=== PATIENT | male | born 1945 | race Caucasian/White ===

== ENCOUNTER → 2018-02-24 15:18 | Outpatient (CLI) | payer MEDICARE, OTHER, SELFPAY ==
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
== END ==
PROVIDERS: Family Provider Family Medicine; PCP Family Medicine; Visit Provider Surgery
DX: K22.70 Barrett's esophagus without dysplasia (principal)
CPT/HCPCS: 93005; 99213

== ENCOUNTER 2018-04-01 06:44 | Day surgery (SDC) | payer MEDICARE, OTHER, SELFPAY ==
[2018-04-01] VITALS (7 sets, daily range): BP systolic 104–139; BP diastolic 65–77; PULSE 68–78; RESP 12–16; TEMP 36.1–36.2; O2SAT 91–95; BMI 36.0
--- NOTE | 2018-04-01 | PATH_ITS ---
[facility] Accession Number: [id number] . 01 Material submitted: . PART A: ANTRUM PART B: GE JUNCTION PART C: ESOPHAGEAL LESION AT 18CM . 02 Diagnosis: A. Stomach, Antrum, Biopsy: Antral mucosa with no diagnostic abnormality. No evidence of Helicobacter on H/E stain. Negative for intestinal metaplasia. Negative for dysplasia and malignancy. . B. Gastroesophageal Junction, Biopsy: Squamocolumnar junctional mucosa with no diagnostic abnormality. Negative for intestinal metaplasia. Negative for dysplasia or malignancy. . C. Esophagus, Lesion at 18 CM, Biopsy: Squamocolumnar junctional mucosa with mild active inflammation. Negative for intestinal metaplasia. Negative for dysplasia and malignancy. [facility]/04/02/2018 . 02 Electronically signed: . Emma Lorenz MD, Pathologist NPI- [id number] . 01 Gross description: . Received are three formalin-filled containers, each labeled with the patient's name: . A. In a container labeled 1. Antrum, the specimen consists of four fragments of duran, soft tissue which range in size from less than 0.1 cm to 0.3 x 0.3 x 0.2 cm. All fragments are totally submitted in cassette A. B. In a container labeled GE junction #2, the specimen consists of multiple less than 0.1 cm to 0.3 cm portions of tissue, entirely submitted in cassette B. C. In a container labeled 3. Esophageal lesion 18 cm, the specimen consists of four pieces of tissue which range in size from 0.1 cm to 0.3 cm. The specimen is entirely submitted in cassette C. ([id number]) /FRR . 02 Pathologist provided ICD-10: R13.10 . 02 CPT . 814484, 582274, 695428 Performed at: 01 [facility] [address] [id number] MD Hipolito Estrada MD Phone: [phone] Performed at: 02 [facility] [address] [place], [place] [id number] MD Juaquin Caputo MD Phone: [phone]
--- NOTE | 2018-04-01 06:55 | P.HP_ITS ---
History of Present Illness Date Patient Seen: 04/01/18 Time Patient Seen: 06:51 Chief complaint: [id number] Narrative: 72-year-old male with history of Miller's esophagus and personal history of colon polyps now requiring surveillance for both. He was recently seen in the office on February 24, 2018. Please refer that history and physical examination as documented. It has not changed nor has his complaints. He presents now for planned EGD and colonoscopy under anesthesia. He requires anesthesia because of his significant comorbid medical conditions including significant anxiety disorder, chronic pain disorder requiring opioid dependence , and labile hypertension. Furthermore, he has failed attempts at conscious sedation in the past during endoscopy procedures. He denies any nausea or vomiting. No change in bowel habits. No melena, hematochezia, or bright red blood per rectum. Patient History Medical History Arthritis (Chronic Unknown) Chronic pain syndrome (Chronic Unknown) Depression (Chronic Unknown) Hypertension (Chronic Unknown) Impotence (Chronic Unknown) Migraines (Chronic Unknown) PTSD (post-traumatic stress disorder) (Chronic Unknown) Restless leg syndrome (Chronic Unknown) Hepatitis C (Resolved Unknown) Kidney stones (Resolved Unknown) Pneumonia (Resolved ~2018) Prostate cancer (Resolved Unknown) Skin cancer (Resolved Unknown) Surgical History History of carpal tunnel repair History of tonsillectomy Status post cholecystectomy Status post knee surgery Family & Social History Family History: Reviewed 04/01/18 by Silas Kincaid MD Tobacco & Substance use: Smoking Status Former smoker Meds Home Medications Medication Instructions Recorded Confirmed Type prednisone 20 mg PO PRN PRN #0 02/11/17 03/11/18 History ketoconazole [Nizoral] 1 [place] TOPICAL Q WEEK #120 ml 06/12/17 03/11/18 Rx albuterol sulfate 3 ml INH Q6HP PRN #90 ea 08/27/17 03/11/18 Rx fluticasone 1 spray INTRANASAL BID #1 bot 12/09/17 03/11/18 Rx benzonatate [Tessalon Perles] 100 mg PO TIDP PRN #30 cap 12/20/17 03/11/18 Rx losartan [Cozaar] 100 mg PO Q DAY #90 tab 01/21/18 03/11/18 Rx metoprolol succinate [Toprol XL] 100 mg PO QDAY #90 tab 01/21/18 03/11/18 Rx amlodipine 10 mg tablet 10 mg PO QDAY IN PM #90 tab 02/25/18 03/11/18 Rx fluoxetine 10 mg tablet 10 mg PO Q DAY #90 tab 03/11/18 Rx fluoxetine 20 mg capsule 20 mg PO QDAY #90 cap 03/11/18 Rx hydrochlorothiazide 12.5 mg capsule 12.5 mg PO DAILY #30 cap 03/11/18 Rx omeprazole 40 mg capsule,delayed 40 mg PO Q DAY #90 cap 03/11/18 Rx release oxycodone 10 mg tablet 10 mg PO Q6-8H PRN #120 tab 03/11/18 Rx beclomethasone diprop 80 1 puff INHALATION BID #10.6 gram 03/18/18 Rx mcg/actuation HFA breath activated aerosol lorazepam 1 mg tablet 0.5 - 1 mg PO BIDP PRN #30 tab 03/18/18 Rx methocarbamol 500 mg tablet 500 mg PO TIDP PRN #30 tab 03/18/18 Rx cyclobenzaprine 10 mg tablet 10 mg PO Q12H #60 tab 03/25/18 Rx Allergies Allergy/AdvReac Type Severity Reaction Status Date / Time acetaminophen [ACETAMINOPHEN] AdvReac Unknown Can't take Verified 03/11/18 15:56 r/t Hep C cyclobenzaprine AdvReac Unknown Dizziness Verified 03/11/18 15:56 [CYCLOBENZAPRINE] Review of Systems Review of Systems All systems reviewed & are unremarkable except as noted in HPI and below Exam Narrative Exam Narrative: Elderly male in no acute distress. Alert oriented x3. Moderately obese. Sclera nonicteric Chest clear to auscultation but diminished inspiratory effort Abdomen is obese but soft and nondistended Extremities show no clubbing or cyanosis Objective Labs Labs: No changes since his history physical examination of February 24, 2018 Assessment & Plan Plan: Assessment/Plan Narrative: 72-year-old male with history of Miller's esophagus and personal history of colon polyps requiring surveillance for both issues. EGD and colonoscopy are again recommended. Technical details of the procedures were discussed with the patient at length. Risks, benefits, and alternatives were reiterated. Again, these have been documented as of the history physical examination on the chart dated February 24, 2018. Bowel prep has been completed. Consent is on the chart. He requires anesthesia for the reasons given above. We will proceed today as planned.
--- NOTE | 2018-04-01 07:02 | PM.PREOP ---
Pre-operative Note Interval Note Pre-op Check: History & Physical Reviewed by Physician, Exam Performed and History & Physical exam performed today H&P completed within 30 days and has changed as indicated here:: Patient once again seen and examined. History and physical examination from February 24, 2018 has not changed. Document has been updated and placed on the chart today. Proceed with EGD and colonoscopy under anesthesia today as planned.
[2018-04-01] MEDS: LACTATED RINGERS 1,000 ML 42 ML IV (07:51)
[2018-04-01] MEDS: TETRACAINE/BENZOCAINE/BUTAMBEN (CETACAINE) BOTTLE 1 SPRAY TOP (08:11)
[2018-04-01] MEDS: LIDOCAINE 4% SOLN 50 ML TOP (08:13)
--- NOTE | 2018-04-01 09:11 | P.OP_ITS ---
Operative Date/Time/Diagnoses - Date of procedure: 04/01/18 Time of procedure: 09:05 Pre-op diagnosis: History of Miller's esophagus, progressive reflux symptoms, and personal history colon polyps requiring surveillance Post-op diagnosis: other (1. Mild gastritis and esophagitis 2. Normal colon and rectum) Procedure & Clinicians Procedure: 1. Esophagogastroduodenoscopy with cold forceps biopsies 2. Colonoscopy Same procedure as scheduled: Yes Indications: 72-year-old male with history of Miller's esophagus and reflux disease now with progressive heartburn symptoms. He also has a personal history of colon polyps. He was recommended to undergo surveillance for both issue since it has been a number of years from his prior examination. EGD and colonoscopy were recommended. Because of his significant comorbid medical conditions including chronic opioid dependence for pain syndrome and prior failure of conscious sedation he required anesthesia services for the procedure. Surgeon: Silas Kincaid Click Yes if Unassisted: Yes Anesthesia Type: General Operative Notes Findings: 1. Mild diffuse gastritis of the antrum and pyloric channel 2. Normal duodenum without ulcers, STRICTURE, OR DUODENITIS 3. Mild esophagitis at the gastroesophageal junction but no obvious neoplasm or Miller's esophagus 4. Z-line located at 38 cm from the incisors 5. Small superficially ulcerated lesion 18 cm from the incisors at the mid esophagus. Biopsies performed. 6. Very small hiatal hernia, clinically insignificant 7. Tortuous colon but otherwise normal without evidence of colitis, strictures , or neoplastic changes of any kind including polyps 8. Normal internal hemorrhoids on retroflexed view Closure Type: not applicable Specimen(s): other (1. Antral biopsies 2. Gastroesophageal junction biopsies 3. Esophageal lesion at 18 cm) Implants & Drains: None Estimated Blood Loss (mL): 5 Blood products transfused: none Procedure in detail: After obtaining informed consent the patient was brought to the operating room and left supine on the gurney. Anesthesia was performed. Please see their record for details. Patient was placed in left lateral decubitus position after the oropharynx was anesthetized and a bite block was inserted. Gastroscope was placed over the tongue to the oropharynx and the upper esophageal sphincter was identified and easily intubated. Under direct visualization of the esophageal lumen the scope was advanced into the stomach which was insufflated with air. Pylorus was grossly normal and widely patent. Duodenum was easily examined after intubating the pylorus. Scope was advanced to the distal 2nd portion. Scope was slowly withdrawn and the duodenum was meticulously and circumferentially examined. Scope was withdrawn back into the stomach where retroflexed view was performed. Findings are as above. Stomach was decompressed with suction as much as possible. Scope was withdrawn back into the esophagus which was meticulously and circumferentially examined as the scope was slowly withdrawn. Biopsies were taken as above. Hemostasis was verified. Scope was removed through the mouth and a bite block was removed as well. This portion of the procedure was terminated. Digital rectal examination revealed no masses. Colonoscope was inserted into the rectum and the bowel was insufflated with air. Under direct visualization of the colonic lumen the scope was advanced to the cecum where the appendiceal orifice and ileocecal valve were identified. Scope was slowly withdrawn and the bowel was meticulously and circumferentially examined. Bowel preparation was good. Findings are as above. Retroflexed view of the distal rectum and anus revealed no neoplasms. Scope was withdrawn and the procedure terminated. Patient taken recovery in stable condition. Complications: none Condition: stable Disposition: PACU Plan for aftercare: 1. Discharge to home 2. Follow up in surgery Clinic in 2 weeks to discuss findings and biopsy results
== END 2018-04-01 09:38 | disposition home or self-care (01) ==
PROVIDERS: Family Provider Family Medicine; PCP Family Medicine; Visit Provider Surgery
PROC: 0DJ08ZZ Inspection of Upper Intestinal Tract, Via Natural or Artificial Opening Endoscopic (ICD-10-PCS; CPT 43235; principal; 2018-04-01 07:45)
PROC: 0DJD8ZZ Inspection of Lower Intestinal Tract, Via Natural or Artificial Opening Endoscopic (ICD-10-PCS; CPT 45378; 2018-04-01 07:45)
DX: Z86.010 Personal history of colon polyps (principal); Z87.19 Personal history of other diseases of the digestive system; K29.70 Gastritis, unspecified, without bleeding; K44.9 Diaphragmatic hernia without obstruction or gangrene; K20.9 Esophagitis, unspecified; F11.20 Opioid dependence, uncomplicated; G89.4 Chronic pain syndrome
CPT/HCPCS: 43239; G0105; J2250; J2704; J3010

== ENCOUNTER → 2018-05-12 06:55 | Outpatient (CLI) | payer MEDICARE, OTHER, SELFPAY ==
[2018-05-12 09:30] LABS: Hemoglobin A1C% w Est Avg Glu 5.2 % (4.0-6.0)
[2018-05-12 09:34] LABS: Alanine Aminotransferase 30 IU/L (21-72); Albumin 4.2 g/dL (3.5-5.0); Albumin Globulin Ratio 1.7 (1.0-2.8); Alkaline Phosphatase 76 U/L (38-126); Aspartate Aminotransferase 26 IU/L (17-59); BUN Creatinine Ratio 18.8 (6-22); Bilirubin Total 0.4 mg/dL (0.2-1.3); Blood Urea Nitrogen 15 mg/dL (9-20); Carbon Dioxide 35 mmol/L (22-32); Chloride 98 mmol/L (98-107); Estimated Glomerular Filt Rate > 60.0 mL/min (>60); Globulin 2.5 g/dL (1.7-4.1); Glucose 98 mg/dL (80-110); HEMOLYSIS < 15 (0-50); Potassium 5.1 mmol/L (3.4-5.1); Sodium 140 mmol/L (137-145); Total Protein 6.7 g/dL (6.3-8.2)
== END ==
PROVIDERS: PCP Family Medicine; Visit Provider Family Medicine
DX: R73.9 Hyperglycemia, unspecified (principal)
CPT/HCPCS: 36415; 80053; 83036

== ENCOUNTER 2018-09-12 19:46 | Emergency (ER) | payer MEDICARE, OTHER, SELFPAY ==
[2018-09-12 19:56] VITALS: BP 117/71; PULSE 92; RESP 18; TEMP 36.3; O2SAT 94; BMI 36.0
[2018-09-12 22:06] VITALS: PULSE 72
--- NOTE | 2018-09-12 22:10 | PC.NURSE ---
Pt reports 30 year Hx of RA with multiple joint replacements. He states he went to RA clinic today and was refereed to urgent care. Urgent care states they don't do injections and returned to RA clinic. RA clinic refereed him to ER. He presents tearful and guarding left hand/wrist. Denies other symptoms at this time.
--- NOTE | 2018-09-12 22:29 | ED.EXTPRO ---
HPI - Extremity Problem General Chief complaint: Extremity Problem,Nontraumatic Stated complaint: RA PAIN LEFT HAND AND ARM Time Seen by Provider: 09/12/18 21:59 Source: patient Mode of arrival: ambulatory Limitations: no limitations History of Present Illness HPI Narrative: Patient is a 72-year-old male who presents with left hand pain. He has a history of rheumatoid arthritis right is. He says usually when he gets flares he takes prednisone for 5 days. He usually 20 mg however he only had a now for 1 and half days. His pain today is gotten significantly worse. He has no fever. He went to his rheumatology clinic today were unable to see him he was sent to the walk-in clinic for a wrist injection unfortunately they do not inject wrist or joints. He also all weaned himself off Suboxone 2 weeks ago. MD Complaint: extremity pain and extremity swelling Related Data Home Medications Medication Instructions Recorded Confirmed prednisone 20 mg PO PRN PRN #0 02/11/17 07/22/18 Previous Rx's Medication Instructions Recorded albuterol sulfate 3 ml INH Q6HP PRN #90 ea 08/27/17 benzonatate [Tessalon Perles] 100 mg PO TIDP PRN #30 cap 12/20/17 fluoxetine 10 mg tablet 10 mg PO Q DAY #90 tab 03/11/18 beclomethasone diprop 80 1 puff INHALATION BID #10.6 gram 03/18/18 mcg/actuation HFA breath activated aerosol fluticasone 50 mcg/actuation nasal 1 spray INTRANASAL BID #1 bot 06/09/18 spray,suspension ketoconazole 2 % shampoo 1 applictn TOPICAL Q WEEK #120 ml 06/09/18 losartan 100 mg tablet 100 mg PO Q DAY #90 tab 07/15/18 metoprolol succinate ER 100 mg 100 mg PO QDAY #90 tab 07/15/18 tablet,extended release 24 hr amlodipine 10 mg tablet 10 mg PO QDAY IN PM #90 tab 08/27/18 hydrochlorothiazide 12.5 mg capsule 12.5 mg PO DAILY #90 cap 08/27/18 fluoxetine 20 mg capsule 20 mg PO QDAY #90 cap 09/08/18 lorazepam 1 mg tablet 0.5 - 1 mg PO DAILY PRN #30 tab 09/08/18 methocarbamol 500 mg tablet 500 mg PO TIDP PRN #40 tab 09/08/18 omeprazole 40 mg capsule,delayed 40 mg PO Q DAY #90 cap 09/08/18 release oxycodone 10 mg tablet 10 mg PO Q6-8H PRN #120 tab 09/08/18 prednisone 20 mg PO DAILY #10 tab 09/12/18 Allergies Allergy/AdvReac Type Severity Reaction Status Date / Time cyclobenzaprine Allergy Verified 09/12/18 19:58 [From Flexeril] acetaminophen [ACETAMINOPHEN] AdvReac Unknown Can't take Verified 09/12/18 19:58 r/t Hep C Review of Systems Review of Systems All systems reviewed & are unremarkable except as noted in HPI and below Constitutional Denies chills, Denies fever(s), Denies lethargy and Denies weakness Cardiovascular Denies chest pain, Denies irregular heart rhythm, Denies lightheadedness, Denies palpitations, Denies dyspnea, Denies dyspnea on exertion and Denies orthopnea Respiratory Denies cough, Denies dyspnea, Denies dyspnea on exertion and Denies wheezing Musculoskeletal Reports as per HPI, Reports arthralgias, Reports joint swelling, Denies numbness and Reports stiffness Integumentary/Breasts Denies pruritus, Denies erythema, Denies rash and Denies wounds Neurologic Denies numbness and Denies weakness Endocrine Denies palpitations Allergic/Immunologic Denies wheezing [facility] Medical History Arthritis (Chronic Unknown) Chronic pain syndrome (Chronic Unknown) Depression (Chronic Unknown) Hypertension (Chronic Unknown) Impotence (Chronic Unknown) Migraines (Chronic Unknown) PTSD (post-traumatic stress disorder) (Chronic Unknown) Restless leg syndrome (Chronic Unknown) Hepatitis C (Resolved Unknown) Kidney stones (Resolved Unknown) Pneumonia (Resolved ~2017) Prostate cancer (Resolved Unknown) Skin cancer (Resolved Unknown) Surgical History History of back surgery (Resolved) History of lumbar fusion (Resolved) Hx of foot surgery (Resolved) Hx of joint replacement (Resolved) Hx of laminectomy (Resolved 10/2012) History of carpal tunnel repair History of tonsillectomy Status post cholecystectomy Status post knee surgery Family History Father Heart disease Mother No problems noted. Social History household members: spouse Smoking Status: Former smoker Tobacco: How many years used: 20 alcohol intake: never Exam Initial Vital Signs Initial Vital Signs: Vital Signs Temperature 97.3 F L 09/12/18 19:56 Pulse Rate 92 H 09/12/18 19:56 Respiratory Rate 18 09/12/18 19:56 Blood Pressure 117/71 09/12/18 19:56 Pulse Oximetry 94 09/12/18 19:56 GENERAL: Elderly male appears in pain HEENT: Head atraumatic,EOMI, pupils reactive, face symmetric, CARDIOVASCULAR: Regular rate and rhythm without murmurs, rubs or gallops. RESPIRATORY: Breath sounds equal bilaterally, no wheezes rales or rhonchi. ABDOMEN: Soft, nontender. Normoactive bowel sounds all 4 quadrants. No guarding or rebound. EXTREMITIES: Normal range of motion, no clubbing or edema. Neurovascularly intact Left hand joints are minimally swollen but not erythematous pain to light touch NEUROLOGICAL: Alert and oriented x4.Normal gait and speech. Cranial nerves II through XII grossly intact. SKIN: Warm, dry, no laceration, no petechiae, no rashes or lesions. Course Orders Ordered: Discontinued Medications Ketorolac Tromethamine (Toradol) 30 mg IM NOW ONE Stop: 09/12/18 22:29 Last Admin: 09/12/18 22:34 Dose: 30 mg Ketorolac Tromethamine (Toradol 10mg Prepack) 1 bottle MISC SEEINSTR ONE Stop: 09/12/18 22:56 Last Admin: 09/12/18 23:15 Dose: 1 bottle Prednisone (Deltasone) 20 mg PO NOW ONE Stop: 09/12/18 22:29 Last Admin: 09/12/18 22:34 Dose: 20 mg Vital Signs - 8 hr 09/12/18 19:56 09/12/18 22:06 09/12/18 23:32 Temperature 97.3 F L Pulse Rate 92 H 87 Pulse Rate [Left Radial] 72 Respiratory Rate 18 Blood Pressure 117/71 156/76 H Pulse Oximetry 94 95 MDM - Extremity (Nontraumatic) MDM Narrative Medical decision making narrative: Patient is not wanting any narcotic medication. That he has an clearly quite a bit of pain I suspect pain is increased also from recent termination of Suboxone use. He is wanting a Toradol to come home with. A do not believe of joint is septic it is non erythematous is no fever, this is likely rheumatoid arthritis flare. Discharge Plan Departure Patient Disposition: Home Clinical Impression: Rheumatoid arthritis flare Discharge Date/Time: 09/12/18 23:32 Interventions: ED Discharge Assessment Last Done: 09/12/18 23:32 Instructions: DI for Rheumatoid Arthritis Activity Restrictions/Additional Instructions: *You have been diagnosed with rheumatoid arthritis flare -prednisone and NSAIDs can be hard on her stomach be sure to take with food *Continue to take medications as directed FAXED TO [facility] Prednisone 20 mg once a day for 5 days KETOROLAC 10 MG EVERY 8 HR-DO NOT TAKE UNTIL 6:30 A.M. 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 *Return to ER if you should have fever, redness, increasing or any new, worsening or concerning symptoms Prescriptions: New prednisone 10 mg tablet 20 mg PO DAILY Qty: 10 RF: 0 No Action fluoxetine 10 mg tablet 10 mg PO Q DAY Qty: 90 RF: 3 prednisone 20 MG tablet 20 mg PO PRN PRN (Reason: dandruff) Qty: 0 RF: 0 albuterol sulfate 2.5 MG/3 ML solution for nebulization 3 ml INH Q6HP PRNQty: 90 RF: 1 benzonatate [Tessalon Perles] 100 MG capsule 100 mg PO TIDP PRNQty: 30 RF: 0 beclomethasone dipropionate [Qvar RediHaler] 80 mcg/actuation HFA aerosol breath activated 1 puff INHALATION BID Qty: 10.6 RF: 6 ketoconazole [Nizoral] 2 % shampoo 1 applictn Topical Q WEEK Qty: 120 RF: 1 fluticasone 50 mcg/actuation spray,suspension 1 spray Intranasal BID Qty: 1 RF: 3 metoprolol succinate [Toprol XL] 100 mg tablet extended release 24 hr 100 mg PO QDAY Qty: 90 RF: 0 losartan [Cozaar] 100 mg tablet 100 mg PO Q DAY Qty: 90 RF: 0 amlodipine 10 mg tablet 10 mg PO QDAY IN PM Qty: 90 RF: 1 hydrochlorothiazide 12.5 mg capsule 12.5 mg PO DAILY Qty: 90 RF: 1 omeprazole 40 mg capsule,delayed release(DR/EC) 40 mg PO Q DAY Qty: 90 RF: 1 fluoxetine 20 mg capsule 20 mg PO QDAY Qty: 90 RF: 1 methocarbamol 500 mg tablet 500 mg PO TIDP PRN (Reason: muscle spasm) Qty: 40 RF: 0 oxycodone 10 mg tablet 10 mg PO Q6-8H PRN (Reason: chronic pain) Qty: 120 RF: 0 lorazepam 1 mg tablet 0.5 - 1 mg PO DAILY PRN (Reason: anxiety) Qty: 30 RF: 0
[2018-09-12] MEDS: predniSONE 20 MG TABLET PO (22:34)
[2018-09-12] MEDS: KETOROLAC 60 MG/2 ML VIAL 30 MG IM (22:34)
[2018-09-12] MEDS: KETOROLAC 10MG PREPACK 1 BOTTLE MISC (23:15)
[2018-09-12 23:32] VITALS: BP 156/76; PULSE 87; O2SAT 95
== END 2018-09-12 23:32 | disposition home or self-care (01) ==
PROVIDERS: Emergency Provider Emergency Medicine; Family Provider Family Medicine; PCP Family Medicine
DX: M06.9 Rheumatoid arthritis, unspecified (principal)
CPT/HCPCS: 99282; 99283; J1885

== ENCOUNTER → 2018-10-24 12:35 | Outpatient (CLI) | payer MEDICARE, OTHER, SELFPAY ==
--- NOTE | 2018-10-24 12:37 | DI.RAD.S_ITS ---
PROCEDURE: XR CHEST 2V INDICATIONS: cough TECHNIQUE: 2 views of the chest were acquired. COMPARISON: [facility], CR, XR CHEST 2 VIEWS, 07/23/2018, 10:53. FINDINGS: Surgical changes and devices: Postoperative changes of the right shoulder are evident. Lungs and pleura: No pleural effusions or pneumothorax. Lungs are clear. There may be a calcified granuloma the right lung base, unchanged. Mediastinum: Mediastinal contours are normal. Heart size is normal. Bones and chest wall: No suspicious bony abnormalities. Soft tissues appear unremarkable. IMPRESSION: Stable chest. No acute cardiopulmonary process is evident. Dictated by: Jef Aguilar M.D. on 10/24/2018 at 12:34 Approved by: Jef Aguilar M.D. on 10/24/2018 at 12:34
== END ==
PROVIDERS: PCP Family Medicine; Visit Provider Physician Assistant
DX: R05 Cough (principal)
CPT/HCPCS: 71046

== ENCOUNTER → 2019-06-04 11:31 | Outpatient (CLI) | payer MEDICARE, OTHER, SELFPAY ==
--- NOTE | 2019-06-04 | DI.MRI.S_ITS ---
PROCEDURE: MR LUMBAR SPINE WO CON INDICATIONS: Low back pain TECHNIQUE: Noncontrast sagittal T1 spin echo and T2 fast echo, sagittal STIR, axial T1 and T2 fast spin echo through the lumbar spine. In cases with scoliosis, additional coronal T2 fast spin echo may be performed. COMPARISON: [facility], MR, L-SPINE W&WO CONTRAST, 12/03/2012, 13:52. [facility], MR, L-SPINE WITHOUT CONTRAST, 08/13/2012, 14:28. FINDINGS: Image quality: Excellent. Alignment and Curvature: There is grade I L1 on L2 retrolisthesis which is unchanged in extent when compared with the MRI dated 12/03/12. Bone Marrow: Marrow is of normal overall signal. Multiple intraoperative hemangiomas are redemonstrated within the lumbar spine. No acute vertebral body compression fractures. Spinal Cord: Conus medullaris terminates at the T12 level. Visualized cord demonstrates normal signal and size. Paraspinous Soft Tissues: No paravertebral masses. L1-L2: Severe disc desiccation and height loss. Retrolisthesis. Moderate facet and ligamentum flavum hypertrophy. Mild canal stenosis. Severe bilateral neuroforaminal narrowing. The extent of neuroforaminal stenosis is increased when compared with the prior MRI dated 12/03/12. L2-L3: Mild disc desiccation and height loss. Broad-based disc bulge. Broad-based right paracentral disc bulge which is unchanged. Mild canal stenosis. Mild bilateral neuroforaminal narrowing. These findings are similar to the prior comparison from 2012. Severe facet and ligamentum flavum hypertrophy. L3-L4: Moderate disc desiccation and height loss. Inferior L3 endplate Schmorl's node. Severe facet and ligamentum flavum hypertrophy. There is a 0.7 x 0.9 x 0.8 cm left paracentral disc protrusion. Mild narrowing of the left lateral recess. No canal stenosis. Mild bilateral neuroforaminal stenosis. L4-L5: Disc height is preserved. Broad-based disc bulge. Moderate facet and ligamentum flavum hypertrophy. No canal stenosis. Mild right foraminal narrowing. No left neuroforaminal stenosis. No interval change. L5-S1: Disc height is preserved. No canal stenosis. Severe facet and ligamentum flavum hypertrophy. Moderate right and severe left foraminal stenosis. These findings are similar to the prior study. IMPRESSION: 1. New subcentimeter left paracentral disc protrusion at L3-4 when compared with the prior MRI from 2013. There is mild narrowing of the left lateral recess. No canal stenosis. 2. Severe bilateral foraminal stenosis at L1-L2 which is increased when compared with the study from 2013. 3. Severe left foraminal stenosis at L5-S1 which is similar in extent to the prior study. 4. Mild canal stenosis at L1-2 and L2-3, similar in extent to the prior study secondary to broad-based disc bulges. Dictated by: Tari Chow M.D. on 06/04/2019 at 14:55 Approved by: Tari Chow M.D. on 06/04/2019 at 15:04
== END ==
PROVIDERS: Family Provider Family Medicine; PCP Family Medicine; Visit Provider Orthopaedic Surgery
DX: M48.061 Spinal stenosis, lumbar region without neurogenic claudication (principal)
CPT/HCPCS: 72148

== ENCOUNTER 2020-01-14 04:46 | Emergency (ER) | payer MEDICARE, OTHER, SELFPAY ==
[2020-01-14 04:55] VITALS: BP 159/71; PULSE 80; RESP 20; TEMP 36.6; O2SAT 97
[2020-01-14 05:12] VITALS: PULSE 82; RESP 20; O2SAT 96
[2020-01-14] MEDS: ALBUTEROL HFA 60 PUFF/8 GM INH 6 PUFF INH (05:13)
--- NOTE | 2020-01-14 05:14 | DI.RAD.S_ITS ---
PROCEDURE: XR CHEST 1V INDICATIONS: Shortness of breath TECHNIQUE: One view of the chest was acquired. COMPARISON: [facility], CT, CT CHEST WO CON, 01/14/2020, 5:48. [facility], CR, XR CHEST 2V, 10/24/2018, 12:40. [facility], CR, CHEST 2 VIEW, 11/21/2017, 9:30. FINDINGS: Surgical changes and devices: None. Lungs and pleura: Lungs are clear except for previously present small calcified granulomas within the right lower lobe and at the left lung base. No pleural effusions or pneumothorax. Mediastinum: Mediastinal contours appear normal. Heart size is normal. Bones and chest wall: No suspicious bony lesions. Overlying soft tissues appear unremarkable. IMPRESSION: Normal for age except for old calcified small granulomas bilaterally, source of current shortness of breath symptoms is not seen. Dictated by: Manjinder Rios M.D. on 01/14/2020 at 8:22 Approved by: Manjinder Rios M.D. on 01/14/2020 at 8:25
[2020-01-14 05:38] VITALS: BP 159/74; PULSE 81; RESP 20; O2SAT 98
--- NOTE | 2020-01-14 05:40 | DI.CT.S_ITS ---
PROCEDURE: CT CHEST WO CON INDICATIONS: Shortnessof breath, cough, fever, travel TECHNIQUE: Noncontrast 5 mm thick sections acquired from the pulmonary apices to the posterior costophrenic angles. 1 mm lung window, 5 mm thick coronal and sagittal and 7 mm axial MIP reformats were then acquired. For radiation dose reduction, the following was used: automated exposure control, adjustment of mA and/or kV according to patient size. COMPARISON: None. FINDINGS: Image quality: Excellent. Lungs and pleura: No acute air space opacities. There are several scattered bilateral calcified granulomas and no evidence of alveolitis or consolidative pneumonia. No pleural effusions or pneumothorax. Central and peripheral airways are patent and normal in caliber. Mediastinum: Heart size is normal. No pericardial effusion. No mediastinal adenopathy by size criteria. Old calcified granulomatous disease is present, mild to moderate in severity, within the mediastinal and hilar lymph nodes. Thoracic aorta and central pulmonary arteries are normal in size. Esophagus is normal in caliber. No hiatal hernia. Bones and chest wall: No suspicious bony lesions. No vertebral body compression fractures. No axillary or supraclavicular adenopathy by size criteria. Thyroid gland is not well seen by this noncontrast technique but appears normal where well visualized. Abdomen: Visualized upper abdominal solid organs and bowel loops appear normal in the absence of contrast except for scattered punctate calcified granulomas within the spleen. IMPRESSION: No sign of acute atypical pneumonia, consolidative focal pneumonia, or other such etiology of shortness of breath. Old granulomatous disease as noted. Dictated by: Manjinder Rios M.D. on 01/14/2020 at 8:29 Approved by: Manjinder Rios M.D. on 01/14/2020 at 8:32
[2020-01-14 05:55] LABS: Add Manual Diff / Slide Review NO; Basophils Absolute Auto 0 /uL (0-100); Basophils Percent Auto 0.5 % (0-2); Eosinophils Absolute Auto 300 /uL (0-450); Eosinophils Percent Auto 3.5 % (2-4); Hematocrit 33.2 % (41-53); Hemoglobin 11.2 g/dL (13.5-17.5); Lymphocytes Absolute Auto 1400 /uL (1100-4500); Lymphocytes Percent Auto 19.9 % (25-40); Mean Corpuscular HGB Conc 33.7 % (30-36); Mean Corpuscular Hemoglobin 28.5 PG (26-34); Mean Corpuscular Volume 84.4 fL (80-100); Monocytes Absolute Auto 1200 /uL (0-900); Monocytes Percent Auto 15.9 % (3-14); Neutrophils Absolute Auto 4400 /uL (1500-7000); Neutrophils Percent Auto 60.2 % (50-75); Platelet Count 212 X10^3/uL (150-400); Red Blood Cell Count 3.93 X10^6/uL (4.5-5.9); Red Cell Distribution Width 14.6 % (11.6-14.8); White Blood Cell Count 7.2 X10^3/uL (4.5-11.0)
[2020-01-14 06:07] LABS: BUN Creatinine Ratio 23.4 (6-22); Blood Urea Nitrogen 18 mg/dL (9-20); C-Reactive Protein Quant 3.6 mg/dL (<1.0); Calcium 8.8 mg/dL (8.4-10.2); Carbon Dioxide 31 mmol/L (22-32); Chloride 100 mmol/L (98-107); Estimated Glomerular Filt Rate > 60.0 mL/min (>60); Glucose 113 mg/dL (80-110); HEMOLYSIS < 15 (0-50); Potassium 3.6 mmol/L (3.4-5.1); Sodium 140 mmol/L (137-145)
--- NOTE | 2020-01-14 06:13 | ED_ITS ---
HPI - URI/Sore Throat General Chief Complaint: Upper Respiratory Symptoms Stated Complaint: chronic asthma Time Seen by Provider: 01/14/20 05:13 Source: patient Mode of arrival: Ambulatory Limitations: no limitations History of Present Illness HPI Narrative: [age] year old male, former smoker with history of hypertension and asthma presents with his in the chief complaint of worsening shortness of breath, wheeze, cough over the past few days. He states he had a fever about 1 week ago. He denies any ongoing fever or exposure to persons under a suspicion for COVID-19. He denies any headache, sore throat or chest pain. He has had no nausea, vomiting or diarrhea. He recently was on a long road trip in [place], [place]. Complaint: fever, cough and nasal congestion Onset (ago): day(s) Duration: constant Severity: moderate Relieving factors: nothing Exacerbating factors: nothing Description of mucous: yellow Able to tolerate fluids by mouth: Yes Context: recent travel Treatments prior to arrival: none Related Data Home Medications Medication Instructions Recorded Confirmed aspirin 81 mg tablet,delayed 81 mg PO DAILY 07/02/19 11/13/19 release Previous Rx's Medication Instructions Recorded adjuvant AS01B (PF)vial 1 of 2 0.5 ml IM ONCE #0.5 ml 09/29/18 albuterol sulfate 2.5 mg CONTINUOUS NEBULIZATION 11/16/19 Q6HP PRN #90 each amlodipine 10 mg tablet 10 mg PO QDAY IN PM #90 tab 11/16/19 fluticasone propionate 50 1 spray INTRANASAL BID #1 bot 11/16/19 mcg/actuation nasal spray,suspension hydrochlorothiazide 12.5 mg capsule 12.5 mg PO DAILY #90 cap 11/16/19 losartan 100 mg tablet 100 mg PO DAILY #90 tab 11/16/19 metoprolol succinate 100 mg See Rx Instructions .ROUTE 11/16/19 tablet,extended release 24 hr .COMPLEX #90 tablet omeprazole 40 mg capsule,delayed 40 mg PO Q DAY #90 cap 11/16/19 release albuterol sulfate 90 mcg/actuation 1 inh INHALATION Q4-6H PRN #18 gram 11/20/19 aerosol inhaler fluoxetine 10 mg capsule 10 mg PO DAILY #90 cap 01/08/20 fluoxetine 20 mg capsule 20 mg PO QDAY #90 cap 01/08/20 oxycodone 10 mg tablet 10 mg PO Q6-8H PRN #120 tab 01/08/20 pregabalin 50 mg capsule 50 mg PO BID #180 cap 01/08/20 azithromycin See Rx Instructions .ROUTE 01/14/20 .COMPLEX #6 tab Allergies Allergy/AdvReac Type Severity Reaction Status Date / Time cyclobenzaprine Allergy Verified 11/13/19 10:21 [From Flexeril] acetaminophen [ACETAMINOPHEN] AdvReac Unknown Can't take Verified 11/13/19 10:21 r/t Hep C Review of Systems Constitutional Constitutional: Denies chills, Denies fatigue, Reports fever(s), Denies frequent falls, Denies lethargy and Denies weakness Eyes Eyes: Denies change in vision, Denies eye discharge, Denies irritation and Denies loss of vision ENT Ears, Nose, Mouth, and Throat: Denies change in voice, Denies dizziness, Denies neck pain, Denies sore throat and Denies throat swelling Cardiovascular Cardiovascular: Denies chest pain, Denies irregular heart rhythm, Denies lightheadedness, Denies palpitations, Reports dyspnea, Reports dyspnea on exertion and Denies orthopnea Respiratory Respiratory: Reports cough, Reports dyspnea, Reports dyspnea on exertion and Reports wheezing Gastrointestinal Gastrointestinal: Denies abdominal pain, Denies change in bowel habits, Denies diarrhea, Denies nausea and Denies vomiting Genitourinary Genitourinary: Denies hematuria, Denies flank pain, Denies urinary incontinence and Denies urinary urgency Musculoskeletal Musculoskeletal: Denies back pain, Denies muscle weakness, Denies neck pain, Denies numbness and Denies tingling Integumentary/Breasts Skin/Breast: Denies pruritus, Denies erythema, Denies rash and Denies wounds Neurologic Neurologic: Denies behavioral changes, Denies confusion, Denies dizziness, Denies frequent falls, Denies loss of vision, Denies numbness, Denies tingling and Denies weakness Psychiatric Psychiatric: Denies anxiety, Denies behavioral changes, Denies confusion, Denies depression, Denies homicidal ideation and Denies suicidal ideation Endocrine Endocrine: Denies fatigue, Denies flushing and Denies palpitations Hematologic/Lymphatic Hematologic/Lymphatic: Denies easy bruising Allergic/Immunologic Allergic/Immunologic: Denies urticaria, Denies throat swelling and Reports wheezing Patient History Medical History Arthritis (Chronic Unknown) Chronic pain syndrome (Chronic Unknown) Depression (Chronic Unknown) Hepatitis C (Resolved Unknown) Hypertension (Chronic Unknown) Impotence (Chronic Unknown) Kidney stones (Resolved Unknown) Migraines (Chronic Unknown) Pneumonia (Resolved ~2018) Prostate cancer (Resolved Unknown) PTSD (post-traumatic stress disorder) (Chronic Unknown) Restless leg syndrome (Chronic Unknown) Skin cancer (Resolved Unknown) Surgical History History of back surgery (Resolved) History of carpal tunnel repair History of lumbar fusion (Resolved) History of tonsillectomy Hx of foot surgery (Resolved) Hx of joint replacement (Resolved) Hx of laminectomy (Resolved 10/2012) Status post cholecystectomy Status post knee surgery Family History Father Heart disease Mother No problems noted. Social History household members: spouse Smoking Status: Former smoker Tobacco: How many years used: 20 quit status: has quit before alcohol intake: former substance use type: former substance user and marijuana Smoking Status: Former smoker Substance Use Type: does not use Exam Narrative Exam Narrative: GENERAL: [74] year old patient appears stated age. Well- nourished, well-developed patient, in mild distress. HEAD: Atraumatic. Normocephalic. EYES: Pupils equal round and reactive. Extraocular motions intact. No scleral icterus. No injection or drainage. ENT: Nose without bleeding, purulent drainage. Throat without erythema, tonsillar hypertrophy or exudate. Airway patent. NECK: Trachea midline. Non tender CARDIOVASCULAR: Regular rate and rhythm without murmurs, gallops, or rubs. RESPIRATORY: Decreased breath sounds with bilateral expiratory wheeze, no crackles, no rhonchi GASTROINTESTINAL: Abdomen soft, non-tender, nondistended. EXTREMITIES: No edema or joint tenderness. BACK: Nontender without deformity or crepitance. No flank tenderness. NEURO: AOx3. SKIN: No rash or erythema of visible areas Initial Vital Signs Initial Vital Signs: Vital Signs Temperature 97.9 F 01/14/20 04:55 Pulse Rate 80 01/14/20 04:55 Respiratory Rate 20 01/14/20 04:55 Blood Pressure 159/71 H 01/14/20 04:55 Pulse Oximetry 97 01/14/20 04:55 Course Orders Ordered: Discontinued Medications Albuterol (Ventolin Hfa) 6 puff INH NOW ONE Stop: 01/14/20 05:11 Last Admin: 01/14/20 05:13 Dose: 6 puff Documented by: KENNY Reevaluation(s) Reevaluation #1: near complete resolution of symptoms after the above stated therapies Vital Signs Vital signs: Vital Signs - 8 hr 01/14/20 04:55 01/14/20 05:12 01/14/20 05:38 Temperature 97.9 F Pulse Rate 80 82 81 Respiratory Rate 20 20 20 Blood Pressure 159/71 H Blood Pressure [Left Arm] 159/74 H Pulse Oximetry 97 96 98 01/14/20 06:38 Temperature Pulse Rate 84 Respiratory Rate 18 Blood Pressure 159/69 H Blood Pressure [Left Arm] Pulse Oximetry 98 MDM - URI/Sore Throat Lab Data Result diagrams: 01/14/20 05:35 01/14/20 05:35 Labs: Lab Results 01/14/20 01/14/20 01/14/20 Range/Units 05:35 05:35 05:35 WBC 7.2 (4.5-11.0) X10^3/uL RBC 3.93 L (4.5-5.9) X10^6/uL Hgb 11.2 L (13.5-17.5) g/dL Hct 33.2 L (41-53) % MCV 84.4 (80-100) fL MCH 28.5 (26-34) PG MCHC 33.7 (30-36) % RDW 14.6 (11.6-14.8) % Plt Count 212 (150-400) X10^3/uL Neut % (Auto) 60.2 (50-75) % Lymph % (Auto) 19.9 L (25-40) % Archuleta % (Auto) 15.9 H (3-14) % Eos % (Auto) 3.5 (2-4) % Baso % (Auto) 0.5 (0-2) % Neut # (Auto) 4400 (0683-3241) /uL Lymph # (Auto) 1400 (9595-8146) /uL Archuleta # (Auto) 1200 H (0-900) /uL Eos # (Auto) 300 (0-450) /uL Baso # (Auto) 0 (0-100) /uL Sodium 140 (137-145) mmol/L Potassium 3.6 (3.4-5.1) mmol/L Chloride 100 (98-107) mmol/L Carbon Dioxide 31 (22-32) mmol/L BUN 18 (9-20) mg/dL Creatinine 0.77 (0.66-1.25) mg/dL Estimated GFR > 60.0 (>60) mL/min BUN/Creatinine Ratio 23.4 H (6-22) Glucose 113 H (80-110) mg/dL Calcium 8.8 (8.4-10.2) mg/dL Ferritin 31 (18-464) ng/mL C-Reactive Protein 3.6 H (<1.0) mg/dL Procalcitonin < 0.05 (<0.5) ng/mL Imaging Data Chest x-ray: Attestation: I personally reviewed and interpreted this imaging study as follows: My Impression: [facility] CT scan - chest: Radiologist's Impression: NAP Discharge Plan Departure Patient Disposition: Home Clinical Impression: Atypical pneumonia Asthma exacerbation Qualifiers: Asthma severity: mild Asthma persistence: intermittent Qualified Code(s): J45.21 - Mild intermittent asthma with (acute) exacerbation Discharge Date/Time: 01/14/20 06:40 Instructions: DI for Atypical Pneumonia Activity Restrictions/Additional Instructions: *You have been diagnosed with [ atypical pneumonia, which based on your symptoms, labs and imaging is suspicious for coronavirus] *What to do: *Take medications as directed: Your antibiotics [facility] to [facility] at your request * per recommendations from the CDC and the [facility] Department of Health * stay home except to get medical care. Restrict activities outside your home, except for getting medical care. Do not go to work, school, or public areas. Avoid using public transportation, ride sharing, or taxis. * separate yourself from other people in your home. * call ahead before visiting your doctor * Wear a facemask * Cover your coughs and sneezes * Clean your hands often * Avoid sharing household items * Clean all high-touch services every day * Monitor your symptoms and seek prompt medical attention if your illness is worsening, particularly with difficulty in breathing. Discussed continuing home isolation * for individuals with symptoms who are confirmed or suspected cases of COVID-19 and are directed to care for themselves at home, discontinue home isolation under the following conditions: 1. At least 72 hours have passed since recovery, defined as resolution of fever without the use of fever reducing medications, and improvement in respiratory symptoms (cough, shortness of breath) AND, 2. At least 7 days have passed since symptoms 1st appeared Individuals with laboratory confirmed COVID-19 who have not had any symptoms may discontinue home isolation when at least 7 days have passed since the date of their 1st COVID-19 diagnostic test and have had no subsequent illness Prescriptions: New azithromycin 250 mg tablet See Rx Instructions .ROUTE .COMPLEX Qty: 6 RF: 0 No Action adjuvant AS01B (PF)vial 1 of 2 [Shingrix Adjuvant Component-PF] suspension 0.5 ml IM ONCE Qty: 0.5 RF: 0 albuterol sulfate 2.5 mg /3 mL (0.083 %) solution for nebulization 2.5 mg Continuous Nebulization Q6HP PRN (Reason: shortness of breath or wheezing) Qty: 90 RF: 1 omeprazole 40 mg capsule,delayed release(DR/EC) 40 mg PO Q DAY Qty: 90 RF: 1 metoprolol succinate 100 mg tablet extended release 24 hr See Rx Instructions .ROUTE .COMPLEX Qty: 90 RF: 0 losartan 100 mg tablet 100 mg PO DAILY Qty: 90 RF: 0 fluticasone propionate 50 mcg/actuation spray,suspension 1 spray Intranasal BID Qty: 1 RF: 3 hydrochlorothiazide 12.5 mg capsule 12.5 mg PO DAILY Qty: 90 RF: 0 amlodipine 10 mg tablet 10 mg PO QDAY IN PM Qty: 90 RF: 0 albuterol sulfate 90 mcg/actuation HFA aerosol inhaler 1 inh INHALATION Q4-6H PRN (Reason: shortness of breath) Qty: 18 RF: 4 fluoxetine 20 mg capsule 20 mg PO QDAY Qty: 90 RF: 1 fluoxetine 10 mg capsule 10 mg PO DAILY Qty: 90 RF: 1 oxycodone 10 mg tablet 10 mg PO Q6-8H PRN (Reason: chronic pain) Qty: 120 RF: 0 pregabalin [Lyrica] 50 mg capsule 50 mg PO BID Qty: 180 RF: 1 aspirin 81 mg tablet,delayed release (DR/EC) 81 mg PO DAILY RF: 0 Referrals: Edilberto Snell, [Primary Care Provider] -
[2020-01-14 06:38] VITALS: BP 159/69; PULSE 84; RESP 18; O2SAT 98
[2020-01-14 06:39] LABS: Ferritin 31 ng/mL (18-464)
[2020-01-14 06:41] LABS: Procalcitonin < 0.05 ng/mL (<0.5)
[2020-01-15 23:25] LABS: COVID19 Sendout Not Detected (Not Detected)
== END 2020-01-14 06:40 | disposition home or self-care (01) ==
PROVIDERS: Emergency Provider Emergency Medicine; Family Provider Family Medicine; PCP Family Medicine
DX: J18.9 Pneumonia, unspecified organism (principal); J45.21 Mild intermittent asthma with (acute) exacerbation; I10 Essential (primary) hypertension
CPT/HCPCS: 36415; 71045; 71250; 80048; 82728; 84145; 85025; 86140; 87635; 94640; 99284

== ENCOUNTER → 2020-02-22 13:42 | Outpatient (CLI) | payer MEDICARE, OTHER, SELFPAY ==
[2020-02-22 16:18] LABS: Add Manual Diff / Slide Review NO; Basophils Absolute Auto 0 /uL (0-100); Basophils Percent Auto 0.5 % (0-2); Eosinophils Absolute Auto 100 /uL (0-450); Eosinophils Percent Auto 1.3 % (2-4); Hematocrit 41.9 % (41-53); Hemoglobin 14.1 g/dL (13.5-17.5); Lymphocytes Absolute Auto 1600 /uL (1100-4500); Lymphocytes Percent Auto 17.4 % (25-40); Mean Corpuscular HGB Conc 33.7 % (30-36); Mean Corpuscular Hemoglobin 28.1 PG (26-34); Mean Corpuscular Volume 83.4 fL (80-100); Monocytes Absolute Auto 900 /uL (0-900); Monocytes Percent Auto 9.8 % (3-14); Neutrophils Absolute Auto 6500 /uL (1500-7000); Platelet Count 321 X10^3/uL (150-400); Red Blood Cell Count 5.02 X10^6/uL (4.5-5.9); Red Cell Distribution Width 15.7 % (11.6-14.8); White Blood Cell Count 9.1 X10^3/uL (4.5-11.0)
[2020-02-22 16:34] LABS: Erythrocyte Sedimentation Rate 14 MM/HR (0-15)
[2020-02-22 16:56] LABS: Alanine Aminotransferase 20 IU/L (<50); Albumin 4.7 g/dL (3.5-5.0); Albumin Globulin Ratio 1.4 (1.0-2.8); Alkaline Phosphatase 73 U/L (38-126); Aspartate Aminotransferase 27 IU/L (17-59); BUN Creatinine Ratio 19.7 (6-22); Bilirubin Total 0.4 mg/dL (0.2-1.3); Blood Urea Nitrogen 15 mg/dL (9-20); Calcium 9.2 mg/dL (8.4-10.2); Carbon Dioxide 24 mmol/L (22-32); Chloride 104 mmol/L (98-107); Estimated Glomerular Filt Rate > 60.0 mL/min (>60); Globulin 3.3 g/dL (1.7-4.1); Glucose 102 mg/dL (80-110); HEMOLYSIS < 15 (0-50); Potassium 3.3 mmol/L (3.4-5.1); Sodium 141 mmol/L (137-145)
[2020-02-22 16:57] LABS: C-Reactive Protein Quant < 0.5 mg/dL (<1.0)
[2020-02-22 18:30] LABS: Cholesterol 151 mg/dL (140-199); HDL Cholesterol 36 mg/dL (40-60); LDL Cholesterol Calculated 73 mg/dL (<100); Triglycerides 209 mg/dL (35-150)
[2020-02-22 19:00] LABS: Prostate Specific Antigen Scrn < 0.064 ng/mL (0.1-4.0); TSH w/ Reflex to FT4 2.22 uIU/mL (0.47-4.68)
== END ==
PROVIDERS: Family Provider Family Medicine; PCP Family Medicine; Referring Provider Internal Medicine Rheumatology; Visit Provider Internal Medicine Rheumatology
DX: M05.79 Rheumatoid arthritis with rheumatoid factor of multiple sites without organ or systems involvement (principal); Z76.89 Persons encountering health services in other specified circumstances
CPT/HCPCS: 36415; 80053; 80061; 84443; 85025; 85651; 86140; G0103

== ENCOUNTER 2020-06-11 14:21 | Emergency (ER) | payer MEDICARE, OTHER, SELFPAY ==
[2020-06-11] VITALS (10 sets, daily range): BP systolic 142–148; BP diastolic 65–101; PULSE 76–93; RESP 16–24; TEMP 36.9–37.8; O2SAT 91–97; BMI 33.3
--- NOTE | 2020-06-11 15:03 | DI.RAD.S_ITS ---
PROCEDURE: XR CHEST 2V INDICATIONS: Productive cough TECHNIQUE: 2 views of the chest were acquired. COMPARISON: [facility], , XR CHEST 1V, 01/14/2020, 5:18. FINDINGS: Surgical changes and devices: None. Lungs and pleura: No acute airspace opacities. Multiple probable granulomas are redemonstrated bilaterally and are unchanged when compared with the plain film dated November 01, 2016. No pleural effusions or pneumothorax. Mediastinum: Mediastinal contours are normal. Heart size is normal. Bones and chest wall: No suspicious bony abnormalities. Soft tissues appear unremarkable. IMPRESSION: No acute cardiopulmonary findings. Dictated by: Tari Chow M.D. on 06/11/2020 at 14:15 Approved by: Tari Chow M.D. on 06/11/2020 at 14:16
--- NOTE | 2020-06-11 17:01 | ED.URI ---
HPI - URI/Sore Throat <Zenobia Damon PA-C - Last Filed: 06/11/20 22:12> General Chief Complaint: Upper Respiratory Symptoms Stated Complaint: Beginning of pneumonia Time Seen by Provider: 06/11/20 14:58 Source: patient Mode of arrival: Ambulatory Limitations: no limitations History of Present Illness HPI Narrative: 74-year-old patient with a history of pneumonia, ureteral stone, rheumatoid arthritis, lumbar radiculopathy, hepatitis C, asthma presents with productive cough since yesterday afternoon. He states he gets pneumonia multiple times per year and it always starts out like this, with a cough that is productive, states he has been hospitalized multiple times for pneumonia. 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 He is on chronic 5 mg of prednisone daily for his arthritis, he also takes Oxycodone for chronic pain. He has been checking his temperature regularly and has not noted any fever. He denies fever, chills, increased shortness of breath, sore throat, chest pain, abdominal pain, nausea, vomiting or any other symptoms. Related Data Home Medications Medication Instructions Recorded Confirmed aspirin 81 mg tablet,delayed 81 mg PO DAILY 07/02/19 02/16/20 release Previous Rx's Medication Instructions Recorded adjuvant AS01B (PF)vial 1 of 2 0.5 ml IM ONCE #0.5 ml 09/29/18 albuterol sulfate 90 mcg/actuation 1 inh INHALATION Q4-6H PRN #18 gram 11/20/19 aerosol inhaler fluoxetine 10 mg capsule 10 mg PO DAILY #90 cap 01/08/20 fluoxetine 20 mg capsule 20 mg PO QDAY #90 cap 01/08/20 azithromycin See Rx Instructions .ROUTE 01/14/20 .COMPLEX #6 tab hydrochlorothiazide 12.5 mg capsule 12.5 mg PO DAILY #90 cap 02/08/20 metoprolol succinate 100 mg See Rx Instructions .ROUTE 02/08/20 tablet,extended release 24 hr .COMPLEX #90 tablet omeprazole 40 mg capsule,delayed 40 mg PO Q DAY #90 cap 02/08/20 release albuterol sulfate 2.5 mg CONTINUOUS NEBULIZATION 02/16/20 Q6HP PRN #360 ml pregabalin 50 mg capsule 50 mg PO BID #180 cap 02/16/20 fluticasone propionate 50 1 spray INTRANASAL BID #1 bot 03/09/20 mcg/actuation nasal spray,suspension amlodipine 10 mg tablet 10 mg PO QDAY IN PM #90 tab 05/06/20 losartan 100 mg tablet 100 mg PO DAILY #90 tab 05/06/20 oxycodone 10 mg tablet 10 mg PO Q6-8H PRN #120 tab 06/07/20 azithromycin 250 mg PO DAILY 4 Days #4 tab 06/11/20 Allergies Allergy/AdvReac Type Severity Reaction Status Date / Time cyclobenzaprine Allergy Verified 06/11/20 14:56 [From Flexeril] acetaminophen [ACETAMINOPHEN] AdvReac Unknown Can't take Verified 06/11/20 14:56 r/t Hep C Review of Systems <Zenobia Damon PA-C - Last Filed: 06/11/20 22:12> Review of Systems Narrative: GENERAL: Denies chills, fatigue, malaise, fever, sweats. HEENT: Denies sinus pain, ear pain, sore throat, difficulty swallowing, dizziness. RESPIRATORY: Denies dyspnea, positive for cough, negative for wheezing, hemoptysis, positive for sputum. CARDIOVASCULAR: Denies chest pain, palpitations, orthopnea, edema, GASTROINTESTINAL: Denies nausea, vomiting, abdominal pain, diarrhea, constipation, melena. : Denies dysuria, frequency, incontinence, hematuria, urinary retention. MUSCULOSKELETAL: denies weakness, positive for chronic joint pain in wrists, and bony pain in his back SKIN: Denies rash, skin lesions, or other NEUROLOGIC: Denies weakness, headache, numbness, change in speech, confusion, seizures, incoordination. PSYCHIATRIC: No concerning psychosocial issues. 12 point review of systems is negative except for those stated above ROS Unobtainable: All systems reviewed & are unremarkable except as noted in HPI and below Patient History <Zenobia Damon PA-C - Last Filed: 06/11/20 22:12> Medical History (Updated 06/11/20 @ 19:15 by Zenobia Damon PA-C) Arthritis (Chronic Unknown) Chronic pain syndrome (Chronic Unknown) Depression (Chronic Unknown) Hepatitis C (Resolved Unknown) Hypertension (Chronic Unknown) Impotence (Chronic Unknown) Kidney stones (Resolved Unknown) Migraines (Chronic Unknown) Pneumonia (Resolved ~2018) Prostate cancer (Resolved Unknown) PTSD (post-traumatic stress disorder) (Chronic Unknown) Restless leg syndrome (Chronic Unknown) Skin cancer (Resolved Unknown) Surgical History History of back surgery (Resolved) History of carpal tunnel repair History of lumbar fusion (Resolved) History of tonsillectomy Hx of foot surgery (Resolved) Hx of joint replacement (Resolved) Hx of laminectomy (Resolved 10/2012) Status post cholecystectomy Status post knee surgery Family History Father Heart disease Mother No problems noted. Social History household members: spouse Smoking Status: Former smoker Tobacco: How many years used: 20 quit status: has quit before alcohol intake: former substance use type: former substance user and marijuana Smoking Status: Former smoker Substance Use Type: does not use Exam <Zenobia Damon PA-C - Last Filed: 06/11/20 22:12> Narrative Exam Narrative: GENERAL: 74 year old patient appears stated age. Well-nourished, well-developed patient, in moderate distress. HEAD: Atraumatic. Normocephalic. EYES: Pupils equal round and reactive. Extraocular motions intact. No scleral icterus. No injection or drainage. ENT: Nose without bleeding, purulent drainage. Throat without erythema, tonsillar hypertrophy or exudate. Airway patent. NECK: Trachea midline. Non tender CARDIOVASCULAR: Regular rate and rhythm without murmurs, gallops, or rubs. RESPIRATORY: Productive cough during exam, thick yellowish sputum, lungs with mild wheezing left side greater than right. Breath sounds equal bilaterally. No rales, or rhonchi. GASTROINTESTINAL: Abdomen soft, non-tender, protruberant, nondistended. EXTREMITIES: No edema or joint tenderness. BACK: Nontender without deformity or crepitance. No flank tenderness. NEURO: AOx3. SKIN: No rash or erythema of visible areas Initial Vital Signs Initial Vital Signs: Vital Signs Pulse Rate 76 06/11/20 14:57 Respiratory Rate 24 06/11/20 14:57 Blood Pressure 148/69 H 06/11/20 14:57 Pulse Oximetry 94 06/11/20 14:57 <Mirtha Jameson MD - Last Filed: 06/12/20 06:56> Initial Vital Signs Initial Vital Signs: Vital Signs Pulse Rate 76 06/11/20 14:57 Respiratory Rate 24 06/11/20 14:57 Blood Pressure 148/69 H 06/11/20 14:57 Pulse Oximetry 94 06/11/20 14:57 Scores <Zenobia Damon PA-C - Last Filed: 06/11/20 22:12> CURB-65 Confusion: No BUN >19mg/dL (>7mmol/L): No Respiratory rate greater or equal to 30: No SBP <90mmHg or DBP less or equal to 60mmHg: No Age 65 or Older: Yes CURB-65 Total: 1 Score 0-1 Outpatient care, Score 2 Inpt vs. Obs, Score 3 or over Inpt admit with ICU for score of 4-5 GCS [place] coma scale eye opening: Spontaneous [place] coma scale verbal response: Orientated [place] coma scale motor response: Obey commands [place] coma scale total score: 15 Course <Zenobia Damon PA-C - Last Filed: 06/11/20 22:12> Course Course Narrative: Patient states he does not want leave Against Medical Advice but he does note that he hopes he will be getting antibiotics today, does not understand why labs need to be drawn, he is uncomfortable and in pain due to his chronic pain. I did provide him with a dose of pain medicine the same that he takes every 6-8 hours. I explained to him that I need to look for signs of worsening infection, his chest ray x-ray looks similar to his previous chest x-ray, but he did have a slightly elevated temp today. 17:55 Patient does have a slight increase in his white count although he is chronically on prednisone. His lactate is unremarkable. Rechecking to ascertain if he has an increase in his temperature, plan to discharge with antibiotics. No fever. First dose antibiotics here in the emergency department, as patient's pharmacy is closed, part of the dose was dropped on the floor additional 250 mg Azithromycin was ordered in order to make up a total dose of 500mg administered in the ED. 19:41 Orders Ordered: Discontinued Medications Albuterol (Ventolin Hfa (Vent/Covid R/O)) 10 puff INH NOW ONE Stop: 06/11/20 17:25 Last Admin: 06/11/20 17:30 Dose: 10 puff Documented by: INA Azithromycin (Zithromax) 500 mg PO NOW ONE Stop: 06/11/20 19:23 Last Admin: 06/11/20 19:35 Dose: 250 mg Documented by: FAZAL Azithromycin (Zithromax) 250 mg PO NOW ONE Stop: 06/11/20 19:41 Last Admin: 06/11/20 19:44 Dose: 250 mg Documented by: FAZAL Oxycodone HCl (Percolone) 10 mg PO NOW ONE Stop: 06/11/20 17:54 Last Admin: 06/11/20 17:58 Dose: 10 mg Documented by: FAZAL Vital Signs Vital signs: Vital Signs - 8 hr 06/11/20 14:57 06/11/20 17:12 06/11/20 17:30 Temperature 100.0 F H Pulse Rate 76 79 80 Respiratory Rate 24 24 Blood Pressure 148/69 H 142/67 H Pulse Oximetry 94 94 96 06/11/20 17:31 06/11/20 17:34 06/11/20 17:52 Temperature Pulse Rate 80 82 92 H Respiratory Rate 16 Blood Pressure 142/101 H Pulse Oximetry 95 97 94 06/11/20 18:01 06/11/20 19:13 06/11/20 19:14 Temperature Pulse Rate 93 H Respiratory Rate Blood Pressure 144/67 H 147/65 H Pulse Oximetry 91 92 06/11/20 19:16 Temperature 98.4 F Pulse Rate 85 Respiratory Rate 16 Blood Pressure 147/65 H Pulse Oximetry 96 <Mirtha Jameson MD - Last Filed: 06/12/20 06:56> Orders Ordered: Discontinued Medications Albuterol (Ventolin Hfa (Vent/Covid R/O)) 10 puff INH NOW ONE Stop: 06/11/20 17:25 Last Admin: 06/11/20 17:30 Dose: 10 puff Documented by: INA Azithromycin (Zithromax) 500 mg PO NOW ONE Stop: 06/11/20 19:23 Last Admin: 06/11/20 19:35 Dose: 250 mg Documented by: FAZAL Azithromycin (Zithromax) 250 mg PO NOW ONE Stop: 06/11/20 19:41 Last Admin: 06/11/20 19:44 Dose: 250 mg Documented by: FAZAL Oxycodone HCl (Percolone) 10 mg PO NOW ONE Stop: 06/11/20 17:54 Last Admin: 06/11/20 17:58 Dose: 10 mg Documented by: FAZAL Vital Signs Vital signs: Vital Signs - 8 hr 06/11/20 14:57 06/11/20 17:12 06/11/20 17:30 Temperature 100.0 F H Pulse Rate 76 79 80 Respiratory Rate 24 24 Blood Pressure 148/69 H 142/67 H Pulse Oximetry 94 94 96 06/11/20 17:31 06/11/20 17:34 06/11/20 17:52 Temperature Pulse Rate 80 82 92 H Respiratory Rate 16 Blood Pressure 142/101 H Pulse Oximetry 95 97 94 06/11/20 18:01 06/11/20 19:13 06/11/20 19:14 Temperature Pulse Rate 93 H Respiratory Rate Blood Pressure 144/67 H 147/65 H Pulse Oximetry 91 92 06/11/20 19:16 Temperature 98.4 F Pulse Rate 85 Respiratory Rate 16 Blood Pressure 147/65 H Pulse Oximetry 96 MDM - URI/Sore Throat <Zenobia Damon PA-C - Last Filed: 06/11/20 22:12> Differential Diagnosis Differential diagnosis: Likely upper respiratory infection, viral infection, bronchitis and other (Atypical pneumonia) Medical Records Attestation: I reviewed the patient's medical records. Lab Data Attestation: I reviewed the patient's lab results. Result diagrams: 06/11/20 18:45 06/11/20 18:45 Labs: Lab Results 06/11/20 06/11/20 06/11/20 Range/Units 18:45 18:45 18:45 WBC 12.0 H (4.5-11.0) X10^3/uL RBC 4.05 L (4.5-5.9) X10^6/uL Hgb 11.0 L (13.5-17.5) g/dL Hct 32.6 L (41-53) % MCV 80.5 (80-100) fL MCH 27.1 (26-34) PG MCHC 33.7 (30-36) % RDW 14.2 (11.6-14.8) % Plt Count 205 (150-400) X10^3/uL Neut % (Auto) 82.3 H (50-75) % Lymph % (Auto) 7.0 L (25-40) % [place] % (Auto) 8.7 (3-14) % Eos % (Auto) 1.6 L (2-4) % Baso % (Auto) 0.4 (0-2) % Neut # (Auto) 9900 H (2009-6006) /uL Lymph # (Auto) 800 L (6886-3140) /uL [place] # (Auto) 1000 H (0-900) /uL Eos # (Auto) 200 (0-450) /uL Baso # (Auto) 100 (0-100) /uL Sodium 132 L (137-145) mmol/L Potassium 3.0 L (3.4-5.1) mmol/L Chloride 95 L (98-107) mmol/L Carbon Dioxide 32 (22-32) mmol/L BUN 11 (9-20) mg/dL Creatinine 0.64 L (0.66-1.25) mg/dL Estimated GFR > 60.0 (>60) mL/min BUN/Creatinine Ratio 17.2 (6-22) Glucose 111 H (80-110) mg/dL Lactate 1.4 (0.7-2.1) mmol/L Calcium 8.5 (8.4-10.2) mg/dL Total Bilirubin 0.7 (0.2-1.3) mg/dL AST 26 (17-59) IU/L ALT 18 (<50) IU/L Alkaline Phosphatase 82 (38-126) U/L Total Protein 6.8 (6.3-8.2) g/dL Albumin 3.9 (3.5-5.0) g/dL Globulin 2.9 (1.7-4.1) g/dL Albumin/Globulin Ratio 1.3 (1.0-2.8) Procalcitonin (<0.5) ng/mL 06/11/20 Range/Units 18:45 WBC (4.5-11.0) X10^3/uL RBC (4.5-5.9) X10^6/uL Hgb (13.5-17.5) g/dL Hct (41-53) % MCV (80-100) fL MCH (26-34) PG MCHC (30-36) % RDW (11.6-14.8) % Plt Count (150-400) X10^3/uL Neut % (Auto) (50-75) % Lymph % (Auto) (25-40) % [place] % (Auto) (3-14) % Eos % (Auto) (2-4) % Baso % (Auto) (0-2) % Neut # (Auto) (1963-2052) /uL Lymph # (Auto) (4139-9355) /uL [place] # (Auto) (0-900) /uL Eos # (Auto) (0-450) /uL Baso # (Auto) (0-100) /uL Sodium (137-145) mmol/L Potassium (3.4-5.1) mmol/L Chloride (98-107) mmol/L Carbon Dioxide (22-32) mmol/L BUN (9-20) mg/dL Creatinine (0.66-1.25) mg/dL Estimated GFR (>60) mL/min BUN/Creatinine Ratio (6-22) Glucose (80-110) mg/dL Lactate (0.7-2.1) mmol/L Calcium (8.4-10.2) mg/dL Total Bilirubin (0.2-1.3) mg/dL AST (17-59) IU/L ALT (<50) IU/L Alkaline Phosphatase (38-126) U/L Total Protein (6.3-8.2) g/dL Albumin (3.5-5.0) g/dL Globulin (1.7-4.1) g/dL Albumin/Globulin Ratio (1.0-2.8) Procalcitonin < 0.05 (<0.5) ng/mL Imaging Data Chest x-ray: Attestation: I personally reviewed and interpreted this imaging study as follows: Radiologist's Impression: [address] [address] XRay Report Signed Patient: Barrett Tam PMR#: [id number] : 5Acct:[id number] Age/Sex: 74 / MDate of Service: 06/11/20 Loc: ED Accession Number: [id number] Procedure: XR chest 2V Ordering Provider: Mirtha Jameson MD PROCEDURE: XR CHEST 2V INDICATIONS: Productive cough TECHNIQUE: 2 views of the chest were acquired. COMPARISON: [facility], CR, XR CHEST 1V, 01/14/2020, 5:18. FINDINGS: Surgical changes and devices: None. Lungs and pleura: No acute airspace opacities. Multiple probable granulomas are redemonstrated bilaterally and are unchanged when compared with the plain film dated November 01, 2016. No pleural effusions or pneumothorax. Mediastinum: Mediastinal contours are normal. Heart size is normal. Bones and chest wall: No suspicious bony abnormalities. Soft tissues appear unremarkable. IMPRESSION: No acute cardiopulmonary findings. Dictated by: Tari Chow M.D. on 06/11/2020 at 14:15 Approved by: Tari Chow M.D. on 06/11/2020 at 14:16 MDM Narrative Medical decision making narrative: Uncomfortable appearing 74-year-old with a history of asthma, pneumonia, depression, ureteral stone, hepatitis C chronic pain and arthritis presents with productive cough, and generally feeling under the weather as he does typically before he gets a bad infectious pneumonia. Patient has been hospitalized multiple times for pneumonia, he has granulomas in his lungs 2nd to ?[place] disease. He has used his inhalers multiple times this morning with limited improvement of his symptoms. He has no other concerns or complaints except for his chronic pain of his wrist and back. Patient initially had a slightly elevated temperature still less than 100.3, on recheck this was normalized. He did not have an elevated lactate, slight leukocytosis however he is on chronic prednisone daily for his arthritis, given history, exam chose to initiate antibiotic treatment for him as an outpatient. First dose of antibiotics in the emergency department today, we will continue course of antibiotics after picking him up from pharmacy tomorrow. Emergency return precautions provided, all questions answered. <Mirtha Jameson MD - Last Filed: 06/12/20 06:56> Lab Data Labs: Lab Results 06/11/20 06/11/20 06/11/20 Range/Units 18:45 18:45 18:45 WBC 12.0 H (4.5-11.0) X10^3/uL RBC 4.05 L (4.5-5.9) X10^6/uL Hgb 11.0 L (13.5-17.5) g/dL Hct 32.6 L (41-53) % MCV 80.5 (80-100) fL MCH 27.1 (26-34) PG MCHC 33.7 (30-36) % RDW 14.2 (11.6-14.8) % Plt Count 205 (150-400) X10^3/uL Neut % (Auto) 82.3 H (50-75) % Lymph % (Auto) 7.0 L (25-40) % [place] % (Auto) 8.7 (3-14) % Eos % (Auto) 1.6 L (2-4) % Baso % (Auto) 0.4 (0-2) % Neut # (Auto) 9900 H (9619-7328) /uL Lymph # (Auto) 800 L (9518-1285) /uL [place] # (Auto) 1000 H (0-900) /uL Eos # (Auto) 200 (0-450) /uL Baso # (Auto) 100 (0-100) /uL Sodium 132 L (137-145) mmol/L Potassium 3.0 L (3.4-5.1) mmol/L Chloride 95 L (98-107) mmol/L Carbon Dioxide 32 (22-32) mmol/L BUN 11 (9-20) mg/dL Creatinine 0.64 L (0.66-1.25) mg/dL Estimated GFR > 60.0 (>60) mL/min BUN/Creatinine Ratio 17.2 (6-22) Glucose 111 H (80-110) mg/dL Lactate 1.4 (0.7-2.1) mmol/L Calcium 8.5 (8.4-10.2) mg/dL Total Bilirubin 0.7 (0.2-1.3) mg/dL AST 26 (17-59) IU/L ALT 18 (<50) IU/L Alkaline Phosphatase 82 (38-126) U/L Total Protein 6.8 (6.3-8.2) g/dL Albumin 3.9 (3.5-5.0) g/dL Globulin 2.9 (1.7-4.1) g/dL Albumin/Globulin Ratio 1.3 (1.0-2.8) Procalcitonin (<0.5) ng/mL 06/11/20 Range/Units 18:45 WBC (4.5-11.0) X10^3/uL RBC (4.5-5.9) X10^6/uL Hgb (13.5-17.5) g/dL Hct (41-53) % MCV (80-100) fL MCH (26-34) PG MCHC (30-36) % RDW (11.6-14.8) % Plt Count (150-400) X10^3/uL Neut % (Auto) (50-75) % Lymph % (Auto) (25-40) % [place] % (Auto) (3-14) % Eos % (Auto) (2-4) % Baso % (Auto) (0-2) % Neut # (Auto) (8506-9329) /uL Lymph # (Auto) (0841-8832) /uL [place] # (Auto) (0-900) /uL Eos # (Auto) (0-450) /uL Baso # (Auto) (0-100) /uL Sodium (137-145) mmol/L Potassium (3.4-5.1) mmol/L Chloride (98-107) mmol/L Carbon Dioxide (22-32) mmol/L BUN (9-20) mg/dL Creatinine (0.66-1.25) mg/dL Estimated GFR (>60) mL/min BUN/Creatinine Ratio (6-22) Glucose (80-110) mg/dL Lactate (0.7-2.1) mmol/L Calcium (8.4-10.2) mg/dL Total Bilirubin (0.2-1.3) mg/dL AST (17-59) IU/L ALT (<50) IU/L Alkaline Phosphatase (38-126) U/L Total Protein (6.3-8.2) g/dL Albumin (3.5-5.0) g/dL Globulin (1.7-4.1) g/dL Albumin/Globulin Ratio (1.0-2.8) Procalcitonin < 0.05 (<0.5) ng/mL Discharge Plan Departure Patient Disposition: Home Clinical Impression: Atypical pneumonia Asthma Qualifiers: Asthma severity: moderate Asthma persistence: unspecified Asthma complication type: unspecified Qualified Code(s): J45.909 - Unspecified asthma, uncomplicated Discharge Date/Time: 06/11/20 19:47 Instructions: Asthma -- Adult, Atypical Pneumonia Activity Restrictions/Additional Instructions: Thank you for letting us be part of your care today in the emergency department. Her chest x-ray today did not show any significant changes from her previous chest x-ray, I think you may have been dealing with a little bit of an asthma exacerbation, as some of her symptoms did improve after we gave you a nebulizer in the emergency department. However am concerned that you did have initially a low-grade fever you have some wheezing, any have some productive sputum which were you typically initiate see or pneumonia symptoms. You also have a slightly elevated white count today and for this reason and went to prescribe antibiotics for you. The please pay very close attention to your symptoms, if you feel you are worsening rather than improving do not hesitate to seek medical care. Particularly if you develop any fevers, chills, nausea, vomiting, increasing shortness of breath or any other symptoms of concern. I have given you a prescription for antibiotics, this was sent to the 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 There is no evidence of an emergent or life threatening illness at this time, but follow up with your doctor in 1-2 days is recommended nonetheless to continue to rule out serious underlying causes of your symptoms. Please call the office for an appointment. Please return to the Emergency Department for any worsening or persistent symptoms. Please take medications as directed. Prescriptions: New azithromycin 250 mg tablet 250 mg PO DAILY 4 Days Qty: 4 RF: 0 No Action adjuvant AS01B (PF)vial 1 of 2 [Shingrix Adjuvant Component-PF] suspension 0.5 ml IM ONCE Qty: 0.5 RF: 0 albuterol sulfate 90 mcg/actuation HFA aerosol inhaler 1 inh INHALATION Q4-6H PRN (Reason: shortness of breath) Qty: 18 RF: 4 fluoxetine 20 mg capsule 20 mg PO QDAY Qty: 90 RF: 1 fluoxetine 10 mg capsule 10 mg PO DAILY Qty: 90 RF: 1 hydrochlorothiazide 12.5 mg capsule 12.5 mg PO DAILY Qty: 90 RF: 1 metoprolol succinate 100 mg tablet extended release 24 hr See Rx Instructions .ROUTE .COMPLEX Qty: 90 RF: 1 omeprazole 40 mg capsule,delayed release(DR/EC) 40 mg PO Q DAY Qty: 90 RF: 1 fluticasone propionate 50 mcg/actuation spray,suspension 1 spray Intranasal BID Qty: 1 RF: 3 losartan 100 mg tablet 100 mg PO DAILY Qty: 90 RF: 1 amlodipine 10 mg tablet 10 mg PO QDAY IN PM Qty: 90 RF: 0 oxycodone 10 mg tablet 10 mg PO Q6-8H PRN (Reason: chronic pain) Qty: 120 RF: 0 aspirin 81 mg tablet,delayed release (DR/EC) 81 mg PO DAILY RF: 0 albuterol sulfate 2.5 mg /3 mL (0.083 %) solution for nebulization 2.5 mg Continuous Nebulization Q6HP PRN (Reason: shortness of breath or wheezing) Qty: 360 RF: 1 pregabalin [Lyrica] 50 mg capsule 50 mg PO BID Qty: 180 RF: 3 azithromycin 250 mg tablet See Rx Instructions .ROUTE .COMPLEX Qty: 6 RF: 0 Referrals: Edilberto Snell DO [Primary Care Provider] - <Mirtha Jameson MD - Last Filed: 06/12/20 06:56> [facility] Att[facility]: I was immediately available in the department for consultation throughout this patient's visit. I agree with documentation as above. Mirtha Jameson MD
[2020-06-11] MEDS: ALBUTEROL HFA 200 PUFF/18 GM INH (COVID POS/VENT PTS) 10 PUFF INH (17:30)
[2020-06-11] MEDS: OXYCODONE IR 5 MG TABLET 10 MG PO (17:58)
[2020-06-11 18:56] LABS: Add Manual Diff / Slide Review NO; Basophils Absolute Auto 100 /uL (0-100); Basophils Percent Auto 0.4 % (0-2); Eosinophils Absolute Auto 200 /uL (0-450); Eosinophils Percent Auto 1.6 % (2-4); Hematocrit 32.6 % (41-53); Lymphocytes Absolute Auto 800 /uL (1100-4500); Mean Corpuscular HGB Conc 33.7 % (30-36); Mean Corpuscular Hemoglobin 27.1 PG (26-34); Mean Corpuscular Volume 80.5 fL (80-100); Monocytes Absolute Auto 1000 /uL (0-900); Monocytes Percent Auto 8.7 % (3-14); Neutrophils Absolute Auto 9900 /uL (1500-7000); Neutrophils Percent Auto 82.3 % (50-75); Platelet Count 205 X10^3/uL (150-400); Red Blood Cell Count 4.05 X10^6/uL (4.5-5.9); Red Cell Distribution Width 14.2 % (11.6-14.8)
[2020-06-11 19:05] LABS: Alanine Aminotransferase 18 IU/L (<50); Albumin 3.9 g/dL (3.5-5.0); Albumin Globulin Ratio 1.3 (1.0-2.8); Alkaline Phosphatase 82 U/L (38-126); Aspartate Aminotransferase 26 IU/L (17-59); BUN Creatinine Ratio 17.2 (6-22); Bilirubin Total 0.7 mg/dL (0.2-1.3); Blood Urea Nitrogen 11 mg/dL (9-20); Calcium 8.5 mg/dL (8.4-10.2); Carbon Dioxide 32 mmol/L (22-32); Chloride 95 mmol/L (98-107); Estimated Glomerular Filt Rate > 60.0 mL/min (>60); Globulin 2.9 g/dL (1.7-4.1); Glucose 111 mg/dL (80-110); HEMOLYSIS 16 (0-50); Sodium 132 mmol/L (137-145); Total Protein 6.8 g/dL (6.3-8.2)
[2020-06-11 19:06] LABS: Lactate (Lactic Acid) 1.4 mmol/L (0.7-2.1)
[2020-06-11 19:27] LABS: Procalcitonin < 0.05 ng/mL (<0.5)
[2020-06-11] MEDS: AZITHROMYCIN 250 MG TABLET 500 MG PO (19:35)
[2020-06-11] MEDS: AZITHROMYCIN 250 MG TABLET PO (19:44)
== END 2020-06-11 19:47 | disposition home or self-care (01) ==
PROVIDERS: Emergency Provider Student in an Organized Health Care Education/Training Program; Family Provider Family Medicine; PCP Family Medicine
DX: J18.9 Pneumonia, unspecified organism (principal); J45.909 Unspecified asthma, uncomplicated
CPT/HCPCS: 36415; 71046; 80053; 83605; 84145; 85025; 94640; 99283; 99284; A9270

== ENCOUNTER 2020-07-09 06:40 | Emergency (ER) | payer MEDICARE, OTHER, SELFPAY ==
[2020-07-09] VITALS (8 sets, daily range): BP systolic 157–158; BP diastolic 72–86; PULSE 62–88; RESP 16–22; TEMP 36.7; O2SAT 95–98; BMI 32.8
--- NOTE | 2020-07-09 07:05 | ED_ITS ---
HPI - SOB/Dyspnea General Chief Complaint: Shortness of Breath/Dyspnea Stated Complaint: Woke up throwing up, cough, SOB Time Seen by Provider: 07/09/20 06:55 Source: patient Mode of arrival: Family Vehicle Limitations: no limitations History of Present Illness HPI Narrative: 74M former smoker with history of asthma and HTN presents with a chief complaint of increasing shortness of breath and wheezing for the past day or 2. He has had no runny nose, sore throat or or chest pain. He has had no fever or chills. Additionally, the patient states he woke up at about 2:00 a.m. and had a few episodes of vomiting. He has been using his normal combination of bronchodilators and prednisone 5 mg daily. He denies any abdominal pain or distention. He denies dysuria, frequency or urgency. MD Complaint: shortness of breath and cough Onset (ago): day(s) Severity: moderate Consistency/Duration: constant Relieving factors: nothing Exacerbating factors: nothing Known history of: asthma Associated symptoms: denies other symptoms Treatment prior to arrival: bronchodilator Related Data Home oxygen amount: none Home Medications Medication Instructions Recorded Confirmed aspirin 81 mg tablet,delayed 81 mg PO DAILY 07/02/19 02/16/20 release Previous Rx's Medication Instructions Recorded adjuvant AS01B (PF)vial 1 of 2 0.5 ml IM ONCE #0.5 ml 09/29/18 albuterol sulfate 90 mcg/actuation 1 inh INHALATION Q4-6H PRN #18 gram 11/20/19 aerosol inhaler azithromycin See Rx Instructions .ROUTE 01/14/20 .COMPLEX #6 tab hydrochlorothiazide 12.5 mg capsule 12.5 mg PO DAILY #90 cap 02/08/20 metoprolol succinate 100 mg See Rx Instructions .ROUTE 02/08/20 tablet,extended release 24 hr .COMPLEX #90 tablet omeprazole 40 mg capsule,delayed 40 mg PO Q DAY #90 cap 02/08/20 release albuterol sulfate 2.5 mg CONTINUOUS NEBULIZATION 02/16/20 Q6HP PRN #360 ml pregabalin 50 mg capsule 50 mg PO BID #180 cap 02/16/20 fluticasone propionate 50 1 spray INTRANASAL BID #1 bot 03/09/20 mcg/actuation nasal spray,suspension amlodipine 10 mg tablet 10 mg PO QDAY IN PM #90 tab 05/06/20 losartan 100 mg tablet 100 mg PO DAILY #90 tab 05/06/20 fluoxetine 10 mg capsule 10 mg PO DAILY #90 cap 07/04/20 fluoxetine 20 mg capsule 20 mg PO QDAY #90 cap 07/04/20 oxycodone 10 mg tablet 10 mg PO Q6-8H PRN #120 tab 07/06/20 doxycycline hyclate 100 mg PO BID #20 tab 07/09/20 ondansetron 4 mg PO Q8H PRN #10 tab 07/09/20 prednisone See Rx Instructions .ROUTE 07/09/20 .COMPLEX #30 tab Allergies Allergy/AdvReac Type Severity Reaction Status Date / Time cyclobenzaprine Allergy Verified 06/11/20 14:56 [From Flexeril] acetaminophen [ACETAMINOPHEN] AdvReac Unknown Can't take Verified 06/11/20 14:56 r/t Hep C Review of Systems Constitutional Constitutional: Denies chills, Denies fatigue, Denies fever(s), Denies frequent falls, Denies lethargy and Denies weakness Eyes Eyes: Denies change in vision, Denies eye discharge, Denies irritation and Denies loss of vision ENT Ears, Nose, Mouth, and Throat: Denies change in voice, Denies dizziness, Denies neck pain, Denies sore throat and Denies throat swelling Cardiovascular Cardiovascular: Denies chest pain, Denies irregular heart rhythm, Denies lightheadedness, Denies palpitations, Reports dyspnea, Denies dyspnea on exertion and Denies orthopnea Respiratory Respiratory: Reports cough, Reports dyspnea, Denies dyspnea on exertion and Reports wheezing Gastrointestinal Gastrointestinal: Denies abdominal pain, Denies change in bowel habits, Denies diarrhea, Denies nausea and Denies vomiting Musculoskeletal Musculoskeletal: Denies neck pain and Denies numbness Integumentary/Breasts Skin/Breast: Denies pruritus, Denies erythema, Denies rash and Denies wounds Neurologic Neurologic: Denies behavioral changes, Denies confusion, Denies dizziness, Denies frequent falls, Denies loss of vision, Denies numbness and Denies weakness Psychiatric Psychiatric: Denies anxiety, Denies behavioral changes, Denies confusion, Denies depression, Denies homicidal ideation and Denies suicidal ideation Endocrine Endocrine: Denies fatigue, Denies flushing and Denies palpitations Hematologic/Lymphatic Hematologic/Lymphatic: Denies easy bruising Allergic/Immunologic Allergic/Immunologic: Denies urticaria, Denies throat swelling and Reports wheezing Patient History Medical History (Updated 07/09/20 @ 10:01 by Koby Cristina DO) Arthritis (Chronic Unknown) Chronic pain syndrome (Chronic Unknown) Depression (Chronic Unknown) Hepatitis C (Resolved Unknown) Hypertension (Chronic Unknown) Impotence (Chronic Unknown) Kidney stones (Resolved Unknown) Migraines (Chronic Unknown) Pneumonia (Resolved ~2018) Prostate cancer (Resolved Unknown) PTSD (post-traumatic stress disorder) (Chronic Unknown) Restless leg syndrome (Chronic Unknown) Skin cancer (Resolved Unknown) Surgical History History of back surgery (Resolved) History of carpal tunnel repair History of lumbar fusion (Resolved) History of tonsillectomy Hx of foot surgery (Resolved) Hx of joint replacement (Resolved) Hx of laminectomy (Resolved 10/2012) Status post cholecystectomy Status post knee surgery Family History Father Heart disease Mother No problems noted. Social History household members: spouse Smoking Status: Former smoker Tobacco: How many years used: 20 quit status: has quit before alcohol intake: former substance use type: former substance user and marijuana Smoking Status: Former smoker Substance Use Type: does not use and former substance user Exam Narrative Exam Narrative: GENERAL: [74] year old patient appears stated age. Well- nourished, well-developed patient, in moderate distress, noted wheezing HEAD: Atraumatic. Normocephalic. EYES: Pupils equal round and reactive. Extraocular motions intact. No scleral icterus. No injection or drainage. ENT: Nose without bleeding, purulent drainage. Throat without erythema, tonsillar hypertrophy or exudate. Airway patent. NECK: Trachea midline. Non tender CARDIOVASCULAR: Regular rate and rhythm without murmurs, gallops, or rubs. RESPIRATORY: Mild tachypnea with expiratory wheeze in all brown. No rales or rhonchi GASTROINTESTINAL: Abdomen soft, non-tender, nondistended. EXTREMITIES: No edema or joint tenderness. BACK: Nontender without deformity or crepitance. No flank tenderness. NEURO: AOx3. SKIN: No rash or erythema of visible areas Initial Vital Signs Initial Vital Signs: Vital Signs Pulse Rate 74 07/09/20 06:52 Pulse Oximetry 97 07/09/20 06:52 Course Orders Ordered: ED Orders 07/09/20 07:00 Basic Metabolic Panel Stat Complete Blood Count AUTO DIFF Stat 07/09/20 08:15 COVID19 -ED/INPAT/OR/L&D Stat 07/09/20 08:25 Troponin & CK Cardiac Panel Stat 07/09/20 08:54 XR acute abdomen series Stat Discontinued Medications Sodium Chloride (Normal Saline 0.9%) 1,000 mls @ 125 mls/hr IV CONT BENJAMÍN Last Infusion: 07/09/20 10:06 Dose: 125 mls/hr Documented by: Admin: 07/09/20 08:05 Dose: 125 mls/hr Documented by: JOSEPHINE Methylprednisolone (Solu-Medrol 125 Mg Vial) 125 mg IV NOW ONE Stop: 07/09/20 07:27 Last Admin: 07/09/20 08:06 Dose: 125 mg Documented by: JOSEPHINE Ondansetron HCl (Zofran) 4 mg IV NOW ONE Stop: 07/09/20 07:27 Last Admin: 07/09/20 08:06 Dose: 4 mg Documented by: JOSEPHINE Reevaluation(s) Reevaluation #1: Patient improving with above-stated therapies Vital Signs Vital signs: Vital Signs - 8 hr 07/09/20 06:52 07/09/20 06:55 07/09/20 06:59 Temperature 98.0 F Pulse Rate 74 62 88 Respiratory Rate 22 22 Blood Pressure 157/86 H Pulse Oximetry 97 96 98 07/09/20 07:00 07/09/20 07:30 07/09/20 08:00 Temperature Pulse Rate 73 74 74 Respiratory Rate Blood Pressure Pulse Oximetry 96 97 95 07/09/20 08:30 07/09/20 10:07 Temperature Pulse Rate 69 80 Respiratory Rate 16 Blood Pressure 158/72 H Pulse Oximetry 96 96 MDM - SOB/Dyspnea Lab Data Result diagrams: 07/09/20 07:00 07/09/20 07:00 Labs: Lab Results 07/09/20 07/09/20 07/09/20 Range/Units 07:00 07:00 08:15 WBC 8.0 (4.5-11.0) X10^3/uL RBC 4.39 L (4.5-5.9) X10^6/uL Hgb 11.7 L (13.5-17.5) g/dL Hct 35.2 L (41-53) % MCV 80.2 (80-100) fL MCH 26.6 (26-34) PG MCHC 33.2 (30-36) % RDW 14.9 H (11.6-14.8) % Plt Count 222 (150-400) X10^3/uL Neut % (Auto) 55.2 (50-75) % Lymph % (Auto) 23.3 L (25-40) % [place] % (Auto) 14.1 H (3-14) % Eos % (Auto) 6.1 H (2-4) % Baso % (Auto) 1.3 (0-2) % Neut # (Auto) 4400 (1813-1338) /uL Lymph # (Auto) 1900 (0597-0332) /uL [place] # (Auto) 1100 H (0-900) /uL Eos # (Auto) 500 H (0-450) /uL Baso # (Auto) 100 (0-100) /uL Sodium 138 (137-145) mmol/L Potassium 3.3 L (3.4-5.1) mmol/L Chloride 97 L (98-107) mmol/L Carbon Dioxide 30 (22-32) mmol/L BUN 17 (9-20) mg/dL Creatinine 0.73 (0.66-1.25) mg/dL Estimated GFR > 60.0 (>60) mL/min BUN/Creatinine Ratio 23.3 H (6-22) Glucose 131 H (80-110) mg/dL Calcium 8.9 (8.4-10.2) mg/dL Total Creatine Kinase (55-170) U/L CK-MB (CK-2) CK-MB (CK-2) Rel Index Troponin I (0.01-0.034) ng/mL COVID-19 PCR Negative (Negative) 07/09/20 Range/Units 08:25 WBC (4.5-11.0) X10^3/uL RBC (4.5-5.9) X10^6/uL Hgb (13.5-17.5) g/dL Hct (41-53) % MCV (80-100) fL MCH (26-34) PG MCHC (30-36) % RDW (11.6-14.8) % Plt Count (150-400) X10^3/uL Neut % (Auto) (50-75) % Lymph % (Auto) (25-40) % [place] % (Auto) (3-14) % Eos % (Auto) (2-4) % Baso % (Auto) (0-2) % Neut # (Auto) (5289-4564) /uL Lymph # (Auto) (1967-5731) /uL [place] # (Auto) (0-900) /uL Eos # (Auto) (0-450) /uL Baso # (Auto) (0-100) /uL Sodium (137-145) mmol/L Potassium (3.4-5.1) mmol/L Chloride (98-107) mmol/L Carbon Dioxide (22-32) mmol/L BUN (9-20) mg/dL Creatinine (0.66-1.25) mg/dL Estimated GFR (>60) mL/min BUN/Creatinine Ratio (6-22) Glucose (80-110) mg/dL Calcium (8.4-10.2) mg/dL Total Creatine Kinase 100 (55-170) U/L CK-MB (CK-2) TNP CK-MB (CK-2) Rel Index TNP Troponin I < 0.012 (0.01-0.034) ng/mL COVID-19 PCR (Negative) Discharge Plan Departure Patient Disposition: Home Clinical Impression: Atypical pneumonia Vomiting Qualifiers: Vomiting type: unspecified Vomiting Intractability: non-intractable Nausea presence: with nausea Qualified Code(s): R11.2 - Nausea with vomiting, unspecified Discharge Date/Time: 07/09/20 10:07 Instructions: DI for Atypical Pneumonia Activity Restrictions/Additional Instructions: *You have been diagnosed with [atypical pneumonia, asthma exacerbation, vomiting] *What to do: *Take medications as directed: Please take the extra steroid taper in place of your normal prednisone 5 mg per day, upon completion of the taper please resume your normal dosing regimen: Prescriptions sent to [facility] at your request *Follow up with your primary care provider in 2-3 days, call for an appointment. Let them know you were seen in the Emergency Department and that we ask that you be seen in follow up *Return to ER if you should have any new, worsening or concerning symptoms Prescriptions: New doxycycline hyclate 100 mg tablet 100 mg PO BID Qty: 20 RF: 0 prednisone 10 mg tablet See Rx Instructions .ROUTE .COMPLEX Qty: 30 RF: 0 ondansetron 4 mg tablet,disintegrating 4 mg PO Q8H PRN (Reason: nausea and vomiting) Qty: 10 RF: 0 No Action adjuvant AS01B (PF)vial 1 of 2 [Shingrix Adjuvant Component-PF] suspension 0.5 ml IM ONCE Qty: 0.5 RF: 0 albuterol sulfate 90 mcg/actuation HFA aerosol inhaler 1 inh INHALATION Q4-6H PRN (Reason: shortness of breath) Qty: 18 RF: 4 hydrochlorothiazide 12.5 mg capsule 12.5 mg PO DAILY Qty: 90 RF: 1 metoprolol succinate 100 mg tablet extended release 24 hr See Rx Instructions .ROUTE .COMPLEX Qty: 90 RF: 1 omeprazole 40 mg capsule,delayed release(DR/EC) 40 mg PO Q DAY Qty: 90 RF: 1 fluticasone propionate 50 mcg/actuation spray,suspension 1 spray Intranasal BID Qty: 1 RF: 3 losartan 100 mg tablet 100 mg PO DAILY Qty: 90 RF: 1 amlodipine 10 mg tablet 10 mg PO QDAY IN PM Qty: 90 RF: 0 fluoxetine 20 mg capsule 20 mg PO QDAY Qty: 90 RF: 1 fluoxetine 10 mg capsule 10 mg PO DAILY Qty: 90 RF: 1 oxycodone 10 mg tablet 10 mg PO Q6-8H PRN (Reason: chronic pain) Qty: 120 RF: 0 aspirin 81 mg tablet,delayed release (DR/EC) 81 mg PO DAILY RF: 0 albuterol sulfate 2.5 mg /3 mL (0.083 %) solution for nebulization 2.5 mg Continuous Nebulization Q6HP PRN (Reason: shortness of breath or wheezing) Qty: 360 RF: 1 pregabalin [Lyrica] 50 mg capsule 50 mg PO BID Qty: 180 RF: 3 azithromycin 250 mg tablet See Rx Instructions .ROUTE .COMPLEX Qty: 6 RF: 0 Referrals: Edilberto Snell, [Primary Care Provider] -
[2020-07-09 07:21] LABS: Add Manual Diff / Slide Review NO; Basophils Absolute Auto 100 /uL (0-100); Basophils Percent Auto 1.3 % (0-2); Eosinophils Absolute Auto 500 /uL (0-450); Eosinophils Percent Auto 6.1 % (2-4); Hematocrit 35.2 % (41-53); Hemoglobin 11.7 g/dL (13.5-17.5); Lymphocytes Absolute Auto 1900 /uL (1100-4500); Lymphocytes Percent Auto 23.3 % (25-40); Mean Corpuscular HGB Conc 33.2 % (30-36); Mean Corpuscular Hemoglobin 26.6 PG (26-34); Mean Corpuscular Volume 80.2 fL (80-100); Monocytes Absolute Auto 1100 /uL (0-900); Monocytes Percent Auto 14.1 % (3-14); Neutrophils Absolute Auto 4400 /uL (1500-7000); Neutrophils Percent Auto 55.2 % (50-75); Platelet Count 222 X10^3/uL (150-400); Red Blood Cell Count 4.39 X10^6/uL (4.5-5.9); Red Cell Distribution Width 14.9 % (11.6-14.8)
[2020-07-09 07:32] LABS: BUN Creatinine Ratio 23.3 (6-22); Blood Urea Nitrogen 17 mg/dL (9-20); Calcium 8.9 mg/dL (8.4-10.2); Carbon Dioxide 30 mmol/L (22-32); Chloride 97 mmol/L (98-107); Estimated Glomerular Filt Rate > 60.0 mL/min (>60); Glucose 131 mg/dL (80-110); HEMOLYSIS < 15 (0-50); Potassium 3.3 mmol/L (3.4-5.1); Sodium 138 mmol/L (137-145)
[2020-07-09] MEDS: SODIUM CHLORIDE 0.9% 1,000 ML 125 ML IV (08:05)
[2020-07-09] MEDS: methylPREDNISolone 125 MG/2 ML VIAL IV (08:06)
[2020-07-09] MEDS: ONDANSETRON 4 MG/2 ML INJ IV (08:06)
[2020-07-09 08:32] LABS: Creatine Kinase 100 U/L (55-170)
[2020-07-09 08:45] LABS: Troponin I < 0.012 ng/mL (0.01-0.034)
[2020-07-09 08:47] LABS: COVID19 -Nasal RAPID Negative (Negative)
--- NOTE | 2020-07-09 08:54 | DI.RAD.S_ITS ---
PROCEDURE: XR ACUTE ABDOMEN SERIES INDICATIONS: N/V, shortness of breath TECHNIQUE: One view chest and two views of the abdomen were acquired. COMPARISON: [facility], CT, ABDOMEN/PELVIS WITH CONTRAST, 02/11/2017, 15:57. [facility], CT, ABDOMEN/PELVIS WITH CONTRAST, 05/12/2015, 11:13. [facility], CT, CT CHEST WO CON, 01/14/2020, 5:48. [facility], CR, XR CHEST 1V, 01/14/2020, 5:18. [facility], CR, XR CHEST 2V, 06/11/2020, 14:02. FINDINGS: Surgical changes and devices: Right shoulder arthroplasty hardware is seen. Cholecystectomy clips are seen. Plate and screw fixation is seen of the pubis and the right iliac bone. Numerous pelvic clips are seen, which are attributed to lymph node dissection. Chest: Lungs are clear. The cardiac contours are within normal limits. The aorta demonstrates calcification and tortuosity. No pleural effusions. No pneumoperitoneum. Abdomen: Bowel gas pattern is normal. A moderate amount of stool is seen within the colon. No suspicious calcifications. Visualized solid organ contours appear normal. Bones: No suspicious bony lesions. Age-appropriate bony degenerative changes are seen. Mild levoconvex scoliotic curvature is noted. IMPRESSION: Clear lungs. There is a moderate amount of stool seen within the colon. Please correlate with an underlying history of constipation. Postoperative and degenerative changes are seen. Dictated by: Gregg Vásquez M.D. on 07/09/2020 at 8:51 Approved by: Gregg Vásquez M.D. on 07/09/2020 at 8:56
== END 2020-07-09 10:07 | disposition home or self-care (01) ==
PROVIDERS: Emergency Provider Emergency Medicine; Family Provider Family Medicine; PCP Family Medicine
DX: J18.9 Pneumonia, unspecified organism (principal); R11.2 Nausea with vomiting, unspecified
CPT/HCPCS: 36415; 74022; 80048; 82550; 84484; 85025; 87635; 96361; 96374; 96375; 99284; J2405; J2930

== ENCOUNTER → 2020-09-01 10:50 | Outpatient (CLI) | payer MEDICARE, OTHER, SELFPAY ==
[2020-09-01 11:32] LABS: COVID19 -Nasal RAPID Negative (Negative)
== END ==
PROVIDERS: Family Provider Family Medicine; PCP Family Medicine; Referring Provider Internal Medicine; Visit Provider Internal Medicine
DX: Z11.59 Encounter for screening for other viral diseases (principal)
CPT/HCPCS: 87635

== ENCOUNTER → 2020-09-21 10:01 | Outpatient (CLI) | payer MEDICARE, OTHER, SELFPAY ==
[2020-09-21 11:27] LABS: COVID19 -Nasal RAPID Negative (Negative)
== END ==
PROVIDERS: Family Provider Family Medicine; PCP Family Medicine; Referring Provider Internal Medicine; Visit Provider Internal Medicine
DX: Z11.59 Encounter for screening for other viral diseases (principal)
CPT/HCPCS: 87635; C9803

== ENCOUNTER → 2020-09-22 08:47 | Outpatient (CLI) | payer MEDICARE, OTHER, SELFPAY ==
--- NOTE | 2020-09-30 17:31 | PM.PFT.1 ---
Pulmonary Function Test Referral & Results Date Patient Seen: 09/22/20 Requesting provider: Kwame Mi Results: The spirometry demonstrates an FVC of 3.70 L which is 98% of predicted. The FEV1 was measured at 2.20 L which is 81% of predicted. The FEV1/FVC ratio was 60 which is 82% of predicted. Following the administration of bronchodilator there was a 17% improvement in FEV1 and a 64% improvement in FEF 25-75%. Lung volumes show an SVC of 3.54 L which is 87% of predicted. The diffusing capacity was measured at 24.38 which is 86% of predicted. The maximum voluntary ventilation was minimally reduced Interpretation: This study demonstrates mild obstructive lung disease based on reduction FEV1 and FEV1/FVC ratio. There is evidence of limited benefit following bronchodilator as above There is minimal reduction in lung volumes suggesting minimal restrictive lung disease There is also very minimal reduction in diffusing capacity suggesting the possibility of an element of disease at the capillary alveolar level as well Compared to PFTs performed in October 2017, current study is essentially unchanged
== END ==
PROVIDERS: Family Provider Family Medicine; PCP Family Medicine; Referring Provider Internal Medicine Critical Care Medicine; Visit Provider Internal Medicine Critical Care Medicine
DX: J45.41 Moderate persistent asthma with (acute) exacerbation (principal); Z87.891 Personal history of nicotine dependence
CPT/HCPCS: 94060; 94726; 94729

== ENCOUNTER → 2020-09-29 13:03 | Outpatient (CLI) | payer MEDICARE, OTHER, SELFPAY ==
--- NOTE | 2020-09-29 13:05 | DI.MRI.S_ITS ---
PROCEDURE: MR LUMBAR SPINE WO/W CON INDICATIONS: Progressive lower back pain with lower extremity radiculopat TECHNIQUE: Noncontrast sagittal T1 spin echo and T2 fast spin echo, CORONAL T2, sagittal STIR, axial T1 and T2 fast spin echo through the lumbar spine. After the administration of contrast, sagittal and axial T1 spin echo with fat saturation through the lumbar spine. COMPARISON: [facility], CR, SPINE LUMB 2 OR 3VW, 06/03/2017, 14:16. [facility], MR, L-SPINE W&WO CONTRAST, 06/10/2017, 9:17. FINDINGS: Image quality: Excellent. Alignment and curvature: 5 lumbar type vertebral bodies are present by plain film. There is mild leftward curvature of the mid/upper lumbar spine. Loss of normal lumbar lordosis is present. There is mild grade 1 retrolisthesis of L1 on L2 and L3 on L4. L2 hemangioma is present. Increased, moderate reactive signal within the endplates adjacent to the L1-L2 intervertebral disc. Mild reactive signal within the endplates adjacent to the L2-L3, L3-L4, L4-L5, and L5-S1 intervertebral discs. Marrow: Marrow is of normal overall signal. No acute vertebral body compression fractures. No suspicious marrow enhancement. Left hemilaminotomy at L1-L2. Spinal cord: Conus medullaris terminates at the mid L1 level. Visualized spinal cord demonstrates normal signal, without suspicious enhancement. Paraspinous soft tissues: No paravertebral masses or abnormal enhancement. L1-L2: Severe disc height loss and desiccation. Moderate diffuse disc bulge/osteophyte. Mild facet and ligamentum flavum hypertrophy. Moderate canal stenosis. Severe bilateral foraminal stenosis. Bilateral L1 nerve root compression. No change. L2-L3: Mild disc height loss. Moderate disc desiccation. Mild diffuse disc bulge with superimposed right paracentral protrusion. Mild facet hypertrophy bilaterally. Moderate canal stenosis. Moderate bilateral foraminal stenosis. No change. L3-L4: Moderate disc height loss and desiccation. Moderate diffuse disc bulge with superimposed central disc extrusion which extends inferiorly within the anterior epidural space, new since the prior examination. Mild bilateral facet hypertrophy. The increased, moderate canal stenosis. No change in moderate right and severe left foraminal stenosis. Left L3 nerve root compression is present, as before. L4-L5: Moderate disc desiccation. Mild diffuse disc bulge with superimposed broad-based right posterolateral protrusion, increased from the prior examination. Moderate bilateral facet hypertrophy. Mild canal stenosis. Moderate left and severe right foraminal stenosis. Right L4 nerve root compression, new since the prior examination. L5-S1: Mild disc height loss. Moderate disc desiccation. Moderate bilateral facet hypertrophy. Moderate canal stenosis. Moderate subarticular foraminal stenosis bilaterally, left greater than right. No change. IMPRESSION: 1. Multilevel degenerative disc and facet disease, as well as ligamentum flavum hypertrophy and epidural lipomatosis. 2. Multilevel canal stenoses, worst at L1-L2, L2-L3, L3-L4, and L5-S1, where there are moderate canal stenoses as described above. 3. Multilevel foraminal stenosis, worst at L1-L2, L3-L4, and L4-L5 where there is associated intraforaminal nerve root compression. Recommend correlation with clinical symptoms to ascertain relevance of these findings. 4. Postsurgical sequelae. Dictated by: Steve Clement M.D. on 09/29/2020 at 15:11 Approved by: Steve Clement M.D. on 09/29/2020 at 15:19
== END ==
PROVIDERS: Family Provider Family Medicine; PCP Family Medicine; Referring Provider Family Medicine; Visit Provider Family Medicine
DX: M51.16 Intervertebral disc disorders with radiculopathy, lumbar region (principal); M48.061 Spinal stenosis, lumbar region without neurogenic claudication; M48.07 Spinal stenosis, lumbosacral region; G60.3 Idiopathic progressive neuropathy; M54.5 Low back pain; G89.4 Chronic pain syndrome; E88.2 Lipomatosis, not elsewhere classified
CPT/HCPCS: 72158; A9579

== ENCOUNTER 2020-11-07 17:38 | Inpatient (IN) | payer MEDICARE, OTHER, SELFPAY ==
[2020-11-07] VITALS (13 sets, daily range): BP systolic 123–152; BP diastolic 58–74; PULSE 81–100; RESP 16–36; TEMP 36.1–39.1; O2SAT 91–97; BMI 35.3
--- NOTE | 2020-11-07 17:47 | DI.RAD.S_ITS ---
PROCEDURE: XR CHEST 1V INDICATIONS: short of breath TECHNIQUE: One view of the chest was acquired. COMPARISON: [facility], CT, CT CHEST WO CON, 01/14/2020, 5:48. [facility], CR, XR CHEST 2V, 06/11/2020, 14:02. [facility], CR, XR CHEST 1V, 01/14/2020, 5:18. FINDINGS: Surgical changes and devices: None. Lungs and pleura: Low lung volumes. No focal consolidation. Increased interstitial markings in both lungs, which may be a function of hypoinflation although mild pulmonary edema would appear similar. Hazy ground-glass opacity in the right mid lung and right lung base, nonspecific but compatible with either pulmonary edema or infection. No pleural effusion or pneumothorax. Mediastinum: Mediastinal contours appear normal. Heart size is normal. Bones and chest wall: No suspicious bony lesions. Overlying soft tissues appear unremarkable. IMPRESSION: Ground-glass opacity in the right mid lung and right lung base, nonspecific but potentially representing edema or infection. Increased interstitial markings in both lungs raise additional concern for pulmonary edema. Correlate with BNP and white blood cell count. Dictated by: Blake Brock M.D. on 11/07/2020 at 18:25 Approved by: Blake Brock M.D. on 11/07/2020 at 18:27
[2020-11-07] MEDS: LIDOCAINE 2% (UROJET) 5 ML GEL (18:09)
[2020-11-07] MEDS: HYDROMORPHONE 1 MG INJ (18:09)
[2020-11-07] MEDS: KETOROLAC 60 MG/2 ML VIAL 15 MG IV (18:14)
[2020-11-07] MEDS: METOCLOPRAMIDE 10 MG/2 ML INJ IV (18:14)
[2020-11-07 18:20] LABS: Add Manual Diff / Slide Review NO; Basophils Absolute Auto 0 /uL (0-100); Basophils Percent Auto 0.2 % (0-2); Eosinophils Absolute Auto 0 /uL (0-450); Hematocrit 35.4 % (41-53); Lymphocytes Absolute Auto 700 /uL (1100-4500); Lymphocytes Percent Auto 3.7 % (25-40); Mean Corpuscular HGB Conc 33.8 % (30-36); Mean Corpuscular Hemoglobin 27.2 PG (26-34); Mean Corpuscular Volume 80.6 fL (80-100); Monocytes Absolute Auto 1800 /uL (0-900); Monocytes Percent Auto 9.8 % (3-14); Neutrophils Absolute Auto 15600 /uL (1500-7000); Neutrophils Percent Auto 86.3 % (50-75); Platelet Count 191 X10^3/uL (150-400); Red Cell Distribution Width 14.8 % (11.6-14.8); White Blood Cell Count 18.1 X10^3/uL (4.5-11.0)
[2020-11-07 18:24] LABS: Fractionated Inspired Oxygen 32; HCO3 ABG 29 mmol/L (22-26); Oxygen Saturation ABG 97 % (95-100); PCO2 ABG 37.6 mmHg (35-45); PO2 ABG 84 mmHg (80-100); TCO2 ABG 30 mmol/L (21-31); pH ABG 7.49 (7.35-7.45)
[2020-11-07 18:28] LABS: INR 1.3 (0.9-1.3)
[2020-11-07 18:30] LABS: PTT Partial Thromboplastin Tim 30 SECONDS (26.4-36.2)
[2020-11-07 18:32] LABS: COVID19 -Nasal RAPID Negative (Negative)
[2020-11-07 18:34] LABS: Lactate (Lactic Acid) 2.3 mmol/L (0.7-2.1)
[2020-11-07 18:36] LABS: Alanine Aminotransferase 17 IU/L (<50); Albumin 3.9 g/dL (3.5-5.0); Albumin Globulin Ratio 1.5 (1.0-2.8); Alkaline Phosphatase 60 U/L (38-126); Aspartate Aminotransferase 24 IU/L (17-59); BUN Creatinine Ratio 22.1 (6-22); Bilirubin Total 0.8 mg/dL (0.2-1.3); Blood Urea Nitrogen 15 mg/dL (9-20); Calcium 8.3 mg/dL (8.4-10.2); Carbon Dioxide 31 mmol/L (22-32); Chloride 98 mmol/L (98-107); Creatine Kinase 96 U/L (55-170); Estimated Glomerular Filt Rate > 60.0 mL/min (>60); Globulin 2.6 g/dL (1.7-4.1); Glucose 130 mg/dL (80-110); HEMOLYSIS < 15 (0-50); Sodium 136 mmol/L (137-145); Total Protein 6.5 g/dL (6.3-8.2)
--- NOTE | 2020-11-07 18:36 | ED.GENADULT ---
HPI - General Adult General Chief complaint: Fever Stated complaint: lethargic/fever Time Seen by Provider: 11/07/20 17:47 Source: patient and EMS Mode of arrival: EMS History of Present Illness HPI narrative: 75-year-old gentleman with a history of coronary artery disease, hypertension, hepatitis-C, severe back pain and opioid dependent presents with 3 days of increasing cough, wheeze, noted sputum production beginning this morning, general malaise, increasing arthralgias, mild decrease in his overall mental status and alertness and this morning had some vomiting. He has not had any diarrhea. He does not complain of specific chest pain but does note that his chest feels tight from wheezing. He does complain of feeling short of breath. He has noted no increase in lower extremity edema and is not specifically noticing lower abdominal pain. Related Data Home Medications Medication Instructions Recorded Confirmed aspirin 81 mg tablet,delayed 81 mg PO DAILY 07/02/19 10/04/20 release adalimumab SUBCUT 07/11/20 10/04/20 Previous Rx's Medication Instructions Recorded adjuvant AS01B (PF)vial 1 of 2 0.5 ml IM ONCE #0.5 ml 09/29/18 albuterol sulfate 90 mcg/actuation 1 inh INHALATION Q4-6H PRN #18 gram 11/20/19 aerosol inhaler fluticasone propionate 50 1 spray INTRANASAL BID #1 bot 03/09/20 mcg/actuation nasal spray,suspension losartan 100 mg tablet 100 mg PO DAILY #90 tab 05/06/20 fluoxetine 10 mg capsule 10 mg PO DAILY #90 cap 07/04/20 fluoxetine 20 mg capsule 20 mg PO QDAY #90 cap 07/04/20 ondansetron 4 mg PO Q8H PRN #10 tab 07/09/20 amlodipine 10 mg tablet 10 mg PO QDAY IN PM #90 tab 08/05/20 hydrochlorothiazide 12.5 mg capsule 12.5 mg PO DAILY #90 cap 08/05/20 omeprazole 40 mg capsule,delayed 40 mg PO Q DAY #90 cap 08/05/20 release methocarbamol 500 mg tablet 500 mg PO TID PRN #90 tab 09/20/20 pregabalin 75 mg capsule 75 mg PO Q8H #270 cap 09/20/20 albuterol sulfate 2.5 mg CONTINUOUS NEBULIZATION 10/04/20 Q6HP PRN #360 ml metoprolol succinate 100 mg See Rx Instructions .ROUTE 10/12/20 tablet,extended release 24 hr .COMPLEX #90 tablet oxycodone 10 mg tablet 10 mg PO Q6-8H PRN #120 tab 10/31/20 Disabled [address]ing Permit #1 ea 11/01/20 Allergies Allergy/AdvReac Type Severity Reaction Status Date / Time cyclobenzaprine Allergy Verified 07/11/20 13:35 [From Flexeril] acetaminophen [ACETAMINOPHEN] AdvReac Unknown Can't take Verified 07/11/20 13:35 r/t Hep C Review of Systems Review of Systems Narrative: Remainder of review of systems including constitutional, ENT, cardiovascular, respiratory, GI, , musculoskeletal, skin, neurologic and psychiatric systems reviewed and are unremarkable except as noted in HPI. Patient History Medical History Acute exacerbation of chronic bronchitis Arthritis (Unknown) Chronic ankle pain, bilateral Chronic pain syndrome (Unknown) Depression (Unknown) Foraminal stenosis of lumbar region Hepatitis C (Unknown) Hypertension (Unknown) Impotence (Unknown) Kidney stones (Unknown) Migraines (Unknown) Peripheral neuropathy Pneumonia (~2017) Prostate cancer (Unknown) PTSD (post-traumatic stress disorder) (Unknown) Restless leg syndrome (Unknown) Rheumatoid arthritis Skin cancer (Unknown) Surgical History History of back surgery History of carpal tunnel repair History of lumbar fusion History of tonsillectomy Hx of foot surgery Hx of joint replacement Hx of laminectomy (10/2012) Status post cholecystectomy Status post knee surgery Family History Father Heart disease Mother No problems noted. Social History household members: spouse Smoking Status: Former smoker Tobacco: How many years used: 20 quit status: has quit before alcohol intake: former substance use type: former substance user and marijuana Smoking Status: Former smoker Substance Use Type: does not use and former substance user Exam Narrative Exam Narrative: General: Moderately ill appearing but in no acute distress. Slight confusion but able to participate in history. Well-nourished well-developed HEENT: Moist mucous membranes, normal sclera with reactive pupils, Neck: No JVD, supple Respiratory: Lungs with rhonchi in the right lower lobe and scattered wheeze in all lung brown.. Full and symmetrical air movement Cardiac: Regular rate and rhythm no murmurs no bruits Abdomen: Soft, nontender, good bowel tones, no flank pain Skin: Warm and dry, well perfused, no rashes Neurologic: Slightly slowed responses and mild confusion with no obvious asymmetries or abnormalities, global weakness Extremities: No trauma, well perfused Psych: Cooperative, mild confusion Initial Vital Signs Initial Vital Signs: Vital Signs Temperature 101.9 F H 11/07/20 17:38 Pulse Rate 100 H 11/07/20 17:38 Respiratory Rate 36 H 11/07/20 17:38 Blood Pressure 149/68 H 11/07/20 17:38 Pulse Oximetry 91 11/07/20 17:38 Course Orders Ordered: ED Orders 11/07/20 17:47 XR chest 1V Stat 11/07/20 17:50 COVID19 Stat Complete Blood Count AUTO DIFF Stat Comprehensive Metabolic Panel Stat Lactate (Lactic Acid) Stat NT-proBNP (BNP-Adult 18+) Stat Partial Thromboplastin Time Stat Procalcitonin Stat Prothrombin Time INR Stat Troponin & CK Cardiac Panel Stat 11/07/20 18:00 ABG [Arterial Blood Gas] Stat 11/07/20 18:05 Urinalysis and Microscopic Stat 11/07/20 18:30 Blood Culture Stat 11/07/20 19:58 Respiratory Panel (Film Array) Stat Sputum Culture Stat Sodium Chloride (Normal Saline 0.9%) 1,000 mls @ 200 mls/hr IV CONT BENJAMÍN Last Admin: 11/07/20 18:46 Dose: 200 mls/hr Documented by: Potassium Chloride 20 meq/ (Sodium Chloride) 260 mls @ 130 mls/hr IV NOW ONE Stop: 11/07/20 21:05 Last Admin: 11/07/20 19:29 Dose: 130 mls/hr Documented by: Discontinued Medications Albuterol/Ipratropium (Albuterol/Ipratropium 3 Ml Ampul) 3 ml INH NOW ONE Stop: 11/07/20 19:24 Last Admin: 11/07/20 19:42 Dose: 3 ml Documented by: Hydromorphone HCl (Hydromorphone 1 Mg Inj) 1 mg IV NOW ONE Stop: 11/07/20 18:39 Last Admin: 11/07/20 18:47 Dose: 1 mg Documented by: Cefepime HCl 2 gm/ Sodium (Chloride) 100 mls @ 200 mls/hr IV NOW ONE Stop: 11/07/20 18:39 Last Infusion: 11/07/20 19:24 Dose: Infused Documented by: Vancomycin HCl (Vancomycin) 1,000 mg in 200 mls @ 200 mls/hr IV NOW ONE Stop: 11/07/20 19:37 Last Infusion: 11/07/20 19:48 Dose: Infused Documented by: Ketorolac Tromethamine (Ketorolac 60 Mg/2 Ml Vial) 15 mg IV NOW ONE Stop: 11/07/20 18:08 Last Admin: 11/07/20 18:14 Dose: 15 mg Documented by: FILEMON Methylprednisolone (Methylprednisolone 125 Mg/2 Ml Vial) 125 mg IV NOW ONE Stop: 11/07/20 19:24 Last Admin: 11/07/20 19:34 Dose: 125 mg Documented by: Metoclopramide HCl (Metoclopramide 10 Mg/2 Ml Inj) 10 mg IV NOW ONE Stop: 11/07/20 18:08 Last Admin: 11/07/20 18:14 Dose: 10 mg Documented by: FILEMON Oxycodone HCl (Oxycodone Ir 5 Mg Tablet) 10 mg PO NOW ONE Stop: 11/07/20 19:35 Last Admin: 11/07/20 19:40 Dose: 10 mg Documented by: Oxycodone HCl (Oxycodone Ir 5 Mg Tablet) 5 mg PO NOW ONE Stop: 11/07/20 19:39 Last Admin: 11/07/20 19:42 Dose: Not Given Documented by: Potassium Chloride (Potassium Chloride 20 Meq/15 Ml Udc) 40 meq PO NOW ONE Stop: 11/07/20 19:07 Last Admin: 11/07/20 19:29 Dose: 40 meq Documented by: Vital Signs Vital signs: Vital Signs - 8 hr 11/07/20 17:38 11/07/20 18:14 11/07/20 18:35 Temperature 101.9 F H 101.9 F H 102.4 F H Pulse Rate 100 H 93 H Respiratory Rate 36 H 24 Blood Pressure 149/68 H Pulse Oximetry 91 97 11/07/20 18:45 11/07/20 19:00 11/07/20 19:15 Temperature 102.4 F H 102.2 F H 101.8 F H Pulse Rate 93 H 93 H 97 H Respiratory Rate 24 22 21 Blood Pressure 152/70 H 137/63 133/62 Pulse Oximetry 97 97 97 11/07/20 19:30 11/07/20 19:44 11/07/20 19:45 Temperature 101.3 F H 101.1 F H Pulse Rate 92 H 91 H Respiratory Rate 20 20 Blood Pressure 134/74 136/69 Pulse Oximetry 97 95 Medical Decision Making Medical Records Medical records reviewed: Yes I reviewed the patient's medical records. Lab Data Lab results reviewed: Yes I reviewed the patient's lab results. Result diagrams: 11/07/20 17:50 11/07/20 17:50 Labs: Lab Results 11/07/20 11/07/20 11/07/20 Range/Units 17:50 17:50 17:50 WBC 18.1 H (4.5-11.0) X10^3/uL RBC 4.40 L (4.5-5.9) X10^6/uL Hgb 12.0 L (13.5-17.5) g/dL Hct 35.4 L (41-53) % MCV 80.6 (80-100) fL MCH 27.2 (26-34) PG MCHC 33.8 (30-36) % RDW 14.8 (11.6-14.8) % Plt Count 191 (150-400) X10^3/uL Neut % (Auto) 86.3 H (50-75) % Lymph % (Auto) 3.7 L (25-40) % [place] % (Auto) 9.8 (3-14) % Eos % (Auto) 0.0 L (2-4) % Baso % (Auto) 0.2 (0-2) % Neut # (Auto) 40619 H (7299-6586) /uL Lymph # (Auto) 700 L (6604-0476) /uL [place] # (Auto) 1800 H (0-900) /uL Eos # (Auto) 0 (0-450) /uL Baso # (Auto) 0 (0-100) /uL PT 15.0 H (10.1-12.7) SECONDS INR 1.3 (0.9-1.3) APTT 30 (26.4-36.2) SECONDS ABG pH (7.35-7.45) ABG pCO2 (35-45) mmHg ABG pO2 (80-100) mmHg ABG HCO3 (22-26) mmol/L ABG Total CO2 (21-31) mmol/L ABG O2 Saturation (95-100) % ABG Base Excess (-2-2) mmol/L FiO2 Sodium 136 L (137-145) mmol/L Potassium 3.0 L (3.4-5.1) mmol/L Chloride 98 (98-107) mmol/L Carbon Dioxide 31 (22-32) mmol/L BUN 15 (9-20) mg/dL Creatinine 0.68 (0.66-1.25) mg/dL Estimated GFR > 60.0 (>60) mL/min BUN/Creatinine Ratio 22.1 H (6-22) Glucose 130 H (80-110) mg/dL Lactate (0.7-2.1) mmol/L Calcium 8.3 L (8.4-10.2) mg/dL Total Bilirubin 0.8 (0.2-1.3) mg/dL AST 24 (17-59) IU/L ALT 17 (<50) IU/L Alkaline Phosphatase 60 (38-126) U/L Total Creatine Kinase 96 (55-170) U/L CK-MB (CK-2) TNP CK-MB (CK-2) Rel Index TNP Troponin I 0.014 (0.01-0.034) ng/mL NT-Pro-B Natriuret Pep 829 H (<450) pg/mL Total Protein 6.5 (6.3-8.2) g/dL Albumin 3.9 (3.5-5.0) g/dL Globulin 2.6 (1.7-4.1) g/dL Albumin/Globulin Ratio 1.5 (1.0-2.8) Procalcitonin (<0.5) ng/mL Urine Color Urine Appearance Urine pH (4.5-8.0) Ur Specific [place] (1.000-1.035) Urine Protein (Negative) Urine Glucose (UA) (Negative) g/dL Urine Ketones (NEGATIVE) Urine Occult Blood (Negative) Urine Nitrate (Negative) Urine Bilirubin (NEGATIVE) Urine Urobilinogen (0.2) E.U./dL Ur Leukocyte Esterase (NEGATIVE) Urine RBC (0-5/HPF) Urine WBC (0-5/HPF) Ur Transition Epith Cell (0-5/HPF) Urine Bacteria (None) Ur Culture Indicated? SARS-CoV-2 (PCR) (Negative) 11/07/20 11/07/20 11/07/20 Range/Units 17:50 17:50 17:50 WBC (4.5-11.0) X10^3/uL RBC (4.5-5.9) X10^6/uL Hgb (13.5-17.5) g/dL Hct (41-53) % MCV (80-100) fL MCH (26-34) PG MCHC (30-36) % RDW (11.6-14.8) % Plt Count (150-400) X10^3/uL Neut % (Auto) (50-75) % Lymph % (Auto) (25-40) % [place] % (Auto) (3-14) % Eos % (Auto) (2-4) % Baso % (Auto) (0-2) % Neut # (Auto) (1907-9962) /uL Lymph # (Auto) (0439-3966) /uL [place] # (Auto) (0-900) /uL Eos # (Auto) (0-450) /uL Baso # (Auto) (0-100) /uL PT (10.1-12.7) SECONDS INR (0.9-1.3) APTT (26.4-36.2) SECONDS ABG pH (7.35-7.45) ABG pCO2 (35-45) mmHg ABG pO2 (80-100) mmHg ABG HCO3 (22-26) mmol/L ABG Total CO2 (21-31) mmol/L ABG O2 Saturation (95-100) % ABG Base Excess (-2-2) mmol/L FiO2 Sodium (137-145) mmol/L Potassium (3.4-5.1) mmol/L Chloride (98-107) mmol/L Carbon Dioxide (22-32) mmol/L BUN (9-20) mg/dL Creatinine (0.66-1.25) mg/dL Estimated GFR (>60) mL/min BUN/Creatinine Ratio (6-22) Glucose (80-110) mg/dL Lactate 2.3 H (0.7-2.1) mmol/L Calcium (8.4-10.2) mg/dL Total Bilirubin (0.2-1.3) mg/dL AST (17-59) IU/L ALT (<50) IU/L Alkaline Phosphatase (38-126) U/L Total Creatine Kinase (55-170) U/L CK-MB (CK-2) CK-MB (CK-2) Rel Index Troponin I (0.01-0.034) ng/mL NT-Pro-B Natriuret Pep (<450) pg/mL Total Protein (6.3-8.2) g/dL Albumin (3.5-5.0) g/dL Globulin (1.7-4.1) g/dL Albumin/Globulin Ratio (1.0-2.8) Procalcitonin 6.75 H (<0.5) ng/mL Urine Color Urine Appearance Urine pH (4.5-8.0) Ur Specific [place] (1.000-1.035) Urine Protein (Negative) Urine Glucose (UA) (Negative) g/dL Urine Ketones (NEGATIVE) Urine Occult Blood (Negative) Urine Nitrate (Negative) Urine Bilirubin (NEGATIVE) Urine Urobilinogen (0.2) E.U./dL Ur Leukocyte Esterase (NEGATIVE) Urine RBC (0-5/HPF) Urine WBC (0-5/HPF) Ur Transition Epith Cell (0-5/HPF) Urine Bacteria (None) Ur Culture Indicated? SARS-CoV-2 (PCR) Negative (Negative) 11/07/20 11/07/20 Range/Units 18:00 18:05 WBC (4.5-11.0) X10^3/uL RBC (4.5-5.9) X10^6/uL Hgb (13.5-17.5) g/dL Hct (41-53) % MCV (80-100) fL MCH (26-34) PG MCHC (30-36) % RDW (11.6-14.8) % Plt Count (150-400) X10^3/uL Neut % (Auto) (50-75) % Lymph % (Auto) (25-40) % [place] % (Auto) (3-14) % Eos % (Auto) (2-4) % Baso % (Auto) (0-2) % Neut # (Auto) (0911-7922) /uL Lymph # (Auto) (5834-5895) /uL [place] # (Auto) (0-900) /uL Eos # (Auto) (0-450) /uL Baso # (Auto) (0-100) /uL PT (10.1-12.7) SECONDS INR (0.9-1.3) APTT (26.4-36.2) SECONDS ABG pH 7.49 H (7.35-7.45) ABG pCO2 37.6 (35-45) mmHg ABG pO2 84 (80-100) mmHg ABG HCO3 29 H (22-26) mmol/L ABG Total CO2 30 (21-31) mmol/L ABG O2 Saturation 97 (95-100) % ABG Base Excess 6.0 H (-2-2) mmol/L FiO2 32 Sodium (137-145) mmol/L Potassium (3.4-5.1) mmol/L Chloride (98-107) mmol/L Carbon Dioxide (22-32) mmol/L BUN (9-20) mg/dL Creatinine (0.66-1.25) mg/dL Estimated GFR (>60) mL/min BUN/Creatinine Ratio (6-22) Glucose (80-110) mg/dL Lactate (0.7-2.1) mmol/L Calcium (8.4-10.2) mg/dL Total Bilirubin (0.2-1.3) mg/dL AST (17-59) IU/L ALT (<50) IU/L Alkaline Phosphatase (38-126) U/L Total Creatine Kinase (55-170) U/L CK-MB (CK-2) CK-MB (CK-2) Rel Index Troponin I (0.01-0.034) ng/mL NT-Pro-B Natriuret Pep (<450) pg/mL Total Protein (6.3-8.2) g/dL Albumin (3.5-5.0) g/dL Globulin (1.7-4.1) g/dL Albumin/Globulin Ratio (1.0-2.8) Procalcitonin (<0.5) ng/mL Urine Color Yellow Urine Appearance Clear Urine pH 7.0 (4.5-8.0) Ur Specific [place] <=1.005 (1.000-1.035) Urine Protein Negative (Negative) Urine Glucose (UA) Negative (Negative) g/dL Urine Ketones 1+ H (NEGATIVE) Urine Occult Blood Negative (Negative) Urine Nitrate Negative (Negative) Urine Bilirubin Negative (NEGATIVE) Urine Urobilinogen 0.2 (0.2) E.U./dL Ur Leukocyte Esterase Negative (NEGATIVE) Urine RBC 0-1/hpf (0-5/HPF) Urine WBC 0-1/hpf (0-5/HPF) Ur Transition Epith Cell 0-1/hpf (0-5/HPF) Urine Bacteria None seen (None) Ur Culture Indicated? Cult not indicated SARS-CoV-2 (PCR) (Negative) ECG Data Attestation: I personally reviewed and interpreted this ECG as follows: Interpretation: Sinus rhythm at a rate of 98 Normal intervals, normal axis No acute ischemic changes MDM Narrative Medical decision making narrative: 75-year-old gentleman with a right lower lobe bacterial pneumonia and exacerbation of his chronic bronchitis. Not hypotensive but slightly hypoxic in response to nasal cannula oxygen. His COVID test is negative. Chest x-ray is consistent with clinical exam with a right lower lobe pneumonia. Believe there is little congestive heart failure to complicate this. With significant alternate explanations for his symptoms, pulmonary embolism is less likely. There is no evidence of acute coronary syndrome. He is responding nicely to oxygen, antibiotics, fluids, nebulizer, steroids and pain medication for his chronic pain it is significantly exacerbated by myalgias as well as his cough. No impending respiratory distress and no signs of significant hypotension. Will be admitted to the hospitalist service for care of his right lower lobe pneumonia with developing sepsis Discharge Plan Departure Patient Disposition: Admitted As Inpatient Clinical Impression: Pneumonia Qualifiers: Pneumonia type: due to unspecified organism Laterality: right Lung location: lower lobe of lung Qualified Code(s): J18.9 - Pneumonia, unspecified organism Sepsis Qualifiers: Sepsis type: sepsis due to unspecified organism Sepsis acute organ dysfunction status: without acute organ dysfunction Qualified Code(s): A41.9 - Sepsis, unspecified organism
[2020-11-07 18:44] LABS: Bacteria Urine None Seen
[2020-11-07 18:45] LABS: NT-proBNP (BNP-Adult 18+) 829 pg/mL (<450); Troponin I 0.014 ng/mL (0.01-0.034)
[2020-11-07 18:45] LABS: Appearance Urine UA CLEAR; Bilirubin Urine UA NEGATIVE (NEGATIVE); Color Urine UA YELLOW; Glucose Urine UA NEGATIVE (Negative); Ketones Urine UA 1+ (NEGATIVE); Leukocyte Esterase Urine UA NEGATIVE (NEGATIVE); Nitrite Urine UA NEGATIVE (Negative); Occult Blood Urine UA NEGATIVE (Negative); Protein Urine UA NEGATIVE (Negative); Specific Gravity Urine UA <=1.005 (1.000-1.035); Urobilinogen Urine UA 0.2 E.U./dL (0.2)
[2020-11-07] MEDS: SODIUM CHLORIDE 0.9% 1,000 ML 200 ML IV ×2 (18:46→22:50)
[2020-11-07] MEDS: VANCOMYCIN 1,000 MG/200 ML PIGGYBACK 200 MG IV (18:46)
[2020-11-07] MEDS: HYDROMORPHONE 1 MG INJ IV (18:47)
[2020-11-07] MEDS: CEFEPIME 2 GM in SODIUM CHLORIDE 0.9% 100 ML 200 ML IV (18:51)
[2020-11-07 18:59] LABS: Procalcitonin 6.75 ng/mL (<0.5)
[2020-11-07 19:01] LABS: Culture Indicated Urine Cult Not Indicated; RBC Urine 0-1/HPF (0-5/HPF); Transitional Epi Cells Urine 0-1/HPF (0-5/HPF); WBC Urine 0-1/HPF (0-5/HPF)
[2020-11-07] MEDS: POTASSIUM CHLORIDE 20 MEQ in SODIUM CHLORIDE 0.9% 250 ML 130 ML IV (19:29)
[2020-11-07] MEDS: POTASSIUM CHLORIDE 20 MEQ/15 ML UDC 40 MEQ PO (19:29)
[2020-11-07] MEDS: methylPREDNISolone 125 MG/2 ML VIAL IV (19:34)
[2020-11-07] MEDS: OXYCODONE IR 5 MG TABLET 10 MG PO (19:40)
[2020-11-07] MEDS: ALBUTEROL/IPRATROPIUM 3 ML AMPUL INH (19:42)
[2020-11-07 20:11] LABS: Reflexed Lactate in 2 Hours Y
[2020-11-07 21:52] LABS: Lactate 2HR (Lactic Acid Rflx) 2.3 mmol/L (0.7-2.1)
[2020-11-07 22:05] LABS: C-Reactive Protein Quant 7.5 mg/dL (<1.0)
[2020-11-07] MEDS: PREGABALIN 75 MG CAPSULE PO (22:58)
[2020-11-07] MEDS: PANTOPRAZOLE 40 MG TABLET PO (22:58)
[2020-11-07] MEDS: VANCOMYCIN 1,000 MG/200 ML PIGGYBACK 167 MG IV (22:58)
[2020-11-07] MEDS: DOCUSATE 100 MG CAPSULE PO (22:58)
[2020-11-08] VITALS (14 sets, daily range): BP systolic 113–133; BP diastolic 57–73; PULSE 80–110; RESP 16–24; TEMP 36.3–37.7; O2SAT 91–98
[2020-11-08] MEDS: OXYCODONE IR 10 MG TABLET PO ×6 (00:59→20:16)
--- NOTE | 2020-11-08 02:02 | P.HP_ITS ---
History of Present Illness History of Present Illness Date Patient Seen: 11/07/20 Time Patient Seen: 20:49 Chief complaint: lethargic/fever Narrative: 75-year-old male Barrett Tam with a history of coronary artery disease, hypertension, hepatitis-C, severe chronic back pain, PTSD/depression, rheumatoid arthritis, peripheral neuropathy, prostate and skin cancer, and opioid dependent presents with 3 days of increasing cough, wheeze, noted sputum production beginning this morning, general malaise, increasing arthralgias, mild decrease in his overall mental status and alertness and this morning had some vomiting. In looking through the patient's chart I found that he had a ER visit for atypical pneumonia 07/09/2020, and a telemedicine visit with his primary care Dr. Snell on 10/04/2020 for acute bronchitis. He denies any diarrhea. He does not complain of specific chest pain but does note that his chest tightness that radiates into his back from coughing and wheezing. He does complain of feeling short of breath. He has noted no increase in lower extremity edema and is not specifically noticing lower abdominal pain. He states that his pain at this time is a 5/10, and a shortness of breath is improved since coming to the emergency room, he notes he uses no oxygen at home and that he has had a fever x3 days body aches chills and decreased appetite. Patient notes when he was transferred to the floor for admit he developed a headache with light sensitivity, he notes a history of migraines but no longer takes medication for management. Patient reports on admission that he has increased swelling of his hands and feet due to taking prednisone 5 mg once daily for a recent rheumatoid arthritis flare of which is now resolving. Patient notes that he lives with his walks independently at home occasionally uses a cane but is able to compl ete his ADLs independently and participate in the care of is home. Patient notes no neurological changes or exacerbation of his normal baseline of chronic back pain other than what is noted above. Patient's main complaint is pain at this time due to his chronic back condition, patient was due to see his neurosurgeon again regarding further discussion for future interventions. Upon admit patient's WBC 18.1 with a left shift, lactate 2.3, procalcitonin 6.75, proBNP 829, HGB 120, HCT 35.4, RBC 4.40, sodium 136, potassium 3.0, glucose 130, troponin was negative VBG site: PH 7.49, bicarb 29, base 6.0, FiO2 32. CXR:Ground-glass opacity in the right mid lung and right lung base, nonspecific but potentially representing edema or infection. Increased interstitial markings in both lungs raise additional concern for pulmonary edema. Correlate with BNP and white blood cell count. Vital signs: Temperature 100.6?, 124/58, HR 97, RR 20, O2 sat 95% on 3 L nasal cannula. Patient admitted for right lower lobe pneumonia rule out sepsis Patient History Medical History Acute exacerbation of chronic bronchitis Arthritis (Unknown) Chronic ankle pain, bilateral Chronic pain syndrome (Unknown) Depression (Unknown) Foraminal stenosis of lumbar region Hepatitis C (Unknown) Hypertension (Unknown) Impotence (Unknown) Kidney stones (Unknown) Migraines (Unknown) Peripheral neuropathy Pneumonia (~2017) Prostate cancer (Unknown) PTSD (post-traumatic stress disorder) (Unknown) Restless leg syndrome (Unknown) Rheumatoid arthritis Skin cancer (Unknown) Surgical History History of back surgery History of carpal tunnel repair History of lumbar fusion History of tonsillectomy Hx of foot surgery Hx of joint replacement Hx of laminectomy (10/2012) Status post cholecystectomy Status post knee surgery Family & Social History Family History Father Heart disease Mother No problems noted. Social History: household members spouse Safety & Behavioral: Feels Safe in Current Yes Environment Been Physically Hurt or No Threatened By a Person Suicidal Ideation Description None Suicide Plan Description No Plan Tobacco & Substance use: Smoking Status Former smoker alcohol intake former Substance Use Type does not use,former substance user Meds Home Medications and Allergies Home Medications Medication Instructions Recorded Confirmed Type adjuvant AS01B (PF)vial 1 of 2 0.5 ml IM ONCE #0.5 ml 09/29/18 10/04/20 Rx aspirin 81 mg tablet,delayed 81 mg PO DAILY 07/02/19 10/04/20 History release albuterol sulfate 90 mcg/actuation 1 inh INHALATION Q4-6H PRN #18 gram 11/20/19 10/04/20 Rx aerosol inhaler fluticasone propionate 50 1 spray INTRANASAL BID #1 bot 03/09/20 10/04/20 Rx mcg/actuation nasal spray,suspension losartan 100 mg tablet 100 mg PO DAILY #90 tab 05/06/20 10/04/20 Rx fluoxetine 10 mg capsule 10 mg PO DAILY #90 cap 07/04/20 10/04/20 Rx fluoxetine 20 mg capsule 20 mg PO QDAY #90 cap 07/04/20 10/04/20 Rx ondansetron 4 mg PO Q8H PRN #10 tab 07/09/20 10/04/20 Rx adalimumab SUBCUT 07/11/20 10/04/20 History amlodipine 10 mg tablet 10 mg PO QDAY IN PM #90 tab 08/05/20 10/04/20 Rx hydrochlorothiazide 12.5 mg capsule 12.5 mg PO DAILY #90 cap 08/05/20 10/04/20 Rx omeprazole 40 mg capsule,delayed 40 mg PO Q DAY #90 cap 08/05/20 10/04/20 Rx release methocarbamol 500 mg tablet 500 mg PO TID PRN #90 tab 09/20/20 10/04/20 Rx pregabalin 75 mg capsule 75 mg PO Q8H #270 cap 09/20/20 10/04/20 Rx albuterol sulfate 2.5 mg CONTINUOUS NEBULIZATION 10/04/20 10/04/20 Rx Q6HP PRN #360 ml metoprolol succinate 100 mg See Rx Instructions .ROUTE 10/12/20 Rx tablet,extended release 24 hr .COMPLEX #90 tablet oxycodone 10 mg tablet 10 mg PO Q6-8H PRN #120 tab 10/31/20 Rx Disabled Parking Permit #1 ea 11/01/20 11/01/20 Rx Allergies Allergy/AdvReac Type Severity Reaction Status Date / Time cyclobenzaprine Allergy Verified 07/11/20 13:35 [From Flexeril] acetaminophen [ACETAMINOPHEN] AdvReac Unknown Can't take Verified 07/11/20 13:35 r/t Hep C Review of Systems Review of Systems ROS: Yes All systems reviewed with the patient and are negative except as otherwise documented Constitutional Constitutional: Reports body ache(s), Reports chills, Reports excessive sweating, Reports fatigue, Reports fever(s), Reports headache(s), Reports poor appetite and Reports weakness Eyes Eyes: Reports system reviewed and no additional complaints, except as documented ENT Ears, Nose, Mouth, and Throat: Yes system reviewed and no additional complaints, except as documented and Yes headache(s) Cardiovascular Cardiovascular: Reports pedal edema, Reports dyspnea and Reports dyspnea on exertion Respiratory Respiratory: Reports system reviewed and no additional complaints, except as doc umented, Reports cough, Reports pain with cough, Reports dyspnea and Reports dyspnea on exertion Gastrointestinal Gastrointestinal: Reports system reviewed and no additional complaints, except as documented Genitourinary Genitourinary: Reports system reviewed and no additional complaints, except as documented Musculoskeletal Musculoskeletal: Reports back pain, Reports myalgias, Reports arthralgias and Reports stiffness Integumentary/Breasts Skin/Breast: Reports system reviewed and no additional complaints, except as documented Neurologic Neurologic: Reports headache(s) and Reports weakness Psychiatric Psychiatric: Reports system reviewed and no additional complaints, except as documented Endocrine Endocrine: Reports system reviewed and no additional complaints, except as documented, Reports excessive sweating and Reports fatigue Hematologic/Lymphatic Hematologic/Lymphatic: Reports system reviewed and no additional complaints, except as documented Allergic/Immunologic Allergic/Immunologic: Reports system reviewed and no additional complaints, except as documented Exam Vital Signs (past 8 hours): - 11/07/20 18:14 11/07/20 18:35 11/07/20 18:45 Temperature 101.9 F H 102.4 F H 102.4 F H Pulse Rate 93 H 93 H Respiratory Rate 24 24 Blood Pressure 152/70 H Pulse Oximetry 97 97 11/07/20 19:00 11/07/20 19:15 11/07/20 19:30 Temperature 102.2 F H 101.8 F H 101.3 F H Pulse Rate 93 H 97 H 92 H Respiratory Rate 22 21 20 Blood Pressure 137/63 133/62 134/74 Pulse Oximetry 97 97 97 11/07/20 19:44 11/07/20 19:45 11/07/20 20:00 Temperature 101.1 F H 101.1 F H 100.9 F H Pulse Rate 91 H 89 95 H Respiratory Rate 20 17 23 Blood Pressure 136/69 126/61 Pulse Oximetry 95 95 93 11/07/20 20:15 11/07/20 20:40 11/07/20 23:35 Temperature 100.6 F H 97.0 F L 97.3 F L Pulse Rate 97 H 93 H 81 Respiratory Rate 20 19 16 Blood Pressure 124/58 L 126/66 123/59 L Pulse Oximetry 95 93 97 Oxygen Delivery Method Nasal Cannula Oxygen Flow Rate 3 Narrative Exam Narrative: General: Patient is a well-developed, well-nourished male who was sleeping comfortably when I entered the room for exam, is mildly ill- appearing, in no distress at this time. Patient is able to provide a coherent an accurate history and speak in full sentences without any distress. HEENT: Normocephalic, atraumatic, extraocular muscles intact, oral pharynx is clear and mucous membranes are moist. Neck is supple and symmetric, trachea is midline, no adenopathy, no thyroid enlargement, nontender, no masses palpated. Negative for JVD Chest: Normal AP diameter and contour without kyphoscoliosis, no nasal flaring, retractions, or tachypneic labored Lungs: Auscultation of all lung brown with rhonchi in the right lower lobe and scattered wheeze in all lung brown, decreased but equal. Full and symmetrical air movement. Cardio: S1 & S2 with regular rate and rhythm without murmur, rubs, or gallops, no carotid bruit, no cardiac pulsations present. Abdomen: Patient had severe upper right quadrant pain with palpation without guarding or rebound, negative for organomegaly, or masses. Bowel sounds are present in all 4 quadrants, no CVA tenderness. Musculoskeletal: Muscle strength and tone are equal within normal limits, no deformity, crepitus, effusions, cyanosis, clubbing. Mild edema present to bilateral hands and feet nonpitting. Full range of motion intact radial and pedal pulses are normal. Skin: Warm dry and intact without rashes, ulcerations or petechiae. Neuro: Alert and orientated x3, strength is +5/5 in all extremities, sensation to touch intact, no gross deficits noted of cranial nerves. Psych: Patient has a well-kept appearance, appropriate affect, mental status attitude thought context and judgment are appropriate for age. Objective Labs Result Diagrams: 11/07/20 17:50 11/07/20 17:50 Labs: Laboratory Results - last 24 hr 11/07/20 11/07/20 11/07/20 17:50 17:50 17:50 WBC 18.1 H RBC 4.40 L Hgb 12.0 L Hct 35.4 L MCV 80.6 MCH 27.2 MCHC 33.8 RDW 14.8 Plt Count 191 Neut % (Auto) 86.3 H Lymph % (Auto) 3.7 L [place] % (Auto) 9.8 Eos % (Auto) 0.0 L Baso % (Auto) 0.2 Neut # (Auto) 96908 H Lymph # (Auto) 700 L [place] # (Auto) 1800 H Eos # (Auto) 0 Baso # (Auto) 0 PT 15.0 H INR 1.3 APTT 30 ABG pH ABG pCO2 ABG pO2 ABG HCO3 ABG Total CO2 ABG O2 Saturation ABG Base Excess FiO2 Sodium 136 L Potassium 3.0 L Chloride 98 Carbon Dioxide 31 BUN 15 Creatinine 0.68 Estimated GFR > 60.0 BUN/Creatinine Ratio 22.1 H Glucose 130 H Lactate Calcium 8.3 L Total Bilirubin 0.8 AST 24 ALT 17 Alkaline Phosphatase 60 Total Creatine Kinase 96 CK-MB (CK-2) TNP CK-MB (CK-2) Rel Index TNP Troponin I 0.014 C-Reactive Protein NT-Pro-B Natriuret Pep 829 H Total Protein 6.5 Albumin 3.9 Globulin 2.6 Albumin/Globulin Ratio 1.5 Procalcitonin Urine Color Urine Appearance Urine pH Ur Specific [place] Urine Protein Urine Glucose (UA) Urine Ketones Urine Occult Blood Urine Nitrate Urine Bilirubin Urine Urobilinogen Ur Leukocyte Esterase Urine RBC Urine WBC Ur Transition Epith Cell Urine Bacteria Ur Culture Indicated? SARS-CoV-2 (PCR) 11/07/20 11/07/20 11/07/20 17:50 17:50 17:50 WBC RBC Hgb Hct MCV MCH MCHC RDW Plt Count Neut % (Auto) Lymph % (Auto) [place] % (Auto) Eos % (Auto) Baso % (Auto) Neut # (Auto) Lymph # (Auto) [place] # (Auto) Eos # (Auto) Baso # (Auto) PT INR APTT ABG pH ABG pCO2 ABG pO2 ABG HCO3 ABG Total CO2 ABG O2 Saturation ABG Base Excess FiO2 Sodium Potassium Chloride Carbon Dioxide BUN Creatinine Estimated GFR BUN/Creatinine Ratio Glucose Lactate 2.3 H Calcium Total Bilirubin AST ALT Alkaline Phosphatase Total Creatine Kinase CK-MB (CK-2) CK-MB (CK-2) Rel Index Troponin I C-Reactive Protein NT-Pro-B Natriuret Pep Total Protein Albumin Globulin Albumin/Globulin Ratio Procalcitonin 6.75 H Urine Color Urine Appearance Urine pH Ur Specific [place] Urine Protein Urine Glucose (UA) Urine Ketones Urine Occult Blood Urine Nitrate Urine Bilirubin Urine Urobilinogen Ur Leukocyte Esterase Urine RBC Urine WBC Ur Transition Epith Cell Urine Bacteria Ur Culture Indicated? SARS-CoV-2 (PCR) Negative 11/07/20 11/07/20 11/07/20 17:50 18:00 18:05 WBC RBC Hgb Hct MCV MCH MCHC RDW Plt Count Neut % (Auto) Lymph % (Auto) [place] % (Auto) Eos % (Auto) Baso % (Auto) Neut # (Auto) Lymph # (Auto) [place] # (Auto) Eos # (Auto) Baso # (Auto) PT INR APTT ABG pH 7.49 H ABG pCO2 37.6 ABG pO2 84 ABG HCO3 29 H ABG Total CO2 30 ABG O2 Saturation 97 ABG Base Excess 6.0 H FiO2 32 Sodium Potassium Chloride Carbon Dioxide BUN Creatinine Estimated GFR BUN/Creatinine Ratio Glucose Lactate Calcium Total Bilirubin AST ALT Alkaline Phosphatase Total Creatine Kinase CK-MB (CK-2) CK-MB (CK-2) Rel Index Troponin I C-Reactive Protein 7.5 H NT-Pro-B Natriuret Pep Total Protein Albumin Globulin Albumin/Globulin Ratio Procalcitonin Urine Color Yellow Urine Appearance Clear Urine pH 7.0 Ur Specific [place] <=1.005 Urine Protein Negative Urine Glucose (UA) Negative Urine Ketones 1+ H Urine Occult Blood Negative Urine Nitrate Negative Urine Bilirubin Negative Urine Urobilinogen 0.2 Ur Leukocyte Esterase Negative Urine RBC 0-1/hpf Urine WBC 0-1/hpf Ur Transition Epith Cell 0-1/hpf Urine Bacteria None seen Ur Culture Indicated? Cult not indicated SARS-CoV-2 (PCR) 11/07/20 21:31 WBC RBC Hgb Hct MCV MCH MCHC RDW Plt Count Neut % (Auto) Lymph % (Auto) [place] % (Auto) Eos % (Auto) Baso % (Auto) Neut # (Auto) Lymph # (Auto) [place] # (Auto) Eos # (Auto) Baso # (Auto) PT INR APTT ABG pH ABG pCO2 ABG pO2 ABG HCO3 ABG Total CO2 ABG O2 Saturation ABG Base Excess FiO2 Sodium Potassium Chloride Carbon Dioxide BUN Creatinine Estimated GFR BUN/Creatinine Ratio Glucose Lactate 2.3 H Calcium Total Bilirubin AST ALT Alkaline Phosphatase Total Creatine Kinase CK-MB (CK-2) CK-MB (CK-2) Rel Index Troponin I C-Reactive Protein NT-Pro-B Natriuret Pep Total Protein Albumin Globulin Albumin/Globulin Ratio Procalcitonin Urine Color Urine Appearance Urine pH Ur Specific [place] Urine Protein Urine Glucose (UA) Urine Ketones Urine Occult Blood Urine Nitrate Urine Bilirubin Urine Urobilinogen Ur Leukocyte Esterase Urine RBC Urine WBC Ur Transition Epith Cell Urine Bacteria Ur Culture Indicated? SARS-CoV-2 (PCR) Assessment & Plan Assessment & Plan narrative: This patient requires acute care inpatient hospital management for right lower lobe pneumonia rule out sepsis. After failing outpatient management of acute bronchitis. The patient is at much higher risk for medical and surgical complications because of his history of hypertension, hepatitis-C, previous alcohol and tobacco abuse in remission, and steroid management of rheumatoid arthritis. These factors increase the difficulty and complexity of medical and surgical interventions and increases the chances of poor outcomes such as morbidity and mortality secondary to steroid induced immunocompromised. The patient's morbid obesity and history of tobacco abuse will impact his oxygenation, which will likely contribute to impaired recovery. 1. Acute right lower lobe pneumonia, community acquired, rule out sepsis Possible secondary a congestive heart failure-proBNP 829, will repeat Upon admit patient's WBC 18.1 with a left shift, lactate 2.3, procalcitonin 6.75, proBNP 829, HGB 120, HCT 35.4, RBC 4.40, sodium 136, potassium 3.0, glucose 130, troponin was negative VBG site: PH 7.49, bicarb 29, base 6.0, FiO2 32. CXR:Ground-glass opacity in the right mid lung and right lung base, nonspecific but potentially representing edema or infection. Increased interstitial markings in both lungs raise additional concern for pulmonary edema. Correlate with BNP and white blood cell count. Vital signs: Temperature 100.6?, 124/58, HR 97, RR 20, O2 sat 95% on 3 L nasal cannula.. initial SOFA Score- 2, curb 65 initial score-1 low risk - 06/2020 PFT's:study demonstrates mild obstructive lung disease based on reduction FEV1 and FEV1/FVC ratio. There is evidence of limited benefit following bronchodilator as above There is minimal reduction in lung volumes suggesting minimal restrictive lung disease, There is also very minimal reduction in diffusing capacity suggesting the possibility of an element of disease at the capillary alveolar level as well -patient to be monitored on tele medicine, vital signs q.4 hours,O2 sat 95% on 3 L nasal cannula(maintain O2 sat greater than 92%) intake and output monitored Q/HR with a goal of urinary output greater than or equal to 50 cc/hr, Barros catheter and place, weight measure daily, diet: Heart healthy -IV fluid: Initial Normal saline 200cc/hr sepsis protocol was completed fluid rehydration was ceased at midnight-due to concerns of fluid overload in the presence of pneumonia and no sepsis present, patient able to taking oral fluids. -if patient develops distress will implement oral prednisone daily and DuoNebs as needed q.4 hours as needed with respiratory consult -medications and IV fluids provided in the emergency room: Patient fluid resuscitation per sepsis bundle started in ER, started on vancomycin and Cefepime 2grams provided. respiratory panel negative in ER, cultures pending. -labs ordered: CMP CBC, Mag, A1c, amylase, lipase, thrombin time, troponin, proBNP, CRP, cortisol lactate Q 6 until resolving, blood cultures and sputum cultures pending. -due to lack demonstration of sepsis vancomycin and cefepime stopped will begin ceftriaxone 1 g q.day and azithromycin 500 mg q.day tomorrow -consults ordered physical therapy, occupational therapy. -prevention vaccine- Flu recommended 2. Essential Hypertension, chronic, well controlled, not present on admission -continue patient's home amlodipine, losartan, HCTZ, metoprolol 3. Chronic pain syndrome, secondary to foraminal stenosis of lumbar region, lumbar radiculopathy, peripheral neuropathy, and rheumatoid arthritis, acute on chronic, present on admission -continue patient's methocarbamol,pregabalin, oxycodone increased 10 mg Q 6 hours to q.4 hours for initial 24 hours of admission, will return to Q 6 as of 9:00 p.m. on 11/08/2019. 4. Morbid obesity, BMI 35.6, acute on chronic, present on admission -recommend dietary consult 5. PTSD/depression, chronic, not present on admission -patient verbalized no depression at this time or suicidal ideation -Continue patient's fluoxetine a total of 30 mg q.day Code status: Full Surrogate/plan of care: Spouse Paty BAUGH PCR: Negative VTE prophylaxis: Lovenox 40 mg q.day and SCD Scores GCS Alexander coma scale eye opening: Spontaneous [place] coma scale verbal response: Orientated [place] coma scale motor response: Obey commands Alexander coma scale total score: 15 SOFA PaO2/FIO2: < 300 mmHg Platelets: >= 150 Bilirubin: < 1.2 mg/dL Hypotension: MAP >= 70 mmHg Alexander Coma Scale: 15 Renal: < 1.2 mg/dL SOFA Score: 2 Wells' Criteria for PE Clinical signs and symptoms of DVT: No PE is #1 Dx or equally likely: No Heart rate > 100: No Immobilization at least 3 days or surg in previous 4 weeks: No History of PE or DVT: No Hemoptysis: No Malignancy w/Treatment within 6 months or palliative: No Wells' PE Score total: 0 Quality VTE Deep Vein Thrombosis/Pulmonary Embolism Present on Admission: No
--- NOTE | 2020-11-08 02:59 | PC.NURSE ---
Addendum entered by Marilu Larry R.N. 11/08/20 06:38: Medicated with Oxycodone earlier for chronic back pain and pain improved from 5/10 to 4/10 but now requesting Robaxin so medicated as requested. Up to BSC with 1 assist; having UE tremors which he states he gets intermittently when he is having pain. Sputum specimen obtained and sent to lab as was respiratory panel swab. SUPERVISOR DOCK informed of UOP of 45cc. Addendum entered by Marilu Larry R.N. 11/08/20 05:03: UOP at 0400 was 30cc and now at 0500 is 40cc. SHAMEKA Tim, was informed and 0400 and again now with no new orders. Original Note: Patient seen and assessed at 0022. Is alert and oriented; [place]. Breath sounds diminished with inspiratory crackles and expiratory rhonchi in right mid/lower lobes; on continuous oximetry. On oxygen at 3L/min per NC with sat of 97%; denies feeling SOB. HRR and telemetry reading was SR. Denies nausea. BT present and is passing flatus. Indwelling catheter is patent; urine output has been low (50cc at 2200, 20cc at 2300 and 50cc at 0000); Jermaine MYLES, made aware and states as long as UOP is at least 50cc/hour she does not need to be notified. Is able to turn himself in bed. Gait not assessed as not out of bed as yet this shift but previous RN reported he became quite SOB with transfer into bed when arriving from ER last evening. Complains of chronic back pain radiating down right leg and was medicated with scheduled Oxycodone. Chronic numbness reported in bilateral feet and right thigh. Patient diaphoretic and pale at start of shift and SUPERVISOR DOCK was in to see him at that time. Wearing bilateral calf SCD's. Fall risk score is moderate and bed alarm is activated. Patient currently asleep with sat of 97% so decreased oxygen to 2L/min and will monitor.
[2020-11-08 05:32] LABS: Add Manual Diff / Slide Review NO; Basophils Absolute Auto 0 /uL (0-100); Basophils Percent Auto 0.3 % (0-2); Eosinophils Absolute Auto 0 /uL (0-450); Hematocrit 31.7 % (41-53); Hemoglobin 10.4 g/dL (13.5-17.5); Lymphocytes Absolute Auto 500 /uL (1100-4500); Lymphocytes Percent Auto 3.5 % (25-40); Mean Corpuscular HGB Conc 32.9 % (30-36); Mean Corpuscular Hemoglobin 26.8 PG (26-34); Mean Corpuscular Volume 81.3 fL (80-100); Monocytes Absolute Auto 900 /uL (0-900); Neutrophils Absolute Auto 14100 /uL (1500-7000); Neutrophils Percent Auto 90.2 % (50-75); Platelet Count 177 X10^3/uL (150-400); Red Cell Distribution Width 15.2 % (11.6-14.8); White Blood Cell Count 15.6 X10^3/uL (4.5-11.0)
[2020-11-08] MEDS: ALBUTEROL 2.5 MG/3 ML NEB (ADULT) INH ×3 (05:35→18:51)
[2020-11-08 05:41] LABS: Lactate (Lactic Acid) 1.2 mmol/L (0.7-2.1)
[2020-11-08 05:43] LABS: Alanine Aminotransferase 15 IU/L (<50); Albumin 3.4 g/dL (3.5-5.0); Albumin Globulin Ratio 1.3 (1.0-2.8); Alkaline Phosphatase 46 U/L (38-126); Aspartate Aminotransferase 22 IU/L (17-59); BUN Creatinine Ratio 33.3 (6-22); Bilirubin Total 0.5 mg/dL (0.2-1.3); Blood Urea Nitrogen 20 mg/dL (9-20); Calcium 8.1 mg/dL (8.4-10.2); Carbon Dioxide 29 mmol/L (22-32); Chloride 102 mmol/L (98-107); Estimated Glomerular Filt Rate > 60.0 mL/min (>60); Globulin 2.7 g/dL (1.7-4.1); Glucose 139 mg/dL (80-110); HEMOLYSIS < 15 (0-50); Magnesium 1.9 mg/dL (1.6-2.3); Phosphorous 1.8 mg/dL (2.3-3.7); Potassium 3.4 mmol/L (3.4-5.1); Sodium 135 mmol/L (137-145); Total Protein 6.1 g/dL (6.3-8.2)
[2020-11-08 05:51] LABS: NT-proBNP (BNP-Adult 18+) 617 pg/mL (<450)
[2020-11-08 05:52] LABS: Hemoglobin A1C% w Est Avg Glu 5.4 % (4.0-6.0)
[2020-11-08 06:03] LABS: Procalcitonin 5.24 ng/mL (<0.5)
[2020-11-08 06:12] LABS: Cortisol AM (Before 10AM) 10.1 ug/dL (4.46-22.7)
[2020-11-08] MEDS: methocarbamoL 500 MG TABLET PO (06:24)
[2020-11-08] MEDS: PREGABALIN 75 MG CAPSULE PO ×3 (06:28→20:16)
[2020-11-08 07:09] LABS: C-Reactive Protein Quant 16.3 mg/dL (<1.0)
[2020-11-08 07:25] LABS: Adenovirus Not Detected (Not Detect); Bordetella pertussis Not Detected (Not Detect); Chlamydophila pneumoniae Not Detected (Not Detect); Coronavirus 229E Not Detected (Not Detect); Coronavirus HKU1 Not Detected (Not Detect); Coronavirus NL 63 Not Detected (Not Detect); Coronavirus OC43 Not Detected (Not Detect); Human Metapneumovirus Not Detected (Not Detect); Human Rhinovirus/Enterovirus Not Detected (Not Detect); Influenza A Not Detected (Not Detect); Influenza B Not Detected (Not Detect); Mycoplasma pneumoniae Not Detected (Not Detect); Parainfluenza Virus 1 Not Detected (Not Detect); Parainfluenza Virus 2 Not Detected (Not Detect); Parainfluenza Virus 3 Not Detected (Not Detect); Parainfluenza Virus 4 Not Detected (Not Detect); Respiratory Syncytial Virus Not Detected (Not Detect); SARS- CoV-2 Not Detected (Not Detecte)
[2020-11-08] MEDS: ENOXAPARIN 40 MG/0.4 ML SYRINGE SUBCUT (08:55)
[2020-11-08] MEDS: FLUoxetine 10 MG CAPSULE PO (08:55)
[2020-11-08] MEDS: CEFTRIAXONE 1 GM/50 ML FROZ.PIGGY IV (08:55)
[2020-11-08] MEDS: PANTOPRAZOLE 40 MG TABLET PO (08:55)
[2020-11-08] MEDS: LOSARTAN 50 MG TABLET 100 MG PO (08:55)
[2020-11-08] MEDS: FLUoxetine 20 MG CAPSULE PO (08:55)
[2020-11-08] MEDS: hydroCHLOROthiazide 12.5 MG CAPSULE PO (08:55)
[2020-11-08] MEDS: AZITHROMYCIN 250 MG TABLET 500 MG PO (08:55)
[2020-11-08] MEDS: ASPIRIN EC 81 MG TABLET PO (08:56)
[2020-11-08] MEDS: METOPROLOL ER 50 MG TABLET 100 MG PO (08:56)
[2020-11-08] MEDS: FOLIC ACID 1 MG TABLET PO (08:56)
--- NOTE | 2020-11-08 10:35 | PT.IIE ---
Surgical History (Last Reviewed 11/08/20 @ 02:28 [facility] History of back surgery History of carpal tunnel repair History of lumbar fusion History of tonsillectomy Hx of foot surgery Hx of joint replacement Hx of laminectomy (10/2012) Status post cholecystectomy Status post knee surgery Medical History (Last Reviewed 11/08/20 @ 02:28 [facility] Acute exacerbation of chronic bronchitis Arthritis (Unknown) Chronic ankle pain, bilateral Chronic pain syndrome (Unknown) Depression (Unknown) Foraminal stenosis of lumbar region Hepatitis C (Unknown) Hypertension (Unknown) Impotence (Unknown) Kidney stones (Unknown) Migraines (Unknown) Peripheral neuropathy Pneumonia (~2017) Prostate cancer (Unknown) PTSD (post-traumatic stress disorder) (Unknown) Restless leg syndrome (Unknown) Rheumatoid arthritis Skin cancer (Unknown) Physical Therapy Inpatient Evaluation/Re-Eval M1 PT/OT-IP Prior Functional Status Start: 11/08/20 09:04 Freq: NEEDED Status: Active Protocol: Document 11/08/20 10:35 AW (Rec: 11/08/20 11:05 AW [id number]) Medical Review Prior Functional Status Medical History Reviewed Yes Communication WNL. Pt is an effective verbal communicator. Mobility and Gait Pt typically cruises furniture at home and uses a SPC for limited community mobility. He has chronic back pain and peripheral neuropathy affecting sensation and strength in bilateral feet. Activities of Daily Living and IADL's Independent with all ADL's. Pt shares cooking responsibilities with his . He manages his own meds. 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 Prior Functional Level (Other details) Pt does not use O2 at home. He is opioid dependent, has RA, and history of prostate and skin cancer. Social History Household Members spouse Living Arrangements Mobile home Number of Floors (Floors) One Floor Number of Stairs To Enter/Railing? ramped entry Home Environment High Toilet,Walk in Shower, Built-In Shower Seat,Ramp Home Equipment Front Wheel Walker,Straight Cane,Crutches,Support Services Coordinator,Grab Bars In Shower Employment Status Retired Additional Social History Comment Pt's toilet has sink on the left side which he can use to assist with standing. He lives with his , Paty, who is retired and able to provide some assist. His closest child is a son who lives in [place] and occasionally assists with household projects. M2 PT-IP Current Condition Start: 11/08/20 09:04 Freq: NEEDED Status: Active Protocol: Document 11/08/20 10:35 AW (Rec: 11/08/20 11:05 AW [id number]) Physical Therapy Current Condition Current Condition Evaluation Date 11/08/20 Treatment Diagnosis RLL PNA; generalized weakness; difficulty in walking Onset Date 11/06/20 M3 PT-IP Subjective Start: 11/08/20 09:04 Freq: NEEDED Status: Active Protocol: Document 11/08/20 10:35 AW (Rec: 11/08/20 11:05 AW [id number]) Subjective Physical Therapy Visit Type Type Initial Evaluation Visit Start Time 10:06 Visit Stop Time 10:35 Total Visit Minutes 59 Physical Therapy Visit Comments Patient Comments Pt is willing to participate with PT Patient Goals Avoid SNF, regain strength, return to home with assist if needed. Therapy Pain Assessment Pain When Pain Assessed During Mobility Pain Present Pain Present Pain Reported Location Back Scale Used 4/10 at rest; inc with mobility Description Spasm Pain Behaviors Facial Grimacing,Moaning, Restlessness,Wincing Pain Management Techniques Re-positioning,Timing of Activity with Medications M4 PT-IP Mobility and Gait Start: 11/08/20 09:04 Freq: NEEDED Status: Active Protocol: Document 11/08/20 10:35 AW (Rec: 11/08/20 11:05 AW [id number]) PT-Bed Mobility Assessment Rolling Type of Rolling Roll to Right Level of Assist Standby Assistance Supine to Sit Supine to Sit Standby Assistance Sit to Supine Sit to Supine Standby Assistance Scooting Scooting to Edge of Bed Standby Assistance PT-Transfer Assessment Sit to and From Stand Sit to and from Stand Contact Guard Assistance,Use of Upper Extremities Equipment Transfer Assistive Device Gait Belt,Front Wheeled Walker Orthotic/Prosthetic Devices or Brace: No Transfers Transfer Destination Bed Transfer Technique Stand Step Pivot Transfer Ability Level of Assist Contact Guard Assistance Comments Mobility Comments Pt is in the bathroom with FURNISHINGS CONSERVATOR attending as PT arrives. PT took over as pt exited the bathroom. He ambulated with FWW CGA to the right side of the bed and sat CGA. Pt complains of limited sitting tolerance and refuses the chair. Pt completed sit <> supine via log roll SBA. BP was 126/48 HR 90 [id number]% on 1. 5L/min via NC. Once sitting again at EOB, pt stood from the bed in lowest position CGA using FWW. He ambulated a total of 100 feet with three standing rest breaks on room air with (+) SOB. SpO2 was maintained 93-95% throughout session. Pt returned to supine SBA and was positioned with call light and all needs in reach, bed alarm on for safety . Gait Assessment Gait Gait Assistance Required: Contact Guard Assist Distance (Feet) 100 Assistive Devices Assistive Device Gait Belt,Front Wheeled Walker Orthotic/Prosthetic Devices or Brace: No Gait Deviations General Gait Pattern Antalgic,Decreased Stride Length,Decreased Feet Clearance,Flexed Trunk,Step-to Gait Factors Limiting Gait Function Factors Limiting Gait Function Decreased Activity Tolerance, Decreased Sensation,Decreased Strength,Pain,Poor Balance, Poor Safety Awareness Comments Gait Comments Pt ambulated 100 feet with FWW CGA requiring 3 standing rest breaks due to sudden onset back pain. Cues needed for safe walker management as pt tends to push walker too far forward. Stair Climbing Assessment Comments Stair Climbing Comments No stairs at home. Not assessed. PT-Balance Assessment Sitting Balance and Reactions Static Sitting Balance Ability Good Dynamic Sitting Balance Ability Good Standing Balance and Reactions Static Standing Balance Ability Fair Dynamic Standing Balance Ability Fair Device Used FWW M5 PT-IP Objective Assessments Start: 11/08/20 09:04 Freq: NEEDED Status: Active Protocol: Document 11/08/20 10:35 AW (Rec: 11/08/20 11:05 AW [id number]) Orientation Orientation/Cognition Level of Alertness Alert Orientation Name,Month,Place,Situation Language Function Ability No Deficits Noted Safety Awareness Decreased Safety Awareness Gross Range of Motion Lower Extremity ROM Assessment Within Functional Limits Strength Lower Extremity Strength Assessment Bilaterally Impaired Hip 4-/5 Knee 4/5 Ankle 4-/5 Sensation Assessment Sensation Gross Sensation Right LE Impaired,Left LE Impaired Light Touch Impaired Sensation Description Numbness,Tingling Comments Sensation Comments Chronic peripheral neuropathy affecting sensation in bilateral feet Muscle Tone Muscle Tone WNL No Muscle Tone Location Right Upper Extremity Manifistation of Tone Intention Tremors Comments Muscle Tone Comments Pt states RUE tremor becomes more pronounced with increased pain. M6 PT-IP Treatment Start: 11/08/20 09:04 Freq: NEEDED Status: Active Protocol: Document 11/08/20 10:35 AW (Rec: 11/08/20 11:05 AW [id number]) Physical Therapy Treatment Education Education Provided Precautions,Safety M7 PT-IP Assessment and Plan Start: 11/08/20 09:04 Freq: NEEDED Status: Active Protocol: Document 11/08/20 10:35 AW (Rec: 11/08/20 11:05 AW [id number]) PT Summary Assessment and Plan Potential Rehabilitation Potential Good Status of Condition at Evaluation Evolving Summary Impairments Pain,Strength,Balance, Sensation,Cognition,Bed Mobility,Transfers,Gait, Activity Tolerance Assessment Summary Barrett is a 75yo man seen for PT evaluation with admitting diagnosis of RLL pneumonia. He is modified independent for short distance community mobility with SPC at baseline. In the home, he does not use an assistive device but admits to staying close to furniture or ag for intermittent support. On evaluation, pt tolerated 100 feet ambulation with FWW CGA and maintained SpO2 93-95% on room air. Pt reports current functional reserve is ~30% of normal. Pt will benefit from continued acute PT to address strength and activity tolerance deficits. He will likely need HH at discharge to continue working on mobility goals. Goals Bed Mobility Goal Independent Transfer Goal Independent,Front Wheeled Walker Gait Goal Independent,Front Wheel Walker Gait Distance 150 Other Goals - improve gait to 100 feet with LRAD or no AD Days to Meet Goals 5 Frequency of Treatment Frequency Of Treatment Once a Day Treatment Plan Physical Therapy Treatment Plan Bed Mobility Training,Transfer Training,Gait Training, Therapeutic Exercise,Balance Retraining,Discharge Planning, Hot or Cold Pack,Neuromuscular Re-ed Other Recommendations and Next Treatment gait with FWW or SPC; monitor Focus VS Recommendations To Nursing Amount of Assist Needed 1 Person Assist Discharge Recommendations PT Discharge Recommendations Home with Assistance,Home Health Transportation Needs at Discharge Private Vehicle
--- NOTE | 2020-11-08 11:24 | CM.DANOTE ---
DCP: Case received, EMR reviewed and met with patient. Introduced self and role. Was able to meet with patient and obtain information from patient regarding is baseline activity status prior to hospitalization, as well as current living situation. Agnieszka, physical therapist, was in the room getting ready to work with patient as well. Was also able to review her notes to complete DCP assessment. Patient is a 75 year old male who admitted yesterday evening to the care of the hospitalist team. PCP: Dr. Snell. Payer: confirmed: Medicare/[employer]. Patient came to the hospital via ambulance secondary to having increased shortness of breath, wheezing, and malaise. He was negative for COVID. He is noted to have right lower lobe bacterial pneumonia. Patient had recently been seen by his primary care provider for acute bronchitis. He has history of HTN, Hepatitis C, opiod dependent, as well as PTSD and depression. Patient is not on home oxygen. Met with patient in his room. He was sitting on the edge of the bed getting ready to work with P.T. He is alert and oriented. He resides here in [place] with his spouse, Lanette. Patient uses a cane occasionally, and uses furniture for stability in the home. He is still driving. P: DCP to continue to follow. P.T. mentioned home health, briefly mentioned this to patient, as long as he is home bound. Patient has supportive at home, should be able to go home when medically stable. Jessica Hernandez RN/Licensing Manager
--- NOTE | 2020-11-08 11:50 | OT.IP.TRT ---
Occupational Therapy Treatment Note M3 OT- IP Subjective and Pain Start: 11/08/20 11:55 Freq: Status: Active Protocol: Document 11/08/20 11:55 [facility] (Rec: 11/08/20 12:06 [facility] [id number]) OT- Subjective Occupational Therapy Visit Type Type Treatment Note Visit Start Time 11:35 Visit Stop Time 11:50 Total Visit Minutes 15 Occupational Therapy Visit Comments Patient Comments Pt note wanting to do OT eval but agreeable to talk to OT regarding energy conservation needs. Pt is insistent that he will be fine with all ADl and IADl needs once his PNA clears. Patient/Caregiver Goals To go home. M4 OT- IP ADL's Start: 11/08/20 11:55 Freq: Status: Active Protocol: Document 11/08/20 11:55 [facility] (Rec: 11/08/20 12:06 [facility] [id number]) OT ADL-Dressing Comments OT Dressing Comments Pt has a casey saw operator at home to use to assist. Able to over energy conservation information for all Adl and IADl needs and pt able to state good understanding for all needs. M9 OT- IP Assessment and Plan Start: 11/08/20 11:55 Freq: Status: Active Protocol: Document 11/08/20 11:55 [facility] (Rec: 11/08/20 12:06 [facility] [id number]) OT Summary Assessment and Plan Summary Assessment Summary Pt not wanting to do OT eval as pt states just wants to focus on the physical therapy but willing to go over energy conservation needs. Pt has a supportive [er pt that can assist him at home. Discharge from OT services. Discharge Recommendations OT Discharge Recommendations Home with Assistance Transportation Needs at Discharge Private Vehicle
--- NOTE | 2020-11-08 14:25 | P.PN_ITS ---
Subjective Subjective Date Patient Seen: 11/08/20 Time Patient Seen: 14:26 Interval history: 75-year-old male Barrett Tam with a history of coronary artery disease, hypertension, hepatitis-C, severe chronic back pain, PTSD/depression, R middle lobe syndrome, mild COPD, rheumatoid arthritis, peripheral neuropathy, prostate and skin cancer, and opioid dependent who was admitted for community- acquired pneumonia. He continues to have cough and chest pain with cough today, but overall he has more energy and is feeling improved today. His last fever was last night and he was able to be taken off of supplemental oxygen this afternoon. His white blood cell count has improved to 15.6 today and procalcitonin did decline slightly. Exam Vital Signs (past 8 hours): - 11/08/20 08:00 11/08/20 09:11 11/08/20 09:12 Temperature 97.4 F L Pulse Rate 110 H 94 H Respiratory Rate 24 Blood Pressure 124/59 L Pulse Oximetry 95 94 11/08/20 10:41 11/08/20 11:35 11/08/20 13:50 Temperature 99.1 F Pulse Rate 90 92 H Respiratory Rate 20 18 Blood Pressure 113/57 L Pulse Oximetry 94 92 92 Oxygen Delivery Method Room Air Oxygen Flow Rate 0 Narrative Exam Narrative: General: Patient is a well-developed, well-nourished male in no distress at this time. HEENT: Normocephalic, atraumatic, extraocular muscles intact, oral pharynx is clear and mucous membranes are moist. Neck is supple and symmetric, trachea is midline, no adenopathy, no thyroid enlargement, nontender, no masses palpated. Negative for JVD Chest: Normal AP diameter and contour without kyphoscoliosis Lungs: Auscultation of all lung brown with rhonchi in the right lower lobe. No wheezing. Full and symmetrical air movement. Cardio: S1 & S2 with regular rate and rhythm without murmur, rubs, or gallops, no carotid bruit, no cardiac pulsations present. Abdomen: Soft, non-tender, non-distended. Musculoskeletal: Muscle strength and tone are equal within normal limits, no deformity, crepitus, effusions, cyanosis, clubbing. Mild edema present to bilateral hands and feet nonpitting. Full range of motion intact radial and pedal pulses are normal. Skin: Warm dry and intact without rashes, ulcerations or petechiae. Neuro: Alert and orientated x3, strength is +5/5 in all extremities, sensation to touch intact, no gross deficits noted of cranial nerves. Psych: Patient has a well-kept appearance, appropriate affect, mental status attitude thought context and judgment are appropriate for age. Objective Labs Result Diagrams: 11/08/20 05:12 11/08/20 05:12 Labs: Laboratory Results - last 24 hr 11/07/20 11/07/20 11/07/20 17:50 17:50 17:50 WBC 18.1 H RBC 4.40 L Hgb 12.0 L Hct 35.4 L MCV 80.6 MCH 27.2 MCHC 33.8 RDW 14.8 Plt Count 191 Neut % (Auto) 86.3 H Lymph % (Auto) 3.7 L [place] % (Auto) 9.8 Eos % (Auto) 0.0 L Baso % (Auto) 0.2 Neut # (Auto) 40580 H Lymph # (Auto) 700 L [place] # (Auto) 1800 H Eos # (Auto) 0 Baso # (Auto) 0 PT 15.0 H INR 1.3 APTT 30 ABG pH ABG pCO2 ABG pO2 ABG HCO3 ABG Total CO2 ABG O2 Saturation ABG Base Excess FiO2 Sodium 136 L Potassium 3.0 L Chloride 98 Carbon Dioxide 31 BUN 15 Creatinine 0.68 Estimated GFR > 60.0 BUN/Creatinine Ratio 22.1 H Glucose 130 H Hemoglobin A1c Lactate Calcium 8.3 L Phosphorus Magnesium Total Bilirubin 0.8 AST 24 ALT 17 Alkaline Phosphatase 60 Total Creatine Kinase 96 CK-MB (CK-2) TNP CK-MB (CK-2) Rel Index TNP Troponin I 0.014 C-Reactive Protein C-React Prot High Sens NT-Pro-B Natriuret Pep 829 H Total Protein 6.5 Albumin 3.9 Globulin 2.6 Albumin/Globulin Ratio 1.5 Procalcitonin Cortisol AM Sample Urine Color Urine Appearance Urine pH Ur Specific [place] Urine Protein Urine Glucose (UA) Urine Ketones Urine Occult Blood Urine Nitrate Urine Bilirubin Urine Urobilinogen Ur Leukocyte Esterase Urine RBC Urine WBC Ur Transition Epith Cell Urine Bacteria Ur Culture Indicated? Chlamy pneumoniae PCR Adenovirus (PCR) B.parapertussis DNA PCR Coronavirus OC43 (PCR) Coronavirus HKU1 (PCR) Coronavirus 229E (PCR) SARS-CoV-2 (PCR) Coronavirus NL63 (PCR) Human Metapneumovir PCR Influenza Type A (PCR) Influenza Type B (PCR) M. pneumoniae (PCR) Parainfluenza 1 (PCR) Parainfluenza 2 (PCR) Parainfluenza 3 (PCR) Parainfluenza 4 (PCR) RSV (PCR) Entero/Rhino (PCR) 11/07/20 11/07/20 11/07/20 17:50 17:50 17:50 WBC RBC Hgb Hct MCV MCH MCHC RDW Plt Count Neut % (Auto) Lymph % (Auto) [place] % (Auto) Eos % (Auto) Baso % (Auto) Neut # (Auto) Lymph # (Auto) [place] # (Auto) Eos # (Auto) Baso # (Auto) PT INR APTT ABG pH ABG pCO2 ABG pO2 ABG HCO3 ABG Total CO2 ABG O2 Saturation ABG Base Excess FiO2 Sodium Potassium Chloride Carbon Dioxide BUN Creatinine Estimated GFR BUN/Creatinine Ratio Glucose Hemoglobin A1c Lactate 2.3 H Calcium Phosphorus Magnesium Total Bilirubin AST ALT Alkaline Phosphatase Total Creatine Kinase CK-MB (CK-2) CK-MB (CK-2) Rel Index Troponin I C-Reactive Protein C-React Prot High Sens NT-Pro-B Natriuret Pep Total Protein Albumin Globulin Albumin/Globulin Ratio Procalcitonin 6.75 H Cortisol AM Sample Urine Color Urine Appearance Urine pH Ur Specific [place] Urine Protein Urine Glucose (UA) Urine Ketones Urine Occult Blood Urine Nitrate Urine Bilirubin Urine Urobilinogen Ur Leukocyte Esterase Urine RBC Urine WBC Ur Transition Epith Cell Urine Bacteria Ur Culture Indicated? Chlamy pneumoniae PCR Adenovirus (PCR) B.parapertussis DNA PCR Coronavirus OC43 (PCR) Coronavirus HKU1 (PCR) Coronavirus 229E (PCR) SARS-CoV-2 (PCR) Negative Coronavirus NL63 (PCR) Human Metapneumovir PCR Influenza Type A (PCR) Influenza Type B (PCR) M. pneumoniae (PCR) Parainfluenza 1 (PCR) Parainfluenza 2 (PCR) Parainfluenza 3 (PCR) Parainfluenza 4 (PCR) RSV (PCR) Entero/Rhino (PCR) 11/07/20 11/07/20 11/07/20 17:50 18:00 18:05 WBC RBC Hgb Hct MCV MCH MCHC RDW Plt Count Neut % (Auto) Lymph % (Auto) [place] % (Auto) Eos % (Auto) Baso % (Auto) Neut # (Auto) Lymph # (Auto) [place] # (Auto) Eos # (Auto) Baso # (Auto) PT INR APTT ABG pH 7.49 H ABG pCO2 37.6 ABG pO2 84 ABG HCO3 29 H ABG Total CO2 30 ABG O2 Saturation 97 ABG Base Excess 6.0 H FiO2 32 Sodium Potassium Chloride Carbon Dioxide BUN Creatinine Estimated GFR BUN/Creatinine Ratio Glucose Hemoglobin A1c Lactate Calcium Phosphorus Magnesium Total Bilirubin AST ALT Alkaline Phosphatase Total Creatine Kinase CK-MB (CK-2) CK-MB (CK-2) Rel Index Troponin I C-Reactive Protein 7.5 H C-React Prot High Sens NT-Pro-B Natriuret Pep Total Protein Albumin Globulin Albumin/Globulin Ratio Procalcitonin Cortisol AM Sample Urine Color Yellow Urine Appearance Clear Urine pH 7.0 Ur Specific [place] <=1.005 Urine Protein Negative Urine Glucose (UA) Negative Urine Ketones 1+ H Urine Occult Blood Negative Urine Nitrate Negative Urine Bilirubin Negative Urine Urobilinogen 0.2 Ur Leukocyte Esterase Negative Urine RBC 0-1/hpf Urine WBC 0-1/hpf Ur Transition Epith Cell 0-1/hpf Urine Bacteria None seen Ur Culture Indicated? Cult not indicated Chlamy pneumoniae PCR Adenovirus (PCR) B.parapertussis DNA PCR Coronavirus OC43 (PCR) Coronavirus HKU1 (PCR) Coronavirus 229E (PCR) SARS-CoV-2 (PCR) Coronavirus NL63 (PCR) Human Metapneumovir PCR Influenza Type A (PCR) Influenza Type B (PCR) M. pneumoniae (PCR) Parainfluenza 1 (PCR) Parainfluenza 2 (PCR) Parainfluenza 3 (PCR) Parainfluenza 4 (PCR) RSV (PCR) Entero/Rhino (PCR) 11/07/20 11/08/20 11/08/20 21:31 05:12 05:12 WBC 15.6 H RBC 3.90 L Hgb 10.4 L Hct 31.7 L MCV 81.3 MCH 26.8 MCHC 32.9 RDW 15.2 H Plt Count 177 Neut % (Auto) 90.2 H Lymph % (Auto) 3.5 L [place] % (Auto) 6.0 Eos % (Auto) 0.0 L Baso % (Auto) 0.3 Neut # (Auto) 03040 H Lymph # (Auto) 500 L [place] # (Auto) 900 Eos # (Auto) 0 Baso # (Auto) 0 PT INR APTT ABG pH ABG pCO2 ABG pO2 ABG HCO3 ABG Total CO2 ABG O2 Saturation ABG Base Excess FiO2 Sodium Potassium Chloride Carbon Dioxide BUN Creatinine Estimated GFR BUN/Creatinine Ratio Glucose Hemoglobin A1c Lactate 2.3 H 1.2 Calcium Phosphorus Magnesium Total Bilirubin AST ALT Alkaline Phosphatase Total Creatine Kinase CK-MB (CK-2) CK-MB (CK-2) Rel Index Troponin I C-Reactive Protein C-React Prot High Sens NT-Pro-B Natriuret Pep Total Protein Albumin Globulin Albumin/Globulin Ratio Procalcitonin Cortisol AM Sample Urine Color Urine Appearance Urine pH Ur Specific [place] Urine Protein Urine Glucose (UA) Urine Ketones Urine Occult Blood Urine Nitrate Urine Bilirubin Urine Urobilinogen Ur Leukocyte Esterase Urine RBC Urine WBC Ur Transition Epith Cell Urine Bacteria Ur Culture Indicated? Chlamy pneumoniae PCR Adenovirus (PCR) B.parapertussis DNA PCR Coronavirus OC43 (PCR) Coronavirus HKU1 (PCR) Coronavirus 229E (PCR) SARS-CoV-2 (PCR) Coronavirus NL63 (PCR) Human Metapneumovir PCR Influenza Type A (PCR) Influenza Type B (PCR) M. pneumoniae (PCR) Parainfluenza 1 (PCR) Parainfluenza 2 (PCR) Parainfluenza 3 (PCR) Parainfluenza 4 (PCR) RSV (PCR) Entero/Rhino (PCR) 11/08/20 11/08/20 11/08/20 05:12 05:12 05:12 WBC RBC Hgb Hct MCV MCH MCHC RDW Plt Count Neut % (Auto) Lymph % (Auto) [place] % (Auto) Eos % (Auto) Baso % (Auto) Neut # (Auto) Lymph # (Auto) [place] # (Auto) Eos # (Auto) Baso # (Auto) PT INR APTT ABG pH ABG pCO2 ABG pO2 ABG HCO3 ABG Total CO2 ABG O2 Saturation ABG Base Excess FiO2 Sodium 135 L Potassium 3.4 Chloride 102 Carbon Dioxide 29 BUN 20 Creatinine 0.60 L Estimated GFR > 60.0 BUN/Creatinine Ratio 33.3 H Glucose 139 H Hemoglobin A1c Lactate Calcium 8.1 L Phosphorus 1.8 L Magnesium 1.9 Total Bilirubin 0.5 AST 22 ALT 15 Alkaline Phosphatase 46 Total Creatine Kinase CK-MB (CK-2) CK-MB (CK-2) Rel Index Troponin I C-Reactive Protein 16.3 H C-React Prot High Sens TNP NT-Pro-B Natriuret Pep 617 H Total Protein 6.1 L Albumin 3.4 L Globulin 2.7 Albumin/Globulin Ratio 1.3 Procalcitonin 5.24 H Cortisol AM Sample 10.1 Urine Color Urine Appearance Urine pH Ur Specific [place] Urine Protein Urine Glucose (UA) Urine Ketones Urine Occult Blood Urine Nitrate Urine Bilirubin Urine Urobilinogen Ur Leukocyte Esterase Urine RBC Urine WBC Ur Transition Epith Cell Urine Bacteria Ur Culture Indicated? Chlamy pneumoniae PCR Adenovirus (PCR) B.parapertussis DNA PCR Coronavirus OC43 (PCR) Coronavirus HKU1 (PCR) Coronavirus 229E (PCR) SARS-CoV-2 (PCR) Coronavirus NL63 (PCR) Human Metapneumovir PCR Influenza Type A (PCR) Influenza Type B (PCR) M. pneumoniae (PCR) Parainfluenza 1 (PCR) Parainfluenza 2 (PCR) Parainfluenza 3 (PCR) Parainfluenza 4 (PCR) RSV (PCR) Entero/Rhino (PCR) 11/08/20 11/08/20 05:12 06:22 WBC RBC Hgb Hct MCV MCH MCHC RDW Plt Count Neut % (Auto) Lymph % (Auto) [place] % (Auto) Eos % (Auto) Baso % (Auto) Neut # (Auto) Lymph # (Auto) [place] # (Auto) Eos # (Auto) Baso # (Auto) PT INR APTT ABG pH ABG pCO2 ABG pO2 ABG HCO3 ABG Total CO2 ABG O2 Saturation ABG Base Excess FiO2 Sodium Potassium Chloride Carbon Dioxide BUN Creatinine Estimated GFR BUN/Creatinine Ratio Glucose Hemoglobin A1c 5.4 Lactate Calcium Phosphorus Magnesium Total Bilirubin AST ALT Alkaline Phosphatase Total Creatine Kinase CK-MB (CK-2) CK-MB (CK-2) Rel Index Troponin I C-Reactive Protein C-React Prot High Sens NT-Pro-B Natriuret Pep Total Protein Albumin Globulin Albumin/Globulin Ratio Procalcitonin Cortisol AM Sample Urine Color Urine Appearance Urine pH Ur Specific [place] Urine Protein Urine Glucose (UA) Urine Ketones Urine Occult Blood Urine Nitrate Urine Bilirubin Urine Urobilinogen Ur Leukocyte Esterase Urine RBC Urine WBC Ur Transition Epith Cell Urine Bacteria Ur Culture Indicated? Chlamy pneumoniae PCR Not detected Adenovirus (PCR) Not detected B.parapertussis DNA PCR Not detected Coronavirus OC43 (PCR) Not detected Coronavirus HKU1 (PCR) Not detected Coronavirus 229E (PCR) Not detected SARS-CoV-2 (PCR) Not detected Coronavirus NL63 (PCR) Not detected Human Metapneumovir PCR Not detected Influenza Type A (PCR) Not detected Influenza Type B (PCR) Not detected M. pneumoniae (PCR) Not detected Parainfluenza 1 (PCR) Not detected Parainfluenza 2 (PCR) Not detected Parainfluenza 3 (PCR) Not detected Parainfluenza 4 (PCR) Not detected RSV (PCR) Not detected Entero/Rhino (PCR) Not detected PFSH Medical History Acute exacerbation of chronic bronchitis Arthritis (Unknown) Chronic ankle pain, bilateral Chronic pain syndrome (Unknown) Depression (Unknown) Foraminal stenosis of lumbar region Hepatitis C (Unknown) Hypertension (Unknown) Impotence (Unknown) Kidney stones (Unknown) Migraines (Unknown) Peripheral neuropathy Pneumonia (~2018) Prostate cancer (Unknown) PTSD (post-traumatic stress disorder) (Unknown) Restless leg syndrome (Unknown) Rheumatoid arthritis Skin cancer (Unknown) Surgical History History of back surgery History of carpal tunnel repair History of lumbar fusion History of tonsillectomy Hx of foot surgery Hx of joint replacement Hx of laminectomy (10/2012) Status post cholecystectomy Status post knee surgery Family History Father Heart disease Mother No problems noted. Social History household members: spouse Smoking Status: Former smoker Tobacco: How many years used: 20 quit status: has quit before alcohol intake: former substance use type: former substance user and marijuana Assessment & Plan Assessment & Plan narrative: 75-year-old male Kip Yonatan with a history of coronary artery disease, hypertension, hepatitis-C, severe chronic back pain, PTSD/depression, R middle lobe syndrome, mild COPD, rheumatoid arthritis, peripheral neuropathy, prostate and skin cancer, and opioid dependent who was admitted for community-acquired pneumonia. 1. Acute right lower lobe pneumonia, community acquired, rule out sepsis given broad spectrum antibiotics in the ER, narrowed to CAP treatment with ceftriaxone and azithromycin. -CXR with R middle and lower lobe conslidations, given history of R middle lobe syndrome that may account for some of the findings of CXR. -respiratory panel negative, including covid negative x2. -f/u sputum cultures 2. Acute hypoxemic respiratory therapy, resolved - patient able to be weaned off of supplemental O2 today, continue to follow and support as needed for SpO2 <90%. - RT eval and treatment appreciated - see above treatment for source, Community acquired pneumonia. 3. Essential Hypertension, chronic, well controlled, not present on admission -continue patient's home amlodipine, losartan, HCTZ, metoprolol 4. Chronic pain syndrome, secondary to foraminal stenosis of lumbar region, lumbar radiculopathy, peripheral neuropathy, and rheumatoid arthritis, acute on chronic, present on admission -continue patient's methocarbamol,pregabalin, oxycodone increased 10 mg Q 6 hours to q.4 hours for initial 24 hours of admission, will return to Q 6 as of 9:00 p.m. on 11/08/2019. 5. Morbid obesity, BMI 35.6, acute on chronic, present on admission -recommend dietary consult 6. PTSD/depression, chronic, not present on admission -patient verbalized no depression at this time or suicidal ideation -Continue patient's fluoxetine a total of 30 mg q.day 7. Mild COPD, chronic - continue home medications. Does not represent acute exacerbation. Code status: Full Surrogate/plan of care: Spouse Paty BAUGH PCR: Negative VTE prophylaxis: Lovenox 40 mg q.day and SCD Quality VTE Deep Vein Thrombosis/Pulmonary Embolism Present on Admission: No
[2020-11-08] MEDS: AMLODIPINE 5 MG TABLET 10 MG PO (20:16)
--- NOTE | 2020-11-08 22:19 | PC.NURSE ---
Patient complaining about pompa catheter bothering him. Spoke with Jean-Pierre MYLES and was given an verbal order to remove. Patient tolerated well.
[2020-11-09] MEDS: methocarbamoL 500 MG TABLET PO (00:48)
--- NOTE | 2020-11-09 01:01 | PC.NURSE ---
Addendum entered by Marilu Larry R.N. 11/09/20 06:10: Complains of headache so SHAMEKA Dean, informed and new order received for Toradol x 1 dose. Patient also complains of feeling SOB. Initially RA sat 90% but after resting in bed was up to 92%. RT called and gave patient neb Rx after which sat at 97%. Coughed up red sputum prior to Rx and now coughed up some green sputum. Addendum entered by Marilu Larry R.N. 11/09/20 02:28: States pain is now 6/10; medicated with Oxycodone and agreeable to trying an ice pack. Original Note: patient is alert and oriented. Audible expiratory wheezing and auscultated throughout; breath sounds very diminished especially in right LL. RA sat 93%. States he is still coughing up yellow/green sputum with blood streaks. HRR. Denies nausea. BT present and abdomen is soft. Catheter d'cd at 2200 and has not yet voided. Complaining of 6/10 achy back pain which becomes sharp with movement; pain is chronic. Medicated with Robaxin and SHAMEKA Dean, contacted to get new order for Oxycodone as old order at 2100 last noc. Is able to turn himself in bed. Evening RN reported he gets out of bed with walker and 1 assist. Chronic neuropathy/numbness in bilateral feet and right thigh. Calf SCD's applied to bilateral legs. Fall risk score is high and bed alarm is activated.
[2020-11-09] MEDS: OXYCODONE IR 10 MG TABLET PO ×3 (02:26→13:31)
[2020-11-09] MEDS: PREGABALIN 75 MG CAPSULE PO ×2 (05:47→12:59)
[2020-11-09 05:53] VITALS: BP 154/65; PULSE 93; RESP 18; TEMP 36.9; O2SAT 92
[2020-11-09 05:59] VITALS: PULSE 87; RESP 18; O2SAT 92
[2020-11-09 05:59] LABS: Add Manual Diff / Slide Review NO; Basophils Absolute Auto 0 /uL (0-100); Basophils Percent Auto 0.1 % (0-2); Eosinophils Absolute Auto 100 /uL (0-450); Eosinophils Percent Auto 0.5 % (2-4); Hemoglobin 9.8 g/dL (13.5-17.5); Lymphocytes Absolute Auto 1200 /uL (1100-4500); Lymphocytes Percent Auto 9.1 % (25-40); Mean Corpuscular HGB Conc 32.8 % (30-36); Mean Corpuscular Hemoglobin 26.6 PG (26-34); Mean Corpuscular Volume 80.9 fL (80-100); Monocytes Absolute Auto 1400 /uL (0-900); Monocytes Percent Auto 11.2 % (3-14); Neutrophils Absolute Auto 10100 /uL (1500-7000); Neutrophils Percent Auto 79.1 % (50-75); Platelet Count 184 X10^3/uL (150-400); Red Cell Distribution Width 15.3 % (11.6-14.8); White Blood Cell Count 12.8 X10^3/uL (4.5-11.0)
[2020-11-09] MEDS: ALBUTEROL 2.5 MG/3 ML NEB (ADULT) INH (05:59)
[2020-11-09 06:05] LABS: BUN Creatinine Ratio 30.6 (6-22); Blood Urea Nitrogen 19 mg/dL (9-20); Calcium 7.9 mg/dL (8.4-10.2); Carbon Dioxide 33 mmol/L (22-32); Chloride 101 mmol/L (98-107); Estimated Glomerular Filt Rate > 60.0 mL/min (>60); Glucose 105 mg/dL (80-110); HEMOLYSIS < 15 (0-50); Potassium 3.3 mmol/L (3.4-5.1); Sodium 134 mmol/L (137-145)
[2020-11-09] MEDS: KETOROLAC 10 MG TABLET PO (06:09)
[2020-11-09 06:38] LABS: Procalcitonin 3.59 ng/mL (<0.5)
[2020-11-09 07:45] VITALS: BP 141/57; PULSE 90; RESP 17; TEMP 37.7; O2SAT 94
[2020-11-09 08:32] VITALS: BP 141/57; PULSE 90
[2020-11-09] MEDS: LOSARTAN 50 MG TABLET 100 MG PO (08:32)
[2020-11-09 08:33] VITALS: BP 141/57; PULSE 90
[2020-11-09] MEDS: FLUoxetine 20 MG CAPSULE PO (08:33)
[2020-11-09] MEDS: METOPROLOL ER 50 MG TABLET 100 MG PO (08:33)
[2020-11-09] MEDS: PANTOPRAZOLE 40 MG TABLET PO (08:33)
[2020-11-09] MEDS: FOLIC ACID 1 MG TABLET PO (08:33)
[2020-11-09] MEDS: CEFTRIAXONE 1 GM/50 ML FROZ.PIGGY IV (08:34)
[2020-11-09] MEDS: ENOXAPARIN 40 MG/0.4 ML SYRINGE SUBCUT (08:34)
[2020-11-09] MEDS: AZITHROMYCIN 250 MG TABLET 500 MG PO (08:37)
[2020-11-09] MEDS: hydroCHLOROthiazide 12.5 MG CAPSULE PO (08:37)
[2020-11-09] MEDS: ASPIRIN EC 81 MG TABLET PO (08:38)
[2020-11-09] MEDS: FLUoxetine 10 MG CAPSULE PO (08:38)
[2020-11-09] MEDS: POTASSIUM CHLORIDE 20 MEQ TAB 40 MEQ PO (08:40)
--- NOTE | 2020-11-09 09:41 | PT.IPTN ---
Current Diagnoses Pneumonia, unspecified organism (11/07/20) Physical Therapy Treatment Note M2 PT-IP Current Condition Start: 11/08/20 09:04 Freq: NEEDED Status: Active Protocol: Document 11/08/20 10:35 AW (Rec: 11/08/20 11:05 AW [id number]) Physical Therapy Current Condition Current Condition Evaluation Date 11/08/20 Treatment Diagnosis RLL PNA; generalized weakness; difficulty in walking Onset Date 11/06/20 M3 PT-IP Subjective Start: 11/08/20 09:04 Freq: NEEDED Status: Active Protocol: Document 11/09/20 09:41 AB (Rec: 11/09/20 10:56 AB [id number]) Subjective Physical Therapy Visit Type Type Treatment Note Visit Start Time 09:41 Visit Stop Time 09:56 Total Visit Minutes 15 Number of TRASH COLLECTOR Visits 0 Physical Therapy Visit Comments Patient Comments pt is agreeable to do PT Therapy Pain Assessment Pain When Pain Assessed At Rest Pain Present Pain Present Pain Reported Location Back Intensity 4 Scale Used Numeric (0 - 10) Pain Management Techniques Re-positioning,Timing of Activity with Medications M4 PT-IP Mobility and Gait Start: 11/08/20 09:04 Freq: NEEDED Status: Active Protocol: Document 11/09/20 09:41 AB (Rec: 11/09/20 10:56 AB [id number]) PT-Bed Mobility Assessment Supine to Sit Supine to Sit Standby Assistance PT-Transfer Assessment Sit to and From Stand Sit to and from Stand Standby Assistance Equipment Transfer Assistive Device None,Gait Belt Orthotic/Prosthetic Devices or Brace: No Comments Mobility Comments completed supine to sit SBA, sit to stand SBA and ambulated in room ~ 50 ft without AD SBA to CGA with antalgic gait. c/o chronic back pain stated that initial ambulation is usually unsteady due to pain. agreed to ambulate in the hallway and completed 250 ft without AD SBA with on standing rest break. ambulated back to his room and agreed to sit up on chair. call light and table placed within reach. (+) SOB during and after ambulation. O2 sat checked: 93-94% at room air. Gait Assessment Gait Gait Assistance Required: Standby Assistance,Contact Guard Assist Distance (Feet) 250 Able to Maintain Weight Bearing Status Yes During Gait Assistive Devices Assistive Device None,Gait Belt Orthotic/Prosthetic Devices or Brace: No Gait Deviations General Gait Pattern Antalgic,Decreased Feet Clearance Factors Limiting Gait Function Factors Limiting Gait Function Decreased Activity Tolerance, Decreased Sensation,Decreased Strength,Limited Range of Motion,Pain,Poor Balance, Respiratory Distress Comments Gait Comments pls refer to mobility section for details M5 PT-IP Objective Assessments Start: 11/08/20 09:04 Freq: NEEDED Status: Active Protocol: Document 11/08/20 10:35 AW (Rec: 11/08/20 11:05 AW [id number]) Orientation Orientation/Cognition Level of Alertness Alert Orientation Name,Month,Place,Situation Language Function Ability No Deficits Noted Safety Awareness Decreased Safety Awareness Gross Range of Motion Lower Extremity ROM Assessment Within Functional Limits Strength Lower Extremity Strength Assessment Bilaterally Impaired Hip 4-/5 Knee 4/5 Ankle 4-/5 Sensation Assessment Sensation Gross Sensation Right LE Impaired,Left LE Impaired Light Touch Impaired Sensation Description Numbness,Tingling Comments Sensation Comments Chronic peripheral neuropathy affecting sensation in bilateral feet Muscle Tone Muscle Tone WNL No Muscle Tone Location Right Upper Extremity Manifistation of Tone Intention Tremors Comments Muscle Tone Comments Pt states RUE tremor becomes more pronounced with increased pain. M6 PT-IP Treatment Start: 11/08/20 09:04 Freq: NEEDED Status: Active Protocol: Document 11/09/20 09:41 AB (Rec: 11/09/20 10:56 AB [id number]) Physical Therapy Treatment Education Education Provided Safety M7 PT-IP Assessment and Plan Start: 11/08/20 09:04 Freq: NEEDED Status: Active Protocol: Document 11/09/20 09:41 AB (Rec: 11/09/20 10:56 AB [id number]) PT Summary Assessment and Plan Potential Rehabilitation Potential Good Summary Impairments Pain,ROM,Strength,Balance, Coordination,Sensation, Cognition,Bed Mobility, Transfers,Gait,Activity Tolerance Progress Towards Goals Progressing Toward Goals Assessment Summary pt is progressing with mobility and able to ambulate without AD SBA to initial CGA. pt plans to go home and spouse will be able to assist as needed. pt may go home when medically stable. Goals Bed Mobility Goal Independent Transfer Goal Independent Gait Goal Independent Gait Distance 150 Days to Meet Goals 5 Frequency of Treatment Frequency Of Treatment Once a Day Treatment Plan Physical Therapy Treatment Plan Bed Mobility Training,Transfer Training,Gait Training, Therapeutic Exercise,Balance Retraining,Discharge Planning, Hot or Cold Pack,Neuromuscular Re-ed Recommendations To Nursing Amount of Assist Needed 1 Person Assist Discharge Recommendations PT Discharge Recommendations Home with Assistance Transportation Needs at Discharge Private Vehicle
[2020-11-09 09:56] VITALS: O2SAT 94
--- NOTE | 2020-11-09 11:33 | P.DS_ITS ---
History of Present Illness History of Present Illness Date Patient Seen: 11/09/20 Time Patient Seen: 11:41 Chief complaint: lethargic/fever Narrative: As per KALPESH Roche-: 75-year-old male Barrett Tam with a history of coronary artery disease, hypertension, hepatitis-C, severe chronic back pain, PTSD/depression, rheumatoid arthritis, peripheral neuropathy, prostate and skin cancer, and opioid dependent presents with 3 days of increasing cough, wheeze, noted sputum production beginning this morning, general malaise, increasing arthralgias, mild decrease in his overall mental status and alertness and this morning had some vomiting. In looking through the patient's chart I found that he had a ER visit for atypical pneumonia 07/09/2020, and a telemedicine visit with his primary care Dr. Snell on 10/04/2020 for acute bronchitis. He denies any diarrhea. He does not complain of specific chest pain but does note that his chest tightness that radiates into his back from coughing and wheezing. He does complain of fee ling short of breath. He has noted no increase in lower extremity edema and is not specifically noticing lower abdominal pain. He states that his pain at this time is a 5/10, and a shortness of breath is improved since coming to the emergency room, he notes he uses no oxygen at home and that he has had a fever x3 days body aches chills and decreased appetite. Patient notes when he was transferred to the floor for admit he developed a headache with light sensitivity, he notes a history of migraines but no longer takes medication for management. Patient reports on admission that he has increased swelling of his hands and feet due to taking prednisone 5 mg once daily for a recent rheumatoid arthritis flare of which is now resolving. Patient notes that he lives with his walks independently at home occasionally uses a cane but is able to complete his ADLs independently and participate in the care of is home. Patient notes no neurological changes or exacerbation of his normal baseline of chronic back pain other than what is noted above. Patient's main complaint is pain at this time due to his chronic back condition, patient was due to see his neurosurgeon again regarding further discussion for future interventions. Upon admit patient's WBC 18.1 with a left shift, lactate 2.3, procalcitonin 6.75, proBNP 829, HGB 120, HCT 35.4, RBC 4.40, sodium 136, potassium 3.0, glucose 130, troponin was negative VBG site: PH 7.49, bicarb 29, base 6.0, FiO2 32. CXR:Ground-glass opacity in the right mid lung and right lung base, nonspecific but potentially representing edema or infection. Increased interstitial markings in both lungs raise additional concern for pulmonary edema. Correlate with BNP and white blood cell count. Vital signs: Temperature 100.6?, 124/58, HR 97, RR 20, O2 sat 95% on 3 L nasal cannula. Patient admitted for right lower lobe pneumonia rule out sepsis Discharge Providers Provider Date of admission: 11/07/20 20:08 Discharge Date: 11/09/20 Primary care physician: Edilberto Snell DO Consults: 11/07/20 21:29 Consult to Discharge Planning Routine Comment: Consult to Occupational Therapy Evaluate & Treat Comment: Physician Instructions: Evaluate and treat Consult to Physical Therapy Evaluate & Treat Comment: Physician Instructions: Evaluate and Treat 11/09/20 11:22 Consult to Home Health Routine Comment: Pneumonia community acquired, hypertension Reason For Exam: Set up HH RN/PT/OT for discharge home Discharge provider: Carlos Aragon DO Summary Hospital Course Discharge Diagnosis: 1. Acute right lower lobe pneumonia, community acquired, improved. 2. Essential Hypertension, chronic, well controlled, not present on admission 3. Chronic pain syndrome, secondary to foraminal stenosis of lumbar region, lumbar radiculopathy, peripheral neuropathy, and rheumatoid arthritis, acute on chronic, present on admission 4. Morbid obesity, BMI 35.6, acute on chronic, present on admission 5. PTSD/depression, chronic, not present on admission 6. Sepsis ruled out. 7. Acute hypoxemic respiratory failure, resolved. Hospital Course: Barrett Tam is a 75-year-old male with a past medical history of hypertension, obesity, PTSD and depression, and chronic pain who was admitted with a community-acquired pneumonia. He was started on antibiotics and continued on ceftriaxone and vancomycin. He was initially given cefepime and Vanco in the ER but this was narrowed to community-acquired pneumonia treatment upon arrival to the floor. He initially had a sofa score of 2 but primarily due to acute hypoxemic respiratory failure due to his pneumonia. He improved rather quickly and was off oxygen on hospital day 1. By hospital day 2 he was feeling well, and was able to ambulate around the nursing station. He was discharged home with home health on oral antibiotics to complete course for community- acquired pneumonia. No medication changes are recommended at this time and the patient can follow-up with his primary care provider as previously scheduled. Exam Vital Signs (past 8 hours): - 11/09/20 05:53 11/09/20 05:59 11/09/20 07:45 Temperature 98.5 F 99.9 F H Pulse Rate 93 H 87 90 Respiratory Rate 18 18 17 Blood Pressure 154/65 H 141/57 H Pulse Oximetry 92 92 94 11/09/20 08:32 11/09/20 08:33 11/09/20 09:56 Temperature Pulse Rate 90 90 Respiratory Rate Blood Pressure 141/57 H 141/57 H Pulse Oximetry 94 Oxygen Delivery Method Room Air Oxygen Flow Rate 0 Narrative Exam Narrative: General: Patient is a well-developed, well-nourished male in no distress at this time. HEENT: Normocephalic, atraumatic, extraocular muscles intact, oral pharynx is clear and mucous membranes are moist. Neck is supple and symmetric, trachea is midline, no adenopathy, no thyroid enlargement, nontender, no masses palpated. Negative for JVD Chest: Normal AP diameter and contour without kyphoscoliosis Lungs: Auscultation of all lung brown with rhonchi in the right lower lobe. No wheezing. Full and symmetrical air movement. Cardio: S1 & S2 with regular rate and rhythm without murmur, rubs, or gallops, no carotid bruit, no cardiac pulsations present. Abdomen: Soft, non-tender, non-distended. Musculoskeletal: Muscle strength and tone are equal within normal limits, no d eformity, crepitus, effusions, cyanosis, clubbing. Mild edema present to bilateral hands and feet nonpitting. Full range of motion intact radial and pedal pulses are normal. Skin: Warm dry and intact without rashes, ulcerations or petechiae. Neuro: Alert and orientated x3, strength is +5/5 in all extremities, sensation to touch intact, no gross deficits noted of cranial nerves. Psych: Patient has a well-kept appearance, appropriate affect, mental status attitude thought context and judgment are appropriate for age. Objective Labs Result Diagrams: 11/09/20 05:25 11/09/20 05:25 Labs: Laboratory Results - last 24 hr 11/09/20 11/09/20 11/09/20 05:25 05:25 05:25 WBC 12.8 H RBC 3.70 L Hgb 9.8 L Hct 30.0 L MCV 80.9 MCH 26.6 MCHC 32.8 RDW 15.3 H Plt Count 184 Neut % (Auto) 79.1 H Lymph % (Auto) 9.1 L Sunflower % (Auto) 11.2 Eos % (Auto) 0.5 L Baso % (Auto) 0.1 Neut # (Auto) 88308 H Lymph # (Auto) 1200 Sunflower # (Auto) 1400 H Eos # (Auto) 100 Baso # (Auto) 0 Sodium 134 L Potassium 3.3 L Chloride 101 Carbon Dioxide 33 H BUN 19 Creatinine 0.62 L Estimated GFR > 60.0 BUN/Creatinine Ratio 30.6 H Glucose 105 Calcium 7.9 L Procalcitonin 3.59 H PFSH Medical History Acute exacerbation of chronic bronchitis Arthritis (Unknown) Chronic ankle pain, bilateral Chronic pain syndrome (Unknown) Depression (Unknown) Foraminal stenosis of lumbar region Hepatitis C (Unknown) Hypertension (Unknown) Impotence (Unknown) Kidney stones (Unknown) Migraines (Unknown) Peripheral neuropathy Pneumonia (~2018) Prostate cancer (Unknown) PTSD (post-traumatic stress disorder) (Unknown) Restless leg syndrome (Unknown) Rheumatoid arthritis Skin cancer (Unknown) Surgical History History of back surgery History of carpal tunnel repair History of lumbar fusion History of tonsillectomy Hx of foot surgery Hx of joint replacement Hx of laminectomy (10/2012) Status post cholecystectomy Status post knee surgery Family History Father Heart disease Mother No problems noted. Social History household members: spouse Smoking Status: Former smoker Tobacco: How many years used: 20 quit status: has quit before alcohol intake: former substance use type: former substance user and marijuana Discharge Plan Discharge Plan Patient Disposition: Home Health Service Provider Discharge Comment: You were admitted to the hospital for pneumonia and improved with antibiotics. Please complete your course of antibiotic therapy at home, which will be another 3 days of medication. Discharge orders & Medications Prescriptions: New amoxicillin-pot clavulanate 875-125 mg tablet 1 tab PO BID 3 Days Qty: 6 RF: 0 Continued adjuvant AS01B (PF)vial 1 of 2 [Shingrix Adjuvant Component-PF] suspension 0.5 ml IM ONCE Qty: 0.5 RF: 0 albuterol sulfate 90 mcg/actuation HFA aerosol inhaler 1 inh INHALATION Q4-6H PRN (Reason: shortness of breath) Qty: 18 RF: 4 fluticasone propionate 50 mcg/actuation spray,suspension 1 spray Intranasal BID Qty: 1 RF: 3 losartan 100 mg tablet 100 mg PO DAILY Qty: 90 RF: 1 fluoxetine 20 mg capsule 20 mg PO QDAY Qty: 90 RF: 1 fluoxetine 10 mg capsule 10 mg PO DAILY Qty: 90 RF: 1 hydrochlorothiazide 12.5 mg capsule 12.5 mg PO DAILY Qty: 90 RF: 1 amlodipine 10 mg tablet 10 mg PO QDAY IN PM Qty: 90 RF: 1 omeprazole 40 mg capsule,delayed release(DR/EC) 40 mg PO Q DAY Qty: 90 RF: 1 metoprolol succinate 100 mg tablet extended release 24 hr See Rx Instructions .ROUTE .COMPLEX Qty: 90 RF: 1 oxycodone 10 mg tablet 10 mg PO Q6-8H PRN (Reason: chronic pain) Qty: 120 RF: 0 aspirin 81 mg tablet,delayed release (DR/EC) 81 mg PO DAILY RF: 0 albuterol sulfate 2.5 mg /3 mL (0.083 %) solution for nebulization 2.5 mg Continuous Nebulization Q6HP PRN (Reason: shortness of breath or wheezing) Qty: 360 RF: 1 pregabalin [Lyrica] 75 mg capsule 75 mg PO Q8H Qty: 270 RF: 1 methocarbamol 500 mg tablet 500 mg PO TID PRN (Reason: Back spasm) Qty: 90 RF: 1 ondansetron 4 mg tablet,disintegrating 4 mg PO Q8H PRN (Reason: nausea and vomiting) Qty: 10 RF: 0 Disabled Parking Permit 1 1 % SEEINSTR RF: 0 albuterol sulfate 2.5 mg /3 mL (0.083 %) solution for nebulization 2.5 mg inhalation PRN PRN (Reason: Shortness Of Breath) RF: 0 Follow up/Referrals: Edilberto Snell, [Primary Care Provider] - Diet/Activity/Treatments Diet: Diet as Tolerated Activity: As tolerated Discharge Data Primary Care Provider: Edilberto Snell Quality VTE Deep Vein Thrombosis/Pulmonary Embolism Present on Admission: No
--- NOTE | 2020-11-09 12:42 | CM.DPNOTE ---
Faxed face to face for [facility] along with clinicals and order on 11/09/20 per Jeanine. Fax confirmation received. Natalie Linda CM Asst.
--- NOTE | 2020-11-09 12:56 | CM.DPC ---
DCP Discharge Home with HH Per MD, pt likely stable for d/c home today and agreeable with HH and signed the F2F. Per PT/OT, recommending home with spouse assist and HH. SW met bedside with pt and explained role and pt confirms he feels much better and agreeable with d/c plan of home with spouse today who will be bedside around 1100. SW provided pt's Medicare Rights and he acknowledged understanding and gave verbal signature on his Medicare Message. SW discussed HH and pt acknowledges that he has utilized HH a few years ago when he had ankle surgery and felt they were helpful but cannot remember the agency he used. Pt reviewed the HH Choice List and no preference so SW made HH referral to [facility] based on Vendor Calendar. KASHIF Estrada faxed clinicals including F2F and MD orders and JAYCE called Nellie at [facility] with pt referral and likely d/c home today and they can accept. JAYCE provided [facility] brochure to pt to take home in his discharge instructions and JAYCE updated RN. Plan: Patient to d/c home later today via spouse POV and [facility] to follow after discharge. ROLAND Ravi
--- NOTE | 2020-11-09 13:11 | PC.NURSE ---
Pt education given, discussed- antibiotic therapy/medication safety, pneumonia, s/s of stroke, s/s of infection, reasons to seek medical attention, diet, activity, Home Health information. Pt dressed independently. IV's removed and intact. All belongings placed in bag and given to pt and . Pt left via w/c by [employer] accompanied by , to POV.
--- NOTE | 2020-11-10 05:50 | P.HP_ITS ---
History of Present Illness History of Present Illness Date Patient Seen: 11/09/20 Time Patient Seen: 22:00 Chief complaint: FEVER, CHILLS Narrative: Patient is a 75-year-old male Barrett Tam who was admitted and then subsequently discharged approximately 24 hours ago from this facility for diagnosis of pneumonia. He states that after he returned home this morning his symptoms seem to worsen knee became more short of breath and coughing and not feeling well. He became anxious about the symptoms insert return to the emergency department for further evaluation. He states that overall he does not feel very well. He does not feel any better them when he was admitted to the hospital. Upon admission examination patient complained of severe pain and swelling to the right side mandible joint area of face causing a radiating headache, this is an acute onset patient did not complain of this on previous hospitalization. Patient's vitals on admit 136/63, HR 89, RR 25, O2 saturation 91% on 3 L, temp 100.7?, WBC 11.1, hemoglobin 9.9, hematocrit 30.1, sodium 131, chloride 97, D-dimer 640, BUN creatinine ratio 22.1, CRP 8.9, procalcitonin 2.21, albumin 3.4, so for score of 1 Relatively prominent right midlung infiltrate is seen, which is clearly worse compared to the 11/07/2020 examination.Patient is fairly ill appearing. He was tachypneic and febrile and hypoxic to the low 90s. Chest x-ray reported by Radiology to be worsening from initial x-ray on 11/07/2020. Patient overall feels very poorly and was given antibiotics in ER. remained afebrile, patient readmitted for right lower lobe pneumonia. Hospital admit 11/07/2020- Discharge Diagnosis 11/09/2020 at 11:[address] Patel:Acute right lower lobe pneumonia, community acquired, improved, Essential Hypertension, Chronic pain syndrome, secondary to foraminal stenosis of lumbar region, lumbar radiculopathy, peripheral neuropathy, and rheumatoid arthritis, Morbid obesity,PTSD/depression,Sepsis ruled out, Acute hypoxemic respiratory failure, resolved. Hospital Course: Barrett Tam is a 75-year-old male with a past medical history of hypertension, obesity, PTSD and depression, and chronic pain who was admitted with a community-acquired pneumonia. He was started on antibiotics and continue d on ceftriaxone and vancomycin. He was initially given cefepime and Vanco in the ER but this was narrowed to community-acquired pneumonia treatment upon arrival to the floor. He initially had a sofa score of 2 but primarily due to acute hypoxemic respiratory failure due to his pneumonia. He improved rather quickly and was off oxygen on hospital day 1. By hospital day 2 he was feeling well, and was able to ambulate around the nursing station. He was discharged home with home health on oral antibiotics to complete course for community- acquired pneumonia. No medication changes are recommended at this time and the patient can follow-up with his primary care provider as previously scheduled. Patient History Medical History Acute exacerbation of chronic bronchitis Arthritis (Unknown) Chronic ankle pain, bilateral Chronic pain syndrome (Unknown) Depression (Unknown) Foraminal stenosis of lumbar region Hepatitis C (Unknown) Hypertension (Unknown) Impotence (Unknown) Kidney stones (Unknown) Migraines (Unknown) Peripheral neuropathy Pneumonia (~2017) Prostate cancer (Unknown) PTSD (post-traumatic stress disorder) (Unknown) Restless leg syndrome (Unknown) Rheumatoid arthritis Skin cancer (Unknown) Surgical History History of back surgery History of carpal tunnel repair History of lumbar fusion History of tonsillectomy Hx of foot surgery Hx of joint replacement Hx of laminectomy (10/2012) Status post cholecystectomy Status post knee surgery Family & Social History Family History Father Heart disease Mother No problems noted. Social History: household members spouse Prior Living Arrangements Mobile home Safety & Behavioral: Feels Safe in Current Yes Environment Been Physically Hurt or No Threatened By a Person Suicidal Ideation Description None Suicide Plan Description No Plan Tobacco & Substance use: Smoking Status Former smoker alcohol intake former Substance Use Type does not use,former substance user Meds Home Medications and Allergies Home Medications Medication Instructions Recorded Confirmed Type adjuvant AS01B (PF)vial 1 of 2 0.5 ml IM ONCE #0.5 ml 09/29/18 11/10/20 Rx aspirin 81 mg tablet,delayed 81 mg PO DAILY 07/02/19 11/10/20 History release albuterol sulfate 90 mcg/actuation 1 inh INHALATION Q4-6H PRN #18 gram 11/20/19 11/10/20 Rx aerosol inhaler fluticasone propionate 50 1 spray INTRANASAL BID #1 bot 03/09/20 11/10/20 Rx mcg/actuation nasal spray,suspension losartan 100 mg tablet 100 mg PO DAILY #90 tab 05/06/20 11/10/20 Rx fluoxetine 10 mg capsule 10 mg PO DAILY #90 cap 07/04/20 11/10/20 Rx fluoxetine 20 mg capsule 20 mg PO QDAY #90 cap 07/04/20 11/10/20 Rx amlodipine 10 mg tablet 10 mg PO QDAY IN PM #90 tab 08/05/20 11/10/20 Rx hydrochlorothiazide 12.5 mg capsule 12.5 mg PO DAILY #90 cap 08/05/20 11/10/20 Rx omeprazole 40 mg capsule,delayed 40 mg PO Q DAY #90 cap 08/05/20 11/10/20 Rx release methocarbamol 500 mg tablet 500 mg PO TID PRN #90 tab 09/20/20 11/10/20 Rx pregabalin 75 mg capsule 75 mg PO Q8H #270 cap 09/20/20 11/10/20 Rx albuterol sulfate 2.5 mg CONTINUOUS NEBULIZATION 10/04/20 11/10/20 Rx Q6HP PRN #360 ml metoprolol succinate 100 mg See Rx Instructions .ROUTE 10/12/20 11/10/20 Rx tablet,extended release 24 hr .COMPLEX #90 tablet oxycodone 10 mg tablet 10 mg PO Q6-8H PRN #120 tab 10/31/20 11/10/20 Rx Disabled Parking Permit 1 % SEEINSTR 11/08/20 11/10/20 History albuterol sulfate 2.5 mg INHALATION PRN PRN 11/08/20 11/10/20 History amoxicillin-pot clavulanate 1 tab PO BID 3 Days #6 tab 11/09/20 11/10/20 Rx Allergies Allergy/AdvReac Type Severity Reaction Status Date / Time cyclobenzaprine Allergy Verified 07/11/20 13:35 [From Flexeril] acetaminophen [ACETAMINOPHEN] AdvReac Unknown Can't take Verified 07/11/20 13:35 r/t Hep C Review of Systems Review of Systems ROS: Yes All systems reviewed with the patient and are negative except as otherwise documented Constitutional Constitutional: Reports body ache(s), Reports chills, Reports fatigue, Reports fever(s), Reports headache(s), Reports lethargy, Reports malaise and Reports po or appetite Eyes Eyes: Reports system reviewed and no additional complaints, except as documented ENT Ears, Nose, Mouth, and Throat: Yes facial pain (Right-sided jaw pain and swelling externally) and Yes headache(s) Cardiovascular Cardiovascular: Reports radiating jaw, neck or arm pain, Reports dyspnea, Reports dyspnea on exertion and Reports orthopnea Respiratory Respiratory: Reports chest congestion, Reports cough, Reports pain with cough, Reports dyspnea and Reports dyspnea on exertion Gastrointestinal Gastrointestinal: Reports system reviewed and no additional complaints, except as documented Genitourinary Genitourinary: Reports system reviewed and no additional complaints, except as documented Musculoskeletal Musculoskeletal: Reports system reviewed and no additional complaints, except as documented Integumentary/Breasts Skin/Breast: Reports system reviewed and no additional complaints, except as documented Neurologic Neurologic: Reports system reviewed and no additional complaints, except as documented and Reports headache(s) Psychiatric Psychiatric: Reports system reviewed and no additional complaints, except as documented Endocrine Endocrine: Reports system reviewed and no additional complaints, except as documented and Reports fatigue Hematologic/Lymphatic Hematologic/Lymphatic: Reports system reviewed and no additional complaints, except as documented Allergic/Immunologic Allergic/Immunologic: Reports system reviewed and no additional complaints, except as documented Exam Vital Signs (past 8 hours): - 11/09/20 22:15 11/09/20 22:43 11/09/20 23:10 Temperature Pulse Rate 99 H 89 Respiratory Rate 24 21 Blood Pressure 145/75 H Pulse Oximetry 94 95 96 11/09/20 23:12 11/09/20 23:18 11/10/20 00:05 Temperature 100.7 F H Pulse Rate 89 82 Respiratory Rate 25 H 22 Blood Pressure 136/63 Pulse Oximetry 95 92 11/10/20 00:30 11/10/20 04:39 Temperature 98.6 F 99.7 F H Pulse Rate 83 79 Respiratory Rate 24 22 Blood Pressure 121/54 L 137/62 Pulse Oximetry 94 91 Oxygen Delivery Method Nasal Cannula Oxygen Flow Rate 3 Narrative Exam Narrative: General: Patient is a well-developed, well-nourished male who appears moderately ill-appearing, in mild distress at this time. Patient is to presentation is deteriorated from previous admit on 11/07/2020, patient is unable to speak in complete sentences, and appears to be more agitated and more discomfort than prior admit exam. HEENT: Normocephalic, atraumatic, extraocular muscles intact, oral pharynx is clear and mucous membranes are dry. Neck is supple and symmetric, trachea is midline, no adenopathy, no thyroid enlargement, nontender, no masses palpated. Negative for JVD, patient reports pain and tenderness over right mandibular joint with palpation-no inflammation, warmth or lymphadenopathy palpated. Chest: Normal AP diameter and contour without kyphoscoliosis, no nasal flaring, retractions. Positive tachypneic labored work of breathing Lungs: Auscultation of all lung brown are grossly decreased airflow, decreased in bilateral bases over previous admit, gross diffuse wheezing. An occasional crackles. Full and symmetrical air movement. Cardio: S1 & S2 with regular rate and rhythm without murmur, rubs, or gallops, no carotid bruit, no cardiac pulsations present. Abdomen: Patient had severe upper right quadrant pain with palpation without guarding or rebound, negative for organomegaly, or masses. Bowel sounds are present in all 4 quadrants, no CVA tenderness. Musculoskeletal: Muscle strength and tone are equal within normal limits, no deformity, crepitus, effusions, cyanosis, clubbing. Mild edema present to bilateral hands and feet nonpitting. Full range of motion intact radial and pedal pulses are normal. Skin: Warm dry and intact without rashes, ulcerations or petechiae. Neuro: Alert and orientated x3, strength is +5/5 in all extremities, sensation to touch intact, no gross deficits noted of cranial nerves. Psych: Patient has a well-kept appearance, appropriate affect, mental status attitude thought context and judgment are appropriate for ag Objective Labs Result Diagrams: 11/09/20 20:10 11/09/20 20:10 Labs: Laboratory Results - last 24 hr 11/09/20 11/09/20 11/09/20 19:45 20:10 20:10 WBC 11.1 H RBC 3.67 L Hgb 9.9 L Hct 30.1 L MCV 81.8 MCH 26.9 MCHC 32.9 RDW 15.1 H Plt Count 181 Neut % (Auto) 82.4 H Lymph % (Auto) 4.6 L Mchenry % (Auto) 11.8 Eos % (Auto) 0.5 L Baso % (Auto) 0.7 Neut # (Auto) 9100 H Lymph # (Auto) 500 L Mchenry # (Auto) 1300 H Eos # (Auto) 100 Baso # (Auto) 100 PT 13.8 H INR 1.2 APTT 29 D-Dimer Sodium Potassium Chloride Carbon Dioxide BUN Creatinine Estimated GFR BUN/Creatinine Ratio Glucose Lactate Calcium Total Bilirubin AST ALT Alkaline Phosphatase C-Reactive Protein Total Protein Albumin Globulin Albumin/Globulin Ratio Lipase Procalcitonin SARS-CoV-2 (PCR) Negative 11/09/20 11/09/20 11/09/20 20:10 20:10 20:10 WBC RBC Hgb Hct MCV MCH MCHC RDW Plt Count Neut % (Auto) Lymph % (Auto) Mchenry % (Auto) Eos % (Auto) Baso % (Auto) Neut # (Auto) Lymph # (Auto) Mchenry # (Auto) Eos # (Auto) Baso # (Auto) PT INR APTT D-Dimer Sodium 131 L Potassium 3.6 Chloride 97 L Carbon Dioxide 32 BUN 15 Creatinine 0.68 Estimated GFR > 60.0 BUN/Creatinine Ratio 22.1 H Glucose 117 H Lactate 1.2 Calcium 7.8 L Total Bilirubin 0.5 AST 21 ALT 15 Alkaline Phosphatase 52 C-Reactive Protein Total Protein 6.1 L Albumin 3.4 L Globulin 2.7 Albumin/Globulin Ratio 1.3 Lipase 42 Procalcitonin 2.21 H SARS-CoV-2 (PCR) 11/09/20 11/09/20 20:10 20:10 WBC RBC Hgb Hct MCV MCH MCHC RDW Plt Count Neut % (Auto) Lymph % (Auto) Mchenry % (Auto) Eos % (Auto) Baso % (Auto) Neut # (Auto) Lymph # (Auto) Mchenry # (Auto) Eos # (Auto) Baso # (Auto) PT INR APTT D-Dimer 640 H Sodium Potassium Chloride Carbon Dioxide BUN Creatinine Estimated GFR BUN/Creatinine Ratio Glucose Lactate Calcium Total Bilirubin AST ALT Alkaline Phosphatase C-Reactive Protein 8.9 H Total Protein Albumin Globulin Albumin/Globulin Ratio Lipase Procalcitonin SARS-CoV-2 (PCR) Assessment & Plan Assessment & Plan narrative: This patient requires acute care readmit to inpatient hospital management for deteriorating right lower lobe pneumonia. After failing discharge within the same 24 hours. The patient is at much higher risk for medical and surgical complications because of his history of hypertension, hepatitis-C, previous alcohol and tobacco abuse in remission, and steroid management of rheumatoid arthritis. These factors increase the difficulty and complexity of medical and surgical interventions and increases the chances of poor outcomes such as morbidity and mortality secondary to steroid induced immunocompromised. The patient's morbid obesity and history of tobacco abuse will impact his oxygenation, which will likely contribute to impaired recovery. 1. Readmit for deteriorating- Acute right lower lobe pneumonia, community acquired, acute, present on admission -Patient's vitals on admit 136/63, HR 89, RR 25, O2 saturation 91% on 3 L, temp 100.7?, WBC 11.1, hemoglobin 9.9, hematocrit 30.1, sodium 131, chloride 97, D- dimer 640, BUN creatinine ratio 22.1, CRP 8.9, procalcitonin 2.21, albumin 3.4, so for score of 1 Relatively prominent right midlung infiltrate is seen, which is clearly worse compared to the 11/07/2020 examination.Patient is fairly ill appearing. He was tachypneic and febrile and hypoxic to the low 90s. Chest x- ray reported by Radiology to be worsening from initial x-ray on 11/07/2020. Patient overall feels very poorly and was given antibiotics in ER. remained afebrile, patient readmitted for right lower lobe pneumonia. Admit 11/07/2020 findings: proBNP 829, WBC 18.1 with a left shift, lactate 2.3, procalcitonin 6.75, proBNP 829, HGB 120, HCT 35.4, RBC 4.40, sodium 136, po tassium 3.0, glucose 130, troponin was negative VBG site: PH 7.49, bicarb 29, base 6.0, FiO2 32. CXR:Ground-glass opacity in the right mid lung and right lung base, nonspecific but potentially representing edema or infection. Increased interstitial markings in both lungs raise additional concern for pulmonary edema. Correlate with BNP and white blood cell count. Vital signs: Temperature 100.6?, 124/58, HR 97, RR 20, O2 sat 95% on 3 L nasal cannula.initial SOFA Score- 2, curb 65 initial score-1 low risk - 06/2020 PFT's:study demonstrates mild obstructive lung disease based on reduction FEV1 and FEV1/FVC ratio. There is evidence of limited benefit following bronchodilator as above There is minimal reduction in lung volumes suggesting minimal restrictive lung disease, There is also very minimal reduction in diffusing capacity suggesting the possibility of an element of disease at the capillary alveolar level as well -patient to be monitored on tele medicine, vital signs q.4 hours,O2 sat 91% on 3 L nasal cannula(maintain O2 sat greater than 92%) intake and output monitored Q/HR with a goal of urinary output greater than or equal to 50 cc/hr, weight measure daily, diet: Heart healthy -IV fluid: Initial Normal saline 60cc/hr -monitor for fluid overload in the presence of pneumonia and no sepsis present, patient able to taking oral fluids. -40mg prednisone PO Qday x 4days and DuoNebs provided as needed q.4 hours as needed with respiratory consult -labs ordered: CMP CBC, Mag, PT, troponin, proBNP, CRP, lactic acid Q 6 until resolving, blood cultures and sputum cultures pending.Urea ordered to complete Curb-65 score -due to decompensation and readmit for right lower lobe pneumonia will re- initiate vancomycin per pharmacy protocol and cefepime 2 g q.8 hours pt previously was on ceftriaxone 1 g q.day and azithromycin 500 mg q.day -consults ordered physical therapy, occupational therapy respiratory consult. -prevention vaccine- Flu recommended 2. Essential Hypertension, chronic, well controlled, not present on admission -continue patient's home amlodipine, losartan, HCTZ, metoprolol 3. Chronic pain syndrome, secondary to foraminal stenosis of lumbar region, lumb ar radiculopathy, peripheral neuropathy, and rheumatoid arthritis, acute on chronic, present on admission -continue patient's methocarbamol,pregabalin, oxycodone 10 mg q.4 hours. 4. Morbid obesity, BMI 35.6, acute on chronic, present on admission -recommend dietary consult 5. PTSD/depression, chronic, not present on admission -patient verbalized no depression at this time or suicidal ideation -Continue patient's fluoxetine a total of 30 mg q.day Code status: Full Surrogate/plan of care: Spouse Paty BAUGH PCR: Negative VTE prophylaxis: Lovenox 40 mg q.day and SCD Scores Wells' Criteria for PE Clinical signs and symptoms of DVT: No PE is #1 Dx or equally likely: No Heart rate > 100: No Immobilization at least 3 days or surg in previous 4 weeks: Yes History of PE or DVT: No Hemoptysis: No Malignancy w/Treatment within 6 months or palliative: No Wells' PE Score total: 1.5 Quality VTE Deep Vein Thrombosis/Pulmonary Embolism Present on Admission: No
--- NOTE | 2020-11-10 15:12 | P.PN_ITS ---
Subjective Subjective Date Patient Seen: 11/10/20 Time Patient Seen: 15:12 Interval history: 75-year-old male Barrett Tam with a history of coronary artery disease, hypertension, hepatitis-C, severe chronic back pain, PTSD/depression, R middle lobe syndrome, mild COPD, rheumatoid arthritis, peripheral neuropathy, prostate and skin cancer, and opioid dependent who was re-admitted for community-acquired pneumonia. He was discharged yesterday, but at home spiked a fever as high as 103 with worsening symptoms and fatigue and he decided to return to the emergency room. CT angiogram was performed this morning given his decline in respiratory status which was negative for pulmonary embolism but did show a moderate pneumonia in his right middle lobe. His coverage was broadened slightly with cefepime, vancomycin was added on admission but given overall improvement in his procalcitonin and leukocytosis a did not think that MRSA with highly likely and will not continue at this time. Patient again has fatigue and fever, but is generally feeling improved today. Exam Vital Signs (past 8 hours): - 11/10/20 08:00 11/10/20 10:23 11/10/20 11:09 Temperature 98.6 F Pulse Rate 78 78 77 Respiratory Rate 28 H 24 Blood Pressure 133/65 133/65 Pulse Oximetry 95 95 11/10/20 12:00 11/10/20 12:45 Temperature 98.1 F Pulse Rate 77 87 Respiratory Rate 20 Blood Pressure 131/85 131/85 Pulse Oximetry 93 Oxygen Delivery Method Room Air Oxygen Flow Rate 0 Narrative Exam Narrative: General: Patient is a well-developed, well-nourished male in no distress at this time but appears improved although much more acutely ill than on discharge day. HEENT: Normocephalic, atraumatic, extraocular muscles intact, oral pharynx is clear and mucous membranes are moist. Neck is supple and symmetric, trachea is midline, no adenopathy, no thyroid enlargement, nontender, no masses palpated. Negative for JVD Chest: Normal AP diameter and contour without kyphoscoliosis Lungs: Auscultation of all lung brown with rhonchi in the right lower lobe. minimal inspiratory wheezing with mildly diminished air movement. Cardio: S1 & S2 with regular rate and rhythm without murmur, rubs, or gallops, no carotid bruit, no cardiac pulsations present. Abdomen: Soft, non-tender, non-distended. Musculoskeletal: Muscle strength and tone are equal within normal limits, no deformity, crepitus, effusions, cyanosis, clubbing. Mild edema present to bilateral hands and feet nonpitting. Full range of motion intact radial and pedal pulses are normal. Skin: Warm dry and intact without rashes, ulcerations or petechiae. Neuro: Alert and orientated x3, strength is +5/5 in all extremities, sensation to touch intact, no gross deficits noted of cranial nerves. Psych: Patient has a well-kept appearance, appropriate affect, mental status attitude thought context and judgment are appropriate for age. Objective Labs Result Diagrams: 11/10/20 05:26 11/10/20 05:26 Labs: Laboratory Results - last 24 hr 11/09/20 11/09/20 11/09/20 19:45 20:10 20:10 WBC 11.1 H RBC 3.67 L Hgb 9.9 L Hct 30.1 L MCV 81.8 MCH 26.9 MCHC 32.9 RDW 15.1 H Plt Count 181 Neut % (Auto) 82.4 H Lymph % (Auto) 4.6 L [place] % (Auto) 11.8 Eos % (Auto) 0.5 L Baso % (Auto) 0.7 Neut # (Auto) 9100 H Lymph # (Auto) 500 L [place] # (Auto) 1300 H Eos # (Auto) 100 Baso # (Auto) 100 PT 13.8 H INR 1.2 APTT 29 D-Dimer Sodium Potassium Chloride Carbon Dioxide BUN Creatinine Estimated GFR BUN/Creatinine Ratio Glucose Lactate Calcium Magnesium Total Bilirubin AST ALT Alkaline Phosphatase C-Reactive Protein NT-Pro-B Natriuret Pep Total Protein Albumin Globulin Albumin/Globulin Ratio Lipase Procalcitonin SARS-CoV-2 (PCR) Negative 11/09/20 11/09/20 11/09/20 20:10 20:10 20:10 WBC RBC Hgb Hct MCV MCH MCHC RDW Plt Count Neut % (Auto) Lymph % (Auto) [place] % (Auto) Eos % (Auto) Baso % (Auto) Neut # (Auto) Lymph # (Auto) [place] # (Auto) Eos # (Auto) Baso # (Auto) PT INR APTT D-Dimer Sodium 131 L Potassium 3.6 Chloride 97 L Carbon Dioxide 32 BUN 15 Creatinine 0.68 Estimated GFR > 60.0 BUN/Creatinine Ratio 22.1 H Glucose 117 H Lactate 1.2 Calcium 7.8 L Magnesium Total Bilirubin 0.5 AST 21 ALT 15 Alkaline Phosphatase 52 C-Reactive Protein NT-Pro-B Natriuret Pep Total Protein 6.1 L Albumin 3.4 L Globulin 2.7 Albumin/Globulin Ratio 1.3 Lipase 42 Procalcitonin 2.21 H SARS-CoV-2 (PCR) 11/09/20 11/09/20 11/10/20 20:10 20:10 05:00 WBC RBC Hgb Hct MCV MCH MCHC RDW Plt Count Neut % (Auto) Lymph % (Auto) [place] % (Auto) Eos % (Auto) Baso % (Auto) Neut # (Auto) Lymph # (Auto) [place] # (Auto) Eos # (Auto) Baso # (Auto) PT INR APTT D-Dimer 640 H Sodium Potassium Chloride Carbon Dioxide BUN 12 Creatinine Estimated GFR BUN/Creatinine Ratio Glucose Lactate Calcium Magnesium Total Bilirubin AST ALT Alkaline Phosphatase C-Reactive Protein 8.9 H NT-Pro-B Natriuret Pep Total Protein Albumin Globulin Albumin/Globulin Ratio Lipase Procalcitonin SARS-CoV-2 (PCR) 11/10/20 11/10/20 11/10/20 05:26 05:26 05:26 WBC 10.4 RBC 3.55 L Hgb 9.6 L Hct 28.7 L MCV 80.9 MCH 27.0 MCHC 33.4 RDW 14.9 H Plt Count 180 Neut % (Auto) 72.3 Lymph % (Auto) 10.8 L [place] % (Auto) 15.3 H Eos % (Auto) 1.2 L Baso % (Auto) 0.4 Neut # (Auto) 7500 H Lymph # (Auto) 1100 [place] # (Auto) 1600 H Eos # (Auto) 100 Baso # (Auto) 0 PT INR APTT D-Dimer Sodium 132 L Potassium 3.2 L Chloride 100 Carbon Dioxide 32 BUN 12 Creatinine 0.55 L Estimated GFR > 60.0 BUN/Creatinine Ratio 21.8 Glucose 104 Lactate 0.8 Calcium 7.6 L Magnesium Total Bilirubin 0.6 AST 19 ALT 14 Alkaline Phosphatase 45 C-Reactive Protein NT-Pro-B Natriuret Pep Total Protein 5.7 L Albumin 3.1 L Globulin 2.6 Albumin/Globulin Ratio 1.2 Lipase Procalcitonin SARS-CoV-2 (PCR) 11/10/20 05:26 WBC RBC Hgb Hct MCV MCH MCHC RDW Plt Count Neut % (Auto) Lymph % (Auto) [place] % (Auto) Eos % (Auto) Baso % (Auto) Neut # (Auto) Lymph # (Auto) [place] # (Auto) Eos # (Auto) Baso # (Auto) PT INR APTT D-Dimer Sodium Potassium Chloride Carbon Dioxide BUN Creatinine Estimated GFR BUN/Creatinine Ratio Glucose Lactate Calcium Magnesium 1.8 Total Bilirubin AST ALT Alkaline Phosphatase C-Reactive Protein NT-Pro-B Natriuret Pep 1210 H Total Protein Albumin Globulin Albumin/Globulin Ratio Lipase Procalcitonin SARS-CoV-2 (PCR) [facility] Medical History Acute exacerbation of chronic bronchitis Arthritis (Unknown) Chronic ankle pain, bilateral Chronic pain syndrome (Unknown) Depression (Unknown) Foraminal stenosis of lumbar region Hepatitis C (Unknown) Hypertension (Unknown) Impotence (Unknown) Kidney stones (Unknown) Migraines (Unknown) Peripheral neuropathy Pneumonia (~2017) Prostate cancer (Unknown) PTSD (post-traumatic stress disorder) (Unknown) Restless leg syndrome (Unknown) Rheumatoid arthritis Skin cancer (Unknown) Surgical History History of back surgery History of carpal tunnel repair History of lumbar fusion History of tonsillectomy Hx of foot surgery Hx of joint replacement Hx of laminectomy (10/2012) Status post cholecystectomy Status post knee surgery Family History Father Heart disease Mother No problems noted. Social History household members: spouse Smoking Status: Former smoker Tobacco: How many years used: 20 quit status: has quit before alcohol intake: former substance use type: former substance user and marijuana Assessment & Plan Assessment & Plan narrative: 75-year-old male Barrett Tam with a history of coronary artery disease, hypertension, hepatitis-C, severe chronic back pain, seropositive RA, PTSD/depression, R middle lobe syndrome, mild COPD, rheumatoid arthritis, peripheral neuropathy, prostate and skin cancer, and opioid dependent who was re-admitted in <24 hours after being discharged recently for community- acquired pneumonia. Acute decompensation likely related in some part to COPD exacerbation. 1. Acute right lower lobe pneumonia, community acquired, rule out sepsis -CXR with R middle and lower lobe conslidations, given history of R middle lobe syndrome that may account for some of the findings of CXR. -respiratory panel negative on 1st admission, covid negative now x3. -continue cefepime given recurrence of fever despite previous response to azithro and ceftriaxone. okay to discontinue vanco as MRSA pneumonia highly unlikely. -CTA performed given worsening, negative for PE but persistent pneumonia noted. - if improved, consider discharge on cefdinir and azithro instead of augmentin, although he did not take any oral antibiotics at home. Recurrence of his fever at home is odd given overall improvement in labs and imaging performed today. - continue to follow CBC and procalcitonin. - consider alternative diagnosis if no improvement with history of RA including rheumatoid lung, although this would probably improve with steroid therapy for COPD exacerbation as well. 2. Acute hypoxemic respiratory therapy, resolved - patient able to be weaned off of supplemental O2 again today, continue to follow and support as needed for SpO2 <90%. - RT eval and treatment appreciated - decompensation after discharge likely related to both Community acquired pneumonia and COPD exacerbation. 3. COPD with exacerbation - continue prednisone 40 mg x5 days total. - appreciate repspiratory therapy assistance - continue duo-nebs as needed. 4. Essential Hypertension, chronic, well controlled, not present on admission -continue patient's home amlodipine, losartan, HCTZ, metoprolol 5. Chronic pain syndrome, secondary to foraminal stenosis of lumbar region, lumbar radiculopathy, peripheral neuropathy, and rheumatoid arthritis, acute on chronic, present on admission -continue patient's methocarbamol,pregabalin, oxycodone increased 10 mg Q 6 hours to q.4 hours for initial 24 hours of admission, will return to Q 6 as of 9:00 p.m. on 11/08/2019. 6. Morbid obesity, BMI 35.6, acute on chronic, present on admission -contributing to patients risk for pneumonia and respiratory failure. 7. PTSD/depression, chronic, not present on admission -patient verbalized no depression at this time or suicidal ideation -Continue patient's fluoxetine a total of 30 mg q.day. 8. history of rheumatoid arthritis - please see scanned note from rheumatology, has had previous few doses of Humira with improvement. Code status: Full Surrogate/plan of care: Spouse Paty BAUGH PCR: Negative VTE prophylaxis: Lovenox 40 mg q.day and SCD Quality VTE Deep Vein Thrombosis/Pulmonary Embolism Present on Admission: No
--- NOTE | 2020-11-11 16:00 | P.PN_ITS ---
Subjective Subjective Date Patient Seen: 11/11/20 Time Patient Seen: 14:00 Interval history: 75-year-old male Barrett Tam with a history of coronary artery disease, hypertension, hepatitis-C, severe chronic back pain, PTSD/depression, R middle lobe syndrome, mild COPD, rheumatoid arthritis, peripheral neuropathy, prostate and skin cancer, and opioid dependent who was re-admitted for community-acquired pneumonia. He was discharged on 11/09, but at home spiked a fever as high as 103 with worsening symptoms and fatigue and he decided to return to the emergency room. CT angiogram was performed yesterday given his decline in respiratory status which was negative for pulmonary embolism but did show a moderate pneumonia in his right middle lobe. His coverage was broadened slightly with cefepime, vancomycin was added on admission but given overall improvement in his procalcitonin and leukocytosis a did not think that MRSA with highly likely and was discontinued. He is seen again for follow-up today. He feels well and has been ambulating throughout the nursing station. His leukocytosis has returned to normal today. He denies complaints of chest pain or shortness of breath. He still has a cough which is minimally productive. Culture from previous admission grew yeast but no significant bacterial organisms. Exam Vital Signs (past 8 hours): - 11/11/20 08:50 11/11/20 08:51 11/11/20 09:08 Temperature Pulse Rate 72 72 77 Respiratory Rate 16 Blood Pressure 135/73 135/73 Pulse Oximetry 94 11/11/20 11:18 11/11/20 11:40 11/11/20 15:00 Temperature 98.7 F 96.6 F L Pulse Rate 94 H 94 H 73 Respiratory Rate 16 20 Blood Pressure 136/78 136/78 144/74 H Pulse Oximetry 92 92 Oxygen Delivery Method Room Air Oxygen Flow Rate 0 Narrative Exam Narrative: General: Patient is a well-developed, well-nourished male in no distress at this time but appears improved although much more acutely ill than on discharge day. HEENT: Normocephalic, atraumatic, extraocular muscles intact, oral pharynx is clear and mucous membranes are moist. Chest: Normal AP diameter and contour without kyphoscoliosis Lungs: Clear to auscultation bilaterally with no wheezing, rhonchi, or rales. Cardio: S1 & S2 with regular rate and rhythm without murmur, rubs, or gallops, no carotid bruit, no cardiac pulsations present. No lower extremity edema. Abdomen: Soft, non-tender, non-distended. Musculoskeletal: Muscle strength and tone are equal within normal limits, no deformity, crepitus, effusions, cyanosis, clubbing. Skin: Warm dry and intact without rashes, ulcerations or petechiae. Neuro: Alert and orientated x3, strength is +5/5 in all extremities, sensation to touch intact, no gross deficits noted of cranial nerves. Psych: Patient has a well-kept appearance, appropriate affect, mental status attitude thought context and judgment are appropriate for age. Objective Labs Result Diagrams: 11/11/20 08:35 11/11/20 08:35 Labs: Laboratory Results - last 24 hr 11/11/20 11/11/20 08:35 08:35 WBC 9.7 RBC 3.79 L Hgb 10.2 L Hct 30.6 L MCV 80.7 MCH 26.9 MCHC 33.3 RDW 14.9 H Plt Count 214 Neut % (Auto) 72.5 Lymph % (Auto) 12.9 L [place] % (Auto) 11.3 Eos % (Auto) 3.0 Baso % (Auto) 0.3 Neut # (Auto) 7000 Lymph # (Auto) 1300 [place] # (Auto) 1100 H Eos # (Auto) 300 Baso # (Auto) 0 Sodium 135 L Potassium 3.3 L Chloride 101 Carbon Dioxide 29 BUN 12 Creatinine 0.55 L Estimated GFR > 60.0 BUN/Creatinine Ratio 21.8 Glucose 136 H Calcium 8.2 L Total Bilirubin 0.4 AST 20 ALT 19 Alkaline Phosphatase 47 Total Protein 6.4 Albumin 3.4 L Globulin 3.0 Albumin/Globulin Ratio 1.1 [facility] Medical History (Reviewed 11/10/20 @ 06:16 by Lyndsay Tim [facility]) Acute exacerbation of chronic bronchitis Arthritis (Unknown) Chronic ankle pain, bilateral Chronic pain syndrome (Unknown) Depression (Unknown) Foraminal stenosis of lumbar region Hepatitis C (Unknown) Hypertension (Unknown) Impotence (Unknown) Kidney stones (Unknown) Migraines (Unknown) Peripheral neuropathy Pneumonia (~2018) Prostate cancer (Unknown) PTSD (post-traumatic stress disorder) (Unknown) Restless leg syndrome (Unknown) Rheumatoid arthritis Skin cancer (Unknown) Surgical History (Reviewed 11/10/20 @ 06:16 by Lyndsay Tim [facility]) History of back surgery History of carpal tunnel repair History of lumbar fusion History of tonsillectomy Hx of foot surgery Hx of joint replacement Hx of laminectomy (10/2012) Status post cholecystectomy Status post knee surgery Family History (Reviewed 11/10/20 @ 06:16 by Lyndsay Tim [facility]) Father Heart disease Mother No problems noted. Social History household members: spouse Smoking Status: Former smoker Tobacco: How many years used: 20 quit status: has quit before alcohol intake: former substance use type: former substance user and marijuana Assessment & Plan Assessment & Plan narrative: 5-year-old male Barrett Tam with a history of coronary artery disease, hypertension, hepatitis-C, severe chronic back pain, seropositive RA, PTSD/depression, R middle lobe syndrome, mild COPD, rheumatoid arthritis, peripheral neuropathy, prostate and skin cancer, and opioid dependent who was re-admitted in <24 hours after being discharged recently for community- acquired pneumonia. Acute decompensation likely related in some part to COPD exacerbation. 1. Acute right lower lobe pneumonia, community acquired, rule out sepsis -CXR with R middle and lower lobe conslidations, given history of R middle lobe syndrome that may account for some of the findings of CXR. -respiratory panel negative on 1st admission, covid negative now x3. -continue cefepime given recurrence of fever despite previous response to azithro and ceftriaxone. okay to discontinue vanco as MRSA pneumonia highly unlikely. -CTA performed given worsening, negative for PE but persistent pneumonia noted. - if improved, consider discharge on cefdinir and azithro instead of augmentin, although he did not take any oral antibiotics at home. Recurrence of his fever at home is odd given overall improvement in labs and imaging performed today. - continue to follow CBC and procalcitonin. - consider alternative diagnosis if no improvement with history of RA including rheumatoid lung, although this would probably improve with steroid therapy for COPD exacerbation as well. 2. Acute hypoxemic respiratory therapy, resolved - patient able to be weaned off of supplemental O2. continue to follow and support as needed for SpO2 <90%. - RT eval and treatment appreciated - decompensation after discharge likely related to both Community acquired pneumonia and COPD exacerbation. 3. COPD with exacerbation - continue prednisone 40 mg x5 days total. - appreciate repspiratory therapy assistance - continue duo-nebs as needed. 4. Essential Hypertension, chronic, well controlled, not present on admission -continue patient's home amlodipine, losartan, HCTZ, metoprolol 5. Chronic pain syndrome, secondary to foraminal stenosis of lumbar region, lumbar radiculopathy, peripheral neuropathy, and rheumatoid arthritis, acute on chronic, present on admission -continue patient's methocarbamol,pregabalin, oxycodone increased 10 mg Q 6 hour s to q.4 hours for initial 24 hours of admission, will return to Q 6 as of 9:00 p.m. on 11/08/2019. 6. Morbid obesity, BMI 35.6, acute on chronic, present on admission -contributing to patients risk for pneumonia and respiratory failure. 7. PTSD/depression, chronic, not present on admission -patient verbalized no depression at this time or suicidal ideation -Continue patient's fluoxetine a total of 30 mg q.day. 8. history of rheumatoid arthritis - please see scanned note from rheumatology, has had previous few doses of Humira with improvement. Continue hydroxychloroquine and sulfasalazine. Code status: Full Surrogate/plan of care: Spouse Paty BAUGH PCR: Negative VTE prophylaxis: Lovenox 40 mg q.day and SCD Quality VTE Deep Vein Thrombosis/Pulmonary Embolism Present on Admission: No
== END 2020-11-12 11:53 | disposition home or self-care (01) | DRG 193 ==
LOC: ED 19:58 → AC 20:09
PROVIDERS: Emergency Medicine; Internal Medicine; Admitting Provider Nurse Practitioner Family; Emergency Provider Emergency Medicine; Family Provider Family Medicine; PCP Family Medicine; Referring Provider Emergency Medicine; Visit Provider Nurse Practitioner Family
DX: J15.9 Unspecified bacterial pneumonia (principal); J96.01 Acute respiratory failure with hypoxia; J44.1 Chronic obstructive pulmonary disease with (acute) exacerbation; J44.0 Chronic obstructive pulmonary disease with (acute) lower respiratory infection; E66.01 Morbid (severe) obesity due to excess calories; Z68.35 Body mass index [BMI] 35.0-35.9, adult; G89.4 Chronic pain syndrome; Z79.891 Long term (current) use of opiate analgesic; I25.10 Atherosclerotic heart disease of native coronary artery without angina pectoris; I10 Essential (primary) hypertension; F32.9 Major depressive disorder, single episode, unspecified; F43.10 Post-traumatic stress disorder, unspecified; M06.9 Rheumatoid arthritis, unspecified; F10.11 Alcohol abuse, in remission; K21.9 Gastro-esophageal reflux disease without esophagitis; Z85.46 Personal history of malignant neoplasm of prostate; Z87.891 Personal history of nicotine dependence; Z79.52 Long term (current) use of systemic steroids
CPT/HCPCS: 36415; 36600; 51701; 71045; 71275; 80048; 80053; 81001; 81003; 82533; 82550; 82805; 83036; 83605; 83690; 83735; 83880; 84100; 84145; 84484; 84520; 85025; 85379; 85610; 85730; 86140; 87040; 87070; 87205; 87633; 87635; 93005; 94640; 94760; 94762; 96361; 96365; 96367; 96368; 96375; 96376; 97116; 97161; 97535; 99284; C9803; A9270; J0692; J1170; J1650; J1885; J2765; J2930; J3480; J7613

== ENCOUNTER 2021-03-14 06:16 | Day surgery (SDC) | payer MEDICARE, OTHER, SELFPAY ==
[2020-11-21 14:02] VITALS: BMI 33.5
[2021-03-09 11:38] VITALS: BMI 32.8
[2021-03-14 07:05] VITALS: BMI 32.8
[2021-03-14] MEDS: LACTATED RINGERS 1,000 ML 100 ML IV (07:08)
[2021-03-14 07:09] LABS: COVID19 -Nasal RAPID Negative (Negative)
[2021-03-14 07:27] VITALS: BP 176/82; PULSE 80; RESP 18; TEMP 36.9; O2SAT 96
--- NOTE | 2021-03-14 07:33 | PM.PREOP ---
Pre-operative Note Interval Note History & Physical reviewed/Exam performed by Physician: Yes Changes to H&P: No
[2021-03-14] MEDS: CEFAZOLIN 1 GM VIAL 2 GM IV (07:57)
--- NOTE | 2021-03-14 08:02 | SUR.OPER ---
Supine on padded OR bed, head on pillow, arms secured on padded arm boards at <90 degrees abduction, legs uncrossed, safety belt at thigh, tape over blanket over lower legs, gel pad under heels, pillow under knees.
[2021-03-14] MEDS: BUPIVACAINE 0.25% (PF) VIAL 30 ML INJ (08:05)
[2021-03-14 08:57] VITALS: BP 119/76; PULSE 72; RESP 12; TEMP 36.9; O2SAT 94
[2021-03-14] MEDS: fentaNYL 100 MCG/2 ML INJ IV ×4 (09:00→09:25)
[2021-03-14 09:08] VITALS: BP 138/74; PULSE 74; RESP 12; O2SAT 96
[2021-03-14] MEDS: LACTATED RINGERS 1,000 ML 42 ML IV (09:09)
--- NOTE | 2021-03-14 09:10 | P.OP_ITS ---
Operative Date/Time/Diagnoses Date of procedure: 03/14/21 Time of procedure: 09:10 Pre-op diagnosis: Left inguinal hernia Post-op diagnosis: same Procedure & Clinicians Procedure: Open left inguinal hernia repair with mesh Same procedure as scheduled: Yes Indications: Left inguinal hernia Surgeon: Matteo Mark Anesthesia Type: General Operative Notes Findings: Indirect inguinal hernia, Specimen(s): none sent Estimated Blood Loss (mL): 20 Procedure in detail: The patient was placed supine on the table and bilateral lower extremity compression devices were applied. Anesthesia was induced they were intubated with an LMA and received 2g of Ancef. A time-out was performed. They were prepped and draped in sterile fashion. The left external inguinal ring and the anterior superior iliac crest were identified and marked. 1 finger breath above the inguinal ligament the skin was infiltrated with 0.25% bupivacaine. The skin incision was made here and the subcutaneous tissues were divided with electrocautery exposing the external oblique aponeurosis which was then opened along the direction of its fibers. Using blunt dissection the internal oblique aporneurosis was from the external oblique upper leaflet to identify the iliohypogastric nerve. Using a kittner the cord was carefully dissected away from the inguinal canal adjacent to the pubic tubercle. The cord including the vas deferens, testicular bloody supply, ilioguinal and genital nerve were encircled with a Jagdish drain. No direct floor defect was identified. The cremasteric fibers surrounding the cord were divided using electrocautery adjacent to the internal ring.. The vas deferens and the testicular vessels were preserved and protected. There was a small indirect hernia on the anterior medial aspect of the cord which was skeletonized away from the vas deferens and testicular blood supply. The indirect hernia was skeletonized back to the internal ring and reduced spontaneously into the abdomen. The internal ring was rather large and so I placed a plug of mesh within the internal ring was secured in place with Vicryl suture to the internal oblique and the external oblique aponeurosis. I selected a 7x 15 cm lightweight Pro Loop hernia mesh. The inferior medial aspect of the mesh was anchored to insertion of the rectus muscle to the pubic tubercle such that there was approximately 2 cm of tubercle overlap with Ethibond and then was run continuously along the inferior edge of the mesh to the shelving edge of the i nguinal ligament. Interrupted 3 0 Vicryl suture was used to anchor the superior aspect of the mesh to the conjoined tendon in several places. The tails were then reapproximated loosely around the spermatic cord. The tails of the mesh were then tucked under the external oblique aponeurosis. The repair was checked for hemostasis. The wound was irrigated with sterile saline. The external oblique aponeurosis was reapproximated in a running fashion using 3 0 Vicryl. The subcutaneous tissues were reapproximated with 3 0 Vicryl skin closed with 4 0 Monocryl followed by the application of Dermabond. At the end of the operation I ensured that both testicles were within the scrotum. The sponge instrument count at the end operation was correct. The patient emerged from anesthesia was extubated and transferred to the postoperative care unit in stable condition. A total of 30 ml of of 0.25% bupivicaine was used to infiltrate the skin. Complications: none Post-operative Condition: stable Disposition: same day surgery
[2021-03-14 09:17] VITALS: BP 141/84; PULSE 72; RESP 13; O2SAT 97
[2021-03-14 09:23] VITALS: BP 153/84; PULSE 84; RESP 17; O2SAT 95
[2021-03-14] MEDS: OXYCODONE IR 5 MG TABLET PO (09:32)
[2021-03-14 09:36] VITALS: BP 135/84; PULSE 74; RESP 19; TEMP 37; O2SAT 96
== END 2021-03-14 10:04 | disposition home or self-care (01) ==
PROVIDERS: PCP Family Medicine; Referring Provider Surgery; Visit Provider Surgery
PROC: (CPT 49505; principal; 2021-03-14 07:45)
DX: K40.30 Unilateral inguinal hernia, with obstruction, without gangrene, not specified as recurrent (principal); I10 Essential (primary) hypertension; M06.9 Rheumatoid arthritis, unspecified; J44.9 Chronic obstructive pulmonary disease, unspecified; Z20.822 Contact with and (suspected) exposure to COVID-19
CPT/HCPCS: 49505; 87635; C1781; J0690; J1100; J1170; J2704; J3010

== ENCOUNTER 2021-07-06 14:00 | Emergency (ER) | payer MEDICARE, OTHER, SELFPAY ==
[2021-04-21 08:49] VITALS: BMI 33.5
[2021-07-06] VITALS (10 sets, daily range): BP systolic 115–131; BP diastolic 56–81; PULSE 73–93; RESP 12–31; TEMP 37.2; O2SAT 92–96; BMI 31.0
--- NOTE | 2021-07-06 14:26 | DI.RAD.S_ITS ---
PROCEDURE: XR CHEST 2V INDICATIONS: shortness of breath TECHNIQUE: 2 views of the chest were acquired. COMPARISON: [facility], CR, XR LUMBAR SPINE 2 OR 3 VIEWS, 01/30/2021, 9:17. [facility], CT, CT ANGIO CHEST PE PROTOCOL, 11/10/2020, 7:28. [facility], CR, XR CHEST 1V, 11/09/2020, 18:19. FINDINGS: Surgical changes and devices: None. Lungs and pleura: Lungs are clear. No pleural effusions or pneumothorax. Small calcified granulomas noted at both lung bases Mediastinum: Mediastinal contours are normal. Heart size is normal. Bones and chest wall: No suspicious bony abnormalities. Soft tissues appear unremarkable. Right shoulder hemiarthroplasty noted. IMPRESSION: No acute cardiopulmonary findings Approved by: Mario Henry M.D. on 07/06/2021 at 14:36
[2021-07-06 14:49] LABS: COVID19 -Nasal RAPID Negative (Negative)
[2021-07-06 15:08] LABS: Add Manual Diff / Slide Review NO; Basophils Absolute Auto 100 /uL (0-100); Basophils Percent Auto 0.5 % (0-2); Eosinophils Absolute Auto 200 /uL (0-450); Eosinophils Percent Auto 1.8 % (2-4); Hematocrit 32.2 % (41-53); Hemoglobin 10.8 g/dL (13.5-17.5); Lymphocytes Absolute Auto 800 /uL (1100-4500); Lymphocytes Percent Auto 7.1 % (25-40); Mean Corpuscular HGB Conc 33.6 % (30-36); Mean Corpuscular Hemoglobin 27.1 PG (26-34); Mean Corpuscular Volume 80.6 fL (80-100); Monocytes Absolute Auto 900 /uL (0-900); Monocytes Percent Auto 8.5 % (3-14); Neutrophils Absolute Auto 9200 /uL (1500-7000); Neutrophils Percent Auto 82.1 % (50-75); Platelet Count 194 X10^3/uL (150-400); Red Blood Cell Count 3.99 X10^6/uL (4.5-5.9); Red Cell Distribution Width 17.5 % (11.6-14.8); White Blood Cell Count 11.2 X10^3/uL (4.5-11.0)
[2021-07-06 15:20] LABS: Lactate (Lactic Acid) 0.9 mmol/L (0.7-2.1)
[2021-07-06 15:21] LABS: Alanine Aminotransferase 16 IU/L (<50); Albumin Globulin Ratio 1.4 (1.0-2.8); Alkaline Phosphatase 60 U/L (38-126); Aspartate Aminotransferase 24 IU/L (17-59); BUN Creatinine Ratio 18.5 (6-22); Bilirubin Total 0.6 mg/dL (0.2-1.3); Blood Urea Nitrogen 12 mg/dL (9-20); Calcium 8.6 mg/dL (8.4-10.2); Carbon Dioxide 33 mmol/L (22-32); Chloride 95 mmol/L (98-107); Estimated Glomerular Filt Rate > 60.0 mL/min (>60); Globulin 2.8 g/dL (1.7-4.1); Glucose 106 mg/dL (80-110); HEMOLYSIS < 15 (0-50); Potassium 3.3 mmol/L (3.4-5.1); Sodium 130 mmol/L (137-145); Total Protein 6.8 g/dL (6.3-8.2)
--- NOTE | 2021-07-06 15:32 | ED.GENADULT ---
HPI - General Adult General Chief complaint: Shortness of Breath/Dyspnea Stated complaint: Thinks Pneumonia Time Seen by Provider: 07/06/21 14:45 Source: patient Mode of arrival: Ambulatory Limitations: no limitations History of Present Illness HPI narrative: Gentleman with history of hypertension, asthma/chronic bronchitis, anxiety/PTSD, rheumatoid arthritis, depression, chronic pain and chronic headache presents with 3-4 days of increasing respiratory complaints. He notes that his nose is more plugged, he is wheezing, with his home nebulizer he is having increased brown/yellow/gold sputum. He reports that he feels spaced out? and notes that he is having a rheumatoid arthritis flare with increasing pain and synovitis in both hands. Most recent hospitalization was in October with a community-acquired middle lobe pneumonia. He describes low-grade sweats but has not measured an actual temperature, no vomiting or diarrhea, no abdominal pain. Related Data Home Medications Medication Instructions Recorded Confirmed aspirin 81 mg tablet,delayed 81 mg PO DAILY 07/02/19 03/29/21 release Disabled Parking Permit 1 % SEEINSTR 11/08/20 03/29/21 albuterol sulfate 2.5 mg INHALATION PRN PRN 11/08/20 03/29/21 hydroxychloroquine 200 mg tablet 200 mg PO DAILY 11/10/20 03/29/21 sulfasalazine 500 mg tablet 1,000 mg PO BID 11/10/20 03/29/21 fluoxetine 10 mg capsule 30 mg PO DAILY 03/14/21 03/29/21 prednisone 5 mg tablet 10 mg PO DAILY 03/14/21 03/29/21 Previous Rx's Medication Instructions Recorded adjuvant AS01B (PF)vial 1 of 2 0.5 ml IM ONCE #0.5 ml 09/29/18 (Shingrix Adjuvant Component-PF) albuterol sulfate 2.5 mg CONTINUOUS NEBULIZATION 11/29/20 Q6HP PRN #360 ml albuterol sulfate 90 mcg/actuation 1 inh INHALATION Q4-6H PRN #18 gram 01/02/21 aerosol inhaler omeprazole 40 mg capsule,delayed 40 mg PO Q DAY #90 cap 01/13/21 release amlodipine 10 mg tablet 10 mg PO QDAY IN PM #90 tab 02/21/21 hydrochlorothiazide 12.5 mg capsule 12.5 mg PO DAILY #90 cap 02/21/21 methocarbamol 500 mg tablet 500 mg PO TID PRN #90 tab 02/27/21 ibuprofen 200 mg tablet 400 mg PO Q6H #60 tab 03/14/21 docusate sodium 100 mg capsule 100 mg PO BID #30 cap 03/15/21 (Colace) metoprolol succinate 100 mg See Rx Instructions .ROUTE 04/03/21 tablet,extended release 24 hr .COMPLEX #90 tablet fluticasone propionate 50 1 spray INTRANASAL BID #1 bot 04/07/21 mcg/actuation nasal spray,suspension losartan 100 mg tablet See Rx Instructions .ROUTE 05/17/21 .COMPLEX #90 tab valacyclovir 1 gram tablet 1,000 mg PO Q8H #20 tab 06/08/21 oxycodone 10 mg tablet 10 mg PO Q6-8H PRN #120 tab 07/03/21 azithromycin 250 mg tablet See Rx Instructions .ROUTE 07/06/21 .COMPLEX #6 tab prednisone 20 mg tablet 20 mg PO DAILY #7 tab 07/06/21 Allergies Allergy/AdvReac Type Severity Reaction Status Date / Time cyclobenzaprine Allergy Verified 03/29/21 09:02 [From Flexeril] acetaminophen [ACETAMINOPHEN] AdvReac Unknown Can't take Verified 03/29/21 09:02 r/t Hep C Review of Systems Review of Systems Narrative: Remainder of complete review of systems is otherwise unremarkable except for that included in the HPI. Patient History Medical History Acute exacerbation of chronic bronchitis Anxiety Arthritis (Unknown) Chronic ankle pain, bilateral Chronic pain syndrome (Unknown) Depression (Unknown) Fibromyalgia Foraminal stenosis of lumbar region Hepatitis C (Unknown) Hypertension (Unknown) Impotence (Unknown) Kidney stones (Unknown) Migraines (Unknown) Peripheral neuropathy Pneumonia (~2018) Prostate cancer (Unknown) PTSD (post-traumatic stress disorder) (Unknown) Restless leg syndrome (Unknown) Rheumatoid arthritis Sinus drainage Skin cancer (Unknown) Surgical History History of back surgery History of carpal tunnel repair History of lumbar fusion History of tonsillectomy Hx of foot surgery Hx of joint replacement Hx of laminectomy (10/2012) Status post cholecystectomy Status post knee surgery Family History Father Heart disease Mother No problems noted. Social History marital status: household members: spouse occupational status: previously employed Smoking Status: Former smoker Tobacco: How many years used: 20 quit status: has quit before alcohol intake: former substance use type: former substance user and marijuana Smoking Status: Former smoker tobacco type: cigarettes Substance Use Type: does not use and former substance user Exam Narrative Exam Narrative: General: Chronically ill-appearing with mild respiratory distress. Able to give a complete and coherent history. HEENT: Moist mucous membranes, normal sclera with reactive pupils, Neck: No JVD, supple Respiratory: Audible wheezing when talking however Lungs are remarkably clear to auscultation with only minor wheezing in upper lung brown, no rales no rhonchi. Full and symmetrical air movement Cardiac: Regular rate and rhythm no murmurs no bruits Abdomen: Soft, nontender, good bowel tones, no flank pain Skin: Warm and dry, no rashes Neurologic: Globally weak but Grossly neurologically intact with no obvious asymmetries or abnormalities Extremities: No trauma, well perfused Psych: Cooperative, appropriate insight and affect Initial Vital Signs Initial Vital Signs: Vital Signs Temperature 99 F 07/06/21 14:17 Pulse Rate 77 07/06/21 14:17 Respiratory Rate 22 07/06/21 14:17 Blood Pressure 129/63 07/06/21 14:17 Pulse Oximetry 93 07/06/21 14:17 Course Orders Ordered: Discontinued Medications Albuterol (Albuterol 2.5 Mg/3 Ml Neb (Adult)) 2.5 mg INH NOW ONE Stop: 07/06/21 17:02 Last Admin: 07/06/21 17:17 Dose: 2.5 mg Documented by: WILLAM Hydrocortisone (Hydrocortisone 100 Mg/2 Ml Vial) 100 mg IV NOW ONE Stop: 07/06/21 16:31 Last Admin: 07/06/21 17:06 Dose: 100 mg Documented by: KAVON Sodium Chloride (Normal Saline 0.9%) 1,000 mls @ 1,000 mls/hr IV BOLUS ONE Stop: 07/06/21 17:29 Last Infusion: 07/06/21 19:18 Dose: 0 mls/hr Documented by: Admin: 07/06/21 17:10 Dose: 1,000 mls/hr Documented by: KAVON Ceftriaxone Sodium 2,000 mg/ (Sodium Chloride) 100 mls @ 200 mls/hr IV NOW ONE Stop: 07/06/21 16:33 Last Infusion: 07/06/21 17:45 Dose: 0 mls/hr Documented by: Admin: 07/06/21 17:15 Dose: 200 mls/hr Documented by: KAVON Azithromycin 500 mg/ Dextrose 250 mls @ 250 mls/hr IV NOW ONE Stop: 07/06/21 16:33 Last Infusion: 07/06/21 19:09 Dose: 0 mls/hr Documented by: Admin: 07/06/21 17:50 Dose: 250 mls/hr Documented by: SHILPA Ketorolac Tromethamine (Ketorolac 30 Mg/Ml Vial) 15 mg IV NOW ONE Stop: 07/06/21 16:31 Last Admin: 07/06/21 17:08 Dose: 15 mg Documented by: KAVON Methylprednisolone (Methylprednisolone 125 Mg/2 Ml Vial) 60 mg IV NOW ONE Stop: 07/06/21 16:31 Last Admin: 07/06/21 17:06 Dose: 60 mg Documented by: KAVON Oxycodone HCl (Oxycodone Ir 5 Mg Tablet) 10 mg PO NOW ONE Stop: 07/06/21 17:07 Last Admin: 07/06/21 17:12 Dose: 10 mg Documented by: KAVON Vital Signs Vital signs: Vital Signs - 8 hr 07/06/21 14:17 07/06/21 16:04 07/06/21 16:30 Temperature 99 F Pulse Rate 77 75 73 Respiratory Rate 22 22 17 Blood Pressure 129/63 128/61 116/58 L Pulse Oximetry 93 96 93 07/06/21 17:00 07/06/21 17:17 07/06/21 17:59 Temperature Pulse Rate 74 Respiratory Rate 25 H Blood Pressure 119/57 L Pulse Oximetry 95 94 96 Medical Decision Making Lab Data Result diagrams: 07/06/21 14:59 07/06/21 14:59 Labs: Lab Results 07/06/21 07/06/21 07/06/21 Range/Units 14:20 14:59 14:59 WBC 11.2 H (4.5-11.0) X10^3/uL RBC 3.99 L (4.5-5.9) X10^6/uL Hgb 10.8 L (13.5-17.5) g/dL Hct 32.2 L (41-53) % MCV 80.6 (80-100) fL MCH 27.1 (26-34) PG MCHC 33.6 (30-36) % RDW 17.5 H (11.6-14.8) % Plt Count 194 (150-400) X10^3/uL Neut % (Auto) 82.1 H (50-75) % Lymph % (Auto) 7.1 L (25-40) % [place] % (Auto) 8.5 (3-14) % Eos % (Auto) 1.8 L (2-4) % Baso % (Auto) 0.5 (0-2) % Neut # (Auto) 9200 H (4065-7874) /uL Lymph # (Auto) 800 L (6111-0744) /uL [place] # (Auto) 900 (0-900) /uL Eos # (Auto) 200 (0-450) /uL Baso # (Auto) 100 (0-100) /uL Sodium 130 L (137-145) mmol/L Potassium 3.3 L (3.4-5.1) mmol/L Chloride 95 L (98-107) mmol/L Carbon Dioxide 33 H (22-32) mmol/L BUN 12 (9-20) mg/dL Creatinine 0.65 L (0.66-1.25) mg/dL Estimated GFR > 60.0 (>60) mL/min BUN/Creatinine Ratio 18.5 (6-22) Glucose 106 (80-110) mg/dL Lactate (0.7-2.1) mmol/L Calcium 8.6 (8.4-10.2) mg/dL Total Bilirubin 0.6 (0.2-1.3) mg/dL AST 24 (17-59) IU/L ALT 16 (<50) IU/L Alkaline Phosphatase 60 (38-126) U/L Total Protein 6.8 (6.3-8.2) g/dL Albumin 4.0 (3.5-5.0) g/dL Globulin 2.8 (1.7-4.1) g/dL Albumin/Globulin Ratio 1.4 (1.0-2.8) Chlamy pneumoniae PCR (Not Detect) Adenovirus (PCR) (Not Detect) B. pertussis DNA (PCR) (Not Detecte) B.parapertussis DNA PCR (Not Detecte) Coronavirus OC43 (PCR) (Not Detect) Coronavirus HKU1 (PCR) (Not Detect) Coronavirus 229E (PCR) (Not Detect) SARS-CoV-2 (PCR) Negative (Negative) Coronavirus NL63 (PCR) (Not Detect) Human Metapneumovir PCR (Not Detect) Influenza Type A (PCR) (Not Detect) Influenza Type B (PCR) (Not Detect) M. pneumoniae (PCR) (Not Detect) Parainfluenza 1 (PCR) (Not Detect) Parainfluenza 2 (PCR) (Not Detect) Parainfluenza 3 (PCR) (Not Detect) Parainfluenza 4 (PCR) (Not Detect) RSV (PCR) (Not Detect) Entero/Rhino (PCR) (Not Detect) 07/06/21 07/06/21 Range/Units 14:59 17:15 WBC (4.5-11.0) X10^3/uL RBC (4.5-5.9) X10^6/uL Hgb (13.5-17.5) g/dL Hct (41-53) % MCV (80-100) fL MCH (26-34) PG MCHC (30-36) % RDW (11.6-14.8) % Plt Count (150-400) X10^3/uL Neut % (Auto) (50-75) % Lymph % (Auto) (25-40) % [place] % (Auto) (3-14) % Eos % (Auto) (2-4) % Baso % (Auto) (0-2) % Neut # (Auto) (4533-6075) /uL Lymph # (Auto) (2892-0704) /uL [place] # (Auto) (0-900) /uL Eos # (Auto) (0-450) /uL Baso # (Auto) (0-100) /uL Sodium (137-145) mmol/L Potassium (3.4-5.1) mmol/L Chloride (98-107) mmol/L Carbon Dioxide (22-32) mmol/L BUN (9-20) mg/dL Creatinine (0.66-1.25) mg/dL Estimated GFR (>60) mL/min BUN/Creatinine Ratio (6-22) Glucose (80-110) mg/dL Lactate 0.9 (0.7-2.1) mmol/L Calcium (8.4-10.2) mg/dL Total Bilirubin (0.2-1.3) mg/dL AST (17-59) IU/L ALT (<50) IU/L Alkaline Phosphatase (38-126) U/L Total Protein (6.3-8.2) g/dL Albumin (3.5-5.0) g/dL Globulin (1.7-4.1) g/dL Albumin/Globulin Ratio (1.0-2.8) Chlamy pneumoniae PCR Not detected (Not Detect) Adenovirus (PCR) Not detected (Not Detect) B. pertussis DNA (PCR) Not detected (Not Detecte) B.parapertussis DNA PCR Not detected (Not Detecte) Coronavirus OC43 (PCR) Not detected (Not Detect) Coronavirus HKU1 (PCR) Not detected (Not Detect) Coronavirus 229E (PCR) Not detected (Not Detect) SARS-CoV-2 (PCR) Not detected (Negative) Coronavirus NL63 (PCR) Not detected (Not Detect) Human Metapneumovir PCR Not detected (Not Detect) Influenza Type A (PCR) Not detected (Not Detect) Influenza Type B (PCR) Not detected (Not Detect) M. pneumoniae (PCR) Not detected (Not Detect) Parainfluenza 1 (PCR) Not detected (Not Detect) Parainfluenza 2 (PCR) Not detected (Not Detect) Parainfluenza 3 (PCR) Not detected (Not Detect) Parainfluenza 4 (PCR) Not detected (Not Detect) RSV (PCR) Not detected (Not Detect) Entero/Rhino (PCR) Not detected (Not Detect) Imaging Data Chest x-ray: Radiologist's Impression: FINDINGS: Surgical changes and devices: None. Lungs and pleura: Lungs are clear. No pleural effusions or pneumothorax. Small calcified granulomas noted at both lung bases Mediastinum: Mediastinal contours are normal. Heart size is normal. Bones and chest wall: No suspicious bony abnormalities. Soft tissues appear unremarkable. Right shoulder hemiarthroplasty noted. IMPRESSION: No acute cardiopulmonary findings Approved by: Mario Henry M.D. on 07/06/2021 at 14:36 ECG Data Interpretation: Sinus rhythm at a rate of 73 No acute ischemic changes Normal axis, normal intervals MDM Narrative Medical decision making narrative: 75-year-old gentleman presents with significant breathing complaints however his clinical exam is relatively benign. Room air saturations are at 96% and he is hemodynamically stable with blood pressure 128/61 and pulse of 75 Chest x-ray is relatively unremarkable without evidence of consolidated bacterial pneumonia or congestive heart failure. White blood cell count is slightly elevated 11, he describes significant change to sputum over the last 2 days concurrent with general malaise more consistent with a bacterial pneumonia developing. Clinical exam does not suggest severe consolidation. Lactic acid is not elevated to suggest sepsis. Respiratory panel is currently pending. With initial complaints, possibility of community-acquired pneumonia was entertained and ceftriaxone and azithromycin were started. He is on 10 mg of chronic prednisone for his rheumatoid arthritis and is given 100 mg of hydrocortisone as a stress dose. He is also given 60 mg of Solu-Medrol for asthma/COPD support. He had done a nebulizer at home and had not felt that it had made much of a change and with no significant wheezing in most of his lung brown additional nebulizers held at this time. He has no acute EKG changes nor elevated troponin to suggest acute coronary syndrome. 6pm re-evaluation. Patient was comfortable laughing about something on his phone with an acute onset of a chest discomfort, nausea became pale diaphoretic. He also had a brief run of sinus tachycardia just prior to this episode. He was not doing anything more active, simply sitting in bed. Findings and labs are reviewed with patient. At this point he is requesting home discharge and I think that that is appropriate. The respiratory panel has returned negative. With it sputum that he is producing I do think that he is developing a outpatient pneumonia and will continue him on an additional 5 days of azithromycin. I also think that there is a mild asthma exacerbation and steroid burst will also be appropriate for the next 7 days. He notes that he has a refill for 5 mg of prednisone for his chronic rheumatoid arthritis waiting for him hit [facility]. Asked him to pick that up as well but not started until after completing the 7 days of 20 mg. If he is worse he will need to return and that is clearly reviewed with both him and his . Discharge Plan Departure Patient Disposition: Home Clinical Impression: Community acquired pneumonia Qualifiers: Laterality: unspecified laterality Qualified Code(s): J18.9 - Pneumonia, unspecified organism Asthma exacerbation Qualifiers: Asthma severity: moderate Asthma persistence: persistent Qualified Code(s): J45.41 - Moderate persistent asthma with (acute) exacerbation Activity Restrictions/Additional Instructions: Thank you for coming in today I think that you are developing a pneumonia and I simply am not yet seeing it on the chest x-ray. You have been given antibiotics in the emergency department and I would like you to finish 5 additional days of azithromycin. I also think that you will benefit from 7 days of increased steroids at 20 mg a day. After you have completed this dose for your lungs, please start the 5 mg of prednisone daily from your forest scientist. Prescriptions were electronically transmitted to [facility] on [address]. With your workup today I did not see any evidence for collapsed lung, any respiratory viruses including COVID, no congestive heart failure and no evidence of heart attack or alternate explanation for the breathing difficulties. If you find that you are worse, please return. It is always good to see you again Prescriptions: New azithromycin 250 mg tablet See Rx Instructions .ROUTE .COMPLEX Qty: 6 RF: 0 prednisone 20 mg tablet 20 mg PO DAILY Qty: 7 RF: 0 No Action adjuvant AS01B (PF)vial 1 of 2 [Shingrix Adjuvant Component-PF] suspension 0.5 ml IM ONCE Qty: 0.5 RF: 0 albuterol sulfate 2.5 mg /3 mL (0.083 %) solution for nebulization 2.5 mg Continuous Nebulization Q6HP PRN (Reason: shortness of breath or wheezing) Qty: 360 RF: 2 albuterol sulfate 90 mcg/actuation HFA aerosol inhaler 1 inh INHALATION Q4-6H PRN (Reason: shortness of breath) Qty: 18 RF: 4 omeprazole 40 mg capsule,delayed release(DR/EC) 40 mg PO Q DAY Qty: 90 RF: 1 hydrochlorothiazide 12.5 mg capsule 12.5 mg PO DAILY Qty: 90 RF: 1 amlodipine 10 mg tablet 10 mg PO QDAY IN PM Qty: 90 RF: 1 methocarbamol 500 mg tablet 500 mg PO TID PRN (Reason: Back spasm) Qty: 90 RF: 1 docusate sodium [Colace] 100 mg capsule 100 mg PO BID Qty: 30 RF: 0 metoprolol succinate 100 mg tablet extended release 24 hr See Rx Instructions .ROUTE .COMPLEX Qty: 90 RF: 2 fluticasone propionate 50 mcg/actuation spray,suspension 1 spray Intranasal BID Qty: 1 RF: 3 losartan 100 mg tablet See Rx Instructions .ROUTE .COMPLEX Qty: 90 RF: 0 valacyclovir 1 gram tablet 1,000 mg PO Q8H Qty: 20 RF: 2 oxycodone 10 mg tablet 10 mg PO Q6-8H PRN (Reason: chronic pain) Qty: 120 RF: 0 aspirin 81 mg tablet,delayed release (DR/EC) 81 mg PO DAILY RF: 0 Disabled Parking Permit 1 1 % SEEINSTR RF: 0 albuterol sulfate 2.5 mg /3 mL (0.083 %) solution for nebulization 2.5 mg inhalation PRN PRN (Reason: Shortness Of Breath) RF: 0 sulfasalazine 500 mg tablet 1,000 mg PO BID RF: 0 hydroxychloroquine 200 mg tablet 200 mg PO DAILY RF: 0 ibuprofen 200 mg tablet 400 mg PO Q6H Qty: 60 RF: 0 fluoxetine 10 mg capsule 30 mg PO DAILY RF: 0 prednisone 5 mg tablet 10 mg PO DAILY RF: 0 Referrals: Edilberto Snell DO [Primary Care Provider] -
[2021-07-06] MEDS: HYDROCORTISONE 100 MG/2 ML VIAL IV (17:06)
[2021-07-06] MEDS: methylPREDNISolone 125 MG/2 ML VIAL 60 MG IV (17:06)
[2021-07-06] MEDS: KETOROLAC 30 MG/ML VIAL 15 MG IV (17:08)
[2021-07-06] MEDS: SODIUM CHLORIDE 0.9% 1,000 ML 1000 ML IV (17:10)
[2021-07-06] MEDS: OXYCODONE IR 5 MG TABLET 10 MG PO (17:12)
[2021-07-06] MEDS: cefTRIAXone 2,000 MG in SODIUM CHLORIDE 0.9% 100 ML 200 ML IV (17:15)
[2021-07-06] MEDS: ALBUTEROL 2.5 MG/3 ML NEB (ADULT) INH (17:17)
[2021-07-06] MEDS: AZITHROMYCIN 500 MG in DEXTROSE 5% IN WATER 250 ML IV (17:50)
--- NOTE | 2021-07-06 17:54 | PC.NURSE ---
Notified Dr Jameson that patient went from laughing at his phone to reporting I don't feel good. You're all blurry and then dropped his head to his chest and closed his eyes. Is arousable and alert and oriented. No new orders.
[2021-07-06 18:10] LABS: Adenovirus Not Detected (Not Detect); B. parapertussis Not Detected (Not Detecte); Bordetella pertussis Not Detected (Not Detecte); Chlamydophila pneumoniae Not Detected (Not Detect); Coronavirus 229E Not Detected (Not Detect); Coronavirus HKU1 Not Detected (Not Detect); Coronavirus NL 63 Not Detected (Not Detect); Coronavirus OC43 Not Detected (Not Detect); Human Metapneumovirus Not Detected (Not Detect); Human Rhinovirus/Enterovirus Not Detected (Not Detect); Influenza A Not Detected (Not Detect); Influenza B Not Detected (Not Detect); Mycoplasma pneumoniae Not Detected (Not Detect); Parainfluenza Virus 1 Not Detected (Not Detect); Parainfluenza Virus 2 Not Detected (Not Detect); Parainfluenza Virus 3 Not Detected (Not Detect); Parainfluenza Virus 4 Not Detected (Not Detect); Respiratory Syncytial Virus Not Detected (Not Detect); SARS- CoV-2 Not Detected (Not Detecte)
--- NOTE | 2021-07-06 18:17 | PC.NURSE ---
Pt ok to eat per Dr Jameson. Pt given sandwich, pudding, applesauce and water.
== END 2021-07-06 19:18 | disposition home or self-care (01) ==
PROVIDERS: Emergency Provider Emergency Medicine; PCP Family Medicine
DX: J18.9 Pneumonia, unspecified organism (principal); J45.41 Moderate persistent asthma with (acute) exacerbation; R07.9 Chest pain, unspecified; R00.0 Tachycardia, unspecified; R11.0 Nausea; Z20.822 Contact with and (suspected) exposure to COVID-19
CPT/HCPCS: 36415; 71046; 80053; 83605; 85025; 87040; 87633; 87635; 93005; 93010; 94150; 94640; 96361; 96365; 96368; 96375; 96376; 99284; C9803; J0696; J1720; J1885; J2930; J7613

== ENCOUNTER → 2021-07-18 11:23 | Outpatient (CLI) | payer MEDICARE, OTHER, SELFPAY ==
[2021-04-21 08:49] VITALS: BMI 33.5
[2021-07-18 12:14] LABS: Add Manual Diff / Slide Review NO; Basophils Absolute Auto 100 /uL (0-100); Basophils Percent Auto 0.6 % (0-2); Eosinophils Absolute Auto 400 /uL (0-450); Eosinophils Percent Auto 3.8 % (2-4); Lymphocytes Absolute Auto 1000 /uL (1100-4500); Lymphocytes Percent Auto 11.2 % (25-40); Mean Corpuscular HGB Conc 33.3 % (30-36); Mean Corpuscular Hemoglobin 27.3 PG (26-34); Mean Corpuscular Volume 82.1 fL (80-100); Monocytes Absolute Auto 1000 /uL (0-900); Monocytes Percent Auto 11.4 % (3-14); Neutrophils Absolute Auto 6700 /uL (1500-7000); Platelet Count 201 X10^3/uL (150-400); Red Blood Cell Count 4.39 X10^6/uL (4.5-5.9); Red Cell Distribution Width 16.9 % (11.6-14.8); White Blood Cell Count 9.2 X10^3/uL (4.5-11.0)
[2021-07-18 12:35] LABS: Erythrocyte Sedimentation Rate 15 MM/HR (0-15)
[2021-07-18 12:37] LABS: Alanine Aminotransferase 17 IU/L (<50); Albumin 4.3 g/dL (3.5-5.0); Albumin Globulin Ratio 1.5 (1.0-2.8); Alkaline Phosphatase 69 U/L (38-126); Aspartate Aminotransferase 24 IU/L (17-59); BUN Creatinine Ratio 23.2 (6-22); Bilirubin Total 0.3 mg/dL (0.2-1.3); Blood Urea Nitrogen 16 mg/dL (9-20); C-Reactive Protein Quant 0.9 mg/dL (<1.0); Calcium 8.9 mg/dL (8.4-10.2); Carbon Dioxide 30 mmol/L (22-32); Chloride 100 mmol/L (98-107); Estimated Glomerular Filt Rate > 60.0 mL/min (>60); Globulin 2.8 g/dL (1.7-4.1); Glucose 107 mg/dL (80-110); HEMOLYSIS < 15 (0-50); Potassium 3.6 mmol/L (3.4-5.1); Sodium 139 mmol/L (137-145); Total Protein 7.1 g/dL (6.3-8.2)
== END ==
PROVIDERS: PCP Family Medicine; Referring Provider Internal Medicine Rheumatology; Visit Provider Internal Medicine Rheumatology
DX: M05.79 Rheumatoid arthritis with rheumatoid factor of multiple sites without organ or systems involvement (principal)
CPT/HCPCS: 36415; 80053; 83520; 85025; 85651; 86140

== ENCOUNTER → 2022-02-17 10:51 | Outpatient (CLI) | payer MEDICARE, OTHER, SELFPAY ==
[2021-04-21 08:49] VITALS: BMI 33.5
--- NOTE | 2022-02-17 10:53 | DI.MRI.S_ITS ---
PROCEDURE: MR LUMBAR SPINE WO CON INDICATIONS: Spinal stenosis, lumbar region with neurogenic cla TECHNIQUE: Noncontrast sagittal T1 spin echo and T2 fast echo, coronal T2, sagittal STIR, and T2 fast spin echo through the lumbar spine. COMPARISON:. [facility], MR, MR LUMBAR SPINE WO/W CON, 09/29/2020, 13:09. Lipomatosis [facility], MR, MR LUMBAR SPINE WO CON, 06/04/2019, 12:07. [facility] [place], CR, XR LUMBAR SPINE FLEXION EXTENSION, 05/25/2019, 13:09. FINDINGS: Image quality: Excellent. Alignment and Curvature: 5 lumbar type vertebral bodies are present by plain film. Mild diffuse leftward curvature of the lumbar spine. Bone Marrow: Marrow is of normal overall signal. No acute vertebral body compression fractures. There is moderate reactive signal within the endplates adjacent to the L1-L2 intervertebral disc. Mild reactive signal adjacent to the remaining lumbar and lower thoracic intervertebral discs. L1 and L2 hemangiomata. L3-L4 hemilaminotomy. Spinal Cord: Conus medullaris terminates at the upper L1 level. Visualized cord demonstrates normal signal and size. Paraspinous Soft Tissues: No paravertebral masses. T12-L1: Mild disc height loss. Moderate disc desiccation. Mild diffuse disc bulge with superimposed broad-based left posterolateral protrusion. Mild facet and ligamentum flavum hypertrophy. Mild epidural lipomatosis. Mild canal stenosis. Moderate left and mild right foraminal stenosis. No significant change. L1-L2: Severe disc height loss and desiccation. Moderate diffuse disc bulge/osteophyte. Mild facet and ligamentum flavum hypertrophy. Mild epidural lipomatosis. Moderate canal stenosis. Severe bilateral foraminal stenosis. Bilateral L1 nerve root compression. No significant change. L2-L3: Mild disc height loss. Moderate disc desiccation. Mild diffuse disc bulge with superimposed right paracentral protrusion. Mild facet hypertrophy bilaterally. Mild canal stenosis. Moderate bilateral foraminal stenosis. No significant change. L3-L4: Moderate disc height loss and desiccation. Moderate diffuse disc bulge. Mild facet hypertrophy bilaterally. Resolved canal stenosis. No change in moderate right and severe left foraminal stenosis. Left L3 nerve root compression. L4-L5: Moderate disc desiccation. Mild diffuse disc bulge. Mild bilateral facet hypertrophy. Mild canal stenosis. Moderate left and moderate to severe right foraminal stenosis. Mild right L4 nerve root compression. No significant change. L5-S1: Moderate disc desiccation. Moderate bilateral facet hypertrophy. Mild canal stenosis. Moderate left and mild right foraminal stenosis. No significant change. IMPRESSION: 1. Multilevel degenerative disc and facet disease, as well as ligamentum flavum hypertrophy and epidural lipomatosis. 2. Multilevel canal stenoses, worst at L1-L2, where there is moderate canal stenosis. 3. Multilevel foraminal stenoses, worst at L1-L2, L3-L4, and L4-L5, where there is associated intraforaminal nerve root compression. 4. Postsurgical sequelae. Dictated by: Steve Clement M.D. on 02/19/2022 at 10:13 Approved by: Steve Clement M.D. on 02/19/2022 at 10:23
== END ==
PROVIDERS: PCP Family Medicine; Referring Provider Physician Assistant; Visit Provider Physician Assistant
DX: M48.062 Spinal stenosis, lumbar region with neurogenic claudication (principal); M51.36 Other intervertebral disc degeneration, lumbar region
CPT/HCPCS: 72148

== ENCOUNTER → 2022-03-08 16:15 | Outpatient (CLI) | payer MEDICARE, OTHER, SELFPAY ==
[2021-04-21 08:49] VITALS: BMI 33.5
--- NOTE | 2022-03-08 16:23 | DI.RAD.S_ITS ---
PROCEDURE: XR WRIST RT MIN 3V INDICATIONS: Pain and swelling after fall TECHNIQUE: 4 views of the wrist were acquired. COMPARISON: None. FINDINGS: Bones: Chronic ulnar styloid process fracture. No acute fractures or dislocations. No suspicious bony lesions. 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 There is possible prominence of the scapholunate interval in the scaphoid view. Scaphoid view: Scaphoid is intact. Soft tissues: No suspicious soft tissue calcifications. IMPRESSION: 1. No acute fracture. No acute osseous lesion. If symptoms and/or clinical suspicion for pathology persists, further assessment with repeat radiographs (7-10 days) or advanced imaging (e.g. CT, MRI or bone scan) should be considered. 2. Possible prominence of the scapholunate interval suspicious for ligamentous injury. If there is clinical concern for scapholunate ligament injury a MRI of the wrist should be obtained. Dictated by: Cassi Russ MD, PhD on 03/09/2022 at 11:36 Approved by: Cassi Russ MD, PhD on 03/09/2022 at 11:38
== END ==
PROVIDERS: PCP Family Medicine; Referring Provider Family Medicine; Visit Provider Family Medicine
DX: M18.11 Unilateral primary osteoarthritis of first carpometacarpal joint, right hand (principal); M19.031 Primary osteoarthritis, right wrist; M25.531 Pain in right wrist
CPT/HCPCS: 73110

== ENCOUNTER → 2022-04-04 17:26 | Outpatient (CLI) | payer MEDICARE, OTHER, SELFPAY ==
[2021-04-21 08:49] VITALS: BMI 33.5
--- NOTE | 2022-04-04 17:30 | DI.MRI.S_ITS ---
PROCEDURE: MR WRIST RT WO CON INDICATIONS: Right wrist injury. TECHNIQUE: Noncontrast coronal proton density fast spin echo and T2 fast spin echo with fat saturation; coronal 3-D gradient echo, axial T1 spin echo and T2 fast spin echo with fat saturation, sagittal T1 spin echo through the wrist. COMPARISON: [facility], CR, XR WRIST RT MIN 3V, 03/08/2022, 16:16. FINDINGS: Image quality: Excellent. Bones and cartilage: The carpal bones are normally aligned. There is mild ill-defined T2 signal elevation within the mid and distal scaphoid, as well as the ulnar aspect of the triquetral, consistent with contusion versus degenerative marrow edema. There is an ununited ulnar styloid fracture. Degenerative subchondral cysts within the trapezium, trapezoid, capitate, and lunate are present. No evidence for avascular necrosis. Overlying cartilage surfaces appear normal. Carpal ligaments: The scapholunate ligament demonstrates moderate internal T2 signal elevation. Lunatotriquetral ligament is intact. There is a possible small perforation of the volar aspect of the triangular fibrocartilage complex at the radial insertion. In the absence of intra-articular contrast, the extrinsic carpal ligaments are not well identified. On sagittal images, the pisohamate ligament appears intact. Triangular fibrocartilage complex: The triangular fibrocartilage appears intact. The adjacent meniscal homolog appears normal in the absence of intra-articular contrast. The extensor carpi ulnaris tendon is normal in location and morphology. Tendons and soft tissues: The carpal tunnel structures appear normal, including the median nerve. The ulnar nerve appears normal within Guyon's canal. All six extensor tendon compartments demonstrate normal morphology. There is a small amount of fluid surrounding the 3rd, 4th, and 5th extensor digitorum tendons. No soft tissue ganglion cysts. IMPRESSION: 1. Findings suggestive of scapholunate ligamentous injury as well as triangular fibrocartilage complex tearing. This could be further assessed with MRI arthrography, if clinically indicated. 2. Contusion versus degenerative marrow edema within the scaphoid and triquetral. 3. Osteoarthritis within the carpal joints. 4. Extensor tenosynovitis. 5. Ununited ulnar styloid fracture. Dictated by: Steve Clement M.D. on 04/05/2022 at 13:22 Approved by: Steve Clement M.D. on 04/05/2022 at 13:26
== END ==
PROVIDERS: PCP Family Medicine; Referring Provider Family Medicine; Visit Provider Family Medicine
DX: M25.531 Pain in right wrist (principal); S63.501D Unspecified sprain of right wrist, subsequent encounter; M19.031 Primary osteoarthritis, right wrist; M65.831 Other synovitis and tenosynovitis, right forearm; S52.611K Displaced fracture of right ulna styloid process, subsequent encounter for closed fracture with nonunion
CPT/HCPCS: 73221

== ENCOUNTER → 2022-05-26 15:43 | Outpatient (CLI) | payer MEDICARE, OTHER, SELFPAY ==
[2021-04-21 08:49] VITALS: BMI 33.5
--- NOTE | 2022-05-26 15:46 | DI.MRI.S_ITS ---
PROCEDURE: MR LUMBAR SPINE WO/W CON INDICATIONS: Radiculopathy, lumbar region TECHNIQUE: Noncontrast sagittal T1 spin echo and T2 fast spin echo, sagittal STIR, axial T1 and T2 fast spin echo through the lumbar spine. In cases with scoliosis, additional coronal T2 fast spin echo may be performed. After the administration of contrast, sagittal and axial T1 spin echo with fat saturation through the lumbar spine. COMPARISON: [facility], , MR LUMBAR SPINE WO/W CON, 09/29/2020, 13:09. FINDINGS: Image quality: Limited evaluation secondary to metallic artifact. Alignment and curvature: 5 lumbar type vertebral bodies are present by plain film. There is loss of normal lumbar lordosis. 3 mm of retrolisthesis of T12 on L1. 6 mm retrolisthesis of L1 on L2. 4 mm of retrolisthesis of L3 on L4. Marrow: Marrow is of normal overall signal. No acute vertebral body compression fractures. No suspicious marrow enhancement. There is posterior fusion hardware at T12-L4, new since the prior examination. Spinal cord: Conus medullaris terminates at the mid L1 level. Visualized spinal cord demonstrates normal signal, without suspicious enhancement. Paraspinous soft tissues: No paravertebral masses . Severe edema and a small amount of fluid within the posterior paraspinous soft tissues at the fused levels, compatible with postsurgical sequelae. T12-L1: Posterior fusion hardware Moderate disc height loss and desiccation. Mild diffuse disc bulge with superimposed left posterolateral protrusion/osteophyte. Mild epidural lipomatosis. Moderate canal stenosis, increased from the prior examination. Severe left and moderate right foraminal stenosis, increased from the prior examination. Left T12 nerve root compression. L1-L2: Posterior fusion hardware. Mild diffuse disc bulge with superimposed broad-based left posterolateral protrusion/osteophyte. Mild facet hypertrophy bilaterally. Decreased, mild canal stenosis. Suboptimal evaluation of the left neural foramen. No definite change in left sided neural foraminal stenosis with associated L1 nerve root compression. Resolved right L1-L2 foraminal stenosis. L2-L3: Posterior fusion hardware. Mild residual disc bulge. Mild bilateral facet hypertrophy. Decreased, mild canal stenosis. No definite change in moderate bilateral foraminal stenosis. L3-L4: Posterior fusion hardware. Mild residual disc bulge. Mild bilateral facet hypertrophy. Decreased, mild canal stenosis. No definite change in moderate subarticular foraminal stenosis bilaterally. L4-L5: Mild disc desiccation. Mild bilateral facet hypertrophy. Mild canal stenosis. No change in moderate left and moderate to severe right foraminal stenosis with right L4 nerve root compression. L5-S1: Moderate disc desiccation. Moderate bilateral facet hypertrophy. Mild canal stenosis. Mild right and moderate left foraminal stenosis. No significant change. IMPRESSION: 1. Postsurgical sequelae. 2. Multilevel degenerative disc and facet disease, as well as ligamentum flavum hypertrophy and epidural lipomatosis. 3. Multilevel canal stenoses, worst at T12-L1 where there is increased, moderate canal stenosis. 4. Multilevel foraminal stenoses, worst at T12-L1 and L4-L5 where there is associated intraforaminal nerve root compression. Recommend correlation with clinical symptoms to ascertain relevance of these findings. Dictated by: Steve Clement M.D. on 05/28/2022 at 9:26 Approved by: Steve Clement M.D. on 05/28/2022 at 9:35
== END ==
PROVIDERS: PCP Family Medicine; Referring Provider Physician Assistant; Visit Provider Physician Assistant
DX: M51.16 Intervertebral disc disorders with radiculopathy, lumbar region (principal); M51.17 Intervertebral disc disorders with radiculopathy, lumbosacral region; M47.26 Other spondylosis with radiculopathy, lumbar region; M47.27 Other spondylosis with radiculopathy, lumbosacral region; M48.061 Spinal stenosis, lumbar region without neurogenic claudication; M48.05 Spinal stenosis, thoracolumbar region; Z98.1 Arthrodesis status
CPT/HCPCS: 72158; A9579

== ENCOUNTER → 2022-06-12 16:09 | Outpatient (CLI) | payer MEDICARE, OTHER, SELFPAY ==
[2021-04-21 08:49] VITALS: BMI 33.5
[2022-06-12 17:31] LABS: Alanine Aminotransferase 13 IU/L (<50); Albumin 3.6 g/dL (3.5-5.0); Albumin Globulin Ratio 1.1 (1.0-2.8); Alkaline Phosphatase 109 U/L (38-126); Aspartate Aminotransferase 22 IU/L (17-59); BUN Creatinine Ratio 11.6 (6-22); Bilirubin Total 0.4 mg/dL (0.2-1.3); Blood Urea Nitrogen 10 mg/dL (9-20); Calcium 8.4 mg/dL (8.4-10.2); Carbon Dioxide 29 mmol/L (22-32); Chloride 95 mmol/L (98-107); Estimated Glomerular Filt Rate > 60 mL/min (>60); Globulin 3.4 g/dL (1.7-4.1); Glucose 119 mg/dL (80-110); HEMOLYSIS < 15 (0-50); Potassium 3.1 mmol/L (3.4-5.1); Sodium 133 mmol/L (137-145)
== END ==
PROVIDERS: PCP Family Medicine; Referring Provider Physician Assistant; Visit Provider Physician Assistant
DX: T81.49XA Infection following a procedure, other surgical site, initial encounter (principal)
CPT/HCPCS: 36415; 80053

== ENCOUNTER → 2022-06-21 09:48 | Outpatient (CLI) | payer MEDICARE, OTHER, SELFPAY ==
[2021-04-21 08:49] VITALS: BMI 33.5
[2022-06-21 11:36] LABS: Add Manual Diff / Slide Review NO; Basophils Absolute Auto 100 /uL (0-100); Basophils Percent Auto 0.7 % (0-2); Eosinophils Absolute Auto 200 /uL (0-450); Hematocrit 35.8 % (41-53); Hemoglobin 11.9 g/dL (13.5-17.5); Lymphocytes Absolute Auto 1100 /uL (1100-4500); Lymphocytes Percent Auto 11.6 % (25-40); Mean Corpuscular HGB Conc 33.1 % (30-36); Mean Corpuscular Hemoglobin 27.2 PG (26-34); Monocytes Absolute Auto 1500 /uL (0-900); Monocytes Percent Auto 15.5 % (3-14); Neutrophils Absolute Auto 6500 /uL (1500-7000); Neutrophils Percent Auto 70.2 % (50-75); Platelet Count 348 X10^3/uL (150-400); Red Blood Cell Count 4.37 X10^6/uL (4.5-5.9); Red Cell Distribution Width 15.6 % (11.6-14.8); White Blood Cell Count 9.3 X10^3/uL (4.5-11.0)
[2022-06-21 12:58] LABS: Alanine Aminotransferase 14 IU/L (<50); Albumin 4.3 g/dL (3.5-5.0); Albumin Globulin Ratio 1.2 (1.0-2.8); Alkaline Phosphatase 107 U/L (38-126); Aspartate Aminotransferase 22 IU/L (17-59); BUN Creatinine Ratio 11.9 (6-22); Bilirubin Total 0.4 mg/dL (0.2-1.3); Blood Urea Nitrogen 16 mg/dL (9-20); Calcium 8.5 mg/dL (8.4-10.2); Carbon Dioxide 22 mmol/L (22-32); Chloride 94 mmol/L (98-107); Estimated Glomerular Filt Rate 54 mL/min (>60); Globulin 3.7 g/dL (1.7-4.1); Glucose 90 mg/dL (80-110); HEMOLYSIS < 15 (0-50); Potassium 4.2 mmol/L (3.4-5.1); Sodium 130 mmol/L (137-145)
== END ==
PROVIDERS: PCP Family Medicine; Referring Provider Physician Assistant Medical; Visit Provider Physician Assistant Medical
DX: M86.28 Subacute osteomyelitis, other site (principal); A49.01 Methicillin susceptible Staphylococcus aureus infection, unspecified site; Z79.2 Long term (current) use of antibiotics
CPT/HCPCS: 36415; 80053; 85025

== ENCOUNTER 2022-06-25 09:49 | Emergency (ER) | payer MEDICARE, OTHER, SELFPAY ==
[2021-04-21 08:49] VITALS: BMI 33.5
[2022-06-25] VITALS (12 sets, daily range): BP systolic 140–168; BP diastolic 73–75; PULSE 64–83; RESP 14–25; TEMP 36.9; O2SAT 95–99; BMI 31.3
[2022-06-25 11:54] LABS: COVID19 -Nasal RAPID Negative (Negative)
--- NOTE | 2022-06-25 12:43 | DI.CT.S_ITS ---
PROCEDURE: CT ABDOMEN PELVIS W CON INDICATIONS: LUQ pain TECHNIQUE: After the administration of intravenous contrast, axial sections acquired from the lung bases to the pubic symphysis. Coronal and sagittal reformats were performed. For radiation dose reduction, the following was used: automated exposure control, adjustment of mA and/or kV according to patient size. COMPARISON: [facility], CT, ABDOMEN/PELVIS WITH CONTRAST, 02/11/2017, 15:57. FINDINGS: Image quality: Excellent. Lung bases: Unremarkable. Heart: No significant findings. ABDOMEN: Liver: Unremarkable. Gallbladder: Surgically absent Biliary ducts: Unremarkable. Pancreas: Unremarkable. Spleen: Multiple calcifications within the spleen. Adrenal Glands: Unremarkable. Kidneys and Ureters: Unremarkable. Stomach and Bowel: Stomach, small bowel loops, and colon are unremarkable. Normal appendix. Peritoneum: No abnormal intraperitoneal fluid. No free air. Ventral Wall: No hernias. Abdominal Nodes: No retroperitoneal or mesenteric adenopathy by size criteria. Vessels: Aorta and inferior vena cava are normal in size. PELVIS: Pelvic Organs: [employer] [place] within the right anterior pelvis. There is an ovoid low-density focus within the left anterior pelvis measuring roughly 26 mm, new since the prior examination which may represent sequelae of herniorrhaphy. Bladder: Unremarkable. Pelvic Nodes: No enlarged lymph nodes. Miscellaneous: No hernias are seen. Bones: Unremarkable. Thoracolumbar fusion hardware is present. ORIF of the symphysis pubis and right posterior iliac wing has been performed. IMPRESSION: 1. No acute process. 2. Normal appendix. 3. Possible postsurgical sequelae within the left anterior pelvis. Correlation with surgical history recommended. Dictated by: Steve Clement M.D. on 06/25/2022 at 14:58 Approved by: Steve Clement M.D. on 06/25/2022 at 15:01
[2022-06-25 12:45] LABS: Add Manual Diff / Slide Review NO; Basophils Absolute Auto 100 /uL (0-100); Basophils Percent Auto 0.4 % (0-2); Eosinophils Absolute Auto 100 /uL (0-450); Eosinophils Percent Auto 0.6 % (2-4); Hematocrit 35.4 % (41-53); Hemoglobin 11.9 g/dL (13.5-17.5); Lymphocytes Absolute Auto 1100 /uL (1100-4500); Lymphocytes Percent Auto 7.9 % (25-40); Mean Corpuscular HGB Conc 33.6 % (30-36); Mean Corpuscular Hemoglobin 27.4 PG (26-34); Mean Corpuscular Volume 81.5 fL (80-100); Monocytes Absolute Auto 1300 /uL (0-900); Monocytes Percent Auto 9.5 % (3-14); Neutrophils Absolute Auto 11200 /uL (1500-7000); Neutrophils Percent Auto 81.6 % (50-75); Platelet Count 349 X10^3/uL (150-400); Red Blood Cell Count 4.34 X10^6/uL (4.5-5.9); Red Cell Distribution Width 15.9 % (11.6-14.8); White Blood Cell Count 13.7 X10^3/uL (4.5-11.0)
[2022-06-25] MEDS: ONDANSETRON 4 MG ODT SL (12:45)
[2022-06-25] MEDS: SODIUM CHLORIDE 0.9% 1,000 ML 1000 ML IV (12:55)
[2022-06-25] MEDS: HYDROMORPHONE 1 MG INJ IV ×2 (12:55→15:08)
[2022-06-25 13:26] LABS: Lactate (Lactic Acid) 1.9 mmol/L (0.7-2.1)
--- NOTE | 2022-06-25 13:44 | ED_ITS ---
HPI - Abdominal Pain <Steve Gloria PA-C - Last Filed: 06/25/22 21:14> General Chief Complaint: Abdominal Pain Stated Complaint: Abd pain, coughing Time Seen by Provider: 06/25/22 12:06 Source: patient Mode of arrival: Wheelchair History of Present Illness HPI narrative: 76-year-old male with past medical history hypertension, chronic pain syndrome, status post lumbar fusion surgery presents to the emergency room with 3 days of nausea, vomiting, agitation, abdominal pain. Patient states that he has been on opioid pain medication for a long time, was on hydromorphone status post his lumbar surgery, he started rationing his doses over the last 3 days since he was running low on his supply, during which time he started experiencing signs of opiate withdrawal such as nausea, vomiting, agitation, coughing, sweating. Patient states he also started coughing, which is his baseline with postnasal drip, and yesterday when he was coughing particularly hard, he felt a sharp pain in his left upper quadrant, felt a large lump in the left upper quadrant, which he pushed back in. Patient states that he has continued to have the left upper quadrant pain since then. Patient endorses 7/10 pain in the lumbar region. Patient denies fever, chills, chest pain, shortness of breath, dysuria. Patient states that he does feel some flank pain, however not distinguishable from the lumbar symptoms. Denies urinary hesitancy, urinary incontinence, saddle paresthesias. Patient had a lumbar fusion done originally on May 10, following which he had postop problems with infection, had to go back in the OR for a washout, is on p.o. antibiotics currently. Patient is is unsure what antibiotics he is on. Patient states that he was scheduled to have his stitches removed today at [place] where he had his surgery, however he was unable to go there. Patient states he was able to talk to his surgeon on the phone, who suggested that he have his stitches removed in the ED, since they would not be able to see him for another 2 weeks. Related Data Home Medications Medication Instructions Recorded Confirmed Disabled Parking Permit 1 % SEEINSTR 11/08/20 06/13/22 albuterol sulfate 2.5 mg/3 mL 2.5 mg inhalation PRN PRN 11/08/20 06/13/22 (0.083 %) solution for nebulization Shortness Of Breath hydroxychloroquine 200 mg tablet 200 mg PO DAILY 11/10/20 06/13/22 sulfasalazine 500 mg tablet 1,000 mg PO BID 11/10/20 06/13/22 gabapentin 300 mg capsule 900 mg PO TID 05/24/22 06/13/22 hydromorphone 2 mg tablet 2 - 4 mg PO Q4H PRN 05/24/22 06/13/22 methocarbamol 750 mg tablet 375 mg PO BID 05/24/22 06/13/22 Previous Rx's Medication Instructions Recorded albuterol sulfate 2.5 mg/3 mL 2.5 mg (3 mL) continuous 11/29/20 (0.083 %) solution for nebulization nebulization Q6HP PRN shortness of breath or wheezing #360 mL albuterol sulfate 90 mcg/actuation 1 inh inhalation Q4-6H PRN 01/02/21 aerosol inhaler shortness of breath #18 grams docusate sodium 100 mg capsule 100 mg PO BID #30 caps 03/15/21 (Colace) fluticasone propionate 50 1 spray intranasal BID ##1 04/07/21 mcg/actuation nasal spray,suspension valacyclovir 1 gram tablet 1,000 mg PO Q8H #20 tabs 06/08/21 fluoxetine 20 mg capsule 20 mg PO DAILY #90 caps 08/07/21 fluoxetine 10 mg capsule See Rx Instructions .Route 01/29/22 .COMPLEX #90 caps amlodipine 5 mg tablet 5 mg PO BID #180 tabs 02/15/22 hydrochlorothiazide 25 mg tablet 25 mg PO QAM #90 tabs 02/15/22 metoprolol succinate 100 mg See Rx Instructions .Route 04/17/22 tablet,extended release 24 hr .COMPLEX #90 tabs oxycodone 10 mg tablet 10 mg PO Q4-6H PRN chronic pain 05/03/22 #150 tabs losartan 100 mg tablet See Rx Instructions .Route 05/08/22 .COMPLEX #90 tabs omeprazole 40 mg capsule,delayed See Rx Instructions .Route 05/08/22 release .COMPLEX #90 caps Allergies Allergy/AdvReac Type Severity Reaction Status Date / Time cyclobenzaprine Allergy Verified 06/13/22 12:14 [From Flexeril] acetaminophen [ACETAMINOPHEN] AdvReac Unknown Can't take Verified 06/13/22 12:14 r/t Hep C Review of Systems <Steve Gloria PA-C - Last Filed: 06/25/22 21:14> Review of Systems ROS Unobtainable: All systems reviewed & are unremarkable except as noted in HPI and below Constitutional Constitutional: Denies chills, Reports excessive sweating, Denies fatigue, Denies fever(s), Denies frequent falls, Denies lethargy and Denies weakness Eyes Eyes: Denies change in vision, Denies eye discharge, Denies irritation and Denies loss of vision ENT Ears, Nose, Mouth, and Throat: Denies change in voice, Denies dizziness, Denies neck pain, Denies sore throat and Denies throat swelling Cardiovascular Cardiovascular: Denies chest pain, Denies irregular heart rhythm, Denies lightheadedness, Denies palpitations, Denies dyspnea, Denies dyspnea on exertion and Denies orthopnea Respiratory Respiratory: Reports cough, Denies dyspnea, Denies dyspnea on exertion and Denies wheezing Gastrointestinal Gastrointestinal: Reports abdominal pain, Denies change in bowel habits, Denies diarrhea, Reports nausea and Reports vomiting Genitourinary Genitourinary: Denies hematuria, Denies flank pain, Denies urinary incontinence and Denies urinary urgency Musculoskeletal Musculoskeletal: Reports back pain, Denies muscle weakness, Denies neck pain, Denies numbness and Denies tingling Integumentary/Breasts Skin/Breast: Denies pruritus, Denies erythema, Denies rash and Denies wounds Neurologic Neurologic: Denies behavioral changes, Denies confusion, Denies dizziness, Denies frequent falls, Denies loss of vision, Denies numbness, Denies tingling and Denies weakness Psychiatric Psychiatric: Denies anxiety, Denies behavioral changes, Denies confusion, Denies depression, Denies homicidal ideation and Denies suicidal ideation Endocrine Endocrine: Reports excessive sweating, Denies fatigue, Denies flushing and Denies palpitations Hematologic/Lymphatic Hematologic/Lymphatic: Denies easy bruising Allergic/Immunologic Allergic/Immunologic: Denies urticaria, Denies throat swelling and Denies wheezing Patient History <Steve Gloria PA-C - Last Filed: 06/25/22 21:14> Medical History Acute exacerbation of chronic bronchitis Anxiety Arthritis (Unknown) Chronic ankle pain, bilateral Chronic pain syndrome (Unknown) Colles' fracture Depression (Unknown) Fibromyalgia Foraminal stenosis of lumbar region Hepatitis C (Unknown) Hypertension (Unknown) Impotence (Unknown) Kidney stones (Unknown) Left shoulder strain Migraines (Unknown) Oral lesion Peripheral neuropathy Pneumonia (~2018) Prostate cancer (Unknown) PTSD (post-traumatic stress disorder) (Unknown) Restless leg syndrome (Unknown) Rheumatoid arthritis Right wrist pain Right wrist sprain Sinus drainage Skin cancer (Unknown) Surgical History History of back surgery History of carpal tunnel repair History of lumbar fusion History of tonsillectomy Hx of foot surgery Hx of joint replacement Hx of laminectomy (10/2012) Status post cholecystectomy Status post knee surgery Family History Father Heart disease Mother No problems noted. Social History marital status: household members: spouse occupational status: previously employed Smoking Status: Former smoker Tobacco: How many years used: 20 quit status: has quit before alcohol intake: former substance use type: former substance user and marijuana Smoking Status: Former smoker tobacco type: cigarettes Substance Use Type: does not use and former substance user Exam <Steve Gloria PA-C - Last Filed: 06/25/22 21:14> Narrative Exam Narrative: Const General:?cooperative, healthy appearing and comfortable [facility] Head:?normal to inspection Ears:?hearing grossly normal bilaterally Nose:?external nose normal Face and sinus:?normal facial exam and sinuses nontender Mouth:?oral mucosae normal Throat:?posterior oropharynx normal Eyes General:?appearance normal, both eyes and all related structures Neck Neck:?normal visual inspection and no lymphadenopathy noted Resp Effort & Inspection:?normal respiratory effort Auscultation:?clear to auscultation bilaterally Cardio Rate:?regular rate Rhythm:?regular rhythm GI Abdomen is soft, nondistended. Abdomen is tender to palpation in the left upper quadrant, side. Integumentary Surgical incision from spine fusion surgery has healed well, with no overt signs of infection. Neuro General:?patient alert, patient awake and patient oriented x3 Initial Vital Signs Initial Vital Signs: Vital Signs Temperature 98.5 F 06/25/22 10:03 Pulse Rate 83 06/25/22 10:03 Respiratory Rate 18 06/25/22 10:03 Blood Pressure 140/74 06/25/22 10:03 Pulse Oximetry 98 06/25/22 10:03 Oxygen Delivery Method 06/25/22 10:03 <Carie Escalante DO - Last Filed: 06/26/22 08:06> Initial Vital Signs Initial Vital Signs: Vital Signs Temperature 98.5 F 06/25/22 10:03 Pulse Rate 83 06/25/22 10:03 Respiratory Rate 18 06/25/22 10:03 Blood Pressure 140/74 06/25/22 10:03 Pulse Oximetry 98 06/25/22 10:03 Oxygen Delivery Method 06/25/22 10:03 Course <Steve Gloria PA-C - Last Filed: 06/25/22 21:14> Orders Ordered: Discontinued Medications Hydromorphone HCl (Hydromorphone 1 Mg Inj) 1 mg IV NOW ONE Stop: 06/25/22 12:49 Last Admin: 06/25/22 12:55 Dose: 1 mg Documented By: SHAWNA Hydromorphone HCl (Hydromorphone 1 Mg Inj) 1 mg IV NOW ONE Stop: 06/25/22 15:02 Last Admin: 06/25/22 15:08 Dose: 1 mg Documented By: SHAWNA Hydromorphone HCl (Hydromorphone 1 Mg Inj) 1 mg IV NOW ONE Stop: 06/25/22 16:00 Sodium Chloride (Normal Saline 0.9%) 1,000 mls @ 1,000 mls/hr IV BOLUS ONE Stop: 06/25/22 13:48 Last Infusion: 06/25/22 16:27 Dose: 0 mls/hr Documented By: Admin: 06/25/22 12:55 Dose: 1,000 mls/hr Documented By: OW Ondansetron HCl (Ondansetron 4 Mg Odt) 4 mg SL NOW ONE Stop: 06/25/22 12:20 Last Admin: 06/25/22 12:45 Dose: 4 mg Documented By: OW Vital Signs Vital signs: Vital Signs - 8 hr 06/25/22 13:30 06/25/22 14:00 06/25/22 14:30 Pulse Rate 64 69 67 Respiratory Rate 24 25 H 17 Blood Pressure Pulse Oximetry 96 97 95 Oxygen Delivery Method 06/25/22 15:09 06/25/22 15:30 06/25/22 16:00 Pulse Rate 67 69 70 Respiratory Rate 14 19 22 Blood Pressure 168/73 H Pulse Oximetry 96 Oxygen Delivery Method Room Air 06/25/22 16:35 Pulse Rate 68 Respiratory Rate 20 Blood Pressure 142/75 H Pulse Oximetry 99 Oxygen Delivery Method Room Air <Carie Escalante DO - Last Filed: 06/26/22 08:06> Orders Ordered: Discontinued Medications Hydromorphone HCl (Hydromorphone 1 Mg Inj) 1 mg IV NOW ONE Stop: 06/25/22 12:49 Last Admin: 06/25/22 12:55 Dose: 1 mg Documented By: SHAWNA Hydromorphone HCl (Hydromorphone 1 Mg Inj) 1 mg IV NOW ONE Stop: 06/25/22 15:02 Last Admin: 06/25/22 15:08 Dose: 1 mg Documented By: SHAWNA Hydromorphone HCl (Hydromorphone 1 Mg Inj) 1 mg IV NOW ONE Stop: 06/25/22 16:00 Sodium Chloride (Normal Saline 0.9%) 1,000 mls @ 1,000 mls/hr IV BOLUS ONE Stop: 06/25/22 13:48 Last Infusion: 06/25/22 16:27 Dose: 0 mls/hr Documented By: Admin: 06/25/22 12:55 Dose: 1,000 mls/hr Documented By: SHAWNA Ondansetron HCl (Ondansetron 4 Mg Odt) 4 mg SL NOW ONE Stop: 06/25/22 12:20 Last Admin: 06/25/22 12:45 Dose: 4 mg Documented By: SHAWNA Vital Signs Vital signs: Vital Signs - 8 hr 06/25/22 13:30 06/25/22 14:00 06/25/22 14:30 Pulse Rate 64 69 67 Respiratory Rate 24 25 H 17 Blood Pressure Pulse Oximetry 96 97 95 Oxygen Delivery Method 06/25/22 15:09 06/25/22 15:30 06/25/22 16:00 Pulse Rate 67 69 70 Respiratory Rate 14 19 22 Blood Pressure 168/73 H Pulse Oximetry 96 Oxygen Delivery Method Room Air 09/12/22 16:35 Pulse Rate 68 Respiratory Rate 20 Blood Pressure 142/75 H Pulse Oximetry 99 Oxygen Delivery Method Room Air MDM - Abdominal Pain <Steve Gloria PA-C - Last Filed: 06/25/22 21:14> Lab Data Result diagrams: 06/25/22 12:30 06/25/22 13:55 Labs: Lab Results 06/25/22 06/25/22 06/25/22 Range/Units 10:00 12:30 12:30 WBC 13.7 H (4.5-11.0) X10^3/uL RBC 4.34 L (4.5-5.9) X10^6/uL Hgb 11.9 L (13.5-17.5) g/dL Hct 35.4 L (41-53) % MCV 81.5 (80-100) fL MCH 27.4 (26-34) PG MCHC 33.6 (30-36) % RDW 15.9 H (11.6-14.8) % Plt Count 349 (150-400) X10^3/uL Neut % (Auto) 81.6 H (50-75) % Lymph % (Auto) 7.9 L (25-40) % [place] % (Auto) 9.5 (3-14) % Eos % (Auto) 0.6 L (2-4) % Baso % (Auto) 0.4 (0-2) % Neut # (Auto) 09450 H (7850-8350) /uL Lymph # (Auto) 1100 (0468-2396) /uL [place] # (Auto) 1300 H (0-900) /uL Eos # (Auto) 100 (0-450) /uL Baso # (Auto) 100 (0-100) /uL Sodium (137-145) mmol/L Potassium (3.4-5.1) mmol/L Chloride (98-107) mmol/L Carbon Dioxide (22-32) mmol/L BUN (9-20) mg/dL Creatinine (0.66-1.25) mg/dL Estimated GFR (>60) mL/min BUN/Creatinine Ratio (6-22) Glucose (80-110) mg/dL Lactate 1.9 (0.7-2.1) mmol/L Calcium (8.4-10.2) mg/dL Total Bilirubin (0.2-1.3) mg/dL AST (17-59) IU/L ALT (<50) IU/L Alkaline Phosphatase (38-126) U/L Total Protein (6.3-8.2) g/dL Albumin (3.5-5.0) g/dL Globulin (1.7-4.1) g/dL Albumin/Globulin Ratio (1.0-2.8) Lipase (23-300) U/L Urine RBC (0-5/HPF) Urine WBC (0-5/HPF) Ur Squamous Epith Cells (0-5/HPF) Amorphous Sediment Urine Bacteria (None) Urine Mucus (Negative) Ur Culture Indicated? SARS-CoV-2 (PCR) Negative (Negative) 06/25/22 06/25/22 Range/Units 13:55 15:20 WBC (4.5-11.0) X10^3/uL RBC (4.5-5.9) X10^6/uL Hgb (13.5-17.5) g/dL Hct (41-53) % MCV (80-100) fL MCH (26-34) PG MCHC (30-36) % RDW (11.6-14.8) % Plt Count (150-400) X10^3/uL Neut % (Auto) (50-75) % Lymph % (Auto) (25-40) % [place] % (Auto) (3-14) % Eos % (Auto) (2-4) % Baso % (Auto) (0-2) % Neut # (Auto) (0158-4328) /uL Lymph # (Auto) (4437-2425) /uL [place] # (Auto) (0-900) /uL Eos # (Auto) (0-450) /uL Baso # (Auto) (0-100) /uL Sodium 135 L (137-145) mmol/L Potassium 3.9 (3.4-5.1) mmol/L Chloride 98 (98-107) mmol/L Carbon Dioxide 23 (22-32) mmol/L BUN 13 (9-20) mg/dL Creatinine 0.74 (0.66-1.25) mg/dL Estimated GFR > 60 (>60) mL/min BUN/Creatinine Ratio 17.6 (6-22) Glucose 128 H (80-110) mg/dL Lactate (0.7-2.1) mmol/L Calcium 8.7 (8.4-10.2) mg/dL Total Bilirubin 0.3 (0.2-1.3) mg/dL AST 21 (17-59) IU/L ALT 13 (<50) IU/L Alkaline Phosphatase 106 (38-126) U/L Total Protein 7.6 (6.3-8.2) g/dL Albumin 3.8 (3.5-5.0) g/dL Globulin 3.8 (1.7-4.1) g/dL Albumin/Globulin Ratio 1.0 (1.0-2.8) Lipase 88 (23-300) U/L Urine RBC 1-5/hpf (0-5/HPF) Urine WBC 1-5/hpf (0-5/HPF) Ur Squamous Epith Cells 0-1 /hpf (0-5/HPF) Amorphous Sediment 1+ Urine Bacteria Occasional (0-1) (None) Urine Mucus 2+ H (Negative) Ur Culture Indicated? Cult not indicated SARS-CoV-2 (PCR) (Negative) Point of care testing: Urine Dip Bedside Urine Glucose Negative Bedside Urine Bilirubin - Negative Bedside Urine Ketone - Negative Urine Specific Gerry 1.01 Bedside Urine Occult Blood - Negative Bedside Urine pH 7.5 Bedside Urine Protein + 30 Bedside Urine Urobilinogen - Negative Bedside Urine Nitrite - Negative Bedside Urine Leukocytes - Negative Esterase Imaging Data CT scan - abdomen/pelvis: Radiologist's Impression: PROCEDURE:? CT ABDOMEN PELVIS W CON ? INDICATIONS:? LUQ pain ? TECHNIQUE:? After the administration of intravenous contrast, axial sections acquired from the lung bases to the pubic symphysis.? Coronal and sagittal reformats were performed.? For radiation dose reduction, the following was used:? automated exposure control, adjustment of mA and/or kV according to patient size.? ? COMPARISON:? [facility], CT, ABDOMEN/PELVIS WITH CONTRAST, 02/11/2017, 15:57. ? FINDINGS:? Image quality:? Excellent.? ? Lung bases:? Unremarkable. Heart:? No significant findings. ? ABDOMEN: Liver:? Unremarkable.? ? Gallbladder:? Surgically absent? ? Biliary ducts:? Unremarkable.? ? Pancreas:? Unremarkable.? ? Spleen:? Multiple calcifications within the spleen. Adrenal Glands:? Unremarkable.? ? Kidneys and Ureters:? Unremarkable.? ? ? Stomach and Bowel:? Stomach, small bowel loops, and colon are unremarkable.? Normal appendix. Peritoneum:? No abnormal intraperitoneal fluid.? No free air.? ? Ventral Wall: ? No hernias.? Abdominal Nodes:? No retroperitoneal or mesenteric adenopathy by size criteria.? Vessels:? Aorta and inferior vena cava are normal in size.? ? PELVIS: Pelvic Organs:? Cricket within the right anterior pelvis.? There is an ovoid low-density focus within the left anterior pelvis measuring roughly 26 mm, new since the prior examination which may represent sequelae of herniorrhaphy. Bladder:? Unremarkable.? ? Pelvic Nodes: No enlarged lymph nodes.? Miscellaneous: No hernias are seen. ? ? ? Bones:? Unremarkable.? ? Thoracolumbar fusion hardware is present.? ORIF of the symphysis pubis and right posterior iliac wing has been performed. ? ? IMPRESSION:? 1. No acute process. 2. Normal appendix. 3. Possible postsurgical sequelae within the left anterior pelvis.? Correlation with surgical history recommended.? ? ? Dictated by: Steve Clement M.D. on 06/25/2022 at 14:58 ? ? Approved by: Steve Clement M.D. on 06/25/2022 at 15:01 ? MDM Narrative Medical decision making narrative: 76-year-old male with past medical history hypertension, chronic pain syndrome, status post lumbar fusion surgery presents to the emergency room with 3 days of nausea, vomiting, agitation, abdominal pain. Concern for hernia versus other intra-abdominal pathology versus UTI versus pyelonephritis versus opiate withdrawal versus other. Will obtain labs, UA, lactate, CT abdomen pelvis. Will give IV fluids, Dilaudid for symptoms. Will reassess. Labs within normal limits. Patient's symptoms improved with Dilaudid, IV fluids. CT shows some possible postsurgical sequelae in the left anterior pelvis, however no acute findings. Patient's sutures from the spinal fusion were removed without complications. The incision has healed well with no signs of infection. Patient agrees to follow up with his ortho surgeon as soon as possible for a follow-up as well as pain management. ED return precautions were discussed with patient. Patient verbalized understanding. <Carie Escalante, DO - Last Filed: 06/26/22 08:06> Lab Data Labs: Lab Results 06/25/22 06/25/22 06/25/22 Range/Units 10:00 12:30 12:30 WBC 13.7 H (4.5-11.0) X10^3/uL RBC 4.34 L (4.5-5.9) X10^6/uL Hgb 11.9 L (13.5-17.5) g/dL Hct 35.4 L (41-53) % MCV 81.5 (80-100) fL MCH 27.4 (26-34) PG MCHC 33.6 (30-36) % RDW 15.9 H (11.6-14.8) % Plt Count 349 (150-400) X10^3/uL Neut % (Auto) 81.6 H (50-75) % Lymph % (Auto) 7.9 L (25-40) % [place] % (Auto) 9.5 (3-14) % Eos % (Auto) 0.6 L (2-4) % Baso % (Auto) 0.4 (0-2) % Neut # (Auto) 44787 H (5260-9602) /uL Lymph # (Auto) 1100 (1068-1861) /uL [place] # (Auto) 1300 H (0-900) /uL Eos # (Auto) 100 (0-450) /uL Baso # (Auto) 100 (0-100) /uL Sodium (137-145) mmol/L Potassium (3.4-5.1) mmol/L Chloride (98-107) mmol/L Carbon Dioxide (22-32) mmol/L BUN (9-20) mg/dL Creatinine (0.66-1.25) mg/dL Estimated GFR (>60) mL/min BUN/Creatinine Ratio (6-22) Glucose (80-110) mg/dL Lactate 1.9 (0.7-2.1) mmol/L Calcium (8.4-10.2) mg/dL Total Bilirubin (0.2-1.3) mg/dL AST (17-59) IU/L ALT (<50) IU/L Alkaline Phosphatase (38-126) U/L Total Protein (6.3-8.2) g/dL Albumin (3.5-5.0) g/dL Globulin (1.7-4.1) g/dL Albumin/Globulin Ratio (1.0-2.8) Lipase (23-300) U/L Urine RBC (0-5/HPF) Urine WBC (0-5/HPF) Ur Squamous Epith Cells (0-5/HPF) Amorphous Sediment Urine Bacteria (None) Urine Mucus (Negative) Ur Culture Indicated? SARS-CoV-2 (PCR) Negative (Negative) 06/25/22 06/25/22 Range/Units 13:55 15:20 WBC (4.5-11.0) X10^3/uL RBC (4.5-5.9) X10^6/uL Hgb (13.5-17.5) g/dL Hct (41-53) % MCV (80-100) fL MCH (26-34) PG MCHC (30-36) % RDW (11.6-14.8) % Plt Count (150-400) X10^3/uL Neut % (Auto) (50-75) % Lymph % (Auto) (25-40) % [place] % (Auto) (3-14) % Eos % (Auto) (2-4) % Baso % (Auto) (0-2) % Neut # (Auto) (7522-0330) /uL Lymph # (Auto) (6743-6630) /uL [place] # (Auto) (0-900) /uL Eos # (Auto) (0-450) /uL Baso # (Auto) (0-100) /uL Sodium 135 L (137-145) mmol/L Potassium 3.9 (3.4-5.1) mmol/L Chloride 98 (98-107) mmol/L Carbon Dioxide 23 (22-32) mmol/L BUN 13 (9-20) mg/dL Creatinine 0.74 (0.66-1.25) mg/dL Estimated GFR > 60 (>60) mL/min BUN/Creatinine Ratio 17.6 (6-22) Glucose 128 H (80-110) mg/dL Lactate (0.7-2.1) mmol/L Calcium 8.7 (8.4-10.2) mg/dL Total Bilirubin 0.3 (0.2-1.3) mg/dL AST 21 (17-59) IU/L ALT 13 (<50) IU/L Alkaline Phosphatase 106 (38-126) U/L Total Protein 7.6 (6.3-8.2) g/dL Albumin 3.8 (3.5-5.0) g/dL Globulin 3.8 (1.7-4.1) g/dL Albumin/Globulin Ratio 1.0 (1.0-2.8) Lipase 88 (23-300) U/L Urine RBC 1-5/hpf (0-5/HPF) Urine WBC 1-5/hpf (0-5/HPF) Ur Squamous Epith Cells 0-1 /hpf (0-5/HPF) Amorphous Sediment 1+ Urine Bacteria Occasional (0-1) (None) Urine Mucus 2+ H (Negative) Ur Culture Indicated? Cult not indicated SARS-CoV-2 (PCR) (Negative) Point of care testing: Urine Dip Bedside Urine Glucose Negative Bedside Urine Bilirubin - Negative Bedside Urine Ketone - Negative Urine Specific Gerry 1.01 Bedside Urine Occult Blood - Negative Bedside Urine pH 7.5 Bedside Urine Protein + 30 Bedside Urine Urobilinogen - Negative Bedside Urine Nitrite - Negative Bedside Urine Leukocytes - Negative Esterase Discharge Plan Departure Patient Disposition: Home Clinical Impression: Abdominal pain Instructions: DI for Abdominal Pain-Adult Activity Restrictions/Additional Instructions: You were evaluated in the ED today for abdominal pain. Your labs, CT abdomen pelvis were without any acute findings. Your sutures from your lumbar fusion surgery were removed in the ED today. Your incision appears to have healed well without signs of infection. Please follow-up with your ortho surgeon at [facility] as scheduled. Please return to the ED if you have worsening symptoms, chest pain, shortness of breath, worsening abdominal pain, nausea, vomiting. Prescriptions: No Action albuterol sulfate 2.5 mg /3 mL (0.083 %) solution for nebulization 2.5 mg Continuous Nebulization Q6HP PRN (Reason: shortness of breath or wheezing) Qty: 360 2RF albuterol sulfate 90 mcg/actuation HFA aerosol inhaler 1 inh INHALATION Q4-6H PRN (Reason: shortness of breath) Qty: 18 4RF docusate sodium [Colace] 100 mg capsule 100 mg PO BID Qty: 30 0RF fluticasone propionate 50 mcg/actuation spray,suspension 1 spray Intranasal BID Qty: 1 3RF valacyclovir 1 gram tablet 1,000 mg PO Q8H Qty: 20 2RF fluoxetine 20 mg capsule 20 mg PO DAILY Qty: 90 3RF Rx Instructions: Take with 10 mg to complete 30 mg dose fluoxetine 10 mg capsule See Rx Instructions .ROUTE .COMPLEX Qty: 90 1RF Dose Instruction: take 1 capsule by mouth once daily WITH 20MG CAP DAILY TOTAL 30 MG DAILY Rx Instructions: take 1 capsule by mouth once daily WITH 20MG CAP DAILY TOTAL 30 MG DAILY metoprolol succinate 100 mg tablet extended release 24 hr See Rx Instructions .ROUTE .COMPLEX Qty: 90 0RF Dose Instruction: Take one tablet by mouth one time daily Rx Instructions: Take one tablet by mouth one time daily oxycodone 10 mg tablet 10 mg PO Q4-6H PRN (Reason: chronic pain) Qty: 150 0RF Rx Instructions: INcreased dosing regimen. Max 5 per day losartan 100 mg tablet See Rx Instructions .ROUTE .COMPLEX Qty: 90 2RF Dose Instruction: take 1 tablet by mouth once daily Rx Instructions: take 1 tablet by mouth once daily omeprazole 40 mg capsule,delayed release(DR/EC) See Rx Instructions .ROUTE .COMPLEX Qty: 90 0RF Dose Instruction: take 1 capsule by mouth once daily Rx Instructions: take 1 capsule by mouth once daily amlodipine 5 mg tablet 5 mg PO BID Qty: 180 3RF Label Comments: pt received dose in hospital 11/10/19 early AM admit to [facility] hydrochlorothiazide 25 mg tablet 25 mg PO QAM Qty: 90 3RF gabapentin 300 mg capsule 900 mg PO TID methocarbamol 750 mg tablet 375 mg PO BID hydromorphone 2 mg tablet 2 - 4 mg PO Q4H PRN Disabled Parking Permit 1 1 % SEEINSTR Rx Instructions: Valid for 5 years albuterol sulfate 2.5 mg /3 mL (0.083 %) solution for nebulization 2.5 mg inhalation PRN PRN (Reason: Shortness Of Breath) Label Comments: 2.5 MG (3 mL) Continuous Nebulization Q6HP As Needed for shortness ofbreath or wheezing sulfasalazine 500 mg tablet 1,000 mg PO BID hydroxychloroquine 200 mg tablet 200 mg PO DAILY Referrals: Edilberto Snell DO [Primary Care Provider] - Visit Report Forms: Patient Portal/API <Carie Escalante DO - Last Filed: 06/26/22 08:06> Cosign ED Attending Cosignature Attestation: I was immediately available in the department for consultation. Documentation has been reviewed.
[2022-06-25 14:35] LABS: Alanine Aminotransferase 13 IU/L (<50); Albumin 3.8 g/dL (3.5-5.0); Alkaline Phosphatase 106 U/L (38-126); Aspartate Aminotransferase 21 IU/L (17-59); BUN Creatinine Ratio 17.6 (6-22); Bilirubin Total 0.3 mg/dL (0.2-1.3); Blood Urea Nitrogen 13 mg/dL (9-20); Calcium 8.7 mg/dL (8.4-10.2); Carbon Dioxide 23 mmol/L (22-32); Chloride 98 mmol/L (98-107); Estimated Glomerular Filt Rate > 60 mL/min (>60); Globulin 3.8 g/dL (1.7-4.1); Glucose 128 mg/dL (80-110); HEMOLYSIS < 15 (0-50); Lipase 88 U/L (23-300); Potassium 3.9 mmol/L (3.4-5.1); Sodium 135 mmol/L (137-145); Total Protein 7.6 g/dL (6.3-8.2)
[2022-06-25 16:28] LABS: Amorphous Sediment Urine 1+; Bacteria Urine Occasional (0-1); Culture Indicated Urine Cult Not Indicated; Mucus Urine 2+ (Negative); RBC Urine 1-5/HPF (0-5/HPF); Squamous Epithelial Cell Urine 0-1 /HPF (0-5/HPF); WBC Urine 1-5/HPF (0-5/HPF)
== END 2022-06-25 16:35 | disposition home or self-care (01) ==
PROVIDERS: Emergency Medicine; Emergency Provider Student in an Organized Health Care Education/Training Program; PCP Family Medicine
DX: G89.18 Other acute postprocedural pain (principal); R10.32 Left lower quadrant pain; R11.2 Nausea with vomiting, unspecified; Z20.822 Contact with and (suspected) exposure to COVID-19; R05.9 Cough, unspecified
CPT/HCPCS: 36415; 74177; 80053; 81003; 81015; 83605; 83690; 85025; 87635; 93005; 96361; 96374; 96376; 99284; 99285; C9803; J1170; Q9967

== ENCOUNTER → 2022-07-05 13:37 | Outpatient (CLI) | payer MEDICARE, OTHER, SELFPAY ==
[2021-04-21 08:49] VITALS: BMI 33.5
[2022-07-05 14:33] LABS: Add Manual Diff / Slide Review NO; Basophils Absolute Auto 0 /uL (0-100); Basophils Percent Auto 0.2 % (0-2); Eosinophils Absolute Auto 200 /uL (0-450); Hematocrit 31.9 % (41-53); Hemoglobin 10.6 g/dL (13.5-17.5); Lymphocytes Absolute Auto 700 /uL (1100-4500); Lymphocytes Percent Auto 6.8 % (25-40); Mean Corpuscular HGB Conc 33.3 % (30-36); Mean Corpuscular Volume 80.9 fL (80-100); Monocytes Absolute Auto 800 /uL (0-900); Monocytes Percent Auto 7.2 % (3-14); Neutrophils Absolute Auto 9200 /uL (1500-7000); Neutrophils Percent Auto 83.8 % (50-75); Platelet Count 256 X10^3/uL (150-400); Red Blood Cell Count 3.94 X10^6/uL (4.5-5.9); Red Cell Distribution Width 15.7 % (11.6-14.8)
[2022-07-05 15:02] LABS: Alanine Aminotransferase 19 IU/L (<50); Albumin 3.8 g/dL (3.5-5.0); Albumin Globulin Ratio 1.1 (1.0-2.8); Alkaline Phosphatase 93 U/L (38-126); Aspartate Aminotransferase 24 IU/L (17-59); BUN Creatinine Ratio 15.5 (6-22); Bilirubin Total 0.2 mg/dL (0.2-1.3); Blood Urea Nitrogen 18 mg/dL (9-20); Calcium 8.5 mg/dL (8.4-10.2); Carbon Dioxide 27 mmol/L (22-32); Chloride 91 mmol/L (98-107); Estimated Glomerular Filt Rate > 60 mL/min (>60); Globulin 3.4 g/dL (1.7-4.1); Glucose 122 mg/dL (80-110); HEMOLYSIS < 15 (0-50); Potassium 3.7 mmol/L (3.4-5.1); Sodium 136 mmol/L (137-145); Total Protein 7.2 g/dL (6.3-8.2)
== END ==
PROVIDERS: PCP Family Medicine; Referring Provider Physician Assistant Medical; Visit Provider Physician Assistant Medical
DX: Z79.2 Long term (current) use of antibiotics (principal); A49.01 Methicillin susceptible Staphylococcus aureus infection, unspecified site
CPT/HCPCS: 36415; 80053; 85025

== ENCOUNTER → 2022-08-23 16:34 | Outpatient (CLI) | payer MEDICARE, OTHER, SELFPAY ==
[2021-04-21 08:49] VITALS: BMI 33.5
--- NOTE | 2022-08-23 16:37 | DI.RAD.S_ITS ---
PROCEDURE: XR SHOULDER LT MIN 2V INDICATIONS: Progressive left shoulder pain, adhesive capsulitis TECHNIQUE: 3 views of the shoulder were acquired. COMPARISON: None. FINDINGS: Bones: No fractures or dislocations. No suspicious bony lesions. Visualized ribs appear intact. Acromioclavicular and severe glenohumeral joint space narrowing with periarticular osteophyte formation. Soft tissues: Calcification seen along the superior lateral margin of the humeral head soft tissues. IMPRESSION: 1. Mild acromioclavicular and severe glenohumeral joint degeneration. 2. Mild tendinitis versus calcific bursitis. Dictated by: Sunday Barrera [facility] Interpreted: Kaci Calabrese MD on 08/23/2022 at 16:56 Transcribed by: CAYETANO on 08/23/2022 at 16:57 Approved by: Kaci Calabrese M.D. on 08/23/2022 at 17:33
== END ==
PROVIDERS: PCP Family Medicine; Referring Provider Family Medicine; Visit Provider Family Medicine
DX: M19.012 Primary osteoarthritis, left shoulder (principal); M75.00 Adhesive capsulitis of unspecified shoulder
CPT/HCPCS: 73030

== ENCOUNTER → 2022-09-11 12:24 | Outpatient (CLI) | payer MEDICARE, OTHER, SELFPAY ==
[2021-04-21 08:49] VITALS: BMI 33.5
--- NOTE | 2022-09-11 12:26 | DI.CT.S_ITS ---
PROCEDURE: CT UE LT WO CON INDICATIONS: Primary osteoarthritis, left shoulder TECHNIQUE: Noncontrast 1-1.5 mm thick sections acquired from the acromioclavicular joint to the inferior scapula, with coronal and sagittal reformatting. COMPARISON: [facility], CR, XR SHOULDER LT MIN 2V, 08/23/2022, 16:45. FINDINGS: Image quality: Excellent. Bones: There is moderate periarticular osteophyte formation at the left glenohumeral joint. There is ill-defined curvilinear lucency traversing the mid and posterior aspect of the bony glenoid. Mild periarticular osteophyte formation at the acromioclavicular joint is present. Soft tissues: Multiple calcified left hilar lymph nodes are present. Multiple mildly prominent left axillary lymph nodes are present, largest of which measures roughly 12 mm short axis. IMPRESSION: 1. Findings suggestive of a subacute glenoid fracture. This could be further assessed with MRI, if clinically indicated. 2. Acromioclavicular and glenohumeral joint osteoarthritis. 3. Remote granulomatous disease. 4. Left axillary adenopathy, which is indeterminate, with differential considerations including reactive adenopathy, metastatic disease, and lymphoma. Dictated by: Steve Clement M.D. on 09/11/2022 at 16:39 Transcribed by: KASEY on 09/11/2022 at 16:41 Approved by: Steve Clement M.D. on 09/11/2022 at 16:52
== END ==
PROVIDERS: PCP Family Medicine; Referring Provider Orthopaedic Surgery; Visit Provider Orthopaedic Surgery
DX: M19.012 Primary osteoarthritis, left shoulder (principal); R59.0 Localized enlarged lymph nodes
CPT/HCPCS: 73200

== ENCOUNTER → 2022-09-28 13:13 | Outpatient (CLI) | payer MEDICARE, OTHER, SELFPAY ==
[2021-04-21 08:49] VITALS: BMI 33.5
[2022-09-28 14:09] LABS: Add Manual Diff / Slide Review NO; Basophils Absolute Auto 100 /uL (0-100); Basophils Percent Auto 0.7 % (0-2); Eosinophils Absolute Auto 200 /uL (0-450); Eosinophils Percent Auto 2.5 % (2-4); Hematocrit 35.4 % (41-53); Hemoglobin 12.2 g/dL (13.5-17.5); Lymphocytes Absolute Auto 1400 /uL (1100-4500); Mean Corpuscular HGB Conc 34.5 % (30-36); Mean Corpuscular Volume 78.2 fL (80-100); Monocytes Absolute Auto 1000 /uL (0-900); Monocytes Percent Auto 12.5 % (3-14); Neutrophils Absolute Auto 5600 /uL (1500-7000); Neutrophils Percent Auto 67.3 % (50-75); Platelet Count 317 X10^3/uL (150-400); Red Blood Cell Count 4.53 X10^6/uL (4.5-5.9); Red Cell Distribution Width 16.7 % (11.6-14.8); White Blood Cell Count 8.3 X10^3/uL (4.5-11.0)
[2022-09-28 14:26] LABS: Blood Urea Nitrogen 10 mg/dL (9-20); Calcium 8.9 mg/dL (8.4-10.2); Carbon Dioxide 29 mmol/L (22-32); Chloride 100 mmol/L (98-107); Estimated Glomerular Filt Rate > 60 mL/min (>60); Glucose 120 mg/dL (80-110); HEMOLYSIS < 15 (0-50); Sodium 141 mmol/L (137-145)
[2022-09-28 14:42] LABS: Potassium 2.7 mmol/L (3.4-5.1)
[2022-09-28 14:58] LABS: Appearance Urine UA CLEAR; Bilirubin Urine UA 1+ (NEGATIVE); Color Urine UA YELLOW; Glucose Urine UA TRACE g/dL (Negative); Ketones Urine UA TRACE (NEGATIVE); Leukocyte Esterase Urine UA TRACE (NEGATIVE); Nitrite Urine UA NEGATIVE (Negative); Occult Blood Urine UA NEGATIVE (Negative); Protein Urine UA 2+ (Negative); Urobilinogen Urine UA 0.2 E.U./dL (0.2); pH Urine UA 5.5 (4.5-8.0)
[2022-09-28 16:01] LABS: Ictotest Urine Negative (Negative); RBC Urine None Seen (0-5/HPF)
[2022-09-28 16:02] LABS: Bacteria Urine None Seen; Culture Indicated Urine Specimen Cultured; Hyaline Casts Urine 1-5/LPF; Mucus Urine 3+ (Negative); Squamous Epithelial Cell Urine 1-5 /HPF (0-5/HPF); WBC Urine 1-5/HPF (0-5/HPF)
== END ==
PROVIDERS: PCP Family Medicine; Referring Provider Orthopaedic Surgery; Visit Provider Orthopaedic Surgery
DX: Z01.818 Encounter for other preprocedural examination (principal); Z01.812 Encounter for preprocedural laboratory examination; N39.0 Urinary tract infection, site not specified
CPT/HCPCS: 36415; 80048; 81001; 85025; 87086; 93005; 93010

== ENCOUNTER → 2022-10-06 12:32 | Outpatient (CLI) | payer MEDICARE, OTHER, SELFPAY ==
[2021-04-21 08:49] VITALS: BMI 33.5
[2022-10-06 13:13] LABS: BUN Creatinine Ratio 16.9 (6-22); Blood Urea Nitrogen 13 mg/dL (9-20); Calcium 8.6 mg/dL (8.4-10.2); Carbon Dioxide 30 mmol/L (22-32); Chloride 97 mmol/L (98-107); Estimated Glomerular Filt Rate > 60 mL/min (>60); Glucose 114 mg/dL (80-110); HEMOLYSIS < 15 (0-50); Potassium 3.3 mmol/L (3.4-5.1); Sodium 139 mmol/L (137-145)
== END ==
PROVIDERS: PCP Family Medicine; Referring Provider Orthopaedic Surgery; Visit Provider Orthopaedic Surgery
DX: Z01.812 Encounter for preprocedural laboratory examination (principal)
CPT/HCPCS: 36415; 80048

== ENCOUNTER 2022-11-15 06:24 | Inpatient (IN) | payer MEDICARE, OTHER, SELFPAY ==
[2022-10-16 15:16] VITALS: BMI 33.5
[2022-11-12 10:13] VITALS: BMI 30.4
[2022-11-15] VITALS (15 sets, daily range): BP systolic 85–112; BP diastolic 43–66; PULSE 83–98; RESP 12–20; TEMP 35.4–37.2; O2SAT 87–96; BMI 30.8
--- NOTE | 2022-11-15 06:00 | DI.RAD.S_ITS ---
PROCEDURE: XR SHOULDER LT MIN 2V INDICATIONS: L Reverse TSA TECHNIQUE: 2 views of the shoulder were acquired. COMPARISON: [facility], CT, CT UE LT WO CON, 09/11/2022, 12:46. [facility], CR, XR SHOULDER LT MIN 2V, 08/23/2022, 16:45. [facility], CR, SHOULDER MINIMUM 2VIEW RIGHT, 03/22/2016, 11:13. FINDINGS: Bones: Reverse left shoulder arthroplasty. Hardware projects in the expected location. No fractures or dislocations. No suspicious bony lesions. [id number] degenerative AC joint. Visualized ribs appear intact. Soft tissues: No suspicious soft tissue calcifications. IMPRESSION: Expected appearance of the reverse left shoulder arthroplasty. Dictated by: Arturo Shah M.D. on 11/15/2022 at 12:34 Approved by: Arturo Shha M.D. on 11/15/2022 at 12:39
--- NOTE | 2022-11-15 07:18 | PM.PREOP ---
Pre-operative Note Interval Note History & Physical reviewed/Exam performed by Physician: Yes Changes to H&P: No
[2022-11-15] MEDS: CELECOXIB 200 MG CAPSULE PO (07:20)
[2022-11-15] MEDS: LACTATED RINGERS 1,000 ML 42 ML IV (07:21)
[2022-11-15 07:54] LABS: COVID19 -Nasal RAPID Negative (Negative)
--- NOTE | 2022-11-15 08:02 | SUR.PREOP ---
Block start time 0745 with time out. Monitoring initiated and maintained throughout procedure. Oxygen and medications given per anesthesiologist instructions. Patient remained stable throughout procedure, no adverse reactions noted. Block end time 0755.
[2022-11-15] MEDS: CEFAZOLIN 2 GM/100 ML PREMIX 100 ML IV ×2 (08:38→18:00)
[2022-11-15] MEDS: TRANEXAMIC ACID 1,000 MG in SODIUM CHLORIDE 0.9% 100 ML 200 MG IV (08:40)
--- NOTE | 2022-11-15 08:50 | SUR.OPER ---
Beach chair with Fahad/Mino shoulder positioner. Lower body on padded OR bed. Head in foam padded head cradle, secured with straps. Non-operative arm secured <90 degrees abduction. Pillow under knees. Safety belt at thigh. Cloth tape over blanket over lower legs. Pt positioned per direction and supervision of Dr Sepulveda.
[2022-11-15] MEDS: BUPIVACAINE 0.25% (PF) 60 ML, EPINEPHrine 0.3 MG INJ (10:28)
--- NOTE | 2022-11-15 10:42 | PM.OP.1 ---
Operative Date/Time/Diagnoses Date of procedure: 11/15/22 Time of procedure: 10:42 Pre-op diagnosis: Left shoulder glenohumeral arthritis Post-op diagnosis: same Procedure & Clinicians Procedure: Left reverse total shoulder arthroplasty Same procedure as scheduled: Yes Indications: Indications: This is a 77-year-old male who has rotator cuff arthropathy. Symptoms have been present for years, insidious onset. Patient has failed conservative therapy including injections, physical therapy, anti-inflammatories and activity modification. After extensive discussion in clinic, they wished to go forward with surgery. Risks and benefits were described including the risk of infection, bleeding, damage to internal structures including nerves. We also discussed the risk of failure of surgery and the need for revision surgery as well as the risk of anesthesia. The patient expressed understanding with these risks and wished to go forward with surgery. Surgeon: Henrique Sepulveda Syrup Blender: Marta Trinidad Anesthesia Type: General Operative Notes Findings: Findings: Osteoarthritis of the glenoid and humeral head partially torn rotator cuff as noted on preoperative imaging and under direct visualization Closure Type: primary Specimen(s): none sent Prosthetic devices, grafts, tissues, transplants, or devices: [employer]plants Full wedge augmented base plate, 29 mm, 15 degree angle Standard glenosphere, 36 mm Perform humeral stem, size 4+ (135?) +3 mm polyethylene, symmetric Estimated Blood Loss (mL): 50 Blood products transfused: none Procedure in detail: Operative note: Patient was seen in the preoperative holding unit. The correct left shoulder was identified and marked with my initials. Again we discussed the risks and benefits of surgery and they wished to go forward with surgery. The patient was brought back to the operating room and placed supine on the operating table. He underwent smooth endotracheal intubation. All prominences were padded and they were placed into the beach chair position. Intravenous antibiotics were given. The left shoulder was then prepped with the standard sterile preparation and draping. A time-out was then performed in my initials were again identified on the correct shoulder. 1 g of IV tranexamic acid was given. A standard deltopectoral incision was made. Skin flaps were made. The cephalic vein was identified and retracted laterally. This was protected throughout the remainder of the case. Sharp dissection was made along the deltoid, subacromial and subcoracoid space to release adhesions. The conjoined tendon was identified and the axillary nerve was palpated and continuous using the tug test. It was protected throughout the remainder of the case. A brown retractor was placed underneath the deltoid muscle and a darach retractor underneath the conjoint tendon. The anterior circumflex artery and associated veins on the lower border of the subscapularis were identified and tied off using 0-Vicryl. The biceps tendon was identified in the bicipital groove. This was released from its sheath, and taken from its origin on the glenoid and tied into the pectoralis tendon for a solid tenodesis. We then began a subscapularis peel. The subscapularis was tagged with an Ethibond suture. A 360 degree circumferential release of the subscapularis was performed with protection of the axillary nerve. The coracohumeral ligament was released at the base of the coracoid. The coracoacromial ligament was left intact. The shoulder was then dislocated. Osteophytes were removed using combination of rongeur and osteotome. The rotator cuff was noted to be partially intact. An intramedullary guide was used set at version of 30?. Using an oscillating saw a conservative humeral head cut was made. Impaction reamers were reamed up to a size 4 stem set at angle 135 ?. A neck protector was placed. Attention was then turned to the glenoid. After retracting the humeral head posteriorly a circumferential release was performed of the capsule with protection of the axillary nerve. The labrum was then released starting at the biceps anchor and going around the rim a small amount of triceps was released from the inferior glenoid. A center guide pin was then placed using the guide, followed by Reamer. After adequate cartilage was removed the center drill hole was drilled and measured. The base plate was then implanted and screwed into place. The superior drill hole was drilled and filled in a nonlocking fashion, followed by the inferior and anterior holes in locking fashion. A 36 standard glenosphere was then selected and screwed into place onto the base plate. Turning back to the humerus, the humeral head was delivered and trialed with a +3 polyethylene. The arm was taken through range of motion and this was felt to be stable. The trial was then removed and a dilute Betadine wash was then performed with 1 L of sterile saline. Before placing the final implant, drill holes were made in the bicipital groove for the subscapularis repair, and sutures were passed through the drill holes. The final stem with high offset tray was then impacted into the humerus. The shoulder was then reduced and again brought through range of motion and was felt to be stable. The interval was then closed using 0-Vicryl. The subscapularis was then repaired using a modified racking hitch with nice loupes. The deltopectoral interval was then closed with #2 Ethibond. The skin was closed with 2-0 PDS and ariana followed by Aquacel dressing. Patient was awoken from anesthesia and brought back to the postoperative recovery unit without issue. They were placed into a sling. Assisting participation: This operation could not have been safely performed (without compromising the technical results or length of the procedure) without the assistance of a skilled cardiovascular surgical tech. The cardiovascular surgical tech was medically necessary for proper positioning, retraction and manipulation of instruments, proper exposure, graft prep, and manipulation of tissue. Complications: none Post-operative Condition: stable Disposition: PACU Plan for aftercare: Postoperative instructions: Sling to remain on for 6 weeks. No external rotation past neutral for 6 weeks. Okay for him to come off her shower. Okay to shower over the Aquacel dressing. If any water gets underneath the dressing, remove the dressing. First postoperative visit in 2 weeks.
--- NOTE | 2022-11-15 11:38 | SUR.PHASEI ---
Addendum entered by Mag Zhou R.N. 11/15/22 12:04: 1200: Report given to TINO Castro with time allowed for questions. Pt FLACC 0 and denied pain most of recovery, just prior to giving report started getting agitated and stating PAIN, PRN given pt stated that's not enough!, ice/elevation and distraction, and informed pt that the nurses on the floor will give excellent care and will continue to monitor and treat his pain as needed. Pt left unit with RN assist via bed to room 207 in stable condition and all personal belongings. Will transfer care now. Original Note: 1135: Pt A&Ox4, denies pain, VSS, and ready to transfer to room. RN busy at this time, will return call when available.
[2022-11-15] MEDS: OXYCODONE IR 5 MG TABLET PO (11:52)
[2022-11-15] MEDS: OXYCODONE IR 10 MG TABLET PO ×2 (14:43→20:02)
--- NOTE | 2022-11-15 14:55 | PT.IIE ---
Current Diagnoses Primary osteoarthritis, left shoulder (11/15/22) Surgery Performed Operation Date: 11/15/22 07:45 Actual Procedures p Reverse Total Shoulder Arthroplasty w/ biceps tenodesis(Left) - Henrique Sepulveda MD Surgical History (Last Updated 11/08/22 @ 11:59 by Sabrina Urban RN) History of ankle surgery History of back surgery History of carpal tunnel repair History of lumbar fusion History of lumbar fusion (05/10/22) History of prosthetic unicompartmental arthroplasty of right knee History of tonsillectomy History of total replacement of right shoulder joint Hx of foot surgery Hx of laminectomy (10/2012) Status post cholecystectomy Status post knee surgery Medical History (Last Updated 11/08/22 @ 18:58 by Edilberto Snell DO) Acute exacerbation of chronic bronchitis Adhesive capsulitis Anxiety Arthritis (Unknown) Chronic ankle pain, bilateral Chronic pain syndrome (Unknown) Colles' fracture Depression (Unknown) Fibromyalgia Foraminal stenosis of lumbar region Hepatitis C (Unknown) Hypertension (Unknown) Impotence (Unknown) Kidney stones (Unknown) Left lateral epicondylitis Left shoulder strain Migraines (Unknown) Oral lesion Peripheral neuropathy Pneumonia (~2017) Preoperative clearance Prostate cancer (Unknown) PTSD (post-traumatic stress disorder) (Unknown) Restless leg syndrome (Unknown) Rheumatoid arthritis Right wrist pain Right wrist sprain Sinus drainage Skin cancer (Unknown) Physical Therapy Inpatient Evaluation/Re-Eval M1 PT/OT-IP Prior Functional Status Start: 11/15/22 16:58 Freq: NEEDED Status: Active Protocol: Document 11/15/22 14:55 AB (Rec: 11/15/22 17:23 AB [id number]) Medical Review Prior Functional Status Medical History Reviewed Yes Communication able to make needs known; [place] Mobility and Gait pt stated that he is independent with all mobilities and ambulation without AD but occasionally uses a SPC depending on back pain. Social History Household Members spouse Living Arrangements Mobile home Number of Floors (Floors) One Floor Number of Stairs To Enter/Railing? ramp to enter Home Environment Standard Height Toilet,Walk in Shower,Built-In Shower Seat, Ramp Home Equipment Straight Cane,Hand Held Shower ,Grab Bars In Shower Additional Social History Comment pt stated that spouse will not be able to provide physical assistance pt stated that he has a wedge pillow that he uses to keep his head elevated M2 PT-IP Current Condition Start: 11/15/22 16:58 Freq: NEEDED Status: Active Protocol: Document 11/15/22 14:55 AB (Rec: 11/15/22 17:23 AB [id number]) Physical Therapy Current Condition Current Condition Evaluation Date 11/15/22 Treatment Diagnosis s/p L TSA reverse; difficulty in walking Onset Date 11/15/22 M3 PT-IP Subjective Start: 11/15/22 16:58 Freq: NEEDED Status: Active Protocol: Document 11/15/22 14:55 AB (Rec: 11/15/22 17:23 AB [id number]) Subjective Physical Therapy Visit Type Type Initial Evaluation Visit Start Time 14:55 Visit Stop Time 15:30 Total Visit Minutes 35 Number of LINING LAYER Visits 0 Physical Therapy Visit Comments Patient Comments agreeable to do PT Therapy Pain Assessment Pain When Pain Assessed At Rest Pain Present Pain Present Pain Reported Location LUE Intensity 4 Scale Used Numeric (0 - 10) Pain Management Techniques Distraction,Modification of Treatment,Re-positioning, Timing of Activity with Medications Back Intensity 6 Scale Used Numeric (0 - 10) Pain Management Techniques Distraction,Modification of Treatment,Re-positioning, Timing of Activity with Medications M4 PT-IP Mobility and Gait Start: 11/15/22 16:58 Freq: NEEDED Status: Active Protocol: Document 11/15/22 14:55 AB (Rec: 11/15/22 17:23 AB [id number]) PT-Bed Mobility Assessment Supine to Sit Supine to Sit Standby Assistance,Head of Bed Elevated Sit to Supine Sit to Supine Standby Assistance,Head of Bed Elevated PT-Transfer Assessment Sit to and From Stand Sit to and from Stand Standby Assistance,1 Person Assistance,Use of Upper Extremities Equipment Transfer Assistive Device None,Gait Belt Orthotic/Prosthetic Devices or Brace: Yes Comments Mobility Comments educated pt regarding shoulder precautions. pt completed supine to sit HOB elevated SBA . assisted pt with sling adjustment/management. educated on shoulder/elbow/ wrist exercises. pt completed sit to stand SBA and ambulated without AD ~ 100 ft SBA. unsteady waddling gait but without LOB. pt requested to go back to bed. completed sit to supine SBA. positioned pt in bed. call light and table placed within reach. initially, per PA, ortho doctor's protocol was no pendulum for reverse shoulder. Today, another PA clarified with PT that Dr. Villasenor's protocol for TSA for reverse is ok for pendulum exercises. will f/u with pt next tx session. Gait Assessment Gait Gait Assistance Required: Standby Assistance Distance (Feet) 100 Able to Maintain Weight Bearing Status Yes During Gait Assistive Devices Assistive Device None,Gait Belt Orthotic/Prosthetic Devices or Brace: Yes Gait Deviations General Gait Pattern Antalgic,Decreased Stride Length,Decreased Feet Clearance,Step-to Gait Factors Limiting Gait Function Factors Limiting Gait Function Decreased Activity Tolerance, Decreased Strength,Limited Range of Motion,Pain,Poor Balance PT-Balance Assessment Sitting Balance and Reactions Static Sitting Balance Ability Normal Dynamic Sitting Balance Ability Normal Standing Balance and Reactions Static Standing Balance Ability Good Dynamic Standing Balance Ability Fair Device Used without AD M5 PT-IP Objective Assessments Start: 11/15/22 16:58 Freq: NEEDED Status: Active Protocol: Document 11/15/22 14:55 AB (Rec: 11/15/22 17:23 AB [id number]) Orientation Orientation/Cognition Level of Alertness Alert Orientation Name,Situation Language Function Ability No Deficits Noted Safety Awareness Decreased Safety Awareness Memory Description No Deficits Noted Gross Range of Motion Lower Extremity ROM Assessment Within Functional Limits Strength Upper Extremity Strength Assessment Within Functional Limits Sensation Assessment Sensation Gross Sensation Left UE Impaired Sensation Description Numbness Comments Sensation Comments still has LUE numbness and no elbow motor control back yet at this time M6 PT-IP Treatment Start: 11/15/22 16:58 Freq: NEEDED Status: Active Protocol: Document 11/15/22 14:55 AB (Rec: 11/15/22 17:23 AB [id number]) Physical Therapy Treatment Exercises Exercises Elbow Flexion/Extension,Wrist ROM,Hand ROM Education Education Provided Precautions,Weight Bearing Status,Post-Op Packet,Safety Brace Education Sunil,Natan,Patient M7 PT-IP Assessment and Plan Start: 11/15/22 16:58 Freq: NEEDED Status: Active Protocol: Document 11/15/22 14:55 AB (Rec: 11/15/22 17:23 AB [email or web address]) PT Summary Assessment and Plan Potential Rehabilitation Potential Fair Status of Condition at Evaluation Evolving Summary Impairments Pain,ROM,Strength,Balance, Coordination,Sensation,Tone, Cognition,Bed Mobility, Transfers,Gait,Activity Tolerance Assessment Summary pt requiring SBA with mobility . pt plans to go home with spouse to assist as needed. will continue to assess progress. Goals Bed Mobility Goal Independent Transfer Goal Independent Gait Goal Independent Gait Distance 200 Days to Meet Goals 5 Frequency of Treatment Frequency Of Treatment Twice a Day Treatment Plan Physical Therapy Treatment Plan Bed Mobility Training,Transfer Training,Gait Training, Therapeutic Exercise,Balance Retraining,Post Op Education, Discharge Planning,Hot or Cold Pack,Neuromuscular Re-ed, Coordination Retraining,Manual Therapy Precautions Shoulder Precautions Sling,PROM,Internal Rotation to Body,No External Rotation, No Abduction,Forward Flexion to 90 degrees,Pendulums Weight Bearing Status Weight Bearing Status Non-Weight Bearing Allowed Weight Bearing Amount (enter % LUE NWB or #) (%) Recommendations To Nursing Amount of Assist Needed 1 Person Assist Discharge Recommendations PT Discharge Recommendations Home with Assistance, Outpatient PT Transportation Needs at Discharge Private Vehicle
--- NOTE | 2022-11-15 15:07 | PC.NURSE ---
Pt arrived from PACU Alert/drowsy Left shoulder aquacell dsg CDI. Med for discomfort at 1445 Call light w/in reach, bed alarm on for pt safety. Continue w/plan of care.
[2022-11-15] MEDS: AMLODIPINE 5 MG TABLET PO (20:05)
[2022-11-15] MEDS: sulfaSALAzine 500 MG TABLET 1000 MG PO (20:05)
[2022-11-15] MEDS: DOCUSATE 100 MG CAPSULE PO (20:05)
[2022-11-15] MEDS: HYDROMORPHONE 0.5 MG INJ IV (22:47)
[2022-11-15] MEDS: IBUPROFEN 400 MG TABLET PO (22:47)
[2022-11-16] MEDS: OXYCODONE IR 5 MG TABLET 15 MG PO ×4 (00:59→12:54)
[2022-11-16] MEDS: CEFAZOLIN 2 GM/100 ML PREMIX 100 ML IV (00:59)
[2022-11-16] MEDS: HYDROMORPHONE 0.5 MG INJ IV ×4 (01:42→13:28)
[2022-11-16 02:39] VITALS: BP 117/69; PULSE 93; RESP 14; O2SAT 92
[2022-11-16 03:47] LABS: Hematocrit 25.4 % (41-53); Hemoglobin 8.9 g/dL (13.5-17.5); Mean Corpuscular HGB Conc 34.9 % (30-36); Mean Corpuscular Hemoglobin 27.8 PG (26-34); Mean Corpuscular Volume 79.6 fL (80-100); Platelet Count 227 X10^3/uL (150-400); Red Blood Cell Count 3.19 X10^6/uL (4.5-5.9); Red Cell Distribution Width 15.5 % (11.6-14.8); White Blood Cell Count 11.1 X10^3/uL (4.5-11.0)
[2022-11-16] MEDS: PANTOPRAZOLE DR 40 MG TABLET PO (05:21)
[2022-11-16] MEDS: IBUPROFEN 400 MG TABLET PO (06:38)
[2022-11-16] MEDS: DOCUSATE 100 MG CAPSULE PO (08:59)
[2022-11-16] MEDS: hydroCHLOROthiazide 25 MG TABLET 12.5 MG PO (08:59)
[2022-11-16] MEDS: sulfaSALAzine 500 MG TABLET 1000 MG PO (08:59)
[2022-11-16] MEDS: polyethylene glycoL 3350 17 GM POWD.PACK PO (09:00)
[2022-11-16] MEDS: METOPROLOL ER 50 MG TABLET 100 MG PO (09:08)
[2022-11-16] MEDS: FLUoxetine 10 MG CAPSULE 30 MG PO (09:44)
[2022-11-16 09:46] VITALS: BP 129/74; PULSE 96; RESP 20; TEMP 35.8; O2SAT 93
--- NOTE | 2022-11-16 10:45 | PT.IPTN ---
Current Diagnoses Primary osteoarthritis, left shoulder (11/15/22) Surgery Performed Operation Date: 11/15/22 07:45 Actual Procedures p Reverse Total Shoulder Arthroplasty w/ biceps tenodesis(Left) - Henrique Sepulveda MD Physical Therapy Treatment Note M2 PT-IP Current Condition Start: 11/15/22 16:58 Freq: NEEDED Status: Active Protocol: Document 11/15/22 14:55 AB (Rec: 11/15/22 17:23 AB [id number]) Physical Therapy Current Condition Current Condition Evaluation Date 11/15/22 Treatment Diagnosis s/p L TSA reverse; difficulty in walking Onset Date 11/15/22 M3 PT-IP Subjective Start: 11/15/22 16:58 Freq: NEEDED Status: Active Protocol: Document 11/16/22 10:45 AB (Rec: 11/16/22 13:52 AB [id number]) Subjective Physical Therapy Visit Type Type Treatment Note Visit Start Time 10:45 Visit Stop Time 11:10 Total Visit Minutes 25 Number of SOLAR SALES REPRESENTATIVE AND ASSESSOR Visits 0 Physical Therapy Visit Comments Patient Comments agreeable to do PT Therapy Pain Assessment Pain When Pain Assessed At Rest Location Back Scale Used pain scale not stated M4 PT-IP Mobility and Gait Start: 11/15/22 16:58 Freq: NEEDED Status: Active Protocol: Document 11/16/22 10:45 AB (Rec: 11/16/22 13:52 AB [id number]) PT-Transfer Assessment Sit to and From Stand Sit to and from Stand Standby Assistance Equipment Orthotic/Prosthetic Devices or Brace: Yes Comments Mobility Comments pt in the hallway walking with NAC. PT took over. pt ambulated ~ 150 ft without AD back to his room. presents with wide KALLI and waddling gait. pt requested for sling to be adjusted. pt training for sling management, pendulum, L elbow/ hand/wrist exercises. pt was able to take sling off. performed pendulum but with cues, performed elbow/wrist/ hand exercises. pt able to put sling back on but with min A for hanna and cues for positioning. pt stated that spouse will be able to assist him with sling. pt without further concerns. Gait Assessment Gait Gait Assistance Required: Standby Assistance Distance (Feet) 150 Able to Maintain Weight Bearing Status Yes During Gait Assistive Devices Assistive Device None Orthotic/Prosthetic Devices or Brace: Yes Gait Deviations General Gait Pattern Decreased Stride Length, Decreased Feet Clearance,Wide Based Gait Factors Limiting Gait Function Factors Limiting Gait Function Decreased Strength,Limited Range of Motion,Pain,Poor Balance,Poor Safety Awareness M5 PT-IP Objective Assessments Start: 11/15/22 16:58 Freq: NEEDED Status: Active Protocol: Document 11/15/22 14:55 AB (Rec: 11/15/22 17:23 AB [id number]) Orientation Orientation/Cognition Level of Alertness Alert Orientation Name,Situation Language Function Ability No Deficits Noted Safety Awareness Decreased Safety Awareness Memory Description No Deficits Noted Gross Range of Motion Lower Extremity ROM Assessment Within Functional Limits Strength Upper Extremity Strength Assessment Within Functional Limits Sensation Assessment Sensation Gross Sensation Left UE Impaired Sensation Description Numbness Comments Sensation Comments still has LUE numbness and no elbow motor control back yet at this time M6 PT-IP Treatment Start: 11/15/22 16:58 Freq: NEEDED Status: Active Protocol: Document 11/16/22 10:45 AB (Rec: 11/16/22 13:52 AB [id number]) Physical Therapy Treatment Exercises Exercises Shoulder Pendulums,Elbow Flexion/Extension,Wrist ROM, Hand ROM Education Education Provided Precautions,Safety Brace Education [place],Patient M7 PT-IP Assessment and Plan Start: 11/15/22 16:58 Freq: NEEDED Status: Active Protocol: Document 11/16/22 10:45 AB (Rec: 11/16/22 13:52 AB [id number]) PT Summary Assessment and Plan Potential Rehabilitation Potential Fair Summary Impairments Pain,ROM,Strength,Balance, Coordination,Sensation,Tone, Cognition,Bed Mobility, Transfers,Gait,Activity Tolerance Progress Towards Goals Progressing Toward Goals Assessment Summary pt requiring SBA with mobility and plans to go home with spouse to assist him. pt will need outpt PT. Goals Bed Mobility Goal Independent Transfer Goal Independent Gait Goal Independent Gait Distance 200 Days to Meet Goals 5 Frequency of Treatment Frequency Of Treatment Twice a Day Treatment Plan Physical Therapy Treatment Plan Bed Mobility Training,Transfer Training,Gait Training, Therapeutic Exercise,Balance Retraining,Post Op Education, Discharge Planning,Hot or Cold Pack,Neuromuscular Re-ed, Coordination Retraining,Manual Therapy Precautions Shoulder Precautions Sling,PROM,Internal Rotation to Body,No External Rotation, No Abduction,Forward Flexion to 90 degrees,Pendulums Other Precautions clarification obtained from ortho PA Walker yesterday that per Dr. Villasenor's TSA or TSA reverse, pt is allowed to do pendulum, elbow/hand/wrist exercises. Weight Bearing Status Weight Bearing Status Non-Weight Bearing Allowed Weight Bearing Amount (enter % LUE NWB or #) (%) Recommendations To Nursing Amount of Assist Needed 1 Person Assist Discharge Recommendations PT Discharge Recommendations Home with Assistance, Outpatient PT Transportation Needs at Discharge Private Vehicle
--- NOTE | 2022-11-16 10:59 | CM.DANOTE ---
DCP: Case received, EMR reviewed and met with patient. Introduced self and role. Was able to obtain information regarding patient's baseline activity level at home prior to surgery. DCP assessment completed with information currently available. Patient is a 77 year old male who admitted yesterday morning to the care of the orthopedic team. PCP: Dr. Snell. Payer: confirmed: Medicare/[employer]. Patient came to the hospital via private vehicle for a surgical procedure. Patient had left reverse total shoulder arthroplasty. Patient has history of left shoulder glenohumeral arthritis. Met with patient in his room. He is alert and oriented, he was laying in bed, sling intact to left arm. Stated, he was having a lot of pain, nurse had given him pain meds. Patient resides here in [place] with spouse, Lanette. At his baseline, he drives, short distances, other times his spouse takes him to appointments. At his baseline, he uses no DME. P: DCP to continue to follow. Plan is home when deemed medically stable. Jessica Hernandez RN/In Home Caregiver Discharge Planning/Care Management CM Discharge Assessment Start: 11/16/22 10:57 Freq: Status: Active Protocol: Document 11/16/22 10:57 (Rec: 11/16/22 10:59 [id number]) Discharge Planning Assessment Assigned Cath Lab Tech Jessica Hernandez RN/In Home Caregiver Advance Directives? No History Provided By Patient,Significant Other, Medical Record Prior Living Arrangements Mobile home Household Members spouse Type of transporation used prior to Drives own vehicle admit Comment Patient was driving short distances. Independent with ADL's Yes Is patient alert and oriented? Yes Caregiver for Another No Barriers to Discharge No Discharge Plan Home Transportation Arrangement Spouse If patient plan is home with home health Not as of yet. : Has signed face to face form been completed? Whiteboard Updated in Patient Room with Yes name and ext. # of Cath Lab Tech Review Status In Process Next Review Type Continued Stay Review Pre-Anesthesia Assessment Start: 11/08/22 11:00 Freq: Status: Complete Protocol: Document 11/12/22 10:13 CAB (Rec: 11/08/22 12:01 CAB [id number]) Pre-Anesthesia Assessment Preferred Name Kip Patient Information Reviewed Via Phone Assessment Assessment Completed With Patient Diagnostic Results BMP/CMP,CBC,EKG Comment Labs/EKG @ 09/28/22, COVID screen @ [facility] 11/13/22 Primary Care Provider Edilberto Snell Medical Clearance Received Yes Seen Specialist in Last 12 Months Yes Specialist Seen Orthopedist,Other Comment PCP pre-op 11/08/22 and clearance scanned Primary Language Gibraltarian Preferred Language Gibraltarian Ent Consultant Required No Height 5 ft 7.5 in Weight 197 lb 0.011 oz Body Mass Index (BMI) 30.4 Hearing Ability Hearing Impaired,Use of Hearing Aid Visual Assist Glasses Dentition Type Full- Upper & Lower Barriers to Learning None Hx Anesthesia Reactions Yes: Awoke during mulitple surgeries Hx Family Anesthesia Reaction No Hx Malignant Hyperthermia No Hx Blood Transfusions Yes: 1969 Hx Blood Transfusion Reaction No Anesthesia Review Requested Yes: Surgeon office requested re: Head injury 8 years ago Vice President Of Academic Affairs No alcohol intake former Alcohol Intake Frequency Other: Sober since 1984 Smoking Status Former smoker Tobacco type cigarettes how long ago did patient quit smoking Quit 1984 Substance Use Type does not use,former substance user Pain Present Pain Reported Musculoskeletal Symptoms Abnormal Gait,Back Pain, Difficulty Walking,Joint Pain, Limited Range of Motion History of Falling (Recent or History of No ) Patient is completely paralyzed or No completely immobile Prosthesis or Orthotic Device Cane Mental Status Oriented to own ability Is patient on oxygen? No Does patient have EUGENE/SOB No Hx Sleep Apnea No CPAP/BIPAP use not prescribed Currently Taking a Beta Brittany Yes: Metoprolol Can You Climb a Flight of Stairs Without Yes SOB Hx Chest Pain No Hx SOB No Hx Syncope or Dizziness Yes: Dizziness Anti-Coagulant Therapy No Has a Art Gallery Director No Cardiac Testing No Hx Pacemaker/ICD No Pacemaker Rep Required? No Diet Type At Home Regular Dysphagia No Gastrointestinal Symptoms None Urinary Catheter Present No Hx Urinary Self Catheterization No Diabetes No Hx Drug Resistant Organism Yes: MRSA approx 6-7 years ago , pt does not remember where on the body Presence of External or Internal Medical Yes: Lumbar, ankle Devices Received a COVID vaccine? Yes Received all doses? Yes Marital Status Lives With spouse Current Living Arrangements Mobile home Support System Spouse Does the Patient Have Assistance After Yes Surgery Patient Discharge Plan Description Return Home Comment Pt advised 2 day length of stay per surgeon Feels Safe in Current Environment Yes Been Physically Hurt or Threatened By a No Person in Current Environment Do you have thoughts of harming yourself None or others? Are you currently considering suicide? No Do you have a plan to hurt yourself or No Plan others? Do You Have Any Spiritual Beliefs That No May Affect Your HC Choices? Do You Have Any Cultural Practices That No May Affect Your HC Choices? Comment Gnosticist Who Can We Speak to About Patient's Care Family, friends Identifying Code for Release of Patient Declines to issue Information Health Care Proxy/Next of Kin Lanette () Health Care Proxy Emergency Contact Name Lanette () Emergency Contact Advance Directives? No Power of Transformer Repairer No PAC Instructions Medications to take/avoid, Nasal antibiotic,No ETOH/ petroleum product on skin DOS, NPO,Sensory aids,Sturdy shoes/ comfortable clothes,Do not bring valuables and remove jewelry
--- NOTE | 2022-11-16 19:49 | PC.NURSE ---
Discharge: Pt feels ready to d/c to home. Pt spoke with both PA's at length about his medication. Pt will be going home with both dilaudid and oxy for pain control and may have an injection of dilaudid prior to leaving, this was done. He is voiding with out diff. Dressing to shoulder is c/d/i, has radial pulse present, brisk cap refill, can move fingers. Seen by PT and cleared. He is following his total shoulder precautions and is wearing his sling correctly. Tolerates diet w/out problems. Discharge instructions reviewed. Rx has been esent. Questions answered. Pt d/c to home via auto w/spouse.
--- NOTE | 2022-11-22 08:48 | PM.DS.1 ---
History of Present Illness History of Present Illness Date Patient Seen: 11/16/22 Time Patient Seen: 11:18 Chief complaint: Left TSA Reverse Narrative: see progress note Discharge Providers Provider Date of admission: 11/15/22 06:24 Discharge Date: 11/16/22 Primary care physician: Edilberto Snell DO Consults: 11/12/22 10:35 Consult to Anesthesiology Routine Comment: Consulting Provider: Anesthesiologist Reason for consultation: Surgeon office requeste re: Head injury 8 years ago 11/15/22 06:00 Consult to Anesthesiology Routine Comment: Consulting Provider: Anesthesiologist Reason for consultation: Regional block for post operative pain control 11/15/22 10:50 Consult to Discharge Planning Routine Comment: Consult to Physical Therapy Evaluate & Treat Comment: Physician Instructions: Evaluate and Treat Discharge provider: Tristan Singh PA-C Summary Hospital Course Discharge Diagnosis: Left shoulder glenohumeral arthritis Hospital Course: [address] [address] Operative Note Patient: Barrett Tam MR#: [id number] : 1945 Acct:[id number] Age/Sex: 77 / M ? Date of Service: 11/15/22 Provider:?Henrique Sepulveda MD Operative Date/Time/Diagnoses Date of procedure: 11/15/22 Time of procedure: 10:42 Pre-op diagnosis: Left shoulder glenohumeral arthritis Post-op diagnosis: same Procedure & Clinicians Procedure: Left reverse total shoulder arthroplasty Same procedure as scheduled: Yes Indications: Indications:? This is a 77-year-old male who has rotator cuff arthropathy.? Symptoms have been present for years, insidious onset.? Patient has failed conservative therapy including injections, physical therapy, anti-inflammatories and activity modification.? After extensive discussion in clinic, they wished to go forward with surgery.? Risks and benefits were described including the risk of infection, bleeding, damage to internal structures including nerves.? We also discussed the risk of failure of surgery and the need for revision surgery as well as the risk of anesthesia.? The patient expressed understanding with these risks and wished to go forward with surgery. Surgeon: Henrique Sepulveda Microelectronics Engineer: Marta Trinidad Anesthesia Type: General Status at Discharge Cognitive/behavioral status at discharge: oriented Exam Vital Signs (past 8 hours): Oxygen Delivery Method Room Air Oxygen Flow Rate 0 Narrative Exam Narrative: see progress note Const General: cooperative Objective Labs 11/16/22 03:35 PFS Medical History Acute exacerbation of chronic bronchitis Adhesive capsulitis Anxiety Arthritis (Unknown) Chronic ankle pain, bilateral Chronic pain syndrome (Unknown) Colles' fracture Depression (Unknown) Fibromyalgia Foraminal stenosis of lumbar region Hepatitis C (Unknown) Hypertension (Unknown) Impotence (Unknown) Kidney stones (Unknown) Left lateral epicondylitis Left shoulder strain Migraines (Unknown) Oral lesion Peripheral neuropathy Pneumonia (~2017) Preoperative clearance Prostate cancer (Unknown) PTSD (post-traumatic stress disorder) (Unknown) Restless leg syndrome (Unknown) Rheumatoid arthritis Right wrist pain Right wrist sprain Sinus drainage Skin cancer (Unknown) Surgical History History of ankle surgery History of back surgery History of carpal tunnel repair History of lumbar fusion History of lumbar fusion (05/10/22) History of prosthetic unicompartmental arthroplasty of right knee History of tonsillectomy History of total replacement of right shoulder joint Hx of foot surgery Hx of laminectomy (10/2012) Status post cholecystectomy Status post knee surgery Family History Father Heart disease Mother No problems noted. Social History marital status: household members: spouse occupational status: previously employed Smoking Status: Former smoker Tobacco: How many years used: 20 quit status: has quit before alcohol intake: former substance use type: former substance user and marijuana Discharge Assessment & Plan Assessment and Plan Assessment: stable Plan of Treatment: per protocol DC home today Discharge Plan Discharge Plan Patient Disposition: Home Discharge orders & Medications Prescriptions: New polyethylene glycol 3350 17 gram Powder In Packet 17 g PO DAILY Qty: 14 0RF ibuprofen 400 mg Tablet 400 mg PO Q4HR PRN (Reason: Pain, Mild (1-3)) Qty: 60 0RF oxycodone 5 mg Tablet 15 mg PO Q3HR PRN (Reason: Pain, Moderate (4-6)) Qty: 60 0RF hydromorphone [Dilaudid] 2 mg tablet 2 mg PO Q6H PRN (Reason: pain) Qty: 30 0RF Rx Instructions: Take 1 tablet every 6 hours as needed for breakthrough pain ondansetron 4 mg Tablet,Disintegrating 4 mg PO Q4HR PRN (Reason: Nausea And Vomiting) Qty: 20 0RF aspirin 81 mg capsule 81 mg PO BID Qty: 60 0RF Continued fluoxetine 10 mg capsule See Rx Instructions .ROUTE .COMPLEX Qty: 90 3RF Dose Instruction: take 1 capsule by mouth once daily WITH 20MG CAP DAILY TOTAL 30 MG DAILY Rx Instructions: take 1 capsule by mouth once daily WITH 20MG CAP DAILY TOTAL 30 MG DAILY fluoxetine 20 mg capsule 20 mg PO DAILY Qty: 90 3RF Rx Instructions: Take with 10 mg to complete 30 mg dose albuterol sulfate 2.5 mg /3 mL (0.083 %) solution for nebulization 2.5 mg Continuous Nebulization Q6HP PRN (Reason: shortness of breath or wheezing) Qty: 360 2RF meclizine 25 mg tablet 25 mg PO TID PRN (Reason: dizziness) Qty: 30 0RF Disabled Parking Permit 1 1 % SEEINSTR Rx Instructions: Valid for 5 years sulfasalazine 500 mg tablet 1,000 mg PO BID amlodipine 5 mg tablet 5 mg PO BEDTIME Label Comments: pt received dose in hospital 11/10/19 early AM admit to valacyclovir 1 gram tablet 1,000 mg PO Q8H PRN (Reason: Breakout) metoprolol succinate 100 mg tablet extended release 24 hr 100 mg PO DAILY omeprazole 40 mg capsule,delayed release(DR/EC) 40 mg PO DAILY Rx Instructions: take 1 capsule by mouth once daily hydrochlorothiazide 25 mg tablet 12.5 mg PO QAM losartan 100 mg tablet 100 mg PO DAILY Discontinued oxycodone 10 mg tablet 10 mg PO QID PRN (Reason: chronic pain) Qty: 120 0RF Rx Instructions: Max 4 per day ibuprofen 200 mg Tablet 400 mg PO DAILY PRN (Reason: Pain) Follow up/Referrals: Henrique Sepulveda MD [Physician] - As previously scheduled (Follow up w/ Dr Sepulveda on 11/26/2022 @ 3:50 pm at [facility] Edilberto Snell, DO [Primary Care Provider] - Diet/Activity/Treatments Diet: Diet as Tolerated Activity: Sling at all times. May have off to shower. Cold/Heat Therapy: Ice to shoulder as needed for pain. Skin/Wound/Dressing Care Report to your healthcare provider any signs of infection, such as:: chills, fever, night sweats, unusual drainage and unusual redness Dressing: May shower. Leave Aquacel dressing in place until follow up in office. No bathing or otherwise soaking incision. Call the office if the dressing becomes saturated inside. Visit Report/Discharge Packet Instructions: How to Use a Sling, DI for Constipation, How to Prevent Falls, DI for Prescription Opioid Use, DI for Shoulder Replacement Stand Alone Forms: Patient Portal/API, Stroke Signs & Symptoms, Surgery Discharge Discharge Data Primary Care Provider: Edilberto Snell Quality VTE Deep Vein Thrombosis/Pulmonary Embolism Present on Admission: No
== END 2022-11-16 13:55 | disposition home or self-care (01) | DRG 483 ==
PROVIDERS: Admitting Provider Orthopaedic Surgery; PCP Family Medicine; Referring Provider Orthopaedic Surgery; Visit Provider Orthopaedic Surgery
PROC: 0RRK00Z Replacement of Left Shoulder Joint with Reverse Ball and Socket Synthetic Substitute, Open Approach (ICD-10-PCS; CPT 23472; principal; 2022-11-15 07:45)
DX: M19.012 Primary osteoarthritis, left shoulder (principal); M75.112 Incomplete rotator cuff tear or rupture of left shoulder, not specified as traumatic; Z20.822 Contact with and (suspected) exposure to COVID-19; Z87.891 Personal history of nicotine dependence
CPT/HCPCS: 64415; 73030; 85027; 87635; 97162; 97530; C1776; C9803; J0171; J0690; J1100; J1170; J1885; J2250; J2405; J2704; J3010

== ENCOUNTER 2022-11-30 13:52 | Emergency (ER) | payer MEDICARE, OTHER, SELFPAY ==
[2022-11-15 12:10] VITALS: BMI 30.8
[2022-11-30 14:21] VITALS: BP 156/75; PULSE 71; RESP 16; TEMP 37.1; O2SAT 99; BMI 29.7
--- NOTE | 2022-11-30 14:29 | DI.RAD.S_ITS ---
PROCEDURE: XR SHOULDER LT MIN 2V INDICATIONS: fall out of bed/surgery t-14/ check hardware TECHNIQUE: To views of the shoulder were acquired. COMPARISON: [facility], CR, XR SHOULDER LT MIN 2V, 11/15/2022, 10:37. [facility], CR, XR SHOULDER LT MIN 2V, 08/23/2022, 16:45. FINDINGS: Bones: No acute fractures or dislocations but there is evidence of an old healed distal left clavicular fracture and also prior left total shoulder arthroplasty. There is no evidence of device loosening or disruption.. No suspicious bony lesions. Visualized ribs appear intact. Soft tissues: No suspicious soft tissue calcifications. Minimal postoperative gas is seen within the area of the deltoid musculature lateral left shoulder. IMPRESSION: Recent operative procedure of left total shoulder arthroplasty, showing no evidence of device loosening or disruption after fall from bed. Old healed distal clavicular fracture on the left again noted. Dictated by: Manjinder Rios M.D. on 11/30/2022 at 14:59 Approved by: Manjinder Rios M.D. on 11/30/2022 at 15:02
--- NOTE | 2022-11-30 14:30 | DI.CT.S_ITS ---
PROCEDURE: CT HEAD/BRAIN WO CON INDICATIONS: fall out of bed hit head recent surgery TECHNIQUE: Noncontrast 4.5 mm thick angled axial sections acquired from the foramen magnum to the vertex, with coronal and sagittal reformats. For radiation dose reduction, the following was used: automated exposure control, adjustment of mA and/or kV according to patient size. COMPARISON: [facility], CT, HEAD WITHOUT CONTRAST, 04/12/2015, 13:51. [facility], CT, HEAD WITHOUT CONTRAST, 02/07/2015, 12:34. FINDINGS: Image quality: Excellent. CSF spaces: Basal cisterns are patent. No extra-axial fluid collections. The ventricles are symmetric in size and shape. Brain: No intracranial bleeds or masses. There is cerebral volume loss for age, with resultant ventricular and sulcal prominence. There are periventricular and deep white matter chronic small vessel ischemic changes. There is intracranial internal carotid artery atherosclerosis. Skull and face: Calvarium and visualized facial bones appear intact, without suspicious lesions. Sinuses: Visualized sinuses and mastoids are clear. IMPRESSION: Normal for age, source of current pain after trauma symptoms is not seen. Dictated by: Manjinder Rios M.D. on 11/30/2022 at 14:51 Approved by: Manjinder Rios M.D. on 11/30/2022 at 14:52
--- NOTE | 2022-11-30 14:57 | ED_ITS ---
HPI - Back Pain/Injury <Zenobia Damon PA-C - Last Filed: 11/30/22 17:38> General Chief Complaint: Back Pain/Injury Stated Complaint: Fell out of bed, shoulder pain/L side Time Seen by Provider: 11/30/22 14:00 History of Present Illness HPI Narrative: 77-year-old male history of previous spinal surgery, lumbar foraminal stenosis, peripheral neuropathy, chronic pain on chronic opioid pain medicine with shoulder surgery in early October presents with concern for shoulder pain and low back pain in the setting of a fall out of bed this morning at around 6:00 a.m. patient is also endorsing that he is out of his pain medicines. He states he has not had any for 24-48 hours. He says he did talk to his regular doctor Dr. Snell about it but since he is supposed to have some left Dr. Snell told him he would just have to wait it out. Patient says he is missing about half a bottle and has been unable to find it he looks everywhere in the home and is not sure where it is. He did get increased meds prescribed recently after his surgery from the Orthopedics team but is out of these as well. Patient states he was rolling over in bed this morning got twisted up in the blankets and somehow ended up going onto the floor in a rolling motion. Says he landed on his chest and face and since then his shoulder has been hurting again more than usual and his low back. He states that despite not having pain meds for the last 24-48 hours he was ?doing okay?. But since his fall he feels like his pain has been worse. Denies saddle paresthesias, headache, vision change, dizziness, new numbness tingling or weakness of the lower extremities or any other symptoms. Related Data Home Medications Medication Instructions Recorded Confirmed Disabled Parking Permit 1 % SEEINSTR 11/08/20 11/28/22 sulfasalazine 500 mg tablet 1,000 mg PO BID 11/10/20 11/28/22 amlodipine 5 mg tablet 5 mg PO BEDTIME 11/08/22 11/28/22 valacyclovir 1 gram tablet 1,000 mg PO Q8H PRN Breakout 11/08/22 11/28/22 hydrochlorothiazide 25 mg tablet 12.5 mg PO QAM 11/15/22 11/28/22 losartan 100 mg tablet 100 mg PO DAILY 11/15/22 11/28/22 metoprolol succinate 100 mg 100 mg PO DAILY 11/15/22 11/28/22 tablet,extended release 24 hr omeprazole 40 mg capsule,delayed 40 mg PO DAILY 11/15/22 11/28/22 release Previous Rx's Medication Instructions Recorded fluoxetine 10 mg capsule See Rx Instructions .Route 08/14/22 .COMPLEX #90 caps fluoxetine 20 mg capsule 20 mg PO DAILY #90 caps 08/14/22 meclizine 25 mg tablet 25 mg PO TID PRN dizziness #30 tabs 10/16/22 albuterol sulfate 2.5 mg/3 mL 2.5 mg (3 mL) continuous 10/24/22 (0.083 %) solution for nebulization nebulization Q6HP PRN shortness of breath or wheezing #360 mL aspirin 81 mg capsule 81 mg PO BID #60 caps 11/16/22 hydromorphone 2 mg tablet 2 mg PO Q6H PRN pain #30 tabs 11/16/22 (Dilaudid) ibuprofen 400 mg tablet 400 mg PO Q4HR PRN Pain, Mild 11/16/22 (1-3) #60 tabs ondansetron 4 mg disintegrating 4 mg PO Q4HR PRN Nausea And 11/16/22 tablet Vomiting #20 tabs oxycodone 5 mg tablet 15 mg PO Q3HR PRN Pain, Moderate 11/16/22 (4-6) #60 tabs polyethylene glycol 3350 17 gram 17 g PO DAILY #14 ea 11/16/22 oral powder packet azithromycin 500 mg tablet See Rx Instructions PO .COMPLEX #6 11/28/22 tabs Allergies Allergy/AdvReac Type Severity Reaction Status Date / Time cyclobenzaprine Allergy Severe Dizziness, Verified 11/28/22 14:47 [From Flexeril] I bounce off ag acetaminophen [ACETAMINOPHEN] AdvReac Unknown Can't take Verified 11/28/22 14:47 r/t Hep C; upset stomach Review of Systems <Zenobia Damon PA-C - Last Filed: 11/30/22 17:38> Review of Systems Narrative: Unremarkable except as noted in the HPI Patient History <Zenobia Damon PA-C - Last Filed: 11/30/22 17:38> Medical History Acute exacerbation of chronic bronchitis Adhesive capsulitis Anxiety Arthritis (Unknown) Chronic ankle pain, bilateral Chronic pain syndrome (Unknown) Colles' fracture Depression (Unknown) Fibromyalgia Foraminal stenosis of lumbar region Hepatitis C (Unknown) Hypertension (Unknown) Impotence (Unknown) Kidney stones (Unknown) Left lateral epicondylitis Left shoulder strain Migraines (Unknown) Oral lesion Peripheral neuropathy Pneumonia (~2018) Preoperative clearance Prostate cancer (Unknown) PTSD (post-traumatic stress disorder) (Unknown) Restless leg syndrome (Unknown) Rheumatoid arthritis Right wrist pain Right wrist sprain Sinus drainage Skin cancer (Unknown) Surgical History History of ankle surgery History of back surgery History of carpal tunnel repair History of lumbar fusion History of lumbar fusion (05/10/22) History of prosthetic unicompartmental arthroplasty of right knee History of tonsillectomy History of total replacement of right shoulder joint Hx of foot surgery Hx of laminectomy (10/2012) Status post cholecystectomy Status post knee surgery Family History Father Heart disease Mother No problems noted. Social History marital status: household members: spouse occupational status: previously employed Smoking Status: Former smoker Tobacco: How many years used: 20 quit status: has quit before alcohol intake: former substance use type: former substance user and marijuana Smoking Status: Former smoker tobacco type: cigarettes Substance Use Type: does not use and former substance user Exam <Zenobia Damon PA-C - Last Filed: 11/30/22 17:38> Narrative Exam Narrative: GENERAL: 77 year old patient appears stated age. Well-developed patient, in mild-moderate distress, in a wheelchair, orthopedic shoulder sling on his left arm. HEAD: Atraumatic. Normocephalic. EYES: Pupils 4mm equal round and reactive. Extraocular motions intact. No scleral icterus. No injection or drainage. ENT: Nose without bleeding, purulent drainage. Airway patent. NECK: Trachea midline. Non tender CARDIOVASCULAR: Regular rate and rhythm without murmurs, gallops, or rubs. RESPIRATORY: Clear to auscultation. Breath sounds equal bilaterally. No wheezes, rales, or rhonchi. GASTROINTESTINAL: Abdomen nondistended. EXTREMITIES: Left shoulder is tender over the lateral trapezius, the triceps and also tender along the joint line anteriorly and posteriorly. There is a surgical scar on the anterior left shoulder that appears to be healing well without erythema drainage fluctuance. No edema or joint tenderness. BACK: No C-spine or T-spine deformity or stepoffs/tenderness. There is tenderness over the midline lumbar spine and paraspinal muscles. Otherwise Nontender without deformity or crepitance. No flank tenderness. NEURO: AOx3. SKIN: No rash or erythema of visible areas Initial Vital Signs Initial Vital Signs: Vital Signs Temperature 98.7 F 11/30/22 14:21 Pulse Rate 71 11/30/22 14:21 Respiratory Rate 16 11/30/22 14:21 Blood Pressure 156/75 H 11/30/22 14:21 Pulse Oximetry 99 11/30/22 14:21 Oxygen Delivery Method 11/30/22 14:21 <Sheila Rider DO - Last Filed: 12/01/22 08:07> Initial Vital Signs Initial Vital Signs: Vital Signs Temperature 98.7 F 11/30/22 14:21 Pulse Rate 71 11/30/22 14:21 Respiratory Rate 16 11/30/22 14:21 Blood Pressure 156/75 H 11/30/22 14:21 Pulse Oximetry 99 11/30/22 14:21 Oxygen Delivery Method 11/30/22 14:21 Course <Zenobia Damon PA-C - Last Filed: 11/30/22 17:38> Orders Ordered: Discontinued Medications Ketorolac Tromethamine (Ketorolac 30 Mg/Ml Vial) 30 mg IM NOW ONE Stop: 11/30/22 16:15 Last Admin: 11/30/22 16:42 Dose: 30 mg Documented By: ALEXA Oxycodone HCl (Oxycodone Ir 5 Mg Tablet) 15 mg PO NOW ONE Stop: 11/30/22 15:06 Last Admin: 11/30/22 15:11 Dose: 15 mg Documented By: NBA Vital Signs Vital signs: Vital Signs - 8 hr 11/30/22 14:21 Temperature 98.7 F Pulse Rate 71 Respiratory Rate 16 Blood Pressure 156/75 H Pulse Oximetry 99 Oxygen Delivery Method Room Air <Sheila Rider DO - Last Filed: 12/01/22 08:07> Orders Ordered: Discontinued Medications Ketorolac Tromethamine (Ketorolac 30 Mg/Ml Vial) 30 mg IM NOW ONE Stop: 11/30/22 16:15 Last Admin: 11/30/22 16:42 Dose: 30 mg Documented By: ALEXA Oxycodone HCl (Oxycodone Ir 5 Mg Tablet) 15 mg PO NOW ONE Stop: 11/30/22 15:06 Last Admin: 11/30/22 15:11 Dose: 15 mg Documented By: NBA Vital Signs Vital signs: Vital Signs - 8 hr 11/30/22 14:21 Temperature 98.7 F Pulse Rate 71 Respiratory Rate 16 Blood Pressure 156/75 H Pulse Oximetry 99 Oxygen Delivery Method Room Air MDM - Back Pain/Injury <Zenobia Damon PA-C - Last Filed: 11/30/22 17:38> Medical Records Attestation: I reviewed the patient's medical records. Imaging Data Extremity x-ray #1: Radiologist's Impression: [address] [address] [address] Scan Report Signed Patient: Barrett Tam MR#: [id number] : 1945 Acct:[id number] Age/Sex: 77 / M Date of Service: 11/30/22 Loc: ED [address] [address] XRay Report Signed Patient: Barrett Tam MR#: [id number] : 1945 Acct:[id number] Age/Sex: 77 / M Date of Service: 11/30/22 Loc: ED Accession Number: [id number] ?? Procedure: XR shoulder LT min 2V Ordering Provider: Sheila Rider D.O. PROCEDURE:? XR SHOULDER LT MIN 2V ? INDICATIONS:? fall out of bed/surgery t-14/ check hardware ? TECHNIQUE:? To views of the shoulder were acquired.? ? COMPARISON:? [facility], CR, XR SHOULDER LT MIN 2V, 11/15/2022, 10:37.? [facility], CR, XR SHOULDER LT MIN 2V, 08/23/2022, 16:45. ? FINDINGS:? ? Bones:? No acute fractures or dislocations but there is evidence of an old healed distal left clavicular fracture and also prior left total shoulder arthroplasty.? There is no evidence of device loosening or disruption..? No suspicious bony lesions.? Visualized ribs appear intact.? ? Soft tissues:? No suspicious soft tissue calcifications.? Minimal postoperative gas is seen within the area of the deltoid musculature lateral left shoulder. ? IMPRESSION:? Recent operative procedure of left total shoulder arthroplasty, showing no evidence of device loosening or disruption after fall from bed.? Old healed distal clavicular fracture on the left again noted. ? ? Dictated by: Manjinder Rios M.D. on 11/30/2022 at 14:59 ? ? Approved by: Manjinder Rios M.D. on 11/30/2022 at 15:02?? CT scan - head: Radiologist's Impression: [address] [address] [address] Scan Report Signed Patient: Barrett Tam MR#: [id number] : 1945 Acct:[id number] Age/Sex: 77 / M Date of Service: 11/30/22 Loc: ED Accession Number: [id number] ?? Procedure: CT head/brain wo con Ordering Provider: Sheila Rider D.O. PROCEDURE:? CT HEAD/BRAIN WO CON ? INDICATIONS:? fall out of bed hit head recent surgery ? TECHNIQUE:? Noncontrast 4.5 mm thick angled axial sections acquired from the foramen magnum to the vertex, with coronal and sagittal reformats.? For radiation dose reduction, the following was used:? automated exposure control, adjustment of mA and/or kV according to patient size.? ? COMPARISON:? [facility], CT, HEAD WITHOUT CONTRAST, 04/12/2015, 13:51.? [facility], CT, HEAD WITHOUT CONTRAST, 02/07/2015, 12:34. ? FINDINGS:? Image quality:? Excellent.? ? CSF spaces:? Basal cisterns are patent.? No extra-axial fluid collections.? The ventricles are symmetric in size and shape.? ? Brain:? No intracranial bleeds or masses.? There is cerebral volume loss for age, with resultant ventricular and sulcal prominence.? There are periventricular and deep white matter chronic small vessel ischemic changes.? There is intracranial internal carotid artery atherosclerosis.? ? Skull and face:? Calvarium and visualized facial bones appear intact, without suspicious lesions.? ? Sinuses:? Visualized sinuses and mastoids are clear.? ? IMPRESSION:? Normal for age, source of current pain after trauma symptoms is not seen. ? ? Dictated by: Manjinder Rios M.D. on 11/30/2022 at 14:51 ? ? Approved by: Manjinder Rios M.D. on 11/30/2022 at 14:52?? XR lumbar: Radiologist's Impression: [address] [address] XRay Report Signed Patient: Barrett Tam MR#: [id number] : 1945 Acct:[id number] Age/Sex: 77 / M Date of Service: 11/30/22 Loc: ED Accession Number: [id number] ?? Procedure: XR lumbar spine 2-3V Ordering Provider: Zenobia Damon P.A-C PROCEDURE:? XR LUMBAR SPINE 2-3V ? INDICATIONS:? acute on chronic LBP, fall out of bed ? TECHNIQUE:? 3 views of the lumbar spine were acquired.? ? COMPARISON:? [facility], CT, CT ABDOMEN PELVIS W CON, 06/25/2022, 14:45. ? FINDINGS:? ? Bones:? 5 [id number] vertebrae are present.? Prior posterior fusion procedure has been performed from T12 through L4, showing no evidence of device loosening or disruption.? Additionally, right iliac wing surgical fixation plate and 4 screws appear free of disruption.? There is normal bony alignment.? No vertebral body compression fractures.? No suspicious bony lesions.? ? Soft tissues:? Overlying bowel gas pattern is normal.? No suspicious soft tissue calcifications.? ? ? IMPRESSION:? No new trauma found.? Postsurgical changes as discussed including low thoracic-lumbosacral spine fusion and right iliac wing fracture fixation. ? ? Dictated by: Manjinder Rios M.D. on 11/30/2022 at 16:06 ? ? Approved by: Manjinder Rios M.D. on 11/30/2022 at 16:08?? MDM Narrative Medical decision making narrative: 69-year-old male with chronic pain on chronic opioid pain meds, peripheral ne uropathy, foraminal stenosis with previous lumbar surgery, left shoulder surgery in October 2022 presents with concern for a fall out of bed approximately 2 ft height today around 6:[address] scan of the head as well as x-ray shoulder obtained initially in triage. These return without concerning findings. Additional x-ray of lumbar spine is obtained after exam. This returns with no new changes. Patient notably is on all significant amount of opioids postop but has recently finished these prescriptions including hydromorphone 2 mg oral every 6 hours as needed prescribed on November 16 as well as oxycodone 15 mg every 3 hours as needed prescribed on November 16. Patient also endorses he has chronic pain prescription for many many years of oxycodone and that is his baseline meds prescribed by his PCP. He says he has been in and out of pain clinic management over the years but is not currently managed by a pain clinic. Patient is endorsing that he is missing about half a bottle of his oxycodone prescribed by his PCP and has been out for 24-48 hours. Patient is given 1 dose of 15 mg oxycodone today in the emergency department. On review of the patient's chart last historic meds he did receive a number of 30 day prescriptions of maximum 50 mg per day oxycodone from his PCP last year however this was not every month and last prescription appears to be in July. After discussion with the patient who advise him he is not taken any ibuprofen today and review of labs which shows good kidney function in September, do provide additional pain control of IM Toradol for him prior to discharge. Advising the patient to follow-up closely with his PCP, will also refer him for pain management. Return precautions provided, follow-up plan discussed, all questions answered. Discharge Plan Departure Patient Disposition: Home Clinical Impression: Fall, Chronic pain Activity Restrictions/Additional Instructions: Thank you for letting us be part of your care today in the emergency department. Unfortunately you in a difficult situation if you are unable to find your pain medications. We did give you 1 dose of oxycodone in the emergency department and also gave you Toradol which is ineffective but non opioid pain medicine. I reviewed your medication history and prescription history and it does look like you have been getting pain meds fairly frequently from your PCP and obviously also had new and increased pain meds after her shoulder surgery. Unfortunately we can not provide you with opioid pain medication from the emergency department for chronic pain. Your x-rays today did look okay. I am sure you have some muscle aches and pains associated with her fall out of bed this morning but this does not warrant additional opioid medications. You should talk to your primary care provider, I am also referring you to another provider who can potentially manage pain medications. There is no evidence of an emergent or life threatening illness at this time, but follow up with your doctor in 1-2 days is recommended nonetheless to continue to rule out serious underlying causes of your symptoms. Please call the office for an appointment. Please return to the Emergency Department for any worsening or persistent symptoms. Please take medications as directed. Prescriptions: No Action fluoxetine 10 mg capsule See Rx Instructions .ROUTE .COMPLEX Qty: 90 3RF Dose Instruction: take 1 capsule by mouth once daily WITH 20MG CAP DAILY TOTAL 30 MG DAILY Rx Instructions: take 1 capsule by mouth once daily WITH 20MG CAP DAILY TOTAL 30 MG DAILY fluoxetine 20 mg capsule 20 mg PO DAILY Qty: 90 3RF Rx Instructions: Take with 10 mg to complete 30 mg dose albuterol sulfate 2.5 mg /3 mL (0.083 %) solution for nebulization 2.5 mg Continuous Nebulization Q6HP PRN (Reason: shortness of breath or wheezing) Qty: 360 2RF azithromycin 500 mg tablet See Rx Instructions PO .COMPLEX Qty: 6 0RF Rx Instructions: For 250 mg dose pack: take 500 mg today (day 1), then 250 mg for 4 days (days 2-5) PO meclizine 25 mg tablet 25 mg PO TID PRN (Reason: dizziness) Qty: 30 0RF Disabled Parking Permit 1 1 % SEEINSTR Rx Instructions: Valid for 5 years sulfasalazine 500 mg tablet 1,000 mg PO BID amlodipine 5 mg tablet 5 mg PO BEDTIME Label Comments: pt received dose in hospital 11/10/19 early AM admit to [facility] valacyclovir 1 gram tablet 1,000 mg PO Q8H PRN (Reason: Breakout) metoprolol succinate 100 mg tablet extended release 24 hr 100 mg PO DAILY omeprazole 40 mg capsule,delayed release(DR/EC) 40 mg PO DAILY Rx Instructions: take 1 capsule by mouth once daily hydrochlorothiazide 25 mg tablet 12.5 mg PO QAM losartan 100 mg tablet 100 mg PO DAILY polyethylene glycol 3350 17 gram Powder In Packet 17 g PO DAILY Qty: 14 0RF ibuprofen 400 mg Tablet 400 mg PO Q4HR PRN (Reason: Pain, Mild (1-3)) Qty: 60 0RF oxycodone 5 mg Tablet 15 mg PO Q3HR PRN (Reason: Pain, Moderate (4-6)) Qty: 60 0RF hydromorphone [Dilaudid] 2 mg tablet 2 mg PO Q6H PRN (Reason: pain) Qty: 30 0RF Rx Instructions: Take 1 tablet every 6 hours as needed for breakthrough pain ondansetron 4 mg Tablet,Disintegrating 4 mg PO Q4HR PRN (Reason: Nausea And Vomiting) Qty: 20 0RF aspirin 81 mg capsule 81 mg PO BID Qty: 60 0RF Referrals: Jimenez Sow DO [Physician] - (chronic pain patient, needs management) Edilberto Snell DO [Primary Care Provider] - Stand Alone Forms: Patient Portal/API <Sheila Rider DO - Last Filed: 12/01/22 08:07> Cosign ED Attending Liliana Attestation: I was immediately available in the department for consultation. Documentation has been reviewed.
[2022-11-30] MEDS: OXYCODONE IR 5 MG TABLET 15 MG PO (15:11)
--- NOTE | 2022-11-30 15:36 | DI.RAD.S_ITS ---
PROCEDURE: XR LUMBAR SPINE 2-3V INDICATIONS: acute on chronic LBP, fall out of bed TECHNIQUE: 3 views of the lumbar spine were acquired. COMPARISON: [facility], CT, CT ABDOMEN PELVIS W CON, 06/25/2022, 14:45. FINDINGS: Bones: 5 [id number] vertebrae are present. Prior posterior fusion procedure has been performed from T12 through L4, showing no evidence of device loosening or disruption. Additionally, right iliac wing surgical fixation plate and 4 screws appear free of disruption. There is normal bony alignment. No vertebral body compression fractures. No suspicious bony lesions. Soft tissues: Overlying bowel gas pattern is normal. No suspicious soft tissue calcifications. IMPRESSION: No new trauma found. Postsurgical changes as discussed including low thoracic-lumbosacral spine fusion and right iliac wing fracture fixation. Dictated by: Manjinder Rios M.D. on 11/30/2022 at 16:06 Approved by: Manjinder Rios M.D. on 11/30/2022 at 16:08
[2022-11-30] MEDS: KETOROLAC 30 MG/ML VIAL IM (16:42)
== END 2022-11-30 16:51 | disposition home or self-care (01) ==
PROVIDERS: Emergency Provider Student in an Organized Health Care Education/Training Program; PCP Family Medicine
DX: G89.29 Other chronic pain (principal); S49.92XA Unspecified injury of left shoulder and upper arm, initial encounter; W06.XXXA Fall from bed, initial encounter
CPT/HCPCS: 70450; 72100; 73030; 96372; 99284; J1885

== ENCOUNTER 2022-12-11 16:34 | Emergency (ER) | payer MEDICARE, OTHER, SELFPAY ==
[2022-11-15 12:10] VITALS: BMI 30.8
[2022-12-11] VITALS (8 sets, daily range): BP systolic 126–168; BP diastolic 69–104; PULSE 69–86; RESP 16–19; TEMP 37.3; O2SAT 95–99
[2022-12-11 17:22] LABS: Add Manual Diff / Slide Review NO; Basophils Absolute Auto 100 /uL (0-100); Basophils Percent Auto 1.1 % (0-2); Eosinophils Absolute Auto 500 /uL (0-450); Eosinophils Percent Auto 5.4 % (2-4); Hematocrit 36.2 % (41-53); Hemoglobin 12.2 g/dL (13.5-17.5); Lymphocytes Absolute Auto 2000 /uL (1100-4500); Lymphocytes Percent Auto 20.5 % (25-40); Mean Corpuscular HGB Conc 33.7 % (30-36); Mean Corpuscular Volume 80.1 fL (80-100); Monocytes Absolute Auto 1500 /uL (0-900); Monocytes Percent Auto 15.2 % (3-14); Neutrophils Absolute Auto 5600 /uL (1500-7000); Neutrophils Percent Auto 57.8 % (50-75); Platelet Count 358 X10^3/uL (150-400); Red Blood Cell Count 4.52 X10^6/uL (4.5-5.9); Red Cell Distribution Width 15.1 % (11.6-14.8); White Blood Cell Count 9.8 X10^3/uL (4.5-11.0)
[2022-12-11 17:46] LABS: Creatine Kinase 43 U/L (55-170)
[2022-12-11 17:47] LABS: Alanine Aminotransferase 16 IU/L (<50); Albumin 4.2 g/dL (3.5-5.0); Albumin Globulin Ratio 1.2 (1.0-2.8); Alkaline Phosphatase 96 U/L (38-126); Aspartate Aminotransferase 29 IU/L (17-59); BUN Creatinine Ratio 25.8 (6-22); Bilirubin Total 0.4 mg/dL (0.2-1.3); Blood Urea Nitrogen 17 mg/dL (9-20); Calcium 8.8 mg/dL (8.4-10.2); Carbon Dioxide 26 mmol/L (22-32); Chloride 102 mmol/L (98-107); Estimated Glomerular Filt Rate > 60 mL/min (>60); Globulin 3.6 g/dL (1.7-4.1); Glucose 100 mg/dL (80-110); HEMOLYSIS 33 (0-50); Lipase 101 U/L (23-300); Potassium 3.7 mmol/L (3.4-5.1); Sodium 138 mmol/L (137-145); Total Protein 7.8 g/dL (6.3-8.2)
[2022-12-11 17:57] LABS: NT-proBNP (BNP-Adult 18+) 155 pg/mL (<450); Troponin I < 0.012 ng/mL (0.01-0.034)
--- NOTE | 2022-12-11 18:00 | DI.RAD.S_ITS ---
PROCEDURE: XR CHEST 1V INDICATIONS: Short of breath TECHNIQUE: One view of the chest was acquired. COMPARISON: [facility], CT, CT ANGIO CHEST PE PROTOCOL, 11/10/2020, 7:28. [facility], CT, CT ABDOMEN PELVIS W CON, 06/25/2022, 14:45. [facility], CR, XR CHEST 1V, 11/09/2020, 18:19. [facility], CR, XR CHEST 2V, 07/06/2021, 14:57. FINDINGS: Surgical changes and devices: Bilateral shoulder arthroplasty hardware is partially seen. Lumbar spine fixation hardware is also partially seen. Cholecystectomy clips are seen. Lungs and pleura: An incomplete inspiratory result is noted, causing a crowded appearance to the lung markings. No focal infiltrates are seen. No pneumothorax or significant pleural effusions are seen. Mediastinum: The cardiac contours are within normal limits. The aorta demonstrates calcification and tortuosity. There is faint visualization of the known calcified mediastinal lymph nodes. Bones and chest wall: No suspicious bony lesions. Age-appropriate bony degenerative changes are seen. Overlying soft tissues appear unremarkable. IMPRESSION: Low lung volumes, without an acute abnormality seen. Postoperative and degenerative changes are seen. Dictated by: Gregg Vásquez M.D. on 12/11/2022 at 17:30 Approved by: Gregg Vásquez M.D. on 12/11/2022 at 17:40
[2022-12-11 18:30] LABS: Bacteria Urine None Seen; Mucus Urine 1+ (Negative); RBC Urine 0-1/HPF (0-5/HPF); Squamous Epithelial Cell Urine 0-1 /HPF (0-5/HPF); WBC Urine 0-1/HPF (0-5/HPF)
[2022-12-11 18:31] LABS: Culture Indicated Urine Cult Not Indicated
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
--- NOTE | 2022-12-11 19:30 | DI.CT.S_ITS ---
PROCEDURE: CT ABDOMEN PELVIS W CON INDICATIONS: LLQ pain with nausea hx colectomy TECHNIQUE: After the administration of IV contrast, axial sections were acquired from the lung bases to the pubic symphysis. Coronal and sagittal reformats were performed. For radiation dose reduction, the following was used: automated exposure control, adjustment of mA and/or kV according to patient size. COMPARISON: [facility], CT, CT ABDOMEN PELVIS W CON, 06/25/2022, 14:45. FINDINGS: Image quality: There is metallic streak artifact secondary to patient's spinal and pelvic fixation hardware. Lung bases: There is mild dependent atelectasis. A few calcified nodules are demonstrated bilaterally within the lung bases consistent sequelae of old granulomatous disease. There also calcified right hilar lymph nodes noted consistent with sequelae of old granulomatous disease. Heart: Heart is normal in size. ABDOMEN: Liver: No mass lesion. Gallbladder: Surgically absent. Biliary ducts: No biliary ductal dilatation. Pancreas: Unremarkable. Spleen: Normal in size. Multiple calcifications are demonstrated throughout the spleen consistent with sequelae of old granulomatous disease. Adrenal Glands: No adrenal nodules. Kidneys and Ureters: No hydronephrosis. There is mild nonspecific perinephric stranding redemonstrated. Stomach and Bowel: Stomach, small bowel loops, and colon are normal in caliber and wall thickness. The appendix is normal in appearance. Peritoneum: No abnormal intraperitoneal fluid. No free air. Ventral Wall: No hernia. Abdominal Nodes: No retroperitoneal or mesenteric adenopathy by size criteria. Vessels: Aorta and inferior vena cava are normal in size. PELVIS: Pelvic Organs: Unremarkable. Bladder: Unremarkable. Pelvic Nodes: No enlarged lymph nodes. Miscellaneous: No inguinal hernias. There are bilateral fluid collections redemonstrated within the inguinal fossa bilaterally, measuring up to 3.6 x 3.2 cm on the right and 2.7 x 2.0 cm on the left. Findings are similar to the prior study. Multiple adjacent surgical clips are noted within the pelvis. Bones: There are postsurgical changes consistent with prior ORIF of the anterior bony pelvis and right ilium. Posterior fixation also demonstrated within the lumbar spine at T12 through L4 with associated intervertebral spaces at L1-L2, L2-L3, and L3-L4. The findings are similar to the prior study. Visualized osseous structures demonstrate no suspicious focal lesions. IMPRESSION: 1. No definite acute intra-abdominal abnormality. 2. Extensive postsurgical changes within the lumbar spine and bony pelvis as described. 3. Bilateral fluid collections redemonstrated within the inguinal fossae are nonspecific but suggestive of postsurgical collection such as seromas. Dictated by: Hipolito Willis M.D. on 12/11/2022 at 20:53 Approved by: Hipolito Willis M.D. on 12/11/2022 at 21:01
[2022-12-11 19:45] LABS: Lactate (Lactic Acid) 1.7 mmol/L (0.7-2.1)
[2022-12-11] MEDS: HYDROMORPHONE 1 MG INJ IV (19:46)
[2022-12-11] MEDS: SODIUM CHLORIDE 0.9% 1,000 ML 1000 ML IV (19:46)
[2022-12-11] MEDS: ONDANSETRON 4 MG ODT PREPACK 1 BOTTLE MISC (22:13)
[2022-12-11] MEDS: OXYCODONE/APAP 5/325 PREPACK 1 BOTTLE MISC (22:13)
== END 2022-12-11 22:46 | disposition home or self-care (01) ==
PROVIDERS: Emergency Medicine; Student in an Organized Health Care Education/Training Program; Emergency Provider Emergency Medicine; PCP Family Medicine
DX: R10.32 Left lower quadrant pain (principal); R06.02 Shortness of breath
CPT/HCPCS: 36415; 71045; 74177; 80053; 81003; 81015; 82550; 83605; 83690; 83880; 84484; 85025; 96374; 99284; J1170; Q9967

== ENCOUNTER → 2023-01-02 10:17 | Outpatient (CLI) | payer MEDICARE, OTHER, SELFPAY ==
[2022-11-15 12:10] VITALS: BMI 30.8
--- NOTE | 2023-01-02 10:19 | DI.US.S_ITS ---
PROCEDURE: US ABDOMEN LIMITED INDICATIONS: LLQ LUMP; POSSIBLE HERNIA TECHNIQUE: Real-time focused scanning was performed of the abdomen, with image documentation. COMPARISON: [facility], CT, CT ABDOMEN PELVIS W [facility], 12/11/2022, 19:33. FINDINGS: Scanning is performed at the area of clinical concern involving the left lower quadrant abdominal wall. No findings of hernia can be seen, including with Valsalva maneuver. No masses are seen. IMPRESSION: No hernia or mass can be seen at the site of clinical concern involving the left lower quadrant abdominal wall. Dictated by: Gregg Vásquez M.D. on 01/02/2023 at 11:46 Approved by: Gregg Vásquez M.D. on 01/02/2023 at 11:47
== END ==
PROVIDERS: PCP Family Medicine; Referring Provider Surgery; Visit Provider Surgery
DX: R10.9 Unspecified abdominal pain (principal); R19.04 Left lower quadrant abdominal swelling, mass and lump
CPT/HCPCS: 76705

== ENCOUNTER 2023-02-25 15:39 | Emergency (ER) | payer MEDICARE, OTHER, SELFPAY ==
[2022-11-15 12:10] VITALS: BMI 30.8
[2023-02-25 15:42] VITALS: BP 119/58; PULSE 77; RESP 18; TEMP 37.3; O2SAT 96
[2023-02-25 16:54] LABS: Ictotest Urine Negative (Negative)
[2023-02-25 16:55] LABS: Add Manual Diff / Slide Review NO; Basophils Absolute Auto 100 /uL (0-100); Basophils Percent Auto 0.9 % (0-2); Eosinophils Absolute Auto 200 /uL (0-450); Eosinophils Percent Auto 2.6 % (2-4); Hematocrit 32.2 % (41-53); Hemoglobin 11.3 g/dL (13.5-17.5); Lymphocytes Absolute Auto 1200 /uL (1100-4500); Lymphocytes Percent Auto 14.6 % (25-40); Mean Corpuscular HGB Conc 35.2 % (30-36); Mean Corpuscular Hemoglobin 27.5 PG (26-34); Mean Corpuscular Volume 77.9 fL (80-100); Monocytes Absolute Auto 700 /uL (0-900); Monocytes Percent Auto 8.4 % (3-14); Neutrophils Absolute Auto 6200 /uL (1500-7000); Neutrophils Percent Auto 73.5 % (50-75); Platelet Count 300 X10^3/uL (150-400); Red Blood Cell Count 4.13 X10^6/uL (4.5-5.9); Red Cell Distribution Width 15.9 % (11.6-14.8); White Blood Cell Count 8.4 X10^3/uL (4.5-11.0)
[2023-02-25 16:59] LABS: Alanine Aminotransferase 17 IU/L (<50); Albumin Globulin Ratio 1.2 (1.0-2.8); Alkaline Phosphatase 81 U/L (38-126); Aspartate Aminotransferase 20 IU/L (17-59); BUN Creatinine Ratio 15.5 (6-22); Bilirubin Total 0.7 mg/dL (0.2-1.3); Blood Urea Nitrogen 11 mg/dL (9-20); Calcium 8.7 mg/dL (8.4-10.2); Carbon Dioxide 30 mmol/L (22-32); Chloride 94 mmol/L (98-107); Estimated Glomerular Filt Rate > 60 mL/min (>60); Globulin 3.4 g/dL (1.7-4.1); Glucose 171 mg/dL (80-110); HEMOLYSIS 20 (0-50); Lipase 28 U/L (23-300); Potassium 2.8 mmol/L (3.4-5.1); Sodium 135 mmol/L (137-145); Total Protein 7.4 g/dL (6.3-8.2)
[2023-02-25 18:36] LABS: Magnesium 1.9 mg/dL (1.6-2.3)
[2023-02-25] MEDS: POTASSIUM CHLORIDE IN WATER 10 MEQ/100 ML PIGGYBACK 100 MEQ IV (18:48)
[2023-02-25] MEDS: POTASSIUM CHLORIDE 20 MEQ/15 ML UDC 40 MEQ PO (18:48)
[2023-02-25 18:50] VITALS: PULSE 68
[2023-02-25 18:52] VITALS: BP 134/63; PULSE 68; RESP 26; O2SAT 98
[2023-02-25 19:00] VITALS: BP 121/56; PULSE 67; RESP 26; O2SAT 98
[2023-02-25] MEDS: SODIUM CHLORIDE 0.9% 1,000 ML 150 ML IV (19:03)
--- NOTE | 2023-02-25 19:13 | DI.MRI.S_ITS ---
PROCEDURE: MR LUMBAR SPINE WO CON INDICATIONS: radicular back pain, loss of bowel TECHNIQUE: Noncontrast sagittal T1 spin echo and T2 fast echo, sagittal STIR, and T2 fast spin echo through the lumbar spine. In cases with scoliosis, additional coronal T2 fast spin echo may be performed. COMPARISON: MR, MR LUMBAR SPINE WO/W CON, 05/26/2022, 16:21. [facility], CR, XR LUMBAR SPINE 2-3V, 11/30/2022, 15:38. [facility], MR, MR LUMBAR SPINE WO CON, 02/17/2022, 11:07. FINDINGS: Image quality: There is magnetic susceptibility artifact secondary to patient's surgical hardware as well as motion artifact limiting evaluation. Alignment and Curvature: There is mild retrolisthesis at T12-L1, L1-L2, and L3-L4 which appear unchanged. Minimal anterolisthesis also demonstrated at T11-T12, similar to the prior study. Bone Marrow: Marrow is of normal overall signal. No acute vertebral body compression fractures. There are extensive postsurgical changes status post posterior fixation and fusion at T12 through L4 with bilateral pedicle screws and posterior fixation rods at these levels. Spinal Cord: Conus medullaris terminates at the L1 level. Visualized cord demonstrates grossly normal signal and size. Paraspinous Soft Tissues: No paravertebral masses. There is decrease in size of posterior paravertebral fluid collections in the surgical bed compatible with seromas. There is fatty atrophy of the paraspinous musculature. T12-L1: Mild loss of disc height with a small broad-based disc bulge as well as a left posterolateral protrusion. There is mild facet arthropathy. The findings contribute to moderate spinal canal narrowing with severe left and moderate right neural foraminal narrowing, similar to the prior study. L1-L2: Severe loss of disc height with a broad-based disc osteophyte complex. Status post posterior decompression and fusion. No spinal canal narrowing. There is suggestion of moderate left neural foraminal narrowing but evaluation is limited by magnetic susceptibility artifact. L2-L3: Status post intervertebral spacer placement with a small broad-based disc bulge. Postsurgical changes are demonstrated status post posterior decompression and fusion. No spinal canal narrowing. There is suspected mild bilateral neural foraminal narrowing with evaluation limited by magnetic susceptibility. L3-L4: Moderate loss of disc height status post intervertebral spacer placement with a small broad-based disc bulge. Status post posterior decompression and fusion. No spinal canal narrowing. There is moderate right neural foraminal narrowing and suspected moderate left neural foraminal narrowing with evaluation limited by magnetic susceptibility. L4-L5: Preserved disc height. There is moderate facet arthropathy. No spinal canal narrowing. There is moderate to severe right and moderate left neural foraminal narrowing which appears similar to the prior study. L5-S1: Mild disc desiccation and severe facet arthropathy. No spinal canal narrowing. There is moderate left and mild right neural foraminal narrowing which appears similar to the prior study. IMPRESSION: 1. Extensive postsurgical and multilevel degenerative changes in the lumbar spine redemonstrated. 2. No high-grade spinal canal narrowing. Moderate spinal canal narrowing at T12-L1 appears similar to the prior study. 3. Multilevel neural foraminal narrowing redemonstrated including severe narrowing on the left at T12-L1 as well as moderate to severe narrowing on the right at L4-5. Findings are similar to the prior study. Dictated by: Hipolito Willis M.D. on 02/25/2023 at 20:49 Approved by: Hipolito Willis M.D. on 02/25/2023 at 21:11
[2023-02-25 19:30] VITALS: BP 124/58; PULSE 71; RESP 23; O2SAT 98
[2023-02-25] MEDS: diazePAM 10 MG/2 ML SYRINGE 2 MG IV (19:30)
[2023-02-25] MEDS: DEXAMETHASONE 10 MG/ML VIAL 6 MG IV (19:30)
--- NOTE | 2023-02-25 19:33 | ED.GENADULT ---
HPI - General Adult General Chief complaint: Back Pain/Injury Stated complaint: Back Injury, Serious PAIN Time Seen by Provider: 02/25/23 15:56 Source: patient Mode of arrival: Wheelchair History of Present Illness HPI narrative: 77-year-old male former smoker with history of hypertension, kidney stones, pneumonia, posttraumatic stress disorder, prostate cancer presents with a chief complaint of upwards of 1 month of worsening low back pain with radiation down his left leg. He states for at least the past few days symptoms have been significantly worse. He states that he was straining on the toilet and felt a pop in his back and since then has had sufficient pain to warrant the use of crutches for ambulation. Motion makes it worse and rest improves his symptoms. He has had trouble starting a urine stream but denies any difficulty with moving his bowels. They states the pain is sharp and stabbing and radiates down his left leg and is associated with numbness and tingling and has even been giving out on him on occasion. He has been taking gabapentin and oxycodone. He denies any specific trauma. Has had no fever and does not take blood thinners. Related Data Home Medications Medication Instructions Recorded Confirmed Disabled Parking Permit 1 % SEEINSTR 11/08/20 02/08/23 sulfasalazine 500 mg tablet 1,000 mg PO BID 11/10/20 02/08/23 amlodipine 5 mg tablet 5 mg PO BEDTIME 11/08/22 02/08/23 valacyclovir 1 gram tablet 1,000 mg PO Q8H PRN Breakout 11/08/22 02/08/23 hydrochlorothiazide 25 mg tablet 12.5 mg PO QAM 11/15/22 02/08/23 losartan 100 mg tablet 100 mg PO DAILY 11/15/22 02/08/23 Previous Rx's Medication Instructions Recorded fluoxetine 10 mg capsule See Rx Instructions .Route 08/14/22 .COMPLEX #90 caps fluoxetine 20 mg capsule 20 mg PO DAILY #90 caps 08/14/22 meclizine 25 mg tablet 25 mg PO TID PRN dizziness #30 tabs 10/16/22 albuterol sulfate 2.5 mg/3 mL 2.5 mg (3 mL) continuous 10/24/22 (0.083 %) solution for nebulization nebulization Q6HP PRN shortness of breath or wheezing #360 mL aspirin 81 mg capsule 81 mg PO BID #60 caps 11/16/22 ibuprofen 400 mg tablet 400 mg PO Q4HR PRN Pain, Mild 11/16/22 (1-3) #60 tabs polyethylene glycol 3350 17 gram 17 g PO DAILY #14 ea 11/16/22 oral powder packet azithromycin 500 mg tablet See Rx Instructions PO .COMPLEX #6 11/28/22 tabs albuterol sulfate 90 mcg/actuation 1 inh inhalation Q4-6H PRN 12/27/22 aerosol inhaler shortness of breath #18 grams omeprazole 40 mg capsule,delayed 40 mg PO DAILY #90 caps 01/01/23 release lidocaine 5 % topical patch 2 patch topical DAILY #30 ea 01/08/23 metoprolol succinate 100 mg 100 mg PO DAILY #90 tabs 01/24/23 tablet,extended release 24 hr ketoconazole 2 % topical cream 1 applic topical BID #30 grams 02/08/23 methocarbamol 500 mg tablet 500 mg PO TID PRN muscle spasm #60 02/08/23 tabs oxycodone 10 mg tablet 10 mg PO QID PRN pain #120 tabs 02/08/23 diazepam 2 mg tablet (Valium) 2 mg PO BID-TID PRN muscle spasm 02/26/23 #10 tabs ketorolac 10 mg tablet 10 mg PO Q6H PRN pain #14 tabs 02/26/23 methylprednisolone 4 mg tablets in See Rx Instructions PO .COMPLEX 02/26/23 a dose pack (Medrol (Dennis)) #21 ea potassium chloride 20 mEq 20 meq PO BID #10 tabs 02/26/23 tablet,extended release Allergies Allergy/AdvReac Type Severity Reaction Status Date / Time cyclobenzaprine Allergy Severe Dizziness, Verified 02/25/23 15:46 [From Flexeril] I bounce off ag acetaminophen [ACETAMINOPHEN] AdvReac Unknown Can't take Verified 02/25/23 15:46 r/t Hep C; upset stomach Review of Systems Review of Systems Narrative: GENERAL: Denies chills, fatigue, malaise, fever, sweats. HEENT: Denies sinus pain, ear pain, sore throat, difficulty swallowing, dizziness. RESPIRATORY: Denies dyspnea, cough, wheezing, hemoptysis, sputum. CARDIOVASCULAR: Denies chest pain, palpitations, orthopnea, edema, GASTROINTESTINAL: Denies nausea, vomiting, abdominal pain, diarrhea, constipation, melena. : Denies dysuria, frequency, incontinence, hematuria, urinary retention. MUSCULOSKELETAL: See HPI SKIN: Denies rash, skin lesions, or other NEUROLOGIC: See HPI PSYCHIATRIC: No concerning psychosocial issues. 12 point review of systems is negative except for those stated above Patient History Medical History Abdominal wall pain in both lower quadrants Acute exacerbation of chronic bronchitis Adhesive capsulitis Aftercare following left shoulder joint replacement surgery Anxiety Arthritis (Unknown) Chronic ankle pain, bilateral Chronic pain syndrome (Unknown) Colles' fracture Constipation Depression (Unknown) Fibromyalgia Foraminal stenosis of lumbar region Hepatitis C (Unknown) Hypertension (Unknown) Impotence (Unknown) Kidney stones (Unknown) Left lateral epicondylitis Left shoulder strain Migraines (Unknown) Oral lesion Peripheral neuropathy Pneumonia (~2017) Preoperative clearance Prostate cancer (Unknown) PTSD (post-traumatic stress disorder) (Unknown) Restless leg syndrome (Unknown) Rheumatoid arthritis Right wrist pain Right wrist sprain Sinus drainage Skin cancer (Unknown) Tinea Surgical History History of ankle surgery History of back surgery History of carpal tunnel repair History of lumbar fusion History of lumbar fusion (05/10/22) History of prosthetic unicompartmental arthroplasty of right knee History of tonsillectomy History of total replacement of right shoulder joint Hx of foot surgery Hx of laminectomy (10/2012) Status post cholecystectomy Status post knee surgery Family History Father Heart disease Mother No problems noted. Social History marital status: household members: spouse lives independently: Yes occupational status: previously employed Smoking Status: Former smoker Tobacco: How many years used: 20 quit status: has quit before alcohol intake: former substance use type: former substance user and marijuana Smoking Status: Former smoker tobacco type: cigarettes Substance Use Type: does not use and former substance user Exam Narrative Exam Narrative: GENERAL: [] year old patient appears stated age. Well-developed patient, in mild distress. HEAD: Atraumatic. Normocephalic. EYES: Pupils equal round and reactive. Extraocular motions intact. No scleral icterus. No injection or drainage. ENT: Nose without bleeding, purulent drainage. Throat without erythema, tonsillar hypertrophy or exudate. Airway patent. NECK: Trachea midline. Non tender CARDIOVASCULAR: Regular rate and rhythm without murmurs, gallops, or rubs. RESPIRATORY: Clear to auscultation. Breath sounds equal bilaterally. No wheezes, rales, or rhonchi. GASTROINTESTINAL: Abdomen soft, non-tender, nondistended. EXTREMITIES: No edema or joint tenderness. BACK: Nontender without deformity or crepitance. No flank tenderness. NEURO: AOx3. SKIN: No rash or erythema of visible areas Initial Vital Signs Initial Vital Signs: Vital Signs Temperature 99.1 F 02/25/23 15:42 Pulse Rate 77 02/25/23 15:42 Respiratory Rate 18 02/25/23 15:42 Blood Pressure 119/58 L 02/25/23 15:42 Pulse Oximetry 96 02/25/23 15:42 Oxygen Delivery Method Room Air 02/25/23 15:42 Course Orders Ordered: ED Orders 02/25/23 19:13 MR lumbar spine wo con Stat 02/25/23 22:22 BMP [Basic Metabolic Panel] Stat Discontinued Medications Dexamethasone (Dexamethasone 10 Mg/Ml Vial) 6 mg IV NOW ONE Stop: 02/25/23 19:14 Last Admin: 02/25/23 19:30 Dose: 6 mg Documented By: PRISCILLA Diazepam (Diazepam 10 Mg/2 Ml Syringe) 2 mg IV NOW ONE Stop: 02/25/23 19:14 Last Admin: 02/25/23 19:30 Dose: 2 mg Documented By: PRISCILLA Hydromorphone HCl (Hydromorphone 1 Mg Inj) 1 mg IV NOW ONE Stop: 02/25/23 21:35 Last Admin: 02/25/23 21:42 Dose: 1 mg Documented By: PRISCILLA Hydromorphone HCl (Hydromorphone 1 Mg Inj) 1 mg IV NOW ONE Stop: 02/26/23 00:22 Last Admin: 02/26/23 00:32 Dose: 1 mg Documented By: GC POTASSIUM CHLORIDE IN WATER (Potassium Cl 10 Meq/100 Ml Majo) 10 meq in 100 mls @ 100 mls/hr IV Q1H BENJAMÍN Stop: 02/25/23 22:29 Last Infusion: 02/25/23 22:26 Dose: 0 mls/hr Documented By: Admin: 02/25/23 20:42 Dose: 66 mls/hr Documented By: Infusion: 02/25/23 20:42 Dose: 0 mls/hr Documented By: Infusion: 02/25/23 20:14 Dose: 60 mls/hr Documented By: Infusion: 02/25/23 19:37 Dose: 80 mls/hr Documented By: Admin: 02/25/23 18:48 Dose: 100 mls/hr Documented By: RB Sodium Chloride (Normal Saline 0.9%) 1,000 mls @ 150 mls/hr IV NOW ONE Stop: 02/26/23 01:39 Last Admin: 02/25/23 19:03 Dose: 150 mls/hr Documented By: NATI Oxycodone/Acetaminophen (Oxycodone/Apap 5/325 Prepack) 1 bottle MISC SEEINSTR ONE Stop: 02/26/23 00:07 Potassium Chloride (Potassium Chloride 20 Meq/15 Ml Udc) 40 meq PO NOW ONE Stop: 02/25/23 18:21 Last Admin: 02/25/23 18:48 Dose: 40 meq Documented By: NATI Vital Signs Vital signs: Vital Signs - 8 hr 02/25/23 19:30 02/25/23 19:30 02/26/23 00:49 Temperature 97.3 F L Pulse Rate 71 76 Respiratory Rate 23 20 Blood Pressure 124/58 L 144/82 H Pulse Oximetry 98 97 Oxygen Delivery Method Room Air Medical Decision Making Lab Data 02/25/23 16:35 02/25/23 22:22 Labs: Lab Results 02/25/23 02/25/23 02/25/23 Range/Units 16:35 16:35 16:35 WBC 8.4 (4.5-11.0) X10^3/uL RBC 4.13 L (4.5-5.9) X10^6/uL Hgb 11.3 L (13.5-17.5) g/dL Hct 32.2 L (41-53) % MCV 77.9 L (80-100) fL MCH 27.5 (26-34) PG MCHC 35.2 (30-36) % RDW 15.9 H (11.6-14.8) % Plt Count 300 (150-400) X10^3/uL Neut % (Auto) 73.5 (50-75) % Lymph % (Auto) 14.6 L (25-40) % [place] % (Auto) 8.4 (3-14) % Eos % (Auto) 2.6 (2-4) % Baso % (Auto) 0.9 (0-2) % Neut # (Auto) 6200 (6846-4750) /uL Lymph # (Auto) 1200 (2591-2144) /uL [place] # (Auto) 700 (0-900) /uL Eos # (Auto) 200 (0-450) /uL Baso # (Auto) 100 (0-100) /uL Sodium 135 L (137-145) mmol/L Potassium 2.8 L (3.4-5.1) mmol/L Chloride 94 L (98-107) mmol/L Carbon Dioxide 30 (22-32) mmol/L BUN 11 (9-20) mg/dL Creatinine 0.71 (0.66-1.25) mg/dL Estimated GFR > 60 (>60) mL/min BUN/Creatinine Ratio 15.5 (6-22) Glucose 171 H (80-110) mg/dL Calcium 8.7 (8.4-10.2) mg/dL Magnesium 1.9 (1.6-2.3) mg/dL Total Bilirubin 0.7 (0.2-1.3) mg/dL AST 20 (17-59) IU/L ALT 17 (<50) IU/L Alkaline Phosphatase 81 (38-126) U/L Total Protein 7.4 (6.3-8.2) g/dL Albumin 4.0 (3.5-5.0) g/dL Globulin 3.4 (1.7-4.1) g/dL Albumin/Globulin Ratio 1.2 (1.0-2.8) Lipase 28 (23-300) U/L Ur Bilirubin Confirm (Negative) 02/25/23 02/25/23 Range/Units 16:40 22:22 WBC (4.5-11.0) X10^3/uL RBC (4.5-5.9) X10^6/uL Hgb (13.5-17.5) g/dL Hct (41-53) % MCV (80-100) fL MCH (26-34) PG MCHC (30-36) % RDW (11.6-14.8) % Plt Count (150-400) X10^3/uL Neut % (Auto) (50-75) % Lymph % (Auto) (25-40) % [place] % (Auto) (3-14) % Eos % (Auto) (2-4) % Baso % (Auto) (0-2) % Neut # (Auto) (9616-7505) /uL Lymph # (Auto) (4585-0686) /uL [place] # (Auto) (0-900) /uL Eos # (Auto) (0-450) /uL Baso # (Auto) (0-100) /uL Sodium 134 L (137-145) mmol/L Potassium 4.0 D (3.4-5.1) mmol/L Chloride 98 (98-107) mmol/L Carbon Dioxide 31 (22-32) mmol/L BUN 13 (9-20) mg/dL Creatinine 0.65 L (0.66-1.25) mg/dL Estimated GFR > 60 (>60) mL/min BUN/Creatinine Ratio 20.0 (6-22) Glucose 129 H (80-110) mg/dL Calcium 8.4 (8.4-10.2) mg/dL Magnesium (1.6-2.3) mg/dL Total Bilirubin (0.2-1.3) mg/dL AST (17-59) IU/L ALT (<50) IU/L Alkaline Phosphatase (38-126) U/L Total Protein (6.3-8.2) g/dL Albumin (3.5-5.0) g/dL Globulin (1.7-4.1) g/dL Albumin/Globulin Ratio (1.0-2.8) Lipase (23-300) U/L Ur Bilirubin Confirm Negative (Negative) Urine Dip Bedside Urine Glucose Negative Bedside Urine Bilirubin + 1 Bedside Urine Ketone - Negative Urine Specific [place] 1.025 Bedside Urine Occult Blood - Negative Bedside Urine pH 6 Bedside Urine Protein +/- 15 Bedside Urine Urobilinogen - Negative Bedside Urine Nitrite - Negative Bedside Urine Leukocytes - Negative Esterase Point of care testing: Urine Dip Bedside Urine Glucose Negative Bedside Urine Bilirubin + 1 Bedside Urine Ketone - Negative Urine Specific [place] 1.025 Bedside Urine Occult Blood - Negative Bedside Urine pH 6 Bedside Urine Protein +/- 15 Bedside Urine Urobilinogen - Negative Bedside Urine Nitrite - Negative Bedside Urine Leukocytes - Negative Esterase MDM Narrative Medical decision making narrative: CC: 77M with severe low back pain and radiation down left leg with loss of control of bladder Complicating co-morbidities: Age, hypertension, prior prostate cancer Data collected from: Patient Medical records reviewed: Prior notes reviewed in our EMR Differential considered, but not limited to: Muscle spasm, lumbar radiculopathy, cauda equina, epidural abscess, hematoma, metastatic disease versus other Exam documented above, pertinent findings include: Midline lumbar tenderness to palpation, left lower extremity with decreased reflexes and sensation, pulses intact Lab Test results independently reviewed as above. Pertinent findings: No leukocytosis or left shift significant anemia. Testing 2.8, improved to 4 after replacement Independently reviewed EKG as above Imaging studies independently reviewed: Lumbar MRI obtained and shows no high-grade spinal stenosis however the severe left-sided foraminal narrowing Treatments: pain control, steroids, valium Re-evaluations: pain well controlled Discussion: Patient presents with severe left-sided radicular symptoms in the absence of fever or anticoagulants. He does have known, longstanding low back pain but given his complaint of worsening pain and possible urinary issues advanced imaging in the for so lumbar MRI was obtained which thankfully showed no signs of a neurosurgical emergency. During our visit his symptom was tremendously improved with above-stated therapies. He is given contact information for local [facility] orthopedist as and a few new prescriptions. Return precautions including worsening pain, weakness, bowel or bladder control problems, fever or other concerning symptoms Disposition: see below, along with detailed discharge instructions that have been reviewed with patient as well as indications for ED re-evaluation and additional outpatient follow up Discharge Plan Departure Patient Disposition: Home Clinical Impression: Acute lumbar radiculopathy, Acute hypokalemia Instructions: DI for Hypokalemia, DI for Lumbar Radiculopathy Activity Restrictions/Additional Instructions: *You have been diagnosed with [hypokalemia and lumbar radiculopathy] *What to do: *Please continue to take your regular medications as directed. [ x] New medication prescriptions sent to your pharmacy: [[facility] ] [ ] New medication written as a paper prescription [ ] No new medications given *Please follow up with your primary care provider in 2-3 days, call for an appointment. Let them know you were seen in the Emergency Department and that we ask that you be seen in follow up. We will electronically transmit a record of today's note if your PCP is in our system *If you do not have a primary care provider please contact the [facility] Resource line at [phone]. They will ask some questions about your medical history and help get you set up with a doctor in the community. *Return to Emergency Department if you should have any new, worsening or concerning symptoms, such as [fever greater than 101 F, shaking chills, worsening pain, persistent vomiting or other bothersome symptoms] You have been prescribed a short course of narcotic medications. These are potentially dangerous and addictive medications that should be used carefully. While on these medications you cannot drive or operate heavy machinery. Additionally, you cannot sign legal documents or perform any duties such as this. Many people get constipated on narcotic medications so it would be advisable to discuss stool softeners with the pharmacist when you shrimp picker your prescription. Please understand that we cannot provide further refills of narcotics or controlled substances through the ED and your pain management will need to be through your Primary Care Provider Prescriptions: New ketorolac 10 mg tablet 10 mg PO Q6H PRN (Reason: pain) Qty: 14 0RF diazepam [Valium] 2 mg tablet 2 mg PO BID-TID PRN (Reason: muscle spasm) Qty: 10 0RF methylprednisolone [Medrol (Dennis)] 4 mg tablets,dose pack See Rx Instructions .ROUTE .COMPLEX Qty: 21 0RF Rx Instructions: orally per package directions potassium chloride 20 mEq tablet extended release 20 meq PO BID Qty: 10 0RF No Action fluoxetine 10 mg capsule See Rx Instructions .ROUTE .COMPLEX Qty: 90 3RF Dose Instruction: take 1 capsule by mouth once daily WITH 20MG CAP DAILY TOTAL 30 MG DAILY Rx Instructions: take 1 capsule by mouth once daily WITH 20MG CAP DAILY TOTAL 30 MG DAILY fluoxetine 20 mg capsule 20 mg PO DAILY Qty: 90 3RF Rx Instructions: Take with 10 mg to complete 30 mg dose albuterol sulfate 2.5 mg /3 mL (0.083 %) solution for nebulization 2.5 mg Continuous Nebulization Q6HP PRN (Reason: shortness of breath or wheezing) Qty: 360 2RF albuterol sulfate 90 mcg/actuation HFA aerosol inhaler 1 inh INHALATION Q4-6H PRN (Reason: shortness of breath) Qty: 18 4RF omeprazole 40 mg capsule,delayed release(DR/EC) 40 mg PO DAILY Qty: 90 3RF Rx Instructions: take 1 capsule by mouth once daily lidocaine 5 % adhesive patch,medicated 2 patch topical DAILY Qty: 30 1RF Rx Instructions: leave on most painful area for up to 12 hrs metoprolol succinate 100 mg tablet extended release 24 hr 100 mg PO DAILY Qty: 90 1RF azithromycin 500 mg tablet See Rx Instructions PO .COMPLEX Qty: 6 0RF Rx Instructions: For 250 mg dose pack: take 500 mg today (day 1), then 250 mg for 4 days (days 2-5) PO meclizine 25 mg tablet 25 mg PO TID PRN (Reason: dizziness) Qty: 30 0RF ketoconazole 2 % cream 1 applic topical BID Qty: 30 1RF oxycodone 10 mg tablet 10 mg PO QID PRN (Reason: pain) Qty: 120 0RF methocarbamol 500 mg tablet 500 mg PO TID PRN (Reason: muscle spasm) Qty: 60 1RF Disabled Parking Permit 1 1 % SEEINSTR Rx Instructions: Valid for 5 years sulfasalazine 500 mg tablet 1,000 mg PO BID amlodipine 5 mg tablet 5 mg PO BEDTIME Patient Comments: pt received dose in hospital 11/10/19 early AM admit to [facility] valacyclovir 1 gram tablet 1,000 mg PO Q8H PRN (Reason: Breakout) hydrochlorothiazide 25 mg tablet 12.5 mg PO QAM losartan 100 mg tablet 100 mg PO DAILY polyethylene glycol 3350 17 gram Powder In Packet 17 g PO DAILY Qty: 14 0RF ibuprofen 400 mg Tablet 400 mg PO Q4HR PRN (Reason: Pain, Mild (1-3)) Qty: 60 0RF aspirin 81 mg capsule 81 mg PO BID Qty: 60 0RF Referrals: Edilberto Snell DO [Primary Care Provider] - Stand Alone Forms: Patient Portal/API
[2023-02-25] MEDS: POTASSIUM CHLORIDE IN WATER 10 MEQ/100 ML PIGGYBACK 66 MEQ IV (20:42)
[2023-02-25] MEDS: HYDROMORPHONE 1 MG INJ IV (21:42)
[2023-02-25 22:44] LABS: Blood Urea Nitrogen 13 mg/dL (9-20); Calcium 8.4 mg/dL (8.4-10.2); Carbon Dioxide 31 mmol/L (22-32); Chloride 98 mmol/L (98-107); Estimated Glomerular Filt Rate > 60 mL/min (>60); Glucose 129 mg/dL (80-110); HEMOLYSIS < 15 (0-50); Sodium 134 mmol/L (137-145)
--- NOTE | 2023-02-26 00:21 | PC.NURSE ---
Pt rx'd oxycodone/tylenol PP for DC. Pt stated tylenol causes him a severe rash & refused PP. PP returned.
[2023-02-26] MEDS: HYDROMORPHONE 1 MG INJ IV (00:32)
[2023-02-26 00:49] VITALS: BP 144/82; PULSE 76; RESP 20; TEMP 36.3; O2SAT 97
== END 2023-02-26 00:51 | disposition home or self-care (01) ==
PROVIDERS: Emergency Medicine; Emergency Provider Emergency Medicine; PCP Family Medicine
DX: M54.16 Radiculopathy, lumbar region (principal); E87.6 Hypokalemia
CPT/HCPCS: 36415; 72148; 80048; 80053; 81003; 83690; 83735; 85025; 96365; 96366; 96375; 96376; 99284; J1100; J1170; J3360

== ENCOUNTER 2023-03-06 10:35 | Emergency (ER) | payer MEDICARE, OTHER, SELFPAY ==
[2022-11-15 12:10] VITALS: BMI 30.8
[2023-03-06] VITALS (8 sets, daily range): BP systolic 94–148; BP diastolic 51–88; PULSE 65–79; RESP 16–24; TEMP 36.7; O2SAT 91–99
--- NOTE | 2023-03-06 10:45 | DI.RAD.S_ITS ---
PROCEDURE: XR CHEST 1V INDICATIONS: chest pain TECHNIQUE: One view of the chest was acquired. COMPARISON: [facility], CR, XR CHEST 1V, 12/11/2022, 18:13. FINDINGS: Surgical changes and devices: Postsurgical changes from bilateral shoulder arthroplasties. Lumbar spinal fusion hardware is partially imaged. Lungs and pleura: Probable benign calcified granulomas in both lungs. No acute pulmonary opacity. No pleural effusions or pneumothorax. Mediastinum: Mediastinal contours appear normal. Heart size is normal. Bones and chest wall: No suspicious bony lesions. Overlying soft tissues appear unremarkable. IMPRESSION: No acute cardiopulmonary abnormality. Approved by: Krishna Chavez M.D. on 03/06/2023 at 11:10
--- NOTE | 2023-03-06 10:59 | ED_ITS ---
HPI - Chest Pain General Chief Complaint: Chest Pain Stated Complaint: CHEST PAIN AT PT; EMS RECOMMENDED TO COME Time Seen by Provider: 03/06/23 10:37 Mode of arrival: Wheelchair Limitations: no limitations History of Present Illness HPI narrative: This a 77-year-old male with history of hypertension, depression, chronic back pain with multiple back surgeries and remote history of IV drug abuse. Patient presents with complaint of chest pain that occurred he states he got off the elevator to go to physical therapy for his shoulder. Had substernal chest pain without radiation for about 15 minutes. He states he felt short of breath, he got a little bit sweaty, he denies any radiation. He states it felt like pressure. Patient denies any syncope or lightheadedness. He did feel a little dizzy. He denies fevers or chills, no cough or congestion. He is had some chronic postnasal drainage longstanding. Denies any nausea or vomiting. He states he chronically has constipation that alternates with diarrhea. He denies any dysuria, urgency or frequency. No swelling in his extremities. Patient states he is on medication for hypertension he had 1 prior episode similar to this and was very hypertensive was hospitalized overnight for blood pressure management discharged home on blood pressure medications. No dyslipidemia, he used to take an aspirin what was told to stop. He takes same medication for depression longstanding and medication for chronic back pain. He states he is had 9 back surgeries, prior cholecystectomy. He had left shoulder surgery about 90 days ago, he is had a partial colectomy. Patient states he quit using tobacco, alcohol and recreational drugs including IV drugs about [address] Snell is his primary care. He has been following with Orthopedic surgery where his back and shoulder issues. Related Data Home Medications Medication Instructions Recorded Confirmed Disabled Parking Permit 1 % SEEINSTR 11/08/20 03/01/23 sulfasalazine 500 mg tablet 1,000 mg PO BID 11/10/20 03/01/23 amlodipine 5 mg tablet 5 mg PO BEDTIME 11/08/22 03/01/23 valacyclovir 1 gram tablet 1,000 mg PO Q8H PRN Breakout 11/08/22 03/01/23 hydrochlorothiazide 25 mg tablet 12.5 mg PO QAM 11/15/22 03/01/23 losartan 100 mg tablet 100 mg PO DAILY 11/15/22 03/01/23 Previous Rx's Medication Instructions Recorded fluoxetine 10 mg capsule See Rx Instructions .Route 08/14/22 .COMPLEX #90 caps fluoxetine 20 mg capsule 20 mg PO DAILY #90 caps 08/14/22 meclizine 25 mg tablet 25 mg PO TID PRN dizziness #30 tabs 10/16/22 albuterol sulfate 2.5 mg/3 mL 2.5 mg (3 mL) continuous 10/24/22 (0.083 %) solution for nebulization nebulization Q6HP PRN shortness of breath or wheezing #360 mL aspirin 81 mg capsule 81 mg PO BID #60 caps 11/16/22 ibuprofen 400 mg tablet 400 mg PO Q4HR PRN Pain, Mild 11/16/22 (1-3) #60 tabs polyethylene glycol 3350 17 gram 17 g PO DAILY #14 ea 11/16/22 oral powder packet azithromycin 500 mg tablet See Rx Instructions PO .COMPLEX #6 11/28/22 tabs albuterol sulfate 90 mcg/actuation 1 inh inhalation Q4-6H PRN 12/27/22 aerosol inhaler shortness of breath #18 grams omeprazole 40 mg capsule,delayed 40 mg PO DAILY #90 caps 01/01/23 release lidocaine 5 % topical patch 2 patch topical DAILY #30 ea 01/08/23 metoprolol succinate 100 mg 100 mg PO DAILY #90 tabs 01/24/23 tablet,extended release 24 hr ketoconazole 2 % topical cream 1 applic topical BID #30 grams 02/08/23 methocarbamol 500 mg tablet 500 mg PO TID PRN muscle spasm #60 02/08/23 tabs oxycodone 10 mg tablet 10 mg PO QID PRN pain #120 tabs 02/08/23 diazepam 2 mg tablet (Valium) 2 mg PO BID-TID PRN muscle spasm 02/26/23 #10 tabs ketorolac 10 mg tablet 10 mg PO Q6H PRN pain #14 tabs 02/26/23 methylprednisolone 4 mg tablets in See Rx Instructions PO .COMPLEX 02/26/23 a dose pack (Medrol (Dennis)) #21 ea potassium chloride 20 mEq 20 meq PO BID #10 tabs 02/26/23 tablet,extended release hydromorphone 2 mg tablet 2 mg PO Q6H PRN pain #60 tabs 03/01/23 (Dilaudid) potassium chloride 10 mEq 10 meq PO DAILY #30 caps 03/01/23 capsule,extended release Allergies Allergy/AdvReac Type Severity Reaction Status Date / Time cyclobenzaprine Allergy Severe Dizziness, Verified 03/06/23 10:44 [From Flexeril] I bounce off ag acetaminophen [ACETAMINOPHEN] AdvReac Unknown Can't take Verified 03/06/23 10:44 r/t Hep C; upset stomach Review of Systems Review of Systems ROS Unobtainable: All systems reviewed & are unremarkable except as noted in HPI and below Patient History Medical History Abdominal wall pain in both lower quadrants Acute exacerbation of chronic bronchitis Adhesive capsulitis Aftercare following left shoulder joint replacement surgery Anemia Anxiety Arthritis (Unknown) Chronic ankle pain, bilateral Chronic pain syndrome (Unknown) Colles' fracture Constipation Depression (Unknown) Fibromyalgia Foraminal stenosis of lumbar region Hepatitis C (Unknown) Hypertension (Unknown) Impotence (Unknown) Kidney stones (Unknown) Left lateral epicondylitis Left shoulder strain Migraines (Unknown) Oral lesion Peripheral neuropathy Pneumonia (~2017) Preoperative clearance Prostate cancer (Unknown) PTSD (post-traumatic stress disorder) (Unknown) Restless leg syndrome (Unknown) Rheumatoid arthritis Right wrist pain Right wrist sprain Sinus drainage Skin cancer (Unknown) Tinea Surgical History History of ankle surgery History of back surgery History of carpal tunnel repair History of lumbar fusion History of lumbar fusion (05/10/22) History of prosthetic unicompartmental arthroplasty of right knee History of tonsillectomy History of total replacement of right shoulder joint Hx of foot surgery Hx of laminectomy (10/2012) Status post cholecystectomy Status post knee surgery Family History Father Heart disease Mother No problems noted. Social History marital status: household members: spouse lives independently: Yes occupational status: previously employed Smoking Status: Former smoker Tobacco: How many years used: 20 quit status: has quit before alcohol intake: former substance use type: former substance user and marijuana Smoking Status: Former smoker tobacco type: cigarettes Substance Use Type: does not use, former substance user and IV drugs Exam Narrative Exam Narrative: GENERAL: Alert and oriented x three, well-nourished in mild distress HEENT: Head normocephalic, atraumatic, EOMI, pupils reactive, face symmetric, moist mucous membranes NECK: Supple, full range of motion CARDIOVASCULAR: Regular rate and rhythm without murmurs, rubs or gallop No JVD, no swelling lower extremity or upper extremities. No reproducible chest pain. RESPIRATORY: Breath sounds equal bilaterally, no wheezes rales or rhonchi. No t achypnea or accessory muscle use. ABDOMEN: Soft, nontender. Normoactive bowel sounds all 4 quadrants. No guarding or rebound, rigidity, no mass : No CVA tenderness EXTREMITIES: Normal range of motion, no clubbing or edema. 2+ pulses bilateral upper and lower extremities. Neurovascularly intact NEUROLOGICAL: Cranial nerves II through XII grossly intact. Moving all extremities SKIN: Warm, dry, no petechiae, no rashes or lesions. Initial Vital Signs Initial Vital Signs: Vital Signs Temperature 98.1 F 03/06/23 10:42 Pulse Rate 71 03/06/23 10:42 Respiratory Rate 18 03/06/23 10:42 Blood Pressure 148/88 H 03/06/23 10:42 Pulse Oximetry 99 03/06/23 10:42 Oxygen Delivery Method Room Air 03/06/23 10:42 Course Orders Ordered: ED Orders 03/06/23 10:45 XR chest 1V Stat 03/06/23 10:55 BNP [NT-proBNP (BNP-Adult 18+)] Stat Complete Blood Count AUTO DIFF Stat Comprehensive Metabolic Panel Stat Lipase Stat Magnesium Stat PTT Partial Thromboplastin Rao Stat Prothrombin Time INR Stat Troponin & CK Cardiac Panel Stat 03/06/23 11:33 D Dimer Stat 03/06/23 11:56 COVID19 -Nasal RAPID Stat 03/06/23 12:16 CT angio chest PE protocol Stat 03/06/23 12:55 Trop I [Troponin I] Stat Discontinued Medications Aspirin (Aspirin 81 Mg Chew Tab) 324 mg PO NOW ONE Stop: 03/06/23 10:46 Last Admin: 03/06/23 11:54 Dose: 324 mg Documented By: BS Hydromorphone HCl (Hydromorphone 2 Mg Tablet) 2 mg PO NOW ONE Stop: 03/06/23 13:15 Last Admin: 03/06/23 13:18 Dose: 2 mg Documented By: YARI Vital Signs Vital signs: Vital Signs - 8 hr 03/06/23 11:30 03/06/23 11:46 03/06/23 11:46 Pulse Rate 68 67 Respiratory Rate 16 24 Blood Pressure 94/61 Pulse Oximetry 96 91 Oxygen Delivery Method 03/06/23 12:14 03/06/23 12:16 03/06/23 12:16 Pulse Rate 79 67 Respiratory Rate 19 17 Blood Pressure 110/52 L Pulse Oximetry 97 Oxygen Delivery Method Room Air 03/06/23 13:00 03/06/23 13:52 03/06/23 14:01 Pulse Rate 65 Respiratory Rate 22 Blood Pressure 115/58 L 100/51 L Pulse Oximetry 99 Oxygen Delivery Method 03/06/23 14:01 Pulse Rate Respiratory Rate 18 Blood Pressure Pulse Oximetry 97 Oxygen Delivery Method Room Air MDM - Chest Pain Lab Data 03/06/23 10:55 03/06/23 10:55 Labs: Lab Results 03/06/23 03/06/23 03/06/23 Range/Units 10:55 10:55 10:55 WBC 7.2 (4.5-11.0) X10^3/uL RBC 3.60 L (4.5-5.9) X10^6/uL Hgb 10.0 L (13.5-17.5) g/dL Hct 28.8 L (41-53) % MCV 80.0 (80-100) fL MCH 27.6 (26-34) PG MCHC 34.6 (30-36) % RDW 16.0 H (11.6-14.8) % Plt Count 278 (150-400) X10^3/uL Neut % (Auto) 63.7 (50-75) % Lymph % (Auto) 12.8 L (25-40) % Antelope % (Auto) 19.8 H (3-14) % Eos % (Auto) 3.1 (2-4) % Baso % (Auto) 0.6 (0-2) % Neut # (Auto) 4600 (3953-2420) /uL Lymph # (Auto) 900 L (2200-1709) /uL Antelope # (Auto) 1400 H (0-900) /uL Eos # (Auto) 200 (0-450) /uL Baso # (Auto) 0 (0-100) /uL PT 13.6 H (10.1-12.7) SECONDS INR 1.2 (0.9-1.3) APTT 31 (26-36) SECONDS D-Dimer (<500) ng/ml Sodium 132 L (137-145) mmol/L Potassium 3.4 (3.4-5.1) mmol/L Chloride 93 L (98-107) mmol/L Carbon Dioxide 34 H (22-32) mmol/L BUN 12 (9-20) mg/dL Creatinine 0.75 (0.66-1.25) mg/dL Estimated GFR > 60 (>60) mL/min BUN/Creatinine Ratio 16.0 (6-22) Glucose 79 L (80-110) mg/dL Calcium 8.3 L (8.4-10.2) mg/dL Magnesium 1.9 (1.6-2.3) mg/dL Total Bilirubin 0.6 (0.2-1.3) mg/dL AST 25 (17-59) IU/L ALT 19 (<50) IU/L Alkaline Phosphatase 80 (38-126) U/L Total Creatine Kinase 164 (55-170) U/L CK-MB (CK-2) 1.39 (<2.37) ng/mL CK-MB (CK-2) Rel Index 0.8 L (1.5-5.0) % Troponin I < 0.012 (0.01-0.034) ng/mL NT-Pro-B Natriuret Pep (<450) pg/mL Total Protein 7.0 (6.3-8.2) g/dL Albumin 3.8 (3.5-5.0) g/dL Globulin 3.2 (1.7-4.1) g/dL Albumin/Globulin Ratio 1.2 (1.0-2.8) Lipase 20 L (23-300) U/L SARS-CoV-2 (PCR) (Negative) 03/06/23 03/06/23 03/06/23 Range/Units 10:55 11:33 11:56 WBC (4.5-11.0) X10^3/uL RBC (4.5-5.9) X10^6/uL Hgb (13.5-17.5) g/dL Hct (41-53) % MCV (80-100) fL MCH (26-34) PG MCHC (30-36) % RDW (11.6-14.8) % Plt Count (150-400) X10^3/uL Neut % (Auto) (50-75) % Lymph % (Auto) (25-40) % Antelope % (Auto) (3-14) % Eos % (Auto) (2-4) % Baso % (Auto) (0-2) % Neut # (Auto) (4032-9826) /uL Lymph # (Auto) (4662-1334) /uL Antelope # (Auto) (0-900) /uL Eos # (Auto) (0-450) /uL Baso # (Auto) (0-100) /uL PT (10.1-12.7) SECONDS INR (0.9-1.3) APTT (26-36) SECONDS D-Dimer 1928 H (<500) ng/ml Sodium (137-145) mmol/L Potassium (3.4-5.1) mmol/L Chloride (98-107) mmol/L Carbon Dioxide (22-32) mmol/L BUN (9-20) mg/dL Creatinine (0.66-1.25) mg/dL Estimated GFR (>60) mL/min BUN/Creatinine Ratio (6-22) Glucose (80-110) mg/dL Calcium (8.4-10.2) mg/dL Magnesium (1.6-2.3) mg/dL Total Bilirubin (0.2-1.3) mg/dL AST (17-59) IU/L ALT (<50) IU/L Alkaline Phosphatase (38-126) U/L Total Creatine Kinase (55-170) U/L CK-MB (CK-2) (<2.37) ng/mL CK-MB (CK-2) Rel Index (1.5-5.0) % Troponin I (0.01-0.034) ng/mL NT-Pro-B Natriuret Pep 301 (<450) pg/mL Total Protein (6.3-8.2) g/dL Albumin (3.5-5.0) g/dL Globulin (1.7-4.1) g/dL Albumin/Globulin Ratio (1.0-2.8) Lipase (23-300) U/L SARS-CoV-2 (PCR) Negative (Negative) 03/06/23 Range/Units 12:55 WBC (4.5-11.0) X10^3/uL RBC (4.5-5.9) X10^6/uL Hgb (13.5-17.5) g/dL Hct (41-53) % MCV (80-100) fL MCH (26-34) PG MCHC (30-36) % RDW (11.6-14.8) % Plt Count (150-400) X10^3/uL Neut % (Auto) (50-75) % Lymph % (Auto) (25-40) % Antelope % (Auto) (3-14) % Eos % (Auto) (2-4) % Baso % (Auto) (0-2) % Neut # (Auto) (3644-3465) /uL Lymph # (Auto) (1507-0204) /uL Antelope # (Auto) (0-900) /uL Eos # (Auto) (0-450) /uL Baso # (Auto) (0-100) /uL PT (10.1-12.7) SECONDS INR (0.9-1.3) APTT (26-36) SECONDS D-Dimer (<500) ng/ml Sodium (137-145) mmol/L Potassium (3.4-5.1) mmol/L Chloride (98-107) mmol/L Carbon Dioxide (22-32) mmol/L BUN (9-20) mg/dL Creatinine (0.66-1.25) mg/dL Estimated GFR (>60) mL/min BUN/Creatinine Ratio (6-22) Glucose (80-110) mg/dL Calcium (8.4-10.2) mg/dL Magnesium (1.6-2.3) mg/dL Total Bilirubin (0.2-1.3) mg/dL AST (17-59) IU/L ALT (<50) IU/L Alkaline Phosphatase (38-126) U/L Total Creatine Kinase (55-170) U/L CK-MB (CK-2) (<2.37) ng/mL CK-MB (CK-2) Rel Index (1.5-5.0) % Troponin I < 0.012 (0.01-0.034) ng/mL NT-Pro-B Natriuret Pep (<450) pg/mL Total Protein (6.3-8.2) g/dL Albumin (3.5-5.0) g/dL Globulin (1.7-4.1) g/dL Albumin/Globulin Ratio (1.0-2.8) Lipase (23-300) U/L SARS-CoV-2 (PCR) (Negative) Imaging Data Chest x-ray: Radiologist's Impression: [address] [address] XRay Report Signed Patient: Barrett Tam MR#: [id number] : 1945 Acct:[id number] Age/Sex: 77 / M Date of Service: 03/06/23 Loc: ED Accession Number: [id number] ?? Procedure: XR chest 1V Ordering Provider: Carie Escalante D.O. PROCEDURE:? XR CHEST 1V ? INDICATIONS:? chest pain ? TECHNIQUE:? One view of the chest was acquired.? ? COMPARISON:? [facility], , XR CHEST 1V, 12/11/2022, 18:13. ? FINDINGS:? ? Surgical changes and devices:? Postsurgical changes from bilateral shoulder arthroplasties.? Lumbar spinal fusion hardware is partially imaged. ? Lungs and pleura:? Probable benign calcified granulomas in both lungs.? No acute pulmonary opacity.? No pleural effusions or pneumothorax.? ? Mediastinum:? Mediastinal contours appear normal.? Heart size is normal.? ? Bones and chest wall:? No suspicious bony lesions.? Overlying soft tissues appear unremarkable.? ? IMPRESSION:? No acute cardiopulmonary abnormality. ? ? ? Approved by: Krishna Chavez M.D. on 03/06/2023 at 11:10? CT scan - chest: Radiologist's Impression: [address] [address] [address] Scan Report Signed Patient: Barrett Tam MR#: [id number] : 1945 Acct:[id number] Age/Sex: 77 / M Date of Service: 03/06/23 Loc: ED Accession Number: [id number] ?? Procedure: CT angio chest PE protocol Ordering Provider: Carie Escalante D.O. PROCEDURE:? CT ANGIO CHEST PE PROTOCOL ? INDICATIONS:? chest pain, substernal, improved, had sx 3 months ago ? TECHNIQUE:? After the administration of intravenous contrast, 2 mm thick sections acquired from the pulmonary apices to the posterior costophrenic angles.? 3-dimensional maximum intensity projection (MIP) coronal and sagittal reformats were then acquired through the thorax.? For radiation dose reduction, the following was used:? automated exposure control, adjustment of mA and/or kV according to patient size.? ? COMPARISON:? [facility], CT, CT ANGIO CHEST PE PROTOCOL, 11/10/2020, 7:28. ? FINDINGS:? Image quality:? Excellent.? ? Pulmonary arteries:? Pulmonary arteries are normal in size, and demonstrate no intraluminal filling defects to suggest central pulmonary embolism.? ? Lungs and pleura:? Lungs are clear.? No pleural effusions or pneumothorax.? Central and peripheral airways are patent.? Calcified granuloma. ? Mediastinum:? Heart size is normal, without pericardial effusion.? No mediastin al or hilar adenopathy.? Thoracic aorta is normal in caliber and enhancement.? Esophagus is normal in caliber, without hiatal hernia.? Calcified hilar nodes. ? Bones and chest wall:? No suspicious bony lesions.? Ribs and thoracic spine appear intact throughout.? Thyroid gland is unremarkable.? No axillary or supraclavicular adenopathy.? Bilateral shoulder arthroplasty. ? Abdomen:? Visualized upper abdominal solid organs appear normal in the early arterial phase of enhancement.? ? IMPRESSION:? No pulmonary embolus or findings to explain the patient's substernal pain. ? Sequela of prior granulomatous disease.? ? Dictated by: Jason Hdez M.D. on 03/06/2023 at 11:56 ? ? Approved by: Jason Hdez M.D. on 03/06/2023 at 11:59?? ECG Data Attestation: I personally reviewed and interpreted this ECG as follows: Prior ECG tracings: available for review Interpretation: Sinus rhythm rate of 72 SD 162 QRS 80 QTC 435. No acute ST changes appreciated. Patient has prior from 09/28/2023 which appears similar. EKG 2. Shows normal sinus rhythm rate of 65 SD 158 QRS 82 and QTC of 438. No acute ST elevation or depression noted. MDM Narrative Medical decision making narrative: This is a 77-year-old male who presents with complaint of substernal chest pressure, shortness of breath, some diaphoresis that lasted for about 15 minutes. Patient has a history of hypertension, states he had a similar episode where he was quite hypertensive several years ago. That was when he went on blood pressure medications he also states at that time he was low on his potassium. Blood pressure here is appropriate today. No acute EKG changes in comparison to September of 2023. Chest x-ray, CBC, CMP and troponin, lipase show sodium 132, CO2 of 34 normal renal function electrolytes glucose was 79. LFTs are normal. Lipase is negative. Hemoglobin is 10 was 11 to 12 in the past several months. Patient did have a recent surgery in the past 90 days were shoulder making blood clots less likely but not impossible D-dimer was obtained and is 1928 outside the age adjustment range so CT angio was obtained which is negative for blood clot or clear cause of his chest discomfort today. Repeat troponin is negative and EKG does not show acute change. Discussed with patient I would like to keep him for chest pain observation. He politely declines. We did discuss we have not ruled out cardiac causes. Patient states he will follow up with his physician he has had stress tests in the past he said they have never found anything but we discussed would be appropriate next step. I did recommend he continue with aspirin 81 mg and he can repeat at any time for your current evaluation. Discharge Plan Departure Patient Disposition: Home Clinical Impression: Chest pain Instructions: DI for Chest Pain Activity Restrictions/Additional Instructions: I would recommend observation in the hospital overnight for chest pain evaluation and stress testing. You were workup today did not show a heart attack at this moment but does not rule out a cardiac cause of your symptoms. Please call to set follow-up with your physician. Please continue your home medications as prescribed. I would recommend 81 mg aspirin daily until you follow-up with your physician. Please return for new or worsening chest pain, shortness of breath, lightheadedness or passing out, new swelling in her extremities or other new or concerning changes. Prescriptions: No Action fluoxetine 10 mg capsule See Rx Instructions .ROUTE .COMPLEX Qty: 90 3RF Dose Instruction: take 1 capsule by mouth once daily WITH 20MG CAP DAILY TOTAL 30 MG DAILY Rx Instructions: take 1 capsule by mouth once daily WITH 20MG CAP DAILY TOTAL 30 MG DAILY fluoxetine 20 mg capsule 20 mg PO DAILY Qty: 90 3RF Rx Instructions: Take with 10 mg to complete 30 mg dose albuterol sulfate 2.5 mg /3 mL (0.083 %) solution for nebulization 2.5 mg Continuous Nebulization Q6HP PRN (Reason: shortness of breath or wheezing) Qty: 360 2RF albuterol sulfate 90 mcg/actuation HFA aerosol inhaler 1 inh INHALATION Q4-6H PRN (Reason: shortness of breath) Qty: 18 4RF omeprazole 40 mg capsule,delayed release(DR/EC) 40 mg PO DAILY Qty: 90 3RF Rx Instructions: take 1 capsule by mouth once daily lidocaine 5 % adhesive patch,medicated 2 patch topical DAILY Qty: 30 1RF Rx Instructions: leave on most painful area for up to 12 hrs metoprolol succinate 100 mg tablet extended release 24 hr 100 mg PO DAILY Qty: 90 1RF azithromycin 500 mg tablet See Rx Instructions PO .COMPLEX Qty: 6 0RF Rx Instructions: For 250 mg dose pack: take 500 mg today (day 1), then 250 mg for 4 days (days 2-5) PO meclizine 25 mg tablet 25 mg PO TID PRN (Reason: dizziness) Qty: 30 0RF ketoconazole 2 % cream 1 applic topical BID Qty: 30 1RF oxycodone 10 mg tablet 10 mg PO QID PRN (Reason: pain) Qty: 120 0RF methocarbamol 500 mg tablet 500 mg PO TID PRN (Reason: muscle spasm) Qty: 60 1RF hydromorphone [Dilaudid] 2 mg tablet 2 mg PO Q6H PRN (Reason: pain) Qty: 60 0RF potassium chloride 10 mEq capsule, extended release 10 meq PO DAILY Qty: 30 1RF ketorolac 10 mg tablet 10 mg PO Q6H PRN (Reason: pain) Qty: 14 0RF diazepam [Valium] 2 mg tablet 2 mg PO BID-TID PRN (Reason: muscle spasm) Qty: 10 0RF methylprednisolone [Medrol (Dennis)] 4 mg tablets,dose pack See Rx Instructions .ROUTE .COMPLEX Qty: 21 0RF Rx Instructions: orally per package directions potassium chloride 20 mEq tablet extended release 20 meq PO BID Qty: 10 0RF Disabled Parking Permit 1 1 % SEEINSTR Rx Instructions: Valid for 5 years sulfasalazine 500 mg tablet 1,000 mg PO BID amlodipine 5 mg tablet 5 mg PO BEDTIME Patient Comments: pt received dose in hospital 11/10/19 early AM admit to AC valacyclovir 1 gram tablet 1,000 mg PO Q8H PRN (Reason: Breakout) hydrochlorothiazide 25 mg tablet 12.5 mg PO QAM losartan 100 mg tablet 100 mg PO DAILY polyethylene glycol 3350 17 gram Powder In Packet 17 g PO DAILY Qty: 14 0RF ibuprofen 400 mg Tablet 400 mg PO Q4HR PRN (Reason: Pain, Mild (1-3)) Qty: 60 0RF aspirin 81 mg capsule 81 mg PO BID Qty: 60 0RF Referrals: Edilberto Snell, [Primary Care Provider] - Stand Alone Forms: Patient Portal/API
[2023-03-06 11:09] LABS: Add Manual Diff / Slide Review NO; Basophils Absolute Auto 0 /uL (0-100); Basophils Percent Auto 0.6 % (0-2); Eosinophils Absolute Auto 200 /uL (0-450); Eosinophils Percent Auto 3.1 % (2-4); Hematocrit 28.8 % (41-53); Lymphocytes Absolute Auto 900 /uL (1100-4500); Lymphocytes Percent Auto 12.8 % (25-40); Mean Corpuscular HGB Conc 34.6 % (30-36); Mean Corpuscular Hemoglobin 27.6 PG (26-34); Monocytes Absolute Auto 1400 /uL (0-900); Monocytes Percent Auto 19.8 % (3-14); Neutrophils Absolute Auto 4600 /uL (1500-7000); Neutrophils Percent Auto 63.7 % (50-75); Platelet Count 278 X10^3/uL (150-400); White Blood Cell Count 7.2 X10^3/uL (4.5-11.0)
[2023-03-06 11:15] LABS: INR 1.2 (0.9-1.3); Prothrombin Time 13.6 SECONDS (10.1-12.7)
[2023-03-06 11:18] LABS: PTT Partial Thromboplastin Tim 31 SECONDS (26-36)
[2023-03-06 11:19] LABS: Alanine Aminotransferase 19 IU/L (<50); Albumin 3.8 g/dL (3.5-5.0); Albumin Globulin Ratio 1.2 (1.0-2.8); Alkaline Phosphatase 80 U/L (38-126); Aspartate Aminotransferase 25 IU/L (17-59); Bilirubin Total 0.6 mg/dL (0.2-1.3); Blood Urea Nitrogen 12 mg/dL (9-20); Calcium 8.3 mg/dL (8.4-10.2); Carbon Dioxide 34 mmol/L (22-32); Chloride 93 mmol/L (98-107); Creatine Kinase 164 U/L (55-170); Estimated Glomerular Filt Rate > 60 mL/min (>60); Globulin 3.2 g/dL (1.7-4.1); Glucose 79 mg/dL (80-110); HEMOLYSIS < 15 (0-50); Lipase 20 U/L (23-300); Magnesium 1.9 mg/dL (1.6-2.3); Potassium 3.4 mmol/L (3.4-5.1); Sodium 132 mmol/L (137-145)
[2023-03-06 11:28] LABS: NT-proBNP (BNP-Adult 18+) 301 pg/mL (<450)
[2023-03-06 11:31] LABS: Troponin I < 0.012 ng/mL (0.01-0.034)
[2023-03-06 11:34] LABS: CKMB % Relative Index 0.8 % (1.5-5.0); Creatine Kinase MB 1.39 ng/mL (<2.37)
[2023-03-06] MEDS: ASPIRIN 81 MG CHEW TAB 324 MG PO (11:54)
[2023-03-06 11:55] LABS: D Dimer 1928 ng/ml (<500)
--- NOTE | 2023-03-06 12:16 | DI.CT.S_ITS ---
PROCEDURE: CT ANGIO CHEST PE PROTOCOL INDICATIONS: chest pain, substernal, improved, had sx 3 months ago TECHNIQUE: After the administration of intravenous contrast, 2 mm thick sections acquired from the pulmonary apices to the posterior costophrenic angles. 3-dimensional maximum intensity projection (MIP) coronal and sagittal reformats were then acquired through the thorax. For radiation dose reduction, the following was used: automated exposure control, adjustment of mA and/or kV according to patient size. COMPARISON: [facility], CT, CT ANGIO CHEST PE PROTOCOL, 11/10/2020, 7:28. FINDINGS: Image quality: Excellent. Pulmonary arteries: Pulmonary arteries are normal in size, and demonstrate no intraluminal filling defects to suggest central pulmonary embolism. Lungs and pleura: Lungs are clear. No pleural effusions or pneumothorax. Central and peripheral airways are patent. Calcified granuloma. Mediastinum: Heart size is normal, without pericardial effusion. No mediastinal or hilar adenopathy. Thoracic aorta is normal in caliber and enhancement. Esophagus is normal in caliber, without hiatal hernia. Calcified hilar nodes. Bones and chest wall: No suspicious bony lesions. Ribs and thoracic spine appear intact throughout. Thyroid gland is unremarkable. No axillary or supraclavicular adenopathy. Bilateral shoulder arthroplasty. Abdomen: Visualized upper abdominal solid organs appear normal in the early arterial phase of enhancement. IMPRESSION: No pulmonary embolus or findings to explain the patient's substernal pain. Sequela of prior granulomatous disease. Dictated by: Jason Hdez M.D. on 03/06/2023 at 11:56 Approved by: Jason Hdez M.D. on 03/06/2023 at 11:59
[2023-03-06 12:17] LABS: COVID19 -Nasal RAPID Negative (Negative)
[2023-03-06] MEDS: HYDROMORPHONE 2 MG TABLET PO (13:18)
[2023-03-06 13:30] LABS: Troponin I < 0.012 ng/mL (0.01-0.034)
== END 2023-03-06 14:05 | disposition home or self-care (01) ==
PROVIDERS: Emergency Provider Emergency Medicine; PCP Family Medicine
DX: R07.9 Chest pain, unspecified (principal); I10 Essential (primary) hypertension; Z20.822 Contact with and (suspected) exposure to COVID-19
CPT/HCPCS: 36415; 71045; 71275; 80053; 82550; 82553; 83690; 83735; 83880; 84484; 85025; 85379; 85610; 85730; 87635; 93005; 93010; 99284; C9803; Q9967

== ENCOUNTER 2023-03-13 19:30 | Emergency (ER) | payer MEDICARE, OTHER, SELFPAY ==
[2022-11-15 12:10] VITALS: BMI 30.8
[2023-03-13] VITALS (7 sets, daily range): BP systolic 126–147; BP diastolic 63–80; PULSE 63–77; RESP 16–26; TEMP 36.8; O2SAT 95–98
--- NOTE | 2023-03-13 19:40 | DI.RAD.S_ITS ---
PROCEDURE: XR CHEST 1V INDICATIONS: chest pain TECHNIQUE: One view of the chest was acquired. COMPARISON: [facility], CR, XR CHEST 1V, 03/06/2023, 10:52. FINDINGS: Surgical changes and devices: Bilateral shoulder prostheses are redemonstrated.. Lungs and pleura: No acute consolidation. There are bilateral dense nodules consistent with calcified granuloma again noted. No pleural effusions or pneumothorax. Mediastinum: Mediastinal contours appear normal. Heart size is normal. Bones and chest wall: No suspicious bony lesions. Overlying soft tissues appear unremarkable. IMPRESSION: 1. No acute cardiopulmonary disease. Dictated by: Hipolito Willis M.D. on 03/13/2023 at 21:02 Approved by: Hipolito Willis M.D. on 03/13/2023 at 21:03
[2023-03-13 20:24] LABS: Add Manual Diff / Slide Review NO; Basophils Absolute Auto 100 /uL (0-100); Basophils Percent Auto 1.1 % (0-2); Eosinophils Absolute Auto 300 /uL (0-450); Eosinophils Percent Auto 4.1 % (2-4); Hematocrit 34.8 % (41-53); Hemoglobin 11.9 g/dL (13.5-17.5); Lymphocytes Absolute Auto 2200 /uL (1100-4500); Lymphocytes Percent Auto 25.7 % (25-40); Mean Corpuscular HGB Conc 34.3 % (30-36); Mean Corpuscular Hemoglobin 27.1 PG (26-34); Mean Corpuscular Volume 78.9 fL (80-100); Monocytes Absolute Auto 1000 /uL (0-900); Monocytes Percent Auto 11.7 % (3-14); Neutrophils Absolute Auto 4900 /uL (1500-7000); Neutrophils Percent Auto 57.4 % (50-75); Platelet Count 356 X10^3/uL (150-400); Red Cell Distribution Width 15.8 % (11.6-14.8); White Blood Cell Count 8.5 X10^3/uL (4.5-11.0)
[2023-03-13 20:31] LABS: INR 1.1 (0.9-1.3); Prothrombin Time 12.2 SECONDS (10.1-12.7)
[2023-03-13 20:34] LABS: PTT Partial Thromboplastin Tim 30 SECONDS (26-36)
--- NOTE | 2023-03-13 20:40 | ED_ITS ---
HPI - Chest Pain General Chief Complaint: Chest Pain Stated Complaint: back pain is really bad, chest pains Time Seen by Provider: 03/13/23 20:12 Source: patient Mode of arrival: Wheelchair Limitations: no limitations History of Present Illness HPI narrative: Patient is a 77-year-old male. Has a longstanding history of back discomfort. He states that he is having his normal back discomfort that is also radiating around to his chest. He does have pain medication at home but he is out of these medications. He has called to request a refill but they have not arrived yet. He received a 15 day supply of this medication approximately 15 days ago. He states that the discomfort that he is having is just like his prior discomfort. Related Data Home Medications Medication Instructions Recorded Confirmed Disabled Parking Permit 1 % SEEINSTR 11/08/20 03/01/23 sulfasalazine 500 mg tablet 1,000 mg PO BID 11/10/20 03/01/23 amlodipine 5 mg tablet 5 mg PO BEDTIME 11/08/22 03/01/23 valacyclovir 1 gram tablet 1,000 mg PO Q8H PRN Breakout 11/08/22 03/01/23 hydrochlorothiazide 25 mg tablet 12.5 mg PO QAM 11/15/22 03/01/23 losartan 100 mg tablet 100 mg PO DAILY 11/15/22 03/01/23 Previous Rx's Medication Instructions Recorded fluoxetine 10 mg capsule See Rx Instructions .Route 08/14/22 .COMPLEX #90 caps fluoxetine 20 mg capsule 20 mg PO DAILY #90 caps 08/14/22 meclizine 25 mg tablet 25 mg PO TID PRN dizziness #30 tabs 10/16/22 albuterol sulfate 2.5 mg/3 mL 2.5 mg (3 mL) continuous 10/24/22 (0.083 %) solution for nebulization nebulization Q6HP PRN shortness of breath or wheezing #360 mL aspirin 81 mg capsule 81 mg PO BID #60 caps 11/16/22 ibuprofen 400 mg tablet 400 mg PO Q4HR PRN Pain, Mild 11/16/22 (1-3) #60 tabs polyethylene glycol 3350 17 gram 17 g PO DAILY #14 ea 11/16/22 oral powder packet azithromycin 500 mg tablet See Rx Instructions PO .COMPLEX #6 11/28/22 tabs albuterol sulfate 90 mcg/actuation 1 inh inhalation Q4-6H PRN 12/27/22 aerosol inhaler shortness of breath #18 grams omeprazole 40 mg capsule,delayed 40 mg PO DAILY #90 caps 01/01/23 release lidocaine 5 % topical patch 2 patch topical DAILY #30 ea 01/08/23 metoprolol succinate 100 mg 100 mg PO DAILY #90 tabs 01/24/23 tablet,extended release 24 hr ketoconazole 2 % topical cream 1 applic topical BID #30 grams 02/08/23 methocarbamol 500 mg tablet 500 mg PO TID PRN muscle spasm #60 02/08/23 tabs oxycodone 10 mg tablet 10 mg PO QID PRN pain #120 tabs 02/08/23 diazepam 2 mg tablet (Valium) 2 mg PO BID-TID PRN muscle spasm 02/26/23 #10 tabs ketorolac 10 mg tablet 10 mg PO Q6H PRN pain #14 tabs 02/26/23 methylprednisolone 4 mg tablets in See Rx Instructions PO .COMPLEX 02/26/23 a dose pack (Medrol (Dennis)) #21 ea potassium chloride 20 mEq 20 meq PO BID #10 tabs 02/26/23 tablet,extended release hydromorphone 2 mg tablet 2 mg PO Q6H PRN pain #60 tabs 03/01/23 (Dilaudid) potassium chloride 10 mEq 10 meq PO DAILY #30 caps 03/01/23 capsule,extended release hydromorphone 2 mg tablet 2 mg PO Q8H PRN pain #10 tabs 03/13/23 Allergies Allergy/AdvReac Type Severity Reaction Status Date / Time cyclobenzaprine Allergy Severe Dizziness, Verified 03/06/23 10:44 [From Flexeril] I bounce off ag acetaminophen [ACETAMINOPHEN] AdvReac Unknown Can't take Verified 03/06/23 10:44 r/t Hep C; upset stomach Review of Systems Constitutional Constitutional: Reports system reviewed and no additional complaints, except as documented Cardiovascular Cardiovascular: Reports system reviewed and no additional complaints, except as documented Respiratory Respiratory: Reports system reviewed and no additional complaints, except as documented Gastrointestinal Gastrointestinal: Reports system reviewed and no additional complaints, except as documented Musculoskeletal Musculoskeletal: Reports system reviewed and no additional complaints, except as documented Integumentary/Breasts Skin/Breast: Reports system reviewed and no additional complaints, except as documented Neurologic Neurologic: Reports system reviewed and no additional complaints, except as documented Hematologic/Lymphatic On Anticoagulants: No Patient History Medical History Abdominal wall pain in both lower quadrants Acute exacerbation of chronic bronchitis Adhesive capsulitis Aftercare following left shoulder joint replacement surgery Anemia Anxiety Arthritis (Unknown) Chronic ankle pain, bilateral Chronic pain syndrome (Unknown) Colles' fracture Constipation Depression (Unknown) Fibromyalgia Foraminal stenosis of lumbar region Hepatitis C (Unknown) Hypertension (Unknown) Impotence (Unknown) Kidney stones (Unknown) Left lateral epicondylitis Left shoulder strain Migraines (Unknown) Oral lesion Peripheral neuropathy Pneumonia (~2017) Preoperative clearance Prostate cancer (Unknown) PTSD (post-traumatic stress disorder) (Unknown) Restless leg syndrome (Unknown) Rheumatoid arthritis Right wrist pain Right wrist sprain Sinus drainage Skin cancer (Unknown) Tinea Surgical History History of ankle surgery History of back surgery History of carpal tunnel repair History of lumbar fusion History of lumbar fusion (05/10/22) History of prosthetic unicompartmental arthroplasty of right knee History of tonsillectomy History of total replacement of right shoulder joint Hx of foot surgery Hx of laminectomy (10/2012) Status post cholecystectomy Status post knee surgery Family History Father Heart disease Mother No problems noted. Social History marital status: household members: spouse lives independently: Yes occupational status: previously employed Smoking Status: Former smoker Tobacco: How many years used: 20 quit status: has quit before alcohol intake: former substance use type: former substance user and marijuana Smoking Status: Former smoker tobacco type: cigarettes Substance Use Type: does not use, former substance user and IV drugs Exam Initial Vital Signs Initial Vital Signs: Vital Signs Temperature 98.2 F 03/13/23 19:32 Pulse Rate 77 03/13/23 19:32 Respiratory Rate 22 03/13/23 19:32 Blood Pressure 138/73 03/13/23 19:32 Pulse Oximetry 98 03/13/23 19:32 Oxygen Delivery Method Room Air 03/13/23 19:32 Const General: cooperative and No ill appearing HENMT Head: normal to inspection and normocephalic Resp Effort & Inspection: normal respiratory effort Cardio Rate: regular rate Back/Spine/Pelvis Thoracic/Lumbar Spine: thoracic and lumbar spine normal to inspection Skin General: no rashes or lesions noted Neuro General: patient alert and patient awake Extrem General: normal to inspection Course Orders Ordered: ED Orders 03/13/23 19:40 XR chest 1V Stat EKG-12 Lead Stat 03/13/23 20:15 Complete Blood Count AUTO DIFF Stat Comprehensive Metabolic Panel Stat Lipase Stat Magnesium Stat PTT Partial Thromboplastin Rao Stat Prothrombin Time INR Stat Troponin & CK Cardiac Panel Stat Discontinued Medications Aspirin (Aspirin 81 Mg Chew Tab) 324 mg PO NOW ONE Stop: 03/13/23 19:41 Last Admin: 03/13/23 20:26 Dose: Not Given Documented By: Hydromorphone HCl (Hydromorphone 1 Mg Inj) 1 mg IV NOW ONE Stop: 03/13/23 20:41 Last Admin: 03/13/23 20:46 Dose: 1 mg Documented By: Hydromorphone HCl (Hydromorphone 1 Mg Inj) 1 mg IV NOW ONE Stop: 03/13/23 21:27 Last Admin: 03/13/23 21:35 Dose: 1 mg Documented By: SPF Ketorolac Tromethamine (Ketorolac 30 Mg/Ml Vial) 30 mg IV NOW ONE Stop: 03/13/23 20:41 Last Admin: 03/13/23 20:47 Dose: 30 mg Documented By: Vital Signs Vital signs: Vital Signs - 8 hr 03/13/23 20:22 03/13/23 20:23 03/13/23 20:23 Pulse Rate 69 69 Respiratory Rate 16 22 Blood Pressure 147/75 H Pulse Oximetry 96 96 Oxygen Delivery Method Room Air 03/13/23 20:30 03/13/23 20:30 03/13/23 21:00 Pulse Rate 73 Respiratory Rate Blood Pressure 126/69 140/80 Pulse Oximetry 95 Oxygen Delivery Method 03/13/23 21:00 03/13/23 21:30 03/13/23 21:30 Pulse Rate 67 63 Respiratory Rate 26 H 18 Blood Pressure 131/63 Pulse Oximetry 95 95 Oxygen Delivery Method Room Air Room Air 03/13/23 22:00 03/13/23 22:00 Pulse Rate 66 Respiratory Rate 20 Blood Pressure 139/65 Pulse Oximetry 95 Oxygen Delivery Method MDM - Chest Pain Lab Data Attestation: I reviewed the patient's lab results. 03/13/23 20:15 03/13/23 20:15 Labs: Lab Results 03/13/23 03/13/23 03/13/23 Range/Units 20:15 20:15 20:15 WBC 8.5 (4.5-11.0) X10^3/uL RBC 4.40 L (4.5-5.9) X10^6/uL Hgb 11.9 L (13.5-17.5) g/dL Hct 34.8 L (41-53) % MCV 78.9 L (80-100) fL MCH 27.1 (26-34) PG MCHC 34.3 (30-36) % RDW 15.8 H (11.6-14.8) % Plt Count 356 (150-400) X10^3/uL Neut % (Auto) 57.4 (50-75) % Lymph % (Auto) 25.7 (25-40) % [place] % (Auto) 11.7 (3-14) % Eos % (Auto) 4.1 H (2-4) % Baso % (Auto) 1.1 (0-2) % Neut # (Auto) 4900 (6375-5054) /uL Lymph # (Auto) 2200 (3525-4028) /uL [place] # (Auto) 1000 H (0-900) /uL Eos # (Auto) 300 (0-450) /uL Baso # (Auto) 100 (0-100) /uL PT 12.2 (10.1-12.7) SECONDS INR 1.1 (0.9-1.3) APTT 30 (26-36) SECONDS Sodium 138 (137-145) mmol/L Potassium 3.8 (3.4-5.1) mmol/L Chloride 99 (98-107) mmol/L Carbon Dioxide 30 (22-32) mmol/L BUN 17 (9-20) mg/dL Creatinine 0.88 (0.66-1.25) mg/dL Estimated GFR > 60 (>60) mL/min BUN/Creatinine Ratio 19.3 (6-22) Glucose 102 (80-110) mg/dL Calcium 8.5 (8.4-10.2) mg/dL Magnesium 2.0 (1.6-2.3) mg/dL Total Bilirubin 0.4 (0.2-1.3) mg/dL AST 19 (17-59) IU/L ALT 18 (<50) IU/L Alkaline Phosphatase 96 (38-126) U/L Total Creatine Kinase 32 L (55-170) U/L CK-MB (CK-2) TNP CK-MB (CK-2) Rel Index TNP Troponin I < 0.012 (0.01-0.034) ng/mL Total Protein 7.8 (6.3-8.2) g/dL Albumin 4.2 (3.5-5.0) g/dL Globulin 3.6 (1.7-4.1) g/dL Albumin/Globulin Ratio 1.2 (1.0-2.8) Lipase 143 D (23-300) U/L Imaging Data Chest x-ray: Radiologist's Impression: PROCEDURE:? XR CHEST 1V ? INDICATIONS:? chest pain ? TECHNIQUE:? One view of the chest was acquired.? ? COMPARISON:? [facility], , XR CHEST 1V, 03/06/2023, 10:52. ? FINDINGS:? ? Surgical changes and devices:? Bilateral shoulder prostheses are redemonstrat ed..? ? Lungs and pleura:? No acute consolidation.? There are bilateral dense nodules consistent with calcified granuloma again noted.? No pleural effusions or pneumothorax.? ? Mediastinum:? Mediastinal contours appear normal.? Heart size is normal.? ? Bones and chest wall:? No suspicious bony lesions.? Overlying soft tissues appear unremarkable.? ? IMPRESSION:? ? 1.? No acute cardiopulmonary disease. ECG Data Attestation: I personally reviewed and interpreted this ECG as follows: Interpretation: Sinus rhythm Ventricular rate is 73 Normal axis Normal QRS Normal QTC No ST T wave changes MDM Narrative Medical decision making narrative: Improvement after medications here in the emergency department. Patient was informed that he needs to get his pain medication from 1 provider either primary doctor or a [facility] [employer]. There is no indication for radiologic studies today. Discharge Plan Departure Patient Disposition: Home Clinical Impression: Back pain Instructions: DI for Chronic Pain -- Adult Activity Restrictions/Additional Instructions: You do need to take all of your medications as directed. Any further pain medications for your chronic back pain will need to come from either your prima doctor or from a [facility]. I recommend that you contact your primary doctor tomorrow for a follow-up. Prescriptions: New hydromorphone 2 mg tablet 2 mg PO Q8H PRN (Reason: pain) Qty: 10 0RF No Action fluoxetine 10 mg capsule See Rx Instructions .ROUTE .COMPLEX Qty: 90 3RF Dose Instruction: take 1 capsule by mouth once daily WITH 20MG CAP DAILY TOTAL 30 MG DAILY Rx Instructions: take 1 capsule by mouth once daily WITH 20MG CAP DAILY TOTAL 30 MG DAILY fluoxetine 20 mg capsule 20 mg PO DAILY Qty: 90 3RF Rx Instructions: Take with 10 mg to complete 30 mg dose albuterol sulfate 2.5 mg /3 mL (0.083 %) solution for nebulization 2.5 mg Continuous Nebulization Q6HP PRN (Reason: shortness of breath or wheezing) Qty: 360 2RF albuterol sulfate 90 mcg/actuation HFA aerosol inhaler 1 inh INHALATION Q4-6H PRN (Reason: shortness of breath) Qty: 18 4RF omeprazole 40 mg capsule,delayed release(DR/EC) 40 mg PO DAILY Qty: 90 3RF Rx Instructions: take 1 capsule by mouth once daily lidocaine 5 % adhesive patch,medicated 2 patch topical DAILY Qty: 30 1RF Rx Instructions: leave on most painful area for up to 12 hrs metoprolol succinate 100 mg tablet extended release 24 hr 100 mg PO DAILY Qty: 90 1RF azithromycin 500 mg tablet See Rx Instructions PO .COMPLEX Qty: 6 0RF Rx Instructions: For 250 mg dose pack: take 500 mg today (day 1), then 250 mg for 4 days (days 2-5) PO meclizine 25 mg tablet 25 mg PO TID PRN (Reason: dizziness) Qty: 30 0RF ketoconazole 2 % cream 1 applic topical BID Qty: 30 1RF oxycodone 10 mg tablet 10 mg PO QID PRN (Reason: pain) Qty: 120 0RF methocarbamol 500 mg tablet 500 mg PO TID PRN (Reason: muscle spasm) Qty: 60 1RF hydromorphone [Dilaudid] 2 mg tablet 2 mg PO Q6H PRN (Reason: pain) Qty: 60 0RF potassium chloride 10 mEq capsule, extended release 10 meq PO DAILY Qty: 30 1RF ketorolac 10 mg tablet 10 mg PO Q6H PRN (Reason: pain) Qty: 14 0RF diazepam [Valium] 2 mg tablet 2 mg PO BID-TID PRN (Reason: muscle spasm) Qty: 10 0RF methylprednisolone [Medrol (Dennis)] 4 mg tablets,dose pack See Rx Instructions .ROUTE .COMPLEX Qty: 21 0RF Rx Instructions: orally per package directions potassium chloride 20 mEq tablet extended release 20 meq PO BID Qty: 10 0RF Disabled Parking Permit 1 1 % SEEINSTR Rx Instructions: Valid for 5 years sulfasalazine 500 mg tablet 1,000 mg PO BID amlodipine 5 mg tablet 5 mg PO BEDTIME Patient Comments: pt received dose in hospital 11/10/19 early AM admit to [facility] valacyclovir 1 gram tablet 1,000 mg PO Q8H PRN (Reason: Breakout) hydrochlorothiazide 25 mg tablet 12.5 mg PO QAM losartan 100 mg tablet 100 mg PO DAILY polyethylene glycol 3350 17 gram Powder In Packet 17 g PO DAILY Qty: 14 0RF ibuprofen 400 mg Tablet 400 mg PO Q4HR PRN (Reason: Pain, Mild (1-3)) Qty: 60 0RF aspirin 81 mg capsule 81 mg PO BID Qty: 60 0RF Referrals: Edilberto Snell DO [Primary Care Provider] - Stand Alone Forms: Patient Portal/API
[2023-03-13 20:41] LABS: Alanine Aminotransferase 18 IU/L (<50); Albumin 4.2 g/dL (3.5-5.0); Albumin Globulin Ratio 1.2 (1.0-2.8); Alkaline Phosphatase 96 U/L (38-126); Aspartate Aminotransferase 19 IU/L (17-59); BUN Creatinine Ratio 19.3 (6-22); Bilirubin Total 0.4 mg/dL (0.2-1.3); Blood Urea Nitrogen 17 mg/dL (9-20); Calcium 8.5 mg/dL (8.4-10.2); Carbon Dioxide 30 mmol/L (22-32); Chloride 99 mmol/L (98-107); Creatine Kinase 32 U/L (55-170); Estimated Glomerular Filt Rate > 60 mL/min (>60); Globulin 3.6 g/dL (1.7-4.1); Glucose 102 mg/dL (80-110); HEMOLYSIS < 15 (0-50); Lipase 143 U/L (23-300); Potassium 3.8 mmol/L (3.4-5.1); Sodium 138 mmol/L (137-145); Total Protein 7.8 g/dL (6.3-8.2)
[2023-03-13] MEDS: HYDROMORPHONE 1 MG INJ IV ×2 (20:46→21:35)
[2023-03-13] MEDS: KETOROLAC 30 MG/ML VIAL IV (20:47)
[2023-03-13 20:52] LABS: Troponin I < 0.012 ng/mL (0.01-0.034)
== END 2023-03-13 22:17 | disposition home or self-care (01) ==
PROVIDERS: Emergency Provider Emergency Medicine; PCP Family Medicine
DX: M54.9 Dorsalgia, unspecified (principal); R07.9 Chest pain, unspecified
CPT/HCPCS: 36415; 71045; 80053; 82550; 83690; 83735; 84484; 85025; 85610; 85730; 93005; 93010; 96374; 96375; 96376; 99284; J1170; J1885

== ENCOUNTER 2023-03-19 14:32 | Emergency (ER) | payer MEDICARE, OTHER, SELFPAY ==
[2022-11-15 12:10] VITALS: BMI 30.8
[2023-03-19 14:39] VITALS: BP 109/52; PULSE 68; RESP 22; TEMP 36.9; O2SAT 96
[2023-03-19 14:44] VITALS: PULSE 63; RESP 22; O2SAT 99
--- NOTE | 2023-03-19 14:44 | DI.RAD.S_ITS ---
PROCEDURE: XR CHEST 1V INDICATIONS: Shortness of breath TECHNIQUE: One view of the chest was acquired. COMPARISON: [facility], , XR CHEST 1V, 03/13/2023, 20:20. [facility], CR, XR CHEST 1V, 03/06/2023, 10:52. FINDINGS: Surgical changes and devices: Bilateral shoulder arthroplasties. Lower spine hardware. Lungs and pleura: No consolidation identified. A few calcified granulomas are seen. No pleural effusions or pneumothorax. Mediastinum: Mediastinal contours appear unchanged. Heart size is normal. Bones and chest wall: No suspicious bony lesions. Overlying soft tissues appear unremarkable. IMPRESSION: No acute cardiopulmonary abnormality. Dictated by: Arturo Shah M.D. on 03/19/2023 at 15:46 Approved by: Arturo Shah M.D. on 03/19/2023 at 15:47
[2023-03-19 15:21] LABS: Add Manual Diff / Slide Review NO; Basophils Absolute Auto 100 /uL (0-100); Basophils Percent Auto 0.8 % (0-2); Eosinophils Absolute Auto 500 /uL (0-450); Eosinophils Percent Auto 5.6 % (2-4); Hematocrit 26.6 % (41-53); Hemoglobin 9.3 g/dL (13.5-17.5); Lymphocytes Absolute Auto 1000 /uL (1100-4500); Lymphocytes Percent Auto 11.6 % (25-40); Mean Corpuscular HGB Conc 35.1 % (30-36); Mean Corpuscular Hemoglobin 28.1 PG (26-34); Monocytes Absolute Auto 1400 /uL (0-900); Monocytes Percent Auto 15.9 % (3-14); Neutrophils Absolute Auto 6000 /uL (1500-7000); Neutrophils Percent Auto 66.1 % (50-75); Platelet Count 228 X10^3/uL (150-400); Red Blood Cell Count 3.32 X10^6/uL (4.5-5.9); Red Cell Distribution Width 16.2 % (11.6-14.8)
[2023-03-19 15:24] LABS: Alanine Aminotransferase 15 IU/L (<50); Albumin 3.7 g/dL (3.5-5.0); Alkaline Phosphatase 87 U/L (38-126); Aspartate Aminotransferase 20 IU/L (17-59); BUN Creatinine Ratio 17.1 (6-22); Bilirubin Total 0.6 mg/dL (0.2-1.3); Blood Urea Nitrogen 13 mg/dL (9-20); Calcium 8.4 mg/dL (8.4-10.2); Carbon Dioxide 29 mmol/L (22-32); Chloride 95 mmol/L (98-107); Estimated Glomerular Filt Rate > 60 mL/min (>60); Globulin 3.1 g/dL (1.7-4.1); Glucose 105 mg/dL (80-110); HEMOLYSIS < 15 (0-50); Potassium 3.7 mmol/L (3.4-5.1); Sodium 131 mmol/L (137-145); Total Protein 6.8 g/dL (6.3-8.2)
[2023-03-19 15:25] LABS: Albumin Globulin Ratio 1.2 (1.0-2.8); Lactate (Lactic Acid) 1.1 mmol/L (0.7-2.1)
[2023-03-19 15:40] LABS: NT-proBNP (BNP-Adult 18+) 945 pg/mL (<450); Troponin I < 0.012 ng/mL (0.01-0.034)
[2023-03-19 16:29] VITALS: PULSE 64; RESP 22; O2SAT 95
[2023-03-19] MEDS: ALBUTEROL/IPRATROPIUM 3 ML AMPUL INH ×2 (16:29→16:44)
[2023-03-19 16:32] VITALS: PULSE 67; O2SAT 94
[2023-03-19] MEDS: predniSONE 20 MG TABLET 60 MG PO (16:35)
[2023-03-19 17:00] VITALS: PULSE 69; O2SAT 96
--- NOTE | 2023-03-19 17:17 | ED.SOB ---
HPI - SOB/Dyspnea <Steve Gloria PA-C - Last Filed: 03/19/23 17:25> General Chief Complaint: Shortness of Breath/Dyspnea Stated Complaint: sent from [facility] breathing problems Time Seen by Provider: 03/19/23 15:27 Source: patient Mode of arrival: Ambulatory Limitations: no limitations History of Present Illness HPI Narrative: 77-year-old male with past medical history anemia, hypertension, hep C, PTSD, rheumatoid arthritis presents to the ED with 4 days of shortness of breath, wheezing. Patient was seen earlier today at the walk-in clinic, sent over to the ED for further evaluation. Patient complains of a subjective low-grade fever. Patient denies chills, chest pain, nausea, vomiting, abdominal pain, lightheadedness, dizziness, syncope. Patient does endorse that he is coughing up some sputum. Patient denies any other upper respiratory symptoms. Patient denies any history of COPD or emphysema. Patient does endorse a history of asthma Related Data Home Medications Medication Instructions Recorded Confirmed Disabled Parking Permit 1 % SEEINSTR 11/08/20 03/19/23 sulfasalazine 500 mg tablet 1,000 mg PO BID 11/10/20 03/19/23 amlodipine 5 mg tablet 5 mg PO BEDTIME 11/08/22 03/19/23 valacyclovir 1 gram tablet 1,000 mg PO Q8H PRN Breakout 11/08/22 03/19/23 hydrochlorothiazide 25 mg tablet 12.5 mg PO QAM 11/15/22 03/19/23 losartan 100 mg tablet 100 mg PO DAILY 11/15/22 03/19/23 Previous Rx's Medication Instructions Recorded fluoxetine 10 mg capsule See Rx Instructions .Route 08/14/22 .COMPLEX #90 caps fluoxetine 20 mg capsule 20 mg PO DAILY #90 caps 08/14/22 meclizine 25 mg tablet 25 mg PO TID PRN dizziness #30 tabs 10/16/22 albuterol sulfate 2.5 mg/3 mL 2.5 mg (3 mL) continuous 10/24/22 (0.083 %) solution for nebulization nebulization Q6HP PRN shortness of breath or wheezing #360 mL aspirin 81 mg capsule 81 mg PO BID #60 caps 11/16/22 ibuprofen 400 mg tablet 400 mg PO Q4HR PRN Pain, Mild 11/16/22 (1-3) #60 tabs polyethylene glycol 3350 17 gram 17 g PO DAILY #14 ea 11/16/22 oral powder packet azithromycin 500 mg tablet See Rx Instructions PO .COMPLEX #6 11/28/22 tabs albuterol sulfate 90 mcg/actuation 1 inh inhalation Q4-6H PRN 12/27/22 aerosol inhaler shortness of breath #18 grams omeprazole 40 mg capsule,delayed 40 mg PO DAILY #90 caps 01/01/23 release lidocaine 5 % topical patch 2 patch topical DAILY #30 ea 01/08/23 metoprolol succinate 100 mg 100 mg PO DAILY #90 tabs 01/24/23 tablet,extended release 24 hr ketoconazole 2 % topical cream 1 applic topical BID #30 grams 02/08/23 methocarbamol 500 mg tablet 500 mg PO TID PRN muscle spasm #60 02/08/23 tabs diazepam 2 mg tablet (Valium) 2 mg PO BID-TID PRN muscle spasm 02/26/23 #10 tabs ketorolac 10 mg tablet 10 mg PO Q6H PRN pain #14 tabs 02/26/23 methylprednisolone 4 mg tablets in See Rx Instructions PO .COMPLEX 02/26/23 a dose pack (Medrol (Dennis)) #21 ea potassium chloride 20 mEq 20 meq PO BID #10 tabs 02/26/23 tablet,extended release hydromorphone 2 mg tablet 2 mg PO Q6H PRN pain #60 tabs 03/01/23 (Dilaudid) potassium chloride 10 mEq 10 meq PO DAILY #30 caps 03/01/23 capsule,extended release hydromorphone 2 mg tablet 2 mg PO Q8H PRN pain #10 tabs 03/13/23 oxycodone 10 mg tablet 10 mg PO QID PRN pain #120 tabs 03/15/23 ipratropium 0.5 mg-albuterol 3 mg 3 ml inhalation Q6H PRN shortness 03/19/23 (2.5 mg base)/3 mL nebulization of breath or wheezing #90 mL soln Allergies Allergy/AdvReac Type Severity Reaction Status Date / Time cyclobenzaprine Allergy Severe Dizziness, Verified 03/19/23 14:08 [From Flexeril] I bounce off ag acetaminophen [ACETAMINOPHEN] AdvReac Unknown Can't take Verified 03/19/23 14:08 r/t Hep C; upset stomach Review of Systems <Steve Gloria PA-C - Last Filed: 03/19/23 17:25> Review of Systems ROS Unobtainable: All systems reviewed & are unremarkable except as noted in HPI and below Constitutional Constitutional: Denies chills, Denies fatigue, Denies fever(s), Denies frequent falls, Denies lethargy and Denies weakness Eyes Eyes: Denies change in vision, Denies eye discharge, Denies irritation and Denies loss of vision ENT Ears, Nose, Mouth, and Throat: Denies change in voice, Denies dizziness, Denies neck pain, Denies sore throat and Denies throat swelling Cardiovascular Cardiovascular: Denies chest pain, Denies irregular heart rhythm, Denies lightheadedness, Denies palpitations, Reports dyspnea, Denies dyspnea on exertion and Denies orthopnea Respiratory Respiratory: Reports cough, Reports excessive phlegm production, Reports dyspnea, Denies dyspnea on exertion and Reports wheezing Gastrointestinal Gastrointestinal: Denies abdominal pain, Denies change in bowel habits, Denies diarrhea, Denies nausea and Denies vomiting Genitourinary Genitourinary: Denies hematuria, Denies flank pain, Denies urinary incontinence and Denies urinary urgency Musculoskeletal Musculoskeletal: Denies back pain, Denies muscle weakness, Denies neck pain, Denies numbness and Denies tingling Integumentary/Breasts Skin/Breast: Denies pruritus, Denies erythema, Denies rash and Denies wounds Neurologic Neurologic: Denies behavioral changes, Denies confusion, Denies dizziness, Denies frequent falls, Denies loss of vision, Denies numbness, Denies tingling and Denies weakness Psychiatric Psychiatric: Denies anxiety, Denies behavioral changes, Denies confusion, Denies depression, Denies homicidal ideation and Denies suicidal ideation Endocrine Endocrine: Denies fatigue, Denies flushing and Denies palpitations Hematologic/Lymphatic Hematologic/Lymphatic: Denies easy bruising Allergic/Immunologic Allergic/Immunologic: Denies urticaria, Denies throat swelling and Reports wheezing Patient History <Steve Gloria PA-C - Last Filed: 03/19/23 17:25> Medical History Abdominal wall pain in both lower quadrants Acute exacerbation of chronic bronchitis Adhesive capsulitis Aftercare following left shoulder joint replacement surgery Anemia Anxiety Arthritis (Unknown) Chronic ankle pain, bilateral Chronic pain syndrome (Unknown) Colles' fracture Constipation Depression (Unknown) Fibromyalgia Foraminal stenosis of lumbar region Hepatitis C (Unknown) Hypertension (Unknown) Impotence (Unknown) Kidney stones (Unknown) Left lateral epicondylitis Left shoulder strain Migraines (Unknown) Oral lesion Peripheral neuropathy Pneumonia (~2018) Preoperative clearance Prostate cancer (Unknown) PTSD (post-traumatic stress disorder) (Unknown) Restless leg syndrome (Unknown) Rheumatoid arthritis Right wrist pain Right wrist sprain Sinus drainage Skin cancer (Unknown) Tinea Surgical History History of ankle surgery History of back surgery History of carpal tunnel repair History of lumbar fusion History of lumbar fusion (05/10/22) History of prosthetic unicompartmental arthroplasty of right knee History of tonsillectomy History of total replacement of right shoulder joint Hx of foot surgery Hx of laminectomy (10/2012) Status post cholecystectomy Status post knee surgery Family History Father Heart disease Mother No problems noted. Social History marital status: household members: spouse lives independently: Yes occupational status: previously employed Smoking Status: Former smoker Tobacco: How many years used: 20 quit status: has quit before alcohol intake: former substance use type: former substance user and marijuana Smoking Status: Former smoker tobacco type: cigarettes Substance Use Type: does not use, former substance user and IV drugs Exam <Steve Gloria PA-C - Last Filed: 03/19/23 17:25> Narrative Exam Narrative: Const General:?cooperative, healthy appearing and comfortable [facility] Head:?normal to inspection Ears:?hearing grossly normal bilaterally Nose:?external nose normal Face and sinus:?normal facial exam and sinuses nontender Mouth:?oral mucosae normal Throat:?posterior oropharynx normal Eyes General:?appearance normal, both eyes and all related structures Neck Neck:?normal visual inspection and no lymphadenopathy noted Resp Effort & Inspection:?normal respiratory effort Auscultation:? Diffuse bilateral generalized wheezing Cardio Rate:?regular rate Rhythm:?regular rhythm Neuro General:?patient alert, patient awake and patient oriented x3 Initial Vital Signs Initial Vital Signs: Vital Signs Temperature 98.4 F 03/19/23 14:39 Pulse Rate 68 03/19/23 14:39 Respiratory Rate 22 03/19/23 14:39 Blood Pressure 109/52 L 03/19/23 14:39 Pulse Oximetry 96 03/19/23 14:39 Oxygen Delivery Method Room Air 03/19/23 14:39 <hSeila Rider DO - Last Filed: 03/25/23 18:35> Initial Vital Signs Initial Vital Signs: Vital Signs Temperature 98.4 F 03/19/23 14:39 Pulse Rate 68 03/19/23 14:39 Respiratory Rate 22 03/19/23 14:39 Blood Pressure 109/52 L 03/19/23 14:39 Pulse Oximetry 96 03/19/23 14:39 Oxygen Delivery Method Room Air 03/19/23 14:39 Course <Steve Gloria PA-C - Last Filed: 03/19/23 17:25> Orders Ordered: Discontinued Medications Albuterol/Ipratropium (Albuterol/Ipratropium 3 Ml Ampul) 3 ml INH NOW ONE Stop: 03/19/23 16:27 Last Admin: 03/19/23 16:29 Dose: 3 ml Documented By: CHELY Albuterol/Ipratropium (Albuterol/Ipratropium 3 Ml Ampul) 3 ml INH NOW ONE Stop: 03/19/23 16:42 Last Admin: 03/19/23 16:44 Dose: 3 ml Documented By: CHELY Prednisone (Prednisone 20 Mg Tablet) 60 mg PO NOW ONE Stop: 03/19/23 16:29 Last Admin: 03/19/23 16:35 Dose: 60 mg Documented By: SAVAGE Vital Signs Vital signs: Vital Signs - 8 hr 03/19/23 14:39 03/19/23 16:29 03/19/23 14:44 Temperature 98.4 F Pulse Rate 68 64 63 Respiratory Rate 22 22 22 Blood Pressure 109/52 L Pulse Oximetry 96 95 99 Oxygen Delivery Method Room Air Room Air Room Air Oxygen Flow Rate 0 0 Fraction of Inspired Oxygen 21 21 <Sheila Rider DO - Last Filed: 03/25/23 18:35> Orders Ordered: Discontinued Medications Albuterol/Ipratropium (Albuterol/Ipratropium 3 Ml Ampul) 3 ml INH NOW ONE Stop: 03/19/23 16:27 Last Admin: 03/19/23 16:29 Dose: 3 ml Documented By: CHELY Albuterol/Ipratropium (Albuterol/Ipratropium 3 Ml Ampul) 3 ml INH NOW ONE Stop: 03/19/23 16:42 Last Admin: 03/19/23 16:44 Dose: 3 ml Documented By: CHELY Prednisone (Prednisone 20 Mg Tablet) 60 mg PO NOW ONE Stop: 03/19/23 16:29 Last Admin: 03/19/23 16:35 Dose: 60 mg Documented By: SAVAGE Vital Signs Vital signs: Vital Signs - 8 hr 03/19/23 14:39 03/19/23 16:29 03/19/23 14:44 Temperature 98.4 F Pulse Rate 68 64 63 Respiratory Rate 22 22 22 Blood Pressure 109/52 L Pulse Oximetry 96 95 99 Oxygen Delivery Method Room Air Room Air Room Air Oxygen Flow Rate 0 0 Fraction of Inspired Oxygen 21 21 MDM - SOB/Dyspnea <Steve Gloria PA-C - Last Filed: 03/19/23 17:25> Lab Data 03/19/23 14:55 03/19/23 14:55 Labs: Lab Results 03/19/23 03/19/23 03/19/23 Range/Units 14:55 14:55 14:55 WBC 9.0 (4.5-11.0) X10^3/uL RBC 3.32 L (4.5-5.9) X10^6/uL Hgb 9.3 L (13.5-17.5) g/dL Hct 26.6 L (41-53) % MCV 80.0 (80-100) fL MCH 28.1 (26-34) PG MCHC 35.1 (30-36) % RDW 16.2 H (11.6-14.8) % Plt Count 228 (150-400) X10^3/uL Neut % (Auto) 66.1 (50-75) % Lymph % (Auto) 11.6 L (25-40) % [place] % (Auto) 15.9 H (3-14) % Eos % (Auto) 5.6 H (2-4) % Baso % (Auto) 0.8 (0-2) % Neut # (Auto) 6000 (5407-5467) /uL Lymph # (Auto) 1000 L (9524-1261) /uL [place] # (Auto) 1400 H (0-900) /uL Eos # (Auto) 500 H (0-450) /uL Baso # (Auto) 100 (0-100) /uL PT Cancelled INR Cancelled Sodium 131 L (137-145) mmol/L Potassium 3.7 (3.4-5.1) mmol/L Chloride 95 L (98-107) mmol/L Carbon Dioxide 29 (22-32) mmol/L BUN 13 (9-20) mg/dL Creatinine 0.76 (0.66-1.25) mg/dL Estimated GFR > 60 (>60) mL/min BUN/Creatinine Ratio 17.1 (6-22) Glucose 105 (80-110) mg/dL Lactate (0.7-2.1) mmol/L Calcium 8.4 (8.4-10.2) mg/dL Total Bilirubin 0.6 (0.2-1.3) mg/dL AST 20 (17-59) IU/L ALT 15 (<50) IU/L Alkaline Phosphatase 87 (38-126) U/L Troponin I < 0.012 (0.01-0.034) ng/mL NT-Pro-B Natriuret Pep 945 H (<450) pg/mL Total Protein 6.8 (6.3-8.2) g/dL Albumin 3.7 (3.5-5.0) g/dL Globulin 3.1 (1.7-4.1) g/dL Albumin/Globulin Ratio 1.2 (1.0-2.8) 03/19/23 Range/Units 14:55 WBC (4.5-11.0) X10^3/uL RBC (4.5-5.9) X10^6/uL Hgb (13.5-17.5) g/dL Hct (41-53) % MCV (80-100) fL MCH (26-34) PG MCHC (30-36) % RDW (11.6-14.8) % Plt Count (150-400) X10^3/uL Neut % (Auto) (50-75) % Lymph % (Auto) (25-40) % [place] % (Auto) (3-14) % Eos % (Auto) (2-4) % Baso % (Auto) (0-2) % Neut # (Auto) (0004-7228) /uL Lymph # (Auto) (5254-7216) /uL [place] # (Auto) (0-900) /uL Eos # (Auto) (0-450) /uL Baso # (Auto) (0-100) /uL PT INR Sodium (137-145) mmol/L Potassium (3.4-5.1) mmol/L Chloride (98-107) mmol/L Carbon Dioxide (22-32) mmol/L BUN (9-20) mg/dL Creatinine (0.66-1.25) mg/dL Estimated GFR (>60) mL/min BUN/Creatinine Ratio (6-22) Glucose (80-110) mg/dL Lactate 1.1 (0.7-2.1) mmol/L Calcium (8.4-10.2) mg/dL Total Bilirubin (0.2-1.3) mg/dL AST (17-59) IU/L ALT (<50) IU/L Alkaline Phosphatase (38-126) U/L Troponin I (0.01-0.034) ng/mL NT-Pro-B Natriuret Pep (<450) pg/mL Total Protein (6.3-8.2) g/dL Albumin (3.5-5.0) g/dL Globulin (1.7-4.1) g/dL Albumin/Globulin Ratio (1.0-2.8) MDM Narrative Medical decision making narrative: 77-year-old male with past medical history anemia, hypertension, hep C, PTSD, rheumatoid arthritis presents to the ED with 4 days of shortness of breath, wheezing. Concern for ACS versus asthma exacerbation versus pneumonia versus other. Obtained EKG, chest x-ray, labs, troponin. Workup was largely unremarkable. Patient was given 2 doses of albuterol with ipratropium, following which patient's wheezing resolved. Patient appeared more comfortable and breathing with normal effort. Patient was also given a dose of prednisone. Discussed asthma maintenance with patient. Prescribed albuterol with ipratropium and prednisone for continued home use. Recommend follow-up with PCP as soon as possible for further evaluation in maintenance medications. ED return precautions were discussed with patient. Patient verbalized understanding. Medical records reviewed: Yes <Sheila Tereso, DO - Last Filed: 03/25/23 18:35> Lab Data Labs: Lab Results 03/19/23 03/19/23 03/19/23 Range/Units 14:55 14:55 14:55 WBC 9.0 (4.5-11.0) X10^3/uL RBC 3.32 L (4.5-5.9) X10^6/uL Hgb 9.3 L (13.5-17.5) g/dL Hct 26.6 L (41-53) % MCV 80.0 (80-100) fL MCH 28.1 (26-34) PG MCHC 35.1 (30-36) % RDW 16.2 H (11.6-14.8) % Plt Count 228 (150-400) X10^3/uL Neut % (Auto) 66.1 (50-75) % Lymph % (Auto) 11.6 L (25-40) % [place] % (Auto) 15.9 H (3-14) % Eos % (Auto) 5.6 H (2-4) % Baso % (Auto) 0.8 (0-2) % Neut # (Auto) 6000 (3742-0240) /uL Lymph # (Auto) 1000 L (8235-8577) /uL [place] # (Auto) 1400 H (0-900) /uL Eos # (Auto) 500 H (0-450) /uL Baso # (Auto) 100 (0-100) /uL PT Cancelled INR Cancelled Sodium 131 L (137-145) mmol/L Potassium 3.7 (3.4-5.1) mmol/L Chloride 95 L (98-107) mmol/L Carbon Dioxide 29 (22-32) mmol/L BUN 13 (9-20) mg/dL Creatinine 0.76 (0.66-1.25) mg/dL Estimated GFR > 60 (>60) mL/min BUN/Creatinine Ratio 17.1 (6-22) Glucose 105 (80-110) mg/dL Lactate (0.7-2.1) mmol/L Calcium 8.4 (8.4-10.2) mg/dL Total Bilirubin 0.6 (0.2-1.3) mg/dL AST 20 (17-59) IU/L ALT 15 (<50) IU/L Alkaline Phosphatase 87 (38-126) U/L Troponin I < 0.012 (0.01-0.034) ng/mL NT-Pro-B Natriuret Pep 945 H (<450) pg/mL Total Protein 6.8 (6.3-8.2) g/dL Albumin 3.7 (3.5-5.0) g/dL Globulin 3.1 (1.7-4.1) g/dL Albumin/Globulin Ratio 1.2 (1.0-2.8) 03/19/23 Range/Units 14:55 WBC (4.5-11.0) X10^3/uL RBC (4.5-5.9) X10^6/uL Hgb (13.5-17.5) g/dL Hct (41-53) % MCV (80-100) fL MCH (26-34) PG MCHC (30-36) % RDW (11.6-14.8) % Plt Count (150-400) X10^3/uL Neut % (Auto) (50-75) % Lymph % (Auto) (25-40) % [place] % (Auto) (3-14) % Eos % (Auto) (2-4) % Baso % (Auto) (0-2) % Neut # (Auto) (9703-6015) /uL Lymph # (Auto) (7490-4348) /uL [place] # (Auto) (0-900) /uL Eos # (Auto) (0-450) /uL Baso # (Auto) (0-100) /uL PT INR Sodium (137-145) mmol/L Potassium (3.4-5.1) mmol/L Chloride (98-107) mmol/L Carbon Dioxide (22-32) mmol/L BUN (9-20) mg/dL Creatinine (0.66-1.25) mg/dL Estimated GFR (>60) mL/min BUN/Creatinine Ratio (6-22) Glucose (80-110) mg/dL Lactate 1.1 (0.7-2.1) mmol/L Calcium (8.4-10.2) mg/dL Total Bilirubin (0.2-1.3) mg/dL AST (17-59) IU/L ALT (<50) IU/L Alkaline Phosphatase (38-126) U/L Troponin I (0.01-0.034) ng/mL NT-Pro-B Natriuret Pep (<450) pg/mL Total Protein (6.3-8.2) g/dL Albumin (3.5-5.0) g/dL Globulin (1.7-4.1) g/dL Albumin/Globulin Ratio (1.0-2.8) ECG Data Interpretation: [place]: Normal sinus rhythm rate 71 NV interval 180 QRS [address] changes similar to previous EKGs Discharge Plan Departure Patient Disposition: Home Clinical Impression: Asthma exacerbation Instructions: DI for Asthma -- Adult Activity Restrictions/Additional Instructions: You were evaluated in the ED today for wheezing and shortness of breath. You were given 2 treatments of albuterol with ipratropium and prednisone after which your symptoms resolved. Your labs and workup were normal today. Your symptoms are due to a asthma exacerbation. You are being prescribed albuterol with ipratropium and prednisone. Please take those as prescribed. Return to the ED if you have chest pain, shortness of breath, worsening wheezing despite the medications. Please follow-up with your PCP as soon as possible for further evaluation and possible maintenance medications. Prescriptions: New ipratropium-albuterol 0.5 mg-3 mg(2.5 mg base)/3 mL solution for nebulization 3 ml inhalation Q6H PRN (Reason: shortness of breath or wheezing) Qty: 90 0RF No Action fluoxetine 10 mg capsule See Rx Instructions .ROUTE .COMPLEX Qty: 90 3RF Dose Instruction: take 1 capsule by mouth once daily WITH 20MG CAP DAILY TOTAL 30 MG DAILY Rx Instructions: take 1 capsule by mouth once daily WITH 20MG CAP DAILY TOTAL 30 MG DAILY fluoxetine 20 mg capsule 20 mg PO DAILY Qty: 90 3RF Rx Instructions: Take with 10 mg to complete 30 mg dose albuterol sulfate 2.5 mg /3 mL (0.083 %) solution for nebulization 2.5 mg Continuous Nebulization Q6HP PRN (Reason: shortness of breath or wheezing) Qty: 360 2RF albuterol sulfate 90 mcg/actuation HFA aerosol inhaler 1 inh INHALATION Q4-6H PRN (Reason: shortness of breath) Qty: 18 4RF omeprazole 40 mg capsule,delayed release(DR/EC) 40 mg PO DAILY Qty: 90 3RF Rx Instructions: take 1 capsule by mouth once daily lidocaine 5 % adhesive patch,medicated 2 patch topical DAILY Qty: 30 1RF Rx Instructions: leave on most painful area for up to 12 hrs metoprolol succinate 100 mg tablet extended release 24 hr 100 mg PO DAILY Qty: 90 1RF azithromycin 500 mg tablet See Rx Instructions PO .COMPLEX Qty: 6 0RF Rx Instructions: For 250 mg dose pack: take 500 mg today (day 1), then 250 mg for 4 days (days 2-5) PO oxycodone 10 mg tablet 10 mg PO QID PRN (Reason: pain) Qty: 120 0RF meclizine 25 mg tablet 25 mg PO TID PRN (Reason: dizziness) Qty: 30 0RF ketoconazole 2 % cream 1 applic topical BID Qty: 30 1RF methocarbamol 500 mg tablet 500 mg PO TID PRN (Reason: muscle spasm) Qty: 60 1RF hydromorphone [Dilaudid] 2 mg tablet 2 mg PO Q6H PRN (Reason: pain) Qty: 60 0RF potassium chloride 10 mEq capsule, extended release 10 meq PO DAILY Qty: 30 1RF ketorolac 10 mg tablet 10 mg PO Q6H PRN (Reason: pain) Qty: 14 0RF diazepam [Valium] 2 mg tablet 2 mg PO BID-TID PRN (Reason: muscle spasm) Qty: 10 0RF methylprednisolone [Medrol (Dennis)] 4 mg tablets,dose pack See Rx Instructions .ROUTE .COMPLEX Qty: 21 0RF Rx Instructions: orally per package directions potassium chloride 20 mEq tablet extended release 20 meq PO BID Qty: 10 0RF Disabled Parking Permit 1 1 % SEEINSTR Rx Instructions: Valid for 5 years sulfasalazine 500 mg tablet 1,000 mg PO BID amlodipine 5 mg tablet 5 mg PO BEDTIME Patient Comments: pt received dose in hospital 11/10/19 early AM admit to AC valacyclovir 1 gram tablet 1,000 mg PO Q8H PRN (Reason: Breakout) hydrochlorothiazide 25 mg tablet 12.5 mg PO QAM losartan 100 mg tablet 100 mg PO DAILY polyethylene glycol 3350 17 gram Powder In Packet 17 g PO DAILY Qty: 14 0RF ibuprofen 400 mg Tablet 400 mg PO Q4HR PRN (Reason: Pain, Mild (1-3)) Qty: 60 0RF aspirin 81 mg capsule 81 mg PO BID Qty: 60 0RF hydromorphone 2 mg tablet 2 mg PO Q8H PRN (Reason: pain) Qty: 10 0RF Referrals: Edilberto Snell DO [Primary Care Provider] - Stand Alone Forms: Patient Portal/API <Sheila Rider DO - Last Filed: 03/25/23 18:35> Cosign ED Attending Cosignature Attestation: I was immediately available in the department for consultation. Documentation has been reviewed.
[2023-03-19 17:25] VITALS: BP 133/64; PULSE 75; RESP 18; O2SAT 99
== END 2023-03-19 17:28 | disposition home or self-care (01) ==
PROVIDERS: Emergency Medicine; Emergency Provider Student in an Organized Health Care Education/Training Program; PCP Family Medicine
DX: J45.901 Unspecified asthma with (acute) exacerbation (principal); Z87.891 Personal history of nicotine dependence; R03.1 Nonspecific low blood-pressure reading
CPT/HCPCS: 36415; 71045; 80053; 83605; 83880; 84484; 85025; 93005; 93010; 94640; 99284

== ENCOUNTER 2023-04-04 15:58 | Emergency (ER) | payer MEDICARE, OTHER, SELFPAY ==
[2022-11-15 12:10] VITALS: BMI 30.8
[2023-04-04] VITALS (12 sets, daily range): BP systolic 158–191; BP diastolic 72–94; PULSE 62–94; RESP 18–20; TEMP 37; O2SAT 95–99; BMI 29.6
--- NOTE | 2023-04-04 16:17 | DI.RAD.S_ITS ---
PROCEDURE: XR LUMBAR SPINE 2-3V INDICATIONS: pain, midline, after fall TECHNIQUE: 3 views of the lumbar spine were acquired. COMPARISON: [facility], CR, XR LUMBAR SPINE 2-3V, 11/30/2022, 15:38. FINDINGS: Bones: 5 [id number] vertebrae are present. There is normal bony alignment. No vertebral body compression fractures. No suspicious bony lesions. Postsurgical changes reflecting fusion from T12 through L4 as well as sacral fusion are present. Hardware is intact without hardware fracture or periprosthetic lucency to suggest loosening. Intervertebral spacers are also present. Soft tissues: Overlying bowel gas pattern is normal. No suspicious soft tissue calcifications. IMPRESSION: Postsurgical changes are stable. No visualized acute fracture or dislocation. However, if clinical concern and/or pain persist, short interval imaging followup in 7-10 days is recommended, as occult injury cannot be definitively excluded. Dictated by: Kaci Calabrese M.D. on 04/04/2023 at 16:49 Approved by: Kaci Calabrese M.D. on 04/04/2023 at 16:50
--- NOTE | 2023-04-04 16:18 | DI.RAD.S_ITS ---
PROCEDURE: XR CHEST 1V INDICATIONS: chest pain, SOB TECHNIQUE: One view of the chest was acquired. COMPARISON: [facility], CR, XR CHEST 1V, 03/19/2023, 14:56. FINDINGS: Surgical changes and devices: Bilateral shoulder arthroplasties. Lungs and pleura: Lungs are clear. No pleural effusions or pneumothorax. Mediastinum: Mediastinal contours appear normal. Heart size is normal. Bones and chest wall: No suspicious bony lesions. Overlying soft tissues appear unremarkable. IMPRESSION: No acute pulmonary process. Dictated by: Kaci Calabrese M.D. on 04/04/2023 at 16:50 Approved by: Kaci Calabrese M.D. on 04/04/2023 at 16:50
--- NOTE | 2023-04-04 16:18 | DI.MRI.S_ITS ---
PROCEDURE: MR LUMBAR SPINE WO/W CON INDICATIONS: pain, legs gave out, bladder trouble TECHNIQUE: Noncontrast sagittal T1 spin echo and T2 fast spin echo, sagittal STIR, axial T1 and T2 fast spin echo through the lumbar spine. In cases with scoliosis, additional coronal T2 fast spin echo may be performed. After the administration of contrast, sagittal and axial T1 spin echo with fat saturation through the lumbar spine. COMPARISON: [facility], , MR LUMBAR SPINE WO CON, 02/25/2023, 19:33. [facility], , MR LUMBAR SPINE WO/W CON, 05/26/2022, 16:21. [facility], CR, XR LUMBAR SPINE 2-3V, 04/04/2023, 16:23. [facility], MR, MR LUMBAR SPINE WO CON, 02/17/2022, 11:07. [facility], , MR LUMBAR SPINE WO/W CON, 09/29/2020, 13:09. [facility], , MR LUMBAR SPINE WO CON, 06/04/2019, 12:07. FINDINGS: Image quality: There is artifact associated with the metallic hardware, particularly on the postcontrast images. Alignment and curvature: There is minimal retrolisthesis seen at T12-L1 and L1-L2.. Marrow: Marrow is of normal overall signal. No acute vertebral body compression fractures. No suspicious marrow enhancement. Spinal cord: Conus medullaris terminates at the L1 level. Visualized spinal cord demonstrates normal signal, without suspicious enhancement. Paraspinous soft tissues: No paravertebral masses or abnormal enhancement. Extensive postoperative changes are seen, with bilateral pedicle screws T12 through L4. Vertical fixation rods are seen. Disc spacers are seen at L1-L2, L2-L3, and L3-L4. T12-L1: The disc height and disk signal are relatively well-preserved. Mild generalized disc bulge is seen. Moderate bilateral neural foraminal narrowing is seen. Moderate central canal narrowing is seen. When comparison is made with the prior images, these findings are similar. L1-L2: At least moderate loss of disc height and disc signal can be seen. At least moderate disc bulge is seen, with a central disc protrusion. There is at least moderate bilateral neural foraminal narrowing seen. Mild central canal narrowing is seen. When comparison is made with the prior images, these findings are similar. L2-L3: Mild generalized disc bulge is seen. Moderate facet joint hypertrophy is seen. Moderate bilateral neural foraminal narrowing is seen. Moderate central canal narrowing is seen. No significant change from the prior. L3-L4: Moderate generalized disc bulge is seen. Moderate bilateral neural foraminal narrowing can be seen, right worse than left. No significant central canal narrowing is seen. Stable from the prior study. L4-L5: The disc height and disk signal are relatively well-preserved. Mild to moderate disc bulge is seen. Prominent facet hypertrophy is seen. Moderate to severe bilateral neural foraminal narrowing can be seen. There is a degree of compression seen upon the exiting nerve roots. Mild central canal narrowing is seen. When comparison is made with the prior images, these findings are similar. L5-S1: The disc height is well-preserved. Loss of disc signal is seen at this level. Mild generalized disc bulge is seen. There is moderate right-sided and moderate to prominent left-sided facet hypertrophy. There is at least moderate bilateral neural foraminal narrowing seen, left worse than right. There is a degree of compression seen upon the exiting nerve roots. Minimal central canal narrowing is seen. When comparison is made with the prior images, these findings are similar. IMPRESSION: No significant acute abnormality is seen to explain the patient's presenting symptoms. 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 No abnormal enhancement is seen. Dictated by: Gregg Vásquez M.D. on 04/04/2023 at 18:14 Approved by: Gregg Vásquez M.D. on 04/04/2023 at 18:19
--- NOTE | 2023-04-04 16:20 | ED.BACK ---
HPI - Back Pain/Injury <Koby Haman, DO - Last Filed: 04/09/23 04:21> General Chief Complaint: Back Pain/Injury Stated Complaint: back pain, legs gave out on him Time Seen by Provider: 04/04/23 15:59 History of Present Illness HPI Narrative: 77-year-old male former smoker with history of hypertension, kidney stones, pneumonia, PTSD, prostate cancer, prior back problems presents with a chief complaint of back pain that has been worsening over the past few days. He states that it has been sufficiently bad that he has been kept in bed due to the pain. Any motion makes the pain worse and rest seems to improve it. He denies any radiation of the pain. He denies numbness, tingling or weakness of lower extremities. He denies any loss of control of bowel or bladder. He was coming to the hospital today to be seen and when entering the hospital he states both of his legs gave out on him and he fell as a consequence. He denies ongoing lower extremity pain, weakness Related Data Home Medications Medication Instructions Recorded Confirmed Disabled Parking Permit 1 % SEEINSTR 11/08/20 03/28/23 sulfasalazine 500 mg tablet 1,000 mg PO BID 11/10/20 03/28/23 amlodipine 5 mg tablet 5 mg PO BEDTIME 11/08/22 03/28/23 valacyclovir 1 gram tablet 1,000 mg PO Q8H PRN Breakout 11/08/22 03/28/23 hydrochlorothiazide 25 mg tablet 12.5 mg PO QAM 11/15/22 03/28/23 losartan 100 mg tablet 100 mg PO DAILY 11/15/22 03/28/23 Previous Rx's Medication Instructions Recorded fluoxetine 10 mg capsule See Rx Instructions .Route 08/14/22 .COMPLEX #90 caps fluoxetine 20 mg capsule 20 mg PO DAILY #90 caps 08/14/22 meclizine 25 mg tablet 25 mg PO TID PRN dizziness #30 tabs 10/16/22 albuterol sulfate 2.5 mg/3 mL 2.5 mg (3 mL) continuous 10/24/22 (0.083 %) solution for nebulization nebulization Q6HP PRN shortness of breath or wheezing #360 mL aspirin 81 mg capsule 81 mg PO BID #60 caps 11/16/22 ibuprofen 400 mg tablet 400 mg PO Q4HR PRN Pain, Mild 11/16/22 (1-3) #60 tabs polyethylene glycol 3350 17 gram 17 g PO DAILY #14 ea 11/16/22 oral powder packet azithromycin 500 mg tablet See Rx Instructions PO .COMPLEX #6 11/28/22 tabs albuterol sulfate 90 mcg/actuation 1 inh inhalation Q4-6H PRN 12/27/22 aerosol inhaler shortness of breath #18 grams omeprazole 40 mg capsule,delayed 40 mg PO DAILY #90 caps 01/01/23 release lidocaine 5 % topical patch 2 patch topical DAILY #30 ea 01/08/23 metoprolol succinate 100 mg 100 mg PO DAILY #90 tabs 01/24/23 tablet,extended release 24 hr ketoconazole 2 % topical cream 1 applic topical BID #30 grams 02/08/23 methocarbamol 500 mg tablet 500 mg PO TID PRN muscle spasm #60 02/08/23 tabs diazepam 2 mg tablet (Valium) 2 mg PO BID-TID PRN muscle spasm 02/26/23 #10 tabs ketorolac 10 mg tablet 10 mg PO Q6H PRN pain #14 tabs 02/26/23 methylprednisolone 4 mg tablets in See Rx Instructions PO .COMPLEX 02/26/23 a dose pack (Medrol (Dennis)) #21 ea potassium chloride 20 mEq 20 meq PO BID #10 tabs 02/26/23 tablet,extended release hydromorphone 2 mg tablet 2 mg PO Q6H PRN pain #60 tabs 03/01/23 (Dilaudid) potassium chloride 10 mEq 10 meq PO DAILY #30 caps 03/01/23 capsule,extended release oxycodone 10 mg tablet 10 mg PO QID PRN pain #120 tabs 03/15/23 ipratropium 0.5 mg-albuterol 3 mg 3 ml inhalation Q6H PRN shortness 03/19/23 (2.5 mg base)/3 mL nebulization of breath or wheezing #90 mL soln hydromorphone 2 mg tablet 2 mg PO BEDTIME PRN pain #30 tabs 03/28/23 nitroglycerin 0.4 mg sublingual 0.4 mg sublingual Q5M PRN chest 03/28/23 tablet pain #20 tabs diazepam 5 mg tablet (Valium) 5 mg PO Q12HR PRN muscle spasm #10 04/04/23 tabs oxycodone 5 mg tablet 5 mg PO Q6H PRN pain #10 tabs 04/04/23 oxycodone-acetaminophen 5 mg-325 1 tab PO Q8H PRN pain #6 tabs 04/07/23 mg tablet (Percocet) prednisone 20 mg tablet 20 mg PO DAILY 6 days #6 tabs 04/07/23 Allergies Allergy/AdvReac Type Severity Reaction Status Date / Time cyclobenzaprine Allergy Severe Dizziness, Verified 03/28/23 09:28 [From Flexeril] I bounce off ag acetaminophen [ACETAMINOPHEN] AdvReac Unknown Can't take Verified 03/28/23 09:28 r/t Hep C; upset stomach Patient History <Koby Cristina DO - Last Filed: 04/09/23 04:21> Medical History Abdominal wall pain in both lower quadrants Acute exacerbation of chronic bronchitis Adhesive capsulitis Aftercare following left shoulder joint replacement surgery Anemia Anxiety Arthritis (Unknown) Chronic ankle pain, bilateral Chronic pain syndrome (Unknown) Colles' fracture Constipation Depression (Unknown) Dyspepsia Fibromyalgia Foraminal stenosis of lumbar region Hepatitis C (Unknown) Hypertension (Unknown) Impotence (Unknown) Kidney stones (Unknown) Left lateral epicondylitis Left shoulder strain Migraines (Unknown) Oral lesion Peripheral neuropathy Pneumonia (~2018) Preoperative clearance Prostate cancer (Unknown) PTSD (post-traumatic stress disorder) (Unknown) Restless leg syndrome (Unknown) Rheumatoid arthritis Right wrist pain Right wrist sprain Sinus drainage Skin cancer (Unknown) Tinea Surgical History History of ankle surgery History of back surgery History of carpal tunnel repair History of lumbar fusion History of lumbar fusion (05/10/22) History of prosthetic unicompartmental arthroplasty of right knee History of tonsillectomy History of total replacement of right shoulder joint Hx of foot surgery Hx of laminectomy (10/2012) Status post cholecystectomy Status post knee surgery Family History Father Heart disease Mother No problems noted. Social History marital status: household members: spouse lives independently: Yes occupational status: previously employed Smoking Status: Former smoker Tobacco: How many years used: 20 quit status: has quit before alcohol intake: former substance use type: former substance user and marijuana Smoking Status: Former smoker tobacco type: cigarettes alcohol intake frequency: 0-2 drinks per day Substance Use Type: does not use, former substance user and IV drugs Exam <Koby Cristina DO - Last Filed: 04/09/23 04:21> Narrative Exam Narrative: GENERAL: 77[] year old patient appears stated age. Well-developed patient, in mild distress. HEAD: Atraumatic. Normocephalic. EYES: Pupils equal round and reactive. Extraocular motions intact. No scleral icterus. No injection or drainage. ENT: Nose without bleeding, purulent drainage. Throat without erythema, tonsillar hypertrophy or exudate. Airway patent. NECK: Trachea midline. Non tender CARDIOVASCULAR: Regular rate and rhythm without murmurs, gallops, or rubs. RESPIRATORY: Clear to auscultation. Breath sounds equal bilaterally. No wheezes, rales, or rhonchi. GASTROINTESTINAL: Abdomen soft, non-tender, nondistended. EXTREMITIES: No edema or joint tenderness. BACK: molder machine tender but free of any obvious external abnormalities. Patient exam notes decreased range of motion and muscle spasm, but no CVA tenderness, or vertebral point tenderness. There are no symptoms of cauda equina such as saddle anesthesia, and decreased reflexes, decreased sensation or strength. NEURO: AOx3. SKIN: No rash or erythema of visible areas Initial Vital Signs Initial Vital Signs: Vital Signs Temperature 98.6 F 04/04/23 16:02 Pulse Rate 94 H 04/04/23 16:02 Respiratory Rate 18 04/04/23 16:02 Blood Pressure 168/88 H 04/04/23 16:02 Pulse Oximetry 99 04/04/23 16:02 Oxygen Delivery Method Room Air 04/04/23 16:02 <Sheila Rider DO - Last Filed: 04/05/23 01:35> Initial Vital Signs Initial Vital Signs: Vital Signs Temperature 98.6 F 04/04/23 16:02 Pulse Rate 94 H 04/04/23 16:02 Respiratory Rate 18 04/04/23 16:02 Blood Pressure 168/88 H 04/04/23 16:02 Pulse Oximetry 99 04/04/23 16:02 Oxygen Delivery Method Room Air 04/04/23 16:02 Course <Koby Cristina DO - Last Filed: 04/09/23 04:21> Orders Ordered: Discontinued Medications Dexamethasone (Dexamethasone 10 Mg/Ml Vial) 10 mg IV NOW ONE Stop: 04/04/23 16:19 Last Admin: 04/04/23 17:18 Dose: 10 mg Documented By: NR Diazepam (Diazepam 5 Mg Tablet) 5 mg PO NOW ONE Stop: 04/04/23 19:47 Last Admin: 04/04/23 19:57 Dose: 5 mg Documented By: SHAWNA Gabapentin (Gabapentin 300 Mg Capsule) 300 mg PO NOW ONE Stop: 04/04/23 16:19 Last Admin: 04/04/23 17:18 Dose: 300 mg Documented By: STEVEN Hydromorphone HCl (Hydromorphone 1 Mg Inj) 1 mg IV NOW ONE Stop: 04/04/23 16:18 Last Admin: 04/04/23 17:18 Dose: 1 mg Documented By: STEVEN Hydromorphone HCl (Hydromorphone 1 Mg Inj) 1 mg IV NOW ONE Stop: 04/04/23 18:04 Last Admin: 04/04/23 18:11 Dose: 1 mg Documented By: STEVEN Hydromorphone HCl (Hydromorphone 1 Mg Inj) 1 mg IV NOW ONE Stop: 04/04/23 19:47 Last Admin: 04/04/23 19:56 Dose: 1 mg Documented By: SHAWNA Vital Signs Vital signs: Vital Signs - 8 hr 04/04/23 18:00 04/04/23 18:00 04/04/23 19:10 Pulse Rate 75 79 Respiratory Rate 20 Blood Pressure 158/72 H 162/79 H Pulse Oximetry 96 97 Oxygen Delivery Method Room Air 04/04/23 19:30 04/04/23 20:14 04/04/23 20:14 Pulse Rate 72 73 Respiratory Rate 20 Blood Pressure 180/81 H 173/84 H Pulse Oximetry 97 96 Oxygen Delivery Method Room Air 04/04/23 20:23 Pulse Rate 76 Respiratory Rate 20 Blood Pressure 173/84 H Pulse Oximetry 96 Oxygen Delivery Method Room Air <Sheila Rider DO - Last Filed: 04/05/23 01:35> Orders Ordered: Discontinued Medications Dexamethasone (Dexamethasone 10 Mg/Ml Vial) 10 mg IV NOW ONE Stop: 04/04/23 16:19 Last Admin: 04/04/23 17:18 Dose: 10 mg Documented By: NR Diazepam (Diazepam 5 Mg Tablet) 5 mg PO NOW ONE Stop: 04/04/23 19:47 Last Admin: 04/04/23 19:57 Dose: 5 mg Documented By: OW Gabapentin (Gabapentin 300 Mg Capsule) 300 mg PO NOW ONE Stop: 04/04/23 16:19 Last Admin: 04/04/23 17:18 Dose: 300 mg Documented By: STEVEN Hydromorphone HCl (Hydromorphone 1 Mg Inj) 1 mg IV NOW ONE Stop: 04/04/23 16:18 Last Admin: 04/04/23 17:18 Dose: 1 mg Documented By: STEVEN Hydromorphone HCl (Hydromorphone 1 Mg Inj) 1 mg IV NOW ONE Stop: 04/04/23 18:04 Last Admin: 04/04/23 18:11 Dose: 1 mg Documented By: STEVEN Hydromorphone HCl (Hydromorphone 1 Mg Inj) 1 mg IV NOW ONE Stop: 04/04/23 19:47 Last Admin: 04/04/23 19:56 Dose: 1 mg Documented By: SHAWNA Vital Signs Vital signs: Vital Signs - 8 hr 04/04/23 18:00 04/04/23 18:00 04/04/23 19:10 Pulse Rate 75 79 Respiratory Rate 20 Blood Pressure 158/72 H 162/79 H Pulse Oximetry 96 97 Oxygen Delivery Method Room Air 04/04/23 19:30 04/04/23 20:14 04/04/23 20:14 Pulse Rate 72 73 Respiratory Rate 20 Blood Pressure 180/81 H 173/84 H Pulse Oximetry 97 96 Oxygen Delivery Method Room Air 04/04/23 20:23 Pulse Rate 76 Respiratory Rate 20 Blood Pressure 173/84 H Pulse Oximetry 96 Oxygen Delivery Method Room Air MDM - Back Pain/Injury <Koby Cristina DO - Last Filed: 04/09/23 04:21> Lab Data 04/04/23 16:56 04/04/23 16:56 Labs: Lab Results 04/04/23 04/04/23 04/04/23 Range/Units 16:56 16:56 16:56 WBC 11.3 H (4.5-11.0) X10^3/uL RBC 4.27 L (4.5-5.9) X10^6/uL Hgb 11.8 L (13.5-17.5) g/dL Hct 34.0 L (41-53) % MCV 79.8 L (80-100) fL MCH 27.6 (26-34) PG MCHC 34.5 (30-36) % RDW 15.8 H (11.6-14.8) % Plt Count 312 (150-400) X10^3/uL Neut % (Auto) 77.4 H (50-75) % Lymph % (Auto) 13.1 L (25-40) % [place] % (Auto) 8.5 (3-14) % Eos % (Auto) 0.4 L (2-4) % Baso % (Auto) 0.6 (0-2) % Neut # (Auto) 8800 H (8363-3149) /uL Lymph # (Auto) 1500 (9675-5191) /uL [place] # (Auto) 1000 H (0-900) /uL Eos # (Auto) 0 (0-450) /uL Baso # (Auto) 100 (0-100) /uL Sodium 137 (137-145) mmol/L Potassium 3.7 (3.4-5.1) mmol/L Chloride 101 (98-107) mmol/L Carbon Dioxide 28 (22-32) mmol/L BUN 15 (9-20) mg/dL Creatinine 0.74 (0.66-1.25) mg/dL Estimated GFR > 60 (>60) mL/min BUN/Creatinine Ratio 20.3 (6-22) Glucose 107 (80-110) mg/dL Calcium 8.5 (8.4-10.2) mg/dL Magnesium 2.0 (1.6-2.3) mg/dL Total Bilirubin 0.4 (0.2-1.3) mg/dL AST 22 (17-59) IU/L ALT 26 (<50) IU/L Alkaline Phosphatase 87 (38-126) U/L Total Creatine Kinase < 20 L (55-170) U/L CK-MB (CK-2) TNP CK-MB (CK-2) Rel Index TNP Troponin I < 0.012 (0.01-0.034) ng/mL Total Protein 7.3 (6.3-8.2) g/dL Albumin 4.1 (3.5-5.0) g/dL Globulin 3.2 (1.7-4.1) g/dL Albumin/Globulin Ratio 1.3 (1.0-2.8) Lipase 100 (23-300) U/L MDM Narrative Medical decision making narrative: [77] year old patient presents with fall with back pain Multiple etiologies for patient's symptoms considered including, but not limited to: [Fracture versus epidural abscess versus hematoma versus other] Prior Charts reviewed in our EMR Primary Historian: patient Labs reviewed and interpreted by myself: No significant lab abnormalities requiring specific or immediate intervention Imaging reviewed: Chest x-ray without acute findings. Lumbar x-ray with out acute findings. MRI pending Patient signed out to Dr. Rider for final disposition <Sheila Rider DO - Last Filed: 04/05/23 01:35> Lab Data Labs: Lab Results 04/04/23 04/04/23 04/04/23 Range/Units 16:56 16:56 16:56 WBC 11.3 H (4.5-11.0) X10^3/uL RBC 4.27 L (4.5-5.9) X10^6/uL Hgb 11.8 L (13.5-17.5) g/dL Hct 34.0 L (41-53) % MCV 79.8 L (80-100) fL MCH 27.6 (26-34) PG MCHC 34.5 (30-36) % RDW 15.8 H (11.6-14.8) % Plt Count 312 (150-400) X10^3/uL Neut % (Auto) 77.4 H (50-75) % Lymph % (Auto) 13.1 L (25-40) % [place] % (Auto) 8.5 (3-14) % Eos % (Auto) 0.4 L (2-4) % Baso % (Auto) 0.6 (0-2) % Neut # (Auto) 8800 H (9385-5525) /uL Lymph # (Auto) 1500 (9427-8829) /uL [place] # (Auto) 1000 H (0-900) /uL Eos # (Auto) 0 (0-450) /uL Baso # (Auto) 100 (0-100) /uL Sodium 137 (137-145) mmol/L Potassium 3.7 (3.4-5.1) mmol/L Chloride 101 (98-107) mmol/L Carbon Dioxide 28 (22-32) mmol/L BUN 15 (9-20) mg/dL Creatinine 0.74 (0.66-1.25) mg/dL Estimated GFR > 60 (>60) mL/min BUN/Creatinine Ratio 20.3 (6-22) Glucose 107 (80-110) mg/dL Calcium 8.5 (8.4-10.2) mg/dL Magnesium 2.0 (1.6-2.3) mg/dL Total Bilirubin 0.4 (0.2-1.3) mg/dL AST 22 (17-59) IU/L ALT 26 (<50) IU/L Alkaline Phosphatase 87 (38-126) U/L Total Creatine Kinase < 20 L (55-170) U/L CK-MB (CK-2) TNP CK-MB (CK-2) Rel Index TNP Troponin I < 0.012 (0.01-0.034) ng/mL Total Protein 7.3 (6.3-8.2) g/dL Albumin 4.1 (3.5-5.0) g/dL Globulin 3.2 (1.7-4.1) g/dL Albumin/Globulin Ratio 1.3 (1.0-2.8) Lipase 100 (23-300) U/L Imaging Data MR lumbar: Radiologist's Impression: PROCEDURE:? MR LUMBAR SPINE WO/W CON ? INDICATIONS:? pain, legs gave out, bladder trouble ? TECHNIQUE:? Noncontrast sagittal T1 spin echo and T2 fast spin echo, sagittal STIR, axial T1 and T2 fast spin echo through the lumbar spine.? In cases with scoliosis, additional coronal T2 fast spin echo may be performed.? After the administration of contrast, sagittal and axial T1 spin echo with fat saturation through the lumbar spine.? ? COMPARISON:? [facility], MR, MR LUMBAR SPINE WO CON, 02/25/2023, 19:33.? [facility], MR, MR LUMBAR SPINE WO/W CON, 05/26/2022, 16:21.? [facility], CR, XR LUMBAR SPINE 2-3V, 04/04/2023, 16:23.? [facility], MR, MR LUMBAR SPINE WO CON, 02/17/2022, 11:07.? [facility], MR, MR LUMBAR SPINE WO/W CON, 09/29/2020, 13:09.? [facility], MR, MR LUMBAR SPINE WO CON, 06/04/2019, 12:07. ? FINDINGS:? Image quality:? There is artifact associated with the metallic hardware, particularly on the postcontrast images. ? ? Alignment and curvature:? There is minimal retrolisthesis seen at T12-L1 and L1-L2..? ? Marrow:? Marrow is of normal overall signal.? No acute vertebral body compression fractures.? No suspicious marrow enhancement.? ? Spinal cord:? Conus medullaris terminates at the L1 level.? Visualized spinal cord demonstrates normal signal, without suspicious enhancement.? ? Paraspinous soft tissues:? No paravertebral masses or abnormal enhancement.? ? Extensive postoperative changes are seen, with bilateral pedicle screws T12 through L4.? Vertical fixation rods are seen.? Disc spacers are seen at L1-L2, L2-L3, and L3-L4. ? T12-L1:? The disc height and disk signal are relatively well-preserved.? Mild generalized disc bulge is seen.? Moderate bilateral neural foraminal narrowing is seen.? Moderate central canal narrowing is seen.? When comparison is made with the prior images, these findings are similar.? ? L1-L2:? At least moderate loss of disc height and disc signal can be seen.? At least moderate disc bulge is seen, with a central disc protrusion.? There is at least moderate bilateral neural foraminal narrowing seen.? Mild central canal narrowing is seen. When comparison is made with the prior images, these findings are similar.? ? L2-L3:? Mild generalized disc bulge is seen.? Moderate facet joint hypertrophy is seen. Moderate bilateral neural foraminal narrowing is seen.? Moderate central canal narrowing is seen.? No significant change from the prior.? ? L3-L4:? Moderate generalized disc bulge is seen.? Moderate bilateral neural foraminal narrowing can be seen, right worse than left.? No significant central canal narrowing is seen. Stable from the prior study.? ? L4-L5:? The disc height and disk signal are relatively well-preserved.? Mild to moderate disc bulge is seen.? Prominent facet hypertrophy is seen.? Moderate to severe bilateral neural foraminal narrowing can be seen.? There is a degree of compression seen upon the exiting nerve roots.? Mild central canal narrowing is seen.? When comparison is made with the prior images, these findings are similar.? ? L5-S1:? The disc height is well-preserved.? Loss of disc signal is seen at this level.? Mild generalized disc bulge is seen.? There is moderate right-sided and moderate to prominent left-sided facet hypertrophy.? There is at least moderate bilateral neural foraminal narrowing seen, left worse than right. There is a degree of compression seen upon the exiting nerve roots.? Minimal central canal narrowing is seen. When comparison is made with the prior images, these findings are similar.? ? ? IMPRESSION:? No significant acute abnormality is seen to explain the patient's presenting symptoms. ? 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 ? No abnormal enhancement is seen. ? ? Dictated by: Gregg Vásquez M.D. on 04/04/2023 at 18:14 ?? MDM Narrative Medical decision making narrative: [77] year old patient presents with fall with back pain Multiple etiologies for patient's symptoms considered including, but not limited to: [Fracture versus epidural abscess versus hematoma versus other] Prior Charts reviewed in our EMR Primary Historian: patient Labs reviewed and interpreted by myself: No significant lab abnormalities requiring specific or immediate intervention Imaging reviewed: Chest x-ray without acute findings. Lumbar x-ray with out acute findings. MRI pending Patient signed out to Dr. Rider for final disposition Patient signed out to me by Dr. Cristina and seen evaluated patient myself. He is acute on chronic pain with 2 falls today possible change in bladder. MR does not show any change from previous MRI. He is had multiple doses of Dilaudid. He reports that he has chronic pain level of 3-5 he is currently a 7 he is had couple doses of Dilaudid here in the ED. It seems to be a muscle spasm as he is having increased pain now. It is reproducible with palpation. Dissection was also considered but thought to be unlikely. It is non radiating this seems to be a worsening problem of his chronic back pain. He is on methocarbamol and oxycodone 10 mg. At this time changes carbon multi Valium to see if that helps. He is due to have a refill of his pain medication next week. He is feeling better after Valium and Dilaudid in the ED. Blood work is also overall reassuring without clinically significant abnormalities, leukocytosis 11.3 without signs or source of infection, no electrolyte abnormalities. At this time patient may be discharged home with outpatient follow-up. Discharge Plan Departure Patient Disposition: Home Clinical Impression: Acute exacerbation of chronic low back pain, Back spasm Instructions: DI for Low Back Pain, DI for Back Spasm Activity Restrictions/Additional Instructions: *You have been diagnosed with acute on chronic back pain, back spasm *What to do: *Continue to take medications as directed VAlium 5 mg every 12 hours if needed for back spasm, do not take with methocarbamol Oxycodone 5 mg as previously prescribed every 6 hours *Follow up with your primary care provider in 2-3 days or call [phone] *Return to ER if you should have increasing pain weakness or any new, worsening or concerning symptoms CONTROLLED SUBSTANCE DISCHARGE (Narcotoic/benzodiazepine/Flexeril/Phenergan) 1. You have been prescribed narcotic medications, it does have acetaminophen/Tylenol/paracetamol in it, DO NOT TAKE MORE THAN 4,00mg in 24 hours of Tylenol. TRAMADOL DOES NOT CONTAIN TYLENOL 2. Please understand that we cannot provide further refills of narcotics, benzodiazepines or controlled substances through the ED and her pain management will need to be through your provider. 3. While on these medications you cannot drive or operate heavy machinery. 4. You cannot sign legal documents or perform any duties such as this. 5. As long as you're taking opiate pain medications he should also be taking a stool softener such as Colace, Dulcolax, MiraLAX or prune juice, to help avoid constipation. Prescriptions: New diazepam [Valium] 5 mg tablet 5 mg PO Q12HR PRN (Reason: muscle spasm) Qty: 10 0RF oxycodone 5 mg tablet 5 mg PO Q6H PRN (Reason: pain) Qty: 10 0RF No Action fluoxetine 10 mg capsule See Rx Instructions .ROUTE .COMPLEX Qty: 90 3RF Dose Instruction: take 1 capsule by mouth once daily WITH 20MG CAP DAILY TOTAL 30 MG DAILY Rx Instructions: take 1 capsule by mouth once daily WITH 20MG CAP DAILY TOTAL 30 MG DAILY fluoxetine 20 mg capsule 20 mg PO DAILY Qty: 90 3RF Rx Instructions: Take with 10 mg to complete 30 mg dose albuterol sulfate 2.5 mg /3 mL (0.083 %) solution for nebulization 2.5 mg Continuous Nebulization Q6HP PRN (Reason: shortness of breath or wheezing) Qty: 360 2RF albuterol sulfate 90 mcg/actuation HFA aerosol inhaler 1 inh INHALATION Q4-6H PRN (Reason: shortness of breath) Qty: 18 4RF omeprazole 40 mg capsule,delayed release(DR/EC) 40 mg PO DAILY Qty: 90 3RF Rx Instructions: take 1 capsule by mouth once daily lidocaine 5 % adhesive patch,medicated 2 patch topical DAILY Qty: 30 1RF Rx Instructions: leave on most painful area for up to 12 hrs metoprolol succinate 100 mg tablet extended release 24 hr 100 mg PO DAILY Qty: 90 1RF azithromycin 500 mg tablet See Rx Instructions PO .COMPLEX Qty: 6 0RF Rx Instructions: For 250 mg dose pack: take 500 mg today (day 1), then 250 mg for 4 days (days 2-5) PO oxycodone 10 mg tablet 10 mg PO QID PRN (Reason: pain) Qty: 120 0RF meclizine 25 mg tablet 25 mg PO TID PRN (Reason: dizziness) Qty: 30 0RF ketoconazole 2 % cream 1 applic topical BID Qty: 30 1RF methocarbamol 500 mg tablet 500 mg PO TID PRN (Reason: muscle spasm) Qty: 60 1RF hydromorphone [Dilaudid] 2 mg tablet 2 mg PO Q6H PRN (Reason: pain) Qty: 60 0RF potassium chloride 10 mEq capsule, extended release 10 meq PO DAILY Qty: 30 1RF nitroglycerin 0.4 mg tablet, sublingual 0.4 mg sublingual Q5M PRN (Reason: chest pain) Qty: 20 1RF Rx Instructions: do not exceed 3 doses per episode hydromorphone 2 mg tablet 2 mg PO BEDTIME PRN (Reason: pain) Qty: 30 0RF ketorolac 10 mg tablet 10 mg PO Q6H PRN (Reason: pain) Qty: 14 0RF diazepam [Valium] 2 mg tablet 2 mg PO BID-TID PRN (Reason: muscle spasm) Qty: 10 0RF methylprednisolone [Medrol (Dennis)] 4 mg tablets,dose pack See Rx Instructions .ROUTE .COMPLEX Qty: 21 0RF Rx Instructions: orally per package directions potassium chloride 20 mEq tablet extended release 20 meq PO BID Qty: 10 0RF Disabled Parking Permit 1 1 % SEEINSTR Rx Instructions: Valid for 5 years sulfasalazine 500 mg tablet 1,000 mg PO BID amlodipine 5 mg tablet 5 mg PO BEDTIME Patient Comments: pt received dose in hospital 11/10/19 early AM admit to [facility] valacyclovir 1 gram tablet 1,000 mg PO Q8H PRN (Reason: Breakout) hydrochlorothiazide 25 mg tablet 12.5 mg PO QAM losartan 100 mg tablet 100 mg PO DAILY polyethylene glycol 3350 17 gram Powder In Packet 17 g PO DAILY Qty: 14 0RF ibuprofen 400 mg Tablet 400 mg PO Q4HR PRN (Reason: Pain, Mild (1-3)) Qty: 60 0RF aspirin 81 mg capsule 81 mg PO BID Qty: 60 0RF ipratropium-albuterol 0.5 mg-3 mg(2.5 mg base)/3 mL solution for nebulization 3 ml inhalation Q6H PRN (Reason: shortness of breath or wheezing) Qty: 90 0RF prednisone 20 mg tablet 20 mg PO DAILY 6 Days Qty: 6 0RF Rx Instructions: next dose 04/08/23 oxycodone-acetaminophen [Percocet] 5-325 mg tablet 1 tab PO Q8H PRN (Reason: pain) Qty: 6 0RF Referrals: Edilberto Snell DO [Primary Care Provider] - Stand Alone Forms: Patient Portal/API
[2023-04-04 17:12] LABS: Add Manual Diff / Slide Review NO; Basophils Absolute Auto 100 /uL (0-100); Basophils Percent Auto 0.6 % (0-2); Eosinophils Absolute Auto 0 /uL (0-450); Eosinophils Percent Auto 0.4 % (2-4); Hemoglobin 11.8 g/dL (13.5-17.5); Lymphocytes Absolute Auto 1500 /uL (1100-4500); Lymphocytes Percent Auto 13.1 % (25-40); Mean Corpuscular HGB Conc 34.5 % (30-36); Mean Corpuscular Hemoglobin 27.6 PG (26-34); Mean Corpuscular Volume 79.8 fL (80-100); Monocytes Absolute Auto 1000 /uL (0-900); Monocytes Percent Auto 8.5 % (3-14); Neutrophils Absolute Auto 8800 /uL (1500-7000); Neutrophils Percent Auto 77.4 % (50-75); Platelet Count 312 X10^3/uL (150-400); Red Blood Cell Count 4.27 X10^6/uL (4.5-5.9); Red Cell Distribution Width 15.8 % (11.6-14.8); White Blood Cell Count 11.3 X10^3/uL (4.5-11.0)
[2023-04-04 17:17] LABS: Alanine Aminotransferase 26 IU/L (<50); Albumin 4.1 g/dL (3.5-5.0); Albumin Globulin Ratio 1.3 (1.0-2.8); Alkaline Phosphatase 87 U/L (38-126); Aspartate Aminotransferase 22 IU/L (17-59); BUN Creatinine Ratio 20.3 (6-22); Bilirubin Total 0.4 mg/dL (0.2-1.3); Blood Urea Nitrogen 15 mg/dL (9-20); Calcium 8.5 mg/dL (8.4-10.2); Carbon Dioxide 28 mmol/L (22-32); Chloride 101 mmol/L (98-107); Creatine Kinase < 20 U/L (55-170); Estimated Glomerular Filt Rate > 60 mL/min (>60); Globulin 3.2 g/dL (1.7-4.1); Glucose 107 mg/dL (80-110); HEMOLYSIS < 15 (0-50); Lipase 100 U/L (23-300); Potassium 3.7 mmol/L (3.4-5.1); Sodium 137 mmol/L (137-145); Total Protein 7.3 g/dL (6.3-8.2)
[2023-04-04] MEDS: GABAPENTIN 300 MG CAPSULE PO (17:18)
[2023-04-04] MEDS: DEXAMETHASONE 10 MG/ML VIAL IV (17:18)
[2023-04-04] MEDS: HYDROMORPHONE 1 MG INJ IV ×3 (17:18→19:56)
[2023-04-04 17:29] LABS: Troponin I < 0.012 ng/mL (0.01-0.034)
[2023-04-04] MEDS: diazePAM 5 MG TABLET PO (19:57)
== END 2023-04-04 20:22 | disposition home or self-care (01) ==
PROVIDERS: Emergency Medicine; Emergency Provider Emergency Medicine; PCP Family Medicine
DX: M54.50 Low back pain, unspecified (principal); M62.830 Muscle spasm of back; R07.9 Chest pain, unspecified
CPT/HCPCS: 36415; 71045; 72100; 72158; 80053; 82550; 83690; 83735; 84484; 85025; 93005; 96374; 96375; 96376; 99284; A9579; J1100; J1170

== ENCOUNTER 2023-04-07 15:51 | Emergency (ER) | payer MEDICARE, OTHER, SELFPAY ==
[2022-11-15 12:10] VITALS: BMI 30.8
[2023-04-07 15:58] VITALS: BP 129/68; PULSE 84; RESP 20; TEMP 36.4; O2SAT 97; BMI 31.0
--- NOTE | 2023-04-07 16:00 | ED.GENADULT ---
HPI - General Adult General Chief complaint: Back Pain/Injury Stated complaint: Severe back pain, to lower leg pain Time Seen by Provider: 04/07/23 15:52 Source: patient Mode of arrival: Wheelchair Limitations: no limitations History of Present Illness HPI narrative: Patient is a 77-year-old male with a known history of low back issues and chronic low back pain. Is on chronic pain medication. Was seen here in the emergency department within the past week. Had an MRI performed which did show multilevel degenerative disease but not worse than prior MRIs. He states that last Saturday he went on a motorcycle ride. Afterwards he is had increasing discomfort to his lower back to the point where he has a hard time standing and walking. Pain is radiating down to his leg. No bowel or bladder changes. No fevers. No new specific trauma. Related Data Home Medications Medication Instructions Recorded Confirmed Disabled Parking Permit 1 % SEEINSTR 11/08/20 03/28/23 sulfasalazine 500 mg tablet 1,000 mg PO BID 11/10/20 03/28/23 amlodipine 5 mg tablet 5 mg PO BEDTIME 11/08/22 03/28/23 valacyclovir 1 gram tablet 1,000 mg PO Q8H PRN Breakout 11/08/22 03/28/23 hydrochlorothiazide 25 mg tablet 12.5 mg PO QAM 11/15/22 03/28/23 losartan 100 mg tablet 100 mg PO DAILY 11/15/22 03/28/23 Previous Rx's Medication Instructions Recorded fluoxetine 10 mg capsule See Rx Instructions .Route 08/14/22 .COMPLEX #90 caps fluoxetine 20 mg capsule 20 mg PO DAILY #90 caps 08/14/22 meclizine 25 mg tablet 25 mg PO TID PRN dizziness #30 tabs 10/16/22 albuterol sulfate 2.5 mg/3 mL 2.5 mg (3 mL) continuous 10/24/22 (0.083 %) solution for nebulization nebulization Q6HP PRN shortness of breath or wheezing #360 mL aspirin 81 mg capsule 81 mg PO BID #60 caps 11/16/22 ibuprofen 400 mg tablet 400 mg PO Q4HR PRN Pain, Mild 11/16/22 (1-3) #60 tabs polyethylene glycol 3350 17 gram 17 g PO DAILY #14 ea 11/16/22 oral powder packet azithromycin 500 mg tablet See Rx Instructions PO .COMPLEX #6 11/28/22 tabs albuterol sulfate 90 mcg/actuation 1 inh inhalation Q4-6H PRN 12/27/22 aerosol inhaler shortness of breath #18 grams omeprazole 40 mg capsule,delayed 40 mg PO DAILY #90 caps 01/01/23 release lidocaine 5 % topical patch 2 patch topical DAILY #30 ea 01/08/23 metoprolol succinate 100 mg 100 mg PO DAILY #90 tabs 01/24/23 tablet,extended release 24 hr ketoconazole 2 % topical cream 1 applic topical BID #30 grams 02/08/23 methocarbamol 500 mg tablet 500 mg PO TID PRN muscle spasm #60 02/08/23 tabs diazepam 2 mg tablet (Valium) 2 mg PO BID-TID PRN muscle spasm 02/26/23 #10 tabs ketorolac 10 mg tablet 10 mg PO Q6H PRN pain #14 tabs 02/26/23 methylprednisolone 4 mg tablets in See Rx Instructions PO .COMPLEX 02/26/23 a dose pack (Medrol (Dennis)) #21 ea potassium chloride 20 mEq 20 meq PO BID #10 tabs 02/26/23 tablet,extended release hydromorphone 2 mg tablet 2 mg PO Q6H PRN pain #60 tabs 03/01/23 (Dilaudid) potassium chloride 10 mEq 10 meq PO DAILY #30 caps 03/01/23 capsule,extended release oxycodone 10 mg tablet 10 mg PO QID PRN pain #120 tabs 03/15/23 ipratropium 0.5 mg-albuterol 3 mg 3 ml inhalation Q6H PRN shortness 03/19/23 (2.5 mg base)/3 mL nebulization of breath or wheezing #90 mL soln hydromorphone 2 mg tablet 2 mg PO BEDTIME PRN pain #30 tabs 03/28/23 nitroglycerin 0.4 mg sublingual 0.4 mg sublingual Q5M PRN chest 03/28/23 tablet pain #20 tabs diazepam 5 mg tablet (Valium) 5 mg PO Q12HR PRN muscle spasm #10 04/04/23 tabs oxycodone 5 mg tablet 5 mg PO Q6H PRN pain #10 tabs 04/04/23 oxycodone-acetaminophen 5 mg-325 1 tab PO Q8H PRN pain #6 tabs 04/07/23 mg tablet (Percocet) prednisone 20 mg tablet 20 mg PO DAILY 6 days #6 tabs 04/07/23 Allergies Allergy/AdvReac Type Severity Reaction Status Date / Time cyclobenzaprine Allergy Severe Dizziness, Verified 03/28/23 09:28 [From Flexeril] I bounce off ag acetaminophen [ACETAMINOPHEN] AdvReac Unknown Can't take Verified 03/28/23 09:28 r/t Hep C; upset stomach Review of Systems Constitutional Constitutional: Reports system reviewed and no additional complaints, except as documented Musculoskeletal Musculoskeletal: Reports system reviewed and no additional complaints, except as documented Integumentary/Breasts Skin/Breast: Reports system reviewed and no additional complaints, except as documented Neurologic Neurologic: Reports system reviewed and no additional complaints, except as documented Patient History Medical History Abdominal wall pain in both lower quadrants Acute exacerbation of chronic bronchitis Adhesive capsulitis Aftercare following left shoulder joint replacement surgery Anemia Anxiety Arthritis (Unknown) Chronic ankle pain, bilateral Chronic pain syndrome (Unknown) Colles' fracture Constipation Depression (Unknown) Dyspepsia Fibromyalgia Foraminal stenosis of lumbar region Hepatitis C (Unknown) Hypertension (Unknown) Impotence (Unknown) Kidney stones (Unknown) Left lateral epicondylitis Left shoulder strain Migraines (Unknown) Oral lesion Peripheral neuropathy Pneumonia (~2017) Preoperative clearance Prostate cancer (Unknown) PTSD (post-traumatic stress disorder) (Unknown) Restless leg syndrome (Unknown) Rheumatoid arthritis Right wrist pain Right wrist sprain Sinus drainage Skin cancer (Unknown) Tinea Surgical History History of ankle surgery History of back surgery History of carpal tunnel repair History of lumbar fusion History of lumbar fusion (05/10/22) History of prosthetic unicompartmental arthroplasty of right knee History of tonsillectomy History of total replacement of right shoulder joint Hx of foot surgery Hx of laminectomy (10/2012) Status post cholecystectomy Status post knee surgery Family History Father Heart disease Mother No problems noted. Social History marital status: household members: spouse lives independently: Yes occupational status: previously employed Smoking Status: Former smoker Tobacco: How many years used: 20 quit status: has quit before alcohol intake: former substance use type: former substance user and marijuana Smoking Status: Former smoker tobacco type: cigarettes alcohol intake frequency: 0-2 drinks per day Substance Use Type: does not use, former substance user and IV drugs Exam Initial Vital Signs Initial Vital Signs: Vital Signs Temperature 97.5 F L 04/07/23 15:58 Pulse Rate 84 04/07/23 15:58 Respiratory Rate 20 04/07/23 15:58 Blood Pressure 129/68 04/07/23 15:58 Pulse Oximetry 97 04/07/23 15:58 Oxygen Delivery Method Room Air 04/07/23 15:58 HENMT Head: normal to inspection and normocephalic Resp Effort & Inspection: normal respiratory effort Cardio Rate: regular rate Course Orders Ordered: Discontinued Medications Hydromorphone HCl (Hydromorphone 1 Mg Inj) 1 mg IM NOW ONE Stop: 04/07/23 16:00 Last Admin: 04/07/23 16:04 Dose: 1 mg Documented By: CARLA Prednisone (Prednisone 20 Mg Tablet) 20 mg PO NOW ONE Stop: 04/07/23 16:00 Last Admin: 04/07/23 16:04 Dose: 20 mg Documented By: CARLA Vital Signs Vital signs: Vital Signs - 8 hr 04/07/23 15:58 04/07/23 16:59 Temperature 97.5 F L 97.6 F Pulse Rate 84 79 Respiratory Rate 20 16 Blood Pressure 129/68 136/71 Pulse Oximetry 97 98 Oxygen Delivery Method Room Air Room Air Medical Decision Making [facility] Narrative Medical decision making narrative: Patient has recently saw his primary doctor. They have added Dilaudid onto his regimen that he takes at night. He is other pain medication at home. He recently has had an MRI. No fevers. No specific trauma. No indication for any further radiologic studies today. Will start the patient on steroids. He was given his 1st dose here in the ER. He does need to talk with his primary doctor about a refill of any pain medication. He also needs to talk with his primary doctor about referral to see pain management or physical therapy or spine specialty. Patient was informed that the emergency department will no longer provide refills to his chronic pain medication. Discharge Plan Departure Patient Disposition: Home Clinical Impression: Acute exacerbation of chronic low back pain Instructions: DI for Low Back Pain Activity Restrictions/Additional Instructions: It is important you continue to take all of your medications as directed. You will need to talk with your primary doctor about a refill of any of your chronic pain medication. You also need to talk with your primary doctor about a referral to see either physical therapy, pain management or a denial resolution specialist. Return to the emergency department for new symptoms. Prescriptions: New prednisone 20 mg tablet 20 mg PO DAILY 6 Days Qty: 6 0RF Rx Instructions: next dose 04/08/23 oxycodone-acetaminophen [Percocet] 5-325 mg tablet 1 tab PO Q8H PRN (Reason: pain) Qty: 6 0RF No Action fluoxetine 10 mg capsule See Rx Instructions .ROUTE .COMPLEX Qty: 90 3RF Dose Instruction: take 1 capsule by mouth once daily WITH 20MG CAP DAILY TOTAL 30 MG DAILY Rx Instructions: take 1 capsule by mouth once daily WITH 20MG CAP DAILY TOTAL 30 MG DAILY fluoxetine 20 mg capsule 20 mg PO DAILY Qty: 90 3RF Rx Instructions: Take with 10 mg to complete 30 mg dose albuterol sulfate 2.5 mg /3 mL (0.083 %) solution for nebulization 2.5 mg Continuous Nebulization Q6HP PRN (Reason: shortness of breath or wheezing) Qty: 360 2RF albuterol sulfate 90 mcg/actuation HFA aerosol inhaler 1 inh INHALATION Q4-6H PRN (Reason: shortness of breath) Qty: 18 4RF omeprazole 40 mg capsule,delayed release(DR/EC) 40 mg PO DAILY Qty: 90 3RF Rx Instructions: take 1 capsule by mouth once daily lidocaine 5 % adhesive patch,medicated 2 patch topical DAILY Qty: 30 1RF Rx Instructions: leave on most painful area for up to 12 hrs metoprolol succinate 100 mg tablet extended release 24 hr 100 mg PO DAILY Qty: 90 1RF azithromycin 500 mg tablet See Rx Instructions PO .COMPLEX Qty: 6 0RF Rx Instructions: For 250 mg dose pack: take 500 mg today (day 1), then 250 mg for 4 days (days 2-5) PO oxycodone 10 mg tablet 10 mg PO QID PRN (Reason: pain) Qty: 120 0RF meclizine 25 mg tablet 25 mg PO TID PRN (Reason: dizziness) Qty: 30 0RF ketoconazole 2 % cream 1 applic topical BID Qty: 30 1RF methocarbamol 500 mg tablet 500 mg PO TID PRN (Reason: muscle spasm) Qty: 60 1RF hydromorphone [Dilaudid] 2 mg tablet 2 mg PO Q6H PRN (Reason: pain) Qty: 60 0RF potassium chloride 10 mEq capsule, extended release 10 meq PO DAILY Qty: 30 1RF nitroglycerin 0.4 mg tablet, sublingual 0.4 mg sublingual Q5M PRN (Reason: chest pain) Qty: 20 1RF Rx Instructions: do not exceed 3 doses per episode hydromorphone 2 mg tablet 2 mg PO BEDTIME PRN (Reason: pain) Qty: 30 0RF ketorolac 10 mg tablet 10 mg PO Q6H PRN (Reason: pain) Qty: 14 0RF diazepam [Valium] 2 mg tablet 2 mg PO BID-TID PRN (Reason: muscle spasm) Qty: 10 0RF methylprednisolone [Medrol (Dennis)] 4 mg tablets,dose pack See Rx Instructions .ROUTE .COMPLEX Qty: 21 0RF Rx Instructions: orally per package directions potassium chloride 20 mEq tablet extended release 20 meq PO BID Qty: 10 0RF Disabled Parking Permit 1 1 % SEEINSTR Rx Instructions: Valid for 5 years sulfasalazine 500 mg tablet 1,000 mg PO BID amlodipine 5 mg tablet 5 mg PO BEDTIME Patient Comments: pt received dose in hospital 11/10/19 early AM admit to AC valacyclovir 1 gram tablet 1,000 mg PO Q8H PRN (Reason: Breakout) hydrochlorothiazide 25 mg tablet 12.5 mg PO QAM losartan 100 mg tablet 100 mg PO DAILY polyethylene glycol 3350 17 gram Powder In Packet 17 g PO DAILY Qty: 14 0RF ibuprofen 400 mg Tablet 400 mg PO Q4HR PRN (Reason: Pain, Mild (1-3)) Qty: 60 0RF aspirin 81 mg capsule 81 mg PO BID Qty: 60 0RF ipratropium-albuterol 0.5 mg-3 mg(2.5 mg base)/3 mL solution for nebulization 3 ml inhalation Q6H PRN (Reason: shortness of breath or wheezing) Qty: 90 0RF diazepam [Valium] 5 mg tablet 5 mg PO Q12HR PRN (Reason: muscle spasm) Qty: 10 0RF oxycodone 5 mg tablet 5 mg PO Q6H PRN (Reason: pain) Qty: 10 0RF Referrals: Edilberto Snell DO [Primary Care Provider] - Stand Alone Forms: Patient Portal/API
[2023-04-07] MEDS: predniSONE 20 MG TABLET PO (16:04)
[2023-04-07] MEDS: HYDROMORPHONE 1 MG INJ IM (16:04)
[2023-04-07 16:59] VITALS: BP 136/71; PULSE 79; RESP 16; TEMP 36.4; O2SAT 98
== END 2023-04-07 17:00 | disposition home or self-care (01) ==
PROVIDERS: Emergency Provider Emergency Medicine; PCP Family Medicine
DX: M54.50 Low back pain, unspecified (principal); G89.29 Other chronic pain
CPT/HCPCS: 96372; 99283; J1170

== ENCOUNTER 2023-06-09 13:25 | Emergency (ER) | payer MEDICARE, OTHER, SELFPAY ==
[2022-11-15 12:10] VITALS: BMI 30.8
[2023-06-09] VITALS (13 sets, daily range): BP systolic 159–227; BP diastolic 88–99; PULSE 64–95; RESP 17–29; TEMP 36.3; O2SAT 95–100; BMI 29.6
--- NOTE | 2023-06-09 13:48 | DI.RAD.S_ITS ---
PROCEDURE: XR CHEST 1V INDICATIONS: chest pain TECHNIQUE: One view of the chest was acquired. COMPARISON: [facility], CR, XR CHEST 1V, 04/04/2023, 16:23. FINDINGS: Surgical changes and devices: Bilateral shoulder arthroplasty hardware is partially seen. Lumbar spine fixation hardware is also partially seen. Lungs and pleura: Lungs are clear. No pleural effusions or pneumothorax. Mediastinum: The cardiac contours are within normal limits. The aorta demonstrates calcification and tortuosity. Bones and chest wall: No suspicious bony lesions. Age-appropriate bony degenerative changes are seen. Overlying soft tissues appear unremarkable. IMPRESSION: No acute cardiopulmonary process is seen. Postoperative and degenerative changes are seen. Dictated by: Gregg Vásquez M.D. on 06/09/2023 at 13:30 Approved by: Gregg Vásquez M.D. on 06/09/2023 at 13:30
--- NOTE | 2023-06-09 14:20 | PC.NURSE ---
Pt c/o acute exacerbation of chronic back pain. Also reports sudden onset midsternal CP this morning that improved to ongoing tightness after taking nitroglycerin at home.
--- NOTE | 2023-06-09 14:33 | PC.NURSE ---
RN attempting US IV start
[2023-06-09] MEDS: ASPIRIN 81 MG CHEW TAB 324 MG PO (14:39)
--- NOTE | 2023-06-09 14:51 | ED.CHESTPAIN ---
HPI - Chest Pain General Chief Complaint: Chest Pain Stated Complaint: back pain t-5/ chest pain Time Seen by Provider: 06/09/23 13:57 Source: patient Mode of arrival: Family Vehicle Limitations: no limitations History of Present Illness HPI narrative: 77-year-old male former smoker with history of hypertension, kidney stones, pneumonia, PTSD, prostate cancer, prior back problems presents with a chief complaint of back pain that seems likely to be his chronic pain but also started having some sharp and stabbing central chest pain this morning. He denies any trauma or injury. He states his pain seems to be worse when he moves and when he takes a deep breath. He denies radiation of this pain or associated symptoms such as dizziness, weakness or lightheadedness. He has no shortness of breath or cough. He denies fever or chills. He denies exertional symptoms or exercise intolerance. Related Data Home Medications Medication Instructions Recorded Confirmed Disabled Parking Permit 1 % SEEINSTR 11/08/20 04/26/23 sulfasalazine 500 mg tablet 1,000 mg PO BID 11/10/20 04/26/23 amlodipine 5 mg tablet 5 mg PO BEDTIME 11/08/22 04/26/23 valacyclovir 1 gram tablet 1,000 mg PO Q8H PRN Breakout 11/08/22 04/26/23 hydrochlorothiazide 25 mg tablet 12.5 mg PO QAM 11/15/22 04/26/23 losartan 100 mg tablet 100 mg PO DAILY 11/15/22 04/26/23 Previous Rx's Medication Instructions Recorded fluoxetine 10 mg capsule See Rx Instructions .Route 08/14/22 .COMPLEX #90 caps fluoxetine 20 mg capsule 20 mg PO DAILY #90 caps 08/14/22 albuterol sulfate 2.5 mg/3 mL 2.5 mg (3 mL) continuous 10/24/22 (0.083 %) solution for nebulization nebulization Q6HP PRN shortness of breath or wheezing #360 mL ibuprofen 400 mg tablet 400 mg PO Q4HR PRN Pain, Mild 11/16/22 (1-3) #60 tabs albuterol sulfate 90 mcg/actuation 1 inh inhalation Q4-6H PRN 12/27/22 aerosol inhaler shortness of breath #18 grams omeprazole 40 mg capsule,delayed 40 mg PO DAILY #90 caps 01/01/23 release lidocaine 5 % topical patch 2 patch topical DAILY #30 ea 01/08/23 metoprolol succinate 100 mg 100 mg PO DAILY #90 tabs 01/24/23 tablet,extended release 24 hr ketoconazole 2 % topical cream 1 applic topical BID #30 grams 02/08/23 potassium chloride 20 mEq 20 meq PO BID #10 tabs 02/26/23 tablet,extended release ipratropium 0.5 mg-albuterol 3 mg 3 ml inhalation Q6H PRN shortness 03/19/23 (2.5 mg base)/3 mL nebulization of breath or wheezing #90 mL soln nitroglycerin 0.4 mg sublingual 0.4 mg sublingual Q5M PRN chest 03/28/23 tablet pain #20 tabs oxycodone 10 mg tablet 10 mg PO QID PRN pain #120 tabs 05/27/23 hydromorphone 2 mg tablet 2 mg PO BEDTIME PRN pain #30 tabs 06/03/23 Allergies Allergy/AdvReac Type Severity Reaction Status Date / Time cyclobenzaprine Allergy Severe Dizziness, Verified 06/09/23 13:47 [From Flexeril] I bounce off ag acetaminophen [ACETAMINOPHEN] AdvReac Unknown Can't take Verified 06/09/23 13:47 r/t Hep C; upset stomach Review of Systems Review of Systems Narrative: GENERAL: Denies chills, fatigue, malaise, fever, sweats. HEENT: Denies sinus pain, ear pain, sore throat, difficulty swallowing, dizziness. RESPIRATORY: Denies dyspnea, cough, wheezing, hemoptysis, sputum. CARDIOVASCULAR: See HPI GASTROINTESTINAL: Denies nausea, vomiting, abdominal pain, diarrhea, constipation, melena. : Denies dysuria, frequency, incontinence, hematuria, urinary retention. MUSCULOSKELETAL: See HPI SKIN: Denies rash, skin lesions, or other NEUROLOGIC: Denies weakness, headache, numbness, change in speech, confusion, seizures, incoordination. PSYCHIATRIC: No concerning psychosocial issues. 12 point review of systems is negative except for those stated above Patient History Medical History Abdominal wall pain in both lower quadrants Acute exacerbation of chronic bronchitis Adhesive capsulitis Aftercare following left shoulder joint replacement surgery Anemia Anxiety Arthritis (Unknown) Chronic ankle pain, bilateral Chronic pain syndrome (Unknown) Colles' fracture Constipation Depression (Unknown) Dyspepsia Eustachian tube dysfunction Fibromyalgia Foraminal stenosis of lumbar region Hepatitis C (Unknown) Hypertension (Unknown) Impotence (Unknown) Kidney stones (Unknown) Left lateral epicondylitis Left shoulder strain Migraines (Unknown) Oral lesion Peripheral neuropathy Pneumonia (~2018) Preoperative clearance Prostate cancer (Unknown) PTSD (post-traumatic stress disorder) (Unknown) Restless leg syndrome (Unknown) Rheumatoid arthritis Right wrist pain Right wrist sprain Seasonal allergic rhinitis Sinus drainage Skin cancer (Unknown) Tinea Surgical History History of ankle surgery History of back surgery History of carpal tunnel repair History of lumbar fusion History of lumbar fusion (05/10/22) History of prosthetic unicompartmental arthroplasty of right knee History of tonsillectomy History of total replacement of right shoulder joint Hx of foot surgery Hx of laminectomy (10/2012) S/P lumbar fusion Status post cholecystectomy Status post knee surgery Family History Father Heart disease Mother No problems noted. Social History marital status: household members: spouse lives independently: Yes occupational status: previously employed Smoking Status: Former smoker Tobacco: How many years used: 20 quit status: has quit before alcohol intake: former substance use type: former substance user and marijuana Smoking Status: Former smoker tobacco type: cigarettes alcohol intake frequency: 0-2 drinks per day Substance Use Type: does not use, former substance user and IV drugs Exam Narrative Exam Narrative: GENERAL: [77] year old patient appears stated age. Well-developed patient, in mild distress. HEAD: Atraumatic. Normocephalic. EYES: Pupils equal round and reactive. Extraocular motions intact. No scleral icterus. No injection or drainage. ENT: Nose without bleeding, purulent drainage. Throat without erythema, tonsillar hypertrophy or exudate. Airway patent. NECK: Trachea midline. Non tender CARDIOVASCULAR: Regular rate and rhythm without murmurs, gallops, or rubs. RESPIRATORY: Clear to auscultation. Breath sounds equal bilaterally. No wheezes, rales, or rhonchi. GASTROINTESTINAL: Abdomen soft, non-tender, nondistended. EXTREMITIES: No edema or joint tenderness. BACK: Nontender without deformity or crepitance. No flank tenderness. NEURO: AOx3. SKIN: No rash or erythema of visible areas Initial Vital Signs Initial Vital Signs: Vital Signs Temperature 97.4 F L 06/09/23 13:30 Pulse Rate 95 H 06/09/23 13:30 Respiratory Rate 17 06/09/23 13:30 Blood Pressure 159/91 H 06/09/23 13:30 Pulse Oximetry 98 06/09/23 13:30 Oxygen Delivery Method Room Air 06/09/23 13:30 Course Orders Ordered: ED Orders 06/09/23 13:48 XR chest 1V Stat EKG-12 Lead Stat 06/09/23 15:29 Complete Blood Count AUTO DIFF Stat Comprehensive Metabolic Panel Stat D Dimer Stat Lipase Stat Magnesium Stat PTT Partial Thromboplastin Rao Stat Prothrombin Time INR Stat Troponin & CK Cardiac Panel Stat 06/09/23 16:10 CT angio chest PE protocol Stat Discontinued Medications Aspirin (Aspirin 81 Mg Chew Tab) 324 mg PO NOW ONE Stop: 06/09/23 13:49 Last Admin: 06/09/23 14:39 Dose: 324 mg Documented By: ST Hydromorphone HCl (Hydromorphone 1 Mg Inj) 1 mg IV NOW ONE Stop: 06/09/23 16:11 Last Admin: 06/09/23 16:17 Dose: 1 mg Documented By: GEORGE Hydromorphone HCl (Hydromorphone 1 Mg Inj) 1 mg IV NOW ONE Stop: 06/09/23 17:26 Last Admin: 06/09/23 17:34 Dose: 1 mg Documented By: ST Ketorolac Tromethamine (Ketorolac 30 Mg/Ml Vial) 15 mg IV NOW ONE Stop: 06/09/23 17:26 Last Admin: 06/09/23 17:34 Dose: 15 mg Documented By: ST Vital Signs Vital signs: Vital Signs - 8 hr 06/09/23 13:30 06/09/23 14:18 06/09/23 14:20 Temperature 97.4 F L Pulse Rate 95 H 94 H Respiratory Rate 17 Blood Pressure 159/91 H 180/99 H Pulse Oximetry 98 99 Oxygen Delivery Method Room Air 06/09/23 14:20 06/09/23 14:30 06/09/23 15:00 Temperature Pulse Rate 90 83 76 Respiratory Rate 23 26 H 26 H Blood Pressure Pulse Oximetry 99 95 100 Oxygen Delivery Method 06/09/23 15:30 06/09/23 16:00 06/09/23 16:30 Temperature Pulse Rate 77 73 70 Respiratory Rate 21 21 21 Blood Pressure Pulse Oximetry 99 99 Oxygen Delivery Method 06/09/23 16:33 06/09/23 16:33 06/09/23 17:00 Temperature Pulse Rate 68 64 Respiratory Rate 22 20 Blood Pressure 202/99 H Pulse Oximetry 100 100 Oxygen Delivery Method 06/09/23 17:01 06/09/23 17:01 06/09/23 17:30 Temperature Pulse Rate 66 Respiratory Rate 29 H Blood Pressure 199/88 H 227/98 H Pulse Oximetry 99 Oxygen Delivery Method 06/09/23 17:30 06/09/23 18:00 06/09/23 18:00 Temperature Pulse Rate 82 78 Respiratory Rate 24 17 Blood Pressure 195/93 H Pulse Oximetry 99 98 Oxygen Delivery Method MDM - Chest Pain Lab Data 06/09/23 15:29 06/09/23 15:29 Labs: Lab Results 06/09/23 06/09/23 06/09/23 Range/Units 15:29 15:29 15:29 WBC 9.9 (4.5-11.0) X10^3/uL RBC 4.18 L (4.5-5.9) X10^6/uL Hgb 11.3 L (13.5-17.5) g/dL Hct 33.3 L (41-53) % MCV 79.8 L (80-100) fL MCH 27.1 (26-34) PG MCHC 34.0 (30-36) % RDW 16.1 H (11.6-14.8) % Plt Count 246 (150-400) X10^3/uL Neut % (Auto) 68.9 (50-75) % Lymph % (Auto) 18.7 L (25-40) % [place] % (Auto) 10.3 (3-14) % Eos % (Auto) 1.5 L (2-4) % Baso % (Auto) 0.6 (0-2) % Neut # (Auto) 6900 (5352-6136) /uL Lymph # (Auto) 1900 (5295-5377) /uL [place] # (Auto) 1000 H (0-900) /uL Eos # (Auto) 200 (0-450) /uL Baso # (Auto) 100 (0-100) /uL PT 12.0 (10.1-12.7) SECONDS INR 1.0 (0.9-1.3) APTT 29 (26-36) SECONDS D-Dimer (<500) ng/ml Sodium 138 (137-145) mmol/L Potassium 3.8 (3.4-5.1) mmol/L Chloride 107 (98-107) mmol/L Carbon Dioxide 25 (22-32) mmol/L BUN 13 (9-20) mg/dL Creatinine 0.66 (0.66-1.25) mg/dL Estimated GFR > 60 (>60) mL/min BUN/Creatinine Ratio 19.7 (6-22) Glucose 86 (80-110) mg/dL Calcium 8.4 (8.4-10.2) mg/dL Magnesium 1.9 (1.6-2.3) mg/dL Total Bilirubin 0.3 (0.2-1.3) mg/dL AST 23 (17-59) IU/L ALT 20 (<50) IU/L Alkaline Phosphatase 76 (38-126) U/L Total Creatine Kinase 28 L (55-170) U/L Troponin I < 0.012 (0.01-0.034) ng/mL Total Protein 6.7 (6.3-8.2) g/dL Albumin 3.7 (3.5-5.0) g/dL Globulin 3.0 (1.7-4.1) g/dL Albumin/Globulin Ratio 1.2 (1.0-2.8) Lipase 115 (23-300) U/L 06/09/23 Range/Units 15:29 WBC (4.5-11.0) X10^3/uL RBC (4.5-5.9) X10^6/uL Hgb (13.5-17.5) g/dL Hct (41-53) % MCV (80-100) fL MCH (26-34) PG MCHC (30-36) % RDW (11.6-14.8) % Plt Count (150-400) X10^3/uL Neut % (Auto) (50-75) % Lymph % (Auto) (25-40) % [place] % (Auto) (3-14) % Eos % (Auto) (2-4) % Baso % (Auto) (0-2) % Neut # (Auto) (0870-2805) /uL Lymph # (Auto) (6617-7278) /uL [place] # (Auto) (0-900) /uL Eos # (Auto) (0-450) /uL Baso # (Auto) (0-100) /uL PT (10.1-12.7) SECONDS INR (0.9-1.3) APTT (26-36) SECONDS D-Dimer 885 H (<500) ng/ml Sodium (137-145) mmol/L Potassium (3.4-5.1) mmol/L Chloride (98-107) mmol/L Carbon Dioxide (22-32) mmol/L BUN (9-20) mg/dL Creatinine (0.66-1.25) mg/dL Estimated GFR (>60) mL/min BUN/Creatinine Ratio (6-22) Glucose (80-110) mg/dL Calcium (8.4-10.2) mg/dL Magnesium (1.6-2.3) mg/dL Total Bilirubin (0.2-1.3) mg/dL AST (17-59) IU/L ALT (<50) IU/L Alkaline Phosphatase (38-126) U/L Total Creatine Kinase (55-170) U/L Troponin I (0.01-0.034) ng/mL Total Protein (6.3-8.2) g/dL Albumin (3.5-5.0) g/dL Globulin (1.7-4.1) g/dL Albumin/Globulin Ratio (1.0-2.8) Lipase (23-300) U/L Urine Dip Bedside Urine Glucose Negative Bedside Urine Bilirubin - Negative Bedside Urine Ketone - Negative Urine Specific [place] 1.020 Bedside Urine Occult Blood - Negative Bedside Urine pH 6.0 Bedside Urine Protein - Negative Bedside Urine Urobilinogen - Negative Bedside Urine Nitrite - Negative Bedside Urine Leukocytes - Negative Esterase MDM Narrative Medical decision making narrative: CC: 77-year-old male with chest and back pain Complicating co-morbidities: Age, chronic back pain, hypertension, kidney stones, peripheral neuropathy, prostate cancer Data collected from: Patient Medical records reviewed: Prior notes reviewed in our EMR Differential considered, but not limited to: Cardiac ischemia versus pulmonary embolism versus pleurisy versus pericarditis versus myocarditis versus pancreatitis versus other Exam documented above, pertinent findings include: Heart rate is regular, lungs are clear, no labored breathing Lab Test results independently reviewed as above. Pertinent findings: No leukocytosis or left shift, no anemia, primary electrolytes, renal function, troponin negative, D-dimer is elevated, above age corrected cutoff Independently reviewed EKG as above Imaging studies independently reviewed: CTA shows no evidence PE or other abnormal finding Treatments: Dilaudid x2 Re-evaluations: Pain well controlled and patient requesting discharge Discussion: Patient with can atypical chest pain that is sharp and stabbing, pleuritic in nature, worse with deep breath and motion over the course of the day. He denies any shortness of breath. He is had no fever chills. Denies any cough or hemoptysis. Cardiac ischemia considered but thought unlikely given history and physical, negative troponin and lack of ischemic change on EKG. Pulmonary embolism considered given pleuritic nature, elevated D-dimer however imaging is reassuring and shows no evidence of PE, dissection or pericardial effusion. Disposition: see below, along with detailed discharge instructions that have been reviewed with patient as well as indications for ED re-evaluation and additional outpatient follow up Discharge Plan Departure Patient Disposition: Home Clinical Impression: Atypical chest pain, Chronic back pain Instructions: DI for Atypical Chest Pain Activity Restrictions/Additional Instructions: *You have been diagnosed with [atypical chest pain. As we discussed your history and physical exam are reassuring and there is no evidence of heart attack, blood clot or other significant diagnosis that requires a specific or immediate intervention] *What to do: *Please continue to take your regular medications as directed. [ ] New medication prescriptions sent to your pharmacy: [ ] [ ] New medication written as a paper prescription [ ] No new medications given *Please follow up with your primary care provider in 2-3 days, call for an appointment. Let them know you were seen in the Emergency Department and that we ask that you be seen in follow up. We will electronically transmit a record of today's note if your PCP is in our system *If you do not have a primary care provider please contact the [facility] Resource line at [phone]. They will ask some questions about your medical history and help get you set up with a doctor in the community. *Return to Emergency Department if you should have any new, worsening or concerning symptoms, such as [fever greater than 101 F, shaking chills, worsening pain, persistent vomiting or other bothersome symptoms] Prescriptions: No Action fluoxetine 10 mg capsule See Rx Instructions .ROUTE .COMPLEX Qty: 90 3RF Dose Instruction: take 1 capsule by mouth once daily WITH 20MG CAP DAILY TOTAL 30 MG DAILY Rx Instructions: take 1 capsule by mouth once daily WITH 20MG CAP DAILY TOTAL 30 MG DAILY fluoxetine 20 mg capsule 20 mg PO DAILY Qty: 90 3RF Rx Instructions: Take with 10 mg to complete 30 mg dose albuterol sulfate 2.5 mg /3 mL (0.083 %) solution for nebulization 2.5 mg Continuous Nebulization Q6HP PRN (Reason: shortness of breath or wheezing) Qty: 360 2RF albuterol sulfate 90 mcg/actuation HFA aerosol inhaler 1 inh INHALATION Q4-6H PRN (Reason: shortness of breath) Qty: 18 4RF omeprazole 40 mg capsule,delayed release(DR/EC) 40 mg PO DAILY Qty: 90 3RF Rx Instructions: take 1 capsule by mouth once daily lidocaine 5 % adhesive patch,medicated 2 patch topical DAILY Qty: 30 1RF Rx Instructions: leave on most painful area for up to 12 hrs metoprolol succinate 100 mg tablet extended release 24 hr 100 mg PO DAILY Qty: 90 1RF oxycodone 10 mg tablet 10 mg PO QID PRN (Reason: pain) Qty: 120 0RF Rx Instructions: to get you through until PCP is back from vacation. Do not take more than recommended. hydromorphone 2 mg tablet 2 mg PO BEDTIME PRN (Reason: pain) Qty: 30 0RF ketoconazole 2 % cream 1 applic topical BID Qty: 30 1RF nitroglycerin 0.4 mg tablet, sublingual 0.4 mg sublingual Q5M PRN (Reason: chest pain) Qty: 20 1RF Rx Instructions: do not exceed 3 doses per episode potassium chloride 20 mEq tablet extended release 20 meq PO BID Qty: 10 0RF Disabled Parking Permit 1 1 % SEEINSTR Rx Instructions: Valid for 5 years sulfasalazine 500 mg tablet 1,000 mg PO BID amlodipine 5 mg tablet 5 mg PO BEDTIME Patient Comments: pt received dose in hospital 11/10/19 early AM admit to AC valacyclovir 1 gram tablet 1,000 mg PO Q8H PRN (Reason: Breakout) hydrochlorothiazide 25 mg tablet 12.5 mg PO QAM losartan 100 mg tablet 100 mg PO DAILY ibuprofen 400 mg Tablet 400 mg PO Q4HR PRN (Reason: Pain, Mild (1-3)) Qty: 60 0RF ipratropium-albuterol 0.5 mg-3 mg(2.5 mg base)/3 mL solution for nebulization 3 ml inhalation Q6H PRN (Reason: shortness of breath or wheezing) Qty: 90 0RF Referrals: Edilberto Snell, [Primary Care Provider] - Stand Alone Forms: Patient Portal/API
--- NOTE | 2023-06-09 15:20 | PC.NURSE ---
Three nurses attempted IV starts in multiple locations with and without ultrasound with no success. Fourth RN attempting US now.
[2023-06-09 15:34] LABS: Add Manual Diff / Slide Review NO; Basophils Absolute Auto 100 /uL (0-100); Basophils Percent Auto 0.6 % (0-2); Eosinophils Absolute Auto 200 /uL (0-450); Eosinophils Percent Auto 1.5 % (2-4); Hematocrit 33.3 % (41-53); Hemoglobin 11.3 g/dL (13.5-17.5); Lymphocytes Absolute Auto 1900 /uL (1100-4500); Lymphocytes Percent Auto 18.7 % (25-40); Mean Corpuscular Hemoglobin 27.1 PG (26-34); Mean Corpuscular Volume 79.8 fL (80-100); Monocytes Absolute Auto 1000 /uL (0-900); Monocytes Percent Auto 10.3 % (3-14); Neutrophils Absolute Auto 6900 /uL (1500-7000); Neutrophils Percent Auto 68.9 % (50-75); Platelet Count 246 X10^3/uL (150-400); Red Blood Cell Count 4.18 X10^6/uL (4.5-5.9); Red Cell Distribution Width 16.1 % (11.6-14.8); White Blood Cell Count 9.9 X10^3/uL (4.5-11.0)
[2023-06-09 15:40] LABS: PTT Partial Thromboplastin Tim 29 SECONDS (26-36)
[2023-06-09 15:44] LABS: Alanine Aminotransferase 20 IU/L (<50); Albumin 3.7 g/dL (3.5-5.0); Albumin Globulin Ratio 1.2 (1.0-2.8); Alkaline Phosphatase 76 U/L (38-126); Aspartate Aminotransferase 23 IU/L (17-59); BUN Creatinine Ratio 19.7 (6-22); Bilirubin Total 0.3 mg/dL (0.2-1.3); Blood Urea Nitrogen 13 mg/dL (9-20); Calcium 8.4 mg/dL (8.4-10.2); Carbon Dioxide 25 mmol/L (22-32); Chloride 107 mmol/L (98-107); Creatine Kinase 28 U/L (55-170); Estimated Glomerular Filt Rate > 60 mL/min (>60); Glucose 86 mg/dL (80-110); HEMOLYSIS < 15 (0-50); Lipase 115 U/L (23-300); Magnesium 1.9 mg/dL (1.6-2.3); Potassium 3.8 mmol/L (3.4-5.1); Sodium 138 mmol/L (137-145); Total Protein 6.7 g/dL (6.3-8.2)
[2023-06-09 15:55] LABS: Troponin I < 0.012 ng/mL (0.01-0.034)
[2023-06-09 16:00] LABS: D Dimer 885 ng/ml (<500)
--- NOTE | 2023-06-09 16:10 | DI.CT.S_ITS ---
PROCEDURE: CT ANGIO CHEST PE PROTOCOL INDICATIONS: chest/back pain, elevated Dimer TECHNIQUE: After the administration of intravenous contrast, 2 mm thick sections acquired from the pulmonary apices to the posterior costophrenic angles. 3-dimensional maximum intensity projection (MIP) coronal and sagittal reformats were then acquired through the thorax. For radiation dose reduction, the following was used: automated exposure control, adjustment of mA and/or kV according to patient size. COMPARISON: [facility], CT, CT ANGIO CHEST PE PROTOCOL, 03/06/2023, 12:28. [facility], CR, XR CHEST 1V, 06/09/2023, 13:53. FINDINGS: Image quality: There is artifact associated with the metallic hardware. Pulmonary arteries: Pulmonary arteries are normal in size, and demonstrate no intraluminal filling defects to suggest central pulmonary embolism. Lungs and pleura: Lungs are clear. No pleural effusions or pneumothorax. Central and peripheral airways are patent. Bilateral shoulder arthroplasty hardware is seen. Mediastinum: Heart size is normal, without pericardial effusion. No mediastinal or hilar adenopathy. Calcified mediastinal lymph nodes are seen. Thoracic aorta is normal in caliber and enhancement. Esophagus is normal in caliber, without hiatal hernia. Bones and chest wall: No suspicious bony lesions. Ribs and thoracic spine appear intact throughout. Lumbar spine fixation hardware is partially seen. Thyroid gland demonstrates no significant abnormality. No axillary or supraclavicular adenopathy. Abdomen: Calcified granulomas can be seen within the spleen. Cholecystectomy clips are seen. The visualized portions of the upper abdominal structures are otherwise unremarkable for imaging technique. IMPRESSION: Negative for pulmonary embolism. Clear lungs. Additional findings: Bilateral shoulder arthroplasty hardware Lumbar spine fixation hardware Prior granulomatous exposure. Dictated by: Gregg Vásquez M.D. on 06/09/2023 at 16:10 Approved by: Gregg Vásquez M.D. on 06/09/2023 at 16:13
[2023-06-09] MEDS: HYDROMORPHONE 1 MG INJ IV ×2 (16:17→17:34)
[2023-06-09] MEDS: KETOROLAC 30 MG/ML VIAL 15 MG IV (17:34)
== END 2023-06-09 18:34 | disposition home or self-care (01) ==
PROVIDERS: Emergency Provider Emergency Medicine; PCP Family Medicine
DX: R07.89 Other chest pain (principal); M54.9 Dorsalgia, unspecified
CPT/HCPCS: 36415; 71045; 71275; 80053; 81003; 82550; 83690; 83735; 84484; 85025; 85379; 85610; 85730; 93005; 96374; 96375; 96376; 99284; J1170; J1885; Q9967

== ENCOUNTER 2023-06-10 15:59 | Emergency (ER) | payer MEDICARE, OTHER, SELFPAY ==
[2022-11-15 12:10] VITALS: BMI 30.8
[2023-06-10 16:22] VITALS: BP 161/76; PULSE 84; RESP 17; TEMP 36.8; O2SAT 98; BMI 29.6
--- NOTE | 2023-06-10 17:58 | PC.NURSE ---
Pt c/o severe pain with acute spasms of lumbar back r/t chronic pain, hx 9 back surgeries. Reports intermittent numbness of R foot with severe spasms. States he has been doubling his home oxycodone and PO Dilaudid, and he has run out with no refills available for another 4 days
--- NOTE | 2023-06-10 18:24 | ED_ITS ---
HPI - Back Pain/Injury General Chief Complaint: Back Pain/Injury Stated Complaint: back pain Time Seen by Provider: 06/10/23 18:06 Source: patient History of Present Illness HPI Narrative: 77-year-old gentleman with multiple chronic medical problems including chronic back pain post 9 surgeries on active pain management with 10 mg of oxycodone 4 times a day and 2 mg of hydrocodone at night to sleep managed by Dr. Snell, hypertension, PTSD, coronary artery disease, prostate cancer presents for the 2nd time and 48 hours complaining of severe back pain. He is out of his oxycodone and does not have a refill for approximately 4 days. He is confused and in obvious narcotic withdrawal at this time he is not sure of the time or date did not realize it was Saturday and he could have called Dr. Snell when asked why he did not: Saturday when he knew he was going to run out of medications, again he was simply confused. We discussed the inappropriate nature of return ER visits for chronic pain management. Because of his chronic medical issues, acute opioid withdrawal is, in fact, going to be a life- threatening issue for him so will help him with his acute issue this evening so he can get some sleep, give him a single dose of oxycodone for the morning and will make sure that he realizes he needs to talk to Dr. Snell for medication refill. He he describes his usual severe burning back pain with burning peripheral neuropathy. His is now available for interview. He does have an appointment with Dr. Snell tomorrow at 3:00 p.m. and was supposed to schedule follow-up with the neurosurgeon at [facility] for nerve conduction studies as he reports that his pain has been getting worse over the last number of months. Most recent imaging studies were an MRI done in March of this year that shows his fusion chronic changes and no acute findings. Related Data Home Medications Medication Instructions Recorded Confirmed Disabled Parking Permit 1 % SEEINSTR 11/08/20 04/26/23 sulfasalazine 500 mg tablet 1,000 mg PO BID 11/10/20 04/26/23 amlodipine 5 mg tablet 5 mg PO BEDTIME 11/08/22 04/26/23 valacyclovir 1 gram tablet 1,000 mg PO Q8H PRN Breakout 11/08/22 04/26/23 hydrochlorothiazide 25 mg tablet 12.5 mg PO QAM 02/02/23 07/14/23 losartan 100 mg tablet 100 mg PO DAILY 11/15/22 04/26/23 Previous Rx's Medication Instructions Recorded fluoxetine 10 mg capsule See Rx Instructions .Route 08/14/22 .COMPLEX #90 caps fluoxetine 20 mg capsule 20 mg PO DAILY #90 caps 08/14/22 albuterol sulfate 2.5 mg/3 mL 2.5 mg (3 mL) continuous 10/24/22 (0.083 %) solution for nebulization nebulization Q6HP PRN shortness of breath or wheezing #360 mL ibuprofen 400 mg tablet 400 mg PO Q4HR PRN Pain, Mild 11/16/22 (1-3) #60 tabs albuterol sulfate 90 mcg/actuation 1 inh inhalation Q4-6H PRN 12/27/22 aerosol inhaler shortness of breath #18 grams omeprazole 40 mg capsule,delayed 40 mg PO DAILY #90 caps 01/01/23 release lidocaine 5 % topical patch 2 patch topical DAILY #30 ea 01/08/23 metoprolol succinate 100 mg 100 mg PO DAILY #90 tabs 01/24/23 tablet,extended release 24 hr ketoconazole 2 % topical cream 1 applic topical BID #30 grams 02/08/23 potassium chloride 20 mEq 20 meq PO BID #10 tabs 02/26/23 tablet,extended release ipratropium 0.5 mg-albuterol 3 mg 3 ml inhalation Q6H PRN shortness 03/19/23 (2.5 mg base)/3 mL nebulization of breath or wheezing #90 mL soln nitroglycerin 0.4 mg sublingual 0.4 mg sublingual Q5M PRN chest 03/28/23 tablet pain #20 tabs oxycodone 10 mg tablet 10 mg PO QID PRN pain #120 tabs 05/27/23 hydromorphone 2 mg tablet 2 mg PO BEDTIME PRN pain #30 tabs 06/03/23 Allergies Allergy/AdvReac Type Severity Reaction Status Date / Time cyclobenzaprine Allergy Severe Dizziness, Verified 06/10/23 16:22 [From Flexeril] I bounce off ag acetaminophen [ACETAMINOPHEN] AdvReac Unknown Can't take Verified 06/10/23 16:22 r/t Hep C; upset stomach Review of Systems Review of Systems Narrative: Pertinent positive and negative findings as per HPI Patient History Medical History Abdominal wall pain in both lower quadrants Acute exacerbation of chronic bronchitis Adhesive capsulitis Aftercare following left shoulder joint replacement surgery Anemia Anxiety Arthritis (Unknown) Chronic ankle pain, bilateral Chronic pain syndrome (Unknown) Colles' fracture Constipation Depression (Unknown) Dyspepsia Eustachian tube dysfunction Fibromyalgia Foraminal stenosis of lumbar region Hepatitis C (Unknown) Hypertension (Unknown) Impotence (Unknown) Kidney stones (Unknown) Left lateral epicondylitis Left shoulder strain Migraines (Unknown) Oral lesion Peripheral neuropathy Pneumonia (~2018) Preoperative clearance Prostate cancer (Unknown) PTSD (post-traumatic stress disorder) (Unknown) Restless leg syndrome (Unknown) Rheumatoid arthritis Right wrist pain Right wrist sprain Seasonal allergic rhinitis Sinus drainage Skin cancer (Unknown) Tinea Surgical History History of ankle surgery History of back surgery History of carpal tunnel repair History of lumbar fusion History of lumbar fusion (05/10/22) History of prosthetic unicompartmental arthroplasty of right knee History of tonsillectomy History of total replacement of right shoulder joint Hx of foot surgery Hx of laminectomy (10/2012) S/P lumbar fusion Status post cholecystectomy Status post knee surgery Family History Father Heart disease Mother No problems noted. Social History marital status: household members: spouse lives independently: Yes occupational status: previously employed Smoking Status: Former smoker Tobacco: How many years used: 20 quit status: has quit before alcohol intake: former substance use type: former substance user and marijuana Smoking Status: Former smoker tobacco type: cigarettes alcohol intake frequency: 0-2 drinks per day Substance Use Type: does not use, former substance user and IV drugs Exam Initial Vital Signs Initial Vital Signs: Vital Signs Temperature 98.3 F 06/10/23 16:22 Pulse Rate 84 06/10/23 16:22 Respiratory Rate 17 06/10/23 16:22 Blood Pressure 161/76 H 06/10/23 16:22 Pulse Oximetry 98 06/10/23 16:22 Oxygen Delivery Method Room Air 06/10/23 16:22 General: Alert, pale diaphoretic, irritable, in obvious pain and mild opioid withdrawal Respiratory: Able to speak in full sentences, no obvious respiratory distress Skin: No obvious rashes, warm and dry Neurologic: Able to move all extremities, peripheral neuropathy with decreased sensation in both feet up to mid calf. No point tenderness along his lumbar spine and no obvious redness, fullness or fluctuation to suggest infection or abscess Psych: Confused and mildly agitated Course Vital Signs Vital signs: Vital Signs - 8 hr 06/10/23 16:22 Temperature 98.3 F Pulse Rate 84 Respiratory Rate 17 Blood Pressure 161/76 H Pulse Oximetry 98 Oxygen Delivery Method Room Air MDM - Back Pain/Injury MDM Narrative Medical decision making narrative: CC: Acute exacerbation of his chronic back pain with acute opioid withdrawal Complicating co-morbidities: Significant, please see HPI Data collected from: patient, His is now available for interview. He does have an appointment with Dr. Snell tomorrow at 3:00 p.m. and was supposed to schedule follow-up with the neurosurgeon at [facility] for nerve conduction studies as he reports that his pain has been getting worse over the last number of months. Most recent imaging studies were an MRI done in March of this year that shows his fusion chronic changes and no acute findings. Social determinants of health that may influence the patients condition: Access to care, severity of pain Medical records reviewed: Recent imaging studies, ER note from yesterday, family practice note from May 30 and April 26 reviewed Differential considered: Acute exacerbation of chronic back pain, opioid withdrawal, do not suspect epidural abscess, new trauma, metastatic lesions Exam documented above, pertinent findings include: Confusion, mild diaphoresis and radicular back pain Treatments: IM Toradol and Im Dilaudid Re-evaluations: After the Dilaudid patient is re-evaluated. His color and psychiatric tender are back to normal. He is much more alert and appropriate. Discussion: 77-year-old gentleman with chronic back pain multiple back surgeries, opioid dependent with recent flare of his pain with worsening radiculopathy symptoms. Out of oxycodone with PCP appointment tomorrow. Pain is addressed tonight and he is given a dose of oxycodone for the morning along with significant discussion with both he and his on the inappropriate use of the emergency department for chronic pain management. Both of them recognize this and will do their best to avoid using the ER in that manner in the future. Discharge Plan Departure Patient Disposition: Home Clinical Impression: Chronic back pain Qualifiers: Back pain location: low back pain Back pain laterality: bilateral Sciatica presence: with sciatica Sciatica laterality: bilateral sciatica Qualified Code(s): M54.42 - Lumbago with sciatica, left side Opioid dependence Qualifiers: Substance use status: uncomplicated Qualified Code(s): F11.20 - Opioid dependence, uncomplicated Activity Restrictions/Additional Instructions: I am sorry that you are suffering so much with this acute back pain exacerbation There does not appear to be new findings, this does look like it is all related to your chronic issues. You are given 3 mg of IM Dilaudid to help with the mild narcotic withdrawal symptoms as well as the severe pain. You have a dose of oxycodone to use in the morning and you need to keep your appointment at 3:00 p.m. tomorrow afternoon with Dr. Snell. Please discuss with Dr. Snell a plan for dealing with acute pain exacerbations so that you do not need to come to the emergency department or experience such severe exacerbations. Your most recent MRI was in March of this year and showed no significant new findings that time. Please keep all of your outpatient followups. I wish you the best Prescriptions: No Action fluoxetine 10 mg capsule See Rx Instructions .ROUTE .COMPLEX Qty: 90 3RF Dose Instruction: take 1 capsule by mouth once daily WITH 20MG CAP DAILY TOTAL 30 MG DAILY Rx Instructions: take 1 capsule by mouth once daily WITH 20MG CAP DAILY TOTAL 30 MG DAILY fluoxetine 20 mg capsule 20 mg PO DAILY Qty: 90 3RF Rx Instructions: Take with 10 mg to complete 30 mg dose albuterol sulfate 2.5 mg /3 mL (0.083 %) solution for nebulization 2.5 mg Continuous Nebulization Q6HP PRN (Reason: shortness of breath or wheezing) Qty: 360 2RF albuterol sulfate 90 mcg/actuation HFA aerosol inhaler 1 inh INHALATION Q4-6H PRN (Reason: shortness of breath) Qty: 18 4RF omeprazole 40 mg capsule,delayed release(DR/EC) 40 mg PO DAILY Qty: 90 3RF Rx Instructions: take 1 capsule by mouth once daily lidocaine 5 % adhesive patch,medicated 2 patch topical DAILY Qty: 30 1RF Rx Instructions: leave on most painful area for up to 12 hrs metoprolol succinate 100 mg tablet extended release 24 hr 100 mg PO DAILY Qty: 90 1RF oxycodone 10 mg tablet 10 mg PO QID PRN (Reason: pain) Qty: 120 0RF Rx Instructions: to get you through until PCP is back from vacation. Do not take more than recommended. hydromorphone 2 mg tablet 2 mg PO BEDTIME PRN (Reason: pain) Qty: 30 0RF ketoconazole 2 % cream 1 applic topical BID Qty: 30 1RF nitroglycerin 0.4 mg tablet, sublingual 0.4 mg sublingual Q5M PRN (Reason: chest pain) Qty: 20 1RF Rx Instructions: do not exceed 3 doses per episode potassium chloride 20 mEq tablet extended release 20 meq PO BID Qty: 10 0RF Disabled Parking Permit 1 1 % SEEINSTR Rx Instructions: Valid for 5 years sulfasalazine 500 mg tablet 1,000 mg PO BID amlodipine 5 mg tablet 5 mg PO BEDTIME Patient Comments: pt received dose in hospital 11/10/19 early AM admit to AC valacyclovir 1 gram tablet 1,000 mg PO Q8H PRN (Reason: Breakout) hydrochlorothiazide 25 mg tablet 12.5 mg PO QAM losartan 100 mg tablet 100 mg PO DAILY ibuprofen 400 mg Tablet 400 mg PO Q4HR PRN (Reason: Pain, Mild (1-3)) Qty: 60 0RF ipratropium-albuterol 0.5 mg-3 mg(2.5 mg base)/3 mL solution for nebulization 3 ml inhalation Q6H PRN (Reason: shortness of breath or wheezing) Qty: 90 0RF Referrals: Edilberto Snell DO [Primary Care Provider] - Stand Alone Forms: Patient Portal/API
[2023-06-10] MEDS: HYDROMORPHONE 1 MG INJ 3 MG IM (18:51)
[2023-06-10] MEDS: KETOROLAC 30 MG/ML VIAL IM (18:52)
[2023-06-10] MEDS: OXYCODONE IR 5 MG TABLET 10 MG PO (18:55)
[2023-06-10 18:59] VITALS: BP 181/91; PULSE 76; RESP 16; O2SAT 98
[2023-06-10 19:25] VITALS: BP 144/72; PULSE 66; RESP 16; O2SAT 96
== END 2023-06-10 19:25 | disposition home or self-care (01) ==
PROVIDERS: Emergency Provider Emergency Medicine; PCP Family Medicine
DX: M54.42 Lumbago with sciatica, left side (principal); F11.20 Opioid dependence, uncomplicated
CPT/HCPCS: 96372; 99283; J1170; J1885

== ENCOUNTER → 2023-06-28 08:13 | Outpatient (CLI) | payer MEDICARE, OTHER, SELFPAY ==
[2022-11-15 12:10] VITALS: BMI 30.8
--- NOTE | 2023-06-28 08:15 | DI.RAD.S_ITS ---
PROCEDURE: XR WRIST RT MIN 3V INDICATIONS: Wrist pain TECHNIQUE: 4 views of the wrist were acquired. COMPARISON: [facility], CR, XR WRIST RT MIN 3V, 03/08/2022, 16:16. FINDINGS: Bones: No acute abnormality. Degenerative changes with joint space narrowing, subchondral sclerosis, and osteophytes of the thumb IP joint, thumb metacarpophalangeal joint, thumb carpometacarpal joint, the triscaphe joint, and the radiocarpal joint. Remote radial styloid fracture. The scapholunate interval is widened with intervening calcifications. Soft tissues: No suspicious soft tissue calcifications. IMPRESSION: 1. Degenerative changes as detailed above consistent with osteoarthritis. 2. Widening of the scapholunate consistent with ligamentous injury Dictated by: Bradley Cox M.D. on 06/28/2023 at 10:05 Approved by: Bradley Cox M.D. on 06/28/2023 at 10:08
== END ==
PROVIDERS: PCP Family Medicine; Referring Provider Nurse Practitioner Family; Visit Provider Nurse Practitioner Family
DX: S69.91XA Unspecified injury of right wrist, hand and finger(s), initial encounter (principal)
CPT/HCPCS: 73110

== ENCOUNTER 2023-06-28 14:43 | Emergency (ER) | payer MEDICARE, OTHER, SELFPAY ==
[2022-11-15 12:10] VITALS: BMI 30.8
[2023-06-28 15:05] VITALS: BP 178/85; PULSE 82; RESP 18; TEMP 37.3; O2SAT 99; BMI 29.7
--- NOTE | 2023-06-28 17:15 | ED.GENADULT ---
HPI - General Adult General Chief complaint: Extremity Injury, Upper Stated complaint: RT WRIST INJURY Time Seen by Provider: 06/28/23 16:19 Source: patient Mode of arrival: Ambulatory Limitations: no limitations History of Present Illness HPI narrative: 77-year-old male who had a mechanical fall approximately 1 week ago where he landed on his right wrist. Has had pain in his wrist since then. Went to the walk-in clinic today. Had an x-ray performed. Was told that there was no fractures. Was placed in a removable splint. Because he was in such extreme pain he was sent to the emergency department for pain control. He is on chronic pain medication. Related Data Home Medications Medication Instructions Recorded Confirmed Disabled Parking Permit 1 % SEEINSTR 11/08/20 06/11/23 sulfasalazine 500 mg tablet 1,000 mg PO BID 11/10/20 06/11/23 amlodipine 5 mg tablet 5 mg PO BEDTIME 11/08/22 06/11/23 valacyclovir 1 gram tablet 1,000 mg PO Q8H PRN Breakout 11/08/22 06/11/23 hydrochlorothiazide 25 mg tablet 12.5 mg PO QAM 11/15/22 06/11/23 losartan 100 mg tablet 100 mg PO DAILY 11/15/22 06/11/23 Previous Rx's Medication Instructions Recorded fluoxetine 10 mg capsule See Rx Instructions .Route 08/14/22 .COMPLEX #90 caps fluoxetine 20 mg capsule 20 mg PO DAILY #90 caps 08/14/22 albuterol sulfate 2.5 mg/3 mL 2.5 mg (3 mL) continuous 10/24/22 (0.083 %) solution for nebulization nebulization Q6HP PRN shortness of breath or wheezing #360 mL ibuprofen 400 mg tablet 400 mg PO Q4HR PRN Pain, Mild 11/16/22 (1-3) #60 tabs albuterol sulfate 90 mcg/actuation 1 inh inhalation Q4-6H PRN 12/27/22 aerosol inhaler shortness of breath #18 grams omeprazole 40 mg capsule,delayed 40 mg PO DAILY #90 caps 01/01/23 release lidocaine 5 % topical patch 2 patch topical DAILY #30 ea 01/08/23 metoprolol succinate 100 mg 100 mg PO DAILY #90 tabs 01/24/23 tablet,extended release 24 hr ketoconazole 2 % topical cream 1 applic topical BID #30 grams 02/08/23 potassium chloride 20 mEq 20 meq PO BID #10 tabs 02/26/23 tablet,extended release ipratropium 0.5 mg-albuterol 3 mg 3 ml inhalation Q6H PRN shortness 03/19/23 (2.5 mg base)/3 mL nebulization of breath or wheezing #90 mL soln nitroglycerin 0.4 mg sublingual 0.4 mg sublingual Q5M PRN chest 03/28/23 tablet pain #20 tabs hydromorphone 2 mg tablet 2 mg PO BEDTIME PRN pain #30 tabs 06/03/23 oxycodone 10 mg tablet 10 mg PO TID PRN pain #84 tabs 06/11/23 Allergies Allergy/AdvReac Type Severity Reaction Status Date / Time cyclobenzaprine Allergy Severe Dizziness, Verified 06/28/23 15:10 [From Flexeril] I bounce off ag acetaminophen [ACETAMINOPHEN] AdvReac Unknown Can't take Verified 06/28/23 15:10 r/t Hep C; upset stomach Review of Systems Musculoskeletal Musculoskeletal: Reports system reviewed and no additional complaints, except as documented Integumentary/Breasts Skin/Breast: Reports system reviewed and no additional complaints, except as documented Patient History Medical History Abdominal wall pain in both lower quadrants Acute exacerbation of chronic bronchitis Adhesive capsulitis Aftercare following left shoulder joint replacement surgery Anemia Anxiety Arthritis (Unknown) Chronic ankle pain, bilateral Chronic pain syndrome (Unknown) Colles' fracture Constipation Depression (Unknown) Dyspepsia Eustachian tube dysfunction Fibromyalgia Foraminal stenosis of lumbar region Hepatitis C (Unknown) Hypertension (Unknown) Impotence (Unknown) Kidney stones (Unknown) Left lateral epicondylitis Left shoulder strain Migraines (Unknown) Oral lesion Peripheral neuropathy Pneumonia (~2018) Preoperative clearance Prostate cancer (Unknown) PTSD (post-traumatic stress disorder) (Unknown) Restless leg syndrome (Unknown) Rheumatoid arthritis Right wrist pain Right wrist sprain Seasonal allergic rhinitis Sinus drainage Skin cancer (Unknown) Tinea Surgical History History of ankle surgery History of back surgery History of carpal tunnel repair History of lumbar fusion History of lumbar fusion (05/10/22) History of prosthetic unicompartmental arthroplasty of right knee History of tonsillectomy History of total replacement of right shoulder joint Hx of foot surgery Hx of laminectomy (10/2012) S/P lumbar fusion Status post cholecystectomy Status post knee surgery Family History Father Heart disease Mother No problems noted. Social History marital status: household members: spouse lives independently: Yes occupational status: previously employed Smoking Status: Former smoker Tobacco: How many years used: 20 quit status: has quit before alcohol intake: former substance use type: former substance user and marijuana Smoking Status: Former smoker tobacco type: cigarettes alcohol intake frequency: 0-2 drinks per day Substance Use Type: does not use, former substance user and IV drugs Exam Initial Vital Signs Initial Vital Signs: Vital Signs Temperature 99.2 F 06/28/23 15:05 Pulse Rate 82 06/28/23 15:05 Respiratory Rate 18 06/28/23 15:05 Blood Pressure 178/85 H 06/28/23 15:05 Pulse Oximetry 99 06/28/23 15:05 Oxygen Delivery Method Room Air 06/28/23 15:05 Extrem Other: Removable splint right wrist Course Orders Ordered: Discontinued Medications Hydromorphone HCl (Hydromorphone 1 Mg Inj) 1 mg IM NOW ONE Stop: 06/28/23 17:17 Vital Signs Vital signs: Vital Signs - 8 hr 06/28/23 15:05 Temperature 99.2 F Pulse Rate 82 Respiratory Rate 18 Blood Pressure 178/85 H Pulse Oximetry 99 Oxygen Delivery Method Room Air Medical Decision Making MDM Narrative Medical decision making narrative: Patient has had a negative x-ray. He is splinted. He stated that the walk-in clinic made a referral for him to see orthopedic surgery. He is on chronic medications. Advised that he would get 1 dose of pain medication here in the emergency department but then he would need to follow-up with his primary doctor intake his medications as directed. Discharge Plan Departure Patient Disposition: Home Clinical Impression: Right wrist sprain Instructions: DI for Wrist Sprain Activity Restrictions/Additional Instructions: Continue to take all of your medications as directed. You will need to talk with your primary doctor to discuss further evaluation. I also recommend that you follow-up with a referral that the walk-in clinic placed for you as you may need to see orthopedic surgery to discuss potential further imaging if needed. Prescriptions: No Action fluoxetine 10 mg capsule See Rx Instructions .ROUTE .COMPLEX Qty: 90 3RF Dose Instruction: take 1 capsule by mouth once daily WITH 20MG CAP DAILY TOTAL 30 MG DAILY Rx Instructions: take 1 capsule by mouth once daily WITH 20MG CAP DAILY TOTAL 30 MG DAILY fluoxetine 20 mg capsule 20 mg PO DAILY Qty: 90 3RF Rx Instructions: Take with 10 mg to complete 30 mg dose albuterol sulfate 2.5 mg /3 mL (0.083 %) solution for nebulization 2.5 mg Continuous Nebulization Q6HP PRN (Reason: shortness of breath or wheezing) Qty: 360 2RF albuterol sulfate 90 mcg/actuation HFA aerosol inhaler 1 inh INHALATION Q4-6H PRN (Reason: shortness of breath) Qty: 18 4RF omeprazole 40 mg capsule,delayed release(DR/EC) 40 mg PO DAILY Qty: 90 3RF Rx Instructions: take 1 capsule by mouth once daily lidocaine 5 % adhesive patch,medicated 2 patch topical DAILY Qty: 30 1RF Rx Instructions: leave on most painful area for up to 12 hrs metoprolol succinate 100 mg tablet extended release 24 hr 100 mg PO DAILY Qty: 90 1RF hydromorphone 2 mg tablet 2 mg PO BEDTIME PRN (Reason: pain) Qty: 30 0RF oxycodone 10 mg tablet 10 mg PO TID PRN (Reason: pain) Qty: 84 0RF Rx Instructions: Must last 28 days from date of prescription ketoconazole 2 % cream 1 applic topical BID Qty: 30 1RF nitroglycerin 0.4 mg tablet, sublingual 0.4 mg sublingual Q5M PRN (Reason: chest pain) Qty: 20 1RF Rx Instructions: do not exceed 3 doses per episode potassium chloride 20 mEq tablet extended release 20 meq PO BID Qty: 10 0RF Disabled Parking Permit 1 1 % SEEINSTR Rx Instructions: Valid for 5 years sulfasalazine 500 mg tablet 1,000 mg PO BID amlodipine 5 mg tablet 5 mg PO BEDTIME Patient Comments: pt received dose in hospital 11/10/19 early AM admit to valacyclovir 1 gram tablet 1,000 mg PO Q8H PRN (Reason: Breakout) hydrochlorothiazide 25 mg tablet 12.5 mg PO QAM losartan 100 mg tablet 100 mg PO DAILY ibuprofen 400 mg Tablet 400 mg PO Q4HR PRN (Reason: Pain, Mild (1-3)) Qty: 60 0RF ipratropium-albuterol 0.5 mg-3 mg(2.5 mg base)/3 mL solution for nebulization 3 ml inhalation Q6H PRN (Reason: shortness of breath or wheezing) Qty: 90 0RF Referrals: Edilberto Snell, [Primary Care Provider] - Stand Alone Forms: Patient Portal/API
[2023-06-28] MEDS: HYDROMORPHONE 1 MG INJ IM (17:28)
[2023-06-28 17:33] VITALS: BP 134/70; PULSE 74; O2SAT 97
== END 2023-06-28 17:34 | disposition home or self-care (01) ==
PROVIDERS: Emergency Provider Emergency Medicine; PCP Family Medicine
DX: S63.501A Unspecified sprain of right wrist, initial encounter (principal); S69.91XA Unspecified injury of right wrist, hand and finger(s), initial encounter; W19.XXXA Unspecified fall, initial encounter
CPT/HCPCS: 73110; 96372; 99283; J1170

== ENCOUNTER → 2023-07-10 13:34 | Outpatient (CLI) | payer MEDICARE, OTHER, SELFPAY ==
[2022-11-15 12:10] VITALS: BMI 30.8
--- NOTE | 2023-07-10 13:36 | DI.RAD.S_ITS ---
PROCEDURE: XR WRIST LT MIN 3V INDICATIONS: Left wrist pain TECHNIQUE: 3 views of the wrist were acquired. COMPARISON: [facility], CR, XR WRIST RT MIN 3V, 06/28/2023, 8:19. FINDINGS: Bones: No acute fractures, dislocation, or pathologic subluxation. There are several scattered subcortical cystic changes in proximal and distal carpal row. Joint space loss and hypertrophic spurring at the 1st metacarpal phalangeal joint. No suspicious bone lesions. Soft tissues: No suspicious soft tissue calcifications. IMPRESSION: 1. 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 2. Focal prominent osteoarthritic change at the 1st MCP joint. Dictated by: Gabriella Mccormick M.D. on 07/10/2023 at 15:14 Approved by: Gabriella Mccormick M.D. on 07/10/2023 at 15:16
== END ==
PROVIDERS: PCP Family Medicine; Referring Provider Nurse Practitioner Family; Visit Provider Nurse Practitioner Family
DX: M25.532 Pain in left wrist (principal)
CPT/HCPCS: 73110

== ENCOUNTER 2023-07-10 13:48 | Emergency (ER) | payer MEDICARE, OTHER, SELFPAY ==
[2022-11-15 12:10] VITALS: BMI 30.8
[2023-07-10 13:57] VITALS: BP 163/81; PULSE 82; RESP 16; TEMP 36.6; O2SAT 99; BMI 29.7
[2023-07-10 14:36] VITALS: PULSE 86; RESP 28; O2SAT 98
[2023-07-10] MEDS: SODIUM CHLORIDE 0.9% 1,000 ML 1000 ML IV (14:44)
[2023-07-10 14:45] VITALS: BP 171/81; PULSE 81; RESP 25; O2SAT 99
--- NOTE | 2023-07-10 14:45 | ED.GENADULT ---
HPI - General Adult General Chief complaint: Weakness Stated complaint: both wrist hurt Time Seen by Provider: 07/10/23 14:34 Source: patient Mode of arrival: Wheelchair History of Present Illness HPI narrative: Patient here with complains of bilateral multiple joint pain neck pain. No recent illness other diarrhea. No fever chills. Patient seen recently for wrist injury secondary to a fall. Now both wrists hurt. Patient does have history of rheumatoid arthritis but usually resolves within 3 days. This set of symptoms started this past Saturday, 5 days ago. Denies any chest pain abdominal pain. Has neck pain ankle pain knee pain. Patient unsure if he fell Saturday night. was out of town. He does get up about 4 times at night to go the bathroom. He does not recall falling when he did go the bathroom. However he awoke Saturday morning feeling as if he did fall down. Is not recall waking up on the ground or getting himself up to walk back to the bedroom. He does not have history of sleep walking. No bruising seen on the face or back or arms. Or ankles Related Data Home Medications Medication Instructions Recorded Confirmed Disabled Parking Permit 1 % SEEINSTR 11/08/20 07/01/23 sulfasalazine 500 mg tablet 1,000 mg PO BID 11/10/20 07/01/23 amlodipine 5 mg tablet 5 mg PO BEDTIME 11/08/22 07/01/23 valacyclovir 1 gram tablet 1,000 mg PO Q8H PRN Breakout 11/08/22 07/01/23 hydrochlorothiazide 25 mg tablet 12.5 mg PO QAM 11/15/22 07/01/23 losartan 100 mg tablet 100 mg PO DAILY 11/15/22 07/01/23 Previous Rx's Medication Instructions Recorded fluoxetine 10 mg capsule See Rx Instructions .Route 08/14/22 .COMPLEX #90 caps fluoxetine 20 mg capsule 20 mg PO DAILY #90 caps 08/14/22 albuterol sulfate 2.5 mg/3 mL 2.5 mg (3 mL) continuous 10/24/22 (0.083 %) solution for nebulization nebulization Q6HP PRN shortness of breath or wheezing #360 mL ibuprofen 400 mg tablet 400 mg PO Q4HR PRN Pain, Mild 11/16/22 (1-3) #60 tabs albuterol sulfate 90 mcg/actuation 1 inh inhalation Q4-6H PRN 12/27/22 aerosol inhaler shortness of breath #18 grams omeprazole 40 mg capsule,delayed 40 mg PO DAILY #90 caps 01/01/23 release lidocaine 5 % topical patch 2 patch topical DAILY #30 ea 01/08/23 ketoconazole 2 % topical cream 1 applic topical BID #30 grams 02/08/23 potassium chloride 20 mEq 20 meq PO BID #10 tabs 02/26/23 tablet,extended release ipratropium 0.5 mg-albuterol 3 mg 3 ml inhalation Q6H PRN shortness 03/19/23 (2.5 mg base)/3 mL nebulization of breath or wheezing #90 mL soln nitroglycerin 0.4 mg sublingual 0.4 mg sublingual Q5M PRN chest 03/28/23 tablet pain #20 tabs hydromorphone 2 mg tablet 2 mg PO BEDTIME PRN pain #30 tabs 07/01/23 oxycodone 10 mg tablet 10 mg PO TID PRN pain #84 tabs 07/01/23 metoprolol succinate 100 mg 100 mg PO DAILY #90 tabs 07/11/23 tablet,extended release 24 hr prednisone 10 mg tablet 10 mg PO DAILY #30 tabs 07/13/23 Allergies Allergy/AdvReac Type Severity Reaction Status Date / Time cyclobenzaprine Allergy Severe Dizziness, Verified 07/11/23 18:37 [From Flexeril] I bounce off ag acetaminophen [ACETAMINOPHEN] AdvReac Unknown Can't take Verified 07/11/23 18:37 r/t Hep C; upset stomach Review of Systems Review of Systems Narrative: GENERAL: negative chills, fatigue, malaise, fever, sweats. HEENT: negative sinus pain, ear pain, sore throat RESPIRATORY: negative dyspnea, cough CARDIOVASCULAR: negative chest pain, palpitations GASTROINTESTINAL: negative nausea, vomiting, abdominal pain : negative dysuria, frequency, hematuria MUSCULOSKELETAL: Positive muscle or bony pain SKIN: negative rash, skin lesions NEUROLOGIC: negative weakness, numbness ROS Unobtainable: All systems reviewed & are unremarkable except as noted in HPI and below Patient History Medical History Abdominal wall pain in both lower quadrants Acute exacerbation of chronic bronchitis Adhesive capsulitis Aftercare following left shoulder joint replacement surgery Anemia Anxiety Arthritis (Unknown) Chronic ankle pain, bilateral Chronic pain syndrome (Unknown) Colles' fracture Constipation Depression (Unknown) Dyspepsia Eustachian tube dysfunction Fibromyalgia Foraminal stenosis of lumbar region Hepatitis C (Unknown) Hypertension (Unknown) Impotence (Unknown) Kidney stones (Unknown) Left lateral epicondylitis Left shoulder strain Migraines (Unknown) Oral lesion Peripheral neuropathy Pneumonia (~2018) Preoperative clearance Prostate cancer (Unknown) PTSD (post-traumatic stress disorder) (Unknown) Restless leg syndrome (Unknown) Rheumatoid arthritis Right wrist pain Right wrist sprain Seasonal allergic rhinitis Sinus drainage Skin cancer (Unknown) Tinea Surgical History History of ankle surgery History of back surgery History of carpal tunnel repair History of lumbar fusion History of lumbar fusion (05/10/22) History of prosthetic unicompartmental arthroplasty of right knee History of tonsillectomy History of total replacement of right shoulder joint Hx of foot surgery Hx of laminectomy (10/2012) S/P lumbar fusion Status post cholecystectomy Status post knee surgery Family History Father Heart disease Mother No problems noted. Social History marital status: household members: spouse lives independently: Yes occupational status: previously employed Smoking Status: Former smoker Tobacco: How many years used: 20 quit status: has quit before alcohol intake: former substance use type: former substance user and marijuana Smoking Status: Former smoker tobacco type: cigarettes alcohol intake frequency: 0-2 drinks per day Substance Use Type: does not use and former substance user Exam Narrative Exam Narrative: GENERAL: in no distress, not toxic not dyspneic HEAD: Normocephalic. EYES: Pupils equal round ENT: Mucous membranes moist. NECK: Trachea midline. Able to logroll patient. No midline tenderness or step-off of the cervical thoracic or lumbar spine. No bruising seen on the back. However has pain with any kind of movement in the neck as well as lower back. CARDIOVASCULAR: Regular rate and rhythm RESPIRATORY: Clear to auscultation. Breath sounds equal bilaterally. No wheezes, rales, or rhonchi. GASTROINTESTINAL: Abdomen soft, non-tender EXTREMITIES: No gross deformities. There is diffuse edema at bilateral wrists. Tender to touch bilateral shoulders elbows wrists knees and ankles. Complains of pain of any kind of movement in the bed with these joints. BACK: No flank tenderness. NEURO: AOx4. Clear speech, light touch intact bilateral face and hands. Able to butter grader but has pain in the wrists with butter grader SKIN: Warm and dry PSYCH: Not anxious, is cooperative Initial Vital Signs Initial Vital Signs: Vital Signs Temperature 97.8 F 07/10/23 13:57 Pulse Rate 82 07/10/23 13:57 Respiratory Rate 16 07/10/23 13:57 Blood Pressure 163/81 H 07/10/23 13:57 Pulse Oximetry 99 07/10/23 13:57 Oxygen Delivery Method Room Air 07/10/23 13:57 Course Orders Ordered: Discontinued Medications Sodium Chloride (Normal Saline 0.9%) 1,000 mls @ 1,000 mls/hr IV BOLUS ONE Stop: 07/10/23 15:25 Last Infusion: 07/10/23 15:50 Dose: Infused Documented By: Admin: 07/10/23 14:44 Dose: 1,000 mls/hr Documented By: COLIN Ketorolac Tromethamine (Ketorolac 30 Mg/Ml Vial) 15 mg IV NOW ONE Stop: 07/10/23 14:52 Last Admin: 07/10/23 15:12 Dose: 15 mg Documented By: RAIN Morphine Sulfate (Morphine 4 Mg/Ml Inj) 4 mg IV NOW ONE Stop: 07/10/23 16:37 Last Admin: 07/10/23 16:41 Dose: 4 mg Documented By: COLIN Ondansetron HCl (Ondansetron 4 Mg Odt) 4 mg PO NOW PRN PRN Reason: Nausea And Vomiting Ondansetron HCl (Ondansetron 4 Mg/2 Ml Inj) 4 mg IV NOW PRN PRN Reason: Nausea And Vomiting Oxycodone HCl (Oxycodone Er 10 Mg Tab) 10 mg PO NOW ONE Stop: 07/10/23 17:35 Last Admin: 07/10/23 17:54 Dose: 10 mg Documented By: COLIN Vital Signs Vital signs: Vital Signs - 8 hr 07/10/23 13:57 07/10/23 14:36 07/10/23 14:45 Temperature 97.8 F Pulse Rate 82 86 81 Respiratory Rate 16 28 H 25 H Blood Pressure 163/81 H 171/81 H Pulse Oximetry 99 98 99 Oxygen Delivery Method Room Air Medical Decision Making Lab Data 07/10/23 10:40 07/10/23 10:40 Labs: Lab Results 07/10/23 07/10/23 Range/Units 10:40 14:51 WBC 9.0 (4.5-11.0) X10^3/uL RBC 3.95 L (4.5-5.9) X10^6/uL Hgb 10.5 L (13.5-17.5) g/dL Hct 30.5 L (41-53) % MCV 77.1 L (80-100) fL MCH 26.6 (26-34) PG MCHC 34.6 (30-36) % RDW 15.4 H (11.6-14.8) % Plt Count 406 H (150-400) X10^3/uL Neut % (Auto) 68.6 (50-75) % Lymph % (Auto) 15.4 L (25-40) % Wilkes % (Auto) 12.7 (3-14) % Eos % (Auto) 1.9 L (2-4) % Baso % (Auto) 1.4 (0-2) % Neut # (Auto) 6100 (3286-9624) /uL Lymph # (Auto) 1400 (6409-9451) /uL Wilkes # (Auto) 1100 H (0-900) /uL Eos # (Auto) 200 (0-450) /uL Baso # (Auto) 100 (0-100) /uL PT 14.3 H (10.1-12.7) SECONDS INR 1.2 (0.9-1.3) Sodium 139 (137-145) mmol/L Potassium 3.3 L (3.4-5.1) mmol/L Chloride 102 (98-107) mmol/L Carbon Dioxide 25 (22-32) mmol/L BUN 8 L (9-20) mg/dL Creatinine 0.72 (0.66-1.25) mg/dL Estimated GFR > 60 (>60) mL/min BUN/Creatinine Ratio 11.1 (6-22) Glucose 99 (80-110) mg/dL Lactate 1.6 (0.7-2.1) mmol/L Calcium 9.1 (8.4-10.2) mg/dL Total Bilirubin 0.4 (0.2-1.3) mg/dL AST 25 (17-59) IU/L ALT 15 (<50) IU/L Alkaline Phosphatase 76 (38-126) U/L C-Reactive Protein 2.3 H (<1.0) mg/dL Total Protein 7.5 (6.3-8.2) g/dL Albumin 3.8 (3.5-5.0) g/dL Globulin 3.7 (1.7-4.1) g/dL Albumin/Globulin Ratio 1.0 (1.0-2.8) Lipase 81 (23-300) U/L Chlamy pneumoniae PCR Not detected (Not Detect) Adenovirus (PCR) Not detected (Not Detect) B. pertussis DNA (PCR) Not detected (Not Detecte) B.parapertussis DNA PCR Not detected (Not Detecte) Coronavirus OC43 (PCR) Not detected (Not Detect) Coronavirus HKU1 (PCR) Not detected (Not Detect) Coronavirus 229E (PCR) Not detected (Not Detect) SARS-CoV-2 (PCR) Cancelled Not detected Coronavirus NL63 (PCR) Not detected (Not Detect) Human Metapneumovir PCR Not detected (Not Detect) Influenza A (RT-PCR) Cancelled Influenza Type A (PCR) Not detected (Not Detect) Influenza B (RT-PCR) Cancelled Influenza Type B (PCR) Not detected (Not Detect) M. pneumoniae (PCR) Not detected (Not Detect) Parainfluenza 1 (PCR) Not detected (Not Detect) Parainfluenza 2 (PCR) Not detected (Not Detect) Parainfluenza 3 (PCR) Not detected (Not Detect) Parainfluenza 4 (PCR) Not detected (Not Detect) RSV (PCR) Cancelled Not detected Entero/Rhino (PCR) Not detected (Not Detect) Imaging Data CT - cervical spine: Radiologist's Impression: [address] [address] [address] Scan Report Signed Patient: Barrett Tam MR#: [id number] : 1945 Acct:[id number] Age/Sex: 77 / M Date of Service: 07/10/23 Loc: ED Accession Number: [id number] ?? Procedure: CT cervical spine wo con Ordering Provider: Bob Lugo MD PROCEDURE:? CT CERVICAL SPINE WO CON ? INDICATIONS:? Fall/injury ? TECHNIQUE:? Noncontrast 3 mm thick sections acquired from the skull base to the T4 level.? Sagittal and coronal reformats were then constructed.? For radiation dose reduction, the following was used:? automated exposure control, adjustment of mA and/or kV according to patient size.? ? COMPARISON:? None. ? FINDINGS:? Image quality:? Excellent.? ? Bones:? No fractures or dislocations.? Visualized superior ribs are intact.? Cervical spondylitic change with multilevel facet arthropathy, right greater than left, and multilevel uncovertebral joint hypertrophy resulting in foraminal stenosis.? There is a degree of canal stenosis at C6-C7.? ? Soft tissues:? Prevertebral soft tissues are normal in thickness.? No paravertebral hematomas.? No apical pneumothoraces.? ? ? IMPRESSION:? ? 1. No acute cervical fracture or dislocation. ? 2. Cervical spondylitic change. ? Dictated by: Manuel Ly M.D. on 07/10/2023 at 15:30 ? ? Approved by: Manuel Ly M.D. on 07/10/2023 at 15:32 ? CT scan - head: Radiologist's Impression: [place] [address] CT Scan Report Signed Patient: Barrett Tam MR#: [id number] : 1945 Acct:[id number] Age/Sex: 77 / M Date of Service: 07/10/23 Loc: ED Accession Number: [id number] ?? Procedure: CT head/brain wo con Ordering Provider: Bob Lugo MD PROCEDURE:? CT HEAD/BRAIN WO CON ? INDICATIONS:? Fall/injury ? TECHNIQUE:? Noncontrast 4.5 mm thick angled axial sections acquired from the foramen magnum to the vertex, with coronal and sagittal reformats.? For radiation dose reduction, the following was used:? automated exposure control, adjustment of mA and/or kV according to patient size.? ? COMPARISON:? [facility], CT, CT HEAD/BRAIN WO CON, 11/30/2022, 14:35. ? FINDINGS:? Image quality:? Excellent.? ? CSF spaces:? Basal cisterns are patent.? No extra-axial fluid collections.? Ventricles are normal in size and shape.? ? Brain:? No midline shift.? No intracranial masses or hemorrhage.? Villegas-white matter interface is normal.? ? Skull and face:? Calvarium and visualized facial bones are intact, without suspicious lesions.? ? Sinuses:? Visualized sinuses and mastoids are clear.? ? IMPRESSION:? No acute intracranial process. ? ? Dictated by: Manuel Ly M.D. on 07/10/2023 at 15:29 ? ? Approved by: Manuel Ly M.D. on 07/10/2023 at 15:30 ? Extremity x-ray #1: Radiologist's Impression: [address] [address] XRay Report Signed Patient: Barrett Tam MR#: [id number] : 1945 Acct:[id number] Age/Sex: 77 / M Date of Service: 07/10/23 Loc: RAD Accession Number: [id number] ?? Procedure: XR wrist LT min 3V Ordering Provider: Alyssa Cardenas PROCEDURE:? XR WRIST LT MIN 3V ? INDICATIONS: Left wrist pain ? TECHNIQUE:? 3 views of the wrist were acquired.? ? COMPARISON:? [facility], CR, XR WRIST RT MIN 3V, 06/28/2023, 8:19. ? FINDINGS:? ? Bones:? No acute fractures, dislocation, or pathologic subluxation.? There are several scattered subcortical cystic changes in proximal and distal carpal row.? Joint space loss and hypertrophic spurring at the 1st metacarpal phalangeal joint.? No suspicious bone lesions. ? Soft tissues:? No suspicious soft tissue calcifications.? ? IMPRESSION:? ? 1. 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 ? 2. 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 ? ? Dictated by: Gabriella Mccormick M.D. on 07/10/2023 at 15:14 ? ? Approved by: Gabriella Mccormick M.D. on 07/10/2023 at 15:16 ? MDM Narrative Medical decision making narrative: Patient here with complains of bilateral multiple joint pain neck pain. No recent illness other diarrhea. No fever chills. Patient seen recently for wrist injury secondary to a fall. Now both wrists hurt. Patient does have history of rheumatoid arthritis but usually resolves within 3 days. This set of symptoms started this past Saturday, 5 days ago. Denies any chest pain abdominal pain. Has neck pain ankle pain knee pain. Patient unsure if he fell Saturday night. was out of town. He does get up about 4 times at night to go the bathroom. He does not recall falling when he did go the bathroom. However he awoke Saturday morning feeling as if he did fall down. Is not recall waking up on the ground or getting himself up to walk back to the bedroom. He does not have history of sleep walking. No bruising seen on the face or back or arms. Or ankles After history and exam CT head CT cervical spine x-ray left wrist viral panel GI panel CBC CMP CRP lipase lactic acid EKG MDM CC: Multi joint pain Complicating co-morbidities: Rheumatoid arthritis Data collected from: Patient and Medical records reviewed: ER visit here June 28, 2023 Differential considered: Includes but not limited to viral syndrome rheumatoid arthritis Exam documented above, pertinent findings include: Tender bilateral multiple joints Lab Test results independently reviewed as above. Pertinent findings: WBC 9.0 hemoglobin 10.5 hematocrit 30.5 platelets 406 PT 14.3 INR 1.2 sodium 139 potassium 3.3 GFR greater than 60 AST 25 ALT 15 viral panel negative Independently reviewed EKG sinus rhythm rate [address] elevation or depression Imaging studies independently reviewed: CT cervical spine no acute process, CT head no acute process, x-ray left wrist suggesting polyarticular arthritis. Prominent osteoarthritic change at 1st MCP joint Consultations: None indicated Treatments: Normal saline ketorolac morphine oxycodone Zofran Re-evaluations: Patient does have high level of pain tolerance. Please see notes below regarding June 10, 1 month ago visit here. Regarding pain medication Discussion: Appropriate for discharge home. Patient laboratory studies imaging are reassuring. Patient does have history of high opiate tolerance. Please see notes below. He is on oxycodone 3 times a day. At this time laboratory studies and imaging are reassuring as well as exam. Return precautions reviewed with patient. is driving. Not toxic at discharge. Pain is controlled. Patient unable to provide urinalysis or GI stool panel. 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 No abdominal pain no urinary complaints Diagnosis: Rheumatoid arthritis Additional Information: Time Seen by Provider: 06/10/23 18:06 Source: patient History of Present Illness HPI Narrative: 77-year-old gentleman with multiple chronic medical problems including chronic back pain post 9 surgeries on active pain management with 10 mg of oxycodone 4 times a day and 2 mg of hydrocodone at night to sleep managed by Dr. Snell, hypertension, PTSD, coronary artery disease, prostate cancer presents for the 2nd time and 48 hours complaining of severe back pain.? He is out of his oxycodone and does not have a refill for approximately 4 days.? He is confused and in obvious narcotic withdrawal at this time he is not sure of the time or date did not realize it was Saturday and he could have called Dr. Snell when asked why he did not: Saturday when he knew he was going to run out of medications, again he was simply confused.? We discussed the inappropriate nature of return ER visits for chronic pain management.? Because of his chronic medical issues, acute opioid withdrawal is, in fact, going to be a life-threatening issue for him so will help him with his acute issue this evening so he can get some sleep, give him a single dose of oxycodone for the morning and will make sure that he realizes he needs to talk to Dr. Snell for medication refill. Discharge Plan Departure Patient Disposition: Home Clinical Impression: Rheumatoid arthritis Instructions: DI for Rheumatoid Arthritis Activity Restrictions/Additional Instructions: No driving operating machinery today or when taking prescribed pain medication. See your providers this week for re-evaluation. You may continue home medications. Return if worse if any questions or concerns. Today's laboratory studies and imaging are reassuring. Your pain is likely rheumatoid arthritis flare-up. Prescriptions: No Action fluoxetine 10 mg capsule See Rx Instructions .ROUTE .COMPLEX Qty: 90 3RF Dose Instruction: take 1 capsule by mouth once daily WITH 20MG CAP DAILY TOTAL 30 MG DAILY Rx Instructions: take 1 capsule by mouth once daily WITH 20MG CAP DAILY TOTAL 30 MG DAILY fluoxetine 20 mg capsule 20 mg PO DAILY Qty: 90 3RF Rx Instructions: Take with 10 mg to complete 30 mg dose albuterol sulfate 2.5 mg /3 mL (0.083 %) solution for nebulization 2.5 mg Continuous Nebulization Q6HP PRN (Reason: shortness of breath or wheezing) Qty: 360 2RF albuterol sulfate 90 mcg/actuation HFA aerosol inhaler 1 inh INHALATION Q4-6H PRN (Reason: shortness of breath) Qty: 18 4RF omeprazole 40 mg capsule,delayed release(DR/EC) 40 mg PO DAILY Qty: 90 3RF Rx Instructions: take 1 capsule by mouth once daily lidocaine 5 % adhesive patch,medicated 2 patch topical DAILY Qty: 30 1RF Rx Instructions: leave on most painful area for up to 12 hrs metoprolol succinate 100 mg tablet extended release 24 hr 100 mg PO DAILY Qty: 90 1RF hydromorphone 2 mg tablet 2 mg PO BEDTIME PRN (Reason: pain) Qty: 30 0RF Rx Instructions: Must last to July 29 2023 oxycodone 10 mg tablet 10 mg PO TID PRN (Reason: pain) Qty: 84 0RF Rx Instructions: Must last to July 29, 2023 ketoconazole 2 % cream 1 applic topical BID Qty: 30 1RF nitroglycerin 0.4 mg tablet, sublingual 0.4 mg sublingual Q5M PRN (Reason: chest pain) Qty: 20 1RF Rx Instructions: do not exceed 3 doses per episode potassium chloride 20 mEq tablet extended release 20 meq PO BID Qty: 10 0RF Disabled Parking Permit 1 1 % SEEINSTR Rx Instructions: Valid for 5 years sulfasalazine 500 mg tablet 1,000 mg PO BID amlodipine 5 mg tablet 5 mg PO BEDTIME Patient Comments: pt received dose in hospital 11/10/19 early AM admit to [facility] valacyclovir 1 gram tablet 1,000 mg PO Q8H PRN (Reason: Breakout) hydrochlorothiazide 25 mg tablet 12.5 mg PO QAM losartan 100 mg tablet 100 mg PO DAILY ibuprofen 400 mg Tablet 400 mg PO Q4HR PRN (Reason: Pain, Mild (1-3)) Qty: 60 0RF ipratropium-albuterol 0.5 mg-3 mg(2.5 mg base)/3 mL solution for nebulization 3 ml inhalation Q6H PRN (Reason: shortness of breath or wheezing) Qty: 90 0RF prednisone 10 mg tablet 10 mg PO DAILY Qty: 30 0RF Rx Instructions: day 1-3: 40 mg once a day day 4-6: 30 mg once a day day 7-9: 20 mg once a day day 10-12: 10 mg once a day Referrals: Edilberto Snell, [Primary Care Provider] - Stand Alone Forms: Patient Portal/API
--- NOTE | 2023-07-10 14:53 | DI.CT.S_ITS ---
PROCEDURE: CT HEAD/BRAIN WO CON INDICATIONS: Fall/injury TECHNIQUE: Noncontrast 4.5 mm thick angled axial sections acquired from the foramen magnum to the vertex, with coronal and sagittal reformats. For radiation dose reduction, the following was used: automated exposure control, adjustment of mA and/or kV according to patient size. COMPARISON: [facility], CT, CT HEAD/BRAIN WO CON, 11/30/2022, 14:35. FINDINGS: Image quality: Excellent. CSF spaces: Basal cisterns are patent. No extra-axial fluid collections. Ventricles are normal in size and shape. Brain: No midline shift. No intracranial masses or hemorrhage. Villegas-white matter interface is normal. Skull and face: Calvarium and visualized facial bones are intact, without suspicious lesions. Sinuses: Visualized sinuses and mastoids are clear. IMPRESSION: No acute intracranial process. Dictated by: Manuel Ly M.D. on 07/10/2023 at 15:29 Approved by: Manuel Ly M.D. on 07/10/2023 at 15:30
[2023-07-10 14:59] LABS: INR 1.2 (0.9-1.3); Prothrombin Time 14.3 SECONDS (10.1-12.7)
[2023-07-10 15:00] LABS: Add Manual Diff / Slide Review NO; Basophils Absolute Auto 100 /uL (0-100); Basophils Percent Auto 1.4 % (0-2); Eosinophils Absolute Auto 200 /uL (0-450); Eosinophils Percent Auto 1.9 % (2-4); Hematocrit 30.5 % (41-53); Hemoglobin 10.5 g/dL (13.5-17.5); Lymphocytes Absolute Auto 1400 /uL (1100-4500); Lymphocytes Percent Auto 15.4 % (25-40); Mean Corpuscular HGB Conc 34.6 % (30-36); Mean Corpuscular Hemoglobin 26.6 PG (26-34); Mean Corpuscular Volume 77.1 fL (80-100); Monocytes Absolute Auto 1100 /uL (0-900); Monocytes Percent Auto 12.7 % (3-14); Neutrophils Absolute Auto 6100 /uL (1500-7000); Neutrophils Percent Auto 68.6 % (50-75); Platelet Count 406 X10^3/uL (150-400); Red Blood Cell Count 3.95 X10^6/uL (4.5-5.9); Red Cell Distribution Width 15.4 % (11.6-14.8)
--- NOTE | 2023-07-10 15:05 | DI.CT.S_ITS ---
PROCEDURE: CT CERVICAL SPINE WO CON INDICATIONS: Fall/injury TECHNIQUE: Noncontrast 3 mm thick sections acquired from the skull base to the T4 level. Sagittal and coronal reformats were then constructed. For radiation dose reduction, the following was used: automated exposure control, adjustment of mA and/or kV according to patient size. COMPARISON: None. FINDINGS: Image quality: Excellent. Bones: No fractures or dislocations. Visualized superior ribs are intact. Cervical spondylitic change with multilevel facet arthropathy, right greater than left, and multilevel uncovertebral joint hypertrophy resulting in foraminal stenosis. There is a degree of canal stenosis at C6-C7. Soft tissues: Prevertebral soft tissues are normal in thickness. No paravertebral hematomas. No apical pneumothoraces. IMPRESSION: 1. No acute cervical fracture or dislocation. 2. Cervical spondylitic change. Dictated by: Manuel Ly M.D. on 07/10/2023 at 15:30 Approved by: Manuel Ly M.D. on 07/10/2023 at 15:32
[2023-07-10 15:06] LABS: Alanine Aminotransferase 15 IU/L (<50); Albumin 3.8 g/dL (3.5-5.0); Alkaline Phosphatase 76 U/L (38-126); Aspartate Aminotransferase 25 IU/L (17-59); BUN Creatinine Ratio 11.1 (6-22); Bilirubin Total 0.4 mg/dL (0.2-1.3); Blood Urea Nitrogen 8 mg/dL (9-20); Calcium 9.1 mg/dL (8.4-10.2); Carbon Dioxide 25 mmol/L (22-32); Chloride 102 mmol/L (98-107); Estimated Glomerular Filt Rate > 60 mL/min (>60); Globulin 3.7 g/dL (1.7-4.1); Glucose 99 mg/dL (80-110); HEMOLYSIS < 15 (0-50); Lipase 81 U/L (23-300); Potassium 3.3 mmol/L (3.4-5.1); Sodium 139 mmol/L (137-145); Total Protein 7.5 g/dL (6.3-8.2)
[2023-07-10 15:07] LABS: Lactate (Lactic Acid) 1.6 mmol/L (0.7-2.1)
[2023-07-10] MEDS: KETOROLAC 30 MG/ML VIAL 15 MG IV (15:12)
--- NOTE | 2023-07-10 15:58 | PC.NURSE ---
Pt complaining of pain and asking for additional pain medications. Dr. Lugo aware.
[2023-07-10 16:11] LABS: Adenovirus Not Detected (Not Detect); Coronavirus 229E Not Detected (Not Detect); Coronavirus HKU1 Not Detected (Not Detect); Coronavirus NL 63 Not Detected (Not Detect); Coronavirus OC43 Not Detected (Not Detect); Human Metapneumovirus Not Detected (Not Detect); Human Rhinovirus/Enterovirus Not Detected (Not Detect); SARS- CoV-2 Not Detected (Not Detecte)
[2023-07-10 16:12] LABS: B. parapertussis Not Detected (Not Detecte); Bordetella pertussis Not Detected (Not Detecte); Chlamydophila pneumoniae Not Detected (Not Detect); Influenza A Not Detected (Not Detect); Influenza B Not Detected (Not Detect); Mycoplasma pneumoniae Not Detected (Not Detect); Parainfluenza Virus 1 Not Detected (Not Detect); Parainfluenza Virus 2 Not Detected (Not Detect); Parainfluenza Virus 3 Not Detected (Not Detect); Parainfluenza Virus 4 Not Detected (Not Detect); Respiratory Syncytial Virus Not Detected (Not Detect)
[2023-07-10] MEDS: MORPHINE 4 MG/ML INJ IV (16:41)
[2023-07-10 17:30] VITALS: BP 155/71; PULSE 84; O2SAT 97
[2023-07-10 17:53] LABS: C-Reactive Protein Quant 2.3 mg/dL (<1.0)
[2023-07-10] MEDS: OXYCODONE ER 10 MG TAB PO (17:54)
== END 2023-07-10 17:40 | disposition home or self-care (01) ==
PROVIDERS: Emergency Provider Emergency Medicine; PCP Family Medicine
DX: M06.9 Rheumatoid arthritis, unspecified (principal); R10.9 Unspecified abdominal pain; M25.532 Pain in left wrist
CPT/HCPCS: 36415; 70450; 72125; 73110; 80053; 83605; 83690; 85025; 85610; 86140; 87633; 93005; 96361; 96374; 96375; 99284; J1885; J2270

== ENCOUNTER 2023-07-11 18:24 | Emergency (ER) | payer MEDICARE, OTHER, SELFPAY ==
[2022-11-15 12:10] VITALS: BMI 30.8
[2023-07-11] VITALS (9 sets, daily range): BP systolic 148–188; BP diastolic 67–86; PULSE 66–79; RESP 16–18; TEMP 36.8; O2SAT 97–98; BMI 29.7
--- NOTE | 2023-07-11 19:14 | ED.FALL ---
HPI - Fall General Chief Complaint: Fall Stated Complaint: fell in bathroom/pain in back knees gave out Time Seen by Provider: 07/11/23 18:30 Source: patient Mode of arrival: Wheelchair History of Present Illness HPI Narrative: 77-year-old male former smoker with history of hypertension, kidney stones, pneumonia, PTSD, prostate cancer, prior back problems presents with a chief complaint of back pain worsening today. He states that he was in his normal state of health and was in the bathroom and moved awkwardly and felt a twinge in his back that radiated down his left leg which is pretty typical for him but this caused him to fall forward into the toilet and he complains of bilateral shoulder pain, back pain, left knee and ankle pain. He denies any head or neck injury. He denies any prodromal symptoms such as dizziness, weakness or lightheadedness. He denies chest pain or shortness of breath. His shoulders hurt worse when he tries to move them but denies any numbness or tingling. His left knee hurts worse when he tries to stand, move on it or touch it as does his ankle. Again he denies any numbness, tingling or weakness. No loss of control of bowel or bladder. Related Data Home Medications Medication Instructions Recorded Confirmed Disabled Parking Permit 1 % SEEINSTR 11/08/20 07/01/23 sulfasalazine 500 mg tablet 1,000 mg PO BID 11/10/20 07/01/23 amlodipine 5 mg tablet 5 mg PO BEDTIME 11/08/22 07/01/23 valacyclovir 1 gram tablet 1,000 mg PO Q8H PRN Breakout 11/08/22 07/01/23 hydrochlorothiazide 25 mg tablet 12.5 mg PO QAM 11/15/22 07/01/23 losartan 100 mg tablet 100 mg PO DAILY 11/15/22 07/01/23 Previous Rx's Medication Instructions Recorded fluoxetine 10 mg capsule See Rx Instructions .Route 08/14/22 .COMPLEX #90 caps fluoxetine 20 mg capsule 20 mg PO DAILY #90 caps 08/14/22 albuterol sulfate 2.5 mg/3 mL 2.5 mg (3 mL) continuous 10/24/22 (0.083 %) solution for nebulization nebulization Q6HP PRN shortness of breath or wheezing #360 mL ibuprofen 400 mg tablet 400 mg PO Q4HR PRN Pain, Mild 11/16/22 (1-3) #60 tabs albuterol sulfate 90 mcg/actuation 1 inh inhalation Q4-6H PRN 12/27/22 aerosol inhaler shortness of breath #18 grams omeprazole 40 mg capsule,delayed 40 mg PO DAILY #90 caps 01/01/23 release lidocaine 5 % topical patch 2 patch topical DAILY #30 ea 01/08/23 ketoconazole 2 % topical cream 1 applic topical BID #30 grams 02/08/23 potassium chloride 20 mEq 20 meq PO BID #10 tabs 02/26/23 tablet,extended release ipratropium 0.5 mg-albuterol 3 mg 3 ml inhalation Q6H PRN shortness 03/19/23 (2.5 mg base)/3 mL nebulization of breath or wheezing #90 mL soln nitroglycerin 0.4 mg sublingual 0.4 mg sublingual Q5M PRN chest 03/28/23 tablet pain #20 tabs hydromorphone 2 mg tablet 2 mg PO BEDTIME PRN pain #30 tabs 07/01/23 oxycodone 10 mg tablet 10 mg PO TID PRN pain #84 tabs 07/01/23 metoprolol succinate 100 mg 100 mg PO DAILY #90 tabs 07/11/23 tablet,extended release 24 hr Allergies Allergy/AdvReac Type Severity Reaction Status Date / Time cyclobenzaprine Allergy Severe Dizziness, Verified 07/11/23 18:37 [From Flexeril] I bounce off ag acetaminophen [ACETAMINOPHEN] AdvReac Unknown Can't take Verified 07/11/23 18:37 r/t Hep C; upset stomach Review of Systems Review of Systems Narrative: GENERAL: Denies chills, fatigue, malaise, fever, sweats. HEENT: Denies sinus pain, ear pain, sore throat, difficulty swallowing, dizziness. RESPIRATORY: Denies dyspnea, cough, wheezing, hemoptysis, sputum. CARDIOVASCULAR: Denies chest pain, palpitations, orthopnea, edema, GASTROINTESTINAL: Denies nausea, vomiting, abdominal pain, diarrhea, constipation, melena. : Denies dysuria, frequency, incontinence, hematuria, urinary retention. MUSCULOSKELETAL: See HPI SKIN: Denies rash, skin lesions, or other NEUROLOGIC: See HPI PSYCHIATRIC: No concerning psychosocial issues. 12 point review of systems is negative except for those stated above Patient History Medical History Abdominal wall pain in both lower quadrants Acute exacerbation of chronic bronchitis Adhesive capsulitis Aftercare following left shoulder joint replacement surgery Anemia Anxiety Arthritis (Unknown) Chronic ankle pain, bilateral Chronic pain syndrome (Unknown) Colles' fracture Constipation Depression (Unknown) Dyspepsia Eustachian tube dysfunction Fibromyalgia Foraminal stenosis of lumbar region Hepatitis C (Unknown) Hypertension (Unknown) Impotence (Unknown) Kidney stones (Unknown) Left lateral epicondylitis Left shoulder strain Migraines (Unknown) Oral lesion Peripheral neuropathy Pneumonia (~2017) Preoperative clearance Prostate cancer (Unknown) PTSD (post-traumatic stress disorder) (Unknown) Restless leg syndrome (Unknown) Rheumatoid arthritis Right wrist pain Right wrist sprain Seasonal allergic rhinitis Sinus drainage Skin cancer (Unknown) Tinea Surgical History History of ankle surgery History of back surgery History of carpal tunnel repair History of lumbar fusion History of lumbar fusion (05/10/22) History of prosthetic unicompartmental arthroplasty of right knee History of tonsillectomy History of total replacement of right shoulder joint Hx of foot surgery Hx of laminectomy (10/2012) S/P lumbar fusion Status post cholecystectomy Status post knee surgery Family History Father Heart disease Mother No problems noted. Social History marital status: household members: spouse lives independently: Yes occupational status: previously employed Smoking Status: Former smoker Tobacco: How many years used: 20 quit status: has quit before alcohol intake: former substance use type: former substance user and marijuana Smoking Status: Former smoker tobacco type: cigarettes alcohol intake frequency: 0-2 drinks per day Substance Use Type: does not use Exam Narrative Exam Narrative: GENERAL: [77] year old patient appears stated age. Well-developed patient, in mild distress. HEAD: Atraumatic. Normocephalic. EYES: Pupils equal round and reactive. Extraocular motions intact. No scleral icterus. No injection or drainage. ENT: Nose without bleeding, purulent drainage. Throat without erythema, tonsillar hypertrophy or exudate. Airway patent. NECK: Trachea midline. Non tender CARDIOVASCULAR: Regular rate and rhythm without murmurs, gallops, or rubs. RESPIRATORY: Clear to auscultation. Breath sounds equal bilaterally. No wheezes, rales, or rhonchi. GASTROINTESTINAL: Abdomen soft, non-tender, nondistended. EXTREMITIES: Full but painful range of motion of bilateral shoulders, left knee and ankle, no obvious deformities, no ligamentous laxity, no neuro symptoms such as numbness, tingling or weakness, cap refill intact, sensation intact. BACK: spinning mule tender but free of any obvious external abnormalities. Patient exam notes decreased range of motion and muscle spasm, but no CVA tenderness, or vertebral point tenderness. There are no symptoms of cauda equina such as saddle anesthesia, and decreased reflexes, decreased sensation or strength. NEURO: AOx3. SKIN: No rash or erythema of visible areas Initial Vital Signs Initial Vital Signs: Vital Signs Temperature 98.3 F 07/11/23 18:24 Pulse Rate 79 07/11/23 18:24 Respiratory Rate 16 07/11/23 18:24 Blood Pressure 174/82 H 07/11/23 18:24 Pulse Oximetry 97 07/11/23 18:24 Oxygen Delivery Method Room Air 07/11/23 18:24 Course Orders Ordered: ED Orders 07/11/23 19:15 CT lumbar spine wo con Stat 07/11/23 19:57 XR ankle LT min 3V Stat XR knee LT 3V Stat XR shoulder LT min 2V Stat XR shoulder RT min 2V Stat Discontinued Medications Hydromorphone HCl (Hydromorphone 1 Mg Inj) 1 mg IM NOW ONE Stop: 07/11/23 21:06 Last Admin: 07/11/23 21:14 Dose: 1 mg Documented By: HUGH Oxycodone HCl (Oxycodone Ir 5 Mg Tablet) 10 mg PO NOW ONE Stop: 07/11/23 19:58 Last Admin: 07/11/23 20:12 Dose: 10 mg Documented By: NBA Vital Signs Vital signs: Vital Signs - 8 hr 07/11/23 19:00 07/11/23 19:32 07/11/23 19:33 Pulse Rate 72 66 Respiratory Rate 18 Blood Pressure 165/79 H Pulse Oximetry 98 98 07/11/23 19:33 07/11/23 20:00 07/11/23 20:00 Pulse Rate 69 78 Respiratory Rate Blood Pressure 148/67 H Pulse Oximetry 98 98 07/11/23 20:30 07/11/23 20:30 07/11/23 21:00 Pulse Rate 77 76 Respiratory Rate Blood Pressure 151/70 H Pulse Oximetry 98 98 07/11/23 21:01 07/11/23 21:01 Pulse Rate 77 Respiratory Rate 18 Blood Pressure 188/86 H Pulse Oximetry 97 MDM - Fall MDM Narrative Medical decision making narrative: [77] year old patient presents with fall with back, shoulder, ankle and knee pain Multiple etiologies for patient's symptoms considered including, but not limited to: [Lumbar fracture versus other orthopedic injury versus other] Prior Charts reviewed in our EMR Primary Historian: patient Imaging reviewed: CT L Spine without acute findings. Xrays without bony abnormality Patient's symptoms improved over duration of stay with above-stated therapies. Fall with minor injuries, no need for intervention, no prodromal symptoms, pain relatively controlled with above-stated therapies, no indication for further workup, ambulatory in the department Findings and discharge diagnosis discussed with patient/family followed by verbalization of understanding Return precautions discussed with patient/family whom verbalize understanding of diagnosis and plan Discharge Plan Departure Patient Disposition: Home Clinical Impression: Chronic back pain, Acute pain of both shoulders, Acute pain of left knee, Acute left ankle pain Instructions: How to Prevent Falls Activity Restrictions/Additional Instructions: *You have been diagnosed with [fall without any significant injury. As we discussed your imaging including lumbar spine CT and x-rays of shoulders, left knee and left ankle are without any acute findings] *What to do: *Please continue to take your regular medications as directed. [ ] New medication prescriptions sent to your pharmacy: [ ] [ ] New medication written as a paper prescription [ ] No new medications given *Please follow up with your primary care provider in 2-3 days, call for an appointment. Let them know you were seen in the Emergency Department and that we ask that you be seen in follow up. We will electronically transmit a record of today's note if your PCP is in our system *If you do not have a primary care provider please contact the [facility] Resource line at [phone]. They will ask some questions about your medical history and help get you set up with a doctor in the community. *Return to Emergency Department if you should have any new, worsening or concerning symptoms, such as [fever greater than 101 F, shaking chills, worsening pain, persistent vomiting or other bothersome symptoms] Prescriptions: No Action fluoxetine 10 mg capsule See Rx Instructions .ROUTE .COMPLEX Qty: 90 3RF Dose Instruction: take 1 capsule by mouth once daily WITH 20MG CAP DAILY TOTAL 30 MG DAILY Rx Instructions: take 1 capsule by mouth once daily WITH 20MG CAP DAILY TOTAL 30 MG DAILY fluoxetine 20 mg capsule 20 mg PO DAILY Qty: 90 3RF Rx Instructions: Take with 10 mg to complete 30 mg dose albuterol sulfate 2.5 mg /3 mL (0.083 %) solution for nebulization 2.5 mg Continuous Nebulization Q6HP PRN (Reason: shortness of breath or wheezing) Qty: 360 2RF albuterol sulfate 90 mcg/actuation HFA aerosol inhaler 1 inh INHALATION Q4-6H PRN (Reason: shortness of breath) Qty: 18 4RF omeprazole 40 mg capsule,delayed release(DR/EC) 40 mg PO DAILY Qty: 90 3RF Rx Instructions: take 1 capsule by mouth once daily lidocaine 5 % adhesive patch,medicated 2 patch topical DAILY Qty: 30 1RF Rx Instructions: leave on most painful area for up to 12 hrs metoprolol succinate 100 mg tablet extended release 24 hr 100 mg PO DAILY Qty: 90 1RF hydromorphone 2 mg tablet 2 mg PO BEDTIME PRN (Reason: pain) Qty: 30 0RF Rx Instructions: Must last to July 29 2023 oxycodone 10 mg tablet 10 mg PO TID PRN (Reason: pain) Qty: 84 0RF Rx Instructions: Must last to July 29, 2023 ketoconazole 2 % cream 1 applic topical BID Qty: 30 1RF nitroglycerin 0.4 mg tablet, sublingual 0.4 mg sublingual Q5M PRN (Reason: chest pain) Qty: 20 1RF Rx Instructions: do not exceed 3 doses per episode potassium chloride 20 mEq tablet extended release 20 meq PO BID Qty: 10 0RF Disabled Parking Permit 1 1 % SEEINSTR Rx Instructions: Valid for 5 years sulfasalazine 500 mg tablet 1,000 mg PO BID amlodipine 5 mg tablet 5 mg PO BEDTIME Patient Comments: pt received dose in hospital 11/10/19 early AM admit to [facility] valacyclovir 1 gram tablet 1,000 mg PO Q8H PRN (Reason: Breakout) hydrochlorothiazide 25 mg tablet 12.5 mg PO QAM losartan 100 mg tablet 100 mg PO DAILY ibuprofen 400 mg Tablet 400 mg PO Q4HR PRN (Reason: Pain, Mild (1-3)) Qty: 60 0RF ipratropium-albuterol 0.5 mg-3 mg(2.5 mg base)/3 mL solution for nebulization 3 ml inhalation Q6H PRN (Reason: shortness of breath or wheezing) Qty: 90 0RF Referrals: Edilberto Snell, [Primary Care Provider] - Stand Alone Forms: Patient Portal/API
--- NOTE | 2023-07-11 19:15 | DI.CT.S_ITS ---
PROCEDURE: CT LUMBAR SPINE WO CON INDICATIONS: back pain, fall TECHNIQUE: Noncontrast 3 mm thick sections acquired from the T12 level to the sacrum. Sagittal and coronal reformats were constructed. For radiation dose reduction, the following was used: automated exposure control. COMPARISON: None. FINDINGS: Image quality: Excellent. Bones: There is normal bony alignment. Posterior fusion hardware at T11-L4. Hardware is intact. No evidence of acute fracture. Multilevel degenerative disc and facet disease is present. No acute vertebral body compression fractures. No suspicious lytic or blastic bony lesions. No pars defects. Soft tissues: No retroperitoneal masses or hematomas. Visualized aorta is normal in caliber. IMPRESSION: 1. Postsurgical sequelae. 2. No acute fracture. No osseous lesion. If symptoms and/or clinical suspicion for pathology persist, further assessment with MRI or bone scan may be helpful for further assessment. Dictated by: Steve Clement M.D. on 07/11/2023 at 19:45 Approved by: Steve Clement M.D. on 07/11/2023 at 19:47
--- NOTE | 2023-07-11 19:57 | DI.RAD.S_ITS ---
PROCEDURE: XR ANKLE LT MIN 3V INDICATIONS: fall with pain TECHNIQUE: 3 views of the ankle were acquired. COMPARISON: [facility], , ANKLE 3 VIEWS RIGHT, 11/17/2007, 17:22. FINDINGS: Bones: No fractures or dislocations. Ankle mortise is normally aligned. No suspicious bony lesions. Soft tissues: No tibiotalar joint effusion. There is periarticular soft tissue swelling medially. Achilles tendon appears normal. IMPRESSION: 1. No fracture or dislocation. Dictated by: Hipolito Willis M.D. on 07/11/2023 at 21:28 Approved by: Hipolito Willis M.D. on 07/11/2023 at 21:35
--- NOTE | 2023-07-11 19:57 | DI.RAD.S_ITS ---
P or ROCEDURE: XR SHOULDER LT MIN 2V INDICATIONS: fall with pain TECHNIQUE: 2 views of the shoulder were acquired. COMPARISON: [facility], CR, XR SHOULDER LT MIN 2V, 11/30/2022, 14:35. FINDINGS: Bones: No acute fractures or dislocations. There is a left shoulder prosthesis redemonstrated. An old healed fracture of the left clavicular shaft is also again noted. No suspicious bony lesions. Visualized ribs appear intact. Soft tissues: No suspicious soft tissue calcifications. IMPRESSION: 1. No acute fracture or dislocation. Dictated by: Hipolito Willis M.D. on 07/11/2023 at 21:36 Approved by: Hipolito Willis M.D. on 07/11/2023 at 21:37
--- NOTE | 2023-07-11 19:57 | DI.RAD.S_ITS ---
PROCEDURE: XR SHOULDER RT MIN 2V INDICATIONS: fall with pain TECHNIQUE: 2 views of the shoulder were acquired. COMPARISON: [facility], CR, XR SHOULDER LT MIN 2V, 11/30/2022, 14:35. FINDINGS: Bones: No fractures or dislocations. There is a right shoulder prosthesis. No suspicious bony lesions. Visualized ribs appear intact. Soft tissues: No suspicious soft tissue calcifications. IMPRESSION: 1. No fracture or dislocation. Dictated by: Hipolito Willis M.D. on 07/11/2023 at 21:37 Approved by: Hipolito Willis M.D. on 07/11/2023 at 21:38
--- NOTE | 2023-07-11 19:57 | DI.RAD.S_ITS ---
PROCEDURE: XR KNEE LT 3V INDICATIONS: fal with lateral knee pain TECHNIQUE: 3 views of the knee were acquired. COMPARISON: [facility], , KNEE 3V RIGHT, 02/11/2013, 10:28. FINDINGS: Bones: No fractures or dislocations. No suspicious bony lesions. Soft tissues: There is a small joint effusion. No suspicious soft tissue calcifications. IMPRESSION: 1. No fracture or dislocation. Dictated by: Hipolito Willis M.D. on 07/11/2023 at 21:35 Approved by: Hipolito Willis M.D. on 07/11/2023 at 21:36
[2023-07-11] MEDS: OXYCODONE IR 5 MG TABLET 10 MG PO (20:12)
[2023-07-11] MEDS: HYDROMORPHONE 1 MG INJ IM (21:14)
== END 2023-07-11 22:00 | disposition home or self-care (01) ==
PROVIDERS: Emergency Provider Emergency Medicine; PCP Family Medicine
DX: M25.512 Pain in left shoulder (principal); M25.511 Pain in right shoulder; M25.562 Pain in left knee; M25.572 Pain in left ankle and joints of left foot; M54.9 Dorsalgia, unspecified; W18.30XA Fall on same level, unspecified, initial encounter
CPT/HCPCS: 72131; 73030; 73562; 73610; 96372; 99284; J1170

== ENCOUNTER 2023-07-13 16:37 | Emergency (ER) | payer MEDICARE, OTHER, SELFPAY ==
[2022-11-15 12:10] VITALS: BMI 30.8
[2023-07-13] VITALS (8 sets, daily range): BP systolic 135–186; BP diastolic 65–88; PULSE 70–77; RESP 18; TEMP 36.6; O2SAT 97–98; BMI 29.7
--- NOTE | 2023-07-13 16:44 | DI.RAD.S_ITS ---
PROCEDURE: XR FEMUR LT MIN 2V INDICATIONS: glf, pain TECHNIQUE: 4 views of the femur were acquired. COMPARISON: None. FINDINGS: Bones: No fractures or dislocations. No suspicious bony lesions. Partially visualized pubic fixation hardware with a fracture component. Soft tissues: No suspicious soft tissue calcifications or masses. Multiple surgical clips projecting over the partially visualized pelvis. IMPRESSION: No acute fracture or dislocation. Dictated by: Hebert San M.D. on 07/13/2023 at 18:09 Approved by: Hebert San M.D. on 07/13/2023 at 18:12
--- NOTE | 2023-07-13 16:44 | DI.RAD.S_ITS ---
PROCEDURE: XR HIP W PEL IF DONE LT 2V INDICATIONS: glf, pain TECHNIQUE: AP pelvis with lateral view(s) of the left hip(s). COMPARISON: None. FINDINGS: Bones: No fractures or dislocations. Pubic symphysis fixation hardware in place. There is a fracture of the plate hardware. Right iliac bone fixation appears intact. Partially visualized lumbar spinal fixation hardware. Possible lucency surrounding the right L4 pedicle screw. No suspicious bony lesions. Soft tissues: The visualized bowel gas pattern is normal. No suspicious soft tissue calcifications. IMPRESSION: 1. No acute fractures or dislocations. 2. Pubic symphysis fixation hardware with fracture of the plate component. 3. Partially visualized lumbar spinal hardware with possible lucency surrounding the right L4 pedicle screw. Dictated by: Hebert San M.D. on 07/13/2023 at 18:12 Approved by: Hebert San M.D. on 07/13/2023 at 18:14
--- NOTE | 2023-07-13 16:45 | ED.FALL ---
HPI - Fall <Carie Santana MD - Last Filed: 07/13/23 18:00> General Chief Complaint: Fall Stated Complaint: Fall back pain Time Seen by Provider: 07/13/23 16:38 History of Present Illness HPI Narrative: 77-year-old male very well known to this emergency department presents by EMS from home for left hip pain after a ground level fall. Patient has been seen numerous times in this ER in the last month for various complaints. Patient was seen 2 days prior for ankle pain and 3 days prior for joint pain. Patient states that he was walking down some stairs when his leg gave out. He has a chronically weak left leg and this is not new to the patient. He landed on his buttocks and then to the side. He states that his back pain is at its baseline, however his left hip is hurting him. Related Data Home Medications Medication Instructions Recorded Confirmed Disabled Parking Permit 1 % SEEINSTR 11/08/20 07/01/23 sulfasalazine 500 mg tablet 1,000 mg PO BID 11/10/20 07/01/23 amlodipine 5 mg tablet 5 mg PO BEDTIME 11/08/22 07/01/23 valacyclovir 1 gram tablet 1,000 mg PO Q8H PRN Breakout 11/08/22 07/01/23 hydrochlorothiazide 25 mg tablet 12.5 mg PO QAM 11/15/22 07/01/23 losartan 100 mg tablet 100 mg PO DAILY 11/15/22 07/01/23 Previous Rx's Medication Instructions Recorded fluoxetine 10 mg capsule See Rx Instructions .Route 08/14/22 .COMPLEX #90 caps fluoxetine 20 mg capsule 20 mg PO DAILY #90 caps 08/14/22 albuterol sulfate 2.5 mg/3 mL 2.5 mg (3 mL) continuous 10/24/22 (0.083 %) solution for nebulization nebulization Q6HP PRN shortness of breath or wheezing #360 mL ibuprofen 400 mg tablet 400 mg PO Q4HR PRN Pain, Mild 11/16/22 (1-3) #60 tabs albuterol sulfate 90 mcg/actuation 1 inh inhalation Q4-6H PRN 12/27/22 aerosol inhaler shortness of breath #18 grams omeprazole 40 mg capsule,delayed 40 mg PO DAILY #90 caps 01/01/23 release lidocaine 5 % topical patch 2 patch topical DAILY #30 ea 01/08/23 ketoconazole 2 % topical cream 1 applic topical BID #30 grams 02/08/23 potassium chloride 20 mEq 20 meq PO BID #10 tabs 02/26/23 tablet,extended release ipratropium 0.5 mg-albuterol 3 mg 3 ml inhalation Q6H PRN shortness 03/19/23 (2.5 mg base)/3 mL nebulization of breath or wheezing #90 mL soln nitroglycerin 0.4 mg sublingual 0.4 mg sublingual Q5M PRN chest 03/28/23 tablet pain #20 tabs hydromorphone 2 mg tablet 2 mg PO BEDTIME PRN pain #30 tabs 07/01/23 oxycodone 10 mg tablet 10 mg PO TID PRN pain #84 tabs 07/01/23 metoprolol succinate 100 mg 100 mg PO DAILY #90 tabs 07/11/23 tablet,extended release 24 hr prednisone 10 mg tablet 10 mg PO DAILY #30 tabs 07/13/23 Allergies Allergy/AdvReac Type Severity Reaction Status Date / Time cyclobenzaprine Allergy Severe Dizziness, Verified 07/11/23 18:37 [From Flexeril] I bounce off ag acetaminophen [ACETAMINOPHEN] AdvReac Unknown Can't take Verified 07/11/23 18:37 r/t Hep C; upset stomach Review of Systems <Carie Santana MD - Last Filed: 07/13/23 18:00> Review of Systems Narrative: CONSTITUTIONAL- Denies: fever, chills, fatigue HEENT- Denies: sore throat, nosebleed, vision changes RESPIRATORY- Denies: shortness of breath, cough, wheezing CARDIAC- Denies: chest pain, edema, orthopnea GI- Denies: abdominal pain, nausea, vomiting, constipation, diarrhea - Denies: frequency, dysuria, hematuria, flank pain MSK-reports: Left hip pain Denies: extremity pain, extremity swelling SKIN- Denies: rash, itching, burn, swelling NEUROLOGICAL- Denies: headache, numbness, weakness, dizziness PSYCHIATRIC- Denies: anxiety, depression, suicidal ideation, homicidal ideation Patient History <Carie Santana MD - Last Filed: 07/13/23 18:00> Medical History Abdominal wall pain in both lower quadrants Acute exacerbation of chronic bronchitis Adhesive capsulitis Aftercare following left shoulder joint replacement surgery Anemia Anxiety Arthritis (Unknown) Chronic ankle pain, bilateral Chronic pain syndrome (Unknown) Colles' fracture Constipation Depression (Unknown) Dyspepsia Eustachian tube dysfunction Fibromyalgia Foraminal stenosis of lumbar region Hepatitis C (Unknown) Hypertension (Unknown) Impotence (Unknown) Kidney stones (Unknown) Left lateral epicondylitis Left shoulder strain Migraines (Unknown) Oral lesion Peripheral neuropathy Pneumonia (~2018) Preoperative clearance Prostate cancer (Unknown) PTSD (post-traumatic stress disorder) (Unknown) Restless leg syndrome (Unknown) Rheumatoid arthritis Right wrist pain Right wrist sprain Seasonal allergic rhinitis Sinus drainage Skin cancer (Unknown) Tinea Surgical History History of ankle surgery History of back surgery History of carpal tunnel repair History of lumbar fusion History of lumbar fusion (05/10/22) History of prosthetic unicompartmental arthroplasty of right knee History of tonsillectomy History of total replacement of right shoulder joint Hx of foot surgery Hx of laminectomy (10/2012) S/P lumbar fusion Status post cholecystectomy Status post knee surgery Family History Father Heart disease Mother No problems noted. Social History marital status: household members: spouse lives independently: Yes occupational status: previously employed Smoking Status: Former smoker Tobacco: How many years used: 20 quit status: has quit before alcohol intake: former substance use type: former substance user and marijuana Smoking Status: Former smoker tobacco type: cigarettes alcohol intake frequency: 0-2 drinks per day Substance Use Type: does not use Exam <Carie Santana MD - Last Filed: 07/13/23 18:00> Initial Vital Signs Initial Vital Signs: Vital Signs Pulse Rate 77 07/13/23 16:38 Pulse Oximetry 98 07/13/23 16:38 Const: Awake, alert, debilitated, frail, chronically unwell appearing Eyes: PERRL, EOMI, conjunctiva normal ENT: Atraumatic, dentition normal, mucous membranes moist Cardiac: regular rate, regular rhythm RESP: unlabored, clear bilaterally, no wheezing GI: Atraumatic, soft, nontender, nondistended, no rebound, no guarding MSK: No obvious deformity, tenderness to palpation over trochanteric region Skin: Warm, Dry, intact, no rashes Neuro: AO x3, CN II-XII grossly intact, moves all extremities Psych: affect normal, mood normal, not suicidal, not homicidal <Sheila Rider DO - Last Filed: 07/13/23 20:23> Initial Vital Signs Initial Vital Signs: Vital Signs Pulse Rate 77 07/13/23 16:38 Pulse Oximetry 98 07/13/23 16:38 Course <Carie Santana MD - Last Filed: 07/13/23 18:00> Course Course Narrative: Slip and fall with left hip pain. Patient denies hitting his head, denies loss of consciousness, denies use of blood thinners. We will obtain x-ray imaging of the hip. Oral medications for pain ordered. Orders Ordered: ED Orders 07/13/23 16:44 XR femur LT min 2V Stat XR hip w pel if done LT 2V Stat Discontinued Medications Oxycodone HCl (Oxycodone Ir 5 Mg Tablet) 5 mg PO NOW ONE Stop: 07/13/23 17:03 Last Admin: 07/13/23 17:07 Dose: 5 mg Documented By: NBA Oxycodone HCl (Oxycodone Ir 5 Mg Tablet) 5 mg PO NOW ONE Stop: 07/13/23 18:39 Last Admin: 07/13/23 18:43 Dose: 5 mg Documented By: GITA Prednisone (Prednisone 20 Mg Tablet) 40 mg PO NOW ONE Stop: 07/13/23 18:38 Last Admin: 07/13/23 18:43 Dose: 40 mg Documented By: GITA Reevaluation(s) Reevaluation #1: Preliminary review of x-ray imaging shows no obvious acute pathology. Care of patient is signed out to Dr. Rider at 1800 Vital Signs Vital signs: Vital Signs - 8 hr 07/13/23 16:46 07/13/23 16:38 07/13/23 16:39 Temperature 97.9 F Pulse Rate 70 77 Respiratory Rate 18 Blood Pressure 169/88 H 169/88 H Pulse Oximetry 98 98 Oxygen Delivery Method Room Air 07/13/23 16:39 07/13/23 17:00 07/13/23 17:13 Temperature Pulse Rate 74 70 71 Respiratory Rate Blood Pressure 186/86 H Pulse Oximetry 98 98 98 Oxygen Delivery Method 07/13/23 17:13 07/13/23 17:21 07/13/23 17:21 Temperature Pulse Rate 71 Respiratory Rate Blood Pressure 186/86 H 140/65 Pulse Oximetry 98 Oxygen Delivery Method 07/13/23 17:42 07/13/23 18:55 Temperature 98 F Pulse Rate 71 74 Respiratory Rate 18 Blood Pressure 135/78 Pulse Oximetry 98 97 Oxygen Delivery Method Room Air <Sheila Rider, - Last Filed: 07/13/23 20:23> Orders Ordered: ED Orders 07/13/23 16:44 XR femur LT min 2V Stat XR hip w pel if done LT 2V Stat Discontinued Medications Oxycodone HCl (Oxycodone Ir 5 Mg Tablet) 5 mg PO NOW ONE Stop: 07/13/23 17:03 Last Admin: 07/13/23 17:07 Dose: 5 mg Documented By: NBA Oxycodone HCl (Oxycodone Ir 5 Mg Tablet) 5 mg PO NOW ONE Stop: 07/13/23 18:39 Last Admin: 07/13/23 18:43 Dose: 5 mg Documented By: GITA Prednisone (Prednisone 20 Mg Tablet) 40 mg PO NOW ONE Stop: 07/13/23 18:38 Last Admin: 07/13/23 18:43 Dose: 40 mg Documented By: GITA Vital Signs Vital signs: Vital Signs - 8 hr 07/13/23 16:46 07/13/23 16:38 07/13/23 16:39 Temperature 97.9 F Pulse Rate 70 77 Respiratory Rate 18 Blood Pressure 169/88 H 169/88 H Pulse Oximetry 98 98 Oxygen Delivery Method Room Air 07/13/23 16:39 07/13/23 17:00 07/13/23 17:13 Temperature Pulse Rate 74 70 71 Respiratory Rate Blood Pressure 186/86 H Pulse Oximetry 98 98 98 Oxygen Delivery Method 07/13/23 17:13 07/13/23 17:21 07/13/23 17:21 Temperature Pulse Rate 71 Respiratory Rate Blood Pressure 186/86 H 140/65 Pulse Oximetry 98 Oxygen Delivery Method 07/13/23 17:42 07/13/23 18:55 Temperature 98 F Pulse Rate 71 74 Respiratory Rate 18 Blood Pressure 135/78 Pulse Oximetry 98 97 Oxygen Delivery Method Room Air <Sheila Rider, DO - Last Filed: 07/13/23 20:23> Imaging Data Extremity x-ray #1: Radiologist's Impression: PROCEDURE:? XR FEMUR LT MIN 2V ? INDICATIONS:? glf, pain ? TECHNIQUE:? 4 views of the femur were acquired.? ? COMPARISON:? None. ? FINDINGS:? ? Bones:? No fractures or dislocations.? No suspicious bony lesions.? Partially visualized pubic fixation hardware with a fracture component.? ? Soft tissues:? No suspicious soft tissue calcifications or masses.? Multiple surgical clips projecting over the partially visualized pelvis. ? ? IMPRESSION:? No acute fracture or dislocation. ? ? Dictated by: Hebert San M.D. on 07/13/2023 at 18:09 ? ? Extremity x-ray #2: Radiologist's Impression: PROCEDURE:? XR HIP W PEL IF DONE LT 2V ? INDICATIONS:? glf, pain ? TECHNIQUE:? AP pelvis with lateral view(s) of the left hip(s).? ? COMPARISON:? None. ? FINDINGS:? ? Bones:? No fractures or dislocations.? Pubic symphysis fixation hardware in place.? There is a fracture of the plate hardware.? Right iliac bone fixation appears intact.? Partially visualized lumbar spinal fixation hardware.? Possible lucency surrounding the right L4 pedicle screw.? No suspicious bony lesions.? ? Soft tissues:? The visualized bowel gas pattern is normal.? No suspicious soft tissue calcifications.? ? ? IMPRESSION:? ? 1. No acute fractures or dislocations. 2. Pubic symphysis fixation hardware with fracture of the plate component. 3. Partially visualized lumbar spinal hardware with possible lucency surrounding the right L4 pedicle screw. ? Dictated by: Hebert San M.D. on 07/13/2023 at 18:12 ? ? Approved by: Hebert San M.D. on 07/13/2023 at 18:14 ? MDM Narrative Medical decision making narrative: Patient signed out to me by Dr. Santana seen evaluated patient myself. I have reviewed his chart multiple visits to the ED along with primary care right notes. He is chronic pain on oxycodone 10 mg 3 times daily he reports that he is down to 2 pills his prescription was just refilled in his supposed to last him until July 29. He reports that he does have a history of rheumatoid arthritis he is not currently taking prednisone. Today he reports that he went down a small step when his left knee gave out and he landed on his bottom. X-rays today are negative. He is good distal pedal pulse in his foot he is able to flex and extend his knee. He gets sharp shooting pain down his leg that come and go consistent with neuropathy. In the past 3 days he has had multiple CTs head lumbar spine cervical spine blood work viral panel significant workup without any sort of etiology. It all started when he 1st sprained his wrist June 28. He has chronic urinary incontinence secondary to prostatectomy. No concerning symptoms at this time for cauda equina X-rays today have been reviewed and are negative. He has been given oxycodone in the ED and started on prednisone. I have instructed him that if he needs more oxycodone he needs to follow-up with PCP prescription will not be given out here in the ER. The patient has cane and walker at home. He is offered a knee brace reports that he has 1 at home Discharge Plan Departure Patient Disposition: Home Clinical Impression: Acute exacerbation of chronic low back pain, Neuropathy Instructions: How to Prevent Falls Activity Restrictions/Additional Instructions: *You have been diagnosed with acute on chronic pain, neuropathy *What to do: At this time he will need to follow-up with your PCP in regards to more pain medication. However I think prednisone course may help you. *Continue to take medications as directed--> [facility] Prednisone 40 mg once daily for 3 days, 30 mg once daily for 3 days, 40 mg once daily was reduced, 10 mg once daily for 3 days *Follow up with your primary care provider in 2-3 days or call [phone] *Return to ER if you should have increasing numbness weakness, falling [or] any new, worsening or concerning symptoms Prescriptions: New prednisone 10 mg tablet 10 mg PO DAILY Qty: 30 0RF Rx Instructions: day 1-3: 40 mg once a day day 4-6: 30 mg once a day day 7-9: 20 mg once a day day 10-12: 10 mg once a day No Action fluoxetine 10 mg capsule See Rx Instructions .ROUTE .COMPLEX Qty: 90 3RF Dose Instruction: take 1 capsule by mouth once daily WITH 20MG CAP DAILY TOTAL 30 MG DAILY Rx Instructions: take 1 capsule by mouth once daily WITH 20MG CAP DAILY TOTAL 30 MG DAILY fluoxetine 20 mg capsule 20 mg PO DAILY Qty: 90 3RF Rx Instructions: Take with 10 mg to complete 30 mg dose albuterol sulfate 2.5 mg /3 mL (0.083 %) solution for nebulization 2.5 mg Continuous Nebulization Q6HP PRN (Reason: shortness of breath or wheezing) Qty: 360 2RF albuterol sulfate 90 mcg/actuation HFA aerosol inhaler 1 inh INHALATION Q4-6H PRN (Reason: shortness of breath) Qty: 18 4RF omeprazole 40 mg capsule,delayed release(DR/EC) 40 mg PO DAILY Qty: 90 3RF Rx Instructions: take 1 capsule by mouth once daily lidocaine 5 % adhesive patch,medicated 2 patch topical DAILY Qty: 30 1RF Rx Instructions: leave on most painful area for up to 12 hrs metoprolol succinate 100 mg tablet extended release 24 hr 100 mg PO DAILY Qty: 90 1RF hydromorphone 2 mg tablet 2 mg PO BEDTIME PRN (Reason: pain) Qty: 30 0RF Rx Instructions: Must last to July 29 2023 oxycodone 10 mg tablet 10 mg PO TID PRN (Reason: pain) Qty: 84 0RF Rx Instructions: Must last to July 29, 2023 ketoconazole 2 % cream 1 applic topical BID Qty: 30 1RF nitroglycerin 0.4 mg tablet, sublingual 0.4 mg sublingual Q5M PRN (Reason: chest pain) Qty: 20 1RF Rx Instructions: do not exceed 3 doses per episode potassium chloride 20 mEq tablet extended release 20 meq PO BID Qty: 10 0RF Disabled Parking Permit 1 1 % SEEINSTR Rx Instructions: Valid for 5 years sulfasalazine 500 mg tablet 1,000 mg PO BID amlodipine 5 mg tablet 5 mg PO BEDTIME Patient Comments: pt received dose in hospital 11/10/19 early AM admit to [facility] valacyclovir 1 gram tablet 1,000 mg PO Q8H PRN (Reason: Breakout) hydrochlorothiazide 25 mg tablet 12.5 mg PO QAM losartan 100 mg tablet 100 mg PO DAILY ibuprofen 400 mg Tablet 400 mg PO Q4HR PRN (Reason: Pain, Mild (1-3)) Qty: 60 0RF ipratropium-albuterol 0.5 mg-3 mg(2.5 mg base)/3 mL solution for nebulization 3 ml inhalation Q6H PRN (Reason: shortness of breath or wheezing) Qty: 90 0RF Referrals: Edilberto Snell DO [Primary Care Provider] - Stand Alone Forms: Patient Portal/API
[2023-07-13] MEDS: OXYCODONE IR 5 MG TABLET PO ×2 (17:07→18:43)
--- NOTE | 2023-07-13 17:16 | PC.NURSE ---
Pt states he takes 15mg Oxy 3x day. Last dose was roughly 4430-5879 today. Pt refused to go to xray without pain medicine. Pt given 5mg oxy to help with discomfort.
--- NOTE | 2023-07-13 17:48 | PC.NURSE ---
Patient used call light and states I'm still in pain. I take 10mg three times a day. This RN reassessed patient pain and informed provider. No new orders at this time.
[2023-07-13] MEDS: predniSONE 20 MG TABLET 40 MG PO (18:43)
== END 2023-07-13 18:56 | disposition home or self-care (01) ==
PROVIDERS: Emergency Provider Emergency Medicine; PCP Family Medicine
DX: M54.50 Low back pain, unspecified (principal); W18.30XA Fall on same level, unspecified, initial encounter; G62.9 Polyneuropathy, unspecified
CPT/HCPCS: 73502; 73552; 99283; 99284

== ENCOUNTER → 2023-07-23 10:53 | Outpatient (CLI) | payer MEDICARE, OTHER, SELFPAY ==
[2022-11-15 12:10] VITALS: BMI 30.8
[2023-07-23 11:51] LABS: Add Manual Diff / Slide Review NO; Basophils Absolute Auto 100 /uL (0-100); Basophils Percent Auto 0.8 % (0-2); Eosinophils Absolute Auto 100 /uL (0-450); Eosinophils Percent Auto 1.1 % (2-4); Hematocrit 31.5 % (41-53); Hemoglobin 10.9 g/dL (13.5-17.5); Lymphocytes Absolute Auto 1100 /uL (1100-4500); Lymphocytes Percent Auto 10.3 % (25-40); Mean Corpuscular HGB Conc 34.5 % (30-36); Mean Corpuscular Hemoglobin 26.7 PG (26-34); Mean Corpuscular Volume 77.5 fL (80-100); Monocytes Absolute Auto 800 /uL (0-900); Monocytes Percent Auto 7.9 % (3-14); Neutrophils Absolute Auto 8200 /uL (1500-7000); Neutrophils Percent Auto 79.9 % (50-75); Platelet Count 320 X10^3/uL (150-400); Red Blood Cell Count 4.07 X10^6/uL (4.5-5.9); Red Cell Distribution Width 15.6 % (11.6-14.8); White Blood Cell Count 10.3 X10^3/uL (4.5-11.0)
[2023-07-23 12:06] LABS: Alanine Aminotransferase 17 IU/L (<50); Albumin 3.9 g/dL (3.5-5.0); Albumin Globulin Ratio 1.2 (1.0-2.8); Alkaline Phosphatase 70 U/L (38-126); Aspartate Aminotransferase 22 IU/L (17-59); BUN Creatinine Ratio 23.2 (6-22); Bilirubin Total 0.6 mg/dL (0.2-1.3); Blood Urea Nitrogen 13 mg/dL (9-20); Calcium 9.2 mg/dL (8.4-10.2); Carbon Dioxide 27 mmol/L (22-32); Chloride 96 mmol/L (98-107); Estimated Glomerular Filt Rate > 60 mL/min (>60); Globulin 3.2 g/dL (1.7-4.1); Glucose 156 mg/dL (80-110); HEMOLYSIS < 15 (0-50); Potassium 3.6 mmol/L (3.4-5.1); Sodium 133 mmol/L (137-145); Total Protein 7.1 g/dL (6.3-8.2); Uric Acid 4.7 mg/dL (3.5-8.5)
[2023-07-23 12:21] LABS: HEMOLYSIS < 15 (0-50); Iron 29 ug/dL (49-181)
[2023-07-23 12:32] LABS: Percent Iron Saturation 9 % (20-50); Total Iron Binding Capacity 306 ug/dL (261-462); Transferrin 205 mg/dL (206-381)
[2023-07-23 12:52] LABS: Vitamin B12 200 pg/mL (239-931)
[2023-07-23 12:57] LABS: Erythrocyte Sedimentation Rate 1 MM/HR (0-15)
== END ==
PROVIDERS: PCP Family Medicine; Referring Provider Family Medicine; Visit Provider Family Medicine
DX: E87.6 Hypokalemia (principal); M54.16 Radiculopathy, lumbar region; D64.9 Anemia, unspecified; M79.89 Other specified soft tissue disorders; M06.9 Rheumatoid arthritis, unspecified; G62.9 Polyneuropathy, unspecified
CPT/HCPCS: 36415; 80053; 82607; 83540; 83550; 84550; 85025; 85651

== ENCOUNTER 2023-09-02 15:35 | Emergency (ER) | payer MEDICARE, OTHER, SELFPAY ==
[2022-11-15 12:10] VITALS: BMI 30.8
[2023-09-02] VITALS (15 sets, daily range): BP systolic 182–234; BP diastolic 88–114; PULSE 68–88; RESP 15–26; TEMP 37.1; O2SAT 95–100
--- NOTE | 2023-09-02 15:56 | DI.CT.S_ITS ---
PROCEDURE: CT ABDOMEN PELVIS W CON INDICATIONS: LUQ abdominal pain TECHNIQUE: After the administration of intravenous contrast, axial sections acquired from the lung bases to the pubic symphysis. Coronal and sagittal reformats were performed. For radiation dose reduction, the following was used: automated exposure control, adjustment of mA and/or kV according to patient size. COMPARISON: [facility], CT, CT ABDOMEN PELVIS W CON, 12/11/2022, 19:33. FINDINGS: Image quality: Good, but there is metallic artifact. Lower chest: Small pulmonary nodules again seen, partially visualized normal heart size. Solid organs: Possible hepatic steatosis. Cholecystectomy clips. No pathologic dilation of the biliary system or pancreatic duct. There are splenic granulomas. Possible small right adrenal nodule is again seen, versus thickening. No hydronephrosis. No solid renal mass requiring follow-up. Vessels and lymph nodes: The main portal vein appears patent. No abdominal aortic aneurysm or pathologic lymph nodes by size criteria. Bowel and peritoneum: No evidence of small bowel obstruction. No pathologic ascites or drainable abscess. The appendix is nondilated. Body wall: Postsurgical changes of the anterior abdominal wall. Pelvis: Again seen are noninflamed appearing fluid collections adjacent to the inguinal regions, similar to prior, probably lymphoceles or seromas. Bladder is unremarkable. Postsurgical changes partially seen of the reproductive organs. Bones: Postsurgical pelvic and lumbar spine changes. Degenerative findings. IMPRESSION: No acute changes compared to prior imaging. Other stable postsurgical, and incidental findings above. Dictated by: Todd Gage M.D. on 09/02/2023 at 17:30 Approved by: Todd Gage M.D. on 09/02/2023 at 17:36
[2023-09-02] MEDS: MORPHINE 4 MG/ML INJ IV (16:50)
[2023-09-02] MEDS: ONDANSETRON 4 MG/2 ML INJ IV (16:50)
[2023-09-02] MEDS: PANTOPRAZOLE 40 MG VIAL 20 MG IV (16:51)
[2023-09-02] MEDS: MAG HYDROX/ALUM/SIMETH 30 ML UDC PO (16:51)
[2023-09-02] MEDS: LIDOCAINE VISCOUS 2% 15 ML SOLUTION PO (16:51)
[2023-09-02 16:52] LABS: Add Manual Diff / Slide Review NO; Basophils Absolute Auto 100 /uL (0-100); Basophils Percent Auto 0.9 % (0-2); Eosinophils Absolute Auto 200 /uL (0-450); Eosinophils Percent Auto 1.9 % (2-4); Hematocrit 33.8 % (41-53); Hemoglobin 11.3 g/dL (13.5-17.5); Lymphocytes Absolute Auto 1400 /uL (1100-4500); Lymphocytes Percent Auto 17.6 % (25-40); Mean Corpuscular HGB Conc 33.6 % (30-36); Mean Corpuscular Hemoglobin 25.8 PG (26-34); Mean Corpuscular Volume 76.9 fL (80-100); Monocytes Absolute Auto 1000 /uL (0-900); Monocytes Percent Auto 13.2 % (3-14); Neutrophils Absolute Auto 5200 /uL (1500-7000); Neutrophils Percent Auto 66.4 % (50-75); Platelet Count 358 X10^3/uL (150-400); Red Blood Cell Count 4.39 X10^6/uL (4.5-5.9); Red Cell Distribution Width 16.6 % (11.6-14.8); White Blood Cell Count 7.8 X10^3/uL (4.5-11.0)
[2023-09-02 17:00] LABS: Alanine Aminotransferase 14 IU/L (<50); Albumin 4.2 g/dL (3.5-5.0); Albumin Globulin Ratio 1.1 (1.0-2.8); Alkaline Phosphatase 86 U/L (38-126); Aspartate Aminotransferase 23 IU/L (17-59); BUN Creatinine Ratio 14.1 (6-22); Bilirubin Total 0.5 mg/dL (0.2-1.3); Blood Urea Nitrogen 9 mg/dL (9-20); Calcium 9.4 mg/dL (8.4-10.2); Carbon Dioxide 28 mmol/L (22-32); Chloride 102 mmol/L (98-107); Estimated Glomerular Filt Rate > 60 mL/min (>60); Glucose 101 mg/dL (80-110); HEMOLYSIS < 15 (0-50); Lipase 80 U/L (23-300); Potassium 3.1 mmol/L (3.4-5.1); Sodium 138 mmol/L (137-145); Total Protein 8.2 g/dL (6.3-8.2)
[2023-09-02] MEDS: POTASSIUM CHLORIDE IN WATER 10 MEQ/100 ML PIGGYBACK 100 MEQ IV (17:45)
[2023-09-02] MEDS: SODIUM CHLORIDE 0.9% 1,000 ML 1000 ML IV (17:45)
[2023-09-02] MEDS: HYDROMORPHONE 1 MG INJ IV ×2 (18:00→19:24)
--- NOTE | 2023-09-02 18:07 | PC.NURSE ---
At 1755 pt developed 7/10 left sided chest pain, Systolic BP >200. Dr. Lugo aware, EKG and troponin ordered.
[2023-09-02 18:18] LABS: Creatine Kinase 49 U/L (55-170)
[2023-09-02 18:31] LABS: Troponin I 0.026 ng/mL (0.01-0.034)
--- NOTE | 2023-09-02 18:35 | ED.GENADULT ---
HPI - General Adult General Chief complaint: Abdominal Pain Stated complaint: sent by [facility], pain in L/side Time Seen by Provider: 09/02/23 15:48 Source: patient Mode of arrival: Ambulatory History of Present Illness HPI narrative: 77-year-old gentleman with multiple medical problems and significant chronic pain issues, hypertension, PTSD, coronary artery disease presents today complaining of left posterior flank pain that has been present for 4 days. He notes that he is had some watery diarrhea that seems worse than his chronic diarrhea concurrent with the onset of the left upper flank pain. He describes no fevers, cough, chest pain, palpitations. The pain is described as fairly superficial and even gentle touching to the skin seems to exacerbate the pain. Related Data Home Medications Medication Instructions Recorded Confirmed Disabled Parking Permit 1 % SEEINSTR 11/08/20 08/29/23 amlodipine 5 mg tablet 5 mg PO BEDTIME 11/08/22 08/29/23 valacyclovir 1 gram tablet 1,000 mg PO Q8H PRN Breakout 11/08/22 08/29/23 hydrochlorothiazide 25 mg tablet 12.5 mg PO QAM 11/15/22 08/29/23 losartan 100 mg tablet 100 mg PO DAILY 11/15/22 08/29/23 Previous Rx's Medication Instructions Recorded fluoxetine 10 mg capsule See Rx Instructions .Route 08/14/22 .COMPLEX #90 caps fluoxetine 20 mg capsule 20 mg PO DAILY #90 caps 08/14/22 albuterol sulfate 2.5 mg/3 mL 2.5 mg (3 mL) continuous 10/24/22 (0.083 %) solution for nebulization nebulization Q6HP PRN shortness of breath or wheezing #360 mL ibuprofen 400 mg tablet 400 mg PO Q4HR PRN Pain, Mild 11/16/22 (1-3) #60 tabs albuterol sulfate 90 mcg/actuation 1 inh inhalation Q4-6H PRN 12/27/22 aerosol inhaler shortness of breath #18 grams omeprazole 40 mg capsule,delayed 40 mg PO DAILY #90 caps 01/01/23 release lidocaine 5 % topical patch 2 patch topical DAILY #30 ea 01/08/23 ketoconazole 2 % topical cream 1 applic topical BID #30 grams 02/08/23 potassium chloride 20 mEq 20 meq PO BID #10 tabs 02/26/23 tablet,extended release ipratropium 0.5 mg-albuterol 3 mg 3 ml inhalation Q6H PRN shortness 03/19/23 (2.5 mg base)/3 mL nebulization of breath or wheezing #90 mL soln nitroglycerin 0.4 mg sublingual 0.4 mg sublingual Q5M PRN chest 03/28/23 tablet pain #20 tabs metoprolol succinate 100 mg 100 mg PO DAILY #90 tabs 07/11/23 tablet,extended release 24 hr prednisone 10 mg tablet 10 mg PO DAILY #30 tabs 07/13/23 prednisone 5 mg tablet 5 mg PO DAILY #5 tabs 07/23/23 sulfasalazine 500 mg tablet 1,000 mg (2 x 500 mg) PO BID #180 07/23/23 tabs hydromorphone 2 mg tablet 2 mg PO BEDTIME PRN pain #30 tabs 08/06/23 meloxicam 15 mg tablet 15 mg PO DAILY #30 tabs 08/13/23 methocarbamol 750 mg tablet 750 mg PO QID #56 tabs 08/13/23 oxycodone 10 mg tablet 10 mg PO TID PRN pain #90 tabs 08/27/23 lidocaine 5 % topical patch 1 patch topical DAILY #30 ea 09/02/23 oxycodone 10 mg tablet 10 mg PO Q8H PRN pain #10 tabs 09/02/23 valacyclovir 1 gram tablet 1,000 mg PO TID #30 tabs 09/02/23 Allergies Allergy/AdvReac Type Severity Reaction Status Date / Time cyclobenzaprine Allergy Severe Dizziness, Verified 09/02/23 16:00 [From Flexeril] I bounce off ag acetaminophen [ACETAMINOPHEN] AdvReac Unknown Can't take Verified 09/02/23 16:00 r/t Hep C; upset stomach Review of Systems Review of Systems Narrative: Pertinent positive and negative findings as per HPI Patient History Medical History Chronic diarrhea Eustachian tube dysfunction Seasonal allergic rhinitis Dyspepsia Anemia Tinea Abdominal wall pain in both lower quadrants Constipation Aftercare following left shoulder joint replacement surgery Preoperative clearance Left lateral epicondylitis Adhesive capsulitis Right wrist sprain Oral lesion Colles' fracture Right wrist pain Left shoulder strain Anxiety Fibromyalgia Sinus drainage Chronic ankle pain, bilateral Rheumatoid arthritis Acute exacerbation of chronic bronchitis Foraminal stenosis of lumbar region Peripheral neuropathy Pneumonia (~2018) Impotence (Unknown) Restless leg syndrome (Unknown) Arthritis (Unknown) Chronic pain syndrome (Unknown) Kidney stones (Unknown) Prostate cancer (Unknown) Skin cancer (Unknown) Hepatitis C (Unknown) Hypertension (Unknown) Migraines (Unknown) PTSD (post-traumatic stress disorder) (Unknown) Depression (Unknown) Surgical History S/P lumbar fusion History of lumbar fusion (05/10/22) History of ankle surgery 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 Social History marital status: household members: spouse lives independently: Yes occupational status: previously employed Smoking Status: Former smoker Tobacco: How many years used: 20 quit status: has quit before alcohol intake: former substance use type: former substance user and marijuana Smoking Status: Former smoker tobacco type: cigarettes alcohol intake frequency: 0-2 drinks per day Substance Use Type: does not use Exam Initial Vital Signs Initial Vital Signs: Vital Signs Temperature 98.7 F 09/02/23 15:47 Pulse Rate 88 09/02/23 15:47 Respiratory Rate 17 09/02/23 15:47 Blood Pressure 196/108 H 09/02/23 15:47 Pulse Oximetry 100 09/02/23 15:47 Oxygen Delivery Method Room Air 09/02/23 15:47 General: Chronically ill-appearing, mild distress secondary to pain Able to give a complete and coherent history. Well-nourished well-developed HEENT: Moist mucous membranes, normal sclera with reactive pupils, Respiratory: Lungs are clear to auscultation, no wheezing no rales no rhonchi. Full and symmetrical air movement Cardiac: Regular rate and rhythm no murmurs no bruits Thorax: With palpation along the thoracic spine there is no obvious point tenderness, redness or suggestion for infection Abdomen: Soft, nontender, specifically no tenderness to palpation in the pelvis deep left lower quadrant or left upper quadrant, good bowel tones. He has tenderness very superficially in a T7 distribution on the left side. This is higher than actual flank pain, it is not made worse with deep breathing any has no rhonchi or crackles in this area. Skin: Warm and dry, no rashes-particularly in the area of concern Neurologic: Grossly neurologically intact with no obvious asymmetries or abnormalities Extremities: No lower extremity edema Psych: Cooperative, appropriate insight and affect Course Orders Ordered: ED Orders 09/02/23 15:46 EKG-12 Lead Stat 09/02/23 15:56 CT abdomen pelvis w con Stat 09/02/23 16:35 Complete Blood Count AUTO DIFF Stat Comprehensive Metabolic Panel Stat Lipase Stat Troponin & CK Cardiac Panel Stat 09/02/23 18:07 EKG-12 Lead Stat POTASSIUM CHLORIDE IN WATER (Potassium Cl 10 Meq/100 Ml Majo) 10 meq in 100 mls @ 100 mls/hr IV Q1H BENJAMÍN Stop: 09/02/23 21:14 Last Admin: 09/02/23 17:45 Dose: 100 mls/hr Documented By: RAIN Ondansetron HCl (Ondansetron 4 Mg Odt) 4 mg PO NOW PRN PRN Reason: Nausea And Vomiting Ondansetron HCl (Ondansetron 4 Mg/2 Ml Inj) 4 mg IV NOW PRN PRN Reason: Nausea And Vomiting Discontinued Medications Al Hydrox/Mg Hydrox/Simethicone (Mag Hydrox/Alum/Simeth 30 Ml Udc) 30 ml PO NOW ONE Stop: 09/02/23 16:43 Last Admin: 09/02/23 16:51 Dose: 30 ml Documented By: JESUS Hydromorphone HCl (Hydromorphone 1 Mg Inj) 1 mg IV NOW ONE Stop: 09/02/23 17:57 Last Admin: 09/02/23 18:00 Dose: 1 mg Documented By: RAIN Sodium Chloride (Normal Saline 0.9%) 1,000 mls @ 1,000 mls/hr IV BOLUS ONE Stop: 09/02/23 18:05 Last Admin: 09/02/23 17:45 Dose: 1,000 mls/hr Documented By: RAIN Lidocaine HCl (Lidocaine Viscous 2% 15 Ml Solution) 15 ml PO NOW ONE Stop: 09/02/23 16:43 Last Admin: 09/02/23 16:51 Dose: 15 ml Documented By: ES Morphine Sulfate (Morphine 4 Mg/Ml Inj) 4 mg IV NOW ONE Stop: 09/02/23 16:43 Last Admin: 09/02/23 16:50 Dose: 4 mg Documented By: ES Ondansetron HCl (Ondansetron 4 Mg/2 Ml Inj) 4 mg IV NOW ONE Stop: 09/02/23 16:43 Last Admin: 09/02/23 16:50 Dose: 4 mg Documented By: ES Pantoprazole Sodium (Pantoprazole 40 Mg Vial) 20 mg IV NOW ONE Stop: 09/02/23 16:43 Last Admin: 09/02/23 16:51 Dose: 20 mg Documented By: JESUS Vital Signs Vital signs: Vital Signs - 8 hr 09/02/23 15:47 09/02/23 17:19 09/02/23 17:30 Temperature 98.7 F Pulse Rate 88 73 78 Respiratory Rate 17 Blood Pressure 196/108 H Pulse Oximetry 100 98 98 Oxygen Delivery Method Room Air 09/02/23 17:52 09/02/23 17:52 09/02/23 18:00 Temperature Pulse Rate 70 73 Respiratory Rate 26 H 23 Blood Pressure 182/88 H Pulse Oximetry 98 97 Oxygen Delivery Method 09/02/23 18:01 09/02/23 18:01 09/02/23 18:30 Temperature Pulse Rate 72 69 Respiratory Rate 26 H 15 Blood Pressure 202/95 H Pulse Oximetry 96 95 Oxygen Delivery Method 09/02/23 18:30 Temperature Pulse Rate Respiratory Rate Blood Pressure 197/88 H Pulse Oximetry Oxygen Delivery Method Medical Decision Making Lab Data 09/02/23 16:35 09/02/23 16:35 Labs: Lab Results 09/02/23 Range/Units 16:35 WBC 7.8 (4.5-11.0) X10^3/uL RBC 4.39 L (4.5-5.9) X10^6/uL Hgb 11.3 L (13.5-17.5) g/dL Hct 33.8 L (41-53) % MCV 76.9 L (80-100) fL MCH 25.8 L (26-34) PG MCHC 33.6 (30-36) % RDW 16.6 H (11.6-14.8) % Plt Count 358 (150-400) X10^3/uL Neut % (Auto) 66.4 (50-75) % Lymph % (Auto) 17.6 L (25-40) % Heard % (Auto) 13.2 (3-14) % Eos % (Auto) 1.9 L (2-4) % Baso % (Auto) 0.9 (0-2) % Neut # (Auto) 5200 (2544-5087) /uL Lymph # (Auto) 1400 (7828-3389) /uL Heard # (Auto) 1000 H (0-900) /uL Eos # (Auto) 200 (0-450) /uL Baso # (Auto) 100 (0-100) /uL Sodium 138 (137-145) mmol/L Potassium 3.1 L (3.4-5.1) mmol/L Chloride 102 (98-107) mmol/L Carbon Dioxide 28 (22-32) mmol/L BUN 9 (9-20) mg/dL Creatinine 0.64 L (0.66-1.25) mg/dL Estimated GFR > 60 (>60) mL/min BUN/Creatinine Ratio 14.1 (6-22) Glucose 101 (80-110) mg/dL Calcium 9.4 (8.4-10.2) mg/dL Total Bilirubin 0.5 (0.2-1.3) mg/dL AST 23 (17-59) IU/L ALT 14 (<50) IU/L Alkaline Phosphatase 86 (38-126) U/L Total Creatine Kinase 49 L (55-170) U/L Troponin I 0.026 (0.01-0.034) ng/mL Total Protein 8.2 (6.3-8.2) g/dL Albumin 4.2 (3.5-5.0) g/dL Globulin 4.0 (1.7-4.1) g/dL Albumin/Globulin Ratio 1.1 (1.0-2.8) Lipase 80 (23-300) U/L MDM Narrative Medical decision making narrative: CC: Left-sided abdominal pain with watery diarrhea, no blood Complicating co-morbidities: Chronic diarrhea, chronic pain, coronary artery disease history of prostate cancer hypertension PTSD Data collected from: patient, Medical records reviewed:Primary care notes with multiple visits over the last number of months are reviewed Differential considered: Zoster, zoster prodrome, colitis, retroperitoneal abscess, diskitis or epidural abscess, pneumonia, pancreatitis, splenic abscess or splenic infarct Exam documented above, pertinent findings include: Exquisite very superficial tenderness left side in the very dermatomal distribution with no underlying deeper abdominal organ tenderness with palpation. Lab Test results independently reviewed as above. Pertinent findings: CBC is unremarkable, white count is 7.8, H&H is actually on the high side of his baseline at 11.3 and 33.8 Chemistries are notable for mild hypokalemia at 3.1, normal renal function. Liver studies are reassuring Troponin is undetectable Lipase is reassuring Independently reviewed EKG sinus rhythm at a rate of 69 with no evidence of ischemia, normal intervals, normal axis Imaging studies independently reviewed: CT scan of the abdomen with contrast does not show any acute findings. Specifically no retroperitoneal abnormalities, no pancreatitis, no colitis, no diverticulitis and no left-sided masses or bowel obstruction Treatments: Parenteral fluids, parenteral Zofran, narcotics Discussion: 77-year-old gentleman with a history of chronic diarrhea acute exacerbation with mild hypokalemia and severe superficial left-sided upper flank pain. At this point with thorough workup indicating no evidence of cardiac disease, intra-abdominal abscess, normal-appearing spleen, lower portion of his lung, pancreas, colon all in the affected area this may be related to his diarrhea however he does not have any abdominal pain on palpation. There is no midline thoracic tenderness, warmth or redness to suggested diskitis or an epidural abscess. I suspect that this is a shingles prodrome. Careful exam of the skin does not show any obvious rashes however he is exquisitely tender to gentle touch over the skin in a T7 distribution. Given the significant pain, the complications for this gentleman should he develop severe zoster and the benign nature of antivirals, I am going to start him on acyclovir 1 g 3 times a day for the next 10 days with the assumption that this is shingles prodrome. Will ask him to very carefully watch for a rash. He will need follow up with his primary care doctor in the next couple of days. He currently does get 10 mg of immediate release oxycodone and has permission to use 3 a day with prescription from his primary care doctor Dr. Snell. With the increased pain from his presumed zoster I am going to give him an additional 10 pills of 10 mg immediate release oxycodone to use as needed over the next couple of days. Discharge Plan Departure Patient Disposition: Home Clinical Impression: Herpes zoster Qualifiers: Herpes zoster complications: without complications Qualified Code(s): B02.9 - Zoster without complications Instructions: DI for Shingles Activity Restrictions/Additional Instructions: So sorry you are suffering with this pain today With the extraordinarily superficial and very painful lancinating nature of the pain and a workup that does not show any signs of infection or internal organ abnormalities, I suspect that this is shingles. Shingles will often have a very painful prodrome in the few days before the rash develops. At this time, with no alternate explanation for this pain I am going to recommend that we begin valve acyclovir. This is an antiviral medication, it has very few side effects so there is no downside to beginning this before we actually see the rash. For pain I am going to give you a prescription for lidocaine patches, these need to go close to your spine where the nerve is coming out. I am going to give you an additional 10 mg of oxycodone to supplement the 3 per day that you can take for your chronic pain as prescribed by Dr. Snell. All prescriptions have been electronically transmitted to [facility] Your potassium was slightly low in the emergency department, this is likely due to your chronic diarrhea. For that I have given you a dose of Imodium in the emergency department as well as IV and oral potassium. I do not think that you need any additional outpatient treatment for this If you find that you are getting worse or develop any new symptoms, please feel free to return to the emergency department for further evaluation. Prescriptions: New lidocaine 5 % adhesive patch,medicated 1 patch topical DAILY Qty: 30 0RF Rx Instructions: against spine T9 level for shingles pain oxycodone 10 mg tablet 10 mg PO Q8H PRN (Reason: pain) Qty: 10 0RF Rx Instructions: to augment chronic TID dosing due to shingles pain valacyclovir 1 gram tablet 1,000 mg PO TID Qty: 30 0RF No Action fluoxetine 10 mg capsule See Rx Instructions .ROUTE .COMPLEX Qty: 90 3RF Dose Instruction: take 1 capsule by mouth once daily WITH 20MG CAP DAILY TOTAL 30 MG DAILY Rx Instructions: take 1 capsule by mouth once daily WITH 20MG CAP DAILY TOTAL 30 MG DAILY fluoxetine 20 mg capsule 20 mg PO DAILY Qty: 90 3RF Rx Instructions: Take with 10 mg to complete 30 mg dose albuterol sulfate 2.5 mg /3 mL (0.083 %) solution for nebulization 2.5 mg Continuous Nebulization Q6HP PRN (Reason: shortness of breath or wheezing) Qty: 360 2RF albuterol sulfate 90 mcg/actuation HFA aerosol inhaler 1 inh INHALATION Q4-6H PRN (Reason: shortness of breath) Qty: 18 4RF omeprazole 40 mg capsule,delayed release(DR/EC) 40 mg PO DAILY Qty: 90 3RF Rx Instructions: take 1 capsule by mouth once daily lidocaine 5 % adhesive patch,medicated 2 patch topical DAILY Qty: 30 1RF Rx Instructions: leave on most painful area for up to 12 hrs metoprolol succinate 100 mg tablet extended release 24 hr 100 mg PO DAILY Qty: 90 1RF oxycodone 10 mg tablet 10 mg PO TID PRN (Reason: pain) Qty: 90 0RF Rx Instructions: Supplement to monthly fill ketoconazole 2 % cream 1 applic topical BID Qty: 30 1RF nitroglycerin 0.4 mg tablet, sublingual 0.4 mg sublingual Q5M PRN (Reason: chest pain) Qty: 20 1RF Rx Instructions: do not exceed 3 doses per episode hydromorphone 2 mg tablet 2 mg PO BEDTIME PRN (Reason: pain) Qty: 30 0RF Rx Instructions: Must last to July 29 2023 sulfasalazine 500 mg tablet 1,000 mg PO BID Qty: 180 1RF prednisone 5 mg tablet 5 mg PO DAILY Qty: 5 0RF Rx Instructions: Take once a day for 5 days meloxicam 15 mg tablet 15 mg PO DAILY Qty: 30 0RF methocarbamol 750 mg tablet 750 mg PO QID Qty: 56 0RF potassium chloride 20 mEq tablet extended release 20 meq PO BID Qty: 10 0RF Disabled Parking Permit 1 1 % SEEINSTR Rx Instructions: Valid for 5 years amlodipine 5 mg tablet 5 mg PO BEDTIME Patient Comments: pt received dose in hospital 11/10/19 early AM admit to valacyclovir 1 gram tablet 1,000 mg PO Q8H PRN (Reason: Breakout) hydrochlorothiazide 25 mg tablet 12.5 mg PO QAM losartan 100 mg tablet 100 mg PO DAILY ibuprofen 400 mg Tablet 400 mg PO Q4HR PRN (Reason: Pain, Mild (1-3)) Qty: 60 0RF ipratropium-albuterol 0.5 mg-3 mg(2.5 mg base)/3 mL solution for nebulization 3 ml inhalation Q6H PRN (Reason: shortness of breath or wheezing) Qty: 90 0RF prednisone 10 mg tablet 10 mg PO DAILY Qty: 30 0RF Rx Instructions: day 1-3: 40 mg once a day day 4-6: 30 mg once a day day 7-9: 20 mg once a day day 10-12: 10 mg once a day Referrals: Edilberto Snell, [Primary Care Provider] - Stand Alone Forms: Patient Portal/API
[2023-09-02] MEDS: POTASSIUM CHLORIDE 20 MEQ TAB 40 MEQ PO (19:25)
[2023-09-02] MEDS: LOPERAMIDE 2 MG CAPSULE 4 MG PO (19:26)
[2023-09-02] MEDS: LIDOCAINE PATCH 1 EACH ADH..PATCH TOP (19:26)
[2023-09-02] MEDS: LABETALOL 20 MG/4 ML SYRINGE 10 MG IV (19:50)
[2023-09-02] MEDS: AMLODIPINE 5 MG TABLET PO (19:51)
== END 2023-09-02 20:16 | disposition home or self-care (01) ==
PROVIDERS: Emergency Medicine; Emergency Provider Emergency Medicine; PCP Family Medicine
DX: B02.9 Zoster without complications (principal); R19.7 Diarrhea, unspecified; I10 Essential (primary) hypertension; Z87.891 Personal history of nicotine dependence
CPT/HCPCS: 36415; 74177; 80053; 82550; 83690; 84484; 85025; 93005; 93010; 96374; 96375; 96376; 99284; C9113; J1170; J2270; J2405; Q9967

== ENCOUNTER 2023-09-09 13:12 | Emergency (ER) | payer MEDICARE, OTHER, SELFPAY ==
[2022-11-15 12:10] VITALS: BMI 30.8
[2023-09-09 13:15] VITALS: BP 214/97; PULSE 92; RESP 20; TEMP 36.8; O2SAT 100; BMI 31.0
--- NOTE | 2023-09-09 13:41 | DI.RAD.S_ITS ---
PROCEDURE: XR RIBS LT MIN 3V W CXR1V INDICATIONS: Fall TECHNIQUE: 5 views of the left ribs were acquired, along with a single view chest. COMPARISON: None. FINDINGS: Surgical changes and devices: Partially visualized bilateral shoulder arthroplasty and thoracolumbar fusion hardware. Bones and chest wall: No fractures or dislocations. No suspicious bony lesions. Overlying soft tissues appear unremarkable. Lungs and pleura: No pleural effusions or pneumothorax. Lungs appear clear. Mediastinum: Mediastinal contours appear normal. Heart size is normal. IMPRESSION: No displaced rib fracture or pneumothorax. Dictated by: Dustin Kelly M.D. on 09/09/2023 at 15:17 Approved by: Dustin Kelly M.D. on 09/09/2023 at 15:18
--- NOTE | 2023-09-09 13:41 | DI.RAD.S_ITS ---
PROCEDURE: XR HIP W PEL IF DONE LT 2V INDICATIONS: Fall TECHNIQUE: Two views of the hip were acquired. COMPARISON: [facility], CR, XR HIP W PEL IF DONE LT 2V, 07/13/2023, 17:02. FINDINGS: Bones: No fractures or dislocations. ORIF of right iliac wing and pubic symphysis appears similar to the prior exam with stable fractured plate of the pubic symphysis. No suspicious bony lesions. Partially visualized lumbar spine fusion hardware appears similar to prior. The visualized pelvic ring appears intact. Soft tissues: No suspicious soft tissue calcifications or masses. Surgical clips in the pelvis. IMPRESSION: 1. No acute fracture or dislocation. If there is high clinical suspicion for a radiographically occult fracture, consider CT for further evaluation. 2. Stable pubic symphysis fixation hardware with fracture of the plate. 3. Stable appearance of the partially visualized lumbar fusion hardware. Dictated by: Dustin Kelly M.D. on 09/09/2023 at 15:15 Approved by: Dustin Kelly M.D. on 09/09/2023 at 15:17
[2023-09-09] MEDS: KETOROLAC 30 MG/ML VIAL IM (13:48)
--- NOTE | 2023-09-09 13:57 | ED_ITS ---
HPI - Back Pain/Injury <Steve Gloria PA-C - Last Filed: 09/09/23 19:03> General Chief Complaint: Back Pain/Injury Stated Complaint: slipped out of bed and hit L side of buttocks Time Seen by Provider: 09/09/23 13:24 Source: patient History of Present Illness HPI Narrative: 77-year-old male with past medical history chronic pain syndrome, hypertension, PTSD, CAD, hep C, rheumatoid arthritis, anemia presents to the ED status post a mechanical fall sustained just prior to arrival. Patient states that he was trying to sit on the edge of his bed when he slipped, falling onto a metal la. Patient states that his bottom stuck the metal la, however his pain is in the left hip and left lower ribs. Patient denies any other injuries. Patient is not on blood thinners. Patient denies chest pain, shortness of breath. Related Data Home Medications Medication Instructions Recorded Confirmed Disabled Parking Permit 1 % SEEINSTR 11/08/20 08/29/23 amlodipine 5 mg tablet 5 mg PO BEDTIME 11/08/22 08/29/23 valacyclovir 1 gram tablet 1,000 mg PO Q8H PRN Breakout 11/08/22 08/29/23 hydrochlorothiazide 25 mg tablet 12.5 mg PO QAM 11/15/22 08/29/23 losartan 100 mg tablet 100 mg PO DAILY 11/15/22 08/29/23 Previous Rx's Medication Instructions Recorded fluoxetine 10 mg capsule See Rx Instructions .Route 08/14/22 .COMPLEX #90 caps fluoxetine 20 mg capsule 20 mg PO DAILY #90 caps 08/14/22 albuterol sulfate 2.5 mg/3 mL 2.5 mg (3 mL) continuous 10/24/22 (0.083 %) solution for nebulization nebulization Q6HP PRN shortness of breath or wheezing #360 mL ibuprofen 400 mg tablet 400 mg PO Q4HR PRN Pain, Mild 11/16/22 (1-3) #60 tabs albuterol sulfate 90 mcg/actuation 1 inh inhalation Q4-6H PRN 12/27/22 aerosol inhaler shortness of breath #18 grams omeprazole 40 mg capsule,delayed 40 mg PO DAILY #90 caps 01/01/23 release lidocaine 5 % topical patch 2 patch topical DAILY #30 ea 03/28/23 ketoconazole 2 % topical cream 1 applic topical BID #30 grams 02/08/23 potassium chloride 20 mEq 20 meq PO BID #10 tabs 02/26/23 tablet,extended release ipratropium 0.5 mg-albuterol 3 mg 3 ml inhalation Q6H PRN shortness 03/19/23 (2.5 mg base)/3 mL nebulization of breath or wheezing #90 mL soln nitroglycerin 0.4 mg sublingual 0.4 mg sublingual Q5M PRN chest 03/28/23 tablet pain #20 tabs metoprolol succinate 100 mg 100 mg PO DAILY #90 tabs 07/11/23 tablet,extended release 24 hr sulfasalazine 500 mg tablet 1,000 mg (2 x 500 mg) PO BID #180 07/23/23 tabs meloxicam 15 mg tablet 15 mg PO DAILY #30 tabs 08/13/23 methocarbamol 750 mg tablet 750 mg PO QID #56 tabs 08/13/23 lidocaine 5 % topical patch 1 patch topical DAILY #30 ea 09/02/23 oxycodone 10 mg tablet 10 mg PO Q8H PRN pain #10 tabs 09/02/23 valacyclovir 1 gram tablet 1,000 mg PO TID #30 tabs 09/02/23 hydromorphone 2 mg tablet 2 mg PO BEDTIME PRN pain #30 tabs 09/04/23 Allergies Allergy/AdvReac Type Severity Reaction Status Date / Time cyclobenzaprine Allergy Severe Dizziness, Verified 09/02/23 16:00 [From Flexeril] I bounce off ag acetaminophen [ACETAMINOPHEN] AdvReac Unknown Can't take Verified 09/02/23 16:00 r/t Hep C; upset stomach Review of Systems <Steve Gloria PA-C - Last Filed: 09/09/23 19:03> Constitutional Constitutional: Denies chills, Denies fatigue, Denies fever(s), Denies frequent falls, Denies lethargy and Denies weakness Eyes Eyes: Denies change in vision, Denies eye discharge, Denies irritation and Denies loss of vision ENT Ears, Nose, Mouth, and Throat: Denies change in voice, Denies dizziness, Denies neck pain, Denies sore throat and Denies throat swelling Cardiovascular Cardiovascular: Denies chest pain, Denies irregular heart rhythm, Denies lightheadedness, Denies palpitations, Denies dyspnea, Denies dyspnea on exertion and Denies orthopnea Respiratory Respiratory: Denies cough, Denies dyspnea, Denies dyspnea on exertion and Denies wheezing Gastrointestinal Gastrointestinal: Denies abdominal pain, Denies change in bowel habits, Denies diarrhea, Denies nausea and Denies vomiting Musculoskeletal Musculoskeletal: Denies neck pain and Denies numbness Comments: Left-sided lower rib and hip pain Integumentary/Breasts Skin/Breast: Denies pruritus, Denies erythema, Denies rash and Denies wounds Neurologic Neurologic: Denies behavioral changes, Denies confusion, Denies dizziness, Denies frequent falls, Denies loss of vision, Denies numbness and Denies weakness Psychiatric Psychiatric: Denies anxiety, Denies behavioral changes, Denies confusion, Denies depression, Denies homicidal ideation and Denies suicidal ideation Endocrine Endocrine: Denies fatigue, Denies flushing and Denies palpitations Hematologic/Lymphatic Hematologic/Lymphatic: Denies easy bruising Allergic/Immunologic Allergic/Immunologic: Denies urticaria, Denies throat swelling and Denies wheezing Patient History <Steve Gloria PA-C - Last Filed: 09/09/23 19:03> Medical History Chronic diarrhea Eustachian tube dysfunction Seasonal allergic rhinitis Dyspepsia Anemia Tinea Abdominal wall pain in both lower quadrants Constipation Aftercare following left shoulder joint replacement surgery Preoperative clearance Left lateral epicondylitis Adhesive capsulitis Right wrist sprain Oral lesion Colles' fracture Right wrist pain Left shoulder strain Anxiety Fibromyalgia Sinus drainage Chronic ankle pain, bilateral Rheumatoid arthritis Acute exacerbation of chronic bronchitis Foraminal stenosis of lumbar region Peripheral neuropathy Pneumonia (~2018) Impotence (Unknown) Restless leg syndrome (Unknown) Arthritis (Unknown) Chronic pain syndrome (Unknown) Kidney stones (Unknown) Prostate cancer (Unknown) Skin cancer (Unknown) Hepatitis C (Unknown) Hypertension (Unknown) Migraines (Unknown) PTSD (post-traumatic stress disorder) (Unknown) Depression (Unknown) Surgical History S/P lumbar fusion History of lumbar fusion (05/10/22) History of ankle surgery 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 Social History marital status: household members: spouse lives independently: Yes occupational status: previously employed Smoking Status: Former smoker Tobacco: How many years used: 20 quit status: has quit before alcohol intake: former substance use type: former substance user and marijuana Smoking Status: Former smoker tobacco type: cigarettes alcohol intake frequency: 0-2 drinks per day Substance Use Type: does not use Exam <Steve Gloria PA-C - Last Filed: 09/09/23 19:03> Narrative Exam Narrative: Const General:?cooperative, healthy appearing and comfortable HENMT Head:?normal to inspection Ears:?hearing grossly normal bilaterally Nose:?external nose normal Face and sinus:?normal facial exam and sinuses nontender Mouth:?oral mucosae normal Throat:?posterior oropharynx normal Eyes General:?appearance normal, both eyes and all related structures Neck Neck:?normal visual inspection and no lymphadenopathy noted Resp Effort & Inspection:?normal respiratory effort Auscultation:?clear to auscultation bilaterally Cardio Rate:?regular rate Rhythm:?regular rhythm GI Abdomen is soft, nondistended, nontender to palpation. Musculoskeletal Tenderness to palpation of the left hip, left lower ribs. No bruising. Neuro General:?patient alert, patient awake and patient oriented x3 Initial Vital Signs Initial Vital Signs: Vital Signs Temperature 98.2 F 09/09/23 13:15 Pulse Rate 92 H 09/09/23 13:15 Respiratory Rate 20 09/09/23 13:15 Blood Pressure 214/97 H 09/09/23 13:15 Pulse Oximetry 100 09/09/23 13:15 Oxygen Delivery Method Room Air 09/09/23 13:15 <Carie Santana MD - Last Filed: 09/10/23 07:03> Initial Vital Signs Initial Vital Signs: Vital Signs Temperature 98.2 F 09/09/23 13:15 Pulse Rate 92 H 09/09/23 13:15 Respiratory Rate 20 09/09/23 13:15 Blood Pressure 214/97 H 09/09/23 13:15 Pulse Oximetry 100 09/09/23 13:15 Oxygen Delivery Method Room Air 09/09/23 13:15 Course <Steve Gloria PA-C - Last Filed: 09/09/23 19:03> Orders Ordered: Discontinued Medications Hydromorphone HCl (Hydromorphone 1 Mg Inj) 1 mg IV NOW ONE Stop: 09/09/23 15:56 Last Admin: 09/09/23 16:25 Dose: 1 mg Documented By: SB Ketorolac Tromethamine (Ketorolac 30 Mg/Ml Vial) 30 mg IM NOW ONE Stop: 09/09/23 13:43 Last Admin: 09/09/23 13:48 Dose: 30 mg Documented By: SB Oxycodone HCl (Oxycodone Ir 5 Mg Tablet) 10 mg PO NOW ONE Stop: 09/09/23 14:38 Last Admin: 09/09/23 14:56 Dose: 10 mg Documented By: SB Oxycodone HCl (Oxycodone Ir 5 Mg Tablet) 5 mg PO NOW ONE Stop: 09/09/23 18:46 Last Admin: 09/09/23 19:03 Dose: 5 mg Documented By: SB Vital Signs Vital signs: Vital Signs - 8 hr 09/09/23 13:15 09/09/23 14:22 09/09/23 15:26 Temperature 98.2 F Pulse Rate 92 H 80 74 Respiratory Rate 20 22 22 Blood Pressure 214/97 H 218/100 H 197/88 H Pulse Oximetry 100 98 97 Oxygen Delivery Method Room Air Room Air Room Air 09/09/23 16:32 09/09/23 17:18 Temperature Pulse Rate 70 74 Respiratory Rate 18 22 Blood Pressure 215/56 H 181/113 H Pulse Oximetry 94 97 Oxygen Delivery Method Room Air Room Air <Carie Santana MD - Last Filed: 09/10/23 07:03> Orders Ordered: Discontinued Medications Hydromorphone HCl (Hydromorphone 1 Mg Inj) 1 mg IV NOW ONE Stop: 09/09/23 15:56 Last Admin: 09/09/23 16:25 Dose: 1 mg Documented By: SB Ketorolac Tromethamine (Ketorolac 30 Mg/Ml Vial) 30 mg IM NOW ONE Stop: 09/09/23 13:43 Last Admin: 09/09/23 13:48 Dose: 30 mg Documented By: SB Oxycodone HCl (Oxycodone Ir 5 Mg Tablet) 10 mg PO NOW ONE Stop: 09/09/23 14:38 Last Admin: 09/09/23 14:56 Dose: 10 mg Documented By: SB Oxycodone HCl (Oxycodone Ir 5 Mg Tablet) 5 mg PO NOW ONE Stop: 09/09/23 18:46 Last Admin: 09/09/23 19:03 Dose: 5 mg Documented By: SB Vital Signs Vital signs: Vital Signs - 8 hr 09/09/23 13:15 09/09/23 14:22 09/09/23 15:26 Temperature 98.2 F Pulse Rate 92 H 80 74 Respiratory Rate 20 22 22 Blood Pressure 214/97 H 218/100 H 197/88 H Pulse Oximetry 100 98 97 Oxygen Delivery Method Room Air Room Air Room Air 09/09/23 16:32 09/09/23 17:18 Temperature Pulse Rate 70 74 Respiratory Rate 18 22 Blood Pressure 215/56 H 181/113 H Pulse Oximetry 94 97 Oxygen Delivery Method Room Air Room Air MDM - Back Pain/Injury <Steve Gloria PA-C - Last Filed: 09/09/23 19:03> Lab Data 09/09/23 15:45 09/09/23 15:45 Labs: Lab Results 09/09/23 09/09/23 09/09/23 Range/Units 15:32 15:45 16:29 WBC 7.5 (4.5-11.0) X10^3/uL RBC 4.40 L (4.5-5.9) X10^6/uL Hgb 11.4 L (13.5-17.5) g/dL Hct 34.0 L (41-53) % MCV 77.4 L (80-100) fL MCH 25.9 L (26-34) PG MCHC 33.4 (30-36) % RDW 16.2 H (11.6-14.8) % Plt Count 360 (150-400) X10^3/uL Neut % (Auto) 65.0 (50-75) % Lymph % (Auto) 19.4 L (25-40) % [place] % (Auto) 13.4 (3-14) % Eos % (Auto) 1.2 L (2-4) % Baso % (Auto) 1.0 (0-2) % Neut # (Auto) 4900 (3988-8369) /uL Lymph # (Auto) 1500 (5350-2806) /uL [place] # (Auto) 1000 H (0-900) /uL Eos # (Auto) 100 (0-450) /uL Baso # (Auto) 100 (0-100) /uL Sodium 138 (137-145) mmol/L Potassium 3.1 L (3.4-5.1) mmol/L Chloride 103 (98-107) mmol/L Carbon Dioxide 27 (22-32) mmol/L BUN 8 L (9-20) mg/dL Creatinine 0.64 L (0.66-1.25) mg/dL Estimated GFR > 60 (>60) mL/min BUN/Creatinine Ratio 12.5 (6-22) Glucose 97 (80-110) mg/dL Calcium 9.1 (8.4-10.2) mg/dL Total Bilirubin 0.5 (0.2-1.3) mg/dL AST 19 (17-59) IU/L ALT 12 (<50) IU/L Alkaline Phosphatase 89 (38-126) U/L Total Creatine Kinase 32 L (55-170) U/L Troponin I 0.027 (0.01-0.034) ng/mL Total Protein 7.6 (6.3-8.2) g/dL Albumin 3.9 (3.5-5.0) g/dL Globulin 3.7 (1.7-4.1) g/dL Albumin/Globulin Ratio 1.1 (1.0-2.8) Lipase 62 (23-300) U/L Urine Color Yellow Urine Appearance Clear Urine pH 6.5 (4.5-8.0) Ur Specific [place] 1.010 (1.000-1.035) Urine Protein Negative (Negative) Urine Glucose (UA) Negative (Negative) g/dL Urine Ketones Negative (NEGATIVE) Urine Occult Blood Negative (Negative) Urine Nitrate Negative (Negative) Urine Bilirubin Negative (NEGATIVE) Urine Urobilinogen 0.2 (0.2) E.U./dL Ur Leukocyte Esterase Negative (NEGATIVE) Urine RBC 0-1/hpf (0-5/HPF) Urine WBC None seen (0-5/HPF) Ur Squamous Epith Cells 0-1 /hpf (0-5/HPF) Urine Bacteria None seen (None) Ur Culture Indicated? Cult not indicated MDM Narrative Medical decision making narrative: 77-year-old male with past medical history chronic pain syndrome, hypertension, PTSD, CAD, hep C, rheumatoid arthritis, anemia presents to the ED status post a mechanical fall sustained just prior to arrival. Concern for fracture/dislocation versus contusion versus musculoskeletal sprain/strain vs other. Will obtain x-rays, treat pain with ketorolac. Will reassess. Patient continued to have left-sided pain, repeat abdominal exam was positive for some left-sided abdominal tenderness. Obtained CT abdomen pelvis, UA, chest x-ray. Labs within normal limits. UA without UTI. CT abdomen pelvis without acute findings. Chest x-ray without acute findings. EKG is normal sinus rhythm, no acute ST-T changes, no axis deviation. Troponin within normal limits. Patient's pain was sufficiently controlled with oxycodone, ketorolac, Dilaudid. Recommend continuing the oxycodone and ibuprofen at home for relief. Recommend follow-up with PCP as soon as possible. ED return precautions discussed with patient. Patient verbalized understanding. Medical records reviewed: Yes <Carie Santana MD - Last Filed: 09/10/23 07:03> Lab Data Labs: Lab Results 09/09/23 09/09/23 09/09/23 Range/Units 15:32 15:45 16:29 WBC 7.5 (4.5-11.0) X10^3/uL RBC 4.40 L (4.5-5.9) X10^6/uL Hgb 11.4 L (13.5-17.5) g/dL Hct 34.0 L (41-53) % MCV 77.4 L (80-100) fL MCH 25.9 L (26-34) PG MCHC 33.4 (30-36) % RDW 16.2 H (11.6-14.8) % Plt Count 360 (150-400) X10^3/uL Neut % (Auto) 65.0 (50-75) % Lymph % (Auto) 19.4 L (25-40) % [place] % (Auto) 13.4 (3-14) % Eos % (Auto) 1.2 L (2-4) % Baso % (Auto) 1.0 (0-2) % Neut # (Auto) 4900 (3739-4676) /uL Lymph # (Auto) 1500 (1181-0857) /uL [place] # (Auto) 1000 H (0-900) /uL Eos # (Auto) 100 (0-450) /uL Baso # (Auto) 100 (0-100) /uL Sodium 138 (137-145) mmol/L Potassium 3.1 L (3.4-5.1) mmol/L Chloride 103 (98-107) mmol/L Carbon Dioxide 27 (22-32) mmol/L BUN 8 L (9-20) mg/dL Creatinine 0.64 L (0.66-1.25) mg/dL Estimated GFR > 60 (>60) mL/min BUN/Creatinine Ratio 12.5 (6-22) Glucose 97 (80-110) mg/dL Calcium 9.1 (8.4-10.2) mg/dL Total Bilirubin 0.5 (0.2-1.3) mg/dL AST 19 (17-59) IU/L ALT 12 (<50) IU/L Alkaline Phosphatase 89 (38-126) U/L Total Creatine Kinase 32 L (55-170) U/L Troponin I 0.027 (0.01-0.034) ng/mL Total Protein 7.6 (6.3-8.2) g/dL Albumin 3.9 (3.5-5.0) g/dL Globulin 3.7 (1.7-4.1) g/dL Albumin/Globulin Ratio 1.1 (1.0-2.8) Lipase 62 (23-300) U/L Urine Color Yellow Urine Appearance Clear Urine pH 6.5 (4.5-8.0) Ur Specific [place] 1.010 (1.000-1.035) Urine Protein Negative (Negative) Urine Glucose (UA) Negative (Negative) g/dL Urine Ketones Negative (NEGATIVE) Urine Occult Blood Negative (Negative) Urine Nitrate Negative (Negative) Urine Bilirubin Negative (NEGATIVE) Urine Urobilinogen 0.2 (0.2) E.U./dL Ur Leukocyte Esterase Negative (NEGATIVE) Urine RBC 0-1/hpf (0-5/HPF) Urine WBC None seen (0-5/HPF) Ur Squamous Epith Cells 0-1 /hpf (0-5/HPF) Urine Bacteria None seen (None) Ur Culture Indicated? Cult not indicated Discharge Plan Departure Patient Disposition: Home Clinical Impression: Rib pain Acute hip pain Qualifiers: Laterality: left Qualified Code(s): M25.552 - Pain in left hip Instructions: DI for Muscle Strain Activity Restrictions/Additional Instructions: You were evaluated in the ED today for left-sided rib and hip pain from a fall. Your EKG, x-rays and CT were normal. Your symptoms are likely due to a musculoskeletal sprain/strain and contusion from the fall. You were given oxycodone, ketorolac, dilaudid in the ED. You may continue taking your oxycodone as prescribed. You may also add ibuprofen 600 mg 3 times a day with food. Please follow-up with your PCP as soon as possible. Return to the ED if you have worsening symptoms, abdominal pain, chest pain, shortness of breath. Prescriptions: No Action fluoxetine 10 mg capsule See Rx Instructions .ROUTE .COMPLEX Qty: 90 3RF Dose Instruction: take 1 capsule by mouth once daily WITH 20MG CAP DAILY TOTAL 30 MG DAILY Rx Instructions: take 1 capsule by mouth once daily WITH 20MG CAP DAILY TOTAL 30 MG DAILY fluoxetine 20 mg capsule 20 mg PO DAILY Qty: 90 3RF Rx Instructions: Take with 10 mg to complete 30 mg dose albuterol sulfate 2.5 mg /3 mL (0.083 %) solution for nebulization 2.5 mg Continuous Nebulization Q6HP PRN (Reason: shortness of breath or wheezing) Qty: 360 2RF albuterol sulfate 90 mcg/actuation HFA aerosol inhaler 1 inh INHALATION Q4-6H PRN (Reason: shortness of breath) Qty: 18 4RF omeprazole 40 mg capsule,delayed release(DR/EC) 40 mg PO DAILY Qty: 90 3RF Rx Instructions: take 1 capsule by mouth once daily lidocaine 5 % adhesive patch,medicated 2 patch topical DAILY Qty: 30 1RF Rx Instructions: leave on most painful area for up to 12 hrs metoprolol succinate 100 mg tablet extended release 24 hr 100 mg PO DAILY Qty: 90 1RF hydromorphone 2 mg tablet 2 mg PO BEDTIME PRN (Reason: pain) Qty: 30 0RF Rx Instructions: Must last to July 29 2023 ketoconazole 2 % cream 1 applic topical BID Qty: 30 1RF nitroglycerin 0.4 mg tablet, sublingual 0.4 mg sublingual Q5M PRN (Reason: chest pain) Qty: 20 1RF Rx Instructions: do not exceed 3 doses per episode sulfasalazine 500 mg tablet 1,000 mg PO BID Qty: 180 1RF meloxicam 15 mg tablet 15 mg PO DAILY Qty: 30 0RF methocarbamol 750 mg tablet 750 mg PO QID Qty: 56 0RF potassium chloride 20 mEq tablet extended release 20 meq PO BID Qty: 10 0RF lidocaine 5 % adhesive patch,medicated 1 patch topical DAILY Qty: 30 0RF Rx Instructions: against spine T9 level for shingles pain oxycodone 10 mg tablet 10 mg PO Q8H PRN (Reason: pain) Qty: 10 0RF Rx Instructions: to augment chronic TID dosing due to shingles pain valacyclovir 1 gram tablet 1,000 mg PO TID Qty: 30 0RF Disabled Parking Permit 1 1 % SEEINSTR Rx Instructions: Valid for 5 years amlodipine 5 mg tablet 5 mg PO BEDTIME Patient Comments: pt received dose in hospital 11/10/19 early AM admit to AC valacyclovir 1 gram tablet 1,000 mg PO Q8H PRN (Reason: Breakout) hydrochlorothiazide 25 mg tablet 12.5 mg PO QAM losartan 100 mg tablet 100 mg PO DAILY ibuprofen 400 mg Tablet 400 mg PO Q4HR PRN (Reason: Pain, Mild (1-3)) Qty: 60 0RF ipratropium-albuterol 0.5 mg-3 mg(2.5 mg base)/3 mL solution for nebulization 3 ml inhalation Q6H PRN (Reason: shortness of breath or wheezing) Qty: 90 0RF Referrals: Edilberto Snell DO [Primary Care Provider] - Stand Alone Forms: Patient Portal/API ED Sign-out <Carie Santana MD - Last Filed: 09/10/23 07:03> Cosign ED Attending Cosignature Attestation: I did not see this patient. I was available all times for consultation.
[2023-09-09 14:22] VITALS: BP 218/100; PULSE 80; RESP 22; O2SAT 98
--- NOTE | 2023-09-09 14:31 | PC.NURSE ---
Pt reports taking 100mg metoprolol this morning for his blood pressure.
[2023-09-09] MEDS: OXYCODONE IR 5 MG TABLET 10 MG PO (14:56)
[2023-09-09 15:26] VITALS: BP 197/88; PULSE 74; RESP 22; O2SAT 97
--- NOTE | 2023-09-09 15:28 | DI.CT.S_ITS ---
PROCEDURE: CT ABDOMEN PELVIS W CON INDICATIONS: Fall TECHNIQUE: After the administration of oral and IV contrast, axial sections were acquired from the lung bases to the pubic symphysis. Coronal and sagittal reformats were performed. For radiation dose reduction, the following was used: automated exposure control, adjustment of mA and/or kV according to patient size. COMPARISON: [facility], CT, CT ABDOMEN PELVIS W CON, 09/02/2023, 17:08. FINDINGS: Image quality: Excellent. Lung bases: Calcified granuloma. Heart: No significant findings. ABDOMEN: Liver: No solid mass. Gallbladder: Absent. Biliary ducts: No intrahepatic or extrahepatic biliary dilation, accounting for a post cholecystectomy state. Pancreas: No ductal dilation. Spleen: Calcified granuloma. Adrenal Glands: No adrenal nodules. Kidneys and Ureters: No hydronephrosis. No solid mass. No complex renal cystic lesion which requires follow up. Stomach and Bowel: Normal colonic caliber, without significant wall thickening. Colonic diverticulosis without evidence of diverticulitis. Peritoneum: No abnormal intraperitoneal fluid. No free air. Ventral Wall: No hernia. Abdominal Nodes: No retroperitoneal or mesenteric adenopathy by size criteria. Vessels: Aorta and inferior vena cava are normal in size. PELVIS: Pelvic Organs: Prostatectomy. Prosthetic penile pump with reservoir in the right inguinal region. Bladder: Unremarkable. Pelvic Nodes: Pelvic lymph node dissection. Suspected hernia mesh in the left inguinal region. Miscellaneous: No inguinal hernias are seen. Bones: Posterior and interbody surgical fusion of the thoracolumbar spine. Screws within the right pelvic bone and arthrodesis of the pubic symphysis. IMPRESSION: No displaced fracture. Incidental findings as above. Dictated by: Jason Hdez M.D. on 09/09/2023 at 15:57 Approved by: Jason Hdez M.D. on 09/09/2023 at 16:00
--- NOTE | 2023-09-09 15:47 | DI.RAD.S_ITS ---
PROCEDURE: XR CHEST 1V INDICATIONS: Flu like symptoms TECHNIQUE: One view of the chest was acquired. COMPARISON: [facility], CR, XR CHEST 1V, 06/09/2023, 13:53. [facility], CR, XR CHEST 1V, 04/04/2023, 16:23. FINDINGS: Surgical changes and devices: None. Lungs and pleura: Lungs are clear. No pleural effusions or pneumothorax. Calcified granuloma. Mediastinum: Mediastinal contours appear normal. Heart size is normal. Bones and chest wall: No suspicious bony lesions. Overlying soft tissues appear unremarkable. IMPRESSION: No acute cardiopulmonary abnormality is seen. Dictated by: Jason Hdez M.D. on 09/09/2023 at 16:00 Approved by: Jason Hdez M.D. on 09/09/2023 at 16:00
[2023-09-09 15:51] LABS: Add Manual Diff / Slide Review NO; Basophils Absolute Auto 100 /uL (0-100); Eosinophils Absolute Auto 100 /uL (0-450); Eosinophils Percent Auto 1.2 % (2-4); Hemoglobin 11.4 g/dL (13.5-17.5); Lymphocytes Absolute Auto 1500 /uL (1100-4500); Lymphocytes Percent Auto 19.4 % (25-40); Mean Corpuscular HGB Conc 33.4 % (30-36); Mean Corpuscular Hemoglobin 25.9 PG (26-34); Mean Corpuscular Volume 77.4 fL (80-100); Monocytes Absolute Auto 1000 /uL (0-900); Monocytes Percent Auto 13.4 % (3-14); Neutrophils Absolute Auto 4900 /uL (1500-7000); Platelet Count 360 X10^3/uL (150-400); Red Cell Distribution Width 16.2 % (11.6-14.8); White Blood Cell Count 7.5 X10^3/uL (4.5-11.0)
[2023-09-09 16:17] LABS: Alanine Aminotransferase 12 IU/L (<50); Albumin 3.9 g/dL (3.5-5.0); Albumin Globulin Ratio 1.1 (1.0-2.8); Alkaline Phosphatase 89 U/L (38-126); Aspartate Aminotransferase 19 IU/L (17-59); BUN Creatinine Ratio 12.5 (6-22); Bilirubin Total 0.5 mg/dL (0.2-1.3); Blood Urea Nitrogen 8 mg/dL (9-20); Calcium 9.1 mg/dL (8.4-10.2); Carbon Dioxide 27 mmol/L (22-32); Chloride 103 mmol/L (98-107); Estimated Glomerular Filt Rate > 60 mL/min (>60); Globulin 3.7 g/dL (1.7-4.1); Glucose 97 mg/dL (80-110); HEMOLYSIS < 15 (0-50); Lipase 62 U/L (23-300); Potassium 3.1 mmol/L (3.4-5.1); Sodium 138 mmol/L (137-145); Total Protein 7.6 g/dL (6.3-8.2)
[2023-09-09] MEDS: HYDROMORPHONE 1 MG INJ IV (16:25)
[2023-09-09 16:32] VITALS: BP 215/56; PULSE 70; RESP 18; O2SAT 94
[2023-09-09 16:39] LABS: Appearance Urine UA CLEAR; Bilirubin Urine UA NEGATIVE (NEGATIVE); Color Urine UA YELLOW; Glucose Urine UA NEGATIVE (Negative); Ketones Urine UA NEGATIVE (NEGATIVE); Leukocyte Esterase Urine UA NEGATIVE (NEGATIVE); Nitrite Urine UA NEGATIVE (Negative); Occult Blood Urine UA NEGATIVE (Negative); Protein Urine UA NEGATIVE (Negative); Urobilinogen Urine UA 0.2 E.U./dL (0.2); pH Urine UA 6.5 (4.5-8.0)
[2023-09-09 16:54] LABS: Bacteria Urine None Seen; Culture Indicated Urine Cult Not Indicated; RBC Urine 0-1/HPF (0-5/HPF); Squamous Epithelial Cell Urine 0-1 /HPF (0-5/HPF); WBC Urine None Seen (0-5/HPF)
[2023-09-09 17:18] VITALS: BP 181/113; PULSE 74; RESP 22; O2SAT 97
[2023-09-09 17:41] LABS: Creatine Kinase 32 U/L (55-170)
--- NOTE | 2023-09-09 17:44 | PC.NURSE ---
Pt requesting more pain medications. Provider is aware. No new orders at this time.
[2023-09-09 17:54] LABS: Troponin I 0.027 ng/mL (0.01-0.034)
[2023-09-09] MEDS: OXYCODONE IR 5 MG TABLET PO (19:03)
[2023-09-09 19:10] VITALS: BP 191/100; PULSE 77; RESP 18; O2SAT 98
== END 2023-09-09 19:07 | disposition home or self-care (01) ==
PROVIDERS: Emergency Provider Student in an Organized Health Care Education/Training Program; PCP Family Medicine
DX: M25.552 Pain in left hip (principal); R07.81 Pleurodynia; G89.4 Chronic pain syndrome; M06.9 Rheumatoid arthritis, unspecified
CPT/HCPCS: 36415; 71045; 71101; 73502; 74177; 80053; 81001; 82550; 83690; 84484; 85025; 93005; 96372; 96374; 99285; J1170; J1885; Q9967

== ENCOUNTER 2023-09-16 11:53 | Emergency (ER) | payer MEDICARE, OTHER, SELFPAY ==
[2022-11-15 12:10] VITALS: BMI 30.8
[2023-09-16] VITALS (9 sets, daily range): BP systolic 113–149; BP diastolic 53–73; PULSE 61–66; RESP 11–26; TEMP 36.8; O2SAT 95–99; BMI 31.0
--- NOTE | 2023-09-16 12:53 | DI.RAD.S_ITS ---
PROCEDURE: XR CHEST 1V INDICATIONS: chest pain TECHNIQUE: One view of the chest was acquired. COMPARISON: [facility], CR, XR CHEST 1V, 09/09/2023, 15:48. [facility], CR, XR CHEST 1V, 04/04/2023, 16:23. FINDINGS: Surgical changes and devices: Bilateral shoulder arthroplasties. Lumbar spine hardware. Lungs and pleura: Lungs are clear. No pleural effusions or pneumothorax. Mediastinum: Mediastinal contours appear normal. Heart size is normal. Bones and chest wall: No suspicious bony lesions. Overlying soft tissues appear unremarkable. IMPRESSION: No acute cardiopulmonary abnormality is seen. Dictated by: Arturo Shah M.D. on 09/16/2023 at 13:33 Approved by: Arturo Shah M.D. on 09/16/2023 at 13:34
[2023-09-16 13:02] LABS: Add Manual Diff / Slide Review NO; Basophils Absolute Auto 0 /uL (0-100); Basophils Percent Auto 0.1 % (0-2); Eosinophils Absolute Auto 0 /uL (0-450); Hemoglobin 9.5 g/dL (13.5-17.5); Lymphocytes Absolute Auto 1100 /uL (1100-4500); Lymphocytes Percent Auto 8.6 % (25-40); Mean Corpuscular HGB Conc 32.6 % (30-36); Mean Corpuscular Hemoglobin 25.3 PG (26-34); Mean Corpuscular Volume 77.7 fL (80-100); Monocytes Absolute Auto 1300 /uL (0-900); Monocytes Percent Auto 10.2 % (3-14); Neutrophils Absolute Auto 10400 /uL (1500-7000); Neutrophils Percent Auto 81.1 % (50-75); Platelet Count 384 X10^3/uL (150-400); Prothrombin Time 11.5 SECONDS (9.4-12.5); Red Blood Cell Count 3.73 X10^6/uL (4.5-5.9); Red Cell Distribution Width 16.5 % (11.6-14.8); White Blood Cell Count 12.8 X10^3/uL (4.5-11.0)
[2023-09-16] MEDS: ASPIRIN 81 MG CHEW TAB 324 MG PO (13:02)
[2023-09-16 13:05] LABS: PTT Partial Thromboplastin Tim 27 SECONDS (25.1-36.5)
[2023-09-16 13:06] LABS: Alanine Aminotransferase 15 IU/L (<50); Albumin 3.7 g/dL (3.5-5.0); Albumin Globulin Ratio 1.1 (1.0-2.8); Alkaline Phosphatase 94 U/L (38-126); Aspartate Aminotransferase 20 IU/L (17-59); BUN Creatinine Ratio 30.8 (6-22); Bilirubin Total 0.4 mg/dL (0.2-1.3); Blood Urea Nitrogen 24 mg/dL (9-20); Calcium 8.9 mg/dL (8.4-10.2); Carbon Dioxide 28 mmol/L (22-32); Chloride 97 mmol/L (98-107); Creatine Kinase 45 U/L (55-170); Estimated Glomerular Filt Rate > 60 mL/min (>60); Globulin 3.3 g/dL (1.7-4.1); Glucose 114 mg/dL (80-110); HEMOLYSIS < 15 (0-50); Lipase 14 U/L (23-300); Magnesium 2.2 mg/dL (1.6-2.3); Potassium 4.5 mmol/L (3.4-5.1); Sodium 132 mmol/L (137-145)
[2023-09-16 13:17] LABS: Troponin I 0.014 ng/mL (0.01-0.034)
[2023-09-16] MEDS: OXYCODONE IR 5 MG TABLET 10 MG PO (14:16)
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
[2023-09-16 14:50] LABS: Troponin I 0.015 ng/mL (0.01-0.034)
== END 2023-09-16 15:17 | disposition home or self-care (01) ==
PROVIDERS: Emergency Provider Emergency Medicine; PCP Family Medicine
DX: R07.9 Chest pain, unspecified (principal); R42 Dizziness and giddiness
CPT/HCPCS: 36415; 71045; 80053; 82550; 83690; 83735; 84484; 85025; 85610; 85730; 93005; 99284

== ENCOUNTER → 2023-09-20 16:28 | Outpatient (CLI) | payer MEDICARE, OTHER, SELFPAY ==
[2022-11-15 12:10] VITALS: BMI 30.8
--- NOTE | 2023-09-20 16:30 | DI.RAD.S_ITS ---
PROCEDURE: XR KNEE LT 3V INDICATIONS: eval L knee pain TECHNIQUE: 3 views of the knee were acquired. COMPARISON: [facility], , XR KNEE LT 3V, 07/11/2023, 20:19. FINDINGS: Bones: No fractures or dislocations. No suspicious bony lesions. Minimal narrowing of the medial femoral tibial joint and mild tricompartmental periarticular osteophyte formation. Soft tissues: Trace joint effusion. No suspicious soft tissue calcifications. IMPRESSION: 1. Trace joint effusion and mild tricompartmental knee joint degeneration, most notably involving the medial femorotibial joint. Dictated by: Sunday Barrera [facility] Interpreted: Mohit Olivares MD on 09/20/2023 at 16:55 Transcribed by: SAE on 09/20/2023 at 16:56 Approved by: Mohit Olivares M.D. on 09/24/2023 at 8:57
--- NOTE | 2023-09-20 16:30 | DI.RAD.S_ITS ---
PROCEDURE: XR SHOULDER LT MIN 2V INDICATIONS: eval L shoulder pain TECHNIQUE: 3 views of the shoulder were acquired. COMPARISON: [facility], CR, XR SHOULDER LT MIN 2V, 07/11/2023, 20:19. [facility], CR, XR SHOULDER RT MIN 2V, 07/11/2023, 20:19. FINDINGS: Bones: Reverse left shoulder arthroplasty components are present. No visible periprosthetic fracture or surrounding lucency. Healing left clavicle fracture and similar degenerative changes at the acromioclavicular joint. Soft tissues: No suspicious soft tissue calcifications. IMPRESSION: 1. No acute findings. 2. Stable position of left arthroplasty components. Dictated by: Gabriella Mccormick M.D. on 09/20/2023 at 17:48 Approved by: Gabriella Mccormick M.D. on 09/20/2023 at 17:49
== END ==
PROVIDERS: PCP Family Medicine; Referring Provider Family Medicine; Visit Provider Family Medicine
DX: M25.562 Pain in left knee (principal); M25.512 Pain in left shoulder; M17.12 Unilateral primary osteoarthritis, left knee; Z96.612 Presence of left artificial shoulder joint; M25.462 Effusion, left knee
CPT/HCPCS: 73030; 73562

== ENCOUNTER 2023-09-20 19:59 | Emergency (ER) | payer MEDICARE, OTHER, SELFPAY ==
[2022-11-15 12:10] VITALS: BMI 30.8
[2023-09-20 20:06] VITALS: BP 140/99; PULSE 98; RESP 16; TEMP 36.8; O2SAT 98; BMI 30.5
--- NOTE | 2023-09-20 21:22 | ED.GENADULT ---
HPI - General Adult General Chief complaint: Extremity Injury, Upper Stated complaint: lt arm/shoulder pain s/p bedframe dropped on it Time Seen by Provider: 09/20/23 21:10 Source: patient Mode of arrival: Ambulatory History of Present Illness HPI narrative: Patient is a 77-year-old male here for evaluation of left arm and shoulder pain. He states that a couple days ago he was moving a mattress. He was holding it while his went to go use the restroom and the bed frame fell and landed on his left shoulder. Since that time he is had discomfort in his left shoulder down his left side to his left knee. He went to the walk-in clinic. Had x-rays performed. No fractures noted. He was sent to the emergency department for pain control. He is on oxycodone at home. He has been taking this without any improvement. Related Data Home Medications Medication Instructions Recorded Confirmed Disabled Parking Permit 1 % SEEINSTR 11/08/20 09/20/23 amlodipine 5 mg tablet 5 mg PO BEDTIME 11/08/22 09/20/23 valacyclovir 1 gram tablet 1,000 mg PO Q8H PRN Breakout 11/08/22 09/20/23 hydrochlorothiazide 25 mg tablet 12.5 mg PO QAM 11/15/22 09/20/23 losartan 100 mg tablet 100 mg PO DAILY 11/15/22 09/20/23 Previous Rx's Medication Instructions Recorded fluoxetine 10 mg capsule See Rx Instructions .Route 08/14/22 .COMPLEX #90 caps fluoxetine 20 mg capsule 20 mg PO DAILY #90 caps 08/14/22 albuterol sulfate 2.5 mg/3 mL 2.5 mg (3 mL) continuous 10/24/22 (0.083 %) solution for nebulization nebulization Q6HP PRN shortness of breath or wheezing #360 mL ibuprofen 400 mg tablet 400 mg PO Q4HR PRN Pain, Mild 11/16/22 (1-3) #60 tabs albuterol sulfate 90 mcg/actuation 1 inh inhalation Q4-6H PRN 12/27/22 aerosol inhaler shortness of breath #18 grams omeprazole 40 mg capsule,delayed 40 mg PO DAILY #90 caps 01/01/23 release lidocaine 5 % topical patch 2 patch topical DAILY #30 ea 01/08/23 ketoconazole 2 % topical cream 1 applic topical BID #30 grams 02/08/23 potassium chloride 20 mEq 20 meq PO BID #10 tabs 02/26/23 tablet,extended release ipratropium 0.5 mg-albuterol 3 mg 3 ml inhalation Q6H PRN shortness 03/19/23 (2.5 mg base)/3 mL nebulization of breath or wheezing #90 mL soln nitroglycerin 0.4 mg sublingual 0.4 mg sublingual Q5M PRN chest 03/28/23 tablet pain #20 tabs metoprolol succinate 100 mg 100 mg PO DAILY #90 tabs 07/11/23 tablet,extended release 24 hr sulfasalazine 500 mg tablet 1,000 mg (2 x 500 mg) PO BID #180 07/23/23 tabs meloxicam 15 mg tablet 15 mg PO DAILY #30 tabs 08/13/23 methocarbamol 750 mg tablet 750 mg PO QID #56 tabs 08/13/23 lidocaine 5 % topical patch 1 patch topical DAILY #30 ea 09/02/23 valacyclovir 1 gram tablet 1,000 mg PO TID #30 tabs 09/02/23 hydromorphone 2 mg tablet 2 mg PO BEDTIME PRN pain #30 tabs 09/04/23 oxycodone 10 mg tablet 10 mg PO Q8H PRN pain #84 tabs 09/12/23 prednisone 20 mg tablet 40 mg (2 x 20 mg) PO DAILY #10 tabs 09/12/23 oxycodone 10 mg tablet 10 mg PO BID PRN pain #10 tabs 09/20/23 oxycodone 10 mg tablet 10 mg PO Q8H PRN pain #10 tabs 09/20/23 Allergies Allergy/AdvReac Type Severity Reaction Status Date / Time cyclobenzaprine Allergy Severe Dizziness, Verified 09/20/23 15:47 [From Flexeril] I bounce off ag acetaminophen [ACETAMINOPHEN] AdvReac Unknown Can't take Verified 09/20/23 15:47 r/t Hep C; upset stomach Review of Systems Constitutional Constitutional: Reports system reviewed and no additional complaints, except as documented Musculoskeletal Musculoskeletal: Reports system reviewed and no additional complaints, except as documented Integumentary/Breasts Skin/Breast: Reports system reviewed and no additional complaints, except as documented Patient History Medical History Chronic diarrhea Eustachian tube dysfunction Seasonal allergic rhinitis Dyspepsia Anemia Tinea Abdominal wall pain in both lower quadrants Constipation Aftercare following left shoulder joint replacement surgery Preoperative clearance Left lateral epicondylitis Adhesive capsulitis Right wrist sprain Oral lesion Colles' fracture Right wrist pain Left shoulder strain Anxiety Fibromyalgia Sinus drainage Chronic ankle pain, bilateral Rheumatoid arthritis Acute exacerbation of chronic bronchitis Foraminal stenosis of lumbar region Peripheral neuropathy Pneumonia (~2018) Impotence (Unknown) Restless leg syndrome (Unknown) Arthritis (Unknown) Chronic pain syndrome (Unknown) Kidney stones (Unknown) Prostate cancer (Unknown) Skin cancer (Unknown) Hepatitis C (Unknown) Hypertension (Unknown) Migraines (Unknown) PTSD (post-traumatic stress disorder) (Unknown) Depression (Unknown) Surgical History S/P lumbar fusion History of lumbar fusion (05/10/22) History of ankle surgery 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 Social History marital status: household members: spouse lives independently: Yes occupational status: previously employed Smoking Status: Former smoker Tobacco: How many years used: 20 quit status: has quit before alcohol intake: former substance use type: former substance user and marijuana Smoking Status: Former smoker tobacco type: cigarettes alcohol intake frequency: 0-2 drinks per day Substance Use Type: does not use Exam Initial Vital Signs Initial Vital Signs: Vital Signs Temperature 98.2 F 09/20/23 20:06 Pulse Rate 98 H 09/20/23 20:06 Respiratory Rate 16 09/20/23 20:06 Blood Pressure 140/99 H 09/20/23 20:06 Pulse Oximetry 98 09/20/23 20:06 Oxygen Delivery Method Room Air 09/20/23 20:06 Skin General: no rashes or lesions noted Extrem Other: No gross deformities. He is able to move his left shoulder but with discomfort. His left elbow and left wrist unremarkable. Course Orders Ordered: Discontinued Medications Hydromorphone HCl (Hydromorphone 1 Mg Inj) 1 mg IM NOW ONE Stop: 09/20/23 21:24 Last Admin: 09/20/23 21:38 Dose: 1 mg Documented By: HUGH Vital Signs Vital signs: Vital Signs - 8 hr 09/20/23 21:42 Pulse Rate 75 Respiratory Rate 20 Blood Pressure 163/81 H Pulse Oximetry 98 Medical Decision Making MDM Narrative Medical decision making narrative: He is already had x-rays. No indication for repeat x-rays. He has been to the emergency department multiple times in the past 4 pain control issues. He was given 1 dose of pain medicine here in the emergency department. He stated that he was out of his home medicines. When I went to order a short-term refill it stated that he would filled 28 days worth of his oxycodone approximately 10 days ago. He was advised that I would not refill any of his chronic pain medications and that he needed to contact his primary doctor for this. Discharge Plan Departure Patient Disposition: Home Clinical Impression: Acute shoulder pain Instructions: How To Perform RICE (Rest, Ice, Compress, Elevate) Activity Restrictions/Additional Instructions: Continue to take all of your medications as directed. You will need to contact your primary doctor for refills of your chronic pain medication. No pain medications for sent to pharmacy. According to our records you had 84 tablets (28 days) filled on 09/12/2023. Prescriptions: New oxycodone 10 mg tablet 10 mg PO Q8H PRN (Reason: pain) Qty: 10 0RF oxycodone 10 mg tablet 10 mg PO BID PRN (Reason: pain) Qty: 10 0RF No Action fluoxetine 10 mg capsule See Rx Instructions .ROUTE .COMPLEX Qty: 90 3RF Dose Instruction: take 1 capsule by mouth once daily WITH 20MG CAP DAILY TOTAL 30 MG DAILY Rx Instructions: take 1 capsule by mouth once daily WITH 20MG CAP DAILY TOTAL 30 MG DAILY fluoxetine 20 mg capsule 20 mg PO DAILY Qty: 90 3RF Rx Instructions: Take with 10 mg to complete 30 mg dose albuterol sulfate 2.5 mg /3 mL (0.083 %) solution for nebulization 2.5 mg Continuous Nebulization Q6HP PRN (Reason: shortness of breath or wheezing) Qty: 360 2RF albuterol sulfate 90 mcg/actuation HFA aerosol inhaler 1 inh INHALATION Q4-6H PRN (Reason: shortness of breath) Qty: 18 4RF omeprazole 40 mg capsule,delayed release(DR/EC) 40 mg PO DAILY Qty: 90 3RF Rx Instructions: take 1 capsule by mouth once daily lidocaine 5 % adhesive patch,medicated 2 patch topical DAILY Qty: 30 1RF Rx Instructions: leave on most painful area for up to 12 hrs metoprolol succinate 100 mg tablet extended release 24 hr 100 mg PO DAILY Qty: 90 1RF hydromorphone 2 mg tablet 2 mg PO BEDTIME PRN (Reason: pain) Qty: 30 0RF Rx Instructions: Must last to July 29 2023 oxycodone 10 mg tablet 10 mg PO Q8H PRN (Reason: pain) Qty: 84 0RF Rx Instructions: to augment chronic TID dosing due to shingles pain prednisone 20 mg tablet 40 mg PO DAILY Qty: 10 0RF ketoconazole 2 % cream 1 applic topical BID Qty: 30 1RF nitroglycerin 0.4 mg tablet, sublingual 0.4 mg sublingual Q5M PRN (Reason: chest pain) Qty: 20 1RF Rx Instructions: do not exceed 3 doses per episode sulfasalazine 500 mg tablet 1,000 mg PO BID Qty: 180 1RF meloxicam 15 mg tablet 15 mg PO DAILY Qty: 30 0RF methocarbamol 750 mg tablet 750 mg PO QID Qty: 56 0RF potassium chloride 20 mEq tablet extended release 20 meq PO BID Qty: 10 0RF lidocaine 5 % adhesive patch,medicated 1 patch topical DAILY Qty: 30 0RF Rx Instructions: against spine T9 level for shingles pain valacyclovir 1 gram tablet 1,000 mg PO TID Qty: 30 0RF Disabled Parking Permit 1 1 % SEEINSTR Rx Instructions: Valid for 5 years amlodipine 5 mg tablet 5 mg PO BEDTIME Patient Comments: pt received dose in hospital 11/10/19 early AM admit to valacyclovir 1 gram tablet 1,000 mg PO Q8H PRN (Reason: Breakout) hydrochlorothiazide 25 mg tablet 12.5 mg PO QAM losartan 100 mg tablet 100 mg PO DAILY ibuprofen 400 mg Tablet 400 mg PO Q4HR PRN (Reason: Pain, Mild (1-3)) Qty: 60 0RF ipratropium-albuterol 0.5 mg-3 mg(2.5 mg base)/3 mL solution for nebulization 3 ml inhalation Q6H PRN (Reason: shortness of breath or wheezing) Qty: 90 0RF Referrals: Edilberto Snell, [Primary Care Provider] - Stand Alone Forms: Patient Portal/API
[2023-09-20] MEDS: HYDROMORPHONE 1 MG INJ IM (21:38)
[2023-09-20 21:42] VITALS: BP 163/81; PULSE 75; RESP 20; O2SAT 98
== END 2023-09-20 21:46 | disposition home or self-care (01) ==
PROVIDERS: Emergency Provider Emergency Medicine; PCP Family Medicine
DX: M25.512 Pain in left shoulder (principal); W20.8XXA Other cause of strike by thrown, projected or falling object, initial encounter; Y93.89 Activity, other specified; M25.562 Pain in left knee; M17.12 Unilateral primary osteoarthritis, left knee; Z96.612 Presence of left artificial shoulder joint; M25.462 Effusion, left knee
CPT/HCPCS: 73030; 73562; 96372; 99283; J1170

== ENCOUNTER 2023-09-25 14:31 | Emergency (ER) | payer MEDICARE, OTHER, SELFPAY ==
[2022-11-15 12:10] VITALS: BMI 30.8
[2023-09-25 14:40] VITALS: BP 157/89; PULSE 91; RESP 15; TEMP 37.1; O2SAT 98; BMI 28.1
--- NOTE | 2023-09-25 17:01 | ED.BACK ---
HPI - Back Pain/Injury <Zenobia Durbin PA-C - Last Filed: 09/25/23 18:41> General Chief Complaint: Back Pain/Injury Stated Complaint: RA Exacerbation Time Seen by Provider: 09/25/23 16:18 Source: patient History of Present Illness HPI Narrative: Patient is a 77-year-old male with a history of chronic pain and rheumatoid arthritis, PCP is Dr. Snell. Chart review shows patient has a history of misusing his prescribed opiates. Patient presents to the emergency room today in severe pain in left wrist and left knee, thinks it is due to a rheumatoid arthritis flare. 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 His appointment was rescheduled for next month. He denies fever or chills, abdominal pain but he is nauseous and retching in the emergency room. His chief complaint is swelling and pain of the left wrist and left MCP joints as well as swelling and pain of the left knee. He reports his knee is very painful and nearly hanna when he tries to stand on it. He reports taking his oxycodone 10 mg 3 times daily +2 mg of hydromorphone at bedtime. He last took these medications yesterday morning and is out of them. This is his 4th visit in the last month to the emergency room for pain related complaints, he also had 1 visit for chest pain. Related Data Home Medications Medication Instructions Recorded Confirmed Disabled Parking Permit 1 % SEEINSTR 11/08/20 09/20/23 amlodipine 5 mg tablet 5 mg PO BEDTIME 11/08/22 09/20/23 valacyclovir 1 gram tablet 1,000 mg PO Q8H PRN Breakout 11/08/22 09/20/23 hydrochlorothiazide 25 mg tablet 12.5 mg PO QAM 11/15/22 09/20/23 losartan 100 mg tablet 100 mg PO DAILY 11/15/22 09/20/23 Previous Rx's Medication Instructions Recorded fluoxetine 10 mg capsule See Rx Instructions .Route 08/14/22 .COMPLEX #90 caps fluoxetine 20 mg capsule 20 mg PO DAILY #90 caps 08/14/22 albuterol sulfate 2.5 mg/3 mL 2.5 mg (3 mL) continuous 10/24/22 (0.083 %) solution for nebulization nebulization Q6HP PRN shortness of breath or wheezing #360 mL ibuprofen 400 mg tablet 400 mg PO Q4HR PRN Pain, Mild 11/16/22 (1-3) #60 tabs albuterol sulfate 90 mcg/actuation 1 inh inhalation Q4-6H PRN 12/27/22 aerosol inhaler shortness of breath #18 grams omeprazole 40 mg capsule,delayed 40 mg PO DAILY #90 caps 01/01/23 release lidocaine 5 % topical patch 2 patch topical DAILY #30 ea 01/08/23 ketoconazole 2 % topical cream 1 applic topical BID #30 grams 02/08/23 potassium chloride 20 mEq 20 meq PO BID #10 tabs 02/26/23 tablet,extended release ipratropium 0.5 mg-albuterol 3 mg 3 ml inhalation Q6H PRN shortness 03/19/23 (2.5 mg base)/3 mL nebulization of breath or wheezing #90 mL soln nitroglycerin 0.4 mg sublingual 0.4 mg sublingual Q5M PRN chest 03/28/23 tablet pain #20 tabs metoprolol succinate 100 mg 100 mg PO DAILY #90 tabs 07/11/23 tablet,extended release 24 hr sulfasalazine 500 mg tablet 1,000 mg (2 x 500 mg) PO BID #180 07/23/23 tabs meloxicam 15 mg tablet 15 mg PO DAILY #30 tabs 08/13/23 methocarbamol 750 mg tablet 750 mg PO QID #56 tabs 08/13/23 lidocaine 5 % topical patch 1 patch topical DAILY #30 ea 09/02/23 valacyclovir 1 gram tablet 1,000 mg PO TID #30 tabs 09/02/23 hydromorphone 2 mg tablet 2 mg PO BEDTIME PRN pain #30 tabs 09/04/23 oxycodone 10 mg tablet 10 mg PO Q8H PRN pain #84 tabs 09/12/23 prednisone 20 mg tablet 40 mg (2 x 20 mg) PO DAILY #10 tabs 09/12/23 oxycodone 10 mg tablet 10 mg PO BID PRN pain #10 tabs 09/20/23 oxycodone 10 mg tablet 10 mg PO Q8H PRN pain #10 tabs 09/20/23 prednisone 10 mg tablet 10 mg PO DAILY #24 tabs 09/25/23 Allergies Allergy/AdvReac Type Severity Reaction Status Date / Time cyclobenzaprine Allergy Severe Dizziness, Verified 09/25/23 14:45 [From Flexeril] I bounce off ag acetaminophen [ACETAMINOPHEN] AdvReac Unknown Can't take Verified 09/25/23 14:45 r/t Hep C; upset stomach Review of Systems <Zenobia Durbin PA-C - Last Filed: 09/25/23 18:41> Review of Systems ROS Unobtainable: All systems reviewed & are unremarkable except as noted in HPI and below Patient History <Zenobia Durbin PA-C - Last Filed: 09/25/23 18:41> Medical History Left knee pain Chronic diarrhea Eustachian tube dysfunction Seasonal allergic rhinitis Dyspepsia Anemia Tinea Abdominal wall pain in both lower quadrants Constipation Aftercare following left shoulder joint replacement surgery Preoperative clearance Left lateral epicondylitis Adhesive capsulitis Right wrist sprain Oral lesion Colles' fracture Right wrist pain Left shoulder strain Anxiety Fibromyalgia Sinus drainage Chronic ankle pain, bilateral Rheumatoid arthritis Acute exacerbation of chronic bronchitis Foraminal stenosis of lumbar region Peripheral neuropathy Pneumonia (~2018) Impotence (Unknown) Restless leg syndrome (Unknown) Arthritis (Unknown) Chronic pain syndrome (Unknown) Kidney stones (Unknown) Prostate cancer (Unknown) Skin cancer (Unknown) Hepatitis C (Unknown) Hypertension (Unknown) Migraines (Unknown) PTSD (post-traumatic stress disorder) (Unknown) Depression (Unknown) Surgical History S/P lumbar fusion History of lumbar fusion (05/10/22) History of ankle surgery 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 Social History marital status: household members: spouse lives independently: Yes occupational status: previously employed Smoking Status: Former smoker Tobacco: How many years used: 20 quit status: has quit before alcohol intake: former substance use type: former substance user and marijuana Smoking Status: Former smoker tobacco type: cigarettes alcohol intake frequency: 0-2 drinks per day Substance Use Type: does not use Exam <Zenobia Durbin PA-C - Last Filed: 09/25/23 18:41> Narrative Exam Narrative: GENERAL: 77 year old patient appears stated age, moaning. NEURO: AOx3. HEAD: Atraumatic. Normocephalic. EYES: Pupils equal round and reactive. Extraocular motions intact. No scleral icterus. No injection or drainage. ENT: Nose without bleeding or purulent drainage. Airway patent. NECK: Trachea midline. Non tender CARDIOVASCULAR: Regular rate and rhythm without murmurs, gallops, or rubs. RESPIRATORY: Clear to auscultation. Breath sounds equal bilaterally. No wheezes, rales, or rhonchi. EXTREMITIES: Diffuse edema of the left wrist, left fingers. Areas very painful to touch, painful with passive range of motion. Left knee also edematous and tender. SKIN: No rash or erythema of visible areas Initial Vital Signs Initial Vital Signs: Vital Signs Temperature 98.7 F 09/25/23 14:40 Pulse Rate 91 H 09/25/23 14:40 Respiratory Rate 15 09/25/23 14:40 Blood Pressure 157/89 H 09/25/23 14:40 Pulse Oximetry 98 09/25/23 14:40 Oxygen Delivery Method Room Air 09/25/23 14:40 <Mirtha Jameson MD - Last Filed: 09/25/23 18:43> Initial Vital Signs Initial Vital Signs: Vital Signs Temperature 98.7 F 09/25/23 14:40 Pulse Rate 91 H 09/25/23 14:40 Respiratory Rate 15 09/25/23 14:40 Blood Pressure 157/89 H 09/25/23 14:40 Pulse Oximetry 98 09/25/23 14:40 Oxygen Delivery Method Room Air 09/25/23 14:40 Course <Zenobia Durbin PA-C - Last Filed: 09/25/23 18:41> Orders Ordered: Discontinued Medications Ketorolac Tromethamine (Ketorolac 30 Mg/Ml Vial) 30 mg IM NOW ONE Stop: 09/25/23 17:00 Last Admin: 09/25/23 17:10 Dose: 30 mg Documented By: HUGH Oxycodone HCl (Oxycodone Ir 5 Mg Tablet) 10 mg PO NOW ONE Stop: 09/25/23 17:00 Last Admin: 09/25/23 17:16 Dose: 10 mg Documented By: HUGH Prednisone (Prednisone 20 Mg Tablet) 60 mg PO NOW ONE Stop: 09/25/23 17:00 Last Admin: 09/25/23 17:10 Dose: 60 mg Documented By: HUGH Vital Signs Vital signs: Vital Signs - 8 hr 09/25/23 14:40 09/25/23 17:20 Temperature 98.7 F Pulse Rate 91 H 97 H Respiratory Rate 15 20 Blood Pressure 157/89 H 169/99 H Pulse Oximetry 98 99 Oxygen Delivery Method Room Air Room Air <Mirtha Jameson MD - Last Filed: 09/25/23 18:43> Orders Ordered: Discontinued Medications Ketorolac Tromethamine (Ketorolac 30 Mg/Ml Vial) 30 mg IM NOW ONE Stop: 09/25/23 17:00 Last Admin: 09/25/23 17:10 Dose: 30 mg Documented By: HUGH Oxycodone HCl (Oxycodone Ir 5 Mg Tablet) 10 mg PO NOW ONE Stop: 09/25/23 17:00 Last Admin: 09/25/23 17:16 Dose: 10 mg Documented By: HUGH Prednisone (Prednisone 20 Mg Tablet) 60 mg PO NOW ONE Stop: 09/25/23 17:00 Last Admin: 09/25/23 17:10 Dose: 60 mg Documented By: HUGH Vital Signs Vital signs: Vital Signs - 8 hr 09/25/23 14:40 09/25/23 17:20 Temperature 98.7 F Pulse Rate 91 H 97 H Respiratory Rate 15 20 Blood Pressure 157/89 H 169/99 H Pulse Oximetry 98 99 Oxygen Delivery Method Room Air Room Air MDM - Back Pain/Injury <Zenobia Durbin PA-C - Last Filed: 09/25/23 18:41> MDM Narrative Medical decision making narrative: Multiple etiologies for patient's symptoms considered including, but not limited to: Rheumatoid arthritis flare, misuse of prescribed opiate medications, opiate withdrawal, viral infection, septic arthritis. Patient's exam findings are consistent with a rheumatoid arthritis flare given edema and pain of the left wrist and hand and the left knee. I will treat in the emergency room with ketorolac IM, oxycodone and prednisone. We will discharge with a prednisone taper. Patient should follow up with his primary care Dr. Snell in regards to his pain medication. I am not able to refill his pain medication at this time. Patient is disgruntled in regards to this, briefly yelling at his in the emergency room. Patient discharged Patient's symptoms improved over duration of stay with above-stated therapies. Findings and discharge diagnosis discussed with patient/family followed by verbalization of understanding Return precautions discussed with patient/family whom verbalize understanding of diagnosis and plan Discharge Plan Departure Patient Disposition: Home Clinical Impression: Rheumatoid arthritis flare Chronic pain Qualifiers: Chronic pain type: other chronic pain Qualified Code(s): G89.29 - Other chronic pain Instructions: DI for Rheumatoid Arthritis Activity Restrictions/Additional Instructions: *You have been diagnosed with rheumatoid arthritis flare. I have prescribed a course of steroid medication that should help with your pain and swelling. I am unable to prescribe more opiate medications from the emergency room for your pain. Please follow up with Dr. Snell in regards to your chronic pain medications. *What to do: *Please continue to take your regular medications as directed. [x ] New medication prescriptions sent to your pharmacy: [[facility] ] [ ] New medication written as a paper prescription [ ] No new medications given *Please follow up with your primary care provider in 2-3 days, call for an appointment. Let them know you were seen in the Emergency Department and that we ask that you be seen in follow up. We will electronically transmit a record of today's note if your PCP is in our system *If you do not have a primary care provider please contact the [facility] Resource line at [phone]. They will ask some questions about your medical history and help get you set up with a doctor in the community. *Return to Emergency Department if you should have any new, worsening or concerning symptoms, such as [fever greater than 101 F, shaking chills, worsening pain, persistent vomiting or other concerning symptoms]. Prescriptions: New prednisone 10 mg tablet 10 mg PO DAILY Qty: 24 0RF Rx Instructions: 4 tabs daily x3 days, 3 tabs daily x2 days, 2 tabs daily x2 days, then 1 tab daily x2 days No Action fluoxetine 10 mg capsule See Rx Instructions .ROUTE .COMPLEX Qty: 90 3RF Dose Instruction: take 1 capsule by mouth once daily WITH 20MG CAP DAILY TOTAL 30 MG DAILY Rx Instructions: take 1 capsule by mouth once daily WITH 20MG CAP DAILY TOTAL 30 MG DAILY fluoxetine 20 mg capsule 20 mg PO DAILY Qty: 90 3RF Rx Instructions: Take with 10 mg to complete 30 mg dose albuterol sulfate 2.5 mg /3 mL (0.083 %) solution for nebulization 2.5 mg Continuous Nebulization Q6HP PRN (Reason: shortness of breath or wheezing) Qty: 360 2RF albuterol sulfate 90 mcg/actuation HFA aerosol inhaler 1 inh INHALATION Q4-6H PRN (Reason: shortness of breath) Qty: 18 4RF omeprazole 40 mg capsule,delayed release(DR/EC) 40 mg PO DAILY Qty: 90 3RF Rx Instructions: take 1 capsule by mouth once daily lidocaine 5 % adhesive patch,medicated 2 patch topical DAILY Qty: 30 1RF Rx Instructions: leave on most painful area for up to 12 hrs metoprolol succinate 100 mg tablet extended release 24 hr 100 mg PO DAILY Qty: 90 1RF hydromorphone 2 mg tablet 2 mg PO BEDTIME PRN (Reason: pain) Qty: 30 0RF Rx Instructions: Must last to July 29 2023 oxycodone 10 mg tablet 10 mg PO Q8H PRN (Reason: pain) Qty: 84 0RF Rx Instructions: to augment chronic TID dosing due to shingles pain prednisone 20 mg tablet 40 mg PO DAILY Qty: 10 0RF ketoconazole 2 % cream 1 applic topical BID Qty: 30 1RF nitroglycerin 0.4 mg tablet, sublingual 0.4 mg sublingual Q5M PRN (Reason: chest pain) Qty: 20 1RF Rx Instructions: do not exceed 3 doses per episode sulfasalazine 500 mg tablet 1,000 mg PO BID Qty: 180 1RF meloxicam 15 mg tablet 15 mg PO DAILY Qty: 30 0RF methocarbamol 750 mg tablet 750 mg PO QID Qty: 56 0RF potassium chloride 20 mEq tablet extended release 20 meq PO BID Qty: 10 0RF lidocaine 5 % adhesive patch,medicated 1 patch topical DAILY Qty: 30 0RF Rx Instructions: against spine T9 level for shingles pain valacyclovir 1 gram tablet 1,000 mg PO TID Qty: 30 0RF oxycodone 10 mg tablet 10 mg PO Q8H PRN (Reason: pain) Qty: 10 0RF oxycodone 10 mg tablet 10 mg PO BID PRN (Reason: pain) Qty: 10 0RF Disabled Parking Permit 1 1 % SEEINSTR Rx Instructions: Valid for 5 years amlodipine 5 mg tablet 5 mg PO BEDTIME Patient Comments: pt received dose in hospital 11/10/19 early AM admit to AC valacyclovir 1 gram tablet 1,000 mg PO Q8H PRN (Reason: Breakout) hydrochlorothiazide 25 mg tablet 12.5 mg PO QAM losartan 100 mg tablet 100 mg PO DAILY ibuprofen 400 mg Tablet 400 mg PO Q4HR PRN (Reason: Pain, Mild (1-3)) Qty: 60 0RF ipratropium-albuterol 0.5 mg-3 mg(2.5 mg base)/3 mL solution for nebulization 3 ml inhalation Q6H PRN (Reason: shortness of breath or wheezing) Qty: 90 0RF Referrals: Edilberto Snell, DO [Primary Care Provider] - Stand Alone Forms: Patient Portal/API ED Sign-out <Mirtha Jameson MD - Last Filed: 09/25/23 18:43> Cosign ED Attending Cosignature Attestation: I was immediately available in the department for consultation throughout this patient's visit. Mirtha Jameson MD
[2023-09-25] MEDS: predniSONE 20 MG TABLET 60 MG PO (17:10)
[2023-09-25] MEDS: KETOROLAC 30 MG/ML VIAL IM (17:10)
[2023-09-25] MEDS: OXYCODONE IR 5 MG TABLET 10 MG PO (17:16)
[2023-09-25 17:20] VITALS: BP 169/99; PULSE 97; RESP 20; O2SAT 99
== END 2023-09-25 17:52 | disposition home or self-care (01) ==
PROVIDERS: Emergency Provider Physician Assistant; PCP Family Medicine
DX: M06.9 Rheumatoid arthritis, unspecified (principal); Z87.891 Personal history of nicotine dependence
CPT/HCPCS: 96372; 99283; J1885

== ENCOUNTER 2023-09-30 14:13 | Emergency (ER) | payer MEDICARE, OTHER, SELFPAY ==
[2022-11-15 12:10] VITALS: BMI 30.8
[2023-09-30] VITALS (9 sets, daily range): BP systolic 139–171; BP diastolic 63–75; PULSE 62–73; RESP 18; TEMP 36.7; O2SAT 98–99; BMI 31.0
--- NOTE | 2023-09-30 15:40 | DI.RAD.S_ITS ---
PROCEDURE: XR KNEE LT 3V INDICATIONS: trauma TECHNIQUE: 3 views of the knee were acquired. COMPARISON: [facility], , XR KNEE LT 3V, 09/20/2023, 16:34. FINDINGS: Bones: No fractures or dislocations. No suspicious bony lesions. Mild tricompartmental degenerative changes of the left knee. Soft tissues: Small joint effusion. No suspicious soft tissue calcifications. IMPRESSION: Left knee without acute fracture or dislocation. Mild tricompartmental osteoarthrosis of the left knee. Small joint effusion. Dictated by: Tereso Parnell M.D. on 09/30/2023 at 16:29 Approved by: Tereso Parnell M.D. on 09/30/2023 at 16:29
--- NOTE | 2023-09-30 15:40 | DI.CT.S_ITS ---
PROCEDURE: CT HEAD/BRAIN WO CON INDICATIONS: trauma TECHNIQUE: Noncontrast 4.5 mm thick angled axial sections acquired from the foramen magnum to the vertex, with coronal and sagittal reformats. For radiation dose reduction, the following was used: automated exposure control, adjustment of mA and/or kV according to patient size. COMPARISON: [facility], CT, CT HEAD/BRAIN WO CON, 07/10/2023, 14:59. FINDINGS: Image quality: Diagnostic. CSF spaces: Basal cisterns are patent. No extra-axial fluid collections. The ventricles are symmetric in size and shape. Brain: No intracranial bleeds or masses. There is cerebral volume loss for age, with resultant ventricular and sulcal prominence. There are periventricular and deep white matter chronic small vessel ischemic changes. There is intracranial internal carotid artery atherosclerosis. Skull and face: Calvarium and visualized facial bones appear intact, without suspicious lesions. Sinuses: Visualized sinuses and mastoids are clear. IMPRESSION: No acute intracranial pathology. Dictated by: Hebert San M.D. on 09/30/2023 at 16:11 Approved by: Hebert San M.D. on 09/30/2023 at 16:15
--- NOTE | 2023-09-30 15:40 | DI.CT.S_ITS ---
PROCEDURE: CT CERVICAL SPINE WO CON INDICATIONS: trauma TECHNIQUE: Noncontrast 3 mm thick sections acquired from the skull base to the T4 level. Sagittal and coronal reformats were then constructed. For radiation dose reduction, the following was used: automated exposure control, adjustment of mA and/or kV according to patient size. COMPARISON: [facility], CT, CT CERVICAL SPINE WO CON, 07/10/2023, 14:59. FINDINGS: Image quality: Excellent. Bones: No fractures or dislocations. Multilevel degenerative changes. Grade 1 retrolisthesis of C6 on C7 and grade 1 anterolisthesis of C7 on T1. Visualized superior ribs are intact. Soft tissues: Prevertebral soft tissues are normal in thickness. No paravertebral hematomas. No apical pneumothoraces. Atherosclerotic vascular calcifications. IMPRESSION: No acute fracture or traumatic listhesis of the cervical spine. Dictated by: Hebert San M.D. on 09/30/2023 at 16:15 Approved by: Hebert San M.D. on 09/30/2023 at 16:18
--- NOTE | 2023-09-30 15:42 | ED_ITS ---
HPI - Fall General Chief Complaint: Fall Stated Complaint: passed out T-0/GLF/Lknee swollen sent by [facility] Time Seen by Provider: 09/30/23 15:11 Source: patient Mode of arrival: Wheelchair History of Present Illness HPI Narrative: Patient comes to the ED because of left knee pain. Last night he was up taking a routine medication at around 3 or 4 in the morning and the pill got stuck in his throat and he choked and passed out and woke up on the floor. He was sure he was only there for brief period of time and was able to get up off the floor on his own but since the fall really only able to bear his weight slightly on the left knee. He has significant headache and neck pain since the fall as well. Diffuse body pains elsewhere as well. Was not particularly ill prior to the fall nor does he have medical illness at this point rather just the pain from the fall. He does not believe he lost consciousness. Related Data Home Medications Medication Instructions Recorded Confirmed Disabled Parking Permit 1 % SEEINSTR 11/08/20 09/20/23 amlodipine 5 mg tablet 5 mg PO BEDTIME 11/08/22 09/20/23 valacyclovir 1 gram tablet 1,000 mg PO Q8H PRN Breakout 11/08/22 09/20/23 hydrochlorothiazide 25 mg tablet 12.5 mg PO QAM 11/15/22 09/20/23 losartan 100 mg tablet 100 mg PO DAILY 11/15/22 09/20/23 Previous Rx's Medication Instructions Recorded fluoxetine 10 mg capsule See Rx Instructions .Route 08/14/22 .COMPLEX #90 caps fluoxetine 20 mg capsule 20 mg PO DAILY #90 caps 08/14/22 albuterol sulfate 2.5 mg/3 mL 2.5 mg (3 mL) continuous 10/24/22 (0.083 %) solution for nebulization nebulization Q6HP PRN shortness of breath or wheezing #360 mL ibuprofen 400 mg tablet 400 mg PO Q4HR PRN Pain, Mild 11/16/22 (1-3) #60 tabs albuterol sulfate 90 mcg/actuation 1 inh inhalation Q4-6H PRN 12/27/22 aerosol inhaler shortness of breath #18 grams omeprazole 40 mg capsule,delayed 40 mg PO DAILY #90 caps 01/01/23 release lidocaine 5 % topical patch 2 patch topical DAILY #30 ea 01/08/23 ketoconazole 2 % topical cream 1 applic topical BID #30 grams 02/08/23 potassium chloride 20 mEq 20 meq PO BID #10 tabs 02/26/23 tablet,extended release ipratropium 0.5 mg-albuterol 3 mg 3 ml inhalation Q6H PRN shortness 03/19/23 (2.5 mg base)/3 mL nebulization of breath or wheezing #90 mL soln nitroglycerin 0.4 mg sublingual 0.4 mg sublingual Q5M PRN chest 03/28/23 tablet pain #20 tabs metoprolol succinate 100 mg 100 mg PO DAILY #90 tabs 07/11/23 tablet,extended release 24 hr sulfasalazine 500 mg tablet 1,000 mg (2 x 500 mg) PO BID #180 07/23/23 tabs meloxicam 15 mg tablet 15 mg PO DAILY #30 tabs 08/13/23 methocarbamol 750 mg tablet 750 mg PO QID #56 tabs 08/13/23 lidocaine 5 % topical patch 1 patch topical DAILY #30 ea 09/02/23 valacyclovir 1 gram tablet 1,000 mg PO TID #30 tabs 09/02/23 hydromorphone 2 mg tablet 2 mg PO BEDTIME PRN pain #30 tabs 09/04/23 oxycodone 10 mg tablet 10 mg PO Q8H PRN pain #84 tabs 09/12/23 prednisone 20 mg tablet 40 mg (2 x 20 mg) PO DAILY #10 tabs 09/12/23 oxycodone 10 mg tablet 10 mg PO BID PRN pain #10 tabs 09/20/23 oxycodone 10 mg tablet 10 mg PO Q8H PRN pain #10 tabs 09/20/23 prednisone 10 mg tablet 10 mg PO DAILY #24 tabs 09/25/23 Allergies Allergy/AdvReac Type Severity Reaction Status Date / Time cyclobenzaprine Allergy Severe Dizziness, Verified 09/30/23 14:21 [From Flexeril] I bounce off ag acetaminophen [ACETAMINOPHEN] AdvReac Unknown Can't take Verified 09/30/23 14:21 r/t Hep C; upset stomach Patient History Medical History Left knee pain Chronic diarrhea Eustachian tube dysfunction Seasonal allergic rhinitis Dyspepsia Anemia Tinea Abdominal wall pain in both lower quadrants Constipation Aftercare following left shoulder joint replacement surgery Preoperative clearance Left lateral epicondylitis Adhesive capsulitis Right wrist sprain Oral lesion Colles' fracture Right wrist pain Left shoulder strain Anxiety Fibromyalgia Sinus drainage Chronic ankle pain, bilateral Rheumatoid arthritis Acute exacerbation of chronic bronchitis Foraminal stenosis of lumbar region Peripheral neuropathy Pneumonia (~2018) Impotence (Unknown) Restless leg syndrome (Unknown) Arthritis (Unknown) Chronic pain syndrome (Unknown) Kidney stones (Unknown) Prostate cancer (Unknown) Skin cancer (Unknown) Hepatitis C (Unknown) Hypertension (Unknown) Migraines (Unknown) PTSD (post-traumatic stress disorder) (Unknown) Depression (Unknown) Surgical History S/P lumbar fusion History of lumbar fusion (05/10/22) History of ankle surgery 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 Social History marital status: household members: spouse lives independently: Yes occupational status: previously employed Smoking Status: Former smoker Tobacco: How many years used: 20 quit status: has quit before alcohol intake: former substance use type: former substance user and marijuana Smoking Status: Former smoker tobacco type: cigarettes alcohol intake frequency: 0-2 drinks per day Substance Use Type: does not use Exam Narrative Exam Narrative: GENERAL: Alert, cooperative and in no distress. HEAD: Atraumatic. Normocephalic. EYES: Sclera are clear without icterus. Extraocular movements are full. ENT: No rhinorrhea NECK: Supple. Full range of motion. Midline tenderness posteriorly. Full range of motion but pain with movement. CARDIOVASCULAR: Normal rate and rhythm without murmur gallop or rub. RESPIRATORY: Clear to auscultation. Breath sounds equal bilaterally. No wheezes, rales, or rhonchi. GASTROINTESTINAL: Abdomen soft, non-tender, nondistended. EXTREMITIES: No edema, full range of motion. No obvious trauma. Good range of motion of the upper and lower extremities with the exception of the left knee. He has good range of motion but pain with movement. No obvious trauma or contusion but he does have warmth to the knee and a little bit of swelling. BACK: Normal inspection, no CVA tenderness. NEURO: Nonfocal examination, normal speech SKIN: No rash or erythema of visible areas PSYCH: Normally oriented. Normal range of affect. Appropriate behavior Initial Vital Signs Initial Vital Signs: Vital Signs Temperature 98.1 F 09/30/23 14:21 Pulse Rate 72 09/30/23 14:21 Respiratory Rate 18 09/30/23 14:21 Blood Pressure 171/72 H 09/30/23 14:21 Pulse Oximetry 98 09/30/23 14:21 Oxygen Delivery Method Room Air 09/30/23 14:21 Course Orders Ordered: ED Orders 09/30/23 15:40 CT cervical spine wo con Stat CT head/brain wo con Stat XR knee LT 3V Stat 09/30/23 17:08 CT LE LT wo con Stat Discontinued Medications Acetaminophen (Acetaminophen 325 Mg Tablet) 975 mg PO NOW ONE Stop: 09/30/23 17:08 Last Admin: 09/30/23 17:16 Dose: 975 mg Documented By: JAMES Ibuprofen (Ibuprofen 400 Mg Tablet) 800 mg PO NOW ONE Stop: 09/30/23 17:08 Last Admin: 09/30/23 17:15 Dose: 800 mg Documented By: JAMES Oxycodone HCl (Oxycodone Ir 5 Mg Tablet) 5 mg PO NOW ONE Stop: 09/30/23 17:08 Last Admin: 09/30/23 17:15 Dose: 5 mg Documented By: JAMES Oxycodone HCl (Oxycodone Ir 5 Mg Tablet) 10 mg PO NOW ONE Stop: 09/30/23 17:51 Vital Signs Vital signs: Vital Signs - 8 hr 09/30/23 14:21 09/30/23 14:30 09/30/23 14:30 Temperature 98.1 F Pulse Rate 72 73 Respiratory Rate 18 Blood Pressure 171/72 H 156/75 H Pulse Oximetry 98 99 Oxygen Delivery Method Room Air 09/30/23 15:00 09/30/23 15:00 09/30/23 15:30 Temperature Pulse Rate 65 62 Respiratory Rate Blood Pressure 139/63 Pulse Oximetry 98 99 Oxygen Delivery Method 09/30/23 15:31 09/30/23 15:31 09/30/23 16:01 Temperature Pulse Rate 62 71 Respiratory Rate Blood Pressure 162/69 H Pulse Oximetry 99 99 Oxygen Delivery Method 09/30/23 16:30 09/30/23 17:00 Temperature Pulse Rate 68 68 Respiratory Rate Blood Pressure Pulse Oximetry 98 98 Oxygen Delivery Method MDM - Fall MDM Narrative Medical decision making narrative: Patient had a ground level fall on initial exam he has pains in lots of areas but I doubt fracture. After the imaging is done with plain films still has quite a bit of knee pain on the left. He has pain with medial stress and says he is really unable to bear weight at all so I will proceed with CT of the left knee to appreciate has never tibial plateau fracture. Will administer pain medication now. 1753 Patient is still in a lot of pain. CT shows no tibial plateau fracture. We will put him in a splint for comfort and stability. Discharge Plan Departure Patient Disposition: Home Clinical Impression: Fall, Contusion of knee, left, Contusion of back Activity Restrictions/Additional Instructions: After careful imaging and evaluation, no dangerous injuries are identified. I recommend follow-up with the clinic in a week if symptoms are not improved. I recommend Tylenol 1000 mg taken together with ibuprofen 600 mg every 6 hours. Ice can be helpful but do not use it for longer than 30 minutes at a time. Use the knee brace for stability. Crutch walking as needed. Follow-up right away for new or worsening symptoms. Prescriptions: No Action fluoxetine 10 mg capsule See Rx Instructions .ROUTE .COMPLEX Qty: 90 3RF Dose Instruction: take 1 capsule by mouth once daily WITH 20MG CAP DAILY TOTAL 30 MG DAILY Rx Instructions: take 1 capsule by mouth once daily WITH 20MG CAP DAILY TOTAL 30 MG DAILY fluoxetine 20 mg capsule 20 mg PO DAILY Qty: 90 3RF Rx Instructions: Take with 10 mg to complete 30 mg dose albuterol sulfate 2.5 mg /3 mL (0.083 %) solution for nebulization 2.5 mg Continuous Nebulization Q6HP PRN (Reason: shortness of breath or wheezing) Qty: 360 2RF albuterol sulfate 90 mcg/actuation HFA aerosol inhaler 1 inh INHALATION Q4-6H PRN (Reason: shortness of breath) Qty: 18 4RF omeprazole 40 mg capsule,delayed release(DR/EC) 40 mg PO DAILY Qty: 90 3RF Rx Instructions: take 1 capsule by mouth once daily lidocaine 5 % adhesive patch,medicated 2 patch topical DAILY Qty: 30 1RF Rx Instructions: leave on most painful area for up to 12 hrs metoprolol succinate 100 mg tablet extended release 24 hr 100 mg PO DAILY Qty: 90 1RF hydromorphone 2 mg tablet 2 mg PO BEDTIME PRN (Reason: pain) Qty: 30 0RF Rx Instructions: Must last to July 29 2023 oxycodone 10 mg tablet 10 mg PO Q8H PRN (Reason: pain) Qty: 84 0RF Rx Instructions: to augment chronic TID dosing due to shingles pain prednisone 20 mg tablet 40 mg PO DAILY Qty: 10 0RF ketoconazole 2 % cream 1 applic topical BID Qty: 30 1RF nitroglycerin 0.4 mg tablet, sublingual 0.4 mg sublingual Q5M PRN (Reason: chest pain) Qty: 20 1RF Rx Instructions: do not exceed 3 doses per episode sulfasalazine 500 mg tablet 1,000 mg PO BID Qty: 180 1RF meloxicam 15 mg tablet 15 mg PO DAILY Qty: 30 0RF methocarbamol 750 mg tablet 750 mg PO QID Qty: 56 0RF potassium chloride 20 mEq tablet extended release 20 meq PO BID Qty: 10 0RF lidocaine 5 % adhesive patch,medicated 1 patch topical DAILY Qty: 30 0RF Rx Instructions: against spine T9 level for shingles pain valacyclovir 1 gram tablet 1,000 mg PO TID Qty: 30 0RF oxycodone 10 mg tablet 10 mg PO Q8H PRN (Reason: pain) Qty: 10 0RF oxycodone 10 mg tablet 10 mg PO BID PRN (Reason: pain) Qty: 10 0RF Disabled Parking Permit 1 1 % SEEINSTR Rx Instructions: Valid for 5 years amlodipine 5 mg tablet 5 mg PO BEDTIME Patient Comments: pt received dose in hospital 11/10/19 early AM admit to valacyclovir 1 gram tablet 1,000 mg PO Q8H PRN (Reason: Breakout) hydrochlorothiazide 25 mg tablet 12.5 mg PO QAM losartan 100 mg tablet 100 mg PO DAILY ibuprofen 400 mg Tablet 400 mg PO Q4HR PRN (Reason: Pain, Mild (1-3)) Qty: 60 0RF ipratropium-albuterol 0.5 mg-3 mg(2.5 mg base)/3 mL solution for nebulization 3 ml inhalation Q6H PRN (Reason: shortness of breath or wheezing) Qty: 90 0RF prednisone 10 mg tablet 10 mg PO DAILY Qty: 24 0RF Rx Instructions: 4 tabs daily x3 days, 3 tabs daily x2 days, 2 tabs daily x2 days, then 1 tab daily x2 days Referrals: Edilberto Snell DO [Primary Care Provider] - Stand Alone Forms: Patient Portal/API
--- NOTE | 2023-09-30 17:03 | PC.NURSE ---
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 Gallagher aware, no new orders. pt states I need help and no one is helping me, reports I am not drug seeking, pt reports taking his last oxy this morning then I ran out and called my doctor but they told me to come here Dr. Gallagher at bedside now.
--- NOTE | 2023-09-30 17:08 | DI.CT.S_ITS ---
PROCEDURE: CT LE LT W CON INDICATIONS: trauma TECHNIQUE: Noncontrast 1-1.5 mm axial sections acquired from the mid-patella to the proximal tibia, with coronal and sagittal reformats. COMPARISON: Left knee radiographs 09/30/2023, 09/20/2023. FINDINGS: Image quality: Excellent. Bones: No acute fracture or dislocation of the left knee. Mild tricompartmental osteoarthrosis. Soft tissues: Small suprapatellar joint effusion. IMPRESSION: No acute osseous abnormality. Small suprapatellar joint effusion. If there is continued clinical concern for internal derangement further evaluation with MRI can be considered. Dictated by: Kaya Leigh M.D. on 09/30/2023 at 17:39 Approved by: Kaya Leigh M.D. on 09/30/2023 at 17:46
[2023-09-30] MEDS: OXYCODONE IR 5 MG TABLET PO (17:15)
[2023-09-30] MEDS: IBUPROFEN 400 MG TABLET 800 MG PO (17:15)
[2023-09-30] MEDS: ACETAMINOPHEN 325 MG TABLET 975 MG PO (17:16)
[2023-09-30] MEDS: OXYCODONE IR 5 MG TABLET 10 MG PO (17:56)
--- NOTE | 2023-09-30 18:11 | PC.NURSE ---
at time of d/c pt states why do these papers say tylenol on here, I didn't get tylenol, pt re-educated on orders from jah/dr. humphreys that he received during his time in ED. pt states that's why my stomach hurts! I am allergic to tylenol, attempted education on dr orders and allergic rx s/s. pt agitated, states i didn't know I was getting tylenol, pt educated on meds given, including ibuprofen, tylenol, and two separate doses of oxy. pt states i can;t believe this and requested to be taken out to car in wheelchair. pt alert, oriented, skin wnl, able to stand and transfer to wheelchair appropriately. no acute medical distress noted. pt escorted to vehicle without issue. left ed in nad w/ all belongings.
== END 2023-09-30 18:14 | disposition home or self-care (01) ==
PROVIDERS: Emergency Provider Family Medicine Addiction Medicine; PCP Family Medicine
DX: S80.02XA Contusion of left knee, initial encounter (principal); S30.0XXA Contusion of lower back and pelvis, initial encounter; R51.9 Headache, unspecified; M54.2 Cervicalgia; W19.XXXA Unspecified fall, initial encounter
CPT/HCPCS: 70450; 72125; 73562; 73700; 99284

== ENCOUNTER 2023-10-01 12:27 | Emergency (ER) | payer MEDICARE, OTHER, SELFPAY ==
[2022-11-15 12:10] VITALS: BMI 30.8
[2023-10-01 12:39] VITALS: BP 170/84; PULSE 77; RESP 18; TEMP 37.2; O2SAT 98; BMI 29.4
--- NOTE | 2023-10-01 12:42 | DI.RAD.S_ITS ---
PROCEDURE: XR WRIST RT MIN 3V INDICATIONS: fall TECHNIQUE: 4 views of the wrist were acquired. COMPARISON: [facility], CR, XR WRIST LT MIN 3V, 07/10/2023, 13:42. [facility], CR, XR WRIST RT MIN 3V, 06/28/2023, 8:19. FINDINGS: Bones: Increased subluxation of the scapholunate interval. Stable remote fracture of the ulnar styloid. Soft tissues: No suspicious soft tissue calcifications. IMPRESSION: Scapholunate dissociation, slightly increased from prior. No acute bony abnormality otherwise. Dictated by: Jason Hdez M.D. on 10/01/2023 at 13:28 Approved by: Jason Hdez M.D. on 10/01/2023 at 13:30
[2023-10-01 14:35] VITALS: BP 151/83; PULSE 73; RESP 20; O2SAT 99
--- NOTE | 2023-10-01 14:38 | ED.FALL ---
HPI - Fall <Jayshree Jarquin PA-C - Last Filed: 10/01/23 16:47> General Chief Complaint: Fall Stated Complaint: fell/lt knee inj Time Seen by Provider: 10/01/23 14:33 Source: patient Mode of arrival: Wheelchair History of Present Illness HPI Narrative: Patient is a 77-year-old male presenting for evaluation of right wrist pain after falling while going to the bathroom. He states he tripped and fell behind the couch. He reports pain in his left knee and over his right wrist. He denies hitting his head and denies taking any anticoagulants. He states that he is out of his pain medication, he would like medication to treat the pain in his right wrist. He also notes some back discomfort. He is uncertain if he further injured his left knee. He was seen 1 day ago on the in the ER after a fall. He was diagnosed with contusion of left knee and contusion of back. He received a CT of his tibia which did not show any tibial plateau fracture. He was given a brace and instructed to follow up if symptoms worsened. He states he was wearing his brace when he fell. Review of medication record shows that he was prescribed 2 mg of Dilaudid per day on September 04, 2023 and given a prescription for 10 mg of oxycodone 3 per day on September 12, 2023. He states that he is out of his medication. Related Data Home Medications Medication Instructions Recorded Confirmed Disabled Parking Permit 1 % SEEINSTR 11/08/20 09/20/23 amlodipine 5 mg tablet 5 mg PO BEDTIME 11/08/22 09/20/23 valacyclovir 1 gram tablet 1,000 mg PO Q8H PRN Breakout 11/08/22 09/20/23 hydrochlorothiazide 25 mg tablet 12.5 mg PO QAM 11/15/22 09/20/23 losartan 100 mg tablet 100 mg PO DAILY 11/15/22 09/20/23 Previous Rx's Medication Instructions Recorded fluoxetine 10 mg capsule See Rx Instructions .Route 08/14/22 .COMPLEX #90 caps fluoxetine 20 mg capsule 20 mg PO DAILY #90 caps 08/14/22 albuterol sulfate 2.5 mg/3 mL 2.5 mg (3 mL) continuous 10/24/22 (0.083 %) solution for nebulization nebulization Q6HP PRN shortness of breath or wheezing #360 mL ibuprofen 400 mg tablet 400 mg PO Q4HR PRN Pain, Mild 11/16/22 (1-3) #60 tabs albuterol sulfate 90 mcg/actuation 1 inh inhalation Q4-6H PRN 12/27/22 aerosol inhaler shortness of breath #18 grams omeprazole 40 mg capsule,delayed 40 mg PO DAILY #90 caps 01/01/23 release lidocaine 5 % topical patch 2 patch topical DAILY #30 ea 01/08/23 ketoconazole 2 % topical cream 1 applic topical BID #30 grams 02/08/23 potassium chloride 20 mEq 20 meq PO BID #10 tabs 02/26/23 tablet,extended release ipratropium 0.5 mg-albuterol 3 mg 3 ml inhalation Q6H PRN shortness 03/19/23 (2.5 mg base)/3 mL nebulization of breath or wheezing #90 mL soln nitroglycerin 0.4 mg sublingual 0.4 mg sublingual Q5M PRN chest 03/28/23 tablet pain #20 tabs metoprolol succinate 100 mg 100 mg PO DAILY #90 tabs 07/11/23 tablet,extended release 24 hr sulfasalazine 500 mg tablet 1,000 mg (2 x 500 mg) PO BID #180 07/23/23 tabs meloxicam 15 mg tablet 15 mg PO DAILY #30 tabs 08/13/23 methocarbamol 750 mg tablet 750 mg PO QID #56 tabs 08/13/23 lidocaine 5 % topical patch 1 patch topical DAILY #30 ea 09/02/23 valacyclovir 1 gram tablet 1,000 mg PO TID #30 tabs 09/02/23 hydromorphone 2 mg tablet 2 mg PO BEDTIME PRN pain #30 tabs 09/04/23 oxycodone 10 mg tablet 10 mg PO Q8H PRN pain #84 tabs 09/12/23 prednisone 20 mg tablet 40 mg (2 x 20 mg) PO DAILY #10 tabs 09/12/23 oxycodone 10 mg tablet 10 mg PO BID PRN pain #10 tabs 09/20/23 oxycodone 10 mg tablet 10 mg PO Q8H PRN pain #10 tabs 09/20/23 prednisone 10 mg tablet 10 mg PO DAILY #24 tabs 09/25/23 Allergies Allergy/AdvReac Type Severity Reaction Status Date / Time cyclobenzaprine Allergy Severe Dizziness, Verified 10/01/23 12:42 [From Flexeril] I bounce off ag acetaminophen [ACETAMINOPHEN] AdvReac Unknown Can't take Verified 10/01/23 12:42 r/t Hep C; upset stomach Patient History <Jayshree Jarquin PA-C - Last Filed: 10/01/23 16:47> Medical History Left knee pain Chronic diarrhea Eustachian tube dysfunction Seasonal allergic rhinitis Dyspepsia Anemia Tinea Abdominal wall pain in both lower quadrants Constipation Aftercare following left shoulder joint replacement surgery Preoperative clearance Left lateral epicondylitis Adhesive capsulitis Right wrist sprain Oral lesion Colles' fracture Right wrist pain Left shoulder strain Anxiety Fibromyalgia Sinus drainage Chronic ankle pain, bilateral Rheumatoid arthritis Acute exacerbation of chronic bronchitis Foraminal stenosis of lumbar region Peripheral neuropathy Pneumonia (~2017) Impotence (Unknown) Restless leg syndrome (Unknown) Arthritis (Unknown) Chronic pain syndrome (Unknown) Kidney stones (Unknown) Prostate cancer (Unknown) Skin cancer (Unknown) Hepatitis C (Unknown) Hypertension (Unknown) Migraines (Unknown) PTSD (post-traumatic stress disorder) (Unknown) Depression (Unknown) Surgical History S/P lumbar fusion History of lumbar fusion (05/10/22) History of ankle surgery 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 Social History marital status: household members: spouse lives independently: Yes occupational status: previously employed Smoking Status: Former smoker Tobacco: How many years used: 20 quit status: has quit before alcohol intake: former substance use type: former substance user and marijuana Smoking Status: Former smoker tobacco type: cigarettes alcohol intake frequency: 0-2 drinks per day Substance Use Type: does not use Exam <SAWYER Guzamn Last Filed: 10/01/23 16:47> Initial Vital Signs Initial Vital Signs: Vital Signs Temperature 98.9 F 10/01/23 12:39 Pulse Rate 77 10/01/23 12:39 Respiratory Rate 18 10/01/23 12:39 Blood Pressure 170/84 H 10/01/23 12:39 Pulse Oximetry 98 10/01/23 12:39 Oxygen Delivery Method Room Air 10/01/23 12:39 GENERAL:77year old patient appears stated age. Well-developed patient, in no acute distress. HEAD: Atraumatic. Normocephalic. EYES: Pupils equal round. NECK: Trachea midline. Non tender. CARDIOVASCULAR: Regular rate and rhythm without murmurs, gallops, or rubs. RESPIRATORY: Clear to auscultation. Breath sounds equal bilaterally. No wheezes, rales, or rhonchi. EXTREMITIES: Tender over palpation of left dorsal wrist across BACK: No deformity or crepitance palpated, tender to palpation of thoracic and lumbar spine, No flank tenderness. NEURO: AOx3. SKIN: No rash or erythema of visible areas <DO Glendy Raymond Last Filed: 10/01/23 17:29> Initial Vital Signs Initial Vital Signs: Vital Signs Temperature 98.9 F 10/01/23 12:39 Pulse Rate 77 10/01/23 12:39 Respiratory Rate 18 10/01/23 12:39 Blood Pressure 170/84 H 10/01/23 12:39 Pulse Oximetry 98 10/01/23 12:39 Oxygen Delivery Method Room Air 10/01/23 12:39 Course <Jayshree Jarquin PA-C - Last Filed: 10/01/23 16:47> Orders Ordered: ED Orders 10/01/23 12:42 XR wrist RT min 3V Stat Vital Signs Vital signs: Vital Signs - 8 hr 10/01/23 12:39 10/01/23 14:35 Temperature 98.9 F Pulse Rate 77 73 Respiratory Rate 18 20 Blood Pressure 170/84 H 151/83 H Pulse Oximetry 98 99 Oxygen Delivery Method Room Air Room Air <DO Glendy Raymond Last Filed: 10/01/23 17:29> Orders Ordered: ED Orders 10/01/23 12:42 XR wrist RT min 3V Stat Vital Signs Vital signs: Vital Signs - 8 hr 10/01/23 12:39 10/01/23 14:35 Temperature 98.9 F Pulse Rate 77 73 Respiratory Rate 18 20 Blood Pressure 170/84 H 151/83 H Pulse Oximetry 98 99 Oxygen Delivery Method Room Air Room Air MDM - Fall <Jayshree Jarquin PA-C - Last Filed: 10/01/23 16:47> Imaging Data wrist xray: Radiologist's Impression: PROCEDURE: XR WRIST RT MIN 3V INDICATIONS: fall TECHNIQUE: 4 views of the wrist were acquired. COMPARISON: [facility], CR, XR WRIST LT MIN 3V, 07/10/2023, 13:42. [facility], CR, XR WRIST RT MIN 3V, 06/28/2023, 8:19. FINDINGS: Bones: Increased subluxation of the scapholunate interval. Stable remote fracture of the ulnar styloid. Soft tissues: No suspicious soft tissue calcifications. IMPRESSION: Scapholunate dissociation, slightly increased from prior. No acute bony abnormality otherwise. Dictated by: Jason Hdez M.D. on 10/01/2023 at 13:28 Approved by: Jason Hdez M.D. on 10/01/2023 at 13:30 [facility] Narrative Medical decision making narrative: Discussion with Dr. Sidhu: instructed that patient should receive no opioids. Discussed with patient that we can offer him non opiate treatment options today. He states that he gets hives and stomach upset from Tylenol, and he reports he has a history of gastric ulcers. I advised him to call his primary care office to discuss his pain medication. Review of medication record shows that he received a month's prescription for 2 mg of Dilaudid daily on September 04, 2023 as well as a month's prescription of 10 mg oxycodone 3 times a day on 09/12/2023, so he should still have pain medication at home, and may discuss with his primary care provider further pain treatment options. Discussed results of right wrist x-ray with patient showing subluxation scapholunate with no fracture.. He is eager to go home, but is agreeable to receive a thumb spica splint, and he will plan to follow up with his primary care provider. Discussed with patient whether he wanted further evaluation of his left knee or his back, since he is uncertain if he hurt it further during his fall today. He states that he would like to go home and does not want any further workup. He has been given a splint prior to leaving. Recommend he follow up if he should develop any worsening symptoms or ability. Discharge Plan Departure Patient Disposition: Home Clinical Impression: Left wrist sprain Qualifiers: Encounter type: initial encounter Qualified Code(s): S63.502A - Unspecified sprain of left wrist, initial encounter Activity Restrictions/Additional Instructions: You were diagnosed today with a sprain of your left wrist. X-ray showed increased subluxation of scapholunate interval indicating that it seems to be that this is a worsening of the previous sprain that you have had in the past. X-ray also showed an old fracture on the pinky side of your forearm. I recommend that you apply ice, wear the splint for comfort and continue follow up with your primary care provider within the next week for evaluation of your left knee and right wrist. Please follow up for any worsening symptoms. Thank you for coming in today for your care. *What to do: *Please continue to take your regular medications as directed. [ x] No new medications given *Please follow up with your primary care provider in the next week, call for an appointment. Let them know you were seen in the Emergency Department and that we ask that you be seen in follow up. We will electronically transmit a record of today's note if your PCP is in our system *If you do not have a primary care provider please contact the [facility] Resource line at [phone]. They will ask some questions about your medical history and help get you set up with a doctor in the community. *Return to Emergency Department if you should have any new, worsening or concerning symptoms such as numbness, worsening pain in left knee or right wrist or other concerning signs or symptoms. Prescriptions: No Action fluoxetine 10 mg capsule See Rx Instructions .ROUTE .COMPLEX Qty: 90 3RF Dose Instruction: take 1 capsule by mouth once daily WITH 20MG CAP DAILY TOTAL 30 MG DAILY Rx Instructions: take 1 capsule by mouth once daily WITH 20MG CAP DAILY TOTAL 30 MG DAILY fluoxetine 20 mg capsule 20 mg PO DAILY Qty: 90 3RF Rx Instructions: Take with 10 mg to complete 30 mg dose albuterol sulfate 2.5 mg /3 mL (0.083 %) solution for nebulization 2.5 mg Continuous Nebulization Q6HP PRN (Reason: shortness of breath or wheezing) Qty: 360 2RF albuterol sulfate 90 mcg/actuation HFA aerosol inhaler 1 inh INHALATION Q4-6H PRN (Reason: shortness of breath) Qty: 18 4RF omeprazole 40 mg capsule,delayed release(DR/EC) 40 mg PO DAILY Qty: 90 3RF Rx Instructions: take 1 capsule by mouth once daily lidocaine 5 % adhesive patch,medicated 2 patch topical DAILY Qty: 30 1RF Rx Instructions: leave on most painful area for up to 12 hrs metoprolol succinate 100 mg tablet extended release 24 hr 100 mg PO DAILY Qty: 90 1RF hydromorphone 2 mg tablet 2 mg PO BEDTIME PRN (Reason: pain) Qty: 30 0RF Rx Instructions: Must last to July 29 2023 oxycodone 10 mg tablet 10 mg PO Q8H PRN (Reason: pain) Qty: 84 0RF Rx Instructions: to augment chronic TID dosing due to shingles pain prednisone 20 mg tablet 40 mg PO DAILY Qty: 10 0RF ketoconazole 2 % cream 1 applic topical BID Qty: 30 1RF nitroglycerin 0.4 mg tablet, sublingual 0.4 mg sublingual Q5M PRN (Reason: chest pain) Qty: 20 1RF Rx Instructions: do not exceed 3 doses per episode sulfasalazine 500 mg tablet 1,000 mg PO BID Qty: 180 1RF meloxicam 15 mg tablet 15 mg PO DAILY Qty: 30 0RF methocarbamol 750 mg tablet 750 mg PO QID Qty: 56 0RF potassium chloride 20 mEq tablet extended release 20 meq PO BID Qty: 10 0RF lidocaine 5 % adhesive patch,medicated 1 patch topical DAILY Qty: 30 0RF Rx Instructions: against spine T9 level for shingles pain valacyclovir 1 gram tablet 1,000 mg PO TID Qty: 30 0RF oxycodone 10 mg tablet 10 mg PO Q8H PRN (Reason: pain) Qty: 10 0RF oxycodone 10 mg tablet 10 mg PO BID PRN (Reason: pain) Qty: 10 0RF Disabled Parking Permit 1 1 % SEEINSTR Rx Instructions: Valid for 5 years amlodipine 5 mg tablet 5 mg PO BEDTIME Patient Comments: pt received dose in hospital 11/10/19 early AM admit to [facility] valacyclovir 1 gram tablet 1,000 mg PO Q8H PRN (Reason: Breakout) hydrochlorothiazide 25 mg tablet 12.5 mg PO QAM losartan 100 mg tablet 100 mg PO DAILY ibuprofen 400 mg Tablet 400 mg PO Q4HR PRN (Reason: Pain, Mild (1-3)) Qty: 60 0RF ipratropium-albuterol 0.5 mg-3 mg(2.5 mg base)/3 mL solution for nebulization 3 ml inhalation Q6H PRN (Reason: shortness of breath or wheezing) Qty: 90 0RF prednisone 10 mg tablet 10 mg PO DAILY Qty: 24 0RF Rx Instructions: 4 tabs daily x3 days, 3 tabs daily x2 days, 2 tabs daily x2 days, then 1 tab daily x2 days Referrals: Edilberto Snell DO [Primary Care Provider] - Stand Alone Forms: Patient Portal/API ED Sign-out <Geovanny Sidhu DO - Last Filed: 10/01/23 17:29> Cosign ED Attending Cosignature Attestation: Dr Sidhu Co-Sign Statement: I was available for consultation during this patient's emergency department visit. This chart is signed by myself for administrative purposes only. I did not have direct contact with this patient during this visit. They were seen independently by the [facility].
--- NOTE | 2023-10-01 15:11 | PC.NURSE ---
responded to call light, pt states i want to go home, there's not a lot you people can do for me. Provider made aware of pt's request to leave.
== END 2023-10-01 15:32 | disposition home or self-care (01) ==
PROVIDERS: Emergency Provider Physician Assistant; PCP Family Medicine
DX: S63.502A Unspecified sprain of left wrist, initial encounter (principal); W01.0XXA Fall on same level from slipping, tripping and stumbling without subsequent striking against object, initial encounter
CPT/HCPCS: 73110; 99283

== ENCOUNTER → 2023-10-22 12:30 | Outpatient (CLI) | payer MEDICARE, OTHER, SELFPAY ==
[2022-11-15 12:10] VITALS: BMI 30.8
[2023-10-22 13:17] LABS: Add Manual Diff / Slide Review NO; Basophils Absolute Auto 100 /uL (0-100); Eosinophils Absolute Auto 300 /uL (0-450); Eosinophils Percent Auto 2.8 % (2-4); Hematocrit 30.4 % (41-53); Hemoglobin 10.1 g/dL (13.5-17.5); Lymphocytes Absolute Auto 1700 /uL (1100-4500); Lymphocytes Percent Auto 18.3 % (25-40); Mean Corpuscular HGB Conc 33.3 % (30-36); Mean Corpuscular Hemoglobin 25.7 PG (26-34); Mean Corpuscular Volume 77.3 fL (80-100); Monocytes Absolute Auto 1400 /uL (0-900); Monocytes Percent Auto 15.1 % (3-14); Neutrophils Absolute Auto 5700 /uL (1500-7000); Neutrophils Percent Auto 62.8 % (50-75); Platelet Count 256 X10^3/uL (150-400); Red Blood Cell Count 3.93 X10^6/uL (4.5-5.9); Red Cell Distribution Width 16.3 % (11.6-14.8); White Blood Cell Count 9.1 X10^3/uL (4.5-11.0)
[2023-10-22 13:38] LABS: HEMOLYSIS < 15 (0-50); Iron 37 ug/dL (49-181)
[2023-10-22 13:40] LABS: Alanine Aminotransferase 15 IU/L (<50); Albumin 3.8 g/dL (3.5-5.0); Albumin Globulin Ratio 1.2 (1.0-2.8); Alkaline Phosphatase 84 U/L (38-126); Aspartate Aminotransferase 21 IU/L (17-59); BUN Creatinine Ratio 19.7 (6-22); Bilirubin Total 0.4 mg/dL (0.2-1.3); Blood Urea Nitrogen 14 mg/dL (9-20); Calcium 8.7 mg/dL (8.4-10.2); Carbon Dioxide 28 mmol/L (22-32); Chloride 97 mmol/L (98-107); Estimated Glomerular Filt Rate > 60 mL/min (>60); Globulin 3.3 g/dL (1.7-4.1); Glucose 118 mg/dL (80-110); HEMOLYSIS < 15 (0-50); Potassium 3.6 mmol/L (3.4-5.1); Sodium 134 mmol/L (137-145); Total Protein 7.1 g/dL (6.3-8.2)
[2023-10-22 13:49] LABS: Percent Iron Saturation 13 % (20-50); Total Iron Binding Capacity 280 ug/dL (261-462); Transferrin 228 mg/dL (206-381)
[2023-10-22 14:10] LABS: TSH w/ Reflex to FT4 3.53 uIU/mL (0.47-4.68)
[2023-10-22 14:27] LABS: Vitamin B12 194 pg/mL (239-931)
== END ==
PROVIDERS: PCP Family Medicine; Referring Provider Family Medicine; Visit Provider Family Medicine
DX: G89.4 Chronic pain syndrome (principal); G62.9 Polyneuropathy, unspecified; Z98.1 Arthrodesis status; Z79.891 Long term (current) use of opiate analgesic
CPT/HCPCS: 36415; 80053; 82607; 83540; 83550; 84443; 85025

== ENCOUNTER → 2023-10-30 16:52 | Outpatient (CLI) | payer MEDICARE, OTHER, SELFPAY ==
[2022-11-15 12:10] VITALS: BMI 30.8
--- NOTE | 2023-10-30 | DI.MRI.S_ITS ---
PROCEDURE: MR KNEE LT WO CON INDICATIONS: pain - left knee TECHNIQUE: Noncontrast sagittal PD fast spin echo and T2 fast spin echo with fat saturation, sagittal 3-D FLASH with fat saturation; coronal T1 spin echo and PD fast spin echo with fat saturation, and axial PD fast spin echo with fat saturation through the knee. COMPARISON: [facility], MR, KNEE WITHOUT CONTRAST, 06/23/2013, 17:25. FINDINGS: Image quality: Excellent. Menisci: There is peripheral displacement of medial meniscus bowing medial collateral ligament. Complex tear involving body and posterior horn of medial meniscus is seen extending to both superior and inferior articulating surfaces. Subtle oblique tear is seen involving posterior horn of lateral meniscus extending to inferior articulating surface. The meniscal root ligaments appear intact. Cruciate ligaments: The anterior cruciate ligament is mildly thickened. The posterior cruciate ligament is intact. Medial structures: The medial collateral ligament appears thickened with intrasubstance T2 hyperintense signal and extensive surrounding edema. Visualized portions of the pes anserinus tendons appear normal. No abnormal bursal fluid. Lateral structures: The lateral collateral ligament, long and short heads of the biceps femoris tendon appear thickened. The popliteus tendon is also thickened . Iliotibial band appears normal. Anterior structures: The quadriceps and patellar tendons appear intact. Patellar alignment is normal. No femoral trochlear dysplasia or ventral trochlear prominence. No edema in the infrapatellar fat pad. Bones and cartilage: Moderate tricompartmental osteoarthritis and chondromalacia is seen most notably in medial femoral tibial compartment. No fracture or dislocation. Joint space: There is small knee joint fluid. There is a 2.9 x 2.7 x 6.8 cm complex appearing Dunham's cyst. Normal appearing synovial plicae are incidentally noted. IMPRESSION: 1. Complex tear involving body and posterior horn of medial meniscus extending to both superior and inferior articulating surfaces. Complex oblique involving posterior horn of lateral meniscus extending to inferior articulating surface. 2. Low-grade ACL sprain. 3. Low to moderate grade MCL sprain/partial-thickness tear. Low-grade LCL sprain. Distal biceps femorals tendinosis. Popliteus tendinosis. 4. Moderate tricompartmental osteoarthritis and chondromalacia most notably in medial femoral tibial compartment. No fracture or dislocation. Small joint effusion and a complex appearing Dunham's cyst, no gross loose bodies. Dictated by: Mohit Olivares M.D. on 10/31/2023 at 9:40 Approved by: Mohit Olivares M.D. on 10/31/2023 at 10:03
--- NOTE | 2023-10-30 16:57 | DI.MRI.S_ITS ---
PROCEDURE: MR WRIST RT WO CON INDICATIONS: eval R wrist TECHNIQUE: Noncontrast coronal proton density fast spin echo and T2 fast spin echo with fat saturation; coronal 3-D gradient echo, axial T1 spin echo and T2 fast spin echo with fat saturation, sagittal T1 spin echo through the wrist. COMPARISON: [facility], MR, MR WRIST RT WO CON, 04/04/2022, 17:57. FINDINGS: Image quality: Excellent. Bones and cartilage: The carpal bones are normally aligned. Moderate to severe osteoarthritic changes throughout wrist joints are seen with joint space narrowing, subchondral sclerosis and marginal osteophyte formation. Extensive marrow edema throughout carpal bones and adjacent metacarpal bases are seen with subcortical cystic changes most likely represent changes secondary to osteoarthritis versus contusion. No acute fracture or dislocation. No evidence of avascular necrosis. Carpal ligaments: There is widening of scapholunate interval and rupture of the scapholunate ligament. The lunotriquetral ligament is intact. In the absence of intra-articular contrast, the extrinsic carpal ligaments are not well identified. On sagittal images, the pisohamate ligament appears intact. Triangular fibrocartilage complex: There is suggestion of complex triangular fibrocartilage tear in its mid portion and near its ulnar insertion. The extensor carpi ulnaris tendon is thickened with subtle intrasubstance T2 hyperintense signal at the level of ulnar styloid with adjacent a soft tissue edema. Tendons and soft tissues: The carpal tunnel structures appear normal, including the median nerve. The ulnar nerve appears normal within Guyon's canal. All six extensor tendon compartments demonstrate normal morphology, without pathologic tendon sheath fluid. Fluid is seen distending tendon sheath of flexor hallucis longus tendon at the level of 1st metacarpal shaft. 1.1 x 1.2 x 1 cm cystic structure over volar aspect of radial styloid is seen. Lobulated cystic structure over volar aspect of triquetrum is also noted measures up to 1.6 x 0.6 x 0.7 cm in size. IMPRESSION: 1. 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 No acute fracture or dislocation. Possible contusion versus changes related to osteoarthritis throughout carpal bones and metacarpal bases. No evidence of avascular necrosis. 2. Ruptured scapholunate ligament with widening of scapholunate interval. The lunotriquetral ligament is intact. 3. Suggestion of complex tear involving central and medial portion of triangular fibrocartilage complex near its ulnar insertion. 4. Tendinosis and low-grade intrasubstance partial-thickness tear involving extensor carpi ulnaris tendon at the level of ulnar styloid and triquetrum. 5. Moderate grade tenosynovitis involving flexor hallucis longus tendon at the level of 1st metacarpal shaft. 6. Likely ganglion cysts over volar aspect of radial and ulnar styloids as above. Dictated by: Mohit Olivares M.D. on 10/31/2023 at 11:34 Approved by: Mohit Olivares M.D. on 10/31/2023 at 11:41
--- NOTE | 2023-10-30 16:57 | DI.RAD.S_ITS ---
PROCEDURE: XR WRIST LT MIN 3V INDICATIONS: Acute left wrist pain, possibly from a fall TECHNIQUE: 4 views of the wrist were acquired. COMPARISON: None FINDINGS: Bones: No fractures or dislocations. No suspicious bony lesions. Soft tissues: No suspicious soft tissue calcifications. IMPRESSION: No acute osseous findings If clinical suspicion persists, MRI of the wrist may provide additional diagnostic benefit Dictated by: Malachi Fernandez M.D. on 10/31/2023 at 11:06 Approved by: Malachi Fernandez M.D. on 10/31/2023 at 11:18
== END ==
LOC: MRI 16:55
PROVIDERS: PCP Family Medicine; Referring Provider Family Medicine; Visit Provider Family Medicine
DX: S83.231A Complex tear of medial meniscus, current injury, right knee, initial encounter (principal); S83.271A Complex tear of lateral meniscus, current injury, right knee, initial encounter; S83.511A Sprain of anterior cruciate ligament of right knee, initial encounter; S83.411A Sprain of medial collateral ligament of right knee, initial encounter; S83.421A Sprain of lateral collateral ligament of right knee, initial encounter; M17.11 Unilateral primary osteoarthritis, right knee; M94.261 Chondromalacia, right knee; M25.461 Effusion, right knee; M71.21 Synovial cyst of popliteal space [Baker], right knee; M25.532 Pain in left wrist; M25.531 Pain in right wrist; M19.031 Primary osteoarthritis, right wrist; S63.391A Traumatic rupture of other ligament of right wrist, initial encounter; S66.811A Strain of other specified muscles, fascia and tendons at wrist and hand level, right hand, initial encounter; M65.831 Other synovitis and tenosynovitis, right forearm
CPT/HCPCS: 73110; 73221; 73721

== ENCOUNTER 2023-10-31 13:40 | Emergency (ER) | payer MEDICARE, OTHER, SELFPAY ==
[2022-11-15 12:10] VITALS: BMI 30.8
[2023-10-31 13:48] VITALS: BP 191/110; PULSE 77; RESP 18; TEMP 36.6; O2SAT 99; BMI 29.0
--- NOTE | 2023-10-31 13:53 | DI.RAD.S_ITS ---
PROCEDURE: XR CHEST 1V INDICATIONS: chest pain TECHNIQUE: One view of the chest was acquired. COMPARISON: [facility], CR, XR CHEST 1V, 09/16/2023, 12:55. FINDINGS: Surgical changes and devices: Partially visualized bilateral shoulder arthroplasties and thoracolumbar hardware at the ago and getting airway. Lungs and pleura: Lungs are clear. No pleural effusions or pneumothorax. Mediastinum: Heart and mediastinum are stable. Bones and chest wall: No suspicious bony lesions. Overlying soft tissues appear unremarkable. IMPRESSION: No acute cardiopulmonary process. Dictated by: Dustin Kelly M.D. on 10/31/2023 at 14:44 Approved by: Dustin Kelly M.D. on 10/31/2023 at 14:45
--- NOTE | 2023-10-31 14:08 | ED_ITS ---
HPI - Chest Pain General Chief Complaint: Chest Pain Stated Complaint: GLF, knee and chest pain, no blood thinners Time Seen by Provider: 10/31/23 13:59 Source: patient Mode of arrival: Wheelchair History of Present Illness HPI narrative: 77-year-old male presents for left knee pain and left-sided chest pain since earlier this morning. Patient states that he was walking when his left knee gave out and he fell to the ground. Denies hitting head, denies loss of consciousness. After he fell he noticed that he had left-sided, sharp, nonradiating chest pain. Denies hitting his chest or injuring his chest wall during the fall. Denies history of heart disease. Former smoker Related Data Home Medications Medication Instructions Recorded Confirmed Disabled Parking Permit 1 % SEEINSTR 11/08/20 10/22/23 amlodipine 5 mg tablet 5 mg PO BEDTIME 11/08/22 10/22/23 hydrochlorothiazide 25 mg tablet 12.5 mg PO QAM 11/15/22 10/22/23 losartan 100 mg tablet 100 mg PO DAILY 11/15/22 10/22/23 Previous Rx's Medication Instructions Recorded albuterol sulfate 2.5 mg/3 mL 2.5 mg (3 mL) continuous 10/24/22 (0.083 %) solution for nebulization nebulization Q6HP PRN shortness of breath or wheezing #360 mL ibuprofen 400 mg tablet 400 mg PO Q4HR PRN Pain, Mild 11/16/22 (1-3) #60 tabs albuterol sulfate 90 mcg/actuation 1 inh inhalation Q4-6H PRN 12/27/22 aerosol inhaler shortness of breath #18 grams omeprazole 40 mg capsule,delayed 40 mg PO DAILY #90 caps 01/01/23 release lidocaine 5 % topical patch 2 patch topical DAILY #30 ea 01/08/23 ketoconazole 2 % topical cream 1 applic topical BID #30 grams 02/08/23 potassium chloride 20 mEq 20 meq PO BID #10 tabs 02/26/23 tablet,extended release ipratropium 0.5 mg-albuterol 3 mg 3 ml inhalation Q6H PRN shortness 03/19/23 (2.5 mg base)/3 mL nebulization of breath or wheezing #90 mL soln metoprolol succinate 100 mg 100 mg PO DAILY #90 tabs 07/11/23 tablet,extended release 24 hr sulfasalazine 500 mg tablet 1,000 mg (2 x 500 mg) PO BID #180 07/23/23 tabs meloxicam 15 mg tablet 15 mg PO DAILY #30 tabs 08/13/23 lidocaine 5 % topical patch 1 patch topical DAILY #30 ea 09/02/23 valacyclovir 1 gram tablet 1,000 mg PO TID #30 tabs 09/02/23 prednisone 20 mg tablet 40 mg (2 x 20 mg) PO DAILY #10 tabs 09/12/23 oxycodone 10 mg tablet 10 mg PO BID PRN pain #10 tabs 09/20/23 oxycodone 10 mg tablet 10 mg PO Q8H PRN pain #10 tabs 09/20/23 nitroglycerin 0.4 mg sublingual 0.4 mg sublingual Q5M PRN chest 10/03/23 tablet pain #20 tabs oxycodone 10 mg tablet 10 mg PO Q8H PRN pain #84 tabs 10/03/23 fluoxetine 10 mg capsule See Rx Instructions .Route 10/08/23 .COMPLEX #90 caps fluoxetine 20 mg capsule 20 mg PO DAILY #90 caps 10/08/23 ferrous gluconate 324 mg (37.5 mg 324 mg PO DAILY #90 tabs 10/22/23 iron) tablet hydromorphone 2 mg tablet 2 mg PO BEDTIME PRN pain #30 tabs 11/01/23 methocarbamol 750 mg tablet 750 mg PO QID PRN pain, severe #56 11/01/23 tabs Allergies Allergy/AdvReac Type Severity Reaction Status Date / Time cyclobenzaprine Allergy Severe Dizziness, Verified 10/31/23 13:53 [From Flexeril] I bounce off ag acetaminophen [ACETAMINOPHEN] AdvReac Unknown Can't take Verified 10/31/23 13:53 r/t Hep C; upset stomach Review of Systems Review of Systems Narrative: Negative except as noted above Patient History Medical History Left knee pain Chronic diarrhea Eustachian tube dysfunction Seasonal allergic rhinitis Dyspepsia Anemia Tinea Abdominal wall pain in both lower quadrants Constipation Aftercare following left shoulder joint replacement surgery Preoperative clearance Left lateral epicondylitis Adhesive capsulitis Right wrist sprain Oral lesion Colles' fracture Right wrist pain Left shoulder strain Anxiety Fibromyalgia Sinus drainage Chronic ankle pain, bilateral Rheumatoid arthritis Acute exacerbation of chronic bronchitis Foraminal stenosis of lumbar region Peripheral neuropathy Pneumonia (~2018) Impotence (Unknown) Restless leg syndrome (Unknown) Arthritis (Unknown) Chronic pain syndrome (Unknown) Kidney stones (Unknown) Prostate cancer (Unknown) Skin cancer (Unknown) Hepatitis C (Unknown) Hypertension (Unknown) Migraines (Unknown) PTSD (post-traumatic stress disorder) (Unknown) Depression (Unknown) Surgical History S/P lumbar fusion History of lumbar fusion (05/10/22) History of ankle surgery 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 Social History marital status: household members: spouse lives independently: Yes occupational status: previously employed Smoking Status: Former smoker Tobacco: How many years used: 20 quit status: has quit before alcohol intake: former substance use type: former substance user and marijuana Smoking Status: Former smoker tobacco type: cigarettes alcohol intake frequency: 0-2 drinks per day Substance Use Type: does not use Exam Initial Vital Signs Initial Vital Signs: Vital Signs Temperature 98 F 10/31/23 13:48 Pulse Rate 77 10/31/23 13:48 Respiratory Rate 18 10/31/23 13:48 Blood Pressure 191/110 H 10/31/23 13:48 Pulse Oximetry 99 10/31/23 13:48 Oxygen Delivery Method Room Air 10/31/23 13:48 Const: Awake, alert, uncomfortable, frail Cardiac: regular rate, regular rhythm, reproducible tenderness to palpation over L pectoralis muscle RESP: unlabored, clear bilaterally, no wheezing GI: Atraumatic, soft, nontender MSK: no deformity, diffuse tenderness over L knee Skin: Warm, Dry, intact, no rashes Neuro: AO x3, CN II-XII grossly intact, moves all extremities Course Orders Ordered: Discontinued Medications Aspirin (Aspirin 81 Mg Chew Tab) 324 mg PO NOW ONE Stop: 10/31/23 13:54 Last Admin: 10/31/23 14:15 Dose: 324 mg Documented By: BS Oxycodone HCl (Oxycodone Ir 5 Mg Tablet) 10 mg PO NOW ONE Stop: 10/31/23 14:10 Last Admin: 10/31/23 14:16 Dose: 10 mg Documented By: YARI Vital Signs Vital signs: Vital Signs - 8 hr 10/31/23 13:48 10/31/23 14:34 Temperature 98 F Pulse Rate 77 88 Respiratory Rate 18 18 Blood Pressure 191/110 H Pulse Oximetry 99 98 Oxygen Delivery Method Room Air Room Air MDM - Chest Pain Differential Diagnosis Differential diagnosis: Likely fracture of rib, atypical chest pain and costochondritis Lab Data 10/31/23 14:46 10/31/23 14:46 Labs: Lab Results 10/31/23 Range/Units 14:46 WBC 7.5 (4.5-11.0) X10^3/uL RBC 4.25 L (4.5-5.9) X10^6/uL Hgb 10.7 L (13.5-17.5) g/dL Hct 32.2 L (41-53) % MCV 75.9 L (80-100) fL MCH 25.2 L (26-34) PG MCHC 33.2 (30-36) % RDW 16.3 H (11.6-14.8) % Plt Count 320 (150-400) X10^3/uL Neut % (Auto) 65.9 (50-75) % Lymph % (Auto) 16.3 L (25-40) % [place] % (Auto) 14.2 H (3-14) % Eos % (Auto) 3.1 (2-4) % Baso % (Auto) 0.5 (0-2) % Neut # (Auto) 5000 (0344-6177) /uL Lymph # (Auto) 1200 (5181-9207) /uL [place] # (Auto) 1100 H (0-900) /uL Eos # (Auto) 200 (0-450) /uL Baso # (Auto) 0 (0-100) /uL PT 13.1 H (9.4-12.5) SECONDS INR 1.1 (0.9-1.3) APTT 28 (25.1-36.5) SECONDS Sodium 136 L (137-145) mmol/L Potassium 3.8 (3.4-5.1) mmol/L Chloride 103 (98-107) mmol/L Carbon Dioxide 25 (22-32) mmol/L BUN 9 (9-20) mg/dL Creatinine 0.57 L (0.66-1.25) mg/dL Estimated GFR > 60 (>60) mL/min BUN/Creatinine Ratio 15.8 (6-22) Glucose 90 (80-110) mg/dL Calcium 8.9 (8.4-10.2) mg/dL Magnesium 2.0 (1.6-2.3) mg/dL Total Bilirubin 0.4 (0.2-1.3) mg/dL AST 28 (17-59) IU/L ALT 18 (<50) IU/L Alkaline Phosphatase 80 (38-126) U/L Total Creatine Kinase 29 L (55-170) U/L Troponin I 0.017 (0.01-0.034) ng/mL Total Protein 7.4 (6.3-8.2) g/dL Albumin 3.7 (3.5-5.0) g/dL Globulin 3.7 (1.7-4.1) g/dL Albumin/Globulin Ratio 1.0 (1.0-2.8) Lipase 81 (23-300) U/L ECG Data Interpretation: Normal sinus rhythm. No ST T wave changes, no STEMI MDM Narrative Medical decision making narrative: Musculoskeletal knee pain after a ground level fall, subsequently noticed left chest pain. Chest pain is reproducible to palpation and does not seem to be anginal in the patient's description of it. EKG sinus rhythm without ischemia. Patient had MRI performed earlier this week that shows meniscal tear on the left-hand side and osteoarthritis. No new fracture today on x-ray imaging. Cardiac workup is unremarkable, troponin is not detected, chest x-ray is negative for acute process. Patient counseled of all lab and imaging findings, he was given a dose of his usual pain medication here in the emergency department. Patient was counseled to continue follow up with Orthopedics and his primary care doctor for his ongoing knee issues and to see Cardiology if he continues to have chest pain. Discharge Plan Departure Patient Disposition: Home Clinical Impression: Chest pain, Left knee pain Instructions: DI for Meniscal Tear, DI for Chest Pain Activity Restrictions/Additional Instructions: Your EKG and heart lab work today was normal. Your x-ray of the knee showed no new injuries. I was able to review your MRI, it looks as though you have a medial meniscus tear, this can be further discussed with the primary care physician at your follow up appointment. Take her usual pain medications and try to avoid falling again if possible. Follow up with Cardiology for your chest pain, a referral has been provided. Prescriptions: No Action albuterol sulfate 2.5 mg /3 mL (0.083 %) solution for nebulization 2.5 mg Continuous Nebulization Q6HP PRN (Reason: shortness of breath or wheezing) Qty: 360 2RF albuterol sulfate 90 mcg/actuation HFA aerosol inhaler 1 inh INHALATION Q4-6H PRN (Reason: shortness of breath) Qty: 18 4RF omeprazole 40 mg capsule,delayed release(DR/EC) 40 mg PO DAILY Qty: 90 3RF Rx Instructions: take 1 capsule by mouth once daily lidocaine 5 % adhesive patch,medicated 2 patch topical DAILY Qty: 30 1RF Rx Instructions: leave on most painful area for up to 12 hrs metoprolol succinate 100 mg tablet extended release 24 hr 100 mg PO DAILY Qty: 90 1RF oxycodone 10 mg tablet 10 mg PO Q8H PRN (Reason: pain) Qty: 84 0RF Rx Instructions: to augment chronic TID dosing due to shingles pain nitroglycerin 0.4 mg tablet, sublingual 0.4 mg sublingual Q5M PRN (Reason: chest pain) Qty: 20 1RF Rx Instructions: do not exceed 3 doses per episode fluoxetine 10 mg capsule See Rx Instructions .ROUTE .COMPLEX Qty: 90 3RF Dose Instruction: take 1 capsule by mouth once daily WITH 20MG CAP DAILY TOTAL 30 MG DAILY Rx Instructions: take 1 capsule by mouth once daily WITH 20MG CAP DAILY TOTAL 30 MG DAILY fluoxetine 20 mg capsule 20 mg PO DAILY Qty: 90 3RF Rx Instructions: Take with 10 mg to complete 30 mg dose methocarbamol 750 mg tablet 750 mg PO QID PRN (Reason: pain, severe) Qty: 56 0RF hydromorphone 2 mg tablet 2 mg PO BEDTIME PRN (Reason: pain) Qty: 30 0RF Rx Instructions: Must last to December 03, 2023 prednisone 20 mg tablet 40 mg PO DAILY Qty: 10 0RF ketoconazole 2 % cream 1 applic topical BID Qty: 30 1RF sulfasalazine 500 mg tablet 1,000 mg PO BID Qty: 180 1RF meloxicam 15 mg tablet 15 mg PO DAILY Qty: 30 0RF ferrous gluconate 324 mg (37.5 mg iron) tablet 324 mg PO DAILY Qty: 90 2RF Rx Instructions: start taking daily, with food or juice potassium chloride 20 mEq tablet extended release 20 meq PO BID Qty: 10 0RF lidocaine 5 % adhesive patch,medicated 1 patch topical DAILY Qty: 30 0RF Rx Instructions: against spine T9 level for shingles pain valacyclovir 1 gram tablet 1,000 mg PO TID Qty: 30 0RF oxycodone 10 mg tablet 10 mg PO Q8H PRN (Reason: pain) Qty: 10 0RF oxycodone 10 mg tablet 10 mg PO BID PRN (Reason: pain) Qty: 10 0RF Disabled Parking Permit 1 1 % SEEINSTR Rx Instructions: Valid for 5 years amlodipine 5 mg tablet 5 mg PO BEDTIME Patient Comments: pt received dose in hospital 11/10/19 early AM admit to AC hydrochlorothiazide 25 mg tablet 12.5 mg PO QAM losartan 100 mg tablet 100 mg PO DAILY ibuprofen 400 mg Tablet 400 mg PO Q4HR PRN (Reason: Pain, Mild (1-3)) Qty: 60 0RF ipratropium-albuterol 0.5 mg-3 mg(2.5 mg base)/3 mL solution for nebulization 3 ml inhalation Q6H PRN (Reason: shortness of breath or wheezing) Qty: 90 0RF Referrals: Russel Holden MD [Physician] - Edilberto Snell DO [Primary Care Provider] - Stand Alone Forms: Patient Portal/API
--- NOTE | 2023-10-31 14:09 | DI.RAD.S_ITS ---
PROCEDURE: XR KNEE LT 3V INDICATIONS: GLF, KNEE PAIN TECHNIQUE: 3 views of the knee were acquired. COMPARISON: [facility], , XR KNEE LT 3V, 09/30/2023, 15:47. FINDINGS: Bones: No fractures or dislocations. Mild medial compartment and patellofemoral compartment joint space narrowing. No suspicious bony lesions. Soft tissues: Small joint effusion. No suspicious soft tissue calcifications. IMPRESSION: 1. No acute bony abnormality. Small joint effusion. 2. Mild medial and patellofemoral compartment osteoarthritis. Dictated by: Dustin Kelly M.D. on 10/31/2023 at 14:46 Approved by: Dustin Kelly M.D. on 10/31/2023 at 14:48
[2023-10-31] MEDS: ASPIRIN 81 MG CHEW TAB 324 MG PO (14:15)
[2023-10-31] MEDS: OXYCODONE IR 5 MG TABLET 10 MG PO (14:16)
[2023-10-31 14:34] VITALS: PULSE 88; RESP 18; O2SAT 98
[2023-10-31 14:54] LABS: Add Manual Diff / Slide Review NO; Basophils Absolute Auto 0 /uL (0-100); Basophils Percent Auto 0.5 % (0-2); Eosinophils Absolute Auto 200 /uL (0-450); Eosinophils Percent Auto 3.1 % (2-4); Hematocrit 32.2 % (41-53); Hemoglobin 10.7 g/dL (13.5-17.5); Lymphocytes Absolute Auto 1200 /uL (1100-4500); Lymphocytes Percent Auto 16.3 % (25-40); Mean Corpuscular HGB Conc 33.2 % (30-36); Mean Corpuscular Hemoglobin 25.2 PG (26-34); Mean Corpuscular Volume 75.9 fL (80-100); Monocytes Absolute Auto 1100 /uL (0-900); Monocytes Percent Auto 14.2 % (3-14); Neutrophils Absolute Auto 5000 /uL (1500-7000); Neutrophils Percent Auto 65.9 % (50-75); Platelet Count 320 X10^3/uL (150-400); Red Blood Cell Count 4.25 X10^6/uL (4.5-5.9); Red Cell Distribution Width 16.3 % (11.6-14.8); White Blood Cell Count 7.5 X10^3/uL (4.5-11.0)
[2023-10-31 15:00] VITALS: PULSE 75; O2SAT 98
[2023-10-31 15:05] LABS: INR 1.1 (0.9-1.3); Prothrombin Time 13.1 SECONDS (9.4-12.5)
[2023-10-31 15:07] LABS: PTT Partial Thromboplastin Tim 28 SECONDS (25.1-36.5)
[2023-10-31 15:09] LABS: Alanine Aminotransferase 18 IU/L (<50); Albumin 3.7 g/dL (3.5-5.0); Alkaline Phosphatase 80 U/L (38-126); Aspartate Aminotransferase 28 IU/L (17-59); BUN Creatinine Ratio 15.8 (6-22); Bilirubin Total 0.4 mg/dL (0.2-1.3); Blood Urea Nitrogen 9 mg/dL (9-20); Calcium 8.9 mg/dL (8.4-10.2); Carbon Dioxide 25 mmol/L (22-32); Chloride 103 mmol/L (98-107); Creatine Kinase 29 U/L (55-170); Estimated Glomerular Filt Rate > 60 mL/min (>60); Globulin 3.7 g/dL (1.7-4.1); Glucose 90 mg/dL (80-110); HEMOLYSIS < 15 (0-50); Lipase 81 U/L (23-300); Potassium 3.8 mmol/L (3.4-5.1); Sodium 136 mmol/L (137-145); Total Protein 7.4 g/dL (6.3-8.2)
[2023-10-31 15:21] LABS: Troponin I 0.017 ng/mL (0.01-0.034)
[2023-10-31 15:23] VITALS: BP 191/95; PULSE 81; O2SAT 97
[2023-10-31 15:30] VITALS: BP 163/85; PULSE 67; O2SAT 99
== END 2023-10-31 15:48 | disposition home or self-care (01) ==
PROVIDERS: Emergency Provider Emergency Medicine; PCP Family Medicine
DX: R07.9 Chest pain, unspecified (principal); M25.562 Pain in left knee; W18.30XA Fall on same level, unspecified, initial encounter; Z79.899 Other long term (current) drug therapy
CPT/HCPCS: 36415; 71045; 73562; 80053; 82550; 83690; 83735; 84484; 85025; 85610; 85730; 93005; 93010; 99284

== ENCOUNTER 2023-11-11 14:31 | Emergency (ER) | payer MEDICARE, OTHER, SELFPAY ==
[2022-11-15 12:10] VITALS: BMI 30.8
--- NOTE | 2023-11-11 14:38 | DI.RAD.S_ITS ---
PROCEDURE: XR KNEE RT 3V INDICATIONS: right knee pain/fall TECHNIQUE: 3 views of the knee were acquired. COMPARISON: [facility], CR, XR KNEE LT 3V, 10/31/2023, 14:14. FINDINGS: Bones: No fractures or dislocations. No suspicious bony lesions. Medial compartment arthroplasty has been performed. Soft tissues: No joint effusion. No suspicious soft tissue calcifications. IMPRESSION: Postsurgical sequelae. No acute fracture. No osseous lesion. If symptoms and/or clinical suspicion for pathology persist, further assessment with repeat, or advanced imaging (e.g., CT, MRI, or bone scan) may be helpful for further assessment. Dictated by: Steve Clement M.D. on 11/11/2023 at 15:19 Approved by: Steve Clement M.D. on 11/11/2023 at 15:19
[2023-11-11 15:24] VITALS: BP 139/67; PULSE 83; RESP 18; TEMP 36.3; O2SAT 97; BMI 29.4
--- NOTE | 2023-11-11 16:26 | ED.LOWEXIN ---
HPI - Extremity Injury (Lower) <Zenobia Damon PA-C - Last Filed: 11/11/23 20:54> General Chief Complaint: Extremity Injury, Lower Stated Complaint: Rt knee injury from FALL.. NO thinners Time Seen by Provider: 11/11/23 14:38 Source: patient Mode of arrival: Wheelchair History of Present Illness HPI Narrative: This is a 78-year-old male on chronic oxycodone daily with bilateral knee pain and previous instrumentation who presents in crutches with concern for right knee injury. Patient states that he twisted his knee on Saturday 2 days ago, his left knee is ?bad? and he reports is supposed to have surgery on it soon he recently had an MRI for this. He was trying to support all of his weight on the right to avoid injuring his left knee and ended up twisting his right knee and he said he felt a popping sensation to the side. He has been having pain on the sides of his right knee and in the front of his knee. He was not using crutches on it until yesterday. He states he also ran out of his oxycodone and can not get more until he sees his doctor on the . He advises that he does have a knee brace at home but has not used it yet. He denies numbness or tingling of the affected extremity or any other complaints or concerns. Related Data Home Medications Medication Instructions Recorded Confirmed Disabled Parking Permit 1 % SEEINSTR 11/08/20 10/22/23 amlodipine 5 mg tablet 5 mg PO BEDTIME 11/08/22 10/22/23 hydrochlorothiazide 25 mg tablet 12.5 mg PO QAM 11/15/22 10/22/23 losartan 100 mg tablet 100 mg PO DAILY 11/15/22 10/22/23 Previous Rx's Medication Instructions Recorded albuterol sulfate 2.5 mg/3 mL 2.5 mg (3 mL) continuous 10/24/22 (0.083 %) solution for nebulization nebulization Q6HP PRN shortness of breath or wheezing #360 mL ibuprofen 400 mg tablet 400 mg PO Q4HR PRN Pain, Mild 11/16/22 (1-3) #60 tabs albuterol sulfate 90 mcg/actuation 1 inh inhalation Q4-6H PRN 12/27/22 aerosol inhaler shortness of breath #18 grams omeprazole 40 mg capsule,delayed 40 mg PO DAILY #90 caps 01/01/23 release lidocaine 5 % topical patch 2 patch topical DAILY #30 ea 01/08/23 ketoconazole 2 % topical cream 1 applic topical BID #30 grams 02/08/23 potassium chloride 20 mEq 20 meq PO BID #10 tabs 02/26/23 tablet,extended release ipratropium 0.5 mg-albuterol 3 mg 3 ml inhalation Q6H PRN shortness 03/19/23 (2.5 mg base)/3 mL nebulization of breath or wheezing #90 mL soln metoprolol succinate 100 mg 100 mg PO DAILY #90 tabs 07/11/23 tablet,extended release 24 hr sulfasalazine 500 mg tablet 1,000 mg (2 x 500 mg) PO BID #180 07/23/23 tabs meloxicam 15 mg tablet 15 mg PO DAILY #30 tabs 08/13/23 lidocaine 5 % topical patch 1 patch topical DAILY #30 ea 09/02/23 valacyclovir 1 gram tablet 1,000 mg PO TID #30 tabs 09/02/23 prednisone 20 mg tablet 40 mg (2 x 20 mg) PO DAILY #10 tabs 09/12/23 nitroglycerin 0.4 mg sublingual 0.4 mg sublingual Q5M PRN chest 10/03/23 tablet pain #20 tabs fluoxetine 10 mg capsule See Rx Instructions .Route 10/08/23 .COMPLEX #90 caps fluoxetine 20 mg capsule 20 mg PO DAILY #90 caps 10/08/23 ferrous gluconate 324 mg (37.5 mg 324 mg PO DAILY #90 tabs 10/22/23 iron) tablet hydromorphone 2 mg tablet 2 mg PO BEDTIME PRN pain #30 tabs 11/01/23 methocarbamol 750 mg tablet 750 mg PO QID PRN pain, severe #56 11/01/23 tabs oxycodone 10 mg tablet 10 mg PO Q8H PRN pain #84 tabs 11/06/23 Allergies Allergy/AdvReac Type Severity Reaction Status Date / Time cyclobenzaprine Allergy Severe Dizziness, Verified 10/31/23 13:53 [From Flexeril] I bounce off ag acetaminophen [ACETAMINOPHEN] AdvReac Unknown Can't take Verified 10/31/23 13:53 r/t Hep C; upset stomach Review of Systems <Zenobia Damon PA-C - Last Filed: 11/11/23 20:54> Review of Systems Narrative: See HPI Patient History <Zenobia Damon PA-C - Last Filed: 11/11/23 20:54> Medical History Left knee pain Chronic diarrhea Eustachian tube dysfunction Seasonal allergic rhinitis Dyspepsia Anemia Tinea Abdominal wall pain in both lower quadrants Constipation Aftercare following left shoulder joint replacement surgery Preoperative clearance Left lateral epicondylitis Adhesive capsulitis Right wrist sprain Oral lesion Colles' fracture Right wrist pain Left shoulder strain Anxiety Fibromyalgia Sinus drainage Chronic ankle pain, bilateral Rheumatoid arthritis Acute exacerbation of chronic bronchitis Foraminal stenosis of lumbar region Peripheral neuropathy Pneumonia (~2017) Impotence (Unknown) Restless leg syndrome (Unknown) Arthritis (Unknown) Chronic pain syndrome (Unknown) Kidney stones (Unknown) Prostate cancer (Unknown) Skin cancer (Unknown) Hepatitis C (Unknown) Hypertension (Unknown) Migraines (Unknown) PTSD (post-traumatic stress disorder) (Unknown) Depression (Unknown) Surgical History S/P lumbar fusion History of lumbar fusion (05/10/22) History of ankle surgery 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 Social History marital status: household members: spouse lives independently: Yes occupational status: previously employed Smoking Status: Former smoker Tobacco: How many years used: 20 quit status: has quit before alcohol intake: former substance use type: former substance user and marijuana Smoking Status: Former smoker tobacco type: cigarettes alcohol intake frequency: 0-2 drinks per day Substance Use Type: does not use Exam <Zenobia Damon PA-C - Last Filed: 11/11/23 20:54> Narrative Exam Narrative: GENERAL: 78 year old patient appears stated age. Well-developed patient, in mild distress. HEAD: Atraumatic. Normocephalic. EYES: Pupils equal round and reactive. Extraocular motions intact. No scleral icterus. No injection or drainage. ENT: Nose without bleeding, purulent drainage. Airway patent. NECK: Trachea midline. Non tender CARDIOVASCULAR: Regular rate and rhythm RESPIRATORY: No increased work of breathing or respiratory distress EXTREMITIES: In the affected right lower extremity there is a strong dorsalis pedis and posterior tibialis pulse, patient helps in pain and endorses discomfort with palpation over the tibial tuberosity and medial and lateral joint lines, the knee is stable with anterior posterior drawer exam. There is no appreciable swelling on my exam. Nor is there bruising or heat. Patient states that he has to keep his leg straight for comfort and it hurts too much to bend it however immediately after seeing this he relaxes his leg to a bent position with no apparent discomfort. No edema or joint tenderness. NEURO: AOx3. SKIN: No rash or erythema of visible areas Initial Vital Signs Initial Vital Signs: Vital Signs Temperature 97.4 F L 11/11/23 15:24 Pulse Rate 83 11/11/23 15:24 Respiratory Rate 18 11/11/23 15:24 Blood Pressure 139/67 11/11/23 15:24 Pulse Oximetry 97 11/11/23 15:24 Oxygen Delivery Method Room Air 11/11/23 15:24 <Carie Escalante DO - Last Filed: 11/12/23 09:55> Initial Vital Signs Initial Vital Signs: Vital Signs Temperature 97.4 F L 11/11/23 15:24 Pulse Rate 83 11/11/23 15:24 Respiratory Rate 18 11/11/23 15:24 Blood Pressure 139/67 11/11/23 15:24 Pulse Oximetry 97 11/11/23 15:24 Oxygen Delivery Method Room Air 11/11/23 15:24 Course <Zenobia Damon PA-C - Last Filed: 11/11/23 20:54> Orders Ordered: Discontinued Medications Oxycodone HCl (Oxycodone Ir 5 Mg Tablet) 10 mg PO NOW ONE Stop: 11/11/23 17:06 Last Admin: 11/11/23 17:19 Dose: 10 mg Documented By: RAIN Vital Signs Vital signs: Vital Signs - 8 hr 11/11/23 15:24 Temperature 97.4 F L Pulse Rate 83 Respiratory Rate 18 Blood Pressure 139/67 Pulse Oximetry 97 Oxygen Delivery Method Room Air <Carie Escalante DO - Last Filed: 11/12/23 09:55> Orders Ordered: Discontinued Medications Oxycodone HCl (Oxycodone Ir 5 Mg Tablet) 10 mg PO NOW ONE Stop: 11/11/23 17:06 Last Admin: 11/11/23 17:19 Dose: 10 mg Documented By: RAIN Vital Signs Vital signs: Vital Signs - 8 hr 11/11/23 15:24 Temperature 97.4 F L Pulse Rate 83 Respiratory Rate 18 Blood Pressure 139/67 Pulse Oximetry 97 Oxygen Delivery Method Room Air MDM - Extremity Injury (Lower) <Zenobia Damon PA-C - Last Filed: 11/11/23 20:54> Differential Diagnosis Differential diagnosis: Likely acute internal derangement of knee and other (Mild sprain/strain of knee) Imaging Data Extremity x-ray #1: My Impression: Agree with Radiology interpretation Radiologist's Impression: [address] [address] XRay Report Signed Patient: Barrett Tam MR#: [id number] : 1945 Acct:[id number] Age/Sex: 78 / M Date of Service: 11/11/23 Loc: ED Accession Number: [id number] Procedure: XR knee RT 3V Ordering Provider: Zenobia Damon P.A-C PROCEDURE: XR KNEE RT 3V INDICATIONS: right knee pain/fall TECHNIQUE: 3 views of the knee were acquired. COMPARISON: [facility], , XR KNEE LT 3V, 10/31/2023, 14:14. FINDINGS: Bones: No fractures or dislocations. No suspicious bony lesions. Medial compartment arthroplasty has been performed. Soft tissues: No joint effusion. No suspicious soft tissue calcifications. IMPRESSION: Postsurgical sequelae. No acute fracture. No osseous lesion. If symptoms and/or clinical suspicion for pathology persist, further assessment with repeat, or advanced imaging (e.g., CT, MRI, or bone scan) may be helpful for further assessment. Dictated by: Steve Clement M.D. on 11/11/2023 at 15:19 Approved by: Steve Clement M.D. on 11/11/2023 at 15:19 Treatment and disposition Shared decision making:: Shared decision-making was used to determine the patient's plan for care and evaluation in the emergency department MDM Narrative Medical decision making narrative: This is a 78-year-old male with frequent emergency department visits and history of chronic knee pain with previous right knee surgery who presents with concern for 2 days of right knee pain after he twisted his knee accidentally on Saturday. Patient presents today in crutches requesting pain medication as he is out of his oxycodone. X-ray is obtained and does not show joint effusion or acute injury. His exam is nonspecific certainly possible he has sustained a sprain/strain that is mild or internal injury to the knee. He is advised to be nonweightbearing continue to use crutches and use a knee brace he declines a brace provided by the emergency department today stating that he has 1 at home. Is reasonable for him to use this and he is advised to do so. He does state he is seeing his doctor to evaluate MRI of the left knee on the in a few days' time and he is advised to discuss checking in on his right knee at that time as well. He is encouraged to see orthopedics if he does not have improvement of his right knee pain and symptoms in the next 10-14 days. 10 mg oxycodone is provided today for pain relief in the emergency department however no prescription pain medication is provided as he already has a provider for this Rest ice compression elevation are recommended. Return precautions provided, follow-up plan discussed, all questions answered. Discharge Plan Departure Patient Disposition: Home Clinical Impression: Acute pain of right knee Activity Restrictions/Additional Instructions: *You have been diagnosed with right knee pain *What to do: *Please continue to take your regular medications as directed. [ ] New medication prescriptions sent to your pharmacy: [ ] [ ] New medication written as a paper prescription [ X] No new medications given *Please follow up with your primary care provider in 2-3 days, call for an appointment. Let them know you were seen in the Emergency Department and that we ask that you be seen in follow up. We will electronically transmit a record of today's note if your PCP is in our system. You twisted her knee on Saturday and state that you heard a pop, the x-ray imaging today looks okay, I do recommend you continue to use the crutches and be nonweightbearing and use the brace that you have at home for your right leg to stabilize it. You should also continue with rest ice compression and elevation as much as possible to allow it to heal. I recommend [id number] pain medications for pain you can also try diclofenac gel and talk to your doctor about your next prescription for oxycodone. Please follow-up as planned regarding MRI of your left knee and if your right knee pain is not improving despite appropriate treatment and rest in the next 10-14 days you should talk to her primary care provider about possibly seeing a specialist or having more advanced imaging. *If you do not have a primary care provider please contact the [facility] Resource line at [phone]. They will ask some questions about your medical history and help get you set up with a doctor in the community. *Return to Emergency Department if you should have any new, worsening or concerning symptoms, such as [fever greater than 101 F, shaking chills, worsening pain, persistent vomiting or other bothersome symptoms] Prescriptions: No Action albuterol sulfate 2.5 mg /3 mL (0.083 %) solution for nebulization 2.5 mg Continuous Nebulization Q6HP PRN (Reason: shortness of breath or wheezing) Qty: 360 2RF albuterol sulfate 90 mcg/actuation HFA aerosol inhaler 1 inh INHALATION Q4-6H PRN (Reason: shortness of breath) Qty: 18 4RF omeprazole 40 mg capsule,delayed release(DR/EC) 40 mg PO DAILY Qty: 90 3RF Rx Instructions: take 1 capsule by mouth once daily lidocaine 5 % adhesive patch,medicated 2 patch topical DAILY Qty: 30 1RF Rx Instructions: leave on most painful area for up to 12 hrs metoprolol succinate 100 mg tablet extended release 24 hr 100 mg PO DAILY Qty: 90 1RF nitroglycerin 0.4 mg tablet, sublingual 0.4 mg sublingual Q5M PRN (Reason: chest pain) Qty: 20 1RF Rx Instructions: do not exceed 3 doses per episode fluoxetine 10 mg capsule See Rx Instructions .ROUTE .COMPLEX Qty: 90 3RF Dose Instruction: take 1 capsule by mouth once daily WITH 20MG CAP DAILY TOTAL 30 MG DAILY Rx Instructions: take 1 capsule by mouth once daily WITH 20MG CAP DAILY TOTAL 30 MG DAILY fluoxetine 20 mg capsule 20 mg PO DAILY Qty: 90 3RF Rx Instructions: Take with 10 mg to complete 30 mg dose methocarbamol 750 mg tablet 750 mg PO QID PRN (Reason: pain, severe) Qty: 56 0RF hydromorphone 2 mg tablet 2 mg PO BEDTIME PRN (Reason: pain) Qty: 30 0RF Rx Instructions: Must last to December 03, 2023 prednisone 20 mg tablet 40 mg PO DAILY Qty: 10 0RF oxycodone 10 mg tablet 10 mg PO Q8H PRN (Reason: pain) Qty: 84 0RF Rx Instructions: to augment chronic TID dosing due to shingles pain ketoconazole 2 % cream 1 applic topical BID Qty: 30 1RF sulfasalazine 500 mg tablet 1,000 mg PO BID Qty: 180 1RF meloxicam 15 mg tablet 15 mg PO DAILY Qty: 30 0RF ferrous gluconate 324 mg (37.5 mg iron) tablet 324 mg PO DAILY Qty: 90 2RF Rx Instructions: start taking daily, with food or juice potassium chloride 20 mEq tablet extended release 20 meq PO BID Qty: 10 0RF lidocaine 5 % adhesive patch,medicated 1 patch topical DAILY Qty: 30 0RF Rx Instructions: against spine T9 level for shingles pain valacyclovir 1 gram tablet 1,000 mg PO TID Qty: 30 0RF Disabled Parking Permit 1 1 % SEEINSTR Rx Instructions: Valid for 5 years amlodipine 5 mg tablet 5 mg PO BEDTIME Patient Comments: pt received dose in hospital 11/10/19 early AM admit to hydrochlorothiazide 25 mg tablet 12.5 mg PO QAM losartan 100 mg tablet 100 mg PO DAILY ibuprofen 400 mg Tablet 400 mg PO Q4HR PRN (Reason: Pain, Mild (1-3)) Qty: 60 0RF ipratropium-albuterol 0.5 mg-3 mg(2.5 mg base)/3 mL solution for nebulization 3 ml inhalation Q6H PRN (Reason: shortness of breath or wheezing) Qty: 90 0RF Referrals: Edilberto Snell DO [Primary Care Provider] - Stand Alone Forms: Patient Portal/API ED Sign-out <Carie Escalante DO - Last Filed: 11/12/23 09:55> Cosign ED Attending Cosignature Attestation: I was immediately available in the department for consultation.
[2023-11-11] MEDS: OXYCODONE IR 5 MG TABLET 10 MG PO (17:19)
== END 2023-11-11 17:36 | disposition home or self-care (01) ==
PROVIDERS: Emergency Provider Student in an Organized Health Care Education/Training Program; PCP Family Medicine
DX: M25.561 Pain in right knee (principal)
CPT/HCPCS: 73562; 99283

== ENCOUNTER 2023-11-15 15:15 | Emergency (ER) | payer MEDICARE, OTHER, SELFPAY ==
[2022-11-15 12:10] VITALS: BMI 30.8
[2023-11-15 15:26] VITALS: BP 176/84; PULSE 84; RESP 16; TEMP 37.1; O2SAT 98; BMI 29.9
--- NOTE | 2023-11-15 15:30 | ED.LOWEXIN ---
HPI - Extremity Injury (Lower) <Álvaro Knowles PA-C - Last Filed: 11/16/23 11:18> General Chief Complaint: Headache Stated Complaint: migrane/fell/knee pain Time Seen by Provider: 11/15/23 15:17 History of Present Illness HPI Narrative: This is a 78-year-old male presents emergency department due to bilateral knee pain. Patient reports standing up and falling to his knees with significant pain to his bilateral knees. Denies any numbness. He was also complaining of migraine onset earlier this morning she states it is very severe. She denies any unilateral weakness, slurred speech, or any other concerning signs or symptoms. During the interview patient began complaining of chest pain 02/20 which has had before. Denies any cardiac history. Related Data Home Medications Medication Instructions Recorded Confirmed Disabled Parking Permit 1 % SEEINSTR 11/08/20 11/13/23 amlodipine 5 mg tablet 5 mg PO BEDTIME 11/08/22 11/13/23 hydrochlorothiazide 25 mg tablet 12.5 mg PO QAM 11/15/22 11/13/23 losartan 100 mg tablet 100 mg PO DAILY 11/15/22 11/13/23 Previous Rx's Medication Instructions Recorded albuterol sulfate 2.5 mg/3 mL 2.5 mg (3 mL) continuous 10/24/22 (0.083 %) solution for nebulization nebulization Q6HP PRN shortness of breath or wheezing #360 mL ibuprofen 400 mg tablet 400 mg PO Q4HR PRN Pain, Mild 11/16/22 (1-3) #60 tabs albuterol sulfate 90 mcg/actuation 1 inh inhalation Q4-6H PRN 12/27/22 aerosol inhaler shortness of breath #18 grams omeprazole 40 mg capsule,delayed 40 mg PO DAILY #90 caps 01/01/23 release lidocaine 5 % topical patch 2 patch topical DAILY #30 ea 01/08/23 ketoconazole 2 % topical cream 1 applic topical BID #30 grams 02/08/23 potassium chloride 20 mEq 20 meq PO BID #10 tabs 02/26/23 tablet,extended release ipratropium 0.5 mg-albuterol 3 mg 3 ml inhalation Q6H PRN shortness 03/19/23 (2.5 mg base)/3 mL nebulization of breath or wheezing #90 mL soln metoprolol succinate 100 mg 100 mg PO DAILY #90 tabs 07/11/23 tablet,extended release 24 hr sulfasalazine 500 mg tablet 1,000 mg (2 x 500 mg) PO BID #180 07/23/23 tabs meloxicam 15 mg tablet 15 mg PO DAILY #30 tabs 08/13/23 lidocaine 5 % topical patch 1 patch topical DAILY #30 ea 09/02/23 valacyclovir 1 gram tablet 1,000 mg PO TID #30 tabs 09/02/23 prednisone 20 mg tablet 40 mg (2 x 20 mg) PO DAILY #10 tabs 09/12/23 nitroglycerin 0.4 mg sublingual 0.4 mg sublingual Q5M PRN chest 10/03/23 tablet pain #20 tabs fluoxetine 10 mg capsule See Rx Instructions .Route 10/08/23 .COMPLEX #90 caps fluoxetine 20 mg capsule 20 mg PO DAILY #90 caps 10/08/23 ferrous gluconate 324 mg (37.5 mg 324 mg PO DAILY #90 tabs 10/22/23 iron) tablet hydromorphone 2 mg tablet 2 mg PO BEDTIME PRN pain #30 tabs 11/01/23 methocarbamol 750 mg tablet 750 mg PO QID PRN pain, severe #56 11/01/23 tabs oxycodone 10 mg tablet 10 mg PO Q8H PRN pain #84 tabs 11/06/23 Allergies Allergy/AdvReac Type Severity Reaction Status Date / Time cyclobenzaprine Allergy Severe Dizziness, Verified 11/13/23 10:55 [From Flexeril] I bounce off ag acetaminophen [ACETAMINOPHEN] AdvReac Unknown Can't take Verified 11/13/23 10:55 r/t Hep C; upset stomach Review of Systems <Álvaro Knowles PA-C - Last Filed: 11/16/23 11:18> Review of Systems Narrative: GENERAL: Denies chills, fatigue, malaise, fever, sweats. HEENT: Reports headache, Denies sinus pain, ear pain, sore throat, difficulty swallowing, dizziness. RESPIRATORY: Denies dyspnea, cough, wheezing, hemoptysis, sputum. CARDIOVASCULAR: Reports chest pain Denies, palpitations, orthopnea, edema, GASTROINTESTINAL: Denies nausea, vomiting, abdominal pain, diarrhea, constipation, melena. : Denies dysuria, frequency, incontinence, hematuria, urinary retention. MUSCULOSKELETAL: Reports bilateral knee pain, denies weakness, joint pain, or bony pain SKIN: Denies rash, skin lesions, or other NEUROLOGIC: Denies weakness, headache, numbness, change in speech, confusion, seizures, incoordination. PSYCHIATRIC: No concerning psychosocial issues. 12 point review of systems is negative except for those stated above Patient History <Álvaro Knowles PA-C - Last Filed: 11/16/23 11:18> Medical History Left knee pain Chronic diarrhea Eustachian tube dysfunction Seasonal allergic rhinitis Dyspepsia Anemia Tinea Abdominal wall pain in both lower quadrants Constipation Aftercare following left shoulder joint replacement surgery Preoperative clearance Left lateral epicondylitis Adhesive capsulitis Right wrist sprain Oral lesion Colles' fracture Right wrist pain Left shoulder strain Anxiety Fibromyalgia Sinus drainage Chronic ankle pain, bilateral Rheumatoid arthritis Acute exacerbation of chronic bronchitis Foraminal stenosis of lumbar region Peripheral neuropathy Pneumonia (~2017) Impotence (Unknown) Restless leg syndrome (Unknown) Arthritis (Unknown) Chronic pain syndrome (Unknown) Kidney stones (Unknown) Prostate cancer (Unknown) Skin cancer (Unknown) Hepatitis C (Unknown) Hypertension (Unknown) Migraines (Unknown) PTSD (post-traumatic stress disorder) (Unknown) Depression (Unknown) Surgical History S/P lumbar fusion History of lumbar fusion (05/10/22) History of ankle surgery 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 Social History marital status: household members: spouse lives independently: Yes occupational status: previously employed Smoking Status: Former smoker Tobacco: How many years used: 20 quit status: has quit before alcohol intake: former substance use type: former substance user and marijuana Smoking Status: Former smoker tobacco type: cigarettes alcohol intake frequency: 0-2 drinks per day Substance Use Type: does not use Exam <SAWYER Julio Last Filed: 11/16/23 11:18> Narrative Exam Narrative: GENERAL: Well-developed patient, in mild distress. HEAD: Atraumatic. Normocephalic. EYES: Pupils equal round and reactive. Extraocular motions intact. No scleral icterus. No injection or drainage. ENT: Nose without bleeding, purulent drainage. Throat without erythema, tonsillar hypertrophy or exudate. Airway patent. NECK: Trachea midline. Non tender EXTREMITIES: Mild tenderness to palpation to bilateral knees NEURO: AOx3. Cranial nerves 2-12 intact SKIN: No rash or erythema of visible areas CARDIOVASCULAR: Regular rate and rhythm without murmurs, gallops, or rubs. RESPIRATORY: Clear to auscultation. Breath sounds equal bilaterally. No wheezes, rales, or rhonchi. GASTROINTESTINAL: Abdomen soft, non-tender, nondistended. BACK: Nontender without deformity or crepitance. No flank tenderness. Initial Vital Signs Initial Vital Signs: Vital Signs Temperature 98.8 F 11/15/23 15:26 Pulse Rate 84 11/15/23 15:26 Respiratory Rate 16 11/15/23 15:26 Blood Pressure 176/84 H 11/15/23 15:26 Pulse Oximetry 98 11/15/23 15:26 Oxygen Delivery Method Room Air 11/15/23 15:26 <Geovanny Sidhu DO - Last Filed: 11/16/23 13:53> Initial Vital Signs Initial Vital Signs: Vital Signs Temperature 98.8 F 11/15/23 15:26 Pulse Rate 84 11/15/23 15:26 Respiratory Rate 16 11/15/23 15:26 Blood Pressure 176/84 H 11/15/23 15:26 Pulse Oximetry 98 11/15/23 15:26 Oxygen Delivery Method Room Air 11/15/23 15:26 Course <Álvaro Knowles PA-C - Last Filed: 11/16/23 11:18> Orders Ordered: Discontinued Medications Dexamethasone (Dexamethasone 10 Mg/Ml Vial) 10 mg IV NOW ONE Stop: 11/15/23 15:44 Last Admin: 11/15/23 16:14 Dose: 10 mg Documented By: GEORGE Diphenhydramine HCl (Diphenhydramine 50 Mg/Ml Vial) 25 mg IV NOW ONE Stop: 11/15/23 15:42 Last Admin: 11/15/23 16:14 Dose: 25 mg Documented By: CTS Sodium Chloride (Normal Saline 0.9%) 1,000 mls @ 1,000 mls/hr IV BOLUS ONE Stop: 11/15/23 16:40 Last Infusion: 11/15/23 17:16 Dose: Infused Documented By: Admin: 11/15/23 16:14 Dose: 1,000 mls/hr Documented By: CTS Ketorolac Tromethamine (Ketorolac 30 Mg/Ml Vial) 15 mg IV NOW ONE Stop: 11/15/23 15:42 Last Admin: 11/15/23 16:20 Dose: 15 mg Documented By: CTS Vital Signs Vital signs: Vital Signs - 8 hr 11/15/23 15:26 11/15/23 15:47 11/15/23 17:23 Temperature 98.8 F Pulse Rate 84 78 76 Respiratory Rate 16 18 20 Blood Pressure 176/84 H 162/81 H 189/89 H Pulse Oximetry 98 98 98 Oxygen Delivery Method Room Air Room Air Room Air <Geovanny Sidhu DO - Last Filed: 11/16/23 13:53> Orders Ordered: Discontinued Medications Dexamethasone (Dexamethasone 10 Mg/Ml Vial) 10 mg IV NOW ONE Stop: 11/15/23 15:44 Last Admin: 11/15/23 16:14 Dose: 10 mg Documented By: CTS Diphenhydramine HCl (Diphenhydramine 50 Mg/Ml Vial) 25 mg IV NOW ONE Stop: 11/15/23 15:42 Last Admin: 11/15/23 16:14 Dose: 25 mg Documented By: CTS Sodium Chloride (Normal Saline 0.9%) 1,000 mls @ 1,000 mls/hr IV BOLUS ONE Stop: 11/15/23 16:40 Last Infusion: 11/15/23 17:16 Dose: Infused Documented By: Admin: 11/15/23 16:14 Dose: 1,000 mls/hr Documented By: CTS Ketorolac Tromethamine (Ketorolac 30 Mg/Ml Vial) 15 mg IV NOW ONE Stop: 11/15/23 15:42 Last Admin: 11/15/23 16:20 Dose: 15 mg Documented By: CTS Vital Signs Vital signs: Vital Signs - 8 hr 11/15/23 15:26 11/15/23 15:47 11/15/23 17:23 Temperature 98.8 F Pulse Rate 84 78 76 Respiratory Rate 16 18 20 Blood Pressure 176/84 H 162/81 H 189/89 H Pulse Oximetry 98 98 98 Oxygen Delivery Method Room Air Room Air Room Air MDM - Extremity Injury (Lower) <Álvaro Knowles PA-C - Last Filed: 11/16/23 11:18> Lab Data Labs: Lab Results 11/15/23 Range/Units 16:12 Total Creatine Kinase 35 L (55-170) U/L Troponin I 0.016 (0.01-0.034) ng/mL Imaging Data Extremity x-ray #1: Radiologist's Impression: [address] [address] XRay Report Signed Patient: Barrett Tam MR#: [id number] : 1945 Acct:[id number] Age/Sex: 78 / M Date of Service: 11/15/23 Loc: ED Accession Number: [id number] Procedure: XR knee LT 3V Ordering Provider: Álvaro Knowles P.A-C PROCEDURE: XR KNEE LT 3V INDICATIONS: L knee pain TECHNIQUE: 3 views of the knee were acquired. COMPARISON: [facility], CR, XR KNEE 4+ VIEWS LEFT, 10/28/2023, 16:45. [facility], MR, MR KNEE LT WO CON, 10/30/2023, 17:04. [facility], CR, XR KNEE LT 3V, 10/31/2023, 14:14. FINDINGS: Bones: No fractures or dislocations. No suspicious bony lesions. There is lucency in the medial aspect of the patella, probably subchondral cyst. Mild tricompartmental knee joint degeneration. Soft tissues: Small joint effusion. No suspicious soft tissue calcifications. IMPRESSION: 1. No acute bony abnormality or significant effusion. 2. Lucency in the medial aspect of patella, probably subchondral cyst. 3. Mild degenerative joint disease. 4. Small knee joint effusion. Dictated by: Rangel Husain M.D. on 11/15/2023 at 17:20 Approved by: Rangel Husain M.D. on 11/15/2023 at 17:22 Chest x-ray: Radiologist's Impression: [address] [address] XRay Report Signed Patient: Barrett Tam MR#: [id number] : 1945 Acct:[id number] Age/Sex: 78 / M Date of Service: 11/15/23 Loc: ED Accession Number: [id number] Procedure: XR chest 1V Ordering Provider: Álvaro Knowles P.A-C PROCEDURE: XR CHEST 1V INDICATIONS: chest pain TECHNIQUE: One view of the chest was acquired. COMPARISON: [facility], , XR CHEST 1V, 10/31/2023, 14:06. FINDINGS: Surgical changes and devices: None. Lungs and pleura: There are calcified granulomas in the right lower lung zone. Lungs are clear. No pleural effusions or pneumothorax. Mediastinum: Mediastinal contours appear normal. Heart size is normal. Bones and chest wall: Bilateral shoulder arthroplasties. No suspicious bony lesions. Overlying soft tissues appear unremarkable. IMPRESSION: No acute cardiopulmonary abnormality is seen. Dictated by: Rangel Husain M.D. on 11/15/2023 at 17:20 Approved by: Rangel Husain M.D. on 11/15/2023 at 17:20 Extremity x-ray #2: Radiologist's Impression: [address] [address] XRay Report Signed Patient: Barrett Tam MR#: [id number] : 1945 Acct:[id number] Age/Sex: 78 / M Date of Service: 11/15/23 Loc: ED Accession Number: [id number] Procedure: XR knee RT 3V Ordering Provider: Álvaro Knowles P.A-C PROCEDURE: XR KNEE RT 3V INDICATIONS: R knee pain TECHNIQUE: 3 views of the knee were acquired. COMPARISON: [facility], , XR KNEE RT 3V, 11/11/2023, 14:57. FINDINGS: Bones: Postsurgical changes with medial knee arthroplasty. No fractures or dislocations. No suspicious bony lesions. Moderate patellofemoral joint degeneration and lateral femorotibial joint degeneration. Soft tissues: Moderate joint effusion. No suspicious soft tissue calcifications. IMPRESSION: 1. No acute bony abnormality. 2. Medial knee arthroplasty. 3. Moderate degenerative joint disease. 4. Moderate knee joint effusion. Dictated by: Rangel Husain M.D. on 11/15/2023 at 17:27 Approved by: Rangel Husain M.D. on 11/15/2023 at 17:29 ECG Data Interpretation: EKG is normal sinus rhythm rate 72 and free of any signs of ischemia or ectopy. No ST segmental elevation or depression. No T wave inversions MDM Narrative Medical decision making narrative: ED course: This is a 78-year-old male with a very significant medical history including chronic pain complaining of bilateral knee pain after falling on the ground earlier today. He already was seen in emergency department 3 days ago due with a right knee injury and had establish with a primary care doctor to be seen for MRIs of bilateral knees. X-rays taken today were unremarkable for any new changes. We will follow up with primary care provider for long-term management. Also complaining of a migraine as patient has a history of migraines. Cranial nerves 2-12 intact and very reassuring neuro exam and very low suspicion for any kind of intracranial bleed. Patient given medications to help with the migraine pain. Strongly advised patient to follow up with the primary care provider as he was long-term pain management patient for possible narcotics. Kopperl through the encounter patient also began complaining of chest pain although does have these episodes in the past with unremarkable workup. Troponin, EKG, chest x-ray unremarkable. CC: Bilateral knee pain Complicating co-morbidities: History of chronic pain as well as knee pain Data collected from: Previous notes Medical records reviewed: Patient was seen here 3 days ago due to a right knee injury. History of bilateral knee pain. History of chronic oxycodone use. Twitches knee 2 days prior to being seen. History of left knee pain and was scheduled to have an MRI for. In up twisting his right knee has now complaining of pain.. Significant medical history. History of right knee surgery. X-rays were taken which showed no acute injury. Advised to be nonweightbearing. He stated that he would follow up with his primary care provider on the 1st start (yesterday). No pain medication prescribed Differential considered, but not limited to: Fracture, ischemic stroke, subarachnoid hemorrhage, sprain Exam documented above, pertinent findings include: No joint laxity in the knees. Cranial nerves 2-12 intact Lab Test results independently reviewed as above. Pertinent findings: No remarkable findings Imaging studies independently reviewed: Knee x-ray showed no new acute changes Scores Used: None MIPS Elements: None Consultations: None Treatments: Toradol, normal saline, Decadron, Benadryl Re-evaluations: None Discussion: Discussed plan with the patient was comfortable with the plan Diagnosis: Bilateral knee pain, migraine Disposition: see below, along with detailed discharge instructions that have been reviewed with patient as well as indications for ED re-evaluation and additional outpatient follow up <Geovanny Sidhu, - Last Filed: 11/16/23 13:53> Lab Data Labs: Lab Results 11/15/23 Range/Units 16:12 Total Creatine Kinase 35 L (55-170) U/L Troponin I 0.016 (0.01-0.034) ng/mL Discharge Plan Departure Patient Disposition: Home Clinical Impression: Headache Instructions: DI for Headache Activity Restrictions/Additional Instructions: Thank you for coming to the [facility] Emergency Department today. Your neuro exam was reassuring and I have a very low concern for any kind of intracranial bleed. Your cardiac workup was unremarkable. Your x-rays of your knee showed no new changes. Please follow up with the primary care provider for long-term pain control. Please return to the emergency department if you develop any slurred speech, significant weakness, or any other concerning signs or symptoms. I hope you feel better soon. Please follow up with your primary care provider within a week if your symptoms continue. If you do not have a primary care provider please contact the [facility] Resource line at [phone]. They will ask some questions about your medical history and help you get set up with a provider in the community. Prescriptions: No Action albuterol sulfate 2.5 mg /3 mL (0.083 %) solution for nebulization 2.5 mg Continuous Nebulization Q6HP PRN (Reason: shortness of breath or wheezing) Qty: 360 2RF albuterol sulfate 90 mcg/actuation HFA aerosol inhaler 1 inh INHALATION Q4-6H PRN (Reason: shortness of breath) Qty: 18 4RF omeprazole 40 mg capsule,delayed release(DR/EC) 40 mg PO DAILY Qty: 90 3RF Rx Instructions: take 1 capsule by mouth once daily lidocaine 5 % adhesive patch,medicated 2 patch topical DAILY Qty: 30 1RF Rx Instructions: leave on most painful area for up to 12 hrs metoprolol succinate 100 mg tablet extended release 24 hr 100 mg PO DAILY Qty: 90 1RF nitroglycerin 0.4 mg tablet, sublingual 0.4 mg sublingual Q5M PRN (Reason: chest pain) Qty: 20 1RF Rx Instructions: do not exceed 3 doses per episode fluoxetine 10 mg capsule See Rx Instructions .ROUTE .COMPLEX Qty: 90 3RF Dose Instruction: take 1 capsule by mouth once daily WITH 20MG CAP DAILY TOTAL 30 MG DAILY Rx Instructions: take 1 capsule by mouth once daily WITH 20MG CAP DAILY TOTAL 30 MG DAILY fluoxetine 20 mg capsule 20 mg PO DAILY Qty: 90 3RF Rx Instructions: Take with 10 mg to complete 30 mg dose methocarbamol 750 mg tablet 750 mg PO QID PRN (Reason: pain, severe) Qty: 56 0RF hydromorphone 2 mg tablet 2 mg PO BEDTIME PRN (Reason: pain) Qty: 30 0RF Rx Instructions: Must last to December 03, 2023 prednisone 20 mg tablet 40 mg PO DAILY Qty: 10 0RF oxycodone 10 mg tablet 10 mg PO Q8H PRN (Reason: pain) Qty: 84 0RF Rx Instructions: to augment chronic TID dosing due to shingles pain ketoconazole 2 % cream 1 applic topical BID Qty: 30 1RF sulfasalazine 500 mg tablet 1,000 mg PO BID Qty: 180 1RF meloxicam 15 mg tablet 15 mg PO DAILY Qty: 30 0RF ferrous gluconate 324 mg (37.5 mg iron) tablet 324 mg PO DAILY Qty: 90 2RF Rx Instructions: start taking daily, with food or juice potassium chloride 20 mEq tablet extended release 20 meq PO BID Qty: 10 0RF lidocaine 5 % adhesive patch,medicated 1 patch topical DAILY Qty: 30 0RF Rx Instructions: against spine T9 level for shingles pain valacyclovir 1 gram tablet 1,000 mg PO TID Qty: 30 0RF Disabled Parking Permit 1 1 % SEEINSTR Rx Instructions: Valid for 5 years amlodipine 5 mg tablet 5 mg PO BEDTIME Patient Comments: pt received dose in hospital 11/10/19 early AM admit to hydrochlorothiazide 25 mg tablet 12.5 mg PO QAM losartan 100 mg tablet 100 mg PO DAILY ibuprofen 400 mg Tablet 400 mg PO Q4HR PRN (Reason: Pain, Mild (1-3)) Qty: 60 0RF ipratropium-albuterol 0.5 mg-3 mg(2.5 mg base)/3 mL solution for nebulization 3 ml inhalation Q6H PRN (Reason: shortness of breath or wheezing) Qty: 90 0RF Referrals: Edilberto Snell DO [Primary Care Provider] - Stand Alone Forms: Patient Portal/API ED Sign-out <Geovanny Sidhu DO - Last Filed: 11/16/23 13:53> [facility]: Dr Sidhu Co-Sign Statement: I was available for consultation during this patient's emergency department visit. This chart is signed by myself for administrative purposes only. I did not have direct contact with this patient during this visit. They were seen independently by the APC.
--- NOTE | 2023-11-15 15:46 | DI.RAD.S_ITS ---
PROCEDURE: XR CHEST 1V INDICATIONS: chest pain TECHNIQUE: One view of the chest was acquired. COMPARISON: [facility], CR, XR CHEST 1V, 10/31/2023, 14:06. FINDINGS: Surgical changes and devices: None. Lungs and pleura: There are calcified granulomas in the right lower lung zone. Lungs are clear. No pleural effusions or pneumothorax. Mediastinum: Mediastinal contours appear normal. Heart size is normal. Bones and chest wall: Bilateral shoulder arthroplasties. No suspicious bony lesions. Overlying soft tissues appear unremarkable. IMPRESSION: No acute cardiopulmonary abnormality is seen. Dictated by: Rangel Husain M.D. on 11/15/2023 at 17:20 Approved by: Rangel Husain M.D. on 11/15/2023 at 17:20
--- NOTE | 2023-11-15 15:46 | PC.NURSE ---
Pt reporting 5/10 chest pain at this time. Benson JACQUES made aware. RT called for EKG.
[2023-11-15 15:47] VITALS: BP 162/81; PULSE 78; RESP 18; O2SAT 98
--- NOTE | 2023-11-15 15:47 | DI.RAD.S_ITS ---
PROCEDURE: XR KNEE RT 3V INDICATIONS: R knee pain TECHNIQUE: 3 views of the knee were acquired. COMPARISON: [facility], , XR KNEE RT 3V, 11/11/2023, 14:57. FINDINGS: Bones: Postsurgical changes with medial knee arthroplasty. No fractures or dislocations. No suspicious bony lesions. Moderate patellofemoral joint degeneration and lateral femorotibial joint degeneration. Soft tissues: Moderate joint effusion. No suspicious soft tissue calcifications. IMPRESSION: 1. No acute bony abnormality. 2. Medial knee arthroplasty. 3. Moderate degenerative joint disease. 4. Moderate knee joint effusion. Dictated by: Rangel Husain M.D. on 11/15/2023 at 17:27 Approved by: Rangel Husain M.D. on 11/15/2023 at 17:29
--- NOTE | 2023-11-15 15:47 | DI.RAD.S_ITS ---
PROCEDURE: XR KNEE LT 3V INDICATIONS: L knee pain TECHNIQUE: 3 views of the knee were acquired. COMPARISON: [facility], CR, XR KNEE 4+ VIEWS LEFT, 10/28/2023, 16:45. [facility], MR, MR KNEE LT WO CON, 10/30/2023, 17:04. [facility], CR, XR KNEE LT 3V, 10/31/2023, 14:14. FINDINGS: Bones: No fractures or dislocations. No suspicious bony lesions. There is lucency in the medial aspect of the patella, probably subchondral cyst. Mild tricompartmental knee joint degeneration. Soft tissues: Small joint effusion. No suspicious soft tissue calcifications. IMPRESSION: 1. No acute bony abnormality or significant effusion. 2. Lucency in the medial aspect of patella, probably subchondral cyst. 3. Mild degenerative joint disease. 4. Small knee joint effusion. Dictated by: Rangel Husain M.D. on 11/15/2023 at 17:20 Approved by: Rangel Husain M.D. on 11/15/2023 at 17:22
[2023-11-15] MEDS: DEXAMETHASONE 10 MG/ML VIAL IV (16:14)
[2023-11-15] MEDS: SODIUM CHLORIDE 0.9% 1,000 ML 1000 ML IV (16:14)
[2023-11-15] MEDS: diphenhydrAMINE 50 MG/ML VIAL 25 MG IV (16:14)
[2023-11-15] MEDS: KETOROLAC 30 MG/ML VIAL 15 MG IV (16:20)
[2023-11-15 16:36] LABS: Creatine Kinase 35 U/L (55-170)
[2023-11-15 16:49] LABS: Troponin I 0.016 ng/mL (0.01-0.034)
--- NOTE | 2023-11-15 17:20 | PC.NURSE ---
Pt requesting pain medication within 10 min of administering meds per DEC. Advised meds will take some time to work. Records show hydromorphone 2mg tabs were filled on 11/01/23. Pt claims he has not picked them up. Advised by FIORDALIZA Julio that he will not be receiving narcotic pain medication in ED. Advised he needs to case picker his medications at the pharmacy. Pt started coughing violently in attempt to make himself vomit. Requesting water. Given. Vitals taken by HRIS COORDINATOR. When asking patient if there is anything else RN can provide for him, he states no i want to go home this place is a waste of time and money. IV removed. Awaiting DC paperwork.
[2023-11-15 17:23] VITALS: BP 189/89; PULSE 76; RESP 20; O2SAT 98
== END 2023-11-15 17:23 | disposition home or self-care (01) ==
PROVIDERS: Emergency Provider Physician Assistant Medical; PCP Family Medicine
DX: R51.9 Headache, unspecified (principal); M25.562 Pain in left knee; M25.561 Pain in right knee; R07.9 Chest pain, unspecified; W18.30XA Fall on same level, unspecified, initial encounter; Z79.899 Other long term (current) drug therapy
CPT/HCPCS: 36415; 71045; 73562; 82550; 84484; 93005; 96361; 96374; 96375; 99284; J1100; J1200; J1885

== ENCOUNTER 2023-11-20 16:44 | Emergency (ER) | payer MEDICARE, OTHER, SELFPAY ==
[2022-11-15 12:10] VITALS: BMI 30.8
[2023-11-20] VITALS (7 sets, daily range): BP systolic 150–181; BP diastolic 70–84; PULSE 71–76; RESP 19–33; TEMP 36.4; O2SAT 96–99; BMI 29.4
--- NOTE | 2023-11-20 17:16 | DI.RAD.S_ITS ---
PROCEDURE: XR KNEE LT 1TO2V INDICATIONS: GLF/KNEE PAIN TECHNIQUE: 2 views of the knee were acquired. COMPARISON: None. FINDINGS: Bones: No fractures or dislocations. No suspicious bony lesions. Soft tissues: Question small joint effusion. No suspicious soft tissue calcifications. IMPRESSION: 1. No acute bony abnormality 2. Question small knee joint effusion. Dictated by: Rangel Husain M.D. on 11/20/2023 at 18:05 Approved by: Rangel Husain M.D. on 11/20/2023 at 18:06
--- NOTE | 2023-11-20 17:16 | DI.RAD.S_ITS ---
PROCEDURE: XR CHEST 1V INDICATIONS: chest pain TECHNIQUE: One view of the chest was acquired. COMPARISON: [facility], CR, XR CHEST 1V, 10/31/2023, 14:06. [facility], CR, XR CHEST 1V, 11/15/2023, 15:53. FINDINGS: Surgical changes and devices: None. Lungs and pleura: Lungs are clear. No pleural effusions or pneumothorax. There are calcified granuloma is in right lung. Mediastinum: Mediastinal contours appear normal. Heart size is normal. Bones and chest wall: Bilateral shoulder arthroplasties. Old left distal clavicular shaft fracture. No suspicious bony lesions. Overlying soft tissues appear unremarkable. IMPRESSION: 1. No acute cardiopulmonary abnormality is seen. 2. Remote granulomatous disease. Dictated by: Rangel Husain M.D. on 11/20/2023 at 17:43 Approved by: Rangel Husain M.D. on 11/20/2023 at 17:44
--- NOTE | 2023-11-20 17:17 | ED.FALL ---
HPI - Fall <Carie Santana MD - Last Filed: 11/22/23 07:08> General Chief Complaint: Fall Stated Complaint: legs giving out on him, chest pain Time Seen by Provider: 11/20/23 16:49 Source: patient Mode of arrival: Wheelchair History of Present Illness HPI Narrative: 78-year-old male with history of arthritis, chronic pain, history of hep C, multiple presentations to the emergency department presents by private vehicle from home for a fall with knee pain. Multiple presentations for similar. Patient states that his left knee gave out and he fell, landing on his knee. He did not hit his head, he did not lose consciousness, he is not on blood thinners. He states that after his knee pain began he felt left-sided chest pain and a migraine start. Related Data Home Medications Medication Instructions Recorded Confirmed Disabled Parking Permit 1 % SEEINSTR 11/08/20 11/21/23 amlodipine 5 mg tablet 5 mg PO BEDTIME 11/08/22 11/21/23 hydrochlorothiazide 25 mg tablet 12.5 mg PO QAM 11/15/22 11/21/23 losartan 100 mg tablet 100 mg PO DAILY 11/15/22 11/21/23 Previous Rx's Medication Instructions Recorded albuterol sulfate 2.5 mg/3 mL 2.5 mg (3 mL) continuous 10/24/22 (0.083 %) solution for nebulization nebulization Q6HP PRN shortness of breath or wheezing #360 mL ibuprofen 400 mg tablet 400 mg PO Q4HR PRN Pain, Mild 11/16/22 (1-3) #60 tabs albuterol sulfate 90 mcg/actuation 1 inh inhalation Q4-6H PRN 12/27/22 aerosol inhaler shortness of breath #18 grams omeprazole 40 mg capsule,delayed 40 mg PO DAILY #90 caps 01/01/23 release lidocaine 5 % topical patch 2 patch topical DAILY #30 ea 01/08/23 ketoconazole 2 % topical cream 1 applic topical BID #30 grams 02/08/23 potassium chloride 20 mEq 20 meq PO BID #10 tabs 02/26/23 tablet,extended release ipratropium 0.5 mg-albuterol 3 mg 3 ml inhalation Q6H PRN shortness 03/19/23 (2.5 mg base)/3 mL nebulization of breath or wheezing #90 mL soln metoprolol succinate 100 mg 100 mg PO DAILY #90 tabs 07/11/23 tablet,extended release 24 hr sulfasalazine 500 mg tablet 1,000 mg (2 x 500 mg) PO BID #180 07/23/23 tabs meloxicam 15 mg tablet 15 mg PO DAILY #30 tabs 08/13/23 lidocaine 5 % topical patch 1 patch topical DAILY #30 ea 09/02/23 valacyclovir 1 gram tablet 1,000 mg PO TID #30 tabs 09/02/23 nitroglycerin 0.4 mg sublingual 0.4 mg sublingual Q5M PRN chest 10/03/23 tablet pain #20 tabs fluoxetine 10 mg capsule See Rx Instructions .Route 10/08/23 .COMPLEX #90 caps fluoxetine 20 mg capsule 20 mg PO DAILY #90 caps 10/08/23 ferrous gluconate 324 mg (37.5 mg 324 mg PO DAILY #90 tabs 10/22/23 iron) tablet hydromorphone 2 mg tablet 2 mg PO BEDTIME PRN pain #30 tabs 11/01/23 methocarbamol 750 mg tablet 750 mg PO QID PRN pain, severe #56 11/01/23 tabs oxycodone 10 mg tablet 10 mg PO Q8H PRN pain #84 tabs 11/06/23 Allergies Allergy/AdvReac Type Severity Reaction Status Date / Time cyclobenzaprine Allergy Severe Dizziness, Verified 11/21/23 11:23 [From Flexeril] I bounce off ag acetaminophen [ACETAMINOPHEN] AdvReac Unknown Can't take Verified 11/21/23 11:23 r/t Hep C; upset stomach Review of Systems <Carie Santana MD - Last Filed: 11/22/23 07:08> Review of Systems Narrative: Negative except as noted above Patient History <Carie Santana MD - Last Filed: 11/22/23 07:08> Medical History Left knee pain Chronic diarrhea Eustachian tube dysfunction Seasonal allergic rhinitis Dyspepsia Anemia Tinea Abdominal wall pain in both lower quadrants Constipation Aftercare following left shoulder joint replacement surgery Preoperative clearance Left lateral epicondylitis Adhesive capsulitis Right wrist sprain Oral lesion Colles' fracture Right wrist pain Left shoulder strain Anxiety Fibromyalgia Sinus drainage Chronic ankle pain, bilateral Rheumatoid arthritis Acute exacerbation of chronic bronchitis Foraminal stenosis of lumbar region Peripheral neuropathy Pneumonia (~2018) Impotence (Unknown) Restless leg syndrome (Unknown) Arthritis (Unknown) Chronic pain syndrome (Unknown) Kidney stones (Unknown) Prostate cancer (Unknown) Skin cancer (Unknown) Hepatitis C (Unknown) Hypertension (Unknown) Migraines (Unknown) PTSD (post-traumatic stress disorder) (Unknown) Depression (Unknown) Surgical History S/P lumbar fusion History of lumbar fusion (05/10/22) History of ankle surgery 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 Social History marital status: household members: spouse lives independently: Yes occupational status: previously employed Smoking Status: Former smoker Tobacco: How many years used: 20 quit status: has quit before alcohol intake: former substance use type: former substance user and marijuana Smoking Status: Former smoker tobacco type: cigarettes alcohol intake frequency: 0-2 drinks per day Substance Use Type: does not use Exam <Carie Santana MD - Last Filed: 11/22/23 07:08> Initial Vital Signs Initial Vital Signs: Vital Signs Temperature 97.6 F 11/20/23 16:50 Pulse Rate 73 11/20/23 16:50 Respiratory Rate 22 11/20/23 16:50 Blood Pressure 181/84 H 11/20/23 16:50 Pulse Oximetry 98 11/20/23 16:50 Oxygen Delivery Method Room Air 11/20/23 16:50 Const: Awake, alert, appears chronically unwell, holding his head Cardiac: regular rate, regular rhythm RESP: unlabored, clear bilaterally, no wheezing GI: Atraumatic, soft, nontender, nondistended, no rebound, no guarding MSK: Atraumatic, full range of motion, pulses equal Skin: Warm, Dry, intact, no rashes Neuro: AO x3, CN II-XII grossly intact, moves all extremities <Geovanny Sidhu DO - Last Filed: 11/20/23 19:15> Initial Vital Signs Initial Vital Signs: Vital Signs Temperature 97.6 F 11/20/23 16:50 Pulse Rate 73 11/20/23 16:50 Respiratory Rate 22 11/20/23 16:50 Blood Pressure 181/84 H 11/20/23 16:50 Pulse Oximetry 98 11/20/23 16:50 Oxygen Delivery Method Room Air 11/20/23 16:50 Course <Carie Santana MD - Last Filed: 11/22/23 07:08> Orders Ordered: Discontinued Medications Diphenhydramine HCl (Diphenhydramine 50 Mg/Ml Vial) 50 mg IV NOW ONE Stop: 11/20/23 17:16 Last Admin: 11/20/23 17:38 Dose: Not Given Documented By: GEORGE Diphenhydramine HCl (Diphenhydramine 50 Mg/Ml Vial) 50 mg IM NOW ONE Stop: 11/20/23 17:37 Last Admin: 11/20/23 17:40 Dose: 50 mg Documented By: HUGH Ketorolac Tromethamine (Ketorolac 30 Mg/Ml Vial) 15 mg IV NOW ONE Stop: 11/20/23 17:16 Last Admin: 11/20/23 17:38 Dose: Not Given Documented By: GEORGE Ketorolac Tromethamine (Ketorolac 30 Mg/Ml Vial) 15 mg IM NOW ONE Stop: 11/20/23 17:37 Last Admin: 11/20/23 17:40 Dose: 15 mg Documented By: HUGH Metoclopramide HCl (Metoclopramide 10 Mg/2 Ml Inj) 10 mg IV NOW ONE Stop: 11/20/23 17:16 Last Admin: 11/20/23 17:38 Dose: Not Given Documented By: GEORGE Metoclopramide HCl (Metoclopramide 10 Mg/2 Ml Inj) 10 mg IM NOW ONE Stop: 11/20/23 17:38 Last Admin: 11/20/23 17:40 Dose: 10 mg Documented By: HUGH Vital Signs Vital signs: Vital Signs - 8 hr 11/20/23 16:50 11/20/23 17:09 11/20/23 17:30 Temperature 97.6 F Pulse Rate 73 71 76 Respiratory Rate 22 Blood Pressure 181/84 H Pulse Oximetry 98 98 96 Oxygen Delivery Method Room Air 11/20/23 18:00 11/20/23 18:17 11/20/23 18:17 Temperature Pulse Rate 71 72 Respiratory Rate 22 23 Blood Pressure 150/70 H Pulse Oximetry 99 98 Oxygen Delivery Method <Geovanny Sidhu, - Last Filed: 11/20/23 19:15> Orders Ordered: Discontinued Medications Diphenhydramine HCl (Diphenhydramine 50 Mg/Ml Vial) 50 mg IV NOW ONE Stop: 11/20/23 17:16 Last Admin: 11/20/23 17:38 Dose: Not Given Documented By: GEORGE Diphenhydramine HCl (Diphenhydramine 50 Mg/Ml Vial) 50 mg IM NOW ONE Stop: 11/20/23 17:37 Last Admin: 11/20/23 17:40 Dose: 50 mg Documented By: HUGH Ketorolac Tromethamine (Ketorolac 30 Mg/Ml Vial) 15 mg IV NOW ONE Stop: 11/20/23 17:16 Last Admin: 11/20/23 17:38 Dose: Not Given Documented By: GEORGE Ketorolac Tromethamine (Ketorolac 30 Mg/Ml Vial) 15 mg IM NOW ONE Stop: 11/20/23 17:37 Last Admin: 11/20/23 17:40 Dose: 15 mg Documented By: HUGH Metoclopramide HCl (Metoclopramide 10 Mg/2 Ml Inj) 10 mg IV NOW ONE Stop: 11/20/23 17:16 Last Admin: 11/20/23 17:38 Dose: Not Given Documented By: GEORGE Metoclopramide HCl (Metoclopramide 10 Mg/2 Ml Inj) 10 mg IM NOW ONE Stop: 11/20/23 17:38 Last Admin: 11/20/23 17:40 Dose: 10 mg Documented By: HUGH Vital Signs Vital signs: Vital Signs - 8 hr 11/20/23 16:50 11/20/23 17:09 11/20/23 17:30 Temperature 97.6 F Pulse Rate 73 71 76 Respiratory Rate 22 Blood Pressure 181/84 H Pulse Oximetry 98 98 96 Oxygen Delivery Method Room Air 11/20/23 18:00 11/20/23 18:17 11/20/23 18:17 Temperature Pulse Rate 71 72 Respiratory Rate 22 23 Blood Pressure 150/70 H Pulse Oximetry 99 98 Oxygen Delivery Method MDM - Fall <Carie Santana MD - Last Filed: 11/22/23 07:08> Lab Data 11/20/23 17:05 11/20/23 17:05 Labs: Lab Results 11/20/23 11/20/23 Range/Units 17:05 18:30 WBC 9.9 (4.5-11.0) X10^3/uL RBC 4.50 (4.5-5.9) X10^6/uL Hgb 11.1 L (13.5-17.5) g/dL Hct 34.1 L (41-53) % MCV 75.7 L (80-100) fL MCH 24.7 L (26-34) PG MCHC 32.7 (30-36) % RDW 16.5 H (11.6-14.8) % Plt Count 417 H (150-400) X10^3/uL Neut % (Auto) 69.8 (50-75) % Lymph % (Auto) 15.5 L (25-40) % Haskell % (Auto) 9.9 (3-14) % Eos % (Auto) 3.5 (2-4) % Baso % (Auto) 1.3 (0-2) % Neut # (Auto) 6900 (3936-5785) /uL Lymph # (Auto) 1500 (0764-2006) /uL Haskell # (Auto) 1000 H (0-900) /uL Eos # (Auto) 300 (0-450) /uL Baso # (Auto) 100 (0-100) /uL Sodium 137 (137-145) mmol/L Potassium 3.6 (3.4-5.1) mmol/L Chloride 103 (98-107) mmol/L Carbon Dioxide 27 (22-32) mmol/L BUN 13 (9-20) mg/dL Creatinine 0.58 L (0.66-1.25) mg/dL Estimated GFR > 60 (>60) mL/min BUN/Creatinine Ratio 22.4 H (6-22) Glucose 97 (80-110) mg/dL Calcium 8.7 (8.4-10.2) mg/dL Total Bilirubin 0.4 (0.2-1.3) mg/dL AST 21 (17-59) IU/L ALT 14 (<50) IU/L Alkaline Phosphatase 75 (38-126) U/L Total Creatine Kinase 39 L (55-170) U/L Troponin I 0.018 0.018 (0.01-0.034) ng/mL Total Protein 7.6 (6.3-8.2) g/dL Albumin 3.9 (3.5-5.0) g/dL Globulin 3.7 (1.7-4.1) g/dL Albumin/Globulin Ratio 1.1 (1.0-2.8) MDM Narrative Medical decision making narrative: Chest pain and migraine that happened after patient's left knee gave out and he fell to the ground. Patient states that his primary concern coming here was making sure that his knee was not further injured. Patient has seen numerous times in our emergency department for knee pain and falls after his leg gives out. Patient states that he feels safe at home and uses a walker. He has an appointment with his orthopedic surgeon tomorrow. Patient has very extensive pain management contract, there is no indication for narcotics at this time as patient has both oxycodone and hydromorphone at home. Medications for migraine control ordered for patient. He states this is typical of his migraine headache. Patient has had CT imaging as recently as 09/30/2023, he did not hit his head during this incident and so at this time no indication for repeat head CT imaging. Initial troponin negative. EKG negative for acute ischemia. Patient continuing to complain of chest pain. We will order 2 hour troponin. Care of patient signed to Dr. Sidhu at 1815 Dr sidhu: Received turned over. Review patient's workup up to this point. 2 hour troponin is negative. Nonischemic EKG. Will discharge patient home with instructions to talk with his primary provider about pain management. <Geovanny Sidhu, DO - Last Filed: 11/20/23 19:15> Lab Data Labs: Lab Results 11/20/23 11/20/23 Range/Units 17:05 18:30 WBC 9.9 (4.5-11.0) X10^3/uL RBC 4.50 (4.5-5.9) X10^6/uL Hgb 11.1 L (13.5-17.5) g/dL Hct 34.1 L (41-53) % MCV 75.7 L (80-100) fL MCH 24.7 L (26-34) PG MCHC 32.7 (30-36) % RDW 16.5 H (11.6-14.8) % Plt Count 417 H (150-400) X10^3/uL Neut % (Auto) 69.8 (50-75) % Lymph % (Auto) 15.5 L (25-40) % Haskell % (Auto) 9.9 (3-14) % Eos % (Auto) 3.5 (2-4) % Baso % (Auto) 1.3 (0-2) % Neut # (Auto) 6900 (0086-7336) /uL Lymph # (Auto) 1500 (5239-8981) /uL Haskell # (Auto) 1000 H (0-900) /uL Eos # (Auto) 300 (0-450) /uL Baso # (Auto) 100 (0-100) /uL Sodium 137 (137-145) mmol/L Potassium 3.6 (3.4-5.1) mmol/L Chloride 103 (98-107) mmol/L Carbon Dioxide 27 (22-32) mmol/L BUN 13 (9-20) mg/dL Creatinine 0.58 L (0.66-1.25) mg/dL Estimated GFR > 60 (>60) mL/min BUN/Creatinine Ratio 22.4 H (6-22) Glucose 97 (80-110) mg/dL Calcium 8.7 (8.4-10.2) mg/dL Total Bilirubin 0.4 (0.2-1.3) mg/dL AST 21 (17-59) IU/L ALT 14 (<50) IU/L Alkaline Phosphatase 75 (38-126) U/L Total Creatine Kinase 39 L (55-170) U/L Troponin I 0.018 0.018 (0.01-0.034) ng/mL Total Protein 7.6 (6.3-8.2) g/dL Albumin 3.9 (3.5-5.0) g/dL Globulin 3.7 (1.7-4.1) g/dL Albumin/Globulin Ratio 1.1 (1.0-2.8) ECG Data Interpretation: Sinus rhythm Ventricular rate is [address] T wave changes MDM Narrative Medical decision making narrative: Chest pain and migraine that happened after patient's left knee gave out and he fell to the ground. Patient states that his primary concern coming here was making sure that his knee was not further injured. Patient has seen numerous times in our emergency department for knee pain and falls after his leg gives out. Patient states that he feels safe at home and uses a walker. He has an appointment with his orthopedic surgeon tomorrow. Patient has very extensive pain management contract, there is no indication for narcotics at this time as patient has both oxycodone and hydromorphone at home. Initial troponin negative. EKG negative for acute ischemia. Patient continuing to complain of chest pain. We will order 2 hour troponin. Care of patient signed to Dr. Sidhu at 1815 Dr sidhu: Received turned over. Review patient's workup up to this point. 2 hour troponin is negative. Nonischemic EKG. Will discharge patient home with instructions to talk with his primary provider about pain management. Discharge Plan Departure Patient Disposition: Home Clinical Impression: Chest pain, Left knee pain, Headache Instructions: How to Prevent Falls Activity Restrictions/Additional Instructions: You have been seen numerous times for falls after leg gives out. I recommend discussing with your orthopedic surgeon the possibility of using a wheelchair or going to rehab to strengthen your legs. Prescriptions: No Action albuterol sulfate 2.5 mg /3 mL (0.083 %) solution for nebulization 2.5 mg Continuous Nebulization Q6HP PRN (Reason: shortness of breath or wheezing) Qty: 360 2RF albuterol sulfate 90 mcg/actuation HFA aerosol inhaler 1 inh INHALATION Q4-6H PRN (Reason: shortness of breath) Qty: 18 4RF omeprazole 40 mg capsule,delayed release(DR/EC) 40 mg PO DAILY Qty: 90 3RF Rx Instructions: take 1 capsule by mouth once daily lidocaine 5 % adhesive patch,medicated 2 patch topical DAILY Qty: 30 1RF Rx Instructions: leave on most painful area for up to 12 hrs metoprolol succinate 100 mg tablet extended release 24 hr 100 mg PO DAILY Qty: 90 1RF nitroglycerin 0.4 mg tablet, sublingual 0.4 mg sublingual Q5M PRN (Reason: chest pain) Qty: 20 1RF Rx Instructions: do not exceed 3 doses per episode fluoxetine 10 mg capsule See Rx Instructions .ROUTE .COMPLEX Qty: 90 3RF Dose Instruction: take 1 capsule by mouth once daily WITH 20MG CAP DAILY TOTAL 30 MG DAILY Rx Instructions: take 1 capsule by mouth once daily WITH 20MG CAP DAILY TOTAL 30 MG DAILY fluoxetine 20 mg capsule 20 mg PO DAILY Qty: 90 3RF Rx Instructions: Take with 10 mg to complete 30 mg dose methocarbamol 750 mg tablet 750 mg PO QID PRN (Reason: pain, severe) Qty: 56 0RF hydromorphone 2 mg tablet 2 mg PO BEDTIME PRN (Reason: pain) Qty: 30 0RF Rx Instructions: Must last to December 03, 2023 oxycodone 10 mg tablet 10 mg PO Q8H PRN (Reason: pain) Qty: 84 0RF Rx Instructions: to augment chronic TID dosing due to shingles pain ketoconazole 2 % cream 1 applic topical BID Qty: 30 1RF sulfasalazine 500 mg tablet 1,000 mg PO BID Qty: 180 1RF meloxicam 15 mg tablet 15 mg PO DAILY Qty: 30 0RF ferrous gluconate 324 mg (37.5 mg iron) tablet 324 mg PO DAILY Qty: 90 2RF Rx Instructions: start taking daily, with food or juice potassium chloride 20 mEq tablet extended release 20 meq PO BID Qty: 10 0RF lidocaine 5 % adhesive patch,medicated 1 patch topical DAILY Qty: 30 0RF Rx Instructions: against spine T9 level for shingles pain valacyclovir 1 gram tablet 1,000 mg PO TID Qty: 30 0RF Disabled Parking Permit 1 1 % SEEINSTR Rx Instructions: Valid for 5 years amlodipine 5 mg tablet 5 mg PO BEDTIME Patient Comments: pt received dose in hospital 11/10/19 early AM admit to [facility] hydrochlorothiazide 25 mg tablet 12.5 mg PO QAM losartan 100 mg tablet 100 mg PO DAILY ibuprofen 400 mg Tablet 400 mg PO Q4HR PRN (Reason: Pain, Mild (1-3)) Qty: 60 0RF ipratropium-albuterol 0.5 mg-3 mg(2.5 mg base)/3 mL solution for nebulization 3 ml inhalation Q6H PRN (Reason: shortness of breath or wheezing) Qty: 90 0RF Referrals: Edilberto Snell, DO [Primary Care Provider] - Stand Alone Forms: Patient Portal/API
[2023-11-20 17:26] LABS: Add Manual Diff / Slide Review NO; Basophils Absolute Auto 100 /uL (0-100); Basophils Percent Auto 1.3 % (0-2); Eosinophils Absolute Auto 300 /uL (0-450); Eosinophils Percent Auto 3.5 % (2-4); Hematocrit 34.1 % (41-53); Hemoglobin 11.1 g/dL (13.5-17.5); Lymphocytes Absolute Auto 1500 /uL (1100-4500); Lymphocytes Percent Auto 15.5 % (25-40); Mean Corpuscular HGB Conc 32.7 % (30-36); Mean Corpuscular Hemoglobin 24.7 PG (26-34); Mean Corpuscular Volume 75.7 fL (80-100); Monocytes Absolute Auto 1000 /uL (0-900); Monocytes Percent Auto 9.9 % (3-14); Neutrophils Absolute Auto 6900 /uL (1500-7000); Neutrophils Percent Auto 69.8 % (50-75); Platelet Count 417 X10^3/uL (150-400); Red Cell Distribution Width 16.5 % (11.6-14.8); White Blood Cell Count 9.9 X10^3/uL (4.5-11.0)
[2023-11-20 17:27] LABS: Creatine Kinase 39 U/L (55-170)
[2023-11-20 17:28] LABS: Alanine Aminotransferase 14 IU/L (<50); Albumin 3.9 g/dL (3.5-5.0); Albumin Globulin Ratio 1.1 (1.0-2.8); Alkaline Phosphatase 75 U/L (38-126); Aspartate Aminotransferase 21 IU/L (17-59); BUN Creatinine Ratio 22.4 (6-22); Bilirubin Total 0.4 mg/dL (0.2-1.3); Blood Urea Nitrogen 13 mg/dL (9-20); Calcium 8.7 mg/dL (8.4-10.2); Carbon Dioxide 27 mmol/L (22-32); Chloride 103 mmol/L (98-107); Estimated Glomerular Filt Rate > 60 mL/min (>60); Globulin 3.7 g/dL (1.7-4.1); Glucose 97 mg/dL (80-110); HEMOLYSIS 15 (0-50); Potassium 3.6 mmol/L (3.4-5.1); Sodium 137 mmol/L (137-145); Total Protein 7.6 g/dL (6.3-8.2)
[2023-11-20 17:39] LABS: Troponin I 0.018 ng/mL (0.01-0.034)
[2023-11-20] MEDS: diphenhydrAMINE 50 MG/ML VIAL IM (17:40)
[2023-11-20] MEDS: METOCLOPRAMIDE 10 MG/2 ML INJ IM (17:40)
[2023-11-20] MEDS: KETOROLAC 30 MG/ML VIAL 15 MG IM (17:40)
[2023-11-20 19:10] LABS: Troponin I 0.018 ng/mL (0.01-0.034)
== END 2023-11-20 19:20 | disposition home or self-care (01) ==
PROVIDERS: Emergency Medicine; Emergency Provider Emergency Medicine; PCP Family Medicine
DX: M25.562 Pain in left knee (principal); R07.9 Chest pain, unspecified; R51.9 Headache, unspecified
CPT/HCPCS: 36415; 71045; 73560; 80053; 82550; 84484; 85025; 93005; 93010; 96372; 99283; 99284; J1200; J1885; J2765

== ENCOUNTER → 2023-11-21 22:28 | Outpatient (ROUT) | payer MEDICARE, OTHER, SELFPAY ==
[2022-11-15 12:10] VITALS: BMI 30.8
== END ==
PROVIDERS: PCP Family Medicine; Visit Provider Family Medicine
DX: G89.4 Chronic pain syndrome (principal); Z79.891 Long term (current) use of opiate analgesic
CPT/HCPCS: 80307

== ENCOUNTER 2023-11-27 16:35 | Emergency (ER) | payer MEDICARE, OTHER, SELFPAY ==
[2022-11-15 12:10] VITALS: BMI 30.8
[2023-11-27 16:37] VITALS: BP 151/90; PULSE 91; RESP 20; TEMP 37.2; O2SAT 98; BMI 29.6
--- NOTE | 2023-11-27 18:14 | DI.RAD.S_ITS ---
PROCEDURE: XR SHOULDER LT MIN 2V INDICATIONS: fall TECHNIQUE: 3 views of the shoulder were acquired. COMPARISON: [facility], CR, XR SHOULDER LT MIN 2V, 09/20/2023, 16:34. FINDINGS: Bones: There is prior left shoulder reverse arthroplasty with stable anatomic left shoulder alignment. No gross hardware loosening or failure. No fractures or dislocations. No suspicious bony lesions. Visualized ribs appear intact. Soft tissues: No suspicious soft tissue calcifications. IMPRESSION: No acute shoulder fracture or dislocation. Prior left shoulder reverse arthroplasty with stable anatomic shoulder alignment. No gross hardware loosening or failure. No gross soft tissue abnormalities. Dictated by: Mohit Olivares M.D. on 11/27/2023 at 19:02 Approved by: Mohit Olivares M.D. on 11/27/2023 at 19:03
[2023-11-27] MEDS: METOCLOPRAMIDE 10 MG/2 ML INJ IV (19:01)
[2023-11-27] MEDS: diphenhydrAMINE 50 MG/ML VIAL IV (19:02)
[2023-11-27] MEDS: KETOROLAC 30 MG/ML VIAL 15 MG IV (19:03)
[2023-11-27] MEDS: DEXAMETHASONE 10 MG/ML VIAL IV (19:03)
[2023-11-27 19:11] VITALS: BP 189/93; PULSE 96; RESP 22; O2SAT 97
[2023-11-27 19:12] VITALS: BP 189/93; PULSE 96; O2SAT 97
--- NOTE | 2023-11-27 19:17 | PC.NURSE ---
Pt came to the emergency dept today because was having left shoulder pain s/p fall yesterday. Pt reports that he was getting out of bed, lost his balance and fell, hitting his shoulder on his dresser. Pt also states that he has been experiencing a migraine for the past 3 days and this is the worst he has ever had. Pt reports that the migraine developed gradually, similar to how his migraines have developed in the past. Pt denies hitting his head when he fell. A&Ox4 and answers all questions appropriately.
--- NOTE | 2023-11-27 19:26 | ED.GENADULT ---
HPI - General Adult General Chief complaint: Headache Stated complaint: Migraine X 3days + GLF today Time Seen by Provider: 11/27/23 18:14 Source: patient Mode of arrival: Family Vehicle History of Present Illness HPI narrative: 78-year-old gentleman with a complex medical history can suggesting of chronic pain, multi joint arthritis, hepatitis-C, coronary artery disease, hypertension, asthma, chronic migraine and increasing cognitive decline who presents complaining of a fall yesterday where he landed on his left shoulder with increasing pain. He has had a shoulder replacement surgery. That pain has made his 3 day migraine, which he describes as his typical severe migraine that has not responded to medications at home, worse. He comes in for further evaluation. He has towel over his eyes along with sunglasses. He is attempting to be cooperative. He is nontoxic-appearing and moving all extremities. He does not complain of fever, cough, chills. He has not had abdominal pain, nausea vomiting or diarrhea. He has not noticing increasing weakness pain or paresthesias beyond his baseline Related Data Home Medications Medication Instructions Recorded Confirmed Disabled Parking Permit 1 % SEEINSTR 11/08/20 11/21/23 amlodipine 5 mg tablet 5 mg PO BEDTIME 11/08/22 11/21/23 hydrochlorothiazide 25 mg tablet 12.5 mg PO QAM 11/15/22 11/21/23 losartan 100 mg tablet 100 mg PO DAILY 11/15/22 11/21/23 Previous Rx's Medication Instructions Recorded albuterol sulfate 2.5 mg/3 mL 2.5 mg (3 mL) continuous 10/24/22 (0.083 %) solution for nebulization nebulization Q6HP PRN shortness of breath or wheezing #360 mL ibuprofen 400 mg tablet 400 mg PO Q4HR PRN Pain, Mild 11/16/22 (1-3) #60 tabs albuterol sulfate 90 mcg/actuation 1 inh inhalation Q4-6H PRN 12/27/22 aerosol inhaler shortness of breath #18 grams omeprazole 40 mg capsule,delayed 40 mg PO DAILY #90 caps 01/01/23 release lidocaine 5 % topical patch 2 patch topical DAILY #30 ea 01/08/23 ketoconazole 2 % topical cream 1 applic topical BID #30 grams 02/08/23 potassium chloride 20 mEq 20 meq PO BID #10 tabs 02/26/23 tablet,extended release ipratropium 0.5 mg-albuterol 3 mg 3 ml inhalation Q6H PRN shortness 03/19/23 (2.5 mg base)/3 mL nebulization of breath or wheezing #90 mL soln metoprolol succinate 100 mg 100 mg PO DAILY #90 tabs 07/11/23 tablet,extended release 24 hr sulfasalazine 500 mg tablet 1,000 mg (2 x 500 mg) PO BID #180 07/23/23 tabs meloxicam 15 mg tablet 15 mg PO DAILY #30 tabs 08/13/23 lidocaine 5 % topical patch 1 patch topical DAILY #30 ea 09/02/23 valacyclovir 1 gram tablet 1,000 mg PO TID #30 tabs 09/02/23 nitroglycerin 0.4 mg sublingual 0.4 mg sublingual Q5M PRN chest 10/03/23 tablet pain #20 tabs fluoxetine 10 mg capsule See Rx Instructions .Route 10/08/23 .COMPLEX #90 caps fluoxetine 20 mg capsule 20 mg PO DAILY #90 caps 10/08/23 ferrous gluconate 324 mg (37.5 mg 324 mg PO DAILY #90 tabs 10/22/23 iron) tablet hydromorphone 2 mg tablet 2 mg PO BEDTIME PRN pain #30 tabs 11/01/23 methocarbamol 750 mg tablet 750 mg PO QID PRN pain, severe #56 11/01/23 tabs oxycodone 10 mg tablet 10 mg PO Q8H PRN pain #84 tabs 11/06/23 Allergies Allergy/AdvReac Type Severity Reaction Status Date / Time cyclobenzaprine Allergy Severe Dizziness, Verified 11/27/23 16:46 [From Flexeril] I bounce off ag acetaminophen [ACETAMINOPHEN] AdvReac Unknown Can't take Verified 11/27/23 16:46 r/t Hep C; upset stomach Review of Systems Review of Systems Narrative: Pertinent positive and negative findings as per HPI Patient History Medical History Left knee pain Chronic diarrhea Eustachian tube dysfunction Seasonal allergic rhinitis Dyspepsia Anemia Tinea Abdominal wall pain in both lower quadrants Constipation Aftercare following left shoulder joint replacement surgery Preoperative clearance Left lateral epicondylitis Adhesive capsulitis Right wrist sprain Oral lesion Colles' fracture Right wrist pain Left shoulder strain Anxiety Fibromyalgia Sinus drainage Chronic ankle pain, bilateral Rheumatoid arthritis Acute exacerbation of chronic bronchitis Foraminal stenosis of lumbar region Peripheral neuropathy Pneumonia (~2018) Impotence (Unknown) Restless leg syndrome (Unknown) Arthritis (Unknown) Chronic pain syndrome (Unknown) Kidney stones (Unknown) Prostate cancer (Unknown) Skin cancer (Unknown) Hepatitis C (Unknown) Hypertension (Unknown) Migraines (Unknown) PTSD (post-traumatic stress disorder) (Unknown) Depression (Unknown) Surgical History S/P lumbar fusion History of lumbar fusion (05/10/22) History of ankle surgery 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 Social History marital status: household members: spouse lives independently: Yes occupational status: previously employed Smoking Status: Former smoker Tobacco: How many years used: 20 quit status: has quit before alcohol intake: former substance use type: former substance user and marijuana Smoking Status: Former smoker tobacco type: cigarettes alcohol intake frequency: 0-2 drinks per day Substance Use Type: does not use Exam Initial Vital Signs Initial Vital Signs: Vital Signs Temperature 99.0 F 11/27/23 16:37 Pulse Rate 91 H 11/27/23 16:37 Respiratory Rate 20 11/27/23 16:37 Blood Pressure 151/90 H 11/27/23 16:37 Pulse Oximetry 98 11/27/23 16:37 Oxygen Delivery Method Room Air 11/27/23 16:37 General: Older appearing, chronically ill, holding his left shoulder in place with sunglasses on able to speak in complete sentences HEENT: Moist mucous membranes, normal sclera with reactive pupils, Respiratory: Lungs are clear to auscultation, no wheezing no rales no rhonchi. Full and symmetrical air movement Cardiac: Regular rate and rhythm no murmurs no bruits Neurologic: Complaining of headache but otherwise Grossly neurologically intact with no obvious asymmetries or abnormalities Extremities: Left shoulder is tender to the touch around the entire shoulder. There is no bruising or acute redness. Full range of motion is limited by pain. He does have some internal and external rotation, abduction is more painful. He is neurovascularly intact distally Psych: Cooperative, appropriate insight and affect Course Orders Ordered: ED Orders 11/27/23 18:14 XR shoulder LT min 2V Stat Discontinued Medications Dexamethasone (Dexamethasone 10 Mg/Ml Vial) 10 mg IV NOW ONE Stop: 11/27/23 18:17 Last Admin: 11/27/23 19:03 Dose: 10 mg Documented By: OW Diphenhydramine HCl (Diphenhydramine 50 Mg/Ml Vial) 50 mg IV NOW ONE Stop: 11/27/23 18:17 Last Admin: 11/27/23 19:02 Dose: 50 mg Documented By: OW Ketorolac Tromethamine (Ketorolac 30 Mg/Ml Vial) 15 mg IV NOW ONE Stop: 11/27/23 18:17 Last Admin: 11/27/23 19:03 Dose: 15 mg Documented By: OW Metoclopramide HCl (Metoclopramide 10 Mg/2 Ml Inj) 10 mg IV NOW ONE Stop: 11/27/23 18:17 Last Admin: 11/27/23 19:01 Dose: 10 mg Documented By: OW Vital Signs Vital signs: Vital Signs - 8 hr 11/27/23 16:37 11/27/23 19:11 11/27/23 19:12 Temperature 99.0 F Pulse Rate 91 H 96 H 96 H Respiratory Rate 20 22 Blood Pressure 151/90 H 189/93 H Pulse Oximetry 98 97 97 Oxygen Delivery Method Room Air Room Air 11/27/23 19:12 11/27/23 19:30 11/27/23 19:30 Temperature Pulse Rate 91 H Respiratory Rate 27 H Blood Pressure 189/93 H 153/97 H Pulse Oximetry 96 Oxygen Delivery Method 11/27/23 20:00 11/27/23 20:00 Temperature Pulse Rate 89 Respiratory Rate 13 Blood Pressure 140/81 Pulse Oximetry 96 Oxygen Delivery Method Room Air Medical Decision Making Medical Records Medical records narrative: MDM Narrative Medical decision making narrative: CC: Left shoulder pain and recurrent migraine Complicating co-morbidities: Complex medical history with chronic pain, chronic opioid use, chronic migraines increasing gait instability and fall landing on his left arm yesterday Data collected from: patient Medical records reviewed: Prior medical records from ER visits well as primary care reviewed Differential considered: Chronic migraine exacerbation, stroke, intracranial mass. For shoulder pain dislocation, rotator cuff tear, proximal humeral fracture Exam documented above, pertinent findings include: Patient appears to be at his neurologic baseline, actually a bit more alert cognitively than he has been in the past. He is protecting his left arm and shoulder. Imaging studies independently reviewed: Shoulder x-ray shows replaced joint, no periprosthetic fractures, no dislocation Treatments: Toradol, dexamethasone, IV Reglan, IV Benadryl and a mg of IV Dilaudid. Procedure: Left sling placed by nursing staff. He is neurovascularly intact pre and post placement. After placed does find that the left shoulder pain is slightly more tolerable. Discussion: 78-year-old gentleman with longstanding chronic pain multiple joints. The fall that he describes was catching himself with his left arm. He did not hurt any other part of his body more hit his head. He is worried that he is broken something. Reviewed negative x-rays and help with sling. He currently has pain management in place and no additional medication recommendations were given. Regarding his migraine headache he feels that since October they have dramatically increased. He did have a normal head CT scan on September 30, 2023. He will be following up with his primary car care doctor and may benefit from neurologic consultation at this point, there is no evidence that there is infection, tumors masses or alternate explanations for his migraine that would require additional lab work or imaging today. All findings were discussed, he will follow up with his primary care doctor. He is safe for discharge Discharge Plan Departure Patient Disposition: Home Clinical Impression: Acute pain of left shoulder Migraine Qualifiers: Migraine type: unspecified Status migrainosus presence: without status migrainosus Intractability: not intractable Qualified Code(s): G43.909 - Migraine, unspecified, not intractable, without status migrainosus Fall Qualifiers: Encounter type: initial encounter Qualified Code(s): W19.XXXA - Unspecified fall, initial encounter Chronic pain Qualifiers: Chronic pain type: chronic pain syndrome Qualified Code(s): G89.4 - Chronic pain syndrome Instructions: DI for Migraine, DI for Shoulder Pain Activity Restrictions/Additional Instructions: Kip, I am sorry that you are continuing to suffer so much with all of these issues I gave you a combination of Benadryl, Reglan, Toradol and dexamethasone for your headache. Hopefully the dexamethasone will help with the inflammatory process so that you are feeling a bit better in the morning Regarding your shoulder, there are no fractures and no injuries to the shoulder prosthesis. I have given you a sling that you can use as long as it is providing comfort. If you continue to have pain you will need follow up with your primary care doctor regarding the shoulder issues. You were given mg of IV Dilaudid to help control the shoulder pain so hopefully you are able to get some sleep. Again, I suspect the dexamethasone we will help with some of the inflammatory processes so that you are not hurting quite so much tomorrow Prescriptions: No Action albuterol sulfate 2.5 mg /3 mL (0.083 %) solution for nebulization 2.5 mg Continuous Nebulization Q6HP PRN (Reason: shortness of breath or wheezing) Qty: 360 2RF albuterol sulfate 90 mcg/actuation HFA aerosol inhaler 1 inh INHALATION Q4-6H PRN (Reason: shortness of breath) Qty: 18 4RF omeprazole 40 mg capsule,delayed release(DR/EC) 40 mg PO DAILY Qty: 90 3RF Rx Instructions: take 1 capsule by mouth once daily lidocaine 5 % adhesive patch,medicated 2 patch topical DAILY Qty: 30 1RF Rx Instructions: leave on most painful area for up to 12 hrs metoprolol succinate 100 mg tablet extended release 24 hr 100 mg PO DAILY Qty: 90 1RF nitroglycerin 0.4 mg tablet, sublingual 0.4 mg sublingual Q5M PRN (Reason: chest pain) Qty: 20 1RF Rx Instructions: do not exceed 3 doses per episode fluoxetine 10 mg capsule See Rx Instructions .ROUTE .COMPLEX Qty: 90 3RF Dose Instruction: take 1 capsule by mouth once daily WITH 20MG CAP DAILY TOTAL 30 MG DAILY Rx Instructions: take 1 capsule by mouth once daily WITH 20MG CAP DAILY TOTAL 30 MG DAILY fluoxetine 20 mg capsule 20 mg PO DAILY Qty: 90 3RF Rx Instructions: Take with 10 mg to complete 30 mg dose methocarbamol 750 mg tablet 750 mg PO QID PRN (Reason: pain, severe) Qty: 56 0RF hydromorphone 2 mg tablet 2 mg PO BEDTIME PRN (Reason: pain) Qty: 30 0RF Rx Instructions: Must last to December 03, 2023 oxycodone 10 mg tablet 10 mg PO Q8H PRN (Reason: pain) Qty: 84 0RF Rx Instructions: to augment chronic TID dosing due to shingles pain ketoconazole 2 % cream 1 applic topical BID Qty: 30 1RF sulfasalazine 500 mg tablet 1,000 mg PO BID Qty: 180 1RF meloxicam 15 mg tablet 15 mg PO DAILY Qty: 30 0RF ferrous gluconate 324 mg (37.5 mg iron) tablet 324 mg PO DAILY Qty: 90 2RF Rx Instructions: start taking daily, with food or juice potassium chloride 20 mEq tablet extended release 20 meq PO BID Qty: 10 0RF lidocaine 5 % adhesive patch,medicated 1 patch topical DAILY Qty: 30 0RF Rx Instructions: against spine T9 level for shingles pain valacyclovir 1 gram tablet 1,000 mg PO TID Qty: 30 0RF Disabled Parking Permit 1 1 % SEEINSTR Rx Instructions: Valid for 5 years amlodipine 5 mg tablet 5 mg PO BEDTIME Patient Comments: pt received dose in hospital 11/10/19 early AM admit to AC hydrochlorothiazide 25 mg tablet 12.5 mg PO QAM losartan 100 mg tablet 100 mg PO DAILY ibuprofen 400 mg Tablet 400 mg PO Q4HR PRN (Reason: Pain, Mild (1-3)) Qty: 60 0RF ipratropium-albuterol 0.5 mg-3 mg(2.5 mg base)/3 mL solution for nebulization 3 ml inhalation Q6H PRN (Reason: shortness of breath or wheezing) Qty: 90 0RF Referrals: Edilberto Snell, [Primary Care Provider] - Stand Alone Forms: Patient Portal/API
[2023-11-27 19:30] VITALS: BP 153/97; PULSE 91; RESP 27; O2SAT 96
[2023-11-27 20:00] VITALS: BP 140/81; PULSE 89; RESP 13; O2SAT 96
[2023-11-27] MEDS: HYDROMORPHONE 1 MG INJ IV (20:45)
== END 2023-11-27 21:01 | disposition home or self-care (01) ==
PROVIDERS: Emergency Provider Emergency Medicine; PCP Family Medicine
DX: M25.512 Pain in left shoulder (principal); G43.909 Migraine, unspecified, not intractable, without status migrainosus; W18.30XA Fall on same level, unspecified, initial encounter; Z79.899 Other long term (current) drug therapy
CPT/HCPCS: 36415; 73030; 96374; 96375; 99284; J1100; J1170; J1200; J1885; J2765

== ENCOUNTER → 2023-12-12 15:19 | Outpatient (CLI) | payer MEDICARE, OTHER, SELFPAY ==
[2022-11-15 12:10] VITALS: BMI 30.8
[2023-12-12 16:30] LABS: Add Manual Diff / Slide Review NO; Basophils Absolute Auto 100 /uL (0-100); Basophils Percent Auto 0.8 % (0-2); Eosinophils Absolute Auto 200 /uL (0-450); Eosinophils Percent Auto 2.9 % (2-4); Hematocrit 32.2 % (41-53); Hemoglobin 10.7 g/dL (13.5-17.5); Lymphocytes Absolute Auto 1400 /uL (1100-4500); Lymphocytes Percent Auto 17.4 % (25-40); Mean Corpuscular HGB Conc 33.1 % (30-36); Mean Corpuscular Hemoglobin 24.8 PG (26-34); Mean Corpuscular Volume 74.9 fL (80-100); Monocytes Absolute Auto 1300 /uL (0-900); Monocytes Percent Auto 16.4 % (3-14); Neutrophils Absolute Auto 4800 /uL (1500-7000); Neutrophils Percent Auto 62.5 % (50-75); Platelet Count 324 X10^3/uL (150-400); Red Blood Cell Count 4.31 X10^6/uL (4.5-5.9); Red Cell Distribution Width 16.2 % (11.6-14.8); White Blood Cell Count 7.8 X10^3/uL (4.5-11.0)
[2023-12-12 17:11] LABS: Erythrocyte Sedimentation Rate 50 MM/HR (0-15)
[2023-12-12 18:17] LABS: HEMOLYSIS < 15 (0-50); Iron 45 ug/dL (49-181)
[2023-12-12 18:28] LABS: Percent Iron Saturation 17 % (20-50); Total Iron Binding Capacity 272 ug/dL (261-462); Transferrin 210 mg/dL (206-381)
[2023-12-12 18:35] LABS: Vitamin D 25 Hydroxy (D3) 16.1 ng/mL (30.0-100.0)
[2023-12-13 12:55] LABS: Ferritin 20 ng/mL (18-464)
[2023-12-17 18:08] LABS: CCP Antibodies IgG/IgA >250 units (0-19)
== END ==
PROVIDERS: PCP Family Medicine; Referring Provider Physician Assistant; Visit Provider Physician Assistant
DX: M06.9 Rheumatoid arthritis, unspecified (principal); D64.9 Anemia, unspecified; E53.8 Deficiency of other specified B group vitamins; G89.4 Chronic pain syndrome
CPT/HCPCS: 36415; 82306; 82728; 83540; 83550; 85025; 85651; 86200; 86430

== ENCOUNTER 2023-12-13 13:24 | Emergency (ER) | payer MEDICARE, OTHER, SELFPAY ==
[2022-11-15 12:10] VITALS: BMI 30.8
[2023-12-13 13:31] VITALS: BP 166/81; PULSE 76; RESP 14; TEMP 36.2; O2SAT 98; BMI 29.7
--- NOTE | 2023-12-13 14:20 | ED_ITS ---
<Statement entered by Johnathon Bradford MD - 12/13/23 18:18> I was available for consultation for this patient while they were in the ER but not consulted. My review of this note is my first interaction with this patient's chart. HPI - Headache General Chief Complaint: Headache Stated Complaint: severe migrane Time Seen by Provider: 12/13/23 13:34 Mode of arrival: Ambulatory History of Present Illness HPI Narrative: This is a 78-year-old male presenting to emergency department due to a worsening migraine over the last couple of days. History of chronic migraines. Denies any facial drooping, slurred speech, weakness. Pain is primarily affecting the right forehead. Denies any vision changes. Reports some nausea. History of chronic migraines and this feels similar for the patient. On a pain contract. Related Data Home Medications Medication Instructions Recorded Confirmed Disabled Parking Permit 1 % SEEINSTR 11/08/20 12/12/23 amlodipine 5 mg tablet 5 mg PO BEDTIME 11/08/22 12/12/23 hydrochlorothiazide 25 mg tablet 12.5 mg PO QAM 11/15/22 12/12/23 losartan 100 mg tablet 100 mg PO DAILY 11/15/22 12/12/23 Previous Rx's Medication Instructions Recorded albuterol sulfate 2.5 mg/3 mL 2.5 mg (3 mL) continuous 10/24/22 (0.083 %) solution for nebulization nebulization Q6HP PRN shortness of breath or wheezing #360 mL ibuprofen 400 mg tablet 400 mg PO Q4HR PRN Pain, Mild 11/16/22 (1-3) #60 tabs albuterol sulfate 90 mcg/actuation 1 inh inhalation Q4-6H PRN 12/27/22 aerosol inhaler shortness of breath #18 grams omeprazole 40 mg capsule,delayed 40 mg PO DAILY #90 caps 01/01/23 release lidocaine 5 % topical patch 2 patch topical DAILY #30 ea 01/08/23 ketoconazole 2 % topical cream 1 applic topical BID #30 grams 02/08/23 potassium chloride 20 mEq 20 meq PO BID #10 tabs 02/26/23 tablet,extended release ipratropium 0.5 mg-albuterol 3 mg 3 ml inhalation Q6H PRN shortness 03/19/23 (2.5 mg base)/3 mL nebulization of breath or wheezing #90 mL soln metoprolol succinate 100 mg 100 mg PO DAILY #90 tabs 07/11/23 tablet,extended release 24 hr meloxicam 15 mg tablet 15 mg PO DAILY #30 tabs 08/13/23 lidocaine 5 % topical patch 1 patch topical DAILY #30 ea 09/02/23 valacyclovir 1 gram tablet 1,000 mg PO TID #30 tabs 09/02/23 nitroglycerin 0.4 mg sublingual 0.4 mg sublingual Q5M PRN chest 10/03/23 tablet pain #20 tabs fluoxetine 10 mg capsule See Rx Instructions .Route 10/08/23 .COMPLEX #90 caps fluoxetine 20 mg capsule 20 mg PO DAILY #90 caps 10/08/23 ferrous gluconate 324 mg (37.5 mg 324 mg PO DAILY #90 tabs 10/22/23 iron) tablet methocarbamol 750 mg tablet 750 mg PO QID PRN pain, severe #56 11/01/23 tabs hydromorphone 2 mg tablet 2 mg PO BEDTIME PRN pain #30 tabs 11/28/23 oxycodone 10 mg tablet 10 mg PO Q8H PRN pain #90 tabs 11/28/23 sulfasalazine 500 mg tablet 1,000 mg (2 x 500 mg) PO BID #180 11/28/23 tabs prednisone 10 mg tablet 10 mg PO DIRECTED #65 tabs 12/12/23 ascorbic acid (vitamin C) 500 mg 500 mg PO DAILY #90 tabs 12/13/23 tablet cholecalciferol (vitamin D3) 1,250 1,250 mcg PO QWEEK #12 caps 12/13/23 mcg (50,000 unit) capsule ferrous sulfate 325 mg (65 mg 325 mg PO DAILY #90 tabs 12/13/23 iron) tablet (Iron (ferrous sulfate)) Allergies Allergy/AdvReac Type Severity Reaction Status Date / Time cyclobenzaprine Allergy Severe Dizziness, Verified 12/13/23 13:31 [From Flexeril] I bounce off ag acetaminophen [ACETAMINOPHEN] AdvReac Unknown Can't take Verified 12/13/23 13:31 r/t Hep C; upset stomach Review of Systems Review of Systems Narrative: GENERAL: Denies chills, fatigue, malaise, fever, sweats. HEENT: Reports headache, Denies sinus pain, ear pain, sore throat, difficulty swallowing, dizziness. RESPIRATORY: Denies dyspnea, cough, wheezing, hemoptysis, sputum. CARDIOVASCULAR: Denies chest pain, palpitations, orthopnea, edema, GASTROINTESTINAL: Denies nausea, vomiting, abdominal pain, diarrhea, constipation, melena. : Denies dysuria, frequency, incontinence, hematuria, urinary retention. MUSCULOSKELETAL: denies weakness, joint pain, or bony pain SKIN: Denies rash, skin lesions, or other NEUROLOGIC: Denies weakness, headache, numbness, change in speech, confusion, seizures, incoordination. PSYCHIATRIC: No concerning psychosocial issues. 12 point review of systems is negative except for those stated above Patient History Medical History Left knee pain Chronic diarrhea Eustachian tube dysfunction Seasonal allergic rhinitis Dyspepsia Anemia Tinea Abdominal wall pain in both lower quadrants Constipation Aftercare following left shoulder joint replacement surgery Preoperative clearance Left lateral epicondylitis Adhesive capsulitis Right wrist sprain Oral lesion Colles' fracture Right wrist pain Left shoulder strain Anxiety Fibromyalgia Sinus drainage Chronic ankle pain, bilateral Rheumatoid arthritis Acute exacerbation of chronic bronchitis Foraminal stenosis of lumbar region Peripheral neuropathy Pneumonia (~2018) Impotence (Unknown) Restless leg syndrome (Unknown) Arthritis (Unknown) Chronic pain syndrome (Unknown) Kidney stones (Unknown) Prostate cancer (Unknown) Skin cancer (Unknown) Hepatitis C (Unknown) Hypertension (Unknown) Migraines (Unknown) PTSD (post-traumatic stress disorder) (Unknown) Depression (Unknown) Surgical History S/P lumbar fusion History of lumbar fusion (05/10/22) History of ankle surgery 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 Social History marital status: household members: spouse lives independently: Yes occupational status: previously employed Smoking Status: Former smoker Tobacco: How many years used: 20 quit status: has quit before alcohol intake: former substance use type: former substance user and marijuana Smoking Status: Former smoker tobacco type: cigarettes alcohol intake frequency: holidays/special occasions only Substance Use Type: does not use Exam Narrative Exam Narrative: GENERAL: Well-developed patient, in mild distress. HEAD: Atraumatic. Normocephalic. EYES: Pupils equal round and reactive. Extraocular motions intact. No scleral icterus. No injection or drainage. ENT: Nose without bleeding, purulent drainage. Throat without erythema, tonsillar hypertrophy or exudate. Airway patent. NECK: Trachea midline. Non tender EXTREMITIES: No edema or joint tenderness. NEURO: AOx3. Cranial nerves 2-12 intact SKIN: No rash or erythema of visible areas Initial Vital Signs Initial Vital Signs: Vital Signs Temperature 97.1 F L 12/13/23 13:31 Pulse Rate 76 12/13/23 13:31 Respiratory Rate 14 12/13/23 13:31 Blood Pressure 166/81 H 12/13/23 13:31 Pulse Oximetry 98 12/13/23 13:31 Oxygen Delivery Method Room Air 12/13/23 13:31 Course Orders Ordered: Discontinued Medications Dexamethasone (Dexamethasone 10 Mg/Ml Vial) 10 mg IV NOW ONE Stop: 12/13/23 14:55 Last Admin: 12/13/23 15:01 Dose: Not Given Documented By: RB Dexamethasone (Dexamethasone 10 Mg/Ml Vial) 10 mg IM NOW ONE Stop: 12/13/23 15:01 Last Admin: 12/13/23 15:10 Dose: 10 mg Documented By: RB Diphenhydramine HCl (Diphenhydramine 50 Mg/Ml Vial) 25 mg IV NOW ONE Stop: 12/13/23 14:55 Last Admin: 12/13/23 15:01 Dose: Not Given Documented By: RB Diphenhydramine HCl (Diphenhydramine 50 Mg/Ml Vial) 25 mg IM NOW ONE Stop: 12/13/23 15:01 Last Admin: 12/13/23 15:10 Dose: 25 mg Documented By: RB Hydromorphone HCl (Hydromorphone 1 Mg Inj) 1 mg IM NOW ONE Stop: 12/13/23 16:29 Last Admin: 12/13/23 16:35 Dose: 1 mg Documented By: RB Sodium Chloride (Normal Saline 0.9%) 1,000 mls @ 1,000 mls/hr IV BOLUS ONE Stop: 12/13/23 15:53 Last Admin: 12/13/23 15:02 Dose: Not Given Documented By: RB Ketorolac Tromethamine (Ketorolac 30 Mg/Ml Vial) 15 mg IV NOW ONE Stop: 12/13/23 14:55 Last Admin: 12/13/23 15:01 Dose: Not Given Documented By: RB Ketorolac Tromethamine (Ketorolac 30 Mg/Ml Vial) 15 mg IM NOW ONE Stop: 12/13/23 15:01 Last Admin: 12/13/23 15:11 Dose: 15 mg Documented By: RB Metoclopramide HCl (Metoclopramide 10 Mg/2 Ml Inj) 10 mg IM NOW ONE Stop: 12/13/23 16:04 Last Admin: 12/13/23 16:12 Dose: 10 mg Documented By: RB Ondansetron HCl (Ondansetron 4 Mg Odt) 4 mg SL NOW ONE Stop: 12/13/23 15:04 Last Admin: 12/13/23 15:11 Dose: 4 mg Documented By: RB Vital Signs Vital signs: Vital Signs - 8 hr 12/13/23 13:31 12/13/23 16:43 Temperature 97.1 F L 98.1 F Pulse Rate 76 65 Respiratory Rate 14 18 Blood Pressure 166/81 H 165/82 H Pulse Oximetry 98 96 Oxygen Delivery Method Room Air Room Air MDM - Headache MDM Narrative Medical decision making narrative: ED course: This is a 78-year-old male presents emergency department due to an acute migraine. History of chronic migraines. Complete migraine cocktail was given without any significant relief. Unable to obtain IV due to patient's veins. Strongly recommended patient follow up with the primary care provider for long-term pain management but he states he had not be able to until next week. Reassuring neuro exam and no concerns for any kind of intracranial hemorrhage or ischemic stroke. Patient began yelling as well as crying saying his head hurt although patient has a history of this. Strongly recommend he follow up with his primary care provider but he began to pull up the note from his last visit to this emergency department strongly requesting mg of Dilaudid as he would received in the past. This was given to him. Patient's pain was reported to be better and he was discharged. CC: Headache Complicating co-morbidities: As below Data collected from: Previous notes Medical records reviewed: Patient was a complex medical history of chronic pain, multi joint arthritis, hepatitis-C, coronary artery disease, hypertension, asthma, chronic migraines, cognitive decline. Was last seen approximately 2 weeks ago due to a severe migraine that has not improved with medications at home. On a pain contract. Patient was normal head CT approximately 3 months ago. Was instructed to follow up with the primary care. Differential considered, but not limited to: Migraine, headache, hemorrhagic stroke, ischemic stroke Exam documented above, pertinent findings include: Reassuring neuro exam Lab Test results independently reviewed as above. Pertinent findings: None obtained Imaging studies independently reviewed: None obtained Scores Used: None MIPS Elements: None Consultations: None Treatments: IM Toradol, Compazine, Decadron, Benadryl, Dilaudid Re-evaluations: Patient is reports pain feeling much better Discussion: Discussed plan with the patient was comfortable with the plan Diagnosis: Headache Disposition: see below, along with detailed discharge instructions that have been reviewed with patient as well as indications for ED re-evaluation and additional outpatient follow up Discharge Plan Departure Patient Disposition: Home Clinical Impression: Headache Activity Restrictions/Additional Instructions: Thank you for coming to the [facility] Emergency Department today. I am glad that we are at help with your pain. As we discussed I strongly recommend he follow up with the primary care provider for increased pain management help as we will be unable to provide continued doses of narcotic pain medication. Please return to the emergency department if you develop any slurred speech, facial drooping, weakness, or any other concerning signs or symptoms. I hope you feel better soon. Please follow up with your primary care provider within a week if your symptoms continue. If you do not have a primary care provider please contact the [facility] Resource line at [phone]. They will ask some questions about your medical history and help you get set up with a provider in the community. Prescriptions: No Action albuterol sulfate 2.5 mg /3 mL (0.083 %) solution for nebulization 2.5 mg Continuous Nebulization Q6HP PRN (Reason: shortness of breath or wheezing) Qty: 360 2RF albuterol sulfate 90 mcg/actuation HFA aerosol inhaler 1 inh INHALATION Q4-6H PRN (Reason: shortness of breath) Qty: 18 4RF omeprazole 40 mg capsule,delayed release(DR/EC) 40 mg PO DAILY Qty: 90 3RF Rx Instructions: take 1 capsule by mouth once daily lidocaine 5 % adhesive patch,medicated 2 patch topical DAILY Qty: 30 1RF Rx Instructions: leave on most painful area for up to 12 hrs metoprolol succinate 100 mg tablet extended release 24 hr 100 mg PO DAILY Qty: 90 1RF nitroglycerin 0.4 mg tablet, sublingual 0.4 mg sublingual Q5M PRN (Reason: chest pain) Qty: 20 1RF Rx Instructions: do not exceed 3 doses per episode fluoxetine 10 mg capsule See Rx Instructions .ROUTE .COMPLEX Qty: 90 3RF Dose Instruction: take 1 capsule by mouth once daily WITH 20MG CAP DAILY TOTAL 30 MG DAILY Rx Instructions: take 1 capsule by mouth once daily WITH 20MG CAP DAILY TOTAL 30 MG DAILY fluoxetine 20 mg capsule 20 mg PO DAILY Qty: 90 3RF Rx Instructions: Take with 10 mg to complete 30 mg dose methocarbamol 750 mg tablet 750 mg PO QID PRN (Reason: pain, severe) Qty: 56 0RF oxycodone 10 mg tablet 10 mg PO Q8H PRN (Reason: pain) Qty: 90 0RF Rx Instructions: MAY REFILL ON DEC 02, 2023 sulfasalazine 500 mg tablet 1,000 mg PO BID Qty: 180 1RF hydromorphone 2 mg tablet 2 mg PO BEDTIME PRN (Reason: pain) Qty: 30 0RF Rx Instructions: May refill on Dec 02, 2023 cholecalciferol (vitamin D3) 1,250 mcg (50,000 unit) capsule 1,250 mcg PO QWEEK Qty: 12 0RF ferrous sulfate [Iron (ferrous sulfate)] 325 mg (65 mg iron) tablet 325 mg PO DAILY Qty: 90 0RF Rx Instructions: Take with Vitamin C ascorbic acid (vitamin C) 500 mg tablet 500 mg PO DAILY Qty: 90 0RF Rx Instructions: Take with iron prednisone 10 mg tablet 10 mg PO DIRECTED Qty: 65 0RF Rx Instructions: Start with 60 mg daily divided bid and reduce by 10mg every 3 days ketoconazole 2 % cream 1 applic topical BID Qty: 30 1RF meloxicam 15 mg tablet 15 mg PO DAILY Qty: 30 0RF ferrous gluconate 324 mg (37.5 mg iron) tablet 324 mg PO DAILY Qty: 90 2RF Rx Instructions: start taking daily, with food or juice potassium chloride 20 mEq tablet extended release 20 meq PO BID Qty: 10 0RF lidocaine 5 % adhesive patch,medicated 1 patch topical DAILY Qty: 30 0RF Rx Instructions: against spine T9 level for shingles pain valacyclovir 1 gram tablet 1,000 mg PO TID Qty: 30 0RF Disabled Parking Permit 1 1 % SEEINSTR Rx Instructions: Valid for 5 years amlodipine 5 mg tablet 5 mg PO BEDTIME Patient Comments: pt received dose in hospital 11/10/19 early AM admit to AC hydrochlorothiazide 25 mg tablet 12.5 mg PO QAM losartan 100 mg tablet 100 mg PO DAILY ibuprofen 400 mg Tablet 400 mg PO Q4HR PRN (Reason: Pain, Mild (1-3)) Qty: 60 0RF ipratropium-albuterol 0.5 mg-3 mg(2.5 mg base)/3 mL solution for nebulization 3 ml inhalation Q6H PRN (Reason: shortness of breath or wheezing) Qty: 90 0RF Referrals: Edilberto Snell, [Primary Care Provider] - Stand Alone Forms: Patient Portal/API
[2023-12-13] MEDS: diphenhydrAMINE 50 MG/ML VIAL 25 MG IM (15:10)
[2023-12-13] MEDS: DEXAMETHASONE 10 MG/ML VIAL IM (15:10)
[2023-12-13] MEDS: KETOROLAC 30 MG/ML VIAL 15 MG IM (15:11)
[2023-12-13] MEDS: ONDANSETRON 4 MG ODT SL (15:11)
[2023-12-13] MEDS: METOCLOPRAMIDE 10 MG/2 ML INJ IM (16:12)
[2023-12-13] MEDS: HYDROMORPHONE 1 MG INJ IM (16:35)
[2023-12-13 16:43] VITALS: BP 165/82; PULSE 65; RESP 18; TEMP 36.7; O2SAT 96
== END 2023-12-13 17:29 | disposition home or self-care (01) ==
PROVIDERS: Emergency Provider Physician Assistant Medical; PCP Family Medicine
DX: R51.9 Headache, unspecified (principal); Z79.899 Other long term (current) drug therapy
CPT/HCPCS: 96372; 99283; J1100; J1170; J1200; J1885; J2765

== ENCOUNTER 2023-12-16 16:25 | Emergency (ER) | payer MEDICARE, OTHER, SELFPAY ==
[2022-11-15 12:10] VITALS: BMI 30.8
[2023-12-16 17:12] VITALS: BP 181/86; PULSE 66; RESP 16; TEMP 37.2; O2SAT 97; BMI 29.6
[2023-12-16] MEDS: KETOROLAC 30 MG/ML VIAL IM (20:31)
[2023-12-16] MEDS: ONDANSETRON 4 MG ODT SL (20:31)
[2023-12-16 21:40] VITALS: PULSE 63; O2SAT 99
[2023-12-16 22:00] VITALS: PULSE 62; O2SAT 98
[2023-12-16 22:30] VITALS: PULSE 62; O2SAT 98
[2023-12-16] MEDS: HYDROMORPHONE 1 MG INJ 2 MG IM (22:36)
[2023-12-16 23:00] VITALS: PULSE 63; O2SAT 97
[2023-12-16 23:30] VITALS: PULSE 63; O2SAT 97
[2023-12-17] VITALS: PULSE 60; O2SAT 97
[2023-12-17 00:18] VITALS: BP 198/91; PULSE 60; O2SAT 97
[2023-12-17 00:30] VITALS: BP 185/90; PULSE 65; O2SAT 96
--- NOTE | 2023-12-17 00:59 | ED_ITS ---
HPI - Headache General Chief Complaint: Headache Stated Complaint: Migraine Time Seen by Provider: 12/16/23 19:18 Mode of arrival: Wheelchair History of Present Illness HPI Narrative: 78-year-old gentleman with a complex medical history, recurrent intrusive migrai yokasta, chronic pain syndrome, opioid habituation who presents with complaints of a migraine. He states that the pain is intolerable has been increasing over the last day or so. Is requesting help with additional management. He does not describe fevers, cough, chills. He notes that he has been under increasing stress recently not complaining of chest pain, dyspnea or any acute neurologic changes Related Data Home Medications Medication Instructions Recorded Confirmed Disabled Parking Permit 1 % SEEINSTR 11/08/20 12/12/23 amlodipine 5 mg tablet 5 mg PO BEDTIME 11/08/22 12/12/23 hydrochlorothiazide 25 mg tablet 12.5 mg PO QAM 11/15/22 12/12/23 losartan 100 mg tablet 100 mg PO DAILY 11/15/22 12/12/23 Previous Rx's Medication Instructions Recorded albuterol sulfate 2.5 mg/3 mL 2.5 mg (3 mL) continuous 10/24/22 (0.083 %) solution for nebulization nebulization Q6HP PRN shortness of breath or wheezing #360 mL ibuprofen 400 mg tablet 400 mg PO Q4HR PRN Pain, Mild 11/16/22 (1-3) #60 tabs albuterol sulfate 90 mcg/actuation 1 inh inhalation Q4-6H PRN 12/27/22 aerosol inhaler shortness of breath #18 grams omeprazole 40 mg capsule,delayed 40 mg PO DAILY #90 caps 01/01/23 release lidocaine 5 % topical patch 2 patch topical DAILY #30 ea 01/08/23 ketoconazole 2 % topical cream 1 applic topical BID #30 grams 02/08/23 potassium chloride 20 mEq 20 meq PO BID #10 tabs 02/26/23 tablet,extended release ipratropium 0.5 mg-albuterol 3 mg 3 ml inhalation Q6H PRN shortness 03/19/23 (2.5 mg base)/3 mL nebulization of breath or wheezing #90 mL soln metoprolol succinate 100 mg 100 mg PO DAILY #90 tabs 07/11/23 tablet,extended release 24 hr meloxicam 15 mg tablet 15 mg PO DAILY #30 tabs 10/31/23 lidocaine 5 % topical patch 1 patch topical DAILY #30 ea 09/02/23 valacyclovir 1 gram tablet 1,000 mg PO TID #30 tabs 09/02/23 nitroglycerin 0.4 mg sublingual 0.4 mg sublingual Q5M PRN chest 10/03/23 tablet pain #20 tabs fluoxetine 10 mg capsule See Rx Instructions .Route 10/08/23 .COMPLEX #90 caps fluoxetine 20 mg capsule 20 mg PO DAILY #90 caps 10/08/23 ferrous gluconate 324 mg (37.5 mg 324 mg PO DAILY #90 tabs 10/22/23 iron) tablet methocarbamol 750 mg tablet 750 mg PO QID PRN pain, severe #56 11/01/23 tabs hydromorphone 2 mg tablet 2 mg PO BEDTIME PRN pain #30 tabs 11/28/23 oxycodone 10 mg tablet 10 mg PO Q8H PRN pain #90 tabs 11/28/23 sulfasalazine 500 mg tablet 1,000 mg (2 x 500 mg) PO BID #180 11/28/23 tabs prednisone 10 mg tablet 10 mg PO DIRECTED #65 tabs 12/12/23 ascorbic acid (vitamin C) 500 mg 500 mg PO DAILY #90 tabs 12/13/23 tablet cholecalciferol (vitamin D3) 1,250 1,250 mcg PO QWEEK #12 caps 12/13/23 mcg (50,000 unit) capsule ferrous sulfate 325 mg (65 mg 325 mg PO DAILY #90 tabs 12/13/23 iron) tablet (Iron (ferrous sulfate)) Allergies Allergy/AdvReac Type Severity Reaction Status Date / Time cyclobenzaprine Allergy Severe Dizziness, Verified 12/13/23 13:31 [From Flexeril] I bounce off ag acetaminophen [ACETAMINOPHEN] AdvReac Unknown Can't take Verified 12/13/23 13:31 r/t Hep C; upset stomach Review of Systems Review of Systems Narrative: Pertinent positive and negative findings as per HPI Patient History Medical History Left knee pain Chronic diarrhea Eustachian tube dysfunction Seasonal allergic rhinitis Dyspepsia Anemia Tinea Abdominal wall pain in both lower quadrants Constipation Aftercare following left shoulder joint replacement surgery Preoperative clearance Left lateral epicondylitis Adhesive capsulitis Right wrist sprain Oral lesion Colles' fracture Right wrist pain Left shoulder strain Anxiety Fibromyalgia Sinus drainage Chronic ankle pain, bilateral Rheumatoid arthritis Acute exacerbation of chronic bronchitis Foraminal stenosis of lumbar region Peripheral neuropathy Pneumonia (~2018) Impotence (Unknown) Restless leg syndrome (Unknown) Arthritis (Unknown) Chronic pain syndrome (Unknown) Kidney stones (Unknown) Prostate cancer (Unknown) Skin cancer (Unknown) Hepatitis C (Unknown) Hypertension (Unknown) Migraines (Unknown) PTSD (post-traumatic stress disorder) (Unknown) Depression (Unknown) Surgical History S/P lumbar fusion History of lumbar fusion (05/10/22) History of ankle surgery 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 Social History marital status: household members: spouse lives independently: Yes occupational status: previously employed Smoking Status: Former smoker Tobacco: How many years used: 20 quit status: has quit before alcohol intake: former substance use type: former substance user and marijuana Smoking Status: Former smoker tobacco type: cigarettes alcohol intake frequency: holidays/special occasions only Substance Use Type: does not use Exam Initial Vital Signs Initial Vital Signs: Vital Signs Temperature 98.9 F 12/16/23 17:12 Pulse Rate 66 12/16/23 17:12 Respiratory Rate 16 12/16/23 17:12 Blood Pressure 181/86 H 12/16/23 17:12 Pulse Oximetry 97 12/16/23 17:12 Oxygen Delivery Method Room Air 12/16/23 17:12 General: Alert, covering his eyes but pupils are equal and appropriate. Respiratory: Able to speak in full sentences, no obvious respiratory distress Skin: No obvious rashes, warm and dry Neurologic: Grossly intact no obvious asymmetries or abnormalities Psych: appropriate insight and affect, cooperative Course Orders Ordered: Discontinued Medications Hydromorphone HCl (Hydromorphone 1 Mg Inj) 2 mg IM NOW ONE Stop: 12/16/23 22:19 Last Admin: 12/16/23 22:36 Dose: 2 mg Documented By: JESUS Ketorolac Tromethamine (Ketorolac 30 Mg/Ml Vial) 30 mg IM NOW ONE Stop: 12/16/23 19:19 Last Admin: 12/16/23 20:31 Dose: 30 mg Documented By: JESUS Ondansetron HCl (Ondansetron 4 Mg Odt) 4 mg SL NOW ONE Stop: 12/16/23 20:27 Last Admin: 12/16/23 20:31 Dose: 4 mg Documented By: JESUS Vital Signs Vital signs: Vital Signs - 8 hr 12/16/23 17:12 12/16/23 21:40 12/16/23 22:00 Temperature 98.9 F Pulse Rate 66 63 62 Respiratory Rate 16 Blood Pressure 181/86 H Pulse Oximetry 97 99 98 Oxygen Delivery Method Room Air 12/16/23 22:30 12/16/23 23:00 12/16/23 23:30 Temperature Pulse Rate 62 63 63 Respiratory Rate Blood Pressure Pulse Oximetry 98 97 97 Oxygen Delivery Method 12/17/23 00:00 12/17/23 00:18 12/17/23 00:18 Temperature Pulse Rate 60 60 Respiratory Rate Blood Pressure 198/91 H Pulse Oximetry 97 97 Oxygen Delivery Method MDM - Headache MDM Narrative Medical decision making narrative: CC: Recurrent migraine Complicating co-morbidities: History chronic migraine, chronic pain syndrome, arthritis, depression, anxiety, increased psychosocial stressors, opioid habituation Data collected from: patient Medical records reviewed: Medical records from previous ER visits and primary care notes reviewed. Differential considered: Migraine, stroke, meningitis, viral infection Exam documented above, pertinent findings include: On exam he appears to be at his baseline with photophobia and complaining of acute headache. No other acute neurologic findings or changes Treatments: He is given IM Toradol 15 mg, ODT Zofran and 2 mg of IM hydromorphone Re-evaluations: Patient states that the pain is improved, he is still photophobic. He would like additional pain medications. Explained to him that after the 2 mg of IM hydromorphone, that pain effect would continue and additional narcotics were not indicated. Discussion: 78-year-old gentleman with chronic pain, chronic headaches who continues to have worsening pain, headaches, stress and is overall miserable. At this point there is no sign of infection, acute stroke. This does appear to be his chronic migraine/pain. Symptoms have improved enough with the medications given that he is requesting discharge home and feels that he can go to sleep. At this point I believe that is safe and appropriate Discharge Plan Departure Patient Disposition: Home Clinical Impression: Migraine Qualifiers: Migraine type: unspecified Status migrainosus presence: without status migrainosus Intractability: not intractable Qualified Code(s): G43.909 - Migraine, unspecified, not intractable, without status migrainosus Instructions: DI for Migraine Activity Restrictions/Additional Instructions: I am sorry that you are continuing to suffer with this migraine. You were given a shot of Toradol, 2 mg of Dilaudid as a shot and Zofran orally. There was no sign of stroke, infection or alternate explanation that would require further workup, lab work imaging studies or hospitalization today. I hope that you are able to get some sleep this evening Prescriptions: No Action albuterol sulfate 2.5 mg /3 mL (0.083 %) solution for nebulization 2.5 mg Continuous Nebulization Q6HP PRN (Reason: shortness of breath or wheezing) Qty: 360 2RF albuterol sulfate 90 mcg/actuation HFA aerosol inhaler 1 inh INHALATION Q4-6H PRN (Reason: shortness of breath) Qty: 18 4RF omeprazole 40 mg capsule,delayed release(DR/EC) 40 mg PO DAILY Qty: 90 3RF Rx Instructions: take 1 capsule by mouth once daily lidocaine 5 % adhesive patch,medicated 2 patch topical DAILY Qty: 30 1RF Rx Instructions: leave on most painful area for up to 12 hrs metoprolol succinate 100 mg tablet extended release 24 hr 100 mg PO DAILY Qty: 90 1RF nitroglycerin 0.4 mg tablet, sublingual 0.4 mg sublingual Q5M PRN (Reason: chest pain) Qty: 20 1RF Rx Instructions: do not exceed 3 doses per episode fluoxetine 10 mg capsule See Rx Instructions .ROUTE .COMPLEX Qty: 90 3RF Dose Instruction: take 1 capsule by mouth once daily WITH 20MG CAP DAILY TOTAL 30 MG DAILY Rx Instructions: take 1 capsule by mouth once daily WITH 20MG CAP DAILY TOTAL 30 MG DAILY fluoxetine 20 mg capsule 20 mg PO DAILY Qty: 90 3RF Rx Instructions: Take with 10 mg to complete 30 mg dose methocarbamol 750 mg tablet 750 mg PO QID PRN (Reason: pain, severe) Qty: 56 0RF oxycodone 10 mg tablet 10 mg PO Q8H PRN (Reason: pain) Qty: 90 0RF Rx Instructions: MAY REFILL ON DEC 02, 2023 sulfasalazine 500 mg tablet 1,000 mg PO BID Qty: 180 1RF hydromorphone 2 mg tablet 2 mg PO BEDTIME PRN (Reason: pain) Qty: 30 0RF Rx Instructions: May refill on Dec 02, 2023 cholecalciferol (vitamin D3) 1,250 mcg (50,000 unit) capsule 1,250 mcg PO QWEEK Qty: 12 0RF ferrous sulfate [Iron (ferrous sulfate)] 325 mg (65 mg iron) tablet 325 mg PO DAILY Qty: 90 0RF Rx Instructions: Take with Vitamin C ascorbic acid (vitamin C) 500 mg tablet 500 mg PO DAILY Qty: 90 0RF Rx Instructions: Take with iron prednisone 10 mg tablet 10 mg PO DIRECTED Qty: 65 0RF Rx Instructions: Start with 60 mg daily divided bid and reduce by 10mg every 3 days ketoconazole 2 % cream 1 applic topical BID Qty: 30 1RF meloxicam 15 mg tablet 15 mg PO DAILY Qty: 30 0RF ferrous gluconate 324 mg (37.5 mg iron) tablet 324 mg PO DAILY Qty: 90 2RF Rx Instructions: start taking daily, with food or juice potassium chloride 20 mEq tablet extended release 20 meq PO BID Qty: 10 0RF lidocaine 5 % adhesive patch,medicated 1 patch topical DAILY Qty: 30 0RF Rx Instructions: against spine T9 level for shingles pain valacyclovir 1 gram tablet 1,000 mg PO TID Qty: 30 0RF Disabled Parking Permit 1 1 % SEEINSTR Rx Instructions: Valid for 5 years amlodipine 5 mg tablet 5 mg PO BEDTIME Patient Comments: pt received dose in hospital 11/10/19 early AM admit to hydrochlorothiazide 25 mg tablet 12.5 mg PO QAM losartan 100 mg tablet 100 mg PO DAILY ibuprofen 400 mg Tablet 400 mg PO Q4HR PRN (Reason: Pain, Mild (1-3)) Qty: 60 0RF ipratropium-albuterol 0.5 mg-3 mg(2.5 mg base)/3 mL solution for nebulization 3 ml inhalation Q6H PRN (Reason: shortness of breath or wheezing) Qty: 90 0RF Referrals: Edilberto Snell DO [Primary Care Provider] - Stand Alone Forms: Patient Portal/API
[2023-12-17 01:00] VITALS: BP 209/96; PULSE 61; O2SAT 95
== END 2023-12-17 01:20 | disposition home or self-care (01) ==
PROVIDERS: Emergency Provider Emergency Medicine; PCP Family Medicine
DX: G43.909 Migraine, unspecified, not intractable, without status migrainosus (principal); Z79.899 Other long term (current) drug therapy
CPT/HCPCS: 36415; 96372; 99283; 99284; J1170; J1885

== ENCOUNTER 2023-12-30 17:48 | Emergency (ER) | payer MEDICARE, OTHER, SELFPAY ==
[2022-11-15 12:10] VITALS: BMI 30.8
[2023-12-30 17:58] VITALS: BP 140/67; PULSE 75; RESP 18; TEMP 36.6; O2SAT 98; BMI 29.6
--- NOTE | 2023-12-30 18:02 | DI.RAD.S_ITS ---
PROCEDURE: XR RIBS BI 3V INDICATIONS: fell off deck TECHNIQUE: 2 views each of the left and right ribs were acquired along with a single view chest. COMPARISON: None. FINDINGS: Surgical changes and devices: Bilateral shoulder arthroplasties. Lumbar spine fixation hardware. Right upper quadrant cholecystectomy clips. Bones and chest wall: No acute displaced rib fracture. No suspicious bony lesions. Overlying soft tissues appear unremarkable. Lungs and pleura: The visualized lung appears clear. No pleural effusions or pneumothorax are visible. IMPRESSION: No acute displaced rib fracture. No pneumothorax. Approved by: Krishna Chavez M.D. on 12/30/2023 at 20:32
--- NOTE | 2023-12-30 18:02 | DI.RAD.S_ITS ---
PROCEDURE: XR SHOULDER LT MIN 2V INDICATIONS: fell off deck TECHNIQUE: 3 views of the shoulder were acquired. COMPARISON: [facility], CR, XR SHOULDER LT MIN 2V, 11/27/2023, 18:36. [facility], CR, XR SHOULDER LT MIN 2V, 09/20/2023, 16:34. FINDINGS: Bones: Postsurgical changes again seen from a reversed total shoulder arthroplasty. Hardware components are in stable positions. No acute osseous fracture is seen. Questionable remote healed clavicular shaft fracture. Soft tissues: No suspicious soft tissue calcifications. IMPRESSION: 1. No acute osseous abnormality. If there is continued clinical concern or persistent symptoms, repeat radiographs or cross-sectional imaging (e.g. CT, MRI) may be helpful for further evaluation. 2. Postsurgical changes from reversed total shoulder arthroplasty. Approved by: Krishna Chavez M.D. on 12/30/2023 at 20:29
--- NOTE | 2023-12-30 18:02 | DI.RAD.S_ITS ---
PROCEDURE: XR WRIST LT MIN 3V INDICATIONS: fell off deck TECHNIQUE: 4 views of the wrist were acquired. COMPARISON: [facility], CR, XR WRIST LT MIN 3V, 10/30/2023, 17:02. [facility], CR, XR WRIST RT MIN 3V, 10/01/2023, 13:09. FINDINGS: Bones: No acute fractures or dislocations. No suspicious bony lesions. Severe joint space narrowing at the 1st metacarpophalangeal joint and triscaphe joint. Soft tissues: No suspicious soft tissue calcifications. IMPRESSION: No acute osseous abnormality. If there is continued clinical concern or persistent symptoms, repeat radiographs or cross-sectional imaging (e.g. CT, MRI) may be helpful for further evaluation. Approved by: Krishna Chavez M.D. on 12/30/2023 at 20:33
--- NOTE | 2023-12-30 18:03 | DI.RAD.S_ITS ---
PROCEDURE: XR KNEE LT 3V INDICATIONS: fall off deck TECHNIQUE: 3 views of the knee were acquired. COMPARISON: [facility], CR, XR KNEE LT 1TO2V, 11/20/2023, 17:20. [facility], CR, XR KNEE LT 3V, 11/15/2023, 15:53. FINDINGS: Bones: No acute fractures or dislocations. No suspicious bony lesions. Moderate joint space narrowing of the medial femorotibial compartment. Soft tissues: Small joint effusion. No suspicious soft tissue calcifications. IMPRESSION: No acute osseous abnormality. If there is continued clinical concern or persistent symptoms, repeat radiographs or cross-sectional imaging (e.g. CT, MRI) may be helpful for further evaluation. Approved by: Krishna Chavez M.D. on 12/30/2023 at 20:34
--- NOTE | 2023-12-30 21:32 | ED.FALL ---
HPI - Fall General Chief Complaint: Fall Stated Complaint: fall off deck, whole body hurts Time Seen by Provider: 12/30/23 21:20 Source: patient Mode of arrival: Wheelchair History of Present Illness HPI Narrative: Patient is a 78-year-old male who is here for evaluation of injuries that he sustained when he states he was walking out of the back door of his house. He states he tripped and fell and landed on his left side due could his left shoulder in his left hip. He then states he rolled off the deck onto the ground. Did not hit his head. Is currently having left shoulder pain left hip pain left wrist pain some soreness to his left elbow. No loss of consciousness. Is not on anticoagulation. Related Data Home Medications Medication Instructions Recorded Confirmed Disabled Parking Permit 1 % SEEINSTR 11/08/20 12/17/23 amlodipine 5 mg tablet 5 mg PO BEDTIME 11/08/22 12/17/23 hydrochlorothiazide 25 mg tablet 12.5 mg PO QAM 11/15/22 12/17/23 losartan 100 mg tablet 100 mg PO DAILY 11/15/22 12/17/23 Previous Rx's Medication Instructions Recorded albuterol sulfate 2.5 mg/3 mL 2.5 mg (3 mL) continuous 10/24/22 (0.083 %) solution for nebulization nebulization Q6HP PRN shortness of breath or wheezing #360 mL ibuprofen 400 mg tablet 400 mg PO Q4HR PRN Pain, Mild 11/16/22 (1-3) #60 tabs albuterol sulfate 90 mcg/actuation 1 inh inhalation Q4-6H PRN 12/27/22 aerosol inhaler shortness of breath #18 grams omeprazole 40 mg capsule,delayed 40 mg PO DAILY #90 caps 01/01/23 release lidocaine 5 % topical patch 2 patch topical DAILY #30 ea 01/08/23 ketoconazole 2 % topical cream 1 applic topical BID #30 grams 02/08/23 potassium chloride 20 mEq 20 meq PO BID #10 tabs 02/26/23 tablet,extended release ipratropium 0.5 mg-albuterol 3 mg 3 ml inhalation Q6H PRN shortness 03/19/23 (2.5 mg base)/3 mL nebulization of breath or wheezing #90 mL soln metoprolol succinate 100 mg 100 mg PO DAILY #90 tabs 07/11/23 tablet,extended release 24 hr meloxicam 15 mg tablet 15 mg PO DAILY #30 tabs 08/13/23 lidocaine 5 % topical patch 1 patch topical DAILY #30 ea 09/02/23 valacyclovir 1 gram tablet 1,000 mg PO TID #30 tabs 09/02/23 nitroglycerin 0.4 mg sublingual 0.4 mg sublingual Q5M PRN chest 10/03/23 tablet pain #20 tabs fluoxetine 10 mg capsule See Rx Instructions .Route 10/08/23 .COMPLEX #90 caps fluoxetine 20 mg capsule 20 mg PO DAILY #90 caps 10/08/23 ferrous gluconate 324 mg (37.5 mg 324 mg PO DAILY #90 tabs 10/22/23 iron) tablet methocarbamol 750 mg tablet 750 mg PO QID PRN pain, severe #56 11/01/23 tabs sulfasalazine 500 mg tablet 1,000 mg (2 x 500 mg) PO BID #180 11/28/23 tabs prednisone 10 mg tablet 10 mg PO DIRECTED #65 tabs 12/12/23 ascorbic acid (vitamin C) 500 mg 500 mg PO DAILY #90 tabs 12/13/23 tablet cholecalciferol (vitamin D3) 1,250 1,250 mcg PO QWEEK #12 caps 12/13/23 mcg (50,000 unit) capsule ferrous sulfate 325 mg (65 mg 325 mg PO DAILY #90 tabs 12/13/23 iron) tablet (Iron (ferrous sulfate)) nortriptyline 10 mg capsule 10 mg PO BEDTIME #30 caps 12/17/23 ondansetron 8 mg disintegrating 8 mg PO Q8H PRN nausea and 12/17/23 tablet vomiting #30 tabs prochlorperazine 25 mg rectal 25 mg OK BID PRN nausea and 12/17/23 suppository (Compazine) vomiting #12 ea zolmitriptan 5 mg tablet (Zomig) See Rx Instructions PO .COMPLEX 12/17/23 #10 tabs hydromorphone 2 mg tablet 2 mg PO BEDTIME PRN pain #30 tabs 12/30/23 oxycodone 10 mg tablet 10 mg PO Q8H PRN pain #90 tabs 12/30/23 Allergies Allergy/AdvReac Type Severity Reaction Status Date / Time cyclobenzaprine Allergy Severe Dizziness, Verified 12/17/23 11:36 [From Flexeril] I bounce off ag acetaminophen [ACETAMINOPHEN] AdvReac Unknown Can't take Verified 12/17/23 11:36 r/t Hep C; upset stomach Review of Systems Constitutional Constitutional: Reports system reviewed and no additional complaints, except as documented Cardiovascular Cardiovascular: Reports system reviewed and no additional complaints, except as documented Respiratory Respiratory: Reports system reviewed and no additional complaints, except as documented Gastrointestinal Gastrointestinal: Reports system reviewed and no additional complaints, except as documented Musculoskeletal Musculoskeletal: Reports system reviewed and no additional complaints, except as documented Integumentary/Breasts Skin/Breast: Reports system reviewed and no additional complaints, except as documented Neurologic Neurologic: Reports system reviewed and no additional complaints, except as documented Hematologic/Lymphatic On Anticoagulants: No Patient History Medical History Left knee pain Chronic diarrhea Eustachian tube dysfunction Seasonal allergic rhinitis Dyspepsia Anemia Tinea Abdominal wall pain in both lower quadrants Constipation Aftercare following left shoulder joint replacement surgery Preoperative clearance Left lateral epicondylitis Adhesive capsulitis Right wrist sprain Oral lesion Colles' fracture Right wrist pain Left shoulder strain Anxiety Fibromyalgia Sinus drainage Chronic ankle pain, bilateral Rheumatoid arthritis Acute exacerbation of chronic bronchitis Foraminal stenosis of lumbar region Peripheral neuropathy Pneumonia (~2018) Impotence (Unknown) Restless leg syndrome (Unknown) Arthritis (Unknown) Chronic pain syndrome (Unknown) Kidney stones (Unknown) Prostate cancer (Unknown) Skin cancer (Unknown) Hepatitis C (Unknown) Hypertension (Unknown) Migraines (Unknown) PTSD (post-traumatic stress disorder) (Unknown) Depression (Unknown) Surgical History S/P lumbar fusion History of lumbar fusion (05/10/22) History of ankle surgery 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 Social History (Reviewed 12/31/23 @ 03:15 by IDRIS Raymond marital status: household members: spouse lives independently: Yes occupational status: previously employed Smoking Status: Former smoker Tobacco: How many years used: 20 quit status: has quit before alcohol intake: former substance use type: former substance user and marijuana Smoking Status: Former smoker tobacco type: cigarettes alcohol intake frequency: holidays/special occasions only Substance Use Type: does not use Exam Initial Vital Signs Initial Vital Signs: Vital Signs Temperature 97.9 F 12/30/23 17:58 Pulse Rate 75 12/30/23 17:58 Respiratory Rate 18 12/30/23 17:58 Blood Pressure 140/67 12/30/23 17:58 Pulse Oximetry 98 12/30/23 17:58 Oxygen Delivery Method Room Air 12/30/23 17:58 Const General: cooperative and comfortable HENMT Head: normal to inspection and normocephalic Resp Effort & Inspection: normal respiratory effort Cardio Rate: regular rate Skin General: no rashes or lesions noted Neuro General: patient alert and patient awake Extrem General: normal to inspection Other: Patient does have discomfort to palpation of his left shoulder in the lateral aspect of the left hip. No gross deformities. Range of motion limited because of discomfort. Course Orders Ordered: Discontinued Medications Tramadol HCl (Tramadol 50 Mg Tablet) 50 mg PO NOW ONE Stop: 12/30/23 21:34 Last Admin: 12/30/23 21:40 Dose: 50 mg Documented By: SAVAGE Vital Signs Vital signs: Vital Signs - 8 hr 12/30/23 17:58 Temperature 97.9 F Pulse Rate 75 Respiratory Rate 18 Blood Pressure 140/67 Pulse Oximetry 98 Oxygen Delivery Method Room Air MDM - Fall Imaging Data rib x-ray: Radiologist's Impression: PROCEDURE: XR RIBS BI 3V INDICATIONS: fell off deck TECHNIQUE: 2 views each of the left and right ribs were acquired along with a single view chest. COMPARISON: None. FINDINGS: Surgical changes and devices: Bilateral shoulder arthroplasties. Lumbar spine fixation hardware. Right upper quadrant cholecystectomy clips. Bones and chest wall: No acute displaced rib fracture. No suspicious bony lesions. Overlying soft tissues appear unremarkable. Lungs and pleura: The visualized lung appears clear. No pleural effusions or pneumothorax are visible. IMPRESSION: No acute displaced rib fracture. No pneumothorax. Extremity x-ray #1: Radiologist's Impression: PROCEDURE: XR SHOULDER LT MIN 2V INDICATIONS: fell off deck TECHNIQUE: 3 views of the shoulder were acquired. COMPARISON: [facility], CR, XR SHOULDER LT MIN 2V, 11/27/2023, 18:36. [facility], CR, XR SHOULDER LT MIN 2V, 09/20/2023, 16:34. FINDINGS: Bones: Postsurgical changes again seen from a reversed total shoulder arthroplasty. Hardware components are in stable positions. No acute osseous fracture is seen. Questionable remote healed clavicular shaft fracture. Soft tissues: No suspicious soft tissue calcifications. IMPRESSION: 1. No acute osseous abnormality. If there is continued clinical concern or persistent symptoms, repeat radiographs or cross-sectional imaging (e.g. CT, MRI) may be helpful for further evaluation. 2. Postsurgical changes from reversed total shoulder arthroplasty. Extremity x-ray #2: Radiologist's Impression: PROCEDURE: XR WRIST LT MIN 3V INDICATIONS: fell off deck TECHNIQUE: 4 views of the wrist were acquired. COMPARISON: [facility], , XR WRIST LT MIN 3V, 10/30/2023, 17:02. [facility], CR, XR WRIST RT MIN 3V, 10/01/2023, 13:09. FINDINGS: Bones: No acute fractures or dislocations. No suspicious bony lesions. Severe joint space narrowing at the 1st metacarpophalangeal joint and triscaphe joint. Soft tissues: No suspicious soft tissue calcifications. IMPRESSION: No acute osseous abnormality. If there is continued clinical concern or persistent symptoms, repeat radiographs or cross-sectional imaging (e.g. CT, MRI) may be helpful for further evaluation. Extremity x-ray #3: Radiologist's Impression: PROCEDURE: XR KNEE LT 3V INDICATIONS: fall off deck TECHNIQUE: 3 views of the knee were acquired. COMPARISON: [facility], CR, XR KNEE LT 1TO2V, 11/20/2023, 17:20. [facility], CR, XR KNEE LT 3V, 11/15/2023, 15:53. FINDINGS: Bones: No acute fractures or dislocations. No suspicious bony lesions. Moderate joint space narrowing of the medial femorotibial compartment. Soft tissues: Small joint effusion. No suspicious soft tissue calcifications. IMPRESSION: No acute osseous abnormality. If there is continued clinical concern or persistent symptoms, repeat radiographs or cross-sectional imaging (e.g. CT, MRI) may be helpful for further evaluation. MDM Narrative Medical decision making narrative: This was a mechanical fall. X-ray show no acute pathology. Patient does receive chronic pain medications from his primary care doctor. He stated that he is out of those medications and can not get his refill until tomorrow. He was given 1 Ultram here in the ER and was told that he needed to fill the prescription provided by his primary doctor and take it as directed. No further workup required here in the emergency department. Discharge Plan Departure Patient Disposition: Home Clinical Impression: Left shoulder pain, Knee pain, left Instructions: How To Perform RICE (Rest, Ice, Compress, Elevate) Activity Restrictions/Additional Instructions: Continue to take all of your medications as directed. You will need to fill your pain medications prescribed by your primary doctor when the pharmacy opens tomorrow. Return to the emergency department for new symptoms. Prescriptions: No Action albuterol sulfate 2.5 mg /3 mL (0.083 %) solution for nebulization 2.5 mg Continuous Nebulization Q6HP PRN (Reason: shortness of breath or wheezing) Qty: 360 2RF albuterol sulfate 90 mcg/actuation HFA aerosol inhaler 1 inh INHALATION Q4-6H PRN (Reason: shortness of breath) Qty: 18 4RF omeprazole 40 mg capsule,delayed release(DR/EC) 40 mg PO DAILY Qty: 90 3RF Rx Instructions: take 1 capsule by mouth once daily lidocaine 5 % adhesive patch,medicated 2 patch topical DAILY Qty: 30 1RF Rx Instructions: leave on most painful area for up to 12 hrs metoprolol succinate 100 mg tablet extended release 24 hr 100 mg PO DAILY Qty: 90 1RF nitroglycerin 0.4 mg tablet, sublingual 0.4 mg sublingual Q5M PRN (Reason: chest pain) Qty: 20 1RF Rx Instructions: do not exceed 3 doses per episode fluoxetine 10 mg capsule See Rx Instructions .ROUTE .COMPLEX Qty: 90 3RF Dose Instruction: take 1 capsule by mouth once daily WITH 20MG CAP DAILY TOTAL 30 MG DAILY Rx Instructions: take 1 capsule by mouth once daily WITH 20MG CAP DAILY TOTAL 30 MG DAILY fluoxetine 20 mg capsule 20 mg PO DAILY Qty: 90 3RF Rx Instructions: Take with 10 mg to complete 30 mg dose methocarbamol 750 mg tablet 750 mg PO QID PRN (Reason: pain, severe) Qty: 56 0RF sulfasalazine 500 mg tablet 1,000 mg PO BID Qty: 180 1RF cholecalciferol (vitamin D3) 1,250 mcg (50,000 unit) capsule 1,250 mcg PO QWEEK Qty: 12 0RF ferrous sulfate [Iron (ferrous sulfate)] 325 mg (65 mg iron) tablet 325 mg PO DAILY Qty: 90 0RF Rx Instructions: Take with Vitamin C ascorbic acid (vitamin C) 500 mg tablet 500 mg PO DAILY Qty: 90 0RF Rx Instructions: Take with iron hydromorphone 2 mg tablet 2 mg PO BEDTIME PRN (Reason: pain) Qty: 30 0RF Rx Instructions: May refill on Dec 02, 2023 oxycodone 10 mg tablet 10 mg PO Q8H PRN (Reason: pain) Qty: 90 0RF Rx Instructions: MAY REFILL ON DEC 02, 2023 prednisone 10 mg tablet 10 mg PO DIRECTED Qty: 65 0RF Rx Instructions: Start with 60 mg daily divided bid and reduce by 10mg every 3 days ketoconazole 2 % cream 1 applic topical BID Qty: 30 1RF meloxicam 15 mg tablet 15 mg PO DAILY Qty: 30 0RF ferrous gluconate 324 mg (37.5 mg iron) tablet 324 mg PO DAILY Qty: 90 2RF Rx Instructions: start taking daily, with food or juice prochlorperazine [Compazine] 25 mg suppository 25 mg OK BID PRN (Reason: nausea and vomiting) Qty: 12 1RF nortriptyline 10 mg capsule 10 mg PO BEDTIME Qty: 30 1RF ondansetron 8 mg tablet,disintegrating 8 mg PO Q8H PRN (Reason: nausea and vomiting) Qty: 30 1RF zolmitriptan [Zomig] 5 mg tablet See Rx Instructions PO .COMPLEX Qty: 10 1RF Rx Instructions: take 1 tab at onset of headache; if no relief, may repeat 1 tab after at least 2 hrs; max = 2 tabs/24 hrs PO potassium chloride 20 mEq tablet extended release 20 meq PO BID Qty: 10 0RF lidocaine 5 % adhesive patch,medicated 1 patch topical DAILY Qty: 30 0RF Rx Instructions: against spine T9 level for shingles pain valacyclovir 1 gram tablet 1,000 mg PO TID Qty: 30 0RF Disabled Parking Permit 1 1 % SEEINSTR Rx Instructions: Valid for 5 years amlodipine 5 mg tablet 5 mg PO BEDTIME Patient Comments: pt received dose in hospital 11/10/19 early AM admit to AC hydrochlorothiazide 25 mg tablet 12.5 mg PO QAM losartan 100 mg tablet 100 mg PO DAILY ibuprofen 400 mg Tablet 400 mg PO Q4HR PRN (Reason: Pain, Mild (1-3)) Qty: 60 0RF ipratropium-albuterol 0.5 mg-3 mg(2.5 mg base)/3 mL solution for nebulization 3 ml inhalation Q6H PRN (Reason: shortness of breath or wheezing) Qty: 90 0RF Referrals: Edilberto Snell DO [Primary Care Provider] - Stand Alone Forms: Patient Portal/API
[2023-12-30] MEDS: TRAMADOL 50 MG TABLET PO (21:40)
== END 2023-12-30 21:44 | disposition home or self-care (01) ==
PROVIDERS: Emergency Provider Emergency Medicine; PCP Family Medicine
DX: M25.512 Pain in left shoulder (principal); M25.562 Pain in left knee; M25.552 Pain in left hip; M25.532 Pain in left wrist; R07.81 Pleurodynia; W01.0XXA Fall on same level from slipping, tripping and stumbling without subsequent striking against object, initial encounter; Z79.899 Other long term (current) drug therapy
CPT/HCPCS: 71110; 73030; 73110; 73562; 99283

== ENCOUNTER 2024-01-10 17:44 | Emergency (ER) | payer MEDICARE, OTHER, SELFPAY ==
[2022-11-15 12:10] VITALS: BMI 30.8
[2024-01-10 17:57] VITALS: BP 162/80; PULSE 79; RESP 18; TEMP 37.4; O2SAT 98; BMI 26.3
--- NOTE | 2024-01-10 18:04 | DI.RAD.S_ITS ---
PROCEDURE: XR SHOULDER LT MIN 2V INDICATIONS: fall TECHNIQUE: 3 views of the shoulder were acquired. COMPARISON: [facility], CR, XR SHOULDER LT MIN 2V, 12/30/2023, 18:04. [facility], CR, XR SHOULDER LT MIN 2V, 11/27/2023, 18:36. FINDINGS: Bones: No fractures or dislocations. Stable appearance of left shoulder arthroplasty. The hardware appears intact without surrounding fracture or lucency. No suspicious bony lesions. Visualized ribs appear intact. Soft tissues: No suspicious soft tissue calcifications. IMPRESSION: Stable appearance of left shoulder arthroplasty without evidence of interval complication. No acute osseous abnormalities. Dictated by: Hebert San M.D. on 01/10/2024 at 18:56 Approved by: Hebert San M.D. on 01/10/2024 at 18:57
--- NOTE | 2024-01-10 18:04 | DI.RAD.S_ITS ---
PROCEDURE: XR KNEE LT 3V INDICATIONS: fall yesterday on left side TECHNIQUE: 3 views of the knee were acquired. COMPARISON: [facility], CR, XR KNEE LT 3V, 12/30/2023, 18:04. [facility], CR, XR KNEE LT 1TO2V, 11/20/2023, 17:20. FINDINGS: Bones: No fractures or dislocations. No suspicious bony lesions. Redemonstration of degenerative changes of the knee. Soft tissues: Small joint effusion. No suspicious soft tissue calcifications. IMPRESSION: No acute osseous abnormality. If pain persists with conservative management, consider repeat x-ray in 10-14 days or cross-sectional imaging. Dictated by: Hebert San M.D. on 01/10/2024 at 18:58 Approved by: Hebert San M.D. on 01/10/2024 at 18:58
--- NOTE | 2024-01-10 19:41 | ED_ITS ---
HPI - Fall General Chief Complaint: Fall Stated Complaint: fall, shoulder and back pain Time Seen by Provider: 01/10/24 19:29 Source: patient Mode of arrival: Ambulatory History of Present Illness HPI Narrative: Patient is a 78-year-old male. Here in the emergency department for evaluation of injuries that he sustained when he states that his left knee gave out on him and he fell held his back door onto his deck. Landed on his left side. Injured his left shoulder in his left knee. No other injuries from the event. He states that his pain medication prescribed by his primary doctor ran out yesterday. No neck pain. Related Data Home Medications Medication Instructions Recorded Confirmed Disabled Parking Permit 1 % SEEINSTR 11/08/20 12/17/23 amlodipine 5 mg tablet 5 mg PO BEDTIME 11/08/22 12/17/23 hydrochlorothiazide 25 mg tablet 12.5 mg PO QAM 11/15/22 12/17/23 losartan 100 mg tablet 100 mg PO DAILY 11/15/22 12/17/23 Previous Rx's Medication Instructions Recorded albuterol sulfate 2.5 mg/3 mL 2.5 mg (3 mL) continuous 10/24/22 (0.083 %) solution for nebulization nebulization Q6HP PRN shortness of breath or wheezing #360 mL ibuprofen 400 mg tablet 400 mg PO Q4HR PRN Pain, Mild 11/16/22 (1-3) #60 tabs albuterol sulfate 90 mcg/actuation 1 inh inhalation Q4-6H PRN 12/27/22 aerosol inhaler shortness of breath #18 grams omeprazole 40 mg capsule,delayed 40 mg PO DAILY #90 caps 01/01/23 release lidocaine 5 % topical patch 2 patch topical DAILY #30 ea 01/08/23 ketoconazole 2 % topical cream 1 applic topical BID #30 grams 02/08/23 potassium chloride 20 mEq 20 meq PO BID #10 tabs 02/26/23 tablet,extended release ipratropium 0.5 mg-albuterol 3 mg 3 ml inhalation Q6H PRN shortness 03/19/23 (2.5 mg base)/3 mL nebulization of breath or wheezing #90 mL soln metoprolol succinate 100 mg 100 mg PO DAILY #90 tabs 07/11/23 tablet,extended release 24 hr meloxicam 15 mg tablet 15 mg PO DAILY #30 tabs 10/31/23 lidocaine 5 % topical patch 1 patch topical DAILY #30 ea 09/02/23 valacyclovir 1 gram tablet 1,000 mg PO TID #30 tabs 09/02/23 nitroglycerin 0.4 mg sublingual 0.4 mg sublingual Q5M PRN chest 10/03/23 tablet pain #20 tabs fluoxetine 10 mg capsule See Rx Instructions .Route 10/08/23 .COMPLEX #90 caps fluoxetine 20 mg capsule 20 mg PO DAILY #90 caps 10/08/23 ferrous gluconate 324 mg (37.5 mg 324 mg PO DAILY #90 tabs 10/22/23 iron) tablet methocarbamol 750 mg tablet 750 mg PO QID PRN pain, severe #56 11/01/23 tabs sulfasalazine 500 mg tablet 1,000 mg (2 x 500 mg) PO BID #180 11/28/23 tabs prednisone 10 mg tablet 10 mg PO DIRECTED #65 tabs 12/12/23 ascorbic acid (vitamin C) 500 mg 500 mg PO DAILY #90 tabs 12/13/23 tablet cholecalciferol (vitamin D3) 1,250 1,250 mcg PO QWEEK #12 caps 12/13/23 mcg (50,000 unit) capsule ferrous sulfate 325 mg (65 mg 325 mg PO DAILY #90 tabs 12/13/23 iron) tablet (Iron (ferrous sulfate)) nortriptyline 10 mg capsule 10 mg PO BEDTIME #30 caps 12/17/23 ondansetron 8 mg disintegrating 8 mg PO Q8H PRN nausea and 12/17/23 tablet vomiting #30 tabs prochlorperazine 25 mg rectal 25 mg NM BID PRN nausea and 12/17/23 suppository (Compazine) vomiting #12 ea zolmitriptan 5 mg tablet (Zomig) See Rx Instructions PO .COMPLEX 12/17/23 #10 tabs hydromorphone 2 mg tablet 2 mg PO BEDTIME PRN pain #30 tabs 12/30/23 oxycodone 10 mg tablet 10 mg PO Q8H PRN pain #90 tabs 12/30/23 Allergies Allergy/AdvReac Type Severity Reaction Status Date / Time cyclobenzaprine Allergy Severe Dizziness, Verified 12/17/23 11:36 [From Flexeril] I bounce off ag acetaminophen [ACETAMINOPHEN] AdvReac Unknown Can't take Verified 12/17/23 11:36 r/t Hep C; upset stomach Review of Systems Constitutional Constitutional: Reports system reviewed and no additional complaints, except as documented Musculoskeletal Musculoskeletal: Reports system reviewed and no additional complaints, except as documented Integumentary/Breasts Skin/Breast: Reports system reviewed and no additional complaints, except as documented Neurologic Neurologic: Reports system reviewed and no additional complaints, except as documented Patient History Medical History Left knee pain Chronic diarrhea Eustachian tube dysfunction Seasonal allergic rhinitis Dyspepsia Anemia Tinea Abdominal wall pain in both lower quadrants Constipation Aftercare following left shoulder joint replacement surgery Preoperative clearance Left lateral epicondylitis Adhesive capsulitis Right wrist sprain Oral lesion Colles' fracture Right wrist pain Left shoulder strain Anxiety Fibromyalgia Sinus drainage Chronic ankle pain, bilateral Rheumatoid arthritis Acute exacerbation of chronic bronchitis Foraminal stenosis of lumbar region Peripheral neuropathy Pneumonia (~2017) Impotence (Unknown) Restless leg syndrome (Unknown) Arthritis (Unknown) Chronic pain syndrome (Unknown) Kidney stones (Unknown) Prostate cancer (Unknown) Skin cancer (Unknown) Hepatitis C (Unknown) Hypertension (Unknown) Migraines (Unknown) PTSD (post-traumatic stress disorder) (Unknown) Depression (Unknown) Surgical History S/P lumbar fusion History of lumbar fusion (05/10/22) History of ankle surgery 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 Social History marital status: household members: spouse lives independently: Yes occupational status: previously employed Smoking Status: Former smoker Tobacco: How many years used: 20 quit status: has quit before alcohol intake: former substance use type: former substance user and marijuana Smoking Status: Former smoker tobacco type: cigarettes alcohol intake frequency: holidays/special occasions only Substance Use Type: does not use Exam Initial Vital Signs Initial Vital Signs: Vital Signs Temperature 99.3 F 01/10/24 17:57 Pulse Rate 79 01/10/24 17:57 Respiratory Rate 18 01/10/24 17:57 Blood Pressure 162/80 H 01/10/24 17:57 Pulse Oximetry 98 01/10/24 17:57 Oxygen Delivery Method Room Air 01/10/24 17:57 Neuro General: patient alert and patient awake Extrem Other: Potentially a small effusion. Otherwise unremarkable left knee exam. Ligaments intact. Discomfort with movement of the left shoulder. He was comfort with palpation throughout the left shoulder. Course Orders Ordered: ED Orders 01/10/24 18:04 XR knee LT 3V Stat XR shoulder LT min 2V Stat Discontinued Medications Tramadol HCl (Tramadol 50 Mg Tablet) 50 mg PO NOW ONE Stop: 01/10/24 19:43 Last Admin: 01/10/24 19:46 Dose: 50 mg Documented By: NBA Vital Signs Vital signs: Vital Signs - 8 hr 01/10/24 17:57 01/10/24 19:56 Temperature 99.3 F Pulse Rate 79 71 Respiratory Rate 18 18 Blood Pressure 162/80 H 195/95 H Pulse Oximetry 98 98 Oxygen Delivery Method Room Air MDM - Fall Imaging Data Extremity x-ray #1: Radiologist's Impression: PROCEDURE: XR KNEE LT 3V INDICATIONS: fall yesterday on left side TECHNIQUE: 3 views of the knee were acquired. COMPARISON: [facility] , XR KNEE LT 3V, 12/30/2023, 18:04. [facility] , XR KNEE LT 1TO2V, 11/20/2023, 17:20. FINDINGS: Bones: No fractures or dislocations. No suspicious bony lesions. Redemonstration of degenerative changes of the knee. Soft tissues: Small joint effusion. No suspicious soft tissue calcifications. IMPRESSION: No acute osseous abnormality. If pain persists with conservative management, consider repeat x-ray in 10-14 days or cross-sectional imaging. Extremity x-ray #2: Radiologist's Impression: PROCEDURE: XR SHOULDER LT MIN 2V INDICATIONS: fall TECHNIQUE: 3 views of the shoulder were acquired. COMPARISON: [facility], , XR SHOULDER LT MIN 2V, 12/30/2023, 18:04. [facility], , XR SHOULDER LT MIN 2V, 11/27/2023, 18:36. FINDINGS: Bones: No fractures or dislocations. Stable appearance of left shoulder arthroplasty. The hardware appears intact without surrounding fracture or lucency. No suspicious bony lesions. Visualized ribs appear intact. Soft tissues: No suspicious soft tissue calcifications. IMPRESSION: Stable appearance of left shoulder arthroplasty without evidence of interval complication. No acute osseous abnormalities. MDM Narrative Medical decision making narrative: Patient has been seen here in the emergency department multiple times for relatively the same stated complaint when he falls onto his back deck. It always seems to be on Saturday evenings and he also states that his pain medications of just run out. His x-ray show no signs of fractures. He was given 1 dose of tramadol here in the ER and was instructed that he was going to have to talk with his primary doctor about refilling any of his pain medic ations. No further workup required during this visit. Discharge Plan Departure Patient Disposition: Home Clinical Impression: Left shoulder pain, Knee pain, left Instructions: How To Perform RICE (Rest, Ice, Compress, Elevate) Activity Restrictions/Additional Instructions: Continue to take all of your medications as directed. There were no fractures noted on the x-rays today. You are going to need to talk with your primary care doctor about a refill of your pain medication. Return to the emergency department for new symptoms. Prescriptions: No Action albuterol sulfate 2.5 mg /3 mL (0.083 %) solution for nebulization 2.5 mg Continuous Nebulization Q6HP PRN (Reason: shortness of breath or wheezing) Qty: 360 2RF albuterol sulfate 90 mcg/actuation HFA aerosol inhaler 1 inh INHALATION Q4-6H PRN (Reason: shortness of breath) Qty: 18 4RF omeprazole 40 mg capsule,delayed release(DR/EC) 40 mg PO DAILY Qty: 90 3RF Rx Instructions: take 1 capsule by mouth once daily lidocaine 5 % adhesive patch,medicated 2 patch topical DAILY Qty: 30 1RF Rx Instructions: leave on most painful area for up to 12 hrs metoprolol succinate 100 mg tablet extended release 24 hr 100 mg PO DAILY Qty: 90 1RF nitroglycerin 0.4 mg tablet, sublingual 0.4 mg sublingual Q5M PRN (Reason: chest pain) Qty: 20 1RF Rx Instructions: do not exceed 3 doses per episode fluoxetine 10 mg capsule See Rx Instructions .ROUTE .COMPLEX Qty: 90 3RF Dose Instruction: take 1 capsule by mouth once daily WITH 20MG CAP DAILY TOTAL 30 MG DAILY Rx Instructions: take 1 capsule by mouth once daily WITH 20MG CAP DAILY TOTAL 30 MG DAILY fluoxetine 20 mg capsule 20 mg PO DAILY Qty: 90 3RF Rx Instructions: Take with 10 mg to complete 30 mg dose methocarbamol 750 mg tablet 750 mg PO QID PRN (Reason: pain, severe) Qty: 56 0RF sulfasalazine 500 mg tablet 1,000 mg PO BID Qty: 180 1RF cholecalciferol (vitamin D3) 1,250 mcg (50,000 unit) capsule 1,250 mcg PO QWEEK Qty: 12 0RF ferrous sulfate [Iron (ferrous sulfate)] 325 mg (65 mg iron) tablet 325 mg PO DAILY Qty: 90 0RF Rx Instructions: Take with Vitamin C ascorbic acid (vitamin C) 500 mg tablet 500 mg PO DAILY Qty: 90 0RF Rx Instructions: Take with iron hydromorphone 2 mg tablet 2 mg PO BEDTIME PRN (Reason: pain) Qty: 30 0RF Rx Instructions: May refill on Dec 02, 2023 oxycodone 10 mg tablet 10 mg PO Q8H PRN (Reason: pain) Qty: 90 0RF Rx Instructions: MAY REFILL ON DEC 02, 2023 prednisone 10 mg tablet 10 mg PO DIRECTED Qty: 65 0RF Rx Instructions: Start with 60 mg daily divided bid and reduce by 10mg every 3 days ketoconazole 2 % cream 1 applic topical BID Qty: 30 1RF meloxicam 15 mg tablet 15 mg PO DAILY Qty: 30 0RF ferrous gluconate 324 mg (37.5 mg iron) tablet 324 mg PO DAILY Qty: 90 2RF Rx Instructions: start taking daily, with food or juice prochlorperazine [Compazine] 25 mg suppository 25 mg NM BID PRN (Reason: nausea and vomiting) Qty: 12 1RF nortriptyline 10 mg capsule 10 mg PO BEDTIME Qty: 30 1RF ondansetron 8 mg tablet,disintegrating 8 mg PO Q8H PRN (Reason: nausea and vomiting) Qty: 30 1RF zolmitriptan [Zomig] 5 mg tablet See Rx Instructions PO .COMPLEX Qty: 10 1RF Rx Instructions: take 1 tab at onset of headache; if no relief, may repeat 1 tab after at least 2 hrs; max = 2 tabs/24 hrs PO potassium chloride 20 mEq tablet extended release 20 meq PO BID Qty: 10 0RF lidocaine 5 % adhesive patch,medicated 1 patch topical DAILY Qty: 30 0RF Rx Instructions: against spine T9 level for shingles pain valacyclovir 1 gram tablet 1,000 mg PO TID Qty: 30 0RF Disabled Parking Permit 1 1 % SEEINSTR Rx Instructions: Valid for 5 years amlodipine 5 mg tablet 5 mg PO BEDTIME Patient Comments: pt received dose in hospital 11/10/19 early AM admit to AC hydrochlorothiazide 25 mg tablet 12.5 mg PO QAM losartan 100 mg tablet 100 mg PO DAILY ibuprofen 400 mg Tablet 400 mg PO Q4HR PRN (Reason: Pain, Mild (1-3)) Qty: 60 0RF ipratropium-albuterol 0.5 mg-3 mg(2.5 mg base)/3 mL solution for nebulization 3 ml inhalation Q6H PRN (Reason: shortness of breath or wheezing) Qty: 90 0RF Referrals: Edilberto Snell, [Primary Care Provider] - Stand Alone Forms: Patient Portal/API
[2024-01-10] MEDS: TRAMADOL 50 MG TABLET PO (19:46)
[2024-01-10 19:56] VITALS: BP 195/95; PULSE 71; RESP 18; O2SAT 98
== END 2024-01-10 19:59 | disposition home or self-care (01) ==
PROVIDERS: Emergency Provider Emergency Medicine; PCP Family Medicine
DX: M25.562 Pain in left knee (principal); M25.512 Pain in left shoulder; Z79.899 Other long term (current) drug therapy; W18.30XA Fall on same level, unspecified, initial encounter
CPT/HCPCS: 73030; 73562; 99283

== ENCOUNTER 2024-01-18 18:02 | Emergency (ER) | payer MEDICARE, OTHER, SELFPAY ==
[2022-11-15 12:10] VITALS: BMI 30.8
[2024-01-18 18:06] VITALS: BP 154/96; PULSE 84; RESP 16; TEMP 36.6; O2SAT 98; BMI 29.4
--- NOTE | 2024-01-18 18:10 | DI.RAD.S_ITS ---
PROCEDURE: XR WRIST LT MIN 3V INDICATIONS: FOOSH TECHNIQUE: 3 views of the wrist were acquired. COMPARISON: [facility], , XR WRIST LT MIN 3V, 12/30/2023, 18:04. FINDINGS: Bones: No fractures or dislocations. No suspicious bony lesions. Mild degenerative changes Soft tissues: No suspicious soft tissue calcifications. IMPRESSION: Mild degenerative changes. No fracture. Osteopenia Approved by: Mario Henry M.D. on 01/18/2024 at 17:53
--- NOTE | 2024-01-18 18:10 | DI.RAD.S_ITS ---
PROCEDURE: XR WRIST RT MIN 3V INDICATIONS: FOOSH TECHNIQUE: 4 views of the wrist were acquired. COMPARISON: [facility], CR, XR WRIST LT MIN 3V, 12/30/2023, 18:04. FINDINGS: Bones: No fractures or dislocations. No suspicious bony lesions. Generalized decreased osseous mineralization noted. Old ununited ulnar styloid fracture. Degenerative radiocarpal and intercarpal changes Soft tissues: No suspicious soft tissue calcifications. IMPRESSION: Degenerative changes without fracture or foreign body. Osteopenia Approved by: Mario Henry M.D. on 01/18/2024 at 17:55
--- NOTE | 2024-01-18 18:14 | ED.FALL ---
HPI - Fall General Chief Complaint: Fall Stated Complaint: GLF, wrist, shoulder hand pain, no blood thinners Time Seen by Provider: 01/18/24 18:07 Source: patient Mode of arrival: Wheelchair History of Present Illness HPI Narrative: 78 with history of chronic pain on chronic narcotics, depression, hypertension, COPD with asthma, migraines presents for diffuse joint pain after reportedly falling at home. Numerous, numerous visits in our ER for same. Patient was seen on 01/14/2024 at the walk-in clinic for similar story. He told them that he was out of his chronically prescribed pain medications 1 week prior to a refill and left when he was told that they would not refill his pain medication. Patient states his left knee gave out and he landed on his wrists. He reports pain in all of his joints particularly his wrists and left knee. Denies hitting his head, denies loss of consciousness, denies use of blood thinners. Related Data Home Medications Medication Instructions Recorded Confirmed Disabled Parking Permit 1 % SEEINSTR 11/08/20 01/14/24 amlodipine 5 mg tablet 5 mg PO BEDTIME 11/08/22 01/14/24 hydrochlorothiazide 25 mg tablet 12.5 mg PO QAM 11/15/22 01/14/24 losartan 100 mg tablet 100 mg PO DAILY 11/15/22 01/14/24 Previous Rx's Medication Instructions Recorded albuterol sulfate 2.5 mg/3 mL 2.5 mg (3 mL) continuous 10/24/22 (0.083 %) solution for nebulization nebulization Q6HP PRN shortness of breath or wheezing #360 mL ibuprofen 400 mg tablet 400 mg PO Q4HR PRN Pain, Mild 11/16/22 (1-3) #60 tabs albuterol sulfate 90 mcg/actuation 1 inh inhalation Q4-6H PRN 12/27/22 aerosol inhaler shortness of breath #18 grams omeprazole 40 mg capsule,delayed 40 mg PO DAILY #90 caps 01/01/23 release lidocaine 5 % topical patch 2 patch topical DAILY #30 ea 01/08/23 ketoconazole 2 % topical cream 1 applic topical BID #30 grams 02/08/23 potassium chloride 20 mEq 20 meq PO BID #10 tabs 02/26/23 tablet,extended release ipratropium 0.5 mg-albuterol 3 mg 3 ml inhalation Q6H PRN shortness 03/19/23 (2.5 mg base)/3 mL nebulization of breath or wheezing #90 mL soln metoprolol succinate 100 mg 100 mg PO DAILY #90 tabs 07/11/23 tablet,extended release 24 hr meloxicam 15 mg tablet 15 mg PO DAILY #30 tabs 08/13/23 lidocaine 5 % topical patch 1 patch topical DAILY #30 ea 09/02/23 valacyclovir 1 gram tablet 1,000 mg PO TID #30 tabs 09/02/23 nitroglycerin 0.4 mg sublingual 0.4 mg sublingual Q5M PRN chest 10/03/23 tablet pain #20 tabs fluoxetine 10 mg capsule See Rx Instructions .Route 10/08/23 .COMPLEX #90 caps fluoxetine 20 mg capsule 20 mg PO DAILY #90 caps 10/08/23 ferrous gluconate 324 mg (37.5 mg 324 mg PO DAILY #90 tabs 10/22/23 iron) tablet methocarbamol 750 mg tablet 750 mg PO QID PRN pain, severe #56 11/01/23 tabs sulfasalazine 500 mg tablet 1,000 mg (2 x 500 mg) PO BID #180 11/28/23 tabs prednisone 10 mg tablet 10 mg PO DIRECTED #65 tabs 12/12/23 ascorbic acid (vitamin C) 500 mg 500 mg PO DAILY #90 tabs 12/13/23 tablet cholecalciferol (vitamin D3) 1,250 1,250 mcg PO QWEEK #12 caps 12/13/23 mcg (50,000 unit) capsule ferrous sulfate 325 mg (65 mg 325 mg PO DAILY #90 tabs 12/13/23 iron) tablet (Iron (ferrous sulfate)) nortriptyline 10 mg capsule 10 mg PO BEDTIME #30 caps 12/17/23 ondansetron 8 mg disintegrating 8 mg PO Q8H PRN nausea and 12/17/23 tablet vomiting #30 tabs prochlorperazine 25 mg rectal 25 mg NM BID PRN nausea and 12/17/23 suppository (Compazine) vomiting #12 ea zolmitriptan 5 mg tablet (Zomig) See Rx Instructions PO .COMPLEX 12/17/23 #10 tabs hydromorphone 2 mg tablet 2 mg PO BEDTIME PRN pain #30 tabs 12/30/23 oxycodone 10 mg tablet 10 mg PO Q8H PRN pain #90 tabs 12/30/23 Allergies Allergy/AdvReac Type Severity Reaction Status Date / Time cyclobenzaprine Allergy Severe Dizziness, Verified 01/18/24 18:06 [From Flexeril] I bounce off ag acetaminophen [ACETAMINOPHEN] AdvReac Unknown Can't take Verified 01/18/24 18:06 r/t Hep C; upset stomach Review of Systems Review of Systems Narrative: See HPI Patient History Medical History Left knee pain Chronic diarrhea Eustachian tube dysfunction Seasonal allergic rhinitis Dyspepsia Anemia Tinea Abdominal wall pain in both lower quadrants Constipation Aftercare following left shoulder joint replacement surgery Preoperative clearance Left lateral epicondylitis Adhesive capsulitis Right wrist sprain Oral lesion Colles' fracture Right wrist pain Left shoulder strain Anxiety Fibromyalgia Sinus drainage Chronic ankle pain, bilateral Rheumatoid arthritis Acute exacerbation of chronic bronchitis Foraminal stenosis of lumbar region Peripheral neuropathy Pneumonia (~2017) Impotence (Unknown) Restless leg syndrome (Unknown) Arthritis (Unknown) Chronic pain syndrome (Unknown) Kidney stones (Unknown) Prostate cancer (Unknown) Skin cancer (Unknown) Hepatitis C (Unknown) Hypertension (Unknown) Migraines (Unknown) PTSD (post-traumatic stress disorder) (Unknown) Depression (Unknown) Surgical History S/P lumbar fusion History of lumbar fusion (05/10/22) History of ankle surgery 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 Social History marital status: household members: spouse lives independently: Yes occupational status: previously employed Smoking Status: Former smoker Tobacco: How many years used: 20 quit status: has quit before alcohol intake: former substance use type: former substance user and marijuana Smoking Status: Former smoker tobacco type: cigarettes alcohol intake frequency: holidays/special occasions only Substance Use Type: does not use Exam Initial Vital Signs Initial Vital Signs: Vital Signs Temperature 98 F 01/18/24 18:06 Pulse Rate 84 01/18/24 18:06 Respiratory Rate 16 01/18/24 18:06 Blood Pressure 154/96 H 01/18/24 18:06 Pulse Oximetry 98 01/18/24 18:06 Oxygen Delivery Method Room Air 01/18/24 18:06 Const: Awake, alert, debilitated, frail Cardiac: regular rate, regular rhythm RESP: unlabored, clear bilaterally, no wheezing MSK: No deformity, full range of motion, pulses equal Skin: Warm, Dry, intact, no rashes Neuro: AO x3, CN II-XII grossly intact, moves all extremities Course Orders Ordered: ED Orders 01/18/24 18:10 XR wrist LT min 3V Stat XR wrist RT min 3V Stat 01/18/24 18:28 XR knee LT 3V Stat Discontinued Medications Acetaminophen (Acetaminophen 325 Mg Tablet) 975 mg PO NOW ONE Stop: 01/18/24 18:09 Last Admin: 01/18/24 18:40 Dose: Not Given Documented By: SRINATH Ibuprofen (Ibuprofen 400 Mg Tablet) 800 mg PO NOW ONE Stop: 01/18/24 18:09 Last Admin: 01/18/24 18:41 Dose: Not Given Documented By: SRINATH Vital Signs Vital signs: Vital Signs - 8 hr 01/18/24 18:06 Temperature 98 F Pulse Rate 84 Respiratory Rate 16 Blood Pressure 154/96 H Pulse Oximetry 98 Oxygen Delivery Method Room Air MDM - Fall Differential Diagnosis Differential diagnosis: Likely syncope, dislocation of shoulder region and fracture of wrist MDM Narrative Medical decision making narrative: Ground level mechanical fall, multiple visits for similar. Patient does have drug-seeking behavior and frequently runs out of his pain medications requesting opiates in the emergency department. Patient told walk-in clinic several days ago that he had already run out of his prescription 1 week prior to a refill. I suspect patient was here for drug-seeking behavior at this time. X-ray imaging negative for fracture or acute abnormalities. Patient very upset when told that he would not be getting a refill of his pain medications early stating that he was going to merle everyone Discharge Plan Departure Patient Disposition: Home Clinical Impression: Left knee pain, Bilateral wrist pain Instructions: How to Prevent Falls Activity Restrictions/Additional Instructions: FOLLOW UP WITH YOUR PRIMARY CARE PHYSICIAN. YOU HAVE OVERUSED YOUR PAIN MEDICATIONS AND I CAN NOT PRESCRIBE ANYMORE FOR YOU TODAY. I HIGHLY RECOMMEND FOLLOWING UP WITH PHYSICAL THERAPY TO PREVENT FURTHER FALLS. Prescriptions: No Action albuterol sulfate 2.5 mg /3 mL (0.083 %) solution for nebulization 2.5 mg Continuous Nebulization Q6HP PRN (Reason: shortness of breath or wheezing) Qty: 360 2RF albuterol sulfate 90 mcg/actuation HFA aerosol inhaler 1 inh INHALATION Q4-6H PRN (Reason: shortness of breath) Qty: 18 4RF omeprazole 40 mg capsule,delayed release(DR/EC) 40 mg PO DAILY Qty: 90 3RF Rx Instructions: take 1 capsule by mouth once daily lidocaine 5 % adhesive patch,medicated 2 patch topical DAILY Qty: 30 1RF Rx Instructions: leave on most painful area for up to 12 hrs metoprolol succinate 100 mg tablet extended release 24 hr 100 mg PO DAILY Qty: 90 1RF nitroglycerin 0.4 mg tablet, sublingual 0.4 mg sublingual Q5M PRN (Reason: chest pain) Qty: 20 1RF Rx Instructions: do not exceed 3 doses per episode fluoxetine 10 mg capsule See Rx Instructions .ROUTE .COMPLEX Qty: 90 3RF Dose Instruction: take 1 capsule by mouth once daily WITH 20MG CAP DAILY TOTAL 30 MG DAILY Rx Instructions: take 1 capsule by mouth once daily WITH 20MG CAP DAILY TOTAL 30 MG DAILY fluoxetine 20 mg capsule 20 mg PO DAILY Qty: 90 3RF Rx Instructions: Take with 10 mg to complete 30 mg dose methocarbamol 750 mg tablet 750 mg PO QID PRN (Reason: pain, severe) Qty: 56 0RF sulfasalazine 500 mg tablet 1,000 mg PO BID Qty: 180 1RF cholecalciferol (vitamin D3) 1,250 mcg (50,000 unit) capsule 1,250 mcg PO QWEEK Qty: 12 0RF ferrous sulfate [Iron (ferrous sulfate)] 325 mg (65 mg iron) tablet 325 mg PO DAILY Qty: 90 0RF Rx Instructions: Take with Vitamin C ascorbic acid (vitamin C) 500 mg tablet 500 mg PO DAILY Qty: 90 0RF Rx Instructions: Take with iron hydromorphone 2 mg tablet 2 mg PO BEDTIME PRN (Reason: pain) Qty: 30 0RF Rx Instructions: May refill on Dec 02, 2023 oxycodone 10 mg tablet 10 mg PO Q8H PRN (Reason: pain) Qty: 90 0RF Rx Instructions: MAY REFILL ON DEC 02, 2023 prednisone 10 mg tablet 10 mg PO DIRECTED Qty: 65 0RF Rx Instructions: Start with 60 mg daily divided bid and reduce by 10mg every 3 days ketoconazole 2 % cream 1 applic topical BID Qty: 30 1RF meloxicam 15 mg tablet 15 mg PO DAILY Qty: 30 0RF ferrous gluconate 324 mg (37.5 mg iron) tablet 324 mg PO DAILY Qty: 90 2RF Rx Instructions: start taking daily, with food or juice prochlorperazine [Compazine] 25 mg suppository 25 mg NM BID PRN (Reason: nausea and vomiting) Qty: 12 1RF nortriptyline 10 mg capsule 10 mg PO BEDTIME Qty: 30 1RF ondansetron 8 mg tablet,disintegrating 8 mg PO Q8H PRN (Reason: nausea and vomiting) Qty: 30 1RF zolmitriptan [Zomig] 5 mg tablet See Rx Instructions PO .COMPLEX Qty: 10 1RF Rx Instructions: take 1 tab at onset of headache; if no relief, may repeat 1 tab after at least 2 hrs; max = 2 tabs/24 hrs PO potassium chloride 20 mEq tablet extended release 20 meq PO BID Qty: 10 0RF lidocaine 5 % adhesive patch,medicated 1 patch topical DAILY Qty: 30 0RF Rx Instructions: against spine T9 level for shingles pain valacyclovir 1 gram tablet 1,000 mg PO TID Qty: 30 0RF Disabled Parking Permit 1 1 % SEEINSTR Rx Instructions: Valid for 5 years amlodipine 5 mg tablet 5 mg PO BEDTIME Patient Comments: pt received dose in hospital 11/10/19 early AM admit to hydrochlorothiazide 25 mg tablet 12.5 mg PO QAM losartan 100 mg tablet 100 mg PO DAILY ibuprofen 400 mg Tablet 400 mg PO Q4HR PRN (Reason: Pain, Mild (1-3)) Qty: 60 0RF ipratropium-albuterol 0.5 mg-3 mg(2.5 mg base)/3 mL solution for nebulization 3 ml inhalation Q6H PRN (Reason: shortness of breath or wheezing) Qty: 90 0RF Referrals: Edilberto Snell, [Primary Care Provider] - Stand Alone Forms: Patient Portal/API
--- NOTE | 2024-01-18 18:28 | DI.RAD.S_ITS ---
PROCEDURE: XR KNEE LT 3V INDICATIONS: GLF, KNEE PAIN TECHNIQUE: 3 views of the knee were acquired. COMPARISON: [facility], , XR KNEE LT 3V, 01/10/2024, 18:10. FINDINGS: Bones: No fractures or dislocations. No suspicious bony lesions. Mild medial compartment joint space narrowing Soft tissues: Moderate joint effusion. No suspicious soft tissue calcifications. IMPRESSION: Medial compartment osteoarthritis. No fracture or foreign body. Moderate joint effusion Approved by: Mario Henry M.D. on 01/18/2024 at 17:57
== END 2024-01-18 19:27 | disposition home or self-care (01) ==
PROVIDERS: Emergency Provider Emergency Medicine; PCP Family Medicine
DX: M25.532 Pain in left wrist (principal); M25.531 Pain in right wrist; M25.562 Pain in left knee
CPT/HCPCS: 73110; 73562; 99283

== ENCOUNTER 2024-01-23 12:52 | Emergency (ER) | payer MEDICARE, OTHER, SELFPAY ==
[2022-11-15 12:10] VITALS: BMI 30.8
[2024-01-23 13:05] VITALS: BP 122/65; PULSE 69; RESP 16; TEMP 36.6; O2SAT 96; BMI 31.4
--- NOTE | 2024-01-23 13:08 | DI.RAD.S_ITS ---
PROCEDURE: XR CHEST 1V INDICATIONS: chest pain TECHNIQUE: One view of the chest was acquired. COMPARISON: [facility], CR, XR CHEST 1V, 11/20/2023, 17:20. [facility], CR, XR CHEST 1V, 11/15/2023, 15:53. FINDINGS: Surgical changes and devices: Bilateral shoulder arthroplasties are partially visualized. Lumbar spine hardware is partially visualized. Right upper quadrant surgical clips. Lungs and pleura: Lungs are clear. Calcified granuloma in the right lung are noted. No pleural effusions or pneumothorax. Mediastinum: Mediastinal contours appear normal. Heart size is normal. Bones and chest wall: No suspicious bony lesions. Overlying soft tissues appear unremarkable. IMPRESSION: No acute cardiopulmonary abnormality is seen. Dictated by: Hebert San M.D. on 01/23/2024 at 15:00 Approved by: Hebert San M.D. on 01/23/2024 at 15:01
[2024-01-23 13:57] LABS: INR 1.1 (0.9-1.3); Prothrombin Time 12.8 SECONDS (9.4-12.5)
[2024-01-23 14:00] LABS: PTT Partial Thromboplastin Tim 32 SECONDS (25.1-36.5)
[2024-01-23 14:03] LABS: Add Manual Diff / Slide Review NO; Basophils Absolute Auto 100 /uL (0-100); Basophils Percent Auto 0.7 % (0-2); Eosinophils Absolute Auto 200 /uL (0-450); Eosinophils Percent Auto 2.5 % (2-4); Hematocrit 30.4 % (41-53); Lymphocytes Absolute Auto 900 /uL (1100-4500); Lymphocytes Percent Auto 9.7 % (25-40); Mean Corpuscular Hemoglobin 25.3 PG (26-34); Mean Corpuscular Volume 76.6 fL (80-100); Monocytes Absolute Auto 1100 /uL (0-900); Monocytes Percent Auto 12.3 % (3-14); Neutrophils Absolute Auto 6800 /uL (1500-7000); Neutrophils Percent Auto 74.8 % (50-75); Platelet Count 274 X10^3/uL (150-400); Red Blood Cell Count 3.97 X10^6/uL (4.5-5.9); Red Cell Distribution Width 16.4 % (11.6-14.8)
[2024-01-23 14:06] LABS: Alanine Aminotransferase 11 IU/L (<50); Albumin 3.8 g/dL (3.5-5.0); Albumin Globulin Ratio 1.2 (1.0-2.8); Alkaline Phosphatase 68 U/L (38-126); Aspartate Aminotransferase 24 IU/L (17-59); BUN Creatinine Ratio 21.3 (6-22); Bilirubin Total 0.7 mg/dL (0.2-1.3); Blood Urea Nitrogen 19 mg/dL (9-20); Calcium 8.9 mg/dL (8.4-10.2); Carbon Dioxide 27 mmol/L (22-32); Chloride 101 mmol/L (98-107); Creatine Kinase 107 U/L (55-170); Estimated Glomerular Filt Rate > 60 mL/min (>60); Globulin 3.3 g/dL (1.7-4.1); Glucose 107 mg/dL (80-110); HEMOLYSIS 28 (0-50); Lipase 19 U/L (23-300); Potassium 3.9 mmol/L (3.4-5.1); Sodium 134 mmol/L (137-145); Total Protein 7.1 g/dL (6.3-8.2)
[2024-01-23 14:17] LABS: Troponin I 0.026 ng/mL (0.01-0.034)
[2024-01-23 14:41] VITALS: PULSE 69; RESP 22; O2SAT 96
[2024-01-23 14:43] VITALS: BP 131/74; PULSE 75; RESP 20
[2024-01-23 15:00] VITALS: BP 106/53; PULSE 67; RESP 23; O2SAT 95
--- NOTE | 2024-01-23 15:26 | ED_ITS ---
HPI - Dizziness General Chief Complaint: Dizziness Stated Complaint: vomiting, feeling woozy Time Seen by Provider: 01/23/24 15:26 History of Present Illness HPI Narrative: This is a 78-year-old male with complaint of feeling dizzy the last several days he describes this on and off nothing seems to make it worse. He feels better when he lies down. Moving his head quickly does not seem to worsen anything. He states no syncope. He states the room is not spinning. He states he has had similar symptoms in the past and been prescribed something for dizziness but could not find it. Denies any fevers or chills, no vision changes, no headaches, no difficulty with speech, no numbness tingling or weakness. He states no significant changes with balance he sometimes uses a walker has been using it intermittently lately. Denies any chest pain or shortness of breath. Threw up 1 time today, has not had any other nausea or vomiting he states feels normal currently. Denies issues with bowel movements. Denies new issues with urination but states he is some chronic urinary incontinence. Related Data Home Medications Medication Instructions Recorded Confirmed Disabled Parking Permit 1 % SEEINSTR 11/08/20 01/14/24 amlodipine 5 mg tablet 5 mg PO BEDTIME 11/08/22 01/14/24 hydrochlorothiazide 25 mg tablet 12.5 mg PO QAM 11/15/22 01/14/24 losartan 100 mg tablet 100 mg PO DAILY 11/15/22 01/14/24 Previous Rx's Medication Instructions Recorded albuterol sulfate 2.5 mg/3 mL 2.5 mg (3 mL) continuous 10/24/22 (0.083 %) solution for nebulization nebulization Q6HP PRN shortness of breath or wheezing #360 mL ibuprofen 400 mg tablet 400 mg PO Q4HR PRN Pain, Mild 11/16/22 (1-3) #60 tabs albuterol sulfate 90 mcg/actuation 1 inh inhalation Q4-6H PRN 12/27/22 aerosol inhaler shortness of breath #18 grams omeprazole 40 mg capsule,delayed 40 mg PO DAILY #90 caps 01/01/23 release lidocaine 5 % topical patch 2 patch topical DAILY #30 ea 01/08/23 ketoconazole 2 % topical cream 1 applic topical BID #30 grams 02/08/23 potassium chloride 20 mEq 20 meq PO BID #10 tabs 05/16/23 tablet,extended release ipratropium 0.5 mg-albuterol 3 mg 3 ml inhalation Q6H PRN shortness 03/19/23 (2.5 mg base)/3 mL nebulization of breath or wheezing #90 mL soln metoprolol succinate 100 mg 100 mg PO DAILY #90 tabs 07/11/23 tablet,extended release 24 hr meloxicam 15 mg tablet 15 mg PO DAILY #30 tabs 08/13/23 lidocaine 5 % topical patch 1 patch topical DAILY #30 ea 09/02/23 valacyclovir 1 gram tablet 1,000 mg PO TID #30 tabs 09/02/23 nitroglycerin 0.4 mg sublingual 0.4 mg sublingual Q5M PRN chest 10/03/23 tablet pain #20 tabs fluoxetine 10 mg capsule See Rx Instructions .Route 10/08/23 .COMPLEX #90 caps fluoxetine 20 mg capsule 20 mg PO DAILY #90 caps 10/08/23 ferrous gluconate 324 mg (37.5 mg 324 mg PO DAILY #90 tabs 10/22/23 iron) tablet methocarbamol 750 mg tablet 750 mg PO QID PRN pain, severe #56 11/01/23 tabs sulfasalazine 500 mg tablet 1,000 mg (2 x 500 mg) PO BID #180 11/28/23 tabs prednisone 10 mg tablet 10 mg PO DIRECTED #65 tabs 12/12/23 ascorbic acid (vitamin C) 500 mg 500 mg PO DAILY #90 tabs 12/13/23 tablet cholecalciferol (vitamin D3) 1,250 1,250 mcg PO QWEEK #12 caps 12/13/23 mcg (50,000 unit) capsule ferrous sulfate 325 mg (65 mg 325 mg PO DAILY #90 tabs 12/13/23 iron) tablet (Iron (ferrous sulfate)) nortriptyline 10 mg capsule 10 mg PO BEDTIME #30 caps 12/17/23 ondansetron 8 mg disintegrating 8 mg PO Q8H PRN nausea and 12/17/23 tablet vomiting #30 tabs prochlorperazine 25 mg rectal 25 mg AL BID PRN nausea and 12/17/23 suppository (Compazine) vomiting #12 ea zolmitriptan 5 mg tablet (Zomig) See Rx Instructions PO .COMPLEX 12/17/23 #10 tabs hydromorphone 2 mg tablet 2 mg PO BEDTIME PRN pain #30 tabs 12/30/23 oxycodone 10 mg tablet 10 mg PO Q8H PRN pain #90 tabs 12/30/23 meclizine 25 mg tablet 25 mg PO TID PRN dizziness #10 tabs 01/23/24 Allergies Allergy/AdvReac Type Severity Reaction Status Date / Time cyclobenzaprine Allergy Severe Dizziness, Verified 01/18/24 18:06 [From Flexeril] I bounce off ag acetaminophen [ACETAMINOPHEN] AdvReac Unknown Can't take Verified 01/18/24 18:06 r/t Hep C; upset stomach Review of Systems Review of Systems ROS Unobtainable: All systems reviewed & are unremarkable except as noted in HPI and below Patient History Medical History Left knee pain Chronic diarrhea Eustachian tube dysfunction Seasonal allergic rhinitis Dyspepsia Anemia Tinea Abdominal wall pain in both lower quadrants Constipation Aftercare following left shoulder joint replacement surgery Preoperative clearance Left lateral epicondylitis Adhesive capsulitis Right wrist sprain Oral lesion Colles' fracture Right wrist pain Left shoulder strain Anxiety Fibromyalgia Sinus drainage Chronic ankle pain, bilateral Rheumatoid arthritis Acute exacerbation of chronic bronchitis Foraminal stenosis of lumbar region Peripheral neuropathy Pneumonia (~2018) Impotence (Unknown) Restless leg syndrome (Unknown) Arthritis (Unknown) Chronic pain syndrome (Unknown) Kidney stones (Unknown) Prostate cancer (Unknown) Skin cancer (Unknown) Hepatitis C (Unknown) Hypertension (Unknown) Migraines (Unknown) PTSD (post-traumatic stress disorder) (Unknown) Depression (Unknown) Surgical History S/P lumbar fusion History of lumbar fusion (05/10/22) History of ankle surgery 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 Social History marital status: household members: spouse lives independently: Yes occupational status: previously employed Smoking Status: Former smoker Tobacco: How many years used: 20 quit status: has quit before alcohol intake: former substance use type: former substance user and marijuana Smoking Status: Former smoker tobacco type: cigarettes alcohol intake frequency: holidays/special occasions only Substance Use Type: does not use Exam Narrative Exam Narrative: GEN: well nourished, well appearing male, alert and oriented x 3, patient appears to be in mild distress. HEENT: Atraumatic, pupils are equal round reactive to light, extraocular movements are intact, no nystagmus, nares are clear, TMs are clear with no fluid, there is no conjunctival pallor. Throat is clear without any exudates, erythema, tonsillar enlargement or uvular deviation, no facial droop. HEART: Regular rate and rhythm without murmur, clicks, rubs. No carotid bruits, pulses are equal in upper and lower extremities LUNGS:Lungs clear to auscultation, no wheezes, rales, crackles, chest moves symmetrically ABD:bowel sounds normal, soft, non-tender, no guarding, rebound, rigidity, no masses noted, no hepatosplenomegaly :No CVA tenderness MSCL: Non-tender, no muscle atrophy, muscles strength 5/5 upper and lower extremities, full range of motion. NEURO:CN 2-12 intact, sensation normal, finger nose finger test normal, heel english test normal Initial Vital Signs Initial Vital Signs: Vital Signs Temperature 97.9 F 01/23/24 13:05 Pulse Rate 69 01/23/24 13:05 Respiratory Rate 16 01/23/24 13:05 Blood Pressure 122/65 01/23/24 13:05 Pulse Oximetry 96 01/23/24 13:05 Oxygen Delivery Method Room Air 01/23/24 13:05 Course Orders Ordered: ED Orders 01/23/24 13:08 XR chest 1V Stat EKG-12 Lead Stat 01/23/24 13:42 Complete Blood Count AUTO DIFF Stat Comprehensive Metabolic Panel Stat Lipase Stat Magnesium Stat PTT Partial Thromboplastin Rao Stat Prothrombin Time INR Stat Troponin & CK Cardiac Panel Stat Discontinued Medications Meclizine HCl (Meclizine Hcl 12.5 Mg Tablet) 25 mg PO NOW ONE Stop: 01/23/24 16:14 Last Admin: 01/23/24 16:20 Dose: 25 mg Documented By: TYLER Vital Signs Vital signs: Vital Signs - 8 hr 01/23/24 13:05 01/23/24 14:41 01/23/24 14:43 Temperature 97.9 F Pulse Rate 69 69 75 Respiratory Rate 16 22 20 Blood Pressure 122/65 Pulse Oximetry 96 96 Oxygen Delivery Method Room Air Room Air 01/23/24 14:43 01/23/24 15:00 01/23/24 15:00 Temperature Pulse Rate 67 Respiratory Rate 23 Blood Pressure 131/74 106/53 L Pulse Oximetry 95 Oxygen Delivery Method 01/23/24 15:30 01/23/24 15:31 01/23/24 15:31 Temperature Pulse Rate 64 65 Respiratory Rate 23 23 Blood Pressure 146/66 H Pulse Oximetry 98 98 Oxygen Delivery Method Room Air MDM - Dizziness Lab Data 01/23/24 13:42 01/23/24 13:42 Labs: Lab Results 01/23/24 Range/Units 13:42 WBC 9.0 (4.5-11.0) X10^3/uL RBC 3.97 L (4.5-5.9) X10^6/uL Hgb 10.0 L (13.5-17.5) g/dL Hct 30.4 L (41-53) % MCV 76.6 L (80-100) fL MCH 25.3 L (26-34) PG MCHC 33.0 (30-36) % RDW 16.4 H (11.6-14.8) % Plt Count 274 (150-400) X10^3/uL Neut % (Auto) 74.8 (50-75) % Lymph % (Auto) 9.7 L (25-40) % [place] % (Auto) 12.3 (3-14) % Eos % (Auto) 2.5 (2-4) % Baso % (Auto) 0.7 (0-2) % Neut # (Auto) 6800 (9564-4048) /uL Lymph # (Auto) 900 L (8422-0383) /uL [place] # (Auto) 1100 H (0-900) /uL Eos # (Auto) 200 (0-450) /uL Baso # (Auto) 100 (0-100) /uL PT 12.8 H (9.4-12.5) SECONDS INR 1.1 (0.9-1.3) APTT 32 (25.1-36.5) SECONDS Sodium 134 L (137-145) mmol/L Potassium 3.9 (3.4-5.1) mmol/L Chloride 101 (98-107) mmol/L Carbon Dioxide 27 (22-32) mmol/L BUN 19 (9-20) mg/dL Creatinine 0.89 (0.66-1.25) mg/dL Estimated GFR > 60 (>60) mL/min BUN/Creatinine Ratio 21.3 (6-22) Glucose 107 (80-110) mg/dL Calcium 8.9 (8.4-10.2) mg/dL Magnesium 2.0 (1.6-2.3) mg/dL Total Bilirubin 0.7 (0.2-1.3) mg/dL AST 24 (17-59) IU/L ALT 11 (<50) IU/L Alkaline Phosphatase 68 (38-126) U/L Total Creatine Kinase 107 (55-170) U/L Troponin I 0.026 (0.01-0.034) ng/mL Total Protein 7.1 (6.3-8.2) g/dL Albumin 3.8 (3.5-5.0) g/dL Globulin 3.3 (1.7-4.1) g/dL Albumin/Globulin Ratio 1.2 (1.0-2.8) Lipase 19 L (23-300) U/L Imaging Data Chest x-ray: Radiologist's Impression: Barrett Tam??78??M??1945 ? Allergy/Adv: cyclobenzaprine, acetaminophen (More??) Close Chest X-Ray (Signed) San,Hebert - 01/23/24 Knee X-Ray (Signed) Henry,Mario - 01/18/24 Wrist X-Ray (Signed) Henry,Mario - 01/18/24 Wrist X-Ray (Signed) Henry,Mario - 01/18/24 Shoulder X-Ray (Signed) San,Hebert - 01/10/24 Knee X-Ray (Signed) San,Hebert - 01/10/24 Knee X-Ray (Signed) Krishna Chavez - 12/30/23 Wrist X-Ray (Signed) ChavezKrishna hernandez - 12/30/23 Wrist X-Ray (Cancelled) 12/30/23 Shoulder X-Ray (Signed) Krishna Chavez - 12/30/23 Ribs X-Ray (Signed) Krishna Chavez - 12/30/23 Shoulder X-Ray (Signed) Mohit Olivares - 11/27/23 Knee X-Ray (Signed) Lisha,Kandaceu - 11/20/23 Chest X-Ray (Signed) Lisha,y - 11/20/23 Knee X-Ray (Signed) Lisha,yu - 11/15/23 Knee X-Ray (Signed) Lisha, - 11/15/23 Chest X-Ray (Signed) Lisha, - 11/15/23 Knee X-Ray (Signed) Steve Clement - 11/11/23 Knee X-Ray (Signed) Dustin Kelly - 10/31/23 Chest X-Ray (Signed) Dustin Kelly - 10/31/23 Wrist X-Ray (Signed) Malachi Fernandez - 10/30/23 Wrist MRI (Signed) Mohit Olivares - 10/30/23 Knee MRI (Signed) Mohit Olivares - 10/30/23 Wrist X-Ray (Signed) Jason Hdez - 10/01/[address] (Signed) Kaya Leigh - 09/30/23 Knee X-Ray (Signed) Tereso Parnell - 09/30/[address] (Signed) SanHebert - 09/30/[address] (Signed) MenaHebert - 09/30/23 Shoulder X-Ray (Signed) Gabriella Mccormick - 09/20/23 Knee X-Ray (Signed) Mohit Olivares - 09/20/23 Chest X-Ray (Signed) Arturo Shah - 09/16/23 Chest X-Ray (Signed) Jason Hdez - 09/09/23 Abdomen/Pelvis CT (Signed) Jason Hdez - 09/09/23 Ribs X-Ray (Signed) Dustin Kelly - 09/09/23 Hip X-Ray (Signed) Dustin Kelly - 09/09/23 Abdomen/Pelvis CT (Signed) Todd Gage - 09/02/23 Hip X-Ray (Signed) SanShauny - 07/13/23 Femur X-Ray (Signed) San,Hebert - 07/13/23 Shoulder X-Ray (Signed) Willis,Hipolito - 07/11/23 Shoulder X-Ray (Signed) Willis,Hipolito - 07/11/23 Knee X-Ray (Signed) Willis,Hipolito - 07/11/23 Ankle X-Ray (Signed) Willis,Hipolito - 07/11/[address] (Signed) Steve Clement - 07/11/[address] (Signed) Manuel Ly - 07/10/[address] (Signed) Manuel Ly - 07/10/23 Wrist X-Ray (Signed) Gabriella Mccormick - 07/10/23 Wrist X-Ray (Signed) Bradley Cox - 06/28/23 Chest CTA (Signed) Gregg Vásquez - 06/09/23 Chest X-Ray (Signed) Gregg Vásquez - 06/09/23 Lumbar Spine MRI (Signed) Gregg Vásquez - 04/04/23 Chest X-Ray (Signed) Kaci Calabrese - 04/04/23 Lumbar Spine X-Ray (Signed) Kaci Calabrese - 04/04/23 Chest X-Ray (Signed) Arturo Shah - 03/19/23 Chest X-Ray (Signed) Hipolito Willis - 03/13/23 Chest CTA (Signed) Jason Hdez - 03/06/23 Chest X-Ray (Signed) Krishna Chavez - 03/06/23 Lumbar Spine MRI (Signed) WillisHipolito vargas - 02/25/23 Abdomen Ultrasound (Signed) Gregg Vásquez - 01/02/[address] [address] XRay Report Signed Patient: Barrett Tam MR#: [id number] : 1945 Acct:[id number] Age/Sex: 78 / M Date of Service: 01/23/24 Loc: ED Accession Number: [id number] Procedure: XR chest 1V Ordering Provider: Carie Escalante D.O. PROCEDURE: XR CHEST 1V INDICATIONS: chest pain TECHNIQUE: One view of the chest was acquired. COMPARISON: [facility], CR, XR CHEST 1V, 11/20/2023, 17:20. [facility], CR, XR CHEST 1V, 11/15/2023, 15:53. FINDINGS: Surgical changes and devices: Bilateral shoulder arthroplasties are partially visualized. Lumbar spine hardware is partially visualized. Right upper quadrant surgical clips. Lungs and pleura: Lungs are clear. Calcified granuloma in the right lung are noted. No pleural effusions or pneumothorax. Mediastinum: Mediastinal contours appear normal. Heart size is normal. Bones and chest wall: No suspicious bony lesions. Overlying soft tissues appear unremarkable. IMPRESSION: No acute cardiopulmonary abnormality is seen. Dictated by: Hebert San M.D. on 01/23/2024 at 15:00 Approved by: Hebert San M.D. on 01/23/2024 at 15:01 ECG Data Attestation: I personally reviewed and interpreted this ECG as follows: Prior ECG tracings: available for review Interpretation: Sinus rhythm rate of 67 AL 156 QRS 86 QTC [address] No acute ST elevation. No acute ST elevation or depression. Patient has prior from 11/20/[address] changes appreciated appears similar to prior. MDM Narrative Medical decision making narrative: 78-year-old male with complaint feeling dizzy. Patient states he feels better currently. He has had similar symptoms in the past has been prescribed something in the past for this states the room isn't spinning but it is better when he lays down. He has ambulated to the bathroom without issue. Patient has no acute neurologic changes on exam ambulating without issue with no other red flag changes currently. Patient has a white count of 9, hemoglobin of 10, this appears stable compared to priors from the past year ranging from 10.7-11.4. Patient's platelets are 274. Sodium is 134 potassium 3 9, creatinine 0.89 with a BUN 19 and a glucose of 107, CK is 107 with a troponin of 0.026 Chest x-ray shows no acute change EKG shows sinus rhythm. Patient's appears stable for discharge home. We will give a script for meclizine, he believes this was medication he had in the past. Does not have any acute neurologic changes or red flag symptoms necessitating further workup this time. Discussed return precautions all questions answered. Patient feels comfortable with this plan. Discharge Plan Departure Patient Disposition: Home Clinical Impression: Dizziness Activity Restrictions/Additional Instructions: Follow up with your primary care physician as needed. Make sure you are drinking plenty of fluids and staying hydrated. You may take meclizine 1 tablet every 8 hours as needed for dizziness or spinning symptoms. Prescription sent to [facility]. Please return for recurrent episodes, passing out, new vision changes, difficulty with speech, facial droop, numbness weakness or difficulty with movement, new chest pain or shortness of breath, persistent vomiting or other new or concerning changes. Prescriptions: New meclizine 25 mg tablet 25 mg PO TID PRN (Reason: dizziness) Qty: 10 0RF No Action albuterol sulfate 2.5 mg /3 mL (0.083 %) solution for nebulization 2.5 mg Continuous Nebulization Q6HP PRN (Reason: shortness of breath or wheezing) Qty: 360 2RF albuterol sulfate 90 mcg/actuation HFA aerosol inhaler 1 inh INHALATION Q4-6H PRN (Reason: shortness of breath) Qty: 18 4RF omeprazole 40 mg capsule,delayed release(DR/EC) 40 mg PO DAILY Qty: 90 3RF Rx Instructions: take 1 capsule by mouth once daily lidocaine 5 % adhesive patch,medicated 2 patch topical DAILY Qty: 30 1RF Rx Instructions: leave on most painful area for up to 12 hrs metoprolol succinate 100 mg tablet extended release 24 hr 100 mg PO DAILY Qty: 90 1RF nitroglycerin 0.4 mg tablet, sublingual 0.4 mg sublingual Q5M PRN (Reason: chest pain) Qty: 20 1RF Rx Instructions: do not exceed 3 doses per episode fluoxetine 10 mg capsule See Rx Instructions .ROUTE .COMPLEX Qty: 90 3RF Dose Instruction: take 1 capsule by mouth once daily WITH 20MG CAP DAILY TOTAL 30 MG DAILY Rx Instructions: take 1 capsule by mouth once daily WITH 20MG CAP DAILY TOTAL 30 MG DAILY fluoxetine 20 mg capsule 20 mg PO DAILY Qty: 90 3RF Rx Instructions: Take with 10 mg to complete 30 mg dose methocarbamol 750 mg tablet 750 mg PO QID PRN (Reason: pain, severe) Qty: 56 0RF sulfasalazine 500 mg tablet 1,000 mg PO BID Qty: 180 1RF cholecalciferol (vitamin D3) 1,250 mcg (50,000 unit) capsule 1,250 mcg PO QWEEK Qty: 12 0RF ferrous sulfate [Iron (ferrous sulfate)] 325 mg (65 mg iron) tablet 325 mg PO DAILY Qty: 90 0RF Rx Instructions: Take with Vitamin C ascorbic acid (vitamin C) 500 mg tablet 500 mg PO DAILY Qty: 90 0RF Rx Instructions: Take with iron hydromorphone 2 mg tablet 2 mg PO BEDTIME PRN (Reason: pain) Qty: 30 0RF Rx Instructions: May refill on Dec 02, 2023 oxycodone 10 mg tablet 10 mg PO Q8H PRN (Reason: pain) Qty: 90 0RF Rx Instructions: MAY REFILL ON DEC 02, 2023 prednisone 10 mg tablet 10 mg PO DIRECTED Qty: 65 0RF Rx Instructions: Start with 60 mg daily divided bid and reduce by 10mg every 3 days ketoconazole 2 % cream 1 applic topical BID Qty: 30 1RF meloxicam 15 mg tablet 15 mg PO DAILY Qty: 30 0RF ferrous gluconate 324 mg (37.5 mg iron) tablet 324 mg PO DAILY Qty: 90 2RF Rx Instructions: start taking daily, with food or juice prochlorperazine [Compazine] 25 mg suppository 25 mg AL BID PRN (Reason: nausea and vomiting) Qty: 12 1RF nortriptyline 10 mg capsule 10 mg PO BEDTIME Qty: 30 1RF ondansetron 8 mg tablet,disintegrating 8 mg PO Q8H PRN (Reason: nausea and vomiting) Qty: 30 1RF zolmitriptan [Zomig] 5 mg tablet See Rx Instructions PO .COMPLEX Qty: 10 1RF Rx Instructions: take 1 tab at onset of headache; if no relief, may repeat 1 tab after at least 2 hrs; max = 2 tabs/24 hrs PO potassium chloride 20 mEq tablet extended release 20 meq PO BID Qty: 10 0RF lidocaine 5 % adhesive patch,medicated 1 patch topical DAILY Qty: 30 0RF Rx Instructions: against spine T9 level for shingles pain valacyclovir 1 gram tablet 1,000 mg PO TID Qty: 30 0RF Disabled Parking Permit 1 1 % SEEINSTR Rx Instructions: Valid for 5 years amlodipine 5 mg tablet 5 mg PO BEDTIME Patient Comments: pt received dose in hospital 11/10/19 early AM admit to AC hydrochlorothiazide 25 mg tablet 12.5 mg PO QAM losartan 100 mg tablet 100 mg PO DAILY ibuprofen 400 mg Tablet 400 mg PO Q4HR PRN (Reason: Pain, Mild (1-3)) Qty: 60 0RF ipratropium-albuterol 0.5 mg-3 mg(2.5 mg base)/3 mL solution for nebulization 3 ml inhalation Q6H PRN (Reason: shortness of breath or wheezing) Qty: 90 0RF Referrals: Edilberto Snell DO [Primary Care Provider] - Stand Alone Forms: Patient Portal/API
[2024-01-23 15:30] VITALS: PULSE 64; RESP 23; O2SAT 98
[2024-01-23 15:31] VITALS: BP 146/66; PULSE 65; RESP 23; O2SAT 98
[2024-01-23] MEDS: MECLIZINE HCL 12.5 MG TABLET 25 MG PO (16:20)
== END 2024-01-23 16:30 | disposition home or self-care (01) ==
PROVIDERS: Emergency Provider Emergency Medicine; PCP Family Medicine
DX: R42 Dizziness and giddiness (principal); R07.9 Chest pain, unspecified
CPT/HCPCS: 36415; 71045; 80053; 82550; 83690; 83735; 84484; 85025; 85610; 85730; 93005; 93010; 99284

== ENCOUNTER 2024-02-02 01:00 | Inpatient (IN) | payer MEDICARE, OTHER, SELFPAY ==
[2022-11-15 12:10] VITALS: BMI 30.8
[2024-02-02] VITALS (11 sets, daily range): BP systolic 127–158; BP diastolic 61–75; PULSE 85–105; RESP 18–26; TEMP 37.9–38.9; O2SAT 94–99; BMI 29.4
--- NOTE | 2024-02-02 00:59 | ED_ITS ---
HPI - Nausea/Vomiting/Diarrhea General Chief complaint: Nausea/Vomiting/Diarrhea Stated complaint: n/v 2days Time Seen by Provider: 02/02/24 01:03 Source: patient, EMS, RN notes reviewed and old records reviewed Mode of arrival: EMS Limitations: no limitations History of Present Illness HPI Narrative: 78-year-old with history with history of seropositive rheumatoid arthritis in multiple joints, hepatitis-C, coronary artery disease, hypertension, asthma, chronic migraine who presents with complaint of all over body pain, abdominal pain and nausea vomiting and diarrhea for the past 1 to 2 days. Patient states no headache, he states he hurts everywhere even touching his arms his painful. Patient denies any recent falls or injuries. He was seen here on the for dizziness. Patient states no chest pain, he does feel short of breath he states he has been coughing it has been nonproductive although he coughed up some sputum here in the department. He does feel like his chest has been chunky. Patient states he has had nausea and vomiting as well he states no discoloration such as black or blood. He has also had multiple episodes of diarrhea today. He describes some abdominal pain little bit of bilateral low back pain. Patient states no urinary symptoms. No rashes or skin changes elsewhere. Patient states he has had multiple surgeries in the past including cholecystectomy. He states allergies to Tylenol and ibuprofen but has had Toradol here without issue, also has adverse reaction to Flexeril. Former smoker, occasional alcohol, no recreational drugs. Dr. Snell is his primary care physician. He is on multiple medications including Plaquenil and Arava (leflunomide, and on a medrol taper. Related Data Home Medications Medication Instructions Recorded Confirmed Disabled Parking Permit 1 % SEEINSTR 11/08/20 01/14/24 amlodipine 5 mg tablet 5 mg PO DAILY 11/08/22 02/02/24 hydrochlorothiazide 25 mg tablet 12.5 mg PO QAM 11/15/22 02/02/24 Previous Rx's Medication Instructions Recorded albuterol sulfate 2.5 mg/3 mL 2.5 mg (3 mL) continuous 10/24/22 (0.083 %) solution for nebulization nebulization Q6HP PRN shortness of breath or wheezing #360 mL albuterol sulfate 90 mcg/actuation 1 inh inhalation Q4-6H PRN 12/27/22 aerosol inhaler shortness of breath #18 grams omeprazole 40 mg capsule,delayed 40 mg PO DAILY #90 caps 01/01/23 release lidocaine 5 % topical patch 2 patch topical DAILY #30 ea 01/08/23 potassium chloride 20 mEq 20 meq PO BID #10 tabs 02/26/23 tablet,extended release ipratropium 0.5 mg-albuterol 3 mg 3 ml inhalation Q6H PRN shortness 03/19/23 (2.5 mg base)/3 mL nebulization of breath or wheezing #90 mL soln metoprolol succinate 100 mg 100 mg PO DAILY #90 tabs 07/11/23 tablet,extended release 24 hr valacyclovir 1 gram tablet 1,000 mg PO TID #30 tabs 09/02/23 nitroglycerin 0.4 mg sublingual 0.4 mg sublingual Q5M PRN chest 10/03/23 tablet pain #20 tabs fluoxetine 10 mg capsule See Rx Instructions .Route 10/08/23 .COMPLEX #90 caps fluoxetine 20 mg capsule 20 mg PO DAILY #90 caps 10/08/23 ferrous gluconate 324 mg (37.5 mg 324 mg PO DAILY #90 tabs 10/22/23 iron) tablet methocarbamol 750 mg tablet 750 mg PO QID PRN pain, severe #56 11/01/23 tabs sulfasalazine 500 mg tablet 1,000 mg (2 x 500 mg) PO BID #180 11/28/23 tabs prednisone 10 mg tablet 10 mg PO DIRECTED #65 tabs 12/12/23 ascorbic acid (vitamin C) 500 mg 500 mg PO DAILY #90 tabs 12/13/23 tablet cholecalciferol (vitamin D3) 1,250 1,250 mcg PO QWEEK #12 caps 12/13/23 mcg (50,000 unit) capsule ferrous sulfate 325 mg (65 mg 325 mg PO DAILY #90 tabs 12/13/23 iron) tablet (Iron (ferrous sulfate)) nortriptyline 10 mg capsule 10 mg PO BEDTIME #30 caps 12/17/23 ondansetron 8 mg disintegrating 8 mg PO Q8H PRN nausea and 12/17/23 tablet vomiting #30 tabs zolmitriptan 5 mg tablet (Zomig) See Rx Instructions PO .COMPLEX 12/17/23 #10 tabs meclizine 25 mg tablet 25 mg PO TID PRN dizziness #10 tabs 01/23/24 hydromorphone 2 mg tablet 2 mg PO BEDTIME PRN pain #30 tabs 01/31/24 oxycodone 10 mg tablet 10 mg PO Q8H PRN pain #90 tabs 01/31/24 Allergies Allergy/AdvReac Type Severity Reaction Status Date / Time cyclobenzaprine Allergy Severe Dizziness, Verified 01/18/24 18:06 [From Flexeril] I bounce off ag ibuprofen AdvReac Intermediate Redness of Verified 02/02/24 01:13 Skin acetaminophen [ACETAMINOPHEN] AdvReac Unknown Can't take Verified 01/18/24 18:06 r/t Hep C; upset stomach Review of Systems Review of Systems ROS Unobtainable: All systems reviewed & are unremarkable except as noted in HPI and below Patient History Medical History Left knee pain Chronic diarrhea Eustachian tube dysfunction Seasonal allergic rhinitis Dyspepsia Anemia Tinea Abdominal wall pain in both lower quadrants Constipation Aftercare following left shoulder joint replacement surgery Preoperative clearance Left lateral epicondylitis Adhesive capsulitis Right wrist sprain Oral lesion Colles' fracture Right wrist pain Left shoulder strain Anxiety Fibromyalgia Sinus drainage Chronic ankle pain, bilateral Rheumatoid arthritis Acute exacerbation of chronic bronchitis Foraminal stenosis of lumbar region Peripheral neuropathy Pneumonia (~2018) Impotence (Unknown) Restless leg syndrome (Unknown) Arthritis (Unknown) Chronic pain syndrome (Unknown) Kidney stones (Unknown) Prostate cancer (Unknown) Skin cancer (Unknown) Hepatitis C (Unknown) Hypertension (Unknown) Migraines (Unknown) PTSD (post-traumatic stress disorder) (Unknown) Depression (Unknown) Surgical History S/P lumbar fusion History of lumbar fusion (05/10/22) History of ankle surgery 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 Social History marital status: household members: spouse lives independently: Yes occupational status: previously employed Smoking Status: Former smoker Tobacco: How many years used: 20 quit status: has quit before alcohol intake: former substance use type: former substance user and marijuana Exam Narrative Exam Narrative: GEN: Elderly appearing male, alert and oriented x 3, patient appears to be in moderate distress. Patient appears to have some rigors HEENT: Atraumatic, pupils are equal round reactive to light, extraocular movements are intact, nares are clear, there is no conjunctival pallor. Throat is clear without any exudates, erythema, tonsillar enlargement or uvular deviation HEART: Regular rate and rhythm without murmur, clicks, rubs. No carotid bruits, pulses are equal in upper and lower extremities LUNGS:Lungs breath sounds bilaterally, no wheezes, rales, patient does have some rhonchi bilaterally, no crackles, chest moves symmetrically, mild tachypnea. Patient had some clear productive sputum. Has a wet cough on examination. ABD:bowel sounds normal, soft, positive right upper quadrant tenderness, no guarding, rebound, rigidity, no masses noted, no hepatosplenomegaly :No CVA tenderness MSCL: Non-tender, no muscle atrophy, muscles strength 5/5 upper and lower extremities, full range of motion, normal gait NEURO:CN 2-12 intact, sensation normal SKIN: No rash, erythema or other skin changes. Initial Vital Signs Initial Vital Signs: Vital Signs Temperature 102.1 F H 02/02/24 01:05 Pulse Rate 98 H 02/02/24 01:05 Respiratory Rate 20 02/02/24 01:05 Blood Pressure 158/68 H 02/02/24 01:05 Pulse Oximetry 99 02/02/24 01:05 Oxygen Delivery Method Room Air 02/02/24 01:05 Course Orders Ordered: ED Orders 02/02/24 01:11 XR chest 1V Stat EKG-12 Lead Stat 02/02/24 01:14 Respiratory Panel (Film Array) Stat 02/02/24 01:23 Complete Blood Count AUTO DIFF Stat Comprehensive Metabolic Panel Stat Lactate (Lactic Acid) Stat NT-proBNP (BNP-Adult 18+) Stat PTT Partial Thromboplastin Rao Stat Procalcitonin Stat Prothrombin Time INR Stat Troponin & CK Cardiac Panel Stat 02/02/24 01:34 Blood Culture Stat 02/02/24 01:45 CT chest abd pel w con Stat 02/02/24 02:12 Lipase Stat 02/02/24 02:30 Ictotest Urine Stat Urinalysis and Microscopic Stat Albuterol (Albuterol 2.5 Mg/3 Ml Neb (Adult)) 2.5 mg INH RTQ4HR PRN PRN Reason: Shortness Of Breath Or Wheezing Albuterol/Ipratropium (Albuterol/Ipratropium 3 Ml Ampul) 3 ml INH RTQ6HR PRN PRN Reason: Shortness Of Breath Or Wheezing Amlodipine Besylate (Amlodipine 5 Mg Tablet) 5 mg PO BEDTIME BENJAMÍN Ascorbic Acid (Ascorbic Acid 500 Mg Tablet) 500 mg PO DAILY BENJAMÍN Ferrous Sulfate (Ferrous Sulfate 325 Mg Tablet) 325 mg PO DAILY BENJAMÍN Fluoxetine HCl (Fluoxetine 10 Mg Capsule) 0 mg PO .COMPLEX BENJAMÍN Fluoxetine HCl (Fluoxetine 20 Mg Capsule) 20 mg PO DAILY BENJAMÍN Hydralazine HCl (Hydralazine 20 Mg/Ml Vial) 10 mg IV Q6HR PRN PRN Reason: SBP>= 160 or DBP >=110 Hydromorphone HCl (Hydromorphone 2 Mg Tablet) 2 mg PO BEDTIME PRN PRN Reason: pain Hydromorphone HCl (Hydromorphone 0.5 Mg Inj) 0.5 mg IV Q2H PRN PRN Reason: Pain, Severe (7-10) Last Admin: 02/02/24 04:04 Dose: 0.5 mg Documented By: AT Sodium Chloride (Normal Saline 0.9%) 1,000 mls @ 150 mls/hr IV CONT BENJAMÍN Last Admin: 02/02/24 03:16 Dose: 150 mls/hr Documented By: CF Sodium Chloride (Normal Saline 0.9%) 1,000 mls @ 100 mls/hr IV CONT BENJAMÍN Last Admin: 02/02/24 04:05 Dose: 100 mls/hr Documented By: AT Piperacillin Sod/Tazobactam (Sod 3.375 gm/ Sodium Chloride) 100 mls @ 25 mls/hr IV Q8H BENJAMÍN Lidocaine (Lidocaine 5% Patch) 2 each TOP DAILY BENJAMÍN Losartan Potassium (Losartan 50 Mg Tablet) 100 mg PO DAILY BENJAMÍN Meclizine HCl (Meclizine Hcl 12.5 Mg Tablet) 25 mg PO TID PRN PRN Reason: dizziness Melatonin (Melatonin 3 Mg Tablet) 9 mg PO BEDTIME PRN PRN Reason: insomnia Methocarbamol (Methocarbamol 500 Mg Tablet) 750 mg PO QID PRN PRN Reason: pain, severe Metoprolol Succinate (Metoprolol Er 50 Mg Tablet) 100 mg PO DAILY [facility] Naloxone HCl (Naloxone 0.4 Mg/Ml Vial) 0.2 mg IV Q2MIN PRN PRN Reason: Opiate Reversal Non-Formulary Medication (Cholecalciferol (Vitamin D3)) 1,250 mcg PO WEEKLY [facility] Non-Formulary Medication (Prednisone) 10 mg PO DIRECTED [facility] Non-Formulary Medication (Prochlorperazine [Compazine]) 25 mg MT BID PRN PRN Reason: nausea and vomiting Non-Formulary Medication (Sulfasalazine) 1,000 mg PO BID [facility] Nortriptyline HCl (Nortriptyline 10 Mg Capsule) 10 mg PO BEDTIME [facility] Ondansetron HCl (Ondansetron 4 Mg Odt) 8 mg PO Q8H PRN PRN Reason: nausea and vomiting Ondansetron HCl (Ondansetron 4 Mg/2 Ml Inj) 4 mg IV Q8HR PRN PRN Reason: Nausea And Vomiting Oxycodone HCl (Oxycodone Ir 10 Mg Tablet) 10 mg PO Q8H PRN PRN Reason: pain Pantoprazole Sodium (Pantoprazole Dr 40 Mg Tablet) 40 mg PO DAILY [facility] Potassium Chloride (Potassium Chloride 20 Meq Tab) 20 meq PO BID BENJAMÍN Discontinued Medications Albuterol (Albuterol Hfa Mdi 60 Puff/8 Gm Inhaler) 1 puff INH Q4-6H PRN PRN Reason: shortness of breath Sodium Chloride (Normal Saline 0.9%) 1,000 mls @ 1,000 mls/hr IV BOLUS ONE Stop: 02/02/24 02:12 Last Admin: 02/02/24 02:30 Dose: 1,000 mls/hr Documented By: SB Piperacillin Sod/Tazobactam (Sod 4.5 gm/ Sodium Chloride) 100 mls @ 200 mls/hr IV NOW ONE Stop: 02/02/24 03:03 Last Admin: 02/02/24 03:17 Dose: 200 mls/hr Documented By: CF Ketorolac Tromethamine (Ketorolac 30 Mg/Ml Vial) 15 mg IV NOW ONE Stop: 02/02/24 01:13 Last Admin: 02/02/24 01:53 Dose: 15 mg Documented By: SB Oxycodone HCl (Oxycodone Ir 10 Mg Tablet) 10 mg PO NOW ONE Stop: 02/02/24 01:57 Last Admin: 02/02/24 02:31 Dose: 10 mg Documented By: CF Vital Signs Vital signs: Vital Signs - 8 hr 02/02/24 01:05 02/02/24 01:05 02/02/24 01:06 Temperature 102.1 F H Pulse Rate 98 H 103 H Respiratory Rate 20 Blood Pressure 158/68 H 158/66 H Pulse Oximetry 99 97 Oxygen Delivery Method Room Air 02/02/24 01:06 02/02/24 01:30 02/02/24 02:27 Temperature Pulse Rate 102 H 105 H Respiratory Rate 23 23 Blood Pressure 146/68 H Pulse Oximetry 96 95 Oxygen Delivery Method 02/02/24 02:29 02/02/24 02:29 02/02/24 02:30 Temperature 100.2 F H Pulse Rate 100 H 96 H Respiratory Rate 18 22 Blood Pressure 144/61 H Pulse Oximetry 96 96 Oxygen Delivery Method Room Air 02/02/24 02:30 02/02/24 03:00 02/02/24 03:00 Temperature Pulse Rate 100 H Respiratory Rate 26 H Blood Pressure 141/65 H 135/62 Pulse Oximetry 95 Oxygen Delivery Method Room Air MDM - Nausea/Vomiting/Diarrhea Lab Data 02/02/24 01:23 02/02/24 01:23 Labs: Lab Results 02/02/24 02/02/24 02/02/24 Range/Units 01:14 01:23 02:12 WBC 17.3 H (4.5-11.0) X10^3/uL RBC 4.01 L (4.5-5.9) X10^6/uL Hgb 9.9 L (13.5-17.5) g/dL Hct 29.8 L (41-53) % MCV 74.3 L (80-100) fL MCH 24.6 L (26-34) PG MCHC 33.1 (30-36) % RDW 16.5 H (11.6-14.8) % Plt Count 334 (150-400) X10^3/uL Neut % (Auto) 89.9 H (50-75) % Lymph % (Auto) 2.7 L (25-40) % [place] % (Auto) 6.8 (3-14) % Eos % (Auto) 0.2 L (2-4) % Baso % (Auto) 0.4 (0-2) % Neut # (Auto) 33815 H (8133-5627) /uL Lymph # (Auto) 500 L (5816-2629) /uL [place] # (Auto) 1200 H (0-900) /uL Eos # (Auto) 0 (0-450) /uL Baso # (Auto) 100 (0-100) /uL PT 15.0 H (9.4-12.5) SECONDS INR 1.3 (0.9-1.3) APTT 34 (25.1-36.5) SECONDS Sodium 132 L (137-145) mmol/L Potassium 3.7 (3.4-5.1) mmol/L Chloride 99 (98-107) mmol/L Carbon Dioxide 27 (22-32) mmol/L BUN 15 (9-20) mg/dL Creatinine 0.74 (0.66-1.25) mg/dL Estimated GFR > 60 (>60) mL/min BUN/Creatinine Ratio 20.3 (6-22) Glucose 122 H (80-110) mg/dL Lactate 1.5 (0.7-2.1) mmol/L Calcium 8.8 (8.4-10.2) mg/dL Total Bilirubin 0.8 (0.2-1.3) mg/dL AST 41 (17-59) IU/L ALT 28 (<50) IU/L Alkaline Phosphatase 80 (38-126) U/L Total Creatine Kinase 61 (55-170) U/L Troponin I 0.038 H (0.01-0.034) ng/mL NT-Pro-B Natriuret Pep 542 H (<450) pg/mL Total Protein 7.5 (6.3-8.2) g/dL Albumin 4.1 (3.5-5.0) g/dL Globulin 3.4 (1.7-4.1) g/dL Albumin/Globulin Ratio 1.2 (1.0-2.8) Lipase 21 L (23-300) U/L Procalcitonin 0.37 (<0.5) ng/mL Urine Color Urine Appearance Urine pH (4.5-8.0) Ur Specific [place] (1.000-1.035) Urine Protein (Negative) Urine Glucose (UA) (Negative) g/dL Urine Ketones (NEGATIVE) Urine Occult Blood (Negative) Urine Nitrate (Negative) Urine Bilirubin (NEGATIVE) Ur Bilirubin Confirm (Negative) Urine Urobilinogen (0.2) E.U./dL Ur Leukocyte Esterase (NEGATIVE) Urine RBC (0-5/HPF) Urine WBC (0-5/HPF) Ur Squamous Epith Cells (0-5/HPF) Urine Bacteria (None) Ur Culture Indicated? Vol Urine Centrifuged Chlamy pneumoniae PCR Not detected (Not Detect) Adenovirus (PCR) Not detected (Not Detect) B.parapertussis DNA PCR Not detected (Not Detecte) Coronavirus OC43 (PCR) Not detected (Not Detect) Coronavirus HKU1 (PCR) Not detected (Not Detect) Coronavirus 229E (PCR) Not detected (Not Detect) SARS-CoV-2 (PCR) Not detected (Not Detecte) Coronavirus NL63 (PCR) Not detected (Not Detect) Human Metapneumovir PCR Not detected (Not Detect) Influenza Type A (PCR) Not detected (Not Detect) Influenza Type B (PCR) Not detected (Not Detect) M. pneumoniae (PCR) Not detected (Not Detect) Parainfluenza 1 (PCR) Not detected (Not Detect) Parainfluenza 2 (PCR) Not detected (Not Detect) Parainfluenza 3 (PCR) Not detected (Not Detect) Parainfluenza 4 (PCR) Not detected (Not Detect) RSV (PCR) Not detected (Not Detect) Entero/Rhino (PCR) Not detected (Not Detect) 02/02/24 Range/Units 02:30 WBC (4.5-11.0) X10^3/uL RBC (4.5-5.9) X10^6/uL Hgb (13.5-17.5) g/dL Hct (41-53) % MCV (80-100) fL MCH (26-34) PG MCHC (30-36) % RDW (11.6-14.8) % Plt Count (150-400) X10^3/uL Neut % (Auto) (50-75) % Lymph % (Auto) (25-40) % [place] % (Auto) (3-14) % Eos % (Auto) (2-4) % Baso % (Auto) (0-2) % Neut # (Auto) (2873-6321) /uL Lymph # (Auto) (1939-4220) /uL [place] # (Auto) (0-900) /uL Eos # (Auto) (0-450) /uL Baso # (Auto) (0-100) /uL PT (9.4-12.5) SECONDS INR (0.9-1.3) APTT (25.1-36.5) SECONDS Sodium (137-145) mmol/L Potassium (3.4-5.1) mmol/L Chloride (98-107) mmol/L Carbon Dioxide (22-32) mmol/L BUN (9-20) mg/dL Creatinine (0.66-1.25) mg/dL Estimated GFR (>60) mL/min BUN/Creatinine Ratio (6-22) Glucose (80-110) mg/dL Lactate (0.7-2.1) mmol/L Calcium (8.4-10.2) mg/dL Total Bilirubin (0.2-1.3) mg/dL AST (17-59) IU/L ALT (<50) IU/L Alkaline Phosphatase (38-126) U/L Total Creatine Kinase (55-170) U/L Troponin I (0.01-0.034) ng/mL NT-Pro-B Natriuret Pep (<450) pg/mL Total Protein (6.3-8.2) g/dL Albumin (3.5-5.0) g/dL Globulin (1.7-4.1) g/dL Albumin/Globulin Ratio (1.0-2.8) Lipase (23-300) U/L Procalcitonin (<0.5) ng/mL Urine Color Yellow Urine Appearance Clear Urine pH 5.5 (4.5-8.0) Ur Specific [place] 1.020 (1.000-1.035) Urine Protein Trace H (Negative) Urine Glucose (UA) Negative (Negative) g/dL Urine Ketones 1+ H (NEGATIVE) Urine Occult Blood Negative (Negative) Urine Nitrate Negative (Negative) Urine Bilirubin 1+ H (NEGATIVE) Ur Bilirubin Confirm Negative (Negative) Urine Urobilinogen 0.2 (0.2) E.U./dL Ur Leukocyte Esterase Negative (NEGATIVE) Urine RBC None seen (0-5/HPF) Urine WBC None seen (0-5/HPF) Ur Squamous Epith Cells 0-1 /hpf (0-5/HPF) Urine Bacteria None seen (None) Ur Culture Indicated? Cult not indicated Vol Urine Centrifuged 10ml (spun) Chlamy pneumoniae PCR (Not Detect) Adenovirus (PCR) (Not Detect) B.parapertussis DNA PCR (Not Detecte) Coronavirus OC43 (PCR) (Not Detect) Coronavirus HKU1 (PCR) (Not Detect) Coronavirus 229E (PCR) (Not Detect) SARS-CoV-2 (PCR) (Not Detecte) Coronavirus NL63 (PCR) (Not Detect) Human Metapneumovir PCR (Not Detect) Influenza Type A (PCR) (Not Detect) Influenza Type B (PCR) (Not Detect) M. pneumoniae (PCR) (Not Detect) Parainfluenza 1 (PCR) (Not Detect) Parainfluenza 2 (PCR) (Not Detect) Parainfluenza 3 (PCR) (Not Detect) Parainfluenza 4 (PCR) (Not Detect) RSV (PCR) (Not Detect) Entero/Rhino (PCR) (Not Detect) Imaging Data Chest x-ray: Radiologist's Impression: [address] [address] XRay Report Signed Patient: Barrett Tam MR#: [id number] : 1945 Acct:[id number] Age/Sex: 78 / M Date of Service: 02/02/24 Loc: ED Accession Number: [id number] Procedure: XR chest 1V Ordering Provider: Carie Escalante D.O. PROCEDURE: XR CHEST 1V INDICATIONS: fever, cough, n/v/d TECHNIQUE: One view of the chest was acquired. [facility], 13:39. FINDINGS: Surgical changes and devices: Bilateral shoulder arthroplasty Lungs and pleura: Lungs are clear. No pleural effusions or pneumothorax. Calcified granulomas Mediastinum: Mediastinal contours appear normal. Heart size is normal. Bones and chest wall: No suspicious bony lesions. Overlying soft tissues appear unremarkable. IMPRESSION: No acute cardiopulmonary abnormality is seen. Approved by: Mario Henry M.D. on 02/02/2024 at 1:25 chest/abd/pelvis CT : Radiologist's Impression: Lungs show calcified granuloma does both lungs calcified hilar mediastinal lymph nodes heart size normal great vessels unremarkable no infiltrate or effusion no pulmonary edema. Prior cholecystectomy no biliary obstruction, atherosclerosis calcification of the aorta without aneurysm. Wall thickening of the ascending proximal transverse colon suspected pneumatosis of the cecum and proximal ascending portion of the colon. Penile implant and noted with small bulb in the right side of the penis. ECG Data Attestation: I personally reviewed and interpreted this ECG as follows: Prior ECG tracings: available for review Interpretation: Sinus tachycardia rate of 101 MT 138 QRS 82 QTC [address] No acute ST changes patient has prior from 01/23/2024 which appears overall similar. MDM Narrative Medical decision making narrative: 78-year-old male who presents with complaint of rigors, nausea vomiting diarrhea, some abdominal pain but also congestion in his chest and productive cough. Patient is tachycardic febrile 96% on room air no hypotension. Not significantly tachypneic but very mildly. Labs show white count of 17, procalcitonin 0.37, normal lactate. Patient's hemoglobin is 9.9 he has been in the 10 range pretty consistently for the past several months. Platelets are 334 with a predominance of neutrophils. INR is 1.3 sodium is 132 with potassium of 3 7, chloride 99 CO2 of 27 BUN of 15 with a creatinine of 0.74, glucose is 122 lactate is negative at 1.5 calcium is 8.8 with normal bilirubin, AST ALT and negative lipase. Troponin was indeterminate patient has not any chest pain or pressure. BNP is 542. Respiratory panel is negative UA shows Initial chest x-ray is negative EKG shows some sinus tach but otherwise no acute ST changes. CT chest abdomen pelvis was obtained as patient had some right upper quadrant tenderness as he has prior cholecystectomy with GI symptoms but also respiratory symptoms. CT chest abdomen pelvis shows calcified granulomas both lungs calcified hilar and mediastinal lymph nodes probably cholecystectomy patient has wall thickening ascending and proximal transverse colon suspected pneumatosis cecum and proximal ascending portion of the colon and penile implant noted. Blood cultures are pending Patient received a L bolus and then fluids at 150 mL/hour. Patient did not receive a 30 cc/kilos bolus as he has not been hypotensive, tachycardia has been slowly improving and based on patient's age and medical history was felt not appropriate for such a large fluid bolus. Was started on Zosyn. Spoke with Dr. Laguerre, plan for admission IV antibiotics she will evaluate patient is tender but not exquisitely so his pain is relatively controlled he did meet septic criteria but has been improving discussed if she would like repeat lactate she states to hold off. We will contact hospitalist for admission to medicine. Spoke with Dr. Mayorga, hospitalist: Accepts for inpatient admission. Discharge Plan Departure Patient Disposition: Admitted As Inpatient Clinical Impression: Colitis, Sepsis Admit Date/Time: 02/02/24 03:24 Admit Provider: Troy Mayorga
--- NOTE | 2024-02-02 01:11 | DI.RAD.S_ITS ---
PROCEDURE: XR CHEST 1V INDICATIONS: fever, cough, n/v/d TECHNIQUE: One view of the chest was acquired. COMPARISON: [facility], CR, XR CHEST 1V, 01/23/2024, 13:39. FINDINGS: Surgical changes and devices: Bilateral shoulder arthroplasty Lungs and pleura: Lungs are clear. No pleural effusions or pneumothorax. Calcified granulomas Mediastinum: Mediastinal contours appear normal. Heart size is normal. Bones and chest wall: No suspicious bony lesions. Overlying soft tissues appear unremarkable. IMPRESSION: No acute cardiopulmonary abnormality is seen. Approved by: Mairo Henry M.D. on 02/02/2024 at 1:25
[2024-02-02 01:42] LABS: Add Manual Diff / Slide Review NO; Basophils Absolute Auto 100 /uL (0-100); Basophils Percent Auto 0.4 % (0-2); Eosinophils Absolute Auto 0 /uL (0-450); Eosinophils Percent Auto 0.2 % (2-4); Hematocrit 29.8 % (41-53); Hemoglobin 9.9 g/dL (13.5-17.5); Lymphocytes Absolute Auto 500 /uL (1100-4500); Lymphocytes Percent Auto 2.7 % (25-40); Mean Corpuscular HGB Conc 33.1 % (30-36); Mean Corpuscular Hemoglobin 24.6 PG (26-34); Mean Corpuscular Volume 74.3 fL (80-100); Monocytes Absolute Auto 1200 /uL (0-900); Monocytes Percent Auto 6.8 % (3-14); Neutrophils Absolute Auto 15500 /uL (1500-7000); Neutrophils Percent Auto 89.9 % (50-75); Platelet Count 334 X10^3/uL (150-400); Red Blood Cell Count 4.01 X10^6/uL (4.5-5.9); Red Cell Distribution Width 16.5 % (11.6-14.8); White Blood Cell Count 17.3 X10^3/uL (4.5-11.0)
--- NOTE | 2024-02-02 01:45 | DI.CT.S_ITS ---
PROCEDURE: CT CHEST ABD PEL W CON INDICATIONS: fever, rhonichi, cough, RUQ pain, N/V/D x 1 days TECHNIQUE: After the administration of intravenous contrast, 5 mm thick sections acquired from the lung apices to the symphysis. 5 mm coronal and sagittal reformats were performed, with additional 7 mm MIP reformats through the lungs. For radiation dose reduction, the following was used: automated exposure control, adjustment of mA and/or kV according to patient size. COMPARISON: None. FINDINGS: Image quality: Excellent. CHEST: Lower Neck: No enlarged lymph nodes. Thyroid: No thyroid nodules which require sonographic follow up, per consensus guidelines. Axillae: No enlarged lymph nodes. Chest Wall: Unremarkable. Lungs and Pleura: No pneumothorax or pleural effusions. Scattered 4-5 mm pulmonary nodules throughout the bilateral lungs with additional granulomas. Centrilobular ground-glass opacities within the basilar aspect of the right upper lobe and within the right middle lobe. No consolidation or suspicious nodules. Heart: Heart size is normal. No pericardial effusion. Thoracic Vessels: The aorta and pulmonary arteries demonstrate normal size. Mediastinum and Patt: No enlarged lymph nodes. Multiple calcified mediastinal lymph nodes. Esophagus: No wall thickening. No hiatal hernia. ABDOMEN: Liver: No solid mass. Gallbladder: Surgically absent. Biliary ducts: No abnormal biliary dilation. Pancreas: No ductal dilation. Spleen: Size is within normal limits. Adrenal Glands: No adrenal nodules. Kidneys and Ureters: No hydronephrosis. No solid mass. No complex renal cystic lesion which requires follow up. Stomach and Bowel: Within the hepatic flexure and transverse colon there is diffuse wall thickening for a long segment of colon with surrounding fatty infiltration of the mesentery. Note the cecum is up within this right upper quadrant and is immediately adjacent to the segment of bowel described above. The bowel gas pattern within the cecum is slightly peripheral in both the gravity dependent and nondependent surfaces. It is difficult to discern whether not this is intraluminal or within the mural wall thickening. Peritoneum: No abnormal intraperitoneal fluid. No free air. Ventral Wall: No significant ventral hernia. Abdominal Nodes: No retroperitoneal or mesenteric adenopathy by size criteria. Vessels: Aorta and inferior vena cava are normal in size. PELVIS: Pelvic Organs: Prostate is absent.. Bladder: No bladder wall thickening, accounting for underdistention. Pelvic Nodes: No enlarged lymph nodes. Miscellaneous: No inguinal hernias are seen. Bones: No aggressive osseous abnormality. Right sacral all are screws. Posterior lumbar fixation with intervertebral disc spacers. Plate and screw fixation of the pubis. Penile prosthesis is present. IMPRESSION: 1. Diffuse wall thickening of the ascending and transverse colon within the hepatic flexure with questionable air which may be enteric versus within the wall raising concern for possible pneumatosis. This may be colitis, diverticulitis, or ischemic in origin. 2. Sequela of prior granulomatous disease. 3. Small 4-6 mm pulmonary nodules. If the patient has risk for lung cancer consider reimaging in 1 year. 4. Centrilobular ground-glass opacities may be atypical infectious in nature, mucous plugging, or sequela of fibrosis. Interpretation is concordant with overnight read. Dictated by: Bob Brock M.D. on 02/02/2024 at 8:38 Approved by: Bob Brock M.D. on 02/02/2024 at 8:50
[2024-02-02 01:49] LABS: INR 1.3 (0.9-1.3)
[2024-02-02 01:52] LABS: Alanine Aminotransferase 28 IU/L (<50); Albumin 4.1 g/dL (3.5-5.0); Albumin Globulin Ratio 1.2 (1.0-2.8); Alkaline Phosphatase 80 U/L (38-126); Aspartate Aminotransferase 41 IU/L (17-59); BUN Creatinine Ratio 20.3 (6-22); Bilirubin Total 0.8 mg/dL (0.2-1.3); Blood Urea Nitrogen 15 mg/dL (9-20); Calcium 8.8 mg/dL (8.4-10.2); Carbon Dioxide 27 mmol/L (22-32); Chloride 99 mmol/L (98-107); Creatine Kinase 61 U/L (55-170); Estimated Glomerular Filt Rate > 60 mL/min (>60); Globulin 3.4 g/dL (1.7-4.1); Glucose 122 mg/dL (80-110); HEMOLYSIS < 15 (0-50); PTT Partial Thromboplastin Tim 34 SECONDS (25.1-36.5); Potassium 3.7 mmol/L (3.4-5.1); Sodium 132 mmol/L (137-145); Total Protein 7.5 g/dL (6.3-8.2)
[2024-02-02 01:53] LABS: Lactate (Lactic Acid) 1.5 mmol/L (0.7-2.1)
[2024-02-02] MEDS: KETOROLAC 30 MG/ML VIAL 15 MG IV (01:53)
[2024-02-02 02:05] LABS: NT-proBNP (BNP-Adult 18+) 542 pg/mL (<450); Troponin I 0.038 ng/mL (0.01-0.034)
[2024-02-02 02:10] LABS: Procalcitonin 0.37 ng/mL (<0.5)
[2024-02-02 02:18] LABS: Adenovirus Not Detected (Not Detect); B. parapertussis Not Detected (Not Detecte); Bordetella pertussis Not Detected (Not Detect); Chlamydophila pneumoniae Not Detected (Not Detect); Coronavirus 229E Not Detected (Not Detect); Coronavirus HKU1 Not Detected (Not Detect); Coronavirus NL 63 Not Detected (Not Detect); Coronavirus OC43 Not Detected (Not Detect); Human Metapneumovirus Not Detected (Not Detect); Human Rhinovirus/Enterovirus Not Detected (Not Detect); Influenza A Not Detected (Not Detect); Influenza B Not Detected (Not Detect); Mycoplasma pneumoniae Not Detected (Not Detect); Parainfluenza Virus 1 Not Detected (Not Detect); Parainfluenza Virus 2 Not Detected (Not Detect); Parainfluenza Virus 3 Not Detected (Not Detect); Parainfluenza Virus 4 Not Detected (Not Detect); Respiratory Syncytial Virus Not Detected (Not Detect); SARS- CoV-2 Not Detected (Not Detecte)
[2024-02-02 02:23] LABS: Lipase 21 U/L (23-300)
[2024-02-02] MEDS: SODIUM CHLORIDE 0.9% 1,000 ML 1000 ML IV (02:30)
[2024-02-02] MEDS: OXYCODONE IR 10 MG TABLET PO ×3 (02:31→11:05)
[2024-02-02 02:38] LABS: Appearance Urine UA CLEAR; Bilirubin Urine UA 1+ (NEGATIVE); Color Urine UA YELLOW; Glucose Urine UA NEGATIVE (Negative); Ketones Urine UA 1+ (NEGATIVE); Leukocyte Esterase Urine UA NEGATIVE (NEGATIVE); Nitrite Urine UA NEGATIVE (Negative); Occult Blood Urine UA NEGATIVE (Negative); Protein Urine UA TRACE (Negative); Urobilinogen Urine UA 0.2 E.U./dL (0.2); pH Urine UA 5.5 (4.5-8.0)
[2024-02-02] MEDS: SODIUM CHLORIDE 0.9% 1,000 ML 150 ML IV (03:16)
[2024-02-02] MEDS: PIPERACILLIN/TAZO 4.5 GM in SODIUM CHLORIDE 0.9% 100 ML IV (03:17)
[2024-02-02 03:18] LABS: Bacteria Urine None Seen; Ictotest Urine Negative (Negative); RBC Urine None Seen (0-5/HPF); Squamous Epithelial Cell Urine 0-1 /HPF (0-5/HPF); Urine Volume 10mL (spun); WBC Urine None Seen (0-5/HPF)
[2024-02-02 03:19] LABS: Culture Indicated Urine Cult Not Indicated
[2024-02-02] MEDS: HYDROMORPHONE 0.5 MG INJ IV ×2 (04:04→06:02)
[2024-02-02] MEDS: SODIUM CHLORIDE 0.9% 1,000 ML 100 ML IV (04:05)
--- NOTE | 2024-02-02 04:48 | P.HP_ITS ---
History of Present Illness History of Present Illness Chief complaint: n/v 2days Narrative: 78 years old male with history of seropositive rheumatoid arthritis in multiple joints on steroids, hep C, coronary artery disease, hypertension, chronic migraine, asthma, presented to the ER with fever, diffuse abdominal pain, nausea vomiting and diarrhea in the last couple of days. He also reports some joint pain and muscle pain requiring pain medications. He had 3-4 bowel movements per day with loose stools. Denies any hematemesis or melena. Denies any chest pain, palpitations or dysuria. Laboratory shows WBC 17, procalcitonin 0.37, normal lactic acid, sodium 132, potassium 3.7, creatinine 0.74, blood sugar 122, LFT negative, troponin undetermined, BNP 542. Respiratory panel negative, UA negative, chest x-ray negative. EKG shows sinus tachycardia. CT of the abdomen shows wall thickening of ascending and proximal transverse colon suspected pneumatosis cecum and proximal ascending portion of the colon. He was given fluid bolus, Toradol and Zosyn. Surgery was consulted over the phone and will see the patient in the morning. [facility] Medical History Left knee pain Chronic diarrhea Eustachian tube dysfunction Seasonal allergic rhinitis Dyspepsia Anemia Tinea Abdominal wall pain in both lower quadrants Constipation Aftercare following left shoulder joint replacement surgery Preoperative clearance Left lateral epicondylitis Adhesive capsulitis Right wrist sprain Oral lesion Colles' fracture Right wrist pain Left shoulder strain Anxiety Fibromyalgia Sinus drainage Chronic ankle pain, bilateral Rheumatoid arthritis Acute exacerbation of chronic bronchitis Foraminal stenosis of lumbar region Peripheral neuropathy Pneumonia (~2018) Impotence (Unknown) Restless leg syndrome (Unknown) Arthritis (Unknown) Chronic pain syndrome (Unknown) Kidney stones (Unknown) Prostate cancer (Unknown) Skin cancer (Unknown) Hepatitis C (Unknown) Hypertension (Unknown) Migraines (Unknown) PTSD (post-traumatic stress disorder) (Unknown) Depression (Unknown) Surgical History S/P lumbar fusion History of lumbar fusion (05/10/22) History of ankle surgery 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 Social History marital status: household members: spouse lives independently: Yes occupational status: previously employed Smoking Status: Former smoker Tobacco: How many years used: 20 quit status: has quit before alcohol intake: former substance use type: former substance user and marijuana Meds Home Medications and Allergies Home Medications Medication Instructions Recorded Confirmed Type Disabled Parking Permit 1 % SEEINSTR 11/08/20 01/14/24 History albuterol sulfate 2.5 mg/3 mL 2.5 mg (3 mL) continuous 10/24/22 01/14/24 Rx (0.083 %) solution for nebulization nebulization Q6HP PRN shortness of breath or wheezing #360 mL amlodipine 5 mg tablet 5 mg PO DAILY 11/08/22 02/02/24 History hydrochlorothiazide 25 mg tablet 12.5 mg PO QAM 11/15/22 02/02/24 History albuterol sulfate 90 mcg/actuation 1 inh inhalation Q4-6H PRN 12/27/22 01/14/24 Rx aerosol inhaler shortness of breath #18 grams omeprazole 40 mg capsule,delayed 40 mg PO DAILY #90 caps 01/01/23 01/14/24 Rx release lidocaine 5 % topical patch 2 patch topical DAILY #30 ea 01/08/23 02/02/24 Rx potassium chloride 20 mEq 20 meq PO BID #10 tabs 02/26/23 01/14/24 Rx tablet,extended release ipratropium 0.5 mg-albuterol 3 mg 3 ml inhalation Q6H PRN shortness 03/19/23 02/02/24 Rx (2.5 mg base)/3 mL nebulization of breath or wheezing #90 mL soln metoprolol succinate 100 mg 100 mg PO DAILY #90 tabs 07/11/23 02/02/24 Rx tablet,extended release 24 hr valacyclovir 1 gram tablet 1,000 mg PO TID #30 tabs 09/02/23 01/14/24 Rx nitroglycerin 0.4 mg sublingual 0.4 mg sublingual Q5M PRN chest 10/03/23 01/14/24 Rx tablet pain #20 tabs fluoxetine 10 mg capsule See Rx Instructions .Route 10/08/23 01/14/24 Rx .COMPLEX #90 caps fluoxetine 20 mg capsule 20 mg PO DAILY #90 caps 10/08/23 01/14/24 Rx ferrous gluconate 324 mg (37.5 mg 324 mg PO DAILY #90 tabs 10/22/23 02/02/24 Rx iron) tablet methocarbamol 750 mg tablet 750 mg PO QID PRN pain, severe #56 11/01/23 02/02/24 Rx tabs sulfasalazine 500 mg tablet 1,000 mg (2 x 500 mg) PO BID #180 11/28/23 02/02/24 Rx tabs prednisone 10 mg tablet 10 mg PO DIRECTED #65 tabs 12/12/23 02/02/24 Rx ascorbic acid (vitamin C) 500 mg 500 mg PO DAILY #90 tabs 12/13/23 02/02/24 Rx tablet cholecalciferol (vitamin D3) 1,250 1,250 mcg PO QWEEK #12 caps 12/13/23 02/02/24 Rx mcg (50,000 unit) capsule ferrous sulfate 325 mg (65 mg 325 mg PO DAILY #90 tabs 12/13/23 02/02/24 Rx iron) tablet (Iron (ferrous sulfate)) nortriptyline 10 mg capsule 10 mg PO BEDTIME #30 caps 12/17/23 01/14/24 Rx ondansetron 8 mg disintegrating 8 mg PO Q8H PRN nausea and 12/17/23 01/14/24 Rx tablet vomiting #30 tabs zolmitriptan 5 mg tablet (Zomig) See Rx Instructions PO .COMPLEX 12/17/23 01/14/24 Rx #10 tabs meclizine 25 mg tablet 25 mg PO TID PRN dizziness #10 tabs 01/23/24 02/02/24 Rx hydromorphone 2 mg tablet 2 mg PO BEDTIME PRN pain #30 tabs 01/31/24 02/02/24 Rx oxycodone 10 mg tablet 10 mg PO Q8H PRN pain #90 tabs 01/31/24 02/02/24 Rx Allergies Allergy/AdvReac Type Severity Reaction Status Date / Time cyclobenzaprine Allergy Severe Dizziness, Verified 01/18/24 18:06 [From Flexeril] I bounce off ag ibuprofen AdvReac Intermediate Redness of Verified 02/02/24 01:13 Skin acetaminophen [ACETAMINOPHEN] AdvReac Unknown Can't take Verified 01/18/24 18:06 r/t Hep C; upset stomach Review of Systems Review of Systems ROS: Yes All systems reviewed with the patient and are negative except as otherwise documented Constitutional Constitutional: Reports as per HPI and Reports system reviewed and no additional complaints, except as documented Eyes Eyes: Reports as per HPI and Reports system reviewed and no additional complaints, except as documented ENT Ears, Nose, Mouth, and Throat: Yes as per HPI and Yes system reviewed and no additional complaints, except as documented Cardiovascular Cardiovascular: Reports system reviewed and no additional complaints, except as documented Respiratory Respiratory: Reports system reviewed and no additional complaints, except as documented Gastrointestinal Gastrointestinal: Reports system reviewed and no additional complaints, except as documented Genitourinary Genitourinary: Reports system reviewed and no additional complaints, except as documented Musculoskeletal Musculoskeletal: Reports system reviewed and no additional complaints, except as documented, Reports abnormal gait and Reports numbness Neurologic Neurologic: Reports system reviewed and no additional complaints, except as documented, Reports abnormal gait, Reports confusion and Reports numbness Psychiatric Psychiatric: Reports system reviewed and no additional complaints, except as documented and Reports confusion Exam Vital Signs (past 8 hours): - 02/02/24 01:05 02/02/24 01:05 02/02/24 01:06 Temperature 102.1 F H Pulse Rate 98 H 103 H Respiratory Rate 20 Blood Pressure 158/68 H 158/66 H Pulse Oximetry 99 97 Oxygen Delivery Method Room Air Oxygen Flow Rate 02/02/24 01:06 02/02/24 01:30 02/02/24 02:27 Temperature Pulse Rate 102 H 105 H Respiratory Rate 23 23 Blood Pressure 146/68 H Pulse Oximetry 96 95 Oxygen Delivery Method Oxygen Flow Rate 02/02/24 02:29 02/02/24 02:29 02/02/24 02:30 Temperature 100.2 F H Pulse Rate 100 H 96 H Respiratory Rate 18 22 Blood Pressure 144/61 H Pulse Oximetry 96 96 Oxygen Delivery Method Room Air Oxygen Flow Rate 02/02/24 02:30 02/02/24 03:00 02/02/24 03:00 Temperature Pulse Rate 100 H Respiratory Rate 26 H Blood Pressure 141/65 H 135/62 Pulse Oximetry 95 Oxygen Delivery Method Room Air Oxygen Flow Rate 02/02/24 03:30 02/02/24 03:30 02/02/24 03:50 Temperature 100.3 F H Pulse Rate 97 H 97 H Respiratory Rate 24 18 Blood Pressure 143/65 H 136/61 Pulse Oximetry 95 94 Oxygen Delivery Method Room Air Oxygen Flow Rate 0 Oxygen Delivery Method Room Air Oxygen Flow Rate 0 Const General: cooperative, comfortable and well developed Orientation: alert and oriented x3 HENMT Head: normal to inspection, normocephalic and atraumatic Face and sinus: normal facial exam Mouth: oral mucosae normal and moist mucous membranes Throat: posterior oropharynx normal Eyes General: appearance normal, both eyes and all related structures Pupils: PERRL EOM: EOM intact bilaterally Neck Neck: normal visual inspection and full ROM Chest Chest: normal inspection of the chest Resp Effort & Inspection: normal respiratory effort and able to speak in complete sentences Auscultation: clear to auscultation bilaterally Cardio Palpation: normal PMI Rate: regular rate Rhythm: regular rhythm Heart Sounds: S1 normal and S2 normal GI Inspection: normal to inspection Palpation: soft and no hepatosplenomegaly Auscultation: normal bowel sounds Skin General: no rashes or lesions noted Lesions: no lesions Rashes: no rashes Trauma: no lacerations or abrasions Neuro General: patient alert, patient awake, patient oriented x3 and no focal motor deficits Cranial Nerves: CN's II-XI intact bilaterally Cognition: normal cognition Speech: speech normal Gait: normal gait Motor: muscle tone normal throughout Sensory Exam: no sensory deficits noted Extrem General: full ROM and no calf tenderness Psych Appearance: grossly normal Mental Status: mental status grossly normal Speech and Movement: speech and movement normal Objective Labs 02/02/24 01:23 02/02/24 01:23 Labs: Laboratory Results - last 24 hr 02/02/24 02/02/24 02/02/24 01:14 01:23 02:12 WBC 17.3 H RBC 4.01 L Hgb 9.9 L Hct 29.8 L MCV 74.3 L MCH 24.6 L MCHC 33.1 RDW 16.5 H Plt Count 334 Neut % (Auto) 89.9 H Lymph % (Auto) 2.7 L Mccreary % (Auto) 6.8 Eos % (Auto) 0.2 L Baso % (Auto) 0.4 Neut # (Auto) 68128 H Lymph # (Auto) 500 L Mccreary # (Auto) 1200 H Eos # (Auto) 0 Baso # (Auto) 100 PT 15.0 H INR 1.3 APTT 34 Sodium 132 L Potassium 3.7 Chloride 99 Carbon Dioxide 27 BUN 15 Creatinine 0.74 Estimated GFR > 60 BUN/Creatinine Ratio 20.3 Glucose 122 H Lactate 1.5 Calcium 8.8 Total Bilirubin 0.8 AST 41 ALT 28 Alkaline Phosphatase 80 Total Creatine Kinase 61 Troponin I 0.038 H NT-Pro-B Natriuret Pep 542 H Total Protein 7.5 Albumin 4.1 Globulin 3.4 Albumin/Globulin Ratio 1.2 Lipase 21 L Procalcitonin 0.37 Urine Color Urine Appearance Urine pH Ur Specific [place] Urine Protein Urine Glucose (UA) Urine Ketones Urine Occult Blood Urine Nitrate Urine Bilirubin Ur Bilirubin Confirm Urine Urobilinogen Ur Leukocyte Esterase Urine RBC Urine WBC Ur Squamous Epith Cells Urine Bacteria Ur Culture Indicated? Vol Urine Centrifuged Chlamy pneumoniae PCR Not detected Adenovirus (PCR) Not detected B.parapertussis DNA PCR Not detected Coronavirus OC43 (PCR) Not detected Coronavirus HKU1 (PCR) Not detected Coronavirus 229E (PCR) Not detected SARS-CoV-2 (PCR) Not detected Coronavirus NL63 (PCR) Not detected Human Metapneumovir PCR Not detected Influenza Type A (PCR) Not detected Influenza Type B (PCR) Not detected M. pneumoniae (PCR) Not detected Parainfluenza 1 (PCR) Not detected Parainfluenza 2 (PCR) Not detected Parainfluenza 3 (PCR) Not detected Parainfluenza 4 (PCR) Not detected RSV (PCR) Not detected Entero/Rhino (PCR) Not detected 02/02/24 02:30 WBC RBC Hgb Hct MCV MCH MCHC RDW Plt Count Neut % (Auto) Lymph % (Auto) Mccreary % (Auto) Eos % (Auto) Baso % (Auto) Neut # (Auto) Lymph # (Auto) Mccreary # (Auto) Eos # (Auto) Baso # (Auto) PT INR APTT Sodium Potassium Chloride Carbon Dioxide BUN Creatinine Estimated GFR BUN/Creatinine Ratio Glucose Lactate Calcium Total Bilirubin AST ALT Alkaline Phosphatase Total Creatine Kinase Troponin I NT-Pro-B Natriuret Pep Total Protein Albumin Globulin Albumin/Globulin Ratio Lipase Procalcitonin Urine Color Yellow Urine Appearance Clear Urine pH 5.5 Ur Specific [place] 1.020 Urine Protein Trace H Urine Glucose (UA) Negative Urine Ketones 1+ H Urine Occult Blood Negative Urine Nitrate Negative Urine Bilirubin 1+ H Ur Bilirubin Confirm Negative Urine Urobilinogen 0.2 Ur Leukocyte Esterase Negative Urine RBC None seen Urine WBC None seen Ur Squamous Epith Cells 0-1 /hpf Urine Bacteria None seen Ur Culture Indicated? Cult not indicated Vol Urine Centrifuged 10ml (spun) Chlamy pneumoniae PCR Adenovirus (PCR) B.parapertussis DNA PCR Coronavirus OC43 (PCR) Coronavirus HKU1 (PCR) Coronavirus 229E (PCR) SARS-CoV-2 (PCR) Coronavirus NL63 (PCR) Human Metapneumovir PCR Influenza Type A (PCR) Influenza Type B (PCR) M. pneumoniae (PCR) Parainfluenza 1 (PCR) Parainfluenza 2 (PCR) Parainfluenza 3 (PCR) Parainfluenza 4 (PCR) RSV (PCR) Entero/Rhino (PCR) Assessment & Plan Assessment & Plan narrative: Acute colitis ascending and proximal transverse colon with pneumatosis. Sepsis. -Continue Zosyn IV -Keep n.p.o. -Antiemetics and pain medications as needed -IV fluids -Surgery consult -Hold his hydrochlorothiazide for now Seropositive rheumatoid arthritis. -Increase prednisone to 20 mg daily during hospital stay -Restart his home medications Hypertension. Restart amlodipine and metoprolol Asthma/COPD. Restart albuterol and DuoNeb as needed GERD. Restart omeprazole Chronic anemia. Restart vitamin C and iron supplement. Time Spent With Patient Time with patient: 50 to 69 minutes with 50% spent counseling/coordinating care Quality VTE Deep Vein Thrombosis/Pulmonary Embolism Present on Admission: No MIPS - Admit I confirm the patient?s Advance Care Plan is present, Code status is documented, Surrogate decision maker is in patient?s record [If Yes, STOP here]: Yes MIPS - Meds 'Current medications' to include all prescriptions, [id number] products, herbals, cannabis/cannabidiol products, and vitamin/mineral/dietary (nutritional) supplements. I have utilized all available resources to obtain, update, or review the patient?s current medications. [If Yes, STOP here]: Yes
[2024-02-02] MEDS: methocarbamoL 500 MG TABLET 750 MG PO ×2 (05:02→11:05)
--- NOTE | 2024-02-02 07:22 | PM.HP.1 ---
History of Present Illness History of Present Illness Chief complaint: n/v 2days Narrative: From overnight provider: 78 years old male with history of seropositive rheumatoid arthritis in multiple joints on steroids, hep C, coronary artery disease, hypertension, chronic migraine, asthma, presented to the ER with fever, diffuse abdominal pain, nausea vomiting and diarrhea in the last couple of days. He also reports some joint pain and muscle pain requiring pain medications. He had 3-4 bowel movements per day with loose stools. Denies any hematemesis or melena. Denies any chest pain, palpitations or dysuria. Laboratory shows WBC 17, procalcitonin 0.37, normal lactic acid, sodium 132, potassium 3.7, creatinine 0.74, blood sugar 122, LFT negative, troponin undetermined, BNP 542. Respiratory panel negative, UA negative, chest x-ray negative. EKG shows sinus tachycardia. CT of the abdomen shows wall thickening of ascending and proximal transverse colon suspected pneumatosis cecum and proximal ascending portion of the colon. He was given fluid bolus, Toradol and Zosyn. Surgery was consulted over the phone and will see the patient in the morning. [facility] Medical History Left knee pain Chronic diarrhea Eustachian tube dysfunction Seasonal allergic rhinitis Dyspepsia Anemia Tinea Abdominal wall pain in both lower quadrants Constipation Aftercare following left shoulder joint replacement surgery Preoperative clearance Left lateral epicondylitis Adhesive capsulitis Right wrist sprain Oral lesion Colles' fracture Right wrist pain Left shoulder strain Anxiety Fibromyalgia Sinus drainage Chronic ankle pain, bilateral Rheumatoid arthritis Acute exacerbation of chronic bronchitis Foraminal stenosis of lumbar region Peripheral neuropathy Pneumonia (~2018) Impotence (Unknown) Restless leg syndrome (Unknown) Arthritis (Unknown) Chronic pain syndrome (Unknown) Kidney stones (Unknown) Prostate cancer (Unknown) Skin cancer (Unknown) Hepatitis C (Unknown) Hypertension (Unknown) Migraines (Unknown) PTSD (post-traumatic stress disorder) (Unknown) Depression (Unknown) Surgical History S/P lumbar fusion History of lumbar fusion (05/10/22) History of ankle surgery 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 Social History marital status: household members: spouse lives independently: Yes occupational status: previously employed Smoking Status: Former smoker Tobacco: How many years used: 20 quit status: has quit before alcohol intake: former substance use type: former substance user and marijuana Meds Home Medications and Allergies Home Medications Medication Instructions Recorded Confirmed Type Disabled Parking Permit 1 % SEEINSTR 11/08/20 01/14/24 History albuterol sulfate 2.5 mg/3 mL 2.5 mg (3 mL) continuous 10/24/22 01/14/24 Rx (0.083 %) solution for nebulization nebulization Q6HP PRN shortness of breath or wheezing #360 mL amlodipine 5 mg tablet 5 mg PO DAILY 11/08/22 02/02/24 History hydrochlorothiazide 25 mg tablet 12.5 mg PO QAM 11/15/22 02/02/24 History albuterol sulfate 90 mcg/actuation 1 inh inhalation Q4-6H PRN 12/27/22 01/14/24 Rx aerosol inhaler shortness of breath #18 grams omeprazole 40 mg capsule,delayed 40 mg PO DAILY #90 caps 01/01/23 01/14/24 Rx release lidocaine 5 % topical patch 2 patch topical DAILY #30 ea 01/08/23 02/02/24 Rx potassium chloride 20 mEq 20 meq PO BID #10 tabs 02/26/23 01/14/24 Rx tablet,extended release ipratropium 0.5 mg-albuterol 3 mg 3 ml inhalation Q6H PRN shortness 03/19/23 02/02/24 Rx (2.5 mg base)/3 mL nebulization of breath or wheezing #90 mL soln metoprolol succinate 100 mg 100 mg PO DAILY #90 tabs 07/11/23 02/02/24 Rx tablet,extended release 24 hr valacyclovir 1 gram tablet 1,000 mg PO TID #30 tabs 09/02/23 01/14/24 Rx nitroglycerin 0.4 mg sublingual 0.4 mg sublingual Q5M PRN chest 10/03/23 01/14/24 Rx tablet pain #20 tabs fluoxetine 10 mg capsule See Rx Instructions .Route 10/08/23 01/14/24 Rx .COMPLEX #90 caps fluoxetine 20 mg capsule 20 mg PO DAILY #90 caps 10/08/23 01/14/24 Rx ferrous gluconate 324 mg (37.5 mg 324 mg PO DAILY #90 tabs 10/22/23 02/02/24 Rx iron) tablet methocarbamol 750 mg tablet 750 mg PO QID PRN pain, severe #56 11/01/23 02/02/24 Rx tabs sulfasalazine 500 mg tablet 1,000 mg (2 x 500 mg) PO BID #180 11/28/23 02/02/24 Rx tabs prednisone 10 mg tablet 10 mg PO DIRECTED #65 tabs 12/12/23 02/02/24 Rx ascorbic acid (vitamin C) 500 mg 500 mg PO DAILY #90 tabs 12/13/23 02/02/24 Rx tablet cholecalciferol (vitamin D3) 1,250 1,250 mcg PO QWEEK #12 caps 12/13/23 02/02/24 Rx mcg (50,000 unit) capsule ferrous sulfate 325 mg (65 mg 325 mg PO DAILY #90 tabs 12/13/23 02/02/24 Rx iron) tablet (Iron (ferrous sulfate)) nortriptyline 10 mg capsule 10 mg PO BEDTIME #30 caps 12/17/23 01/14/24 Rx ondansetron 8 mg disintegrating 8 mg PO Q8H PRN nausea and 12/17/23 01/14/24 Rx tablet vomiting #30 tabs zolmitriptan 5 mg tablet (Zomig) See Rx Instructions PO .COMPLEX 12/17/23 01/14/24 Rx #10 tabs meclizine 25 mg tablet 25 mg PO TID PRN dizziness #10 tabs 01/23/24 02/02/24 Rx hydromorphone 2 mg tablet 2 mg PO BEDTIME PRN pain #30 tabs 01/31/24 02/02/24 Rx oxycodone 10 mg tablet 10 mg PO Q8H PRN pain #90 tabs 01/31/24 02/02/24 Rx amoxicillin 875 mg-potassium 1 tab PO BID 7 days #14 tabs 02/02/24 Rx clavulanate 125 mg tablet Allergies Allergy/AdvReac Type Severity Reaction Status Date / Time cyclobenzaprine Allergy Severe Dizziness, Verified 01/18/24 18:06 [From Flexeril] I bounce off ag ibuprofen AdvReac Intermediate Redness of Verified 02/02/24 01:13 Skin acetaminophen [ACETAMINOPHEN] AdvReac Unknown Can't take Verified 01/18/24 18:06 r/t Hep C; upset stomach Review of Systems Musculoskeletal Musculoskeletal: Reports abnormal gait and Reports numbness Neurologic Neurologic: Reports abnormal gait, Reports confusion and Reports numbness Psychiatric Psychiatric: Reports confusion Exam Vital Signs (past 8 hours): - 02/02/24 01:05 02/02/24 01:05 02/02/24 01:06 Temperature 102.1 F H Pulse Rate 98 H 103 H Respiratory Rate 20 Blood Pressure 158/68 H 158/66 H Pulse Oximetry 99 97 Oxygen Delivery Method Room Air Oxygen Flow Rate 02/02/24 01:06 02/02/24 01:30 02/02/24 02:27 Temperature Pulse Rate 102 H 105 H Respiratory Rate 23 23 Blood Pressure 146/68 H Pulse Oximetry 96 95 Oxygen Delivery Method Oxygen Flow Rate 02/02/24 02:29 02/02/24 02:29 02/02/24 02:30 Temperature 100.2 F H Pulse Rate 100 H 96 H Respiratory Rate 18 22 Blood Pressure 144/61 H Pulse Oximetry 96 96 Oxygen Delivery Method Room Air Oxygen Flow Rate 02/02/24 02:30 02/02/24 03:00 02/02/24 03:00 Temperature Pulse Rate 100 H Respiratory Rate 26 H Blood Pressure 141/65 H 135/62 Pulse Oximetry 95 Oxygen Delivery Method Room Air Oxygen Flow Rate 02/02/24 03:27 02/02/24 03:30 02/02/24 03:30 Temperature Pulse Rate 97 H Respiratory Rate 24 Blood Pressure 143/65 H Pulse Oximetry 95 Oxygen Delivery Method Room Air Room Air Oxygen Flow Rate 02/02/24 03:50 Temperature 100.3 F H Pulse Rate 97 H Respiratory Rate 18 Blood Pressure 136/61 Pulse Oximetry 94 Oxygen Delivery Method Oxygen Flow Rate 0 Oxygen Delivery Method Room Air Oxygen Flow Rate 0 Narrative Exam Narrative: GEN: no acute distress HEENT: moist mucous membranes, PERRL NECK: trachea midline, no JVD CV: regular rate and rhythm, no murmurs PULM: clear bilaterally ABD: soft, nontender, nondistended, no organomegaly EXT: warm and well perfused with no edema NEURO: awake, alert, oriented, no focal deficits Objective Labs 02/02/24 08:25 02/02/24 08:25 Labs: Laboratory Results - last 24 hr 02/02/24 02/02/24 02/02/24 01:14 01:23 02:12 WBC 17.3 H RBC 4.01 L Hgb 9.9 L Hct 29.8 L MCV 74.3 L MCH 24.6 L MCHC 33.1 RDW 16.5 H Plt Count 334 Neut % (Auto) 89.9 H Lymph % (Auto) 2.7 L [place] % (Auto) 6.8 Eos % (Auto) 0.2 L Baso % (Auto) 0.4 Neut # (Auto) 55069 H Lymph # (Auto) 500 L [place] # (Auto) 1200 H Eos # (Auto) 0 Baso # (Auto) 100 PT 15.0 H INR 1.3 APTT 34 Sodium 132 L Potassium 3.7 Chloride 99 Carbon Dioxide 27 BUN 15 Creatinine 0.74 Estimated GFR > 60 BUN/Creatinine Ratio 20.3 Glucose 122 H Lactate 1.5 Calcium 8.8 Total Bilirubin 0.8 AST 41 ALT 28 Alkaline Phosphatase 80 Total Creatine Kinase 61 Troponin I 0.038 H NT-Pro-B Natriuret Pep 542 H Total Protein 7.5 Albumin 4.1 Globulin 3.4 Albumin/Globulin Ratio 1.2 Lipase 21 L Procalcitonin 0.37 Urine Color Urine Appearance Urine pH Ur Specific [place] Urine Protein Urine Glucose (UA) Urine Ketones Urine Occult Blood Urine Nitrate Urine Bilirubin Ur Bilirubin Confirm Urine Urobilinogen Ur Leukocyte Esterase Urine RBC Urine WBC Ur Squamous Epith Cells Urine Bacteria Ur Culture Indicated? Vol Urine Centrifuged Chlamy pneumoniae PCR Not detected Adenovirus (PCR) Not detected B.parapertussis DNA PCR Not detected Coronavirus OC43 (PCR) Not detected Coronavirus HKU1 (PCR) Not detected Coronavirus 229E (PCR) Not detected SARS-CoV-2 (PCR) Not detected Coronavirus NL63 (PCR) Not detected Human Metapneumovir PCR Not detected Influenza Type A (PCR) Not detected Influenza Type B (PCR) Not detected M. pneumoniae (PCR) Not detected Parainfluenza 1 (PCR) Not detected Parainfluenza 2 (PCR) Not detected Parainfluenza 3 (PCR) Not detected Parainfluenza 4 (PCR) Not detected RSV (PCR) Not detected Entero/Rhino (PCR) Not detected 02/02/24 02:30 WBC RBC Hgb Hct MCV MCH MCHC RDW Plt Count Neut % (Auto) Lymph % (Auto) [place] % (Auto) Eos % (Auto) Baso % (Auto) Neut # (Auto) Lymph # (Auto) [place] # (Auto) Eos # (Auto) Baso # (Auto) PT INR APTT Sodium Potassium Chloride Carbon Dioxide BUN Creatinine Estimated GFR BUN/Creatinine Ratio Glucose Lactate Calcium Total Bilirubin AST ALT Alkaline Phosphatase Total Creatine Kinase Troponin I NT-Pro-B Natriuret Pep Total Protein Albumin Globulin Albumin/Globulin Ratio Lipase Procalcitonin Urine Color Yellow Urine Appearance Clear Urine pH 5.5 Ur Specific [place] 1.020 Urine Protein Trace H Urine Glucose (UA) Negative Urine Ketones 1+ H Urine Occult Blood Negative Urine Nitrate Negative Urine Bilirubin 1+ H Ur Bilirubin Confirm Negative Urine Urobilinogen 0.2 Ur Leukocyte Esterase Negative Urine RBC None seen Urine WBC None seen Ur Squamous Epith Cells 0-1 /hpf Urine Bacteria None seen Ur Culture Indicated? Cult not indicated Vol Urine Centrifuged 10ml (spun) Chlamy pneumoniae PCR Adenovirus (PCR) B.parapertussis DNA PCR Coronavirus OC43 (PCR) Coronavirus HKU1 (PCR) Coronavirus 229E (PCR) SARS-CoV-2 (PCR) Coronavirus NL63 (PCR) Human Metapneumovir PCR Influenza Type A (PCR) Influenza Type B (PCR) M. pneumoniae (PCR) Parainfluenza 1 (PCR) Parainfluenza 2 (PCR) Parainfluenza 3 (PCR) Parainfluenza 4 (PCR) RSV (PCR) Entero/Rhino (PCR) Assessment & Plan Assessment & Plan narrative: Acute colitis ascending and proximal transverse colon with pneumatosis. Sepsis. -Continue Zosyn IV -Now tolerating diet -Antiemetics and pain medications as needed -IV fluids -Surgery consulted and recommended abx alone -Hold his hydrochlorothiazide for now Seropositive rheumatoid arthritis. -Increase prednisone to 20 mg daily during hospital stay -Restart his home medications Hypertension. -Restart amlodipine and metoprolol Asthma/COPD. -Restart albuterol and DuoNeb as needed GERD. -Restart omeprazole Chronic anemia. -Restart vitamin C and iron supplement. Code status is full code. DVT prophylaxis with SCDs. Proxy is Lanette. I have reviewed home meds and used all available resources to reconcile the home meds. Case discussed with ED physician/APC and patient will be admitted to the hospitalist service for further workup and management. This patient will be admitted as inpatient and will require greater than 2 midnights of hospital time to treat sepsis and colitis. Time Spent With Patient Time with patient: 50 to 69 minutes with 50% spent counseling/coordinating care Quality VTE Deep Vein Thrombosis/Pulmonary Embolism Present on Admission: No
[2024-02-02] MEDS: FERROUS SULFATE 325 MG TABLET PO (08:21)
[2024-02-02] MEDS: PANTOPRAZOLE DR 40 MG TABLET PO (08:21)
[2024-02-02] MEDS: FLUoxetine 10 MG CAPSULE 30 MG PO (08:21)
[2024-02-02] MEDS: predniSONE 20 MG TABLET PO (08:21)
[2024-02-02] MEDS: POTASSIUM CHLORIDE 20 MEQ TAB PO (08:21)
[2024-02-02] MEDS: ASCORBIC ACID 500 MG TABLET PO (08:22)
[2024-02-02] MEDS: PIPERACILLIN/TAZO 3.375 GM in SODIUM CHLORIDE 0.9% 100 ML IV (08:23)
[2024-02-02] MEDS: LOSARTAN 50 MG TABLET 100 MG PO (08:24)
[2024-02-02] MEDS: METOPROLOL ER 50 MG TABLET 100 MG PO (08:24)
[2024-02-02] MEDS: LIDOCAINE 5% PATCH 2 EACH TOP (08:24)
[2024-02-02 08:48] LABS: Alanine Aminotransferase 22 IU/L (<50); Albumin 3.1 g/dL (3.5-5.0); Albumin Globulin Ratio 1.1 (1.0-2.8); Alkaline Phosphatase 64 U/L (38-126); Aspartate Aminotransferase 32 IU/L (17-59); BUN Creatinine Ratio 21.1 (6-22); Bilirubin Total 0.8 mg/dL (0.2-1.3); Blood Urea Nitrogen 15 mg/dL (9-20); Calcium 7.8 mg/dL (8.4-10.2); Carbon Dioxide 28 mmol/L (22-32); Chloride 102 mmol/L (98-107); Estimated Glomerular Filt Rate > 60 mL/min (>60); Globulin 2.8 g/dL (1.7-4.1); Glucose 94 mg/dL (80-110); HEMOLYSIS < 15 (0-50); Magnesium 1.8 mg/dL (1.6-2.3); Potassium 3.4 mmol/L (3.4-5.1); Sodium 132 mmol/L (137-145); Total Protein 5.9 g/dL (6.3-8.2)
[2024-02-02] MEDS: HYDROMORPHONE 0.5 MG INJ 1 MG IV (09:48)
--- NOTE | 2024-02-02 09:55 | PM.HP.1 ---
History of Present Illness History of Present Illness Date Patient Seen: 02/02/24 Time Patient Seen: 09:55 Chief complaint: n/v 2days Narrative: Reported to me 4 days of discomfort with progressive diarrhea, vomiting, right sided abdominal pain. No exposure to others that are ill. Now on antibiotics and the diarrhea has stopped. I am plugged now. H/o chronic diarrhea and constipation, chronic pain, Hep C. PFSH Medical History Left knee pain Chronic diarrhea Eustachian tube dysfunction Seasonal allergic rhinitis Dyspepsia Anemia Tinea Abdominal wall pain in both lower quadrants Constipation Aftercare following left shoulder joint replacement surgery Preoperative clearance Left lateral epicondylitis Adhesive capsulitis Right wrist sprain Oral lesion Colles' fracture Right wrist pain Left shoulder strain Anxiety Fibromyalgia Sinus drainage Chronic ankle pain, bilateral Rheumatoid arthritis Acute exacerbation of chronic bronchitis Foraminal stenosis of lumbar region Peripheral neuropathy Pneumonia (~2017) Impotence (Unknown) Restless leg syndrome (Unknown) Arthritis (Unknown) Chronic pain syndrome (Unknown) Kidney stones (Unknown) Prostate cancer (Unknown) Skin cancer (Unknown) Hepatitis C (Unknown) Hypertension (Unknown) Migraines (Unknown) PTSD (post-traumatic stress disorder) (Unknown) Depression (Unknown) Surgical History S/P lumbar fusion History of lumbar fusion (05/10/22) History of ankle surgery 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 Social History marital status: household members: spouse lives independently: Yes occupational status: previously employed Smoking Status: Former smoker Tobacco: How many years used: 20 quit status: has quit before alcohol intake: former substance use type: former substance user and marijuana Meds Home Medications and Allergies Home Medications Medication Instructions Recorded Confirmed Type Disabled Parking Permit 1 % SEEINSTR 11/08/20 01/14/24 History albuterol sulfate 2.5 mg/3 mL 2.5 mg (3 mL) continuous 10/24/22 01/14/24 Rx (0.083 %) solution for nebulization nebulization Q6HP PRN shortness of breath or wheezing #360 mL amlodipine 5 mg tablet 5 mg PO DAILY 11/08/22 02/02/24 History hydrochlorothiazide 25 mg tablet 12.5 mg PO QAM 11/15/22 02/02/24 History albuterol sulfate 90 mcg/actuation 1 inh inhalation Q4-6H PRN 12/27/22 01/14/24 Rx aerosol inhaler shortness of breath #18 grams omeprazole 40 mg capsule,delayed 40 mg PO DAILY #90 caps 01/01/23 01/14/24 Rx release lidocaine 5 % topical patch 2 patch topical DAILY #30 ea 01/08/23 02/02/24 Rx potassium chloride 20 mEq 20 meq PO BID #10 tabs 02/26/23 01/14/24 Rx tablet,extended release ipratropium 0.5 mg-albuterol 3 mg 3 ml inhalation Q6H PRN shortness 03/19/23 02/02/24 Rx (2.5 mg base)/3 mL nebulization of breath or wheezing #90 mL soln metoprolol succinate 100 mg 100 mg PO DAILY #90 tabs 07/11/23 02/02/24 Rx tablet,extended release 24 hr valacyclovir 1 gram tablet 1,000 mg PO TID #30 tabs 09/02/23 01/14/24 Rx nitroglycerin 0.4 mg sublingual 0.4 mg sublingual Q5M PRN chest 10/03/23 01/14/24 Rx tablet pain #20 tabs fluoxetine 10 mg capsule See Rx Instructions .Route 10/08/23 01/14/24 Rx .COMPLEX #90 caps fluoxetine 20 mg capsule 20 mg PO DAILY #90 caps 10/08/23 01/14/24 Rx ferrous gluconate 324 mg (37.5 mg 324 mg PO DAILY #90 tabs 10/22/23 02/02/24 Rx iron) tablet methocarbamol 750 mg tablet 750 mg PO QID PRN pain, severe #56 11/01/23 02/02/24 Rx tabs sulfasalazine 500 mg tablet 1,000 mg (2 x 500 mg) PO BID #180 11/28/23 02/02/24 Rx tabs prednisone 10 mg tablet 10 mg PO DIRECTED #65 tabs 12/12/23 02/02/24 Rx ascorbic acid (vitamin C) 500 mg 500 mg PO DAILY #90 tabs 12/13/23 02/02/24 Rx tablet cholecalciferol (vitamin D3) 1,250 1,250 mcg PO QWEEK #12 caps 12/13/23 02/02/24 Rx mcg (50,000 unit) capsule ferrous sulfate 325 mg (65 mg 325 mg PO DAILY #90 tabs 12/13/23 02/02/24 Rx iron) tablet (Iron (ferrous sulfate)) nortriptyline 10 mg capsule 10 mg PO BEDTIME #30 caps 12/17/23 01/14/24 Rx ondansetron 8 mg disintegrating 8 mg PO Q8H PRN nausea and 12/17/23 01/14/24 Rx tablet vomiting #30 tabs zolmitriptan 5 mg tablet (Zomig) See Rx Instructions PO .COMPLEX 12/17/23 01/14/24 Rx #10 tabs meclizine 25 mg tablet 25 mg PO TID PRN dizziness #10 tabs 01/23/24 02/02/24 Rx hydromorphone 2 mg tablet 2 mg PO BEDTIME PRN pain #30 tabs 01/31/24 02/02/24 Rx oxycodone 10 mg tablet 10 mg PO Q8H PRN pain #90 tabs 01/31/24 02/02/24 Rx Allergies Allergy/AdvReac Type Severity Reaction Status Date / Time cyclobenzaprine Allergy Severe Dizziness, Verified 01/18/24 18:06 [From Flexeril] I bounce off ag ibuprofen AdvReac Intermediate Redness of Verified 02/02/24 01:13 Skin acetaminophen [ACETAMINOPHEN] AdvReac Unknown Can't take Verified 01/18/24 18:06 r/t Hep C; upset stomach Review of Systems Review of Systems ROS: Yes All systems reviewed with the patient and are negative except as otherwise documented Exam Vital Signs (past 8 hours): - 02/02/24 02:27 02/02/24 02:29 02/02/24 02:29 Temperature Pulse Rate 105 H 100 H Respiratory Rate 23 18 Blood Pressure 144/61 H Pulse Oximetry 95 96 Oxygen Delivery Method Oxygen Flow Rate 02/02/24 02:30 02/02/24 02:30 02/02/24 03:00 Temperature 100.2 F H Pulse Rate 96 H 100 H Respiratory Rate 22 26 H Blood Pressure 141/65 H Pulse Oximetry 96 95 Oxygen Delivery Method Room Air Room Air Oxygen Flow Rate 02/02/24 03:00 02/02/24 03:27 02/02/24 03:30 Temperature Pulse Rate 97 H Respiratory Rate 24 Blood Pressure 135/62 Pulse Oximetry 95 Oxygen Delivery Method Room Air Room Air Oxygen Flow Rate 02/02/24 03:30 02/02/24 03:50 02/02/24 08:24 Temperature 100.3 F H Pulse Rate 97 H 85 Respiratory Rate 18 Blood Pressure 143/65 H 136/61 127/75 Pulse Oximetry 94 Oxygen Delivery Method Oxygen Flow Rate 0 02/02/24 08:24 02/02/24 09:52 Temperature Pulse Rate 85 85 Respiratory Rate Blood Pressure 127/75 Pulse Oximetry Oxygen Delivery Method Oxygen Flow Rate Oxygen Delivery Method Room Air Oxygen Flow Rate 0 Const General: No cooperative, No acute distress and No frail appearing Nutritional Appearance: average body habitus Orientation: alert, awake and oriented x3 HENMT Head: normocephalic and atraumatic Ears: hearing grossly impaired Eyes General: appearance normal, both eyes and all related structures Sclera: sclerae normal Neck Neck: No no meningeal signs and trachea midline Resp Effort & Inspection: normal respiratory effort and able to speak in complete sentences Cardio Rate: regular rate Rhythm: regular rhythm GI Inspection: normal to inspection Palpation: soft, No guarding and tender (mild generalized tenderness) Skin General: atrophy Neuro General: patient alert, patient awake and patient oriented x3 Cognition: normal cognition Psych Mental Status: mental status grossly normal Affect: irritable affect Judgment: fair Other: Stubborn and demanding Objective Labs 02/02/24 01:23 02/02/24 08:25 Labs: Laboratory Results - last 24 hr 02/02/24 02/02/24 02/02/24 01:14 01:23 02:12 WBC 17.3 H RBC 4.01 L Hgb 9.9 L Hct 29.8 L MCV 74.3 L MCH 24.6 L MCHC 33.1 RDW 16.5 H Plt Count 334 Neut % (Auto) 89.9 H Lymph % (Auto) 2.7 L [place] % (Auto) 6.8 Eos % (Auto) 0.2 L Baso % (Auto) 0.4 Neut # (Auto) 96598 H Lymph # (Auto) 500 L [place] # (Auto) 1200 H Eos # (Auto) 0 Baso # (Auto) 100 PT 15.0 H INR 1.3 APTT 34 Sodium 132 L Potassium 3.7 Chloride 99 Carbon Dioxide 27 BUN 15 Creatinine 0.74 Estimated GFR > 60 BUN/Creatinine Ratio 20.3 Glucose 122 H Lactate 1.5 Calcium 8.8 Magnesium Total Bilirubin 0.8 AST 41 ALT 28 Alkaline Phosphatase 80 Total Creatine Kinase 61 Troponin I 0.038 H NT-Pro-B Natriuret Pep 542 H Total Protein 7.5 Albumin 4.1 Globulin 3.4 Albumin/Globulin Ratio 1.2 Lipase 21 L Procalcitonin 0.37 Urine Color Urine Appearance Urine pH Ur Specific [place] Urine Protein Urine Glucose (UA) Urine Ketones Urine Occult Blood Urine Nitrate Urine Bilirubin Ur Bilirubin Confirm Urine Urobilinogen Ur Leukocyte Esterase Urine RBC Urine WBC Ur Squamous Epith Cells Urine Bacteria Ur Culture Indicated? Vol Urine Centrifuged Chlamy pneumoniae PCR Not detected Adenovirus (PCR) Not detected B.parapertussis DNA PCR Not detected Coronavirus OC43 (PCR) Not detected Coronavirus HKU1 (PCR) Not detected Coronavirus 229E (PCR) Not detected SARS-CoV-2 (PCR) Not detected Coronavirus NL63 (PCR) Not detected Human Metapneumovir PCR Not detected Influenza Type A (PCR) Not detected Influenza Type B (PCR) Not detected M. pneumoniae (PCR) Not detected Parainfluenza 1 (PCR) Not detected Parainfluenza 2 (PCR) Not detected Parainfluenza 3 (PCR) Not detected Parainfluenza 4 (PCR) Not detected RSV (PCR) Not detected Entero/Rhino (PCR) Not detected 02/02/24 02/02/24 02:30 08:25 WBC RBC Hgb Hct MCV MCH MCHC RDW Plt Count Neut % (Auto) Lymph % (Auto) [place] % (Auto) Eos % (Auto) Baso % (Auto) Neut # (Auto) Lymph # (Auto) [place] # (Auto) Eos # (Auto) Baso # (Auto) PT INR APTT Sodium 132 L Potassium 3.4 Chloride 102 Carbon Dioxide 28 BUN 15 Creatinine 0.71 Estimated GFR > 60 BUN/Creatinine Ratio 21.1 Glucose 94 Lactate Calcium 7.8 L Magnesium 1.8 Total Bilirubin 0.8 AST 32 ALT 22 Alkaline Phosphatase 64 Total Creatine Kinase Troponin I NT-Pro-B Natriuret Pep Total Protein 5.9 L Albumin 3.1 L Globulin 2.8 Albumin/Globulin Ratio 1.1 Lipase Procalcitonin Urine Color Yellow Urine Appearance Clear Urine pH 5.5 Ur Specific [place] 1.020 Urine Protein Trace H Urine Glucose (UA) Negative Urine Ketones 1+ H Urine Occult Blood Negative Urine Nitrate Negative Urine Bilirubin 1+ H Ur Bilirubin Confirm Negative Urine Urobilinogen 0.2 Ur Leukocyte Esterase Negative Urine RBC None seen Urine WBC None seen Ur Squamous Epith Cells 0-1 /hpf Urine Bacteria None seen Ur Culture Indicated? Cult not indicated Vol Urine Centrifuged 10ml (spun) Chlamy pneumoniae PCR Adenovirus (PCR) B.parapertussis DNA PCR Coronavirus OC43 (PCR) Coronavirus HKU1 (PCR) Coronavirus 229E (PCR) SARS-CoV-2 (PCR) Coronavirus NL63 (PCR) Human Metapneumovir PCR Influenza Type A (PCR) Influenza Type B (PCR) M. pneumoniae (PCR) Parainfluenza 1 (PCR) Parainfluenza 2 (PCR) Parainfluenza 3 (PCR) Parainfluenza 4 (PCR) RSV (PCR) Entero/Rhino (PCR) Assessment & Plan Assessment & Plan narrative: Right sided colitis, infectious most likely. No acute abdomen. Plan: Medical management, antibiotics, hydration, restart diet. Time Spent With Patient Time with patient: less than 30 minutes Quality VTE Deep Vein Thrombosis/Pulmonary Embolism Present on Admission: No
[2024-02-02 10:49] LABS: Add Manual Diff / Slide Review NO; Basophils Absolute Auto 0 /uL (0-100); Basophils Percent Auto 0.4 % (0-2); Eosinophils Absolute Auto 100 /uL (0-450); Eosinophils Percent Auto 0.7 % (2-4); Hemoglobin 8.3 g/dL (13.5-17.5); Lymphocytes Absolute Auto 900 /uL (1100-4500); Lymphocytes Percent Auto 6.9 % (25-40); Mean Corpuscular HGB Conc 33.3 % (30-36); Mean Corpuscular Hemoglobin 24.7 PG (26-34); Mean Corpuscular Volume 74.2 fL (80-100); Monocytes Absolute Auto 1400 /uL (0-900); Monocytes Percent Auto 11.1 % (3-14); Neutrophils Absolute Auto 10100 /uL (1500-7000); Neutrophils Percent Auto 80.9 % (50-75); Platelet Count 243 X10^3/uL (150-400); Red Blood Cell Count 3.36 X10^6/uL (4.5-5.9); Red Cell Distribution Width 16.2 % (11.6-14.8); White Blood Cell Count 12.4 X10^3/uL (4.5-11.0)
--- NOTE | 2024-02-02 11:10 | P.DS_ITS ---
History of Present Illness <Maylin Pike Last Filed: 02/02/24 11:20> History of Present Illness Chief complaint: n/v 2days Narrative: Reported to me 4 days of discomfort with progressive diarrhea, vomiting, right sided abdominal pain. No exposure to others that are ill. Now on antibiotics and the diarrhea has stopped. I am plugged now. H/o chronic diarrhea and constipation, chronic pain, Hep C. <Grabiel Valle DO - Last Filed: 02/02/24 11:30> History of Present Illness Narrative: 78 years old male with history of seropositive rheumatoid arthritis in multiple joints on steroids, hep C, coronary artery disease, hypertension, chronic migraine, asthma, presented to the ER with fever, diffuse abdominal pain, nausea vomiting and diarrhea in the last couple of days. He also reports some joint pain and muscle pain requiring pain medications. He had 3-4 bowel movements per day with loose stools. Denies any hematemesis or melena. Denies any chest pain, palpitations or dysuria. Laboratory shows WBC 17, procalcitonin 0.37, normal lactic acid, sodium 132, potassium 3.7, creatinine 0.74, blood sugar 122, LFT negative, troponin undetermined, BNP 542. Respiratory panel negative, UA negative, chest x-ray negative. EKG shows sinus tachycardia. CT of the abdomen shows wall thickening of ascending and proximal transverse colon suspected pneumatosis cecum and proximal ascending portion of the colon. He was given fluid bolus, Toradol and Zosyn. Surgery was consulted over the phone and will see the patient in the morning. Discharge Providers <Maylin Lucas Filed: 02/02/24 11:20> Provider Date of admission: 02/02/24 03:24 Primary care physician: Edilberto Snell DO Consults: 02/02/24 10:09 Consult to Physical Therapy Evaluate & Treat Comment: Physician Instructions: Evaluate and Treat Discharge provider: Maylin Rosario <Grabiel Valle DO - Last Filed: 02/02/24 11:30> Provider Discharge Date: 02/02/24 Summary <Maylin Lucas Filed: 02/02/24 11:20> Hospital Course Discharge Diagnosis: Right sided colitis, infectious most likely. No acute abdomen. Plan: Medical management, antibiotics, hydration, restart diet Hospital Course: pt was admitted due to nasuea, vomiting and diarrhea. His CT scan showed colitis with pneumatosis. His white count was 17,300 and he had a fever of 101. He was started on zosyn and surgery was consulted. Surgery recommends no intervention at this time. His RA has also flared up during this episode so his prednisone dose was increased to 20mg and he was given pain medication. This morning his white count has decreased to 12,400 and he is afebrile. With surgeon's clearance he can be discharged and begin Augmentin for 1 week. <Grabiel Valle DO - Last Filed: 02/02/24 11:30> Hospital Course Discharge Diagnosis: Acute colitis ascending and proximal transverse colon with pneumatosis. Sepsis. -CT with findings above, patient had diarrhea which then resolved -Started on Zosyn IV -Now tolerating diet -Antiemetics and pain medications as needed -IV fluids -Surgery consulted and recommended abx alone -Hold his hydrochlorothiazide for now Seropositive rheumatoid arthritis. -Increase prednisone to 20 mg daily during hospital stay -Restart his home medications Hypertension. -Restart amlodipine and metoprolol Asthma/COPD. -Restart albuterol and DuoNeb as needed GERD. -Restart omeprazole Chronic anemia. -Restart vitamin C and iron supplement. Hospital Course: Patient was admitted due to nasuea, vomiting and diarrhea. His CT scan showed colitis with pneumatosis. His white count was 17,300 and he had a fever of 101. He was started on zosyn and surgery was consulted. Surgery recommended no intervention at this time. His RA has also flared up during this episode so his prednisone dose was increased to 20mg and he was given pain medication. This morning his white count has decreased to 12,400 and he is afebrile. With surgeon's clearance he was discharged and started Augmentin for 1 week. Exam <Maylin Rosario - Last Filed: 02/02/24 11:20> Vital Signs (past 8 hours): - 02/02/24 03:27 02/02/24 03:30 02/02/24 03:30 Temperature Pulse Rate 97 H Respiratory Rate 24 Blood Pressure 143/65 H Pulse Oximetry 95 Oxygen Delivery Method Room Air Room Air Oxygen Flow Rate 02/02/24 03:50 02/02/24 08:24 02/02/24 08:24 Temperature 100.3 F H Pulse Rate 97 H 85 85 Respiratory Rate 18 Blood Pressure 136/61 127/75 127/75 Pulse Oximetry 94 Oxygen Delivery Method Oxygen Flow Rate 0 02/02/24 09:52 Temperature Pulse Rate 85 Respiratory Rate Blood Pressure Pulse Oximetry Oxygen Delivery Method Oxygen Flow Rate Oxygen Delivery Method Room Air Oxygen Flow Rate 0 Const General: No cooperative, No acute distress and No frail appearing Nutritional Appearance: average body habitus Orientation: alert, awake and oriented x3 HENCA Head: normocephalic and atraumatic Ears: hearing grossly impaired Eyes General: appearance normal, both eyes and all related structures Sclera: sclerae normal Neck Neck: No no meningeal signs and trachea midline Resp Effort & Inspection: normal respiratory effort and able to speak in complete sentences Cardio Rate: regular rate Rhythm: regular rhythm GI Inspection: normal to inspection Palpation: soft, No guarding and tender (mild generalized tenderness) Skin General: atrophy Neuro General: patient alert, patient awake and patient oriented x3 Cognition: normal cognition Psych Mental Status: mental status grossly normal Affect: irritable affect Judgment: fair Other: Stubborn and demanding Objective <[facility] - Last Filed: 02/02/24 11:20> Labs 02/02/24 08:25 02/02/24 08:25 Labs: Laboratory Results - last 24 hr 02/02/24 02/02/24 02/02/24 01:14 01:23 02:12 WBC 17.3 H RBC 4.01 L Hgb 9.9 L Hct 29.8 L MCV 74.3 L MCH 24.6 L MCHC 33.1 RDW 16.5 H Plt Count 334 Neut % (Auto) 89.9 H Lymph % (Auto) 2.7 L [place] % (Auto) 6.8 Eos % (Auto) 0.2 L Baso % (Auto) 0.4 Neut # (Auto) 47201 H Lymph # (Auto) 500 L [place] # (Auto) 1200 H Eos # (Auto) 0 Baso # (Auto) 100 PT 15.0 H INR 1.3 APTT 34 Sodium 132 L Potassium 3.7 Chloride 99 Carbon Dioxide 27 BUN 15 Creatinine 0.74 Estimated GFR > 60 BUN/Creatinine Ratio 20.3 Glucose 122 H Lactate 1.5 Calcium 8.8 Magnesium Total Bilirubin 0.8 AST 41 ALT 28 Alkaline Phosphatase 80 Total Creatine Kinase 61 Troponin I 0.038 H NT-Pro-B Natriuret Pep 542 H Total Protein 7.5 Albumin 4.1 Globulin 3.4 Albumin/Globulin Ratio 1.2 Lipase 21 L Procalcitonin 0.37 Urine Color Urine Appearance Urine pH Ur Specific [place] Urine Protein Urine Glucose (UA) Urine Ketones Urine Occult Blood Urine Nitrate Urine Bilirubin Ur Bilirubin Confirm Urine Urobilinogen Ur Leukocyte Esterase Urine RBC Urine WBC Ur Squamous Epith Cells Urine Bacteria Ur Culture Indicated? Vol Urine Centrifuged Chlamy pneumoniae PCR Not detected Adenovirus (PCR) Not detected B.parapertussis DNA PCR Not detected Coronavirus OC43 (PCR) Not detected Coronavirus HKU1 (PCR) Not detected Coronavirus 229E (PCR) Not detected SARS-CoV-2 (PCR) Not detected Coronavirus NL63 (PCR) Not detected Human Metapneumovir PCR Not detected Influenza Type A (PCR) Not detected Influenza Type B (PCR) Not detected M. pneumoniae (PCR) Not detected Parainfluenza 1 (PCR) Not detected Parainfluenza 2 (PCR) Not detected Parainfluenza 3 (PCR) Not detected Parainfluenza 4 (PCR) Not detected RSV (PCR) Not detected Entero/Rhino (PCR) Not detected 02/02/24 02/02/24 02:30 08:25 WBC 12.4 H RBC 3.36 L Hgb 8.3 L Hct 25.0 L MCV 74.2 L MCH 24.7 L MCHC 33.3 RDW 16.2 H Plt Count 243 Neut % (Auto) 80.9 H Lymph % (Auto) 6.9 L [place] % (Auto) 11.1 Eos % (Auto) 0.7 L Baso % (Auto) 0.4 Neut # (Auto) 73003 H Lymph # (Auto) 900 L [place] # (Auto) 1400 H Eos # (Auto) 100 Baso # (Auto) 0 PT INR APTT Sodium 132 L Potassium 3.4 Chloride 102 Carbon Dioxide 28 BUN 15 Creatinine 0.71 Estimated GFR > 60 BUN/Creatinine Ratio 21.1 Glucose 94 Lactate Calcium 7.8 L Magnesium 1.8 Total Bilirubin 0.8 AST 32 ALT 22 Alkaline Phosphatase 64 Total Creatine Kinase Troponin I 0.040 H NT-Pro-B Natriuret Pep Total Protein 5.9 L Albumin 3.1 L Globulin 2.8 Albumin/Globulin Ratio 1.1 Lipase Procalcitonin Urine Color Yellow Urine Appearance Clear Urine pH 5.5 Ur Specific [place] 1.020 Urine Protein Trace H Urine Glucose (UA) Negative Urine Ketones 1+ H Urine Occult Blood Negative Urine Nitrate Negative Urine Bilirubin 1+ H Ur Bilirubin Confirm Negative Urine Urobilinogen 0.2 Ur Leukocyte Esterase Negative Urine RBC None seen Urine WBC None seen Ur Squamous Epith Cells 0-1 /hpf Urine Bacteria None seen Ur Culture Indicated? Cult not indicated Vol Urine Centrifuged 10ml (spun) Chlamy pneumoniae PCR Adenovirus (PCR) B.parapertussis DNA PCR Coronavirus OC43 (PCR) Coronavirus HKU1 (PCR) Coronavirus 229E (PCR) SARS-CoV-2 (PCR) Coronavirus NL63 (PCR) Human Metapneumovir PCR Influenza Type A (PCR) Influenza Type B (PCR) M. pneumoniae (PCR) Parainfluenza 1 (PCR) Parainfluenza 2 (PCR) Parainfluenza 3 (PCR) Parainfluenza 4 (PCR) RSV (PCR) Entero/Rhino (PCR) [facility] <[facility] - Last Filed: 02/02/24 11:20> Medical History Left knee pain Chronic diarrhea Eustachian tube dysfunction Seasonal allergic rhinitis Dyspepsia Anemia Tinea Abdominal wall pain in both lower quadrants Constipation Aftercare following left shoulder joint replacement surgery Preoperative clearance Left lateral epicondylitis Adhesive capsulitis Right wrist sprain Oral lesion Colles' fracture Right wrist pain Left shoulder strain Anxiety Fibromyalgia Sinus drainage Chronic ankle pain, bilateral Rheumatoid arthritis Acute exacerbation of chronic bronchitis Foraminal stenosis of lumbar region Peripheral neuropathy Pneumonia (~2018) Impotence (Unknown) Restless leg syndrome (Unknown) Arthritis (Unknown) Chronic pain syndrome (Unknown) Kidney stones (Unknown) Prostate cancer (Unknown) Skin cancer (Unknown) Hepatitis C (Unknown) Hypertension (Unknown) Migraines (Unknown) PTSD (post-traumatic stress disorder) (Unknown) Depression (Unknown) Surgical History S/P lumbar fusion History of lumbar fusion (05/10/22) History of ankle surgery 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 Social History marital status: household members: spouse lives independently: Yes occupational status: previously employed Smoking Status: Former smoker Tobacco: How many years used: 20 quit status: has quit before alcohol intake: former substance use type: former substance user and marijuana Discharge Plan Discharge Plan Patient Disposition: Home Provider Discharge Comment: Please take twice daily augmentin for 1 week to treat your colitis. Discharge orders & Medications Prescriptions: New amoxicillin-pot clavulanate 875-125 mg tablet 1 tab PO BID 7 Days Qty: 14 0RF Continued albuterol sulfate 2.5 mg /3 mL (0.083 %) solution for nebulization 2.5 mg Continuous Nebulization Q6HP PRN (Reason: shortness of breath or wheezing) Qty: 360 2RF albuterol sulfate 90 mcg/actuation HFA aerosol inhaler 1 inh INHALATION Q4-6H PRN (Reason: shortness of breath) Qty: 18 4RF omeprazole 40 mg capsule,delayed release(DR/EC) 40 mg PO DAILY Qty: 90 3RF Rx Instructions: take 1 capsule by mouth once daily lidocaine 5 % adhesive patch,medicated 2 patch topical DAILY Qty: 30 1RF Rx Instructions: leave on most painful area for up to 12 hrs metoprolol succinate 100 mg tablet extended release 24 hr 100 mg PO DAILY Qty: 90 1RF nitroglycerin 0.4 mg tablet, sublingual 0.4 mg sublingual Q5M PRN (Reason: chest pain) Qty: 20 1RF Rx Instructions: do not exceed 3 doses per episode fluoxetine 10 mg capsule See Rx Instructions .ROUTE .COMPLEX Qty: 90 3RF Dose Instruction: take 1 capsule by mouth once daily WITH 20MG CAP DAILY TOTAL 30 MG DAILY Rx Instructions: take 1 capsule by mouth once daily WITH 20MG CAP DAILY TOTAL 30 MG DAILY fluoxetine 20 mg capsule 20 mg PO DAILY Qty: 90 3RF Rx Instructions: Take with 10 mg to complete 30 mg dose methocarbamol 750 mg tablet 750 mg PO QID PRN (Reason: pain, severe) Qty: 56 0RF sulfasalazine 500 mg tablet 1,000 mg PO BID Qty: 180 1RF cholecalciferol (vitamin D3) 1,250 mcg (50,000 unit) capsule 1,250 mcg PO QWEEK Qty: 12 0RF ferrous sulfate [Iron (ferrous sulfate)] 325 mg (65 mg iron) tablet 325 mg PO DAILY Qty: 90 0RF Rx Instructions: Take with Vitamin C ascorbic acid (vitamin C) 500 mg tablet 500 mg PO DAILY Qty: 90 0RF Rx Instructions: Take with iron oxycodone 10 mg tablet 10 mg PO Q8H PRN (Reason: pain) Qty: 90 0RF Rx Instructions: MAY REFILL ON DEC 02, 2023 hydromorphone 2 mg tablet 2 mg PO BEDTIME PRN (Reason: pain) Qty: 30 0RF Rx Instructions: May refill on Dec 02, 2023 prednisone 10 mg tablet 10 mg PO DIRECTED Qty: 65 0RF Rx Instructions: Start with 60 mg daily divided bid and reduce by 10mg every 3 days ferrous gluconate 324 mg (37.5 mg iron) tablet 324 mg PO DAILY Qty: 90 2RF Rx Instructions: start taking daily, with food or juice nortriptyline 10 mg capsule 10 mg PO BEDTIME Qty: 30 1RF ondansetron 8 mg tablet,disintegrating 8 mg PO Q8H PRN (Reason: nausea and vomiting) Qty: 30 1RF zolmitriptan [Zomig] 5 mg tablet See Rx Instructions PO .COMPLEX Qty: 10 1RF Rx Instructions: take 1 tab at onset of headache; if no relief, may repeat 1 tab after at least 2 hrs; max = 2 tabs/24 hrs PO potassium chloride 20 mEq tablet extended release 20 meq PO BID Qty: 10 0RF valacyclovir 1 gram tablet 1,000 mg PO TID Qty: 30 0RF meclizine 25 mg tablet 25 mg PO TID PRN (Reason: dizziness) Qty: 10 0RF Disabled Parking Permit 1 1 % SEEINSTR Rx Instructions: Valid for 5 years amlodipine 5 mg tablet 5 mg PO DAILY Patient Comments: pt received dose in hospital 11/10/19 early AM admit to hydrochlorothiazide 25 mg tablet 12.5 mg PO QAM ipratropium-albuterol 0.5 mg-3 mg(2.5 mg base)/3 mL solution for nebulization 3 ml inhalation Q6H PRN (Reason: shortness of breath or wheezing) Qty: 90 0RF Follow up/Referrals: Edilberto Snell DO [Primary Care Provider] - 2 Weeks Visit Report/Discharge Packet Instructions: Amoxicillin Stand Alone Forms: Patient Portal/API, Stroke Signs & Symptoms Discharge Data Primary Care Provider: Edilberto Snell Quality <[facility] - Last Filed: 02/02/24 11:20> VTE Deep Vein Thrombosis/Pulmonary Embolism Present on Admission: No
--- NOTE | 2024-02-02 11:12 | PT.IIE ---
Surgical History (Last Reviewed 02/02/24 @ 01:20 by Carie Escalante DO) History of ankle surgery History of back surgery History of carpal tunnel repair History of lumbar fusion History of lumbar fusion (05/10/22) History of prosthetic unicompartmental arthroplasty of right knee History of tonsillectomy History of total replacement of right shoulder joint Hx of foot surgery Hx of laminectomy (10/2012) S/P lumbar fusion Status post cholecystectomy Status post knee surgery Medical History (Last Reviewed 02/02/24 @ 01:20 by Carie Escalante DO) Abdominal wall pain in both lower quadrants Acute exacerbation of chronic bronchitis Adhesive capsulitis Aftercare following left shoulder joint replacement surgery Anemia Anxiety Arthritis (Unknown) Chronic ankle pain, bilateral Chronic diarrhea Chronic pain syndrome (Unknown) Colles' fracture Constipation Depression (Unknown) Dyspepsia Eustachian tube dysfunction Fibromyalgia Foraminal stenosis of lumbar region Hepatitis C (Unknown) Hypertension (Unknown) Impotence (Unknown) Kidney stones (Unknown) Left knee pain Left lateral epicondylitis Left shoulder strain Migraines (Unknown) Oral lesion Peripheral neuropathy Pneumonia (~2017) Preoperative clearance Prostate cancer (Unknown) PTSD (post-traumatic stress disorder) (Unknown) Restless leg syndrome (Unknown) Rheumatoid arthritis Right wrist pain Right wrist sprain Seasonal allergic rhinitis Sinus drainage Skin cancer (Unknown) Tinea Physical Therapy Inpatient Evaluation/Re-Eval M1 PT/OT-IP Prior Functional Status Start: 02/02/24 10:16 Freq: NEEDED Status: Active Protocol: Document 02/02/24 10:42 MB (Rec: 02/02/24 11:12 JOSEF [id number]) Medical Review Prior Functional Status Medical History Reviewed Yes Diet/Fluid Consistency Regular Communication WNLs, pt is [place] Mobility and Gait I to mod I with cane or RW Activities of Daily Living and IADL's Mod I with use of hand candy dipper, increased time Social History Household Members spouse Living Arrangements House Number of Floors (Floors) One Floor Number of Stairs To Enter/Railing? Ramped entrance Home Environment Standard Height Toilet,Walk in Shower,Built-In Shower Seat Home Equipment Front Wheel Walker,Straight Cane,Hand Held Shower,Discharge Planner, Grab Bars Near Toilet,Grab Bars In Shower Employment Status Retired M2 PT-IP Current Condition Start: 02/02/24 10:16 Freq: NEEDED Status: Active Protocol: Document 02/02/24 10:42 MB (Rec: 02/02/24 11:12 MB [id number]) Physical Therapy Current Condition Current Condition Evaluation Date 02/02/24 Treatment Diagnosis N/V M3 PT-IP Subjective Start: 02/02/24 10:16 Freq: NEEDED Status: Active Protocol: Document 02/02/24 10:42 MB (Rec: 02/02/24 11:12 MB [id number]) Subjective Physical Therapy Visit Type Type Initial Evaluation Visit Start Time 10:42 Visit Stop Time 10:59 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 Therapy Pain Assessment Pain When Pain Assessed At Rest Pain Present Pain Present Pain Reported Location Generalized Intensity 9 Scale Used Numeric (0 - 10) Pain Behaviors Calling Out,Crying,Facial Grimacing,Guarding,Holding Area,Moaning Pain Management Techniques Apply Cold,Distraction, Modification of Treatment,Re- positioning,Timing of Activity with Medications M4 PT-IP Mobility and Gait Start: 02/02/24 10:16 Freq: NEEDED Status: Active Protocol: Document 02/02/24 10:42 MB (Rec: 02/02/24 11:12 MB [id number]) PT-Bed Mobility Assessment Supine to Sit Supine to Sit Standby Assistance,1 Person Assistance,Head of Bed Elevated,Bedrails Scooting Scooting to Edge of Bed Standby Assistance PT-Transfer Assessment Sit to and From Stand Sit to and from Stand Standby Assistance,1 Person Assistance,Use of Upper Extremities Equipment Transfer Assistive Device Gait Belt,Front Wheeled Walker Orthotic/Prosthetic Devices or Brace: No Transfers Transfer Destination Chair Transfer Technique Stepping Transfer Ability Level of Assist Standby Assistance,1 Person Assistance,Use of Upper Extremities Comments Mobility Comments Pt moves slowly and rubs his knees and c/o B knee swelling and that his knees are really bothering him today. He pushes walker out in front and pushes up from bed and locked chair Gait Assessment Gait Gait Assistance Required: Standby Assistance Distance (Feet) 1 Able to Maintain Weight Bearing Status Yes During Gait Assistive Devices Assistive Device Gait Belt,Front Wheeled Walker Orthotic/Prosthetic Devices or Brace: No Gait Deviations General Gait Pattern Antalgic,Decreased Stride Length,Decreased Feet Clearance,Festinating,Flexed Trunk,Wide Based Gait Factors Limiting Gait Function Factors Limiting Gait Function Decreased Activity Tolerance, Decreased Strength,Limited Range of Motion,Pain,Poor Balance,Poor Safety Awareness Comments Gait Comments Pt cries out with all mobility and only takes a few steps to the chair today. PT-Balance Assessment Sitting Balance and Reactions Static Sitting Balance Ability Good Dynamic Sitting Balance Ability Good Standing Balance and Reactions Static Standing Balance Ability Fair Dynamic Standing Balance Ability Fair Device Used RW M5 PT-IP Objective Assessments Start: 02/02/24 10:16 Freq: NEEDED Status: Active Protocol: Document 02/02/24 10:42 MB (Rec: 02/02/24 11:12 MB [id number]) Orientation Orientation/Cognition Level of Alertness Alert Orientation Name,Birthday Language Function Ability Hard of Hearing Safety Awareness Decreased Safety Awareness Memory Description No Deficits Noted Gross Range of Motion Upper Extremity ROM Impairments Defer to OT, limited AROM all joints and pt reports RA is bad today Lower Extremity ROM Assessment Bilaterally Impaired Impairments Limited all joints d/t RA flare today and pt is hesitant for any ROM or MMT Strength Upper Extremity Strength Assessment Bilaterally Impaired Lower Extremity Strength Assessment Bilaterally Impaired Comments Strength Comments See ROM comments above M6 PT-IP Treatment Start: 02/02/24 10:16 Freq: NEEDED Status: Active Protocol: Document 02/02/24 10:42 MB (Rec: 02/02/24 11:12 MB [id number]) Physical Therapy Treatment Education Education Provided Safety M7 PT-IP Assessment and Plan Start: 02/02/24 10:16 Freq: NEEDED Status: Active Protocol: Document 02/02/24 10:42 MB (Rec: 02/02/24 11:12 MB [id number]) PT Summary Assessment and Plan Potential Rehabilitation Potential Fair Status of Condition at Evaluation Evolving Summary Impairments Pain,ROM,Strength,Balance,Bed Mobility,Transfers,Gait, Activity Tolerance Progress Towards Goals Slow Progress due to Pain Assessment Summary Pt is a 69 y/o male with reports of 9/10 pain in multiple joints and worse in knees and wrists today. He states today is a bad RA day. He is asking about pain medication and states that he also wants to go home today and PT speaks with benjamin and MD after evaluation. Pt mobilizes in bed with SBA, increased time, HOB increased and use of rail. He has most crying out with WB with standing and preparing to take a few steps with RW to the chair. Left up in chair and encouraged pt to moves his joints gently in sitting. He declines having his legs elevated. Ed pt to use call freeman for nsg help before moving and he verbalizes understanding. Pain is biggest barrier to further mobility assessment today. Goals Bed Mobility Goal Independent Transfer Goal Independent,Front Wheeled Walker Gait Goal Independent,Front Wheel Walker Gait Distance 100 Days to Meet Goals 5 Frequency of Treatment Frequency Of Treatment Once a Day Treatment Plan Physical Therapy Treatment Plan Bed Mobility Training,Transfer Training,Gait Training, Therapeutic Exercise,Balance Retraining,Discharge Planning, Hot or Cold Pack,Neuromuscular Re-ed,Coordination Retraining ,Manual Therapy Precautions Other Precautions Contact concern for possible c -diff, falls, high pain Weight Bearing Status Weight Bearing Status Weight Bear as Tolerated Recommendations To Nursing Amount of Assist Needed 1 Person Assist Discharge Recommendations PT Discharge Recommendations Home with 24/ Assist Available Transportation Needs at Discharge Private Vehicle
--- NOTE | 2024-02-02 12:29 | CM.DANOTE ---
Patient is a 78 yo male who was admitted INPT on 02/02/24 early today for Acute Colitis. Pt has MCR and PRE DIM for insurance and his PCP is Dr. Edilberto Snell. EMR was reviewed. Per MD, pt with hx of rheumatoid arthritis, Hep C and admitted for abdominal pain with n/v and Acute Colitis with fever and increased white count. Per Surgeon Consult, plan is conservative tx with abx and hydration and can have general diet. No surgical intervention at this time as pt has had formed stool. Per MD, pt improved faster than anticipated and medically stable to d/c home today on po meds. Per PT, pt having pain due to bad rheumatoid arthritis flare today which limited his mobility but recommending home with spouse assist and pt could benefit from outpt PT. SW met bedside with pt and explained role and he confirms he lives in [place] with his and is mostly independent with ADLs unless he is having increased pain from RA and less mobile during those times. Pt has a cane for mobility and sometimes uses a walker. Pt denies any hx of HH or SNF in the past few years and states he would like outpt PT and requesting list of local [place] PT clinics. Pt denies any further discharge needs at this time and preference is home today and confirms his spouse is on her way into the hospital to provide transport home. SW printed list of outpt PT clinics in [place] and updated RN. Plan: Patient to discharge home today via spouse POV and outpt PT clinics provided and no further SW needs at this time. ROLAND Ravi Discharge Planning/Care Management CM Discharge Assessment Start: 02/02/24 12:27 Freq: Status: Active Protocol: Document 02/02/24 12:27 BF (Rec: 02/02/24 12:29 [id number]) Discharge Planning Assessment Assigned Real Estate Sales Agent ROLAND Solorzano DPOA/Assigned Designee Name informally spouse Lanette Contact Information [phone] Advance Directives? No Advance Directives on File No History Provided By Patient,Significant Other, Medical Record Has Patient been admitted in last 30 No days? Prior Living Arrangements House Household Members spouse Type of transporation used prior to Relies on Others admit Independent with ADL's Yes: mostly unless having RA flareup Is patient alert and oriented? Yes Needs Assistance With Home Chores / Shopping Caregiver for Another No DME Already Rented / Owned Cane Patient/Family Preference OP PT Therapy Barriers to Discharge No Discharge Plan Home Community Services Physical Therapy Transportation Arrangement Spouse Additional Comment Patient agreeable with outpt PT, provided printed list of local PT Whiteboard Updated in Patient Room with Yes name and ext. # of Real Estate Sales Agent Review Status In Process Please Provide Date Initial DC 02/02/24 Assessment Was Performed Next Review Type Continued Stay Review
== END 2024-02-02 12:45 | disposition home or self-care (01) | DRG 872 ==
LOC: ED 03:23 → AC 03:24
PROVIDERS: Student in an Organized Health Care Education/Training Program; Admitting Provider Internal Medicine; Emergency Provider Emergency Medicine; PCP Family Medicine; Referring Provider Emergency Medicine; Visit Provider Internal Medicine
DX: A41.9 Sepsis, unspecified organism (principal); A09 Infectious gastroenteritis and colitis, unspecified; M05.9 Rheumatoid arthritis with rheumatoid factor, unspecified; I10 Essential (primary) hypertension; J44.9 Chronic obstructive pulmonary disease, unspecified; K21.9 Gastro-esophageal reflux disease without esophagitis; D64.89 Other specified anemias; K63.89 Other specified diseases of intestine; Z87.891 Personal history of nicotine dependence; Z79.52 Long term (current) use of systemic steroids
CPT/HCPCS: 36415; 71045; 71260; 74177; 80053; 81001; 82550; 83605; 83690; 83735; 83880; 84145; 84484; 85025; 85610; 85730; 87040; 87633; 93005; 96374; 96375; 97161; 99284; 99285; J1170; J1885; J2543; Q9967

== ENCOUNTER → 2024-02-10 12:46 | Outpatient (CLI) | payer MEDICARE, OTHER, SELFPAY ==
[2024-02-02 03:27] VITALS: BMI 29.4
[2024-02-10 14:31] LABS: HEMOLYSIS 16 (0-50); Iron 47 ug/dL (49-181)
[2024-02-10 14:44] LABS: Percent Iron Saturation 15 % (20-50); Total Iron Binding Capacity 304 ug/dL (261-462); Transferrin 223 mg/dL (206-381)
[2024-02-10 15:21] LABS: Vitamin B12 270 pg/mL (239-931)
== END ==
PROVIDERS: Physician Assistant; PCP Family Medicine; Referring Provider Family Medicine; Visit Provider Family Medicine
DX: E53.8 Deficiency of other specified B group vitamins (principal); F11.20 Opioid dependence, uncomplicated; F19.20 Other psychoactive substance dependence, uncomplicated; K52.9 Noninfective gastroenteritis and colitis, unspecified; E55.9 Vitamin D deficiency, unspecified; D64.9 Anemia, unspecified; R10.13 Epigastric pain; F32.9 Major depressive disorder, single episode, unspecified; M06.9 Rheumatoid arthritis, unspecified; Z98.1 Arthrodesis status
CPT/HCPCS: 36415; 82607; 83540; 83550

== ENCOUNTER → 2024-02-17 11:40 | Outpatient (CLI) | payer MEDICARE, OTHER, SELFPAY ==
[2024-02-02 03:27] VITALS: BMI 29.4
[2024-02-17 13:29] LABS: Alanine Aminotransferase 16 IU/L (<50); Albumin Globulin Ratio 1.4 (1.0-2.8); Alkaline Phosphatase 83 U/L (38-126); Aspartate Aminotransferase 22 IU/L (17-59); BUN Creatinine Ratio 28.6 (6-22); Bilirubin Total 0.3 mg/dL (0.2-1.3); Blood Urea Nitrogen 16 mg/dL (9-20); C-Reactive Protein Quant < 0.5 mg/dL (<1.0); Calcium 8.5 mg/dL (8.4-10.2); Carbon Dioxide 25 mmol/L (22-32); Chloride 106 mmol/L (98-107); Estimated Glomerular Filt Rate > 60 mL/min (>60); Globulin 2.9 g/dL (1.7-4.1); Glucose 125 mg/dL (80-110); HEMOLYSIS 19 (0-50); Potassium 3.6 mmol/L (3.4-5.1); Sodium 139 mmol/L (137-145); Total Protein 6.9 g/dL (6.3-8.2)
[2024-02-17 13:32] LABS: Erythrocyte Sedimentation Rate 19 MM/HR (0-15)
== END ==
PROVIDERS: PCP Family Medicine; Referring Provider Internal Medicine Rheumatology; Visit Provider Internal Medicine Rheumatology
DX: Z11.59 Encounter for screening for other viral diseases (principal); M05.79 Rheumatoid arthritis with rheumatoid factor of multiple sites without organ or systems involvement
CPT/HCPCS: 36415; 80053; 85651; 86140; 86480; 86704

== ENCOUNTER → 2024-03-05 12:37 | Outpatient (CLI) | payer MEDICARE, OTHER, SELFPAY ==
[2024-02-02 03:27] VITALS: BMI 29.4
[2024-03-05 13:40] LABS: Influenza A - CEPHEID Flu A NEGATIVE (NEGATIVE); Influenza B - CEPHEID Flu B NEGATIVE (NEGATIVE); Respiratory Syncytial Virus Negative (Negative)
[2024-03-05 13:41] LABS: COVID-19 CEPHEID 4-PLEX PCR Negative (Negative)
== END ==
PROVIDERS: PCP Family Medicine; Visit Provider Physician Assistant Surgical
DX: R52 Pain, unspecified (principal); R05.9 Cough, unspecified; R50.9 Fever, unspecified
CPT/HCPCS: 0241U

== ENCOUNTER 2024-04-10 19:21 | Emergency (ER) | payer MEDICARE, OTHER, SELFPAY ==
[2024-02-02 03:27] VITALS: BMI 29.4
[2024-04-10 19:22] VITALS: BP 156/87; PULSE 101; RESP 16; TEMP 37.1; O2SAT 97; BMI 28.3
[2024-04-10] MEDS: methocarbamoL 500 MG TABLET 750 MG PO (21:44)
--- NOTE | 2024-04-10 22:16 | ED.BACK ---
HPI - Back Pain/Injury General Chief Complaint: Back Pain/Injury Stated Complaint: Ricki, injured back Time Seen by Provider: 04/10/24 21:35 Source: patient History of Present Illness HPI Narrative: 78-year-old male with chronic back pain, numerous prior low back surgeries, was walking down a step, took a step, jolted his back, did not fall, but has upper back discomfort now that is new. No tingling or numbness to his legs, no weakness to his legs. No incontinence to urine or stool. He did not strike his head or neck or extremities, no other areas of discomfort. Denies chest pain or shortness of breath. Related Data Home Medications Medication Instructions Recorded Confirmed Disabled Parking Permit 1 % SEEINSTR 11/08/20 03/05/24 amlodipine 5 mg tablet 5 mg PO DAILY 11/08/22 03/05/24 hydrochlorothiazide 25 mg tablet 12.5 mg PO QAM 11/15/22 03/05/24 Previous Rx's Medication Instructions Recorded albuterol sulfate 2.5 mg/3 mL 2.5 mg (3 mL) continuous 10/24/22 (0.083 %) solution for nebulization nebulization Q6HP PRN shortness of breath or wheezing #360 mL albuterol sulfate 90 mcg/actuation 1 inh inhalation Q4-6H PRN 12/27/22 aerosol inhaler shortness of breath #18 grams omeprazole 40 mg capsule,delayed 40 mg PO DAILY #90 caps 01/01/23 release lidocaine 5 % topical patch 2 patch topical DAILY #30 ea 01/08/23 potassium chloride 20 mEq 20 meq PO BID #10 tabs 02/26/23 tablet,extended release ipratropium 0.5 mg-albuterol 3 mg 3 ml inhalation Q6H PRN shortness 03/19/23 (2.5 mg base)/3 mL nebulization of breath or wheezing #90 mL soln metoprolol succinate 100 mg 100 mg PO DAILY #90 tabs 07/11/23 tablet,extended release 24 hr valacyclovir 1 gram tablet 1,000 mg PO TID #30 tabs 09/02/23 nitroglycerin 0.4 mg sublingual 0.4 mg sublingual Q5M PRN chest 10/03/23 tablet pain #20 tabs fluoxetine 10 mg capsule See Rx Instructions .Route 10/08/23 .COMPLEX #90 caps fluoxetine 20 mg capsule 20 mg PO DAILY #90 caps 10/08/23 ferrous gluconate 324 mg (37.5 mg 324 mg PO DAILY #90 tabs 10/22/23 iron) tablet sulfasalazine 500 mg tablet 1,000 mg (2 x 500 mg) PO BID #180 11/28/23 tabs ascorbic acid (vitamin C) 500 mg 500 mg PO DAILY #90 tabs 12/13/23 tablet cholecalciferol (vitamin D3) 1,250 1,250 mcg PO QWEEK #12 caps 12/13/23 mcg (50,000 unit) capsule ferrous sulfate 325 mg (65 mg 325 mg PO DAILY #90 tabs 12/13/23 iron) tablet (Iron (ferrous sulfate)) nortriptyline 10 mg capsule 10 mg PO BEDTIME #30 caps 12/17/23 ondansetron 8 mg disintegrating 8 mg PO Q8H PRN nausea and 12/17/23 tablet vomiting #30 tabs zolmitriptan 5 mg tablet (Zomig) See Rx Instructions PO .COMPLEX 12/17/23 #10 tabs meclizine 25 mg tablet 25 mg PO TID PRN dizziness #10 tabs 01/23/24 mecobalamin (vitamin B12) 1,000 1,000 mcg PO DAILY #90 tabs 02/11/24 mcg chewable tablet (B12 Active) benzonatate 200 mg capsule 200 mg PO BID PRN cough #30 caps 03/05/24 ipratropium bromide 21 mcg (0.03 2 spray intranasal BID PRN 03/05/24 %) nasal spray Rhinorrhea #30 mL hydromorphone 2 mg tablet 2 mg PO BEDTIME PRN pain #30 tabs 03/30/24 methocarbamol 750 mg tablet 750 mg PO QID PRN pain, severe #56 04/02/24 tabs oxycodone 10 mg tablet 10 mg PO Q8H PRN pain #90 tabs 04/03/24 methocarbamol 500 mg tablet 500 mg PO TID rhomboid muscle 04/10/24 strain 7 days #21 tabs Allergies Allergy/AdvReac Type Severity Reaction Status Date / Time cyclobenzaprine Allergy Severe Dizziness, Verified 04/10/24 19:30 [From Flexeril] I bounce off ag ibuprofen AdvReac Intermediate Redness of Verified 04/10/24 19:30 Skin acetaminophen [ACETAMINOPHEN] AdvReac Unknown Can't take Verified 04/10/24 19:30 r/t Hep C; upset stomach Review of Systems Review of Systems Narrative: Per HPI Patient History Medical History Left knee pain Chronic diarrhea Eustachian tube dysfunction Seasonal allergic rhinitis Dyspepsia Anemia Tinea Abdominal wall pain in both lower quadrants Constipation Aftercare following left shoulder joint replacement surgery Preoperative clearance Left lateral epicondylitis Adhesive capsulitis Right wrist sprain Oral lesion Colles' fracture Right wrist pain Left shoulder strain Anxiety Fibromyalgia Sinus drainage Chronic ankle pain, bilateral Rheumatoid arthritis Acute exacerbation of chronic bronchitis Foraminal stenosis of lumbar region Peripheral neuropathy Pneumonia (~2017) Impotence (Unknown) Restless leg syndrome (Unknown) Arthritis (Unknown) Chronic pain syndrome (Unknown) Kidney stones (Unknown) Prostate cancer (Unknown) Skin cancer (Unknown) Hepatitis C (Unknown) Hypertension (Unknown) Migraines (Unknown) PTSD (post-traumatic stress disorder) (Unknown) Depression (Unknown) Surgical History S/P lumbar fusion History of lumbar fusion (05/10/22) History of ankle surgery 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 Social History marital status: household members: spouse lives independently: Yes occupational status: previously employed Smoking Status: Former smoker Tobacco: How many years used: 20 quit status: has quit before alcohol intake: former substance use type: former substance user and marijuana Smoking Status: Former smoker tobacco type: cigarettes alcohol intake frequency: holidays/special occasions only Substance Use Type: does not use Exam Narrative Exam Narrative: GENERAL: Well-developed patient, in mild distress. HEAD: Atraumatic. Normocephalic. EYES: Pupils equal round and reactive. Extraocular motions intact. No scleral icterus. No injection or drainage. ENT: Nose without bleeding, purulent drainage. Throat without erythema, tonsillar hypertrophy or exudate. Airway patent. NECK: Trachea midline. Non tender CARDIOVASCULAR: Regular rate and rhythm without murmurs, gallops, or rubs. RESPIRATORY: Clear to auscultation. Breath sounds equal bilaterally. No wheezes, rales, or rhonchi. GASTROINTESTINAL: Abdomen soft, non-tender, nondistended. EXTREMITIES: No edema or joint tenderness. BACK: Well-healed low lumbar spine midline scar, extending to lower thoracic area. No tenderness to mid upper or lower midline thoracic spine, no tenderness paraspinous musculature. No skin rash or vesicles or redness or erythema. NEURO: AOx3. SKIN: No rash or erythema of visible areas Initial Vital Signs Initial Vital Signs: Vital Signs Temperature 98.7 F 04/10/24 19:22 Pulse Rate 101 H 04/10/24 19:22 Respiratory Rate 16 04/10/24 19:22 Blood Pressure 156/87 H 04/10/24 19:22 Pulse Oximetry 97 04/10/24 19:22 Oxygen Delivery Method Room Air 04/10/24 19:22 Course Orders Ordered: Discontinued Medications Hydromorphone HCl (Hydromorphone 1 Mg Inj) 1 mg IM NOW ONE Stop: 04/10/24 23:17 Last Admin: 04/10/24 23:30 Dose: 1 mg Documented By: Methocarbamol (Methocarbamol 500 Mg Tablet) 750 mg PO NOW ONE Stop: 04/10/24 21:39 Last Admin: 04/10/24 21:44 Dose: 750 mg Documented By: HUGH Tramadol HCl (Tramadol 50 Mg Prepack) 1 bottle MISC DIRECTED ONE Stop: 04/10/24 23:16 Last Admin: 04/10/24 23:30 Dose: 1 bottle Documented By: AB Vital Signs Vital signs: Vital Signs - 8 hr 04/10/24 23:24 04/10/24 23:24 04/10/24 23:30 Pulse Rate 90 90 Blood Pressure 146/83 H Pulse Oximetry 96 96 04/10/24 23:30 Pulse Rate Blood Pressure 152/85 H Pulse Oximetry MDM - Back Pain/Injury MDM Narrative Medical decision making narrative: 78-year-old male with chronic back pain, numerous prior lower back surgeries, jolted his upper back with walking when he took a missed step, no blunt trauma, no ground level fall. Not responsive so far to his usual chronic pain medications. He would like pain relief. Nonfocal neuro exam. IM Dilaudid dose, p.o. methocarbamol, prescription for methocarbamol for discharge. Advised recheck with his PCP on Saturday morning. Return precautions discussed. Home with family. Discharge Plan Departure Patient Disposition: Home Clinical Impression: Chronic back pain, Strain of thoracic spine Instructions: DI for Muscle Strain, DI for Back Strain or Sprain Activity Restrictions/Additional Instructions: Chronic low back pain, numerous prior low back surgeries, jolt miss step today causing upper back discomfort, no neurological complications obvious, intramuscular Dilaudid dose given, prescription for muscle relaxant Robaxin to use if needed. Recheck with your regular provider on Saturday. Return to this/nearest emergency department for any change worsening symptoms or any concerns prior Prescriptions: New methocarbamol 500 mg tablet 500 mg PO TID 7 Days Qty: 21 0RF No Action benzonatate 200 mg capsule 200 mg PO BID PRN (Reason: cough) Qty: 30 0RF ipratropium bromide 21 mcg (0.03 %) spray,non-aerosol 2 spray intranasal BID PRN (Reason: Rhinorrhea) Qty: 30 0RF Rx Instructions: administer into each nostril albuterol sulfate 2.5 mg /3 mL (0.083 %) solution for nebulization 2.5 mg Continuous Nebulization Q6HP PRN (Reason: shortness of breath or wheezing) Qty: 360 2RF albuterol sulfate 90 mcg/actuation HFA aerosol inhaler 1 inh INHALATION Q4-6H PRN (Reason: shortness of breath) Qty: 18 4RF omeprazole 40 mg capsule,delayed release(DR/EC) 40 mg PO DAILY Qty: 90 3RF Rx Instructions: take 1 capsule by mouth once daily lidocaine 5 % adhesive patch,medicated 2 patch topical DAILY Qty: 30 1RF Rx Instructions: leave on most painful area for up to 12 hrs metoprolol succinate 100 mg tablet extended release 24 hr 100 mg PO DAILY Qty: 90 1RF nitroglycerin 0.4 mg tablet, sublingual 0.4 mg sublingual Q5M PRN (Reason: chest pain) Qty: 20 1RF Rx Instructions: do not exceed 3 doses per episode fluoxetine 10 mg capsule See Rx Instructions .ROUTE .COMPLEX Qty: 90 3RF Dose Instruction: take 1 capsule by mouth once daily WITH 20MG CAP DAILY TOTAL 30 MG DAILY Rx Instructions: take 1 capsule by mouth once daily WITH 20MG CAP DAILY TOTAL 30 MG DAILY fluoxetine 20 mg capsule 20 mg PO DAILY Qty: 90 3RF Rx Instructions: Take with 10 mg to complete 30 mg dose sulfasalazine 500 mg tablet 1,000 mg PO BID Qty: 180 1RF cholecalciferol (vitamin D3) 1,250 mcg (50,000 unit) capsule 1,250 mcg PO QWEEK Qty: 12 0RF ferrous sulfate [Iron (ferrous sulfate)] 325 mg (65 mg iron) tablet 325 mg PO DAILY Qty: 90 0RF Rx Instructions: Take with Vitamin C ascorbic acid (vitamin C) 500 mg tablet 500 mg PO DAILY Qty: 90 0RF Rx Instructions: Take with iron mecobalamin (vitamin B12) [B12 Active] 1,000 mcg tablet,chewable 1,000 mcg PO DAILY Qty: 90 3RF hydromorphone 2 mg tablet 2 mg PO BEDTIME PRN (Reason: pain) Qty: 30 0RF Rx Instructions: May refill on Dec 02, 2023 methocarbamol 750 mg tablet 750 mg PO QID PRN (Reason: pain, severe) Qty: 56 0RF oxycodone 10 mg tablet 10 mg PO Q8H PRN (Reason: pain) Qty: 90 0RF Rx Instructions: MAY REFILL ON DEC 02, 2023 ferrous gluconate 324 mg (37.5 mg iron) tablet 324 mg PO DAILY Qty: 90 2RF Rx Instructions: start taking daily, with food or juice nortriptyline 10 mg capsule 10 mg PO BEDTIME Qty: 30 1RF ondansetron 8 mg tablet,disintegrating 8 mg PO Q8H PRN (Reason: nausea and vomiting) Qty: 30 1RF zolmitriptan [Zomig] 5 mg tablet See Rx Instructions PO .COMPLEX Qty: 10 1RF Rx Instructions: take 1 tab at onset of headache; if no relief, may repeat 1 tab after at least 2 hrs; max = 2 tabs/24 hrs PO potassium chloride 20 mEq tablet extended release 20 meq PO BID Qty: 10 0RF valacyclovir 1 gram tablet 1,000 mg PO TID Qty: 30 0RF meclizine 25 mg tablet 25 mg PO TID PRN (Reason: dizziness) Qty: 10 0RF Disabled Parking Permit 1 1 % SEEINSTR Rx Instructions: Valid for 5 years amlodipine 5 mg tablet 5 mg PO DAILY Patient Comments: pt received dose in hospital 11/10/19 early AM admit to AC hydrochlorothiazide 25 mg tablet 12.5 mg PO QAM ipratropium-albuterol 0.5 mg-3 mg(2.5 mg base)/3 mL solution for nebulization 3 ml inhalation Q6H PRN (Reason: shortness of breath or wheezing) Qty: 90 0RF Referrals: Edilberto Snell, [Primary Care Provider] - Stand Alone Forms: Patient Portal/API
[2024-04-10 23:24] VITALS: BP 146/83; PULSE 90; O2SAT 96
[2024-04-10 23:30] VITALS: BP 152/85; PULSE 90; O2SAT 96
[2024-04-10] MEDS: HYDROMORPHONE 1 MG INJ IM (23:30)
[2024-04-10] MEDS: TRAMADOL 50 MG PREPACK 1 BOTTLE MISC (23:30)
== END 2024-04-10 23:36 | disposition home or self-care (01) ==
PROVIDERS: Emergency Provider Emergency Medicine; PCP Family Medicine
DX: S39.012A Strain of muscle, fascia and tendon of lower back, initial encounter (principal); X58.XXXA Exposure to other specified factors, initial encounter; Y93.01 Activity, walking, marching and hiking
CPT/HCPCS: 96372; 99283; J1170

== ENCOUNTER 2024-04-17 21:58 | Emergency (ER) | payer MEDICARE, OTHER, SELFPAY ==
[2024-02-02 03:27] VITALS: BMI 29.4
[2024-04-17 22:16] VITALS: BP 195/107; PULSE 95; RESP 16; TEMP 36.8; O2SAT 97; BMI 28.8
[2024-04-18] VITALS (11 sets, daily range): BP systolic 192–204; BP diastolic 77–102; PULSE 81–97; RESP 19–25; O2SAT 96–98
--- NOTE | 2024-04-18 02:15 | PC.NURSE ---
Pt BP noted to have HTN on arrival at room 12. Pt endorsing CP but stating that it is not chest pain. Pt then states that the pain is crossing from one side of his chest to the other. ELVIE Anderson advised. USIV placement needed.
--- NOTE | 2024-04-18 03:31 | DI.RAD.S_ITS ---
PROCEDURE: XR CHEST 1V INDICATIONS: chest pain TECHNIQUE: One view of the chest was acquired. COMPARISON: [facility], CR, XR CHEST 1V, 02/02/2024, 1:21. FINDINGS: Surgical changes and devices: Shoulder arthroplasties Lungs and pleura: Minimal bibasilar opacities the right. Mediastinum: Mediastinal contours appear normal. Heart size is normal. Bones and chest wall: No suspicious bony lesions. Overlying soft tissues appear unremarkable. IMPRESSION: Bibasilar opacities slightly more prominent right base suggestive of dependent change versus developing pneumonia. Dictated by: Kaci Calabrese M.D. on 04/18/2024 at 7:52 Approved by: Kaci Calabrese M.D. on 04/18/2024 at 7:52
[2024-04-18 03:38] LABS: Add Manual Diff / Slide Review NO; Basophils Absolute Auto 100 /uL (0-100); Basophils Percent Auto 1.1 % (0-2); Eosinophils Absolute Auto 200 /uL (0-450); Eosinophils Percent Auto 1.4 % (2-4); Hematocrit 36.1 % (41-53); Hemoglobin 11.9 g/dL (13.5-17.5); Lymphocytes Absolute Auto 2200 /uL (1100-4500); Lymphocytes Percent Auto 18.3 % (25-40); Mean Corpuscular HGB Conc 32.9 % (30-36); Mean Corpuscular Hemoglobin 26.3 PG (26-34); Mean Corpuscular Volume 80.1 fL (80-100); Monocytes Absolute Auto 1200 /uL (0-900); Neutrophils Absolute Auto 8200 /uL (1500-7000); Neutrophils Percent Auto 69.2 % (50-75); Platelet Count 266 X10^3/uL (150-400); Prothrombin Time 11.6 SECONDS (9.4-12.5); Red Blood Cell Count 4.51 X10^6/uL (4.5-5.9); Red Cell Distribution Width 18.5 % (11.6-14.8); White Blood Cell Count 11.9 X10^3/uL (4.5-11.0)
[2024-04-18 03:41] LABS: PTT Partial Thromboplastin Tim 30 SECONDS (25.1-36.5)
[2024-04-18 03:44] LABS: Alanine Aminotransferase 35 IU/L (<50); Albumin 4.1 g/dL (3.5-5.0); Albumin Globulin Ratio 1.3 (1.0-2.8); Alkaline Phosphatase 77 U/L (38-126); Aspartate Aminotransferase 23 IU/L (17-59); Bilirubin Total 0.5 mg/dL (0.2-1.3); Blood Urea Nitrogen 13 mg/dL (9-20); Calcium 8.5 mg/dL (8.4-10.2); Carbon Dioxide 27 mmol/L (22-32); Chloride 105 mmol/L (98-107); Creatine Kinase 39 U/L (55-170); Estimated Glomerular Filt Rate > 60 mL/min (>60); Globulin 3.1 g/dL (1.7-4.1); Glucose 90 mg/dL (80-110); HEMOLYSIS 22 (0-50); Lipase 117 U/L (23-300); Magnesium 2.2 mg/dL (1.6-2.3); Potassium 3.5 mmol/L (3.4-5.1); Sodium 138 mmol/L (137-145); Total Protein 7.2 g/dL (6.3-8.2)
[2024-04-18 03:56] LABS: NT-proBNP (BNP-Adult 18+) 165 pg/mL (<450); Troponin I 0.023 ng/mL (0.01-0.034)
--- NOTE | 2024-04-18 04:01 | EKG_ITS ---
[address] [address] Test Date: 2024-04-18 Pat Name: Barrett Tam Department: Room: Gender: Male Passenger Service Manager: MARLIN : 1945 Requested By: Order Number: [id number] Reading MD: Carlos Aragon Measurements Intervals [place] Rate: 85 P: 31 MN: 150 QRS: 33 QRSD: 84 T: 55 QT: 396 QTc: 471 Interpretive Statements Sinus rhythm with premature supraventricular complexes Increased R/S ratio in V1, consider early transition or posterior infarct Electronically Signed On 04-21-2024 9:00:17 PDT by Carlos Aragon
--- NOTE | 2024-04-18 04:46 | PC.NURSE ---
Addendum entered by Eris Jones R.N. 04/18/24 05:27: Pt yelling in a phone conversation about his wait time. Pt asked if he was staying or leaving. Pt states that he wants to see the [facility] doctor. Pt advised that EMD will be in as soon as possible. Pt reiterates his wait time. This RN asks the pt to remove his IV, so that he could leave. Pt states to this RN If you touch me it'll be the last thing you ever do. Pt advised that verbal abuse will not be tolerated nor will life threats. Pt advised that police will be advised if necessary.More staff to beside after threats. Original Note: Pt yelling in a phone conversation about his wait time. Pt asked if he was staying or leaving. Pt states that he wants to see the [facility] doctor. Pt advised that EMD will be in as soon as possible. Pt reiterates his wait time. This RN asks the pt to remove his IV, pt states If you touch me it'll be the last thing you ever do. Pt advised that verbal abuse will not be tolerated nor will life threats. Pt advised that police will be advised if necessary.More staff to beside after threats.
--- NOTE | 2024-04-18 04:50 | ED.BACK ---
HPI - Back Pain/Injury General Chief Complaint: Back Pain/Injury Stated Complaint: back pain so bad can't hardly breathe Time Seen by Provider: 04/18/24 03:31 Source: patient History of Present Illness HPI Narrative: 78-year-old male with chronic back pain, numerous previous back surgeries, complains of mid upper back pain. Seen by me 04/11/2024 with the same symptoms, treated at that time with IM Dilaudid dose and also prescription for Robaxin. He feels that the muscle relaxant was helpful, but ran out of that medication. No injury or trauma. Denies cough or anterior chest pain. No lifting blunt trauma or new activities. He denies numbness tingling to legs. He denies incontinence urine or stool. He denies painful urination. Denies nausea vomiting, denies loose stools, denies black or red stools. Related Data Home Medications Medication Instructions Recorded Confirmed Disabled Parking Permit 1 % SEEINSTR 11/08/20 03/05/24 amlodipine 5 mg tablet 5 mg PO DAILY 11/08/22 03/05/24 hydrochlorothiazide 25 mg tablet 12.5 mg PO QAM 11/15/22 03/05/24 Previous Rx's Medication Instructions Recorded albuterol sulfate 2.5 mg/3 mL 2.5 mg (3 mL) continuous 10/24/22 (0.083 %) solution for nebulization nebulization Q6HP PRN shortness of breath or wheezing #360 mL albuterol sulfate 90 mcg/actuation 1 inh inhalation Q4-6H PRN 12/27/22 aerosol inhaler shortness of breath #18 grams omeprazole 40 mg capsule,delayed 40 mg PO DAILY #90 caps 01/01/23 release lidocaine 5 % topical patch 2 patch topical DAILY #30 ea 01/08/23 potassium chloride 20 mEq 20 meq PO BID #10 tabs 02/26/23 tablet,extended release ipratropium 0.5 mg-albuterol 3 mg 3 ml inhalation Q6H PRN shortness 03/19/23 (2.5 mg base)/3 mL nebulization of breath or wheezing #90 mL soln metoprolol succinate 100 mg 100 mg PO DAILY #90 tabs 07/11/23 tablet,extended release 24 hr valacyclovir 1 gram tablet 1,000 mg PO TID #30 tabs 09/02/23 nitroglycerin 0.4 mg sublingual 0.4 mg sublingual Q5M PRN chest 10/03/23 tablet pain #20 tabs fluoxetine 10 mg capsule See Rx Instructions .Route 10/08/23 .COMPLEX #90 caps fluoxetine 20 mg capsule 20 mg PO DAILY #90 caps 10/08/23 ferrous gluconate 324 mg (37.5 mg 324 mg PO DAILY #90 tabs 10/22/23 iron) tablet sulfasalazine 500 mg tablet 1,000 mg (2 x 500 mg) PO BID #180 11/28/23 tabs ascorbic acid (vitamin C) 500 mg 500 mg PO DAILY #90 tabs 12/13/23 tablet cholecalciferol (vitamin D3) 1,250 1,250 mcg PO QWEEK #12 caps 12/13/23 mcg (50,000 unit) capsule ferrous sulfate 325 mg (65 mg 325 mg PO DAILY #90 tabs 12/13/23 iron) tablet (Iron (ferrous sulfate)) nortriptyline 10 mg capsule 10 mg PO BEDTIME #30 caps 12/17/23 ondansetron 8 mg disintegrating 8 mg PO Q8H PRN nausea and 12/17/23 tablet vomiting #30 tabs zolmitriptan 5 mg tablet (Zomig) See Rx Instructions PO .COMPLEX 12/17/23 #10 tabs meclizine 25 mg tablet 25 mg PO TID PRN dizziness #10 tabs 01/23/24 mecobalamin (vitamin B12) 1,000 1,000 mcg PO DAILY #90 tabs 02/11/24 mcg chewable tablet (B12 Active) benzonatate 200 mg capsule 200 mg PO BID PRN cough #30 caps 03/05/24 ipratropium bromide 21 mcg (0.03 2 spray intranasal BID PRN 03/05/24 %) nasal spray Rhinorrhea #30 mL hydromorphone 2 mg tablet 2 mg PO BEDTIME PRN pain #30 tabs 03/30/24 methocarbamol 750 mg tablet 750 mg PO QID PRN pain, severe #56 04/02/24 tabs oxycodone 10 mg tablet 10 mg PO Q8H PRN pain #90 tabs 04/03/24 levofloxacin 500 mg tablet 500 mg PO DAILY #10 tabs 04/18/24 methocarbamol 500 mg tablet 500 mg PO TID 14 days #42 tabs 04/18/24 Allergies Allergy/AdvReac Type Severity Reaction Status Date / Time cyclobenzaprine Allergy Severe Dizziness, Verified 04/10/24 19:30 [From Flexeril] I bounce off ag ibuprofen AdvReac Intermediate Redness of Verified 04/10/24 19:30 Skin acetaminophen [ACETAMINOPHEN] AdvReac Unknown Can't take Verified 04/10/24 19:30 r/t Hep C; upset stomach Review of Systems Review of Systems Narrative: per HPI Patient History Medical History Left knee pain Chronic diarrhea Eustachian tube dysfunction Seasonal allergic rhinitis Dyspepsia Anemia Tinea Abdominal wall pain in both lower quadrants Constipation Aftercare following left shoulder joint replacement surgery Preoperative clearance Left lateral epicondylitis Adhesive capsulitis Right wrist sprain Oral lesion Colles' fracture Right wrist pain Left shoulder strain Anxiety Fibromyalgia Sinus drainage Chronic ankle pain, bilateral Rheumatoid arthritis Acute exacerbation of chronic bronchitis Foraminal stenosis of lumbar region Peripheral neuropathy Pneumonia (~2017) Impotence (Unknown) Restless leg syndrome (Unknown) Arthritis (Unknown) Chronic pain syndrome (Unknown) Kidney stones (Unknown) Prostate cancer (Unknown) Skin cancer (Unknown) Hepatitis C (Unknown) Hypertension (Unknown) Migraines (Unknown) PTSD (post-traumatic stress disorder) (Unknown) Depression (Unknown) Surgical History S/P lumbar fusion History of lumbar fusion (05/10/22) History of ankle surgery 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 Social History marital status: household members: spouse lives independently: Yes occupational status: previously employed Smoking Status: Former smoker Tobacco: How many years used: 20 quit status: has quit before alcohol intake: former substance use type: former substance user and marijuana Smoking Status: Former smoker tobacco type: cigarettes alcohol intake frequency: holidays/special occasions only Substance Use Type: does not use Exam Narrative Exam Narrative: GENERAL: Well-developed patient, in mild distress. HEAD: Atraumatic. Normocephalic. EYES: Pupils equal round and reactive. Extraocular motions intact. No scleral icterus. No injection or drainage. ENT: Nose without bleeding, purulent drainage. Throat without erythema, tonsillar hypertrophy or exudate. Airway patent. NECK: Trachea midline. Non tender CARDIOVASCULAR: Regular rate and rhythm without murmurs, gallops, or rubs. RESPIRATORY: Clear to auscultation. Breath sounds equal bilaterally. No wheezes, rales, or rhonchi. GASTROINTESTINAL: Abdomen soft, non-tender, nondistended. EXTREMITIES: No edema or joint tenderness. BACK: Nontender without deformity or crepitance. No flank tenderness. Well-healed scars predominantly low midline lumbar, no tenderness redness or vesicles changes to the upper back, no tenderness paraspinal or midline thoracic or upper lumbar, nor lower lumbar. NEURO: AOx3. SKIN: No rash or erythema of visible areas Initial Vital Signs Initial Vital Signs: Vital Signs Temperature 98.2 F 04/17/24 22:16 Pulse Rate 95 H 04/17/24 22:16 Respiratory Rate 16 04/17/24 22:16 Blood Pressure 195/107 H 04/17/24 22:16 Pulse Oximetry 97 04/17/24 22:16 Oxygen Delivery Method Room Air 04/17/24 22:16 Course Orders Ordered: Discontinued Medications Hydromorphone HCl (Hydromorphone 1 Mg Inj) 1 mg IM NOW ONE Stop: 04/18/24 04:57 Last Admin: 04/18/24 05:02 Dose: 1 mg Documented By: TYLER Methocarbamol (Methocarbamol 500 Mg Tablet) 500 mg PO NOW ONE Stop: 04/18/24 04:53 Last Admin: 04/18/24 05:02 Dose: 500 mg Documented By: TYLER Vital Signs Vital signs: Vital Signs - 8 hr 04/18/24 01:00 04/18/24 01:59 04/18/24 02:00 Pulse Rate 94 H 97 H 88 Respiratory Rate 22 Blood Pressure 204/101 H Pulse Oximetry 96 97 98 Oxygen Delivery Method Room Air Room Air 04/18/24 02:30 04/18/24 02:40 04/18/24 02:40 Pulse Rate 84 82 Respiratory Rate 19 25 H Blood Pressure 192/102 H Pulse Oximetry 98 97 Oxygen Delivery Method 04/18/24 03:00 04/18/24 03:11 04/18/24 03:11 Pulse Rate 83 81 Respiratory Rate 23 23 Blood Pressure 194/77 H Pulse Oximetry 98 96 Oxygen Delivery Method 04/18/24 03:30 04/18/24 03:30 04/18/24 04:00 Pulse Rate 82 87 Respiratory Rate 24 24 Blood Pressure 202/86 H Pulse Oximetry 98 98 Oxygen Delivery Method 04/18/24 04:30 04/18/24 04:31 04/18/24 04:31 Pulse Rate 84 91 H Respiratory Rate 21 25 H Blood Pressure 198/93 H Pulse Oximetry 97 96 Oxygen Delivery Method MDM - Back Pain/Injury Lab Data Attestation: I reviewed the patient's lab results. 04/18/24 03:10 04/18/24 03:10 Labs: Lab Results 04/18/24 Range/Units 03:10 WBC 11.9 H (4.5-11.0) X10^3/uL RBC 4.51 (4.5-5.9) X10^6/uL Hgb 11.9 L (13.5-17.5) g/dL Hct 36.1 L (41-53) % MCV 80.1 (80-100) fL MCH 26.3 (26-34) PG MCHC 32.9 (30-36) % RDW 18.5 H (11.6-14.8) % Plt Count 266 (150-400) X10^3/uL Neut % (Auto) 69.2 (50-75) % Lymph % (Auto) 18.3 L (25-40) % [place] % (Auto) 10.0 (3-14) % Eos % (Auto) 1.4 L (2-4) % Baso % (Auto) 1.1 (0-2) % Neut # (Auto) 8200 H (5050-0810) /uL Lymph # (Auto) 2200 (2529-5896) /uL [place] # (Auto) 1200 H (0-900) /uL Eos # (Auto) 200 (0-450) /uL Baso # (Auto) 100 (0-100) /uL PT 11.6 (9.4-12.5) SECONDS INR 1.0 (0.9-1.3) APTT 30 (25.1-36.5) SECONDS Sodium 138 (137-145) mmol/L Potassium 3.5 (3.4-5.1) mmol/L Chloride 105 (98-107) mmol/L Carbon Dioxide 27 (22-32) mmol/L BUN 13 (9-20) mg/dL Creatinine 0.62 L (0.66-1.25) mg/dL Estimated GFR > 60 (>60) mL/min BUN/Creatinine Ratio 21.0 (6-22) Glucose 90 (80-110) mg/dL Calcium 8.5 (8.4-10.2) mg/dL Magnesium 2.2 (1.6-2.3) mg/dL Total Bilirubin 0.5 (0.2-1.3) mg/dL AST 23 (17-59) IU/L ALT 35 (<50) IU/L Alkaline Phosphatase 77 (38-126) U/L Total Creatine Kinase 39 L (55-170) U/L Troponin I 0.023 (0.01-0.034) ng/mL NT-Pro-B Natriuret Pep 165 (<450) pg/mL Total Protein 7.2 (6.3-8.2) g/dL Albumin 4.1 (3.5-5.0) g/dL Globulin 3.1 (1.7-4.1) g/dL Albumin/Globulin Ratio 1.3 (1.0-2.8) Lipase 117 (23-300) U/L ECG Data Attestation: I personally reviewed and interpreted this ECG as follows: Interpretation: Normal sinus rhythm with premature supraventricular complexes, no obvious ST segment elevation or depression. WI 150, QRS 84, QTC 471. MDM Narrative Medical decision making narrative: 78-year-old male with chronic low back pain, complains of mid upper back pain, worse with inspiration, recent evaluation for similar symptoms 04/11/1994, treated then with IM Dilaudid and prescription for Robaxin. He thought that Robaxin was helpful and would like a refill. History of NSAID allergy noted, we will avoid Toradol for now. IM Dilaudid dose. P.o. methocarbamol dose, prescription sent to his pharmacy. Patient informed he has repeated visits for chronic back pain, emergency department is not appropriate place for management of chronic pain syndromes, this will be the last time I will prescribe opiate pain medication for this indication, and will only prescribe non opiate therapies in the future. This was reflected in his discharge records. Addendum: Late entry, later arriving teleradiology CXR ordered from triage, I had not seen his chest x-ray, he had clear lungs to my exam, no fever and no elevated WBC, no respiratory distress and normal room air saturation. Chest x-ray teleradiology reading, impression: Multifocal bilateral pulmonary infiltrates. Follow up chest radiograph after appropriate treatment to document resolution. See teleradiology report. This likely explains why he has upper back pain and no tenderness on exam. He did not seem to have an oxygen requirement, before or after IM Dilaudid. We will contact patient to let him know of additional chest x-ray finding, could consider COVID testing, and relay need for starting oral antibiotics. I sent e-prescription for antibiotic course to the same pharmacy where his Robaxin was sent, Levaquin 500 mg 1 tablet daily for 10 day course. Patient to be advised to follow up with his regular doctor on Saturday to listen to lungs. ED charge nurse to contact patient with updated information. Discharge Plan Departure Patient Disposition: Home Clinical Impression: Back pain, Chronic back pain, Pneumonia Activity Restrictions/Additional Instructions: Chronic back pain, 2nd visit for similar symptoms after 04/11/2024 when you saw me for the same problem, some reported relief further Robaxin muscle relaxant, refill sent to your pharmacy. Intramuscular Dilaudid dose given again today. This will be the last opiate I will prescribe for you for this chronic back pain problem. Chronic pain should not be managed in the emergency department, and should be managed by your primary care provider or a painter decorator. Follow up with your regular provider for further chronic back pain and otehr chronic pain management. Prescriptions: New methocarbamol 500 mg tablet 500 mg PO TID 14 Days Qty: 42 0RF levofloxacin 500 mg tablet 500 mg PO DAILY Qty: 10 0RF No Action benzonatate 200 mg capsule 200 mg PO BID PRN (Reason: cough) Qty: 30 0RF ipratropium bromide 21 mcg (0.03 %) spray,non-aerosol 2 spray intranasal BID PRN (Reason: Rhinorrhea) Qty: 30 0RF Rx Instructions: administer into each nostril albuterol sulfate 2.5 mg /3 mL (0.083 %) solution for nebulization 2.5 mg Continuous Nebulization Q6HP PRN (Reason: shortness of breath or wheezing) Qty: 360 2RF albuterol sulfate 90 mcg/actuation HFA aerosol inhaler 1 inh INHALATION Q4-6H PRN (Reason: shortness of breath) Qty: 18 4RF omeprazole 40 mg capsule,delayed release(DR/EC) 40 mg PO DAILY Qty: 90 3RF Rx Instructions: take 1 capsule by mouth once daily lidocaine 5 % adhesive patch,medicated 2 patch topical DAILY Qty: 30 1RF Rx Instructions: leave on most painful area for up to 12 hrs metoprolol succinate 100 mg tablet extended release 24 hr 100 mg PO DAILY Qty: 90 1RF nitroglycerin 0.4 mg tablet, sublingual 0.4 mg sublingual Q5M PRN (Reason: chest pain) Qty: 20 1RF Rx Instructions: do not exceed 3 doses per episode fluoxetine 10 mg capsule See Rx Instructions .ROUTE .COMPLEX Qty: 90 3RF Dose Instruction: take 1 capsule by mouth once daily WITH 20MG CAP DAILY TOTAL 30 MG DAILY Rx Instructions: take 1 capsule by mouth once daily WITH 20MG CAP DAILY TOTAL 30 MG DAILY fluoxetine 20 mg capsule 20 mg PO DAILY Qty: 90 3RF Rx Instructions: Take with 10 mg to complete 30 mg dose sulfasalazine 500 mg tablet 1,000 mg PO BID Qty: 180 1RF cholecalciferol (vitamin D3) 1,250 mcg (50,000 unit) capsule 1,250 mcg PO QWEEK Qty: 12 0RF ferrous sulfate [Iron (ferrous sulfate)] 325 mg (65 mg iron) tablet 325 mg PO DAILY Qty: 90 0RF Rx Instructions: Take with Vitamin C ascorbic acid (vitamin C) 500 mg tablet 500 mg PO DAILY Qty: 90 0RF Rx Instructions: Take with iron mecobalamin (vitamin B12) [B12 Active] 1,000 mcg tablet,chewable 1,000 mcg PO DAILY Qty: 90 3RF hydromorphone 2 mg tablet 2 mg PO BEDTIME PRN (Reason: pain) Qty: 30 0RF Rx Instructions: May refill on Dec 02, 2023 methocarbamol 750 mg tablet 750 mg PO QID PRN (Reason: pain, severe) Qty: 56 0RF oxycodone 10 mg tablet 10 mg PO Q8H PRN (Reason: pain) Qty: 90 0RF Rx Instructions: MAY REFILL ON DEC 02, 2023 ferrous gluconate 324 mg (37.5 mg iron) tablet 324 mg PO DAILY Qty: 90 2RF Rx Instructions: start taking daily, with food or juice nortriptyline 10 mg capsule 10 mg PO BEDTIME Qty: 30 1RF ondansetron 8 mg tablet,disintegrating 8 mg PO Q8H PRN (Reason: nausea and vomiting) Qty: 30 1RF zolmitriptan [Zomig] 5 mg tablet See Rx Instructions PO .COMPLEX Qty: 10 1RF Rx Instructions: take 1 tab at onset of headache; if no relief, may repeat 1 tab after at least 2 hrs; max = 2 tabs/24 hrs PO potassium chloride 20 mEq tablet extended release 20 meq PO BID Qty: 10 0RF valacyclovir 1 gram tablet 1,000 mg PO TID Qty: 30 0RF meclizine 25 mg tablet 25 mg PO TID PRN (Reason: dizziness) Qty: 10 0RF Disabled Parking Permit 1 1 % SEEINSTR Rx Instructions: Valid for 5 years amlodipine 5 mg tablet 5 mg PO DAILY Patient Comments: pt received dose in hospital 11/10/19 early AM admit to [facility] hydrochlorothiazide 25 mg tablet 12.5 mg PO QAM ipratropium-albuterol 0.5 mg-3 mg(2.5 mg base)/3 mL solution for nebulization 3 ml inhalation Q6H PRN (Reason: shortness of breath or wheezing) Qty: 90 0RF Referrals: Edilberto Snell DO [Primary Care Provider] - Stand Alone Forms: Patient Portal/API
--- NOTE | 2024-04-18 04:54 | PC.NURSE ---
Pt stripping off all monitoring equipment following a conversation w ELVIE Anderson.
[2024-04-18] MEDS: HYDROMORPHONE 1 MG INJ IM (05:02)
[2024-04-18] MEDS: methocarbamoL 500 MG TABLET PO (05:02)
--- NOTE | 2024-04-18 05:42 | PC.NURSE ---
Left message for pt to call back regarding results. Per verbal confirmation from provider pt has Pneumonia and he will send antibiotics to [facility] to be picked up later with his Tkaxin.
== END 2024-04-18 05:09 | disposition home or self-care (01) ==
PROVIDERS: Emergency Provider Emergency Medicine; PCP Family Medicine
DX: J18.9 Pneumonia, unspecified organism (principal); M54.6 Pain in thoracic spine; R07.9 Chest pain, unspecified; Z79.899 Other long term (current) drug therapy
CPT/HCPCS: 36415; 71045; 80053; 82550; 83690; 83735; 83880; 84484; 85025; 85610; 85730; 93005; 96372; 99284; J1170

== ENCOUNTER 2024-05-09 21:07 | Emergency (ER) | payer MEDICARE, OTHER, SELFPAY ==
[2024-02-02 03:27] VITALS: BMI 29.4
[2024-05-09] VITALS (9 sets, daily range): BP systolic 165–228; BP diastolic 78–104; PULSE 75–91; RESP 18; TEMP 35.7–36.9; O2SAT 96–98; BMI 31.0
[2024-05-09 22:27] LABS: Add Manual Diff / Slide Review NO; Basophils Absolute Auto 100 /uL (0-100); Eosinophils Absolute Auto 200 /uL (0-450); Eosinophils Percent Auto 2.9 % (2-4); Hemoglobin 10.8 g/dL (13.5-17.5); Lymphocytes Absolute Auto 1200 /uL (1100-4500); Lymphocytes Percent Auto 15.7 % (25-40); Mean Corpuscular HGB Conc 33.8 % (30-36); Mean Corpuscular Hemoglobin 27.1 PG (26-34); Mean Corpuscular Volume 80.2 fL (80-100); Monocytes Absolute Auto 1000 /uL (0-900); Monocytes Percent Auto 12.6 % (3-14); Neutrophils Absolute Auto 5200 /uL (1500-7000); Neutrophils Percent Auto 67.8 % (50-75); Platelet Count 249 X10^3/uL (150-400); Red Blood Cell Count 3.99 X10^6/uL (4.5-5.9); Red Cell Distribution Width 16.9 % (11.6-14.8); White Blood Cell Count 7.7 X10^3/uL (4.5-11.0)
--- NOTE | 2024-05-09 22:27 | ED.BACK ---
HPI - Back Pain/Injury General Chief Complaint: Back Pain/Injury Stated Complaint: pain in back on left side and rib cage Time Seen by Provider: 05/09/24 21:22 Source: patient Mode of arrival: Ambulatory Limitations: no limitations History of Present Illness HPI Narrative: Patient is a 78-year-old male. Has been seen multiple times in this emergency department for chronic pain issues. Is here for evaluation of pain on his left flank, left side and under his left rib cage. Somewhat worse with palpation and movement. No urinary symptoms. No history of kidney stones. No change in bowel habits. No vomiting. No fevers. Related Data Home Medications Medication Instructions Recorded Confirmed Disabled Parking Permit 1 % SEEINSTR 11/08/20 04/30/24 amlodipine 5 mg tablet 5 mg PO DAILY 11/08/22 04/30/24 hydrochlorothiazide 25 mg tablet 12.5 mg PO QAM 11/15/22 04/30/24 Previous Rx's Medication Instructions Recorded albuterol sulfate 2.5 mg/3 mL 2.5 mg (3 mL) continuous 10/24/22 (0.083 %) solution for nebulization nebulization Q6HP PRN shortness of breath or wheezing #360 mL albuterol sulfate 90 mcg/actuation 1 inh inhalation Q4-6H PRN 12/27/22 aerosol inhaler shortness of breath #18 grams omeprazole 40 mg capsule,delayed 40 mg PO DAILY #90 caps 01/01/23 release lidocaine 5 % topical patch 2 patch topical DAILY #30 ea 01/08/23 potassium chloride 20 mEq 20 meq PO BID #10 tabs 02/26/23 tablet,extended release ipratropium 0.5 mg-albuterol 3 mg 3 ml inhalation Q6H PRN shortness 03/19/23 (2.5 mg base)/3 mL nebulization of breath or wheezing #90 mL soln valacyclovir 1 gram tablet 1,000 mg PO TID #30 tabs 09/02/23 nitroglycerin 0.4 mg sublingual 0.4 mg sublingual Q5M PRN chest 10/03/23 tablet pain #20 tabs ferrous gluconate 324 mg (37.5 mg 324 mg PO DAILY #90 tabs 10/22/23 iron) tablet sulfasalazine 500 mg tablet 1,000 mg (2 x 500 mg) PO BID #180 11/28/23 tabs ascorbic acid (vitamin C) 500 mg 500 mg PO DAILY #90 tabs 12/13/23 tablet cholecalciferol (vitamin D3) 1,250 1,250 mcg PO QWEEK #12 caps 12/13/23 mcg (50,000 unit) capsule nortriptyline 10 mg capsule 10 mg PO BEDTIME #30 caps 12/17/23 ondansetron 8 mg disintegrating 8 mg PO Q8H PRN nausea and 12/17/23 tablet vomiting #30 tabs zolmitriptan 5 mg tablet (Zomig) See Rx Instructions PO .COMPLEX 12/17/23 #10 tabs meclizine 25 mg tablet 25 mg PO TID PRN dizziness #10 tabs 01/23/24 mecobalamin (vitamin B12) 1,000 1,000 mcg PO DAILY #90 tabs 02/11/24 mcg chewable tablet (B12 Active) ipratropium bromide 21 mcg (0.03 2 spray intranasal BID PRN 03/05/24 %) nasal spray Rhinorrhea #30 mL methocarbamol 750 mg tablet 750 mg PO QID PRN pain, severe #56 04/02/24 tabs fluoxetine 10 mg capsule See Rx Instructions .Route 04/20/24 .COMPLEX #90 caps fluoxetine 20 mg capsule 20 mg PO DAILY #90 caps 04/20/24 metoprolol succinate 100 mg 100 mg PO DAILY #90 tabs 04/20/24 tablet,extended release 24 hr hydromorphone 2 mg tablet 2 mg PO BEDTIME PRN pain #30 tabs 04/28/24 oxycodone 10 mg tablet 10 mg PO Q8H PRN pain #90 tabs 04/28/24 Allergies Allergy/AdvReac Type Severity Reaction Status Date / Time cyclobenzaprine Allergy Severe Dizziness, Verified 04/30/24 14:14 [From Flexeril] I bounce off ag ibuprofen AdvReac Intermediate Redness of Verified 04/30/24 14:14 Skin acetaminophen [ACETAMINOPHEN] AdvReac Unknown Can't take Verified 04/30/24 14:14 r/t Hep C; upset stomach Review of Systems Review of Systems Narrative: See HPI Gastrointestinal Gastrointestinal: Reports system reviewed and no additional complaints, except as documented Patient History Medical History Left knee pain Chronic diarrhea Eustachian tube dysfunction Seasonal allergic rhinitis Dyspepsia Anemia Tinea Abdominal wall pain in both lower quadrants Constipation Aftercare following left shoulder joint replacement surgery Preoperative clearance Left lateral epicondylitis Adhesive capsulitis Right wrist sprain Oral lesion Colles' fracture Right wrist pain Left shoulder strain Anxiety Fibromyalgia Sinus drainage Chronic ankle pain, bilateral Rheumatoid arthritis Acute exacerbation of chronic bronchitis Foraminal stenosis of lumbar region Peripheral neuropathy Pneumonia (~2018) Impotence (Unknown) Restless leg syndrome (Unknown) Arthritis (Unknown) Chronic pain syndrome (Unknown) Kidney stones (Unknown) Prostate cancer (Unknown) Skin cancer (Unknown) Hepatitis C (Unknown) Hypertension (Unknown) Migraines (Unknown) PTSD (post-traumatic stress disorder) (Unknown) Depression (Unknown) Surgical History S/P lumbar fusion History of lumbar fusion (05/10/22) History of ankle surgery 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 Social History marital status: household members: spouse lives independently: Yes occupational status: previously employed Smoking Status: Former smoker Tobacco: How many years used: 20 quit status: has quit before alcohol intake: former substance use type: former substance user and marijuana Smoking Status: Former smoker tobacco type: cigarettes alcohol intake frequency: holidays/special occasions only Substance Use Type: does not use Exam Initial Vital Signs Initial Vital Signs: Vital Signs Temperature 96.2 F L 05/09/24 21:10 Pulse Rate 88 05/09/24 21:10 Respiratory Rate 18 05/09/24 21:10 Blood Pressure 187/92 H 05/09/24 21:10 Pulse Oximetry 97 05/09/24 21:10 Oxygen Delivery Method Room Air 05/09/24 21:10 HENMT Head: normal to inspection and normocephalic Resp Effort & Inspection: normal respiratory effort Auscultation: clear to auscultation bilaterally Cardio Rate: regular rate Rhythm: regular rhythm GI Inspection: normal to inspection and non-distended Palpation: soft, No firm, No guarding and tender Skin General: no rashes or lesions noted Neuro General: patient alert, patient awake, patient oriented x3 and moves all extremities Extrem General: capillary refill normal Course Orders Ordered: ED Orders 05/09/24 22:15 Complete Blood Count AUTO DIFF Stat Comprehensive Metabolic Panel Stat Lipase Stat 05/09/24 22:27 CT kidney ureter bladder (KUB) Stat Discontinued Medications Ketorolac Tromethamine (Ketorolac 30 Mg/Ml Vial) 30 mg IV NOW ONE Stop: 05/09/24 22:29 Last Admin: 05/09/24 22:39 Dose: 30 mg Documented By: Vital Signs Vital signs: Vital Signs - 8 hr 05/09/24 21:10 05/09/24 21:47 05/09/24 22:00 Temperature 96.2 F L Pulse Rate 88 91 H 90 Respiratory Rate 18 Blood Pressure 187/92 H Pulse Oximetry 97 98 97 Oxygen Delivery Method Room Air 05/09/24 22:30 05/09/24 22:55 05/09/24 22:55 Temperature Pulse Rate 85 87 Respiratory Rate Blood Pressure 228/104 H Pulse Oximetry 98 98 Oxygen Delivery Method 05/09/24 23:00 05/09/24 23:00 05/09/24 23:30 Temperature Pulse Rate 78 80 Respiratory Rate Blood Pressure 214/97 H Pulse Oximetry 98 96 Oxygen Delivery Method 05/09/24 23:30 05/09/24 23:36 Temperature 97.5 F L Pulse Rate 75 Respiratory Rate 18 Blood Pressure 165/80 H 165/78 H Pulse Oximetry 97 Oxygen Delivery Method Room Air MDM - Back Pain/Injury Lab Data Attestation: I reviewed the patient's lab results. 05/09/24 22:15 05/09/24 22:15 Labs: Lab Results 05/09/24 Range/Units 22:15 WBC 7.7 (4.5-11.0) X10^3/uL RBC 3.99 L (4.5-5.9) X10^6/uL Hgb 10.8 L (13.5-17.5) g/dL Hct 32.0 L (41-53) % MCV 80.2 (80-100) fL MCH 27.1 (26-34) PG MCHC 33.8 (30-36) % RDW 16.9 H (11.6-14.8) % Plt Count 249 (150-400) X10^3/uL Neut % (Auto) 67.8 (50-75) % Lymph % (Auto) 15.7 L (25-40) % [place] % (Auto) 12.6 (3-14) % Eos % (Auto) 2.9 (2-4) % Baso % (Auto) 1.0 (0-2) % Neut # (Auto) 5200 (1778-6194) /uL Lymph # (Auto) 1200 (1844-3447) /uL [place] # (Auto) 1000 H (0-900) /uL Eos # (Auto) 200 (0-450) /uL Baso # (Auto) 100 (0-100) /uL Sodium 137 (137-145) mmol/L Potassium 3.6 (3.4-5.1) mmol/L Chloride 107 (98-107) mmol/L Carbon Dioxide 27 (22-32) mmol/L BUN 16 (9-20) mg/dL Creatinine 0.64 L (0.66-1.25) mg/dL Estimated GFR > 60 (>60) mL/min BUN/Creatinine Ratio 25.0 H (6-22) Glucose 92 (80-110) mg/dL Calcium 7.9 L (8.4-10.2) mg/dL Total Bilirubin 0.3 (0.2-1.3) mg/dL AST 27 (17-59) IU/L ALT 20 (<50) IU/L Alkaline Phosphatase 76 (38-126) U/L Total Protein 6.3 (6.3-8.2) g/dL Albumin 3.3 L (3.5-5.0) g/dL Globulin 3.0 (1.7-4.1) g/dL Albumin/Globulin Ratio 1.1 (1.0-2.8) Lipase 131 (23-300) U/L Urine Dip Bedside Urine Glucose Negative Bedside Urine Bilirubin - Negative Bedside Urine Ketone - Negative Urine Specific [place] 1.010 Bedside Urine Occult Blood - Negative Bedside Urine pH 7.0 Bedside Urine Protein - Negative Bedside Urine Urobilinogen +/- 1mg Bedside Urine Nitrite - Negative Bedside Urine Leukocytes - Negative Esterase Imaging Data CT scan - abdomen/pelvis: Radiologist's Impression: PROCEDURE: CT KIDNEY URETER BLADDER (KUB) INDICATIONS: l flank pain eval for stone TECHNIQUE: Axial sections were acquired from the lung bases to the pubic symphysis. Coronal and sagittal reformats were performed. For radiation dose reduction, the following was used: automated exposure control, adjustment of mA and/or kV according to patient size. COMPARISON: [facility], CT, KIDNEY/ URETER/BLADDER, 12/18/2016, 7:15. [facility], CT, CT CHEST ABD PEL W CON, 02/02/2024, 1:50. FINDINGS: Image quality: There is artifact associated with the metallic hardware. Artifact from the metallic hardware is reduced by metal reconstruction algorithm. Lower Chest: Minimal likely atelectasis can be seen involving the right lower lung. URINARY: Right Kidney: No stones or hydronephrosis. Right Ureter: No hydroureter. Left Kidney: No stones or hydronephrosis. Left Ureter: No hydroureter. Bladder: Normal wall thickness. No stones. ABDOMEN: Liver: No contour-deforming solid mass. Gallbladder: Cholecystectomy. Biliary ducts: No biliary dilation. Pancreas: No ductal dilation. Spleen: Size is within normal limits. Calcified granulomas can be seen within the spleen. Adrenal Glands: No adrenal nodules. Stomach and Bowel: Normal colonic caliber, without significant wall thickening. No significant colonic abnormality is seen. No dilated loops of small bowel are seen. A normal appendix is noted. Peritoneum: No abnormal intraperitoneal fluid. No free air. Ventral Wall: No hernia. Abdominal Nodes: No enlarged retroperitoneal or mesenteric lymph nodes. Vessels: Aorta and inferior vena cava are normal in size. Atherosclerotic calcification is noted. PELVIS: Pelvic Organs: Prostatectomy. Penile implant postoperative change, with a right-sided reservoir. Pelvic Nodes: Unremarkable. Miscellaneous: No inguinal hernias are seen. Bones: Extensive spinal fixation hardware. Plain screw fixation can also be seen of the pelvis. Remote trauma and degenerative changes are seen. IMPRESSION: No obstructing stones or hydronephrosis. No nonobstructing stone can be seen involving either kidney. Additional findings: Cholecystectomy Prior granulomatous exposure. Normal appendix Spinal fixation hardware Plate and screw fixation of the pelvis Prostatectomy Penile implant MDM Narrative Medical decision making narrative: Labs unremarkable. Urinalysis unremarkable. CT scan unremarkable. No skin changes concerning for zoster. Unsure of the exact etiology of the patient's symptoms however does not appear to be an emergent/surgical/infectious process. Did discuss this with the patient. Advised him that he would have to take the pain medication that he was prescribed at home for his chronic pain. Patient was given return precautions. He expressed understanding and agreement. Discharge Plan Departure Patient Disposition: Home Clinical Impression: Left flank pain Instructions: DI for Flank Pain Activity Restrictions/Additional Instructions: Your workup here in the emergency department is very reassuring although we do not have an exact cause of your discomfort. I recommend that you continue to take your home medications as directed to include your pain medication. Contact your primary care doctor for follow-up. Prescriptions: No Action ipratropium bromide 21 mcg (0.03 %) spray,non-aerosol 2 spray intranasal BID PRN (Reason: Rhinorrhea) Qty: 30 0RF Rx Instructions: administer into each nostril albuterol sulfate 2.5 mg /3 mL (0.083 %) solution for nebulization 2.5 mg Continuous Nebulization Q6HP PRN (Reason: shortness of breath or wheezing) Qty: 360 2RF albuterol sulfate 90 mcg/actuation HFA aerosol inhaler 1 inh INHALATION Q4-6H PRN (Reason: shortness of breath) Qty: 18 4RF omeprazole 40 mg capsule,delayed release(DR/EC) 40 mg PO DAILY Qty: 90 3RF Rx Instructions: take 1 capsule by mouth once daily lidocaine 5 % adhesive patch,medicated 2 patch topical DAILY Qty: 30 1RF Rx Instructions: leave on most painful area for up to 12 hrs nitroglycerin 0.4 mg tablet, sublingual 0.4 mg sublingual Q5M PRN (Reason: chest pain) Qty: 20 1RF Rx Instructions: do not exceed 3 doses per episode sulfasalazine 500 mg tablet 1,000 mg PO BID Qty: 180 1RF cholecalciferol (vitamin D3) 1,250 mcg (50,000 unit) capsule 1,250 mcg PO QWEEK Qty: 12 0RF ascorbic acid (vitamin C) 500 mg tablet 500 mg PO DAILY Qty: 90 0RF Rx Instructions: Take with iron mecobalamin (vitamin B12) [B12 Active] 1,000 mcg tablet,chewable 1,000 mcg PO DAILY Qty: 90 3RF methocarbamol 750 mg tablet 750 mg PO QID PRN (Reason: pain, severe) Qty: 56 0RF metoprolol succinate 100 mg tablet extended release 24 hr 100 mg PO DAILY Qty: 90 1RF fluoxetine 20 mg capsule 20 mg PO DAILY Qty: 90 3RF Rx Instructions: Take with 10 mg to complete 30 mg dose fluoxetine 10 mg capsule See Rx Instructions .ROUTE .COMPLEX Qty: 90 3RF Dose Instruction: take 1 capsule by mouth once daily WITH 20MG CAP DAILY TOTAL 30 MG DAILY Rx Instructions: take 1 capsule by mouth once daily WITH 20MG CAP DAILY TOTAL 30 MG DAILY oxycodone 10 mg tablet 10 mg PO Q8H PRN (Reason: pain) Qty: 90 0RF Rx Instructions: MAY REFILL ON DEC 02, 2023 hydromorphone 2 mg tablet 2 mg PO BEDTIME PRN (Reason: pain) Qty: 30 0RF Rx Instructions: May refill on Dec 02, 2023 ferrous gluconate 324 mg (37.5 mg iron) tablet 324 mg PO DAILY Qty: 90 2RF Rx Instructions: start taking daily, with food or juice nortriptyline 10 mg capsule 10 mg PO BEDTIME Qty: 30 1RF ondansetron 8 mg tablet,disintegrating 8 mg PO Q8H PRN (Reason: nausea and vomiting) Qty: 30 1RF zolmitriptan [Zomig] 5 mg tablet See Rx Instructions PO .COMPLEX Qty: 10 1RF Rx Instructions: take 1 tab at onset of headache; if no relief, may repeat 1 tab after at least 2 hrs; max = 2 tabs/24 hrs PO potassium chloride 20 mEq tablet extended release 20 meq PO BID Qty: 10 0RF valacyclovir 1 gram tablet 1,000 mg PO TID Qty: 30 0RF meclizine 25 mg tablet 25 mg PO TID PRN (Reason: dizziness) Qty: 10 0RF Disabled Parking Permit 1 1 % SEEINSTR Rx Instructions: Valid for 5 years amlodipine 5 mg tablet 5 mg PO DAILY Patient Comments: pt received dose in hospital 11/10/19 early AM admit to hydrochlorothiazide 25 mg tablet 12.5 mg PO QAM ipratropium-albuterol 0.5 mg-3 mg(2.5 mg base)/3 mL solution for nebulization 3 ml inhalation Q6H PRN (Reason: shortness of breath or wheezing) Qty: 90 0RF Referrals: Edilberto Snell DO [Primary Care Provider] - Stand Alone Forms: Patient Portal/API
[2024-05-09] MEDS: KETOROLAC 30 MG/ML VIAL IV (22:39)
[2024-05-09 22:46] LABS: Alanine Aminotransferase 20 IU/L (<50); Albumin 3.3 g/dL (3.5-5.0); Albumin Globulin Ratio 1.1 (1.0-2.8); Alkaline Phosphatase 76 U/L (38-126); Aspartate Aminotransferase 27 IU/L (17-59); Bilirubin Total 0.3 mg/dL (0.2-1.3); Blood Urea Nitrogen 16 mg/dL (9-20); Calcium 7.9 mg/dL (8.4-10.2); Carbon Dioxide 27 mmol/L (22-32); Chloride 107 mmol/L (98-107); Estimated Glomerular Filt Rate > 60 mL/min (>60); Glucose 92 mg/dL (80-110); HEMOLYSIS 44 (0-50); Lipase 131 U/L (23-300); Potassium 3.6 mmol/L (3.4-5.1); Sodium 137 mmol/L (137-145); Total Protein 6.3 g/dL (6.3-8.2)
== END 2024-05-09 23:52 | disposition home or self-care (01) ==
PROVIDERS: Emergency Provider Emergency Medicine; PCP Family Medicine
DX: R10.9 Unspecified abdominal pain (principal); Z79.899 Other long term (current) drug therapy
CPT/HCPCS: 36415; 74176; 80053; 81003; 83690; 85025; 96374; 99284; J1885

== ENCOUNTER 2024-05-10 17:22 | Emergency (ER) | payer MEDICARE, OTHER, SELFPAY ==
[2024-02-02 03:27] VITALS: BMI 29.4
[2024-05-10] VITALS (10 sets, daily range): BP systolic 171–213; BP diastolic 79–114; PULSE 82–94; RESP 18; TEMP 36.5; O2SAT 96–98; BMI 30.8
--- NOTE | 2024-05-10 23:19 | ED.ABDPAIN ---
HPI - Abdominal Pain General Chief Complaint: Abdominal Pain Stated Complaint: returning, side px, SOB Time Seen by Provider: 05/10/24 22:14 Mode of arrival: Ambulatory History of Present Illness HPI narrative: 78-year-old male well known to this emergency department presents for left lower abdominal pain. Patient is seen in the emergency department yesterday for this complaint. He underwent negative labs and imaging at that time. Patient states that he was still in pain. Of note, when I walked into the exam room patient was chatting comfortably on the phone with his . After he hung up he began to clutching his left side and moan in pain Related Data Home Medications Medication Instructions Recorded Confirmed Disabled Parking Permit 1 % SEEINSTR 11/08/20 04/30/24 amlodipine 5 mg tablet 5 mg PO DAILY 11/08/22 04/30/24 hydrochlorothiazide 25 mg tablet 12.5 mg PO QAM 11/15/22 04/30/24 Previous Rx's Medication Instructions Recorded albuterol sulfate 2.5 mg/3 mL 2.5 mg (3 mL) continuous 10/24/22 (0.083 %) solution for nebulization nebulization Q6HP PRN shortness of breath or wheezing #360 mL albuterol sulfate 90 mcg/actuation 1 inh inhalation Q4-6H PRN 12/27/22 aerosol inhaler shortness of breath #18 grams omeprazole 40 mg capsule,delayed 40 mg PO DAILY #90 caps 01/01/23 release lidocaine 5 % topical patch 2 patch topical DAILY #30 ea 01/08/23 potassium chloride 20 mEq 20 meq PO BID #10 tabs 02/26/23 tablet,extended release ipratropium 0.5 mg-albuterol 3 mg 3 ml inhalation Q6H PRN shortness 03/19/23 (2.5 mg base)/3 mL nebulization of breath or wheezing #90 mL soln valacyclovir 1 gram tablet 1,000 mg PO TID #30 tabs 09/02/23 nitroglycerin 0.4 mg sublingual 0.4 mg sublingual Q5M PRN chest 10/03/23 tablet pain #20 tabs ferrous gluconate 324 mg (37.5 mg 324 mg PO DAILY #90 tabs 10/22/23 iron) tablet sulfasalazine 500 mg tablet 1,000 mg (2 x 500 mg) PO BID #180 11/28/23 tabs ascorbic acid (vitamin C) 500 mg 500 mg PO DAILY #90 tabs 12/13/23 tablet cholecalciferol (vitamin D3) 1,250 1,250 mcg PO QWEEK #12 caps 12/13/23 mcg (50,000 unit) capsule nortriptyline 10 mg capsule 10 mg PO BEDTIME #30 caps 12/17/23 ondansetron 8 mg disintegrating 8 mg PO Q8H PRN nausea and 12/17/23 tablet vomiting #30 tabs zolmitriptan 5 mg tablet (Zomig) See Rx Instructions PO .COMPLEX 12/17/23 #10 tabs meclizine 25 mg tablet 25 mg PO TID PRN dizziness #10 tabs 01/23/24 mecobalamin (vitamin B12) 1,000 1,000 mcg PO DAILY #90 tabs 02/11/24 mcg chewable tablet (B12 Active) ipratropium bromide 21 mcg (0.03 2 spray intranasal BID PRN 03/05/24 %) nasal spray Rhinorrhea #30 mL methocarbamol 750 mg tablet 750 mg PO QID PRN pain, severe #56 04/02/24 tabs fluoxetine 10 mg capsule See Rx Instructions .Route 04/20/24 .COMPLEX #90 caps fluoxetine 20 mg capsule 20 mg PO DAILY #90 caps 04/20/24 metoprolol succinate 100 mg 100 mg PO DAILY #90 tabs 04/20/24 tablet,extended release 24 hr hydromorphone 2 mg tablet 2 mg PO BEDTIME PRN pain #30 tabs 04/28/24 oxycodone 10 mg tablet 10 mg PO Q8H PRN pain #90 tabs 04/28/24 Allergies Allergy/AdvReac Type Severity Reaction Status Date / Time cyclobenzaprine Allergy Severe Dizziness, Verified 05/10/24 18:05 [From Flexeril] I bounce off ag ibuprofen AdvReac Intermediate Redness of Verified 05/10/24 18:05 Skin acetaminophen [ACETAMINOPHEN] AdvReac Unknown Can't take Verified 05/10/24 18:05 r/t Hep C; upset stomach Patient History Medical History Left knee pain Chronic diarrhea Eustachian tube dysfunction Seasonal allergic rhinitis Dyspepsia Anemia Tinea Abdominal wall pain in both lower quadrants Constipation Aftercare following left shoulder joint replacement surgery Preoperative clearance Left lateral epicondylitis Adhesive capsulitis Right wrist sprain Oral lesion Colles' fracture Right wrist pain Left shoulder strain Anxiety Fibromyalgia Sinus drainage Chronic ankle pain, bilateral Rheumatoid arthritis Acute exacerbation of chronic bronchitis Foraminal stenosis of lumbar region Peripheral neuropathy Pneumonia (~2018) Impotence (Unknown) Restless leg syndrome (Unknown) Arthritis (Unknown) Chronic pain syndrome (Unknown) Kidney stones (Unknown) Prostate cancer (Unknown) Skin cancer (Unknown) Hepatitis C (Unknown) Hypertension (Unknown) Migraines (Unknown) PTSD (post-traumatic stress disorder) (Unknown) Depression (Unknown) Surgical History S/P lumbar fusion History of lumbar fusion (05/10/22) History of ankle surgery 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 Social History marital status: household members: spouse lives independently: Yes occupational status: previously employed Smoking Status: Former smoker Tobacco: How many years used: 20 quit status: has quit before alcohol intake: former substance use type: former substance user and marijuana Smoking Status: Former smoker tobacco type: cigarettes alcohol intake frequency: holidays/special occasions only Substance Use Type: does not use Exam Initial Vital Signs Initial Vital Signs: Vital Signs Temperature 97.7 F 05/10/24 18:02 Pulse Rate 91 H 05/10/24 18:02 Respiratory Rate 18 05/10/24 18:02 Blood Pressure 182/100 H 05/10/24 18:02 Pulse Oximetry 98 05/10/24 18:02 Oxygen Delivery Method Room Air 05/10/24 18:02 Const: Awake, alert, appears chronically unwell Cardiac: regular rate, regular rhythm RESP: unlabored, clear bilaterally, no wheezing GI: Soft, LLQ tenderness to deep palpation Skin: Warm, Dry, intact, no rashes Neuro: AO x3, CN II-XII grossly intact, moves all extremities Course Orders Ordered: Discontinued Medications Acetaminophen (Ofirmev) 1,000 mg in 100 mls @ 400 mls/hr IV NOW ONE Stop: 05/10/24 23:31 Last Infusion: 05/11/24 00:58 Dose: Infused Documented By: Admin: 05/11/24 00:43 Dose: 400 mls/hr Documented By: Ketorolac Tromethamine (Ketorolac 30 Mg/Ml Vial) 15 mg IV NOW ONE Stop: 05/10/24 23:18 Last Admin: 05/11/24 00:42 Dose: 15 mg Documented By: Vital Signs Vital signs: Vital Signs - 8 hr 05/10/24 18:02 05/10/24 21:40 05/10/24 22:12 Temperature 97.7 F Pulse Rate 91 H 93 H 94 H Respiratory Rate 18 18 Blood Pressure 182/100 H 187/114 H Pulse Oximetry 98 98 98 Oxygen Delivery Method Room Air Room Air 05/10/24 22:13 05/10/24 22:13 05/10/24 22:30 Temperature Pulse Rate 91 H 82 Respiratory Rate Blood Pressure 213/100 H Pulse Oximetry 97 97 Oxygen Delivery Method 05/10/24 22:31 05/10/24 22:31 05/10/24 23:00 Temperature Pulse Rate 84 82 Respiratory Rate Blood Pressure 171/79 H Pulse Oximetry 96 96 Oxygen Delivery Method 05/10/24 23:01 05/10/24 23:01 05/10/24 23:30 Temperature Pulse Rate 82 94 H Respiratory Rate Blood Pressure 197/88 H Pulse Oximetry 98 97 Oxygen Delivery Method 05/10/24 23:31 05/10/24 23:31 05/11/24 00:00 Temperature Pulse Rate 88 84 Respiratory Rate Blood Pressure 184/89 H Pulse Oximetry 97 97 Oxygen Delivery Method 05/11/24 00:00 05/11/24 00:32 05/11/24 00:33 Temperature Pulse Rate 75 Respiratory Rate Blood Pressure 193/85 H Pulse Oximetry 90 L 98 Oxygen Delivery Method Room Air 05/11/24 00:33 Temperature Pulse Rate Respiratory Rate Blood Pressure 225/104 H Pulse Oximetry Oxygen Delivery Method MDM - Abdominal Pain Lab Data 05/10/24 00:30 05/10/24 00:30 Labs: Lab Results 07/28/24 Range/Units 00:30 WBC 7.6 (4.5-11.0) X10^3/uL RBC 4.41 L (4.5-5.9) X10^6/uL Hgb 11.9 L (13.5-17.5) g/dL Hct 35.7 L (41-53) % MCV 80.8 (80-100) fL MCH 27.0 (26-34) PG MCHC 33.5 (30-36) % RDW 17.2 H (11.6-14.8) % Plt Count 60 L (150-400) X10^3/uL Neut % (Auto) 64.2 (50-75) % Lymph % (Auto) 20.3 L (25-40) % [place] % (Auto) 11.7 (3-14) % Eos % (Auto) 2.4 (2-4) % Baso % (Auto) 1.4 (0-2) % Neut # (Auto) 4900 (3480-1332) /uL Lymph # (Auto) 1500 (9676-8411) /uL [place] # (Auto) 900 (0-900) /uL Eos # (Auto) 200 (0-450) /uL Baso # (Auto) 100 (0-100) /uL Sodium 136 L (137-145) mmol/L Potassium 4.3 (3.4-5.1) mmol/L Chloride 107 (98-107) mmol/L Carbon Dioxide 25 (22-32) mmol/L BUN 11 (9-20) mg/dL Creatinine 0.57 L (0.66-1.25) mg/dL Estimated GFR > 60 (>60) mL/min BUN/Creatinine Ratio 19.3 (6-22) Glucose 83 (80-110) mg/dL Calcium 8.0 L (8.4-10.2) mg/dL Total Bilirubin 0.8 (0.2-1.3) mg/dL AST 38 (17-59) IU/L ALT 20 (<50) IU/L Alkaline Phosphatase 56 (38-126) U/L Total Protein 6.7 (6.3-8.2) g/dL Albumin 3.8 (3.5-5.0) g/dL Globulin 2.9 (1.7-4.1) g/dL Albumin/Globulin Ratio 1.3 (1.0-2.8) Point of care testing: Urine Dip Bedside Urine Glucose Negative Bedside Urine Bilirubin - Negative Bedside Urine Ketone - Negative Urine Specific [place] 1.015 Bedside Urine Occult Blood - Negative Bedside Urine pH 6.0 Bedside Urine Protein - Negative Bedside Urine Urobilinogen - Negative Bedside Urine Nitrite - Negative Bedside Urine Leukocytes - Negative Esterase MDM Narrative Medical decision making narrative: Patient presenting again for left-sided pain. Seen yesterday with unremarkable labs and imaging. Abdomen soft, no peritoneal signs. Results from yesterday ordered. Since patient states that the symptoms are the same as yesterday I see little indication to repeat CT scan at this time, however we will order repeat laboratory work. If there are any gross abnormalities then can reconsider CT imaging. Delay in obtaining lab work due to difficult IV access. No significant change in labs compared to yesterday. After being in the emergency department for several hours patient told nursing staff that he would like to go home. Discharge Plan Departure Patient Disposition: Home Clinical Impression: Pain Instructions: DI for Abdominal Pain-Adult Activity Restrictions/Additional Instructions: Take your home pain medications as prescribed. Follow up with the primary care doctor if you continue to have pain. Prescriptions: No Action ipratropium bromide 21 mcg (0.03 %) spray,non-aerosol 2 spray intranasal BID PRN (Reason: Rhinorrhea) Qty: 30 0RF Rx Instructions: administer into each nostril albuterol sulfate 2.5 mg /3 mL (0.083 %) solution for nebulization 2.5 mg Continuous Nebulization Q6HP PRN (Reason: shortness of breath or wheezing) Qty: 360 2RF albuterol sulfate 90 mcg/actuation HFA aerosol inhaler 1 inh INHALATION Q4-6H PRN (Reason: shortness of breath) Qty: 18 4RF omeprazole 40 mg capsule,delayed release(DR/EC) 40 mg PO DAILY Qty: 90 3RF Rx Instructions: take 1 capsule by mouth once daily lidocaine 5 % adhesive patch,medicated 2 patch topical DAILY Qty: 30 1RF Rx Instructions: leave on most painful area for up to 12 hrs nitroglycerin 0.4 mg tablet, sublingual 0.4 mg sublingual Q5M PRN (Reason: chest pain) Qty: 20 1RF Rx Instructions: do not exceed 3 doses per episode sulfasalazine 500 mg tablet 1,000 mg PO BID Qty: 180 1RF cholecalciferol (vitamin D3) 1,250 mcg (50,000 unit) capsule 1,250 mcg PO QWEEK Qty: 12 0RF ascorbic acid (vitamin C) 500 mg tablet 500 mg PO DAILY Qty: 90 0RF Rx Instructions: Take with iron mecobalamin (vitamin B12) [B12 Active] 1,000 mcg tablet,chewable 1,000 mcg PO DAILY Qty: 90 3RF methocarbamol 750 mg tablet 750 mg PO QID PRN (Reason: pain, severe) Qty: 56 0RF metoprolol succinate 100 mg tablet extended release 24 hr 100 mg PO DAILY Qty: 90 1RF fluoxetine 20 mg capsule 20 mg PO DAILY Qty: 90 3RF Rx Instructions: Take with 10 mg to complete 30 mg dose fluoxetine 10 mg capsule See Rx Instructions .ROUTE .COMPLEX Qty: 90 3RF Dose Instruction: take 1 capsule by mouth once daily WITH 20MG CAP DAILY TOTAL 30 MG DAILY Rx Instructions: take 1 capsule by mouth once daily WITH 20MG CAP DAILY TOTAL 30 MG DAILY oxycodone 10 mg tablet 10 mg PO Q8H PRN (Reason: pain) Qty: 90 0RF Rx Instructions: MAY REFILL ON DEC 02, 2023 hydromorphone 2 mg tablet 2 mg PO BEDTIME PRN (Reason: pain) Qty: 30 0RF Rx Instructions: May refill on Dec 02, 2023 ferrous gluconate 324 mg (37.5 mg iron) tablet 324 mg PO DAILY Qty: 90 2RF Rx Instructions: start taking daily, with food or juice nortriptyline 10 mg capsule 10 mg PO BEDTIME Qty: 30 1RF ondansetron 8 mg tablet,disintegrating 8 mg PO Q8H PRN (Reason: nausea and vomiting) Qty: 30 1RF zolmitriptan [Zomig] 5 mg tablet See Rx Instructions PO .COMPLEX Qty: 10 1RF Rx Instructions: take 1 tab at onset of headache; if no relief, may repeat 1 tab after at least 2 hrs; max = 2 tabs/24 hrs PO potassium chloride 20 mEq tablet extended release 20 meq PO BID Qty: 10 0RF valacyclovir 1 gram tablet 1,000 mg PO TID Qty: 30 0RF meclizine 25 mg tablet 25 mg PO TID PRN (Reason: dizziness) Qty: 10 0RF Disabled Parking Permit 1 1 % SEEINSTR Rx Instructions: Valid for 5 years amlodipine 5 mg tablet 5 mg PO DAILY Patient Comments: pt received dose in hospital 11/10/19 early AM admit to [facility] hydrochlorothiazide 25 mg tablet 12.5 mg PO QAM ipratropium-albuterol 0.5 mg-3 mg(2.5 mg base)/3 mL solution for nebulization 3 ml inhalation Q6H PRN (Reason: shortness of breath or wheezing) Qty: 90 0RF Referrals: Edilberto Snell, [Primary Care Provider] - Stand Alone Forms: Patient Portal/API
[2024-05-11] VITALS: BP 193/85; PULSE 84; O2SAT 97
[2024-05-11 00:32] VITALS: O2SAT 90
[2024-05-11 00:33] VITALS: BP 225/104; PULSE 75; O2SAT 98
[2024-05-11] MEDS: KETOROLAC 30 MG/ML VIAL 15 MG IV (00:42)
[2024-05-11] MEDS: ACETAMINOPHEN IV 1,000 MG/100 ML VIAL 400 MG IV (00:43)
[2024-05-11 01:00] VITALS: BP 174/88; PULSE 86; RESP 16; TEMP 36.6; O2SAT 96
[2024-05-11 01:00] LABS: Add Manual Diff / Slide Review NO; Basophils Absolute Auto 100 /uL (0-100); Basophils Percent Auto 1.4 % (0-2); Eosinophils Absolute Auto 200 /uL (0-450); Eosinophils Percent Auto 2.4 % (2-4); Hematocrit 35.7 % (41-53); Hemoglobin 11.9 g/dL (13.5-17.5); Lymphocytes Absolute Auto 1500 /uL (1100-4500); Lymphocytes Percent Auto 20.3 % (25-40); Mean Corpuscular HGB Conc 33.5 % (30-36); Mean Corpuscular Volume 80.8 fL (80-100); Monocytes Absolute Auto 900 /uL (0-900); Monocytes Percent Auto 11.7 % (3-14); Neutrophils Absolute Auto 4900 /uL (1500-7000); Neutrophils Percent Auto 64.2 % (50-75); Platelet Count 60 X10^3/uL (150-400); Red Blood Cell Count 4.41 X10^6/uL (4.5-5.9); Red Cell Distribution Width 17.2 % (11.6-14.8); White Blood Cell Count 7.6 X10^3/uL (4.5-11.0)
[2024-05-11 01:14] LABS: Alanine Aminotransferase 20 IU/L (<50); Albumin 3.8 g/dL (3.5-5.0); Albumin Globulin Ratio 1.3 (1.0-2.8); Alkaline Phosphatase 56 U/L (38-126); Aspartate Aminotransferase 38 IU/L (17-59); BUN Creatinine Ratio 19.3 (6-22); Bilirubin Total 0.8 mg/dL (0.2-1.3); Blood Urea Nitrogen 11 mg/dL (9-20); Carbon Dioxide 25 mmol/L (22-32); Chloride 107 mmol/L (98-107); Estimated Glomerular Filt Rate > 60 mL/min (>60); Globulin 2.9 g/dL (1.7-4.1); Glucose 83 mg/dL (80-110); Potassium 4.3 mmol/L (3.4-5.1); Sodium 136 mmol/L (137-145); Total Protein 6.7 g/dL (6.3-8.2)
[2024-05-11 01:15] LABS: HEMOLYSIS 147 (0-50)
== END 2024-05-11 01:14 | disposition home or self-care (01) ==
PROVIDERS: Emergency Provider Emergency Medicine; PCP Family Medicine
DX: R10.32 Left lower quadrant pain (principal)
CPT/HCPCS: 36415; 80053; 81003; 85025; 96374; 96375; 99284; J0136; J1885

== ENCOUNTER 2024-05-21 09:44 | Emergency (ER) | payer MEDICARE, OTHER, SELFPAY ==
[2024-02-02 03:27] VITALS: BMI 29.4
[2024-05-21 10:02] VITALS: BP 167/118; PULSE 95; RESP 18; TEMP 36.6; O2SAT 95; BMI 31.1
[2024-05-21 10:18] VITALS: PULSE 59; O2SAT 97
[2024-05-21 10:19] VITALS: BP 223/112; PULSE 70; O2SAT 96
--- NOTE | 2024-05-21 10:27 | DI.CT.S_ITS ---
PROCEDURE: CT ABDOMEN PELVIS W CON INDICATIONS: worsening L sided flank pain TECHNIQUE: After the administration of intravenous contrast, axial sections acquired from the lung bases to the pubic symphysis. Coronal and sagittal reformats were performed. For radiation dose reduction, the following was used: automated exposure control, adjustment of mA and/or kV according to patient size. COMPARISON: None. FINDINGS: Image quality: Diagnostic. Lower Chest: No significant findings. Bibasilar lung calcified granulomas. ABDOMEN: Liver: No solid mass. Gallbladder: Gallbladder is surgically absent. Biliary ducts: No biliary dilation. Pancreas: No ductal dilation. Spleen: Size is within normal limits. Punctate calcifications in the spleen consistent with prior granulomatous disease. Adrenal Glands: No adrenal nodules. Kidneys and Ureters: No hydronephrosis. No solid mass. No complex renal cystic lesion which requires follow up. Stomach and Bowel: Normal colonic caliber, without significant wall thickening. The appendix is normal. Peritoneum: No abnormal intraperitoneal fluid. No free air. Ventral Wall: No significant ventral hernia. Abdominal Nodes: No retroperitoneal or mesenteric adenopathy by size criteria. Vessels: Aorta and inferior vena cava are normal in size. Scattered atherosclerotic calcifications involving the abdominal and pelvic vasculature. PELVIS: Pelvic Organs: Unremarkable. Bladder: No bladder wall thickening, accounting for underdistention. Pelvic Nodes: No enlarged lymph nodes. Miscellaneous: No inguinal hernias are seen. Penile implant with reservoir in the right groin Bones: Spine degenerative disc disease and facet arthropathy. T12-L4 fixation hardware. Pubic symphysis and right iliac bone fixation hardware. IMPRESSION: No acute disease process. Dictated by: Cassi Russ MD, PhD on 05/21/2024 at 10:55 Approved by: Cassi Russ MD, PhD on 05/21/2024 at 11:01
[2024-05-21 10:30] VITALS: PULSE 97; O2SAT 95
[2024-05-21 10:44] LABS: Add Manual Diff / Slide Review NO; Basophils Absolute Auto 100 /uL (0-100); Basophils Percent Auto 0.8 % (0-2); Eosinophils Absolute Auto 200 /uL (0-450); Eosinophils Percent Auto 2.4 % (2-4); Hematocrit 38.8 % (41-53); Hemoglobin 12.9 g/dL (13.5-17.5); Lymphocytes Absolute Auto 1400 /uL (1100-4500); Lymphocytes Percent Auto 14.9 % (25-40); Mean Corpuscular HGB Conc 33.1 % (30-36); Mean Corpuscular Hemoglobin 27.2 PG (26-34); Mean Corpuscular Volume 82.2 fL (80-100); Monocytes Absolute Auto 1200 /uL (0-900); Monocytes Percent Auto 12.5 % (3-14); Neutrophils Absolute Auto 6500 /uL (1500-7000); Neutrophils Percent Auto 69.4 % (50-75); Platelet Count 309 X10^3/uL (150-400); Red Blood Cell Count 4.72 X10^6/uL (4.5-5.9); Red Cell Distribution Width 16.8 % (11.6-14.8); White Blood Cell Count 9.4 X10^3/uL (4.5-11.0)
[2024-05-21 10:45] VITALS: BP 208/102; PULSE 93; O2SAT 96
[2024-05-21 11:01] LABS: Alanine Aminotransferase 18 IU/L (<50); Albumin 4.1 g/dL (3.5-5.0); Albumin Globulin Ratio 1.3 (1.0-2.8); Alkaline Phosphatase 85 U/L (38-126); Aspartate Aminotransferase 22 IU/L (17-59); BUN Creatinine Ratio 15.4 (6-22); Bilirubin Total 0.5 mg/dL (0.2-1.3); Blood Urea Nitrogen 10 mg/dL (9-20); Calcium 8.6 mg/dL (8.4-10.2); Carbon Dioxide 27 mmol/L (22-32); Chloride 107 mmol/L (98-107); Estimated Glomerular Filt Rate > 60 mL/min (>60); Globulin 3.2 g/dL (1.7-4.1); Glucose 90 mg/dL (80-110); HEMOLYSIS < 15 (0-50); Lipase 80 U/L (23-300); Potassium 3.9 mmol/L (3.4-5.1); Sodium 139 mmol/L (137-145); Total Protein 7.3 g/dL (6.3-8.2)
--- NOTE | 2024-05-21 11:13 | ED_ITS ---
HPI - General Adult General Chief complaint: Abdominal Pain Stated complaint: l side abd pain Time Seen by Provider: 05/21/24 10:26 Source: patient Mode of arrival: Ambulatory History of Present Illness HPI narrative: 78-year-old male who is here for evaluation of left-sided flank/abdominal pain. He has had this discomfort in the past and has been evaluated by myself here in this emergency department but he states that last night the symptoms returned and are actually worsening. Does have chronic pain issues. No fevers. No vomiting. He contacted his primary doctor told him to go to the walk-in clinic. The walk-in clinic sent him here in the emergency department. Related Data Home Medications Medication Instructions Recorded Confirmed Disabled Parking Permit 1 % SEEINSTR 11/08/20 05/21/24 amlodipine 5 mg tablet 5 mg PO DAILY 11/08/22 05/21/24 hydrochlorothiazide 25 mg tablet 12.5 mg PO QAM 11/15/22 05/21/24 Previous Rx's Medication Instructions Recorded albuterol sulfate 2.5 mg/3 mL 2.5 mg (3 mL) continuous 10/24/22 (0.083 %) solution for nebulization nebulization Q6HP PRN shortness of breath or wheezing #360 mL albuterol sulfate 90 mcg/actuation 1 inh inhalation Q4-6H PRN 12/27/22 aerosol inhaler shortness of breath #18 grams omeprazole 40 mg capsule,delayed 40 mg PO DAILY #90 caps 01/01/23 release lidocaine 5 % topical patch 2 patch topical DAILY #30 ea 01/08/23 potassium chloride 20 mEq 20 meq PO BID #10 tabs 02/26/23 tablet,extended release ipratropium 0.5 mg-albuterol 3 mg 3 ml inhalation Q6H PRN shortness 03/19/23 (2.5 mg base)/3 mL nebulization of breath or wheezing #90 mL soln valacyclovir 1 gram tablet 1,000 mg PO TID #30 tabs 09/02/23 nitroglycerin 0.4 mg sublingual 0.4 mg sublingual Q5M PRN chest 10/03/23 tablet pain #20 tabs ferrous gluconate 324 mg (37.5 mg 324 mg PO DAILY #90 tabs 10/22/23 iron) tablet sulfasalazine 500 mg tablet 1,000 mg (2 x 500 mg) PO BID #180 11/28/23 tabs ascorbic acid (vitamin C) 500 mg 500 mg PO DAILY #90 tabs 12/13/23 tablet cholecalciferol (vitamin D3) 1,250 1,250 mcg PO QWEEK #12 caps 12/13/23 mcg (50,000 unit) capsule nortriptyline 10 mg capsule 10 mg PO BEDTIME #30 caps 12/17/23 ondansetron 8 mg disintegrating 8 mg PO Q8H PRN nausea and 12/17/23 tablet vomiting #30 tabs zolmitriptan 5 mg tablet (Zomig) See Rx Instructions PO .COMPLEX 12/17/23 #10 tabs meclizine 25 mg tablet 25 mg PO TID PRN dizziness #10 tabs 01/23/24 mecobalamin (vitamin B12) 1,000 1,000 mcg PO DAILY #90 tabs 02/11/24 mcg chewable tablet (B12 Active) ipratropium bromide 21 mcg (0.03 2 spray intranasal BID PRN 03/05/24 %) nasal spray Rhinorrhea #30 mL methocarbamol 750 mg tablet 750 mg PO QID PRN pain, severe #56 04/02/24 tabs fluoxetine 10 mg capsule See Rx Instructions .Route 04/20/24 .COMPLEX #90 caps fluoxetine 20 mg capsule 20 mg PO DAILY #90 caps 04/20/24 metoprolol succinate 100 mg 100 mg PO DAILY #90 tabs 04/20/24 tablet,extended release 24 hr hydromorphone 2 mg tablet 2 mg PO BEDTIME PRN pain #30 tabs 04/28/24 oxycodone 10 mg tablet 10 mg PO Q8H PRN pain #90 tabs 05/12/24 Allergies Allergy/AdvReac Type Severity Reaction Status Date / Time cyclobenzaprine Allergy Severe Dizziness, Verified 05/21/24 09:20 [From Flexeril] I bounce off ag ibuprofen AdvReac Intermediate Redness of Verified 05/21/24 09:20 Skin acetaminophen [ACETAMINOPHEN] AdvReac Unknown Can't take Verified 05/21/24 09:20 r/t Hep C; upset stomach Review of Systems Review of Systems ROS Unobtainable: All systems reviewed & are unremarkable except as noted in HPI and below Patient History Medical History Left knee pain Chronic diarrhea Eustachian tube dysfunction Seasonal allergic rhinitis Dyspepsia Anemia Tinea Abdominal wall pain in both lower quadrants Constipation Aftercare following left shoulder joint replacement surgery Preoperative clearance Left lateral epicondylitis Adhesive capsulitis Right wrist sprain Oral lesion Colles' fracture Right wrist pain Left shoulder strain Anxiety Fibromyalgia Sinus drainage Chronic ankle pain, bilateral Rheumatoid arthritis Acute exacerbation of chronic bronchitis Foraminal stenosis of lumbar region Peripheral neuropathy Pneumonia (~2017) Impotence (Unknown) Restless leg syndrome (Unknown) Arthritis (Unknown) Chronic pain syndrome (Unknown) Kidney stones (Unknown) Prostate cancer (Unknown) Skin cancer (Unknown) Hepatitis C (Unknown) Hypertension (Unknown) Migraines (Unknown) PTSD (post-traumatic stress disorder) (Unknown) Depression (Unknown) Surgical History S/P lumbar fusion History of lumbar fusion (05/10/22) History of ankle surgery 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 Social History marital status: household members: spouse lives independently: Yes occupational status: previously employed Smoking Status: Former smoker Tobacco: How many years used: 20 quit status: has quit before alcohol intake: former substance use type: former substance user and marijuana Smoking Status: Former smoker tobacco type: cigarettes alcohol intake frequency: holidays/special occasions only Substance Use Type: does not use Exam Initial Vital Signs Initial Vital Signs: Vital Signs Temperature 97.8 F 05/21/24 10:02 Pulse Rate 95 H 05/21/24 10:02 Respiratory Rate 18 05/21/24 10:02 Blood Pressure 167/118 H 05/21/24 10:02 Pulse Oximetry 95 05/21/24 10:02 Oxygen Delivery Method Room Air 05/21/24 10:02 Const General: cooperative, comfortable and No ill appearing HENNH Head: normal to inspection and normocephalic GI Inspection: normal to inspection and non-distended Palpation: soft, No firm, No guarding and tender Back/Spine/Pelvis Back: CVA tenderness left Skin General: no rashes or lesions noted Course Orders Ordered: ED Orders 05/21/24 10:27 CT abdomen pelvis w con Stat 05/21/24 10:36 Complete Blood Count AUTO DIFF Stat Comprehensive Metabolic Panel Stat Lipase Stat Vital Signs Vital signs: Vital Signs - 8 hr 05/21/24 10:02 05/21/24 10:18 05/21/24 10:19 Temperature 97.8 F Pulse Rate 95 H 59 L Respiratory Rate 18 Blood Pressure 167/118 H 223/112 H Pulse Oximetry 95 97 Oxygen Delivery Method Room Air 05/21/24 10:19 05/21/24 10:30 05/21/24 10:45 Temperature Pulse Rate 70 97 H 93 H Respiratory Rate Blood Pressure Pulse Oximetry 96 95 96 Oxygen Delivery Method 05/21/24 10:45 Temperature Pulse Rate Respiratory Rate Blood Pressure 208/102 H Pulse Oximetry Oxygen Delivery Method Medical Decision Making Medical Records Medical records reviewed: Yes I reviewed the patient's medical records. Lab Data Lab results reviewed: Yes I reviewed the patient's lab results. 05/21/24 10:36 05/21/24 10:36 Labs: Lab Results 05/21/24 Range/Units 10:36 WBC 9.4 (4.5-11.0) X10^3/uL RBC 4.72 (4.5-5.9) X10^6/uL Hgb 12.9 L (13.5-17.5) g/dL Hct 38.8 L (41-53) % MCV 82.2 (80-100) fL MCH 27.2 (26-34) PG MCHC 33.1 (30-36) % RDW 16.8 H (11.6-14.8) % Plt Count 309 (150-400) X10^3/uL Neut % (Auto) 69.4 (50-75) % Lymph % (Auto) 14.9 L (25-40) % [place] % (Auto) 12.5 (3-14) % Eos % (Auto) 2.4 (2-4) % Baso % (Auto) 0.8 (0-2) % Neut # (Auto) 6500 (2632-2466) /uL Lymph # (Auto) 1400 (9281-8319) /uL [place] # (Auto) 1200 H (0-900) /uL Eos # (Auto) 200 (0-450) /uL Baso # (Auto) 100 (0-100) /uL Sodium 139 (137-145) mmol/L Potassium 3.9 (3.4-5.1) mmol/L Chloride 107 (98-107) mmol/L Carbon Dioxide 27 (22-32) mmol/L BUN 10 (9-20) mg/dL Creatinine 0.65 L (0.66-1.25) mg/dL Estimated GFR > 60 (>60) mL/min BUN/Creatinine Ratio 15.4 (6-22) Glucose 90 (80-110) mg/dL Calcium 8.6 (8.4-10.2) mg/dL Total Bilirubin 0.5 (0.2-1.3) mg/dL AST 22 (17-59) IU/L ALT 18 (<50) IU/L Alkaline Phosphatase 85 (38-126) U/L Total Protein 7.3 (6.3-8.2) g/dL Albumin 4.1 (3.5-5.0) g/dL Globulin 3.2 (1.7-4.1) g/dL Albumin/Globulin Ratio 1.3 (1.0-2.8) Lipase 80 (23-300) U/L Imaging Data CT scan - abdomen/pelvis: Radiologist's Impression: PROCEDURE: CT ABDOMEN PELVIS W CON INDICATIONS: worsening L sided flank pain TECHNIQUE: After the administration of intravenous contrast, axial sections acquired from the lung bases to the pubic symphysis. Coronal and sagittal reformats were performed. For radiation dose reduction, the following was used: automated exposure control, adjustment of mA and/or kV according to patient size. COMPARISON: None. FINDINGS: Image quality: Diagnostic. Lower Chest: No significant findings. Bibasilar lung calcified granulomas. ABDOMEN: Liver: No solid mass. Gallbladder: Gallbladder is surgically absent. Biliary ducts: No biliary dilation. Pancreas: No ductal dilation. Spleen: Size is within normal limits. Punctate calcifications in the spleen consistent with prior granulomatous disease. Adrenal Glands: No adrenal nodules. Kidneys and Ureters: No hydronephrosis. No solid mass. No complex renal cystic lesion which requires follow up. Stomach and Bowel: Normal colonic caliber, without significant wall thickening. The appendix is normal. Peritoneum: No abnormal intraperitoneal fluid. No free air. Ventral Wall: No significant ventral hernia. Abdominal Nodes: No retroperitoneal or mesenteric adenopathy by size criteria. Vessels: Aorta and inferior vena cava are normal in size. Scattered atherosclerotic calcifications involving the abdominal and pelvic vasculature. PELVIS: Pelvic Organs: Unremarkable. Bladder: No bladder wall thickening, accounting for underdistention. Pelvic Nodes: No enlarged lymph nodes. Miscellaneous: No inguinal hernias are seen. Penile implant with reservoir in the right groin Bones: Spine degenerative disc disease and facet arthropathy. T12-L4 fixation hardware. Pubic symphysis and right iliac bone fixation hardware. IMPRESSION: No acute disease process. MDM Narrative Medical decision making narrative: Patient has had this discomfort in the past in his had a negative workup. Again here today his workup is negative as well. No skin changes concerning for zoster. No other urinary symptoms. No fevers. No further workup required in the emergency department. Recommended that he contact his primary doctor for a follow-up. Discharge Plan Departure Patient Disposition: Home Clinical Impression: Flank pain Instructions: DI for Abdominal Pain-Adult Activity Restrictions/Additional Instructions: Continue to take all of your medications as directed. Contact your primary care doctor for a follow-up. Prescriptions: No Action ipratropium bromide 21 mcg (0.03 %) spray,non-aerosol 2 spray intranasal BID PRN (Reason: Rhinorrhea) Qty: 30 0RF Rx Instructions: administer into each nostril albuterol sulfate 2.5 mg /3 mL (0.083 %) solution for nebulization 2.5 mg Continuous Nebulization Q6HP PRN (Reason: shortness of breath or wheezing) Qty: 360 2RF albuterol sulfate 90 mcg/actuation HFA aerosol inhaler 1 inh INHALATION Q4-6H PRN (Reason: shortness of breath) Qty: 18 4RF omeprazole 40 mg capsule,delayed release(DR/EC) 40 mg PO DAILY Qty: 90 3RF Rx Instructions: take 1 capsule by mouth once daily lidocaine 5 % adhesive patch,medicated 2 patch topical DAILY Qty: 30 1RF Rx Instructions: leave on most painful area for up to 12 hrs nitroglycerin 0.4 mg tablet, sublingual 0.4 mg sublingual Q5M PRN (Reason: chest pain) Qty: 20 1RF Rx Instructions: do not exceed 3 doses per episode sulfasalazine 500 mg tablet 1,000 mg PO BID Qty: 180 1RF cholecalciferol (vitamin D3) 1,250 mcg (50,000 unit) capsule 1,250 mcg PO QWEEK Qty: 12 0RF ascorbic acid (vitamin C) 500 mg tablet 500 mg PO DAILY Qty: 90 0RF Rx Instructions: Take with iron mecobalamin (vitamin B12) [B12 Active] 1,000 mcg tablet,chewable 1,000 mcg PO DAILY Qty: 90 3RF methocarbamol 750 mg tablet 750 mg PO QID PRN (Reason: pain, severe) Qty: 56 0RF metoprolol succinate 100 mg tablet extended release 24 hr 100 mg PO DAILY Qty: 90 1RF fluoxetine 20 mg capsule 20 mg PO DAILY Qty: 90 3RF Rx Instructions: Take with 10 mg to complete 30 mg dose fluoxetine 10 mg capsule See Rx Instructions .ROUTE .COMPLEX Qty: 90 3RF Dose Instruction: take 1 capsule by mouth once daily WITH 20MG CAP DAILY TOTAL 30 MG DAILY Rx Instructions: take 1 capsule by mouth once daily WITH 20MG CAP DAILY TOTAL 30 MG DAILY hydromorphone 2 mg tablet 2 mg PO BEDTIME PRN (Reason: pain) Qty: 30 0RF Rx Instructions: May refill on Dec 02, 2023 oxycodone 10 mg tablet 10 mg PO Q8H PRN (Reason: pain) Qty: 90 0RF ferrous gluconate 324 mg (37.5 mg iron) tablet 324 mg PO DAILY Qty: 90 2RF Rx Instructions: start taking daily, with food or juice nortriptyline 10 mg capsule 10 mg PO BEDTIME Qty: 30 1RF ondansetron 8 mg tablet,disintegrating 8 mg PO Q8H PRN (Reason: nausea and vomiting) Qty: 30 1RF zolmitriptan [Zomig] 5 mg tablet See Rx Instructions PO .COMPLEX Qty: 10 1RF Rx Instructions: take 1 tab at onset of headache; if no relief, may repeat 1 tab after at least 2 hrs; max = 2 tabs/24 hrs PO potassium chloride 20 mEq tablet extended release 20 meq PO BID Qty: 10 0RF valacyclovir 1 gram tablet 1,000 mg PO TID Qty: 30 0RF meclizine 25 mg tablet 25 mg PO TID PRN (Reason: dizziness) Qty: 10 0RF Disabled Parking Permit 1 1 % SEEINSTR Rx Instructions: Valid for 5 years amlodipine 5 mg tablet 5 mg PO DAILY Patient Comments: pt received dose in hospital 11/10/19 early AM admit to [facility] hydrochlorothiazide 25 mg tablet 12.5 mg PO QAM ipratropium-albuterol 0.5 mg-3 mg(2.5 mg base)/3 mL solution for nebulization 3 ml inhalation Q6H PRN (Reason: shortness of breath or wheezing) Qty: 90 0RF Referrals: Edilberto Snell, [Primary Care Provider] - Stand Alone Forms: Patient Portal/API
[2024-05-21 11:42] VITALS: BP 187/101; PULSE 87; RESP 18; O2SAT 99
== END 2024-05-21 11:36 | disposition home or self-care (01) ==
PROVIDERS: Emergency Provider Emergency Medicine; PCP Family Medicine
DX: R10.9 Unspecified abdominal pain (principal)
CPT/HCPCS: 36415; 74177; 80053; 83690; 85025; 99283; 99284; Q9967

== ENCOUNTER 2024-06-10 14:27 | Emergency (ER) | payer MEDICARE, OTHER, SELFPAY ==
[2024-02-02 03:27] VITALS: BMI 29.4
[2024-06-10 14:38] VITALS: BP 157/98; PULSE 1; RESP 18; TEMP 36.7; O2SAT 97; BMI 30.4
--- NOTE | 2024-06-10 14:43 | DI.RAD.S_ITS ---
PROCEDURE: XR HAND RT MIN 3V INDICATIONS: fall TECHNIQUE: 3 views of the hand(s) acquired. COMPARISON: None. FINDINGS: Bones: No acute fractures or dislocations. Degenerative changes throughout the hand and wrist, severe involving the radiocarpal joint. Chronic appearing ulnar styloid fracture. Carpal bones are normally aligned. No suspicious bony lesions. Soft tissues: No suspicious soft tissue calcifications. IMPRESSION: No acute fractures are seen. Chronic appearing ulnar styloid fracture. Degenerative changes throughout the hand. Dictated by: Hebert San M.D. on 06/10/2024 at 16:20 Approved by: Hebert San M.D. on 06/10/2024 at 16:21
--- NOTE | 2024-06-10 14:46 | ED_ITS ---
HPI - Fall <Cathy Jarquin PA-C - Last Filed: 06/10/24 19:19> General Chief Complaint: Fall Stated Complaint: fall Time Seen by Provider: 06/10/24 14:46 Source: patient Mode of arrival: Family Vehicle History of Present Illness HPI Narrative: 78-year-old male presents today for a fall that occurred yesterday afternoon. He states he was walking up a ramp stepped on a slug and slipped. He impacted with his right hand which is his chief complaint mainly the right thumb and index finger. He denied any popping or clicking sensations today it has a little swollen and hurts more than it did yesterday. He is also describing some low back soreness and some shoulder pain as well. He reports no precipitating events, he recalls the incident quite clearly. His dropped him off, he does have a history of multiple visits here the most recent was on May 21 for flank pain and a negative workup. No treatment tried, no ice, no pain killers, all other systems are reviewed and are negative. He takes no blood thinners. Related Data Home Medications Medication Instructions Recorded Confirmed Disabled Parking Permit 1 % SEEINS 11/08/20 06/22/24 amlodipine 5 mg tablet 5 mg PO DAILY 11/08/22 06/22/24 hydrochlorothiazide 25 mg tablet 12.5 mg PO QAM 11/15/22 06/22/24 Previous Rx's Medication Instructions Recorded albuterol sulfate 2.5 mg/3 mL 2.5 mg (3 mL) continuous 10/24/22 (0.083 %) solution for nebulization nebulization Q6HP PRN shortness of breath or wheezing #360 mL albuterol sulfate 90 mcg/actuation 1 inh inhalation Q4-6H PRN 12/27/22 aerosol inhaler shortness of breath #18 grams omeprazole 40 mg capsule,delayed 40 mg PO DAILY #90 caps 01/01/23 release lidocaine 5 % topical patch 2 patch topical DAILY #30 ea 01/08/23 potassium chloride 20 mEq 20 meq PO BID #10 tabs 02/26/23 tablet,extended release ipratropium 0.5 mg-albuterol 3 mg 3 ml inhalation Q6H PRN shortness 03/19/23 (2.5 mg base)/3 mL nebulization of breath or wheezing #90 mL soln valacyclovir 1 gram tablet 1,000 mg PO TID #30 tabs 09/02/23 nitroglycerin 0.4 mg sublingual 0.4 mg sublingual Q5M PRN chest 10/03/23 tablet pain #20 tabs ferrous gluconate 324 mg (37.5 mg 324 mg PO DAILY #90 tabs 10/22/23 iron) tablet sulfasalazine 500 mg tablet 1,000 mg (2 x 500 mg) PO BID #180 11/28/23 tabs ascorbic acid (vitamin C) 500 mg 500 mg PO DAILY #90 tabs 12/13/23 tablet cholecalciferol (vitamin D3) 1,250 1,250 mcg PO QWEEK #12 caps 12/13/23 mcg (50,000 unit) capsule nortriptyline 10 mg capsule 10 mg PO BEDTIME #30 caps 12/17/23 ondansetron 8 mg disintegrating 8 mg PO Q8H PRN nausea and 12/17/23 tablet vomiting #30 tabs zolmitriptan 5 mg tablet (Zomig) See Rx Instructions PO .COMPLEX 12/17/23 #10 tabs meclizine 25 mg tablet 25 mg PO TID PRN dizziness #10 tabs 01/23/24 mecobalamin (vitamin B12) 1,000 1,000 mcg PO DAILY #90 tabs 02/11/24 mcg chewable tablet (B12 Active) ipratropium bromide 21 mcg (0.03 2 spray intranasal BID PRN 03/05/24 %) nasal spray Rhinorrhea #30 mL methocarbamol 750 mg tablet 750 mg PO QID PRN pain, severe #56 04/02/24 tabs fluoxetine 10 mg capsule See Rx Instructions .Route 04/20/24 .COMPLEX #90 caps fluoxetine 20 mg capsule 20 mg PO DAILY #90 caps 04/20/24 metoprolol succinate 100 mg 100 mg PO DAILY #90 tabs 04/20/24 tablet,extended release 24 hr lidocaine 5 % topical patch 1 patch topical DAILY #15 ea 05/21/24 methocarbamol 500 mg tablet 500 mg PO TID Back pain/spasms #20 06/19/24 tabs hydromorphone 2 mg tablet 2 mg PO BEDTIME PRN pain #30 tabs 06/22/24 oxycodone 10 mg tablet 10 mg PO Q8H PRN pain #90 tabs 06/22/24 prednisone 5 mg tablet 5 mg PO DAILY #30 tabs 06/22/24 Allergies Allergy/AdvReac Type Severity Reaction Status Date / Time cyclobenzaprine Allergy Severe Dizziness, Verified 06/28/24 15:18 [From Flexeril] I bounce off ag ibuprofen AdvReac Intermediate Redness of Verified 06/28/24 15:18 Skin acetaminophen [ACETAMINOPHEN] AdvReac Unknown Can't take Verified 06/28/24 15:18 r/t Hep C; upset stomach Review of Systems <Cathy Jarquin PA-C - Last Filed: 06/10/24 19:19> Review of Systems Narrative: All other systems reviewed and are negative. Patient History <Cathy Jarquin PA-C - Last Filed: 06/10/24 19:19> Medical History Impaired cognition Left knee pain Chronic diarrhea Eustachian tube dysfunction Seasonal allergic rhinitis Dyspepsia Anemia Tinea Abdominal wall pain in both lower quadrants Constipation Aftercare following left shoulder joint replacement surgery Preoperative clearance Left lateral epicondylitis Adhesive capsulitis Right wrist sprain Oral lesion Colles' fracture Right wrist pain Left shoulder strain Anxiety Fibromyalgia Sinus drainage Chronic ankle pain, bilateral Rheumatoid arthritis Acute exacerbation of chronic bronchitis Foraminal stenosis of lumbar region Peripheral neuropathy Pneumonia (~2018) Impotence (Unknown) Restless leg syndrome (Unknown) Arthritis (Unknown) Chronic pain syndrome (Unknown) Kidney stones (Unknown) Prostate cancer (Unknown) Skin cancer (Unknown) Hepatitis C (Unknown) Hypertension (Unknown) Migraines (Unknown) PTSD (post-traumatic stress disorder) (Unknown) Depression (Unknown) Surgical History S/P lumbar fusion History of lumbar fusion (05/10/22) History of ankle surgery 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 Social History marital status: household members: spouse lives independently: Yes occupational status: previously employed Smoking Status: Former smoker Tobacco: How many years used: 20 quit status: has quit before alcohol intake: former substance use type: former substance user and marijuana Smoking Status: Former smoker tobacco type: cigarettes alcohol intake frequency: holidays/special occasions only Substance Use Type: does not use Exam <Cathy Jarquin PA-C - Last Filed: 06/10/24 19:19> Initial Vital Signs Initial Vital Signs: Vital Signs Temperature 98.0 F 06/10/24 14:38 Pulse Rate 1 L 06/10/24 14:38 Respiratory Rate 18 06/10/24 14:38 Blood Pressure 157/98 H 06/10/24 14:38 Pulse Oximetry 97 06/10/24 14:38 Oxygen Delivery Method Room Air 06/10/24 14:38 Reviewed and are normal except for elevated blood pressure reading today. Const Other: Smiling, seated, no distress. Work of breathing is normal. HENMT Head: normal to inspection, normocephalic and atraumatic Eyes Pupils: PERRL Neck Neck: normal visual inspection and full ROM Other: No focal bony midline tenderness. Active range of motion intact for his age. Chest Chest: normal inspection of the chest Resp Effort & Inspection: normal respiratory effort Auscultation: clear to auscultation bilaterally, no rales, no rhonchi and no wheezes Cardio Rate: regular rate Rhythm: regular rhythm Back/Spine/Pelvis Other: No focal bony midline tenderness, no swelling or discoloration. He has tenderness along the right paraspinous tissues in the thoracic region without guarding. Limited range of motion due to his discomfort but he is able to stand from a seated position without assistance. Slightly flexed from the waist which he states is his baseline. Pain is reproduced with lateral bending to the left greater than the right side. No issues identified with the hips or lower extremities. Skin General: no rashes or lesions noted, elasticity normal, turgor normal, No ecchymosis and No erythema Neuro Cognition: normal cognition Speech: speech normal Other: Distal neurovascular is grossly intact, deep tendon reflexes are equal with the knee jerk and ankle jerk. Plantar are downward. Strength is intact against resistance to his lower extremities with flexion extension abduction and a adduction. Extrem Other: Atraumatic lower extremities. Right upper shoulder slightly tender but he demonstrates full range of motion without guarding. He has focal tenderness overlying his dorsal right hand primarily the index finger MCP joint as well as the thumb MCP joint there is no discoloration or breaks in the skin. Joints are consistent with osteoarthritis with Heberden's nodes. He is able to demonstrate the letter C with pinch mechanism but this does cause pain primarily to his index finger. 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 It just causes pain. He is noted to have a slight contusion with faint purple discoloration over the index finger MCP joint on the right dorsal hand. No issues identified with the palm. No snuffbox tenderness. No ulnar tenderness. <Mirtha Jameson MD - Last Filed: 07/02/24 03:52> Initial Vital Signs Initial Vital Signs: Vital Signs Temperature 98.0 F 06/10/24 14:38 Pulse Rate 1 L 06/10/24 14:38 Respiratory Rate 18 06/10/24 14:38 Blood Pressure 157/98 H 06/10/24 14:38 Pulse Oximetry 97 06/10/24 14:38 Oxygen Delivery Method Room Air 06/10/24 14:38 Course <Cathy Jarquin PA-C - Last Filed: 06/10/24 19:19> Course Course Narrative: He was treated with oxycodone 5 mg tablet by mouth. He has had this medication in the past he has not drug naive. He did have some relief with this medication. Orders Ordered: Discontinued Medications Oxycodone HCl (Oxycodone Ir 5 Mg Tablet) 5 mg PO NOW ONE Stop: 06/10/24 16:47 Last Admin: 06/10/24 16:53 Dose: 5 mg Documented By: COLIN Vital Signs Vital signs: Vital Signs - 8 hr 06/10/24 14:38 06/10/24 17:22 Temperature 98.0 F 97.5 F L Pulse Rate 1 L 78 Respiratory Rate 18 16 Blood Pressure 157/98 H 202/107 H Pulse Oximetry 97 98 Oxygen Delivery Method Room Air Room Air <Mirtha Jameson MD - Last Filed: 07/02/24 03:52> Orders Ordered: Discontinued Medications Oxycodone HCl (Oxycodone Ir 5 Mg Tablet) 5 mg PO NOW ONE Stop: 06/10/24 16:47 Last Admin: 06/10/24 16:53 Dose: 5 mg Documented By: MPO Vital Signs Vital signs: Vital Signs - 8 hr 06/10/24 14:38 06/10/24 17:22 Temperature 98.0 F 97.5 F L Pulse Rate 1 L 78 Respiratory Rate 18 16 Blood Pressure 157/98 H 202/107 H Pulse Oximetry 97 98 Oxygen Delivery Method Room Air Room Air MDM - Fall <Cathy Jarquin PA-C - Last Filed: 06/10/24 19:19> Imaging Data Extremity x-ray #1: My Impression: Degenerative changes throughout his metacarpophalangeal joints particularly the thumb and index. Deferred to radiologist interpretation. Radiologist's Impression: PROCEDURE: XR HAND RT MIN 3V INDICATIONS: fall TECHNIQUE: 3 views of the hand(s) acquired. COMPARISON: None. FINDINGS: Bones: No acute fractures or dislocations. Degenerative changes throughout the hand and wrist, severe involving the radiocarpal joint. Chronic appearing ulnar styloid fracture. Carpal bones are normally aligned. No suspicious bony lesions. Soft tissues: No suspicious soft tissue calcifications. IMPRESSION: No acute fractures are seen. Chronic appearing ulnar styloid fracture. Degenerative changes throughout the hand. Dictated by: Hebert San M.D. on 06/10/2024 at 16:20 Approved by: Hebert San M.D. on 06/10/2024 at 16:21 [facility] Narrative Medical decision making narrative: No acute fracture, he has chronic degenerative changes and a chronic ulnar styloid fracture he has no pain in his wrist however his main complaint is his index and thumb MCP joints he is noted to have contusions here. He also has some paraspinous tissue discomfort in the thoracic and upper lumbar right greater than left, no focal midline tenderness. Likely a strain versus sprain. He is used oxycodone in the past, he denies any alcohol usage. He is allergic to Tylenol. Discussed risks associated with narcotic analgesia, his will drive him home. Discussed fall risk in the future, highly recommended that he follow up with his primary care provider to make sure he is having good interval healing. Discussed the use of an ice pack for his hand. He was splinted with a Velcro thumb spica splint he feels comfortable. His x-ray did show a chronic ulnar styloid fracture but again he has no pain in this area. Red flag warning signs reviewed in detail. He will seek medical attention if anything worsens, he develops any new worrisome symptoms, has any issues with voiding develops any numbness or tingling or weakness, or pain that does not respond to his medication. Discharge Plan Departure Patient Disposition: Home Clinical Impression: Fall, Strain of thoracic back region, Contusion of hand with skin surface intact Instructions: DI for Contusion, DI for Thoracic Back Pain Activity Restrictions/Additional Instructions: Please follow-up with your primary care provider as previously scheduled. Try to use some ice over your hand, I have prescribed oxycodone please use caution with this medication as it can cause drowsiness, no driving, you are a fall risk while taking this medication so please use extra caution. Your back strain we will also respond to ice and or heat such as a heating pad, consider an non s teroidal anti-inflammatory of choice for your pain please take with food. Please return to the emergency department if you have any worsening symptoms or new symptoms. Prescriptions: No Action ipratropium bromide 21 mcg (0.03 %) spray,non-aerosol 2 spray intranasal BID PRN (Reason: Rhinorrhea) Qty: 30 0RF Rx Instructions: administer into each nostril albuterol sulfate 2.5 mg /3 mL (0.083 %) solution for nebulization 2.5 mg Continuous Nebulization Q6HP PRN (Reason: shortness of breath or wheezing) Qty: 360 2RF albuterol sulfate 90 mcg/actuation HFA aerosol inhaler 1 inh INHALATION Q4-6H PRN (Reason: shortness of breath) Qty: 18 4RF omeprazole 40 mg capsule,delayed release(DR/EC) 40 mg PO DAILY Qty: 90 3RF Rx Instructions: take 1 capsule by mouth once daily lidocaine 5 % adhesive patch,medicated 2 patch topical DAILY Qty: 30 1RF Rx Instructions: leave on most painful area for up to 12 hrs nitroglycerin 0.4 mg tablet, sublingual 0.4 mg sublingual Q5M PRN (Reason: chest pain) Qty: 20 1RF Rx Instructions: do not exceed 3 doses per episode sulfasalazine 500 mg tablet 1,000 mg PO BID Qty: 180 1RF cholecalciferol (vitamin D3) 1,250 mcg (50,000 unit) capsule 1,250 mcg PO QWEEK Qty: 12 0RF ascorbic acid (vitamin C) 500 mg tablet 500 mg PO DAILY Qty: 90 0RF Rx Instructions: Take with iron mecobalamin (vitamin B12) [B12 Active] 1,000 mcg tablet,chewable 1,000 mcg PO DAILY Qty: 90 3RF methocarbamol 750 mg tablet 750 mg PO QID PRN (Reason: pain, severe) Qty: 56 0RF metoprolol succinate 100 mg tablet extended release 24 hr 100 mg PO DAILY Qty: 90 1RF fluoxetine 20 mg capsule 20 mg PO DAILY Qty: 90 3RF Rx Instructions: Take with 10 mg to complete 30 mg dose fluoxetine 10 mg capsule See Rx Instructions .ROUTE .COMPLEX Qty: 90 3RF Dose Instruction: take 1 capsule by mouth once daily WITH 20MG CAP DAILY TOTAL 30 MG DAILY Rx Instructions: take 1 capsule by mouth once daily WITH 20MG CAP DAILY TOTAL 30 MG DAILY prednisone 5 mg tablet 5 mg PO DAILY Qty: 30 5RF Rx Instructions: start taking every day hydromorphone 2 mg tablet 2 mg PO BEDTIME PRN (Reason: pain) Qty: 30 0RF Rx Instructions: May refill on Dec 02, 2023 oxycodone 10 mg tablet 10 mg PO Q8H PRN (Reason: pain) Qty: 90 0RF ferrous gluconate 324 mg (37.5 mg iron) tablet 324 mg PO DAILY Qty: 90 2RF Rx Instructions: start taking daily, with food or juice nortriptyline 10 mg capsule 10 mg PO BEDTIME Qty: 30 1RF ondansetron 8 mg tablet,disintegrating 8 mg PO Q8H PRN (Reason: nausea and vomiting) Qty: 30 1RF zolmitriptan [Zomig] 5 mg tablet See Rx Instructions PO .COMPLEX Qty: 10 1RF Rx Instructions: take 1 tab at onset of headache; if no relief, may repeat 1 tab after at least 2 hrs; max = 2 tabs/24 hrs PO potassium chloride 20 mEq tablet extended release 20 meq PO BID Qty: 10 0RF valacyclovir 1 gram tablet 1,000 mg PO TID Qty: 30 0RF meclizine 25 mg tablet 25 mg PO TID PRN (Reason: dizziness) Qty: 10 0RF lidocaine 5 % adhesive patch,medicated 1 patch topical DAILY Qty: 15 0RF Rx Instructions: leave on most painful area for up to 12 hrs Disabled [address]ing Permit 1 1 % SEEINSTR Rx Instructions: Valid for 5 years amlodipine 5 mg tablet 5 mg PO DAILY Patient Comments: pt received dose in hospital 11/10/19 early AM admit to [facility] hydrochlorothiazide 25 mg tablet 12.5 mg PO QAM ipratropium-albuterol 0.5 mg-3 mg(2.5 mg base)/3 mL solution for nebulization 3 ml inhalation Q6H PRN (Reason: shortness of breath or wheezing) Qty: 90 0RF methocarbamol 500 mg tablet 500 mg PO TID Qty: 20 0RF Rx Instructions: Take 1 tablet 3 times a day by mouth for 3 days, and then as needed. Referrals: Edilberto Snell, DO [Primary Care Provider] - Stand Alone Forms: Patient Portal/API ED Sign-out <Mirtha Jameson MD - Last Filed: 07/02/24 03:52> Cosign ED Attending Cosignature Attestation: I was immediately available in the department for consultation throughout this patient's visit. Mirtha Jameson MD
[2024-06-10] MEDS: OXYCODONE IR 5 MG TABLET PO (16:53)
[2024-06-10 17:22] VITALS: BP 202/107; PULSE 78; RESP 16; TEMP 36.4; O2SAT 98
== END 2024-06-10 17:24 | disposition home or self-care (01) ==
PROVIDERS: Emergency Provider Physician Assistant Medical; PCP Family Medicine
DX: S29.012A Strain of muscle and tendon of back wall of thorax, initial encounter (principal); S60.221A Contusion of right hand, initial encounter; W01.0XXA Fall on same level from slipping, tripping and stumbling without subsequent striking against object, initial encounter
CPT/HCPCS: 73130; 99283

== ENCOUNTER 2024-06-19 15:24 | Emergency (ER) | payer MEDICARE, OTHER, SELFPAY ==
[2024-02-02 03:27] VITALS: BMI 29.4
[2024-06-19 15:32] VITALS: BP 131/72; PULSE 82; RESP 16; TEMP 36.3; O2SAT 95; BMI 30.5
[2024-06-19] MEDS: KETOROLAC 30 MG/ML VIAL IM (16:18)
--- NOTE | 2024-06-19 16:18 | ED.BACK ---
HPI - Back Pain/Injury <Geovanny AntonioSHAMEKA mars - Last Filed: 06/19/24 16:50> General Chief Complaint: Back Pain/Injury Stated Complaint: low back pain, rt leg pain Time Seen by Provider: 06/19/24 15:46 History of Present Illness HPI Narrative: 78-year-old male returns to the emergency department with back pain. Patient also endorses frequent urination, which is not normal for him. Patient reports that the pain starts in his right lower back and radiates down his right buttock down the back of his leg all the way to his ankle. Pain worsens with stretching his right leg. Patient reports frequent spasming of his lower back. Home treatment has included Tylenol 1000 mg 2-3 times daily. This is the patient's 30th visit to the emergency department this year and has resulted in multiple CT scans and blood draws. Related Data Home Medications Medication Instructions Recorded Confirmed Disabled Parking Permit 1 % SEEINSTR 11/08/20 05/21/24 amlodipine 5 mg tablet 5 mg PO DAILY 11/08/22 05/21/24 hydrochlorothiazide 25 mg tablet 12.5 mg PO QAM 11/15/22 05/21/24 Previous Rx's Medication Instructions Recorded albuterol sulfate 2.5 mg/3 mL 2.5 mg (3 mL) continuous 10/24/22 (0.083 %) solution for nebulization nebulization Q6HP PRN shortness of breath or wheezing #360 mL albuterol sulfate 90 mcg/actuation 1 inh inhalation Q4-6H PRN 12/27/22 aerosol inhaler shortness of breath #18 grams omeprazole 40 mg capsule,delayed 40 mg PO DAILY #90 caps 01/01/23 release lidocaine 5 % topical patch 2 patch topical DAILY #30 ea 01/08/23 potassium chloride 20 mEq 20 meq PO BID #10 tabs 02/26/23 tablet,extended release ipratropium 0.5 mg-albuterol 3 mg 3 ml inhalation Q6H PRN shortness 03/19/23 (2.5 mg base)/3 mL nebulization of breath or wheezing #90 mL soln valacyclovir 1 gram tablet 1,000 mg PO TID #30 tabs 09/02/23 nitroglycerin 0.4 mg sublingual 0.4 mg sublingual Q5M PRN chest 10/03/23 tablet pain #20 tabs ferrous gluconate 324 mg (37.5 mg 324 mg PO DAILY #90 tabs 10/22/23 iron) tablet sulfasalazine 500 mg tablet 1,000 mg (2 x 500 mg) PO BID #180 11/28/23 tabs ascorbic acid (vitamin C) 500 mg 500 mg PO DAILY #90 tabs 12/13/23 tablet cholecalciferol (vitamin D3) 1,250 1,250 mcg PO QWEEK #12 caps 12/13/23 mcg (50,000 unit) capsule nortriptyline 10 mg capsule 10 mg PO BEDTIME #30 caps 12/17/23 ondansetron 8 mg disintegrating 8 mg PO Q8H PRN nausea and 12/17/23 tablet vomiting #30 tabs zolmitriptan 5 mg tablet (Zomig) See Rx Instructions PO .COMPLEX 12/17/23 #10 tabs meclizine 25 mg tablet 25 mg PO TID PRN dizziness #10 tabs 01/23/24 mecobalamin (vitamin B12) 1,000 1,000 mcg PO DAILY #90 tabs 02/11/24 mcg chewable tablet (B12 Active) ipratropium bromide 21 mcg (0.03 2 spray intranasal BID PRN 03/05/24 %) nasal spray Rhinorrhea #30 mL methocarbamol 750 mg tablet 750 mg PO QID PRN pain, severe #56 04/02/24 tabs fluoxetine 10 mg capsule See Rx Instructions .Route 04/20/24 .COMPLEX #90 caps fluoxetine 20 mg capsule 20 mg PO DAILY #90 caps 04/20/24 metoprolol succinate 100 mg 100 mg PO DAILY #90 tabs 04/20/24 tablet,extended release 24 hr lidocaine 5 % topical patch 1 patch topical DAILY #15 ea 05/21/24 hydromorphone 2 mg tablet 2 mg PO BEDTIME PRN pain #30 tabs 05/27/24 oxycodone 10 mg tablet 10 mg PO Q8H PRN pain #90 tabs 05/27/24 oxycodone 5 mg tablet 5 mg PO Q8H PRN pain #10 tabs 06/10/24 methocarbamol 500 mg tablet 500 mg PO TID Back pain/spasms #20 06/19/24 tabs oxycodone 5 mg tablet 5 mg PO Q6H PRN pain #10 tabs 06/19/24 Allergies Allergy/AdvReac Type Severity Reaction Status Date / Time cyclobenzaprine Allergy Severe Dizziness, Verified 06/10/24 14:44 [From Flexeril] I bounce off ag ibuprofen AdvReac Intermediate Redness of Verified 06/10/24 14:44 Skin acetaminophen [ACETAMINOPHEN] AdvReac Unknown Can't take Verified 06/10/24 14:44 r/t Hep C; upset stomach Review of Systems <SHAMEKA Hoffman - Last Filed: 06/19/24 16:50> Review of Systems Narrative: Narrative: See HPI. GENERAL: Denies chills, fatigue, fever, sweats. HEENT: Denies sinus pain, ear pain, sore throat, difficulty swallowing, dizziness. RESPIRATORY: Denies dyspnea, cough, wheezing, sputum. CARDIOVASCULAR: Denies chest pain, palpitations, edema. GASTROINTESTINAL: Denies nausea, vomiting, abdominal pain, diarrhea, constipation. : Denies dysuria, incontinence, hematuria, urinary retention, flank pain. Endorses urinary frequency. MSK: Denies weakness, joint pain, or bony pain. Endorses right-sided low back pain. SKIN: Denies rash, skin lesions, or pruritis. NEUROLOGIC: Denies weakness, dizziness, headache, numbness, confusion. Patient History <SHAMEKA Hoffman - Last Filed: 06/19/24 16:50> Medical History Left knee pain Chronic diarrhea Eustachian tube dysfunction Seasonal allergic rhinitis Dyspepsia Anemia Tinea Abdominal wall pain in both lower quadrants Constipation Aftercare following left shoulder joint replacement surgery Preoperative clearance Left lateral epicondylitis Adhesive capsulitis Right wrist sprain Oral lesion Colles' fracture Right wrist pain Left shoulder strain Anxiety Fibromyalgia Sinus drainage Chronic ankle pain, bilateral Rheumatoid arthritis Acute exacerbation of chronic bronchitis Foraminal stenosis of lumbar region Peripheral neuropathy Pneumonia (~2018) Impotence (Unknown) Restless leg syndrome (Unknown) Arthritis (Unknown) Chronic pain syndrome (Unknown) Kidney stones (Unknown) Prostate cancer (Unknown) Skin cancer (Unknown) Hepatitis C (Unknown) Hypertension (Unknown) Migraines (Unknown) PTSD (post-traumatic stress disorder) (Unknown) Depression (Unknown) Surgical History S/P lumbar fusion History of lumbar fusion (05/10/22) History of ankle surgery 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 Social History marital status: household members: spouse lives independently: Yes occupational status: previously employed Smoking Status: Former smoker Tobacco: How many years used: 20 quit status: has quit before alcohol intake: former substance use type: former substance user and marijuana Smoking Status: Former smoker tobacco type: cigarettes alcohol intake frequency: holidays/special occasions only Substance Use Type: does not use Exam <SHAMEKA Hoffman - Last Filed: 06/19/24 16:50> Narrative Exam Narrative: Exam Narrative: GENERAL: This is a well-nourished, well-developed patient, in no acute distress. HEAD: Atraumatic. Normocephalic. EYES: Pupils equal round and reactive. Extraocular motions intact. No scleral icterus, injection or drainage. ENT: Nose without bleeding, purulent drainage. Airway patent. NECK: Trachea midline. No JVD. CARDIOVASCULAR: Regular rate and rhythm without murmurs, peripheral pulses intact, cap refill <2 sec. RESPIRATORY: Breath sounds equal and clear bilaterally. No wheezes, rales, or rhonchi. No cough. No increased respiratory effort. No accessory muscle use. GASTROINTESTINAL: Abdomen soft, non-tender, nondistended without guarding or rebound. No suprapubic pain. MSK: Moves all extremities. Normal range of motion, no clubbing or edema. Neurovascularly intact. NEURO: A&O x 3. SKIN: Warm, dry, no rashes or lesions noted. BACK filter tank tender but free of any obvious external abnormalities. There is no asymmetry, swelling, bruising or wound. There is no paraspinal tenderness or CVA tenderness. SI joints nontender. No pain over spinous processes. No symptoms of cauda equina such as saddle anesthesia. Sensation is grossly intact. ROM is limited due to pain. SLE is positive on the right side Reflexes 2-3 at patella and achilles bilaterally. Resistive strengths are within normal limits Gait is antalgic. Initial Vital Signs Initial Vital Signs: Vital Signs Temperature 97.4 F L 06/19/24 15:32 Pulse Rate 82 06/19/24 15:32 Respiratory Rate 16 06/19/24 15:32 Blood Pressure 131/72 06/19/24 15:32 Pulse Oximetry 95 06/19/24 15:32 Oxygen Delivery Method Room Air 06/19/24 15:32 Reviewed <Marlon Anderson MD - Last Filed: 06/19/24 22:01> Initial Vital Signs Initial Vital Signs: Vital Signs Temperature 97.4 F L 06/19/24 15:32 Pulse Rate 82 06/19/24 15:32 Respiratory Rate 16 06/19/24 15:32 Blood Pressure 131/72 06/19/24 15:32 Pulse Oximetry 95 06/19/24 15:32 Oxygen Delivery Method Room Air 06/19/24 15:32 Course <SHAMEKA Hoffman - Last Filed: 06/19/24 16:50> Orders Ordered: ED Orders 06/19/24 16:08 Ictotest Urine Stat Urine Culture Stat Urine Microscopic Stat Discontinued Medications Ketorolac Tromethamine (Ketorolac 30 Mg/Ml Vial) 30 mg IM NOW ONE Stop: 06/19/24 16:03 Last Admin: 06/19/24 16:18 Dose: 30 mg Documented By: QUAN Vital Signs Vital signs: Vital Signs - 8 hr 06/19/24 15:32 06/19/24 17:01 Temperature 97.4 F L Pulse Rate 82 Respiratory Rate 16 16 Blood Pressure 131/72 Pulse Oximetry 95 Oxygen Delivery Method Room Air <Marlon Anderson MD - Last Filed: 06/19/24 22:01> Orders Ordered: ED Orders 06/19/24 16:08 Ictotest Urine Stat Urine Culture Stat Urine Microscopic Stat Discontinued Medications Ketorolac Tromethamine (Ketorolac 30 Mg/Ml Vial) 30 mg IM NOW ONE Stop: 06/19/24 16:03 Last Admin: 06/19/24 16:18 Dose: 30 mg Documented By: QUAN Vital Signs Vital signs: Vital Signs - 8 hr 06/19/24 15:32 06/19/24 17:01 Temperature 97.4 F L Pulse Rate 82 Respiratory Rate 16 16 Blood Pressure 131/72 Pulse Oximetry 95 Oxygen Delivery Method Room Air MDM - Back Pain/Injury <SHAMEKA Hoffman - Last Filed: 06/19/24 16:50> Differential Diagnosis Differential diagnosis: Likely lumbar radiculopathy, sciatica, strain of lumbar region and other (UTI) Lab Data Labs: Lab Results 06/19/24 Range/Units 16:08 Ur Bilirubin Confirm Negative (Negative) Urine RBC 0-1/hpf (0-5/HPF) Urine WBC 0-1/hpf (0-5/HPF) Ur Squamous Epith Cells 0-1 /hpf (0-5/HPF) Urine Bacteria Occasional (0-1) (None) Urine Mucus 3+ H D (Negative) Ur Culture Indicated? Cult not indicated Vol Urine Centrifuged Low vol <10ml (spun) A Urine Dip Bedside Urine Glucose Negative Bedside Urine Bilirubin + 1 Bedside Urine Ketone ++ 40 Urine Specific [place] 1.030 Bedside Urine Occult Blood - Negative Bedside Urine pH 6.0 Bedside Urine Protein ++ 100 Bedside Urine Urobilinogen - Negative Bedside Urine Nitrite - Negative Bedside Urine Leukocytes +/- 15 Esterase MDM Narrative Medical decision making narrative: 78-year-old male with low back pain. Assessment and clinical findings were suggestive low back spasms and right-sided sciatica. Point of care urine dip was not consistent with a UTI. Will provide a single dose of Toradol. Discussed a nonsedating muscle relaxer such as methocarbamol, as he has a allergy to Flexeril. Recommended patient continue with the Tylenol 1000 mg 3 times a day, Voltaren gel and warm compresses and will provide a very short course of pain medication. Discussed plan of care and return precautions with patient, who verbalized understanding and was agreeable with course of action. <Marlon Anderson MD - Last Filed: 06/19/24 22:01> Lab Data Labs: Lab Results 06/19/24 Range/Units 16:08 Ur Bilirubin Confirm Negative (Negative) Urine RBC 0-1/hpf (0-5/HPF) Urine WBC 0-1/hpf (0-5/HPF) Ur Squamous Epith Cells 0-1 /hpf (0-5/HPF) Urine Bacteria Occasional (0-1) (None) Urine Mucus 3+ H D (Negative) Ur Culture Indicated? Cult not indicated Vol Urine Centrifuged Low vol <10ml (spun) A Urine Dip Bedside Urine Glucose Negative Bedside Urine Bilirubin + 1 Bedside Urine Ketone ++ 40 Urine Specific [place] 1.030 Bedside Urine Occult Blood - Negative Bedside Urine pH 6.0 Bedside Urine Protein ++ 100 Bedside Urine Urobilinogen - Negative Bedside Urine Nitrite - Negative Bedside Urine Leukocytes +/- 15 Esterase Discharge Plan Departure Patient Disposition: Home Clinical Impression: Spasm of muscle of lower back Sciatica Qualifiers: Laterality: right Qualified Code(s): M54.31 - Sciatica, right side Instructions: DI for Back Pain With Sciatica, DI for Back Spasm Activity Restrictions/Additional Instructions: *You have been diagnosed with low back spasms and sciatica. Your urine test was normal and not consistent with urinary tract infection. We have given you a single dose Toradol, which should help with some of your discomfort. I will prescribe a muscle relaxer for your back spasms and a short course of pain medication for breakthrough pain. You should continue taking 1000 mg of Tylenol 3 times a day as a baseline for your pain, and use the pain medication only for the most severe pain. As we discussed, you have been using a significant amount of pain medication, which is not good. *What to do: *Please continue to take your regular medications as directed. [ x] New medication prescriptions sent to your pharmacy: [[facility]] [ ] New medication written as a paper prescription [ ] No new medications given *Please follow up with your primary care provider in 2-3 days, call for an appointment. Let them know you were seen in the Emergency Department and that we ask that you be seen in follow up. We will electronically transmit a record of today's note if your PCP is in our system *If you do not have a primary care provider please contact the [facility] Resource line at [phone]. They will ask some questions about your medical history and help get you set up with a doctor in the community. ? Return to ER if you should have any new, worsening or concerning symptoms, such as worsening pain, severe headache, confusion, chest pain, difficulty breathing, fever greater than 101 F, shaking chills, persistent vomiting to the point that you cannot drink fluids, or other new or worsening symptoms. Prescriptions: New methocarbamol 500 mg tablet 500 mg PO TID Qty: 20 0RF Rx Instructions: Take 1 tablet 3 times a day by mouth for 3 days, and then as needed. oxycodone 5 mg tablet 5 mg PO Q6H PRN (Reason: pain) Qty: 10 0RF No Action ipratropium bromide 21 mcg (0.03 %) spray,non-aerosol 2 spray intranasal BID PRN (Reason: Rhinorrhea) Qty: 30 0RF Rx Instructions: administer into each nostril albuterol sulfate 2.5 mg /3 mL (0.083 %) solution for nebulization 2.5 mg Continuous Nebulization Q6HP PRN (Reason: shortness of breath or wheezing) Qty: 360 2RF albuterol sulfate 90 mcg/actuation HFA aerosol inhaler 1 inh INHALATION Q4-6H PRN (Reason: shortness of breath) Qty: 18 4RF omeprazole 40 mg capsule,delayed release(DR/EC) 40 mg PO DAILY Qty: 90 3RF Rx Instructions: take 1 capsule by mouth once daily lidocaine 5 % adhesive patch,medicated 2 patch topical DAILY Qty: 30 1RF Rx Instructions: leave on most painful area for up to 12 hrs nitroglycerin 0.4 mg tablet, sublingual 0.4 mg sublingual Q5M PRN (Reason: chest pain) Qty: 20 1RF Rx Instructions: do not exceed 3 doses per episode sulfasalazine 500 mg tablet 1,000 mg PO BID Qty: 180 1RF cholecalciferol (vitamin D3) 1,250 mcg (50,000 unit) capsule 1,250 mcg PO QWEEK Qty: 12 0RF ascorbic acid (vitamin C) 500 mg tablet 500 mg PO DAILY Qty: 90 0RF Rx Instructions: Take with iron mecobalamin (vitamin B12) [B12 Active] 1,000 mcg tablet,chewable 1,000 mcg PO DAILY Qty: 90 3RF methocarbamol 750 mg tablet 750 mg PO QID PRN (Reason: pain, severe) Qty: 56 0RF metoprolol succinate 100 mg tablet extended release 24 hr 100 mg PO DAILY Qty: 90 1RF fluoxetine 20 mg capsule 20 mg PO DAILY Qty: 90 3RF Rx Instructions: Take with 10 mg to complete 30 mg dose fluoxetine 10 mg capsule See Rx Instructions .ROUTE .COMPLEX Qty: 90 3RF Dose Instruction: take 1 capsule by mouth once daily WITH 20MG CAP DAILY TOTAL 30 MG DAILY Rx Instructions: take 1 capsule by mouth once daily WITH 20MG CAP DAILY TOTAL 30 MG DAILY oxycodone 10 mg tablet 10 mg PO Q8H PRN (Reason: pain) Qty: 90 0RF hydromorphone 2 mg tablet 2 mg PO BEDTIME PRN (Reason: pain) Qty: 30 0RF Rx Instructions: May refill on Dec 02, 2023 ferrous gluconate 324 mg (37.5 mg iron) tablet 324 mg PO DAILY Qty: 90 2RF Rx Instructions: start taking daily, with food or juice nortriptyline 10 mg capsule 10 mg PO BEDTIME Qty: 30 1RF ondansetron 8 mg tablet,disintegrating 8 mg PO Q8H PRN (Reason: nausea and vomiting) Qty: 30 1RF zolmitriptan [Zomig] 5 mg tablet See Rx Instructions PO .COMPLEX Qty: 10 1RF Rx Instructions: take 1 tab at onset of headache; if no relief, may repeat 1 tab after at least 2 hrs; max = 2 tabs/24 hrs PO potassium chloride 20 mEq tablet extended release 20 meq PO BID Qty: 10 0RF valacyclovir 1 gram tablet 1,000 mg PO TID Qty: 30 0RF meclizine 25 mg tablet 25 mg PO TID PRN (Reason: dizziness) Qty: 10 0RF lidocaine 5 % adhesive patch,medicated 1 patch topical DAILY Qty: 15 0RF Rx Instructions: leave on most painful area for up to 12 hrs oxycodone 5 mg tablet 5 mg PO Q8H PRN (Reason: pain) Qty: 10 0RF Disabled Parking Permit 1 1 % SEEINSTR Rx Instructions: Valid for 5 years amlodipine 5 mg tablet 5 mg PO DAILY Patient Comments: pt received dose in hospital 11/10/19 early AM admit to AC hydrochlorothiazide 25 mg tablet 12.5 mg PO QAM ipratropium-albuterol 0.5 mg-3 mg(2.5 mg base)/3 mL solution for nebulization 3 ml inhalation Q6H PRN (Reason: shortness of breath or wheezing) Qty: 90 0RF Referrals: Edilberto Snell DO [Primary Care Provider] - Stand Alone Forms: Patient Portal/API ED Sign-out <Marlon Anderson MD - Last Filed: 06/19/24 22:01> Cosign ED Attending Cosnickature Attestation: I was immediately available in the department for consultation. This documentation has been reviewed and I agree with assessment and plan. Supervised by Marlon Anderson MD
[2024-06-19 16:28] LABS: Bacteria Urine Occasional (0-1); Culture Indicated Urine Cult Not Indicated; Ictotest Urine Negative (Negative); Mucus Urine 3+ (Negative); RBC Urine 0-1/HPF (0-5/HPF); Squamous Epithelial Cell Urine 0-1 /HPF (0-5/HPF); Urine Volume Low Vol <10mL (spun); WBC Urine 0-1/HPF (0-5/HPF)
--- NOTE | 2024-06-19 16:59 | PC.NURSE ---
Pt ambulated out of department w/o issue
--- NOTE | 2024-06-19 16:59 | PC.NURSE ---
right sided back pain and right leg pain. No deformity. Pt states he took a small dose of ibuprofen this morning. Pt able to ambulate w/n department.
[2024-06-19 17:01] VITALS: RESP 16
== END 2024-06-19 17:01 | disposition home or self-care (01) ==
PROVIDERS: Emergency Provider Registered Nurse; PCP Family Medicine
DX: M62.830 Muscle spasm of back (principal); M54.31 Sciatica, right side
CPT/HCPCS: 81003; 81015; 87086; 96372; 99283; J1885

== ENCOUNTER 2024-06-28 15:06 | Emergency (ER) | payer MEDICARE, OTHER, SELFPAY ==
[2024-02-02 03:27] VITALS: BMI 29.4
[2024-06-28] VITALS (7 sets, daily range): BP systolic 134–169; BP diastolic 64–84; PULSE 67–80; RESP 17–24; TEMP 36.8; O2SAT 91–96; BMI 31.8
--- NOTE | 2024-06-28 15:15 | DI.RAD.S_ITS ---
PROCEDURE: XR CHEST 1V INDICATIONS: COUGH, WHEEZING X 2 DAYS TECHNIQUE: One view of the chest was acquired. COMPARISON: [facility], CR, XR CHEST 1V, 04/18/2024, 3:55. FINDINGS: Surgical changes and devices: Bilateral shoulder arthroplasty. Partially imaged lumbar fusion hardware. Lungs and pleura: Mild diffuse interstitial prominence. Patchy right basilar opacities not significantly changed. Stable subcentimeter pulmonary nodule in the right lower lung zone. No dense consolidation. No pleural effusions or pneumothorax. Mediastinum: Mediastinal contours appear normal. Heart size is normal. Bones and chest wall: No suspicious bony lesions. Overlying soft tissues appear unremarkable. IMPRESSION: Mild diffuse interstitial prominence and patchy right basilar opacity which may represent an infectious or inflammatory process. No dense consolidations. Dictated by: Tereso Parnell M.D. on 06/28/2024 at 15:07 Approved by: Tereso Parnell M.D. on 06/28/2024 at 15:09
[2024-06-28] MEDS: ALBUTEROL/IPRATROPIUM 3 ML AMPUL INH (15:23)
--- NOTE | 2024-06-28 15:25 | ED.URI ---
HPI - URI/Sore Throat General Chief Complaint: Upper Respiratory Symptoms Stated Complaint: Coughing, Low Fever, Dizzyness Time Seen by Provider: 06/28/24 15:14 Source: patient and family Mode of arrival: Ambulatory History of Present Illness HPI Narrative: 78-year-old male very well known to this emergency department presents for nonproductive cough, reported fever at home for 2 days. states that today the cough moved ?into his chest? and so he was here for evaluation. Related Data Home Medications Medication Instructions Recorded Confirmed Disabled Parking Permit 1 % SEEINSTR 11/08/20 06/22/24 amlodipine 5 mg tablet 5 mg PO DAILY 11/08/22 06/22/24 hydrochlorothiazide 25 mg tablet 12.5 mg PO QAM 11/15/22 06/22/24 Previous Rx's Medication Instructions Recorded albuterol sulfate 2.5 mg/3 mL 2.5 mg (3 mL) continuous 10/24/22 (0.083 %) solution for nebulization nebulization Q6HP PRN shortness of breath or wheezing #360 mL albuterol sulfate 90 mcg/actuation 1 inh inhalation Q4-6H PRN 12/27/22 aerosol inhaler shortness of breath #18 grams omeprazole 40 mg capsule,delayed 40 mg PO DAILY #90 caps 01/01/23 release lidocaine 5 % topical patch 2 patch topical DAILY #30 ea 01/08/23 potassium chloride 20 mEq 20 meq PO BID #10 tabs 02/26/23 tablet,extended release ipratropium 0.5 mg-albuterol 3 mg 3 ml inhalation Q6H PRN shortness 03/19/23 (2.5 mg base)/3 mL nebulization of breath or wheezing #90 mL soln valacyclovir 1 gram tablet 1,000 mg PO TID #30 tabs 09/02/23 nitroglycerin 0.4 mg sublingual 0.4 mg sublingual Q5M PRN chest 10/03/23 tablet pain #20 tabs ferrous gluconate 324 mg (37.5 mg 324 mg PO DAILY #90 tabs 10/22/23 iron) tablet sulfasalazine 500 mg tablet 1,000 mg (2 x 500 mg) PO BID #180 11/28/23 tabs ascorbic acid (vitamin C) 500 mg 500 mg PO DAILY #90 tabs 03/01/24 tablet cholecalciferol (vitamin D3) 1,250 1,250 mcg PO QWEEK #12 caps 12/13/23 mcg (50,000 unit) capsule nortriptyline 10 mg capsule 10 mg PO BEDTIME #30 caps 12/17/23 ondansetron 8 mg disintegrating 8 mg PO Q8H PRN nausea and 12/17/23 tablet vomiting #30 tabs zolmitriptan 5 mg tablet (Zomig) See Rx Instructions PO .COMPLEX 12/17/23 #10 tabs meclizine 25 mg tablet 25 mg PO TID PRN dizziness #10 tabs 01/23/24 mecobalamin (vitamin B12) 1,000 1,000 mcg PO DAILY #90 tabs 02/11/24 mcg chewable tablet (B12 Active) ipratropium bromide 21 mcg (0.03 2 spray intranasal BID PRN 03/05/24 %) nasal spray Rhinorrhea #30 mL methocarbamol 750 mg tablet 750 mg PO QID PRN pain, severe #56 04/02/24 tabs fluoxetine 10 mg capsule See Rx Instructions .Route 04/20/24 .COMPLEX #90 caps fluoxetine 20 mg capsule 20 mg PO DAILY #90 caps 04/20/24 metoprolol succinate 100 mg 100 mg PO DAILY #90 tabs 04/20/24 tablet,extended release 24 hr lidocaine 5 % topical patch 1 patch topical DAILY #15 ea 05/21/24 methocarbamol 500 mg tablet 500 mg PO TID Back pain/spasms #20 06/19/24 tabs hydromorphone 2 mg tablet 2 mg PO BEDTIME PRN pain #30 tabs 06/22/24 oxycodone 10 mg tablet 10 mg PO Q8H PRN pain #90 tabs 06/22/24 prednisone 5 mg tablet 5 mg PO DAILY #30 tabs 06/22/24 Allergies Allergy/AdvReac Type Severity Reaction Status Date / Time cyclobenzaprine Allergy Severe Dizziness, Verified 06/28/24 15:18 [From Flexeril] I bounce off ag ibuprofen AdvReac Intermediate Redness of Verified 06/28/24 15:18 Skin acetaminophen [ACETAMINOPHEN] AdvReac Unknown Can't take Verified 06/28/24 15:18 r/t Hep C; upset stomach Patient History Medical History Impaired cognition Left knee pain Chronic diarrhea Eustachian tube dysfunction Seasonal allergic rhinitis Dyspepsia Anemia Tinea Abdominal wall pain in both lower quadrants Constipation Aftercare following left shoulder joint replacement surgery Preoperative clearance Left lateral epicondylitis Adhesive capsulitis Right wrist sprain Oral lesion Colles' fracture Right wrist pain Left shoulder strain Anxiety Fibromyalgia Sinus drainage Chronic ankle pain, bilateral Rheumatoid arthritis Acute exacerbation of chronic bronchitis Foraminal stenosis of lumbar region Peripheral neuropathy Pneumonia (~2018) Impotence (Unknown) Restless leg syndrome (Unknown) Arthritis (Unknown) Chronic pain syndrome (Unknown) Kidney stones (Unknown) Prostate cancer (Unknown) Skin cancer (Unknown) Hepatitis C (Unknown) Hypertension (Unknown) Migraines (Unknown) PTSD (post-traumatic stress disorder) (Unknown) Depression (Unknown) Surgical History S/P lumbar fusion History of lumbar fusion (05/10/22) History of ankle surgery 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 Social History marital status: household members: spouse lives independently: Yes occupational status: previously employed Smoking Status: Former smoker Tobacco: How many years used: 20 quit status: has quit before alcohol intake: former substance use type: former substance user and marijuana Smoking Status: Former smoker tobacco type: cigarettes alcohol intake frequency: holidays/special occasions only Substance Use Type: does not use Exam Initial Vital Signs Initial Vital Signs: Vital Signs Temperature 98.3 F 06/28/24 15:08 Pulse Rate 74 06/28/24 15:08 Respiratory Rate 24 06/28/24 15:08 Blood Pressure 150/84 H 06/28/24 15:08 Pulse Oximetry 93 06/28/24 15:08 Oxygen Delivery Method Room Air 06/28/24 15:08 Const: Awake, alert, no acute distress, nontoxic appearing Cardiac: regular rate, regular rhythm RESP: unlabored, faint expiratory wheezes upper lung brown Skin: Warm, Dry, intact, no rashes Neuro: AO x3, CN II-XII grossly intact, moves all extremities Course Orders Ordered: ED Orders 06/28/24 15:15 XR chest 1V Stat Respiratory Panel (Film Array) Stat 06/28/24 15:20 CBC Auto Diff [Complete Blood Count AUTO DIFF] Stat CMP [Comprehensive Metabolic Panel] Stat Discontinued Medications Albuterol/Ipratropium (Albuterol/Ipratropium 3 Ml Ampul) 3 ml INH NOW ONE Stop: 06/28/24 15:19 Albuterol/Ipratropium (Albuterol/Ipratropium 3 Ml Ampul) 3 ml INH NOW ONE Stop: 06/28/24 15:16 Last Admin: 06/28/24 15:23 Dose: 3 ml Documented By: ANNE Vital Signs Vital signs: Vital Signs - 8 hr 06/28/24 15:08 06/28/24 15:10 06/28/24 15:12 Temperature 98.3 F Pulse Rate 74 80 72 Respiratory Rate 24 Blood Pressure 150/84 H Pulse Oximetry 93 91 96 Oxygen Delivery Method Room Air Fraction of Inspired Oxygen 06/28/24 15:12 06/28/24 15:14 06/28/24 15:14 Temperature Pulse Rate 69 Respiratory Rate 17 Blood Pressure 169/76 H 150/84 H Pulse Oximetry 96 Oxygen Delivery Method Fraction of Inspired Oxygen 06/28/24 15:26 Temperature Pulse Rate 67 Respiratory Rate 18 Blood Pressure Pulse Oximetry 96 Oxygen Delivery Method Room Air Fraction of Inspired Oxygen 20 MDM - URI/Sore Throat Lab Data 06/28/24 15:20 06/28/24 15:20 Labs: Lab Results 06/28/24 06/28/24 Range/Units 15:15 15:20 WBC 6.3 (4.5-11.0) X10^3/uL RBC 3.46 L (4.5-5.9) X10^6/uL Hgb 9.6 L (13.5-17.5) g/dL Hct 28.6 L (41-53) % MCV 82.6 (80-100) fL MCH 27.8 (26-34) PG MCHC 33.7 (30-36) % RDW 15.5 H (11.6-14.8) % Plt Count 178 (150-400) X10^3/uL Neut % (Auto) 74.1 (50-75) % Lymph % (Auto) 7.9 L (25-40) % Rich % (Auto) 14.9 H (3-14) % Eos % (Auto) 2.8 (2-4) % Baso % (Auto) 0.3 (0-2) % Neut # (Auto) 4700 (4466-2663) /uL Lymph # (Auto) 500 L (2014-7068) /uL Rich # (Auto) 900 (0-900) /uL Eos # (Auto) 200 (0-450) /uL Baso # (Auto) 0 (0-100) /uL Sodium 129 L (137-145) mmol/L Potassium 4.3 (3.4-5.1) mmol/L Chloride 94 L (98-107) mmol/L Carbon Dioxide 33 H (22-32) mmol/L BUN 9 (9-20) mg/dL Creatinine 0.75 (0.66-1.25) mg/dL Estimated GFR > 60 (>60) mL/min BUN/Creatinine Ratio 12.0 (6-22) Glucose 107 (80-110) mg/dL Calcium 8.5 (8.4-10.2) mg/dL Total Bilirubin 0.3 (0.2-1.3) mg/dL AST 22 (17-59) IU/L ALT 15 (<50) IU/L Alkaline Phosphatase 66 (38-126) U/L Total Protein 6.3 (6.3-8.2) g/dL Albumin 3.4 L (3.5-5.0) g/dL Globulin 2.9 (1.7-4.1) g/dL Albumin/Globulin Ratio 1.2 (1.0-2.8) Chlamy pneumoniae PCR Not detected (Not Detect) Adenovirus (PCR) Not detected (Not Detect) B.parapertussis DNA PCR Not detected (Not Detecte) Coronavirus OC43 (PCR) Not detected (Not Detect) Coronavirus HKU1 (PCR) Not detected (Not Detect) Coronavirus 229E (PCR) Not detected (Not Detect) SARS-CoV-2 (PCR) Detected H (Not Detecte) Coronavirus NL63 (PCR) Not detected (Not Detect) Human Metapneumovir PCR Not detected (Not Detect) Influenza Type A (PCR) Not detected (Not Detect) Influenza Type B (PCR) Not detected (Not Detect) M. pneumoniae (PCR) Not detected (Not Detect) Parainfluenza 1 (PCR) Not detected (Not Detect) Parainfluenza 2 (PCR) Not detected (Not Detect) Parainfluenza 3 (PCR) Not detected (Not Detect) Parainfluenza 4 (PCR) Not detected (Not Detect) RSV (PCR) Not detected (Not Detect) Entero/Rhino (PCR) Not detected (Not Detect) Imaging Data Chest x-ray: Radiologist's Impression: PROCEDURE: XR CHEST 1V INDICATIONS: COUGH, WHEEZING X 2 DAYS TECHNIQUE: One view of the chest was acquired. COMPARISON: [facility], , XR CHEST 1V, 04/18/2024, 3:55. FINDINGS: Surgical changes and devices: Bilateral shoulder arthroplasty. Partially imaged lumbar fusion hardware. Lungs and pleura: Mild diffuse interstitial prominence. Patchy right basilar opacities not significantly changed. Stable subcentimeter pulmonary nodule in the right lower lung zone. No dense consolidation. No pleural effusions or pneumothorax. Mediastinum: Mediastinal contours appear normal. Heart size is normal. Bones and chest wall: No suspicious bony lesions. Overlying soft tissues appear unremarkable. IMPRESSION: Mild diffuse interstitial prominence and patchy right basilar opacity which may represent an infectious or inflammatory process. No dense consolidations. Dictated by: Tereso Parnell M.D. on 06/28/2024 at 15:07 Approved by: Tereso Parnell M.D. on 06/28/2024 at 15:09 [facility] Narrative Medical decision making narrative: Cough, reported fever at home. Patient afebrile at this time. Faint wheezes heard in the upper lung brown, Respiratory therapy paged to administer nebulizer treatment. Laboratory work and x-ray imaging ordered. Laboratory work reviewed, consistent with the patient's baseline. Chest x-ray shows mild patchy right basilar opacity, however this has been seen on previous chest x-ray from April, do not suspect acute infectious process at this time based on no leukocytosis and respiratory panel positive for COVID-19, which would explain patient's symptoms. In addition a CT obtained in May of 2024 showed that patient has bibasilar calcified granulomas, which may also be causing the abnormal chest x-ray findings. Patient counseled on lab and imaging findings, recommended close PCP follow up. Patient requested a shot of IV Dilaudid for his chronic back pain, patient was instructed to take his normal home medications. Discharge Plan Departure Patient Disposition: Home Clinical Impression: COVID-19 Instructions: DI for COVID-19 (Suspected or Confirmed ) Activity Restrictions/Additional Instructions: YOU TESTED positive for COVID-19, which is likely the cause of your symptoms. Continue to take all of your normal medications as prescribed, you may take low-dose Tylenol for fever, which should not affect your liver badly. Follow up as needed with your primary care doctor. Prescriptions: No Action ipratropium bromide 21 mcg (0.03 %) spray,non-aerosol 2 spray intranasal BID PRN (Reason: Rhinorrhea) Qty: 30 0RF Rx Instructions: administer into each nostril albuterol sulfate 2.5 mg /3 mL (0.083 %) solution for nebulization 2.5 mg Continuous Nebulization Q6HP PRN (Reason: shortness of breath or wheezing) Qty: 360 2RF albuterol sulfate 90 mcg/actuation HFA aerosol inhaler 1 inh INHALATION Q4-6H PRN (Reason: shortness of breath) Qty: 18 4RF omeprazole 40 mg capsule,delayed release(DR/EC) 40 mg PO DAILY Qty: 90 3RF Rx Instructions: take 1 capsule by mouth once daily lidocaine 5 % adhesive patch,medicated 2 patch topical DAILY Qty: 30 1RF Rx Instructions: leave on most painful area for up to 12 hrs nitroglycerin 0.4 mg tablet, sublingual 0.4 mg sublingual Q5M PRN (Reason: chest pain) Qty: 20 1RF Rx Instructions: do not exceed 3 doses per episode sulfasalazine 500 mg tablet 1,000 mg PO BID Qty: 180 1RF cholecalciferol (vitamin D3) 1,250 mcg (50,000 unit) capsule 1,250 mcg PO QWEEK Qty: 12 0RF ascorbic acid (vitamin C) 500 mg tablet 500 mg PO DAILY Qty: 90 0RF Rx Instructions: Take with iron mecobalamin (vitamin B12) [B12 Active] 1,000 mcg tablet,chewable 1,000 mcg PO DAILY Qty: 90 3RF methocarbamol 750 mg tablet 750 mg PO QID PRN (Reason: pain, severe) Qty: 56 0RF metoprolol succinate 100 mg tablet extended release 24 hr 100 mg PO DAILY Qty: 90 1RF fluoxetine 20 mg capsule 20 mg PO DAILY Qty: 90 3RF Rx Instructions: Take with 10 mg to complete 30 mg dose fluoxetine 10 mg capsule See Rx Instructions .ROUTE .COMPLEX Qty: 90 3RF Dose Instruction: take 1 capsule by mouth once daily WITH 20MG CAP DAILY TOTAL 30 MG DAILY Rx Instructions: take 1 capsule by mouth once daily WITH 20MG CAP DAILY TOTAL 30 MG DAILY prednisone 5 mg tablet 5 mg PO DAILY Qty: 30 5RF Rx Instructions: start taking every day hydromorphone 2 mg tablet 2 mg PO BEDTIME PRN (Reason: pain) Qty: 30 0RF Rx Instructions: May refill on Dec 02, 2023 oxycodone 10 mg tablet 10 mg PO Q8H PRN (Reason: pain) Qty: 90 0RF ferrous gluconate 324 mg (37.5 mg iron) tablet 324 mg PO DAILY Qty: 90 2RF Rx Instructions: start taking daily, with food or juice nortriptyline 10 mg capsule 10 mg PO BEDTIME Qty: 30 1RF ondansetron 8 mg tablet,disintegrating 8 mg PO Q8H PRN (Reason: nausea and vomiting) Qty: 30 1RF zolmitriptan [Zomig] 5 mg tablet See Rx Instructions PO .COMPLEX Qty: 10 1RF Rx Instructions: take 1 tab at onset of headache; if no relief, may repeat 1 tab after at least 2 hrs; max = 2 tabs/24 hrs PO potassium chloride 20 mEq tablet extended release 20 meq PO BID Qty: 10 0RF valacyclovir 1 gram tablet 1,000 mg PO TID Qty: 30 0RF meclizine 25 mg tablet 25 mg PO TID PRN (Reason: dizziness) Qty: 10 0RF lidocaine 5 % adhesive patch,medicated 1 patch topical DAILY Qty: 15 0RF Rx Instructions: leave on most painful area for up to 12 hrs Disabled Parking Permit 1 1 % SEEINSTR Rx Instructions: Valid for 5 years amlodipine 5 mg tablet 5 mg PO DAILY Patient Comments: pt received dose in hospital 11/10/19 early AM admit to hydrochlorothiazide 25 mg tablet 12.5 mg PO QAM ipratropium-albuterol 0.5 mg-3 mg(2.5 mg base)/3 mL solution for nebulization 3 ml inhalation Q6H PRN (Reason: shortness of breath or wheezing) Qty: 90 0RF methocarbamol 500 mg tablet 500 mg PO TID Qty: 20 0RF Rx Instructions: Take 1 tablet 3 times a day by mouth for 3 days, and then as needed. Referrals: Edilberto Snell, [Primary Care Provider] - Stand Alone Forms: Patient Portal/API
[2024-06-28 15:31] LABS: Add Manual Diff / Slide Review NO; Basophils Absolute Auto 0 /uL (0-100); Basophils Percent Auto 0.3 % (0-2); Eosinophils Absolute Auto 200 /uL (0-450); Eosinophils Percent Auto 2.8 % (2-4); Hematocrit 28.6 % (41-53); Hemoglobin 9.6 g/dL (13.5-17.5); Lymphocytes Absolute Auto 500 /uL (1100-4500); Lymphocytes Percent Auto 7.9 % (25-40); Mean Corpuscular HGB Conc 33.7 % (30-36); Mean Corpuscular Hemoglobin 27.8 PG (26-34); Mean Corpuscular Volume 82.6 fL (80-100); Monocytes Absolute Auto 900 /uL (0-900); Monocytes Percent Auto 14.9 % (3-14); Neutrophils Absolute Auto 4700 /uL (1500-7000); Neutrophils Percent Auto 74.1 % (50-75); Platelet Count 178 X10^3/uL (150-400); Red Blood Cell Count 3.46 X10^6/uL (4.5-5.9); Red Cell Distribution Width 15.5 % (11.6-14.8); White Blood Cell Count 6.3 X10^3/uL (4.5-11.0)
[2024-06-28 15:43] LABS: Alanine Aminotransferase 15 IU/L (<50); Albumin 3.4 g/dL (3.5-5.0); Albumin Globulin Ratio 1.2 (1.0-2.8); Alkaline Phosphatase 66 U/L (38-126); Aspartate Aminotransferase 22 IU/L (17-59); Bilirubin Total 0.3 mg/dL (0.2-1.3); Blood Urea Nitrogen 9 mg/dL (9-20); Calcium 8.5 mg/dL (8.4-10.2); Carbon Dioxide 33 mmol/L (22-32); Chloride 94 mmol/L (98-107); Estimated Glomerular Filt Rate > 60 mL/min (>60); Globulin 2.9 g/dL (1.7-4.1); Glucose 107 mg/dL (80-110); HEMOLYSIS < 15 (0-50); Potassium 4.3 mmol/L (3.4-5.1); Sodium 129 mmol/L (137-145); Total Protein 6.3 g/dL (6.3-8.2)
[2024-06-28 16:11] LABS: Adenovirus Not Detected (Not Detect); B. parapertussis Not Detected (Not Detecte); Bordetella pertussis Not Detected (Not Detect); Chlamydophila pneumoniae Not Detected (Not Detect); Coronavirus 229E Not Detected (Not Detect); Coronavirus HKU1 Not Detected (Not Detect); Coronavirus NL 63 Not Detected (Not Detect); Coronavirus OC43 Not Detected (Not Detect); Human Metapneumovirus Not Detected (Not Detect); Human Rhinovirus/Enterovirus Not Detected (Not Detect); Influenza A Not Detected (Not Detect); Influenza B Not Detected (Not Detect); Mycoplasma pneumoniae Not Detected (Not Detect); Parainfluenza Virus 1 Not Detected (Not Detect); Parainfluenza Virus 2 Not Detected (Not Detect); Parainfluenza Virus 3 Not Detected (Not Detect); Parainfluenza Virus 4 Not Detected (Not Detect); Respiratory Syncytial Virus Not Detected (Not Detect)
[2024-06-28 16:16] LABS: SARS- CoV-2 Detected (Not Detecte)
== END 2024-06-28 16:34 | disposition home or self-care (01) ==
PROVIDERS: Emergency Provider Emergency Medicine; PCP Family Medicine
DX: U07.1 COVID-19 (principal)
CPT/HCPCS: 36415; 71045; 80053; 85025; 87633; 99283; 99284

== ENCOUNTER 2024-07-02 17:38 | Emergency (ER) | payer MEDICARE, OTHER, SELFPAY ==
[2024-02-02 03:27] VITALS: BMI 29.4
[2024-07-02 17:42] VITALS: BP 150/99; PULSE 80; RESP 18; TEMP 36.6; O2SAT 98; BMI 30.7
--- NOTE | 2024-07-02 17:45 | DI.RAD.S_ITS ---
PROCEDURE: XR CLAVICLE LT INDICATIONS: fall/pain TECHNIQUE: 2 views of the clavicle were acquired. COMPARISON: None. FINDINGS: Bones: No fractures or dislocations. No suspicious bony lesions. Soft tissues: No suspicious soft tissue calcifications. IMPRESSION: No acute bony abnormality. Approved by: Kaya Leigh M.D.,Ph.D. on 07/02/2024 at 18:36
--- NOTE | 2024-07-02 17:45 | DI.RAD.S_ITS ---
PROCEDURE: XR SHOULDER LT MIN 2V INDICATIONS: fall/pain TECHNIQUE: 3 views of the shoulder were acquired. COMPARISON: [facility], , XR SHOULDER LT MIN 2V, 01/10/2024, 18:10. FINDINGS: Bones: Status post left shoulder total arthroplasty. Prosthetic elements appear to be in appropriate position. No fractures or dislocations. No suspicious bony lesions. Visualized ribs appear intact. Soft tissues: No suspicious soft tissue calcifications. IMPRESSION: No acute bony abnormality. Stable postoperative appearance of left shoulder arthroplasty. Approved by: Kaya Leigh M.D.,Ph.D. on 07/02/2024 at 18:36
== END 2024-07-02 22:20 | disposition left against medical advice (07) ==
PROVIDERS: Emergency Provider Emergency Medicine; PCP Family Medicine
DX: M25.512 Pain in left shoulder (principal); W19.XXXA Unspecified fall, initial encounter
CPT/HCPCS: 73000; 73030; 99281

== ENCOUNTER 2024-07-15 17:08 | Emergency (ER) | payer MEDICARE, OTHER, SELFPAY ==
[2024-02-02 03:27] VITALS: BMI 29.4
[2024-07-15 17:13] VITALS: BP 165/77; PULSE 71; RESP 22; TEMP 36.6; O2SAT 99; BMI 30.8
--- NOTE | 2024-07-15 17:21 | ED.BACK ---
HPI - Back Pain/Injury <Cathy Jarquin PA-C - Last Filed: 07/15/24 18:29> General Chief Complaint: Back Pain/Injury Stated Complaint: back pain Time Seen by Provider: 07/15/24 17:20 Source: patient History of Present Illness HPI Narrative: 78-year-old male known to me presents today with acute mid-back pain radiating down his right side. He states this has happened several times in the past and this feels similar. His pain began a couple of days ago when it went out, which he describes actually as spasms and twitches occurring above my surgery site. He denies any fall, any new numbness or tingling of his lower extremities, no foot drop. He took his last oxycodone 10 mg tablet this morning and then ran out. He normally takes 3 times a day for maintenance and pain management, but when the pain is severe he has to take an extra tablet apparently. He does take Dilaudid at bedtime only and his last dose was last night. Other medication tried was 600 mg of ibuprofen at approximately 10:00 a.m. today. He is currently wearing a lidocaine patch but does not find much relief from this. He is denying any issues with bowel or bladder, but reports, ?I could not make it in time due to the pain and spasm earlier today. Today's pain travels down the right midback lower back buttock to his thigh. He is denying any new or unusual symptoms, no abdominal pain flank/kidney pain. His last visit at the emergency department was June 28 for AMAURI, prior to that on June 19 he was treated for sciatica. At that time he was prescribed Robaxin muscle relaxant which he states works very little, he no longer uses Voltaren topical, generally wears a lidocaine patch daily. He denies any fever, or changes in his overall health. His dropped him off here today. All other systems are reviewed and are negative. Related Data Home Medications Medication Instructions Recorded Confirmed Disabled Parking Permit 1 % SEEINSTR 11/08/20 06/22/24 amlodipine 5 mg tablet 5 mg PO DAILY 11/08/22 06/22/24 hydrochlorothiazide 25 mg tablet 12.5 mg PO QAM 11/15/22 06/22/24 Previous Rx's Medication Instructions Recorded albuterol sulfate 2.5 mg/3 mL 2.5 mg (3 mL) continuous 10/24/22 (0.083 %) solution for nebulization nebulization Q6HP PRN shortness of breath or wheezing #360 mL albuterol sulfate 90 mcg/actuation 1 inh inhalation Q4-6H PRN 12/27/22 aerosol inhaler shortness of breath #18 grams omeprazole 40 mg capsule,delayed 40 mg PO DAILY #90 caps 01/01/23 release lidocaine 5 % topical patch 2 patch topical DAILY #30 ea 01/08/23 potassium chloride 20 mEq 20 meq PO BID #10 tabs 02/26/23 tablet,extended release ipratropium 0.5 mg-albuterol 3 mg 3 ml inhalation Q6H PRN shortness 03/19/23 (2.5 mg base)/3 mL nebulization of breath or wheezing #90 mL soln valacyclovir 1 gram tablet 1,000 mg PO TID #30 tabs 09/02/23 nitroglycerin 0.4 mg sublingual 0.4 mg sublingual Q5M PRN chest 10/03/23 tablet pain #20 tabs ferrous gluconate 324 mg (37.5 mg 324 mg PO DAILY #90 tabs 10/22/23 iron) tablet sulfasalazine 500 mg tablet 1,000 mg (2 x 500 mg) PO BID #180 11/28/23 tabs ascorbic acid (vitamin C) 500 mg 500 mg PO DAILY #90 tabs 12/13/23 tablet cholecalciferol (vitamin D3) 1,250 1,250 mcg PO QWEEK #12 caps 12/13/23 mcg (50,000 unit) capsule nortriptyline 10 mg capsule 10 mg PO BEDTIME #30 caps 12/17/23 ondansetron 8 mg disintegrating 8 mg PO Q8H PRN nausea and 12/17/23 tablet vomiting #30 tabs zolmitriptan 5 mg tablet (Zomig) See Rx Instructions PO .COMPLEX 12/17/23 #10 tabs meclizine 25 mg tablet 25 mg PO TID PRN dizziness #10 tabs 01/23/24 mecobalamin (vitamin B12) 1,000 1,000 mcg PO DAILY #90 tabs 02/11/24 mcg chewable tablet (B12 Active) ipratropium bromide 21 mcg (0.03 2 spray intranasal BID PRN 03/05/24 %) nasal spray Rhinorrhea #30 mL methocarbamol 750 mg tablet 750 mg PO QID PRN pain, severe #56 04/02/24 tabs fluoxetine 10 mg capsule See Rx Instructions .Route 04/20/24 .COMPLEX #90 caps fluoxetine 20 mg capsule 20 mg PO DAILY #90 caps 04/20/24 metoprolol succinate 100 mg 100 mg PO DAILY #90 tabs 04/20/24 tablet,extended release 24 hr lidocaine 5 % topical patch 1 patch topical DAILY #15 ea 05/21/24 methocarbamol 500 mg tablet 500 mg PO TID Back pain/spasms #20 06/19/24 tabs hydromorphone 2 mg tablet 2 mg PO BEDTIME PRN pain #30 tabs 06/22/24 oxycodone 10 mg tablet 10 mg PO Q8H PRN pain #90 tabs 06/22/24 prednisone 5 mg tablet 5 mg PO DAILY #30 tabs 06/22/24 methocarbamol 750 mg tablet 750 mg PO QID #30 tabs 07/15/24 Allergies Allergy/AdvReac Type Severity Reaction Status Date / Time cyclobenzaprine Allergy Severe Dizziness, Verified 06/28/24 15:18 [From Flexeril] I bounce off [place] ibuprofen AdvReac Intermediate Redness of Verified 06/28/24 15:18 Skin acetaminophen [ACETAMINOPHEN] AdvReac Unknown Can't take Verified 06/28/24 15:18 r/t Hep C; upset stomach Review of Systems <Cathy Jarquin PA-C - Last Filed: 07/15/24 18:29> Review of Systems Narrative: All other systems reviewed and are negative. Patient History <Cathy Jarquin PA-C - Last Filed: 07/15/24 18:29> Medical History Impaired cognition Left knee pain Chronic diarrhea Eustachian tube dysfunction Seasonal allergic rhinitis Dyspepsia Anemia Tinea Abdominal wall pain in both lower quadrants Constipation Aftercare following left shoulder joint replacement surgery Preoperative clearance Left lateral epicondylitis Adhesive capsulitis Right wrist sprain Oral lesion Colles' fracture Right wrist pain Left shoulder strain Anxiety Fibromyalgia Sinus drainage Chronic ankle pain, bilateral Rheumatoid arthritis Acute exacerbation of chronic bronchitis Foraminal stenosis of lumbar region Peripheral neuropathy Pneumonia (~2018) Impotence (Unknown) Restless leg syndrome (Unknown) Arthritis (Unknown) Chronic pain syndrome (Unknown) Kidney stones (Unknown) Prostate cancer (Unknown) Skin cancer (Unknown) Hepatitis C (Unknown) Hypertension (Unknown) Migraines (Unknown) PTSD (post-traumatic stress disorder) (Unknown) Depression (Unknown) Surgical History S/P lumbar fusion History of lumbar fusion (05/10/22) History of ankle surgery 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 Social History marital status: household members: spouse lives independently: Yes occupational status: previously employed Smoking Status: Former smoker Tobacco: How many years used: 20 quit status: has quit before alcohol intake: former substance use type: former substance user and marijuana Smoking Status: Former smoker tobacco type: cigarettes alcohol intake frequency: holidays/special occasions only Substance Use Type: does not use Exam <Cathy Jarquin PA-C - Last Filed: 07/15/24 18:29> Initial Vital Signs Initial Vital Signs: Vital Signs Temperature 97.9 F 07/15/24 17:13 Pulse Rate 71 07/15/24 17:13 Respiratory Rate 22 07/15/24 17:13 Blood Pressure 165/77 H 07/15/24 17:13 Pulse Oximetry 99 07/15/24 17:13 Oxygen Delivery Method Room Air 07/15/24 17:13 Const Other: He was brought in by wheelchair, he has in no obvious distress but occasionally has the spasms that cause him to seize up and grit his teeth. He is alert and oriented x4. He points to his mid right back. Neck Other: No focal bony midline tenderness, full range of motion of the neck. Resp Auscultation: clear to auscultation bilaterally, no rales, no rhonchi and no wheezes Cardio Rate: regular rate Rhythm: regular rhythm GI Inspection: normal to inspection Palpation: soft and no hepatosplenomegaly Auscultation: normal bowel sounds Back/Spine/Pelvis Back: normal to inspection, back tenderness, No CVA tenderness, No erythema, No mass, No sacral edema and No warmth Thoracic/Lumbar Spine: thoracic and lumbar spine normal to inspection, surgical scar(s) present, pain with thoraco-lumbar ROM, paraspinal tenderness, thoraco-lumbar ROM limited, thoraco-lumbar spasm, No thoracic spinal tenderness and No lumbar spinal tenderness Sacroiliac Joints: nontender Skin Other: Normal color, turgor and temperature. Neuro Other: No focal neurologic deficits, no foot drop. Sensory is intact bilaterally lower extremities. Extrem Other: No focal deficits, sensory is intact to baseline. Strength is intact against resistance <Carie Santana MD - Last Filed: 07/15/24 20:35> Initial Vital Signs Initial Vital Signs: Vital Signs Temperature 97.9 F 07/15/24 17:13 Pulse Rate 71 07/15/24 17:13 Respiratory Rate 22 07/15/24 17:13 Blood Pressure 165/77 H 07/15/24 17:13 Pulse Oximetry 99 07/15/24 17:13 Oxygen Delivery Method Room Air 07/15/24 17:13 Course <Cathy Jarquin PA-C - Last Filed: 07/15/24 18:29> Course Course Narrative: No fall, no trauma, he has chronic back issues, urinalysis was performed which was normal. He was able to stand and use a urinal in the exam room without difficulty starting or stopping his stream. He was treated with Dilaudid 1 mg intramuscularly as well as oral disintegrating Zofran. Marked improvement, he is more relaxed, no more sudden shooting pains. He endorses ?feeling better now.? Orders Ordered: ED Orders 07/15/24 18:00 Urinalysis and Microscopic Stat Discontinued Medications Hydromorphone HCl (Hydromorphone 1 Mg Inj) 1 mg IM NOW ONE Stop: 07/15/24 17:43 Last Admin: 07/15/24 17:56 Dose: 1 mg Documented By: FROYLAN Ondansetron HCl (Ondansetron 4 Mg Odt) 4 mg SL NOW ONE Stop: 07/15/24 17:43 Last Admin: 07/15/24 17:57 Dose: 4 mg Documented By: RL Vital Signs Vital signs: Vital Signs - 8 hr 07/15/24 17:13 07/15/24 18:33 Temperature 97.9 F Pulse Rate 71 71 Respiratory Rate 22 16 Blood Pressure 165/77 H 143/88 H Pulse Oximetry 99 96 Oxygen Delivery Method Room Air Room Air <Carie Santana MD - Last Filed: 07/15/24 20:35> Orders Ordered: ED Orders 07/15/24 18:00 Urinalysis and Microscopic Stat Discontinued Medications Hydromorphone HCl (Hydromorphone 1 Mg Inj) 1 mg IM NOW ONE Stop: 07/15/24 17:43 Last Admin: 07/15/24 17:56 Dose: 1 mg Documented By: FROYLAN Ondansetron HCl (Ondansetron 4 Mg Odt) 4 mg SL NOW ONE Stop: 07/15/24 17:43 Last Admin: 07/15/24 17:57 Dose: 4 mg Documented By: FROYLAN Vital Signs Vital signs: Vital Signs - 8 hr 07/15/24 17:13 07/15/24 18:33 Temperature 97.9 F Pulse Rate 71 71 Respiratory Rate 22 16 Blood Pressure 165/77 H 143/88 H Pulse Oximetry 99 96 Oxygen Delivery Method Room Air Room Air MDM - Back Pain/Injury <Cathy Jarquin PA-C - Last Filed: 07/15/24 18:29> Lab Data Lab results narrative: Urinalysis was performed, it is normal. Labs: Lab Results 07/15/24 Range/Units 18:00 Urine Color Yellow Urine Appearance Clear Urine pH 6.0 (4.5-8.0) Ur Specific [place] 1.010 (1.000-1.035) Urine Protein Negative (Negative) Urine Glucose (UA) Negative (Negative) g/dL Urine Ketones Negative (NEGATIVE) Urine Occult Blood Negative (Negative) Urine Nitrate Negative (Negative) Urine Bilirubin Negative (NEGATIVE) Urine Urobilinogen 0.2 (0.2) E.U./dL Ur Leukocyte Esterase Negative (NEGATIVE) Urine RBC None seen (0-5/HPF) Urine WBC None seen (0-5/HPF) Ur Squamous Epith Cells 0-1 /hpf (0-5/HPF) Urine Bacteria Occasional (0-1) (None) Ur Culture Indicated? Cult not indicated Vol Urine Centrifuged 10ml (spun) MDM Narrative Medical decision making narrative: 78-year-old male with chronic back issues, presents with spasms, he has had no fall or new injury. He responded rather quickly to intramuscularly Dilaudid. His urinalysis was normal. There were no worrisome clinical findings on examination to suggest cauda equina, kidney stone, abdominal process, his spasm was palpable and pain was reproducible with palpation and back range of motion. He had significant improvement following intramuscularly Dilaudid. Reviewed red flag warning signs in detail. His will drive him home. I have asked him to contact his pain management provider as he is early for his monthly refill. I have prescribed him Robaxin as he did have spasms and he did get some relief last time in June with this medication, he has lidocaine patches, and he can continue his anti-inflammatory 600-800 mg of ibuprofen every 8 hours with food. Red flag warning signs reviewed in detail. He will seek medical attention if he has any new or worrisome symptoms. <Carie Santana MD - Last Filed: 07/15/24 20:35> Lab Data Labs: Lab Results 07/15/24 Range/Units 18:00 Urine Color Yellow Urine Appearance Clear Urine pH 6.0 (4.5-8.0) Ur Specific [place] 1.010 (1.000-1.035) Urine Protein Negative (Negative) Urine Glucose (UA) Negative (Negative) g/dL Urine Ketones Negative (NEGATIVE) Urine Occult Blood Negative (Negative) Urine Nitrate Negative (Negative) Urine Bilirubin Negative (NEGATIVE) Urine Urobilinogen 0.2 (0.2) E.U./dL Ur Leukocyte Esterase Negative (NEGATIVE) Urine RBC None seen (0-5/HPF) Urine WBC None seen (0-5/HPF) Ur Squamous Epith Cells 0-1 /hpf (0-5/HPF) Urine Bacteria Occasional (0-1) (None) Ur Culture Indicated? Cult not indicated Vol Urine Centrifuged 10ml (spun) Discharge Plan Departure Patient Disposition: Home Clinical Impression: Spasm of back muscles Instructions: DI for Back Spasm Activity Restrictions/Additional Instructions: Kip, I am sorry you are having persistent back spasms I hope you find some relief with the treatment we gave you today. You need to contact your pain management doctor regarding your prescription renewal, your early at this point, please do take additional ibuprofen with food 600 mg to 800 mg 3 times daily that is every 8 hours, you really should try some ice directly on your area of pain, this will numb the area it is temporary but it will give you some basic relief. Continue with the lidocaine patches, consider restarting your Robaxin as it is a muscle relaxant. I have placed a new prescription for this. If you have any new symptoms or worsening recurrent pain please do not hesitate to return to the emergency department. Prescriptions: New methocarbamol 750 mg tablet 750 mg PO QID Qty: 30 0RF No Action ipratropium bromide 21 mcg (0.03 %) spray,non-aerosol 2 spray intranasal BID PRN (Reason: Rhinorrhea) Qty: 30 0RF Rx Instructions: administer into each nostril albuterol sulfate 2.5 mg /3 mL (0.083 %) solution for nebulization 2.5 mg Continuous Nebulization Q6HP PRN (Reason: shortness of breath or wheezing) Qty: 360 2RF albuterol sulfate 90 mcg/actuation HFA aerosol inhaler 1 inh INHALATION Q4-6H PRN (Reason: shortness of breath) Qty: 18 4RF omeprazole 40 mg capsule,delayed release(DR/EC) 40 mg PO DAILY Qty: 90 3RF Rx Instructions: take 1 capsule by mouth once daily lidocaine 5 % adhesive patch,medicated 2 patch topical DAILY Qty: 30 1RF Rx Instructions: leave on most painful area for up to 12 hrs nitroglycerin 0.4 mg tablet, sublingual 0.4 mg sublingual Q5M PRN (Reason: chest pain) Qty: 20 1RF Rx Instructions: do not exceed 3 doses per episode sulfasalazine 500 mg tablet 1,000 mg PO BID Qty: 180 1RF cholecalciferol (vitamin D3) 1,250 mcg (50,000 unit) capsule 1,250 mcg PO QWEEK Qty: 12 0RF ascorbic acid (vitamin C) 500 mg tablet 500 mg PO DAILY Qty: 90 0RF Rx Instructions: Take with iron mecobalamin (vitamin B12) [B12 Active] 1,000 mcg tablet,chewable 1,000 mcg PO DAILY Qty: 90 3RF methocarbamol 750 mg tablet 750 mg PO QID PRN (Reason: pain, severe) Qty: 56 0RF metoprolol succinate 100 mg tablet extended release 24 hr 100 mg PO DAILY Qty: 90 1RF fluoxetine 20 mg capsule 20 mg PO DAILY Qty: 90 3RF Rx Instructions: Take with 10 mg to complete 30 mg dose fluoxetine 10 mg capsule See Rx Instructions .ROUTE .COMPLEX Qty: 90 3RF Dose Instruction: take 1 capsule by mouth once daily WITH 20MG CAP DAILY TOTAL 30 MG DAILY Rx Instructions: take 1 capsule by mouth once daily WITH 20MG CAP DAILY TOTAL 30 MG DAILY prednisone 5 mg tablet 5 mg PO DAILY Qty: 30 5RF Rx Instructions: start taking every day hydromorphone 2 mg tablet 2 mg PO BEDTIME PRN (Reason: pain) Qty: 30 0RF Rx Instructions: May refill on Dec 02, 2023 oxycodone 10 mg tablet 10 mg PO Q8H PRN (Reason: pain) Qty: 90 0RF ferrous gluconate 324 mg (37.5 mg iron) tablet 324 mg PO DAILY Qty: 90 2RF Rx Instructions: start taking daily, with food or juice nortriptyline 10 mg capsule 10 mg PO BEDTIME Qty: 30 1RF ondansetron 8 mg tablet,disintegrating 8 mg PO Q8H PRN (Reason: nausea and vomiting) Qty: 30 1RF zolmitriptan [Zomig] 5 mg tablet See Rx Instructions PO .COMPLEX Qty: 10 1RF Rx Instructions: take 1 tab at onset of headache; if no relief, may repeat 1 tab after at least 2 hrs; max = 2 tabs/24 hrs PO potassium chloride 20 mEq tablet extended release 20 meq PO BID Qty: 10 0RF valacyclovir 1 gram tablet 1,000 mg PO TID Qty: 30 0RF meclizine 25 mg tablet 25 mg PO TID PRN (Reason: dizziness) Qty: 10 0RF lidocaine 5 % adhesive patch,medicated 1 patch topical DAILY Qty: 15 0RF Rx Instructions: leave on most painful area for up to 12 hrs Disabled Parking Permit 1 1 % SEEINSTR Rx Instructions: Valid for 5 years amlodipine 5 mg tablet 5 mg PO DAILY Patient Comments: pt received dose in hospital 11/10/19 early AM admit to hydrochlorothiazide 25 mg tablet 12.5 mg PO QAM ipratropium-albuterol 0.5 mg-3 mg(2.5 mg base)/3 mL solution for nebulization 3 ml inhalation Q6H PRN (Reason: shortness of breath or wheezing) Qty: 90 0RF methocarbamol 500 mg tablet 500 mg PO TID Qty: 20 0RF Rx Instructions: Take 1 tablet 3 times a day by mouth for 3 days, and then as needed. Referrals: Edilberto Snell DO [Primary Care Provider] - Stand Alone Forms: Patient Portal/API ED Sign-out <Carie Santana MD - Last Filed: 07/15/24 20:35> Cosign ED Attending Cosnickature Attestation: I did not see this patient. I was available all times for consultation.
[2024-07-15] MEDS: HYDROMORPHONE 1 MG INJ IM (17:56)
[2024-07-15] MEDS: ONDANSETRON 4 MG ODT SL (17:57)
[2024-07-15 18:12] LABS: Appearance Urine UA CLEAR; Bilirubin Urine UA NEGATIVE (NEGATIVE); Color Urine UA YELLOW; Glucose Urine UA NEGATIVE (Negative); Ketones Urine UA NEGATIVE (NEGATIVE); Leukocyte Esterase Urine UA NEGATIVE (NEGATIVE); Nitrite Urine UA NEGATIVE (Negative); Occult Blood Urine UA NEGATIVE (Negative); Protein Urine UA NEGATIVE (Negative); Urobilinogen Urine UA 0.2 E.U./dL (0.2)
[2024-07-15 18:24] LABS: Bacteria Urine Occasional (0-1); Culture Indicated Urine Cult Not Indicated; RBC Urine None Seen (0-5/HPF); Squamous Epithelial Cell Urine 0-1 /HPF (0-5/HPF); Urine Volume 10mL (spun); WBC Urine None Seen (0-5/HPF)
[2024-07-15 18:33] VITALS: BP 143/88; PULSE 71; RESP 16; O2SAT 96
== END 2024-07-15 18:33 | disposition home or self-care (01) ==
PROVIDERS: Emergency Provider Physician Assistant Medical; PCP Family Medicine
DX: M62.830 Muscle spasm of back (principal); Z86.16 Personal history of COVID-19
CPT/HCPCS: 81001; 96372; 99283; J1170

== ENCOUNTER → 2024-07-23 12:16 | Outpatient (CLI) | payer MEDICARE, OTHER, SELFPAY ==
[2024-02-02 03:27] VITALS: BMI 29.4
--- NOTE | 2024-07-23 12:18 | DI.RAD.S_ITS ---
PROCEDURE: XR LUMBAR SPINE 6V W BENDING INDICATIONS: eval chronic lower back pain TECHNIQUE: 7 views of the lumbar spine acquired, including flexion and extension views. COMPARISON: [facility], CR, XR LUMBAR SPINE 2-3V, 04/04/2023, 16:23. [facility], CR, XR LUMBAR SPINE 2-3V, 11/30/2022, 15:38. FINDINGS: Diffuse osseous demineralization. Five non rib-bearing lumbar vertebrae are present. There has been prior T12-L4 posterior fusion with intervertebral disc spacer placement and right sacroiliac fusion. No hardware complication. The vertebral body heights are preserved. No dynamic instability on flexion-extension views. Multilevel facet arthropathy with heterotopic ossification at the posterior segments of the lumbar vertebral bodies. Aortic vascular calcifications. Right upper quadrant surgical clips. IMPRESSION: 1. No acute radiographic abnormality of the lumbar spine. 2. Status post thoracolumbar fusion without hardware complication. Dictated by: Hernando Mcpherson M.D. on 07/24/2024 at 9:09 Approved by: Hernando Mcpherson M.D. on 07/24/2024 at 9:16
--- NOTE | 2024-07-23 12:18 | DI.RAD.S_ITS ---
PROCEDURE: XR THORACIC SPINE 3V INDICATIONS: acute on chronic pain x 5 days w/ right side sciatica TECHNIQUE: 3 views of the thoracic spine were acquired. COMPARISON: None. FINDINGS: The thoracic vertebral body heights are preserved. Partially identified lumbar fusion hardware, reverse total shoulder arthroplasty hardware and right upper quadrant surgical clips. Multilevel intervertebral disc height loss. IMPRESSION: No acute thoracic vertebral body compression fractures. Dictated by: Hernando Mcpherson M.D. on 07/23/2024 at 17:18 Approved by: Hernando Mcpherson M.D. on 07/23/2024 at 17:19
== END ==
PROVIDERS: PCP Family Medicine; Referring Provider Family Medicine; Visit Provider Family Medicine
DX: M54.16 Radiculopathy, lumbar region (principal); M54.50 Low back pain, unspecified; M54.9 Dorsalgia, unspecified; G89.29 Other chronic pain; Z98.1 Arthrodesis status
CPT/HCPCS: 72072; 72114

== ENCOUNTER 2024-08-05 15:50 | Emergency (ER) | payer MEDICARE, OTHER, SELFPAY ==
[2024-02-02 03:27] VITALS: BMI 29.4
[2024-08-05 15:53] VITALS: BP 152/82; PULSE 73; RESP 18; TEMP 36.6; O2SAT 95
--- NOTE | 2024-08-05 16:22 | ED.RECABL ---
HPI - Recheck/Abnormal Lab/Rx <Emma Romano PA-C - Last Filed: 08/06/24 10:51> General Chief Complaint: Recheck/Abnormal Lab/Rx Stated Complaint: may have OD'd Time Seen by Provider: 08/05/24 16:22 Source: patient Mode of arrival: Ambulatory History of Present Illness HPI narrative: Patient is a very pleasant 78-year-old male that presents to the emergency room department today concerning for possible overdose on his pain medications and muscle relaxers. Patient has a history of chronic pain, my understanding is that he is a frequent visitor to this institution, at points in times he is become aggressive, verbally due to dissatisfaction with his treatment and care. He presents to the emergency room department today because he concerned that possibly his overdosed on his pain medications. He has an extremely poor historian, I have reviewed his medical history, I have reviewed his med list, he is brought his medications with him and I have reviewed those as well. I have also reviewed his p.m. P. Currently at this time on July 28 he picked up 30 tablets of Dilaudid 2 mg piece, currently at this time he has 7 tablets left over, it looks like he is taking 4 tablets a day which is 8 mg of Dilaudid daily. He did not bring his bottle oxycodone which on July 22 he picked up 90 tablets of 10 mg IR. The patient is having a difficult time telling me how much oxycodone he is currently taking, he then also has multiple bottles of 750 mg Robaxin. Currently at this time he does not have any refills of his Dilaudid, he is cared for by a physician here at [facility] Dr. Snell. As you can see by his medical history below it is extensive, he has a chronic pain syndrome, currently it sounds like he has not been referred to a pain specialist, his primary care doctor's currently addressing his pain related issues. Currently does not have any Narcan at home, he complains of also some minor nausea why he is here. During his stay here in the fast track area he is complaining of right-sided muscle spasms in the right lower extremity, he states that he is fallen multiple times at home, I have asked him if he would like to speak to social work he states that he does not he does not feel that they are going to be able to help him, he states that he can take care of himself at home and does not need anybody to come into the home he has a who can help him. I have discussed with him that if he is concerned about an OD that the only medication that would help him with Narcan, he states he does not want Narcan because he understands that Narcan we will completely bottom out and he does not want to feel bad and he knows that withdrawal is even worse than how he is currently feeling. So we have decided that we will do no Narcan here in the emergency room department for his concerned OD. Currently I have a low suspicion for an OD at this point in time due to the fact the patient is interactive, he is alert, in his at baseline per the nursing staff, and he is able to interact, he is able to answer questions, at this point in time he is able to delineate that he is having discomfort, and he is having pain, and that he is nauseated, and he is requesting drink and food Related Data Home Medications Medication Instructions Recorded Confirmed Disabled Parking Permit 1 % SEEINSTR 11/08/20 07/23/24 amlodipine 5 mg tablet 5 mg PO DAILY 11/08/22 07/23/24 hydrochlorothiazide 25 mg tablet 12.5 mg PO QAM 11/15/22 07/23/24 Previous Rx's Medication Instructions Recorded albuterol sulfate 2.5 mg/3 mL 2.5 mg (3 mL) continuous 10/24/22 (0.083 %) solution for nebulization nebulization Q6HP PRN shortness of breath or wheezing #360 mL albuterol sulfate 90 mcg/actuation 1 inh inhalation Q4-6H PRN 12/27/22 aerosol inhaler shortness of breath #18 grams omeprazole 40 mg capsule,delayed 40 mg PO DAILY #90 caps 01/01/23 release lidocaine 5 % topical patch 2 patch topical DAILY #30 ea 01/08/23 potassium chloride 20 mEq 20 meq PO BID #10 tabs 02/26/23 tablet,extended release ipratropium 0.5 mg-albuterol 3 mg 3 ml inhalation Q6H PRN shortness 03/19/23 (2.5 mg base)/3 mL nebulization of breath or wheezing #90 mL soln valacyclovir 1 gram tablet 1,000 mg PO TID #30 tabs 09/02/23 nitroglycerin 0.4 mg sublingual 0.4 mg sublingual Q5M PRN chest 10/03/23 tablet pain #20 tabs ferrous gluconate 324 mg (37.5 mg 324 mg PO DAILY #90 tabs 10/22/23 iron) tablet sulfasalazine 500 mg tablet 1,000 mg (2 x 500 mg) PO BID #180 11/28/23 tabs ascorbic acid (vitamin C) 500 mg 500 mg PO DAILY #90 tabs 12/13/23 tablet cholecalciferol (vitamin D3) 1,250 1,250 mcg PO QWEEK #12 caps 12/13/23 mcg (50,000 unit) capsule nortriptyline 10 mg capsule 10 mg PO BEDTIME #30 caps 12/17/23 ondansetron 8 mg disintegrating 8 mg PO Q8H PRN nausea and 12/17/23 tablet vomiting #30 tabs zolmitriptan 5 mg tablet (Zomig) See Rx Instructions PO .COMPLEX 12/17/23 #10 tabs meclizine 25 mg tablet 25 mg PO TID PRN dizziness #10 tabs 01/23/24 mecobalamin (vitamin B12) 1,000 1,000 mcg PO DAILY #90 tabs 02/11/24 mcg chewable tablet (B12 Active) ipratropium bromide 21 mcg (0.03 2 spray intranasal BID PRN 03/05/24 %) nasal spray Rhinorrhea #30 mL fluoxetine 10 mg capsule See Rx Instructions .Route 04/20/24 .COMPLEX #90 caps fluoxetine 20 mg capsule 20 mg PO DAILY #90 caps 04/20/24 metoprolol succinate 100 mg 100 mg PO DAILY #90 tabs 04/20/24 tablet,extended release 24 hr lidocaine 5 % topical patch 1 patch topical DAILY #15 ea 05/21/24 prednisone 5 mg tablet 5 mg PO DAILY #30 tabs 06/22/24 methocarbamol 750 mg tablet 750 mg PO QID #30 tabs 07/15/24 hydromorphone 2 mg tablet 2 mg PO BEDTIME PRN pain #30 tabs 07/20/24 oxycodone 10 mg tablet 10 mg PO Q8H PRN pain #90 tabs 07/20/24 prednisone 20 mg tablet 20 mg PO DAILY #7 tabs 10/10/24 naloxone 4 mg/actuation nasal 1 spray intranasal Q2M #2 ea 08/05/24 spray (Narcan) ondansetron HCl 4 mg tablet 4 mg PO Q6H PRN nausea and 08/05/24 vomiting #10 tabs Allergies Allergy/AdvReac Type Severity Reaction Status Date / Time cyclobenzaprine Allergy Severe Dizziness, Verified 07/23/24 11:39 [From Flexeril] I bounce off ag ibuprofen AdvReac Intermediate Redness of Verified 07/23/24 11:39 Skin acetaminophen [ACETAMINOPHEN] AdvReac Unknown Can't take Verified 07/23/24 11:39 r/t Hep C; upset stomach Review of Systems <Emma Romano PA-C - Last Filed: 08/06/24 10:51> Review of Systems Narrative: Negative except as above Gastrointestinal Comments: Nausea Endocrine Comments: Concern for possible narcotic overdose Patient History <Emma Romano PA-C - Last Filed: 08/06/24 10:51> Medical History Impaired cognition Left knee pain Chronic diarrhea Eustachian tube dysfunction Seasonal allergic rhinitis Dyspepsia Anemia Tinea Abdominal wall pain in both lower quadrants Constipation Aftercare following left shoulder joint replacement surgery Preoperative clearance Left lateral epicondylitis Adhesive capsulitis Right wrist sprain Oral lesion Colles' fracture Right wrist pain Left shoulder strain Anxiety Fibromyalgia Sinus drainage Chronic ankle pain, bilateral Rheumatoid arthritis Acute exacerbation of chronic bronchitis Foraminal stenosis of lumbar region Peripheral neuropathy Pneumonia (~2018) Impotence (Unknown) Restless leg syndrome (Unknown) Arthritis (Unknown) Chronic pain syndrome (Unknown) Kidney stones (Unknown) Prostate cancer (Unknown) Skin cancer (Unknown) Hepatitis C (Unknown) Hypertension (Unknown) Migraines (Unknown) PTSD (post-traumatic stress disorder) (Unknown) Depression (Unknown) Surgical History S/P lumbar fusion History of lumbar fusion (05/10/22) History of ankle surgery 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 Social History marital status: household members: spouse lives independently: Yes occupational status: previously employed Smoking Status: Former smoker Tobacco: How many years used: 20 quit status: has quit before alcohol intake: former substance use type: former substance user and marijuana Smoking Status: Former smoker tobacco type: cigarettes alcohol intake frequency: holidays/special occasions only Substance Use Type: does not use Exam <Emma Romano PA-C - Last Filed: 08/06/24 10:51> Initial Vital Signs Initial Vital Signs: Vital Signs Temperature 98 F 08/05/24 15:53 Pulse Rate 73 08/05/24 15:53 Respiratory Rate 18 08/05/24 15:53 Blood Pressure 152/82 H 08/05/24 15:53 Pulse Oximetry 95 08/05/24 15:53 Oxygen Delivery Method Room Air 08/05/24 15:53 Const General: cooperative, well groomed, in distress (Ongoing chronic pain related issues), frail appearing and intoxicated appearing (It is obvious the patient is under the influence of narcotics) Eyes General: Yes appearance normal, both eyes and all related structures Pupils: PERRL and pupil size (3-4 reactive but sluggish) Cardio Rate: regular rate Rhythm: regular rhythm Heart Sounds: S1 normal and S2 normal Skin Other: Warm pink and dry Neuro Other: Cranial nerves are grossly intact cognition is impaired due to his chronic narcotic abuse and usage, speech is not impaired, his gait is not impaired, he keeps moving his right leg and jerking his right leg seems to be causing him spasm and discomfort and pain, patient is a poor historian I think he is unable to really tell me how much he is taken or what he is taken which is difficult though he did bring his bottles which allows me to kind of review what he is possibly taken and I have reviewed his ERP TECHNICAL LEAD Extrem Other: Patient ambulates in under his own power, range of motion, strength, power, cap refill is preserved in the upper and lower extremities. While examining the patient and talking with the patient the patient keeps kind of yelling out has a right leg kind of kicked out as if it is spasming, and he keeps complaining of right leg discomfort and pain and spasm. It is really difficult to tell because of his has a hard time expressing himself. Psych Other: Patient is dressed well he is clean, his mental status per the nursing staff who sees this patient on a regular basis kind of baseline. His beaches intact though he is slightly confused, movement is normal he ambulates underneath his own power, his mood per the nurse's is baseline affect per the nurse's baseline attitude he is polite he does interact with me appropriately is not verbally aggressive or physically aggressive, his thought process and his thought content are definitely impaired due to his chronic narcotic usage, I feel like his judgment is probably mildly impaired as well. <Mirtha Jameson MD - Last Filed: 08/06/24 18:43> Initial Vital Signs Initial Vital Signs: Vital Signs Temperature 98 F 08/05/24 15:53 Pulse Rate 73 08/05/24 15:53 Respiratory Rate 18 08/05/24 15:53 Blood Pressure 152/82 H 08/05/24 15:53 Pulse Oximetry 95 08/05/24 15:53 Oxygen Delivery Method Room Air 08/05/24 15:53 Scores <Emma Romano PA-C - Last Filed: 08/06/24 10:51> GCS Citation: 15 Course <Emma Romano PA-C - Last Filed: 08/06/24 10:51> Orders Ordered: Discontinued Medications Ondansetron HCl (Ondansetron 4 Mg Odt) 4 mg SL NOW ONE Stop: 08/05/24 16:40 Last Admin: 08/05/24 16:46 Dose: 4 mg Documented By: KW Vital Signs Vital signs: Vital Signs - 8 hr 08/05/24 15:53 08/05/24 17:05 Temperature 98 F Pulse Rate 73 86 Respiratory Rate 18 16 Blood Pressure 152/82 H Pulse Oximetry 95 96 Oxygen Delivery Method Room Air Room Air Reviewed <Mirtha Jameson MD - Last Filed: 08/06/24 18:43> Orders Ordered: Discontinued Medications Ondansetron HCl (Ondansetron 4 Mg Odt) 4 mg SL NOW ONE Stop: 08/05/24 16:40 Last Admin: 08/05/24 16:46 Dose: 4 mg Documented By: QUAN Vital Signs Vital signs: Vital Signs - 8 hr 08/05/24 15:53 08/05/24 17:05 Temperature 98 F Pulse Rate 73 86 Respiratory Rate 18 16 Blood Pressure 152/82 H Pulse Oximetry 95 96 Oxygen Delivery Method Room Air Room Air MDM - Recheck/Abnormal Lab/Rx <Emma Romano PA-C - Last Filed: 08/06/24 10:51> SHELL Narrative Medical decision making narrative: Patient is a pleasant 78-year-old male well known to this institution this my 1st interaction with him. My understanding is this patient has chronic pain related issues, chronic narcotic usage, who presents usually for pain related issues. Today the patient presents because he is concerned that possibly he is taken too many of his opioids today, the patient has a prescription for Dilaudid, is also a prescription for oxycodone, on July 28 the patient picked up 30 tablets of Dilaudid 2 mg each, the bottle that he brings in today shows that he has 7 tablets left. On July 22 the patient picked up oxycodone 10 mg IR, quantity of 90, the patient did not bring his oxycodone bottle in so I have no idea how much oxycodone he is taken. I have explained to the patient it looks like currently is taking about 8 mg of Dilaudid a day. Per his ERP TECHNICAL LEAD it looks like he is taking 55 MME per day but this is really unconfirmed his primary care doctor is currently prescribing his medications for him. However it appears that the patient is quite uncomfortable, and it does not appears of the medications are actually working, because he continues to come to the emergency department complaining of pain. As now appearing to self medicate him most likely not associated with the prescription directions. He also does not have any Narcan at home, he is concerned about it OD today in his that is why he is here however he is appropriate and I have discussed with him that if we give him Narcan here in the emergency department is completely going to bought him out and he does not want to be bottomed out he does not want to feel the way that he feels when he has had Narcan in the past he understands exactly how he is going to feel if I give him Narcan here in the emergency department. I have told him that unfortunately it appears as if he is taking his medications I do not know if he is taking them as prescribed or he is taking them as he feels that he needs to take them so it is really hard to say what he is doing. Unfortunately did not bring his oxycodone with him so I do not know how much oxycodone he is taking, he also has multiple prescriptions with him for Robaxin which has a strong muscle relaxer in combination with the Dilaudid in the oxycodone this is increase chance of fall huge risk for fall him becoming over-sedated him possibly falling and breaking a long bone or hitting his head and having an intracranial bleed. Reviewing his medication list it looks like the oxycodone is supposed to be taken every 8 hours as needed as needed for discomfort and pain, looks like the Dilaudid is supposed to be taken only at bedtime as needed. So I do not think that the patient is currently taking his medications as prescribed, I think he is taking them as he feels necessary for his discomfort and pain. I have suggested that the patient make an appointment with his primary care doctor to discuss the fact that the current medications he is taking does not seem to be helping with the discomfort and pain that he is having and perhaps it might be time for re-evaluation of the current medications that he is being prescribed and possibly a change in either the treatment plan, possible referral to a pain management clinic, or a re-evaluation of the medications and possible changes in the treatment plan to see if he can get better control over his pain, perhaps something it has a little bit safer for the patient with his advanced age. I did prescribe him some Narcan, I did prescribe him some Zofran because he was very nauseous here in the emergency room department had kind of some dry heaves. I did give him sublingual Zofran here in the emergency department to kind of calm his stomach. I did explain to him that I would like him to please be careful with the amount of narcotics he is currently taking. I did give him supportive therapy education, ED precautions, I did give him reasons to call 911. I did explain to him and give him direction on how to actually use the intranasal Narcan in case of overdose, and how to instruct his to provide him with the intranasal Narcan in case of overdose. The patient understands information education given in the ED. And he is discharged in stable condition. Differential diagnosis chronic opioid usage, chronic pain, concerns for possible overdose, Discharge Plan Departure Patient Disposition: Home Clinical Impression: Narcotic dependency, continuous, Nausea Chronic pain Qualifiers: Chronic pain type: other chronic pain Qualified Code(s): G89.29 - Other chronic pain Activity Restrictions/Additional Instructions: Please make an appointment to follow up with the primary care doctor To prescriptions have been sent to your pharmacy Please use the Zofran for nausea Currently at this time it looks like taking about 8 mg of Dilaudid a day Unfortunately her not able to tell me how much oxycodone currently taking I would suggest that you discuss with your primary care doctor referral to pain Clinic it does not appears if the Dilaudid in the oxycodone are currently taking care of your medical issues in your pain Currently I sent a prescription for Narcan as well I spoke with Juan she is Dr. Snell's nurse she is going to call you tomorrow to make arrangements for you to have a follow up appointment to see Dr. Snell to discuss her ongoing issues Prescriptions: New ondansetron HCl 4 mg tablet 4 mg PO Q6H PRN (Reason: nausea and vomiting) Qty: 10 0RF naloxone [Narcan] 4 mg/actuation spray,non-aerosol 1 spray intranasal Q2M Qty: 2 0RF Rx Instructions: spray 1 dose into ONE nostril; alternate nostrils w each dose until help arrives No Action ipratropium bromide 21 mcg (0.03 %) spray,non-aerosol 2 spray intranasal BID PRN (Reason: Rhinorrhea) Qty: 30 0RF Rx Instructions: administer into each nostril albuterol sulfate 2.5 mg /3 mL (0.083 %) solution for nebulization 2.5 mg Continuous Nebulization Q6HP PRN (Reason: shortness of breath or wheezing) Qty: 360 2RF albuterol sulfate 90 mcg/actuation HFA aerosol inhaler 1 inh INHALATION Q4-6H PRN (Reason: shortness of breath) Qty: 18 4RF omeprazole 40 mg capsule,delayed release(DR/EC) 40 mg PO DAILY Qty: 90 3RF Rx Instructions: take 1 capsule by mouth once daily lidocaine 5 % adhesive patch,medicated 2 patch topical DAILY Qty: 30 1RF Rx Instructions: leave on most painful area for up to 12 hrs nitroglycerin 0.4 mg tablet, sublingual 0.4 mg sublingual Q5M PRN (Reason: chest pain) Qty: 20 1RF Rx Instructions: do not exceed 3 doses per episode sulfasalazine 500 mg tablet 1,000 mg PO BID Qty: 180 1RF cholecalciferol (vitamin D3) 1,250 mcg (50,000 unit) capsule 1,250 mcg PO QWEEK Qty: 12 0RF ascorbic acid (vitamin C) 500 mg tablet 500 mg PO DAILY Qty: 90 0RF Rx Instructions: Take with iron mecobalamin (vitamin B12) [B12 Active] 1,000 mcg tablet,chewable 1,000 mcg PO DAILY Qty: 90 3RF metoprolol succinate 100 mg tablet extended release 24 hr 100 mg PO DAILY Qty: 90 1RF fluoxetine 20 mg capsule 20 mg PO DAILY Qty: 90 3RF Rx Instructions: Take with 10 mg to complete 30 mg dose fluoxetine 10 mg capsule See Rx Instructions .ROUTE .COMPLEX Qty: 90 3RF Dose Instruction: take 1 capsule by mouth once daily WITH 20MG CAP DAILY TOTAL 30 MG DAILY Rx Instructions: take 1 capsule by mouth once daily WITH 20MG CAP DAILY TOTAL 30 MG DAILY hydromorphone 2 mg tablet 2 mg PO BEDTIME PRN (Reason: pain) Qty: 30 0RF Rx Instructions: May refill on Dec 02, 2023 oxycodone 10 mg tablet 10 mg PO Q8H PRN (Reason: pain) Qty: 90 0RF prednisone 5 mg tablet 5 mg PO DAILY Qty: 30 5RF Rx Instructions: start taking every day ferrous gluconate 324 mg (37.5 mg iron) tablet 324 mg PO DAILY Qty: 90 2RF Rx Instructions: start taking daily, with food or juice nortriptyline 10 mg capsule 10 mg PO BEDTIME Qty: 30 1RF ondansetron 8 mg tablet,disintegrating 8 mg PO Q8H PRN (Reason: nausea and vomiting) Qty: 30 1RF zolmitriptan [Zomig] 5 mg tablet See Rx Instructions PO .COMPLEX Qty: 10 1RF Rx Instructions: take 1 tab at onset of headache; if no relief, may repeat 1 tab after at least 2 hrs; max = 2 tabs/24 hrs PO prednisone 20 mg tablet 20 mg PO DAILY Qty: 7 0RF Rx Instructions: take for one week potassium chloride 20 mEq tablet extended release 20 meq PO BID Qty: 10 0RF valacyclovir 1 gram tablet 1,000 mg PO TID Qty: 30 0RF meclizine 25 mg tablet 25 mg PO TID PRN (Reason: dizziness) Qty: 10 0RF lidocaine 5 % adhesive patch,medicated 1 patch topical DAILY Qty: 15 0RF Rx Instructions: leave on most painful area for up to 12 hrs Disabled [address]ing Permit 1 1 % SEEINSTR Rx Instructions: Valid for 5 years amlodipine 5 mg tablet 5 mg PO DAILY Patient Comments: pt received dose in hospital 11/10/19 early AM admit to AC hydrochlorothiazide 25 mg tablet 12.5 mg PO QAM ipratropium-albuterol 0.5 mg-3 mg(2.5 mg base)/3 mL solution for nebulization 3 ml inhalation Q6H PRN (Reason: shortness of breath or wheezing) Qty: 90 0RF methocarbamol 750 mg tablet 750 mg PO QID Qty: 30 0RF Referrals: Edilberto Snell, [Primary Care Provider] - Stand Alone Forms: Patient Portal/API ED Sign-out <Mirtha Jameson MD - Last Filed: 08/06/24 18:43> Cosign ED Attending Cosignature Attestation: I was immediately available in the department for consultation throughout this patient's visit. Mirtha Jameson MD
[2024-08-05] MEDS: ONDANSETRON 4 MG ODT SL (16:46)
[2024-08-05 17:05] VITALS: PULSE 86; RESP 16; O2SAT 96
== END 2024-08-05 17:06 | disposition home or self-care (01) ==
PROVIDERS: Emergency Provider Physician Assistant; PCP Family Medicine
DX: G89.29 Other chronic pain (principal); F11.20 Opioid dependence, uncomplicated; R11.0 Nausea; Z79.899 Other long term (current) drug therapy
CPT/HCPCS: 99283

== ENCOUNTER 2024-08-10 16:03 | Emergency (ER) | payer MEDICARE, OTHER, SELFPAY ==
[2024-02-02 03:27] VITALS: BMI 29.4
[2024-08-10 16:09] VITALS: BP 124/57; PULSE 78; RESP 20; TEMP 37; O2SAT 96; BMI 30.7
--- NOTE | 2024-08-10 16:48 | DI.RAD.S_ITS ---
PROCEDURE: XR LUMBAR SPINE 2-3V INDICATIONS: fall TECHNIQUE: Three views of the lumbar spine were acquired. COMPARISON: [facility], CR, XR LUMBAR SPINE 6V W BENDING, 07/23/2024, 12:25. FINDINGS: Bones: Five [id number] vertebrae are present. There is intact posterior fusion hardware from T12 through L4. Intact right SI joint hardware. Disc spacers at multiple levels. No vertebral body compression fractures. No suspicious bony lesions. Soft tissues: Overlying bowel gas pattern is normal. No suspicious soft tissue calcifications. Surgical clips in the pelvis and gallbladder fossa. Moderate to heavy aortic atherosclerotic calcification. IMPRESSION: No acute hardware or osseous fracture. Dictated by: Gabriella Mccormick M.D. on 08/10/2024 at 17:17 Approved by: Gabriella Mccormick M.D. on 08/10/2024 at 17:19
--- NOTE | 2024-08-10 17:49 | ED_ITS ---
HPI - Back Pain/Injury <Steve Gloria PA-C - Last Filed: 08/11/24 15:39> General Chief Complaint: Back Pain/Injury Stated Complaint: fall, lower back px x1 Time Seen by Provider: 08/10/24 16:41 Source: patient History of Present Illness HPI Narrative: 78-year-old male with chronic pain issues, chronic back pain presents to the ED with an acute on chronic exacerbation of the back pain due to a recent fall. Patient states that he was in the process of sitting down in a chair, when he missed, causing him to fall to the floor. Patient is complaining of lower back pain with some radiation to the left leg. Patient denies numbness, tingling, weakness, urinary hesitancy, fever, chills. When asked if patient took his usual opioid medications today, he states that he is out of his medications. Related Data Home Medications Medication Instructions Recorded Confirmed Disabled Parking Permit 1 % SEEINSTR 11/08/20 07/23/24 amlodipine 5 mg tablet 5 mg PO DAILY 11/08/22 07/23/24 hydrochlorothiazide 25 mg tablet 12.5 mg PO QAM 11/15/22 07/23/24 Previous Rx's Medication Instructions Recorded albuterol sulfate 2.5 mg/3 mL 2.5 mg (3 mL) continuous 10/24/22 (0.083 %) solution for nebulization nebulization Q6HP PRN shortness of breath or wheezing #360 mL albuterol sulfate 90 mcg/actuation 1 inh inhalation Q4-6H PRN 12/27/22 aerosol inhaler shortness of breath #18 grams omeprazole 40 mg capsule,delayed 40 mg PO DAILY #90 caps 01/01/23 release lidocaine 5 % topical patch 2 patch topical DAILY #30 ea 01/08/23 potassium chloride 20 mEq 20 meq PO BID #10 tabs 02/26/23 tablet,extended release ipratropium 0.5 mg-albuterol 3 mg 3 ml inhalation Q6H PRN shortness 03/19/23 (2.5 mg base)/3 mL nebulization of breath or wheezing #90 mL soln valacyclovir 1 gram tablet 1,000 mg PO TID #30 tabs 09/02/23 nitroglycerin 0.4 mg sublingual 0.4 mg sublingual Q5M PRN chest 10/03/23 tablet pain #20 tabs ferrous gluconate 324 mg (37.5 mg 324 mg PO DAILY #90 tabs 10/22/23 iron) tablet sulfasalazine 500 mg tablet 1,000 mg (2 x 500 mg) PO BID #180 11/28/23 tabs ascorbic acid (vitamin C) 500 mg 500 mg PO DAILY #90 tabs 12/13/23 tablet cholecalciferol (vitamin D3) 1,250 1,250 mcg PO QWEEK #12 caps 12/13/23 mcg (50,000 unit) capsule nortriptyline 10 mg capsule 10 mg PO BEDTIME #30 caps 12/17/23 ondansetron 8 mg disintegrating 8 mg PO Q8H PRN nausea and 12/17/23 tablet vomiting #30 tabs zolmitriptan 5 mg tablet (Zomig) See Rx Instructions PO .COMPLEX 12/17/23 #10 tabs meclizine 25 mg tablet 25 mg PO TID PRN dizziness #10 tabs 01/23/24 mecobalamin (vitamin B12) 1,000 1,000 mcg PO DAILY #90 tabs 02/11/24 mcg chewable tablet (B12 Active) ipratropium bromide 21 mcg (0.03 2 spray intranasal BID PRN 03/05/24 %) nasal spray Rhinorrhea #30 mL fluoxetine 10 mg capsule See Rx Instructions .Route 04/20/24 .COMPLEX #90 caps fluoxetine 20 mg capsule 20 mg PO DAILY #90 caps 04/20/24 metoprolol succinate 100 mg 100 mg PO DAILY #90 tabs 04/20/24 tablet,extended release 24 hr lidocaine 5 % topical patch 1 patch topical DAILY #15 ea 05/21/24 prednisone 5 mg tablet 5 mg PO DAILY #30 tabs 06/22/24 methocarbamol 750 mg tablet 750 mg PO QID #30 tabs 07/15/24 hydromorphone 2 mg tablet 2 mg PO BEDTIME PRN pain #30 tabs 07/20/24 oxycodone 10 mg tablet 10 mg PO Q8H PRN pain #90 tabs 07/20/24 prednisone 20 mg tablet 20 mg PO DAILY #7 tabs 07/23/24 naloxone 4 mg/actuation nasal 1 spray intranasal Q2M #2 ea 08/05/24 spray (Narcan) ondansetron HCl 4 mg tablet 4 mg PO Q6H PRN nausea and 08/05/24 vomiting #10 tabs cyclobenzaprine 10 mg tablet 10 mg PO TID PRN muscle spasm 3 08/10/24 days #10 tabs Allergies Allergy/AdvReac Type Severity Reaction Status Date / Time cyclobenzaprine Allergy Severe Dizziness, Verified 07/23/24 11:39 [From Flexeril] I bounce off ag ibuprofen AdvReac Intermediate Redness of Verified 07/23/24 11:39 Skin acetaminophen [ACETAMINOPHEN] AdvReac Unknown Can't take Verified 07/23/24 11:39 r/t Hep C; upset stomach Review of Systems <Steve Gloria PA-C - Last Filed: 08/11/24 15:39> Constitutional Constitutional: Denies chills, Denies fatigue, Denies fever(s), Denies frequent falls, Denies lethargy and Denies weakness Eyes Eyes: Denies change in vision, Denies eye discharge, Denies irritation and Denies loss of vision ENT Ears, Nose, Mouth, and Throat: Denies change in voice, Denies dizziness, Denies neck pain, Denies sore throat and Denies throat swelling Cardiovascular Cardiovascular: Denies chest pain, Denies irregular heart rhythm, Denies lightheadedness, Denies palpitations, Denies dyspnea, Denies dyspnea on exertion and Denies orthopnea Respiratory Respiratory: Denies cough, Denies dyspnea, Denies dyspnea on exertion and Denies wheezing Gastrointestinal Gastrointestinal: Denies abdominal pain, Denies change in bowel habits, Denies diarrhea, Denies nausea and Denies vomiting Musculoskeletal Musculoskeletal: Reports back pain, Denies neck pain, Denies numbness and Reports radiating pain into limb Integumentary/Breasts Skin/Breast: Denies pruritus, Denies erythema, Denies rash and Denies wounds Neurologic Neurologic: Denies behavioral changes, Denies confusion, Denies dizziness, Denies frequent falls, Denies loss of vision, Denies numbness and Denies weakness Psychiatric Psychiatric: Denies anxiety, Denies behavioral changes, Denies confusion, Denies depression, Denies homicidal ideation and Denies suicidal ideation Endocrine Endocrine: Denies fatigue, Denies flushing and Denies palpitations Hematologic/Lymphatic Hematologic/Lymphatic: Denies easy bruising Allergic/Immunologic Allergic/Immunologic: Denies urticaria, Denies throat swelling and Denies wheezing Patient History <Steve Gloria PA-C - Last Filed: 08/11/24 15:39> Medical History Impaired cognition Left knee pain Chronic diarrhea Eustachian tube dysfunction Seasonal allergic rhinitis Dyspepsia Anemia Tinea Abdominal wall pain in both lower quadrants Constipation Aftercare following left shoulder joint replacement surgery Preoperative clearance Left lateral epicondylitis Adhesive capsulitis Right wrist sprain Oral lesion Colles' fracture Right wrist pain Left shoulder strain Anxiety Fibromyalgia Sinus drainage Chronic ankle pain, bilateral Rheumatoid arthritis Acute exacerbation of chronic bronchitis Foraminal stenosis of lumbar region Peripheral neuropathy Pneumonia (~2018) Impotence (Unknown) Restless leg syndrome (Unknown) Arthritis (Unknown) Chronic pain syndrome (Unknown) Kidney stones (Unknown) Prostate cancer (Unknown) Skin cancer (Unknown) Hepatitis C (Unknown) Hypertension (Unknown) Migraines (Unknown) PTSD (post-traumatic stress disorder) (Unknown) Depression (Unknown) Surgical History S/P lumbar fusion History of lumbar fusion (05/10/22) History of ankle surgery 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 Social History marital status: household members: spouse lives independently: Yes occupational status: previously employed Smoking Status: Former smoker Tobacco: How many years used: 20 quit status: has quit before alcohol intake: former substance use type: former substance user and marijuana Smoking Status: Former smoker tobacco type: cigarettes alcohol intake frequency: holidays/special occasions only Substance Use Type: does not use Exam <Steve Gloria PA-C - Last Filed: 08/11/24 15:39> Narrative Exam Narrative: Const General:?cooperative, healthy appearing and comfortable HENIL Head:?normal to inspection Ears:?hearing grossly normal bilaterally Nose:?external nose normal Face and sinus:?normal facial exam and sinuses nontender Mouth:?oral mucosae normal Throat:?posterior oropharynx normal Eyes General:?appearance normal, both eyes and all related structures Neck Neck:?normal visual inspection and no lymphadenopathy noted Resp Effort & Inspection:?normal respiratory effort Auscultation:?clear to auscultation bilaterally Cardio Rate:?regular rate Rhythm:?regular rhythm Musculoskeletal There is some midline tenderness to palpation in the lumbar region. Patient is able to bear weight and walk. Neurovascularly intact. Neuro General:?patient alert, patient awake and patient oriented x3 Initial Vital Signs Initial Vital Signs: Vital Signs Temperature 98.6 F 08/10/24 16:09 Pulse Rate 78 08/10/24 16:09 Respiratory Rate 20 08/10/24 16:09 Blood Pressure 124/57 L 08/10/24 16:09 Pulse Oximetry 96 08/10/24 16:09 Oxygen Delivery Method Room Air 08/10/24 16:09 <DO Glendy Up Last Filed: 08/12/24 18:09> Initial Vital Signs Initial Vital Signs: Vital Signs Temperature 98.6 F 08/10/24 16:09 Pulse Rate 78 08/10/24 16:09 Respiratory Rate 20 08/10/24 16:09 Blood Pressure 124/57 L 08/10/24 16:09 Pulse Oximetry 96 08/10/24 16:09 Oxygen Delivery Method Room Air 08/10/24 16:09 Course <Steve Gloria PA-C - Last Filed: 08/11/24 15:39> Orders Ordered: ED Orders 08/10/24 16:48 XR lumbar spine 2-3V Stat Vital Signs Vital signs: Vital Signs - 8 hr 08/10/24 16:09 Temperature 98.6 F Pulse Rate 78 Respiratory Rate 20 Blood Pressure 124/57 L Pulse Oximetry 96 Oxygen Delivery Method Room Air <DO Glendy Up Last Filed: 08/12/24 18:09> Orders Ordered: ED Orders 08/10/24 16:48 XR lumbar spine 2-3V Stat Vital Signs Vital signs: Vital Signs - 8 hr 08/10/24 16:09 Temperature 98.6 F Pulse Rate 78 Respiratory Rate 20 Blood Pressure 124/57 L Pulse Oximetry 96 Oxygen Delivery Method Room Air MDM - Back Pain/Injury <Steve Gloria PA-C - Last Filed: 08/11/24 15:39> [facility] Narrative Medical decision making narrative: 78-year-old male with chronic pain issues, chronic back pain presents to the ED with an acute on chronic exacerbation of the back pain due to a recent fall. Obtained a lumbar x-ray to rule out fractures. X-ray with no acute hardware or osseous fracture. Patient is able to walk. Prescribed muscle relaxants. Recommend follow-up with PCP as soon as possible. ED return precautions discussed with patient. Patient verbalized understanding. Medical records reviewed: Yes Discharge Plan Departure Patient Disposition: Home Clinical Impression: Back pain Qualifiers: Back pain location: low back pain Chronicity: chronic Back pain laterality: unspecified Sciatica presence: with sciatica Sciatica laterality: sciatica laterality unspecified Qualified Code(s): M54.40 - Lumbago with sciatica, unspecified side Instructions: DI for Back Pain With Sciatica Activity Restrictions/Additional Instructions: You were evaluated in the ED today after a fall. Your x-ray was negative. You are being prescribed some muscle relaxants to help with the pain. Please follow-up with your PCP as soon as possible. Return to the ED if you have worsening symptoms. Prescriptions: New cyclobenzaprine 10 mg tablet 10 mg PO TID PRN (Reason: muscle spasm) 3 Days Qty: 10 0RF No Action ipratropium bromide 21 mcg (0.03 %) spray,non-aerosol 2 spray intranasal BID PRN (Reason: Rhinorrhea) Qty: 30 0RF Rx Instructions: administer into each nostril albuterol sulfate 2.5 mg /3 mL (0.083 %) solution for nebulization 2.5 mg Continuous Nebulization Q6HP PRN (Reason: shortness of breath or wheezing) Qty: 360 2RF albuterol sulfate 90 mcg/actuation HFA aerosol inhaler 1 inh INHALATION Q4-6H PRN (Reason: shortness of breath) Qty: 18 4RF omeprazole 40 mg capsule,delayed release(DR/EC) 40 mg PO DAILY Qty: 90 3RF Rx Instructions: take 1 capsule by mouth once daily lidocaine 5 % adhesive patch,medicated 2 patch topical DAILY Qty: 30 1RF Rx Instructions: leave on most painful area for up to 12 hrs nitroglycerin 0.4 mg tablet, sublingual 0.4 mg sublingual Q5M PRN (Reason: chest pain) Qty: 20 1RF Rx Instructions: do not exceed 3 doses per episode sulfasalazine 500 mg tablet 1,000 mg PO BID Qty: 180 1RF cholecalciferol (vitamin D3) 1,250 mcg (50,000 unit) capsule 1,250 mcg PO QWEEK Qty: 12 0RF ascorbic acid (vitamin C) 500 mg tablet 500 mg PO DAILY Qty: 90 0RF Rx Instructions: Take with iron mecobalamin (vitamin B12) [B12 Active] 1,000 mcg tablet,chewable 1,000 mcg PO DAILY Qty: 90 3RF metoprolol succinate 100 mg tablet extended release 24 hr 100 mg PO DAILY Qty: 90 1RF fluoxetine 20 mg capsule 20 mg PO DAILY Qty: 90 3RF Rx Instructions: Take with 10 mg to complete 30 mg dose fluoxetine 10 mg capsule See Rx Instructions .ROUTE .COMPLEX Qty: 90 3RF Dose Instruction: take 1 capsule by mouth once daily WITH 20MG CAP DAILY TOTAL 30 MG DAILY Rx Instructions: take 1 capsule by mouth once daily WITH 20MG CAP DAILY TOTAL 30 MG DAILY hydromorphone 2 mg tablet 2 mg PO BEDTIME PRN (Reason: pain) Qty: 30 0RF Rx Instructions: May refill on Dec 02, 2023 oxycodone 10 mg tablet 10 mg PO Q8H PRN (Reason: pain) Qty: 90 0RF prednisone 5 mg tablet 5 mg PO DAILY Qty: 30 5RF Rx Instructions: start taking every day ferrous gluconate 324 mg (37.5 mg iron) tablet 324 mg PO DAILY Qty: 90 2RF Rx Instructions: start taking daily, with food or juice nortriptyline 10 mg capsule 10 mg PO BEDTIME Qty: 30 1RF ondansetron 8 mg tablet,disintegrating 8 mg PO Q8H PRN (Reason: nausea and vomiting) Qty: 30 1RF zolmitriptan [Zomig] 5 mg tablet See Rx Instructions PO .COMPLEX Qty: 10 1RF Rx Instructions: take 1 tab at onset of headache; if no relief, may repeat 1 tab after at least 2 hrs; max = 2 tabs/24 hrs PO prednisone 20 mg tablet 20 mg PO DAILY Qty: 7 0RF Rx Instructions: take for one week potassium chloride 20 mEq tablet extended release 20 meq PO BID Qty: 10 0RF valacyclovir 1 gram tablet 1,000 mg PO TID Qty: 30 0RF meclizine 25 mg tablet 25 mg PO TID PRN (Reason: dizziness) Qty: 10 0RF lidocaine 5 % adhesive patch,medicated 1 patch topical DAILY Qty: 15 0RF Rx Instructions: leave on most painful area for up to 12 hrs ondansetron HCl 4 mg tablet 4 mg PO Q6H PRN (Reason: nausea and vomiting) Qty: 10 0RF naloxone [Narcan] 4 mg/actuation spray,non-aerosol 1 spray intranasal Q2M Qty: 2 0RF Rx Instructions: spray 1 dose into ONE nostril; alternate nostrils w each dose until help arrives Disabled Parking Permit 1 1 % SEEINSTR Rx Instructions: Valid for 5 years amlodipine 5 mg tablet 5 mg PO DAILY Patient Comments: pt received dose in hospital 11/10/19 early AM admit to hydrochlorothiazide 25 mg tablet 12.5 mg PO QAM ipratropium-albuterol 0.5 mg-3 mg(2.5 mg base)/3 mL solution for nebulization 3 ml inhalation Q6H PRN (Reason: shortness of breath or wheezing) Qty: 90 0RF methocarbamol 750 mg tablet 750 mg PO QID Qty: 30 0RF Referrals: Edilberto Snell DO [Primary Care Provider] - Stand Alone Forms: Patient Portal/API/Survey ED Sign-out <Carie Escalante DO - Last Filed: 08/12/24 18:09> Cosign ED Attending Liliana Attestation: I was immediately available in the department for consultation.
== END 2024-08-10 17:49 | disposition home or self-care (01) ==
PROVIDERS: Emergency Provider Student in an Organized Health Care Education/Training Program; PCP Family Medicine
DX: M54.42 Lumbago with sciatica, left side (principal)
CPT/HCPCS: 72100; 99283

== ENCOUNTER 2024-08-18 08:59 | Emergency (ER) | payer MEDICARE, OTHER, SELFPAY ==
[2024-02-02 03:27] VITALS: BMI 29.4
[2024-08-18] VITALS (19 sets, daily range): BP systolic 119–175; BP diastolic 58–125; PULSE 68–97; RESP 16–33; TEMP 36.4; O2SAT 91–99; BMI 30.8
--- NOTE | 2024-08-18 09:02 | EKG_ITS ---
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
--- NOTE | 2024-08-18 09:02 | DI.RAD.S_ITS ---
PROCEDURE: XR CHEST 1V INDICATIONS: chest pain TECHNIQUE: One view of the chest was acquired. COMPARISON: [facility], CR, XR CHEST 1V, 06/28/2024, 15:47. FINDINGS: Surgical changes and devices: Bilateral shoulder arthroplasties, lumbar fusion hardware Lungs and pleura: Lungs are clear. No pleural effusions or pneumothorax. . Multiple calcified right-sided granulomata. Mediastinum: Mediastinal contours appear normal. Heart size is normal. Calcified mediastinal lymph nodes consistent with chronic granulomatous involvement. Bones and chest wall: No suspicious bony lesions. Overlying soft tissues appear unremarkable. IMPRESSION: No acute cardiopulmonary abnormality is seen. Dictated by: Manuel Ly M.D. on 08/18/2024 at 9:35 Approved by: Manuel Ly M.D. on 08/18/2024 at 9:35
--- NOTE | 2024-08-18 09:48 | ED_ITS ---
HPI - Chest Pain General Chief Complaint: Chest Pain Stated Complaint: chest pain Time Seen by Provider: 08/18/24 09:08 Source: patient Mode of arrival: Family Vehicle Limitations: no limitations History of Present Illness HPI narrative: 78-year-old male history of chronic pain, chronic back pain, rheumatoid arthritis, COPD, hypertension who presents with complaint of substernal epigastric chest pain started about 20 minutes prior to arrival. Patient states came on fairly abruptly radiates up towards his neck little bit towards his back. He states sort of waxes and wanes in intensity has not resolved. Does feel short of breath with it. Denies fevers or chills. States he got sweaty when it occurred felt sort of confused. States he had some nausea but no vomiting. Denies any issues with bowel movements or urination. Denies any issues with swelling of extremities. Patient states his primary care physician recently added Flexeril and some pain medication he has had a flare of his rheumatoid recently. Reports allergies to cyclobenzaprine, ibuprofen and Tylenol. Former smoker, occasional alcohol, denies any recreational drugs. Dr. Snell as his primary care physician. He has seen Cardiology once before [facility] several years ago had stress test and workup which was negative at that time. Related Data Home Medications Medication Instructions Recorded Confirmed Disabled Parking Permit 1 % SEEINSTR 11/08/20 08/17/24 amlodipine 5 mg tablet 5 mg PO DAILY 11/08/22 08/17/24 hydrochlorothiazide 25 mg tablet 12.5 mg PO QAM 11/15/22 08/17/24 Previous Rx's Medication Instructions Recorded albuterol sulfate 2.5 mg/3 mL 2.5 mg (3 mL) continuous 10/24/22 (0.083 %) solution for nebulization nebulization Q6HP PRN shortness of breath or wheezing #360 mL albuterol sulfate 90 mcg/actuation 1 inh inhalation Q4-6H PRN 12/27/22 aerosol inhaler shortness of breath #18 grams omeprazole 40 mg capsule,delayed 40 mg PO DAILY #90 caps 01/01/23 release lidocaine 5 % topical patch 2 patch topical DAILY #30 ea 01/08/23 potassium chloride 20 mEq 20 meq PO BID #10 tabs 02/26/23 tablet,extended release ipratropium 0.5 mg-albuterol 3 mg 3 ml inhalation Q6H PRN shortness 06/06/23 (2.5 mg base)/3 mL nebulization of breath or wheezing #90 mL soln valacyclovir 1 gram tablet 1,000 mg PO TID #30 tabs 09/02/23 nitroglycerin 0.4 mg sublingual 0.4 mg sublingual Q5M PRN chest 10/03/23 tablet pain #20 tabs ferrous gluconate 324 mg (37.5 mg 324 mg PO DAILY #90 tabs 10/22/23 iron) tablet sulfasalazine 500 mg tablet 1,000 mg (2 x 500 mg) PO BID #180 11/28/23 tabs ascorbic acid (vitamin C) 500 mg 500 mg PO DAILY #90 tabs 12/13/23 tablet cholecalciferol (vitamin D3) 1,250 1,250 mcg PO QWEEK #12 caps 12/13/23 mcg (50,000 unit) capsule nortriptyline 10 mg capsule 10 mg PO BEDTIME #30 caps 12/17/23 ondansetron 8 mg disintegrating 8 mg PO Q8H PRN nausea and 12/17/23 tablet vomiting #30 tabs zolmitriptan 5 mg tablet (Zomig) See Rx Instructions PO .COMPLEX 12/17/23 #10 tabs meclizine 25 mg tablet 25 mg PO TID PRN dizziness #10 tabs 01/23/24 mecobalamin (vitamin B12) 1,000 1,000 mcg PO DAILY #90 tabs 02/11/24 mcg chewable tablet (B12 Active) ipratropium bromide 21 mcg (0.03 2 spray intranasal BID PRN 03/05/24 %) nasal spray Rhinorrhea #30 mL fluoxetine 10 mg capsule See Rx Instructions .Route 04/20/24 .COMPLEX #90 caps fluoxetine 20 mg capsule 20 mg PO DAILY #90 caps 04/20/24 metoprolol succinate 100 mg 100 mg PO DAILY #90 tabs 04/20/24 tablet,extended release 24 hr lidocaine 5 % topical patch 1 patch topical DAILY #15 ea 05/21/24 prednisone 5 mg tablet 5 mg PO DAILY #30 tabs 06/22/24 naloxone 4 mg/actuation nasal 1 spray intranasal Q2M #2 ea 08/05/24 spray (Narcan) ondansetron HCl 4 mg tablet 4 mg PO Q6H PRN nausea and 08/05/24 vomiting #10 tabs hydromorphone 2 mg tablet 2 mg PO BEDTIME PRN pain #30 tabs 08/17/24 methocarbamol 750 mg tablet 750 mg PO QID 30 days #120 tabs 08/17/24 oxycodone 10 mg tablet 10 mg PO Q8H PRN pain #90 tabs 08/17/24 prednisone 20 mg tablet 20 mg PO DAILY #7 tabs 08/17/24 aspirin 81 mg tablet,delayed 81 mg PO DAILY #30 tabs 08/18/24 release (Enteric Coated Aspirin) nitroglycerin 0.4 mg sublingual 0.4 mg sublingual Q5M PRN chest 08/18/24 tablet pain #10 tabs Allergies Allergy/AdvReac Type Severity Reaction Status Date / Time cyclobenzaprine Allergy Severe Dizziness, Verified 08/18/24 09:11 [From Flexeril] I bounce off ag ibuprofen AdvReac Intermediate Redness of Verified 08/18/24 09:11 Skin acetaminophen [ACETAMINOPHEN] AdvReac Unknown Can't take Verified 08/18/24 09:11 r/t Hep C; upset stomach Review of Systems Review of Systems ROS Unobtainable: All systems reviewed & are unremarkable except as noted in HPI and below Patient History Medical History Bronchitis Impaired cognition Left knee pain Chronic diarrhea Eustachian tube dysfunction Seasonal allergic rhinitis Dyspepsia Anemia Tinea Abdominal wall pain in both lower quadrants Constipation Aftercare following left shoulder joint replacement surgery Preoperative clearance Left lateral epicondylitis Adhesive capsulitis Right wrist sprain Oral lesion Colles' fracture Right wrist pain Left shoulder strain Anxiety Fibromyalgia Sinus drainage Chronic ankle pain, bilateral Rheumatoid arthritis Acute exacerbation of chronic bronchitis Foraminal stenosis of lumbar region Peripheral neuropathy Pneumonia (~2018) Impotence (Unknown) Restless leg syndrome (Unknown) Arthritis (Unknown) Chronic pain syndrome (Unknown) Kidney stones (Unknown) Prostate cancer (Unknown) Skin cancer (Unknown) Hepatitis C (Unknown) Hypertension (Unknown) Migraines (Unknown) PTSD (post-traumatic stress disorder) (Unknown) Depression (Unknown) Surgical History S/P lumbar fusion History of lumbar fusion (05/10/22) History of ankle surgery 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 Social History marital status: household members: spouse lives independently: Yes occupational status: previously employed Smoking Status: Former smoker Tobacco: How many years used: 20 quit status: has quit before alcohol intake: former substance use type: former substance user and marijuana Smoking Status: Former smoker tobacco type: cigarettes alcohol intake frequency: holidays/special occasions only Substance Use Type: does not use Exam Narrative Exam Narrative: GENERAL: Alert and oriented x three, male in mild distress. No diaphoresis. HEENT: Head normocephalic, atraumatic, EOMI, pupils reactive, face symmetric, moist mucous membranes NECK: Supple, full range of motion CARDIOVASCULAR: Regular rate and rhythm without murmurs, rubs or gallops. No JVD. No edema bilateral lower extremities. RESPIRATORY: Breath sounds equal bilaterally, no wheezes rales or rhonchi. ABDOMEN: Soft, nontender. Normoactive bowel sounds all 4 quadrants. No guarding or rebound, rigidity, no mass, no pulsatile mass : No CVA tenderness EXTREMITIES: Normal range of motion, no clubbing or edema. Neurovascularly intact NEUROLOGICAL: Cranial nerves II through XII grossly intact. Moving all extremities SKIN: Warm, dry, no petechiae, no rashes or lesions. Initial Vital Signs Initial Vital Signs: Vital Signs Temperature 97.5 F L 08/18/24 09:08 Pulse Rate 75 08/18/24 09:08 Respiratory Rate 18 08/18/24 09:08 Blood Pressure 175/98 H 08/18/24 09:08 Pulse Oximetry 95 08/18/24 09:08 Oxygen Delivery Method Room Air 08/18/24 09:08 Course Orders Ordered: ED Orders 08/18/24 09:02 XR chest 1V Stat EKG-12 Lead Stat 08/18/24 09:39 Complete Blood Count AUTO DIFF Stat Comprehensive Metabolic Panel Stat Lipase Stat Magnesium Stat NT-proBNP (BNP-Adult 18+) Stat PTT Partial Thromboplastin Rao Stat Prothrombin Time INR Stat Troponin & CK Cardiac Panel Stat 08/18/24 10:44 CT angio chest abdomen pelvis Stat 08/18/24 11:50 Trop I [Troponin I] Stat EKG-12 Lead Routine Discontinued Medications Aspirin (Aspirin 81 Mg Chew Tab) 324 mg PO NOW ONE Stop: 08/18/24 09:02 Last Admin: 08/18/24 10:12 Dose: 324 mg Documented By: NBA Nitroglycerin (Nitroglycerin 0.4 Mg Sl Tab) 0.4 mg SL [id number] PRN PRN Reason: Chest Pain Last Admin: 08/18/24 11:36 Dose: 0.4 mg Documented By: CAMILLA Oxycodone HCl (Oxycodone Ir 10 Mg Tablet) 10 mg PO NOW ONE Stop: 08/18/24 13:03 Oxycodone HCl (Oxycodone Ir 5 Mg Tablet) 10 mg PO NOW ONE Stop: 08/18/24 13:16 Last Admin: 08/18/24 13:11 Dose: 10 mg Documented By: CAMILLA Vital Signs Vital signs: Vital Signs - 8 hr 08/18/24 09:08 08/18/24 09:16 08/18/24 09:30 Temperature 97.5 F L Pulse Rate 75 74 70 Respiratory Rate 18 33 H 28 H Blood Pressure 175/98 H Pulse Oximetry 95 96 96 Oxygen Delivery Method Room Air 08/18/24 09:31 08/18/24 09:31 08/18/24 10:00 Temperature Pulse Rate 72 72 Respiratory Rate 23 21 Blood Pressure 152/87 H Pulse Oximetry 95 96 Oxygen Delivery Method Room Air 08/18/24 10:00 08/18/24 10:22 08/18/24 10:22 Temperature Pulse Rate 71 Respiratory Rate Blood Pressure 157/78 H 151/125 H Pulse Oximetry 99 Oxygen Delivery Method 08/18/24 10:30 08/18/24 11:04 08/18/24 11:04 Temperature Pulse Rate 72 70 Respiratory Rate 21 Blood Pressure 144/76 H Pulse Oximetry 97 91 Oxygen Delivery Method 08/18/24 11:21 08/18/24 11:21 08/18/24 11:30 Temperature Pulse Rate 73 77 Respiratory Rate Blood Pressure 135/63 Pulse Oximetry 97 94 Oxygen Delivery Method 08/18/24 11:36 08/18/24 11:36 08/18/24 11:36 Temperature Pulse Rate 82 78 Respiratory Rate Blood Pressure 135/63 121/59 L Pulse Oximetry 92 Oxygen Delivery Method 08/18/24 11:41 08/18/24 11:41 08/18/24 11:56 Temperature Pulse Rate 76 71 Respiratory Rate Blood Pressure 129/58 L Pulse Oximetry 93 94 Oxygen Delivery Method 08/18/24 11:56 08/18/24 12:00 08/18/24 12:00 Temperature Pulse Rate 73 Respiratory Rate Blood Pressure 119/69 126/71 Pulse Oximetry 94 Oxygen Delivery Method 08/18/24 12:10 08/18/24 12:10 08/18/24 12:20 Temperature Pulse Rate 69 97 H Respiratory Rate 20 Blood Pressure 130/72 Pulse Oximetry 96 93 Oxygen Delivery Method 08/18/24 12:20 08/18/24 12:30 08/18/24 12:41 Temperature Pulse Rate 68 Respiratory Rate 19 Blood Pressure 146/67 H 131/61 Pulse Oximetry 96 Oxygen Delivery Method 08/18/24 12:41 08/18/24 13:00 08/18/24 13:00 Temperature Pulse Rate 68 71 Respiratory Rate 16 24 Blood Pressure 134/61 Pulse Oximetry 97 97 Oxygen Delivery Method MDM - Chest Pain Lab Data 08/18/24 09:39 08/18/24 09:39 Labs: Lab Results 08/18/24 08/18/24 Range/Units 09:39 11:50 WBC 10.4 (4.5-11.0) X10^3/uL RBC 4.27 L (4.5-5.9) X10^6/uL Hgb 12.0 L (13.5-17.5) g/dL Hct 36.2 L (41-53) % MCV 84.9 (80-100) fL MCH 28.1 (26-34) PG MCHC 33.1 (30-36) % RDW 16.5 H (11.6-14.8) % Plt Count 217 (150-400) X10^3/uL Neut % (Auto) 76.0 H (50-75) % Lymph % (Auto) 9.9 L (25-40) % [place] % (Auto) 11.7 (3-14) % Eos % (Auto) 1.8 L (2-4) % Baso % (Auto) 0.6 (0-2) % Neut # (Auto) 7900 H (7715-1030) /uL Lymph # (Auto) 1000 L (3237-1943) /uL [place] # (Auto) 1200 H (0-900) /uL Eos # (Auto) 200 (0-450) /uL Baso # (Auto) 100 (0-100) /uL PT 11.5 (9.4-12.5) SECONDS INR 1.0 (0.9-1.3) APTT 30 (25.1-36.5) SECONDS Sodium 134 L (137-145) mmol/L Potassium 4.0 (3.4-5.1) mmol/L Chloride 101 (98-107) mmol/L Carbon Dioxide 25 (22-32) mmol/L BUN 17 (9-20) mg/dL Creatinine 1.10 (0.66-1.25) mg/dL Estimated GFR > 60 (>60) mL/min BUN/Creatinine Ratio 15.5 (6-22) Glucose 102 (80-110) mg/dL Calcium 8.6 (8.4-10.2) mg/dL Magnesium 1.7 (1.6-2.3) mg/dL Total Bilirubin 0.6 (0.2-1.3) mg/dL AST 30 (17-59) IU/L ALT 19 (<50) IU/L Alkaline Phosphatase 73 (38-126) U/L Total Creatine Kinase 113 (55-170) U/L Troponin I 0.019 0.018 (0.01-0.034) ng/mL NT-Pro-B Natriuret Pep 603 H (<450) pg/mL Total Protein 7.5 (6.3-8.2) g/dL Albumin 4.4 (3.5-5.0) g/dL Globulin 3.1 (1.7-4.1) g/dL Albumin/Globulin Ratio 1.4 (1.0-2.8) Lipase 38 (23-300) U/L Imaging Data Chest x-ray: Radiologist's Impression: Close Chest X-Ray (Signed) Manuel Ly - 08/18/24 Lumbar Spine X-Ray (Signed) Gabriella Mccormick - 08/10/24 Thoracic Spine X-Ray (Signed) Hernando Mcpherson - 07/23/24 Lumbar Spine X-Ray (Signed) Ky,Hernando - 07/23/24 Shoulder X-Ray (Signed) Reese,Kaya - 07/02/24 Clavicle X-Ray (Signed) Reese,Kaya - 07/02/24 Chest X-Ray (Signed) Tereso Parnell - 06/28/24 Hand X-Ray (Signed) San,Hebert - 06/10/24 Abdomen/Pelvis CT (Signed) PetronaCassi - 05/21/24 Abdomen/Pelvis CT (Signed) FahadHollie delgadoe - 05/09/24 Chest X-Ray (Signed) Kaci Calabrese - 04/18/24 Chest/Abdomen/Pelvis CT (Signed) Bob Brock - 02/02/24 Chest X-Ray (Signed) Henry,Mario - 02/02/24 Chest X-Ray (Signed) San,Hebert - 01/23/24 Knee X-Ray (Signed) Henry,Mario - 01/18/24 Wrist X-Ray (Signed) Henry,Mario - 01/18/24 Wrist X-Ray (Signed) Henry,Mario - 01/18/24 Shoulder X-Ray (Signed) San,Hebert - 01/10/24 Knee X-Ray (Signed) San,Hebert - 01/10/24 Knee X-Ray (Signed) Krishna Chavez - 12/30/23 Wrist X-Ray (Signed) Krishna Chavez - 12/30/23 Wrist X-Ray (Cancelled) 12/30/23 Shoulder X-Ray (Signed) Krishna Chavez - 12/30/23 Ribs X-Ray (Signed) Krishna Chavez - 12/30/23 Shoulder X-Ray (Signed) Mohit Olivares - 11/27/23 Knee X-Ray (Signed) Lisha,Feiyu - 11/20/23 Chest X-Ray (Signed) Lisha,Feiyu - 11/20/23 Knee X-Ray (Signed) Lisha,Feiyu - 11/15/23 Knee X-Ray (Signed) Lisha,Feiyu - 11/15/23 Chest X-Ray (Signed) Lisha,Feiyu - 11/15/23 Knee X-Ray (Signed) Leonel Clementeer - 11/11/23 Knee X-Ray (Signed) Jeyakamrit,Dustin - 10/31/23 Chest X-Ray (Signed) Leticia,Arthie - 10/31/23 Wrist X-Ray (Signed) Malachi Fernandez - 10/30/23 Wrist MRI (Signed) Mohit Olivares - 10/30/23 Knee MRI (Signed) Mohit Olivares - 10/30/23 Wrist X-Ray (Signed) Jason Hdez - 10/01/[address] (Signed) Kaya Leigh - 09/30/23 Knee X-Ray (Signed) Tereso Parnell - 09/30/[address] (Signed) San,Hebert - 09/30/[address] (Signed) San,Hebert - 09/30/23 Shoulder X-Ray (Signed) Gabriella Mccormick - 09/20/23 Knee X-Ray (Signed) Mohit Olivares - 09/20/23 Chest X-Ray (Signed) Arturo Shah - 09/16/23 Chest X-Ray (Signed) Jason Hdez - 09/09/23 Abdomen/Pelvis CT (Signed) Jason Hdez - 09/09/23 Ribs X-Ray (Signed) HennykDustin marcus - 09/09/23 Hip X-Ray (Signed) Jemauri,Arthie - 09/09/23 Abdomen/Pelvis CT (Signed) Todd Gage - 09/02/23 Hip X-Ray (Signed) San,Hebert - 07/13/23 Femur X-Ray (Signed) San,Hebert - 07/13/23 Shoulder X-Ray (Signed) Willis,Hipolito - 07/11/23 Shoulder X-Ray (Signed) Willis,Hipolito - 07/11/23 Knee X-Ray (Signed) Willis,Hipolito - 07/11/23 Ankle X-Ray (Signed) Willis,Hipolito - 07/11/[address] (Signed) Racquel,Steve - 07/11/[address] (Signed) Manuel Ly - 07/10/[address] (Signed) Manuel Ly - 07/10/23 Wrist X-Ray (Signed) Gabriella Mccormick - 07/10/23 Launch?Image [address] [address] XRay Report Signed Patient: Barrett Tam MR#: [id number] : 1945 Acct:[id number] Age/Sex: 78 / M Date of Service: 08/18/24 Loc: ED Accession Number: [id number] Procedure: XR chest 1V Ordering Provider: Carie Escalante D.O. PROCEDURE: XR CHEST 1V INDICATIONS: chest pain TECHNIQUE: One view of the chest was acquired. COMPARISON: [facility], , XR CHEST 1V, 06/28/2024, 15:47. FINDINGS: Surgical changes and devices: Bilateral shoulder arthroplasties, lumbar fusion hardware Lungs and pleura: Lungs are clear. No pleural effusions or pneumothorax. . Multiple calcified right-sided granulomata. Mediastinum: Mediastinal contours appear normal. Heart size is normal. Calcified mediastinal lymph nodes consistent with chronic granulomatous involvement. Bones and chest wall: No suspicious bony lesions. Overlying soft tissues appear unremarkable. IMPRESSION: No acute cardiopulmonary abnormality is seen. Dictated by: Manuel Ly M.D. on 08/18/2024 at 9:35 Approved by: Manuel Ly M.D. on 08/18/2024 at 9:35 CTA chest/abd/pelvis: Radiologist's Impression: Diagnostics Reports Barrett Tam??78??M??1945 ? Allergy/Adv: cyclobenzaprine, ibuprofen, acetaminophen (More??) Close Chest/Abdomen/Pelvis CTA (Signed) Manuel Ly - 08/18/24 Chest X-Ray (Signed) Manuel Ly - 08/18/24 Lumbar Spine X-Ray (Signed) Gabriella Mccormick - 08/10/24 Thoracic Spine X-Ray (Signed) Hernando Mcpherson - 07/23/24 Lumbar Spine X-Ray (Signed) Hernando Mcpherson - 07/23/24 Shoulder X-Ray (Signed) Reese,Kaya - 07/02/24 Clavicle X-Ray (Signed) Reese,Kaya - 07/02/24 Chest X-Ray (Signed) Tereso Parnell - 06/28/24 Hand X-Ray (Signed) San,Hebert - 06/10/24 Abdomen/Pelvis CT (Signed) PetronaCassi tse - 05/21/24 Abdomen/Pelvis CT (Signed) Ruben Vásquezsse - 05/09/24 Chest X-Ray (Signed) Kaci Calabrese - 04/18/24 Chest/Abdomen/Pelvis CT (Signed) Bob Brock - 02/02/24 Chest X-Ray (Signed) HenryMario - 02/02/24 Chest X-Ray (Signed) San,Hebert - 01/23/24 Knee X-Ray (Signed) Henry,Mario - 01/18/24 Wrist X-Ray (Signed) Henry,Mario - 01/18/24 Wrist X-Ray (Signed) Henry,Mario - 01/18/24 Shoulder X-Ray (Signed) San,Hebert - 01/10/24 Knee X-Ray (Signed) San,Hebert - 01/10/24 Knee X-Ray (Signed) Krishna Chavez - 12/30/23 Wrist X-Ray (Signed) Krishna Chavez - 12/30/23 Wrist X-Ray (Cancelled) 12/30/23 Shoulder X-Ray (Signed) Krishna Chavez - 12/30/23 Ribs X-Ray (Signed) Krishna Chavez - 12/30/23 Shoulder X-Ray (Signed) Mohit Olivares - 11/27/23 Knee X-Ray (Signed) Lisha,Feiyu - 11/20/23 Chest X-Ray (Signed) Lisha,Feiyu - 11/20/23 Knee X-Ray (Signed) Lisha,Feiyu - 11/15/23 Knee X-Ray (Signed) Lisha,Feiyu - 11/15/23 Chest X-Ray (Signed) Lisha,Feiyu - 11/15/23 Knee X-Ray (Signed) Steve Clement - 11/11/23 Knee X-Ray (Signed) Dustin Kelly - 10/31/23 Chest X-Ray (Signed) Dustin Kelly - 10/31/23 Wrist X-Ray (Signed) Malachi Fernandez - 10/30/23 Wrist MRI (Signed) Mohit Olivares - 10/30/23 Knee MRI (Signed) Mohit Olivares - 10/30/23 Wrist X-Ray (Signed) Jason Hdez - 10/01/[address] (Signed) Mini Leighe - 09/30/23 Knee X-Ray (Signed) Tereso Parnell - 09/30/[address] (Signed) San,Hebert - 09/30/[address] (Signed) San,Hebert - 09/30/23 Shoulder X-Ray (Signed) Gabriella Mccormick - 09/20/23 Knee X-Ray (Signed) Mohit Olivares - 09/20/23 Chest X-Ray (Signed) Arturo Shah - 09/16/23 Chest X-Ray (Signed) Jason Hdez - 09/09/23 Abdomen/Pelvis CT (Signed) Jason Hdez - 09/09/23 Ribs X-Ray (Signed) Dustin Kelly - 09/09/23 Hip X-Ray (Signed) Dustin Kelly - 09/09/23 Abdomen/Pelvis CT (Signed) Todd Gage - 09/02/23 Hip X-Ray (Signed) San,Hebert - 07/13/23 Femur X-Ray (Signed) San,Hebert - 07/13/23 Shoulder X-Ray (Signed) Willis,Hipolito - 07/11/23 Shoulder X-Ray (Signed) Willis,Hipolito - 07/11/23 Knee X-Ray (Signed) WillisHipolito - 07/11/23 Ankle X-Ray (Signed) WillisHipolito vargas - 07/11/[address] (Signed) Steve Clement - 07/11/[address] (Signed) Manuel Ly - 07/10/23 [place] [address] CT Scan Report Signed Patient: Barrett Tam MR#: [id number] : 1945 Acct:[id number] Age/Sex: 78 / M Date of Service: 08/18/24 Loc: ED Accession Number: [id number] Procedure: CT angio chest abdomen pelvis Ordering Provider: Carie Escalante D.O. PROCEDURE: CT ANGIO CHEST ABDOMEN PELVIS INDICATIONS: chest/epigastric pain, radiates to back, htn TECHNIQUE: Precontrast 5 mm thick sections acquired from the lung apices to the iliac crests. After the administration of intravenous contrast, 2.5 mm thick sections again acquired from the lung apices to the iliac crests. Maximum intensity projection (MIP) oblique sagittal and coronal reformats were then acquired. For radiation dose reduction, the following was used: automated exposure control. COMPARISON: [facility], CT, CT CHEST ABD PEL W CON, 02/02/2024, 1:50. [facility], CT, CT ABDOMEN PELVIS W CON, 05/21/2024, 10:38. FINDINGS: Image quality: Diagnostic. AORTA and its attachments: Ascending and descending thoracic aorta and abdominal aorta are of normal caliber without aneurysm or dissection or significant stenosis. Classic three-vessel arch anatomy. Great vessel origins are widely patent. SMA, celiac, and ANABELLA are widely patent. Bilateral common iliacs and external iliacs are widely patent. Common femorals are widely patent. Pulmonary tree: Normal caliber. No pulmonary emboli. CHEST: Lower Neck: No enlarged lymph nodes. Thyroid: No thyroid nodules which require sonographic evaluation. Axillae: No enlarged lymph nodes. Chest Wall: Unremarkable. Lungs and Pleura: No pneumothorax or pleural effusions. No consolidation or suspicious nodules. Multiple calcified granulomata bilaterally. In it the is a the Heart: Heart size is normal. No pericardial effusion. Thoracic Vessels: Pulmonary arteries demonstrate normal size. Mediastinum and Patt: No enlarged lymph nodes. Esophagus: No wall thickening. No hiatal hernia. ABDOMEN: Liver: No solid mass. Gallbladder: Surgically absent. Biliary ducts: No biliary dilation. Pancreas: No ductal dilation. Spleen: Size is within normal limits. Adrenal Glands: No adrenal nodules. Kidneys and Ureters: No hydronephrosis. No solid mass. No complex renal cystic lesion which requires follow up. Stomach and Bowel: Normal colonic caliber, without significant wall thickening. Peritoneum: No abnormal intraperitoneal fluid. No free air. Ventral Wall: No hernia. Abdominal Nodes: No retroperitoneal or mesenteric adenopathy by size criteria. Vessels: Inferior vena cava is normal in size. PELVIS: Pelvic Organs: Prostate is surgically absent. Penile prosthesis.. Bladder: Unremarkable. Pelvic Nodes: No enlarged lymph nodes. Miscellaneous: No inguinal hernias are seen. Bones: Total left shoulder arthroplasty. Lumbar posterior decompression and posterior lateral la and pedicle screw fixation. Remote ORIF of the medial right iliac and the symphysis pubis. Lumbar degenerative change. No lytic or blastic bony lesions. IMPRESSION: 1. Unremarkable thoracic and abdominal aorta. 2. No pulmonary emboli. 3. No acute process noted in the chest, abdomen, and pelvis. 4. Chronic granulomatous disease. 5. Remote cholecystectomy and prostatectomy. Dictated by: Manuel Ly M.D. on 08/18/2024 at 11:34 Approved by: Manuel Ly M.D. on 08/18/2024 at 11:44 ECG Data Attestation: I personally reviewed and interpreted this ECG as follows: Prior ECG tracings: available for review Interpretation: Normal sinus rhythm rate of 71 SD 166 QRS is 70 QTC of 428, no acute ST changes. Patient has prior from 04/18/2024 which appears similar. EKG 2. Shows no acute changes, sinus rhythm PVC. Rate of 68 SD 158 QRS 80 QTC 455, no acute ST changes. Your similar to prior earlier today. MDM Narrative Medical decision making narrative: 78-year-old male with complaint of substernal/epigastric pain that radiates up towards his neck, states different than his usual pain issues. No acute EKG changes troponin initial is negative. Chest x-ray is clear. Patient has had some CTs in the past but White count of 10.4, hemoglobin of 12 patient has ranged between 9 and 12 in the past. Platelets are 217. Coags are negative Sodium is 134 potassium is 4 chloride 101 CO2 is 25 with a BUN 17 creatinine of 0.1 0.1, glucose of 102 LFTs are negative, troponin 0.019. BNP is 603. Repeat troponin is 0.018 Chest x-ray negative for acute change. EKG shows sinus rhythm, no acute ST changes, patient has prior from 04/18/2024 which appears similar. Patient complains of chest pain radiating up towards his neck little bit towards his back, does have a history of hypertension is hypertensive here in the department no reproducible pain had CT angio of chest abdomen pelvis was unremarkable thoracic and abdominal aorta no PE, no acute process noted chronic granulomatous disease remote cholecystectomy and prostatectomy imaging. Patient had aspirin 324 mg, patient was given nitro sublingual, on re-evaluation Patient did note he did not take his metoprolol or amlodipine this morning. Discussed findings from today patient's symptoms have resolved after aspirin and nitro SL. Discussed with patient would like to keep for chest pain arms he prefers to return home. Encouraged him to take an aspirin 81 mg daily and he asked for tablets of nitro sublingual he will return if he is recurrent episodes. He has recently seen primary care Dr. Snell we will reach out to try to set him up for outpatient stress testing but discussed concern for potential cardiac event. Patient did request his regular dose of oral pain medication as he is 8 hours since his last dose. Spoke with Dr. Snell, we will set up short term follow up and follow up with the patient. Did just see him yesterday. Discharge Plan Departure Patient Disposition: Home Clinical Impression: Chest pain Instructions: DI for Chest Pain Activity Restrictions/Additional Instructions: Follow up with Dr. Snell, please reach out to the office do think he would benefit from having stress testing and for further workup of your chest pain. Please take an aspirin 81 mg daily. You can take nitro sublingual, 1 tablet sublingually q.5h minutes x3 for chest pain. If you develop recurrent chest pain you should return to the ER for evaluation. Prescription was sent to [facility]. Please return for new chest pain, shortness of breath, lightheadedness or passing out, new swelling of your extremities, persistent vomiting, fevers or other new or concerning changes. Prescriptions: New aspirin [Enteric Coated Aspirin] 81 mg tablet,delayed release (DR/EC) 81 mg PO DAILY Qty: 30 0RF nitroglycerin 0.4 mg tablet, sublingual 0.4 mg sublingual Q5M PRN (Reason: chest pain) Qty: 10 0RF Rx Instructions: do not exceed 3 doses per episode No Action ipratropium bromide 21 mcg (0.03 %) spray,non-aerosol 2 spray intranasal BID PRN (Reason: Rhinorrhea) Qty: 30 0RF Rx Instructions: administer into each nostril albuterol sulfate 2.5 mg /3 mL (0.083 %) solution for nebulization 2.5 mg Continuous Nebulization Q6HP PRN (Reason: shortness of breath or wheezing) Qty: 360 2RF albuterol sulfate 90 mcg/actuation HFA aerosol inhaler 1 inh INHALATION Q4-6H PRN (Reason: shortness of breath) Qty: 18 4RF omeprazole 40 mg capsule,delayed release(DR/EC) 40 mg PO DAILY Qty: 90 3RF Rx Instructions: take 1 capsule by mouth once daily lidocaine 5 % adhesive patch,medicated 2 patch topical DAILY Qty: 30 1RF Rx Instructions: leave on most painful area for up to 12 hrs nitroglycerin 0.4 mg tablet, sublingual 0.4 mg sublingual Q5M PRN (Reason: chest pain) Qty: 20 1RF Rx Instructions: do not exceed 3 doses per episode sulfasalazine 500 mg tablet 1,000 mg PO BID Qty: 180 1RF cholecalciferol (vitamin D3) 1,250 mcg (50,000 unit) capsule 1,250 mcg PO QWEEK Qty: 12 0RF ascorbic acid (vitamin C) 500 mg tablet 500 mg PO DAILY Qty: 90 0RF Rx Instructions: Take with iron mecobalamin (vitamin B12) [B12 Active] 1,000 mcg tablet,chewable 1,000 mcg PO DAILY Qty: 90 3RF metoprolol succinate 100 mg tablet extended release 24 hr 100 mg PO DAILY Qty: 90 1RF fluoxetine 20 mg capsule 20 mg PO DAILY Qty: 90 3RF Rx Instructions: Take with 10 mg to complete 30 mg dose fluoxetine 10 mg capsule See Rx Instructions .ROUTE .COMPLEX Qty: 90 3RF Dose Instruction: take 1 capsule by mouth once daily WITH 20MG CAP DAILY TOTAL 30 MG DAILY Rx Instructions: take 1 capsule by mouth once daily WITH 20MG CAP DAILY TOTAL 30 MG DAILY methocarbamol 750 mg tablet 750 mg PO QID 30 Days Qty: 120 2RF prednisone 5 mg tablet 5 mg PO DAILY Qty: 30 5RF Rx Instructions: start taking every day ferrous gluconate 324 mg (37.5 mg iron) tablet 324 mg PO DAILY Qty: 90 2RF Rx Instructions: start taking daily, with food or juice nortriptyline 10 mg capsule 10 mg PO BEDTIME Qty: 30 1RF ondansetron 8 mg tablet,disintegrating 8 mg PO Q8H PRN (Reason: nausea and vomiting) Qty: 30 1RF zolmitriptan [Zomig] 5 mg tablet See Rx Instructions PO .COMPLEX Qty: 10 1RF Rx Instructions: take 1 tab at onset of headache; if no relief, may repeat 1 tab after at least 2 hrs; max = 2 tabs/24 hrs PO prednisone 20 mg tablet 20 mg PO DAILY Qty: 7 0RF Rx Instructions: take for one week oxycodone 10 mg tablet 10 mg PO Q8H PRN (Reason: pain) Qty: 90 0RF hydromorphone 2 mg tablet 2 mg PO BEDTIME PRN (Reason: pain) Qty: 30 0RF Rx Instructions: May refill on Dec 02, 2023 potassium chloride 20 mEq tablet extended release 20 meq PO BID Qty: 10 0RF valacyclovir 1 gram tablet 1,000 mg PO TID Qty: 30 0RF meclizine 25 mg tablet 25 mg PO TID PRN (Reason: dizziness) Qty: 10 0RF lidocaine 5 % adhesive patch,medicated 1 patch topical DAILY Qty: 15 0RF Rx Instructions: leave on most painful area for up to 12 hrs ondansetron HCl 4 mg tablet 4 mg PO Q6H PRN (Reason: nausea and vomiting) Qty: 10 0RF naloxone [Narcan] 4 mg/actuation spray,non-aerosol 1 spray intranasal Q2M Qty: 2 0RF Rx Instructions: spray 1 dose into ONE nostril; alternate nostrils w each dose until help arrives Disabled Parking Permit 1 1 % SEEINSTR Rx Instructions: Valid for 5 years amlodipine 5 mg tablet 5 mg PO DAILY Patient Comments: pt received dose in hospital 11/10/19 early AM admit to hydrochlorothiazide 25 mg tablet 12.5 mg PO QAM ipratropium-albuterol 0.5 mg-3 mg(2.5 mg base)/3 mL solution for nebulization 3 ml inhalation Q6H PRN (Reason: shortness of breath or wheezing) Qty: 90 0RF Referrals: Edilberto Snell, [Primary Care Provider] - Stand Alone Forms: Patient Portal/API/Survey
[2024-08-18 09:51] LABS: Add Manual Diff / Slide Review NO; Basophils Absolute Auto 100 /uL (0-100); Basophils Percent Auto 0.6 % (0-2); Eosinophils Absolute Auto 200 /uL (0-450); Eosinophils Percent Auto 1.8 % (2-4); Hematocrit 36.2 % (41-53); Lymphocytes Absolute Auto 1000 /uL (1100-4500); Lymphocytes Percent Auto 9.9 % (25-40); Mean Corpuscular HGB Conc 33.1 % (30-36); Mean Corpuscular Hemoglobin 28.1 PG (26-34); Mean Corpuscular Volume 84.9 fL (80-100); Monocytes Absolute Auto 1200 /uL (0-900); Monocytes Percent Auto 11.7 % (3-14); Neutrophils Absolute Auto 7900 /uL (1500-7000); Platelet Count 217 X10^3/uL (150-400); Red Blood Cell Count 4.27 X10^6/uL (4.5-5.9); Red Cell Distribution Width 16.5 % (11.6-14.8); White Blood Cell Count 10.4 X10^3/uL (4.5-11.0)
[2024-08-18 09:57] LABS: Prothrombin Time 11.5 SECONDS (9.4-12.5)
[2024-08-18 10:00] LABS: PTT Partial Thromboplastin Tim 30 SECONDS (25.1-36.5)
[2024-08-18 10:04] LABS: Alanine Aminotransferase 19 IU/L (<50); Albumin 4.4 g/dL (3.5-5.0); Albumin Globulin Ratio 1.4 (1.0-2.8); Alkaline Phosphatase 73 U/L (38-126); Aspartate Aminotransferase 30 IU/L (17-59); BUN Creatinine Ratio 15.5 (6-22); Bilirubin Total 0.6 mg/dL (0.2-1.3); Blood Urea Nitrogen 17 mg/dL (9-20); Calcium 8.6 mg/dL (8.4-10.2); Carbon Dioxide 25 mmol/L (22-32); Chloride 101 mmol/L (98-107); Creatine Kinase 113 U/L (55-170); Estimated Glomerular Filt Rate > 60 mL/min (>60); Globulin 3.1 g/dL (1.7-4.1); Glucose 102 mg/dL (80-110); Lipase 38 U/L (23-300); Magnesium 1.7 mg/dL (1.6-2.3); Sodium 134 mmol/L (137-145); Total Protein 7.5 g/dL (6.3-8.2)
[2024-08-18] MEDS: ASPIRIN 81 MG CHEW TAB 324 MG PO (10:12)
[2024-08-18 10:15] LABS: Troponin I 0.019 ng/mL (0.01-0.034)
--- NOTE | 2024-08-18 10:44 | DI.CT.S_ITS ---
PROCEDURE: CT ANGIO CHEST ABDOMEN PELVIS INDICATIONS: chest/epigastric pain, radiates to back, htn TECHNIQUE: Precontrast 5 mm thick sections acquired from the lung apices to the iliac crests. After the administration of intravenous contrast, 2.5 mm thick sections again acquired from the lung apices to the iliac crests. Maximum intensity projection (MIP) oblique sagittal and coronal reformats were then acquired. For radiation dose reduction, the following was used: automated exposure control. COMPARISON: [facility], CT, CT CHEST ABD PEL W CON, 02/02/2024, 1:50. [facility], CT, CT ABDOMEN PELVIS W CON, 05/21/2024, 10:38. FINDINGS: Image quality: Diagnostic. AORTA and its attachments: Ascending and descending thoracic aorta and abdominal aorta are of normal caliber without aneurysm or dissection or significant stenosis. Classic three-vessel arch anatomy. Great vessel origins are widely patent. SMA, celiac, and ANABELLA are widely patent. Bilateral common iliacs and external iliacs are widely patent. Common femorals are widely patent. Pulmonary tree: Normal caliber. No pulmonary emboli. CHEST: Lower Neck: No enlarged lymph nodes. Thyroid: No thyroid nodules which require sonographic evaluation. Axillae: No enlarged lymph nodes. Chest Wall: Unremarkable. Lungs and Pleura: No pneumothorax or pleural effusions. No consolidation or suspicious nodules. Multiple calcified granulomata bilaterally. In it the is a the Heart: Heart size is normal. No pericardial effusion. Thoracic Vessels: Pulmonary arteries demonstrate normal size. Mediastinum and Patt: No enlarged lymph nodes. Esophagus: No wall thickening. No hiatal hernia. ABDOMEN: Liver: No solid mass. Gallbladder: Surgically absent. Biliary ducts: No biliary dilation. Pancreas: No ductal dilation. Spleen: Size is within normal limits. Adrenal Glands: No adrenal nodules. Kidneys and Ureters: No hydronephrosis. No solid mass. No complex renal cystic lesion which requires follow up. Stomach and Bowel: Normal colonic caliber, without significant wall thickening. Peritoneum: No abnormal intraperitoneal fluid. No free air. Ventral Wall: No hernia. Abdominal Nodes: No retroperitoneal or mesenteric adenopathy by size criteria. Vessels: Inferior vena cava is normal in size. PELVIS: Pelvic Organs: Prostate is surgically absent. Penile prosthesis.. Bladder: Unremarkable. Pelvic Nodes: No enlarged lymph nodes. Miscellaneous: No inguinal hernias are seen. Bones: Total left shoulder arthroplasty. Lumbar posterior decompression and posterior lateral la and pedicle screw fixation. Remote ORIF of the medial right iliac and the symphysis pubis. Lumbar degenerative change. No lytic or blastic bony lesions. IMPRESSION: 1. Unremarkable thoracic and abdominal aorta. 2. No pulmonary emboli. 3. No acute process noted in the chest, abdomen, and pelvis. 4. Chronic granulomatous disease. 5. Remote cholecystectomy and prostatectomy. Dictated by: Manuel Ly M.D. on 08/18/2024 at 11:34 Approved by: Manuel Ly M.D. on 08/18/2024 at 11:44
[2024-08-18 10:46] LABS: HEMOLYSIS 83 (0-50); NT-proBNP (BNP-Adult 18+) 603 pg/mL (<450)
[2024-08-18] MEDS: NITROGLYCERIN 0.4 MG SL TAB SL (11:36)
--- NOTE | 2024-08-18 11:50 | EKG_ITS ---
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
[2024-08-18 12:26] LABS: Troponin I 0.018 ng/mL (0.01-0.034)
[2024-08-18] MEDS: OXYCODONE IR 5 MG TABLET 10 MG PO (13:11)
--- NOTE | 2024-08-18 13:19 | PC.NURSE ---
Chest pain resolved at this time
== END 2024-08-18 13:20 | disposition home or self-care (01) ==
PROVIDERS: Emergency Provider Emergency Medicine; PCP Family Medicine
DX: R07.9 Chest pain, unspecified (principal); I10 Essential (primary) hypertension; R11.0 Nausea; R10.13 Epigastric pain
CPT/HCPCS: 36415; 71045; 71275; 74174; 80053; 82550; 83690; 83735; 83880; 84484; 85025; 85610; 85730; 93005; 93010; 99284; Q9967

== ENCOUNTER 2024-09-24 17:12 | Emergency (ER) | payer MEDICARE, OTHER, SELFPAY ==
[2024-02-02 03:27] VITALS: BMI 29.4
[2024-09-24 17:22] VITALS: BP 140/86; PULSE 85; RESP 18; TEMP 36.9; O2SAT 95; BMI 27.2
--- NOTE | 2024-09-24 18:20 | ED.BACK ---
HPI - Back Pain/Injury General Chief Complaint: Back Pain/Injury Stated Complaint: back px Time Seen by Provider: 09/24/24 18:20 Source: patient History of Present Illness HPI Narrative: 78-year-old male with history of chronic back pain, multiple prior remote back surgeries, takes chronic oxycodone for this pain, states that he had a missed step couple of days ago, wrenched his back, complains of worse pain in the left lumbar area. He is able to walk around, drove himself to the hospital. No incontinence of urine or stool. No perineal area numbness. No weakness to legs, able to ambulate and operate his vehicle. When asked he states that he has had improvement if symptoms in the past with muscle relaxants, and steroids. Related Data Home Medications Medication Instructions Recorded Confirmed Disabled Parking Permit 1 % SEEINSTR 11/08/20 08/17/24 amlodipine 5 mg tablet 5 mg PO DAILY 11/08/22 08/17/24 hydrochlorothiazide 25 mg tablet 12.5 mg PO QAM 11/15/22 08/17/24 Previous Rx's Medication Instructions Recorded albuterol sulfate 2.5 mg/3 mL 2.5 mg (3 mL) continuous 10/24/22 (0.083 %) solution for nebulization nebulization Q6HP PRN shortness of breath or wheezing #360 mL albuterol sulfate 90 mcg/actuation 1 inh inhalation Q4-6H PRN 12/27/22 aerosol inhaler shortness of breath #18 grams omeprazole 40 mg capsule,delayed 40 mg PO DAILY #90 caps 01/01/23 release potassium chloride 20 mEq 20 meq PO BID #10 tabs 02/26/23 tablet,extended release ipratropium 0.5 mg-albuterol 3 mg 3 ml inhalation Q6H PRN shortness 03/19/23 (2.5 mg base)/3 mL nebulization of breath or wheezing #90 mL soln valacyclovir 1 gram tablet 1,000 mg PO TID #30 tabs 09/02/23 ferrous gluconate 324 mg (37.5 mg 324 mg PO DAILY #90 tabs 10/22/23 iron) tablet sulfasalazine 500 mg tablet 1,000 mg (2 x 500 mg) PO BID #180 11/28/23 tabs ascorbic acid (vitamin C) 500 mg 500 mg PO DAILY #90 tabs 12/13/23 tablet cholecalciferol (vitamin D3) 1,250 1,250 mcg PO QWEEK #12 caps 12/13/23 mcg (50,000 unit) capsule nortriptyline 10 mg capsule 10 mg PO BEDTIME #30 caps 12/17/23 zolmitriptan 5 mg tablet (Zomig) See Rx Instructions PO .COMPLEX 12/17/23 #10 tabs meclizine 25 mg tablet 25 mg PO TID PRN dizziness #10 tabs 01/23/24 mecobalamin (vitamin B12) 1,000 1,000 mcg PO DAILY #90 tabs 02/11/24 mcg chewable tablet (B12 Active) ipratropium bromide 21 mcg (0.03 2 spray intranasal BID PRN 03/05/24 %) nasal spray Rhinorrhea #30 mL fluoxetine 10 mg capsule See Rx Instructions .Route 04/20/24 .COMPLEX #90 caps fluoxetine 20 mg capsule 20 mg PO DAILY #90 caps 04/20/24 metoprolol succinate 100 mg 100 mg PO DAILY #90 tabs 04/20/24 tablet,extended release 24 hr lidocaine 5 % topical patch 1 patch topical DAILY #15 ea 05/21/24 prednisone 5 mg tablet 5 mg PO DAILY #30 tabs 06/22/24 naloxone 4 mg/actuation nasal 1 spray intranasal Q2M #2 ea 08/05/24 spray (Narcan) ondansetron HCl 4 mg tablet 4 mg PO Q6H PRN nausea and 08/05/24 vomiting #10 tabs methocarbamol 750 mg tablet 750 mg PO QID 30 days #120 tabs 08/17/24 aspirin 81 mg tablet,delayed 81 mg PO DAILY #30 tabs 08/18/24 release (Enteric Coated Aspirin) nitroglycerin 0.4 mg sublingual 0.4 mg sublingual Q5M PRN chest 08/18/24 tablet pain #10 tabs duloxetine 30 mg capsule,delayed 30 mg PO DAILY #30 caps 09/15/24 release (Cymbalta) prednisone 20 mg tablet 40 mg (2 x 20 mg) PO DAILY #14 tabs 09/15/24 hydromorphone 2 mg tablet 2 mg PO BEDTIME PRN pain #30 tabs 09/17/24 oxycodone 10 mg tablet 10 mg PO Q8H PRN pain #90 tabs 09/17/24 methocarbamol 500 mg tablet 500 mg PO TID 7 days #21 tabs 09/24/24 prednisone 20 mg tablet 40 mg (2 x 20 mg) PO DAILY 5 days 09/24/24 #10 tabs Allergies Allergy/AdvReac Type Severity Reaction Status Date / Time cyclobenzaprine Allergy Severe Dizziness, Verified 09/24/24 17:24 [From Flexeril] I bounce off ag ibuprofen AdvReac Intermediate Redness of Verified 09/24/24 17:24 Skin acetaminophen [ACETAMINOPHEN] AdvReac Unknown Can't take Verified 09/24/24 17:24 r/t Hep C; upset stomach Review of Systems Review of Systems Narrative: See HPI Patient History Medical History (Updated 09/24/24 @ 18:33 by Marlon Anderson MD) Bronchitis Impaired cognition Left knee pain Chronic diarrhea Eustachian tube dysfunction Seasonal allergic rhinitis Dyspepsia Anemia Tinea Abdominal wall pain in both lower quadrants Constipation Aftercare following left shoulder joint replacement surgery Preoperative clearance Left lateral epicondylitis Adhesive capsulitis Right wrist sprain Oral lesion Colles' fracture Right wrist pain Left shoulder strain Anxiety Fibromyalgia Sinus drainage Chronic ankle pain, bilateral Rheumatoid arthritis Acute exacerbation of chronic bronchitis Foraminal stenosis of lumbar region Peripheral neuropathy Pneumonia (~2018) Impotence (Unknown) Restless leg syndrome (Unknown) Arthritis (Unknown) Chronic pain syndrome (Unknown) Kidney stones (Unknown) Prostate cancer (Unknown) Skin cancer (Unknown) Hepatitis C (Unknown) Hypertension (Unknown) Migraines (Unknown) PTSD (post-traumatic stress disorder) (Unknown) Depression (Unknown) Surgical History S/P lumbar fusion History of lumbar fusion (05/10/22) History of ankle surgery 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 Social History marital status: household members: spouse lives independently: Yes occupational status: previously employed Smoking Status: Former smoker Tobacco: How many years used: 20 quit status: has quit before alcohol intake: former substance use type: former substance user and marijuana Smoking Status: Former smoker tobacco type: cigarettes alcohol intake frequency: holidays/special occasions only Exam Narrative Exam Narrative: GENERAL: Well-developed patient, in mild distress. HEAD: Atraumatic. Normocephalic. EYES: Pupils equal round and reactive. Extraocular motions intact. No scleral icterus. No injection or drainage. ENT: Nose without bleeding, purulent drainage. Throat without erythema, tonsillar hypertrophy or exudate. Airway patent. NECK: Trachea midline. Non tender CARDIOVASCULAR: Regular rate and rhythm without murmurs, gallops, or rubs. RESPIRATORY: Clear to auscultation. Breath sounds equal bilaterally. No wheezes, rales, or rhonchi. GASTROINTESTINAL: Abdomen soft, non-tender, nondistended. EXTREMITIES: No edema or joint tenderness. BACK: Midline well-healed lumbar scar, minimal tenderness inconsistent left mid lumbar paraspinal musculature. NEURO: AOx3. Motor functions grossly nonfocal. Straight leg raise left 30?, fair effort. Straight leg raise right leg 45?. SKIN: No rash or erythema of visible areas Initial Vital Signs Initial Vital Signs: Vital Signs Temperature 98.4 F 09/24/24 17:22 Pulse Rate 85 09/24/24 17:22 Respiratory Rate 18 09/24/24 17:22 Blood Pressure 140/86 09/24/24 17:22 Pulse Oximetry 95 09/24/24 17:22 Oxygen Delivery Method Room Air 09/24/24 17:22 Course Orders Ordered: Discontinued Medications Ketorolac Tromethamine (Ketorolac 30 Mg/Ml Vial) 30 mg IM NOW ONE Stop: 09/24/24 18:25 Last Admin: 09/24/24 18:33 Dose: 30 mg Documented By: NBA Methocarbamol (Methocarbamol 500 Mg Tablet) 500 mg PO NOW ONE Stop: 09/24/24 18:25 Last Admin: 09/24/24 18:33 Dose: 500 mg Documented By: NBA Prednisone (Prednisone 20 Mg Tablet) 40 mg PO NOW ONE Stop: 09/24/24 18:26 Last Admin: 09/24/24 18:33 Dose: 40 mg Documented By: NBA Vital Signs Vital signs: Vital Signs - 8 hr 09/24/24 17:22 09/24/24 18:46 Temperature 98.4 F Pulse Rate 85 78 Respiratory Rate 18 16 Blood Pressure 140/86 Pulse Oximetry 95 95 Oxygen Delivery Method Room Air Room Air MDM - Back Pain/Injury MDM Narrative Medical decision making narrative: 78-year-old male with numerous back surgeries, chronic back pain, taking oxycodone, recent back strain symptoms left-sided, equivocal exam regarding tenderness left paraspinal musculature, we discussed non opiate therapies in the emergency department. We will give IM Toradol, oral Robaxin, oral prednisone. Prescriptions for further Robaxin and prednisone sent to his pharmacy. Continue his chronic oxycodone, he has current supply. Discharged home, follow up with PCP advised. Return precautions discussed. Discharge Plan Departure Patient Disposition: Home Clinical Impression: Lumbar strain, Chronic low back pain Instructions: DI for Back Strain or Sprain Activity Restrictions/Additional Instructions: Chronic low back pain, prior remote surgeries, taking oxycodone by your chronic pain team. Recent back strain symptoms left-sided, mid left lumbar paraspinal muscle tenderness, well-healed old scars noted on examination. You were able to drive here with your own vehicle and had been walking around. Intramuscular injection Toradol given, oral dose Robaxin/methocarbamol muscle relaxant given, oral dose prednisone steroid given. Further doses of methocarbamol muscle relaxant and prednisone steroid sent to your pharmacy to use. Consider use of anti-inflammatory medicine such as ibuprofen or naproxen [id number], if not already taking them. Recheck with your chronic pain management care team early next week. Return to this/nearest emergency department for any change worsening symptoms or any concerns prior Prescriptions: New prednisone 20 mg tablet 40 mg PO DAILY 5 Days Qty: 10 0RF methocarbamol 500 mg tablet 500 mg PO TID 7 Days Qty: 21 0RF No Action prednisone 20 mg tablet 40 mg PO DAILY Qty: 14 0RF Rx Instructions: Take 5-7 days duloxetine [Cymbalta] 30 mg capsule,delayed release(DR/EC) 30 mg PO DAILY Qty: 30 1RF ipratropium bromide 21 mcg (0.03 %) spray,non-aerosol 2 spray intranasal BID PRN (Reason: Rhinorrhea) Qty: 30 0RF Rx Instructions: administer into each nostril albuterol sulfate 2.5 mg /3 mL (0.083 %) solution for nebulization 2.5 mg Continuous Nebulization Q6HP PRN (Reason: shortness of breath or wheezing) Qty: 360 2RF albuterol sulfate 90 mcg/actuation HFA aerosol inhaler 1 inh INHALATION Q4-6H PRN (Reason: shortness of breath) Qty: 18 4RF omeprazole 40 mg capsule,delayed release(DR/EC) 40 mg PO DAILY Qty: 90 3RF Rx Instructions: take 1 capsule by mouth once daily sulfasalazine 500 mg tablet 1,000 mg PO BID Qty: 180 1RF cholecalciferol (vitamin D3) 1,250 mcg (50,000 unit) capsule 1,250 mcg PO QWEEK Qty: 12 0RF ascorbic acid (vitamin C) 500 mg tablet 500 mg PO DAILY Qty: 90 0RF Rx Instructions: Take with iron mecobalamin (vitamin B12) [B12 Active] 1,000 mcg tablet,chewable 1,000 mcg PO DAILY Qty: 90 3RF metoprolol succinate 100 mg tablet extended release 24 hr 100 mg PO DAILY Qty: 90 1RF fluoxetine 20 mg capsule 20 mg PO DAILY Qty: 90 3RF Rx Instructions: Take with 10 mg to complete 30 mg dose fluoxetine 10 mg capsule See Rx Instructions .ROUTE .COMPLEX Qty: 90 3RF Dose Instruction: take 1 capsule by mouth once daily WITH 20MG CAP DAILY TOTAL 30 MG DAILY Rx Instructions: take 1 capsule by mouth once daily WITH 20MG CAP DAILY TOTAL 30 MG DAILY methocarbamol 750 mg tablet 750 mg PO QID 30 Days Qty: 120 2RF hydromorphone 2 mg tablet 2 mg PO BEDTIME PRN (Reason: pain) Qty: 30 0RF Rx Instructions: May refill on Dec 02, 2023 oxycodone 10 mg tablet 10 mg PO Q8H PRN (Reason: pain) Qty: 90 0RF prednisone 5 mg tablet 5 mg PO DAILY Qty: 30 5RF Rx Instructions: start taking every day ferrous gluconate 324 mg (37.5 mg iron) tablet 324 mg PO DAILY Qty: 90 2RF Rx Instructions: start taking daily, with food or juice nortriptyline 10 mg capsule 10 mg PO BEDTIME Qty: 30 1RF zolmitriptan [Zomig] 5 mg tablet See Rx Instructions PO .COMPLEX Qty: 10 1RF Rx Instructions: take 1 tab at onset of headache; if no relief, may repeat 1 tab after at least 2 hrs; max = 2 tabs/24 hrs PO potassium chloride 20 mEq tablet extended release 20 meq PO BID Qty: 10 0RF valacyclovir 1 gram tablet 1,000 mg PO TID Qty: 30 0RF meclizine 25 mg tablet 25 mg PO TID PRN (Reason: dizziness) Qty: 10 0RF lidocaine 5 % adhesive patch,medicated 1 patch topical DAILY Qty: 15 0RF Rx Instructions: leave on most painful area for up to 12 hrs ondansetron HCl 4 mg tablet 4 mg PO Q6H PRN (Reason: nausea and vomiting) Qty: 10 0RF naloxone [Narcan] 4 mg/actuation spray,non-aerosol 1 spray intranasal Q2M Qty: 2 0RF Rx Instructions: spray 1 dose into ONE nostril; alternate nostrils w each dose until help arrives Disabled Parking Permit 1 1 % SEEINSTR Rx Instructions: Valid for 5 years amlodipine 5 mg tablet 5 mg PO DAILY Patient Comments: pt received dose in hospital 11/10/19 early AM admit to AC hydrochlorothiazide 25 mg tablet 12.5 mg PO QAM ipratropium-albuterol 0.5 mg-3 mg(2.5 mg base)/3 mL solution for nebulization 3 ml inhalation Q6H PRN (Reason: shortness of breath or wheezing) Qty: 90 0RF aspirin [Enteric Coated Aspirin] 81 mg tablet,delayed release (DR/EC) 81 mg PO DAILY Qty: 30 0RF nitroglycerin 0.4 mg tablet, sublingual 0.4 mg sublingual Q5M PRN (Reason: chest pain) Qty: 10 0RF Rx Instructions: do not exceed 3 doses per episode Referrals: Edilberto Snell DO [Primary Care Provider] - Stand Alone Forms: Patient Portal/API/Survey
[2024-09-24] MEDS: predniSONE 20 MG TABLET 40 MG PO (18:33)
[2024-09-24] MEDS: methocarbamoL 500 MG TABLET PO (18:33)
[2024-09-24] MEDS: KETOROLAC 30 MG/ML VIAL IM (18:33)
[2024-09-24 18:46] VITALS: PULSE 78; RESP 16; O2SAT 95
== END 2024-09-24 18:47 | disposition home or self-care (01) ==
PROVIDERS: Emergency Provider Emergency Medicine; PCP Family Medicine
DX: S39.012A Strain of muscle, fascia and tendon of lower back, initial encounter (principal); X58.XXXA Exposure to other specified factors, initial encounter
CPT/HCPCS: 96372; 99283; 99284; J1885

== ENCOUNTER 2024-10-01 13:08 | Emergency (ER) | payer MEDICARE, OTHER, SELFPAY ==
[2024-02-02 03:27] VITALS: BMI 29.4
[2024-10-01 13:16] VITALS: BP 127/65; PULSE 85; RESP 16; TEMP 36.7; O2SAT 96; BMI 29.7
--- NOTE | 2024-10-01 13:33 | DI.RAD.S_ITS ---
PROCEDURE: XR KNEE LT 3V INDICATIONS: fall pain TECHNIQUE: 3 views of the knee were acquired. COMPARISON: [facility], CR, XR KNEE LT 3V, 01/18/2024, 18:37. FINDINGS: Bones: No fractures or dislocations. No suspicious bony lesions. Small tricompartment osteophytes. Soft tissues: No joint effusion. No suspicious soft tissue calcifications. IMPRESSION: No evidence acute bony abnormality. Mild degenerative change. If clinical suspicion and/or symptoms persist, further assessment with repeat plain films, or advanced imaging (e.g., CT, MRI, or bone scan) may be helpful for further assessment. Dictated by: Manuel Ly M.D. on 10/01/2024 at 15:28 Approved by: Manuel Ly M.D. on 10/01/2024 at 15:30
--- NOTE | 2024-10-01 14:08 | ED.FALL ---
HPI - Fall General Chief Complaint: Fall Stated Complaint: fall Time Seen by Provider: 10/01/24 13:56 Source: patient Mode of arrival: Wheelchair History of Present Illness HPI Narrative: This is a 78-year-old male presents emergency department due to Related Data Home Medications Medication Instructions Recorded Confirmed Disabled Parking Permit 1 % SEEINSTR 11/08/20 09/29/24 amlodipine 5 mg tablet 5 mg PO DAILY 11/08/22 09/29/24 hydrochlorothiazide 25 mg tablet 12.5 mg PO QAM 11/15/22 09/29/24 Previous Rx's Medication Instructions Recorded albuterol sulfate 2.5 mg/3 mL 2.5 mg (3 mL) continuous 10/24/22 (0.083 %) solution for nebulization nebulization Q6HP PRN shortness of breath or wheezing #360 mL albuterol sulfate 90 mcg/actuation 1 inh inhalation Q4-6H PRN 12/27/22 aerosol inhaler shortness of breath #18 grams omeprazole 40 mg capsule,delayed 40 mg PO DAILY #90 caps 01/01/23 release potassium chloride 20 mEq 20 meq PO BID #10 tabs 02/26/23 tablet,extended release ipratropium 0.5 mg-albuterol 3 mg 3 ml inhalation Q6H PRN shortness 03/19/23 (2.5 mg base)/3 mL nebulization of breath or wheezing #90 mL soln valacyclovir 1 gram tablet 1,000 mg PO TID #30 tabs 09/02/23 ferrous gluconate 324 mg (37.5 mg 324 mg PO DAILY #90 tabs 10/22/23 iron) tablet sulfasalazine 500 mg tablet 1,000 mg (2 x 500 mg) PO BID #180 11/28/23 tabs ascorbic acid (vitamin C) 500 mg 500 mg PO DAILY #90 tabs 12/13/23 tablet cholecalciferol (vitamin D3) 1,250 1,250 mcg PO QWEEK #12 caps 12/13/23 mcg (50,000 unit) capsule nortriptyline 10 mg capsule 10 mg PO BEDTIME #30 caps 12/17/23 zolmitriptan 5 mg tablet (Zomig) See Rx Instructions PO .COMPLEX 12/17/23 #10 tabs meclizine 25 mg tablet 25 mg PO TID PRN dizziness #10 tabs 01/23/24 mecobalamin (vitamin B12) 1,000 1,000 mcg PO DAILY #90 tabs 02/11/24 mcg chewable tablet (B12 Active) ipratropium bromide 21 mcg (0.03 2 spray intranasal BID PRN 03/05/24 %) nasal spray Rhinorrhea #30 mL fluoxetine 10 mg capsule See Rx Instructions .Route 04/20/24 .COMPLEX #90 caps fluoxetine 20 mg capsule 20 mg PO DAILY #90 caps 04/20/24 metoprolol succinate 100 mg 100 mg PO DAILY #90 tabs 04/20/24 tablet,extended release 24 hr prednisone 5 mg tablet 5 mg PO DAILY #30 tabs 06/22/24 naloxone 4 mg/actuation nasal 1 spray intranasal Q2M #2 ea 08/05/24 spray (Narcan) ondansetron HCl 4 mg tablet 4 mg PO Q6H PRN nausea and 08/05/24 vomiting #10 tabs methocarbamol 750 mg tablet 750 mg PO QID 30 days #120 tabs 08/17/24 aspirin 81 mg tablet,delayed 81 mg PO DAILY #30 tabs 08/18/24 release (Enteric Coated Aspirin) nitroglycerin 0.4 mg sublingual 0.4 mg sublingual Q5M PRN chest 08/18/24 tablet pain #10 tabs duloxetine 30 mg capsule,delayed 30 mg PO DAILY #30 caps 09/15/24 release (Cymbalta) prednisone 20 mg tablet 40 mg (2 x 20 mg) PO DAILY #14 tabs 09/15/24 hydromorphone 2 mg tablet 2 mg PO BEDTIME PRN pain #30 tabs 09/17/24 oxycodone 10 mg tablet 10 mg PO Q8H PRN pain #90 tabs 09/17/24 lidocaine 5 % topical patch 1 patch topical DAILY #15 ea 09/29/24 Allergies Allergy/AdvReac Type Severity Reaction Status Date / Time cyclobenzaprine Allergy Severe Dizziness, Verified 09/29/24 11:33 [From Flexeril] I bounce off ag ibuprofen AdvReac Intermediate Redness of Verified 09/29/24 11:33 Skin acetaminophen [ACETAMINOPHEN] AdvReac Unknown Can't take Verified 09/29/24 11:33 r/t Hep C; upset stomach Review of Systems Review of Systems Narrative: GENERAL: Denies chills, fatigue, malaise, fever, sweats. HEENT: Denies sinus pain, ear pain, sore throat, difficulty swallowing, dizziness. RESPIRATORY: Denies dyspnea, cough, wheezing, hemoptysis, sputum. CARDIOVASCULAR: Denies chest pain, palpitations, orthopnea, edema, GASTROINTESTINAL: Denies nausea, vomiting, abdominal pain, diarrhea, constipation, melena. : Denies dysuria, frequency, incontinence, hematuria, urinary retention. MUSCULOSKELETAL: denies weakness, joint pain, or bony pain SKIN: Denies rash, skin lesions, or other NEUROLOGIC: Denies weakness, headache, numbness, change in speech, confusion, seizures, incoordination. PSYCHIATRIC: No concerning psychosocial issues. 12 point review of systems is negative except for those stated above Patient History Medical History Hyponatremia Bronchitis Impaired cognition Left knee pain Chronic diarrhea Eustachian tube dysfunction Seasonal allergic rhinitis Dyspepsia Anemia Tinea Abdominal wall pain in both lower quadrants Constipation Aftercare following left shoulder joint replacement surgery Preoperative clearance Left lateral epicondylitis Adhesive capsulitis Right wrist sprain Oral lesion Colles' fracture Right wrist pain Left shoulder strain Anxiety Fibromyalgia Sinus drainage Chronic ankle pain, bilateral Rheumatoid arthritis Acute exacerbation of chronic bronchitis Foraminal stenosis of lumbar region Peripheral neuropathy Pneumonia (~2018) Impotence (Unknown) Restless leg syndrome (Unknown) Arthritis (Unknown) Chronic pain syndrome (Unknown) Kidney stones (Unknown) Prostate cancer (Unknown) Skin cancer (Unknown) Hepatitis C (Unknown) Hypertension (Unknown) Migraines (Unknown) PTSD (post-traumatic stress disorder) (Unknown) Depression (Unknown) Surgical History S/P lumbar fusion History of lumbar fusion (05/10/22) History of ankle surgery 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 Social History marital status: household members: spouse lives independently: Yes occupational status: previously employed Smoking Status: Former smoker Tobacco: How many years used: 20 quit status: has quit before alcohol intake: former substance use type: former substance user and marijuana Smoking Status: Former smoker tobacco type: cigarettes alcohol intake frequency: holidays/special occasions only Exam Narrative Exam Narrative: GENERAL: Well-developed patient, in mild distress. HEAD: Atraumatic. Normocephalic. EYES: Pupils equal round and reactive. Extraocular motions intact. No scleral icterus. No injection or drainage. ENT: Nose without bleeding, purulent drainage. Throat without erythema, tonsillar hypertrophy or exudate. Airway patent. NECK: Trachea midline. Non tender EXTREMITIES: No edema or joint tenderness. NEURO: AOx3. SKIN: No rash or erythema of visible areas Initial Vital Signs Initial Vital Signs: Vital Signs Temperature 98.0 F 10/01/24 13:16 Pulse Rate 85 10/01/24 13:16 Respiratory Rate 16 10/01/24 13:16 Blood Pressure 127/65 10/01/24 13:16 Pulse Oximetry 96 10/01/24 13:16 Oxygen Delivery Method Room Air 10/01/24 13:16 Course Orders Ordered: ED Orders 10/01/24 13:33 XR knee LT 3V Stat Vital Signs Vital signs: Vital Signs - 8 hr 10/01/24 13:16 Temperature 98.0 F Pulse Rate 85 Respiratory Rate 16 Blood Pressure 127/65 Pulse Oximetry 96 Oxygen Delivery Method Room Air MDM - Fall MDM Narrative Medical decision making narrative: ED course: [ ] CC: [ ] Complicating co-morbidities: [ ] Data collected from: Previous notes Medical records reviewed: Patient was last seen in this emergency department 7 days ago due to chronic lower back pain. Takes chronic oxycodone for the pain. States ice misstep and had worsening pain in his lumbar area. Extensive medical history, history of fibromyalgia, rheumatoid arthritis, arthritis, chronic pain syndrome. History of arthroplasty right knee. Patient was has been here 4 to 5 times a month for the last 12 months. Differential considered, but not limited to: [ ] Exam documented above, pertinent findings include: [ ] Lab Test results independently reviewed as above. Pertinent findings: [ ] Imaging studies independently reviewed: [ ] Scores Used: None MIPS Elements: None Consultations: None Treatments: [ ] Re-evaluations: [ ] Discussion: Discussed plan with the patient was comfortable with the plan Diagnosis: [ ] Disposition: see below, along with detailed discharge instructions that have been reviewed with patient as well as indications for ED re-evaluation and additional outpatient follow up Discharge Plan Departure Prescriptions: No Action prednisone 20 mg tablet 40 mg PO DAILY Qty: 14 0RF Rx Instructions: Take 5-7 days duloxetine [Cymbalta] 30 mg capsule,delayed release(DR/EC) 30 mg PO DAILY Qty: 30 1RF ipratropium bromide 21 mcg (0.03 %) spray,non-aerosol 2 spray intranasal BID PRN (Reason: Rhinorrhea) Qty: 30 0RF Rx Instructions: administer into each nostril albuterol sulfate 2.5 mg /3 mL (0.083 %) solution for nebulization 2.5 mg Continuous Nebulization Q6HP PRN (Reason: shortness of breath or wheezing) Qty: 360 2RF albuterol sulfate 90 mcg/actuation HFA aerosol inhaler 1 inh INHALATION Q4-6H PRN (Reason: shortness of breath) Qty: 18 4RF omeprazole 40 mg capsule,delayed release(DR/EC) 40 mg PO DAILY Qty: 90 3RF Rx Instructions: take 1 capsule by mouth once daily sulfasalazine 500 mg tablet 1,000 mg PO BID Qty: 180 1RF cholecalciferol (vitamin D3) 1,250 mcg (50,000 unit) capsule 1,250 mcg PO QWEEK Qty: 12 0RF ascorbic acid (vitamin C) 500 mg tablet 500 mg PO DAILY Qty: 90 0RF Rx Instructions: Take with iron mecobalamin (vitamin B12) [B12 Active] 1,000 mcg tablet,chewable 1,000 mcg PO DAILY Qty: 90 3RF metoprolol succinate 100 mg tablet extended release 24 hr 100 mg PO DAILY Qty: 90 1RF fluoxetine 20 mg capsule 20 mg PO DAILY Qty: 90 3RF Rx Instructions: Take with 10 mg to complete 30 mg dose fluoxetine 10 mg capsule See Rx Instructions .ROUTE .COMPLEX Qty: 90 3RF Dose Instruction: take 1 capsule by mouth once daily WITH 20MG CAP DAILY TOTAL 30 MG DAILY Rx Instructions: take 1 capsule by mouth once daily WITH 20MG CAP DAILY TOTAL 30 MG DAILY methocarbamol 750 mg tablet 750 mg PO QID 30 Days Qty: 120 2RF hydromorphone 2 mg tablet 2 mg PO BEDTIME PRN (Reason: pain) Qty: 30 0RF Rx Instructions: May refill on Dec 02, 2023 oxycodone 10 mg tablet 10 mg PO Q8H PRN (Reason: pain) Qty: 90 0RF prednisone 5 mg tablet 5 mg PO DAILY Qty: 30 5RF Rx Instructions: start taking every day ferrous gluconate 324 mg (37.5 mg iron) tablet 324 mg PO DAILY Qty: 90 2RF Rx Instructions: start taking daily, with food or juice nortriptyline 10 mg capsule 10 mg PO BEDTIME Qty: 30 1RF zolmitriptan [Zomig] 5 mg tablet See Rx Instructions PO .COMPLEX Qty: 10 1RF Rx Instructions: take 1 tab at onset of headache; if no relief, may repeat 1 tab after at least 2 hrs; max = 2 tabs/24 hrs PO lidocaine 5 % adhesive patch,medicated 1 patch topical DAILY Qty: 15 2RF Rx Instructions: leave on most painful area for up to 12 hrs potassium chloride 20 mEq tablet extended release 20 meq PO BID Qty: 10 0RF valacyclovir 1 gram tablet 1,000 mg PO TID Qty: 30 0RF meclizine 25 mg tablet 25 mg PO TID PRN (Reason: dizziness) Qty: 10 0RF ondansetron HCl 4 mg tablet 4 mg PO Q6H PRN (Reason: nausea and vomiting) Qty: 10 0RF naloxone [Narcan] 4 mg/actuation spray,non-aerosol 1 spray intranasal Q2M Qty: 2 0RF Rx Instructions: spray 1 dose into ONE nostril; alternate nostrils w each dose until help arrives Disabled Parking Permit 1 1 % SEEINSTR Rx Instructions: Valid for 5 years amlodipine 5 mg tablet 5 mg PO DAILY Patient Comments: pt received dose in hospital 11/10/19 early AM admit to hydrochlorothiazide 25 mg tablet 12.5 mg PO QAM ipratropium-albuterol 0.5 mg-3 mg(2.5 mg base)/3 mL solution for nebulization 3 ml inhalation Q6H PRN (Reason: shortness of breath or wheezing) Qty: 90 0RF aspirin [Enteric Coated Aspirin] 81 mg tablet,delayed release (DR/EC) 81 mg PO DAILY Qty: 30 0RF nitroglycerin 0.4 mg tablet, sublingual 0.4 mg sublingual Q5M PRN (Reason: chest pain) Qty: 10 0RF Rx Instructions: do not exceed 3 doses per episode Referrals: Edilberto Snell, [Primary Care Provider] -
== END 2024-10-01 15:15 | disposition left against medical advice (07) ==
PROVIDERS: PCP Family Medicine
DX: M25.562 Pain in left knee (principal)
CPT/HCPCS: 73562; 99281

== ENCOUNTER 2024-10-10 14:20 | Emergency (ER) | payer MEDICARE, OTHER, SELFPAY ==
[2024-02-02 03:27] VITALS: BMI 29.4
[2024-10-10 15:07] VITALS: BP 154/78; PULSE 76; RESP 16; TEMP 36.5; O2SAT 97; BMI 30.5
--- NOTE | 2024-10-10 15:11 | DI.RAD.S_ITS ---
PROCEDURE: XR KNEE LT 3V INDICATIONS: fall TECHNIQUE: 3 views of the knee were acquired. COMPARISON: [facility], , XR KNEE LT 3V, 10/01/2024, 14:26. [facility], CR, XR KNEE LT 3V, 01/18/2024, 18:37. FINDINGS: Bones: Patellar enthesopathy. [id number] arthrosis. No acute displaced fracture. No dislocation. Soft tissues: Possible mild peripatellar soft tissue swelling. IMPRESSION: [id number] arthrosis without acute radiographic abnormality. If there is high concern for occult injury, consider repeat radiography or cross-sectional imaging. Dictated by: Todd Gage M.D. on 10/10/2024 at 15:19 Approved by: Todd Gage M.D. on 10/10/2024 at 15:20
[2024-10-10 18:25] VITALS: BP 189/96; PULSE 74; RESP 18; TEMP 37.6; O2SAT 97
--- NOTE | 2024-10-10 19:06 | PC.NURSE ---
Pt moved to Room 3A area. He independently stood out of wheelchair and walked approximately 5 steps to recliner chair with use of his personal cane. Patient reported pain and weakness in his L knee. Patient now resting in recliner chair and awaiting MD evaluation. XR of L knee was completed while awaiting room in [facility].
--- NOTE | 2024-10-10 19:56 | ED.FALL ---
HPI - Fall General Chief Complaint: Fall Stated Complaint: Fall, knee px, no blood thinners Time Seen by Provider: 10/10/24 19:27 Source: patient Mode of arrival: Wheelchair History of Present Illness HPI Narrative: 78-year-old male. Well known to myself. Has a chronic pain condition. Gets his pain medication from his primary provider. Is here for evaluation of left knee pain. He states he tripped while going up some stairs and landed directly on his left knee. Has a difficulty walking since then. Describes pain the front of his knee. No other injuries from the event. Related Data Home Medications Medication Instructions Recorded Confirmed Disabled Parking Permit 1 % SEEINSTR 11/08/20 09/29/24 amlodipine 5 mg tablet 5 mg PO DAILY 11/08/22 09/29/24 hydrochlorothiazide 25 mg tablet 12.5 mg PO QAM 11/15/22 09/29/24 Previous Rx's Medication Instructions Recorded albuterol sulfate 2.5 mg/3 mL 2.5 mg (3 mL) continuous 10/24/22 (0.083 %) solution for nebulization nebulization Q6HP PRN shortness of breath or wheezing #360 mL albuterol sulfate 90 mcg/actuation 1 inh inhalation Q4-6H PRN 12/27/22 aerosol inhaler shortness of breath #18 grams omeprazole 40 mg capsule,delayed 40 mg PO DAILY #90 caps 01/01/23 release potassium chloride 20 mEq 20 meq PO BID #10 tabs 02/26/23 tablet,extended release ipratropium 0.5 mg-albuterol 3 mg 3 ml inhalation Q6H PRN shortness 03/19/23 (2.5 mg base)/3 mL nebulization of breath or wheezing #90 mL soln valacyclovir 1 gram tablet 1,000 mg PO TID #30 tabs 09/02/23 ferrous gluconate 324 mg (37.5 mg 324 mg PO DAILY #90 tabs 10/22/23 iron) tablet sulfasalazine 500 mg tablet 1,000 mg (2 x 500 mg) PO BID #180 11/28/23 tabs ascorbic acid (vitamin C) 500 mg 500 mg PO DAILY #90 tabs 12/13/23 tablet cholecalciferol (vitamin D3) 1,250 1,250 mcg PO QWEEK #12 caps 12/13/23 mcg (50,000 unit) capsule nortriptyline 10 mg capsule 10 mg PO BEDTIME #30 caps 12/17/23 zolmitriptan 5 mg tablet (Zomig) See Rx Instructions PO .COMPLEX 12/17/23 #10 tabs meclizine 25 mg tablet 25 mg PO TID PRN dizziness #10 tabs 01/23/24 mecobalamin (vitamin B12) 1,000 1,000 mcg PO DAILY #90 tabs 02/11/24 mcg chewable tablet (B12 Active) ipratropium bromide 21 mcg (0.03 2 spray intranasal BID PRN 03/05/24 %) nasal spray Rhinorrhea #30 mL fluoxetine 10 mg capsule See Rx Instructions .Route 04/20/24 .COMPLEX #90 caps fluoxetine 20 mg capsule 20 mg PO DAILY #90 caps 04/20/24 metoprolol succinate 100 mg 100 mg PO DAILY #90 tabs 04/20/24 tablet,extended release 24 hr prednisone 5 mg tablet 5 mg PO DAILY #30 tabs 06/22/24 naloxone 4 mg/actuation nasal 1 spray intranasal Q2M #2 ea 08/05/24 spray (Narcan) ondansetron HCl 4 mg tablet 4 mg PO Q6H PRN nausea and 08/05/24 vomiting #10 tabs methocarbamol 750 mg tablet 750 mg PO QID 30 days #120 tabs 08/17/24 aspirin 81 mg tablet,delayed 81 mg PO DAILY #30 tabs 08/18/24 release (Enteric Coated Aspirin) nitroglycerin 0.4 mg sublingual 0.4 mg sublingual Q5M PRN chest 08/18/24 tablet pain #10 tabs duloxetine 30 mg capsule,delayed 30 mg PO DAILY #30 caps 09/15/24 release (Cymbalta) prednisone 20 mg tablet 40 mg (2 x 20 mg) PO DAILY #14 tabs 09/15/24 hydromorphone 2 mg tablet 2 mg PO BEDTIME PRN pain #30 tabs 09/17/24 oxycodone 10 mg tablet 10 mg PO Q8H PRN pain #90 tabs 09/17/24 lidocaine 5 % topical patch 1 patch topical DAILY #15 ea 09/29/24 Allergies Allergy/AdvReac Type Severity Reaction Status Date / Time cyclobenzaprine Allergy Severe Dizziness, Verified 10/10/24 15:06 [From Flexeril] I bounce off ag ibuprofen AdvReac Intermediate Redness of Verified 10/10/24 15:06 Skin acetaminophen [ACETAMINOPHEN] AdvReac Unknown Can't take Verified 10/10/24 15:06 r/t Hep C; upset stomach Review of Systems Constitutional Constitutional: Reports system reviewed and no additional complaints, except as documented Musculoskeletal Musculoskeletal: Reports system reviewed and no additional complaints, except as documented Integumentary/Breasts Skin/Breast: Reports system reviewed and no additional complaints, except as documented Neurologic Neurologic: Reports system reviewed and no additional complaints, except as documented Patient History Medical History Hyponatremia Bronchitis Impaired cognition Left knee pain Chronic diarrhea Eustachian tube dysfunction Seasonal allergic rhinitis Dyspepsia Anemia Tinea Abdominal wall pain in both lower quadrants Constipation Aftercare following left shoulder joint replacement surgery Preoperative clearance Left lateral epicondylitis Adhesive capsulitis Right wrist sprain Oral lesion Colles' fracture Right wrist pain Left shoulder strain Anxiety Fibromyalgia Sinus drainage Chronic ankle pain, bilateral Rheumatoid arthritis Acute exacerbation of chronic bronchitis Foraminal stenosis of lumbar region Peripheral neuropathy Pneumonia (~2017) Impotence (Unknown) Restless leg syndrome (Unknown) Arthritis (Unknown) Chronic pain syndrome (Unknown) Kidney stones (Unknown) Prostate cancer (Unknown) Skin cancer (Unknown) Hepatitis C (Unknown) Hypertension (Unknown) Migraines (Unknown) PTSD (post-traumatic stress disorder) (Unknown) Depression (Unknown) Surgical History S/P lumbar fusion History of lumbar fusion (05/10/22) History of ankle surgery 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 Social History marital status: household members: spouse lives independently: Yes occupational status: previously employed Smoking Status: Former smoker Tobacco: How many years used: 20 quit status: has quit before alcohol intake: former substance use type: former substance user and marijuana Smoking Status: Former smoker tobacco type: cigarettes alcohol intake frequency: holidays/special occasions only Exam Initial Vital Signs Initial Vital Signs: Vital Signs Temperature 97.7 F 10/10/24 15:07 Pulse Rate 76 10/10/24 15:07 Respiratory Rate 16 10/10/24 15:07 Blood Pressure 154/78 H 10/10/24 15:07 Pulse Oximetry 97 10/10/24 15:07 Oxygen Delivery Method Room Air 10/10/24 15:07 Const General: cooperative, comfortable and No ill appearing Skin General: no rashes or lesions noted Neuro Sensory Exam: no sensory deficits noted Extrem Other: Discomfort with palpation of both the medial and lateral aspect of the anterior knee. Patellar tendon is intact. Quadriceps tendon is intact. Course Orders Ordered: Discontinued Medications Oxycodone HCl (Oxycodone 5 Mg/5 Ml Oral Solution) 10 mg PO NOW ONE Stop: 10/10/24 20:15 Last Admin: 10/10/24 20:34 Dose: 10 mg Documented By: SB Vital Signs Vital signs: Vital Signs - 8 hr 10/10/24 15:07 10/10/24 18:25 Temperature 97.7 F 99.7 F H Pulse Rate 76 74 Respiratory Rate 16 18 Blood Pressure 154/78 H 189/96 H Pulse Oximetry 97 97 Oxygen Delivery Method Room Air Room Air [facility] - Fall Imaging Data Extremity x-ray #1: Radiologist's Impression: PROCEDURE: XR KNEE LT 3V INDICATIONS: fall TECHNIQUE: 3 views of the knee were acquired. COMPARISON: [facility], XR KNEE LT 3V, 10/01/2024, 14:26. [facility], XR KNEE LT 3V, 01/18/2024, 18:37. FINDINGS: Bones: Patellar enthesopathy. [id number] arthrosis. No acute displaced fracture. No dislocation. Soft tissues: Possible mild peripatellar soft tissue swelling. IMPRESSION: [id number] arthrosis without acute radiographic abnormality. If there is high concern for occult injury, consider repeat radiography or cross-sectional imaging. [facility] Narrative Medical decision making narrative: X-ray shows no acute pathology. Exam is benign. He was given 1 dose of pain medication. Ambulated in the emergency department. Advised that the patient needs to follow up with his primary doctor to discuss his chronic pain management. Discharge Plan Departure Patient Disposition: Home Clinical Impression: Acute knee pain Instructions: How To Perform RICE (Rest, Ice, Compress, Elevate) Activity Restrictions/Additional Instructions: Continue to take all of your medications as directed. Contact your primary care doctor for a follow-up. Prescriptions: No Action prednisone 20 mg tablet 40 mg PO DAILY Qty: 14 0RF Rx Instructions: Take 5-7 days duloxetine [Cymbalta] 30 mg capsule,delayed release(DR/EC) 30 mg PO DAILY Qty: 30 1RF ipratropium bromide 21 mcg (0.03 %) spray,non-aerosol 2 spray intranasal BID PRN (Reason: Rhinorrhea) Qty: 30 0RF Rx Instructions: administer into each nostril albuterol sulfate 2.5 mg /3 mL (0.083 %) solution for nebulization 2.5 mg Continuous Nebulization Q6HP PRN (Reason: shortness of breath or wheezing) Qty: 360 2RF albuterol sulfate 90 mcg/actuation HFA aerosol inhaler 1 inh INHALATION Q4-6H PRN (Reason: shortness of breath) Qty: 18 4RF omeprazole 40 mg capsule,delayed release(DR/EC) 40 mg PO DAILY Qty: 90 3RF Rx Instructions: take 1 capsule by mouth once daily sulfasalazine 500 mg tablet 1,000 mg PO BID Qty: 180 1RF cholecalciferol (vitamin D3) 1,250 mcg (50,000 unit) capsule 1,250 mcg PO QWEEK Qty: 12 0RF ascorbic acid (vitamin C) 500 mg tablet 500 mg PO DAILY Qty: 90 0RF Rx Instructions: Take with iron mecobalamin (vitamin B12) [B12 Active] 1,000 mcg tablet,chewable 1,000 mcg PO DAILY Qty: 90 3RF metoprolol succinate 100 mg tablet extended release 24 hr 100 mg PO DAILY Qty: 90 1RF fluoxetine 20 mg capsule 20 mg PO DAILY Qty: 90 3RF Rx Instructions: Take with 10 mg to complete 30 mg dose fluoxetine 10 mg capsule See Rx Instructions .ROUTE .COMPLEX Qty: 90 3RF Dose Instruction: take 1 capsule by mouth once daily WITH 20MG CAP DAILY TOTAL 30 MG DAILY Rx Instructions: take 1 capsule by mouth once daily WITH 20MG CAP DAILY TOTAL 30 MG DAILY methocarbamol 750 mg tablet 750 mg PO QID 30 Days Qty: 120 2RF hydromorphone 2 mg tablet 2 mg PO BEDTIME PRN (Reason: pain) Qty: 30 0RF Rx Instructions: May refill on Dec 02, 2023 oxycodone 10 mg tablet 10 mg PO Q8H PRN (Reason: pain) Qty: 90 0RF prednisone 5 mg tablet 5 mg PO DAILY Qty: 30 5RF Rx Instructions: start taking every day ferrous gluconate 324 mg (37.5 mg iron) tablet 324 mg PO DAILY Qty: 90 2RF Rx Instructions: start taking daily, with food or juice nortriptyline 10 mg capsule 10 mg PO BEDTIME Qty: 30 1RF zolmitriptan [Zomig] 5 mg tablet See Rx Instructions PO .COMPLEX Qty: 10 1RF Rx Instructions: take 1 tab at onset of headache; if no relief, may repeat 1 tab after at least 2 hrs; max = 2 tabs/24 hrs PO lidocaine 5 % adhesive patch,medicated 1 patch topical DAILY Qty: 15 2RF Rx Instructions: leave on most painful area for up to 12 hrs potassium chloride 20 mEq tablet extended release 20 meq PO BID Qty: 10 0RF valacyclovir 1 gram tablet 1,000 mg PO TID Qty: 30 0RF meclizine 25 mg tablet 25 mg PO TID PRN (Reason: dizziness) Qty: 10 0RF ondansetron HCl 4 mg tablet 4 mg PO Q6H PRN (Reason: nausea and vomiting) Qty: 10 0RF naloxone [Narcan] 4 mg/actuation spray,non-aerosol 1 spray intranasal Q2M Qty: 2 0RF Rx Instructions: spray 1 dose into ONE nostril; alternate nostrils w each dose until help arrives Disabled Parking Permit 1 1 % SEEINSTR Rx Instructions: Valid for 5 years amlodipine 5 mg tablet 5 mg PO DAILY Patient Comments: pt received dose in hospital 11/10/19 early AM admit to hydrochlorothiazide 25 mg tablet 12.5 mg PO QAM ipratropium-albuterol 0.5 mg-3 mg(2.5 mg base)/3 mL solution for nebulization 3 ml inhalation Q6H PRN (Reason: shortness of breath or wheezing) Qty: 90 0RF aspirin [Enteric Coated Aspirin] 81 mg tablet,delayed release (DR/EC) 81 mg PO DAILY Qty: 30 0RF nitroglycerin 0.4 mg tablet, sublingual 0.4 mg sublingual Q5M PRN (Reason: chest pain) Qty: 10 0RF Rx Instructions: do not exceed 3 doses per episode Referrals: Edilberto Snell DO [Primary Care Provider] - Stand Alone Forms: Patient Portal/API/Survey
[2024-10-10] MEDS: OXYCODONE 5 MG/5 ML ORAL SOLUTION 10 MG PO (20:34)
== END 2024-10-10 20:44 | disposition home or self-care (01) ==
PROVIDERS: Emergency Provider Emergency Medicine; PCP Family Medicine
DX: M25.562 Pain in left knee (principal)
CPT/HCPCS: 73562; 99283

== ENCOUNTER → 2024-10-12 13:55 | Outpatient (CLI) | payer MEDICARE, OTHER, SELFPAY ==
[2024-02-02 03:27] VITALS: BMI 29.4
[2024-10-12 15:09] LABS: COVID-19 CEPHEID 4-PLEX PCR Negative (Negative); Influenza A - CEPHEID Flu A NEGATIVE (NEGATIVE); Influenza B - CEPHEID Flu B NEGATIVE (NEGATIVE); Respiratory Syncytial Virus Negative (Negative)
== END ==
PROVIDERS: PCP Family Medicine; Visit Provider Physician Assistant
DX: R05.1 Acute cough (principal)
CPT/HCPCS: 0241U

== ENCOUNTER → 2024-11-03 15:04 | Outpatient (CLI) | payer MEDICARE, OTHER, SELFPAY ==
[2024-02-02 03:27] VITALS: BMI 29.4
[2024-11-03 15:31] LABS: Add Manual Diff / Slide Review NO; Basophils Absolute Auto 0 /uL (0-100); Basophils Percent Auto 0.5 % (0-2); Eosinophils Absolute Auto 300 /uL (0-450); Eosinophils Percent Auto 3.6 % (2-4); Hematocrit 33.9 % (41-53); Hemoglobin 11.7 g/dL (13.5-17.5); Lymphocytes Absolute Auto 1700 /uL (1100-4500); Lymphocytes Percent Auto 21.9 % (25-40); Mean Corpuscular HGB Conc 34.7 % (30-36); Mean Corpuscular Hemoglobin 28.6 PG (26-34); Mean Corpuscular Volume 82.6 fL (80-100); Monocytes Absolute Auto 900 /uL (0-900); Neutrophils Absolute Auto 4900 /uL (1500-7000); Platelet Count 267 X10^3/uL (150-400); Red Cell Distribution Width 15.8 % (11.6-14.8); White Blood Cell Count 7.8 X10^3/uL (4.5-11.0)
[2024-11-03 15:47] LABS: HEMOLYSIS < 15 (0-50); Iron 48 ug/dL (49-181)
[2024-11-03 15:56] LABS: Percent Iron Saturation 19 % (20-50); Total Iron Binding Capacity 258 ug/dL (261-462); Transferrin 223 mg/dL (206-381)
[2024-11-03 16:37] LABS: Vitamin B12 204 pg/mL (239-931)
== END ==
PROVIDERS: PCP Family Medicine; Referring Provider Family Medicine; Visit Provider Family Medicine
DX: E53.8 Deficiency of other specified B group vitamins (principal); M06.9 Rheumatoid arthritis, unspecified; I10 Essential (primary) hypertension
CPT/HCPCS: 36415; 82607; 83540; 83550; 85025

== ENCOUNTER 2024-11-05 14:49 | Emergency (ER) | payer MEDICARE, OTHER, SELFPAY ==
[2024-02-02 03:27] VITALS: BMI 29.4
[2024-11-05 14:52] VITALS: BP 165/71; PULSE 69; RESP 14; TEMP 36.4; O2SAT 97; BMI 31.3
--- NOTE | 2024-11-05 15:12 | ED_ITS ---
HPI - Fall General Chief Complaint: Fall Stated Complaint: back and lft knee px Time Seen by Provider: 11/05/24 15:12 Source: patient Mode of arrival: Ambulatory History of Present Illness HPI Narrative: 78-year-old male history of chronic pain to his low back, takes chronic oxycodone for this comes into the ED from home for evaluation of fall. He states that yesterday at around noon he was trying to sit on a chair missed it landed on his butt/left side of his body. States that since then he has been having left back rib pain and left knee pain, states that he has had pain in these places before which is now an exacerbation of this pain. He denies head strike denies LOC not on any blood thinners. States that he has been able to stand ambulate but slowed secondary to increased pain to his left knee. Denies any other trauma. Related Data Home Medications Medication Instructions Recorded Confirmed Disabled Parking Permit 1 % SEEINSTR 11/08/20 11/03/24 amlodipine 5 mg tablet 5 mg PO DAILY 11/08/22 11/03/24 hydrochlorothiazide 25 mg tablet 12.5 mg PO QAM 11/15/22 11/03/24 Previous Rx's Medication Instructions Recorded albuterol sulfate 2.5 mg/3 mL 2.5 mg (3 mL) continuous 10/24/22 (0.083 %) solution for nebulization nebulization Q6HP PRN shortness of breath or wheezing #360 mL potassium chloride 20 mEq 20 meq PO BID #10 tabs 02/26/23 tablet,extended release ipratropium 0.5 mg-albuterol 3 mg 3 ml inhalation Q6H PRN shortness 03/19/23 (2.5 mg base)/3 mL nebulization of breath or wheezing #90 mL soln valacyclovir 1 gram tablet 1,000 mg PO TID #30 tabs 09/02/23 sulfasalazine 500 mg tablet 1,000 mg (2 x 500 mg) PO BID #180 11/28/23 tabs ascorbic acid (vitamin C) 500 mg 500 mg PO DAILY #90 tabs 12/13/23 tablet cholecalciferol (vitamin D3) 1,250 1,250 mcg PO QWEEK #12 caps 12/13/23 mcg (50,000 unit) capsule nortriptyline 10 mg capsule 10 mg PO BEDTIME #30 caps 12/17/23 zolmitriptan 5 mg tablet (Zomig) See Rx Instructions PO .COMPLEX 12/17/23 #10 tabs meclizine 25 mg tablet 25 mg PO TID PRN dizziness #10 tabs 01/23/24 mecobalamin (vitamin B12) 1,000 1,000 mcg PO DAILY #90 tabs 02/11/24 mcg chewable tablet (B12 Active) fluoxetine 10 mg capsule See Rx Instructions .Route 04/20/24 .COMPLEX #90 caps fluoxetine 20 mg capsule 20 mg PO DAILY #90 caps 04/20/24 prednisone 5 mg tablet 5 mg PO DAILY #30 tabs 06/22/24 naloxone 4 mg/actuation nasal 1 spray intranasal Q2M #2 ea 08/05/24 spray (Narcan) ondansetron HCl 4 mg tablet 4 mg PO Q6H PRN nausea and 08/05/24 vomiting #10 tabs methocarbamol 750 mg tablet 750 mg PO QID 30 days #120 tabs 08/17/24 aspirin 81 mg tablet,delayed 81 mg PO DAILY #30 tabs 08/18/24 release (Enteric Coated Aspirin) nitroglycerin 0.4 mg sublingual 0.4 mg sublingual Q5M PRN chest 08/18/24 tablet pain #10 tabs duloxetine 30 mg capsule,delayed 30 mg PO DAILY #30 caps 09/15/24 release (Cymbalta) prednisone 20 mg tablet 40 mg (2 x 20 mg) PO DAILY #14 tabs 09/15/24 lidocaine 5 % topical patch 1 patch topical DAILY #15 ea 09/29/24 albuterol sulfate 90 mcg/actuation 2 puff inhalation Q4-6H PRN 10/12/24 aerosol inhaler shortness of breath or wheezing #6.7 grams ipratropium bromide 17 2 puff inhalation QID #12.9 grams 10/12/24 mcg/actuation HFA aerosol inhaler metoprolol succinate 100 mg 100 mg PO DAILY #90 tabs 10/15/24 tablet,extended release 24 hr hydromorphone 2 mg tablet 2 mg PO BEDTIME PRN pain #30 tabs 10/19/24 oxycodone 10 mg tablet 10 mg PO Q8H PRN pain #90 tabs 10/19/24 cephalexin 500 mg capsule 500 mg PO TID #21 caps 11/03/24 clotrimazole 10 mg tracy 10 mg mucous membrane 5XD #30 tabs 11/03/24 ferrous gluconate 324 mg (37.5 mg 324 mg PO DAILY #90 tabs 11/03/24 iron) tablet omeprazole 40 mg capsule,delayed 40 mg PO DAILY #90 caps 11/03/24 release triamcinolone acetonide 0.5 % 1 applic topical BID #15 grams 11/03/24 topical cream Allergies Allergy/AdvReac Type Severity Reaction Status Date / Time cyclobenzaprine Allergy Severe Dizziness, Verified 11/03/24 16:41 [From Flexeril] I bounce off ag ibuprofen AdvReac Intermediate Redness of Verified 11/03/24 16:41 Skin acetaminophen [ACETAMINOPHEN] AdvReac Unknown Can't take Verified 11/03/24 16:41 r/t Hep C; upset stomach Review of Systems Review of Systems Narrative: General: Ground level fall, Denies fever, chills, weight loss HEENT: Denies headache, eye drainage, eye irritation, head trauma, sore throat, voice change Cardiovascular: Denies any chest pain, palpitations, shortness of breath, tachy cardia Respiratory: Denies any shortness of breath, cough, wheeze, stridor GI/: Denies any abdominal pain, nausea, vomiting, diarrhea, bright red blood per rectum, melanotic stools, urinary frequency, urinary retention, dysuria, hematuria MSK: Left-sided chest and left knee pain Skin: Denies any rashes, lesions, discoloration Neuro: Denies any headache, lightheadedness, dizziness, fainting, weakness Psych: Denies SI/HI Patient History Medical History (Updated 11/05/24 @ 17:15 by Carlos Encinas DO) Folliculitis Thrush GERD (gastroesophageal reflux disease) Hyponatremia Bronchitis Impaired cognition Left knee pain Chronic diarrhea Eustachian tube dysfunction Seasonal allergic rhinitis Dyspepsia Anemia Tinea Abdominal wall pain in both lower quadrants Constipation Aftercare following left shoulder joint replacement surgery Preoperative clearance Left lateral epicondylitis Adhesive capsulitis Right wrist sprain Oral lesion Colles' fracture Right wrist pain Left shoulder strain Anxiety Fibromyalgia Sinus drainage Chronic ankle pain, bilateral Rheumatoid arthritis Acute exacerbation of chronic bronchitis Foraminal stenosis of lumbar region Peripheral neuropathy Pneumonia (~2018) Impotence (Unknown) Restless leg syndrome (Unknown) Arthritis (Unknown) Chronic pain syndrome (Unknown) Kidney stones (Unknown) Prostate cancer (Unknown) Skin cancer (Unknown) Hepatitis C (Unknown) Hypertension (Unknown) Migraines (Unknown) PTSD (post-traumatic stress disorder) (Unknown) Depression (Unknown) Surgical History S/P lumbar fusion History of lumbar fusion (05/10/22) History of ankle surgery 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 Social History marital status: household members: spouse lives independently: Yes occupational status: previously employed Smoking Status: Former smoker Tobacco: How many years used: 20 quit status: has quit before alcohol intake: former substance use type: former substance user and marijuana Smoking Status: Former smoker tobacco type: cigarettes alcohol intake frequency: holidays/special occasions only Exam Narrative Exam Narrative: General: Cooperative, comfortable, well-developed, not in acute distress HEENT: Normocephalic, atraumatic, PERRLA, normal sclera, eyelids normal, Neck: Active full range of motion, atraumatic Chest: Normal to inspection, negative crepitus, no overlying erythema ecchymosis Respiratory: Normal respiratory effort, not in acute respiratory distress, clear to auscultation bilaterally negative cough, wheeze, tachypnea, rhonchi, rales Cardiology: Regular rate rhythm negative gallop, murmur, rubs GI/: Normal to inspection, soft, nonrigid, no tenderness to palpation, exam deferred MSK: Full range of active range of motion of all 4 extremities, atraumatic, mild tenderness to palpation over the left posterior ribs, mild tenderness to palpation of the left knee, however no overlying gross deformity Skin: No rashes lesions noted Neuro: Alert awake oriented x3, moves all 4 extremities spontaneously, cranial nerves intact, able to answer all questions appropriately follows commands appropriately Psych: Cooperative, negative suicidal or homicidal ideations Initial Vital Signs Initial Vital Signs: Vital Signs Temperature 97.5 F L 11/05/24 14:52 Pulse Rate 69 11/05/24 14:52 Respiratory Rate 14 11/05/24 14:52 Blood Pressure 165/71 H 11/05/24 14:52 Pulse Oximetry 97 11/05/24 14:52 Oxygen Delivery Method Room Air 11/05/24 14:52 Course Orders Ordered: ED Orders 11/05/24 15:34 CT chest wo con Stat XR knee LT 3V Stat Discontinued Medications Ketorolac Tromethamine (Ketorolac 30 Mg/Ml Vial) 15 mg IM NOW ONE Stop: 11/05/24 15:35 Last Admin: 11/05/24 16:01 Dose: 15 mg Documented By: NBA Oxycodone HCl (Oxycodone 5 Mg/5 Ml Oral Solution) 5 mg PO NOW ONE Stop: 11/05/24 17:15 Vital Signs Vital signs: Vital Signs - 8 hr 11/05/24 14:52 11/05/24 16:08 Temperature 97.5 F L 98 F Pulse Rate 69 69 Respiratory Rate 14 16 Blood Pressure 165/71 H 145/67 H Pulse Oximetry 97 98 Oxygen Delivery Method Room Air Room Air MDM - Fall Differential Diagnosis Differential diagnosis: Likely other (Chest wall contusion, left knee fracture, rib fracture) Imaging Data Extremity x-ray #1: Radiologist's Impression: [place] [address] XRay Report Signed Patient: Barrett Tam MR#: [id number] : 1945 Acct:[id number] Age/Sex: 78 / M Date of Service: 11/05/24 Loc: ED Accession Number: [id number] Procedure: XR knee LT 3V Ordering Provider: Carlos Encinas D.O. PROCEDURE: XR KNEE LT 3V INDICATIONS: pain s/p fall TECHNIQUE: 3 views of the knee were acquired. COMPARISON: [facility], , XR KNEE LT 3V, 10/10/2024, 15:21. [facility], , XR KNEE LT 3V, 10/01/2024, 14:26. FINDINGS: Bones: No fractures or dislocations. No suspicious bony lesions. Tricompartmental joint space narrowing with associated osteophytosis. Soft tissues: No joint effusion. No suspicious soft tissue calcifications. IMPRESSION: No acute bony abnormality or significant effusion. CT scan - chest: Radiologist's Impression: [address] [address] [address] Scan Report Signed Patient: Barrett Tam MR#: [id number] : 1945 Acct:[id number] Age/Sex: 78 / M Date of Service: 11/05/24 Loc: ED Accession Number: [id number] Procedure: CT chest wo con Ordering Provider: Carlos Encinas D.O. PROCEDURE: CT CHEST WO CON INDICATIONS: fall, left posterior rib pain TECHNIQUE: Noncontrast 5 mm thick sections acquired from the pulmonary apices to the posterior costophrenic angles. 1 mm lung window, 5 mm thick coronal and sagittal and 7 mm axial MIP reformats were then acquired. For radiation dose reduction, the following was used: automated exposure control, adjustment of mA and/or kV according to patient size. COMPARISON: [facility], CT, CT CHEST WO CON, 01/14/2020, 5:48. FINDINGS: Image quality: Diagnostic. Lower Neck: No enlarged lymph nodes. Thyroid: No thyroid nodules which require sonographic follow up, per consensus guidelines. Axillae: No enlarged lymph nodes. Chest Wall: Unremarkable. Bones: Shoulder arthroplasties. Surgical fusion of the lumbar spine, partially visualized. No displaced fracture. Lungs and Pleura: No pneumothorax or pleural effusions. Calcified pulmonary nodules and a few scattered noncalcified pulmonary micro nodules, index noncalcified nodules are present in the right lower lobe (series 3, image 193). Heart: Heart size is normal. No pericardial effusion. Thoracic Vessels: The aorta and pulmonary arteries demonstrate normal size. Mediastinum and Patt: No enlarged lymph nodes. Calcified hilar and mediastinal lymph nodes. Esophagus: No wall thickening. No hiatal hernia. Upper Abdomen: Visualized upper abdomen solid organs and bowel loops appear normal. IMPRESSION: No displaced fracture or pneumothorax. No chest contusion. Pulmonary micronodules, not present on prior. Consider 12 month follow-up if at high risk for developing lung cancer, per Fleischner Society guidelines. MDM Narrative Medical decision making narrative: 78-year-old male history of chronic pain to his lumbar region and left knee comes into the ED after mechanical fall, states that earlier today he was attempting to sit down on a chair missed it landed onto the left buttock/left chest wall region. Patient states he was able to stand bear weight ambulate immediately after but had worsening pain to his left knee and left rib region therefore decided come into the ED for further evaluation treatment. Patient was able to stand bear weight ambulate unassisted here in the emergency department. CT scan of the chest did not show any displaced fractures or pneumothorax, x-ray unremarkable. Patient was instructed to follow up with primary care in outpatient setting strict return precautions given he verbalized understanding of this and agrees to being discharged home with outpatient follow up Discharge Plan Departure Patient Disposition: Home Clinical Impression: Contusion of left chest wall, Contusion of knee, left Activity Restrictions/Additional Instructions: Please read the discharge instructions sheet carefully and bring all papers to all doctor follow-up visits, as it may contain information that your doctor may want to see. Disease processes change and evolve, if your symptoms worsen or if you develop any new symptoms that are concerning to you please return for evaluation. Your evaluation today does not show any evidence of any life- threatening/serious illnesses requiring admission to the hospital or surgery. Please follow-up with your doctor for re-evaluation in approximately 1 day. Seek immediate medical attention for any worrisome symptoms. *If you do not have a primary care provider please contact the [facility] Resource line at [phone]. They will ask some questions about your medical history and help get you set up with a doctor in the community. Prescriptions: No Action prednisone 20 mg tablet 40 mg PO DAILY Qty: 14 0RF Rx Instructions: Take 5-7 days duloxetine [Cymbalta] 30 mg capsule,delayed release(DR/EC) 30 mg PO DAILY Qty: 30 1RF albuterol sulfate 90 mcg/actuation HFA aerosol inhaler 2 puff inhalation Q4-6H PRN (Reason: shortness of breath or wheezing) Qty: 6.7 0RF ipratropium bromide 17 mcg/actuation HFA aerosol inhaler 2 puff inhalation QID Qty: 12.9 0RF albuterol sulfate 2.5 mg /3 mL (0.083 %) solution for nebulization 2.5 mg Continuous Nebulization Q6HP PRN (Reason: shortness of breath or wheezing) Qty: 360 2RF sulfasalazine 500 mg tablet 1,000 mg PO BID Qty: 180 1RF cholecalciferol (vitamin D3) 1,250 mcg (50,000 unit) capsule 1,250 mcg PO QWEEK Qty: 12 0RF ascorbic acid (vitamin C) 500 mg tablet 500 mg PO DAILY Qty: 90 0RF Rx Instructions: Take with iron mecobalamin (vitamin B12) [B12 Active] 1,000 mcg tablet,chewable 1,000 mcg PO DAILY Qty: 90 3RF fluoxetine 20 mg capsule 20 mg PO DAILY Qty: 90 3RF Rx Instructions: Take with 10 mg to complete 30 mg dose fluoxetine 10 mg capsule See Rx Instructions .ROUTE .COMPLEX Qty: 90 3RF Dose Instruction: take 1 capsule by mouth once daily WITH 20MG CAP DAILY TOTAL 30 MG DAILY Rx Instructions: take 1 capsule by mouth once daily WITH 20MG CAP DAILY TOTAL 30 MG DAILY methocarbamol 750 mg tablet 750 mg PO QID 30 Days Qty: 120 2RF metoprolol succinate 100 mg tablet extended release 24 hr 100 mg PO DAILY Qty: 90 3RF oxycodone 10 mg tablet 10 mg PO Q8H PRN (Reason: pain) Qty: 90 0RF hydromorphone 2 mg tablet 2 mg PO BEDTIME PRN (Reason: pain) Qty: 30 0RF Rx Instructions: May refill on Dec 02, 2023 prednisone 5 mg tablet 5 mg PO DAILY Qty: 30 5RF Rx Instructions: start taking every day ferrous gluconate 324 mg (37.5 mg iron) tablet 324 mg PO DAILY Qty: 90 2RF Rx Instructions: start taking daily, with food or juice omeprazole 40 mg capsule,delayed release(DR/EC) 40 mg PO DAILY Qty: 90 3RF Rx Instructions: take 1 capsule by mouth once daily clotrimazole 10 mg tracy 10 mg mucous membrane 5XD Qty: 30 1RF triamcinolone acetonide 0.5 % cream 1 applic topical BID Qty: 15 0RF Rx Instructions: Applied to affected areas cephalexin 500 mg capsule 500 mg PO TID Qty: 21 0RF nortriptyline 10 mg capsule 10 mg PO BEDTIME Qty: 30 1RF zolmitriptan [Zomig] 5 mg tablet See Rx Instructions PO .COMPLEX Qty: 10 1RF Rx Instructions: take 1 tab at onset of headache; if no relief, may repeat 1 tab after at least 2 hrs; max = 2 tabs/24 hrs PO lidocaine 5 % adhesive patch,medicated 1 patch topical DAILY Qty: 15 2RF Rx Instructions: leave on most painful area for up to 12 hrs potassium chloride 20 mEq tablet extended release 20 meq PO BID Qty: 10 0RF valacyclovir 1 gram tablet 1,000 mg PO TID Qty: 30 0RF meclizine 25 mg tablet 25 mg PO TID PRN (Reason: dizziness) Qty: 10 0RF ondansetron HCl 4 mg tablet 4 mg PO Q6H PRN (Reason: nausea and vomiting) Qty: 10 0RF naloxone [Narcan] 4 mg/actuation spray,non-aerosol 1 spray intranasal Q2M Qty: 2 0RF Rx Instructions: spray 1 dose into ONE nostril; alternate nostrils w each dose until help arrives Disabled Parking Permit 1 1 % SEEINSTR Rx Instructions: Valid for 5 years amlodipine 5 mg tablet 5 mg PO DAILY Patient Comments: pt received dose in hospital 11/10/19 early AM admit to hydrochlorothiazide 25 mg tablet 12.5 mg PO QAM ipratropium-albuterol 0.5 mg-3 mg(2.5 mg base)/3 mL solution for nebulization 3 ml inhalation Q6H PRN (Reason: shortness of breath or wheezing) Qty: 90 0RF aspirin [Enteric Coated Aspirin] 81 mg tablet,delayed release (DR/EC) 81 mg PO DAILY Qty: 30 0RF nitroglycerin 0.4 mg tablet, sublingual 0.4 mg sublingual Q5M PRN (Reason: chest pain) Qty: 10 0RF Rx Instructions: do not exceed 3 doses per episode Referrals: Edilberto Snell DO [Primary Care Provider] - Stand Alone Forms: Patient Portal/API/Survey
--- NOTE | 2024-11-05 15:34 | DI.RAD.S_ITS ---
PROCEDURE: XR KNEE LT 3V INDICATIONS: pain s/p fall TECHNIQUE: 3 views of the knee were acquired. COMPARISON: [facility], CR, XR KNEE LT 3V, 10/10/2024, 15:21. [facility], CR, XR KNEE LT 3V, 10/01/2024, 14:26. FINDINGS: Bones: No fractures or dislocations. No suspicious bony lesions. Tricompartmental joint space narrowing with associated osteophytosis. Soft tissues: No joint effusion. No suspicious soft tissue calcifications. IMPRESSION: No acute bony abnormality or significant effusion. Dictated by: Jason Hdez M.D. on 11/05/2024 at 16:46 Approved by: Jason Hdez M.D. on 11/05/2024 at 16:47
--- NOTE | 2024-11-05 15:34 | DI.CT.S_ITS ---
PROCEDURE: CT CHEST WO CON INDICATIONS: fall, left posterior rib pain TECHNIQUE: Noncontrast 5 mm thick sections acquired from the pulmonary apices to the posterior costophrenic angles. 1 mm lung window, 5 mm thick coronal and sagittal and 7 mm axial MIP reformats were then acquired. For radiation dose reduction, the following was used: automated exposure control, adjustment of mA and/or kV according to patient size. COMPARISON: [facility], CT, CT CHEST WO CON, 01/14/2020, 5:48. FINDINGS: Image quality: Diagnostic. Lower Neck: No enlarged lymph nodes. Thyroid: No thyroid nodules which require sonographic follow up, per consensus guidelines. Axillae: No enlarged lymph nodes. Chest Wall: Unremarkable. Bones: Shoulder arthroplasties. Surgical fusion of the lumbar spine, partially visualized. No displaced fracture. Lungs and Pleura: No pneumothorax or pleural effusions. Calcified pulmonary nodules and a few scattered noncalcified pulmonary micro nodules, index noncalcified nodules are present in the right lower lobe (series 3, image 193). Heart: Heart size is normal. No pericardial effusion. Thoracic Vessels: The aorta and pulmonary arteries demonstrate normal size. Mediastinum and Patt: No enlarged lymph nodes. Calcified hilar and mediastinal lymph nodes. Esophagus: No wall thickening. No hiatal hernia. Upper Abdomen: Visualized upper abdomen solid organs and bowel loops appear normal. IMPRESSION: No displaced fracture or pneumothorax. No chest contusion. Pulmonary micronodules, not present on prior. Consider 12 month follow-up if at high risk for developing lung cancer, per Fleischner Society guidelines. Dictated by: Jason Hdez M.D. on 11/05/2024 at 15:56 Approved by: Jason Hdez M.D. on 11/05/2024 at 16:00
[2024-11-05] MEDS: KETOROLAC 30 MG/ML VIAL 15 MG IM (16:01)
[2024-11-05 16:08] VITALS: BP 145/67; PULSE 69; RESP 16; TEMP 36.6; O2SAT 98
[2024-11-05] MEDS: OXYCODONE IR 5 MG TABLET PO (17:32)
== END 2024-11-05 17:40 | disposition home or self-care (01) ==
PROVIDERS: Emergency Provider Student in an Organized Health Care Education/Training Program; PCP Family Medicine
DX: S20.212A Contusion of left front wall of thorax, initial encounter (principal); S80.02XA Contusion of left knee, initial encounter; W07.XXXA Fall from chair, initial encounter
CPT/HCPCS: 71250; 73562; 96372; 99284; J1885

== ENCOUNTER 2024-11-10 15:39 | Emergency (ER) | payer MEDICARE, OTHER, SELFPAY ==
[2024-02-02 03:27] VITALS: BMI 29.4
[2024-11-10 16:00] VITALS: BP 141/72; PULSE 61; RESP 18; TEMP 36.9; O2SAT 97; BMI 30.5
[2024-11-10 22:16] VITALS: RESP 20; O2SAT 98
[2024-11-10 22:18] VITALS: PULSE 77; O2SAT 97
[2024-11-10 22:19] VITALS: BP 139/82
--- NOTE | 2024-11-10 22:52 | ED.BACK ---
HPI - Back Pain/Injury General Chief Complaint: Back Pain/Injury Stated Complaint: back pain Time Seen by Provider: 11/10/24 22:20 Source: patient History of Present Illness HPI Narrative: 79-year-old male with history of chronic/recurrent low back pain, was climbing up and down a ladder recently now with recurrence of low back pain. No fall injury. No lifting injury. No incontinence of urine or stool. Reports history of Motrin intolerance, causes upset stomach. Reports allergy to ibuprofen and acetaminophen and cyclobenzaprine. Previously has been treated with methocarbamol muscle relaxant. Related Data Home Medications Medication Instructions Recorded Confirmed Disabled Parking Permit 1 % SEEINSTR 11/08/20 11/03/24 amlodipine 5 mg tablet 5 mg PO DAILY 11/08/22 11/03/24 hydrochlorothiazide 25 mg tablet 12.5 mg PO QAM 11/15/22 11/03/24 Previous Rx's Medication Instructions Recorded albuterol sulfate 2.5 mg/3 mL 2.5 mg (3 mL) continuous 10/24/22 (0.083 %) solution for nebulization nebulization Q6HP PRN shortness of breath or wheezing #360 mL potassium chloride 20 mEq 20 meq PO BID #10 tabs 02/26/23 tablet,extended release ipratropium 0.5 mg-albuterol 3 mg 3 ml inhalation Q6H PRN shortness 03/19/23 (2.5 mg base)/3 mL nebulization of breath or wheezing #90 mL soln valacyclovir 1 gram tablet 1,000 mg PO TID #30 tabs 09/02/23 sulfasalazine 500 mg tablet 1,000 mg (2 x 500 mg) PO BID #180 11/28/23 tabs ascorbic acid (vitamin C) 500 mg 500 mg PO DAILY #90 tabs 12/13/23 tablet cholecalciferol (vitamin D3) 1,250 1,250 mcg PO QWEEK #12 caps 12/13/23 mcg (50,000 unit) capsule nortriptyline 10 mg capsule 10 mg PO BEDTIME #30 caps 12/17/23 zolmitriptan 5 mg tablet (Zomig) See Rx Instructions PO .COMPLEX 12/17/23 #10 tabs meclizine 25 mg tablet 25 mg PO TID PRN dizziness #10 tabs 01/23/24 mecobalamin (vitamin B12) 1,000 1,000 mcg PO DAILY #90 tabs 02/11/24 mcg chewable tablet (B12 Active) fluoxetine 10 mg capsule See Rx Instructions .Route 04/20/24 .COMPLEX #90 caps fluoxetine 20 mg capsule 20 mg PO DAILY #90 caps 04/20/24 prednisone 5 mg tablet 5 mg PO DAILY #30 tabs 06/22/24 naloxone 4 mg/actuation nasal 1 spray intranasal Q2M #2 ea 08/05/24 spray (Narcan) ondansetron HCl 4 mg tablet 4 mg PO Q6H PRN nausea and 08/05/24 vomiting #10 tabs methocarbamol 750 mg tablet 750 mg PO QID 30 days #120 tabs 08/17/24 aspirin 81 mg tablet,delayed 81 mg PO DAILY #30 tabs 08/18/24 release (Enteric Coated Aspirin) nitroglycerin 0.4 mg sublingual 0.4 mg sublingual Q5M PRN chest 08/18/24 tablet pain #10 tabs prednisone 20 mg tablet 40 mg (2 x 20 mg) PO DAILY #14 tabs 09/15/24 lidocaine 5 % topical patch 1 patch topical DAILY #15 ea 09/29/24 albuterol sulfate 90 mcg/actuation 2 puff inhalation Q4-6H PRN 10/12/24 aerosol inhaler shortness of breath or wheezing #6.7 grams ipratropium bromide 17 2 puff inhalation QID #12.9 grams 10/12/24 mcg/actuation HFA aerosol inhaler metoprolol succinate 100 mg 100 mg PO DAILY #90 tabs 10/15/24 tablet,extended release 24 hr hydromorphone 2 mg tablet 2 mg PO BEDTIME PRN pain #30 tabs 10/19/24 oxycodone 10 mg tablet 10 mg PO Q8H PRN pain #90 tabs 10/19/24 cephalexin 500 mg capsule 500 mg PO TID #21 caps 11/03/24 clotrimazole 10 mg tracy 10 mg mucous membrane 5XD #30 tabs 11/03/24 ferrous gluconate 324 mg (37.5 mg 324 mg PO DAILY #90 tabs 11/03/24 iron) tablet omeprazole 40 mg capsule,delayed 40 mg PO DAILY #90 caps 11/03/24 release triamcinolone acetonide 0.5 % 1 applic topical BID #15 grams 11/03/24 topical cream duloxetine 30 mg capsule,delayed 30 mg PO DAILY #30 caps 11/10/24 release (Cymbalta) methocarbamol 750 mg tablet 750 mg PO TID #14 tabs 11/10/24 Allergies Allergy/AdvReac Type Severity Reaction Status Date / Time cyclobenzaprine Allergy Severe Dizziness, Verified 11/03/24 16:41 [From Flexeril] I bounce off ag ibuprofen AdvReac Intermediate Redness of Verified 11/03/24 16:41 Skin acetaminophen [ACETAMINOPHEN] AdvReac Unknown Can't take Verified 11/03/24 16:41 r/t Hep C; upset stomach Patient History Medical History (Updated 11/10/24 @ 23:18 by Marlon Anderson MD) Folliculitis Thrush GERD (gastroesophageal reflux disease) Hyponatremia Bronchitis Impaired cognition Left knee pain Chronic diarrhea Eustachian tube dysfunction Seasonal allergic rhinitis Dyspepsia Anemia Tinea Abdominal wall pain in both lower quadrants Constipation Aftercare following left shoulder joint replacement surgery Preoperative clearance Left lateral epicondylitis Adhesive capsulitis Right wrist sprain Oral lesion Colles' fracture Right wrist pain Left shoulder strain Anxiety Fibromyalgia Sinus drainage Chronic ankle pain, bilateral Rheumatoid arthritis Acute exacerbation of chronic bronchitis Foraminal stenosis of lumbar region Peripheral neuropathy Pneumonia (~2018) Impotence (Unknown) Restless leg syndrome (Unknown) Arthritis (Unknown) Chronic pain syndrome (Unknown) Kidney stones (Unknown) Prostate cancer (Unknown) Skin cancer (Unknown) Hepatitis C (Unknown) Hypertension (Unknown) Migraines (Unknown) PTSD (post-traumatic stress disorder) (Unknown) Depression (Unknown) Surgical History S/P lumbar fusion History of lumbar fusion (05/10/22) History of ankle surgery 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 Social History marital status: household members: spouse lives independently: Yes occupational status: previously employed Smoking Status: Former smoker Tobacco: How many years used: 20 quit status: has quit before alcohol intake: former substance use type: former substance user and marijuana Smoking Status: Former smoker tobacco type: cigarettes alcohol intake frequency: holidays/special occasions only Exam Narrative Exam Narrative: GENERAL: Well-developed patient, in mild distress. HEAD: Atraumatic. Normocephalic. EYES: Pupils equal round and reactive. Extraocular motions intact. No scleral icterus. No injection or drainage. ENT: Nose without bleeding, purulent drainage. Throat without erythema, tonsillar hypertrophy or exudate. Airway patent. NECK: Trachea midline. Non tender CARDIOVASCULAR: Regular rate and rhythm without murmurs, gallops, or rubs. RESPIRATORY: Clear to auscultation. Breath sounds equal bilaterally. No wheezes, rales, or rhonchi. GASTROINTESTINAL: Abdomen soft, non-tender, nondistended. EXTREMITIES: No edema or joint tenderness. BACK: Bilateral low paraspinous lumbar tenderness. No skin changes, bruising, vesicles, erythema. No flank tenderness. No midline or paraspinal muscle tenderness lumbar. No skin changes or rashes or vesicles. NEURO: AOx3. Motor functions grossly nonfocal. Straight leg raise left leg 30?, right leg 15? with poor effort. SKIN: No rash or erythema of visible areas Initial Vital Signs Initial Vital Signs: Vital Signs Temperature 98.5 F 11/10/24 16:00 Pulse Rate 61 11/10/24 16:00 Respiratory Rate 18 11/10/24 16:00 Blood Pressure 141/72 H 11/10/24 16:00 Pulse Oximetry 97 11/10/24 16:00 Oxygen Delivery Method Room Air 11/10/24 16:00 Course Orders Ordered: Discontinued Medications Hydromorphone HCl (Hydromorphone 1 Mg Inj) 1 mg IM NOW ONE Stop: 11/11/24 00:10 Last Admin: 11/11/24 00:20 Dose: 1 mg Documented By: FAM Ketorolac Tromethamine (Ketorolac 30 Mg/Ml Vial) 30 mg IM NOW ONE Stop: 11/11/24 00:08 Last Admin: 11/11/24 00:25 Dose: 30 mg Documented By: FAM Methocarbamol (Methocarbamol 500 Mg Tablet) 750 mg PO NOW ONE Stop: 11/10/24 23:13 Last Admin: 11/10/24 23:17 Dose: 750 mg Documented By: FAM Silver Nitrate/Potassium Nitrate (Silver Nitrate Stick) 1 each TOP NOW ONE Stop: 11/11/24 00:21 Last Admin: 11/11/24 00:24 Dose: Not Given Documented By: FAM Vital Signs Vital signs: Vital Signs - 8 hr 11/10/24 22:16 11/10/24 22:18 11/10/24 22:19 Pulse Rate 77 Respiratory Rate 20 Blood Pressure 139/82 Pulse Oximetry 98 97 Oxygen Delivery Method 11/11/24 00:36 11/11/24 00:37 11/11/24 00:37 Pulse Rate 72 Respiratory Rate 19 Blood Pressure 141/85 H Pulse Oximetry 97 96 Oxygen Delivery Method Room Air MDM - Back Pain/Injury MDM Narrative Medical decision making narrative: 79-year-old male with chronic recurrent low back pain, known to me from prior visits with similar presentations, alleged allergies to acetaminophen and ibuprofen and cyclobenzaprine. Previously he has been prescribed oxycodone. Previously he has responded to methocarbamol. Worse low back pain after recent climbing up and down a ladder, no fall from the ladder. Poor effort on slight leg raise testing. IM Toradol, which he had tolerated before in September 2024. IM Dilaudid. Oral dose methocarbamol, we will send methocarbamol prescription to his pharmacy. Symptoms improved, ambulatory. Home with . Return precautions discussed Discharge Plan Departure Patient Disposition: Home Clinical Impression: Low back pain Activity Restrictions/Additional Instructions: Chronic low back pain, prior lumbar surgeries, recent activity up and down a ladder, no falls but some twisting, with worsening chronic low back pain. Intramuscular Toradol given, which had. Intramuscular Dilaudid dose also given. Oral muscle relaxant methocarbamol/Robaxin also given, with prescription sent to pharmacy. Take muscle relaxant as directed. Recheck with your regular doctor in the next couple of days. Continue taking your chronic medications for now. Return to this/nearest emergency department for any change worsening symptoms or any concerns prior Prescriptions: New methocarbamol 750 mg tablet 750 mg PO TID Qty: 14 0RF No Action prednisone 20 mg tablet 40 mg PO DAILY Qty: 14 0RF Rx Instructions: Take 5-7 days albuterol sulfate 90 mcg/actuation HFA aerosol inhaler 2 puff inhalation Q4-6H PRN (Reason: shortness of breath or wheezing) Qty: 6.7 0RF ipratropium bromide 17 mcg/actuation HFA aerosol inhaler 2 puff inhalation QID Qty: 12.9 0RF albuterol sulfate 2.5 mg /3 mL (0.083 %) solution for nebulization 2.5 mg Continuous Nebulization Q6HP PRN (Reason: shortness of breath or wheezing) Qty: 360 2RF sulfasalazine 500 mg tablet 1,000 mg PO BID Qty: 180 1RF cholecalciferol (vitamin D3) 1,250 mcg (50,000 unit) capsule 1,250 mcg PO QWEEK Qty: 12 0RF ascorbic acid (vitamin C) 500 mg tablet 500 mg PO DAILY Qty: 90 0RF Rx Instructions: Take with iron mecobalamin (vitamin B12) [B12 Active] 1,000 mcg tablet,chewable 1,000 mcg PO DAILY Qty: 90 3RF fluoxetine 20 mg capsule 20 mg PO DAILY Qty: 90 3RF Rx Instructions: Take with 10 mg to complete 30 mg dose fluoxetine 10 mg capsule See Rx Instructions .ROUTE .COMPLEX Qty: 90 3RF Dose Instruction: take 1 capsule by mouth once daily WITH 20MG CAP DAILY TOTAL 30 MG DAILY Rx Instructions: take 1 capsule by mouth once daily WITH 20MG CAP DAILY TOTAL 30 MG DAILY methocarbamol 750 mg tablet 750 mg PO QID 30 Days Qty: 120 2RF metoprolol succinate 100 mg tablet extended release 24 hr 100 mg PO DAILY Qty: 90 3RF oxycodone 10 mg tablet 10 mg PO Q8H PRN (Reason: pain) Qty: 90 0RF hydromorphone 2 mg tablet 2 mg PO BEDTIME PRN (Reason: pain) Qty: 30 0RF Rx Instructions: May refill on Dec 02, 2023 duloxetine [Cymbalta] 30 mg capsule,delayed release(DR/EC) 30 mg PO DAILY Qty: 30 1RF prednisone 5 mg tablet 5 mg PO DAILY Qty: 30 5RF Rx Instructions: start taking every day ferrous gluconate 324 mg (37.5 mg iron) tablet 324 mg PO DAILY Qty: 90 2RF Rx Instructions: start taking daily, with food or juice omeprazole 40 mg capsule,delayed release(DR/EC) 40 mg PO DAILY Qty: 90 3RF Rx Instructions: take 1 capsule by mouth once daily clotrimazole 10 mg tracy 10 mg mucous membrane 5XD Qty: 30 1RF triamcinolone acetonide 0.5 % cream 1 applic topical BID Qty: 15 0RF Rx Instructions: Applied to affected areas cephalexin 500 mg capsule 500 mg PO TID Qty: 21 0RF nortriptyline 10 mg capsule 10 mg PO BEDTIME Qty: 30 1RF zolmitriptan [Zomig] 5 mg tablet See Rx Instructions PO .COMPLEX Qty: 10 1RF Rx Instructions: take 1 tab at onset of headache; if no relief, may repeat 1 tab after at least 2 hrs; max = 2 tabs/24 hrs PO lidocaine 5 % adhesive patch,medicated 1 patch topical DAILY Qty: 15 2RF Rx Instructions: leave on most painful area for up to 12 hrs potassium chloride 20 mEq tablet extended release 20 meq PO BID Qty: 10 0RF valacyclovir 1 gram tablet 1,000 mg PO TID Qty: 30 0RF meclizine 25 mg tablet 25 mg PO TID PRN (Reason: dizziness) Qty: 10 0RF ondansetron HCl 4 mg tablet 4 mg PO Q6H PRN (Reason: nausea and vomiting) Qty: 10 0RF naloxone [Narcan] 4 mg/actuation spray,non-aerosol 1 spray intranasal Q2M Qty: 2 0RF Rx Instructions: spray 1 dose into ONE nostril; alternate nostrils w each dose until help arrives Disabled Parking Permit 1 1 % SEEINSTR Rx Instructions: Valid for 5 years amlodipine 5 mg tablet 5 mg PO DAILY Patient Comments: pt received dose in hospital 11/10/19 early AM admit to hydrochlorothiazide 25 mg tablet 12.5 mg PO QAM ipratropium-albuterol 0.5 mg-3 mg(2.5 mg base)/3 mL solution for nebulization 3 ml inhalation Q6H PRN (Reason: shortness of breath or wheezing) Qty: 90 0RF aspirin [Enteric Coated Aspirin] 81 mg tablet,delayed release (DR/EC) 81 mg PO DAILY Qty: 30 0RF nitroglycerin 0.4 mg tablet, sublingual 0.4 mg sublingual Q5M PRN (Reason: chest pain) Qty: 10 0RF Rx Instructions: do not exceed 3 doses per episode Referrals: Edilberto Snell DO [Primary Care Provider] - Stand Alone Forms: Patient Portal/API/Survey
[2024-11-10] MEDS: methocarbamoL 500 MG TABLET 750 MG PO (23:17)
[2024-11-11] MEDS: HYDROMORPHONE 1 MG INJ IM (00:20)
[2024-11-11] MEDS: KETOROLAC 30 MG/ML VIAL IM (00:25)
[2024-11-11 00:36] VITALS: O2SAT 97
[2024-11-11 00:37] VITALS: BP 141/85; PULSE 72; RESP 19; O2SAT 96
== END 2024-11-11 00:54 | disposition home or self-care (01) ==
PROVIDERS: Emergency Provider Emergency Medicine; PCP Family Medicine
DX: M54.50 Low back pain, unspecified (principal); G89.29 Other chronic pain; Z88.6 Allergy status to analgesic agent
CPT/HCPCS: 96372; 99283; 99284; J1171; J1885

== ENCOUNTER 2024-11-29 17:12 | Emergency (ER) | payer MEDICARE, OTHER, SELFPAY ==
[2024-02-02 03:27] VITALS: BMI 29.4
[2024-11-29 17:31] VITALS: BP 171/79; PULSE 65; RESP 18; TEMP 36.4; O2SAT 96; BMI 30.5
== END 2024-11-29 18:01 | disposition left against medical advice (07) ==
PROVIDERS: Emergency Provider Emergency Medicine; PCP Family Medicine
DX: M79.89 Other specified soft tissue disorders (principal)
CPT/HCPCS: 99281

== ENCOUNTER 2024-12-07 20:46 | Emergency (ER) | payer MEDICARE, OTHER, SELFPAY ==
[2024-02-02 03:27] VITALS: BMI 29.4
[2024-12-07 21:02] VITALS: BP 146/93; PULSE 96; RESP 16; TEMP 37.2; O2SAT 95; BMI 29.7
== END 2024-12-07 21:40 | disposition left against medical advice (07) ==
PROVIDERS: Emergency Provider Student in an Organized Health Care Education/Training Program; PCP Family Medicine
CPT/HCPCS: 99281

== ENCOUNTER 2024-12-24 17:26 | Emergency (ER) | payer MEDICARE, OTHER, SELFPAY ==
[2024-02-02 03:27] VITALS: BMI 29.4
[2024-12-24 17:36] VITALS: BP 169/102; PULSE 76; RESP 18; TEMP 37; O2SAT 99
--- NOTE | 2024-12-24 20:29 | PC.NURSE ---
pt here for itching and rash. denies SOB, fevers, chest pain, and no trouble swallowing. has small red dots all over body and has been referred to dermatology. was given anti histamine, steroid cream, oral steroids, and states also abx for flare up. The stated it was unspecified dermatitis. He stats that he does not know when he last used his medication that was prescribed.
--- NOTE | 2024-12-24 21:09 | ED.SKABFB ---
HPI - Skin/Abscess/Foreign Bdy General Chief complaint: Skin/Abscess/Foreign Body Stated complaint: breaking out all over, itching Time Seen by Provider: 12/24/24 20:29 Source: patient Mode of arrival: EMS Limitations: no limitations History of Present Illness HPI narrative: Patient is a 79-year-old male presents for persistent diffuse itchiness. He states that he has been having whole-body itchiness/rash ongoing persistent for the past several weeks to months. He states that he was recently seen by his primary care doctor as well as a research and development manager had improvement of his symptoms after taking medications that they prescribed him but he states that he does not know where these medications are currently and states that he i having flare-up of his itchiness. He states that it starts on his bilateral arms and goes to his chest and back. But he denies any other systemic symptoms such as headache visual disturbances chest pain shortness of breath fever chills nausea vomiting abdominal pain or any other GI/ symptoms at this time. He states that he can not recall when he last took any of these medications. Related Data Home Medications Medication Instructions Recorded Confirmed Disabled Parking Permit 1 % SEEINSTR 11/08/20 12/11/24 amlodipine 5 mg tablet 5 mg PO DAILY 11/08/22 12/11/24 hydrochlorothiazide 25 mg tablet 12.5 mg PO QAM 11/15/22 12/11/24 clobetasol 0.05 % scalp solution topical BID 12/11/24 12/11/24 Previous Rx's Medication Instructions Recorded albuterol sulfate 2.5 mg/3 mL 2.5 mg (3 mL) continuous 10/24/22 (0.083 %) solution for nebulization nebulization Q6HP PRN shortness of breath or wheezing #360 mL potassium chloride 20 mEq 20 meq PO BID #10 tabs 02/26/23 tablet,extended release ipratropium 0.5 mg-albuterol 3 mg 3 ml inhalation Q6H PRN shortness 03/19/23 (2.5 mg base)/3 mL nebulization of breath or wheezing #90 mL soln valacyclovir 1 gram tablet 1,000 mg PO TID #30 tabs 09/02/23 sulfasalazine 500 mg tablet 1,000 mg (2 x 500 mg) PO BID #180 11/28/23 tabs ascorbic acid (vitamin C) 500 mg 500 mg PO DAILY #90 tabs 12/13/23 tablet cholecalciferol (vitamin D3) 1,250 1,250 mcg PO QWEEK #12 caps 12/13/23 mcg (50,000 unit) capsule nortriptyline 10 mg capsule 10 mg PO BEDTIME #30 caps 12/17/23 zolmitriptan 5 mg tablet (Zomig) See Rx Instructions PO .COMPLEX 12/17/23 #10 tabs meclizine 25 mg tablet 25 mg PO TID PRN dizziness #10 tabs 01/23/24 mecobalamin (vitamin B12) 1,000 1,000 mcg PO DAILY #90 tabs 02/11/24 mcg chewable tablet (B12 Active) fluoxetine 10 mg capsule See Rx Instructions .Route 04/20/24 .COMPLEX #90 caps fluoxetine 20 mg capsule 20 mg PO DAILY #90 caps 04/20/24 prednisone 5 mg tablet 5 mg PO DAILY #30 tabs 06/22/24 naloxone 4 mg/actuation nasal 1 spray intranasal Q2M #2 ea 08/05/24 spray (Narcan) ondansetron HCl 4 mg tablet 4 mg PO Q6H PRN nausea and 08/05/24 vomiting #10 tabs methocarbamol 750 mg tablet 750 mg PO QID 30 days #120 tabs 08/17/24 aspirin 81 mg tablet,delayed 81 mg PO DAILY #30 tabs 08/18/24 release (Enteric Coated Aspirin) nitroglycerin 0.4 mg sublingual 0.4 mg sublingual Q5M PRN chest 08/18/24 tablet pain #10 tabs lidocaine 5 % topical patch 1 patch topical DAILY #15 ea 09/29/24 albuterol sulfate 90 mcg/actuation 2 puff inhalation Q4-6H PRN 10/12/24 aerosol inhaler shortness of breath or wheezing #6.7 grams ipratropium bromide 17 2 puff inhalation QID #12.9 grams 10/12/24 mcg/actuation HFA aerosol inhaler metoprolol succinate 100 mg 100 mg PO DAILY #90 tabs 10/15/24 tablet,extended release 24 hr cephalexin 500 mg capsule 500 mg PO TID #21 caps 11/03/24 clotrimazole 10 mg tracy 10 mg mucous membrane 5XD #30 tabs 11/03/24 ferrous gluconate 324 mg (37.5 mg 324 mg PO DAILY #90 tabs 11/03/24 iron) tablet omeprazole 40 mg capsule,delayed 40 mg PO DAILY #90 caps 11/03/24 release duloxetine 30 mg capsule,delayed 30 mg PO DAILY #30 caps 11/10/24 release (Cymbalta) mupirocin 2 % topical ointment 1 applic topical BID #22 grams 12/04/24 triamcinolone acetonide 0.5 % 1 applic topical BID #15 grams 12/04/24 topical cream hydromorphone 2 mg tablet 2 mg PO BEDTIME PRN pain #30 tabs 12/11/24 oxycodone 10 mg tablet 10 mg PO Q8H PRN pain #90 tabs 12/11/24 prednisone 50 mg tablet 50 mg PO DAILY #10 tabs 12/11/24 mupirocin 2 % topical ointment 1 applic topical BID #22 grams 12/24/24 triamcinolone acetonide 0.5 % 1 applic topical BID #15 grams 12/24/24 topical ointment Allergies Allergy/AdvReac Type Severity Reaction Status Date / Time cyclobenzaprine Allergy Severe Dizziness, Verified 12/24/24 17:41 [From Flexeril] I bounce off ag ibuprofen AdvReac Intermediate Redness of Verified 12/24/24 17:41 Skin acetaminophen [ACETAMINOPHEN] AdvReac Unknown Can't take Verified 12/24/24 17:41 r/t Hep C; upset stomach Review of Systems Review of Systems Narrative: General: Denies fever, chills, weight loss HEENT: Denies headache, eye drainage, eye irritation, head trauma, sore throat, voice change Cardiovascular: Denies any chest pain, palpitations, tachycardia Respiratory: Denies any shortness of breath, cough, wheeze, stridor GI/: Denies any abdominal pain, nausea, vomiting, diarrhea, bright red blood per rectum, melanotic stools, urinary frequency, urinary retention, dysuria, hematuria MSK: Denies any joint pain, muscle pains, swelling Skin: Positive rash/itchiness Neuro: Denies any headache, lightheadedness, dizziness, fainting, weakness Psych: Denies SI/HI Patient History Medical History Dermatitis Folliculitis Thrush GERD (gastroesophageal reflux disease) Hyponatremia Bronchitis Impaired cognition Left knee pain Chronic diarrhea Eustachian tube dysfunction Seasonal allergic rhinitis Dyspepsia Anemia Tinea Abdominal wall pain in both lower quadrants Constipation Aftercare following left shoulder joint replacement surgery Preoperative clearance Left lateral epicondylitis Adhesive capsulitis Right wrist sprain Oral lesion Colles' fracture Right wrist pain Left shoulder strain Anxiety Fibromyalgia Sinus drainage Chronic ankle pain, bilateral Rheumatoid arthritis Acute exacerbation of chronic bronchitis Foraminal stenosis of lumbar region Peripheral neuropathy Pneumonia (~2018) Impotence (Unknown) Restless leg syndrome (Unknown) Arthritis (Unknown) Chronic pain syndrome (Unknown) Kidney stones (Unknown) Prostate cancer (Unknown) Skin cancer (Unknown) Hepatitis C (Unknown) Hypertension (Unknown) Migraines (Unknown) PTSD (post-traumatic stress disorder) (Unknown) Depression (Unknown) Surgical History S/P lumbar fusion History of lumbar fusion (05/10/22) History of ankle surgery 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 Social History marital status: household members: spouse lives independently: Yes occupational status: previously employed Smoking Status: Former smoker Tobacco: How many years used: 20 quit status: has quit before alcohol intake: former substance use type: former substance user and marijuana Smoking Status: Former smoker tobacco type: cigarettes alcohol intake frequency: holidays/special occasions only Exam Narrative Exam Narrative: General: Cooperative, comfortable, well-developed, not in acute distress HEENT: Normocephalic, atraumatic, PERRLA, normal sclera, eyelids normal, Neck: Active full range of motion, atraumatic Chest: Normal to inspection, negative crepitus, no overlying erythema ecchymosis Respiratory: Normal respiratory effort, not in acute respiratory distress, clear to auscultation bilaterally negative cough, wheeze, tachypnea, rhonchi, rales Cardiology: Regular rate rhythm negative gallop, murmur, rubs GI/: Normal to inspection, soft, nonrigid, no tenderness to palpation, exam deferred MSK: Full range of active range of motion of all 4 extremities, atraumatic Skin: No obvious rashes noted but there does appear to be scattered dry spots noted to patient's bilateral upper extremity and chest and trunk, there is no involvement of the mucosal membrane palms of the hands or soles of the feet Neuro: Alert awake oriented x3, moves all 4 extremities spontaneously, cranial nerves intact, able to answer all questions appropriately follows commands appropriately Psych: Cooperative, negative suicidal or homicidal ideations Initial Vital Signs Initial Vital Signs: Vital Signs Temperature 98.6 F 12/24/24 17:36 Pulse Rate 76 12/24/24 17:36 Respiratory Rate 18 12/24/24 17:36 Blood Pressure 169/102 H 12/24/24 17:36 Pulse Oximetry 99 12/24/24 17:36 Oxygen Delivery Method Room Air 12/24/24 17:36 Course Vital Signs Vital signs: Vital Signs - 8 hr 12/24/24 17:36 Temperature 98.6 F Pulse Rate 76 Respiratory Rate 18 Blood Pressure 169/102 H Pulse Oximetry 99 Oxygen Delivery Method Room Air MDM - Skin/Abscess/Foreign Bdy Differential Diagnosis Differential diagnosis: Likely viral exanthem, urticaria, cellulitis, contact dermatitis and other (Atopic dermatitis) MDM Narrative Medical decision making narrative: 79-year-old male presenting for recurrent dry skin/rash/itchiness to his extremities and his trunk states it has been ongoing intermittent for the past several months did see his primary care doctor and research and development manager a few weeks ago had improvement of the symptoms after taking these medications however he states that he has run out/can not find them he states that today his symptoms were unbearable and decided come into the ED for further evaluation treatment. On exam there is no appreciable rash but dry spots noted to his extremities as well as his truncal region there is no involvement of the mucosal membrane palms of the hands or soles of the feet. I did review patient's paperwork of his research and development manager, Dr. Snell. Patient with diagnosis of folliculitis and eczema, he was discharged home with triamcinoline acetonide 0.5%, mupirocin 2%, antihistamines steroids for his symptoms. I will give patient dose of antihistamines steroids here we will send him home with new prescription for mupirocin and triamcinolone, I instructed patient to follow up with his primary care doctor in his research and development manager again for continued treatment of his symptoms he verbalized understanding of this and agrees with being discharged home with outpatient follow up Discharge Plan Departure Patient Disposition: Home Clinical Impression: Generalized pruritus Activity Restrictions/Additional Instructions: Please follow up with your primary care doctor and research and development manager Please read the discharge instructions sheet carefully and bring all papers to all doctor follow-up visits, as it may contain information that your doctor may want to see. Disease processes change and evolve, if your symptoms worsen or if you develop any new symptoms that are concerning to you please return for evaluation. Your evaluation today does not show any evidence of any life-threatening/serious illnesses requiring admission to the hospital or surgery. Please follow-up with your doctor for re-evaluation in approximately 1 day. Seek immediate medical attention for any worrisome symptoms. *If you do not have a primary care provider please contact the [facility] Resource line at [phone]. They will ask some questions about your medical history and help get you set up with a doctor in the community. Prescriptions: New mupirocin 2 % ointment 1 applic topical BID Qty: 22 0RF triamcinolone acetonide 0.5 % ointment 1 applic topical BID Qty: 15 0RF No Action albuterol sulfate 90 mcg/actuation HFA aerosol inhaler 2 puff inhalation Q4-6H PRN (Reason: shortness of breath or wheezing) Qty: 6.7 0RF ipratropium bromide 17 mcg/actuation HFA aerosol inhaler 2 puff inhalation QID Qty: 12.9 0RF albuterol sulfate 2.5 mg /3 mL (0.083 %) solution for nebulization 2.5 mg Continuous Nebulization Q6HP PRN (Reason: shortness of breath or wheezing) Qty: 360 2RF sulfasalazine 500 mg tablet 1,000 mg PO BID Qty: 180 1RF cholecalciferol (vitamin D3) 1,250 mcg (50,000 unit) capsule 1,250 mcg PO QWEEK Qty: 12 0RF ascorbic acid (vitamin C) 500 mg tablet 500 mg PO DAILY Qty: 90 0RF Rx Instructions: Take with iron mecobalamin (vitamin B12) [B12 Active] 1,000 mcg tablet,chewable 1,000 mcg PO DAILY Qty: 90 3RF fluoxetine 20 mg capsule 20 mg PO DAILY Qty: 90 3RF Rx Instructions: Take with 10 mg to complete 30 mg dose fluoxetine 10 mg capsule See Rx Instructions .ROUTE .COMPLEX Qty: 90 3RF Dose Instruction: take 1 capsule by mouth once daily WITH 20MG CAP DAILY TOTAL 30 MG DAILY Rx Instructions: take 1 capsule by mouth once daily WITH 20MG CAP DAILY TOTAL 30 MG DAILY methocarbamol 750 mg tablet 750 mg PO QID 30 Days Qty: 120 2RF metoprolol succinate 100 mg tablet extended release 24 hr 100 mg PO DAILY Qty: 90 3RF duloxetine [Cymbalta] 30 mg capsule,delayed release(DR/EC) 30 mg PO DAILY Qty: 30 1RF prednisone 5 mg tablet 5 mg PO DAILY Qty: 30 5RF Rx Instructions: start taking every day ferrous gluconate 324 mg (37.5 mg iron) tablet 324 mg PO DAILY Qty: 90 2RF Rx Instructions: start taking daily, with food or juice omeprazole 40 mg capsule,delayed release(DR/EC) 40 mg PO DAILY Qty: 90 3RF Rx Instructions: take 1 capsule by mouth once daily clotrimazole 10 mg tracy 10 mg mucous membrane 5XD Qty: 30 1RF cephalexin 500 mg capsule 500 mg PO TID Qty: 21 0RF clobetasol 0.05 % solution topical BID prednisone 50 mg tablet 50 mg PO DAILY Qty: 10 0RF hydromorphone 2 mg tablet 2 mg PO BEDTIME PRN (Reason: pain) Qty: 30 0RF Rx Instructions: Must last 30 days until December 13, 2024 oxycodone 10 mg tablet 10 mg PO Q8H PRN (Reason: pain) Qty: 90 0RF Rx Instructions: Must last 30 days, December 13 2024 nortriptyline 10 mg capsule 10 mg PO BEDTIME Qty: 30 1RF zolmitriptan [Zomig] 5 mg tablet See Rx Instructions PO .COMPLEX Qty: 10 1RF Rx Instructions: take 1 tab at onset of headache; if no relief, may repeat 1 tab after at least 2 hrs; max = 2 tabs/24 hrs PO lidocaine 5 % adhesive patch,medicated 1 patch topical DAILY Qty: 15 2RF Rx Instructions: leave on most painful area for up to 12 hrs mupirocin 2 % ointment 1 applic topical BID Qty: 22 1RF triamcinolone acetonide 0.5 % cream 1 applic topical BID Qty: 15 1RF Rx Instructions: Applied to affected areas potassium chloride 20 mEq tablet extended release 20 meq PO BID Qty: 10 0RF valacyclovir 1 gram tablet 1,000 mg PO TID Qty: 30 0RF meclizine 25 mg tablet 25 mg PO TID PRN (Reason: dizziness) Qty: 10 0RF ondansetron HCl 4 mg tablet 4 mg PO Q6H PRN (Reason: nausea and vomiting) Qty: 10 0RF naloxone [Narcan] 4 mg/actuation spray,non-aerosol 1 spray intranasal Q2M Qty: 2 0RF Rx Instructions: spray 1 dose into ONE nostril; alternate nostrils w each dose until help arrives Disabled Parking Permit 1 1 % SEEINSTR Rx Instructions: Valid for 5 years amlodipine 5 mg tablet 5 mg PO DAILY Patient Comments: pt received dose in hospital 11/10/19 early AM admit to AC hydrochlorothiazide 25 mg tablet 12.5 mg PO QAM ipratropium-albuterol 0.5 mg-3 mg(2.5 mg base)/3 mL solution for nebulization 3 ml inhalation Q6H PRN (Reason: shortness of breath or wheezing) Qty: 90 0RF aspirin [Enteric Coated Aspirin] 81 mg tablet,delayed release (DR/EC) 81 mg PO DAILY Qty: 30 0RF nitroglycerin 0.4 mg tablet, sublingual 0.4 mg sublingual Q5M PRN (Reason: chest pain) Qty: 10 0RF Rx Instructions: do not exceed 3 doses per episode Referrals: Edilberto Snell, [Primary Care Provider] - Stand Alone Forms: Patient Portal/API/Survey
[2024-12-24] MEDS: predniSONE 20 MG TABLET PO (21:23)
[2024-12-24] MEDS: diphenhydrAMINE 25 MG TABLET PO (21:23)
[2024-12-24 21:29] VITALS: BP 163/96; PULSE 74; RESP 16; O2SAT 98
== END 2024-12-24 21:32 | disposition home or self-care (01) ==
PROVIDERS: Emergency Provider Student in an Organized Health Care Education/Training Program; PCP Family Medicine
DX: L29.9 Pruritus, unspecified (principal)
CPT/HCPCS: 99283

== ENCOUNTER → 2024-12-25 12:48 | Outpatient (CLI) | payer MEDICARE, OTHER, SELFPAY ==
[2024-02-02 03:27] VITALS: BMI 29.4
[2024-12-25 13:45] LABS: Add Manual Diff / Slide Review NO; Basophils Absolute Auto 100 /uL (0-100); Basophils Percent Auto 0.9 % (0-2); Eosinophils Absolute Auto 300 /uL (0-450); Eosinophils Percent Auto 2.5 % (2-4); Hematocrit 36.6 % (41-53); Hemoglobin 12.5 g/dL (13.5-17.5); Lymphocytes Absolute Auto 1900 /uL (1100-4500); Lymphocytes Percent Auto 18.4 % (25-40); Mean Corpuscular HGB Conc 34.1 % (30-36); Mean Corpuscular Volume 84.9 fL (80-100); Monocytes Absolute Auto 1000 /uL (0-900); Neutrophils Absolute Auto 7100 /uL (1500-7000); Neutrophils Percent Auto 68.2 % (50-75); Platelet Count 255 X10^3/uL (150-400); Red Blood Cell Count 4.31 X10^6/uL (4.5-5.9); White Blood Cell Count 10.4 X10^3/uL (4.5-11.0)
[2024-12-25 14:09] LABS: Alanine Aminotransferase 21 IU/L (<50); Albumin 3.7 g/dL (3.5-5.0); Albumin Globulin Ratio 1.4 (1.0-2.8); Alkaline Phosphatase 87 U/L (38-126); Aspartate Aminotransferase 30 IU/L (17-59); BUN Creatinine Ratio 16.7 (6-22); Bilirubin Total 0.4 mg/dL (0.2-1.3); Blood Urea Nitrogen 11 mg/dL (9-20); Calcium 8.5 mg/dL (8.4-10.2); Carbon Dioxide 23 mmol/L (22-32); Chloride 101 mmol/L (98-107); Estimated Glomerular Filt Rate > 60 mL/min (>60); Globulin 2.6 g/dL (1.7-4.1); Glucose 123 mg/dL (80-110); HEMOLYSIS 16 (0-50); Sodium 137 mmol/L (137-145); Total Protein 6.3 g/dL (6.3-8.2)
[2024-12-25 14:25] LABS: Free T4, Direct Thyroxine 1.04 ng/dL (0.78-2.19)
[2024-12-25 14:39] LABS: Thyroid Stimulating Hormone 1.17 uIU/mL (0.47-4.68)
[2024-12-28 14:36] LABS: Albumin 3.4 g/dL (2.9-4.4); Alpha-1-Globulin 0.3 g/dL (0.0-0.4); Alpha-2-Globulin 0.8 g/dL (0.4-1.0); Gamma Globulin 1.1 g/dL (0.4-1.8); Globulin Total 3.1 g/dL (2.2-3.9); Protein, Total 6.5 g/dL (6.0-8.5)
[2024-12-29 12:36] LABS: ANA Screen, IFA Negative (.)
== END ==
PROVIDERS: PCP Family Medicine; Referring Provider Dermatology; Visit Provider Dermatology
DX: R21 Rash and other nonspecific skin eruption (principal)
CPT/HCPCS: 36415; 80053; 84155; 84165; 84439; 84443; 85025; 86038

== ENCOUNTER 2024-12-28 15:03 | Emergency (ER) | payer MEDICARE, OTHER, SELFPAY ==
[2024-02-02 03:27] VITALS: BMI 29.4
[2024-12-28 15:22] VITALS: BP 136/59; PULSE 69; RESP 20; TEMP 36.5; O2SAT 98; BMI 29.7
--- NOTE | 2024-12-28 15:51 | ED_ITS ---
HPI - Headache <Steve Gloria PA-C - Last Filed: 12/28/24 17:25> General Chief Complaint: Headache Stated Complaint: Migraine, nausea Time Seen by Provider: 12/28/24 15:35 Mode of arrival: Wheelchair History of Present Illness HPI Narrative: 79-year-old male presents to the ED with a severe migraine for 2 hours. Patient does have a history of migraines. Patient also endorses nausea. No vomiting. No vision changes. Patient states that his headache is similar to his prior migraines, just very severe. No chest pain, shortness of breath, fever, chills, lightheadedness, dizziness, syncope. Patient has not taken any medications for the headache. Related Data Home Medications Medication Instructions Recorded Confirmed Disabled Parking Permit 1 % SEEINSTR 11/08/20 12/11/24 amlodipine 5 mg tablet 5 mg PO DAILY 11/08/22 12/11/24 hydrochlorothiazide 25 mg tablet 12.5 mg PO QAM 11/15/22 12/11/24 clobetasol 0.05 % scalp solution topical BID 12/11/24 12/11/24 Previous Rx's Medication Instructions Recorded albuterol sulfate 2.5 mg/3 mL 2.5 mg (3 mL) continuous 10/24/22 (0.083 %) solution for nebulization nebulization Q6HP PRN shortness of breath or wheezing #360 mL potassium chloride 20 mEq 20 meq PO BID #10 tabs 02/26/23 tablet,extended release ipratropium 0.5 mg-albuterol 3 mg 3 ml inhalation Q6H PRN shortness 03/19/23 (2.5 mg base)/3 mL nebulization of breath or wheezing #90 mL soln valacyclovir 1 gram tablet 1,000 mg PO TID #30 tabs 09/02/23 sulfasalazine 500 mg tablet 1,000 mg (2 x 500 mg) PO BID #180 11/28/23 tabs ascorbic acid (vitamin C) 500 mg 500 mg PO DAILY #90 tabs 12/13/23 tablet cholecalciferol (vitamin D3) 1,250 1,250 mcg PO QWEEK #12 caps 12/13/23 mcg (50,000 unit) capsule nortriptyline 10 mg capsule 10 mg PO BEDTIME #30 caps 12/17/23 zolmitriptan 5 mg tablet (Zomig) See Rx Instructions PO .COMPLEX 12/17/23 #10 tabs meclizine 25 mg tablet 25 mg PO TID PRN dizziness #10 tabs 01/23/24 mecobalamin (vitamin B12) 1,000 1,000 mcg PO DAILY #90 tabs 02/11/24 mcg chewable tablet (B12 Active) fluoxetine 10 mg capsule See Rx Instructions .Route 04/20/24 .COMPLEX #90 caps fluoxetine 20 mg capsule 20 mg PO DAILY #90 caps 04/20/24 prednisone 5 mg tablet 5 mg PO DAILY #30 tabs 06/22/24 naloxone 4 mg/actuation nasal 1 spray intranasal Q2M #2 ea 08/05/24 spray (Narcan) ondansetron HCl 4 mg tablet 4 mg PO Q6H PRN nausea and 08/05/24 vomiting #10 tabs methocarbamol 750 mg tablet 750 mg PO QID 30 days #120 tabs 08/17/24 aspirin 81 mg tablet,delayed 81 mg PO DAILY #30 tabs 08/18/24 release (Enteric Coated Aspirin) nitroglycerin 0.4 mg sublingual 0.4 mg sublingual Q5M PRN chest 08/18/24 tablet pain #10 tabs lidocaine 5 % topical patch 1 patch topical DAILY #15 ea 09/29/24 albuterol sulfate 90 mcg/actuation 2 puff inhalation Q4-6H PRN 10/12/24 aerosol inhaler shortness of breath or wheezing #6.7 grams ipratropium bromide 17 2 puff inhalation QID #12.9 grams 10/12/24 mcg/actuation HFA aerosol inhaler metoprolol succinate 100 mg 100 mg PO DAILY #90 tabs 10/15/24 tablet,extended release 24 hr cephalexin 500 mg capsule 500 mg PO TID #21 caps 11/03/24 clotrimazole 10 mg tracy 10 mg mucous membrane 5XD #30 tabs 11/03/24 ferrous gluconate 324 mg (37.5 mg 324 mg PO DAILY #90 tabs 11/03/24 iron) tablet omeprazole 40 mg capsule,delayed 40 mg PO DAILY #90 caps 11/03/24 release duloxetine 30 mg capsule,delayed 30 mg PO DAILY #30 caps 11/10/24 release (Cymbalta) mupirocin 2 % topical ointment 1 applic topical BID #22 grams 12/04/24 triamcinolone acetonide 0.5 % 1 applic topical BID #15 grams 12/04/24 topical cream hydromorphone 2 mg tablet 2 mg PO BEDTIME PRN pain #30 tabs 12/11/24 oxycodone 10 mg tablet 10 mg PO Q8H PRN pain #90 tabs 12/11/24 prednisone 50 mg tablet 50 mg PO DAILY #10 tabs 12/11/24 mupirocin 2 % topical ointment 1 applic topical BID #22 grams 12/24/24 triamcinolone acetonide 0.5 % 1 applic topical BID #15 grams 12/24/24 topical ointment Allergies Allergy/AdvReac Type Severity Reaction Status Date / Time cyclobenzaprine Allergy Severe Dizziness, Verified 12/24/24 17:41 [From Flexeril] I bounce off ag ibuprofen AdvReac Intermediate Redness of Verified 12/24/24 17:41 Skin acetaminophen [ACETAMINOPHEN] AdvReac Unknown Can't take Verified 12/24/24 17:41 r/t Hep C; upset stomach Review of Systems <Steve Gloria PA-C - Last Filed: 12/28/24 17:25> Constitutional Constitutional: Denies chills, Denies fatigue, Denies fever(s), Denies frequent falls, Reports headache(s), Denies lethargy and Denies weakness Eyes Eyes: Denies change in vision, Denies eye discharge, Denies irritation and Denies loss of vision ENT Ears, Nose, Mouth, and Throat: Denies change in voice, Denies dizziness, Reports headache(s), Denies neck pain, Denies sore throat and Denies throat swelling Cardiovascular Cardiovascular: Denies chest pain, Denies irregular heart rhythm, Denies lightheadedness, Denies palpitations, Denies dyspnea, Denies dyspnea on exertion and Denies orthopnea Respiratory Respiratory: Denies cough, Denies dyspnea, Denies dyspnea on exertion and Denies wheezing Gastrointestinal Gastrointestinal: Denies abdominal pain, Denies change in bowel habits, Denies diarrhea, Reports nausea and Denies vomiting Musculoskeletal Musculoskeletal: Denies neck pain and Denies numbness Integumentary/Breasts Skin/Breast: Denies pruritus, Denies erythema, Denies rash and Denies wounds Neurologic Neurologic: Denies behavioral changes, Denies confusion, Denies dizziness, Denies frequent falls, Reports headache(s), Denies loss of vision, Denies numbness and Denies weakness Psychiatric Psychiatric: Denies anxiety, Denies behavioral changes, Denies confusion, Denies depression, Denies homicidal ideation and Denies suicidal ideation Endocrine Endocrine: Denies fatigue, Denies flushing and Denies palpitations Hematologic/Lymphatic Hematologic/Lymphatic: Denies easy bruising Allergic/Immunologic Allergic/Immunologic: Denies urticaria, Denies throat swelling and Denies wheezing Patient History <Steve Gloria PA-C - Last Filed: 12/28/24 17:25> Medical History Dermatitis Folliculitis Thrush GERD (gastroesophageal reflux disease) Hyponatremia Bronchitis Impaired cognition Left knee pain Chronic diarrhea Eustachian tube dysfunction Seasonal allergic rhinitis Dyspepsia Anemia Tinea Abdominal wall pain in both lower quadrants Constipation Aftercare following left shoulder joint replacement surgery Preoperative clearance Left lateral epicondylitis Adhesive capsulitis Right wrist sprain Oral lesion Colles' fracture Right wrist pain Left shoulder strain Anxiety Fibromyalgia Sinus drainage Chronic ankle pain, bilateral Rheumatoid arthritis Acute exacerbation of chronic bronchitis Foraminal stenosis of lumbar region Peripheral neuropathy Pneumonia (~2018) Impotence (Unknown) Restless leg syndrome (Unknown) Arthritis (Unknown) Chronic pain syndrome (Unknown) Kidney stones (Unknown) Prostate cancer (Unknown) Skin cancer (Unknown) Hepatitis C (Unknown) Hypertension (Unknown) Migraines (Unknown) PTSD (post-traumatic stress disorder) (Unknown) Depression (Unknown) Surgical History S/P lumbar fusion History of lumbar fusion (05/10/22) History of ankle surgery 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 Social History marital status: household members: spouse lives independently: Yes occupational status: previously employed Smoking Status: Former smoker Tobacco: How many years used: 20 quit status: has quit before alcohol intake: former substance use type: former substance user and marijuana Smoking Status: Former smoker tobacco type: cigarettes alcohol intake frequency: holidays/special occasions only Exam <Steve Gloria PA-C - Last Filed: 12/28/24 17:25> Narrative Exam Narrative: Const General:?cooperative, healthy appearing and comfortable [facility] Head:?normal to inspection Ears:?hearing grossly normal bilaterally Nose:?external nose normal Face and sinus:?normal facial exam and sinuses nontender Mouth:?oral mucosae normal Throat:?posterior oropharynx normal Eyes General:?appearance normal, both eyes and all related structures Neck Neck:?normal visual inspection and no lymphadenopathy noted Resp Effort & Inspection:?normal respiratory effort Auscultation:?clear to auscultation bilaterally Cardio Rate:?regular rate Rhythm:?regular rhythm Neuro General:?patient alert, patient awake and patient oriented x3; PERLLA; CN 2-12 intact bilaterally; Neurologically intact Initial Vital Signs Initial Vital Signs: Vital Signs Temperature 97.7 F 12/28/24 15:22 Pulse Rate 69 12/28/24 15:22 Respiratory Rate 20 12/28/24 15:22 Blood Pressure 136/59 L 12/28/24 15:22 Pulse Oximetry 98 12/28/24 15:22 Oxygen Delivery Method Room Air 12/28/24 15:22 <Marlon Anderson MD - Last Filed: 12/28/24 21:15> Initial Vital Signs Initial Vital Signs: Vital Signs Temperature 97.7 F 12/28/24 15:22 Pulse Rate 69 12/28/24 15:22 Respiratory Rate 20 12/28/24 15:22 Blood Pressure 136/59 L 12/28/24 15:22 Pulse Oximetry 98 12/28/24 15:22 Oxygen Delivery Method Room Air 12/28/24 15:22 Course <Steve Gloria PA-C - Last Filed: 12/28/24 17:25> Orders Ordered: Discontinued Medications Diphenhydramine HCl (Diphenhydramine 50 Mg/Ml Vial) 25 mg IV NOW ONE Stop: 12/28/24 15:36 Last Admin: 12/28/24 16:37 Dose: 25 mg Documented By: RB Sodium Chloride (Normal Saline 0.9%) 1,000 mls @ 1,000 mls/hr IV BOLUS ONE Stop: 12/28/24 16:34 Last Infusion: 12/28/24 17:20 Dose: Infused Documented By: Admin: 12/28/24 16:37 Dose: 1,000 mls/hr Documented By: RB Acetaminophen (Ofirmev) 1,000 mg in 100 mls @ 400 mls/hr IV NOW ONE Stop: 12/28/24 15:53 Last Infusion: 12/28/24 17:05 Dose: Infused Documented By: Admin: 12/28/24 16:37 Dose: 400 mls/hr Documented By: RB Ketorolac Tromethamine (Ketorolac 30 Mg/Ml Vial) 15 mg IV NOW ONE Stop: 12/28/24 15:36 Last Admin: 12/28/24 16:36 Dose: 15 mg Documented By: RB Metoclopramide HCl (Metoclopramide 10 Mg/2 Ml Inj) 10 mg IV NOW ONE Stop: 12/28/24 15:36 Last Admin: 12/28/24 16:36 Dose: 10 mg Documented By: RB Vital Signs Vital signs: Vital Signs - 8 hr 12/28/24 15:22 12/28/24 17:33 Temperature 97.7 F 98.1 F Pulse Rate 69 80 Respiratory Rate 20 20 Blood Pressure 136/59 L 134/64 Pulse Oximetry 98 96 Oxygen Delivery Method Room Air Room Air <Marlon Anderson MD - Last Filed: 12/28/24 21:15> Orders Ordered: Discontinued Medications Diphenhydramine HCl (Diphenhydramine 50 Mg/Ml Vial) 25 mg IV NOW ONE Stop: 12/28/24 15:36 Last Admin: 12/28/24 16:37 Dose: 25 mg Documented By: RB Sodium Chloride (Normal Saline 0.9%) 1,000 mls @ 1,000 mls/hr IV BOLUS ONE Stop: 12/28/24 16:34 Last Infusion: 12/28/24 17:20 Dose: Infused Documented By: Admin: 12/28/24 16:37 Dose: 1,000 mls/hr Documented By: RB Acetaminophen (Ofirmev) 1,000 mg in 100 mls @ 400 mls/hr IV NOW ONE Stop: 12/28/24 15:53 Last Infusion: 12/28/24 17:05 Dose: Infused Documented By: Admin: 12/28/24 16:37 Dose: 400 mls/hr Documented By: RB Ketorolac Tromethamine (Ketorolac 30 Mg/Ml Vial) 15 mg IV NOW ONE Stop: 12/28/24 15:36 Last Admin: 12/28/24 16:36 Dose: 15 mg Documented By: RB Metoclopramide HCl (Metoclopramide 10 Mg/2 Ml Inj) 10 mg IV NOW ONE Stop: 12/28/24 15:36 Last Admin: 12/28/24 16:36 Dose: 10 mg Documented By: RB Vital Signs Vital signs: Vital Signs - 8 hr 12/28/24 15:22 12/28/24 17:33 Temperature 97.7 F 98.1 F Pulse Rate 69 80 Respiratory Rate 20 20 Blood Pressure 136/59 L 134/64 Pulse Oximetry 98 96 Oxygen Delivery Method Room Air Room Air MDM - Headache <Steve Gloria PA-C - Last Filed: 12/28/24 17:25> MDM Narrative Medical decision making narrative: 79-year-old male presents to the ED with a severe migraine for 2 hours. Patient does have a history of migraines. Physical exam is reassuring, patient is neurologically intact. Concern for primary headache. Will give medications, reassess. Patient had significant relief from the medications. Safe for discharge. ED return precautions discussed with patient. Patient verbalized understanding. Medical records reviewed: Yes Discharge Plan Departure Patient Disposition: Home Clinical Impression: Headache Qualifiers: Headache type: unspecified Headache chronicity pattern: acute headache Intractability: not intractable Qualified Code(s): R51.9 - Headache, unspecified Instructions: DI for Headache Activity Restrictions/Additional Instructions: You were evaluated in the emergency department for a headache. You were given some medications which improved your headache. Please continue to drink lots of water. Please follow-up with your primary care doctor as soon as possible. Return to the ED if you have worsening symptoms. Prescriptions: No Action albuterol sulfate 90 mcg/actuation HFA aerosol inhaler 2 puff inhalation Q4-6H PRN (Reason: shortness of breath or wheezing) Qty: 6.7 0RF ipratropium bromide 17 mcg/actuation HFA aerosol inhaler 2 puff inhalation QID Qty: 12.9 0RF albuterol sulfate 2.5 mg /3 mL (0.083 %) solution for nebulization 2.5 mg Continuous Nebulization Q6HP PRN (Reason: shortness of breath or wheezing) Qty: 360 2RF sulfasalazine 500 mg tablet 1,000 mg PO BID Qty: 180 1RF cholecalciferol (vitamin D3) 1,250 mcg (50,000 unit) capsule 1,250 mcg PO QWEEK Qty: 12 0RF ascorbic acid (vitamin C) 500 mg tablet 500 mg PO DAILY Qty: 90 0RF Rx Instructions: Take with iron mecobalamin (vitamin B12) [B12 Active] 1,000 mcg tablet,chewable 1,000 mcg PO DAILY Qty: 90 3RF fluoxetine 20 mg capsule 20 mg PO DAILY Qty: 90 3RF Rx Instructions: Take with 10 mg to complete 30 mg dose fluoxetine 10 mg capsule See Rx Instructions .ROUTE .COMPLEX Qty: 90 3RF Dose Instruction: take 1 capsule by mouth once daily WITH 20MG CAP DAILY TOTAL 30 MG DAILY Rx Instructions: take 1 capsule by mouth once daily WITH 20MG CAP DAILY TOTAL 30 MG DAILY methocarbamol 750 mg tablet 750 mg PO QID 30 Days Qty: 120 2RF metoprolol succinate 100 mg tablet extended release 24 hr 100 mg PO DAILY Qty: 90 3RF duloxetine [Cymbalta] 30 mg capsule,delayed release(DR/EC) 30 mg PO DAILY Qty: 30 1RF prednisone 5 mg tablet 5 mg PO DAILY Qty: 30 5RF Rx Instructions: start taking every day ferrous gluconate 324 mg (37.5 mg iron) tablet 324 mg PO DAILY Qty: 90 2RF Rx Instructions: start taking daily, with food or juice omeprazole 40 mg capsule,delayed release(DR/EC) 40 mg PO DAILY Qty: 90 3RF Rx Instructions: take 1 capsule by mouth once daily clotrimazole 10 mg tracy 10 mg mucous membrane 5XD Qty: 30 1RF cephalexin 500 mg capsule 500 mg PO TID Qty: 21 0RF clobetasol 0.05 % solution topical BID prednisone 50 mg tablet 50 mg PO DAILY Qty: 10 0RF hydromorphone 2 mg tablet 2 mg PO BEDTIME PRN (Reason: pain) Qty: 30 0RF Rx Instructions: Must last 30 days until December 13, 2024 oxycodone 10 mg tablet 10 mg PO Q8H PRN (Reason: pain) Qty: 90 0RF Rx Instructions: Must last 30 days, December 13 2024 nortriptyline 10 mg capsule 10 mg PO BEDTIME Qty: 30 1RF zolmitriptan [Zomig] 5 mg tablet See Rx Instructions PO .COMPLEX Qty: 10 1RF Rx Instructions: take 1 tab at onset of headache; if no relief, may repeat 1 tab after at least 2 hrs; max = 2 tabs/24 hrs PO lidocaine 5 % adhesive patch,medicated 1 patch topical DAILY Qty: 15 2RF Rx Instructions: leave on most painful area for up to 12 hrs mupirocin 2 % ointment 1 applic topical BID Qty: 22 1RF triamcinolone acetonide 0.5 % cream 1 applic topical BID Qty: 15 1RF Rx Instructions: Applied to affected areas potassium chloride 20 mEq tablet extended release 20 meq PO BID Qty: 10 0RF valacyclovir 1 gram tablet 1,000 mg PO TID Qty: 30 0RF meclizine 25 mg tablet 25 mg PO TID PRN (Reason: dizziness) Qty: 10 0RF ondansetron HCl 4 mg tablet 4 mg PO Q6H PRN (Reason: nausea and vomiting) Qty: 10 0RF naloxone [Narcan] 4 mg/actuation spray,non-aerosol 1 spray intranasal Q2M Qty: 2 0RF Rx Instructions: spray 1 dose into ONE nostril; alternate nostrils w each dose until help arrives mupirocin 2 % ointment 1 applic topical BID Qty: 22 0RF triamcinolone acetonide 0.5 % ointment 1 applic topical BID Qty: 15 0RF Disabled Parking Permit 1 1 % SEEINSTR Rx Instructions: Valid for 5 years amlodipine 5 mg tablet 5 mg PO DAILY Patient Comments: pt received dose in hospital 11/10/19 early AM admit to hydrochlorothiazide 25 mg tablet 12.5 mg PO QAM ipratropium-albuterol 0.5 mg-3 mg(2.5 mg base)/3 mL solution for nebulization 3 ml inhalation Q6H PRN (Reason: shortness of breath or wheezing) Qty: 90 0RF aspirin [Enteric Coated Aspirin] 81 mg tablet,delayed release (DR/EC) 81 mg PO DAILY Qty: 30 0RF nitroglycerin 0.4 mg tablet, sublingual 0.4 mg sublingual Q5M PRN (Reason: chest pain) Qty: 10 0RF Rx Instructions: do not exceed 3 doses per episode Referrals: Edilberto Snell DO [Primary Care Provider] - Stand Alone Forms: Patient Portal/API/Survey ED Sign-out <Marlon Anderson MD - Last Filed: 12/28/24 21:15> Cosign ED Attending Cosignature Attestation: I was immediately available in the department for consultation. This documentation has been reviewed and I agree with assessment and plan. Supervised by Marlon Anderson MD
[2024-12-28] MEDS: KETOROLAC 30 MG/ML VIAL 15 MG IV (16:36)
[2024-12-28] MEDS: METOCLOPRAMIDE 10 MG/2 ML INJ IV (16:36)
[2024-12-28] MEDS: SODIUM CHLORIDE 0.9% 1,000 ML 1000 ML IV (16:37)
[2024-12-28] MEDS: diphenhydrAMINE 50 MG/ML VIAL 25 MG IV (16:37)
[2024-12-28] MEDS: ACETAMINOPHEN IV 1,000 MG/100 ML VIAL 400 MG IV (16:37)
[2024-12-28 17:33] VITALS: BP 134/64; PULSE 80; RESP 20; TEMP 36.7; O2SAT 96
== END 2024-12-28 17:34 | disposition home or self-care (01) ==
PROVIDERS: Emergency Provider Student in an Organized Health Care Education/Training Program; PCP Family Medicine
DX: R51.9 Headache, unspecified (principal)
CPT/HCPCS: 36415; 96365; 96375; 99284; J0131; J1200; J1885; J2765

== ENCOUNTER 2024-12-29 16:29 | Emergency (ER) | payer MEDICARE, OTHER, SELFPAY ==
[2024-02-02 03:27] VITALS: BMI 29.4
[2024-12-29 16:31] VITALS: BP 188/89; PULSE 90; RESP 18; TEMP 36.1; O2SAT 98; BMI 29.7
--- NOTE | 2024-12-29 16:34 | DI.RAD.S_ITS ---
PROCEDURE: XR KNEE LT 3V INDICATIONS: fall onto left knee, felt a pop TECHNIQUE: 3 views of the knee were acquired. COMPARISON: [facility], CR, XR KNEE LT 3V, 11/05/2024, 15:34. [facility], CR, XR KNEE LT 3V, 10/10/2024, 15:21. FINDINGS: Bones: No fractures or dislocations. No suspicious bony lesions. Tricompartmental joint space narrowing with associated osteophytosis. Soft tissues: No joint effusion. No suspicious soft tissue calcifications. IMPRESSION: No acute bony abnormality or significant effusion. Dictated by: Jason Hdez M.D. on 12/29/2024 at 17:07 Approved by: Jason Hdez M.D. on 12/29/2024 at 17:08
--- NOTE | 2024-12-29 17:42 | ED.FALL ---
HPI - Fall <Steve Gloria PA-C - Last Filed: 12/29/24 17:53> General Chief Complaint: Fall Stated Complaint: Fall, leg px Time Seen by Provider: 12/29/24 17:13 History of Present Illness HPI Narrative: 79-year-old male presents to the ED status post a left knee injury sustained just prior to arrival. Patient fell on the [address] entrance to the hospital while he was coming into pay the bills. It was a trip and fall accident, when he accidentally tripped on a step. Patient struck his left knee. No loss of consciousness. Patient complains of left knee pain and no other injuries. No numbness, tingling, weakness. Related Data Home Medications Medication Instructions Recorded Confirmed Disabled Parking Permit 1 % SEEINSTR 11/08/20 12/11/24 amlodipine 5 mg tablet 5 mg PO DAILY 11/08/22 12/11/24 hydrochlorothiazide 25 mg tablet 12.5 mg PO QAM 11/15/22 12/11/24 clobetasol 0.05 % scalp solution topical BID 12/11/24 12/11/24 Previous Rx's Medication Instructions Recorded albuterol sulfate 2.5 mg/3 mL 2.5 mg (3 mL) continuous 10/24/22 (0.083 %) solution for nebulization nebulization Q6HP PRN shortness of breath or wheezing #360 mL potassium chloride 20 mEq 20 meq PO BID #10 tabs 02/26/23 tablet,extended release ipratropium 0.5 mg-albuterol 3 mg 3 ml inhalation Q6H PRN shortness 03/19/23 (2.5 mg base)/3 mL nebulization of breath or wheezing #90 mL soln valacyclovir 1 gram tablet 1,000 mg PO TID #30 tabs 09/02/23 sulfasalazine 500 mg tablet 1,000 mg (2 x 500 mg) PO BID #180 11/28/23 tabs ascorbic acid (vitamin C) 500 mg 500 mg PO DAILY #90 tabs 12/13/23 tablet cholecalciferol (vitamin D3) 1,250 1,250 mcg PO QWEEK #12 caps 12/13/23 mcg (50,000 unit) capsule nortriptyline 10 mg capsule 10 mg PO BEDTIME #30 caps 12/17/23 zolmitriptan 5 mg tablet (Zomig) See Rx Instructions PO .COMPLEX 12/17/23 #10 tabs meclizine 25 mg tablet 25 mg PO TID PRN dizziness #10 tabs 01/23/24 mecobalamin (vitamin B12) 1,000 1,000 mcg PO DAILY #90 tabs 02/11/24 mcg chewable tablet (B12 Active) fluoxetine 10 mg capsule See Rx Instructions .Route 04/20/24 .COMPLEX #90 caps fluoxetine 20 mg capsule 20 mg PO DAILY #90 caps 04/20/24 prednisone 5 mg tablet 5 mg PO DAILY #30 tabs 06/22/24 naloxone 4 mg/actuation nasal 1 spray intranasal Q2M #2 ea 08/05/24 spray (Narcan) ondansetron HCl 4 mg tablet 4 mg PO Q6H PRN nausea and 08/05/24 vomiting #10 tabs methocarbamol 750 mg tablet 750 mg PO QID 30 days #120 tabs 08/17/24 aspirin 81 mg tablet,delayed 81 mg PO DAILY #30 tabs 08/18/24 release (Enteric Coated Aspirin) nitroglycerin 0.4 mg sublingual 0.4 mg sublingual Q5M PRN chest 08/18/24 tablet pain #10 tabs lidocaine 5 % topical patch 1 patch topical DAILY #15 ea 09/29/24 albuterol sulfate 90 mcg/actuation 2 puff inhalation Q4-6H PRN 10/12/24 aerosol inhaler shortness of breath or wheezing #6.7 grams ipratropium bromide 17 2 puff inhalation QID #12.9 grams 10/12/24 mcg/actuation HFA aerosol inhaler metoprolol succinate 100 mg 100 mg PO DAILY #90 tabs 10/15/24 tablet,extended release 24 hr cephalexin 500 mg capsule 500 mg PO TID #21 caps 11/03/24 clotrimazole 10 mg tracy 10 mg mucous membrane 5XD #30 tabs 11/03/24 ferrous gluconate 324 mg (37.5 mg 324 mg PO DAILY #90 tabs 11/03/24 iron) tablet omeprazole 40 mg capsule,delayed 40 mg PO DAILY #90 caps 11/03/24 release duloxetine 30 mg capsule,delayed 30 mg PO DAILY #30 caps 11/10/24 release (Cymbalta) mupirocin 2 % topical ointment 1 applic topical BID #22 grams 12/04/24 triamcinolone acetonide 0.5 % 1 applic topical BID #15 grams 12/04/24 topical cream hydromorphone 2 mg tablet 2 mg PO BEDTIME PRN pain #30 tabs 12/11/24 oxycodone 10 mg tablet 10 mg PO Q8H PRN pain #90 tabs 12/11/24 prednisone 50 mg tablet 50 mg PO DAILY #10 tabs 12/11/24 mupirocin 2 % topical ointment 1 applic topical BID #22 grams 12/24/24 triamcinolone acetonide 0.5 % 1 applic topical BID #15 grams 12/24/24 topical ointment Allergies Allergy/AdvReac Type Severity Reaction Status Date / Time cyclobenzaprine Allergy Severe Dizziness, Verified 12/24/24 17:41 [From Flexeril] I bounce off ag ibuprofen AdvReac Intermediate Redness of Verified 12/24/24 17:41 Skin acetaminophen [ACETAMINOPHEN] AdvReac Unknown Can't take Verified 12/24/24 17:41 r/t Hep C; upset stomach Review of Systems <Steve Gloria PA-C - Last Filed: 12/29/24 17:53> Constitutional Constitutional: Denies chills, Denies fatigue, Denies fever(s), Denies frequent falls, Denies lethargy and Denies weakness Eyes Eyes: Denies change in vision, Denies eye discharge, Denies irritation and Denies loss of vision ENT Ears, Nose, Mouth, and Throat: Denies change in voice, Denies dizziness, Denies neck pain, Denies sore throat and Denies throat swelling Cardiovascular Cardiovascular: Denies chest pain, Denies irregular heart rhythm, Denies lightheadedness, Denies palpitations, Denies dyspnea, Denies dyspnea on exertion and Denies orthopnea Respiratory Respiratory: Denies cough, Denies dyspnea, Denies dyspnea on exertion and Denies wheezing Gastrointestinal Gastrointestinal: Denies abdominal pain, Denies change in bowel habits, Denies diarrhea, Denies nausea and Denies vomiting Musculoskeletal Musculoskeletal: Denies neck pain and Denies numbness Comments: Left knee pain Integumentary/Breasts Skin/Breast: Denies pruritus, Denies erythema, Denies rash and Denies wounds Neurologic Neurologic: Denies behavioral changes, Denies confusion, Denies dizziness, Denies frequent falls, Denies loss of vision, Denies numbness and Denies weakness Psychiatric Psychiatric: Denies anxiety, Denies behavioral changes, Denies confusion, Denies depression, Denies homicidal ideation and Denies suicidal ideation Endocrine Endocrine: Denies fatigue, Denies flushing and Denies palpitations Hematologic/Lymphatic Hematologic/Lymphatic: Denies easy bruising Allergic/Immunologic Allergic/Immunologic: Denies urticaria, Denies throat swelling and Denies wheezing Patient History <Steve Gloria PA-C - Last Filed: 12/29/24 17:53> Medical History Dermatitis Folliculitis Thrush GERD (gastroesophageal reflux disease) Hyponatremia Bronchitis Impaired cognition Left knee pain Chronic diarrhea Eustachian tube dysfunction Seasonal allergic rhinitis Dyspepsia Anemia Tinea Abdominal wall pain in both lower quadrants Constipation Aftercare following left shoulder joint replacement surgery Preoperative clearance Left lateral epicondylitis Adhesive capsulitis Right wrist sprain Oral lesion Colles' fracture Right wrist pain Left shoulder strain Anxiety Fibromyalgia Sinus drainage Chronic ankle pain, bilateral Rheumatoid arthritis Acute exacerbation of chronic bronchitis Foraminal stenosis of lumbar region Peripheral neuropathy Pneumonia (~2018) Impotence (Unknown) Restless leg syndrome (Unknown) Arthritis (Unknown) Chronic pain syndrome (Unknown) Kidney stones (Unknown) Prostate cancer (Unknown) Skin cancer (Unknown) Hepatitis C (Unknown) Hypertension (Unknown) Migraines (Unknown) PTSD (post-traumatic stress disorder) (Unknown) Depression (Unknown) Surgical History S/P lumbar fusion History of lumbar fusion (05/10/22) History of ankle surgery 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 Social History marital status: household members: spouse lives independently: Yes occupational status: previously employed Smoking Status: Former smoker Tobacco: How many years used: 20 quit status: has quit before alcohol intake: former substance use type: former substance user and marijuana Smoking Status: Former smoker tobacco type: cigarettes alcohol intake frequency: holidays/special occasions only Exam <Steve Gloria PA-C - Last Filed: 12/29/24 17:53> Narrative Exam Narrative: Const General:?cooperative, healthy appearing and comfortable HENMT Head:?normal to inspection Ears:?hearing grossly normal bilaterally Nose:?external nose normal Face and sinus:?normal facial exam and sinuses nontender Mouth:?oral mucosae normal Throat:?posterior oropharynx normal Eyes General:?appearance normal, both eyes and all related structures Neck Neck:?normal visual inspection and no lymphadenopathy noted Resp Effort & Inspection:?normal respiratory effort Auscultation:?clear to auscultation bilaterally Cardio Rate:?regular rate Rhythm:?regular rhythm Musculoskeletal There is tenderness to palpation of the left patellar region. No swelling, erythema, bruising. Full range of motion. Neurovascularly intact. Neuro General:?patient alert, patient awake and patient oriented x3 Initial Vital Signs Initial Vital Signs: Vital Signs Temperature 96.9 F L 12/29/24 16:31 Pulse Rate 90 12/29/24 16:31 Respiratory Rate 18 12/29/24 16:31 Blood Pressure 188/89 H 12/29/24 16:31 Pulse Oximetry 98 12/29/24 16:31 Oxygen Delivery Method Room Air 12/29/24 16:31 <Bob Lugo MD - Last Filed: 12/30/24 07:52> Initial Vital Signs Initial Vital Signs: Vital Signs Temperature 96.9 F L 12/29/24 16:31 Pulse Rate 90 12/29/24 16:31 Respiratory Rate 18 12/29/24 16:31 Blood Pressure 188/89 H 12/29/24 16:31 Pulse Oximetry 98 12/29/24 16:31 Oxygen Delivery Method Room Air 12/29/24 16:31 Course <Steve Gloria PA-C - Last Filed: 12/29/24 17:53> Orders Ordered: ED Orders 12/29/24 16:34 XR knee LT 3V Stat Vital Signs Vital signs: Vital Signs - 8 hr 12/29/24 16:31 Temperature 96.9 F L Pulse Rate 90 Respiratory Rate 18 Blood Pressure 188/89 H Pulse Oximetry 98 Oxygen Delivery Method Room Air <Bob Lugo MD - Last Filed: 12/30/24 07:52> Orders Ordered: ED Orders 12/29/24 16:34 XR knee LT 3V Stat Vital Signs Vital signs: Vital Signs - 8 hr 12/29/24 16:31 Temperature 96.9 F L Pulse Rate 90 Respiratory Rate 18 Blood Pressure 188/89 H Pulse Oximetry 98 Oxygen Delivery Method Room Air MDM - Fall <Steve Gloria PA-C - Last Filed: 12/29/24 17:53> MDM Narrative Medical decision making narrative: 79-year-old male presents to the ED status post a left knee injury sustained just prior to arrival. X-ray was obtained which shows no acute fractures or dislocations. Patient's symptoms likely due to a contusion versus musculoskeletal sprain/strain versus other. Recommend supportive treatment with RICE, Tylenol, ibuprofen. Recommend follow-up with PCP as soon as possible. ED return precautions discussed with patient. Patient verbalized understanding. Medical records reviewed: Yes Discharge Plan Departure Patient Disposition: Home Clinical Impression: Injury of knee Qualifiers: Encounter type: initial encounter Laterality: left Qualified Code(s): S89.92XA - Unspecified injury of left lower leg, initial encounter Instructions: How to Prevent Falls Activity Restrictions/Additional Instructions: You were evaluated in the ED today for a knee injury. Your x-ray did not show any fractures or dislocations. Your symptoms are likely due to a contusion or musculoskeletal sprain/strain. You may continue to ice the injury, elevate your leg. You may also take Tylenol and ibuprofen for the pain. Please follow-up with your PCP as soon as possible. Return to the ED if you have worsening symptoms, numbness, tingling, weakness. Prescriptions: No Action albuterol sulfate 90 mcg/actuation HFA aerosol inhaler 2 puff inhalation Q4-6H PRN (Reason: shortness of breath or wheezing) Qty: 6.7 0RF ipratropium bromide 17 mcg/actuation HFA aerosol inhaler 2 puff inhalation QID Qty: 12.9 0RF albuterol sulfate 2.5 mg /3 mL (0.083 %) solution for nebulization 2.5 mg Continuous Nebulization Q6HP PRN (Reason: shortness of breath or wheezing) Qty: 360 2RF sulfasalazine 500 mg tablet 1,000 mg PO BID Qty: 180 1RF cholecalciferol (vitamin D3) 1,250 mcg (50,000 unit) capsule 1,250 mcg PO QWEEK Qty: 12 0RF ascorbic acid (vitamin C) 500 mg tablet 500 mg PO DAILY Qty: 90 0RF Rx Instructions: Take with iron mecobalamin (vitamin B12) [B12 Active] 1,000 mcg tablet,chewable 1,000 mcg PO DAILY Qty: 90 3RF fluoxetine 20 mg capsule 20 mg PO DAILY Qty: 90 3RF Rx Instructions: Take with 10 mg to complete 30 mg dose fluoxetine 10 mg capsule See Rx Instructions .ROUTE .COMPLEX Qty: 90 3RF Dose Instruction: take 1 capsule by mouth once daily WITH 20MG CAP DAILY TOTAL 30 MG DAILY Rx Instructions: take 1 capsule by mouth once daily WITH 20MG CAP DAILY TOTAL 30 MG DAILY methocarbamol 750 mg tablet 750 mg PO QID 30 Days Qty: 120 2RF metoprolol succinate 100 mg tablet extended release 24 hr 100 mg PO DAILY Qty: 90 3RF duloxetine [Cymbalta] 30 mg capsule,delayed release(DR/EC) 30 mg PO DAILY Qty: 30 1RF prednisone 5 mg tablet 5 mg PO DAILY Qty: 30 5RF Rx Instructions: start taking every day ferrous gluconate 324 mg (37.5 mg iron) tablet 324 mg PO DAILY Qty: 90 2RF Rx Instructions: start taking daily, with food or juice omeprazole 40 mg capsule,delayed release(DR/EC) 40 mg PO DAILY Qty: 90 3RF Rx Instructions: take 1 capsule by mouth once daily clotrimazole 10 mg tracy 10 mg mucous membrane 5XD Qty: 30 1RF cephalexin 500 mg capsule 500 mg PO TID Qty: 21 0RF clobetasol 0.05 % solution topical BID prednisone 50 mg tablet 50 mg PO DAILY Qty: 10 0RF hydromorphone 2 mg tablet 2 mg PO BEDTIME PRN (Reason: pain) Qty: 30 0RF Rx Instructions: Must last 30 days until December 13, 2024 oxycodone 10 mg tablet 10 mg PO Q8H PRN (Reason: pain) Qty: 90 0RF Rx Instructions: Must last 30 days, December 13 2024 nortriptyline 10 mg capsule 10 mg PO BEDTIME Qty: 30 1RF zolmitriptan [Zomig] 5 mg tablet See Rx Instructions PO .COMPLEX Qty: 10 1RF Rx Instructions: take 1 tab at onset of headache; if no relief, may repeat 1 tab after at least 2 hrs; max = 2 tabs/24 hrs PO lidocaine 5 % adhesive patch,medicated 1 patch topical DAILY Qty: 15 2RF Rx Instructions: leave on most painful area for up to 12 hrs mupirocin 2 % ointment 1 applic topical BID Qty: 22 1RF triamcinolone acetonide 0.5 % cream 1 applic topical BID Qty: 15 1RF Rx Instructions: Applied to affected areas potassium chloride 20 mEq tablet extended release 20 meq PO BID Qty: 10 0RF valacyclovir 1 gram tablet 1,000 mg PO TID Qty: 30 0RF meclizine 25 mg tablet 25 mg PO TID PRN (Reason: dizziness) Qty: 10 0RF ondansetron HCl 4 mg tablet 4 mg PO Q6H PRN (Reason: nausea and vomiting) Qty: 10 0RF naloxone [Narcan] 4 mg/actuation spray,non-aerosol 1 spray intranasal Q2M Qty: 2 0RF Rx Instructions: spray 1 dose into ONE nostril; alternate nostrils w each dose until help arrives mupirocin 2 % ointment 1 applic topical BID Qty: 22 0RF triamcinolone acetonide 0.5 % ointment 1 applic topical BID Qty: 15 0RF Disabled Parking Permit 1 1 % SEEINSTR Rx Instructions: Valid for 5 years amlodipine 5 mg tablet 5 mg PO DAILY Patient Comments: pt received dose in hospital 11/10/19 early AM admit to hydrochlorothiazide 25 mg tablet 12.5 mg PO QAM ipratropium-albuterol 0.5 mg-3 mg(2.5 mg base)/3 mL solution for nebulization 3 ml inhalation Q6H PRN (Reason: shortness of breath or wheezing) Qty: 90 0RF aspirin [Enteric Coated Aspirin] 81 mg tablet,delayed release (DR/EC) 81 mg PO DAILY Qty: 30 0RF nitroglycerin 0.4 mg tablet, sublingual 0.4 mg sublingual Q5M PRN (Reason: chest pain) Qty: 10 0RF Rx Instructions: do not exceed 3 doses per episode Referrals: Edilberto Snell, [Primary Care Provider] - Stand Alone Forms: Patient Portal/API/Survey ED Sign-out <Bob Lguo MD - Last Filed: 12/30/24 07:52> Cosign ED Attending Liliana Attestation: I was immediately available in the department for consultation. ?This documentation has been reviewed and I agree with assessment and plan. Supervised by Bob Lugo MD
== END 2024-12-29 17:50 | disposition home or self-care (01) ==
PROVIDERS: Emergency Provider Student in an Organized Health Care Education/Training Program; PCP Family Medicine
DX: S89.92XA Unspecified injury of left lower leg, initial encounter (principal); W01.0XXA Fall on same level from slipping, tripping and stumbling without subsequent striking against object, initial encounter
CPT/HCPCS: 73562; 99281; 99283

== ENCOUNTER 2025-01-06 15:15 | Emergency (ER) | payer MEDICARE, OTHER, SELFPAY ==
[2024-02-02 03:27] VITALS: BMI 29.4
[2025-01-06 15:34] VITALS: BP 175/91; PULSE 80; RESP 18; TEMP 37.3; O2SAT 97; BMI 29.7
--- NOTE | 2025-01-06 15:40 | DI.RAD.S_ITS ---
PROCEDURE: XR CHEST 2V INDICATIONS: fall with pain on left side TECHNIQUE: 2 views of the chest were acquired. COMPARISON: [facility], CR, XR CHEST 1V, 08/18/2024, 9:09. [facility], CR, XR CHEST 1V, 06/28/2024, 15:47. FINDINGS: Surgical changes and devices: Shoulder arthroplasties and surgical fusion of the thoracolumbar spine. Lungs and pleura: Lungs are clear. No pleural effusions or pneumothorax. Mediastinum: Mediastinal contours are normal. Heart size is normal. Bones and chest wall: No suspicious bony abnormalities. Soft tissues appear unremarkable. IMPRESSION: No displaced fracture or pneumothorax. Dictated by: Jason Hdez M.D. on 01/06/2025 at 16:35 Approved by: Jason Hdez M.D. on 01/06/2025 at 16:36
--- NOTE | 2025-01-06 15:41 | DI.RAD.S_ITS ---
PROCEDURE: XR HIP W PEL IF DONE LT 2V INDICATIONS: fall with left hip pain TECHNIQUE: 2 views of the hip were acquired. COMPARISON: [facility], CR, XR HIP W PEL IF DONE LT 2V, 09/09/2023, 13:59. [facility], CR, XR HIP W PEL IF DONE LT 2V, 07/13/2023, 17:02. FINDINGS: Bones: No fractures or dislocations. No suspicious bony lesions. The visualized pelvic ring appears intact. Fractured fusion plate across the pubic symphysis, stable from prior. Intact surgical hardware of the right hemipelvis and lower lumbar spine. Soft tissues: No suspicious soft tissue calcifications or masses. Surgical clips project over the pelvic inlet. IMPRESSION: No displaced fracture . Dictated by: Jason Hdez M.D. on 01/06/2025 at 16:33 Approved by: Jason Hdez M.D. on 01/06/2025 at 16:34
--- NOTE | 2025-01-06 15:42 | DI.RAD.S_ITS ---
PROCEDURE: XR SHOULDER LT MIN 2V INDICATIONS: fall with left shoulder pain TECHNIQUE: 3 views of the shoulder were acquired. COMPARISON: [facility], CR, XR SHOULDER LT MIN 2V, 07/02/2024, 17:57. [facility], CR, XR SHOULDER LT MIN 2V, 01/10/2024, 18:10. FINDINGS: Bones: No fractures or dislocations. No suspicious bony lesions. Visualized ribs appear intact. Left shoulder arthroplasty. Soft tissues: No suspicious soft tissue calcifications. IMPRESSION: No acute bony abnormality. Dictated by: Jason Hdez M.D. on 01/06/2025 at 16:34 Approved by: Jason Hdez M.D. on 01/06/2025 at 16:34
--- NOTE | 2025-01-06 15:43 | DI.RAD.S_ITS ---
PROCEDURE: XR KNEE LT 3V INDICATIONS: fall with left hip pain TECHNIQUE: 3 views of the knee were acquired. COMPARISON: [facility], CR, XR KNEE LT 3V, 12/29/2024, 16:38. [facility], CR, XR KNEE LT 3V, 11/05/2024, 15:34. FINDINGS: Bones: No fractures or dislocations. No suspicious bony lesions. Tricompartmental joint space narrowing with associated osteophytosis. Subchondral cystic change without bony deformity of the medial tibiofemoral compartment. Soft tissues: No joint effusion. No suspicious soft tissue calcifications. IMPRESSION: No acute bony abnormality or significant effusion. 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 Dictated by: Jason Hdez M.D. on 01/06/2025 at 16:35 Approved by: Jason Hdez M.D. on 01/06/2025 at 16:35
--- NOTE | 2025-01-06 16:56 | ED_ITS ---
HPI - Fall <Joy Valdez PA-C - Last Filed: 01/06/25 19:53> General Chief Complaint: Fall Stated Complaint: Fall, leg, knee and back px Time Seen by Provider: 01/06/25 15:38 Source: patient Mode of arrival: Wheelchair History of Present Illness HPI Narrative: Mr. Barrett Tam is a pleasant 79-year-old male with a past medical history of arthritis, GERD, COPD, hypertension, chronic pain who presents to the emergency department for left-sided body pain after a trip and fall that occurred this morning. Patient states that he was getting out of bed when he got tripped up on his underwear falling onto his left side. He did not hit his head or lose consciousness. States that since then he is having pain of his left shoulder in his left knee and also his left hip some. He is still able to walk and has full range of motion. Denies any numbness tingling or weakness. No chest pain shortness of breath or dizziness. No lacerations. Related Data Home Medications Medication Instructions Recorded Confirmed Disabled Parking Permit 1 % SEEINSTR 11/08/20 01/01/25 amlodipine 5 mg tablet 5 mg PO DAILY 11/08/22 01/01/25 hydrochlorothiazide 25 mg tablet 12.5 mg PO QAM 11/15/22 01/01/25 clobetasol 0.05 % scalp solution topical BID 12/11/24 01/01/25 Previous Rx's Medication Instructions Recorded albuterol sulfate 2.5 mg/3 mL 2.5 mg (3 mL) continuous 10/24/22 (0.083 %) solution for nebulization nebulization Q6HP PRN shortness of breath or wheezing #360 mL potassium chloride 20 mEq 20 meq PO BID #10 tabs 02/26/23 tablet,extended release ipratropium 0.5 mg-albuterol 3 mg 3 ml inhalation Q6H PRN shortness 03/19/23 (2.5 mg base)/3 mL nebulization of breath or wheezing #90 mL soln valacyclovir 1 gram tablet 1,000 mg PO TID #30 tabs 09/02/23 sulfasalazine 500 mg tablet 1,000 mg (2 x 500 mg) PO BID #180 11/28/23 tabs ascorbic acid (vitamin C) 500 mg 500 mg PO DAILY #90 tabs 12/13/23 tablet cholecalciferol (vitamin D3) 1,250 1,250 mcg PO QWEEK #12 caps 12/13/23 mcg (50,000 unit) capsule nortriptyline 10 mg capsule 10 mg PO BEDTIME #30 caps 12/17/23 meclizine 25 mg tablet 25 mg PO TID PRN dizziness #10 tabs 01/23/24 mecobalamin (vitamin B12) 1,000 1,000 mcg PO DAILY #90 tabs 02/11/24 mcg chewable tablet (B12 Active) fluoxetine 10 mg capsule See Rx Instructions .Route 04/20/24 .COMPLEX #90 caps fluoxetine 20 mg capsule 20 mg PO DAILY #90 caps 04/20/24 prednisone 5 mg tablet 5 mg PO DAILY #30 tabs 06/22/24 naloxone 4 mg/actuation nasal 1 spray intranasal Q2M #2 ea 08/05/24 spray (Narcan) ondansetron HCl 4 mg tablet 4 mg PO Q6H PRN nausea and 08/05/24 vomiting #10 tabs aspirin 81 mg tablet,delayed 81 mg PO DAILY #30 tabs 08/18/24 release (Enteric Coated Aspirin) nitroglycerin 0.4 mg sublingual 0.4 mg sublingual Q5M PRN chest 08/18/24 tablet pain #10 tabs lidocaine 5 % topical patch 1 patch topical DAILY #15 ea 09/29/24 albuterol sulfate 90 mcg/actuation 2 puff inhalation Q4-6H PRN 10/12/24 aerosol inhaler shortness of breath or wheezing #6.7 grams ipratropium bromide 17 2 puff inhalation QID #12.9 grams 10/12/24 mcg/actuation HFA aerosol inhaler metoprolol succinate 100 mg 100 mg PO DAILY #90 tabs 10/15/24 tablet,extended release 24 hr cephalexin 500 mg capsule 500 mg PO TID #21 caps 11/03/24 clotrimazole 10 mg tracy 10 mg mucous membrane 5XD #30 tabs 11/03/24 ferrous gluconate 324 mg (37.5 mg 324 mg PO DAILY #90 tabs 11/03/24 iron) tablet omeprazole 40 mg capsule,delayed 40 mg PO DAILY #90 caps 11/03/24 release duloxetine 30 mg capsule,delayed 30 mg PO DAILY #30 caps 11/10/24 release (Cymbalta) mupirocin 2 % topical ointment 1 applic topical BID #22 grams 12/04/24 triamcinolone acetonide 0.5 % 1 applic topical BID #15 grams 12/04/24 topical cream prednisone 50 mg tablet 50 mg PO DAILY #10 tabs 12/11/24 mupirocin 2 % topical ointment 1 applic topical BID #22 grams 12/24/24 triamcinolone acetonide 0.5 % 1 applic topical BID #15 grams 12/24/24 topical ointment methocarbamol 750 mg tablet 750 mg PO QID 30 days #120 tabs 01/01/25 zolmitriptan 5 mg tablet (Zomig) See Rx Instructions PO .COMPLEX 01/01/25 #10 tabs hydromorphone 2 mg tablet 2 mg PO BEDTIME PRN pain #30 tabs 01/08/25 oxycodone 10 mg tablet 10 mg PO Q8H PRN pain #90 tabs 01/08/25 Allergies Allergy/AdvReac Type Severity Reaction Status Date / Time cyclobenzaprine Allergy Severe Dizziness, Verified 01/01/25 10:39 [From Flexeril] I bounce off [place] ibuprofen AdvReac Intermediate Redness of Verified 01/01/25 10:39 Skin acetaminophen [ACETAMINOPHEN] AdvReac Unknown Can't take Verified 01/01/25 10:39 r/t Hep C; upset stomach Review of Systems <Joy Valdez PA-C - Last Filed: 01/06/25 19:53> Review of Systems ROS Unobtainable: All systems reviewed & are unremarkable except as noted in HPI and below Patient History <Joy Valdez PA-C - Last Filed: 01/06/25 19:53> Medical History Dermatitis Folliculitis Thrush GERD (gastroesophageal reflux disease) Hyponatremia Bronchitis Impaired cognition Left knee pain Chronic diarrhea Eustachian tube dysfunction Seasonal allergic rhinitis Dyspepsia Anemia Tinea Abdominal wall pain in both lower quadrants Constipation Aftercare following left shoulder joint replacement surgery Preoperative clearance Left lateral epicondylitis Adhesive capsulitis Right wrist sprain Oral lesion Colles' fracture Right wrist pain Left shoulder strain Anxiety Fibromyalgia Sinus drainage Chronic ankle pain, bilateral Rheumatoid arthritis Acute exacerbation of chronic bronchitis Foraminal stenosis of lumbar region Peripheral neuropathy Pneumonia (~2018) Impotence (Unknown) Restless leg syndrome (Unknown) Arthritis (Unknown) Chronic pain syndrome (Unknown) Kidney stones (Unknown) Prostate cancer (Unknown) Skin cancer (Unknown) Hepatitis C (Unknown) Hypertension (Unknown) Migraines (Unknown) PTSD (post-traumatic stress disorder) (Unknown) Depression (Unknown) Surgical History S/P lumbar fusion History of lumbar fusion (05/10/22) History of ankle surgery 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 Social History marital status: household members: spouse lives independently: Yes occupational status: previously employed Smoking Status: Former smoker Tobacco: How many years used: 20 quit status: has quit before alcohol intake: former substance use type: former substance user and marijuana Smoking Status: Former smoker tobacco type: cigarettes alcohol intake frequency: holidays/special occasions only Exam <Joy Valdez PA-C - Last Filed: 01/06/25 19:53> Narrative Exam Narrative: GENERAL: 79 year old patient appears stated age. Well-developed patient, in no acute distress. HEAD: Atraumatic. Normocephalic. EYES: Extraocular motions intact. No scleral icterus. No injection or drainage. . NECK: Trachea midline. Cervical ROM intact. CARDIOVASCULAR: Regular rate and rhythm. RESPIRATORY: ?Nonlabored respirations. ?Speaking in clear, full sentences. ?Clear to auscultation. GASTROINTESTINAL: Abdomen soft, non-tender, nondistended. EXTREMITIES: Tenderness to palpation of anterior left knee. Subjective pain with abduction of left shoulder greater than 90?. No obvious deformities or skin changes. Strong DP and PT pulses and radial pulses bilaterally. BACK: No midline spinal tenderness or deformities. NEURO: AOx3. ?Clear speech. ?Moves all 4 extremities appropriately. SKIN: No rash or erythema of visible areas Initial Vital Signs Initial Vital Signs: Vital Signs Temperature 99.1 F 01/06/25 15:34 Pulse Rate 80 01/06/25 15:34 Respiratory Rate 18 01/06/25 15:34 Blood Pressure 175/91 H 01/06/25 15:34 Pulse Oximetry 97 01/06/25 15:34 Oxygen Delivery Method Room Air 01/06/25 15:34 <Mirtha Jameson MD - Last Filed: 01/09/25 05:26> Initial Vital Signs Initial Vital Signs: Vital Signs Temperature 99.1 F 01/06/25 15:34 Pulse Rate 80 01/06/25 15:34 Respiratory Rate 18 01/06/25 15:34 Blood Pressure 175/91 H 01/06/25 15:34 Pulse Oximetry 97 01/06/25 15:34 Oxygen Delivery Method Room Air 01/06/25 15:34 Course <Joy Valdez PA-C - Last Filed: 01/06/25 19:53> Orders Ordered: Discontinued Medications Ketorolac Tromethamine (Ketorolac 30 Mg/Ml Vial) 30 mg IM NOW ONE Stop: 01/06/25 17:09 Last Admin: 01/06/25 17:59 Dose: 30 mg Documented By: QUAN Vital Signs Vital signs: Vital Signs - 8 hr 01/06/25 15:34 01/06/25 18:00 Temperature 99.1 F Pulse Rate 80 79 Respiratory Rate 18 16 Blood Pressure 175/91 H 184/87 H Pulse Oximetry 97 97 Oxygen Delivery Method Room Air Room Air <Mirtha Jameson MD - Last Filed: 01/09/25 05:26> Orders Ordered: Discontinued Medications Ketorolac Tromethamine (Ketorolac 30 Mg/Ml Vial) 30 mg IM NOW ONE Stop: 01/06/25 17:09 Last Admin: 01/06/25 17:59 Dose: 30 mg Documented By: QUAN Vital Signs Vital signs: Vital Signs - 8 hr 01/06/25 15:34 01/06/25 18:00 Temperature 99.1 F Pulse Rate 80 79 Respiratory Rate 18 16 Blood Pressure 175/91 H 184/87 H Pulse Oximetry 97 97 Oxygen Delivery Method Room Air Room Air MDM - Fall <Joy Valdez PA-C - Last Filed: 01/06/25 19:53> Medical Records Attestation: I reviewed the patient's medical records. Imaging Data Chest x-ray: Radiologist's Impression: PROCEDURE: XR CHEST 2V INDICATIONS: fall with pain on left side TECHNIQUE: 2 views of the chest were acquired. COMPARISON: [facility], , XR CHEST 1V, 08/18/2024, 9:09. [facility], XR CHEST 1V, 06/28/2024, 15:47. FINDINGS: Surgical changes and devices: Shoulder arthroplasties and surgical fusion of the thoracolumbar spine. Lungs and pleura: Lungs are clear. No pleural effusions or pneumothorax. Mediastinum: Mediastinal contours are normal. Heart size is normal. Bones and chest wall: No suspicious bony abnormalities. Soft tissues appear unremarkable. IMPRESSION: No displaced fracture or pneumothorax. Hip/Pelvis X-Ray: Radiologist's Impression: PROCEDURE: XR HIP W PEL IF DONE LT 2V INDICATIONS: fall with left hip pain TECHNIQUE: 2 views of the hip were acquired. COMPARISON: [facility], XR HIP W PEL IF DONE LT 2V, 09/09/2023, 13:59. [facility], XR HIP W PEL IF DONE LT 2V, 07/13/2023, 17:02. FINDINGS: Bones: No fractures or dislocations. No suspicious bony lesions. The visualized pelvic ring appears intact. Fractured fusion plate across the pubic symphysis, stable from prior. Intact surgical hardware of the right hemipelvis and lower lumbar spine. Soft tissues: No suspicious soft tissue calcifications or masses. Surgical clips project over the pelvic inlet. IMPRESSION: No displaced fracture . Shoulder XR: Radiologist's Impression: PROCEDURE: XR SHOULDER LT MIN 2V INDICATIONS: fall with left shoulder pain TECHNIQUE: 3 views of the shoulder were acquired. COMPARISON: [facility], XR SHOULDER LT MIN 2V, 07/02/2024, 17:57. [facility], XR SHOULDER LT MIN 2V, 01/10/2024, 18:10. FINDINGS: Bones: No fractures or dislocations. No suspicious bony lesions. Visualized ribs appear intact. Left shoulder arthroplasty. Soft tissues: No suspicious soft tissue calcifications. IMPRESSION: No acute bony abnormality. Left Knee X-ray: Radiologist's Impression: PROCEDURE: XR KNEE LT 3V INDICATIONS: fall with left hip pain TECHNIQUE: 3 views of the knee were acquired. COMPARISON: [facility], CR, XR KNEE LT 3V, 12/29/2024, 16:38. [facility], CR, XR KNEE LT 3V, 11/05/2024, 15:34. FINDINGS: Bones: No fractures or dislocations. No suspicious bony lesions. Tricompartmental joint space narrowing with associated osteophytosis. Subchondral cystic change without bony deformity of the medial tibiofemoral compartment. Soft tissues: No joint effusion. No suspicious soft tissue calcifications. IMPRESSION: No acute bony abnormality or significant effusion. 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 MDM Narrative Medical decision making narrative: 79-year-old male with a past medical history of arthritis, GERD, COPD, hypertension, chronic pain who presents to the emergency department for left- sided body pain after a trip and fall that occurred this morning. Differential diagnosis includes but is not limited to sprain, strain, contusion, fracture, dislocation, rotator cuff injury, etc. On exam patient is in no acute distress, nontoxic appearing, vital signs appropriate except for mildly elevated blood pressure. Patient had an acc idental mechanical fall this morning landing on his left side, no head trauma. X-ray chest, pelvis, knee and shoulder were obtained in triage and reveal no acute bony abnormalities or dislocations. He does have moderate to severe tricompartmental osteoarthritis of the left knee. Printed and discussed all results with the patient. At this time we will treat musculoskeletal pain with Toradol. States that he does have some skin redness with ibuprofen but he can take it. Recommended ibuprofen/acetaminophen if needed for pain, rice therapy, follow up with PCP. ED return precautions discussed. He is agreeable to the plan and stable for discharge home, ambulatory. Discharge Plan Departure Patient Disposition: Home Clinical Impression: Fall from ground level, Arthritis of knee, left Left shoulder strain Qualifiers: Encounter type: initial encounter Qualified Code(s): S46.912A - Strain of unspecified muscle, fascia and tendon at shoulder and upper arm level, left arm, initial encounter Strain of left knee Qualifiers: Encounter type: initial encounter Qualified Code(s): S86.912A - Strain of unspecified muscle(s) and tendon(s) at lower leg level, left leg, initial encounter Instructions: DI for Arthritis Activity Restrictions/Additional Instructions: Dear Mr. Tam, Thank you for coming to the emergency department. Today you were evaluated for left shoulder and left knee pain after trip and fall. Luckily you did not break any bones. You do have significant arthritis of your left knee. I recommend that you apply topical Voltaren arthritis gel to the left knee, use the Jermaine wrap for support, and follow up with the primary care doctor for further evaluation. Please use RICE therapy for your pain in addition to ibuprofen/acetaminophen. Rest the painful area. Ice the area of pain/swelling for at least 15 minutes, 4x a day. Compress the area of swelling using a brace, wrap, or splint if applied. Elevate the painful or swollen extremity by supporting it above the level of the heart with pillows when sitting or laying. Please follow up with your primary care doctor within the next 2-3 days for ER follow-up. (If you do not have a PCP you can call [phone]. ?to schedule an appointment with an [facility] Primary Care Provider) IF YOU DEVELOP ANY NEW OR WORSENING SYMPTOMS, RETURN TO THE ER! Please read the attached instructions, they highlight more specific treatments and interventions for you at home. Thank you for letting me participate in your care, Joy Valdez PA-C Prescriptions: No Action albuterol sulfate 90 mcg/actuation HFA aerosol inhaler 2 puff inhalation Q4-6H PRN (Reason: shortness of breath or wheezing) Qty: 6.7 0RF ipratropium bromide 17 mcg/actuation HFA aerosol inhaler 2 puff inhalation QID Qty: 12.9 0RF albuterol sulfate 2.5 mg /3 mL (0.083 %) solution for nebulization 2.5 mg Continuous Nebulization Q6HP PRN (Reason: shortness of breath or wheezing) Qty: 360 2RF sulfasalazine 500 mg tablet 1,000 mg PO BID Qty: 180 1RF cholecalciferol (vitamin D3) 1,250 mcg (50,000 unit) capsule 1,250 mcg PO QWEEK Qty: 12 0RF ascorbic acid (vitamin C) 500 mg tablet 500 mg PO DAILY Qty: 90 0RF Rx Instructions: Take with iron mecobalamin (vitamin B12) [B12 Active] 1,000 mcg tablet,chewable 1,000 mcg PO DAILY Qty: 90 3RF fluoxetine 20 mg capsule 20 mg PO DAILY Qty: 90 3RF Rx Instructions: Take with 10 mg to complete 30 mg dose fluoxetine 10 mg capsule See Rx Instructions .ROUTE .COMPLEX Qty: 90 3RF Dose Instruction: take 1 capsule by mouth once daily WITH 20MG CAP DAILY TOTAL 30 MG DAILY Rx Instructions: take 1 capsule by mouth once daily WITH 20MG CAP DAILY TOTAL 30 MG DAILY metoprolol succinate 100 mg tablet extended release 24 hr 100 mg PO DAILY Qty: 90 3RF duloxetine [Cymbalta] 30 mg capsule,delayed release(DR/EC) 30 mg PO DAILY Qty: 30 1RF hydromorphone 2 mg tablet 2 mg PO BEDTIME PRN (Reason: pain) Qty: 30 0RF Rx Instructions: Must last 30 days until December 13, 2024 oxycodone 10 mg tablet 10 mg PO Q8H PRN (Reason: pain) Qty: 90 0RF Rx Instructions: Must last 30 days, December 13 2024 prednisone 5 mg tablet 5 mg PO DAILY Qty: 30 5RF Rx Instructions: start taking every day ferrous gluconate 324 mg (37.5 mg iron) tablet 324 mg PO DAILY Qty: 90 2RF Rx Instructions: start taking daily, with food or juice omeprazole 40 mg capsule,delayed release(DR/EC) 40 mg PO DAILY Qty: 90 3RF Rx Instructions: take 1 capsule by mouth once daily clotrimazole 10 mg tracy 10 mg mucous membrane 5XD Qty: 30 1RF cephalexin 500 mg capsule 500 mg PO TID Qty: 21 0RF clobetasol 0.05 % solution topical BID prednisone 50 mg tablet 50 mg PO DAILY Qty: 10 0RF zolmitriptan [Zomig] 5 mg tablet See Rx Instructions PO .COMPLEX Qty: 10 1RF Rx Instructions: take 1 tab at onset of headache; if no relief, may repeat 1 tab after at least 2 hrs; max = 2 tabs/24 hrs PO methocarbamol 750 mg tablet 750 mg PO QID 30 Days Qty: 120 2RF nortriptyline 10 mg capsule 10 mg PO BEDTIME Qty: 30 1RF lidocaine 5 % adhesive patch,medicated 1 patch topical DAILY Qty: 15 2RF Rx Instructions: leave on most painful area for up to 12 hrs mupirocin 2 % ointment 1 applic topical BID Qty: 22 1RF triamcinolone acetonide 0.5 % cream 1 applic topical BID Qty: 15 1RF Rx Instructions: Applied to affected areas potassium chloride 20 mEq tablet extended release 20 meq PO BID Qty: 10 0RF valacyclovir 1 gram tablet 1,000 mg PO TID Qty: 30 0RF meclizine 25 mg tablet 25 mg PO TID PRN (Reason: dizziness) Qty: 10 0RF ondansetron HCl 4 mg tablet 4 mg PO Q6H PRN (Reason: nausea and vomiting) Qty: 10 0RF naloxone [Narcan] 4 mg/actuation spray,non-aerosol 1 spray intranasal Q2M Qty: 2 0RF Rx Instructions: spray 1 dose into ONE nostril; alternate nostrils w each dose until help arrives mupirocin 2 % ointment 1 applic topical BID Qty: 22 0RF triamcinolone acetonide 0.5 % ointment 1 applic topical BID Qty: 15 0RF Disabled Parking Permit 1 1 % SEEINSTR Rx Instructions: Valid for 5 years amlodipine 5 mg tablet 5 mg PO DAILY Patient Comments: pt received dose in hospital 11/10/19 early AM admit to AC hydrochlorothiazide 25 mg tablet 12.5 mg PO QAM ipratropium-albuterol 0.5 mg-3 mg(2.5 mg base)/3 mL solution for nebulization 3 ml inhalation Q6H PRN (Reason: shortness of breath or wheezing) Qty: 90 0RF aspirin [Enteric Coated Aspirin] 81 mg tablet,delayed release (DR/EC) 81 mg PO DAILY Qty: 30 0RF nitroglycerin 0.4 mg tablet, sublingual 0.4 mg sublingual Q5M PRN (Reason: chest pain) Qty: 10 0RF Rx Instructions: do not exceed 3 doses per episode Referrals: Edilberto Snell DO [Primary Care Provider] - Stand Alone Forms: Patient Portal/API/Survey ED Sign-out <Mirtha Jameson MD - Last Filed: 01/09/25 05:26> Cosign ED Attending Cosignature Attestation: I was immediately available in the department for consultation throughout this patient's visit. Mirtha Jameson MD
[2025-01-06] MEDS: KETOROLAC 30 MG/ML VIAL IM (17:59)
[2025-01-06 18:00] VITALS: BP 184/87; PULSE 79; RESP 16; O2SAT 97
== END 2025-01-06 18:01 | disposition home or self-care (01) ==
PROVIDERS: Emergency Provider Physician Assistant; PCP Family Medicine
DX: S46.912A Strain of unspecified muscle, fascia and tendon at shoulder and upper arm level, left arm, initial encounter (principal); S86.912A Strain of unspecified muscle(s) and tendon(s) at lower leg level, left leg, initial encounter; M17.12 Unilateral primary osteoarthritis, left knee; W01.0XXA Fall on same level from slipping, tripping and stumbling without subsequent striking against object, initial encounter
CPT/HCPCS: 71046; 73030; 73502; 73562; 96372; 99283; 99284; J1885

== ENCOUNTER → 2025-02-03 16:24 | Outpatient (CLI) | payer MEDICARE, OTHER, SELFPAY ==
[2024-02-02 03:27] VITALS: BMI 29.4
--- NOTE | 2025-02-03 16:26 | DI.MRI.S_ITS ---
PROCEDURE: MR KNEE LT WO CON INDICATIONS: UNILATERAL PRIMARY OSTEOARTHRITIS LT KNEE TECHNIQUE: Noncontrast sagittal PD fast spin echo and T2 fast spin echo with fat saturation, sagittal 3-D FLASH with fat saturation; coronal T1 spin echo and PD fast spin echo with fat saturation, and axial PD fast spin echo with fat saturation through the knee. COMPARISON: [facility], MR, MR KNEE LT WO CON, 10/30/2023, 17:04. FINDINGS: Image quality: Excellent. Menisci: Peripheral displacement of medial meniscus bowing medial collateral ligament is seen. Complex oblique tear involving body and posterior horn of medial meniscus extending to both superior and inferior articulating surfaces. Oblique tear involving posterior horn of lateral meniscus is also seen extending to inferior articulating surface. Cruciate ligaments: The anterior cruciate ligament is mildly thickened. The posterior cruciate ligament is intact. Medial structures: The medial collateral ligament appears intact. Visualized portions of the pes anserinus tendons appear normal. No abnormal bursal fluid. Lateral structures: The lateral collateral ligament, long and short heads of the biceps femoris tendon appear intact. The popliteus tendon appears normal. Iliotibial band appears normal. Anterior structures: The quadriceps and patellar tendons appear intact. Patellar alignment is normal. Bones and cartilage: [id number] tricompartmental osteoarthritis and chondromalacia is seen more notably in medial femoral tibial compartment. No fracture or dislocation. Focal full-thickness cartilage defect involving weight-bearing portion of medial femoral condyle with underlying osteochondral injury and marrow edema is seen. Joint space: There is small knee joint fluid. There is a tiny bakers cyst measures 2.2 x 1.1 x 4.1 cm in size. Normal appearing synovial plicae are incidentally noted. IMPRESSION: 1. Complex tear involving body and posterior horn of medial meniscus extending to both superior and inferior articulating surfaces. Subtle oblique tear involving posterior horn of lateral meniscus extending to inferior articulating surface. 2. Low-grade ACL sprain. No ACL rupture. The PCL is intact. 3. [id number] tricompartmental osteoarthritis and chondromalacia most notably involving medial femoral tibial compartment as above. No fracture or dislocation. 4. Small joint effusion and a tiny Dunham's cyst. No loose bodies. Dictated by: Mohit Olivares M.D. on 02/06/2025 at 19:24 Approved by: Mohit Olivares M.D. on 02/06/2025 at 19:27
== END ==
PROVIDERS: PCP Family Medicine; Referring Provider Orthopaedic Surgery; Visit Provider Orthopaedic Surgery
DX: M17.12 Unilateral primary osteoarthritis, left knee (principal); S83.232A Complex tear of medial meniscus, current injury, left knee, initial encounter; S83.282A Other tear of lateral meniscus, current injury, left knee, initial encounter; S83.512A Sprain of anterior cruciate ligament of left knee, initial encounter; M94.262 Chondromalacia, left knee; M25.462 Effusion, left knee
CPT/HCPCS: 73721

== ENCOUNTER 2025-02-08 16:24 | Emergency (ER) | payer MEDICARE, OTHER, SELFPAY ==
[2024-02-02 03:27] VITALS: BMI 29.4
[2025-02-08 16:27] VITALS: BP 162/69; PULSE 65; RESP 18; TEMP 36.9; O2SAT 96; BMI 30.5
== END 2025-02-08 20:05 | disposition left against medical advice (07) ==
PROVIDERS: Emergency Provider Emergency Medicine; PCP Family Medicine
CPT/HCPCS: 99281

== ENCOUNTER 2025-02-10 12:26 | Emergency (ER) | payer MEDICARE, OTHER, SELFPAY ==
[2024-02-02 03:27] VITALS: BMI 29.4
[2025-02-10 12:24] VITALS: BP 130/67; PULSE 74; RESP 18; TEMP 37.1; O2SAT 96; BMI 30.5
--- NOTE | 2025-02-10 12:38 | ED_ITS ---
HPI - Fall <Joy Valdez PA-C - Last Filed: 02/10/25 15:08> General Chief Complaint: Fall Stated Complaint: GLF, knee and back pain Time Seen by Provider: 02/10/25 12:37 Source: patient Mode of arrival: Wheelchair History of Present Illness HPI Narrative: Mr. Tam is a pleasant 79-year-old male with a past medical history of chronic pain, arthritis, GERD, COPD, hypertension who presents to the emergency dep [facility] for pain after a fall that occurred prior to arrival. Patient states he was at his primary care doctor's office checking in, he turned around to leave but his left knee gave out and he fell backwards on his right side hitting the assistant front end manager and then the wall. He hit his head and his right elbow on the ground. He now is having posterior head pain, left-sided neck pain, right elbow pain, midthoracic back pain in addition to his chronic low back and left knee pain. He denies loss of consciousness or nausea or vomiting after the event. No visual disturbances. He has in a severe amount of pain most significantly in his midthoracic back with deep breath. Reports that he was only able to walk with the assistance after the fall. He denies any numbness tingling or weaknesses in his extremities that is new. He currently takes oxycodone 10 mg 3 times a day for his chronic pain. He is requesting pain medication at this time, has been placed into a C-collar. Related Data Home Medications Medication Instructions Recorded Confirmed Disabled Parking Permit 1 % SEEINSTR 11/08/20 01/01/25 amlodipine 5 mg tablet 5 mg PO DAILY 11/08/22 01/01/25 hydrochlorothiazide 25 mg tablet 12.5 mg PO QAM 11/15/22 01/01/25 clobetasol 0.05 % scalp solution topical BID 12/11/24 01/01/25 Previous Rx's Medication Instructions Recorded albuterol sulfate 2.5 mg/3 mL 2.5 mg (3 mL) continuous 10/24/22 (0.083 %) solution for nebulization nebulization Q6HP PRN shortness of breath or wheezing #360 mL potassium chloride 20 mEq 20 meq PO BID #10 tabs 02/26/23 tablet,extended release ipratropium 0.5 mg-albuterol 3 mg 3 ml inhalation Q6H PRN shortness 03/19/23 (2.5 mg base)/3 mL nebulization of breath or wheezing #90 mL soln valacyclovir 1 gram tablet 1,000 mg PO TID #30 tabs 09/02/23 sulfasalazine 500 mg tablet 1,000 mg (2 x 500 mg) PO BID #180 11/28/23 tabs ascorbic acid (vitamin C) 500 mg 500 mg PO DAILY #90 tabs 12/13/23 tablet cholecalciferol (vitamin D3) 1,250 1,250 mcg PO QWEEK #12 caps 12/13/23 mcg (50,000 unit) capsule nortriptyline 10 mg capsule 10 mg PO BEDTIME #30 caps 12/17/23 meclizine 25 mg tablet 25 mg PO TID PRN dizziness #10 tabs 01/23/24 mecobalamin (vitamin B12) 1,000 1,000 mcg PO DAILY #90 tabs 02/11/24 mcg chewable tablet (B12 Active) fluoxetine 10 mg capsule See Rx Instructions .Route 04/20/24 .COMPLEX #90 caps fluoxetine 20 mg capsule 20 mg PO DAILY #90 caps 04/20/24 prednisone 5 mg tablet 5 mg PO DAILY #30 tabs 06/22/24 naloxone 4 mg/actuation nasal 1 spray intranasal Q2M #2 ea 08/05/24 spray (Narcan) ondansetron HCl 4 mg tablet 4 mg PO Q6H PRN nausea and 08/05/24 vomiting #10 tabs aspirin 81 mg tablet,delayed 81 mg PO DAILY #30 tabs 08/18/24 release (Enteric Coated Aspirin) nitroglycerin 0.4 mg sublingual 0.4 mg sublingual Q5M PRN chest 08/18/24 tablet pain #10 tabs lidocaine 5 % topical patch 1 patch topical DAILY #15 ea 09/29/24 albuterol sulfate 90 mcg/actuation 2 puff inhalation Q4-6H PRN 10/12/24 aerosol inhaler shortness of breath or wheezing #6.7 grams ipratropium bromide 17 2 puff inhalation QID #12.9 grams 10/12/24 mcg/actuation HFA aerosol inhaler metoprolol succinate 100 mg 100 mg PO DAILY #90 tabs 10/15/24 tablet,extended release 24 hr cephalexin 500 mg capsule 500 mg PO TID #21 caps 11/03/24 clotrimazole 10 mg tracy 10 mg mucous membrane 5XD #30 tabs 11/03/24 ferrous gluconate 324 mg (37.5 mg 324 mg PO DAILY #90 tabs 11/03/24 iron) tablet omeprazole 40 mg capsule,delayed 40 mg PO DAILY #90 caps 11/03/24 release duloxetine 30 mg capsule,delayed 30 mg PO DAILY #30 caps 11/10/24 release (Cymbalta) mupirocin 2 % topical ointment 1 applic topical BID #22 grams 12/04/24 triamcinolone acetonide 0.5 % 1 applic topical BID #15 grams 12/04/24 topical cream prednisone 50 mg tablet 50 mg PO DAILY #10 tabs 12/11/24 mupirocin 2 % topical ointment 1 applic topical BID #22 grams 12/24/24 triamcinolone acetonide 0.5 % 1 applic topical BID #15 grams 12/24/24 topical ointment methocarbamol 750 mg tablet 750 mg PO QID 30 days #120 tabs 01/01/25 zolmitriptan 5 mg tablet (Zomig) See Rx Instructions PO .COMPLEX 01/01/25 #10 tabs lidocaine 5 % topical patch 1 patch topical DAILY #30 ea 02/10/25 (Lidoderm) ondansetron 4 mg disintegrating 4 mg PO Q8H PRN nausea and 02/10/25 tablet vomiting #14 tabs oxycodone 10 mg tablet 10 mg PO Q8H PRN pain #21 tabs 02/12/25 Allergies Allergy/AdvReac Type Severity Reaction Status Date / Time cyclobenzaprine Allergy Severe Dizziness, Verified 02/11/25 12:10 [From Flexeril] I bounce off ag ibuprofen AdvReac Intermediate Redness of Verified 02/11/25 12:10 Skin acetaminophen [ACETAMINOPHEN] AdvReac Unknown Can't take Verified 02/11/25 12:10 r/t Hep C; upset stomach Review of Systems <Joy Valdez PA-C - Last Filed: 02/10/25 15:08> Review of Systems ROS Unobtainable: All systems reviewed & are unremarkable except as noted in HPI and below Patient History <Joy Valdez PA-C - Last Filed: 02/10/25 15:08> Medical History Dermatitis Folliculitis Thrush GERD (gastroesophageal reflux disease) Hyponatremia Bronchitis Impaired cognition Left knee pain Chronic diarrhea Eustachian tube dysfunction Seasonal allergic rhinitis Dyspepsia Anemia Tinea Abdominal wall pain in both lower quadrants Constipation Aftercare following left shoulder joint replacement surgery Preoperative clearance Left lateral epicondylitis Adhesive capsulitis Right wrist sprain Oral lesion Colles' fracture Right wrist pain Left shoulder strain Anxiety Fibromyalgia Sinus drainage Chronic ankle pain, bilateral Rheumatoid arthritis Acute exacerbation of chronic bronchitis Foraminal stenosis of lumbar region Peripheral neuropathy Pneumonia (~2018) Impotence (Unknown) Restless leg syndrome (Unknown) Arthritis (Unknown) Chronic pain syndrome (Unknown) Kidney stones (Unknown) Prostate cancer (Unknown) Skin cancer (Unknown) Hepatitis C (Unknown) Hypertension (Unknown) Migraines (Unknown) PTSD (post-traumatic stress disorder) (Unknown) Depression (Unknown) Surgical History S/P lumbar fusion History of lumbar fusion (05/10/22) History of ankle surgery 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 Social History marital status: household members: spouse lives independently: Yes occupational status: previously employed Tobacco: How many years used: 20 quit status: has quit before alcohol intake: former substance use type: former substance user and marijuana Smoking Status: Former smoker tobacco type: cigarettes alcohol intake frequency: holidays/special occasions only Exam <Joy Valdez PA-C - Last Filed: 02/10/25 15:08> Narrative Exam Narrative: GENERAL: 79 year old patient appears stated age. Well-developed patient, in mild distress, sitting in wheelchair. HEAD: Atraumatic. Normocephalic. Subjective pain on posterior scalp. EYES: PERRL. Extraocular motions intact. No scleral icterus. No injection or drainage. ENT: Nose without bleeding NECK: Trachea midline. Patient reporting diffuse neck pain, primarily located on left side of cervical spine, placed in C-collar. CARDIOVASCULAR: Regular rate and rhythm. RESPIRATORY: ?Nonlabored respirations. ?Speaking in clear, full sentences. ?Clear to auscultation. Midthoracic back pain with deep breath. No tenderness to palpation of bilateral ribcage. GASTROINTESTINAL: Abdomen soft, non-tender, nondistended. EXTREMITIES: Tenderness to palpation of right olecranon, no bruising or wounds. Chronic left knee pain, no obvious wounds or deformities. BACK: Tenderness to palpation of midthoracic back region, no wounds. No palpable step-offs. No midline lumbar tenderness. NEURO: AOx3. ?Clear speech. ?Moves all 4 extremities appropriately. SKIN: No rash or erythema of visible areas Initial Vital Signs Initial Vital Signs: Vital Signs Temperature 98.8 F 02/10/25 12:24 Pulse Rate 74 02/10/25 12:24 Respiratory Rate 18 02/10/25 12:24 Blood Pressure 130/67 02/10/25 12:24 Pulse Oximetry 96 02/10/25 12:24 Oxygen Delivery Method Room Air 02/10/25 12:24 <Bob Lugo MD - Last Filed: 02/16/25 08:12> Initial Vital Signs Initial Vital Signs: Vital Signs Temperature 98.8 F 02/10/25 12:24 Pulse Rate 74 02/10/25 12:24 Respiratory Rate 18 02/10/25 12:24 Blood Pressure 130/67 02/10/25 12:24 Pulse Oximetry 96 02/10/25 12:24 Oxygen Delivery Method Room Air 02/10/25 12:24 Course <Joy Valdez PA-C - Last Filed: 02/10/25 15:08> Orders Ordered: Discontinued Medications Lidocaine (Lidocaine 5% Patch) 1 each TOP NOW ONE Stop: 02/10/25 12:55 Last Admin: 02/10/25 13:53 Dose: 1 each Documented By: HUGH Lidocaine (Lidocaine 5% Patch) 1 each TOP NOW ONE Stop: 02/10/25 13:52 Last Admin: 02/10/25 14:00 Dose: 1 each Documented By: HUGH Ondansetron HCl (Ondansetron 4 Mg Odt) 4 mg SL NOW ONE Stop: 02/10/25 14:45 Last Admin: 02/10/25 14:46 Dose: 4 mg Documented By: HUGH Oxycodone HCl (Oxycodone Ir 5 Mg Tablet) 10 mg PO NOW ONE Stop: 02/10/25 13:52 Last Admin: 02/10/25 14:01 Dose: 10 mg Documented By: HUGH Vital Signs Vital signs: Vital Signs - 8 hr 02/10/25 12:24 02/10/25 14:13 Temperature 98.8 F Pulse Rate 74 59 L Respiratory Rate 18 22 Blood Pressure 130/67 193/84 H Pulse Oximetry 96 97 Oxygen Delivery Method Room Air Room Air <Bob Lugo MD - Last Filed: 02/16/25 08:12> Orders Ordered: Discontinued Medications Lidocaine (Lidocaine 5% Patch) 1 each TOP NOW ONE Stop: 02/10/25 12:55 Last Admin: 02/10/25 13:53 Dose: 1 each Documented By: HUGH Lidocaine (Lidocaine 5% Patch) 1 each TOP NOW ONE Stop: 02/10/25 13:52 Last Admin: 02/10/25 14:00 Dose: 1 each Documented By: HUGH Ondansetron HCl (Ondansetron 4 Mg Odt) 4 mg SL NOW ONE Stop: 02/10/25 14:45 Last Admin: 02/10/25 14:46 Dose: 4 mg Documented By: HUGH Oxycodone HCl (Oxycodone Ir 5 Mg Tablet) 10 mg PO NOW ONE Stop: 02/10/25 13:52 Last Admin: 02/10/25 14:01 Dose: 10 mg Documented By: HUGH Vital Signs Vital signs: Vital Signs - 8 hr 02/10/25 12:24 02/10/25 14:13 Temperature 98.8 F Pulse Rate 74 59 L Respiratory Rate 18 22 Blood Pressure 130/67 193/84 H Pulse Oximetry 96 97 Oxygen Delivery Method Room Air Room Air MDM - Fall <Joy Valdez PA-C - Last Filed: 02/10/25 15:08> Medical Records Attestation: I reviewed the patient's medical records. Imaging Data Chest x-ray: Radiologist's Impression: PROCEDURE: XR CHEST 2V INDICATIONS: fall backward pain with deep breath mid back TECHNIQUE: 2 views of the chest were acquired. COMPARISON: [facility], CR, XR CHEST 2V, 01/06/2025, 15:40. [facility], CR, XR CHEST 1V, 08/18/2024, 9:09. FINDINGS: Surgical changes and devices: Bilateral shoulder arthroplasties. Thoracolumbar spine hardware. Lungs and pleura: Lungs are clear. No pleural effusions or pneumothorax. Mediastinum: Mediastinal contours are normal. Heart size is normal. Bones and chest wall: No suspicious bony abnormalities. Soft tissues appear unremarkable. IMPRESSION: No acute cardiopulmonary abnormality is seen. Right Elbow X-Ray: Radiologist's Impression: PROCEDURE: XR ELBOW RT MIN 3V INDICATIONS: fall backward r elbow pain TECHNIQUE: 3 views of the elbow were acquired. COMPARISON: None. FINDINGS: Bones: No fractures or dislocations. Degenerative changes of the elbow. No suspicious bony lesions. Soft tissues: No elbow joint effusion. No suspicious soft tissue calcifica tions. IMPRESSION: No acute osseous abnormality. If pain persists with conservative management, consider repeat x-ray in 10-14 days or cross-sectional imaging. CT scan - head: Radiologist's Impression: PROCEDURE: CT HEAD/BRAIN WO CON INDICATIONS: fall backward TECHNIQUE: Noncontrast 4.5 mm thick angled axial sections acquired from the foramen magnum to the vertex, with coronal and sagittal reformats. For radiation dose reduction, the following was used: automated exposure control, adjustment of mA and/or kV according to patient size. COMPARISON: [facility], CT, CT HEAD/BRAIN WO CON, 09/30/2023, 15:48. FINDINGS: Image quality: Diagnostic. CSF spaces: Basal cisterns are patent. No extra-axial fluid collections. The ventricles are symmetric in size and shape. Brain: No intracranial bleeds or mass effect. There is cerebral volume loss, with resultant ventricular and sulcal prominence. There are periventricular and deep white matter chronic small vessel ischemic changes. There is intracranial internal carotid artery atherosclerosis. Skull and face: Calvarium and visualized facial bones appear intact, without suspicious lesions. Sinuses: Visualized sinuses and mastoids are clear. IMPRESSION: No acute intracranial pathology. MDM Narrative Medical decision making narrative: 79-year-old male with a past medical history of chronic pain, arthritis, GERD, COPD, hypertension who presents to the emergency department for pain after a fall that occurred prior to arrival at his PCP's office, mechanical and witnessed. Now with posterior head pain, left-sided neck pain, right elbow pain, midthoracic back pain. Placed into a cervical collar. Differential diagnosis includes but is not limited to ICH, closed head injury, concussion, cervical sprain, strain, fracture, right elbow contusion, fracture, compression fracture, etc. On exam patient is in mild distress, nontoxic-appearing, able to provide clear competent history, no focal neurologic deficits, all vital signs within normal limits. He had a mechanical fall due to his chronic left knee issues. We will obtain CT imaging of head, neck, thoracic spine and x-rays of chest and right elbow. He declines any medication other than his home pain medication. about 1:50pm pt refused to continue wearing C-collar, removed, he verbalized understanding of risks. Head CT reveals no acute intracranial pathology. Patient is due for his home dose oxycodone, last took 4am, 10 mg IR ordered, confirmed with PDMP. Chest x-ray reveals no acute cardiopulmonary abnormality. Right elbow x-ray reveals no acute osseous abnormality. Cervical spine CT reveals no displaced fracture or traumatic subluxation. Stable left upper lobe 4 mm ground-glass nodule. Thoracic spine CT reveals no acute osseous abnormalities. There is multilevel degenerative changes of the thoracic spine and thoracolumbar fixation hardware. Sequela of prior granulomatous disease. All imaging was printed and discussed with the patient, provided him with his own copies of his results. Discussed chronic findings and advised follow up with PCP for chronic incidental findings. At this time patient has no acute traumatic abnormalities from the fall, do suspect a mild concussion which she was prescribed nausea medication for. Patient is requesting that I refill his chronic oxycodone, however he did call his primary care office while in the emergency department and told the office staff that he has enough of his prescription to get him through the next day or 2 while the refill is in place, but then he told me that he has no medication left whatsoever. I explained to the patient that the emergency department is unable to refill chronic opioids, I did encourage him to use ibuprofen and acetaminophen if needed for pain, Lidoderm, Zofran for nausea, continue his chronic medications as prescribed. Patient verbalized understanding of all information, states that his is able to drive him home, ED return precautions discussed, states he has an appointment with his PCP tomorrow. He is agreeable to the plan, ambulatory with cane and stable for discharge home. Discharge Plan Departure Patient Disposition: Home Clinical Impression: Ground-level fall Closed head injury Qualifiers: Encounter type: initial encounter Qualified Code(s): S09.90XA - Unspecified injury of head, initial encounter Back pain, thoracic Qualifiers: Chronicity: acute Back pain laterality: midline Qualified Code(s): M54.6 - Pain in thoracic spine Instructions: DI for Concussion Activity Restrictions/Additional Instructions: Dear Mr. Tam, Today you were evaluated in the emergency department for head trauma after a fall. You have a slight concussion and will likely have a mild headache and some nausea for a few days. Avoiding highly stimulating activities and even TV or computers may be helpful in minimizing your symptoms. Avoid activities that will put you at risk for another head injury for at least a week. You can take tylenol or motrin for headache or the prescription provided for nausea/vomiting. Return for worsening or persistent symptoms. Today we obtained imaging of your head, neck, back, and right elbow. Your scans did not show any fractures or brain abnormalities. Your imaging does reveal some chronic changes which you should discuss with the primary care doctor. Please use RICE therapy for your pain in addition to ibuprofen/acetaminophen. Rest the painful area. Ice the area of pain/swelling for at least 15 minutes, 4x a day. Compress the area of swelling using a brace, wrap, or splint if applied. Elevate the painful or swollen extremity by supporting it above the level of the heart with pillows when sitting or laying. Please follow up with your primary care doctor within the next 2-3 days for ER follow-up. (If you do not have a PCP you can call [phone]. ?to schedule an appointment with an [facility] Primary Care Provider) IF YOU DEVELOP ANY NEW OR WORSENING SYMPTOMS, RETURN TO THE ER! Please read the attached instructions, they highlight more specific treatments and interventions for you at home. Thank you for letting me participate in your care, Joy Valdez PA-C Prescriptions: New ondansetron 4 mg tablet,disintegrating 4 mg PO Q8H PRN (Reason: nausea and vomiting) Qty: 14 0RF lidocaine [Lidoderm] 5 % adhesive patch,medicated 1 patch topical DAILY Qty: 30 0RF Rx Instructions: leave on most painful area for up to 12 hrs No Action albuterol sulfate 90 mcg/actuation HFA aerosol inhaler 2 puff inhalation Q4-6H PRN (Reason: shortness of breath or wheezing) Qty: 6.7 0RF ipratropium bromide 17 mcg/actuation HFA aerosol inhaler 2 puff inhalation QID Qty: 12.9 0RF albuterol sulfate 2.5 mg /3 mL (0.083 %) solution for nebulization 2.5 mg Continuous Nebulization Q6HP PRN (Reason: shortness of breath or wheezing) Qty: 360 2RF sulfasalazine 500 mg tablet 1,000 mg PO BID Qty: 180 1RF cholecalciferol (vitamin D3) 1,250 mcg (50,000 unit) capsule 1,250 mcg PO QWEEK Qty: 12 0RF ascorbic acid (vitamin C) 500 mg tablet 500 mg PO DAILY Qty: 90 0RF Rx Instructions: Take with iron mecobalamin (vitamin B12) [B12 Active] 1,000 mcg tablet,chewable 1,000 mcg PO DAILY Qty: 90 3RF fluoxetine 20 mg capsule 20 mg PO DAILY Qty: 90 3RF Rx Instructions: Take with 10 mg to complete 30 mg dose fluoxetine 10 mg capsule See Rx Instructions .ROUTE .COMPLEX Qty: 90 3RF Dose Instruction: take 1 capsule by mouth once daily WITH 20MG CAP DAILY TOTAL 30 MG DAILY Rx Instructions: take 1 capsule by mouth once daily WITH 20MG CAP DAILY TOTAL 30 MG DAILY metoprolol succinate 100 mg tablet extended release 24 hr 100 mg PO DAILY Qty: 90 3RF duloxetine [Cymbalta] 30 mg capsule,delayed release(DR/EC) 30 mg PO DAILY Qty: 30 1RF oxycodone 10 mg tablet 10 mg PO Q8H PRN (Reason: pain) Qty: 21 0RF Rx Instructions: Must last 7d prednisone 5 mg tablet 5 mg PO DAILY Qty: 30 5RF Rx Instructions: start taking every day ferrous gluconate 324 mg (37.5 mg iron) tablet 324 mg PO DAILY Qty: 90 2RF Rx Instructions: start taking daily, with food or juice omeprazole 40 mg capsule,delayed release(DR/EC) 40 mg PO DAILY Qty: 90 3RF Rx Instructions: take 1 capsule by mouth once daily clotrimazole 10 mg tracy 10 mg mucous membrane 5XD Qty: 30 1RF cephalexin 500 mg capsule 500 mg PO TID Qty: 21 0RF clobetasol 0.05 % solution topical BID prednisone 50 mg tablet 50 mg PO DAILY Qty: 10 0RF zolmitriptan [Zomig] 5 mg tablet See Rx Instructions PO .COMPLEX Qty: 10 1RF Rx Instructions: take 1 tab at onset of headache; if no relief, may repeat 1 tab after at least 2 hrs; max = 2 tabs/24 hrs PO methocarbamol 750 mg tablet 750 mg PO QID 30 Days Qty: 120 2RF nortriptyline 10 mg capsule 10 mg PO BEDTIME Qty: 30 1RF lidocaine 5 % adhesive patch,medicated 1 patch topical DAILY Qty: 15 2RF Rx Instructions: leave on most painful area for up to 12 hrs mupirocin 2 % ointment 1 applic topical BID Qty: 22 1RF triamcinolone acetonide 0.5 % cream 1 applic topical BID Qty: 15 1RF Rx Instructions: Applied to affected areas potassium chloride 20 mEq tablet extended release 20 meq PO BID Qty: 10 0RF valacyclovir 1 gram tablet 1,000 mg PO TID Qty: 30 0RF meclizine 25 mg tablet 25 mg PO TID PRN (Reason: dizziness) Qty: 10 0RF ondansetron HCl 4 mg tablet 4 mg PO Q6H PRN (Reason: nausea and vomiting) Qty: 10 0RF naloxone [Narcan] 4 mg/actuation spray,non-aerosol 1 spray intranasal Q2M Qty: 2 0RF Rx Instructions: spray 1 dose into ONE nostril; alternate nostrils w each dose until help arrives mupirocin 2 % ointment 1 applic topical BID Qty: 22 0RF triamcinolone acetonide 0.5 % ointment 1 applic topical BID Qty: 15 0RF Disabled Parking Permit 1 1 % SEEINSTR Rx Instructions: Valid for 5 years amlodipine 5 mg tablet 5 mg PO DAILY Patient Comments: pt received dose in hospital 11/10/19 early AM admit to hydrochlorothiazide 25 mg tablet 12.5 mg PO QAM ipratropium-albuterol 0.5 mg-3 mg(2.5 mg base)/3 mL solution for nebulization 3 ml inhalation Q6H PRN (Reason: shortness of breath or wheezing) Qty: 90 0RF aspirin [Enteric Coated Aspirin] 81 mg tablet,delayed release (DR/EC) 81 mg PO DAILY Qty: 30 0RF nitroglycerin 0.4 mg tablet, sublingual 0.4 mg sublingual Q5M PRN (Reason: chest pain) Qty: 10 0RF Rx Instructions: do not exceed 3 doses per episode Referrals: Edilberto Snell, [Primary Care Provider] - Stand Alone Forms: Patient Portal/API/Survey ED Sign-out <Bob Lugo MD - Last Filed: 02/16/25 08:12> Cosign ED Attending Cosignature Attestation: I was immediately available in the department for consultation. ?This documentation has been reviewed and I agree with assessment and plan. Supervised by Bob Lugo MD
--- NOTE | 2025-02-10 12:54 | DI.CT.S_ITS ---
PROCEDURE: CT HEAD/BRAIN WO CON INDICATIONS: fall backward TECHNIQUE: Noncontrast 4.5 mm thick angled axial sections acquired from the foramen magnum to the vertex, with coronal and sagittal reformats. For radiation dose reduction, the following was used: automated exposure control, adjustment of mA and/or kV according to patient size. COMPARISON: [facility], CT, CT HEAD/BRAIN WO CON, 09/30/2023, 15:48. FINDINGS: Image quality: Diagnostic. CSF spaces: Basal cisterns are patent. No extra-axial fluid collections. The ventricles are symmetric in size and shape. Brain: No intracranial bleeds or mass effect. There is cerebral volume loss, with resultant ventricular and sulcal prominence. There are periventricular and deep white matter chronic small vessel ischemic changes. There is intracranial internal carotid artery atherosclerosis. Skull and face: Calvarium and visualized facial bones appear intact, without suspicious lesions. Sinuses: Visualized sinuses and mastoids are clear. IMPRESSION: No acute intracranial pathology. Dictated by: Hebert San M.D. on 02/10/2025 at 13:40 Approved by: Hebert San M.D. on 02/10/2025 at 13:43
--- NOTE | 2025-02-10 12:54 | DI.CT.S_ITS ---
PROCEDURE: CT THORACIC SPINE WO CON INDICATIONS: fall backward mid thoracic back pain TECHNIQUE: Noncontrast 3 mm thick sections acquired through the region of interest in the thoracic spine. Sagittal and coronal reformats were then constructed. For radiation dose reduction, the following was used: automated exposure control. COMPARISON: [facility], CT, CT CHEST WO CON, 11/05/2024, 15:42. FINDINGS: Image quality: Excellent. Bones: There is normal overall bony alignment. No acute vertebral body compression fractures. No suspicious sclerotic or lytic bony lesions. Central spinal canal is of normal overall caliber. Posterior spinal fixation hardware spanning T12 into the lumbar spine. Significant multilevel degenerative changes of the thoracic spine with disc height loss, vacuum disc phenomenon, osteophytosis and facet arthropathy. This is most pronounced within the lower thoracic spine. Decreased osseous mineralization. Soft tissues: No paravertebral masses or hematomas. Stable 4 mm left upper lobe nodule (2/36). Few additional scattered micro nodules and calcified granulomas are noted. Calcified mediastinal and hilar lymph nodes. Small splenic calcifications. Atherosclerotic vascular calcifications. IMPRESSION: No acute osseous abnormalities. Multilevel degenerative changes of the thoracic spine with thoracolumbar fixation hardware. Sequela of prior granulomatous disease. Dictated by: Hebert San M.D. on 02/10/2025 at 14:17 Approved by: Hebert San M.D. on 02/10/2025 at 14:21
--- NOTE | 2025-02-10 12:54 | DI.RAD.S_ITS ---
PROCEDURE: XR ELBOW RT MIN 3V INDICATIONS: fall backward r elbow pain TECHNIQUE: 3 views of the elbow were acquired. COMPARISON: None. FINDINGS: Bones: No fractures or dislocations. Degenerative changes of the elbow. No suspicious bony lesions. Soft tissues: No elbow joint effusion. No suspicious soft tissue calcifications. IMPRESSION: No acute osseous abnormality. If pain persists with conservative management, consider repeat x-ray in 10-14 days or cross-sectional imaging. Dictated by: Hebert San M.D. on 02/10/2025 at 13:48 Approved by: Hebert San M.D. on 02/10/2025 at 13:48
--- NOTE | 2025-02-10 12:54 | DI.CT.S_ITS ---
PROCEDURE: CT CERVICAL SPINE WO CON INDICATIONS: fall backward l neck pain in c collar TECHNIQUE: Noncontrast 3 mm thick sections acquired from the skull base to the T4 level. Sagittal and coronal reformats were then constructed. For radiation dose reduction, the following was used: automated exposure control, adjustment of mA and/or kV according to patient size. COMPARISON: [facility], CT, CT CERVICAL SPINE WO CON, 09/30/2023, 15:48. FINDINGS: Image quality: Excellent. Bones: No fractures or dislocations. Stable multilevel degenerative changes of the cervical spine. Stable mild retrolisthesis of C6 on C7 and anterolisthesis of C7 on T1. Visualized superior ribs are intact. Soft tissues: Prevertebral soft tissues are normal in thickness. No paravertebral hematomas. No apical pneumothoraces. Left upper lobe 4 mm ground-glass nodule is stable (2/64). IMPRESSION: No displaced fracture or traumatic subluxation. Stable left upper lobe 4 mm ground-glass nodule. Dictated by: Hebert San M.D. on 02/10/2025 at 14:13 Approved by: Hebert San M.D. on 02/10/2025 at 14:16
--- NOTE | 2025-02-10 12:54 | DI.RAD.S_ITS ---
PROCEDURE: XR CHEST 2V INDICATIONS: fall backward pain with deep breath mid back TECHNIQUE: 2 views of the chest were acquired. COMPARISON: [facility], CR, XR CHEST 2V, 01/06/2025, 15:40. [facility], CR, XR CHEST 1V, 08/18/2024, 9:09. FINDINGS: Surgical changes and devices: Bilateral shoulder arthroplasties. Thoracolumbar spine hardware. Lungs and pleura: Lungs are clear. No pleural effusions or pneumothorax. Mediastinum: Mediastinal contours are normal. Heart size is normal. Bones and chest wall: No suspicious bony abnormalities. Soft tissues appear unremarkable. IMPRESSION: No acute cardiopulmonary abnormality is seen. Dictated by: Hebert San M.D. on 02/10/2025 at 13:47 Approved by: Hebert San M.D. on 02/10/2025 at 13:48
[2025-02-10] MEDS: LIDOCAINE 5% PATCH 1 EACH TOP ×2 (13:53→14:00)
[2025-02-10] MEDS: OXYCODONE IR 5 MG TABLET 10 MG PO (14:01)
[2025-02-10 14:13] VITALS: BP 193/84; PULSE 59; RESP 22; O2SAT 97
[2025-02-10] MEDS: ONDANSETRON 4 MG ODT SL (14:46)
== END 2025-02-10 14:50 | disposition home or self-care (01) ==
PROVIDERS: Emergency Provider Physician Assistant; PCP Family Medicine
DX: S09.8XXA Other specified injuries of head, initial encounter (principal); M54.2 Cervicalgia; M54.6 Pain in thoracic spine; M25.521 Pain in right elbow; G89.29 Other chronic pain; M25.562 Pain in left knee; M54.50 Low back pain, unspecified; W18.30XA Fall on same level, unspecified, initial encounter
CPT/HCPCS: 70450; 71046; 72125; 72128; 73080; 99283; 99284

== ENCOUNTER 2025-02-24 22:05 | Emergency (ER) | payer MEDICARE, OTHER, SELFPAY ==
[2024-02-02 03:27] VITALS: BMI 29.4
[2025-02-24 22:18] VITALS: BP 193/98; PULSE 89; RESP 18; TEMP 36.9; O2SAT 97; BMI 29.7
--- NOTE | 2025-02-24 22:54 | ED_ITS ---
HPI - Skin/Abscess/Foreign Bdy General Chief complaint: Skin/Abscess/Foreign Body Stated complaint: rash all over body Time Seen by Provider: 02/24/25 22:54 History of Present Illness HPI narrative: 79-year-old male with past medical history of persistent diffuse pruritus for several years presenting for same he has been seen here previously for the same by me, at that time he states that the medications that he normally uses to help with his symptoms he was unable to find he presents with complaints of the same, he states that he is having diffuse pruritus again no change to his baseline, he states that he ran out of the medications that normally helps, he states that he does have an appointment his 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 He presents requesting refills of these medications Related Data Home Medications Medication Instructions Recorded Confirmed Disabled Parking Permit 1 % SEEINSTR 11/08/20 01/01/25 amlodipine 5 mg tablet 5 mg PO DAILY 11/08/22 01/01/25 hydrochlorothiazide 25 mg tablet 12.5 mg PO QAM 11/15/22 01/01/25 clobetasol 0.05 % scalp solution topical BID 12/11/24 01/01/25 Previous Rx's Medication Instructions Recorded albuterol sulfate 2.5 mg/3 mL 2.5 mg (3 mL) continuous 10/24/22 (0.083 %) solution for nebulization nebulization Q6HP PRN shortness of breath or wheezing #360 mL potassium chloride 20 mEq 20 meq PO BID #10 tabs 02/26/23 tablet,extended release ipratropium 0.5 mg-albuterol 3 mg 3 ml inhalation Q6H PRN shortness 03/19/23 (2.5 mg base)/3 mL nebulization of breath or wheezing #90 mL soln valacyclovir 1 gram tablet 1,000 mg PO TID #30 tabs 09/02/23 sulfasalazine 500 mg tablet 1,000 mg (2 x 500 mg) PO BID #180 11/28/23 tabs ascorbic acid (vitamin C) 500 mg 500 mg PO DAILY #90 tabs 12/13/23 tablet cholecalciferol (vitamin D3) 1,250 1,250 mcg PO QWEEK #12 caps 12/13/23 mcg (50,000 unit) capsule nortriptyline 10 mg capsule 10 mg PO BEDTIME #30 caps 12/17/23 meclizine 25 mg tablet 25 mg PO TID PRN dizziness #10 tabs 01/23/24 mecobalamin (vitamin B12) 1,000 1,000 mcg PO DAILY #90 tabs 02/11/24 mcg chewable tablet (B12 Active) fluoxetine 10 mg capsule See Rx Instructions .Route 04/20/24 .COMPLEX #90 caps fluoxetine 20 mg capsule 20 mg PO DAILY #90 caps 04/20/24 prednisone 5 mg tablet 5 mg PO DAILY #30 tabs 06/22/24 naloxone 4 mg/actuation nasal 1 spray intranasal Q2M #2 ea 08/05/24 spray (Narcan) ondansetron HCl 4 mg tablet 4 mg PO Q6H PRN nausea and 08/05/24 vomiting #10 tabs aspirin 81 mg tablet,delayed 81 mg PO DAILY #30 tabs 08/18/24 release (Enteric Coated Aspirin) nitroglycerin 0.4 mg sublingual 0.4 mg sublingual Q5M PRN chest 08/18/24 tablet pain #10 tabs lidocaine 5 % topical patch 1 patch topical DAILY #15 ea 09/29/24 albuterol sulfate 90 mcg/actuation 2 puff inhalation Q4-6H PRN 10/12/24 aerosol inhaler shortness of breath or wheezing #6.7 grams ipratropium bromide 17 2 puff inhalation QID #12.9 grams 10/12/24 mcg/actuation HFA aerosol inhaler metoprolol succinate 100 mg 100 mg PO DAILY #90 tabs 10/15/24 tablet,extended release 24 hr cephalexin 500 mg capsule 500 mg PO TID #21 caps 11/03/24 clotrimazole 10 mg tracy 10 mg mucous membrane 5XD #30 tabs 11/03/24 ferrous gluconate 324 mg (37.5 mg 324 mg PO DAILY #90 tabs 11/03/24 iron) tablet omeprazole 40 mg capsule,delayed 40 mg PO DAILY #90 caps 11/03/24 release duloxetine 30 mg capsule,delayed 30 mg PO DAILY #30 caps 11/10/24 release (Cymbalta) mupirocin 2 % topical ointment 1 applic topical BID #22 grams 12/04/24 triamcinolone acetonide 0.5 % 1 applic topical BID #15 grams 12/04/24 topical cream prednisone 50 mg tablet 50 mg PO DAILY #10 tabs 12/11/24 mupirocin 2 % topical ointment 1 applic topical BID #22 grams 12/24/24 triamcinolone acetonide 0.5 % 1 applic topical BID #15 grams 12/24/24 topical ointment methocarbamol 750 mg tablet 750 mg PO QID 30 days #120 tabs 01/01/25 zolmitriptan 5 mg tablet (Zomig) See Rx Instructions PO .COMPLEX 01/01/25 #10 tabs lidocaine 5 % topical patch 1 patch topical DAILY #30 ea 02/10/25 (Lidoderm) ondansetron 4 mg disintegrating 4 mg PO Q8H PRN nausea and 02/10/25 tablet vomiting #14 tabs oxycodone 10 mg tablet 10 mg PO Q8H PRN pain #21 tabs 02/19/25 diphenhydramine HCl 25 mg tablet 25 mg PO TID PRN itching 1 week 02/24/25 (Benadryl Allergy) #14 tabs methylprednisolone 4 mg tablets in See Rx Instructions PO .COMPLEX 02/24/25 a dose pack (Medrol (Dennis)) #21 ea mupirocin 2 % topical ointment 1 applic topical TID #22 grams 02/24/25 triamcinolone acetonide 0.5 % 1 applic topical BID #15 grams 02/24/25 topical cream Allergies Allergy/AdvReac Type Severity Reaction Status Date / Time cyclobenzaprine Allergy Severe Dizziness, Verified 02/11/25 12:10 [From Flexeril] I bounce off ag ibuprofen AdvReac Intermediate Redness of Verified 02/11/25 12:10 Skin acetaminophen [ACETAMINOPHEN] AdvReac Unknown Can't take Verified 02/11/25 12:10 r/t Hep C; upset stomach Review of Systems Review of Systems Narrative: General: Denies fever, chills, weight loss HEENT: Denies headache, eye drainage, eye irritation, head trauma, sore throat, voice change Cardiovascular: Denies any chest pain, palpitations, tachycardia Respiratory: Denies any shortness of breath, cough, wheeze, stridor GI/: Denies any abdominal pain, nausea, vomiting, diarrhea, bright red blood per rectum, melanotic stools, urinary frequency, urinary retention, dysuria, hematuria MSK: Denies any joint pain, muscle pains, swelling Skin: Positive rash Neuro: Denies any headache, lightheadedness, dizziness, fainting, weakness Psych: Denies SI/HI Patient History Medical History Dermatitis Folliculitis Thrush GERD (gastroesophageal reflux disease) Hyponatremia Bronchitis Impaired cognition Left knee pain Chronic diarrhea Eustachian tube dysfunction Seasonal allergic rhinitis Dyspepsia Anemia Tinea Abdominal wall pain in both lower quadrants Constipation Aftercare following left shoulder joint replacement surgery Preoperative clearance Left lateral epicondylitis Adhesive capsulitis Right wrist sprain Oral lesion Colles' fracture Right wrist pain Left shoulder strain Anxiety Fibromyalgia Sinus drainage Chronic ankle pain, bilateral Rheumatoid arthritis Acute exacerbation of chronic bronchitis Foraminal stenosis of lumbar region Peripheral neuropathy Pneumonia (~2017) Impotence (Unknown) Restless leg syndrome (Unknown) Arthritis (Unknown) Chronic pain syndrome (Unknown) Kidney stones (Unknown) Prostate cancer (Unknown) Skin cancer (Unknown) Hepatitis C (Unknown) Hypertension (Unknown) Migraines (Unknown) PTSD (post-traumatic stress disorder) (Unknown) Depression (Unknown) Surgical History S/P lumbar fusion History of lumbar fusion (05/10/22) History of ankle surgery 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 Social History marital status: household members: spouse lives independently: Yes occupational status: previously employed Tobacco: How many years used: 20 quit status: has quit before alcohol intake: former substance use type: former substance user and marijuana tobacco type: cigarettes alcohol intake frequency: holidays/special occasions only Exam Narrative Exam Narrative: General: Cooperative, well-developed, not in acute distress HEENT: Normocephalic, atraumatic, PERRLA, normal sclera, eyelids normal Neck: Active full range of motion, atraumatic Chest: Normal to inspection, negative crepitus, no overlying erythema ecchymosis Respiratory: Normal respiratory effort, not in acute respiratory distress, clear to auscultation bilaterally negative cough, wheeze, tachypnea, rhonchi, rales Cardiology: Regular rate rhythm negative gallop, murmur, rubs GI/: No tenderness to palpation, soft, non rigid, normal to inspection, exam deferred MSK: Full active range of motion in all 4 extremities, atraumatic, no tenderness to palpation of any bony prominences Skin: No obvious rashes noted but there does appear to be scattered dry spots noted to patient's bilateral upper extremity and chest and trunk, there is no involvement of the mucosal membrane palms of the hands or soles of the feet Neuro: Alert awake oriented x3, moves all 4 extremities spontaneously, cranial nerves intact, able to answer all questions appropriately follows commands appropriately Psych: Cooperative, negative suicidal or homicidal ideations Initial Vital Signs Initial Vital Signs: Vital Signs Temperature 98.5 F 02/24/25 22:18 Pulse Rate 89 02/24/25 22:18 Respiratory Rate 18 02/24/25 22:18 Blood Pressure 193/98 H 02/24/25 22:18 Pulse Oximetry 97 02/24/25 22:18 Oxygen Delivery Method Room Air 02/24/25 22:18 Course Vital Signs Vital signs: Vital Signs - 8 hr 02/24/25 22:18 Temperature 98.5 F Pulse Rate 89 Respiratory Rate 18 Blood Pressure 193/98 H Pulse Oximetry 97 Oxygen Delivery Method Room Air MDM - Skin/Abscess/Foreign Bdy Differential Diagnosis Differential diagnosis: Likely other (Cellulitis, contact dermatitis, psoriasis) MDM Narrative Medical decision making narrative: 79-year-old male with past medical history of chronic diffuse pruritus presenting for refill of his medication, he states that he ran out of the medication that normally helps with his diffuse pruritus, he states that he has an appointment with his district administrator tomorrow but the itchiness got so bad in decided come into the ED today for further evaluation treatment. He states that it is the same type of itchiness/rash that he was seen here previously by me, on exam there does not appear to be in obvious rash but there are scattered dry spots to his extremities and trunk but no rash noted to the palmar aspect soles of the feet or mucosal membrane. Patient is requesting his ointments and medication that helped previously. He was given strict return precautions verbalized understanding of this and agrees to being discharged home with outpatient follow up he will be discharged home with steroids, antihistamines and the following creams as before triamcinoline acetonide 0.5%, mupirocin 2% Discharge Plan Departure Patient Disposition: Home Clinical Impression: Pruritus Activity Restrictions/Additional Instructions: Please follow up with your district administrator for a scheduled appointment Please read the discharge instructions sheet carefully and bring all papers to all doctor follow-up visits, as it may contain information that your doctor may want to see. Disease processes change and evolve, if your symptoms worsen or if you develop any new symptoms that are concerning to you please return for evaluation. Your evaluation today does not show any evidence of any life- threatening/serious illnesses requiring admission to the hospital or surgery. Please follow-up with your doctor for re-evaluation in approximately 1 day. Seek immediate medical attention for any worrisome symptoms. *If you do not have a primary care provider please contact the [facility] Resource line at [phone]. They will ask some questions about your medical history and help get you set up with a doctor in the community. Prescriptions: New methylprednisolone [Medrol (Dennis)] 4 mg tablets,dose pack See Rx Instructions .ROUTE .COMPLEX Qty: 21 0RF Rx Instructions: for 6 days diphenhydramine HCl [Benadryl Allergy] 25 mg tablet 25 mg PO TID PRN (Reason: itching) 7 Days Qty: 14 0RF mupirocin 2 % ointment 1 applic topical TID Qty: 22 0RF triamcinolone acetonide 0.5 % cream 1 applic topical BID Qty: 15 0RF No Action albuterol sulfate 90 mcg/actuation HFA aerosol inhaler 2 puff inhalation Q4-6H PRN (Reason: shortness of breath or wheezing) Qty: 6.7 0RF ipratropium bromide 17 mcg/actuation HFA aerosol inhaler 2 puff inhalation QID Qty: 12.9 0RF albuterol sulfate 2.5 mg /3 mL (0.083 %) solution for nebulization 2.5 mg Continuous Nebulization Q6HP PRN (Reason: shortness of breath or wheezing) Qty: 360 2RF sulfasalazine 500 mg tablet 1,000 mg PO BID Qty: 180 1RF cholecalciferol (vitamin D3) 1,250 mcg (50,000 unit) capsule 1,250 mcg PO QWEEK Qty: 12 0RF ascorbic acid (vitamin C) 500 mg tablet 500 mg PO DAILY Qty: 90 0RF Rx Instructions: Take with iron mecobalamin (vitamin B12) [B12 Active] 1,000 mcg tablet,chewable 1,000 mcg PO DAILY Qty: 90 3RF fluoxetine 20 mg capsule 20 mg PO DAILY Qty: 90 3RF Rx Instructions: Take with 10 mg to complete 30 mg dose fluoxetine 10 mg capsule See Rx Instructions .ROUTE .COMPLEX Qty: 90 3RF Dose Instruction: take 1 capsule by mouth once daily WITH 20MG CAP DAILY TOTAL 30 MG DAILY Rx Instructions: take 1 capsule by mouth once daily WITH 20MG CAP DAILY TOTAL 30 MG DAILY metoprolol succinate 100 mg tablet extended release 24 hr 100 mg PO DAILY Qty: 90 3RF duloxetine [Cymbalta] 30 mg capsule,delayed release(DR/EC) 30 mg PO DAILY Qty: 30 1RF oxycodone 10 mg tablet 10 mg PO Q8H PRN (Reason: pain) Qty: 21 0RF Rx Instructions: Must last 7d prednisone 5 mg tablet 5 mg PO DAILY Qty: 30 5RF Rx Instructions: start taking every day ferrous gluconate 324 mg (37.5 mg iron) tablet 324 mg PO DAILY Qty: 90 2RF Rx Instructions: start taking daily, with food or juice omeprazole 40 mg capsule,delayed release(DR/EC) 40 mg PO DAILY Qty: 90 3RF Rx Instructions: take 1 capsule by mouth once daily clotrimazole 10 mg tracy 10 mg mucous membrane 5XD Qty: 30 1RF cephalexin 500 mg capsule 500 mg PO TID Qty: 21 0RF clobetasol 0.05 % solution topical BID prednisone 50 mg tablet 50 mg PO DAILY Qty: 10 0RF zolmitriptan [Zomig] 5 mg tablet See Rx Instructions PO .COMPLEX Qty: 10 1RF Rx Instructions: take 1 tab at onset of headache; if no relief, may repeat 1 tab after at least 2 hrs; max = 2 tabs/24 hrs PO methocarbamol 750 mg tablet 750 mg PO QID 30 Days Qty: 120 2RF nortriptyline 10 mg capsule 10 mg PO BEDTIME Qty: 30 1RF lidocaine 5 % adhesive patch,medicated 1 patch topical DAILY Qty: 15 2RF Rx Instructions: leave on most painful area for up to 12 hrs mupirocin 2 % ointment 1 applic topical BID Qty: 22 1RF triamcinolone acetonide 0.5 % cream 1 applic topical BID Qty: 15 1RF Rx Instructions: Applied to affected areas potassium chloride 20 mEq tablet extended release 20 meq PO BID Qty: 10 0RF valacyclovir 1 gram tablet 1,000 mg PO TID Qty: 30 0RF meclizine 25 mg tablet 25 mg PO TID PRN (Reason: dizziness) Qty: 10 0RF ondansetron HCl 4 mg tablet 4 mg PO Q6H PRN (Reason: nausea and vomiting) Qty: 10 0RF naloxone [Narcan] 4 mg/actuation spray,non-aerosol 1 spray intranasal Q2M Qty: 2 0RF Rx Instructions: spray 1 dose into ONE nostril; alternate nostrils w each dose until help arrives mupirocin 2 % ointment 1 applic topical BID Qty: 22 0RF triamcinolone acetonide 0.5 % ointment 1 applic topical BID Qty: 15 0RF Disabled Parking Permit 1 1 % SEEINSTR Rx Instructions: Valid for 5 years amlodipine 5 mg tablet 5 mg PO DAILY Patient Comments: pt received dose in hospital 11/10/19 early AM admit to AC hydrochlorothiazide 25 mg tablet 12.5 mg PO QAM ipratropium-albuterol 0.5 mg-3 mg(2.5 mg base)/3 mL solution for nebulization 3 ml inhalation Q6H PRN (Reason: shortness of breath or wheezing) Qty: 90 0RF aspirin [Enteric Coated Aspirin] 81 mg tablet,delayed release (DR/EC) 81 mg PO DAILY Qty: 30 0RF nitroglycerin 0.4 mg tablet, sublingual 0.4 mg sublingual Q5M PRN (Reason: chest pain) Qty: 10 0RF Rx Instructions: do not exceed 3 doses per episode ondansetron 4 mg tablet,disintegrating 4 mg PO Q8H PRN (Reason: nausea and vomiting) Qty: 14 0RF lidocaine [Lidoderm] 5 % adhesive patch,medicated 1 patch topical DAILY Qty: 30 0RF Rx Instructions: leave on most painful area for up to 12 hrs Referrals: Edilberto Snell DO [Primary Care Provider] - Stand Alone Forms: Patient Portal/API/Survey
[2025-02-24 23:00] VITALS: BP 185/97; PULSE 82; RESP 20; TEMP 36.6; O2SAT 97
[2025-02-24] MEDS: predniSONE 20 MG TABLET PO (23:02)
[2025-02-24] MEDS: diphenhydrAMINE 25 MG TABLET PO (23:06)
== END 2025-02-24 23:08 | disposition home or self-care (01) ==
PROVIDERS: Emergency Provider Student in an Organized Health Care Education/Training Program; PCP Family Medicine
DX: L29.9 Pruritus, unspecified (principal)
CPT/HCPCS: 99283; A9270

== ENCOUNTER 2025-03-02 03:22 | Emergency (ER) | payer MEDICARE, OTHER, SELFPAY ==
[2024-02-02 03:27] VITALS: BMI 29.4
[2025-03-02 03:55] VITALS: BP 188/88; PULSE 73; RESP 20; TEMP 36.6; O2SAT 99; BMI 29.7
== END 2025-03-02 05:01 | disposition left against medical advice (07) ==
PROVIDERS: Emergency Provider Emergency Medicine; PCP Family Medicine
DX: R21 Rash and other nonspecific skin eruption (principal)
CPT/HCPCS: 99281

== ENCOUNTER → 2025-03-31 13:39 | Outpatient (CLI) | payer MEDICARE, OTHER, SELFPAY ==
[2024-02-02 03:27] VITALS: BMI 29.4
== END ==
PROVIDERS: PCP Family Medicine; Referring Provider Dermatology; Visit Provider Dermatology
DX: L12.0 Bullous pemphigoid (principal); L20.89 Other atopic dermatitis
CPT/HCPCS: 36415; 83516; 86480

== ENCOUNTER → 2025-04-06 10:30 | Outpatient (CLI) | payer MEDICARE, OTHER, SELFPAY ==
[2024-02-02 03:27] VITALS: BMI 29.4
[2025-04-06 11:23] LABS: Add Manual Diff / Slide Review NO; Basophils Absolute Auto 0 /uL (0-100); Basophils Percent Auto 0.5 % (0-2); Eosinophils Absolute Auto 300 /uL (0-450); Eosinophils Percent Auto 3.8 % (2-4); Hematocrit 35.3 % (41-53); Hemoglobin 12.4 g/dL (13.5-17.5); Lymphocytes Absolute Auto 1300 /uL (1100-4500); Lymphocytes Percent Auto 16.3 % (25-40); Mean Corpuscular HGB Conc 35.1 % (30-36); Mean Corpuscular Hemoglobin 30.4 PG (26-34); Mean Corpuscular Volume 86.6 fL (80-100); Monocytes Absolute Auto 1000 /uL (0-900); Monocytes Percent Auto 12.2 % (3-14); Neutrophils Absolute Auto 5400 /uL (1500-7000); Neutrophils Percent Auto 67.2 % (50-75); Platelet Count 201 X10^3/uL (150-400); Red Blood Cell Count 4.08 X10^6/uL (4.5-5.9); Red Cell Distribution Width 15.2 % (11.6-14.8); White Blood Cell Count 8.1 X10^3/uL (4.5-11.0)
[2025-04-06 11:34] LABS: Hemoglobin A1C% w Est Avg Glu 4.8 % (4.0-6.0)
[2025-04-06 11:42] LABS: Alanine Aminotransferase 23 IU/L (<50); Albumin 3.9 g/dL (3.5-5.0); Albumin Globulin Ratio 1.5 (1.0-2.8); Alkaline Phosphatase 82 U/L (38-126); Aspartate Aminotransferase 25 IU/L (17-59); BUN Creatinine Ratio 22.5 (6-22); Bilirubin Total 0.7 mg/dL (0.2-1.3); Blood Urea Nitrogen 16 mg/dL (9-20); Calcium 8.6 mg/dL (8.4-10.2); Carbon Dioxide 28 mmol/L (22-32); Chloride 102 mmol/L (98-107); Estimated Glomerular Filt Rate > 60 mL/min (>60); Globulin 2.6 g/dL (1.7-4.1); Glucose 93 mg/dL (70-99); HEMOLYSIS < 15 (0-50); Potassium 3.4 mmol/L (3.4-5.1); Sodium 138 mmol/L (137-145); Total Protein 6.5 g/dL (6.3-8.2)
[2025-04-06 12:09] LABS: TSH w/ Reflex to FT4 0.51 uIU/mL (0.47-4.68)
== END ==
PROVIDERS: PCP Family Medicine; Referring Provider Family Medicine; Visit Provider Family Medicine
DX: Z01.810 Encounter for preprocedural cardiovascular examination (principal); M17.12 Unilateral primary osteoarthritis, left knee
CPT/HCPCS: 36415; 80053; 83036; 84443; 85025

== ENCOUNTER 2025-04-27 11:57 | Emergency (ER) | payer MEDICARE, OTHER, SELFPAY ==
[2024-02-02 03:27] VITALS: BMI 29.4
[2025-04-27 12:23] VITALS: BP 186/83; PULSE 68; RESP 19; TEMP 37; O2SAT 96; BMI 31.0
--- NOTE | 2025-04-27 12:32 | DI.RAD.S_ITS ---
PROCEDURE: XR CHEST 1V INDICATIONS: altered mental status TECHNIQUE: One view of the chest was acquired. COMPARISON: [facility], , XR CHEST 1V, 08/18/2024, 9:09. [facility], CR, XR CHEST 1V, 06/28/2024, 15:47. FINDINGS: Surgical changes and devices: Bilateral shoulder arthroplasties. Lumbar spinal fusion hardware. Lungs and pleura: Probable calcified granulomas in both lungs. No acute consolidation. No pleural effusions or pneumothorax. Mediastinum: Mediastinal contours appear normal. Heart size is normal. Bones and chest wall: No suspicious bony lesions. Overlying soft tissues appear unremarkable. IMPRESSION: No acute cardiopulmonary abnormality is seen. Approved by: Krishna Chavez M.D. on 04/27/2025 at 13:40
--- NOTE | 2025-04-27 12:39 | EKG_ITS ---
[facility] [address] [place] [address] Test Date: 2025-04-27 Pat Name: Barrett Tam Department: [facility] Room: Gender: Male [employer]: : 1945 Requested By: Order Number: [id number] Reading MD: Corey Mohan Measurements Intervals [place] Rate: 101 P: 23 ME: 138 QRS: 24 QRSD: 88 T: 2 QT: 388 QTc: 503 Interpretive Statements Sinus tachycardia with premature atrial complexes with aberrant conduction Nonspecific ST abnormality Electronically Signed On 04-29-2025 13:34:16 PDT by Corey Mohan
[2025-04-27 13:04] LABS: Add Manual Diff / Slide Review NO; Hematocrit 33.0 % (41-53); Hemoglobin 11.5 g/dL (13.5-17.5); Lymphocytes Absolute Auto 600 /uL (1100-4500); Mean Corpuscular HGB Conc 34.9 % (30-36); Mean Corpuscular Hemoglobin 30.2 PG (26-34); Mean Corpuscular Volume 86.6 fL (80-100); Platelet Count 276 X10^3/uL (150-400)
[2025-04-27 13:15] LABS: Alanine Aminotransferase 18 IU/L (<50); Albumin 3.9 g/dL (3.5-5.0); Albumin Globulin Ratio 1.2 (1.0-2.8); Alkaline Phosphatase 69 U/L (38-126); Blood Urea Nitrogen 6 mg/dL (9-20); Calcium 8.7 mg/dL (8.4-10.2); Carbon Dioxide 28 mmol/L (22-32); Chloride 103 mmol/L (98-107); Creatine Kinase 45 U/L (55-170); Estimated Glomerular Filt Rate > 60 mL/min (>60); Ethanol (ETOH) < 10 mg/dL (<10); Globulin 3.2 g/dL (1.7-4.1); Glucose 113 mg/dL (70-99); HEMOLYSIS < 15 (0-50); Potassium 3.1 mmol/L (3.4-5.1); Sodium 138 mmol/L (137-145); Total Protein 7.1 g/dL (6.3-8.2)
[2025-04-27 13:16] LABS: Lactate (Lactic Acid) 1.5 mmol/L (0.7-2.1)
[2025-04-27 13:27] LABS: Troponin I 0.019 ng/mL (0.01-0.034)
[2025-04-27 13:32] LABS: Procalcitonin 0.074 ng/mL (<0.5)
[2025-04-27] MEDS: POTASSIUM CHLORIDE 20 MEQ/15 ML UDC 40 MEQ PO (17:58)
--- NOTE | 2025-04-27 18:12 | ED.UPPEXIN ---
HPI - Extremity Injury (Upper) General Chief Complaint: Extremity Injury, Upper Stated Complaint: Possible Infection in left arm, pain in legs Time Seen by Provider: 04/27/25 13:51 History of Present Illness HPI narrative: 79-year-old gentleman history of chronic pain, arthritis, GERD, COPD, hypertension, persistent diffuse pruritus, former IV drug user presents with left upper extremity pain and swelling for the past few days noticed that it has been draining with yellow pus. Patient denies any fever, chills, recent IV drug use, foreign body sensation, or recent trauma to the area. Other than what is stated 14 point review of system is negative. Related Data Home Medications ?Medication ?Instructions ?Recorded ?Confirmed Disabled Parking Permit 1 % SEEINSTR 11/08/20 04/22/25 amlodipine 5 mg tablet 5 mg PO DAILY 11/08/22 04/22/25 hydrochlorothiazide 25 mg tablet 12.5 mg PO QAM 11/15/22 04/22/25 clobetasol 0.05 % scalp solution topical BID 12/11/24 04/22/25 Previous Rx's ?Medication ?Instructions ?Recorded albuterol sulfate 2.5 mg/3 mL 2.5 mg (3 mL) continuous 10/24/22 (0.083 %) solution for nebulization nebulization Q6HP PRN shortness of breath or wheezing #360 mL potassium chloride 20 mEq 20 meq PO BID #10 tabs 02/26/23 tablet,extended release ipratropium 0.5 mg-albuterol 3 mg 3 ml inhalation Q6H PRN shortness 03/19/23 (2.5 mg base)/3 mL nebulization of breath or wheezing #90 mL soln valacyclovir 1 gram tablet 1,000 mg PO TID #30 tabs 09/02/23 sulfasalazine 500 mg tablet 1,000 mg (2 x 500 mg) PO BID #180 11/28/23 tabs ascorbic acid (vitamin C) 500 mg 500 mg PO DAILY #90 tabs 12/13/23 tablet cholecalciferol (vitamin D3) 1,250 1,250 mcg PO QWEEK #12 caps 12/13/23 mcg (50,000 unit) capsule nortriptyline 10 mg capsule 10 mg PO BEDTIME #30 caps 12/17/23 meclizine 25 mg tablet 25 mg PO TID PRN dizziness #10 tabs 01/23/24 mecobalamin (vitamin B12) 1,000 1,000 mcg PO DAILY #90 tabs 02/11/24 mcg chewable tablet (B12 Active) fluoxetine 10 mg capsule See Rx Instructions .Route 04/20/24 .COMPLEX #90 caps fluoxetine 20 mg capsule 20 mg PO DAILY #90 caps 04/20/24 prednisone 5 mg tablet 5 mg PO DAILY #30 tabs 06/22/24 naloxone 4 mg/actuation nasal 1 spray intranasal Q2M #2 ea 08/05/24 spray (Narcan) ondansetron HCl 4 mg tablet 4 mg PO Q6H PRN nausea and 08/05/24 vomiting #10 tabs aspirin 81 mg tablet,delayed 81 mg PO DAILY #30 tabs 08/18/24 release (Enteric Coated Aspirin) nitroglycerin 0.4 mg sublingual 0.4 mg sublingual Q5M PRN chest 08/18/24 tablet pain #10 tabs albuterol sulfate 90 mcg/actuation 2 puff inhalation Q4-6H PRN 10/12/24 aerosol inhaler shortness of breath or wheezing #6.7 grams ipratropium bromide 17 2 puff inhalation QID #12.9 grams 10/12/24 mcg/actuation HFA aerosol inhaler metoprolol succinate 100 mg 100 mg PO DAILY #90 tabs 10/15/24 tablet,extended release 24 hr cephalexin 500 mg capsule 500 mg PO TID #21 caps 11/03/24 clotrimazole 10 mg tracy 10 mg mucous membrane 5XD #30 tabs 11/03/24 ferrous gluconate 324 mg (37.5 mg 324 mg PO DAILY #90 tabs 11/03/24 iron) tablet omeprazole 40 mg capsule,delayed 40 mg PO DAILY #90 caps 11/03/24 release duloxetine 30 mg capsule,delayed 30 mg PO DAILY #30 caps 11/10/24 release (Cymbalta) mupirocin 2 % topical ointment 1 applic topical BID #22 grams 12/04/24 triamcinolone acetonide 0.5 % 1 applic topical BID #15 grams 12/04/24 topical cream prednisone 50 mg tablet 50 mg PO DAILY #10 tabs 12/11/24 mupirocin 2 % topical ointment 1 applic topical BID #22 grams 12/24/24 triamcinolone acetonide 0.5 % 1 applic topical BID #15 grams 12/24/24 topical ointment methocarbamol 750 mg tablet 750 mg PO QID 30 days #120 tabs 01/01/25 lidocaine 5 % topical patch 1 patch topical DAILY #30 ea 02/10/25 (Lidoderm) ondansetron 4 mg disintegrating 4 mg PO Q8H PRN nausea and 02/10/25 tablet vomiting #14 tabs methylprednisolone 4 mg tablets in See Rx Instructions PO .COMPLEX 02/24/25 a dose pack (Medrol (Dennis)) #21 ea mupirocin 2 % topical ointment 1 applic topical TID #22 grams 02/24/25 triamcinolone acetonide 0.5 % 1 applic topical BID #15 grams 02/24/25 topical cream sumatriptan succinate 100 mg tablet See Rx Instructions PO .COMPLEX 03/01/25 #10 tabs oxycodone 10 mg tablet 10 mg PO TID PRN pain #42 tabs 04/22/25 lidocaine 5 % topical patch 1 patch topical DAILY #15 ea 04/23/25 hydrocodone 5 mg-acetaminophen 325 1 tab PO Q4-6H PRN pain #20 tabs 04/27/25 mg tablet sulfamethoxazole 800 1 tab PO Q12H #14 tabs 04/27/25 mg-trimethoprim 160 mg tablet (Bactrim DS) tramadol 50 mg tablet 50 mg PO Q8H PRN pain #20 tabs 04/27/25 Allergies Allergy/AdvReac Type Severity Reaction Status Date / Time cyclobenzaprine (From Allergy Severe Dizziness, Verified 04/27/25 12:24 Flexeril) I bounce off ag ibuprofen AdvReac Intermediate Redness of Verified 04/27/25 12:24 Skin acetaminophen (ACETAMINOPHEN) AdvReac Unknown Can't take Verified 04/27/25 12:24 r/t Hep C; upset stomach Review of Systems Review of Systems ROS Unobtainable: All systems reviewed & are unremarkable except as noted in HPI and below Patient History Medical History Encounter for pre-operative cardiovascular clearance Bullous pemphigoid Primary osteoarthritis of left knee Moderate substance use disorder Dermatitis Folliculitis Thrush GERD (gastroesophageal reflux disease) Hyponatremia Bronchitis Impaired cognition Left knee pain Chronic diarrhea Eustachian tube dysfunction Seasonal allergic rhinitis Dyspepsia Anemia Tinea Abdominal wall pain in both lower quadrants Constipation Aftercare following left shoulder joint replacement surgery Preoperative clearance Left lateral epicondylitis Adhesive capsulitis Right wrist sprain Oral lesion Colles' fracture Right wrist pain Left shoulder strain Anxiety Fibromyalgia Sinus drainage Chronic ankle pain, bilateral Rheumatoid arthritis Acute exacerbation of chronic bronchitis Foraminal stenosis of lumbar region Peripheral neuropathy Pneumonia (~2018) Impotence (Unknown) Restless leg syndrome (Unknown) Arthritis (Unknown) Chronic pain syndrome (Unknown) Kidney stones (Unknown) Prostate cancer (Unknown) Skin cancer (Unknown) Hepatitis C (Unknown) Hypertension (Unknown) Migraines (Unknown) PTSD (post-traumatic stress disorder) (Unknown) Depression (Unknown) Surgical History 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 Social History marital status: household members: spouse lives independently: Yes occupational status: previously employed Tobacco: How many years used: 20 quit status: has quit before alcohol intake: former substance use type: former substance user and marijuana tobacco type: cigarettes alcohol intake frequency: holidays/special occasions only Exam Narrative Exam Narrative: GENERAL: [79] year old patient appears stated age. Well-developed patient, in mild distress. HEAD: Atraumatic. Normocephalic. EYES: Pupils equal round and reactive. Extraocular motions intact. No scleral icterus. No injection or drainage. NECK: Trachea midline. Non tender CARDIOVASCULAR: Regular rate and rhythm without murmurs, gallops, or rubs. RESPIRATORY: Clear to auscultation. Breath sounds equal bilaterally. No wheezes, rales, or rhonchi. GASTROINTESTINAL: Abdomen soft, non-tender, nondistended. EXTREMITIES: LUE abscess just above antecubital fossa , with min fluctuance with no surrounding cellulitis, motor/sensory intact +2 rad pulse cap refil <2secs BACK: Nontender without deformity or crepitance. No flank tenderness. NEURO: AOx3. SKIN: No rash or erythema of visible areas Initial Vital Signs Initial Vital Signs: Vital Signs Temperature 98.6 F 04/27/25 12:23 Pulse Rate 68 04/27/25 12:23 Respiratory Rate 19 04/27/25 12:23 Blood Pressure 186/83 H 04/27/25 12:23 Pulse Oximetry 96 04/27/25 12:23 Oxygen Delivery Method Room Air 04/27/25 12:23 Procedures Abscess I/D I&D #1: Time of procedure: 19:15 Site: upper extremity Side (if applicable): right Local Anesthetic: lidocaine 1% and with epi Amount of anesthesia used (mL): 2 Technique: incised with #11 blade Amount of fluid expressed (mL): 0 Irrigation: No Packing used?: none Course Orders Ordered: ED Orders 04/27/25 12:32 XR chest 1V Stat Urine Drug Screen, Rapid Stat EKG-12 Lead Stat 04/27/25 12:49 Blood Culture Stat Complete Blood Count AUTO DIFF Stat Comprehensive Metabolic Panel Stat Ethanol (ETOH) Stat Lactate (Lactic Acid) Stat Procalcitonin Stat Troponin & CK Cardiac Panel Stat Discontinued Medications Potassium Chloride (Potassium Chloride 20 Meq/15 Ml Udc) 40 meq PO NOW ONE Stop: 04/27/25 13:53 Last Admin: 04/27/25 17:58 Dose: 40 meq Documented By: Vital Signs Vital signs: Vital Signs - 8 hr 04/27/25 12:23 Temperature 98.6 F Pulse Rate 68 Respiratory Rate 19 Blood Pressure 186/83 H Pulse Oximetry 96 Oxygen Delivery Method Room Air MDM - Extremity Injury (Upper) Lab Data 04/27/25 12:49 04/27/25 12:49 Labs: Lab Results 04/27/25 Range/Units 12:49 WBC 4.1 L (4.5-11.0) X10^3/uL RBC 3.82 L (4.5-5.9) X10^6/uL Hgb 11.5 L (13.5-17.5) g/dL Hct 33.0 L (41-53) % MCV 86.6 (80-100) fL MCH 30.2 (26-34) PG MCHC 34.9 (30-36) % RDW 14.5 (11.6-14.8) % Plt Count 276 (150-400) X10^3/uL Neut % (Auto) 56.8 (50-75) % Lymph % (Auto) 15.7 L (25-40) % [place] % (Auto) 17.5 H (3-14) % Eos % (Auto) 8.9 H (2-4) % Baso % (Auto) 1.1 (0-2) % Neut # (Auto) 2300 (4735-2778) /uL Lymph # (Auto) 600 L (1155-0546) /uL [place] # (Auto) 700 (0-900) /uL Eos # (Auto) 400 (0-450) /uL Baso # (Auto) 0 (0-100) /uL Sodium 138 (137-145) mmol/L Potassium 3.1 L (3.4-5.1) mmol/L Chloride 103 (98-107) mmol/L Carbon Dioxide 28 (22-32) mmol/L BUN 6 L (9-20) mg/dL Creatinine 0.63 L (0.66-1.25) mg/dL Estimated GFR > 60 (>60) mL/min BUN/Creatinine Ratio 9.5 (6-22) Glucose 113 H (70-99) mg/dL Lactate 1.5 (0.7-2.1) mmol/L Calcium 8.7 (8.4-10.2) mg/dL Total Bilirubin 0.5 (0.2-1.3) mg/dL AST 27 (17-59) IU/L ALT 18 (<50) IU/L Alkaline Phosphatase 69 (38-126) U/L Total Creatine Kinase 45 L (55-170) U/L Troponin I 0.019 (0.01-0.034) ng/mL Total Protein 7.1 (6.3-8.2) g/dL Albumin 3.9 (3.5-5.0) g/dL Globulin 3.2 (1.7-4.1) g/dL Albumin/Globulin Ratio 1.2 (1.0-2.8) Procalcitonin 0.074 (<0.5) ng/mL Ethyl Alcohol < 10 (<10) mg/dL MDM Narrative Medical decision making narrative: Vital signs, nurse triage note, medication list, previous ER visits all on imaging reviewed. I attempted to drain the abscess but was only able to get blood despite attempting to loculations with no success. We will start on Bactrim and [place] and have patient do warm soaks and be re-evaluated in 2 3 days. Differential diagnosis includes abscess cellulitis MRSA. Discharge Plan Departure Patient Disposition: Home Clinical Impression: Abscess Instructions: DI for Skin Abscess Activity Restrictions/Additional Instructions: Return with new or worsening symptoms. Take your medicines as directed. Follow up in 2-3 days for re-evaluation. Warm soaks left upper extremity 3 times a day for 20 minutes Prescriptions: New sulfamethoxazole-trimethoprim [Bactrim DS] 800-160 mg tablet 1 tab PO Q12H Qty: 14 0RF hydrocodone-acetaminophen 5-325 mg tablet 1 tab PO Q4-6H PRN (Reason: pain) Qty: 20 0RF tramadol 50 mg tablet 50 mg PO Q8H PRN (Reason: pain) Qty: 20 0RF No Action albuterol sulfate 90 mcg/actuation HFA aerosol inhaler 2 puff inhalation Q4-6H PRN (Reason: shortness of breath or wheezing) Qty: 6.7 0RF ipratropium bromide 17 mcg/actuation HFA aerosol inhaler 2 puff inhalation QID Qty: 12.9 0RF albuterol sulfate 2.5 mg /3 mL (0.083 %) solution for nebulization 2.5 mg Continuous Nebulization Q6HP PRN (Reason: shortness of breath or wheezing) Qty: 360 2RF sulfasalazine 500 mg tablet 1,000 mg PO BID Qty: 180 1RF cholecalciferol (vitamin D3) 1,250 mcg (50,000 unit) capsule 1,250 mcg PO QWEEK Qty: 12 0RF ascorbic acid (vitamin C) 500 mg tablet 500 mg PO DAILY Qty: 90 0RF Rx Instructions: Take with iron mecobalamin (vitamin B12) [B12 Active] 1,000 mcg tablet,chewable 1,000 mcg PO DAILY Qty: 90 3RF fluoxetine 20 mg capsule 20 mg PO DAILY Qty: 90 3RF Rx Instructions: Take with 10 mg to complete 30 mg dose fluoxetine 10 mg capsule See Rx Instructions .ROUTE .COMPLEX Qty: 90 3RF Dose Instruction: take 1 capsule by mouth once daily WITH 20MG CAP DAILY TOTAL 30 MG DAILY Rx Instructions: take 1 capsule by mouth once daily WITH 20MG CAP DAILY TOTAL 30 MG DAILY metoprolol succinate 100 mg tablet extended release 24 hr 100 mg PO DAILY Qty: 90 3RF duloxetine [Cymbalta] 30 mg capsule,delayed release(DR/EC) 30 mg PO DAILY Qty: 30 1RF sumatriptan succinate 100 mg tablet See Rx Instructions PO .COMPLEX Qty: 10 0RF Rx Instructions: take 1 tab at onset of headache; if no relief, may repeat 1 tab after at least 2 hrs; max = 2 tabs/24 hrs PO lidocaine 5 % adhesive patch,medicated 1 patch topical DAILY Qty: 15 2RF Rx Instructions: leave on most painful area for up to 12 hrs prednisone 5 mg tablet 5 mg PO DAILY Qty: 30 5RF Rx Instructions: start taking every day ferrous gluconate 324 mg (37.5 mg iron) tablet 324 mg PO DAILY Qty: 90 2RF Rx Instructions: start taking daily, with food or juice omeprazole 40 mg capsule,delayed release(DR/EC) 40 mg PO DAILY Qty: 90 3RF Rx Instructions: take 1 capsule by mouth once daily clotrimazole 10 mg tracy 10 mg mucous membrane 5XD Qty: 30 1RF cephalexin 500 mg capsule 500 mg PO TID Qty: 21 0RF clobetasol 0.05 % solution topical BID prednisone 50 mg tablet 50 mg PO DAILY Qty: 10 0RF methocarbamol 750 mg tablet 750 mg PO QID 30 Days Qty: 120 2RF nortriptyline 10 mg capsule 10 mg PO BEDTIME Qty: 30 1RF mupirocin 2 % ointment 1 applic topical BID Qty: 22 1RF triamcinolone acetonide 0.5 % cream 1 applic topical BID Qty: 15 1RF Rx Instructions: Applied to affected areas oxycodone 10 mg tablet 10 mg PO TID PRN (Reason: pain) Qty: 42 0RF Rx Instructions: Must last 2 weeks Next refill May 05, 2025 potassium chloride 20 mEq tablet extended release 20 meq PO BID Qty: 10 0RF valacyclovir 1 gram tablet 1,000 mg PO TID Qty: 30 0RF meclizine 25 mg tablet 25 mg PO TID PRN (Reason: dizziness) Qty: 10 0RF ondansetron HCl 4 mg tablet 4 mg PO Q6H PRN (Reason: nausea and vomiting) Qty: 10 0RF naloxone [Narcan] 4 mg/actuation spray,non-aerosol 1 spray intranasal Q2M Qty: 2 0RF Rx Instructions: spray 1 dose into ONE nostril; alternate nostrils w each dose until help arrives mupirocin 2 % ointment 1 applic topical BID Qty: 22 0RF triamcinolone acetonide 0.5 % ointment 1 applic topical BID Qty: 15 0RF Disabled Parking Permit 1 1 % SEEINSTR Rx Instructions: Valid for 5 years amlodipine 5 mg tablet 5 mg PO DAILY Patient Comments: pt received dose in hospital 11/10/19 early AM admit to hydrochlorothiazide 25 mg tablet 12.5 mg PO QAM ipratropium-albuterol 0.5 mg-3 mg(2.5 mg base)/3 mL solution for nebulization 3 ml inhalation Q6H PRN (Reason: shortness of breath or wheezing) Qty: 90 0RF aspirin [Enteric Coated Aspirin] 81 mg tablet,delayed release (DR/EC) 81 mg PO DAILY Qty: 30 0RF nitroglycerin 0.4 mg tablet, sublingual 0.4 mg sublingual Q5M PRN (Reason: chest pain) Qty: 10 0RF Rx Instructions: do not exceed 3 doses per episode ondansetron 4 mg tablet,disintegrating 4 mg PO Q8H PRN (Reason: nausea and vomiting) Qty: 14 0RF lidocaine [Lidoderm] 5 % adhesive patch,medicated 1 patch topical DAILY Qty: 30 0RF Rx Instructions: leave on most painful area for up to 12 hrs methylprednisolone [Medrol (Dennis)] 4 mg tablets,dose pack See Rx Instructions .ROUTE .COMPLEX Qty: 21 0RF Rx Instructions: for 6 days mupirocin 2 % ointment 1 applic topical TID Qty: 22 0RF triamcinolone acetonide 0.5 % cream 1 applic topical BID Qty: 15 0RF Referrals: Edilberto Snell DO [Primary Care Provider, Family Practice] Stand Alone Forms: Patient Portal/API
[2025-04-27] MEDS: LIDOCAINE 1% W/EPI 10ML 4 ML INJ (18:53)
[2025-04-27] MEDS: MORPHINE 4 MG/ML INJ IM (18:53)
[2025-04-27 19:45] VITALS: BP 155/98; PULSE 96; RESP 19; TEMP 36.3; O2SAT 94
== END 2025-04-27 19:46 | disposition home or self-care (01) ==
PROVIDERS: Emergency Medicine; Emergency Provider Family Medicine; Family Provider Family Medicine; PCP Family Medicine
DX: L02.414 Cutaneous abscess of left upper limb (principal); R41.82 Altered mental status, unspecified
CPT/HCPCS: 10060; 71045; 80053; 80320; 82550; 83605; 84145; 84484; 85025; 87040; 87070; 87077; 87186; 87205; 93005; 96372; 99284; J2270

== ENCOUNTER 2025-04-29 18:38 | Emergency (ER) | payer MEDICARE, OTHER, SELFPAY ==
[2024-02-02 03:27] VITALS: BMI 29.4
[2025-04-29 18:42] VITALS: BP 150/70; PULSE 66; RESP 18; TEMP 36.8; O2SAT 99; BMI 29.7
--- NOTE | 2025-04-29 18:46 | DI.RAD.S_ITS ---
PROCEDURE: XR KNEE RT 3V INDICATIONS: fall, pain TECHNIQUE: 3 views of the knee were acquired. COMPARISON: [facility], [facility]RU[facility], XR KNEE ARTHRITIC SERIES , 01/27/2025, 9:32. FINDINGS: Bones: Postsurgical changes from medial unicompartmental knee arthroplasty with hardware components in expected positions. No acute osseous fracture. Small suprapatellar enthesophyte. Soft tissues: No joint effusion. No suspicious soft tissue calcifications. IMPRESSION: Postsurgical changes from medial unicompartmental knee arthroplasty. No acute osseous abnormality. If there is continued clinical concern or persistent symptoms, repeat radiographs or cross-sectional imaging (e.g. CT, MRI) may be helpful for further evaluation. Approved by: Krishna Chavez M.D. on 04/29/2025 at 19:51
--- NOTE | 2025-04-29 18:46 | DI.RAD.S_ITS ---
PROCEDURE: XR ANKLE RT MIN 3V INDICATIONS: fall, pain TECHNIQUE: 3 views of the ankle were acquired. COMPARISON: None. FINDINGS: Bones: Postsurgical changes from tibiotalar arthroplasty with hardware components in expected positions. No acute osseous fracture is seen. Chronic appearing ossifications are seen adjacent to the medial and lateral malleoli that are likely related to remote prior injuries or heterotopic calcification. Soft tissues: Mild soft tissue edema surrounding the ankle. IMPRESSION: Postsurgical changes from tibiotalar arthroplasty. No acute osseous abnormality. If there is continued clinical concern or persistent symptoms, repeat radiographs or cross-sectional imaging (e.g. CT, MRI) may be helpful for further evaluation. Approved by: Krishna Chavez M.D. on 04/29/2025 at 19:49
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
--- NOTE | 2025-04-29 20:27 | DI.CT.S_ITS ---
PROCEDURE: CT PEL WO CON INDICATIONS: trauma TECHNIQUE: Noncontrast 3 mm axial sections acquired through the bony pelvis, with coronal and sagittal reformatting. COMPARISON: CT, CT ABDOMEN PELVIS W CON, 09/09/2023, 15:46. Merged With [facility], CR, XR HIP W PEL IF DONE LT 2V, 01/06/2025, 15:40. FINDINGS: Image quality: Excellent. Bones: L4 surgical hardware as well as fixation screw traversing the right iliac bone. Fixation at the pubic symphysis is also present. All hardware appears intact. Soft tissues: No obstruction. Penile prosthesis is present. Is distended. IMPRESSION: Postsurgical changes as above. No visualized acute fracture. Dictated by: Kaci Calabrese M.D. on 04/29/2025 at 21:19 Approved by: Kaci Caalbrese M.D. on 04/29/2025 at 21:21
--- NOTE | 2025-04-29 20:27 | DI.CT.S_ITS ---
PROCEDURE: CT LE RT WO CON INDICATIONS: pain/trauma TECHNIQUE: Noncontrast 3 mm axial sections acquired of the lower extremity , with coronal and sagittal reformats. COMPARISON: [facility], CR, XR KNEE RT 3V, 04/29/2025, 18:48. [facility], CR, XR ANKLE RT MIN 3V, 04/29/2025, 18:48. FINDINGS: Image quality: Excellent. Bones: No visualized fracture or dislocation. Medial knee hemiarthroplasty is present as well tibiotalar arthroplasty. Hardware is intact without hardware fracture or periprosthetic lucency to suggest loosening. Alignment is stable. Soft tissues: No organized fluid collection. Muscular structures are within normal limits. IMPRESSION: Postsurgical changes. No visualized acute fracture. Dictated by: Kaci Calabrese M.D. on 04/29/2025 at 21:22 Approved by: Kaci Calabrese M.D. on 04/29/2025 at 21:26
[2025-04-29 20:51] VITALS: PULSE 65; O2SAT 98
[2025-04-29 20:53] VITALS: BP 196/97; PULSE 64; O2SAT 98
[2025-04-29] MEDS: MORPHINE 4 MG/ML INJ IM (20:54)
[2025-04-29 21:00] VITALS: PULSE 64; O2SAT 97
[2025-04-29] MEDS: HYDROMORPHONE 1 MG INJ IM (22:48)
[2025-04-29 22:55] LABS: Add Manual Diff / Slide Review NO; Hematocrit 34.6 % (41-53); Hemoglobin 12.0 g/dL (13.5-17.5); Lymphocytes Absolute Auto 1600 /uL (1100-4500); Mean Corpuscular HGB Conc 34.7 % (30-36); Mean Corpuscular Hemoglobin 30.0 PG (26-34); Mean Corpuscular Volume 86.5 fL (80-100); Platelet Count 287 X10^3/uL (150-400)
[2025-04-29 23:00] LABS: INR 1.0 (0.9-1.3); Prothrombin Time 11.8 SECONDS (9.4-12.5)
[2025-04-29 23:02] LABS: PTT Partial Thromboplastin Tim 29 SECONDS (25.1-36.5)
[2025-04-29 23:04] LABS: Alanine Aminotransferase 20 IU/L (<50); Albumin 3.9 g/dL (3.5-5.0); Albumin Globulin Ratio 1.2 (1.0-2.8); Alkaline Phosphatase 85 U/L (38-126); Blood Urea Nitrogen 12 mg/dL (9-20); Calcium 8.2 mg/dL (8.4-10.2); Carbon Dioxide 24 mmol/L (22-32); Chloride 103 mmol/L (98-107); Estimated Glomerular Filt Rate > 60 mL/min (>60); Globulin 3.2 g/dL (1.7-4.1); Glucose 82 mg/dL (70-99); HEMOLYSIS < 15 (0-50); Potassium 3.8 mmol/L (3.4-5.1); Sodium 138 mmol/L (137-145); Total Protein 7.1 g/dL (6.3-8.2)
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
[2025-04-30 00:46] LABS: Creatine Kinase 57 U/L (55-170)
== END 2025-04-29 23:49 | disposition home or self-care (01) ==
PROVIDERS: Emergency Provider Emergency Medicine; Family Provider Family Medicine; PCP Family Medicine
DX: M25.561 Pain in right knee (principal); W22.8XXA Striking against or struck by other objects, initial encounter
CPT/HCPCS: 36415; 72192; 73562; 73610; 73700; 80053; 82550; 85025; 85610; 85730; 96372; 99284; J1171; J2270

== ENCOUNTER 2025-05-13 13:21 | Emergency (ER) | payer MEDICARE, OTHER, SELFPAY ==
[2024-02-02 03:27] VITALS: BMI 29.4
[2025-05-13 14:03] VITALS: BP 153/72; PULSE 64; RESP 20; TEMP 37; O2SAT 97; BMI 29.7
--- NOTE | 2025-05-13 14:45 | ED_ITS ---
HPI - Back Pain/Injury <Joy Valdez PA-C - Last Filed: 05/13/25 17:36> General Chief Complaint: Back Pain/Injury Stated Complaint: Fall,bilaterl knee pain and low back pain Time Seen by Provider: 05/13/25 13:24 History of Present Illness HPI Narrative: Mr. Barrett Tam is a pleasant 79-year-old male with a past medical history of chronic pain, arthritis, GERD, COPD, hypertension, former IVDU who presents to the emergency department for bilateral knee pain and low back pain after a fall that occurred just prior to arrival. I have seen Barrett many times in the ED for similar chief complaints. Unfortunately he has very bad arthritis and was scheduled to have left knee surgery but this had to be postponed. Today while walking into his primary care doctor's office, he states that his left knee buckled and gave out on him causing him to fall onto the right buttocks. He is now having exacerbation of his low back pain and is bilateral knee pain. States that he has having a muscle spasm in his left glute. He is ambulatory independently with pain but no weakness. He states that his range of motion is at his baseline he does not want any x-rays. He is hoping for something to help with the spasms in his low back, he states he is out of all pain medicine and muscle relaxers at home. He did not hit his head or sustain any other injuries. No chest pain, shortness of breath, dizziness, lightheadedness, blood thinners, open wounds. He was advised to use a walker however he typically does not use this. No fevers, chills, bowel or bladder dysfunction, saddle anesthesia or direct trauma to the back. Related Data Home Medications ?Medication ?Instructions ?Recorded ?Confirmed Disabled Parking Permit 1 % SEEINSTR 11/08/20 amlodipine 5 mg tablet 5 mg PO DAILY 11/08/2204/22 hydrochlorothiazide 25 mg tablet 12.5 mg PO QAM 04/22/25 clobetasol 0.05 % scalp solution topical BID 12/11/24 04/22/25 Previous Rx's ?Medication ?Instructions ?Recorded albuterol sulfate 2.5 mg/3 mL 2.5 mg (3 mL) continuous 10/24/22 (0.083 %) solution for nebulization nebulization Q6HP PRN shortness of breath or wheezing #360 mL potassium chloride 20 mEq 20 meq PO BID #10 tabs 02/26 tablet,extended release ipratropium 0.5 mg-albuterol 3 mg 3 ml inhalation Q6H PRN shortness 03/19/23 (2.5 mg base)/3 mL nebulization of breath or wheezing #90 mL soln valacyclovir 1 gram tablet 1,000 mg PO TID #30 tabs sulfasalazine 500 mg tablet 1,000 mg (2 x 500 mg) PO B ID #180 11/28/23 tabs ascorbic acid (vitamin C) 500 mg 500 mg PO DAILY #90 t abs 12/13/23 tablet cholecalciferol (vitamin D3) 1,250 1,250 mcg PO QWEEK #12 caps 12/13/23 mcg (50,000 unit) capsule nortriptyline 10 mg capsule 10 mg PO BEDTIME #30 caps 12/17/23 meclizine 25 mg tablet 25 mg PO TID PRN dizziness # 10 tabs 01/23/24 mecobalamin (vitamin B12) 1,000 1,000 mcg PO DAILY #90 tabs 02/11/24 mcg chewable tablet (B12 Active) fluoxetine 10 mg capsule See Rx Instructions .Route 0 04/20/24 .COMPLEX #90 caps fluoxetine 20 mg capsule 20 mg PO DAILY #90 caps 0706/06 prednisone 5 mg tablet 5 mg PO DAILY #30 tabs 06/22 naloxone 4 mg/actuation nasal 1 spray intranasal Q2M # 2 ea 08/05/24 spray (Narcan) ondansetron HCl 4 mg tablet 4 mg PO Q6H PRN nausea and 08/05/24 vomiting #10 tabs aspirin 81 mg tablet,delayed 81 mg PO DAILY #30 tabs 1 10/18/23 release (Enteric Coated Aspirin) nitroglycerin 0.4 mg sublingual 0.4 mg sublingual Q5M PRN chest 08/18/24 tablet pain #10 tabs albuterol sulfate 90 mcg/actuation 2 puff inhalation Q 4-6H PRN 10/12/24 aerosol inhaler shortness of breath or wheez ing #6.7 grams ipratropium bromide 17 2 puff inhalation QID #12.9 grams 10/12/24 mcg/actuation HFA aerosol inhaler metoprolol succinate 100 mg 100 mg PO DAILY #90 tabs 0 10/15/24 tablet,extended release 24 hr cephalexin 500 mg capsule 500 mg PO TID #21 caps 11/03 clotrimazole 10 mg tracy 10 mg mucous membrane 5XD #3 0 tabs 11/03/24 ferrous gluconate 324 mg (37.5 mg 324 mg PO DAILY #90 tabs 11/03/24 iron) tablet omeprazole 40 mg capsule,delayed 40 mg PO DAILY #90 ca ps 11/03/24 release duloxetine 30 mg capsule,delayed 30 mg PO DAILY #30 ca ps 11/10/24 release (Cymbalta) mupirocin 2 % topical ointment 1 applic topical BID #2 2 grams 12/04/24 triamcinolone acetonide 0.5 % 1 applic topical BID #15 grams 12/04/24 topical cream prednisone 50 mg tablet 50 mg PO DAILY #10 tabs 11/15 06/07 mupirocin 2 % topical ointment 1 applic topical BID #2 2 grams 12/24/24 triamcinolone acetonide 0.5 % 1 applic topical BID #15 grams 12/24/24 topical ointment methocarbamol 750 mg tablet 750 mg PO QID 30 days #120 tabs 01/01/25 lidocaine 5 % topical patch 1 patch topical DAILY #30 ea 02/10/25 (Lidoderm) ondansetron 4 mg disintegrating 4 mg PO Q8H PRN nausea and 02/10/25 tablet vomiting #14 tabs methylprednisolone 4 mg tablets in See Rx Instructions PO .COMPLEX 02/24/25 a dose pack (Medrol (Dennis)) #21 ea mupirocin 2 % topical ointment 1 applic topical TID #2 2 grams 02/24/25 triamcinolone acetonide 0.5 % 1 applic topical BID #15 grams 02/24/25 topical cream sumatriptan succinate 100 mg tablet See Rx Instruction s PO .COMPLEX 03/01/25 #10 tabs lidocaine 5 % topical patch 1 patch topical DAILY #15 ea 04/23/25 hydrocodone 5 mg-acetaminophen 325 1 tab PO Q4-6H PRN pain #20 tabs 04/27/25 mg tablet sulfamethoxazole 800 1 tab PO Q12H #14 tabs 04/27 mg-trimethoprim 160 mg tablet (Bactrim DS) tramadol 50 mg tablet 50 mg PO Q8H PRN pain #20 ta bs 04/27/25 oxycodone 10 mg tablet 10 mg PO TID PRN pain #42 ta bs 05/04/25 methocarbamol 500 mg tablet 500 mg PO TID PRN muscle s pasm #20 05/13/25 tabs Allergies Allergy/AdvReac Type Severity Reaction Status Date / Time cyclobenzaprine (From Allergy Severe Dizziness, Verified 05/13/25 14:04 Flexeril) I bounce off ag ibuprofen AdvReac Intermediate Redness of Verified 05/13/25 14:04 Skin acetaminophen (ACETAMINOPHEN) AdvReac Unknown Can't take Verified 05/13/25 14:04 r/t Hep C; upset stomach Review of Systems <Joy Valdez PA-C - Last Filed: 05/13/25 17:36> Review of Systems ROS Unobtainable: All systems reviewed & are unremarkable except as noted in HPI and below Patient History <Joy Valdez PA-C - Last Filed: 05/13/25 17:36> Medical History Encounter for pre-operative cardiovascular clearance Bullous pemphigoid Primary osteoarthritis of left knee Moderate substance use disorder Dermatitis Folliculitis Thrush GERD (gastroesophageal reflux disease) Hyponatremia Bronchitis Impaired cognition Left knee pain Chronic diarrhea Eustachian tube dysfunction Seasonal allergic rhinitis Dyspepsia Anemia Tinea Abdominal wall pain in both lower quadrants Constipation Aftercare following left shoulder joint replacement surgery Preoperative clearance Left lateral epicondylitis Adhesive capsulitis Right wrist sprain Oral lesion Colles' fracture Right wrist pain Left shoulder strain Anxiety Fibromyalgia Sinus drainage Chronic ankle pain, bilateral Rheumatoid arthritis Acute exacerbation of chronic bronchitis Foraminal stenosis of lumbar region Peripheral neuropathy Pneumonia (~2018) Impotence (Unknown) Restless leg syndrome (Unknown) Arthritis (Unknown) Chronic pain syndrome (Unknown) Kidney stones (Unknown) Prostate cancer (Unknown) Skin cancer (Unknown) Hepatitis C (Unknown) Hypertension (Unknown) Migraines (Unknown) PTSD (post-traumatic stress disorder) (Unknown) Depression (Unknown) Surgical History 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 Social History marital status: household members: spouse lives independently: Yes occupational status: previously employed Smoking Status: Former smoker Tobacco: How many years used: 20 quit status: has quit before alcohol intake: former substance use type: former substance user and marijuana Smoking Status: Former smoker tobacco type: cigarettes alcohol intake frequency: holidays/special occasions only Exam <Joy Valdez PA-C - Last Filed: 05/13/25 17:36> Narrative Exam Narrative: GENERAL: 79 year old patient appears stated age. Well-developed patient, in no acute distress, does have significant left low back pain with going from sitting to standing position. HEAD: Atraumatic. Normocephalic. EYES: No scleral icterus. No injection or drainage. NECK: Trachea midline. Cervical ROM intact. CARDIOVASCULAR: Regular rate RESPIRATORY: ?Nonlabored respirations. ?Speaking in clear, full sentences. EXTREMITIES: No gross deformities of bilateral knees. There is subjective pain with both flexion and extension, active and passive. Lower extremities are warm and well perfused, sensation intact to light touch on bilateral lower extremities. BACK: There is tenderness to palpation of the low lumbar paraspinal region/left glute. No midline spinal tenderness or deformities. NEURO: AOx3. ?Clear speech. ?Moves all 4 extremities appropriately but with slow movements. SKIN: Patient does have dry skin and visible scratch stanton throughout. No lower extremity redness or edema. Initial Vital Signs Initial Vital Signs: Vital Signs Temperature 98.6 F 05/13/25 14:03 Pulse Rate 64 05/13/25 14:03 Respiratory Rate 20 05/13/25 14:03 Blood Pressure 153/72 H 05/13/25 14:03 Pulse Oximetry 97 05/13/25 14:03 Oxygen Delivery Method Room Air 05/13/25 14:03 <Bob Lugo MD - Last Filed: 05/13/25 19:17> Initial Vital Signs Initial Vital Signs: Vital Signs Temperature 98.6 F 05/13/25 14:03 Pulse Rate 64 05/13/25 14:03 Respiratory Rate 20 05/13/25 14:03 Blood Pressure 153/72 H 05/13/25 14:03 Pulse Oximetry 97 05/13/25 14:03 Oxygen Delivery Method Room Air 05/13/25 14:03 Course <Joy Valdez PA-C - Last Filed: 05/13/25 17:36> Orders Ordered: Discontinued Medications Ketorolac Tromethamine (Ketorolac 30 Mg/Ml Vial) 30 mg IM NOW ONE Stop: 05/13/25 14:53 Last Admin: 05/13/25 15:11 Dose: 30 mg Documented By: ES Lidocaine (Lidocaine 5% Patch) 1 each TOP NOW ONE Stop: 05/13/25 14:53 Last Admin: 05/13/25 15:12 Dose: 1 each Documented By: JESUS Methocarbamol (Methocarbamol 500 Mg Tablet) 1,000 mg PO NOW ONE Stop: 05/13/25 14:53 Last Admin: 05/13/25 15:11 Dose: 1,000 mg Documented By: JESUS Vital Signs Vital signs: Vital Signs - 8 hr 05/13/25 14:03 05/13/25 15:30 Temperature 98.6 F Pulse Rate 64 67 Respiratory Rate 20 16 Blood Pressure 153/72 H 185/92 H Pulse Oximetry 97 98 Oxygen Delivery Method Room Air Room Air <Bob Lugo MD - Last Filed: 05/13/25 19:17> Orders Ordered: Discontinued Medications Ketorolac Tromethamine (Ketorolac 30 Mg/Ml Vial) 30 mg IM NOW ONE Stop: 05/13/25 14:53 Last Admin: 05/13/25 15:11 Dose: 30 mg Documented By: JESUS Lidocaine (Lidocaine 5% Patch) 1 each TOP NOW ONE Stop: 05/13/25 14:53 Last Admin: 05/13/25 15:12 Dose: 1 each Documented By: ES Methocarbamol (Methocarbamol 500 Mg Tablet) 1,000 mg PO NOW ONE Stop: 05/13/25 14:53 Last Admin: 05/13/25 15:11 Dose: 1,000 mg Documented By: JESUS Vital Signs Vital signs: Vital Signs - 8 hr 05/13/25 14:03 05/13/25 15:30 Temperature 98.6 F Pulse Rate 64 67 Respiratory Rate 20 16 Blood Pressure 153/72 H 185/92 H Pulse Oximetry 97 98 Oxygen Delivery Method Room Air Room Air MDM - Back Pain/Injury <Joy Valdez PA-C - Last Filed: 05/13/25 17:36> Medical Records Attestation: I reviewed the patient's medical records. MDM Narrative Medical decision making narrative: 79-year-old male with a past medical history of chronic pain, arthritis, GERD, COPD, hypertension, former IVDU who presents to the emergency department for elaina ateral knee pain and low back pain after a fall that occurred just prior to arrival. Differential diagnosis includes but isn't limited to arthritis, degenerative disc disease, lumbar sprain, strain, muscle spasm, acute on chronic pain, fracture, etc. On exam the patient is in no acute distress, nontoxic appearing, vital signs appropriate. Patient had a partial mechanical fall, he did not hit his head, still has what he reports is his baseline range of motion of both of his knees and declines need for x-rays. He has no deformities or focal bony tenderness but he does have tenderness in the paraspinal lumbar region/left glute region. He is concerned that his pain is primarily due to spasms and is out of muscle relaxers. At this time I do not have a high suspicion for any fractures and I am agreeable to hold off on x-rays. We will treat his pain with Toradol and methocarbamol in addition to Lidoderm. I will send him a prescription for methocarbamol however recommended that he follow up with his PCP for further opioid management. He is happy with this plan. I did recommend that he use a walker however for he would prefer to not use it at this time. Discussed strict ED return precautions follow up with PCP. He is ambulatory and agreeable to the plan, stable for discharge home. Discharge Plan Departure Patient Disposition: Home Clinical Impression: Acute exacerbation of chronic low back pain Lumbar strain Qualifiers: Encounter type: initial encounter Qualified Code(s): S39.012A - Strain of muscle, fascia and tendon of lower back, initial encounter Fall Qualifiers: Encounter type: initial encounter Qualified Code(s): W19.XXXA - Unspecified fall, initial encounter Instructions: DI for Low Back Pain Activity Restrictions/Additional Instructions: Dear Mr. Tam, Thank you for coming to the emergency department. Today you were evaluated for worsening low back and left knee pain. You were treated with pain medicine muscle relaxers and numbing patches. I have sent a short course of muscle relaxers to her pharmacy. Please rest, use a walker to prevent falls, and follow up with your primary care doctor. Please follow up with your primary care doctor within the next 2-3 days for ER follow-up. (If you do not have a PCP you can call [phone]. ?to schedule an appointment with an [facility] Primary Care Provider) IF YOU DEVELOP ANY NEW OR WORSENING SYMPTOMS, RETURN TO THE ER! Please read the attached instructions, they highlight more specific treatments and interventions for you at home. Thank you for letting me participate in your care, Joy Valdez PA-C Prescriptions: New methocarbamol 500 mg tablet 500 mg PO TID PRN (Reason: muscle spasm) Qty: 20 0RF No Action albuterol sulfate 90 mcg/actuation HFA aerosol inhaler 2 puff inhalation Q4-6H PRN (Reason: shortness of breath or wheezing) Qty: 6.7 0RF ipratropium bromide 17 mcg/actuation HFA aerosol inhaler 2 puff inhalation QID Qty: 12.9 0RF albuterol sulfate 2.5 mg /3 mL (0.083 %) solution for nebulization 2.5 mg Continuous Nebulization Q6HP PRN (Reason: shortness of breath or wheezing) Qty: 360 2RF sulfasalazine 500 mg tablet 1,000 mg PO BID Qty: 180 1RF cholecalciferol (vitamin D3) 1,250 mcg (50,000 unit) capsule 1,250 mcg PO QWEEK Qty: 12 0RF ascorbic acid (vitamin C) 500 mg tablet 500 mg PO DAILY Qty: 90 0RF Rx Instructions: Take with iron mecobalamin (vitamin B12) [B12 Active] 1,000 mcg tablet,chewable 1,000 mcg PO DAILY Qty: 90 3RF fluoxetine 20 mg capsule 20 mg PO DAILY Qty: 90 3RF Rx Instructions: Take with 10 mg to complete 30 mg dose fluoxetine 10 mg capsule See Rx Instructions .ROUTE .COMPLEX Qty: 90 3RF Dose Instruction: take 1 capsule by mouth once daily WITH 20MG CAP DAILY TOTAL 30 MG DAILY Rx Instructions: take 1 capsule by mouth once daily WITH 20MG CAP DAILY TOTAL 30 MG DAILY metoprolol succinate 100 mg tablet extended release 24 hr 100 mg PO DAILY Qty: 90 3RF duloxetine [Cymbalta] 30 mg capsule,delayed release(DR/EC) 30 mg PO DAILY Qty: 30 1RF sumatriptan succinate 100 mg tablet See Rx Instructions PO .COMPLEX Qty: 10 0RF Rx Instructions: take 1 tab at onset of headache; if no relief, may repeat 1 tab after at least 2 hrs; max = 2 tabs/24 hrs PO lidocaine 5 % adhesive patch,medicated 1 patch topical DAILY Qty: 15 2RF Rx Instructions: leave on most painful area for up to 12 hrs oxycodone 10 mg tablet 10 mg PO TID PRN (Reason: pain) Qty: 42 0RF Rx Instructions: Must last 2 weeks Absolutely no refills before May 18, 2025 prednisone 5 mg tablet 5 mg PO DAILY Qty: 30 5RF Rx Instructions: start taking every day ferrous gluconate 324 mg (37.5 mg iron) tablet 324 mg PO DAILY Qty: 90 2RF Rx Instructions: start taking daily, with food or juice omeprazole 40 mg capsule,delayed release(DR/EC) 40 mg PO DAILY Qty: 90 3RF Rx Instructions: take 1 capsule by mouth once daily clotrimazole 10 mg tracy 10 mg mucous membrane 5XD Qty: 30 1RF cephalexin 500 mg capsule 500 mg PO TID Qty: 21 0RF clobetasol 0.05 % solution topical BID prednisone 50 mg tablet 50 mg PO DAILY Qty: 10 0RF methocarbamol 750 mg tablet 750 mg PO QID 30 Days Qty: 120 2RF nortriptyline 10 mg capsule 10 mg PO BEDTIME Qty: 30 1RF mupirocin 2 % ointment 1 applic topical BID Qty: 22 1RF triamcinolone acetonide 0.5 % cream 1 applic topical BID Qty: 15 1RF Rx Instructions: Applied to affected areas potassium chloride 20 mEq tablet extended release 20 meq PO BID Qty: 10 0RF valacyclovir 1 gram tablet 1,000 mg PO TID Qty: 30 0RF meclizine 25 mg tablet 25 mg PO TID PRN (Reason: dizziness) Qty: 10 0RF ondansetron HCl 4 mg tablet 4 mg PO Q6H PRN (Reason: nausea and vomiting) Qty: 10 0RF naloxone [Narcan] 4 mg/actuation spray,non-aerosol 1 spray intranasal Q2M Qty: 2 0RF Rx Instructions: spray 1 dose into ONE nostril; alternate nostrils w each dose until help arrives mupirocin 2 % ointment 1 applic topical BID Qty: 22 0RF triamcinolone acetonide 0.5 % ointment 1 applic topical BID Qty: 15 0RF Disabled Parking Permit 1 1 % SEEINSTR Rx Instructions: Valid for 5 years amlodipine 5 mg tablet 5 mg PO DAILY Patient Comments: pt received dose in hospital 11/10/19 early AM admit to hydrochlorothiazide 25 mg tablet 12.5 mg PO QAM ipratropium-albuterol 0.5 mg-3 mg(2.5 mg base)/3 mL solution for nebulization 3 ml inhalation Q6H PRN (Reason: shortness of breath or wheezing) Qty: 90 0RF aspirin [Enteric Coated Aspirin] 81 mg tablet,delayed release (DR/EC) 81 mg PO DAILY Qty: 30 0RF nitroglycerin 0.4 mg tablet, sublingual 0.4 mg sublingual Q5M PRN (Reason: chest pain) Qty: 10 0RF Rx Instructions: do not exceed 3 doses per episode ondansetron 4 mg tablet,disintegrating 4 mg PO Q8H PRN (Reason: nausea and vomiting) Qty: 14 0RF lidocaine [Lidoderm] 5 % adhesive patch,medicated 1 patch topical DAILY Qty: 30 0RF Rx Instructions: leave on most painful area for up to 12 hrs methylprednisolone [Medrol (Dennis)] 4 mg tablets,dose pack See Rx Instructions .ROUTE .COMPLEX Qty: 21 0RF Rx Instructions: for 6 days mupirocin 2 % ointment 1 applic topical TID Qty: 22 0RF triamcinolone acetonide 0.5 % cream 1 applic topical BID Qty: 15 0RF sulfamethoxazole-trimethoprim [Bactrim DS] 800-160 mg tablet 1 tab PO Q12H Qty: 14 0RF hydrocodone-acetaminophen 5-325 mg tablet 1 tab PO Q4-6H PRN (Reason: pain) Qty: 20 0RF tramadol 50 mg tablet 50 mg PO Q8H PRN (Reason: pain) Qty: 20 0RF Referrals: Edilberto Snell, [Primary Care Provider, [facility]] Stand Alone Forms: Patient Portal/API ED Sign-out <Bob Lugo MD - Last Filed: 05/13/25 19:17> [facility] I was immediately available in the department for consultation. ?This documentation has been reviewed and I agree with assessment and plan. Supervised by Bob Lugo MD
[2025-05-13] MEDS: KETOROLAC 30 MG/ML VIAL IM (15:11)
[2025-05-13] MEDS: LIDOCAINE 5% PATCH 1 EACH TOP (15:12)
[2025-05-13 15:30] VITALS: BP 185/92; PULSE 67; RESP 16; O2SAT 98
== END 2025-05-13 15:31 | disposition home or self-care (01) ==
PROVIDERS: Emergency Provider Physician Assistant; Family Provider Family Medicine; PCP Family Medicine
DX: S39.012A Strain of muscle, fascia and tendon of lower back, initial encounter (principal); W19.XXXA Unspecified fall, initial encounter
CPT/HCPCS: 96372; 99283; J1885

== ENCOUNTER 2025-05-15 16:34 | Emergency (ER) | payer MEDICARE, OTHER, SELFPAY ==
[2024-02-02 03:27] VITALS: BMI 29.4
[2025-05-15 16:39] VITALS: BP 163/72; PULSE 78; RESP 17; TEMP 36.6; O2SAT 98; BMI 29.7
--- NOTE | 2025-05-15 17:13 | ED.BACK ---
HPI - Back Pain/Injury General Chief Complaint: Back Pain/Injury Stated Complaint: Fell on back Time Seen by Provider: 05/15/25 17:13 Source: patient History of Present Illness HPI Narrative: Mr. Barrett Tam is a pleasant 79-year-old male with a past medical history of chronic pain, arthritis, GERD, COPD, hypertension, former IVDU who presents to the emergency department for left knee pain and low back pain after a fall earlier today. I have seen Barrett many times in the ED for similar chief complaints. Due to chronic left knee problems, he has an unsteady gait, but does not typically like to use a walker. States that he was at home, walking up his ramp when he fail to grab onto his railing causing him to fall backwards, he landed on his buttocks and then ?likely? to the back of his head on the ground. He is now experiencing a headache in addition to exacerbation of his low back and left knee pain. States that he ran out of his home oxycodone and he will not have anymore until next week. Denies any wounds. No visual disturbance. No chest pain abdominal pain or shortness of breath. He is ambulatory but with the pain. No bowel or bladder dysfunction or saddle anesthesia. Related Data Home Medications ?Medication ?Instructions ?Recorded ?Confirmed Disabled Parking Permit 1 % SEEINSTR 11/08/20 04/22/25 amlodipine 5 mg tablet 5 mg PO DAILY 11/08/22 04/22/25 hydrochlorothiazide 25 mg tablet 12.5 mg PO QAM 11/15/22 04/22/25 clobetasol 0.05 % scalp solution topical BID 12/11/24 04/22/25 Previous Rx's ?Medication ?Instructions ?Recorded albuterol sulfate 2.5 mg/3 mL 2.5 mg (3 mL) continuous 10/24/22 (0.083 %) solution for nebulization nebulization Q6HP PRN shortness of breath or wheezing #360 mL potassium chloride 20 mEq 20 meq PO BID #10 tabs 02/26/23 tablet,extended release ipratropium 0.5 mg-albuterol 3 mg 3 ml inhalation Q6H PRN shortness 03/19/23 (2.5 mg base)/3 mL nebulization of breath or wheezing #90 mL soln valacyclovir 1 gram tablet 1,000 mg PO TID #30 tabs 09/02/23 sulfasalazine 500 mg tablet 1,000 mg (2 x 500 mg) PO BID #180 11/28/23 tabs ascorbic acid (vitamin C) 500 mg 500 mg PO DAILY #90 tabs 12/13/23 tablet cholecalciferol (vitamin D3) 1,250 1,250 mcg PO QWEEK #12 caps 12/13/23 mcg (50,000 unit) capsule nortriptyline 10 mg capsule 10 mg PO BEDTIME #30 caps 12/17/23 meclizine 25 mg tablet 25 mg PO TID PRN dizziness #10 tabs 01/23/24 mecobalamin (vitamin B12) 1,000 1,000 mcg PO DAILY #90 tabs 02/11/24 mcg chewable tablet (B12 Active) fluoxetine 10 mg capsule See Rx Instructions .Route 04/20/24 .COMPLEX #90 caps fluoxetine 20 mg capsule 20 mg PO DAILY #90 caps 04/20/24 prednisone 5 mg tablet 5 mg PO DAILY #30 tabs 06/22/24 naloxone 4 mg/actuation nasal 1 spray intranasal Q2M #2 ea 08/05/24 spray (Narcan) ondansetron HCl 4 mg tablet 4 mg PO Q6H PRN nausea and 08/05/24 vomiting #10 tabs aspirin 81 mg tablet,delayed 81 mg PO DAILY #30 tabs 08/18/24 release (Enteric Coated Aspirin) nitroglycerin 0.4 mg sublingual 0.4 mg sublingual Q5M PRN chest 08/18/24 tablet pain #10 tabs albuterol sulfate 90 mcg/actuation 2 puff inhalation Q4-6H PRN 10/12/24 aerosol inhaler shortness of breath or wheezing #6.7 grams ipratropium bromide 17 2 puff inhalation QID #12.9 grams 10/12/24 mcg/actuation HFA aerosol inhaler metoprolol succinate 100 mg 100 mg PO DAILY #90 tabs 10/15/24 tablet,extended release 24 hr cephalexin 500 mg capsule 500 mg PO TID #21 caps 11/03/24 clotrimazole 10 mg tracy 10 mg mucous membrane 5XD #30 tabs 11/03/24 ferrous gluconate 324 mg (37.5 mg 324 mg PO DAILY #90 tabs 11/03/24 iron) tablet omeprazole 40 mg capsule,delayed 40 mg PO DAILY #90 caps 11/03/24 release duloxetine 30 mg capsule,delayed 30 mg PO DAILY #30 caps 11/10/24 release (Cymbalta) mupirocin 2 % topical ointment 1 applic topical BID #22 grams 12/04/24 triamcinolone acetonide 0.5 % 1 applic topical BID #15 grams 12/04/24 topical cream prednisone 50 mg tablet 50 mg PO DAILY #10 tabs 12/11/24 mupirocin 2 % topical ointment 1 applic topical BID #22 grams 12/24/24 triamcinolone acetonide 0.5 % 1 applic topical BID #15 grams 12/24/24 topical ointment methocarbamol 750 mg tablet 750 mg PO QID 30 days #120 tabs 01/01/25 lidocaine 5 % topical patch 1 patch topical DAILY #30 ea 02/10/25 (Lidoderm) ondansetron 4 mg disintegrating 4 mg PO Q8H PRN nausea and 02/10/25 tablet vomiting #14 tabs methylprednisolone 4 mg tablets in See Rx Instructions PO .COMPLEX 02/24/25 a dose pack (Medrol (Dennis)) #21 ea mupirocin 2 % topical ointment 1 applic topical TID #22 grams 02/24/25 triamcinolone acetonide 0.5 % 1 applic topical BID #15 grams 02/24/25 topical cream sumatriptan succinate 100 mg tablet See Rx Instructions PO .COMPLEX 03/01/25 #10 tabs lidocaine 5 % topical patch 1 patch topical DAILY #15 ea 04/23/25 hydrocodone 5 mg-acetaminophen 325 1 tab PO Q4-6H PRN pain #20 tabs 04/27/25 mg tablet sulfamethoxazole 800 1 tab PO Q12H #14 tabs 04/27/25 mg-trimethoprim 160 mg tablet (Bactrim DS) tramadol 50 mg tablet 50 mg PO Q8H PRN pain #20 tabs 04/27/25 oxycodone 10 mg tablet 10 mg PO TID PRN pain #42 tabs 05/04/25 methocarbamol 500 mg tablet 500 mg PO TID PRN muscle spasm #20 05/13/25 tabs Allergies Allergy/AdvReac Type Severity Reaction Status Date / Time cyclobenzaprine (From Allergy Severe Dizziness, Verified 05/13/25 14:04 Flexeril) I bounce off ag ibuprofen AdvReac Intermediate Redness of Verified 05/13/25 14:04 Skin acetaminophen (ACETAMINOPHEN) AdvReac Unknown Can't take Verified 05/13/25 14:04 r/t Hep C; upset stomach Review of Systems Review of Systems ROS Unobtainable: All systems reviewed & are unremarkable except as noted in HPI and below Patient History Medical History Encounter for pre-operative cardiovascular clearance Bullous pemphigoid Primary osteoarthritis of left knee Moderate substance use disorder Dermatitis Folliculitis Thrush GERD (gastroesophageal reflux disease) Hyponatremia Bronchitis Impaired cognition Left knee pain Chronic diarrhea Eustachian tube dysfunction Seasonal allergic rhinitis Dyspepsia Anemia Tinea Abdominal wall pain in both lower quadrants Constipation Aftercare following left shoulder joint replacement surgery Preoperative clearance Left lateral epicondylitis Adhesive capsulitis Right wrist sprain Oral lesion Colles' fracture Right wrist pain Left shoulder strain Anxiety Fibromyalgia Sinus drainage Chronic ankle pain, bilateral Rheumatoid arthritis Acute exacerbation of chronic bronchitis Foraminal stenosis of lumbar region Peripheral neuropathy Pneumonia (~2018) Impotence (Unknown) Restless leg syndrome (Unknown) Arthritis (Unknown) Chronic pain syndrome (Unknown) Kidney stones (Unknown) Prostate cancer (Unknown) Skin cancer (Unknown) Hepatitis C (Unknown) Hypertension (Unknown) Migraines (Unknown) PTSD (post-traumatic stress disorder) (Unknown) Depression (Unknown) Surgical History 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 Social History marital status: household members: spouse lives independently: Yes occupational status: previously employed Tobacco: How many years used: 20 quit status: has quit before alcohol intake: former substance use type: former substance user and marijuana tobacco type: cigarettes alcohol intake frequency: holidays/special occasions only Exam Narrative Exam Narrative: GENERAL: 79 year old patient appears stated age. Sitting in wheelchair, in mild distress. HEAD: Atraumatic. Normocephalic. EYES: PERRL. Extraocular motions intact. No scleral icterus. No injection or drainage. ENT: Normal pearly sierra TMs bilaterally however there is scant dried blood in the left ear canal. Nose without bleeding, purulent drainage. Throat without erythema, tonsillar hypertrophy or exudate. Airway patent. NECK: Trachea midline. Cervical ROM intact. No midline cervical tenderness. CARDIOVASCULAR: Regular rate and rhythm. RESPIRATORY: ?Nonlabored respirations. ?Speaking in clear, full sentences. ?Clear to auscultation. Breath sounds equal bilaterally. No wheezes, rales, or rhonchi. ? GASTROINTESTINAL: Abdomen soft, non-tender, nondistended. EXTREMITIES: Pain with passive and active flexion-extension of left knee, baseline. No obvious deformities of left knee. BACK: Nonfocal but diffuse lumbar and paralumbar muscle tenderness. No midline deformities. NEURO: AOx3. ?Clear speech. ?Moves all 4 extremities appropriately. SKIN: No rash or erythema of visible areas Initial Vital Signs Initial Vital Signs: Vital Signs Temperature 98 F 05/15/25 16:39 Pulse Rate 78 05/15/25 16:39 Respiratory Rate 17 05/15/25 16:39 Blood Pressure 163/72 H 05/15/25 16:39 Pulse Oximetry 98 05/15/25 16:39 Oxygen Delivery Method Room Air 05/15/25 16:39 Course Orders Ordered: ED Orders 05/15/25 17:19 CT cervical spine wo con Stat CT head/brain wo con Stat Discontinued Medications Hydromorphone HCl (Hydromorphone 1 Mg Inj) 0.5 mg IM NOW ONE Stop: 05/15/25 17:20 Last Admin: 05/15/25 17:53 Dose: 0.5 mg Ondansetron HCl (Ondansetron 4 Mg Odt) 4 mg SL NOW ONE Stop: 05/15/25 17:20 Last Admin: 05/15/25 17:53 Dose: 4 mg Vital Signs Vital signs: Vital Signs - 8 hr 05/15/25 16:39 Temperature 98 F Pulse Rate 78 Respiratory Rate 17 Blood Pressure 163/72 H Pulse Oximetry 98 Oxygen Delivery Method Room Air MDM - Back Pain/Injury Medical Records Attestation: I reviewed the patient's medical records. Imaging Data CT scan - head: Radiologist's Impression: PROCEDURE: CT HEAD/BRAIN WO CON INDICATIONS: fell backward now vomiting TECHNIQUE: Noncontrast 4.5 mm thick angled axial sections acquired from the foramen magnum to the vertex, with coronal and sagittal reformats. For radiation dose reduction, the following was used: automated exposure control, adjustment of mA and/or kV according to patient size. COMPARISON: [facility], CT, CT HEAD/BRAIN WO CON, 02/10/2025, 13:25. FINDINGS: Image quality: Diagnostic. CSF spaces: Basal cisterns are patent. No extra-axial fluid collections. The ventricles are symmetric in size and shape. Brain: No intracranial bleeds or mass effect. There is cerebral volume loss, with resultant ventricular and sulcal prominence. There are periventricular and deep white matter chronic small vessel ischemic changes. There is intracranial internal carotid artery atherosclerosis. Skull and face: Calvarium and visualized facial bones appear intact, without suspicious lesions. Sinuses: Visualized sinuses and mastoids are clear. IMPRESSION: No acute intracranial pathology. No acute skull fracture. Dictated by: Mohit Olivares M.D. on 05/15/2025 at 17:44 Approved by: Mohit Olivares M.D. on 05/15/2025 at 17:44 CT - cervical spine: Radiologist's Impression: PROCEDURE: CT CERVICAL SPINE WO CON INDICATIONS: hit back of head TECHNIQUE: Noncontrast 3 mm thick sections acquired from the skull base to the T4 level. Sagittal and coronal reformats were then constructed. For radiation dose reduction, the following was used: automated exposure control, adjustment of mA and/or kV according to patient size. COMPARISON: [facility], CT, CT CERVICAL SPINE WO CON, 02/10/2025, 13:25. FINDINGS: Image quality: Excellent. Bones: No fractures or dislocations. Straightening of normal cervical lordosis is seen. Loss of disc height, degenerative endplate changes and bilateral facet hypertrophic changes are noted throughout cervical spine. Visualized superior ribs are intact. Soft tissues: Prevertebral soft tissues are normal in thickness. No paravertebral hematomas. No apical pneumothoraces. IMPRESSION: 1. No displaced fracture or traumatic subluxation. 2. Spondylitic changes throughout cervical spine. Dictated by: Mohit Olivares M.D. on 05/15/2025 at 17:44 Approved by: Mohit Olivares M.D. on 05/15/2025 at 17:45 [facility] Narrative Medical decision making narrative: 79-year-old male with a past medical history of chronic pain, arthritis, GERD, COPD, hypertension, former IVDU who presents to the emergency department for left knee pain and low back pain after a fall earlier today. Differential diagnosis includes but is not limited to concussion, closed head injury, ICH, lumbar strain, knee strain, acute on chronic pain, etc. On exam patient is nontoxic appearing, he is in mild distress, active dry heaving/vomiting. He is reporting acute on chronic left knee and low back pain in addition to posterior headache. No focal neurologic deficits. Due to concern of possible head trauma, we will avoid NSAIDs, we will treat with 0.5 mg IM Dilaudid and oral Zofran. CT head reveals no acute intracranial pathology, no acute skull fracture. Cervical CT reveals no displaced fracture or traumatic subluxation, there are spondylitic changes throughout the cervical spine. Patient feeling better after ED treatment. Printed and discussed imaging results with the patient. Strongly urged patient to use walker to prevent recurrent falls. Patient actually requesting to walk out of the ED independently however we will assist him to prevent recurrent fall. Discussed supportive care, home pain medication use, [id number] pain medication use, ED return precautions and follow up with PCP. Patient verbalized understanding of all information is agreeable with the plan, spouse here to take him home, he is ambulatory and stable for discharge. Discharge vital signs all within normal limits. Discharge Plan Departure Patient Disposition: Home Clinical Impression: Ground-level fall, Closed head injury, Acute on chronic low back pain Instructions: DI for Low Back Pain Activity Restrictions/Additional Instructions: Dear Yonatan, Thank you for coming to the emergency department. Today you were evaluated for headache and exacerbation of your low back pain and knee pain after a fall. CT scan did not reveal any traumatic injury to your head or back. I encourage you to use a walker to assist with ambulation to prevent recurrent falls. Please follow up with your primary care doctor to discuss your chronic pain management regimen, I do recommend that you use [id number] pain medications as well as heat therapy and lidocaine patches. Please follow up with your primary care doctor within the next 2-3 days for ER follow-up. (If you do not have a PCP you can call [phone]. ?to schedule an appointment with an [facility] Primary Care Provider) IF YOU DEVELOP ANY NEW OR WORSENING SYMPTOMS, RETURN TO THE ER! Please read the attached instructions, they highlight more specific treatments and interventions for you at home. Thank you for letting me participate in your care, Joy Valdez PA-C Prescriptions: No Action albuterol sulfate 90 mcg/actuation HFA aerosol inhaler 2 puff inhalation Q4-6H PRN (Reason: shortness of breath or wheezing) Qty: 6.7 0RF ipratropium bromide 17 mcg/actuation HFA aerosol inhaler 2 puff inhalation QID Qty: 12.9 0RF albuterol sulfate 2.5 mg /3 mL (0.083 %) solution for nebulization 2.5 mg Continuous Nebulization Q6HP PRN (Reason: shortness of breath or wheezing) Qty: 360 2RF sulfasalazine 500 mg tablet 1,000 mg PO BID Qty: 180 1RF cholecalciferol (vitamin D3) 1,250 mcg (50,000 unit) capsule 1,250 mcg PO QWEEK Qty: 12 0RF ascorbic acid (vitamin C) 500 mg tablet 500 mg PO DAILY Qty: 90 0RF Rx Instructions: Take with iron mecobalamin (vitamin B12) [B12 Active] 1,000 mcg tablet,chewable 1,000 mcg PO DAILY Qty: 90 3RF fluoxetine 20 mg capsule 20 mg PO DAILY Qty: 90 3RF Rx Instructions: Take with 10 mg to complete 30 mg dose fluoxetine 10 mg capsule See Rx Instructions .ROUTE .COMPLEX Qty: 90 3RF Dose Instruction: take 1 capsule by mouth once daily WITH 20MG CAP DAILY TOTAL 30 MG DAILY Rx Instructions: take 1 capsule by mouth once daily WITH 20MG CAP DAILY TOTAL 30 MG DAILY metoprolol succinate 100 mg tablet extended release 24 hr 100 mg PO DAILY Qty: 90 3RF duloxetine [Cymbalta] 30 mg capsule,delayed release(DR/EC) 30 mg PO DAILY Qty: 30 1RF sumatriptan succinate 100 mg tablet See Rx Instructions PO .COMPLEX Qty: 10 0RF Rx Instructions: take 1 tab at onset of headache; if no relief, may repeat 1 tab after at least 2 hrs; max = 2 tabs/24 hrs PO lidocaine 5 % adhesive patch,medicated 1 patch topical DAILY Qty: 15 2RF Rx Instructions: leave on most painful area for up to 12 hrs oxycodone 10 mg tablet 10 mg PO TID PRN (Reason: pain) Qty: 42 0RF Rx Instructions: Must last 2 weeks Absolutely no refills before May 18, 2025 prednisone 5 mg tablet 5 mg PO DAILY Qty: 30 5RF Rx Instructions: start taking every day ferrous gluconate 324 mg (37.5 mg iron) tablet 324 mg PO DAILY Qty: 90 2RF Rx Instructions: start taking daily, with food or juice omeprazole 40 mg capsule,delayed release(DR/EC) 40 mg PO DAILY Qty: 90 3RF Rx Instructions: take 1 capsule by mouth once daily clotrimazole 10 mg tracy 10 mg mucous membrane 5XD Qty: 30 1RF cephalexin 500 mg capsule 500 mg PO TID Qty: 21 0RF clobetasol 0.05 % solution topical BID prednisone 50 mg tablet 50 mg PO DAILY Qty: 10 0RF methocarbamol 750 mg tablet 750 mg PO QID 30 Days Qty: 120 2RF nortriptyline 10 mg capsule 10 mg PO BEDTIME Qty: 30 1RF mupirocin 2 % ointment 1 applic topical BID Qty: 22 1RF triamcinolone acetonide 0.5 % cream 1 applic topical BID Qty: 15 1RF Rx Instructions: Applied to affected areas potassium chloride 20 mEq tablet extended release 20 meq PO BID Qty: 10 0RF valacyclovir 1 gram tablet 1,000 mg PO TID Qty: 30 0RF meclizine 25 mg tablet 25 mg PO TID PRN (Reason: dizziness) Qty: 10 0RF ondansetron HCl 4 mg tablet 4 mg PO Q6H PRN (Reason: nausea and vomiting) Qty: 10 0RF naloxone [Narcan] 4 mg/actuation spray,non-aerosol 1 spray intranasal Q2M Qty: 2 0RF Rx Instructions: spray 1 dose into ONE nostril; alternate nostrils w each dose until help arrives mupirocin 2 % ointment 1 applic topical BID Qty: 22 0RF triamcinolone acetonide 0.5 % ointment 1 applic topical BID Qty: 15 0RF methocarbamol 500 mg tablet 500 mg PO TID PRN (Reason: muscle spasm) Qty: 20 0RF Disabled Parking Permit 1 1 % SEEINSTR Rx Instructions: Valid for 5 years amlodipine 5 mg tablet 5 mg PO DAILY Patient Comments: pt received dose in hospital 11/10/19 early AM admit to hydrochlorothiazide 25 mg tablet 12.5 mg PO QAM ipratropium-albuterol 0.5 mg-3 mg(2.5 mg base)/3 mL solution for nebulization 3 ml inhalation Q6H PRN (Reason: shortness of breath or wheezing) Qty: 90 0RF aspirin [Enteric Coated Aspirin] 81 mg tablet,delayed release (DR/EC) 81 mg PO DAILY Qty: 30 0RF nitroglycerin 0.4 mg tablet, sublingual 0.4 mg sublingual Q5M PRN (Reason: chest pain) Qty: 10 0RF Rx Instructions: do not exceed 3 doses per episode ondansetron 4 mg tablet,disintegrating 4 mg PO Q8H PRN (Reason: nausea and vomiting) Qty: 14 0RF lidocaine [Lidoderm] 5 % adhesive patch,medicated 1 patch topical DAILY Qty: 30 0RF Rx Instructions: leave on most painful area for up to 12 hrs methylprednisolone [Medrol (Dennis)] 4 mg tablets,dose pack See Rx Instructions .ROUTE .COMPLEX Qty: 21 0RF Rx Instructions: for 6 days mupirocin 2 % ointment 1 applic topical TID Qty: 22 0RF triamcinolone acetonide 0.5 % cream 1 applic topical BID Qty: 15 0RF sulfamethoxazole-trimethoprim [Bactrim DS] 800-160 mg tablet 1 tab PO Q12H Qty: 14 0RF hydrocodone-acetaminophen 5-325 mg tablet 1 tab PO Q4-6H PRN (Reason: pain) Qty: 20 0RF tramadol 50 mg tablet 50 mg PO Q8H PRN (Reason: pain) Qty: 20 0RF Referrals: Edilberto Snell DO [Primary Care Provider, Family Practice] Stand Alone Forms: Patient Portal/API
--- NOTE | 2025-05-15 17:19 | DI.CT.S_ITS ---
PROCEDURE: CT HEAD/BRAIN WO CON INDICATIONS: fell backward now vomiting TECHNIQUE: Noncontrast 4.5 mm thick angled axial sections acquired from the foramen magnum to the vertex, with coronal and sagittal reformats. For radiation dose reduction, the following was used: automated exposure control, adjustment of mA and/or kV according to patient size. COMPARISON: [facility], CT, CT HEAD/BRAIN WO CON, 02/10/2025, 13:25. FINDINGS: Image quality: Diagnostic. CSF spaces: Basal cisterns are patent. No extra-axial fluid collections. The ventricles are symmetric in size and shape. Brain: No intracranial bleeds or mass effect. There is cerebral volume loss, with resultant ventricular and sulcal prominence. There are periventricular and deep white matter chronic small vessel ischemic changes. There is intracranial internal carotid artery atherosclerosis. Skull and face: Calvarium and visualized facial bones appear intact, without suspicious lesions. Sinuses: Visualized sinuses and mastoids are clear. IMPRESSION: No acute intracranial pathology. No acute skull fracture. Dictated by: Mohit Olivares M.D. on 05/15/2025 at 17:44 Approved by: Mohit Olivares M.D. on 05/15/2025 at 17:44
--- NOTE | 2025-05-15 17:19 | DI.CT.S_ITS ---
PROCEDURE: CT CERVICAL SPINE WO CON INDICATIONS: hit back of head TECHNIQUE: Noncontrast 3 mm thick sections acquired from the skull base to the T4 level. Sagittal and coronal reformats were then constructed. For radiation dose reduction, the following was used: automated exposure control, adjustment of mA and/or kV according to patient size. COMPARISON: [facility], CT, CT CERVICAL SPINE WO CON, 02/10/2025, 13:25. FINDINGS: Image quality: Excellent. Bones: No fractures or dislocations. Straightening of normal cervical lordosis is seen. Loss of disc height, degenerative endplate changes and bilateral facet hypertrophic changes are noted throughout cervical spine. Visualized superior ribs are intact. Soft tissues: Prevertebral soft tissues are normal in thickness. No paravertebral hematomas. No apical pneumothoraces. IMPRESSION: 1. No displaced fracture or traumatic subluxation. 2. Spondylitic changes throughout cervical spine. Dictated by: Mohit Olivares M.D. on 05/15/2025 at 17:44 Approved by: Mohit Olivares M.D. on 05/15/2025 at 17:45
[2025-05-15] MEDS: HYDROMORPHONE 1 MG INJ 0.5 MG IM (17:53)
[2025-05-15] MEDS: ONDANSETRON 4 MG ODT SL (17:53)
== END 2025-05-15 18:15 | disposition home or self-care (01) ==
PROVIDERS: Emergency Provider Physician Assistant; Family Provider Family Medicine; PCP Family Medicine
DX: S09.90XA Unspecified injury of head, initial encounter (principal); M54.50 Low back pain, unspecified; W18.30XA Fall on same level, unspecified, initial encounter
CPT/HCPCS: 70450; 72125; 96372; 99283; 99284; J1171

== ENCOUNTER 2025-05-16 20:52 | Emergency (ER) | payer MEDICARE, OTHER, SELFPAY ==
[2024-02-02 03:27] VITALS: BMI 29.4
[2025-05-16 21:22] VITALS: BP 154/69; PULSE 75; RESP 16; TEMP 37.1; O2SAT 95; BMI 29.7
== END 2025-05-16 21:47 | disposition left against medical advice (07) ==
PROVIDERS: Emergency Provider Emergency Medicine; Family Provider Family Medicine; PCP Family Medicine
CPT/HCPCS: 99281

== ENCOUNTER 2025-05-19 14:50 | Emergency (ER) | payer MEDICARE, OTHER, SELFPAY ==
[2024-02-02 03:27] VITALS: BMI 29.4
[2025-05-19 15:07] VITALS: BP 144/96; PULSE 72; RESP 14; TEMP 37; O2SAT 98; BMI 29.7
--- NOTE | 2025-05-19 15:29 | ED.EXTPRO ---
HPI - Extremity Problem <Joy Valdez PA-C - Last Filed: 05/19/25 17:11> General Chief complaint: Extremity Problem,Nontraumatic Stated complaint: Rheumatoid arthritis flare up Time Seen by Provider: 05/19/25 15:28 Source: patient Mode of arrival: Wheelchair History of Present Illness HPI Narrative: Mr. Barrett Tam is a pleasant 79-year-old male with a past medical history of chronic pain, arthritis, GERD, COPD, hypertension, former IVDU who presents to the emergency department for diffuse joint pain, ?rheumatoid arthritis flare-up? x 3-4 days. Pain is primarily in both of his hands but is also starting in his feet. He also has pain in his knees. He has not been on steroids for very long time. He is out of his opiate pain medicine, he is getting a refill tomorrow. No trauma, redness, fevers, chills, falls. He is here with his . States that he was previously following with a counter caser who prescribed him steroids, but he was dismissed from the practice. Related Data Home Medications ?Medication ?Instructions ?Recorded ?Confirmed Disabled [facility] 1 [facility] 04/22/25 amlodipine 5 mg tablet 5 mg PO DAILY 11/08/22 04/22/25 hydrochlorothiazide 25 mg tablet 12.5 mg PO QAM 11/15/22 04/22/25 clobetasol 0.05 % scalp solution topical BID 12/11/24 04/22/25 Previous Rx's ?Medication ?Instructions ?Recorded albuterol sulfate 2.5 mg/3 mL 2.5 mg (3 mL) continuous 10/24/22 (0.083 %) solution for nebulization nebulization Q6HP PRN shortness of breath or wheezing #360 mL potassium chloride 20 mEq 20 meq PO BID #10 tabs 02/26/23 tablet,extended release ipratropium 0.5 mg-albuterol 3 mg 3 ml inhalation Q6H PRN shortness 03/19/23 (2.5 mg base)/3 mL nebulization of breath or wheezing #90 mL soln valacyclovir 1 gram tablet 1,000 mg PO TID #30 tabs 09/02/23 sulfasalazine 500 mg tablet 1,000 mg (2 x 500 mg) PO BID #180 11/28/23 tabs ascorbic acid (vitamin C) 500 mg 500 mg PO DAILY #90 tabs 12/13/23 tablet cholecalciferol (vitamin D3) 1,250 1,250 mcg PO QWEEK #12 caps 12/13/23 mcg (50,000 unit) capsule nortriptyline 10 mg capsule 10 mg PO BEDTIME #30 caps 12/17/23 meclizine 25 mg tablet 25 mg PO TID PRN dizziness #10 tabs 01/23/24 mecobalamin (vitamin B12) 1,000 1,000 mcg PO DAILY #90 tabs 02/11/24 mcg chewable tablet (B12 Active) fluoxetine 10 mg capsule See Rx Instructions .Route 04/20/24 .COMPLEX #90 caps fluoxetine 20 mg capsule 20 mg PO DAILY #90 caps 04/20/24 prednisone 5 mg tablet 5 mg PO DAILY #30 tabs 06/22/24 naloxone 4 mg/actuation nasal 1 spray intranasal Q2M #2 ea 08/05/24 spray (Narcan) ondansetron HCl 4 mg tablet 4 mg PO Q6H PRN nausea and 08/05/24 vomiting #10 tabs aspirin 81 mg tablet,delayed 81 mg PO DAILY #30 tabs 08/18/24 release (Enteric Coated Aspirin) nitroglycerin 0.4 mg sublingual 0.4 mg sublingual Q5M PRN chest 08/18/24 tablet pain #10 tabs albuterol sulfate 90 mcg/actuation 2 puff inhalation Q4-6H PRN 10/12/24 aerosol inhaler shortness of breath or wheezing #6.7 grams ipratropium bromide 17 2 puff inhalation QID #12.9 grams 10/12/24 mcg/actuation HFA aerosol inhaler metoprolol succinate 100 mg 100 mg PO DAILY #90 tabs 10/15/24 tablet,extended release 24 hr cephalexin 500 mg capsule 500 mg PO TID #21 caps 11/03/24 clotrimazole 10 mg tracy 10 mg mucous membrane 5XD #30 tabs 11/03/24 ferrous gluconate 324 mg (37.5 mg 324 mg PO DAILY #90 tabs 11/03/24 iron) tablet omeprazole 40 mg capsule,delayed 40 mg PO DAILY #90 caps 11/03/24 release duloxetine 30 mg capsule,delayed 30 mg PO DAILY #30 caps 11/10/24 release (Cymbalta) mupirocin 2 % topical ointment 1 applic topical BID #22 grams 12/04/24 triamcinolone acetonide 0.5 % 1 applic topical BID #15 grams 12/04/24 topical cream prednisone 50 mg tablet 50 mg PO DAILY #10 tabs 12/11/24 mupirocin 2 % topical ointment 1 applic topical BID #22 grams 12/24/24 triamcinolone acetonide 0.5 % 1 applic topical BID #15 grams 12/24/24 topical ointment methocarbamol 750 mg tablet 750 mg PO QID 30 days #120 tabs 01/01/25 lidocaine 5 % topical patch 1 patch topical DAILY #30 ea 02/10/25 (Lidoderm) ondansetron 4 mg disintegrating 4 mg PO Q8H PRN nausea and 02/10/25 tablet vomiting #14 tabs methylprednisolone 4 mg tablets in See Rx Instructions PO .COMPLEX 02/24/25 a dose pack (Medrol (Dennis)) #21 ea mupirocin 2 % topical ointment 1 applic topical TID #22 grams 02/24/25 triamcinolone acetonide 0.5 % 1 applic topical BID #15 grams 02/24/25 topical cream sumatriptan succinate 100 mg tablet See Rx Instructions PO .COMPLEX 03/01/25 #10 tabs lidocaine 5 % topical patch 1 patch topical DAILY #15 ea 04/23/25 hydrocodone 5 mg-acetaminophen 325 1 tab PO Q4-6H PRN pain #20 tabs 04/27/25 mg tablet sulfamethoxazole 800 1 tab PO Q12H #14 tabs 04/27/25 mg-trimethoprim 160 mg tablet (Bactrim DS) tramadol 50 mg tablet 50 mg PO Q8H PRN pain #20 tabs 04/27/25 methocarbamol 500 mg tablet 500 mg PO TID PRN muscle spasm #20 05/13/25 tabs prednisone 20 mg tablet 40 mg (2 x 20 mg) PO DAILY 5 days 05/19/25 #10 tabs oxycodone 10 mg tablet 10 mg PO TID PRN pain #42 tabs 05/20/25 oxycodone 10 mg tablet 10 mg PO TID PRN pain #42 tabs 05/20/25 oxycodone 10 mg tablet 10 mg PO TID PRN pain #42 tabs 05/20/25 oxycodone 10 mg tablet 10 mg PO TID PRN pain #42 tabs 05/20/25 Allergies Allergy/AdvReac Type Severity Reaction Status Date / Time cyclobenzaprine (From Allergy Severe Dizziness, Verified 05/19/25 15:07 Flexeril) I bounce off ag ibuprofen AdvReac Intermediate Redness of Verified 05/19/25 15:07 Skin acetaminophen (ACETAMINOPHEN) AdvReac Unknown Can't take Verified 05/19/25 15:07 r/t Hep C; upset stomach Review of Systems <Joy Valdez PA-C - Last Filed: 05/19/25 17:11> Review of Systems ROS Unobtainable: All systems reviewed & are unremarkable except as noted in HPI and below Patient History <Joy Valdez PA-C - Last Filed: 05/19/25 17:11> Medical History Encounter for pre-operative cardiovascular clearance Bullous pemphigoid Primary osteoarthritis of left knee Moderate substance use disorder Dermatitis Folliculitis Thrush GERD (gastroesophageal reflux disease) Hyponatremia Bronchitis Impaired cognition Left knee pain Chronic diarrhea Eustachian tube dysfunction Seasonal allergic rhinitis Dyspepsia Anemia Tinea Abdominal wall pain in both lower quadrants Constipation Aftercare following left shoulder joint replacement surgery Preoperative clearance Left lateral epicondylitis Adhesive capsulitis Right wrist sprain Oral lesion Colles' fracture Right wrist pain Left shoulder strain Anxiety Fibromyalgia Sinus drainage Chronic ankle pain, bilateral Rheumatoid arthritis Acute exacerbation of chronic bronchitis Foraminal stenosis of lumbar region Peripheral neuropathy Pneumonia (~2018) Impotence (Unknown) Restless leg syndrome (Unknown) Arthritis (Unknown) Chronic pain syndrome (Unknown) Kidney stones (Unknown) Prostate cancer (Unknown) Skin cancer (Unknown) Hepatitis C (Unknown) Hypertension (Unknown) Migraines (Unknown) PTSD (post-traumatic stress disorder) (Unknown) Depression (Unknown) Surgical History 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 Social History marital status: household members: spouse lives independently: Yes occupational status: previously employed Tobacco: How many years used: 20 quit status: has quit before alcohol intake: former substance use type: former substance user and marijuana tobacco type: cigarettes alcohol intake frequency: holidays/special occasions only Exam <Joy Valdez PA-C - Last Filed: 05/19/25 17:11> Narrative Exam Narrative: GENERAL: 79 year old patient appears stated age. Well-developed patient, in no acute distress. HEAD: Atraumatic. Normocephalic. NECK: Trachea midline. Cervical ROM intact. CARDIOVASCULAR: Regular rate RESPIRATORY: ?Nonlabored respirations. ?Speaking in clear, full sentences. EXTREMITIES: Nonfocal tenderness to palpation of both hands with mild swelling of the knuckles. No redness or increased warmth. Full range of motion. Subjective tenderness to palpation of bilateral soles of feet, there is dry and flaking skin but no redness, drainage or increased warmth. NEURO: AOx3. ?Clear speech. ?Moves all 4 extremities appropriately. Initial Vital Signs Initial Vital Signs: Vital Signs Temperature 98.6 F 05/19/25 15:07 Pulse Rate 72 05/19/25 15:07 Respiratory Rate 14 05/19/25 15:07 Blood Pressure 144/96 H 05/19/25 15:07 Pulse Oximetry 98 05/19/25 15:07 Oxygen Delivery Method Room Air 05/19/25 15:07 <Mirtha Jameson MD - Last Filed: 05/22/25 08:08> Initial Vital Signs Initial Vital Signs: Vital Signs Temperature 98.6 F 05/19/25 15:07 Pulse Rate 72 05/19/25 15:07 Respiratory Rate 14 05/19/25 15:07 Blood Pressure 144/96 H 05/19/25 15:07 Pulse Oximetry 98 05/19/25 15:07 Oxygen Delivery Method Room Air 05/19/25 15:07 Course <Joy Valdez PA-C - Last Filed: 05/19/25 17:11> Orders Ordered: Discontinued Medications Ketorolac Tromethamine (Ketorolac 30 Mg/Ml Vial) 30 mg IM NOW ONE Stop: 05/19/25 15:37 Last Admin: 05/19/25 16:18 Dose: 30 mg Documented By: JULES Prednisone (Prednisone 20 Mg Tablet) 40 mg PO NOW ONE Stop: 05/19/25 15:37 Last Admin: 05/19/25 16:18 Dose: 40 mg Documented By: LM Vital Signs Vital signs: Vital Signs - 8 hr 05/19/25 15:07 05/19/25 17:03 Temperature 98.6 F 97.9 F Pulse Rate 72 67 Respiratory Rate 14 18 Blood Pressure 144/96 H 174/100 H Pulse Oximetry 98 98 Oxygen Delivery Method Room Air Room Air <Mirtha Jameson MD - Last Filed: 05/22/25 08:08> Orders Ordered: Discontinued Medications Ketorolac Tromethamine (Ketorolac 30 Mg/Ml Vial) 30 mg IM NOW ONE Stop: 05/19/25 15:37 Last Admin: 05/19/25 16:18 Dose: 30 mg Documented By: JULES Prednisone (Prednisone 20 Mg Tablet) 40 mg PO NOW ONE Stop: 05/19/25 15:37 Last Admin: 05/19/25 16:18 Dose: 40 mg Documented By: LM Vital Signs Vital signs: Vital Signs - 8 hr 05/19/25 15:07 05/19/25 17:03 Temperature 98.6 F 97.9 F Pulse Rate 72 67 Respiratory Rate 14 18 Blood Pressure 144/96 H 174/100 H Pulse Oximetry 98 98 Oxygen Delivery Method Room Air Room Air MDM - Extremity (Nontraumatic) <Joy Valdez PA-C - Last Filed: 05/19/25 17:11> Medical Records Attestation: I reviewed the patient's medical records. Lab Data Labs: Lab Results 05/19/25 05/19/25 Range/Units 16:05 16:05 Urine Color Yellow Urine Appearance Clear Urine pH 5.5 Normal (4.5-8.0) Ur Specific [place] 1.020 (1.000-1.035) Urine Protein Trace H (Negative) Urine Glucose (UA) Negative (Negative) g/dL Urine Ketones Trace H (NEGATIVE) Urine Occult Blood Negative (Negative) Urine Nitrate Negative (Negative) Urine Bilirubin Negative (NEGATIVE) Urine Urobilinogen 1.0 (0.2) E.U./dL Ur Leukocyte Esterase Negative (NEGATIVE) Urine RBC None seen (0-5/HPF) Urine WBC None seen (0-5/HPF) Ur Squamous Epith Cells None seen (0-5/HPF) Urine Bacteria Occasional (0-1) (None) Urine Mucus 3+ H (Negative) Ur Culture Indicated? Cult not indicated Vol Urine Centrifuged 10ml (spun) U Opiates 300ng/mL cut Negative (Negative) Ur Oxycodone Screen Negative (Negative) Urine Methadone Screen Negative (Negative) Ur Barbiturates Screen Negative (Negative) U Tricyclic Antidepress Negative (Negative) Ur Phencyclidine Scrn Negative (Negative) Ur Amphetamines Screen Negative (Negative) U Methamphetamines Scrn Negative (Negative) Ur MDMA Scrn (Ecstasy) Negative (Negative) U Benzodiazepines Scrn Negative (Negative) Urine Cocaine Screen Negative (Negative) U Marijuana (THC) Screen Negative (Negative) Urine Specific [place] Normal (Normal) Ur Creatinine Normal (Normal) MDM Narrative Medical decision making narrative: 79-year-old male with a past medical history of chronic pain, arthritis, GERD, COPD, hypertension, former IVDU who presents to the emergency department for diffuse joint pain, ?rheumatoid arthritis flare-up? x 3-4 days. Differential diagnosis includes but is not limited to rheumatoid arthritis flare, acute on chronic pain, etc. On exam patient is in no acute distress, nontoxic appearing, vital signs within normal limits. Patient does frequent the ED. He is here today primarily for pain of his knuckles and feet due to rheumatoid arthritis. His primary care doctor, Dr. Snell called and spoke with me. The patient is prescribed regular opioid pain medications and should not be receiving additional opioids from the emergency department. Patient has been told multiple times to not come to the ED for his chronic breakthrough pain. Nonetheless he is okay with us prescribing steroids today. He would like a urine drug screen on the patient, we will also check a point of care urinalysis to rule out infection. He will see the patient tomorrow in clinic. We will treat patient with Toradol and prednisone. He is happy with this plan. Discussed follow up tomorrow with his primary care doctor and strict ED return precautions. Him and his verbalized understanding of all information agreeable with the plan he is stable for discharge home. <Mirtha Jameson MD - Last Filed: 05/22/25 08:08> Lab Data Labs: Lab Results 05/19/25 05/19/25 Range/Units 16:05 16:05 Urine Color Yellow Urine Appearance Clear Urine pH 5.5 Normal (4.5-8.0) Ur Specific [place] 1.020 (1.000-1.035) Urine Protein Trace H (Negative) Urine Glucose (UA) Negative (Negative) g/dL Urine Ketones Trace H (NEGATIVE) Urine Occult Blood Negative (Negative) Urine Nitrate Negative (Negative) Urine Bilirubin Negative (NEGATIVE) Urine Urobilinogen 1.0 (0.2) E.U./dL Ur Leukocyte Esterase Negative (NEGATIVE) Urine RBC None seen (0-5/HPF) Urine WBC None seen (0-5/HPF) Ur Squamous Epith Cells None seen (0-5/HPF) Urine Bacteria Occasional (0-1) (None) Urine Mucus 3+ H (Negative) Ur Culture Indicated? Cult not indicated Vol Urine Centrifuged 10ml (spun) U Opiates 300ng/mL cut Negative (Negative) Ur Oxycodone Screen Negative (Negative) Urine Methadone Screen Negative (Negative) Ur Barbiturates Screen Negative (Negative) U Tricyclic Antidepress Negative (Negative) Ur Phencyclidine Scrn Negative (Negative) Ur Amphetamines Screen Negative (Negative) U Methamphetamines Scrn Negative (Negative) Ur MDMA Scrn (Ecstasy) Negative (Negative) U Benzodiazepines Scrn Negative (Negative) Urine Cocaine Screen Negative (Negative) U Marijuana (THC) Screen Negative (Negative) Urine Specific [place] Normal (Normal) Ur Creatinine Normal (Normal) Discharge Plan Departure Patient Disposition: Home Clinical Impression: Flare of rheumatoid arthritis Instructions: DI for Rheumatoid Arthritis Activity Restrictions/Additional Instructions: Dear Mr Tam, Thank you for coming to the emergency department. Today you were evaluated for rheumatoid arthritis flare. You have been prescribed steroids and you were treated with an intramuscular injection of anti-inflammatory pain medicine in the ED. Please talk with your primary care doctor tomorrow as scheduled. Please take the prednisone with breakfast. Please follow up with your primary care doctor within the next 2-3 days for ER follow-up. (If you do not have a PCP you can call [phone]. ?to schedule an appointment with an [facility] Primary Care Provider) IF YOU DEVELOP ANY NEW OR WORSENING SYMPTOMS, RETURN TO THE ER! Please read the attached instructions, they highlight more specific treatments and interventions for you at home. Thank you for letting me participate in your care, Joy Valdez PA-C Prescriptions: New prednisone 20 mg tablet 40 mg PO DAILY 5 Days Qty: 10 0RF No Action albuterol sulfate 90 mcg/actuation HFA aerosol inhaler 2 puff inhalation Q4-6H PRN (Reason: shortness of breath or wheezing) Qty: 6.7 0RF ipratropium bromide 17 mcg/actuation HFA aerosol inhaler 2 puff inhalation QID Qty: 12.9 0RF albuterol sulfate 2.5 mg /3 mL (0.083 %) solution for nebulization 2.5 mg Continuous Nebulization Q6HP PRN (Reason: shortness of breath or wheezing) Qty: 360 2RF sulfasalazine 500 mg tablet 1,000 mg PO BID Qty: 180 1RF cholecalciferol (vitamin D3) 1,250 mcg (50,000 unit) capsule 1,250 mcg PO QWEEK Qty: 12 0RF ascorbic acid (vitamin C) 500 mg tablet 500 mg PO DAILY Qty: 90 0RF Rx Instructions: Take with iron mecobalamin (vitamin B12) [B12 Active] 1,000 mcg tablet,chewable 1,000 mcg PO DAILY Qty: 90 3RF fluoxetine 20 mg capsule 20 mg PO DAILY Qty: 90 3RF Rx Instructions: Take with 10 mg to complete 30 mg dose fluoxetine 10 mg capsule See Rx Instructions .ROUTE .COMPLEX Qty: 90 3RF Dose Instruction: take 1 capsule by mouth once daily WITH 20MG CAP DAILY TOTAL 30 MG DAILY Rx Instructions: take 1 capsule by mouth once daily WITH 20MG CAP DAILY TOTAL 30 MG DAILY metoprolol succinate 100 mg tablet extended release 24 hr 100 mg PO DAILY Qty: 90 3RF duloxetine [Cymbalta] 30 mg capsule,delayed release(DR/EC) 30 mg PO DAILY Qty: 30 1RF sumatriptan succinate 100 mg tablet See Rx Instructions PO .COMPLEX Qty: 10 0RF Rx Instructions: take 1 tab at onset of headache; if no relief, may repeat 1 tab after at least 2 hrs; max = 2 tabs/24 hrs PO lidocaine 5 % adhesive patch,medicated 1 patch topical DAILY Qty: 15 2RF Rx Instructions: leave on most painful area for up to 12 hrs prednisone 5 mg tablet 5 mg PO DAILY Qty: 30 5RF Rx Instructions: start taking every day ferrous gluconate 324 mg (37.5 mg iron) tablet 324 mg PO DAILY Qty: 90 2RF Rx Instructions: start taking daily, with food or juice omeprazole 40 mg capsule,delayed release(DR/EC) 40 mg PO DAILY Qty: 90 3RF Rx Instructions: take 1 capsule by mouth once daily clotrimazole 10 mg tracy 10 mg mucous membrane 5XD Qty: 30 1RF cephalexin 500 mg capsule 500 mg PO TID Qty: 21 0RF clobetasol 0.05 % solution topical BID prednisone 50 mg tablet 50 mg PO DAILY Qty: 10 0RF methocarbamol 750 mg tablet 750 mg PO QID 30 Days Qty: 120 2RF oxycodone 10 mg tablet 10 mg PO TID PRN (Reason: pain) Qty: 42 0RF Rx Instructions: Must last 2 weeks oxycodone 10 mg tablet 10 mg PO TID PRN (Reason: pain) Qty: 42 0RF Rx Instructions: Must last 2 weeks oxycodone 10 mg tablet 10 mg PO TID PRN (Reason: pain) Qty: 42 0RF Rx Instructions: Must last 2 weeks oxycodone 10 mg tablet 10 mg PO TID PRN (Reason: pain) Qty: 42 0RF Rx Instructions: Must last 2 weeks nortriptyline 10 mg capsule 10 mg PO BEDTIME Qty: 30 1RF mupirocin 2 % ointment 1 applic topical BID Qty: 22 1RF triamcinolone acetonide 0.5 % cream 1 applic topical BID Qty: 15 1RF Rx Instructions: Applied to affected areas potassium chloride 20 mEq tablet extended release 20 meq PO BID Qty: 10 0RF valacyclovir 1 gram tablet 1,000 mg PO TID Qty: 30 0RF meclizine 25 mg tablet 25 mg PO TID PRN (Reason: dizziness) Qty: 10 0RF ondansetron HCl 4 mg tablet 4 mg PO Q6H PRN (Reason: nausea and vomiting) Qty: 10 0RF naloxone [Narcan] 4 mg/actuation spray,non-aerosol 1 spray intranasal Q2M Qty: 2 0RF Rx Instructions: spray 1 dose into ONE nostril; alternate nostrils w each dose until help arrives mupirocin 2 % ointment 1 applic topical BID Qty: 22 0RF triamcinolone acetonide 0.5 % ointment 1 applic topical BID Qty: 15 0RF methocarbamol 500 mg tablet 500 mg PO TID PRN (Reason: muscle spasm) Qty: 20 0RF Disabled Parking Permit 1 1 % [facility] Rx Instructions: Valid for 5 years amlodipine 5 mg tablet 5 mg PO DAILY Patient Comments: pt received dose in hospital 11/10/19 early AM admit to hydrochlorothiazide 25 mg tablet 12.5 mg PO QAM ipratropium-albuterol 0.5 mg-3 mg(2.5 mg base)/3 mL solution for nebulization 3 ml inhalation Q6H PRN (Reason: shortness of breath or wheezing) Qty: 90 0RF aspirin [Enteric Coated Aspirin] 81 mg tablet,delayed release (DR/EC) 81 mg PO DAILY Qty: 30 0RF nitroglycerin 0.4 mg tablet, sublingual 0.4 mg sublingual Q5M PRN (Reason: chest pain) Qty: 10 0RF Rx Instructions: do not exceed 3 doses per episode ondansetron 4 mg tablet,disintegrating 4 mg PO Q8H PRN (Reason: nausea and vomiting) Qty: 14 0RF lidocaine [Lidoderm] 5 % adhesive patch,medicated 1 patch topical DAILY Qty: 30 0RF Rx Instructions: leave on most painful area for up to 12 hrs methylprednisolone [Medrol (Dennis)] 4 mg tablets,dose pack See Rx Instructions .ROUTE .COMPLEX Qty: 21 0RF Rx Instructions: for 6 days mupirocin 2 % ointment 1 applic topical TID Qty: 22 0RF triamcinolone acetonide 0.5 % cream 1 applic topical BID Qty: 15 0RF sulfamethoxazole-trimethoprim [Bactrim DS] 800-160 mg tablet 1 tab PO Q12H Qty: 14 0RF hydrocodone-acetaminophen 5-325 mg tablet 1 tab PO Q4-6H PRN (Reason: pain) Qty: 20 0RF tramadol 50 mg tablet 50 mg PO Q8H PRN (Reason: pain) Qty: 20 0RF Referrals: Edilberto Snell, DO [Primary Care Provider, Family Practice] Stand Alone Forms: Patient Portal/API ED Sign-out <Mirtha Jameson MD - Last Filed: 05/22/25 08:08> Cosign ED Attending Cosignature Attestation: I was immediately available in the department for consultation throughout this patient's visit. Mirtha Jameson MD
[2025-05-19] MEDS: KETOROLAC 30 MG/ML VIAL IM (16:18)
[2025-05-19 16:24] LABS: Appearance Urine UA CLEAR; Bilirubin Urine UA NEGATIVE (NEGATIVE); Color Urine UA YELLOW; Glucose Urine UA NEGATIVE (Negative); Ketones Urine UA TRACE (NEGATIVE); Leukocyte Esterase Urine UA NEGATIVE (NEGATIVE); Nitrite Urine UA NEGATIVE (Negative); Occult Blood Urine UA NEGATIVE (Negative); Protein Urine UA TRACE (Negative); Specific Gravity Urine UA 1.020 (1.000-1.035); Urobilinogen Urine UA 1.0 E.U./dL (0.2); pH Urine UA 5.5 (4.5-8.0)
[2025-05-19 16:28] LABS: UR Morphine/Opiate cutoff 300 Negative (Negative); Ur Specific Gravity Normal (Normal); Urine MDMA Negative (Negative); Urine Methamphetamines Negative (Negative); Urine Tetrahydrocannabinol Negative (Negative); Urine Tricyclic Antidepressant Negative (Negative)
[2025-05-19 16:30] LABS: Culture Indicated Urine Cult Not Indicated
[2025-05-19 17:03] VITALS: BP 174/100; PULSE 67; RESP 18; TEMP 36.6; O2SAT 98
== END 2025-05-19 17:04 | disposition home or self-care (01) ==
PROVIDERS: Emergency Provider Physician Assistant; Family Provider Family Medicine; PCP Family Medicine
DX: M06.9 Rheumatoid arthritis, unspecified (principal)
CPT/HCPCS: 80305; 81001; 96372; 99283; J1885

== ENCOUNTER 2025-06-26 14:54 | Emergency (ER) | payer MEDICARE, OTHER, SELFPAY ==
[2025-06-15 15:10] VITALS: BMI 29.2
[2025-06-26 15:06] VITALS: BP 155/76; PULSE 75; RESP 18; TEMP 37; O2SAT 97; BMI 29.7
--- NOTE | 2025-06-26 15:46 | DI.RAD.S_ITS ---
PROCEDURE: XR KNEE LT 3V INDICATIONS: LEFT KNEE pain TECHNIQUE: 3 views of the knee were acquired. COMPARISON: [facility], CR, XR KNEE LT 1TO2V, 06/15/2025, 14:20. [facility], CR, XR KNEE LT 3V, 06/04/2025, 17:04. FINDINGS: Bones: Postsurgical changes of TKA show intact hardware without surrounding lucency, in anatomic alignment. There is no periprosthetic fracture. Mineralization is normal. Soft tissues: There is soft tissue edema about the knee with a likely suprapatellar joint effusion. IMPRESSION: Soft tissue edema without acute osseous abnormality or other evidence of postsurgical complication. Dictated by: Jayshree Reyes M.D. on 06/26/2025 at 15:54 Approved by: Jayshree Reyes M.D. on 06/26/2025 at 15:56
--- NOTE | 2025-06-26 15:47 | ED.LOWEXIN ---
HPI - Extremity Injury (Lower) General Chief Complaint: Extremity Injury, Lower Stated Complaint: right knee Time Seen by Provider: 06/26/25 14:59 Source: patient Mode of arrival: Wheelchair History of Present Illness HPI Narrative: 79-year-old gentleman had left knee replacement 2 days ago and got foot caught in a blanket now having left knee pain unable to bear any weight at this time since this morning. Patient denies fever chills body aches or any other trauma to the area. Other than what is stated 14 point review of system is negative. Related Data Home Medications ?Medication ?Instructions ?Recorded ?Confirmed Disabled Parking Permit 1 % .Route SEEINSTR 11/08/20 06/26/25 amlodipine 5 mg tablet 5 mg PO DAILY 11/08/22 06/26/25 Previous Rx's ?Medication ?Instructions ?Recorded albuterol sulfate 2.5 mg/3 mL 2.5 mg (3 mL) continuous 10/24/22 (0.083 %) solution for nebulization nebulization Q6HP PRN shortness of breath or wheezing #360 mL valacyclovir 1 gram tablet 1,000 mg PO TID #30 tabs 09/02/23 fluoxetine 10 mg capsule See Rx Instructions .Route 04/20/24 .COMPLEX #90 caps fluoxetine 20 mg capsule 20 mg PO DAILY #90 caps 04/20/24 naloxone 4 mg/actuation nasal 1 spray intranasal Q2M #2 ea 08/05/24 spray (Narcan) metoprolol succinate 100 mg 100 mg PO DAILY #90 tabs 10/15/24 tablet,extended release 24 hr omeprazole 40 mg capsule,delayed 40 mg PO DAILY #90 caps 11/03/24 release triamcinolone acetonide 0.5 % 1 applic topical BID #15 grams 12/04/24 topical cream lidocaine 5 % topical patch 1 patch topical DAILY #15 ea 04/23/25 prednisone 20 mg tablet 40 mg (2 x 20 mg) PO DAILY 05/31/25 rheumatoid arthritis flare up #10 tabs aspirin 81 mg tablet,delayed 81 mg PO BID #90 tabs 06/16/25 release hydrocodone 5 mg-acetaminophen 325 1 tab PO Q4-6H PRN pain #20 tabs 06/26/25 mg tablet Allergies Allergy/AdvReac Type Severity Reaction Status Date / Time cyclobenzaprine (From Allergy Severe Dizziness, Verified 06/26/25 15:04 Flexeril) I bounce off ag ibuprofen AdvReac Intermediate Redness of Verified 06/26/25 15:04 Skin acetaminophen (ACETAMINOPHEN) AdvReac Unknown Can't take Verified 06/26/25 15:04 r/t Hep C; upset stomach Review of Systems Review of Systems ROS Unobtainable: All systems reviewed & are unremarkable except as noted in HPI and below Patient History Medical History Encounter for pre-operative cardiovascular clearance Bullous pemphigoid Primary osteoarthritis of left knee Moderate substance use disorder Dermatitis Folliculitis Thrush GERD (gastroesophageal reflux disease) Hyponatremia Bronchitis Impaired cognition Left knee pain Chronic diarrhea Eustachian tube dysfunction Seasonal allergic rhinitis Dyspepsia Anemia Tinea Abdominal wall pain in both lower quadrants Constipation Aftercare following left shoulder joint replacement surgery Preoperative clearance Left lateral epicondylitis Adhesive capsulitis Right wrist sprain Oral lesion Colles' fracture Right wrist pain Left shoulder strain Anxiety Fibromyalgia Sinus drainage Chronic ankle pain, bilateral Rheumatoid arthritis Acute exacerbation of chronic bronchitis Foraminal stenosis of lumbar region Peripheral neuropathy Pneumonia (~2017) Impotence (Unknown) Restless leg syndrome (Unknown) Arthritis (Unknown) Chronic pain syndrome (Unknown) Kidney stones (Unknown) Prostate cancer (Unknown) Skin cancer (Unknown) Hepatitis C (Unknown) Hypertension (Unknown) Migraines (Unknown) PTSD (post-traumatic stress disorder) (Unknown) Depression (Unknown) Surgical History 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 Social History marital status: household members: spouse lives independently: Yes occupational status: previously employed Tobacco: How many years used: 20 quit status: has quit before alcohol intake: former substance use type: former substance user and marijuana Smoking Status: Former smoker tobacco type: cigarettes alcohol intake frequency: holidays/special occasions only Exam Narrative Exam Narrative: GENERAL: [79] year old patient appears stated age. Well-developed patient, in mild distress. HEAD: Atraumatic. Normocephalic. EYES: Pupils equal round and reactive. Extraocular motions intact. No scleral icterus. No injection or drainage. ENT: Nose without bleeding, purulent drainage. Throat without erythema, tonsillar hypertrophy or exudate. Airway patent. NECK: Trachea midline. Non tender EXTREMITIES: No edema or joint tenderness. BACK: Nontender without deformity or crepitance. No flank tenderness. NEURO: AOx3. SKIN: No rash or erythema of visible areas Initial Vital Signs Initial Vital Signs: Vital Signs Temperature 98.6 F 06/26/25 15:06 Pulse Rate 75 06/26/25 15:06 Respiratory Rate 18 06/26/25 15:06 Blood Pressure 155/76 H 06/26/25 15:06 Pulse Oximetry 97 06/26/25 15:06 Oxygen Delivery Method Room Air 06/26/25 15:06 Course Orders Ordered: ED Orders 06/26/25 15:38 XR knee RT 3V Stat 06/26/25 15:46 XR knee LT 3V Stat Vital Signs Vital signs: Vital Signs - 8 hr 06/26/25 15:06 Temperature 98.6 F Pulse Rate 75 Respiratory Rate 18 Blood Pressure 155/76 H Pulse Oximetry 97 Oxygen Delivery Method Room Air MDM - Extremity Injury (Lower) Imaging Data Extremity x-ray #1: Radiologist's Impression: [address] [address] XRay Report Signed Patient: Barrett Tam MR#: [id number] : 1945 Acct:[id number] Age/Sex: 79 / M Date of Service: 06/26/25 Loc: ED Accession Number: [id number] Procedure: XR knee LT 3V Ordering Provider: Chano Pichardo D.O. PROCEDURE: XR KNEE LT 3V INDICATIONS: LEFT KNEE pain TECHNIQUE: 3 views of the knee were acquired. [facility] 14[facility]20[facility], [facility], XR KNEE LT 3V, 06/04/2025, 17:04. FINDINGS: Bones: Postsurgical changes of TKA show intact hardware without surrounding lucency, in anatomic alignment. There is no periprosthetic fracture. Mineralization is normal. Soft tissues: There is soft tissue edema about the knee with a likely suprapatellar joint effusion. IMPRESSION: Soft tissue edema without acute osseous abnormality or other evidence of postsurgical complication. MDM Narrative Medical decision making narrative: All lab work, vital signs, nurse triage note, medication list, previous ER visits, and all imaging studies reviewed. X-ray showed soft tissue edema without acute osseous abnormality or evidence of postsurgical complication. Patient given [place] here. Differential diagnosis fracture, dislocation, contusion. Discharge Plan Departure Patient Disposition: Home Clinical Impression: Acute knee pain Instructions: DI for Knee Pain Activity Restrictions/Additional Instructions: Return with new or worsening symptoms. Follow up PCP and/or orthopedic surgeon at your next scheduled appointment. Take your medicine as directed Prescriptions: New hydrocodone-acetaminophen 5-325 mg tablet 1 tab PO Q4-6H PRN (Reason: pain) Qty: 20 0RF No Action albuterol sulfate 2.5 mg /3 mL (0.083 %) solution for nebulization 2.5 mg Continuous Nebulization Q6HP PRN (Reason: shortness of breath or wheezing) Qty: 360 2RF fluoxetine 20 mg capsule 20 mg PO DAILY Qty: 90 3RF Rx Instructions: Take with 10 mg to complete 30 mg dose fluoxetine 10 mg capsule See Rx Instructions .ROUTE .COMPLEX Qty: 90 3RF Dose Instruction: take 1 capsule by mouth once daily WITH 20MG CAP DAILY TOTAL 30 MG DAILY Rx Instructions: take 1 capsule by mouth once daily WITH 20MG CAP DAILY TOTAL 30 MG DAILY metoprolol succinate 100 mg tablet extended release 24 hr 100 mg PO DAILY Qty: 90 3RF lidocaine 5 % adhesive patch,medicated 1 patch topical DAILY Qty: 15 2RF Rx Instructions: leave on most painful area for up to 12 hrs prednisone 20 mg tablet 40 mg PO DAILY Qty: 10 0RF omeprazole 40 mg capsule,delayed release(DR/EC) 40 mg PO DAILY Qty: 90 3RF Rx Instructions: take 1 capsule by mouth once daily triamcinolone acetonide 0.5 % cream 1 applic topical BID Qty: 15 1RF Rx Instructions: Applied to affected areas valacyclovir 1 gram tablet 1,000 mg PO TID Qty: 30 0RF naloxone [Narcan] 4 mg/actuation spray,non-aerosol 1 spray intranasal Q2M Qty: 2 0RF Rx Instructions: spray 1 dose into ONE nostril; alternate nostrils w each dose until help arrives aspirin 81 mg Tablet,Delayed Release (Dr/Ec) 81 mg PO BID Qty: 90 0RF Disabled Parking Permit 1 1 % .Route SEEINSTR Rx Instructions: .RouteValid for 5 years amlodipine 5 mg tablet 5 mg PO DAILY Patient Comments: pt received dose in hospital 11/10/19 early AM admit to [facility] Referrals: Edilberto Snell DO [Primary Care Provider, [facility]] Stand Alone Forms: Patient Portal/API
[2025-06-26 17:16] VITALS: PULSE 68; O2SAT 98
[2025-06-26 17:32] VITALS: BP 189/95; PULSE 67; RESP 16; O2SAT 98
== END 2025-06-26 17:30 | disposition home or self-care (01) ==
PROVIDERS: Emergency Provider Family Medicine; Family Provider Family Medicine; PCP Family Medicine
DX: M25.562 Pain in left knee (principal); Z96.652 Presence of left artificial knee joint
CPT/HCPCS: 73562; 99283

== ENCOUNTER 2025-06-29 17:47 | Emergency (ER) | payer MEDICARE, OTHER, SELFPAY ==
[2025-06-15 15:10] VITALS: BMI 29.2
[2025-06-29 17:57] VITALS: BP 177/79; PULSE 90; RESP 18; TEMP 37.1; O2SAT 96; BMI 29.7
--- NOTE | 2025-06-29 22:03 | ED.FALL ---
HPI - Fall General Chief Complaint: Fall Stated Complaint: Lt knee injury, back injury Time Seen by Provider: 06/29/25 18:56 Source: patient Mode of arrival: Ambulatory History of Present Illness HPI Narrative: 79-year-old gentleman with a history of hypertension, chronic pain from multiple sources, history of hepatitis-C left knee replacement 2 weeks ago who has had a couple of falls over the last number of days. He states that this is common for him. Two days ago he stumbled over a rug at home. Today his foot got caught in the bedding and he fell. He is complaining of an exacerbation of his chronic back pain and increasing postoperative pain in the left knee. The left knee appears to be healing nicely there is no drainage, no increased redness or swelling. He is using his walker to help with mobility. Related Data Home Medications ?Medication ?Instructions ?Recorded ?Confirmed Disabled Parking Permit 1 % .Route SEEINSTR 11/08/20 06/26/25 amlodipine 5 mg tablet 5 mg PO DAILY 11/08/22 06/26/25 Previous Rx's ?Medication ?Instructions ?Recorded albuterol sulfate 2.5 mg/3 mL 2.5 mg (3 mL) continuous 10/24/22 (0.083 %) solution for nebulization nebulization Q6HP PRN shortness of breath or wheezing #360 mL valacyclovir 1 gram tablet 1,000 mg PO TID #30 tabs 09/02/23 fluoxetine 10 mg capsule See Rx Instructions .Route 04/20/24 .COMPLEX #90 caps fluoxetine 20 mg capsule 20 mg PO DAILY #90 caps 04/20/24 naloxone 4 mg/actuation nasal 1 spray intranasal Q2M #2 ea 08/05/24 spray (Narcan) metoprolol succinate 100 mg 100 mg PO DAILY #90 tabs 10/15/24 tablet,extended release 24 hr omeprazole 40 mg capsule,delayed 40 mg PO DAILY #90 caps 11/03/24 release triamcinolone acetonide 0.5 % 1 applic topical BID #15 grams 12/04/24 topical cream lidocaine 5 % topical patch 1 patch topical DAILY #15 ea 04/23/25 prednisone 20 mg tablet 40 mg (2 x 20 mg) PO DAILY 05/31/25 rheumatoid arthritis flare up #10 tabs aspirin 81 mg tablet,delayed 81 mg PO BID #90 tabs 06/16/25 release hydrocodone 5 mg-acetaminophen 325 1 tab PO Q4-6H PRN pain #20 tabs 06/26/25 mg tablet oxycodone 5 mg tablet 5 mg PO Q6H PRN pain #20 tabs 06/29/25 Allergies Allergy/AdvReac Type Severity Reaction Status Date / Time cyclobenzaprine (From Allergy Severe Dizziness, Verified 06/29/25 17:57 Flexeril) I bounce off ag ibuprofen AdvReac Intermediate Redness of Verified 06/29/25 17:57 Skin acetaminophen (ACETAMINOPHEN) AdvReac Unknown Can't take Verified 06/29/25 17:57 r/t Hep C; upset stomach Review of Systems Review of Systems Narrative: Pertinent positive and negative findings as per HPI Patient History Medical History Encounter for pre-operative cardiovascular clearance Bullous pemphigoid Primary osteoarthritis of left knee Moderate substance use disorder Dermatitis Folliculitis Thrush GERD (gastroesophageal reflux disease) Hyponatremia Bronchitis Impaired cognition Left knee pain Chronic diarrhea Eustachian tube dysfunction Seasonal allergic rhinitis Dyspepsia Anemia Tinea Abdominal wall pain in both lower quadrants Constipation Aftercare following left shoulder joint replacement surgery Preoperative clearance Left lateral epicondylitis Adhesive capsulitis Right wrist sprain Oral lesion Colles' fracture Right wrist pain Left shoulder strain Anxiety Fibromyalgia Sinus drainage Chronic ankle pain, bilateral Rheumatoid arthritis Acute exacerbation of chronic bronchitis Foraminal stenosis of lumbar region Peripheral neuropathy Pneumonia (~2018) Impotence (Unknown) Restless leg syndrome (Unknown) Arthritis (Unknown) Chronic pain syndrome (Unknown) Kidney stones (Unknown) Prostate cancer (Unknown) Skin cancer (Unknown) Hepatitis C (Unknown) Hypertension (Unknown) Migraines (Unknown) PTSD (post-traumatic stress disorder) (Unknown) Depression (Unknown) Surgical History 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 Social History marital status: household members: spouse lives independently: Yes occupational status: previously employed Tobacco: How many years used: 20 quit status: has quit before alcohol intake: former substance use type: former substance user and marijuana tobacco type: cigarettes alcohol intake frequency: holidays/special occasions only Exam Initial Vital Signs Initial Vital Signs: Vital Signs Temperature 98.8 F 06/29/25 17:57 Pulse Rate 90 06/29/25 17:57 Respiratory Rate 18 06/29/25 17:57 Blood Pressure 177/79 H 06/29/25 17:57 Pulse Oximetry 96 06/29/25 17:57 Oxygen Delivery Method Room Air 06/29/25 17:57 General: In pain, frustrated, able to cooperate with the exam Respiratory: Able to speak in full sentences, no obvious respiratory distress Skin: No obvious rashes, warm and dry Extremity: Left knee with surgical dressing in place. Swelling as would be expected, no increasing warmth or redness. Neurovascularly intact distally Neurologic: Grossly intact no obvious asymmetries or abnormalities Psych: appropriate insight and affect, cooperative Course Vital Signs Vital signs: Vital Signs - 8 hr 06/29/25 17:57 Temperature 98.8 F Pulse Rate 90 Respiratory Rate 18 Blood Pressure 177/79 H Pulse Oximetry 96 Oxygen Delivery Method Room Air MDM - Fall MDM Narrative Medical decision making narrative: 79-year-old gentleman with multiple chronic pain issues, narcotics from multiple providers, multiple falls over the last number of days which is actually his baseline. There was no evidence of acute significant injury that would require additional imaging or hospitalization at this time however he does appear to have exacerbated his chronic back pain and he has exacerbated his knee replacement pain as well. He is requesting a shot of medication and help with medication to get through to his appointment with Orthopedic surgery in 3 days. To that end, he is given a shot of Toradol, 10 mg of oxycodone. I have given a prescription for an additional 20 mg of oxycodone and will ask him to follow up with his orthopedic surgeon. Discharge Plan Departure Patient Disposition: Home Clinical Impression: Acute exacerbation of chronic low back pain, Post-operative pain Activity Restrictions/Additional Instructions: I am sorry that you are still suffering pain Clearly exacerbated your chronic back pain with your falls and tripping getting caught in the bedding etcetera. 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 Please do keep your appointment with Dr. Rajan for your left knee replacement postop visit. Prescriptions: New oxycodone 5 mg tablet 5 mg PO Q6H PRN (Reason: pain) Qty: 20 0RF No Action albuterol sulfate 2.5 mg /3 mL (0.083 %) solution for nebulization 2.5 mg Continuous Nebulization Q6HP PRN (Reason: shortness of breath or wheezing) Qty: 360 2RF fluoxetine 20 mg capsule 20 mg PO DAILY Qty: 90 3RF Rx Instructions: Take with 10 mg to complete 30 mg dose fluoxetine 10 mg capsule See Rx Instructions .ROUTE .COMPLEX Qty: 90 3RF Dose Instruction: take 1 capsule by mouth once daily WITH 20MG CAP DAILY TOTAL 30 MG DAILY Rx Instructions: take 1 capsule by mouth once daily WITH 20MG CAP DAILY TOTAL 30 MG DAILY metoprolol succinate 100 mg tablet extended release 24 hr 100 mg PO DAILY Qty: 90 3RF lidocaine 5 % adhesive patch,medicated 1 patch topical DAILY Qty: 15 2RF Rx Instructions: leave on most painful area for up to 12 hrs prednisone 20 mg tablet 40 mg PO DAILY Qty: 10 0RF omeprazole 40 mg capsule,delayed release(DR/EC) 40 mg PO DAILY Qty: 90 3RF Rx Instructions: take 1 capsule by mouth once daily triamcinolone acetonide 0.5 % cream 1 applic topical BID Qty: 15 1RF Rx Instructions: Applied to affected areas valacyclovir 1 gram tablet 1,000 mg PO TID Qty: 30 0RF naloxone [Narcan] 4 mg/actuation spray,non-aerosol 1 spray intranasal Q2M Qty: 2 0RF Rx Instructions: spray 1 dose into ONE nostril; alternate nostrils w each dose until help arrives aspirin 81 mg Tablet,Delayed Release (Dr/Ec) 81 mg PO BID Qty: 90 0RF hydrocodone-acetaminophen 5-325 mg tablet 1 tab PO Q4-6H PRN (Reason: pain) Qty: 20 0RF Disabled Parking Permit 1 1 % .Route SEEINSTR Rx Instructions: .RouteValid for 5 years amlodipine 5 mg tablet 5 mg PO DAILY Patient Comments: pt received dose in hospital 11/10/19 early AM admit to [facility] Referrals: Edilberto Snell DO [Primary Care Provider, [facility]] Stand Alone Forms: Patient Portal/API
[2025-06-29] MEDS: KETOROLAC 30 MG/ML VIAL IM (22:22)
[2025-06-29 22:35] VITALS: BP 169/86; PULSE 82; RESP 20; O2SAT 96
--- NOTE | 2025-06-30 14:29 | PC.NURSE ---
[facility] called today 06/30/25 to clarify this patients pain medication scripts, patient is currently being followed by surgeon in [place] and has script for 2mg PO dilaudid to be filled today and Dr Chacon PO 5mg Oxycodone from emergency. Both are immediate release, pharmacy would like to know if patient should be getting both, this RN tells pharmacy fill the surgeons order for continuity of care and disregard ED's order.
== END 2025-06-29 22:40 | disposition home or self-care (01) ==
PROVIDERS: Emergency Provider Emergency Medicine; Family Provider Family Medicine; PCP Family Medicine
DX: M54.50 Low back pain, unspecified (principal); G89.18 Other acute postprocedural pain
CPT/HCPCS: 96372; 99283; J1885

== ENCOUNTER 2025-07-03 18:19 | Emergency (ER) | payer MEDICARE, OTHER, SELFPAY ==
[2025-06-15 15:10] VITALS: BMI 29.2
[2025-07-03 18:32] VITALS: BP 144/69; PULSE 66; RESP 16; TEMP 36.8; O2SAT 98; BMI 29.7
[2025-07-03 22:46] VITALS: O2SAT 100
[2025-07-03 22:47] VITALS: BP 209/97; PULSE 69; O2SAT 99
--- NOTE | 2025-07-03 22:52 | ED.EXTPRO ---
HPI - Extremity Problem General Chief complaint: Extremity Problem,Nontraumatic Stated complaint: Returning; R Knee Pain Time Seen by Provider: 07/03/25 22:33 Source: patient Mode of arrival: Family Vehicle History of Present Illness HPI Narrative: 79-year-old male now status post left knee surgery Dr. Rajan here 2 weeks ago, complains of increasing pain to the left knee, has been using a walker, has been having some weight-bearing activity as he was instructed. No fall or re-injury seemed obvious. Has increasing pain. Ran out of his pain medications last night. Requests pain control medications. Denies chest pain or shortness of breath. Related Data Home Medications ?Medication ?Instructions ?Recorded ?Confirmed Disabled Parking Permit 1 % .Route SEEINSTR 11/08/20 06/26/25 amlodipine 5 mg tablet 5 mg PO DAILY 11/08/22 06/26/25 Previous Rx's ?Medication ?Instructions ?Recorded albuterol sulfate 2.5 mg/3 mL 2.5 mg (3 mL) continuous 10/24/22 (0.083 %) solution for nebulization nebulization Q6HP PRN shortness of breath or wheezing #360 mL valacyclovir 1 gram tablet 1,000 mg PO TID #30 tabs 09/02/23 fluoxetine 10 mg capsule See Rx Instructions .Route 04/20/24 .COMPLEX #90 caps fluoxetine 20 mg capsule 20 mg PO DAILY #90 caps 04/20/24 naloxone 4 mg/actuation nasal 1 spray intranasal Q2M #2 ea 08/05/24 spray (Narcan) metoprolol succinate 100 mg 100 mg PO DAILY #90 tabs 10/15/24 tablet,extended release 24 hr omeprazole 40 mg capsule,delayed 40 mg PO DAILY #90 caps 11/03/24 release triamcinolone acetonide 0.5 % 1 applic topical BID #15 grams 12/04/24 topical cream lidocaine 5 % topical patch 1 patch topical DAILY #15 ea 04/23/25 prednisone 20 mg tablet 40 mg (2 x 20 mg) PO DAILY 05/31/25 rheumatoid arthritis flare up #10 tabs aspirin 81 mg tablet,delayed 81 mg PO BID #90 tabs 06/16/25 release hydrocodone 5 mg-acetaminophen 325 1 tab PO Q4-6H PRN pain #20 tabs 06/26/25 mg tablet oxycodone 5 mg tablet 5 mg PO Q6H PRN pain #20 tabs 06/29/25 naloxone 4 mg/actuation nasal spray 4 mg intranasal Q3M PRN opioid 07/04/25 overdose #2 ea oxycodone 10 mg tablet 10 mg PO Q6H PRN pain #10 tabs 07/04/25 Allergies Allergy/AdvReac Type Severity Reaction Status Date / Time cyclobenzaprine (From Allergy Severe Dizziness, Verified 06/29/25 17:57 Flexeril) I bounce off ag ibuprofen AdvReac Intermediate Redness of Verified 06/29/25 17:57 Skin acetaminophen (ACETAMINOPHEN) AdvReac Unknown Can't take Verified 06/29/25 17:57 r/t Hep C; upset stomach Patient History Medical History Encounter for pre-operative cardiovascular clearance Bullous pemphigoid Primary osteoarthritis of left knee Moderate substance use disorder Dermatitis Folliculitis Thrush GERD (gastroesophageal reflux disease) Hyponatremia Bronchitis Impaired cognition Left knee pain Chronic diarrhea Eustachian tube dysfunction Seasonal allergic rhinitis Dyspepsia Anemia Tinea Abdominal wall pain in both lower quadrants Constipation Aftercare following left shoulder joint replacement surgery Preoperative clearance Left lateral epicondylitis Adhesive capsulitis Right wrist sprain Oral lesion Colles' fracture Right wrist pain Left shoulder strain Anxiety Fibromyalgia Sinus drainage Chronic ankle pain, bilateral Rheumatoid arthritis Acute exacerbation of chronic bronchitis Foraminal stenosis of lumbar region Peripheral neuropathy Pneumonia (~2018) Impotence (Unknown) Restless leg syndrome (Unknown) Arthritis (Unknown) Chronic pain syndrome (Unknown) Kidney stones (Unknown) Prostate cancer (Unknown) Skin cancer (Unknown) Hepatitis C (Unknown) Hypertension (Unknown) Migraines (Unknown) PTSD (post-traumatic stress disorder) (Unknown) Depression (Unknown) Surgical History 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 Social History marital status: household members: spouse lives independently: Yes occupational status: previously employed Tobacco: How many years used: 20 quit status: has quit before alcohol intake: former substance use type: former substance user and marijuana tobacco type: cigarettes alcohol intake frequency: holidays/special occasions only Exam Narrative Exam Narrative: GENERAL: Well-developed patient, in mild distress. HEAD: Atraumatic. Normocephalic. EYES: Pupils equal round and reactive. Extraocular motions intact. No scleral icterus. No injection or drainage. ENT: Nose without bleeding, purulent drainage. Airway patent. No obvious facial trauma. NECK: Trachea midline. Non tender CARDIOVASCULAR: Regular rate and rhythm without murmurs, gallops, or rubs. RESPIRATORY: Clear to auscultation. Breath sounds equal bilaterally. No wheezes, rales, or rhonchi. GASTROINTESTINAL: Abdomen soft, non-tender, nondistended. EXTREMITIES: Left anterior knee well-healed scars, closed anterior superior foreleg blisters without erythema, no gross knee effusion, no knee area redness, no wound crepitance or fluctuance or expressible fluid from healing surgical wound. BACK: Nontender without deformity or crepitance. No flank tenderness. NEURO: AOx3. Motor functions grossly nonfocal. SKIN: No rash or erythema of visible areas Initial Vital Signs Initial Vital Signs: Vital Signs Temperature 98.2 F 07/03/25 18:32 Pulse Rate 66 07/03/25 18:32 Respiratory Rate 16 07/03/25 18:32 Blood Pressure 144/69 H 07/03/25 18:32 Pulse Oximetry 98 07/03/25 18:32 Oxygen Delivery Method Room Air 07/03/25 18:32 Course Orders Ordered: Discontinued Medications Hydrocodone Bitart/Acetaminophen (Hydrocodone/Acet 5/325 Prepack) 1 bottle MISC DIRECTED ONE Stop: 07/04/25 00:50 Last Admin: 07/04/25 00:53 Dose: Not Given Documented By: AI Hydrocodone Bitart/Acetaminophen (Hydrocodone/Acet 5/325 Tablet) 2 tab PO NOW ONE Stop: 07/04/25 00:50 Last Admin: 07/04/25 00:53 Dose: Not Given Documented By: MIKE Hydromorphone HCl (Hydromorphone 1 Mg/Ml Syringe) 1 mg IM NOW ONE Stop: 07/03/25 23:45 Last Admin: 07/04/25 00:00 Dose: 1 mg Documented By: MIKE Morphine Sulfate (Morphine 4 Mg/Ml Inj) 4 mg IM NOW ONE Stop: 07/04/25 00:53 Last Admin: 07/04/25 01:04 Dose: 4 mg Documented By: MIKE Vital Signs Vital signs: Vital Signs - 8 hr 07/03/25 18:32 07/03/25 22:46 07/03/25 22:47 Temperature 98.2 F Pulse Rate 66 69 Respiratory Rate 16 Blood Pressure 144/69 H Pulse Oximetry 98 100 99 Oxygen Delivery Method Room Air 07/03/25 22:47 07/03/25 23:00 07/03/25 23:00 Temperature Pulse Rate 76 Respiratory Rate 16 Blood Pressure 209/97 H 189/77 H Pulse Oximetry 98 Oxygen Delivery Method 07/03/25 23:30 07/03/25 23:31 07/03/25 23:31 Temperature Pulse Rate 71 74 Respiratory Rate Blood Pressure 142/63 H Pulse Oximetry 98 98 Oxygen Delivery Method 07/04/25 00:00 07/04/25 00:00 07/04/25 00:30 Temperature Pulse Rate 73 67 Respiratory Rate 16 Blood Pressure 196/91 H Pulse Oximetry 99 98 Oxygen Delivery Method 07/04/25 00:31 07/04/25 00:31 07/04/25 01:00 Temperature Pulse Rate 64 66 Respiratory Rate Blood Pressure 232/100 H Pulse Oximetry 98 98 Oxygen Delivery Method 07/04/25 01:01 07/04/25 01:01 Temperature Pulse Rate 67 Respiratory Rate Blood Pressure 178/81 H Pulse Oximetry 98 Oxygen Delivery Method MDM - Extremity (Nontraumatic) Imaging Data Left lower extremity venous Doppler.: Radiologist's Impression: [address] [address] Ultrasound Report Signed Patient: Barrett Tam MR#: [id number] : 1945 Acct:[id number] Age/Sex: 79 / M Date of Service: 07/04/25 Loc: ED Accession Number: [id number] Procedure: US periph venous low extrem lt Ordering Provider: Marlon Anderson MD PROCEDURE: PERIP VENOUS LOW EXTREM LT INDICATIONS: Left knee pain/swelling after surgery TECHNIQUE: Real-time imaging, as well as color and pulse Doppler interrogation, were performed of the lower extremity deep veins from the inguinal ligament to the popliteal fossa, with documentation of the visualized calf veins. COMPARISON: [facility], XR KNEE LT 3V, 06/26/2025, 16:04. FINDINGS: The common femoral, femoral, popliteal, and the visualized calf veins are normally compressible, and free of intraluminal thrombus. Color and pulse Doppler demonstrate normal phasic intraluminal flow. There is normal augmentation response to distal compression maneuver. A Dunham's cyst is seen, measuring 5.4 x 2.4 x 0.7 cm. IMPRESSION: No findings of lower extremity deep venous thrombosis. Dictated by: Gregg Vásquez M.D. on 07/03/2025 at 23:35 Approved by: Gregg Vásquez M.D. on 07/03/2025 at 23:36 Extremity x-ray #1: Radiologist's Impression: [place] [address] XRay Report Signed Patient: Barrett Tam MR#: [id number] : 1945 Acct:[id number] Age/Sex: 79 / M Date of Service: 07/04/25 Loc: ED Accession Number: [id number] Procedure: XR knee LT 3V Ordering Provider: Marlon Anderson MD PROCEDURE: XR KNEE LT 3V INDICATIONS: Left knee pain and swelling after surgery TECHNIQUE: 3 views of the knee were acquired. COMPARISON: [facility], PERIP VENOUS LOW EXTREM LT, 07/04/2025, 0:16. [facility], XR KNEE LT 3V, 06/26/2025, 16:04. FINDINGS: Bones: No fractures or dislocations. No suspicious bony lesions. Intact appearing knee arthroplasty hardware is seen, without complication seen. Soft tissues: No definite joint effusion. No suspicious soft tissue calcifications. IMPRESSION: Unremarkable hardware, without a complication seen. No acute plain film abnormality is seen. Dictated by: Gregg Vásquez M.D. on 07/04/2025 at 0:20 Approved by: Gregg Vásquez M.D. on 07/04/2025 at 0:21 [facility] Narrative Medical decision making narrative: 79-year-old male now 2 weeks after left knee surgery with left knee pain. No fevers or chills. No swelling of distal extremity. Some blistering anterior surface anterior proximal foreleg. Afebrile, sirs screen negative. No obvious trauma known. We will check x-ray left knee, obtain venous Doppler ultrasound. Studies ordered. IM Dilaudid. Ultrasound venous Doppler left lower extremity, no DVT. See radiology report. X-ray left knee, arthroplasty hardware well seated, no acute changes obvious. See radiology report. Requests refill pain meds, ran out yesterday. Reported allergies to ibuprofen, hold Toradol. Reported allergy to acetaminophen. Refill of his post-op pain Rx Oxycodone 10mg tabs, for #10 tablets, eRx sent to his requested pharmacy. Further refills if needed per orthopedics, advised to call office of Dr Nichole on Saturday tomorrow. Home with family.Return precautions discussed. Discharge Plan Departure Patient Disposition: Home Clinical Impression: Acute postoperative pain of left knee, Chronic pain, Chronic use of opiate drug for therapeutic purpose Activity Restrictions/Additional Instructions: Two weeks status post left knee surgery with increasing pain, having run out of your chronic pain and postoperative pain medication. History of acetaminophen associated allergy. History of ibuprofen associated allergy. X-ray left knee without bony abnormalities, prosthetic hardware well-seated. Ultrasound left leg did not show any evidence of deep vein thrombosis clot at this time. Intramuscular doses of opiates given, no IV access while in the emergency department. No fever on triage. No obvious infection by clinical exam. Labs were ordered but apparently unable to be drawn despite attempts. Refill sent of your oxycodone pain medication, without acetaminophen Tylenol. Recheck with your orthopedic surgeon on Saturday for further pain medication refills. Return to this/nearest emergency department for any change worsening symptoms or any concerns prior. Prescriptions: New oxycodone 10 mg tablet 10 mg PO Q6H PRN (Reason: pain) Qty: 10 0RF naloxone 4 mg/actuation spray,non-aerosol 4 mg intranasal Q3M PRN (Reason: opioid overdose) Qty: 2 0RF Rx Instructions: spray 1 dose into ONE nostril; alternate nostrils w each dose until help arrives No Action albuterol sulfate 2.5 mg /3 mL (0.083 %) solution for nebulization 2.5 mg Continuous Nebulization Q6HP PRN (Reason: shortness of breath or wheezing) Qty: 360 2RF fluoxetine 20 mg capsule 20 mg PO DAILY Qty: 90 3RF Rx Instructions: Take with 10 mg to complete 30 mg dose fluoxetine 10 mg capsule See Rx Instructions .ROUTE .COMPLEX Qty: 90 3RF Dose Instruction: take 1 capsule by mouth once daily WITH 20MG CAP DAILY TOTAL 30 MG DAILY Rx Instructions: take 1 capsule by mouth once daily WITH 20MG CAP DAILY TOTAL 30 MG DAILY metoprolol succinate 100 mg tablet extended release 24 hr 100 mg PO DAILY Qty: 90 3RF lidocaine 5 % adhesive patch,medicated 1 patch topical DAILY Qty: 15 2RF Rx Instructions: leave on most painful area for up to 12 hrs prednisone 20 mg tablet 40 mg PO DAILY Qty: 10 0RF omeprazole 40 mg capsule,delayed release(DR/EC) 40 mg PO DAILY Qty: 90 3RF Rx Instructions: take 1 capsule by mouth once daily triamcinolone acetonide 0.5 % cream 1 applic topical BID Qty: 15 1RF Rx Instructions: Applied to affected areas valacyclovir 1 gram tablet 1,000 mg PO TID Qty: 30 0RF naloxone [Narcan] 4 mg/actuation spray,non-aerosol 1 spray intranasal Q2M Qty: 2 0RF Rx Instructions: spray 1 dose into ONE nostril; alternate nostrils w each dose until help arrives aspirin 81 mg Tablet,Delayed Release (Dr/Ec) 81 mg PO BID Qty: 90 0RF hydrocodone-acetaminophen 5-325 mg tablet 1 tab PO Q4-6H PRN (Reason: pain) Qty: 20 0RF oxycodone 5 mg tablet 5 mg PO Q6H PRN (Reason: pain) Qty: 20 0RF Disabled Parking Permit 1 1 % .Route SEEINSTR Rx Instructions: .RouteValid for 5 years amlodipine 5 mg tablet 5 mg PO DAILY Patient Comments: pt received dose in hospital 11/10/19 early AM admit to [facility] Referrals: Edilberto Snell DO [Primary Care Provider, Family Practice] Zoraida Rajan MD [Physician, Orthopedic Surgery] Stand Alone Forms: Patient Portal/API
[2025-07-03 23:00] VITALS: BP 189/77; PULSE 76; RESP 16; O2SAT 98
[2025-07-03 23:30] VITALS: PULSE 71; O2SAT 98
[2025-07-03 23:31] VITALS: BP 142/63; PULSE 74; O2SAT 98
[2025-07-04] VITALS: BP 196/91; PULSE 73; RESP 16; O2SAT 99
--- NOTE | 2025-07-04 00:05 | DI.US.S_ITS ---
PROCEDURE: US PERIPH VENOUS LOW EXTREM LT INDICATIONS: Left knee pain/swelling after surgery TECHNIQUE: Real-time imaging, as well as color and pulse Doppler interrogation, were performed of the lower extremity deep veins from the inguinal ligament to the popliteal fossa, with documentation of the visualized calf veins. COMPARISON: [facility], CR, XR KNEE LT 3V, 06/26/2025, 16:04. FINDINGS: The common femoral, femoral, popliteal, and the visualized calf veins are normally compressible, and free of intraluminal thrombus. Color and pulse Doppler demonstrate normal phasic intraluminal flow. There is normal augmentation response to distal compression maneuver. A Dunham's cyst is seen, measuring 5.4 x 2.4 x 0.7 cm. IMPRESSION: No findings of lower extremity deep venous thrombosis. Dictated by: Gregg Vásquez M.D. on 07/03/2025 at 23:35 Approved by: Gregg Vásquez M.D. on 07/03/2025 at 23:36
--- NOTE | 2025-07-04 00:05 | DI.RAD.S_ITS ---
PROCEDURE: XR KNEE LT 3V INDICATIONS: Left knee pain and swelling after surgery TECHNIQUE: 3 views of the knee were acquired. COMPARISON: [facility], , US PERIPH VENOUS LOW EXTREM LT, 07/04/2025, 0:16. [facility], , XR KNEE LT 3V, 06/26/2025, 16:04. FINDINGS: Bones: No fractures or dislocations. No suspicious bony lesions. Intact appearing knee arthroplasty hardware is seen, without complication seen. Soft tissues: No definite joint effusion. No suspicious soft tissue calcifications. IMPRESSION: Unremarkable hardware, without a complication seen. No acute plain film abnormality is seen. Dictated by: Gregg Vásquez M.D. on 07/04/2025 at 0:20 Approved by: Gregg Vásquez M.D. on 07/04/2025 at 0:21
[2025-07-04 00:30] VITALS: PULSE 67; O2SAT 98
[2025-07-04 00:31] VITALS: BP 232/100; PULSE 64; O2SAT 98
[2025-07-04 01:00] VITALS: PULSE 66; O2SAT 98
[2025-07-04 01:01] VITALS: BP 178/81; PULSE 67; O2SAT 98
[2025-07-04] MEDS: MORPHINE 4 MG/ML INJ IM (01:04)
[2025-07-04 01:30] VITALS: BP 201/80; PULSE 75; RESP 16; O2SAT 97
== END 2025-07-04 01:42 | disposition home or self-care (01) ==
PROVIDERS: Emergency Provider Emergency Medicine; Family Provider Family Medicine; PCP Family Medicine
DX: G89.18 Other acute postprocedural pain (principal); Z79.891 Long term (current) use of opiate analgesic
CPT/HCPCS: 73562; 93971; 96372; 99283; J1171; J2272

== ENCOUNTER → 2025-07-06 15:05 | Outpatient (CLI) | payer MEDICARE, OTHER, SELFPAY ==
[2025-06-15 15:10] VITALS: BMI 29.2
[2025-07-06 16:26] LABS: Add Manual Diff / Slide Review NO; Hematocrit 29.7 % (41-53); Hemoglobin 10.2 g/dL (13.5-17.5); Lymphocytes Absolute Auto 700 /uL (1100-4500); Mean Corpuscular HGB Conc 34.3 % (30-36); Mean Corpuscular Hemoglobin 28.4 PG (26-34); Mean Corpuscular Volume 82.8 fL (80-100); Platelet Count 294 X10^3/uL (150-400)
[2025-07-06 16:45] LABS: Alanine Aminotransferase 14 IU/L (<50); Albumin 4.0 g/dL (3.5-5.0); Albumin Globulin Ratio 1.2 (1.0-2.8); Alkaline Phosphatase 89 U/L (38-126); Blood Urea Nitrogen 11 mg/dL (9-20); Calcium 8.7 mg/dL (8.4-10.2); Carbon Dioxide 26 mmol/L (22-32); Chloride 98 mmol/L (98-107); Estimated Glomerular Filt Rate > 60 mL/min (>60); Globulin 3.3 g/dL (1.7-4.1); Glucose 84 mg/dL (70-99); HEMOLYSIS < 15 (0-50); Potassium 4.1 mmol/L (3.4-5.1); Sodium 134 mmol/L (137-145); Total Protein 7.3 g/dL (6.3-8.2)
== END ==
PROVIDERS: Referring Provider Internal Medicine Rheumatology; Visit Provider Internal Medicine Rheumatology
DX: M05.79 Rheumatoid arthritis with rheumatoid factor of multiple sites without organ or systems involvement (principal)
CPT/HCPCS: 36415; 80053; 83516; 85025; 85651; 86140

== ENCOUNTER 2025-07-08 17:16 | Emergency (ER) | payer MEDICARE, OTHER, SELFPAY ==
[2025-06-15 15:10] VITALS: BMI 29.2
[2025-07-08 17:22] VITALS: BP 157/75; PULSE 79; RESP 16; TEMP 36.6; O2SAT 97; BMI 29.7
--- NOTE | 2025-07-08 18:11 | DI.RAD.S_ITS ---
PROCEDURE: XR KNEE LT 3V INDICATIONS: twist L knee injury; hardware TECHNIQUE: 3 views of the knee were acquired. COMPARISON: [facility], CR, XR KNEE LT 3V, 07/04/2025, 1:01. [facility], CR, XR KNEE LT 3V, 06/26/2025, 16:04. FINDINGS: Bones: No fractures or dislocations. No suspicious bony lesions. Total knee arthroplasty appears unremarkable. No significant joint effusion. Soft tissues: No joint effusion. No suspicious soft tissue calcifications. IMPRESSION: No acute bony abnormality or significant effusion. Dictated by: Vasu Lopez M.D. on 07/08/2025 at 19:24 Approved by: Vasu Lopez M.D. on 07/08/2025 at 19:25
[2025-07-08] MEDS: KETOROLAC 30 MG/ML VIAL IM (18:21)
[2025-07-08] MEDS: ONDANSETRON 4 MG ODT SL (18:22)
--- NOTE | 2025-07-08 18:44 | ED_ITS ---
<Statement entered by Chano Pichardo, DO - 07/09/25 04:24> Co-sign statement: I was available for consultation during this patient's emergency department visit and after speaking with the mid-level provider we discussed discharging patient on tramadol and Toradol for pain control. However, I am concerned despite having knee replacement at the beginning of June 2025 he has chronic pain medication addiction issues. He was discharged from his PCP office for pain contract violation. 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 X-ray at that time was also completed showing unremarkable hardware without any complication seen. See that the ER doctor had asked that further refills if needed to follow up with Orthopedics Dr. Zoraida Rajan office. We will also place a referral [facility] to see if he can get in sooner to be evaluated for Dunham's cyst that can be also contributing to his knee pain. This chart is being signed by myself for administrative purposes only. I do not have direct contact with this patient during this visit. They were seen independently by the [facility]. HPI - Extremity Injury (Lower) General Chief Complaint: Extremity Injury, Lower Stated Complaint: Lt knee pain/injury Time Seen by Provider: 07/08/25 18:03 Source: patient Mode of arrival: Family Vehicle History of Present Illness HPI Narrative: Mr. Barrett Tam is a pleasant 79-year-old male with a past medical history of chronic pain from multiple sources, rheumatoid arthritis, GERD, COPD, HTN who presents to the emergency department for acute on chronic left knee pain. Patient states when he got out of bed this morning he got his foot caught on his sheets causing him to twist his left knee. The patient had a left total knee arthroplasty on 06/15/[address] Rajan. Patient has been healing well since then, his surgical scar is intact with no signs of infection but he does have some blistering on the anterior surface of the proximal left english, which he states are due to a chronic skin condition he has. No redness, increased warmth or swelling of the leg. No fevers or chills. No other injuries. Patient does have frequent ER visits for pain control, on July 02, 2025 patient was discharged from his primary care practice for violating his pain contract. Related Data Home Medications ?Medication ?Instructions ?Recorded ?Confirmed Disabled Parking Permit 1 % .Route SEEINSTR 11/08/20 06/26/25 amlodipine 5 mg tablet 5 mg PO DAILY 11/08/2206/26 Previous Rx's ?Medication ?Instructions ?Recorded albuterol sulfate 2.5 mg/3 mL 2.5 mg (3 mL) continuous 10/24/22 (0.083 %) solution for nebulization nebulization Q6HP PRN shortness of breath or wheezing #360 mL valacyclovir 1 gram tablet 1,000 mg PO TID #30 tabs fluoxetine 10 mg capsule See Rx Instructions .Route 0 04/20/24 .COMPLEX #90 caps fluoxetine 20 mg capsule 20 mg PO DAILY #90 caps 06/06 naloxone 4 mg/actuation nasal 1 spray intranasal Q2M # 2 ea 08/05/24 spray (Narcan) metoprolol succinate 100 mg 100 mg PO DAILY #90 tabs 0 10/15/24 tablet,extended release 24 hr omeprazole 40 mg capsule,delayed 40 mg PO DAILY #90 ca ps 11/03/24 release triamcinolone acetonide 0.5 % 1 applic topical BID #15 grams 12/04/24 topical cream lidocaine 5 % topical patch 1 patch topical DAILY #15 ea 04/23/25 prednisone 20 mg tablet 40 mg (2 x 20 mg) PO DAILY 0 05/31/25 rheumatoid arthritis flare up #10 tabs aspirin 81 mg tablet,delayed 81 mg PO BID #90 tabs 01/05 release hydrocodone 5 mg-acetaminophen 325 1 tab PO Q4-6H PRN pain #20 tabs 06/26/25 mg tablet oxycodone 5 mg tablet 5 mg PO Q6H PRN pain #20 tab s 06/29/25 naloxone 4 mg/actuation nasal spray 4 mg intranasal Q3 M PRN opioid 07/04/25 overdose #2 ea oxycodone 10 mg tablet 10 mg PO Q6H PRN pain #10 ta bs 07/04/25 ketorolac 10 mg tablet 10 mg PO Q8H PRN pain #10 ta bs 07/08/25 tramadol 50 mg tablet 50 mg PO Q8H PRN pain #10 ta bs 07/08/25 Allergies Allergy/AdvReac Type Severity Reaction Status Date / Time cyclobenzaprine (From Allergy Severe Dizziness, Verified 07/08/25 17:22 Flexeril) I bounce off ag ibuprofen AdvReac Intermediate Redness of Verified 07/08/25 17:22 Skin acetaminophen (ACETAMINOPHEN) AdvReac Unknown Can't take Verified 07/08/25 17:22 r/t Hep C; upset stomach Review of Systems Review of Systems ROS Unobtainable: All systems reviewed & are unremarkable except as noted in HPI and below Patient History Medical History Encounter for pre-operative cardiovascular clearance Bullous pemphigoid Primary osteoarthritis of left knee Moderate substance use disorder Dermatitis Folliculitis Thrush GERD (gastroesophageal reflux disease) Hyponatremia Bronchitis Impaired cognition Left knee pain Chronic diarrhea Eustachian tube dysfunction Seasonal allergic rhinitis Dyspepsia Anemia Tinea Abdominal wall pain in both lower quadrants Constipation Aftercare following left shoulder joint replacement surgery Preoperative clearance Left lateral epicondylitis Adhesive capsulitis Right wrist sprain Oral lesion Colles' fracture Right wrist pain Left shoulder strain Anxiety Fibromyalgia Sinus drainage Chronic ankle pain, bilateral Rheumatoid arthritis Acute exacerbation of chronic bronchitis Foraminal stenosis of lumbar region Peripheral neuropathy Pneumonia (~2017) Impotence (Unknown) Restless leg syndrome (Unknown) Arthritis (Unknown) Chronic pain syndrome (Unknown) Kidney stones (Unknown) Prostate cancer (Unknown) Skin cancer (Unknown) Hepatitis C (Unknown) Hypertension (Unknown) Migraines (Unknown) PTSD (post-traumatic stress disorder) (Unknown) Depression (Unknown) Surgical History 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 Social History marital status: household members: spouse lives independently: Yes occupational status: previously employed Tobacco: How many years used: 20 quit status: has quit before alcohol intake: former substance use type: former substance user and marijuana tobacco type: cigarettes alcohol intake frequency: holidays/special occasions only Exam Narrative Exam Narrative: GENERAL: 79 year old patient appears stated age. Elderly patient, in no acute distress. HEAD: Atraumatic. Normocephalic. NECK: Trachea midline. Cervical ROM intact. CARDIOVASCULAR: Regular rate RESPIRATORY: ?Nonlabored respirations. ?Speaking in clear, full sentences. EXTREMITIES: Left anterior knee surgical scar intact with no erythema, increased warmth or drainage. Patient does have blistering/bullae on the superficial anterior left english. No surrounding erythema or increased warmth. 2+ bilateral DP pulses and brisk cap refill in the toes. He does have anterior tenderness to palpation of the left knee. NEURO: Alert and oriented, responds to questions appropriately. He is hard of hearing. Sensation intact to light touch in the bilateral plantar and dorsal aspect of the feet. SKIN: Warm, dry. Initial Vital Signs Initial Vital Signs: Vital Signs Temperature 97.8 F 07/08/25 17:22 Pulse Rate 79 07/08/25 17:22 Respiratory Rate 16 07/08/25 17:22 Blood Pressure 157/75 H 07/08/25 17:22 Pulse Oximetry 97 07/08/25 17:22 Oxygen Delivery Method Room Air 07/08/25 17:22 Course Orders Ordered: Discontinued Medications Ketorolac Tromethamine (Ketorolac 30 Mg/Ml Vial) 30 mg IM NOW ONE Stop: 07/08/25 18:12 Last Admin: 07/08/25 18:21 Dose: 30 mg Documented By: JESUS Ondansetron HCl (Ondansetron 4 Mg Odt) 4 mg SL NOW ONE Stop: 07/08/25 18:12 Last Admin: 07/08/25 18:22 Dose: 4 mg Documented By: JESUS Tramadol HCl (Tramadol 50 Mg Tablet) 50 mg PO NOW ONE Stop: 07/08/25 19:21 Last Admin: 07/08/25 19:36 Dose: 50 mg Documented By: HUGH Vital Signs Vital signs: Vital Signs - 8 hr 07/08/25 17:22 Temperature 97.8 F Pulse Rate 79 Respiratory Rate 16 Blood Pressure 157/75 H Pulse Oximetry 97 Oxygen Delivery Method Room Air MDM - Extremity Injury (Lower) Medical Records Attestation: I reviewed the patient's medical records. Imaging Data Left Knee X-Ray: Radiologist's Impression: PROCEDURE: XR KNEE LT 3V INDICATIONS: twist L knee injury; hardware TECHNIQUE: 3 views of the knee were acquired. COMPARISON: [facility], CR, XR KNEE LT 3V, 07/04/2025, 1:01. [facility], CR, XR KNEE LT 3V, 06/26/2025, 16:04. FINDINGS: Bones: No fractures or dislocations. No suspicious bony lesions. Total knee arthroplasty appears unremarkable. No significant joint effusion. Soft tissues: No joint effusion. No suspicious soft tissue calcifications. IMPRESSION: No acute bony abnormality or significant effusion. Dictated by: Vasu Lopez M.D. on 07/08/2025 at 19:24 Approved by: Vasu Lopez M.D. on 07/08/2025 at 19:25 [facility] Narrative Medical decision making narrative: 79-year-old male with a past medical history of chronic pain from multiple sources, rheumatoid arthritis, GERD, COPD, HTN who presents to the emergency department for acute on chronic left knee pain. Differential diagnosis includes but is not limited to left knee sprain, strain, hardware problem, acute on chronic pain, arthritis, etc. On exam patient is in no acute distress, nontoxic appearing, vital signs appropriate. Bilateral lower extremities are neurovascularly intact. His left knee surgical scar looks well, no signs of infection, however he does have some superficial blistering/bullae on the left english which he states is due to a chronic skin condition. No signs of cellulitis, no calf swelling or tenderness. Given history of twisting injury to the knee with recent surgery, we will obtain x-ray. We will treat patient's pain with Toradol, patient states that his pain occasionally makes him nauseous so we will give dose of Zofran as well. Patient was in the ER most recently on 06/26, 06/29 and 07/03 for similar pain. This is his 18th visit to this ER this year. 1914: Discussed patient case with the attending ER physician, Dr. Pichardo, as patient does have a long history of regular opioid use with recent dismissal from his PCP with no set prescriber for his continued chronic pain management. Discussed avoiding opioids but also discussed about withdrawal from opioids and how to best manage patient's chronic pain. Dr. Pichardo advises tramadol and toradol at this time, which I am agreeable to. Left knee x-ray reveals no acute bony abnormality or significant effusion. I had an extensive discussion with both Barrett and his at the bedside and explained that we care about his chronic pain but the ER is not able to prescribe long-term chronic pain management. Patient is currently in a difficult situation as he no longer has a primary care physician. His PCP did refer him to [facility] pain management which I encouraged him to follow up with. We discussed opioid pain medication, non opioid pain medication, methadone, suboxone, and other options as well. Patient verbalizes interest in stopping opioids but at the same time becomes quite upset when discussing not prescribing an opioid pain medication. He does become a bit upset with his when she encourages him to stop coming to the ER. Overall we decided at this time that we will do a few days of Toradol and tramadol while he is in the process of looking for a new primary doctor. I did also encourage him to follow up with his orthopedic surgeon to discuss his knee pain. Patient his verbalized understanding of all information agreeable with the plan, he is ambulatory but with discomfort, neurovascularly intact and stable for discharge home. Discharge Plan Departure Patient Disposition: Home Clinical Impression: Knee pain, left Instructions: DI for Knee Pain Activity Restrictions/Additional Instructions: Dear Mr. Tam, Today you were evaluated in the ER for left knee pain. X-ray does not show any bone or hardware abnormalities. We had extensive discussion about your chronic pain and the importance of finding a new primary care doctor and a pain management doctor, Dr. Sow is a local pain doctor. We are always here to care for you in the emergency room, however we can not prescribe chronic pain management medication. Coming to the ER frequently breakthrough pain management contract. Please talk with the orthopedic surgeon about your knee pain given your recent surgery. Please return to the emergency room if you develop fevers, redness or swelling of the leg or any concerns. You have been prescribed a short course of tramadol which is an opioid pain medication and ketorolac which is an NSAID pain medication. Please also use Tylenol with these medications in addition to Jermaine wrap, ice therapy. You have been prescribed a short course of narcotic medications. These are potentially dangerous and addictive medications that should be used carefully. While on these medications you cannot drive or operate heavy machinery. Additionally, you cannot sign legal documents or perform any duties such as this. Many people get constipated on narcotic medications so it would be advisable to discuss stool softeners with the pharmacist when you roller picker your prescription. Please understand that we cannot provide further refills of narcotics or controlled substances through the ED and your pain management will need to be through your Primary Care Provider Please follow up with your primary care doctor within the next 2-3 days for ER follow-up. (If you do not have a PCP you can call [phone]. ?to schedule an appointment with an [facility] Primary Care Provider) IF YOU DEVELOP ANY NEW OR WORSENING SYMPTOMS, RETURN TO THE ER! Please read the attached instructions, they highlight more specific treatments and interventions for you at home. Thank you for letting me participate in your care, Joy Valdez PA-C Prescriptions: New tramadol 50 mg tablet 50 mg PO Q8H PRN (Reason: pain) Qty: 10 0RF ketorolac 10 mg tablet 10 mg PO Q8H PRN (Reason: pain) Qty: 10 0RF Rx Instructions: maximum total duration of 5 days from all oral, intranasal, or parenteral formulations No Action albuterol sulfate 2.5 mg /3 mL (0.083 %) solution for nebulization 2.5 mg Continuous Nebulization Q6HP PRN (Reason: shortness of breath or wheezing) Qty: 360 2RF fluoxetine 20 mg capsule 20 mg PO DAILY Qty: 90 3RF Rx Instructions: Take with 10 mg to complete 30 mg dose fluoxetine 10 mg capsule See Rx Instructions .ROUTE .COMPLEX Qty: 90 3RF Dose Instruction: take 1 capsule by mouth once daily WITH 20MG CAP DAILY TOTAL 30 MG DAILY Rx Instructions: take 1 capsule by mouth once daily WITH 20MG CAP DAILY TOTAL 30 MG DAILY metoprolol succinate 100 mg tablet extended release 24 hr 100 mg PO DAILY Qty: 90 3RF lidocaine 5 % adhesive patch,medicated 1 patch topical DAILY Qty: 15 2RF Rx Instructions: leave on most painful area for up to 12 hrs prednisone 20 mg tablet 40 mg PO DAILY Qty: 10 0RF omeprazole 40 mg capsule,delayed release(DR/EC) 40 mg PO DAILY Qty: 90 3RF Rx Instructions: take 1 capsule by mouth once daily triamcinolone acetonide 0.5 % cream 1 applic topical BID Qty: 15 1RF Rx Instructions: Applied to affected areas valacyclovir 1 gram tablet 1,000 mg PO TID Qty: 30 0RF naloxone [Narcan] 4 mg/actuation spray,non-aerosol 1 spray intranasal Q2M Qty: 2 0RF Rx Instructions: spray 1 dose into ONE nostril; alternate nostrils w each dose until help arrives aspirin 81 mg Tablet,Delayed Release (Dr/Ec) 81 mg PO BID Qty: 90 0RF hydrocodone-acetaminophen 5-325 mg tablet 1 tab PO Q4-6H PRN (Reason: pain) Qty: 20 0RF oxycodone 5 mg tablet 5 mg PO Q6H PRN (Reason: pain) Qty: 20 0RF oxycodone 10 mg tablet 10 mg PO Q6H PRN (Reason: pain) Qty: 10 0RF naloxone 4 mg/actuation spray,non-aerosol 4 mg intranasal Q3M PRN (Reason: opioid overdose) Qty: 2 0RF Rx Instructions: spray 1 dose into ONE nostril; alternate nostrils w each dose until help arrives Disabled Parking Permit 1 1 % .Route SEEINSTR Rx Instructions: .RouteValid for 5 years amlodipine 5 mg tablet 5 mg PO DAILY Patient Comments: pt received dose in hospital 11/10/19 early AM admit to [facility] Referrals: Jimenez Sow DO [Physician, Physiatry] Miscellaneous,DoctorMD [Primary Care Provider, Medical] Stand Alone Forms: Patient Portal/API
[2025-07-08 19:47] VITALS: BP 156/71; PULSE 77; RESP 16; O2SAT 99
== END 2025-07-08 19:50 | disposition home or self-care (01) ==
PROVIDERS: Emergency Provider Physician Assistant
DX: M25.562 Pain in left knee (principal); X50.1XXA Overexertion from prolonged static or awkward postures, initial encounter; F17.210 Nicotine dependence, cigarettes, uncomplicated; Z79.891 Long term (current) use of opiate analgesic; Z96.652 Presence of left artificial knee joint
CPT/HCPCS: 73562; 96372; 99283; J1885

== ENCOUNTER 2025-07-16 15:25 | Emergency (ER) | payer MEDICARE, OTHER, SELFPAY ==
[2025-06-15 15:10] VITALS: BMI 29.2
[2025-07-16 16:05] VITALS: BP 119/68; PULSE 79; RESP 18; TEMP 37.1; O2SAT 96; BMI 29.7
--- NOTE | 2025-07-16 16:09 | DI.RAD.S_ITS ---
PROCEDURE: XR KNEE LT 3V INDICATIONS: Fall on knee this morning. TECHNIQUE: 3 views of the knee were acquired. COMPARISON: [facility], CR, XR KNEE LT 3V, 07/08/2025, 18:16. [facility], CR, XR KNEE LT 3V, 07/04/2025, 1:01. FINDINGS: Bones: No fractures or dislocations. Left knee arthroplasty without evidence of interval complication. No suspicious bony lesions. Soft tissues: Small joint effusion is stable. No suspicious soft tissue calcifications. IMPRESSION: Left knee arthroplasty without evidence of interval complication. No acute osseous abnormalities. Dictated by: Hebert San M.D. on 07/16/2025 at 17:05 Approved by: Hebert San M.D. on 07/16/2025 at 17:05
--- NOTE | 2025-07-16 19:14 | ED.FALL ---
HPI - Fall General Chief Complaint: Fall Stated Complaint: L knee pn Time Seen by Provider: 07/16/25 19:06 Source: patient, RN notes reviewed and old records reviewed Mode of arrival: Wheelchair Limitations: no limitations History of Present Illness HPI Narrative: 79-year-old male with a past medical history of chronic pain, rheumatoid arthritis, GERD, COPD, hypertension, bullous pemphigoid who presents with the acute on chronic left knee pain. Patient has been seen multiple times in September for persistent pain. Had total knee arthroplasty with Dr. Rjaan. He states there has been a little bit of mild swelling, no warmth or erythema, no increased swelling, no fevers or chills. He notes his pain has not been well controlled. He unfortunately was dismissed from his primary care physician who was giving him weekly narcotics prescriptions secondary to breaking his pain contract. In the past 30 days he has received 150 tablets of narcotics including hydromorphone, hydrocodone, oxycodone and tramadol most recently on 07/10 when he received 30 tablets. Patient states he has been trying to follow up with the pain management. He states this is very similar to his prior episodes. He denies any new trauma or changes. Related Data Home Medications ?Medication ?Instructions ?Recorded ?Confirmed Disabled Parking Permit 1 % .Route SEEINSTR 11/08/20 06/26/25 amlodipine 5 mg tablet 5 mg PO DAILY 11/08/22 07/16/25 hydromorphone 2 mg tablet 2 mg PO Q3-4H PRN 07/16/25 07/16/25 methocarbamol 500 mg tablet 500 mg PO 3XD PRN muscle spasm 07/16/25 07/16/25 Previous Rx's ?Medication ?Instructions ?Recorded valacyclovir 1 gram tablet 1,000 mg PO TID #30 tabs 09/02/23 fluoxetine 10 mg capsule See Rx Instructions .Route 04/20/24 .COMPLEX #90 caps fluoxetine 20 mg capsule 20 mg PO DAILY #90 caps 04/20/24 naloxone 4 mg/actuation nasal 1 spray intranasal Q2M #2 ea 08/05/24 spray (Narcan) metoprolol succinate 100 mg 100 mg PO DAILY #90 tabs 10/15/24 tablet,extended release 24 hr omeprazole 40 mg capsule,delayed 40 mg PO DAILY #90 caps 01/21/25 release triamcinolone acetonide 0.5 % 1 applic topical BID #15 grams 12/04/24 topical cream lidocaine 5 % topical patch 1 patch topical DAILY #15 ea 04/23/25 aspirin 81 mg tablet,delayed 81 mg PO BID #90 tabs 06/16/25 release hydrocodone 5 mg-acetaminophen 325 1 tab PO Q4-6H PRN pain #20 tabs 06/26/25 mg tablet oxycodone 5 mg tablet 5 mg PO Q6H PRN pain #20 tabs 06/29/25 naloxone 4 mg/actuation nasal spray 4 mg intranasal Q3M PRN opioid 07/04/25 overdose #2 ea oxycodone 10 mg tablet 10 mg PO Q6H PRN pain #10 tabs 07/04/25 ketorolac 10 mg tablet 10 mg PO Q8H PRN pain #10 tabs 07/08/25 tramadol 50 mg tablet 50 mg PO Q8H PRN pain #10 tabs 07/08/25 meloxicam 7.5 mg tablet 7.5 mg PO BID PRN pain #10 tabs 07/16/25 Allergies Allergy/AdvReac Type Severity Reaction Status Date / Time cyclobenzaprine (From Allergy Severe Dizziness, Verified 07/16/25 16:05 Flexeril) I bounce off ag ibuprofen AdvReac Intermediate Redness of Verified 07/16/25 16:05 Skin acetaminophen (ACETAMINOPHEN) AdvReac Unknown Can't take Verified 07/16/25 16:05 r/t Hep C; upset stomach Review of Systems Review of Systems ROS Unobtainable: All systems reviewed & are unremarkable except as noted in HPI and below Patient History Medical History Encounter for pre-operative cardiovascular clearance Bullous pemphigoid Primary osteoarthritis of left knee Moderate substance use disorder Dermatitis Folliculitis Thrush GERD (gastroesophageal reflux disease) Hyponatremia Bronchitis Impaired cognition Left knee pain Chronic diarrhea Eustachian tube dysfunction Seasonal allergic rhinitis Dyspepsia Anemia Tinea Abdominal wall pain in both lower quadrants Constipation Aftercare following left shoulder joint replacement surgery Preoperative clearance Left lateral epicondylitis Adhesive capsulitis Right wrist sprain Oral lesion Colles' fracture Right wrist pain Left shoulder strain Anxiety Fibromyalgia Sinus drainage Chronic ankle pain, bilateral Rheumatoid arthritis Acute exacerbation of chronic bronchitis Foraminal stenosis of lumbar region Peripheral neuropathy Pneumonia (~2018) Impotence (Unknown) Restless leg syndrome (Unknown) Arthritis (Unknown) Chronic pain syndrome (Unknown) Kidney stones (Unknown) Prostate cancer (Unknown) Skin cancer (Unknown) Hepatitis C (Unknown) Hypertension (Unknown) Migraines (Unknown) PTSD (post-traumatic stress disorder) (Unknown) Depression (Unknown) Surgical History 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 Social History marital status: household members: spouse lives independently: Yes occupational status: previously employed Tobacco: How many years used: 20 quit status: has quit before alcohol intake: former substance use type: former substance user and marijuana tobacco type: cigarettes alcohol intake frequency: holidays/special occasions only Exam Narrative Exam Narrative: GENERAL: Alert and oriented x three, elderly male in mild distress HEENT: Head normocephalic, atraumatic, EOMI, pupils reactive, face symmetric, moist mucous membranes NECK: Supple, full range of motion CARDIOVASCULAR: Regular rate and rhythm without murmurs, rubs or gallops. RESPIRATORY: Breath sounds equal bilaterally, no wheezes rales or rhonchi. ABDOMEN: Soft, nontender. Normoactive bowel sounds all 4 quadrants. No guarding or rebound, rigidity, no mass : No CVA tenderness EXTREMITIES: Normal range of motion, no clubbing, patient has full range of motion. No erythema, no warmth or drainage. Patient has cap refill less than 2 seconds. Positive pulses bilaterally. He has not nontender to palpation over the knee itself no ballotable effusion. He has normal flexion and extension on my examination. Does have some blistering/bulla in the anterior left english. Patient states this has been there for some time and has not noted bolus pemphigoid. Neurovascularly intact NEUROLOGICAL: Cranial nerves II through XII grossly intact. Moving all extremities SKIN: Warm, dry, no petechiae. Initial Vital Signs Initial Vital Signs: Vital Signs Temperature 98.8 F 07/16/25 16:05 Pulse Rate 79 07/16/25 16:05 Respiratory Rate 18 07/16/25 16:05 Blood Pressure 119/68 07/16/25 16:05 Pulse Oximetry 96 07/16/25 16:05 Oxygen Delivery Method Room Air 07/16/25 16:05 Course Orders Ordered: ED Orders 07/16/25 16:09 XR knee LT 3V Stat Discontinued Medications Ketorolac Tromethamine (Ketorolac 30 Mg/Ml Vial) 30 mg IM NOW ONE Stop: 07/16/25 19:34 Last Admin: 07/16/25 19:40 Dose: 30 mg Documented By: QUAN Vital Signs Vital signs: Vital Signs - 8 hr 07/16/25 16:05 Temperature 98.8 F Pulse Rate 79 Respiratory Rate 18 Blood Pressure 119/68 Pulse Oximetry 96 Oxygen Delivery Method Room Air MDM - Fall MDM Narrative Medical decision making narrative: Left knee xray: Left knee arthroplasty without evidence and/or acute complication. No acute osseous abnormalities. Patient had IM Toradol. Reviewed patient's prior visits. On exam patient does have some blistering which appears to has been there in his prior visit as well, does not appear to have an infected knee although he did have recent knee surgery. Patient states this feels very similar to his pain that is been present. He denies fevers or other infectious changes. Has had significant number of opiates in the past 30 days, 150 tablets total has been dispensed with most recently 30 tablets of oxycodone on 07/10/2025. Patient was unfortunately dismissed from his primary care office because he broke his pain contract. At his last visit to the emergency department there was discussion about no longer prescribing opiates for pain. Patient expresses understanding. We did discuss possibility non narcotic opiate medication and he is agreeable to try this. He has a ibuprofen listed under his allergies has a redness of the skin. He has had ketorolac multiple times without issue. Discharge Plan Departure Patient Disposition: Home Clinical Impression: Knee pain, left Activity Restrictions/Additional Instructions: Follow up. Please reach out to pain management. You can also reach out to your insurance company and call the number on the back of your card to see if there any pain management groups under your insurance. You can take meloxicam 1 tablet every 12 hours as needed for pain. Prescription was sent to [facility] in [place]. Please return for fevers, any new changes such as increased redness, warmth or swelling, new drainage or other new or concerning changes. Prescriptions: New meloxicam 7.5 mg tablet 7.5 mg PO BID PRN (Reason: pain) Qty: 10 0RF No Action methocarbamol 500 mg tablet 500 mg PO 3XD PRN (Reason: muscle spasm) hydromorphone 2 mg tablet 2 mg PO Q3-4H PRN fluoxetine 20 mg capsule 20 mg PO DAILY Qty: 90 3RF Rx Instructions: Take with 10 mg to complete 30 mg dose fluoxetine 10 mg capsule See Rx Instructions .ROUTE .COMPLEX Qty: 90 3RF Dose Instruction: take 1 capsule by mouth once daily WITH 20MG CAP DAILY TOTAL 30 MG DAILY Rx Instructions: take 1 capsule by mouth once daily WITH 20MG CAP DAILY TOTAL 30 MG DAILY metoprolol succinate 100 mg tablet extended release 24 hr 100 mg PO DAILY Qty: 90 3RF lidocaine 5 % adhesive patch,medicated 1 patch topical DAILY Qty: 15 2RF Rx Instructions: leave on most painful area for up to 12 hrs omeprazole 40 mg capsule,delayed release(DR/EC) 40 mg PO DAILY Qty: 90 3RF Rx Instructions: take 1 capsule by mouth once daily triamcinolone acetonide 0.5 % cream 1 applic topical BID Qty: 15 1RF Rx Instructions: Applied to affected areas valacyclovir 1 gram tablet 1,000 mg PO TID Qty: 30 0RF naloxone [Narcan] 4 mg/actuation spray,non-aerosol 1 spray intranasal Q2M Qty: 2 0RF Rx Instructions: spray 1 dose into ONE nostril; alternate nostrils w each dose until help arrives aspirin 81 mg Tablet,Delayed Release (Dr/Ec) 81 mg PO BID Qty: 90 0RF hydrocodone-acetaminophen 5-325 mg tablet 1 tab PO Q4-6H PRN (Reason: pain) Qty: 20 0RF oxycodone 5 mg tablet 5 mg PO Q6H PRN (Reason: pain) Qty: 20 0RF oxycodone 10 mg tablet 10 mg PO Q6H PRN (Reason: pain) Qty: 10 0RF naloxone 4 mg/actuation spray,non-aerosol 4 mg intranasal Q3M PRN (Reason: opioid overdose) Qty: 2 0RF Rx Instructions: spray 1 dose into ONE nostril; alternate nostrils w each dose until help arrives tramadol 50 mg tablet 50 mg PO Q8H PRN (Reason: pain) Qty: 10 0RF ketorolac 10 mg tablet 10 mg PO Q8H PRN (Reason: pain) Qty: 10 0RF Rx Instructions: maximum total duration of 5 days from all oral, intranasal, or parenteral formulations Disabled Parking Permit 1 1 % .Route SEEINSTR Rx Instructions: .RouteValid for 5 years amlodipine 5 mg tablet 5 mg PO DAILY Patient Comments: pt received dose in hospital 11/10/19 early AM admit to [facility] Referrals: Miscellaneous,MD Sera [Primary Care Provider, Medical] Zoraida Rajan MD [Physician, Orthopedic Surgery] Stand Alone Forms: Patient Portal/API
[2025-07-16] MEDS: KETOROLAC 30 MG/ML VIAL IM (19:40)
== END 2025-07-16 19:50 | disposition home or self-care (01) ==
PROVIDERS: Emergency Provider Emergency Medicine
DX: M25.562 Pain in left knee (principal)
CPT/HCPCS: 73562; 96372; 99283; J1885

== ENCOUNTER 2025-07-19 16:52 | Emergency (ER) | payer MEDICARE, OTHER, SELFPAY ==
[2025-06-15 15:10] VITALS: BMI 29.2
[2025-07-19 17:02] VITALS: BP 143/81; PULSE 101; RESP 18; TEMP 37.2; O2SAT 97; BMI 29.7
--- NOTE | 2025-07-19 17:18 | DI.RAD.S_ITS ---
PROCEDURE: XR KNEE LT 3V INDICATIONS: knee popped, went sideways, pain TECHNIQUE: 3 views of the knee were acquired. COMPARISON: [facility], CR, XR KNEE LT 3V, 07/16/2025, 16:45. FINDINGS: Bones: No fractures or dislocations. No suspicious bony lesions. Status post total left knee arthroplasty with patellar resurfacing. No evidence of hardware complication. Soft tissues: No joint effusion. No suspicious soft tissue calcifications. IMPRESSION: No acute bony abnormality or significant effusion. Stable appearance of left knee arthroplasty. If symptoms persist with conservative management, consider cross-sectional imaging such as CT or MRI. Approved by: Kaya Leigh M.D.,Ph.D. on 07/19/2025 at 18:35
--- NOTE | 2025-07-19 18:40 | ED_ITS ---
<Statement entered by Chano Pichardo, DO - 07/19/25 23:35> Co-sign statement: I was available for consultation during this patient's emergency department visit. This chart is being signed by myself for administrative purposes only. I do not have direct contact with this patient during this visit. They were seen independently by the APC. HPI - Extremity Problem General Chief complaint: Extremity Problem,Nontraumatic Stated complaint: left knee pain Time Seen by Provider: 07/19/25 17:15 Source: patient Mode of arrival: Ambulatory History of Present Illness HPI Narrative: Mr. Barrett Tam is a pleasant 79-year-old male with a past medical history of chronic pain from multiple sources, rheumatoid arthritis, GERD, COPD, HTN, bullous pemphigoid who presents to the emergency department for acute on chronic left knee pain. Patient states he started physical therapy this morning, after leaving physical therapy his left knee ?popped? and gave out causing severe pain. Patient declines taking anything for the pain. The pain except for the left knee at this time. No numbness tingling or weakness, fevers, chills, open wounds. He did have some blisters on the anterior left knee that have now he aled. States that he has an appointment with his orthopedic surgeon tomorrow or the next day, and states that he might be seeing [facility] next week however his keeps track of his appointments and she is not here with him today. He does come to the ER frequently, most recent visit was on Saturday07/16/2025 and was prescribed meloxicam at that time, patient doesn't report taking this medication. Related Data Home Medications ?Medication ?Instructions ?Recorded ?Confirmed Disabled Parking Permit 1 % .Route SEEINSTR 11/08/20 06/26/25 amlodipine 5 mg tablet 5 mg PO DAILY 11/08/2207/16 hydromorphone 2 mg tablet 2 mg PO Q3-4H PRN 07/16/25 1 methocarbamol 500 mg tablet 500 mg PO 3XD PRN muscle s pasm 07/16/25 07/16/25 Previous Rx's ?Medication ?Instructions ?Recorded valacyclovir 1 gram tablet 1,000 mg PO TID #30 tabs fluoxetine 10 mg capsule See Rx Instructions .Route 0 04/20/24 .COMPLEX #90 caps fluoxetine 20 mg capsule 20 mg PO DAILY #90 caps 07/06/06 naloxone 4 mg/actuation nasal 1 spray intranasal Q2M # 2 ea 08/05/24 spray (Narcan) metoprolol succinate 100 mg 100 mg PO DAILY #90 tabs 0 10/15/24 tablet,extended release 24 hr omeprazole 40 mg capsule,delayed 40 mg PO DAILY #90 ca ps 11/03/24 release triamcinolone acetonide 0.5 % 1 applic topical BID #15 grams 12/04/24 topical cream lidocaine 5 % topical patch 1 patch topical DAILY #15 ea 04/23/25 aspirin 81 mg tablet,delayed 81 mg PO BID #90 tabs 01/05 release hydrocodone 5 mg-acetaminophen 325 1 tab PO Q4-6H PRN pain #20 tabs 06/26/25 mg tablet oxycodone 5 mg tablet 5 mg PO Q6H PRN pain #20 tab s 06/29/25 naloxone 4 mg/actuation nasal spray 4 mg intranasal Q3 M PRN opioid 07/04/25 overdose #2 ea oxycodone 10 mg tablet 10 mg PO Q6H PRN pain #10 ta bs 07/04/25 ketorolac 10 mg tablet 10 mg PO Q8H PRN pain #10 ta bs 07/08/25 tramadol 50 mg tablet 50 mg PO Q8H PRN pain #10 ta bs 07/08/25 meloxicam 7.5 mg tablet 7.5 mg PO BID PRN pain #10 t abs 07/16/25 Allergies Allergy/AdvReac Type Severity Reaction Status Date / Time cyclobenzaprine (From Allergy Severe Dizziness, Verified 07/19/25 17:02 Flexeril) I bounce off ag ibuprofen AdvReac Intermediate Redness of Verified 07/19/25 17:02 Skin acetaminophen (ACETAMINOPHEN) AdvReac Unknown Can't take Verified 07/19/25 17:02 r/t Hep C; upset stomach Review of Systems Review of Systems ROS Unobtainable: All systems reviewed & are unremarkable except as noted in HPI and below Patient History Medical History Encounter for pre-operative cardiovascular clearance Bullous pemphigoid Primary osteoarthritis of left knee Moderate substance use disorder Dermatitis Folliculitis Thrush GERD (gastroesophageal reflux disease) Hyponatremia Bronchitis Impaired cognition Left knee pain Chronic diarrhea Eustachian tube dysfunction Seasonal allergic rhinitis Dyspepsia Anemia Tinea Abdominal wall pain in both lower quadrants Constipation Aftercare following left shoulder joint replacement surgery Preoperative clearance Left lateral epicondylitis Adhesive capsulitis Right wrist sprain Oral lesion Colles' fracture Right wrist pain Left shoulder strain Anxiety Fibromyalgia Sinus drainage Chronic ankle pain, bilateral Rheumatoid arthritis Acute exacerbation of chronic bronchitis Foraminal stenosis of lumbar region Peripheral neuropathy Pneumonia (~2018) Impotence (Unknown) Restless leg syndrome (Unknown) Arthritis (Unknown) Chronic pain syndrome (Unknown) Kidney stones (Unknown) Prostate cancer (Unknown) Skin cancer (Unknown) Hepatitis C (Unknown) Hypertension (Unknown) Migraines (Unknown) PTSD (post-traumatic stress disorder) (Unknown) Depression (Unknown) Surgical History 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 Social History marital status: household members: spouse lives independently: Yes occupational status: previously employed Tobacco: How many years used: 20 quit status: has quit before alcohol intake: former substance use type: former substance user and marijuana tobacco type: cigarettes alcohol intake frequency: holidays/special occasions only Exam Narrative Exam Narrative: GENERAL: 79 year old patient appears stated age. Well-developed patient, in no acute distress. HEAD: Atraumatic. Normocephalic. NECK: Trachea midline. Cervical ROM intact. CARDIOVASCULAR: Regular rate RESPIRATORY: ?Nonlabored respirations. ?Speaking in clear, full sentences. ? EXTREMITIES: Tenderness to palpation of the anterior left knee. Previous anterior left knee blisters are well healed. No erythema, increased warmth or edema of the left knee. Patient is able to flex and extend the knee. 2+ PT pulses bilaterally, sensation intact to light touch in the bilateral lower extremities. NEURO: AOx3. ?Clear speech. ?Moves all 4 extremities appropriately. Ambulates independently without assistance. 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 Imaging Data Left Knee X-Ray: Radiologist's Impression: PROCEDURE: XR KNEE LT 3V INDICATIONS: knee popped, went sideways, pain TECHNIQUE: 3 views of the knee were acquired. COMPARISON: [facility], , XR KNEE LT 3V, 07/16/2025, 16:45. FINDINGS: Bones: No fractures or dislocations. No suspicious bony lesions. Status post total left knee arthroplasty with patellar resurfacing. No evidence of hardware complication. Soft tissues: No joint effusion. No suspicious soft tissue calcifications. IMPRESSION: No acute bony abnormality or significant effusion. Stable appearance of left knee arthroplasty. If symptoms persist with conservative management, consider cross-sectional imaging such as CT or MRI. Approved by: Kaya Leigh M.D.,Ph.D. on 07/19/2025 at 18:35 MDM Narrative Medical decision making narrative: 79-year-old male with a past medical history of chronic pain from multiple sources, rheumatoid arthritis, GERD, COPD, HTN, bullous pemphigoid who presents to the emergency department for acute on chronic left knee pain. Differential diagnosis includes but is not limited to left knee sprain, strain, fracture, contusion, etc. On exam patient is in no acute distress, nontoxic appearing. Lower extremities neurovascularly intact. No deformities of left knee. Tender to palpation anterior left knee. Given history of popping and giving out of knee, x-ray was obtained which reveals no acute bony abnormalities, stable appearance of the left knee arthroplasty. Discussed with the patient the importance of establishing care with a PCP, pain management doctor. parks and recreation worker graciously met with the patient, and offered him multiple resources which he actually was not very interested in however referral was placed for him to find a new PCP. States that he is seeing ortho later this week, [facility]. We will treat patient's acute on chronic pain with 15 mg IM Toradol. Jermaine wrap applied to left knee for support. Discussed supportive care, rest, ice, compression, elevation, following up with physical therapy and a PCP and a pain management doctor. Recommended he use meloxicam at home for pain that was prescribed last ER visit. He verbalized understanding of all information agreeable with the plan. He is stable for discharge home. Discharge Plan Departure Patient Disposition: Home Clinical Impression: Chronic pain of left knee Instructions: DI for Knee Pain Activity Restrictions/Additional Instructions: Dear Mr. Tam, Today you were evaluated for left knee pain. Your x-ray does not reveal any hardware bony abnormalities. Please follow up with your left knee surgeon for further evaluation of your pain. Please use the Jermaine wrap that you were provided with for support. Please use the prescribed meloxicam that you were prescribed last ER visit for pain if needed. Please follow up with your scheduled appointments. Please use RICE therapy for your pain in addition to meloxicam. Rest the painful area. Ice the area of pain/swelling for at least 15 minutes, 4x a day. Compress the area of swelling using a brace, wrap, or splint if applied. Elevate the painful or swollen extremity by supporting it above the level of the heart with pillows when sitting or laying. Please follow up with your primary care doctor within the next 2-3 days for ER follow-up. (If you do not have a PCP you can call [phone]. ?to schedule an appointment with an [facility] Primary Care Provider) IF YOU DEVELOP ANY NEW OR WORSENING SYMPTOMS, RETURN TO THE ER! Please read the attached instructions, they highlight more specific treatments and interventions for you at home. Thank you for letting me participate in your care, Joy Valdez PA-C Prescriptions: No Action methocarbamol 500 mg tablet 500 mg PO 3XD PRN (Reason: muscle spasm) hydromorphone 2 mg tablet 2 mg PO Q3-4H PRN fluoxetine 20 mg capsule 20 mg PO DAILY Qty: 90 3RF Rx Instructions: Take with 10 mg to complete 30 mg dose fluoxetine 10 mg capsule See Rx Instructions .ROUTE .COMPLEX Qty: 90 3RF Dose Instruction: take 1 capsule by mouth once daily WITH 20MG CAP DAILY TOTAL 30 MG DAILY Rx Instructions: take 1 capsule by mouth once daily WITH 20MG CAP DAILY TOTAL 30 MG DAILY metoprolol succinate 100 mg tablet extended release 24 hr 100 mg PO DAILY Qty: 90 3RF lidocaine 5 % adhesive patch,medicated 1 patch topical DAILY Qty: 15 2RF Rx Instructions: leave on most painful area for up to 12 hrs omeprazole 40 mg capsule,delayed release(DR/EC) 40 mg PO DAILY Qty: 90 3RF Rx Instructions: take 1 capsule by mouth once daily triamcinolone acetonide 0.5 % cream 1 applic topical BID Qty: 15 1RF Rx Instructions: Applied to affected areas valacyclovir 1 gram tablet 1,000 mg PO TID Qty: 30 0RF naloxone [Narcan] 4 mg/actuation spray,non-aerosol 1 spray intranasal Q2M Qty: 2 0RF Rx Instructions: spray 1 dose into ONE nostril; alternate nostrils w each dose until help arrives aspirin 81 mg Tablet,Delayed Release (Dr/Ec) 81 mg PO BID Qty: 90 0RF hydrocodone-acetaminophen 5-325 mg tablet 1 tab PO Q4-6H PRN (Reason: pain) Qty: 20 0RF oxycodone 5 mg tablet 5 mg PO Q6H PRN (Reason: pain) Qty: 20 0RF oxycodone 10 mg tablet 10 mg PO Q6H PRN (Reason: pain) Qty: 10 0RF naloxone 4 mg/actuation spray,non-aerosol 4 mg intranasal Q3M PRN (Reason: opioid overdose) Qty: 2 0RF Rx Instructions: spray 1 dose into ONE nostril; alternate nostrils w each dose until help arrives tramadol 50 mg tablet 50 mg PO Q8H PRN (Reason: pain) Qty: 10 0RF ketorolac 10 mg tablet 10 mg PO Q8H PRN (Reason: pain) Qty: 10 0RF Rx Instructions: maximum total duration of 5 days from all oral, intranasal, or parenteral formulations meloxicam 7.5 mg tablet 7.5 mg PO BID PRN (Reason: pain) Qty: 10 0RF Disabled Parking Permit 1 1 % .Route SEEINSTR Rx Instructions: .RouteValid for 5 years amlodipine 5 mg tablet 5 mg PO DAILY Patient Comments: pt received dose in hospital 11/10/19 early AM admit to [facility] Referrals: Miscellaneous,Doctor, MD [Primary Care Provider, Medical] Stand Alone Forms: Patient Portal/API
--- NOTE | 2025-07-19 18:55 | CM.SWNOTE ---
ED GROUND OPERATIONS SUPERINTENDENT Assessment Note: Pt is a 79yo male, resident of [place], is seen in the ED for pain in his knee, he is s/p TKA. Pt lives in a house with his , Lanette. Pt's Primary Care Provider was previously Edilberto Snell (dismissed from Clinic two weeks ago due to breaching pain contract) and insurance is Medicare and [employer]. Reviewed chart and discussed with multidisciplinary team pt's medical status and initial discharge needs. Per ED Provider, pt is no longer offered narcotic pain meds at discharge from ED and will need to re-establish care with PCP for follow up. GROUND OPERATIONS SUPERINTENDENT entered room to meet with patient, introduced self and role. Pt states he is in a lot of pain, Look, I am shaking. I am not usually shaking. Patient states he believes he has an appointment this week with Dr. Rajan (Ortho) and an appointment with the [facility] in a couple of weeks, I usually can keep track of that but now my is taking care of it and I can't get it straight. Pt agreed to finding a new PCP in the [place] area only (not at [facility]). GROUND OPERATIONS SUPERINTENDENT discussed community bleacher pulp or case management to assist with appointments and decrease risk of being dismissed at clinics for no show appointments, pt declined all. 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 GROUND OPERATIONS SUPERINTENDENT calls [facility], they asked to send a referral and they will confer with pt if they can accept as new patient. Faxed facesheet and recent ED note to fax# [phone]. Provided clinic contact information to patient. Pt eager to obtain pain shot of toradol and discharge home. GROUND OPERATIONS SUPERINTENDENT reviews this with ED provider FIORDALIZA Valdez who indicates agreement and understanding. Plan: Pt to discharge home when pain managed, will transport self. KORY Cash
[2025-07-19] MEDS: KETOROLAC 30 MG/ML VIAL 15 MG IM (19:17)
--- NOTE | 2025-07-20 11:50 | CM.SWNOTE ---
ED SPONGE BUFFER Follow Up Note SPONGE BUFFER receives call from [facility], it is reported that they have a referral for patient and just reached out to him but his voice mail box is not set up and they were unable to reach him. ED relay dispatcher to attempt to inform patient to reach out to pain clinic upon next presentation to the ED. Marlen Madera, CAR DESIGNER
== END 2025-07-19 19:18 | disposition home or self-care (01) ==
PROVIDERS: Emergency Provider Physician Assistant
DX: M25.562 Pain in left knee (principal); G89.29 Other chronic pain
CPT/HCPCS: 73562; 96372; 99283; J1885

== ENCOUNTER 2025-07-20 14:42 | Emergency (ER) | payer MEDICARE, OTHER, SELFPAY ==
[2025-06-15 15:10] VITALS: BMI 29.2
[2025-07-20 14:45] VITALS: BP 144/81; PULSE 85; RESP 18; TEMP 37.3; O2SAT 96; BMI 29.7
--- NOTE | 2025-07-20 14:47 | CM.SWNOTE ---
MANAGER APPLIED Note MANAGER APPLIED met with patient briefly in triage and informed him to contact the [facility] as the clinic has a current referral for patient, MANAGER APPLIED explains that they tried to reach patient today but voicemail box was not set up. Patient indicates agreement and understanding. Marlen Madera, PREFINISH OPERATOR
--- NOTE | 2025-07-20 18:14 | ED_ITS ---
HPI - Extremity Injury (Lower) <Joy Valdez PA-C - Last Filed: 07/20/25 19:04> General Chief Complaint: Extremity Injury, Lower Stated Complaint: L leg pain Time Seen by Provider: 07/20/25 18:13 Source: patient Mode of arrival: Ambulatory History of Present Illness HPI Narrative: Mr. Barrett Tam is a pleasant 79-year-old male with a past medical history of chronic pain from multiple sources, rheumatoid arthritis, GERD, COPD, HTN, bullous pemphigoid who presents to the emergency department for chronic left knee pain. I did see Mr. Tam in the ER yesterday, he had an x-ray was treated with Toradol, recommended to take his home meloxicam that was prescribed in the ER a few days earlier. Social work did meet with him yesterday and attempt to provide him with resources for pain management, PCP. It appears that his voice mailbox is full/not set up, so these offices have been unable to reach him. He states that the Toradol injection did help him yesterday however once that wore off his left knee came back, reports that this left knee pain is now causing him to feel pain everywhere including a headache, right knee pain, low back pain. He is here hoping for pain medicine for his left knee. No new trauma or injuries to the knee. Related Data Home Medications ?Medication ?Instructions ?Recorded ?Confirmed Disabled Parking Permit 1 % .Route SEEINSTR 11/08/20 06/26/25 amlodipine 5 mg tablet 5 mg PO DAILY 11/08/2207/16 hydromorphone 2 mg tablet 2 mg PO Q3-4H PRN 07/16/25 1 methocarbamol 500 mg tablet 500 mg PO 3XD PRN muscle s pasm 07/16/25 07/16/25 Previous Rx's ?Medication ?Instructions ?Recorded valacyclovir 1 gram tablet 1,000 mg PO TID #30 tabs fluoxetine 10 mg capsule See Rx Instructions .Route 0 04/20/24 .COMPLEX #90 caps fluoxetine 20 mg capsule 20 mg PO DAILY #90 caps 06/06 naloxone 4 mg/actuation nasal 1 spray intranasal Q2M # 2 ea 08/05/24 spray (Narcan) metoprolol succinate 100 mg 100 mg PO DAILY #90 tabs 0 10/15/24 tablet,extended release 24 hr omeprazole 40 mg capsule,delayed 40 mg PO DAILY #90 ca ps 11/03/24 release triamcinolone acetonide 0.5 % 1 applic topical BID #15 grams 12/04/24 topical cream lidocaine 5 % topical patch 1 patch topical DAILY #15 ea 04/23/25 aspirin 81 mg tablet,delayed 81 mg PO BID #90 tabs 01/05 release hydrocodone 5 mg-acetaminophen 325 1 tab PO Q4-6H PRN pain #20 tabs 06/26/25 mg tablet oxycodone 5 mg tablet 5 mg PO Q6H PRN pain #20 tab s 06/29/25 naloxone 4 mg/actuation nasal spray 4 mg intranasal Q3 M PRN opioid 07/04/25 overdose #2 ea oxycodone 10 mg tablet 10 mg PO Q6H PRN pain #10 ta bs 07/04/25 ketorolac 10 mg tablet 10 mg PO Q8H PRN pain #10 ta bs 07/08/25 tramadol 50 mg tablet 50 mg PO Q8H PRN pain #10 ta bs 07/08/25 meloxicam 7.5 mg tablet 7.5 mg PO BID PRN pain #10 t abs 07/16/25 lidocaine 5 % topical patch 1 patch topical DAILY PRN pain #30 07/20/25 (Lidoderm) ea meloxicam 7.5 mg tablet 7.5 mg PO DAILY #10 tabs 05/07 Allergies Allergy/AdvReac Type Severity Reaction Status Date / Time cyclobenzaprine (From Allergy Severe Dizziness, Verified 07/20/25 14:46 Flexeril) I bounce off ag ibuprofen AdvReac Intermediate Redness of Verified 07/20/25 14:46 Skin acetaminophen (ACETAMINOPHEN) AdvReac Unknown Can't take Verified 07/20/25 14:46 r/t Hep C; upset stomach Review of Systems <Joy Valdez PA-C - Last Filed: 07/20/25 19:04> Review of Systems ROS Unobtainable: All systems reviewed & are unremarkable except as noted in HPI and below Patient History <Joy Valdez PA-C - Last Filed: 07/20/25 19:04> Medical History Encounter for pre-operative cardiovascular clearance Bullous pemphigoid Primary osteoarthritis of left knee Moderate substance use disorder Dermatitis Folliculitis Thrush GERD (gastroesophageal reflux disease) Hyponatremia Bronchitis Impaired cognition Left knee pain Chronic diarrhea Eustachian tube dysfunction Seasonal allergic rhinitis Dyspepsia Anemia Tinea Abdominal wall pain in both lower quadrants Constipation Aftercare following left shoulder joint replacement surgery Preoperative clearance Left lateral epicondylitis Adhesive capsulitis Right wrist sprain Oral lesion Colles' fracture Right wrist pain Left shoulder strain Anxiety Fibromyalgia Sinus drainage Chronic ankle pain, bilateral Rheumatoid arthritis Acute exacerbation of chronic bronchitis Foraminal stenosis of lumbar region Peripheral neuropathy Pneumonia (~2018) Impotence (Unknown) Restless leg syndrome (Unknown) Arthritis (Unknown) Chronic pain syndrome (Unknown) Kidney stones (Unknown) Prostate cancer (Unknown) Skin cancer (Unknown) Hepatitis C (Unknown) Hypertension (Unknown) Migraines (Unknown) PTSD (post-traumatic stress disorder) (Unknown) Depression (Unknown) Surgical History 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 Social History marital status: household members: spouse lives independently: Yes occupational status: previously employed Tobacco: How many years used: 20 quit status: has quit before alcohol intake: former substance use type: former substance user and marijuana tobacco type: cigarettes alcohol intake frequency: holidays/special occasions only Exam <Joy Valdez PA-C - Last Filed: 07/20/25 19:04> Narrative Exam Narrative: GENERAL: 79 year old patient appears stated age. Well-developed patient, in no acute distress. HEAD: Atraumatic. Normocephalic. CARDIOVASCULAR: Regular rate RESPIRATORY: ?Nonlabored respirations. ?Speaking in clear, full sentences. EXTREMITIES: Nonfocal left knee anterior tenderness. No erythema or increased warmth of the knee, no open wounds. No edema bilaterally, palpable DP and PT pulses bilaterally, brisk cap refill in the toes bilaterally. NEURO: AOx3. ?Clear speech. ?SITLTL BL LE. SKIN: No rash or erythema of visible areas Initial Vital Signs Initial Vital Signs: Vital Signs Temperature 99.2 F 07/20/25 14:45 Pulse Rate 85 07/20/25 14:45 Respiratory Rate 18 07/20/25 14:45 Blood Pressure 144/81 H 07/20/25 14:45 Pulse Oximetry 96 07/20/25 14:45 Oxygen Delivery Method Room Air 07/20/25 14:45 <Ray Diamond MD - Last Filed: 07/20/25 23:21> Initial Vital Signs Initial Vital Signs: Vital Signs Temperature 99.2 F 07/20/25 14:45 Pulse Rate 85 07/20/25 14:45 Respiratory Rate 18 07/20/25 14:45 Blood Pressure 144/81 H 07/20/25 14:45 Pulse Oximetry 96 07/20/25 14:45 Oxygen Delivery Method Room Air 07/20/25 14:45 Course <Joy Valdez PA-C - Last Filed: 07/20/25 19:04> Orders Ordered: Discontinued Medications Ketorolac Tromethamine (Ketorolac 30 Mg/Ml Vial) 15 mg IM NOW ONE Stop: 07/20/25 18:22 Last Admin: 07/20/25 18:29 Dose: 15 mg Documented By: FAM Ghosh (Lidocaine 5% Patch) 1 each TOP NOW ONE Stop: 07/20/25 18:22 Last Admin: 07/20/25 18:30 Dose: 1 each Documented By: FAM Vital Signs Vital signs: Vital Signs - 8 hr 07/20/25 18:46 Pulse Rate 92 H Respiratory Rate 18 Pulse Oximetry 98 <Ray Diamond MD - Last Filed: 07/20/25 23:21> Orders Ordered: Discontinued Medications Ketorolac Tromethamine (Ketorolac 30 Mg/Ml Vial) 15 mg IM NOW ONE Stop: 07/20/25 18:22 Last Admin: 07/20/25 18:29 Dose: 15 mg Documented By: FAM Lidocaine (Lidocaine 5% Patch) 1 each TOP NOW ONE Stop: 07/20/25 18:22 Last Admin: 07/20/25 18:30 Dose: 1 each Documented By: FAM Vital Signs Vital signs: Vital Signs - 8 hr 07/20/25 18:46 Pulse Rate 92 H Respiratory Rate 18 Pulse Oximetry 98 [facility] - Extremity Injury (Lower) <Joy Valdez PA-C - Last Filed: 07/20/25 19:04> Medical Records Attestation: I reviewed the patient's medical records. [facility] Narrative Medical decision making narrative: 79-year-old male with a past medical history of chronic pain from multiple sources, rheumatoid arthritis, GERD, COPD, HTN, bullous pemphigoid who presents to the emergency department for chronic left knee pain. Differential diagnosis includes but is not limited to postoperative pain, knee sprain, strain, arthritis, acute on chronic pain, etc. On exam patient is in no acute distress, nontoxic appearing, vital signs within normal limits. He is experiencing his chronic left knee pain that returned after the Toradol wore off yesterday. No new trauma. He is neurovascularly intact. No signs of infection. Social work did attempt to help patient with outpatient resources, his voice mailbox is full therefore the offices can not leave from voicemail schedule appointments. States that he does have an appointment with his surgeon and [facility] coming up soon but needs pain meds to get him through. He was previously prescribed meloxicam, states that he does not have this is not taking this, has no pain meds at home. We will treat with 15 mg IM Toradol in the ER in addition to topical Lidoderm which he is agreeable to. I did prescribe him topical Lidoderm in addition to meloxicam which I encourage she take once daily. Patient verbalized understanding of all information agreeable with the plan. He is neurovascularly intact and stable for discharge home. <Ray Diamond MD - Last Filed: 07/20/25 23:21> [facility] Narrative Medical decision making narrative: 79-year-old male with a past medical history of chronic pain from multiple sources, rheumatoid arthritis, GERD, COPD, HTN, bullous pemphigoid who presents to the emergency department for chronic left knee pain. Differential diagnosis includes but is not limited to postoperative pain, knee sprain, strain, arthritis, acute on chronic pain, etc. On exam patient is in no acute distress, nontoxic appearing, vital signs within normal limits. He is experiencing his chronic left knee pain that returned after the Toradol wore off yesterday. No new trauma. He is neurovascularly intact. No signs of infection. Social work did attempt to help patient with outpatient resources, his voice mailbox is full therefore the offices can not leave from voicemail schedule appointments. States that he does have an appointment with his surgeon and [facility] coming up soon but needs pain meds to get him through. He was previously prescribed meloxicam, states that he does not have this is not taking this, has no pain meds at home. We will treat with 15 mg IM Toradol in the ER in addition to topical Lidoderm which he is agreeable to. I did prescribe him topical Lidoderm in addition to meloxicam which I encourage she take once daily. Patient verbalized understanding of all information agreeable with the plan. He is neurovascularly intact and stable for discharge home. I was available for consultation in the ER and this patient throughout the visit. I do not see the patient personally. Discharge Plan Departure Patient Disposition: Home Clinical Impression: Chronic pain of left knee Instructions: DI for Knee Pain Activity Restrictions/Additional Instructions: Dear Mr. Tam, Today you were evaluated for left knee pain. You were treated with intramuscular injection of pain medication in addition to topical lidocaine patches. I have sent you prescription for topical lidocaine patches in addition to a once daily pain medication. Please follow up with the orthopedic surgeon, [facility], and a new primary care provider. Please set up your voicemail on your phone so that you can receive calls so that the doctor's offices can schedule you for appointments. Please follow up with your primary care doctor within the next 2-3 days for ER follow-up. (If you do not have a PCP you can call [phone]. ?to schedule an appointment with an [facility] Primary Care Provider) IF YOU DEVELOP ANY NEW OR WORSENING SYMPTOMS, RETURN TO THE ER! Please read the attached instructions, they highlight more specific treatments and interventions for you at home. Thank you for letting me participate in your care, Joy Valdez PA-C Prescriptions: New lidocaine [Lidoderm] 5 % adhesive patch,medicated 1 patch topical DAILY PRN (Reason: pain) Qty: 30 0RF Rx Instructions: leave on most painful area for up to 12 hrs meloxicam 7.5 mg tablet 7.5 mg PO DAILY Qty: 10 0RF No Action methocarbamol 500 mg tablet 500 mg PO 3XD PRN (Reason: muscle spasm) hydromorphone 2 mg tablet 2 mg PO Q3-4H PRN fluoxetine 20 mg capsule 20 mg PO DAILY Qty: 90 3RF Rx Instructions: Take with 10 mg to complete 30 mg dose fluoxetine 10 mg capsule See Rx Instructions .ROUTE .COMPLEX Qty: 90 3RF Dose Instruction: take 1 capsule by mouth once daily WITH 20MG CAP DAILY TOTAL 30 MG DAILY Rx Instructions: take 1 capsule by mouth once daily WITH 20MG CAP DAILY TOTAL 30 MG DAILY metoprolol succinate 100 mg tablet extended release 24 hr 100 mg PO DAILY Qty: 90 3RF lidocaine 5 % adhesive patch,medicated 1 patch topical DAILY Qty: 15 2RF Rx Instructions: leave on most painful area for up to 12 hrs omeprazole 40 mg capsule,delayed release(DR/EC) 40 mg PO DAILY Qty: 90 3RF Rx Instructions: take 1 capsule by mouth once daily triamcinolone acetonide 0.5 % cream 1 applic topical BID Qty: 15 1RF Rx Instructions: Applied to affected areas valacyclovir 1 gram tablet 1,000 mg PO TID Qty: 30 0RF naloxone [Narcan] 4 mg/actuation spray,non-aerosol 1 spray intranasal Q2M Qty: 2 0RF Rx Instructions: spray 1 dose into ONE nostril; alternate nostrils w each dose until help arrives aspirin 81 mg Tablet,Delayed Release (Dr/Ec) 81 mg PO BID Qty: 90 0RF hydrocodone-acetaminophen 5-325 mg tablet 1 tab PO Q4-6H PRN (Reason: pain) Qty: 20 0RF oxycodone 5 mg tablet 5 mg PO Q6H PRN (Reason: pain) Qty: 20 0RF oxycodone 10 mg tablet 10 mg PO Q6H PRN (Reason: pain) Qty: 10 0RF naloxone 4 mg/actuation spray,non-aerosol 4 mg intranasal Q3M PRN (Reason: opioid overdose) Qty: 2 0RF Rx Instructions: spray 1 dose into ONE nostril; alternate nostrils w each dose until help arrives tramadol 50 mg tablet 50 mg PO Q8H PRN (Reason: pain) Qty: 10 0RF ketorolac 10 mg tablet 10 mg PO Q8H PRN (Reason: pain) Qty: 10 0RF Rx Instructions: maximum total duration of 5 days from all oral, intranasal, or parenteral formulations meloxicam 7.5 mg tablet 7.5 mg PO BID PRN (Reason: pain) Qty: 10 0RF Disabled Parking Permit 1 1 % .Route SEEINSTR Rx Instructions: .RouteValid for 5 years amlodipine 5 mg tablet 5 mg PO DAILY Patient Comments: pt received dose in hospital 11/10/19 early AM admit to [facility] Referrals: Miscellaneous,Doctor, MD [Primary Care Provider, Medical] Stand Alone Forms: Patient Portal/API
[2025-07-20] MEDS: KETOROLAC 30 MG/ML VIAL 15 MG IM (18:29)
--- NOTE | 2025-07-20 18:29 | PC.NURSE ---
no apparent injury or deformity noted
[2025-07-20] MEDS: LIDOCAINE 5% PATCH 1 EACH TOP (18:30)
[2025-07-20 18:46] VITALS: PULSE 92; RESP 18; O2SAT 98
== END 2025-07-20 18:49 | disposition home or self-care (01) ==
PROVIDERS: Emergency Provider Physician Assistant
DX: G89.29 Other chronic pain (principal)
CPT/HCPCS: 96372; 99283; J1885

== ENCOUNTER 2025-07-29 12:48 | Emergency (ER) | payer MEDICARE, OTHER, SELFPAY ==
[2025-06-15 15:10] VITALS: BMI 29.2
[2025-07-29] VITALS (12 sets, daily range): BP systolic 124–218; BP diastolic 65–105; PULSE 97–129; RESP 16–26; TEMP 37.1; O2SAT 94–100; BMI 29.7
--- NOTE | 2025-07-29 12:59 | DI.CT.S_ITS ---
PROCEDURE: CT HEAD/BRAIN WO CON INDICATIONS: worst headache of life sudden onset TECHNIQUE: Noncontrast 4.5 mm thick angled axial sections acquired from the foramen magnum to the vertex, with coronal and sagittal reformats. For radiation dose reduction, the following was used: automated exposure control, adjustment of mA and/or kV according to patient size. COMPARISON: [facility], CT, CT HEAD/BRAIN WO CON, 06/04/2025, 19:01. FINDINGS: Image quality: Streak artifact can be seen through the skull base. CSF spaces: Basal cisterns are patent. No extra-axial fluid collections. The ventricles are symmetric in size and shape. Brain: No intracranial bleeds or mass effect. There is cerebral volume loss, with resultant ventricular and sulcal prominence. There are periventricular and deep white matter chronic small vessel ischemic changes. There is intracranial internal carotid artery atherosclerosis. Skull and face: Calvarium and visualized facial bones appear intact, without suspicious lesions. Sinuses: Visualized sinuses and mastoids are clear. IMPRESSION: No acute intracranial hemorrhage is seen. No acute intracranial pathology. To the limits of this noncontrast study, no findings of intracranial masses or mass effect can be seen. Dictated by: Gregg Vásquez M.D. on 07/29/2025 at 12:27 Approved by: Gregg Vásquez M.D. on 07/29/2025 at 12:28
--- NOTE | 2025-07-29 13:58 | ED_ITS ---
HPI - Headache General Chief Complaint: Headache Stated Complaint: RA pain, migraine Time Seen by Provider: 07/29/25 13:01 History of Present Illness HPI Narrative: 79-year-old gentleman with past medical history of chronic pain from multiple sources rheumatoid arthritis, GERD, COPD, hypertension, bullous pemphigoid, presents with headache that started yesterday for which he states lights and sound does bother him and he was nauseous earlier. He denies any fever chills backache neck pain vision loss difficulty swallowing speaking gait instability but does report muscle cramps throughout his whole body. He denies active chest pain shortness breath sore throat diarrhea constipation trauma. Nothing makes it better or worse. Other than what is stated 14 point review of system is negative. Related Data Home Medications ?Medication ?Instructions ?Recorded ?Confirmed Disabled Parking Permit 1 % .Route SEEINSTR 11/08/20 06/26/25 amlodipine 5 mg tablet 5 mg PO DAILY 11/08/2207/16 hydromorphone 2 mg tablet 2 mg PO Q3-4H PRN 07/16/25 1 methocarbamol 500 mg tablet 500 mg PO 3XD PRN muscle s pasm 07/16/25 07/16/25 Previous Rx's ?Medication ?Instructions ?Recorded valacyclovir 1 gram tablet 1,000 mg PO TID #30 tabs fluoxetine 10 mg capsule See Rx Instructions .Route 0 04/20/24 .COMPLEX #90 caps fluoxetine 20 mg capsule 20 mg PO DAILY #90 caps 07/06/06 naloxone 4 mg/actuation nasal 1 spray intranasal Q2M # 2 ea 08/05/24 spray (Narcan) metoprolol succinate 100 mg 100 mg PO DAILY #90 tabs 0 10/15/24 tablet,extended release 24 hr omeprazole 40 mg capsule,delayed 40 mg PO DAILY #90 ca ps 11/03/24 release triamcinolone acetonide 0.5 % 1 applic topical BID #15 grams 12/04/24 topical cream lidocaine 5 % topical patch 1 patch topical DAILY #15 ea 04/23/25 aspirin 81 mg tablet,delayed 81 mg PO BID #90 tabs 01/05 release hydrocodone 5 mg-acetaminophen 325 1 tab PO Q4-6H PRN pain #20 tabs 06/26/25 mg tablet oxycodone 5 mg tablet 5 mg PO Q6H PRN pain #20 tab s 06/29/25 naloxone 4 mg/actuation nasal spray 4 mg intranasal Q3 M PRN opioid 07/04/25 overdose #2 ea oxycodone 10 mg tablet 10 mg PO Q6H PRN pain #10 ta bs 07/04/25 ketorolac 10 mg tablet 10 mg PO Q8H PRN pain #10 ta bs 07/08/25 tramadol 50 mg tablet 50 mg PO Q8H PRN pain #10 ta bs 07/08/25 meloxicam 7.5 mg tablet 7.5 mg PO BID PRN pain #10 t abs 07/16/25 lidocaine 5 % topical patch 1 patch topical DAILY PRN pain #30 07/20/25 (Lidoderm) ea meloxicam 7.5 mg tablet 7.5 mg PO DAILY #10 tabs 05/07 butalbital 50 mg-acetaminophen 300 1 cap PO Q4H PRN pa in #20 caps 07/29/25 mg-caffeine 40 mg-codeine 30 mg cap (Fioricet with Codeine) butalbital 50 mg-acetaminophen 300 1 cap PO Q4H PRN pa in #20 caps 07/29/25 mg-caffeine 40 mg-codeine 30 mg cap (Fioricet with Codeine) Allergies Allergy/AdvReac Type Severity Reaction Status Date / Time cyclobenzaprine (From Allergy Severe Dizziness, Verified 07/20/25 14:46 Flexeril) I bounce off ag ibuprofen AdvReac Intermediate Redness of Verified 07/20/25 14:46 Skin acetaminophen (ACETAMINOPHEN) AdvReac Unknown Can't take Verified 07/20/25 14:46 r/t Hep C; upset stomach Review of Systems Review of Systems ROS Unobtainable: All systems reviewed & are unremarkable except as noted in HPI and below Patient History Medical History Encounter for pre-operative cardiovascular clearance Bullous pemphigoid Primary osteoarthritis of left knee Moderate substance use disorder Dermatitis Folliculitis Thrush GERD (gastroesophageal reflux disease) Hyponatremia Bronchitis Impaired cognition Left knee pain Chronic diarrhea Eustachian tube dysfunction Seasonal allergic rhinitis Dyspepsia Anemia Tinea Abdominal wall pain in both lower quadrants Constipation Aftercare following left shoulder joint replacement surgery Preoperative clearance Left lateral epicondylitis Adhesive capsulitis Right wrist sprain Oral lesion Colles' fracture Right wrist pain Left shoulder strain Anxiety Fibromyalgia Sinus drainage Chronic ankle pain, bilateral Rheumatoid arthritis Acute exacerbation of chronic bronchitis Foraminal stenosis of lumbar region Peripheral neuropathy Pneumonia (~2018) Impotence (Unknown) Restless leg syndrome (Unknown) Arthritis (Unknown) Chronic pain syndrome (Unknown) Kidney stones (Unknown) Prostate cancer (Unknown) Skin cancer (Unknown) Hepatitis C (Unknown) Hypertension (Unknown) Migraines (Unknown) PTSD (post-traumatic stress disorder) (Unknown) Depression (Unknown) Surgical History 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 Social History marital status: household members: spouse lives independently: Yes occupational status: previously employed Tobacco: How many years used: 20 quit status: has quit before alcohol intake: former substance use type: former substance user and marijuana tobacco type: cigarettes alcohol intake frequency: holidays/special occasions only Exam Narrative Exam Narrative: GENERAL: [79] year old patient appears stated age. Well-developed patient, in mild distress. HEAD: Atraumatic. Normocephalic. EYES: Pupils equal round and reactive. Extraocular motions intact. No scleral icterus. No injection or drainage. ENT: Nose without bleeding, purulent drainage. Throat without erythema, tonsillar hypertrophy or exudate. Airway patent. NECK: Trachea midline. Non tender CARDIOVASCULAR: Regular rate and rhythm without murmurs, gallops, or rubs. RESPIRATORY: Clear to auscultation. Breath sounds equal bilaterally. No wheezes, rales, or rhonchi. GASTROINTESTINAL: Abdomen soft, non-tender, nondistended. EXTREMITIES: No edema or joint tenderness. BACK: Nontender without deformity or crepitance. No flank tenderness. NEURO: AOx3. SKIN: No rash or erythema of visible areas Initial Vital Signs Initial Vital Signs: Vital Signs Temperature 98.8 F 07/29/25 12:54 Pulse Rate 110 H 07/29/25 12:54 Respiratory Rate 16 07/29/25 12:54 Blood Pressure 124/95 H 07/29/25 12:54 Pulse Oximetry 100 07/29/25 12:54 Oxygen Delivery Method Room Air 07/29/25 12:54 Course Orders Ordered: ED Orders 07/29/25 12:59 CT head/brain wo con Stat Lactated Ringer's (Lactated Ringers) 1,000 mls @ 1,000 mls/hr IV BOLUS ONE Stop: 07/29/25 14:02 Vital Signs Vital signs: Vital Signs - 8 hr 07/29/25 12:54 Temperature 98.8 F Pulse Rate 110 H Respiratory Rate 16 Blood Pressure 124/95 H Pulse Oximetry 100 Oxygen Delivery Method Room Air MDM - Headache Imaging Data CT scan - head: Radiologist's Impression: CT Scan Report Signed Patient: Barrett Tam MR#: [id number] : 1945 Acct:[id number] Age/Sex: 79 / M Date of Service: 07/29/25 Loc: ED Accession Number: [id number] Procedure: CT head/brain wo con Ordering Provider: Chano Pichardo D.O. PROCEDURE: CT HEAD/BRAIN WO CON INDICATIONS: worst headache of life sudden onset TECHNIQUE: Noncontrast 4.5 mm thick angled axial sections acquired from the foramen magnum to the vertex, with coronal and sagittal reformats. For radiation dose reduction, the following was used: automated exposure control, adjustment of mA and/or kV according to patient size. COMPARISON: [facility], CT, CT HEAD/BRAIN WO CON, 06/04/2025, 19:01. FINDINGS: Image quality: Streak artifact can be seen through the skull base. CSF spaces: Basal cisterns are patent. No extra-axial fluid collections. The ventricles are symmetric in size and shape. Brain: No intracranial bleeds or mass effect. There is cerebral volume loss, with resultant ventricular and sulcal prominence. There are periventricular and deep white matter chronic small vessel ischemic changes. There is intracranial internal carotid artery atherosclerosis. Skull and face: Calvarium and visualized facial bones appear intact, without suspicious lesions. Sinuses: Visualized sinuses and mastoids are clear. IMPRESSION: No acute intracranial hemorrhage is seen. No acute intracranial pathology. To the limits of this noncontrast study, no findings of intracranial masses or mass effect can be seen. MDM Narrative Medical decision making narrative: All lab work, vital signs, nurse triage note, medication list, previous ER visits, and all imaging studies reviewed. CT head showed no acute intracranial hemorrhage or acute intracranial pathology. Differential diagnosis transformed migraine, headache, subarachnoid hemorrhage, viral, dehydration. Patient given fluids Toradol dexamethasone droperidol Fioricet. Discharge Plan Departure Patient Disposition: Home Clinical Impression: Migraine Qualifiers: Migraine type: migraine (< 15 days per month) without aura Status migrainosus presence: with status migrainosus Intractability: intractable Qualified Code(s): G43.011 - Migraine without aura, intractable, with status migrainosus Instructions: DI for Migraine Activity Restrictions/Additional Instructions: Return with new or worsening symptoms. Take your medicine as directed. Keep hydrated. Follow up and get established with new PCP. Prescriptions: New eeszanowyj-sdnqjvubfm-pbf-cod [Fioricet with Codeine] [id number] mg capsule 1 cap PO Q4H PRN (Reason: pain) Qty: 20 0RF ltxykprffu-zorzalneml-vue-cod [Fioricet with Codeine] 73-477-88-30 mg capsule 1 cap PO Q4H PRN (Reason: pain) Qty: 20 0RF No Action methocarbamol 500 mg tablet 500 mg PO 3XD PRN (Reason: muscle spasm) hydromorphone 2 mg tablet 2 mg PO Q3-4H PRN fluoxetine 20 mg capsule 20 mg PO DAILY Qty: 90 3RF Rx Instructions: Take with 10 mg to complete 30 mg dose fluoxetine 10 mg capsule See Rx Instructions .ROUTE .COMPLEX Qty: 90 3RF Dose Instruction: take 1 capsule by mouth once daily WITH 20MG CAP DAILY TOTAL 30 MG DAILY Rx Instructions: take 1 capsule by mouth once daily WITH 20MG CAP DAILY TOTAL 30 MG DAILY metoprolol succinate 100 mg tablet extended release 24 hr 100 mg PO DAILY Qty: 90 3RF lidocaine 5 % adhesive patch,medicated 1 patch topical DAILY Qty: 15 2RF Rx Instructions: leave on most painful area for up to 12 hrs omeprazole 40 mg capsule,delayed release(DR/EC) 40 mg PO DAILY Qty: 90 3RF Rx Instructions: take 1 capsule by mouth once daily triamcinolone acetonide 0.5 % cream 1 applic topical BID Qty: 15 1RF Rx Instructions: Applied to affected areas valacyclovir 1 gram tablet 1,000 mg PO TID Qty: 30 0RF naloxone [Narcan] 4 mg/actuation spray,non-aerosol 1 spray intranasal Q2M Qty: 2 0RF Rx Instructions: spray 1 dose into ONE nostril; alternate nostrils w each dose until help arrives aspirin 81 mg Tablet,Delayed Release (Dr/Ec) 81 mg PO BID Qty: 90 0RF hydrocodone-acetaminophen 5-325 mg tablet 1 tab PO Q4-6H PRN (Reason: pain) Qty: 20 0RF oxycodone 5 mg tablet 5 mg PO Q6H PRN (Reason: pain) Qty: 20 0RF oxycodone 10 mg tablet 10 mg PO Q6H PRN (Reason: pain) Qty: 10 0RF naloxone 4 mg/actuation spray,non-aerosol 4 mg intranasal Q3M PRN (Reason: opioid overdose) Qty: 2 0RF Rx Instructions: spray 1 dose into ONE nostril; alternate nostrils w each dose until help arrives tramadol 50 mg tablet 50 mg PO Q8H PRN (Reason: pain) Qty: 10 0RF ketorolac 10 mg tablet 10 mg PO Q8H PRN (Reason: pain) Qty: 10 0RF Rx Instructions: maximum total duration of 5 days from all oral, intranasal, or parenteral formulations meloxicam 7.5 mg tablet 7.5 mg PO BID PRN (Reason: pain) Qty: 10 0RF Disabled Parking Permit 1 1 % .Route SEEINSTR Rx Instructions: .RouteValid for 5 years amlodipine 5 mg tablet 5 mg PO DAILY Patient Comments: pt received dose in hospital 11/10/19 early AM admit to lidocaine [Lidoderm] 5 % adhesive patch,medicated 1 patch topical DAILY PRN (Reason: pain) Qty: 30 0RF Rx Instructions: leave on most painful area for up to 12 hrs meloxicam 7.5 mg tablet 7.5 mg PO DAILY Qty: 10 0RF Referrals: Miscellaneous,Doctor, MD [Primary Care Provider, Medical] Stand Alone Forms: Patient Portal/API
[2025-07-29] MEDS: droPERidol 2.5 MG/ML VIAL IV (14:10)
[2025-07-29] MEDS: KETOROLAC 30 MG/ML VIAL 15 MG IV ×2 (14:12→15:46)
[2025-07-29] MEDS: LACTATED RINGERS 1,000 ML 1000 ML IV (14:14)
[2025-07-29] MEDS: diphenhydrAMINE 50 MG/ML VIAL IV (14:15)
[2025-07-29] MEDS: BUTALB/APAP/CAFFEINE 50/325/40 TABLET 1 EACH PO (16:14)
== END 2025-07-29 16:43 | disposition home or self-care (01) ==
PROVIDERS: Emergency Provider Family Medicine
DX: G43.011 Migraine without aura, intractable, with status migrainosus (principal)
CPT/HCPCS: 36415; 70450; 96361; 96374; 96375; 96376; 99284; J1100; J1200; J1790; J1885; J7120

== ENCOUNTER 2025-08-02 13:23 | Emergency (ER) | payer MEDICARE, OTHER, SELFPAY ==
[2025-06-15 15:10] VITALS: BMI 29.2
[2025-08-02 13:42] VITALS: BP 193/95; PULSE 70; RESP 18; TEMP 36.8; O2SAT 99; BMI 32.1
--- NOTE | 2025-08-02 15:33 | DI.RAD.S_ITS ---
PROCEDURE: XR KNEE LT 3V INDICATIONS: knee pain TECHNIQUE: 3 views of the knee were acquired. COMPARISON: [facility], KRUNAL, XR KNEE LT 3V, 07/19/2025, 17:28. [facility], KRUNAL, XR KNEE LT 3V, 07/16/2025, 16:45. FINDINGS: Bones: No fractures or dislocations. No suspicious bony lesions. Changes of left total knee arthroplasty. Soft tissues: No joint effusion. No suspicious soft tissue calcifications. IMPRESSION: Changes left total knee arthroplasty without acute hardware complication. No acute osseous abnormality. Dictated by: Chris Syed M.D. on 08/02/2025 at 16:08 Approved by: Chris Syed M.D. on 08/02/2025 at 16:09
[2025-08-02] MEDS: KETOROLAC 30 MG/ML VIAL IM (15:45)
--- NOTE | 2025-08-02 15:57 | ED_ITS ---
HPI - Fall <Steve Gloria PA-C - Last Filed: 08/02/25 17:01> General Chief Complaint: Fall Stated Complaint: Left knee pain Time Seen by Provider: 08/02/25 15:03 Source: patient Mode of arrival: Ambulatory History of Present Illness HPI Narrative: 79-year-old male with past medical history rheumatoid arthritis, chronic pain, GERD, COPD, hypertension, bullous pemphigoid presents to the ED status post GLF, causing left knee pain. No numbness, tingling, weakness. Patient is status post a total knee arthroplasty of the left knee on 06/15/[address] Rajan and has been healing well. Patient has an appointment with a painting trades worker on August 17. Patient was dismissed by his PCP Dr. Snell breaking his pain management contract. Patient has also been evaluated in the ED several times for the knee pain and has been counseled that he does not require anymore opioid medications for the knee, given that it has healed well. Patient was in agreement with this. Related Data Home Medications ?Medication ?Instructions ?Recorded ?Confirmed Disabled Parking Permit 1 % .Route SEEINSTR 11/08/20 06/26/25 amlodipine 5 mg tablet 5 mg PO DAILY 11/08/2207/16 hydromorphone 2 mg tablet 2 mg PO Q3-4H PRN 07/16/25 1 methocarbamol 500 mg tablet 500 mg PO 3XD PRN muscle s pasm 07/16/25 07/16/25 Previous Rx's ?Medication ?Instructions ?Recorded valacyclovir 1 gram tablet 1,000 mg PO TID #30 tabs fluoxetine 10 mg capsule See Rx Instructions .Route 0 04/20/24 .COMPLEX #90 caps fluoxetine 20 mg capsule 20 mg PO DAILY #90 caps 06/06 naloxone 4 mg/actuation nasal 1 spray intranasal Q2M # 2 ea 08/05/24 spray (Narcan) metoprolol succinate 100 mg 100 mg PO DAILY #90 tabs 0 10/15/24 tablet,extended release 24 hr omeprazole 40 mg capsule,delayed 40 mg PO DAILY #90 ca ps 11/03/24 release triamcinolone acetonide 0.5 % 1 applic topical BID #15 grams 12/04/24 topical cream lidocaine 5 % topical patch 1 patch topical DAILY #15 ea 04/23/25 aspirin 81 mg tablet,delayed 81 mg PO BID #90 tabs 01/05 release hydrocodone 5 mg-acetaminophen 325 1 tab PO Q4-6H PRN pain #20 tabs 06/26/25 mg tablet oxycodone 5 mg tablet 5 mg PO Q6H PRN pain #20 tab s 06/29/25 naloxone 4 mg/actuation nasal spray 4 mg intranasal Q3 M PRN opioid 07/04/25 overdose #2 ea oxycodone 10 mg tablet 10 mg PO Q6H PRN pain #10 ta bs 07/04/25 ketorolac 10 mg tablet 10 mg PO Q8H PRN pain #10 ta bs 07/08/25 tramadol 50 mg tablet 50 mg PO Q8H PRN pain #10 ta bs 07/08/25 meloxicam 7.5 mg tablet 7.5 mg PO BID PRN pain #10 t abs 07/16/25 lidocaine 5 % topical patch 1 patch topical DAILY PRN pain #30 07/20/25 (Lidoderm) ea meloxicam 7.5 mg tablet 7.5 mg PO DAILY #10 tabs 05/07 butalbital 50 mg-acetaminophen 300 1 cap PO Q4H PRN pa in #20 caps 07/29/25 mg-caffeine 40 mg-codeine 30 mg cap (Fioricet with Codeine) butalbital 50 mg-acetaminophen 300 1 cap PO Q4H PRN pa in #20 caps 07/29/25 mg-caffeine 40 mg-codeine 30 mg cap (Fioricet with Codeine) butalbital 50 mg-acetaminophen 300 1 cap PO Q4H PRN pa in #20 caps 07/29/25 mg-caffeine 40 mg-codeine 30 mg cap (Fioricet with Codeine) Allergies Allergy/AdvReac Type Severity Reaction Status Date / Time cyclobenzaprine (From Allergy Severe Dizziness, Verified 07/20/25 14:46 Flexeril) I bounce off ag ibuprofen AdvReac Intermediate Redness of Verified 07/20/25 14:46 Skin acetaminophen (ACETAMINOPHEN) AdvReac Unknown Can't take Verified 07/20/25 14:46 r/t Hep C; upset stomach Review of Systems <Steve Gloria PA-C - Last Filed: 08/02/25 17:01> Constitutional Constitutional: Denies chills, Denies fatigue, Denies fever(s), Denies frequent falls, Denies lethargy and Denies weakness Eyes Eyes: Denies change in vision, Denies eye discharge, Denies irritation and Denies loss of vision ENT Ears, Nose, Mouth, and Throat: Denies change in voice, Denies dizziness, Denies neck pain, Denies sore throat and Denies throat swelling Cardiovascular Cardiovascular: Denies chest pain, Denies irregular heart rhythm, Denies lightheadedness, Denies palpitations, Denies dyspnea, Denies dyspnea on exertion and Denies orthopnea Respiratory Respiratory: Denies cough, Denies dyspnea, Denies dyspnea on exertion and Denies wheezing Gastrointestinal Gastrointestinal: Denies abdominal pain, Denies change in bowel habits, Denies diarrhea, Denies nausea and Denies vomiting Musculoskeletal Musculoskeletal: Denies neck pain and Denies numbness Comments: Right knee pain Integumentary/Breasts Skin/Breast: Denies pruritus, Denies erythema, Denies rash and Denies wounds Neurologic Neurologic: Denies behavioral changes, Denies confusion, Denies dizziness, Denies frequent falls, Denies loss of vision, Denies numbness and Denies weakness Psychiatric Psychiatric: Denies anxiety, Denies behavioral changes, Denies confusion, Denies depression, Denies homicidal ideation and Denies suicidal ideation Endocrine Endocrine: Denies fatigue, Denies flushing and Denies palpitations Hematologic/Lymphatic Hematologic/Lymphatic: Denies easy bruising Allergic/Immunologic Allergic/Immunologic: Denies urticaria, Denies throat swelling and Denies wheezing Patient History <Steve Gloria PA-C - Last Filed: 08/02/25 17:01> Medical History Encounter for pre-operative cardiovascular clearance Bullous pemphigoid Primary osteoarthritis of left knee Moderate substance use disorder Dermatitis Folliculitis Thrush GERD (gastroesophageal reflux disease) Hyponatremia Bronchitis Impaired cognition Left knee pain Chronic diarrhea Eustachian tube dysfunction Seasonal allergic rhinitis Dyspepsia Anemia Tinea Abdominal wall pain in both lower quadrants Constipation Aftercare following left shoulder joint replacement surgery Preoperative clearance Left lateral epicondylitis Adhesive capsulitis Right wrist sprain Oral lesion Colles' fracture Right wrist pain Left shoulder strain Anxiety Fibromyalgia Sinus drainage Chronic ankle pain, bilateral Rheumatoid arthritis Acute exacerbation of chronic bronchitis Foraminal stenosis of lumbar region Peripheral neuropathy Pneumonia (~2018) Impotence (Unknown) Restless leg syndrome (Unknown) Arthritis (Unknown) Chronic pain syndrome (Unknown) Kidney stones (Unknown) Prostate cancer (Unknown) Skin cancer (Unknown) Hepatitis C (Unknown) Hypertension (Unknown) Migraines (Unknown) PTSD (post-traumatic stress disorder) (Unknown) Depression (Unknown) Surgical History 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 Social History marital status: household members: spouse lives independently: Yes occupational status: previously employed Tobacco: How many years used: 20 quit status: has quit before alcohol intake: former substance use type: former substance user and marijuana tobacco type: cigarettes alcohol intake frequency: holidays/special occasions only Exam <Steve Gloria PA-C - Last Filed: 08/02/25 17:01> Narrative Exam Narrative: Const General:?cooperative, healthy appearing and comfortable [facility] Head:?normal to inspection Ears:?hearing grossly normal bilaterally Nose:?external nose normal Face and sinus:?normal facial exam and sinuses nontender Mouth:?oral mucosae normal Throat:?posterior oropharynx normal Eyes General:?appearance normal, both eyes and all related structures Neck Neck:?normal visual inspection and no lymphadenopathy noted Resp Effort & Inspection:?normal respiratory effort Auscultation:?clear to auscultation bilaterally Cardio Rate:?regular rate Rhythm:?regular rhythm Musculoskeletal There is some tenderness to palpation of the left knee. No deformities, swelling, bruising noted on exam. There is full range of motion. Strength and sensation is intact. Neurovascularly intact. Neuro General:?patient alert, patient awake and patient oriented x3 Initial Vital Signs Initial Vital Signs: Vital Signs Temperature 98.3 F 08/02/25 13:42 Pulse Rate 70 08/02/25 13:42 Respiratory Rate 18 08/02/25 13:42 Blood Pressure 193/95 H 08/02/25 13:42 Pulse Oximetry 99 08/02/25 13:42 Oxygen Delivery Method Room Air 08/02/25 13:42 <Mirtha Jameson MD - Last Filed: 08/02/25 23:30> Initial Vital Signs Initial Vital Signs: Vital Signs Temperature 98.3 F 08/02/25 13:42 Pulse Rate 70 08/02/25 13:42 Respiratory Rate 18 08/02/25 13:42 Blood Pressure 193/95 H 08/02/25 13:42 Pulse Oximetry 99 08/02/25 13:42 Oxygen Delivery Method Room Air 08/02/25 13:42 Course <Steve Gloria PA-C - Last Filed: 08/02/25 17:01> Orders Ordered: ED Orders 08/02/25 15:33 XR knee LT 3V Stat Discontinued Medications Ketorolac Tromethamine (Ketorolac 30 Mg/Ml Vial) 30 mg IM NOW ONE Stop: 08/02/25 15:35 Last Admin: 08/02/25 15:45 Dose: 30 mg Documented By: MIKE Vital Signs Vital signs: Vital Signs - 8 hr 08/02/25 16:48 Pulse Rate 66 Respiratory Rate 16 Blood Pressure 185/94 H Pulse Oximetry 98 Oxygen Delivery Method Room Air <Mirtha Jameson MD - Last Filed: 08/02/25 23:30> Orders Ordered: ED Orders 08/02/25 15:33 XR knee LT 3V Stat Discontinued Medications Ketorolac Tromethamine (Ketorolac 30 Mg/Ml Vial) 30 mg IM NOW ONE Stop: 08/02/25 15:35 Last Admin: 08/02/25 15:45 Dose: 30 mg Documented By: MIKE Vital Signs Vital signs: Vital Signs - 8 hr 08/02/25 16:48 Pulse Rate 66 Respiratory Rate 16 Blood Pressure 185/94 H Pulse Oximetry 98 Oxygen Delivery Method Room Air MDM - Fall <Steve Gloria PA-C - Last Filed: 08/02/25 17:01> MDM Narrative Medical decision making narrative: 79-year-old male with past medical history rheumatoid arthritis, chronic pain, GERD, COPD, hypertension, bullous pemphigoid presents to the ED status post GLF, causing left knee pain. Concern for fracture/dislocation versus musculoskeletal sprain/strain versus other. X-ray was obtained which shows no acute findings. Patient was given a dose of Toradol in the ED today. Recommend follow-up with his painting trades worker as scheduled. ED return precautions discussed with patient. Patient verbalized understanding. Medical records reviewed: Yes Discharge Plan Departure Patient Disposition: Home Clinical Impression: Knee pain Qualifiers: Chronicity: unspecified Laterality: left Qualified Code(s): M25.562 - Pain in left knee Instructions: How to Prevent Falls Activity Restrictions/Additional Instructions: You were evaluated in the ED today for left knee pain due to a fall. Your x-ray was normal. You were given a dose of Toradol in the ED for pain. Please follow-up with your painting trades worker for further evaluation. Return to the ED if you have worsening symptoms, chest pain, shortness of breath. Prescriptions: No Action methocarbamol 500 mg tablet 500 mg PO 3XD PRN (Reason: muscle spasm) hydromorphone 2 mg tablet 2 mg PO Q3-4H PRN fluoxetine 20 mg capsule 20 mg PO DAILY Qty: 90 3RF Rx Instructions: Take with 10 mg to complete 30 mg dose fluoxetine 10 mg capsule See Rx Instructions .ROUTE .COMPLEX Qty: 90 3RF Dose Instruction: take 1 capsule by mouth once daily WITH 20MG CAP DAILY TOTAL 30 MG DAILY Rx Instructions: take 1 capsule by mouth once daily WITH 20MG CAP DAILY TOTAL 30 MG DAILY metoprolol succinate 100 mg tablet extended release 24 hr 100 mg PO DAILY Qty: 90 3RF lidocaine 5 % adhesive patch,medicated 1 patch topical DAILY Qty: 15 2RF Rx Instructions: leave on most painful area for up to 12 hrs omeprazole 40 mg capsule,delayed release(DR/EC) 40 mg PO DAILY Qty: 90 3RF Rx Instructions: take 1 capsule by mouth once daily triamcinolone acetonide 0.5 % cream 1 applic topical BID Qty: 15 1RF Rx Instructions: Applied to affected areas valacyclovir 1 gram tablet 1,000 mg PO TID Qty: 30 0RF naloxone [Narcan] 4 mg/actuation spray,non-aerosol 1 spray intranasal Q2M Qty: 2 0RF Rx Instructions: spray 1 dose into ONE nostril; alternate nostrils w each dose until help arrives aspirin 81 mg Tablet,Delayed Release (Dr/Ec) 81 mg PO BID Qty: 90 0RF hydrocodone-acetaminophen 5-325 mg tablet 1 tab PO Q4-6H PRN (Reason: pain) Qty: 20 0RF oxycodone 5 mg tablet 5 mg PO Q6H PRN (Reason: pain) Qty: 20 0RF oxycodone 10 mg tablet 10 mg PO Q6H PRN (Reason: pain) Qty: 10 0RF naloxone 4 mg/actuation spray,non-aerosol 4 mg intranasal Q3M PRN (Reason: opioid overdose) Qty: 2 0RF Rx Instructions: spray 1 dose into ONE nostril; alternate nostrils w each dose until help arrives tramadol 50 mg tablet 50 mg PO Q8H PRN (Reason: pain) Qty: 10 0RF ketorolac 10 mg tablet 10 mg PO Q8H PRN (Reason: pain) Qty: 10 0RF Rx Instructions: maximum total duration of 5 days from all oral, intranasal, or parenteral formulations meloxicam 7.5 mg tablet 7.5 mg PO BID PRN (Reason: pain) Qty: 10 0RF [id number]-csetjbqweq-[id number] [Fioricet with Codeine] 41-247-66-30 mg capsule 1 cap PO Q4H PRN (Reason: pain) Qty: 20 0RF [id number]-fvhpwtrwih-rpc-cod [Fioricet with Codeine] 20-345-82-30 mg capsule 1 cap PO Q4H PRN (Reason: pain) Qty: 20 0RF sqymvbjkmy-uxtbrrevno-bxe-cod [Fioricet with Codeine] [id number] mg capsule 1 cap PO Q4H PRN (Reason: pain) Qty: 20 0RF Disabled Parking Permit 1 1 % .Route SEEINSTR Rx Instructions: .RouteValid for 5 years amlodipine 5 mg tablet 5 mg PO DAILY Patient Comments: pt received dose in hospital 11/10/19 early AM admit to lidocaine [Lidoderm] 5 % adhesive patch,medicated 1 patch topical DAILY PRN (Reason: pain) Qty: 30 0RF Rx Instructions: leave on most painful area for up to 12 hrs meloxicam 7.5 mg tablet 7.5 mg PO DAILY Qty: 10 0RF Referrals: Miscellaneous,Doctor, [Primary Care Provider, Medical] Stand Alone Forms: Patient Portal/API ED Sign-out <Mirtha Jameson MD - Last Filed: 08/02/25 23:30> Cosign ED Attending Cosignature Attestation: I was immediately available in the department for consultation throughout this patient's visit. Mirtha Jameson MD
[2025-08-02 16:48] VITALS: BP 185/94; PULSE 66; RESP 16; O2SAT 98
--- NOTE | 2025-08-02 16:53 | PC.NURSE ---
During discharge patient stated so you're just kicking me out?. Educated patient that he had been evaluated and treated by provider and appropriate for discharge.
== END 2025-08-02 16:53 | disposition home or self-care (01) ==
PROVIDERS: Emergency Provider Student in an Organized Health Care Education/Training Program
DX: M25.562 Pain in left knee (principal); W18.30XA Fall on same level, unspecified, initial encounter
CPT/HCPCS: 73562; 96372; 99283; J1885

== ENCOUNTER 2025-08-05 13:30 | Emergency (ER) | payer MEDICARE, OTHER, SELFPAY ==
[2025-06-15 15:10] VITALS: BMI 29.2
[2025-08-05 13:40] VITALS: BP 154/75; PULSE 74; RESP 13; TEMP 36.7; O2SAT 95; BMI 29.7
--- NOTE | 2025-08-05 14:27 | ED.FALL ---
HPI - Fall <Joy Valdez PA-C - Last Filed: 08/05/25 18:00> General Chief Complaint: Fall Stated Complaint: pain, lt knee injury x1 wk ago, fall Time Seen by Provider: 08/05/25 14:07 Source: patient Mode of arrival: Wheelchair History of Present Illness HPI Narrative: Mr. Tam is a pleasant 79-year-old male with a past medical history of rheumatoid arthritis, chronic pain, GERD, COPD, hypertension, bullous pemphigoid, total left knee arthroplasty 06/15/[address] Rajan who presents to the emergency department for a ground level fall causing left elbow, left shoulder, left ribs, left knee pain. This happened 15 minutes prior to arrival and the patient drove himself to the ED. Patient states he was walking when his left knee gave out on him causing him to fall onto his left side. He denies hitting his head or any blood thinner use. Patient is ambulatory, has no open wounds, no bruising. Reports that he is currently hurting on the left shoulder the left elbow the left ribcage in the left knee however the worst of his pain is his left knee. He denies taking any medications prior to arrival. He does come to the ER frequently for pain, he was dismissed from his PCP due to breaking the pain management contract, states that he does have an appointment next week with a new pain management doctor however. Related Data Home Medications ?Medication ?Instructions ?Recorded ?Confirmed Disabled Parking Permit 1 % .Route SEEINSTR 11/08/20 06/26/25 amlodipine 5 mg tablet 5 mg PO DAILY 11/08/22 07/16/25 hydromorphone 2 mg tablet 2 mg PO Q3-4H PRN 07/16/25 07/16/25 methocarbamol 500 mg tablet 500 mg PO 3XD PRN muscle spasm 07/16/25 07/16/25 Previous Rx's ?Medication ?Instructions ?Recorded valacyclovir 1 gram tablet 1,000 mg PO TID #30 tabs 09/02/23 fluoxetine 10 mg capsule See Rx Instructions .Route 04/20/24 .COMPLEX #90 caps fluoxetine 20 mg capsule 20 mg PO DAILY #90 caps 04/20/24 naloxone 4 mg/actuation nasal 1 spray intranasal Q2M #2 ea 08/05/24 spray (Narcan) metoprolol succinate 100 mg 100 mg PO DAILY #90 tabs 10/15/24 tablet,extended release 24 hr omeprazole 40 mg capsule,delayed 40 mg PO DAILY #90 caps 11/03/24 release triamcinolone acetonide 0.5 % 1 applic topical BID #15 grams 12/04/24 topical cream lidocaine 5 % topical patch 1 patch topical DAILY #15 ea 04/23/25 aspirin 81 mg tablet,delayed 81 mg PO BID #90 tabs 06/16/25 release hydrocodone 5 mg-acetaminophen 325 1 tab PO Q4-6H PRN pain #20 tabs 06/26/25 mg tablet oxycodone 5 mg tablet 5 mg PO Q6H PRN pain #20 tabs 06/29/25 naloxone 4 mg/actuation nasal spray 4 mg intranasal Q3M PRN opioid 07/04/25 overdose #2 ea oxycodone 10 mg tablet 10 mg PO Q6H PRN pain #10 tabs 07/04/25 ketorolac 10 mg tablet 10 mg PO Q8H PRN pain #10 tabs 07/08/25 tramadol 50 mg tablet 50 mg PO Q8H PRN pain #10 tabs 07/08/25 meloxicam 7.5 mg tablet 7.5 mg PO BID PRN pain #10 tabs 07/16/25 lidocaine 5 % topical patch 1 patch topical DAILY PRN pain #30 07/20/25 (Lidoderm) ea meloxicam 7.5 mg tablet 7.5 mg PO DAILY #10 tabs 07/20/25 butalbital 50 mg-acetaminophen 300 1 cap PO Q4H PRN pain #20 caps 07/29/25 mg-caffeine 40 mg-codeine 30 mg cap (Fioricet with Codeine) butalbital 50 mg-acetaminophen 300 1 cap PO Q4H PRN pain #20 caps 07/29/25 mg-caffeine 40 mg-codeine 30 mg cap (Fioricet with Codeine) butalbital 50 mg-acetaminophen 300 1 cap PO Q4H PRN pain #20 caps 07/29/25 mg-caffeine 40 mg-codeine 30 mg cap (Fioricet with Codeine) lidocaine 5 % topical patch 1 patch topical DAILY #30 ea 08/05/25 (Lidoderm) meloxicam 7.5 mg tablet 7.5 mg PO DAILY #10 tabs 08/05/25 Allergies Allergy/AdvReac Type Severity Reaction Status Date / Time cyclobenzaprine (From Allergy Severe Dizziness, Verified 08/05/25 13:50 Flexeril) I bounce off ag ibuprofen AdvReac Intermediate Redness of Verified 08/05/25 13:50 Skin acetaminophen (ACETAMINOPHEN) AdvReac Unknown Can't take Verified 08/05/25 13:50 r/t Hep C; upset stomach Review of Systems <Joy Valdez PA-C - Last Filed: 08/05/25 18:00> Review of Systems ROS Unobtainable: All systems reviewed & are unremarkable except as noted in HPI and below Patient History <Joy Valdez PA-C - Last Filed: 08/05/25 18:00> Medical History Encounter for pre-operative cardiovascular clearance Bullous pemphigoid Primary osteoarthritis of left knee Moderate substance use disorder Dermatitis Folliculitis Thrush GERD (gastroesophageal reflux disease) Hyponatremia Bronchitis Impaired cognition Left knee pain Chronic diarrhea Eustachian tube dysfunction Seasonal allergic rhinitis Dyspepsia Anemia Tinea Abdominal wall pain in both lower quadrants Constipation Aftercare following left shoulder joint replacement surgery Preoperative clearance Left lateral epicondylitis Adhesive capsulitis Right wrist sprain Oral lesion Colles' fracture Right wrist pain Left shoulder strain Anxiety Fibromyalgia Sinus drainage Chronic ankle pain, bilateral Rheumatoid arthritis Acute exacerbation of chronic bronchitis Foraminal stenosis of lumbar region Peripheral neuropathy Pneumonia (~2018) Impotence (Unknown) Restless leg syndrome (Unknown) Arthritis (Unknown) Chronic pain syndrome (Unknown) Kidney stones (Unknown) Prostate cancer (Unknown) Skin cancer (Unknown) Hepatitis C (Unknown) Hypertension (Unknown) Migraines (Unknown) PTSD (post-traumatic stress disorder) (Unknown) Depression (Unknown) Surgical History 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 Social History marital status: household members: spouse lives independently: Yes occupational status: previously employed Smoking Status: Unknown if ever smoked Tobacco: How many years used: 20 quit status: has quit before alcohol intake: former substance use type: former substance user and marijuana Smoking Status: Unknown if ever smoked tobacco type: cigarettes alcohol intake frequency: holidays/special occasions only Exam <Joy Valdez PA-C - Last Filed: 08/05/25 18:00> Narrative Exam Narrative: GENERAL: 79 year old patient appears stated age. Well-developed patient, in no acute distress. HEAD: Atraumatic. Normocephalic. EYES: No scleral icterus. No injection or drainage. NECK: Trachea midline. Cervical ROM intact. CARDIOVASCULAR: Regular rate and rhythm. RESPIRATORY: ?Nonlabored respirations. ?Speaking in clear, full sentences. ?Clear to auscultation. Breath sounds equal bilaterally. No wheezes, rales, or rhonchi. ?He does have tenderness to palpation of the anterior lateral ribs, there is no crepitus, deformities or bruising. GASTROINTESTINAL: Abdomen soft, non-tender, nondistended. EXTREMITIES: Tenderness to palpation of anterior left knee. Surgical scar present. No erythema or edema. Sensation intact to light touch on bilateral lower extremities, legs are warm, well perfused. Left shoulder and left elbow exposed, no deformities, no tenderness to palpation of left shoulder or left elbow, full flexion-extension of left elbow intact, shoulder abduction is limited to about 90?. 2+ radial pulses BL. BACK: No midline tenderness. NEURO: AOx3. ?Clear speech. ?Moves all 4 extremities appropriately. Ambulates independently with a steady gait. SKIN: No rashes, wounds or ecchymoses. Initial Vital Signs Initial Vital Signs: Vital Signs Temperature 98.1 F 08/05/25 13:40 Pulse Rate 74 08/05/25 13:40 Respiratory Rate 13 08/05/25 13:40 Blood Pressure 154/75 H 08/05/25 13:40 Pulse Oximetry 95 08/05/25 13:40 Oxygen Delivery Method Room Air 10/23/25 13:40 <Bob Lugo MD - Last Filed: 08/05/25 18:04> Initial Vital Signs Initial Vital Signs: Vital Signs Temperature 98.1 F 08/05/25 13:40 Pulse Rate 74 08/05/25 13:40 Respiratory Rate 13 08/05/25 13:40 Blood Pressure 154/75 H 08/05/25 13:40 Pulse Oximetry 95 08/05/25 13:40 Oxygen Delivery Method Room Air 08/05/25 13:40 Course <Joy Valdez PA-C - Last Filed: 08/05/25 18:00> Orders Ordered: ED Orders 08/05/25 14:32 XR knee LT 3V Stat XR ribs LT min 3V w CXR1V Stat Discontinued Medications Ketorolac Tromethamine (Ketorolac 30 Mg/Ml Vial) 30 mg IM NOW ONE Stop: 08/05/25 14:33 Last Admin: 08/05/25 15:20 Dose: 30 mg Documented By: HUGH Lidocaine (Lidocaine 5% Patch) 1 each TOP NOW ONE Stop: 08/05/25 14:33 Last Admin: 08/05/25 15:20 Dose: 1 each Documented By: HUGH Vital Signs Vital signs: Vital Signs - 8 hr 08/05/25 13:40 08/05/25 15:36 Temperature 98.1 F Pulse Rate 74 73 Respiratory Rate 13 Blood Pressure 154/75 H 150/75 H Pulse Oximetry 95 97 Oxygen Delivery Method Room Air Room Air <Bob Lugo MD - Last Filed: 08/05/25 18:04> Orders Ordered: ED Orders 08/05/25 14:32 XR knee LT 3V Stat XR ribs LT min 3V w CXR1V Stat Discontinued Medications Ketorolac Tromethamine (Ketorolac 30 Mg/Ml Vial) 30 mg IM NOW ONE Stop: 08/05/25 14:33 Last Admin: 08/05/25 15:20 Dose: 30 mg Documented By: HUGH Lidocaine (Lidocaine 5% Patch) 1 each TOP NOW ONE Stop: 08/05/25 14:33 Last Admin: 08/05/25 15:20 Dose: 1 each Documented By: HUGH Vital Signs Vital signs: Vital Signs - 8 hr 08/05/25 13:40 08/05/25 15:36 Temperature 98.1 F Pulse Rate 74 73 Respiratory Rate 13 Blood Pressure 154/75 H 150/75 H Pulse Oximetry 95 97 Oxygen Delivery Method Room Air Room Air MDM - Fall <Joy Valdez PA-C - Last Filed: 08/05/25 18:00> Medical Records Attestation: I reviewed the patient's medical records. Imaging Data Left Knee XR: Radiologist's Impression: PROCEDURE: XR KNEE LT 3V INDICATIONS: trip and fall L knee pain TECHNIQUE: 3 views of the knee were acquired. COMPARISON: [facility], , XR KNEE LT 3V, 08/02/2025, 15:30. [facility], , XR KNEE LT 3V, 07/19/2025, 17:28. FINDINGS: Bones: No fractures or dislocations. No suspicious bony lesions. Knee arthroplasty without evidence of hardware complication. Soft tissues: Small knee joint effusion similar to prior. No suspicious soft tissue calcifications. IMPRESSION: No acute bony abnormality or significant effusion. Knee arthroplasty without evidence of hardware complication. Dictated by: Kami Lacy M.D. on 08/05/2025 at 16:02 Approved by: Kaim Lacy M.D. on 08/05/2025 at 16:04 Chest & Ribs XR: Radiologist's Impression: PROCEDURE: XR RIBS LT MIN 3V W CXR1V INDICATIONS: fall L rib pain TECHNIQUE: 2 views of the ribs were acquired, along with a single view chest. COMPARISON: [facility], , XR RIBS LT MIN 3V W CXR1V, 09/09/2023, 13:59. FINDINGS: Surgical changes and devices: None. Bones and chest wall: Partially visualized bilateral shoulder arthroplasty and lower spinal fusion hardware. No fractures or dislocations. No suspicious bony lesions. Overlying soft tissues appear unremarkable. Lungs and pleura: No pleural effusions or pneumothorax. Lungs appear clear. Mediastinum: Mediastinal contours appear normal. Heart size is normal. IMPRESSION: No displaced rib fracture or pneumothorax. Dictated by: Kami Lacy M.D. on 08/05/2025 at 16:04 Approved by: Kami Lacy M.D. on 08/05/2025 at 16:06 [facility] Narrative Medical decision making narrative: 79-year-old male with a past medical history of rheumatoid arthritis, chronic pain, GERD, COPD, hypertension, bullous pemphigoid, total left knee arthroplasty 06/15/[address] Rajan who presents to the emergency department for a ground level fall causing left elbow, left shoulder, left ribs, left knee pain. Differential diagnosis includes but isn't limited to left knee sprain, strain, fracture, dislocation, left rib fracture, contusion, etc. On exam patient is in no acute distress, nontoxic appearing, vital signs appropriate. He does have tenderness to palpation of the anterior left knee in the anterior lateral left ribcage with no deformities bruising or wounds. He does also report subjective pain of the left elbow in the left shoulder however he is good range of motion of the areas and no tenderness to palpation. We will obtain x-ray left knee and chest/ribs, we will treat pain with Toradol and Lidoderm. Knee x-ray reveals no acute bony abnormality, there is a small knee joint effusion which is similar to prior studies. Chest and ribs x-ray reveals no displaced rib fracture or pneumothorax. Patient did request pain control for home. We will trial meloxicam and Lidoderm. Left knee was Jermaine wrapped in the ED by myself. He is following up with pain management next week. He verbalized understanding of all information is agreeable with the plan. Advised PCP follow up and ER return precautions. He is ambulatory and stable for discharge home. Discharge Plan Departure Patient Disposition: Home Clinical Impression: Chronic pain of left knee Fall Qualifiers: Encounter type: initial encounter Qualified Code(s): W19.XXXA - Unspecified fall, initial encounter Instructions: DI for Knee Effusion Activity Restrictions/Additional Instructions: Dear Yonatan, Thank you for coming to the emergency department. Today you were evaluated for injury sustained after fall. Your x-ray did not reveal any broken bones. You do have a small effusion/swelling in the left knee. Please use RICE therapy for your pain in addition to prescribed pain medications. Rest the painful area. Ice the area of pain/swelling for at least 15 minutes, 4x a day. Compress the area of swelling using a brace, wrap, or splint if applied. Elevate the painful or swollen extremity by supporting it above the level of the heart with pillows when sitting or laying. Please follow up with your pain management doctor as scheduled. Please follow up with your primary care doctor within the next 2-3 days for ER follow-up. (If you do not have a PCP you can call [phone]. ?to schedule an appointment with an [facility] Primary Care Provider) IF YOU DEVELOP ANY NEW OR WORSENING SYMPTOMS, RETURN TO THE ER! Please read the attached instructions, they highlight more specific treatments and interventions for you at home. Thank you for letting me participate in your care, Joy Valdez PA-C Prescriptions: New lidocaine [Lidoderm] 5 % adhesive patch,medicated 1 patch topical DAILY Qty: 30 0RF Rx Instructions: leave on most painful area for up to 12 hrs meloxicam 7.5 mg tablet 7.5 mg PO DAILY Qty: 10 0RF No Action methocarbamol 500 mg tablet 500 mg PO 3XD PRN (Reason: muscle spasm) hydromorphone 2 mg tablet 2 mg PO Q3-4H PRN fluoxetine 20 mg capsule 20 mg PO DAILY Qty: 90 3RF Rx Instructions: Take with 10 mg to complete 30 mg dose fluoxetine 10 mg capsule See Rx Instructions .ROUTE .COMPLEX Qty: 90 3RF Dose Instruction: take 1 capsule by mouth once daily WITH 20MG CAP DAILY TOTAL 30 MG DAILY Rx Instructions: take 1 capsule by mouth once daily WITH 20MG CAP DAILY TOTAL 30 MG DAILY metoprolol succinate 100 mg tablet extended release 24 hr 100 mg PO DAILY Qty: 90 3RF lidocaine 5 % adhesive patch,medicated 1 patch topical DAILY Qty: 15 2RF Rx Instructions: leave on most painful area for up to 12 hrs omeprazole 40 mg capsule,delayed release(DR/EC) 40 mg PO DAILY Qty: 90 3RF Rx Instructions: take 1 capsule by mouth once daily triamcinolone acetonide 0.5 % cream 1 applic topical BID Qty: 15 1RF Rx Instructions: Applied to affected areas valacyclovir 1 gram tablet 1,000 mg PO TID Qty: 30 0RF naloxone [Narcan] 4 mg/actuation spray,non-aerosol 1 spray intranasal Q2M Qty: 2 0RF Rx Instructions: spray 1 dose into ONE nostril; alternate nostrils w each dose until help arrives aspirin 81 mg Tablet,Delayed Release (Dr/Ec) 81 mg PO BID Qty: 90 0RF hydrocodone-acetaminophen 5-325 mg tablet 1 tab PO Q4-6H PRN (Reason: pain) Qty: 20 0RF oxycodone 5 mg tablet 5 mg PO Q6H PRN (Reason: pain) Qty: 20 0RF oxycodone 10 mg tablet 10 mg PO Q6H PRN (Reason: pain) Qty: 10 0RF naloxone 4 mg/actuation spray,non-aerosol 4 mg intranasal Q3M PRN (Reason: opioid overdose) Qty: 2 0RF Rx Instructions: spray 1 dose into ONE nostril; alternate nostrils w each dose until help arrives tramadol 50 mg tablet 50 mg PO Q8H PRN (Reason: pain) Qty: 10 0RF ketorolac 10 mg tablet 10 mg PO Q8H PRN (Reason: pain) Qty: 10 0RF Rx Instructions: maximum total duration of 5 days from all oral, intranasal, or parenteral formulations meloxicam 7.5 mg tablet 7.5 mg PO BID PRN (Reason: pain) Qty: 10 0RF umcgwdqxxa-rzpidnjwou-wea-cod [Fioricet with Codeine] 85-655-63-30 mg capsule 1 cap PO Q4H PRN (Reason: pain) Qty: 20 0RF [id number]-obeuiaakst-hlp-cod [Fioricet with Codeine] 85-970-22-30 mg capsule 1 cap PO Q4H PRN (Reason: pain) Qty: 20 0RF ibnkmjziyx-jrvltgapio-ozx-cod [Fioricet with Codeine] 85-604-50-30 mg capsule 1 cap PO Q4H PRN (Reason: pain) Qty: 20 0RF Disabled Parking Permit 1 1 % .Route SEEINSTR Rx Instructions: .RouteValid for 5 years amlodipine 5 mg tablet 5 mg PO DAILY Patient Comments: pt received dose in hospital 11/10/19 early AM admit to [facility] lidocaine [Lidoderm] 5 % adhesive patch,medicated 1 patch topical DAILY PRN (Reason: pain) Qty: 30 0RF Rx Instructions: leave on most painful area for up to 12 hrs meloxicam 7.5 mg tablet 7.5 mg PO DAILY Qty: 10 0RF Referrals: Miscellaneous,[facility] [Primary Care Provider, Medical] Stand Alone Forms: Patient Portal/API ED Sign-out <Bob Lugo MD - Last Filed: 08/05/25 18:04> Cosign ED Attending Cosnickature Attestation: I was immediately available in the department for consultation. ?This documentation has been reviewed and I agree with assessment and plan. Supervised by Bob Lugo MD
--- NOTE | 2025-08-05 14:32 | DI.RAD.S_ITS ---
PROCEDURE: XR RIBS LT MIN 3V W CXR1V INDICATIONS: fall L rib pain TECHNIQUE: 2 views of the ribs were acquired, along with a single view chest. COMPARISON: [facility], CR, XR RIBS LT MIN 3V W CXR1V, 09/09/2023, 13:59. FINDINGS: Surgical changes and devices: None. Bones and chest wall: Partially visualized bilateral shoulder arthroplasty and lower spinal fusion hardware. No fractures or dislocations. No suspicious bony lesions. Overlying soft tissues appear unremarkable. Lungs and pleura: No pleural effusions or pneumothorax. Lungs appear clear. Mediastinum: Mediastinal contours appear normal. Heart size is normal. IMPRESSION: No displaced rib fracture or pneumothorax. Dictated by: Kami Lacy M.D. on 08/05/2025 at 16:04 Approved by: Kami Lacy M.D. on 08/05/2025 at 16:06
--- NOTE | 2025-08-05 14:32 | DI.RAD.S_ITS ---
PROCEDURE: XR KNEE LT 3V INDICATIONS: trip and fall L knee pain TECHNIQUE: 3 views of the knee were acquired. COMPARISON: [facility], CR, XR KNEE LT 3V, 08/02/2025, 15:30. [facility], CR, XR KNEE LT 3V, 07/19/2025, 17:28. FINDINGS: Bones: No fractures or dislocations. No suspicious bony lesions. Knee arthroplasty without evidence of hardware complication. Soft tissues: Small knee joint effusion similar to prior. No suspicious soft tissue calcifications. IMPRESSION: No acute bony abnormality or significant effusion. Knee arthroplasty without evidence of hardware complication. Dictated by: Kami Lacy M.D. on 08/05/2025 at 16:02 Approved by: Kami Lacy M.D. on 08/05/2025 at 16:04
[2025-08-05] MEDS: KETOROLAC 30 MG/ML VIAL IM (15:20)
[2025-08-05] MEDS: LIDOCAINE 5% PATCH 1 EACH TOP (15:20)
[2025-08-05 15:36] VITALS: BP 150/75; PULSE 73; O2SAT 97
== END 2025-08-05 16:35 | disposition home or self-care (01) ==
PROVIDERS: Emergency Provider Physician Assistant
DX: M25.562 Pain in left knee (principal); R07.81 Pleurodynia; M25.522 Pain in left elbow; M25.512 Pain in left shoulder; W18.30XA Fall on same level, unspecified, initial encounter
CPT/HCPCS: 71101; 73562; 96372; 99283; J1885

== ENCOUNTER 2025-08-11 13:46 | Emergency (ER) | payer MEDICARE, OTHER, SELFPAY ==
[2025-06-15 15:10] VITALS: BMI 29.2
[2025-08-11 13:51] VITALS: BP 133/63; PULSE 82; RESP 18; TEMP 37.1; O2SAT 98; BMI 29.7
--- NOTE | 2025-08-11 16:41 | ED.FALL ---
HPI - Fall <Steve Gloria PA-C - Last Filed: 08/11/25 18:19> General Chief Complaint: Fall Stated Complaint: Left knee pain , fell hurt wrists and elbows Time Seen by Provider: 08/11/25 14:28 Source: patient Mode of arrival: Ambulatory History of Present Illness HPI Narrative: 79-year-old male with past medical history rheumatoid arthritis, chronic pain, GERD, COPD, hypertension, bullous pemphigoid presents to the ED status post a GLF fall that he suffered earlier today. Patient reports left-sided knee pain. No numbness, tingling, weakness. Patient had a total knee arthroplasty of that left knee with Dr. Rajan on 06/15/2025 and it has been healing well. 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 Patient was dismissed by his PCP Dr. Snell for breaking his pain management contract. Patient has been evaluated in the ED several times for the knee pain, has been counseled that he does not need opioid pain medications since it as healed well. Patient is in agreement with this. Related Data Home Medications ?Medication ?Instructions ?Recorded ?Confirmed Disabled Parking Permit 1 % .Route SEEINSTR 11/08/20 06/26/25 amlodipine 5 mg tablet 5 mg PO DAILY 11/08/22 07/16/25 hydromorphone 2 mg tablet 2 mg PO Q3-4H PRN 07/16/25 07/16/25 methocarbamol 500 mg tablet 500 mg PO 3XD PRN muscle spasm 07/16/25 07/16/25 Previous Rx's ?Medication ?Instructions ?Recorded valacyclovir 1 gram tablet 1,000 mg PO TID #30 tabs 09/02/23 fluoxetine 10 mg capsule See Rx Instructions .Route 04/20/24 .COMPLEX #90 caps fluoxetine 20 mg capsule 20 mg PO DAILY #90 caps 04/20/24 naloxone 4 mg/actuation nasal 1 spray intranasal Q2M #2 ea 08/05/24 spray (Narcan) metoprolol succinate 100 mg 100 mg PO DAILY #90 tabs 10/15/24 tablet,extended release 24 hr omeprazole 40 mg capsule,delayed 40 mg PO DAILY #90 caps 11/03/24 release triamcinolone acetonide 0.5 % 1 applic topical BID #15 grams 12/04/24 topical cream lidocaine 5 % topical patch 1 patch topical DAILY #15 ea 04/23/25 aspirin 81 mg tablet,delayed 81 mg PO BID #90 tabs 06/16/25 release hydrocodone 5 mg-acetaminophen 325 1 tab PO Q4-6H PRN pain #20 tabs 06/26/25 mg tablet oxycodone 5 mg tablet 5 mg PO Q6H PRN pain #20 tabs 06/29/25 naloxone 4 mg/actuation nasal spray 4 mg intranasal Q3M PRN opioid 07/04/25 overdose #2 ea oxycodone 10 mg tablet 10 mg PO Q6H PRN pain #10 tabs 07/04/25 ketorolac 10 mg tablet 10 mg PO Q8H PRN pain #10 tabs 07/08/25 tramadol 50 mg tablet 50 mg PO Q8H PRN pain #10 tabs 07/08/25 meloxicam 7.5 mg tablet 7.5 mg PO BID PRN pain #10 tabs 07/16/25 lidocaine 5 % topical patch 1 patch topical DAILY PRN pain #30 07/20/25 (Lidoderm) ea meloxicam 7.5 mg tablet 7.5 mg PO DAILY #10 tabs 07/20/25 butalbital 50 mg-acetaminophen 300 1 cap PO Q4H PRN pain #20 caps 07/29/25 mg-caffeine 40 mg-codeine 30 mg cap (Fioricet with Codeine) butalbital 50 mg-acetaminophen 300 1 cap PO Q4H PRN pain #20 caps 07/29/25 mg-caffeine 40 mg-codeine 30 mg cap (Fioricet with Codeine) butalbital 50 mg-acetaminophen 300 1 cap PO Q4H PRN pain #20 caps 07/29/25 mg-caffeine 40 mg-codeine 30 mg cap (Fioricet with Codeine) lidocaine 5 % topical patch 1 patch topical DAILY #30 ea 08/05/25 (Lidoderm) meloxicam 7.5 mg tablet 7.5 mg PO DAILY #10 tabs 08/05/25 Allergies Allergy/AdvReac Type Severity Reaction Status Date / Time cyclobenzaprine (From Allergy Severe Dizziness, Verified 08/05/25 13:50 Flexeril) I bounce off ag ibuprofen AdvReac Intermediate Redness of Verified 08/05/25 13:50 Skin acetaminophen (ACETAMINOPHEN) AdvReac Unknown Can't take Verified 08/05/25 13:50 r/t Hep C; upset stomach Review of Systems <Steve Gloria PA-C - Last Filed: 08/11/25 18:19> Constitutional Constitutional: Denies chills, Denies fatigue, Denies fever(s), Denies frequent falls, Denies lethargy and Denies weakness Eyes Eyes: Denies change in vision, Denies eye discharge, Denies irritation and Denies loss of vision ENT Ears, Nose, Mouth, and Throat: Denies change in voice, Denies dizziness, Denies neck pain, Denies sore throat and Denies throat swelling Cardiovascular Cardiovascular: Denies chest pain, Denies irregular heart rhythm, Denies lightheadedness, Denies palpitations, Denies dyspnea, Denies dyspnea on exertion and Denies orthopnea Respiratory Respiratory: Denies cough, Denies dyspnea, Denies dyspnea on exertion and Denies wheezing Gastrointestinal Gastrointestinal: Denies abdominal pain, Denies change in bowel habits, Denies diarrhea, Denies nausea and Denies vomiting Musculoskeletal Musculoskeletal: Denies neck pain and Denies numbness Comments: L knee pain Integumentary/Breasts Skin/Breast: Denies pruritus, Denies erythema, Denies rash and Denies wounds Neurologic Neurologic: Denies behavioral changes, Denies confusion, Denies dizziness, Denies frequent falls, Denies loss of vision, Denies numbness and Denies weakness Psychiatric Psychiatric: Denies anxiety, Denies behavioral changes, Denies confusion, Denies depression, Denies homicidal ideation and Denies suicidal ideation Endocrine Endocrine: Denies fatigue, Denies flushing and Denies palpitations Hematologic/Lymphatic Hematologic/Lymphatic: Denies easy bruising Allergic/Immunologic Allergic/Immunologic: Denies urticaria, Denies throat swelling and Denies wheezing Patient History <Steve Gloria PA-C - Last Filed: 08/11/25 18:19> Medical History Encounter for pre-operative cardiovascular clearance Bullous pemphigoid Primary osteoarthritis of left knee Moderate substance use disorder Dermatitis Folliculitis Thrush GERD (gastroesophageal reflux disease) Hyponatremia Bronchitis Impaired cognition Left knee pain Chronic diarrhea Eustachian tube dysfunction Seasonal allergic rhinitis Dyspepsia Anemia Tinea Abdominal wall pain in both lower quadrants Constipation Aftercare following left shoulder joint replacement surgery Preoperative clearance Left lateral epicondylitis Adhesive capsulitis Right wrist sprain Oral lesion Colles' fracture Right wrist pain Left shoulder strain Anxiety Fibromyalgia Sinus drainage Chronic ankle pain, bilateral Rheumatoid arthritis Acute exacerbation of chronic bronchitis Foraminal stenosis of lumbar region Peripheral neuropathy Pneumonia (~2018) Impotence (Unknown) Restless leg syndrome (Unknown) Arthritis (Unknown) Chronic pain syndrome (Unknown) Kidney stones (Unknown) Prostate cancer (Unknown) Skin cancer (Unknown) Hepatitis C (Unknown) Hypertension (Unknown) Migraines (Unknown) PTSD (post-traumatic stress disorder) (Unknown) Depression (Unknown) Surgical History 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 Social History marital status: household members: spouse lives independently: Yes occupational status: previously employed Tobacco: How many years used: 20 quit status: has quit before alcohol intake: former substance use type: former substance user and marijuana tobacco type: cigarettes alcohol intake frequency: holidays/special occasions only Exam <Steve Gloria PA-C - Last Filed: 08/11/25 18:19> Narrative Exam Narrative: Const General:?cooperative, healthy appearing and comfortable [facility] Head:?normal to inspection Ears:?hearing grossly normal bilaterally Nose:?external nose normal Face and sinus:?normal facial exam and sinuses nontender Mouth:?oral mucosae normal Throat:?posterior oropharynx normal Eyes General:?appearance normal, both eyes and all related structures Neck Neck:?normal visual inspection and no lymphadenopathy noted Resp Effort & Inspection:?normal respiratory effort Auscultation:?clear to auscultation bilaterally Cardio Rate:?regular rate Rhythm:?regular rhythm Musculoskeletal Tenderness to palpation of the left knee. No deformities, swelling, bruises. Full range of motion. Sensation intact. Neurovascularly intact. Neuro General:?patient alert, patient awake and patient oriented x3 Initial Vital Signs Initial Vital Signs: Vital Signs Temperature 98.7 F 08/11/25 13:51 Pulse Rate 82 08/11/25 13:51 Respiratory Rate 18 08/11/25 13:51 Blood Pressure 133/63 08/11/25 13:51 Pulse Oximetry 98 08/11/25 13:51 Oxygen Delivery Method Room Air 08/11/25 13:51 <Bob Lugo MD - Last Filed: 08/12/25 09:51> Initial Vital Signs Initial Vital Signs: Vital Signs Temperature 98.7 F 08/11/25 13:51 Pulse Rate 82 08/11/25 13:51 Respiratory Rate 18 08/11/25 13:51 Blood Pressure 133/63 08/11/25 13:51 Pulse Oximetry 98 08/11/25 13:51 Oxygen Delivery Method Room Air 08/11/25 13:51 Course <Steve Gloria PA-C - Last Filed: 08/11/25 18:19> Orders Ordered: Discontinued Medications Ketorolac Tromethamine (Ketorolac 30 Mg/Ml Vial) 30 mg IM NOW ONE Stop: 08/11/25 16:45 Last Admin: 08/11/25 16:57 Dose: 30 mg Documented By: HUGH Vital Signs Vital signs: Vital Signs - 8 hr 08/11/25 13:51 Temperature 98.7 F Pulse Rate 82 Respiratory Rate 18 Blood Pressure 133/63 Pulse Oximetry 98 Oxygen Delivery Method Room Air <Bob Lugo MD - Last Filed: 08/12/25 09:51> Orders Ordered: Discontinued Medications Ketorolac Tromethamine (Ketorolac 30 Mg/Ml Vial) 30 mg IM NOW ONE Stop: 08/11/25 16:45 Last Admin: 08/11/25 16:57 Dose: 30 mg Documented By: HUGH Vital Signs Vital signs: Vital Signs - 8 hr 08/11/25 13:51 Temperature 98.7 F Pulse Rate 82 Respiratory Rate 18 Blood Pressure 133/63 Pulse Oximetry 98 Oxygen Delivery Method Room Air MDM - Fall <Steve Gloria PA-C - Last Filed: 10/29/25 18:19> MDM Narrative Medical decision making narrative: 79-year-old male with past medical history rheumatoid arthritis, chronic pain, GERD, COPD, hypertension, bullous pemphigoid presents to the ED status post a GLF fall that he suffered earlier today. Will x-ray the left knee, give Toradol. Will reassess. Knee x-ray without acute findings. Recommend continuing ibuprofen, Tylenol at home. ED return precautions discussed with patient. Patient verbalized understanding. Medical records reviewed: Yes Discharge Plan Departure Patient Disposition: Home Clinical Impression: Chronic knee pain Qualifiers: Laterality: left Qualified Code(s): M25.562 - Pain in left knee Instructions: How to Prevent Falls Activity Restrictions/Additional Instructions: You were evaluated in the emergency department today for knee pain. Your x-ray was normal. You were given an injection of Toradol. You may continue to take ibuprofen, Tylenol at home. Please follow-up with your maintenance painter apprentice as soon as possible. Return to the ED if you have worsening symptoms. Prescriptions: No Action methocarbamol 500 mg tablet 500 mg PO 3XD PRN (Reason: muscle spasm) hydromorphone 2 mg tablet 2 mg PO Q3-4H PRN fluoxetine 20 mg capsule 20 mg PO DAILY Qty: 90 3RF Rx Instructions: Take with 10 mg to complete 30 mg dose fluoxetine 10 mg capsule See Rx Instructions .ROUTE .COMPLEX Qty: 90 3RF Dose Instruction: take 1 capsule by mouth once daily WITH 20MG CAP DAILY TOTAL 30 MG DAILY Rx Instructions: take 1 capsule by mouth once daily WITH 20MG CAP DAILY TOTAL 30 MG DAILY metoprolol succinate 100 mg tablet extended release 24 hr 100 mg PO DAILY Qty: 90 3RF lidocaine 5 % adhesive patch,medicated 1 patch topical DAILY Qty: 15 2RF Rx Instructions: leave on most painful area for up to 12 hrs omeprazole 40 mg capsule,delayed release(DR/EC) 40 mg PO DAILY Qty: 90 3RF Rx Instructions: take 1 capsule by mouth once daily triamcinolone acetonide 0.5 % cream 1 applic topical BID Qty: 15 1RF Rx Instructions: Applied to affected areas valacyclovir 1 gram tablet 1,000 mg PO TID Qty: 30 0RF naloxone [Narcan] 4 mg/actuation spray,non-aerosol 1 spray intranasal Q2M Qty: 2 0RF Rx Instructions: spray 1 dose into ONE nostril; alternate nostrils w each dose until help arrives aspirin 81 mg Tablet,Delayed Release (Dr/Ec) 81 mg PO BID Qty: 90 0RF hydrocodone-acetaminophen 5-325 mg tablet 1 tab PO Q4-6H PRN (Reason: pain) Qty: 20 0RF oxycodone 5 mg tablet 5 mg PO Q6H PRN (Reason: pain) Qty: 20 0RF oxycodone 10 mg tablet 10 mg PO Q6H PRN (Reason: pain) Qty: 10 0RF naloxone 4 mg/actuation spray,non-aerosol 4 mg intranasal Q3M PRN (Reason: opioid overdose) Qty: 2 0RF Rx Instructions: spray 1 dose into ONE nostril; alternate nostrils w each dose until help arrives tramadol 50 mg tablet 50 mg PO Q8H PRN (Reason: pain) Qty: 10 0RF ketorolac 10 mg tablet 10 mg PO Q8H PRN (Reason: pain) Qty: 10 0RF Rx Instructions: maximum total duration of 5 days from all oral, intranasal, or parenteral formulations meloxicam 7.5 mg tablet 7.5 mg PO BID PRN (Reason: pain) Qty: 10 0RF scducuacvm-ynrchadrrh-cej-cod [Fioricet with Codeine] 05-207-16-30 mg capsule 1 cap PO Q4H PRN (Reason: pain) Qty: 20 0RF siwlrpoxyt-xtxsjheyri-cia-cod [Fioricet with Codeine] 10-626-06-30 mg capsule 1 cap PO Q4H PRN (Reason: pain) Qty: 20 0RF azzuiaiong-rtgrhsckdu-cjp-cod [Fioricet with Codeine] 16-706-73-30 mg capsule 1 cap PO Q4H PRN (Reason: pain) Qty: 20 0RF lidocaine [Lidoderm] 5 % adhesive patch,medicated 1 patch topical DAILY Qty: 30 0RF Rx Instructions: leave on most painful area for up to 12 hrs meloxicam 7.5 mg tablet 7.5 mg PO DAILY Qty: 10 0RF Disabled Parking Permit 1 1 % .Route SEEINSTR Rx Instructions: .RouteValid for 5 years amlodipine 5 mg tablet 5 mg PO DAILY Patient Comments: pt received dose in hospital 11/10/19 early AM admit to [facility] lidocaine [Lidoderm] 5 % adhesive patch,medicated 1 patch topical DAILY PRN (Reason: pain) Qty: 30 0RF Rx Instructions: leave on most painful area for up to 12 hrs meloxicam 7.5 mg tablet 7.5 mg PO DAILY Qty: 10 0RF Stand Alone Forms: Patient Portal/API ED Sign-out <Bob Lugo MD - Last Filed: 08/12/25 09:51> Cosign ED Attending Cosignature Attestation: I was immediately available in the department for consultation. ?This documentation has been reviewed and I agree with assessment and plan. Supervised by Bob Lugo MD
--- NOTE | 2025-08-11 16:44 | DI.RAD.S_ITS ---
PROCEDURE: XR KNEE LT 3V INDICATIONS: fall TECHNIQUE: 3 views of the knee were acquired. COMPARISON: [facility], CR, XR KNEE LT 3V, 08/05/2025, 14:37. FINDINGS: Bones: No fractures or dislocations. No suspicious bony lesions. Status post total knee arthroplasty. Prosthetic elements appear to be in appropriate position. No evidence of hardware complication. Soft tissues: No joint effusion. No suspicious soft tissue calcifications. IMPRESSION: No acute bony abnormality or significant effusion. Approved by: Kaya Leigh M.D.,Ph.D. on 08/11/2025 at 18:06
[2025-08-11] MEDS: KETOROLAC 30 MG/ML VIAL IM (16:57)
== END 2025-08-11 18:35 | disposition home or self-care (01) ==
PROVIDERS: Emergency Provider Student in an Organized Health Care Education/Training Program
DX: M25.562 Pain in left knee (principal); W18.30XA Fall on same level, unspecified, initial encounter; Z96.652 Presence of left artificial knee joint
CPT/HCPCS: 73562; 96372; 99283; J1885